=== PATIENT | female | born 1965 | race African-American/Black ===

== ENCOUNTER 2016-08-10 17:11 | Inpatient (IN) | payer MEDICARE, MEDICAID ==
[~2016-08-10] VITALS: Ht 162.6 cm; Wt 46.3 kg
[~2016-08-10 17:11] MED LIST: AZIT600 PO; FLUC100T41 PO; KPHOS250 PO; LEVA750T PO; PROT40TA PO; SULF-154 PO
[2016-08-10 17:13] VITALS: BP 112/65; PULSE 88; RESP 14; TEMP 98.3; O2SAT 96
[2016-08-10] MEDS ORDERED: SODIUM CHLOR 0.9% 1000 ML INJ 1,000 ML IV SCH (19:05)
[2016-08-10] MEDS ORDERED: SODIUM CHLORIDE 0.9% FLUSH 5 ML FLUSH IVF PRN (19:15)
[2016-08-10] MEDS ORDERED: MORPHINE SULFATE 4 MG/ML INJ IV PUSH ONE (19:15)
[2016-08-10] MEDS ORDERED: ONDANSETRON HCL 4 MG/2 ML VIAL IVP ONE (19:15)
--- NOTE | 2016-08-10 19:20 | PD ---
HPI Chief Complaint: Abdominal Pain Time Seen by Provider: 19:00 Travel History International Travel<30 days: No Contact w/Intl Traveler<30days: No Traveled to known affect area: No History of Present Illness HPI The patient is a 51 year old female with a prior medical history of HIV/AIDS who presents to the [facility] emergency department with a history of abdominal pain that began 3 days ago. The patient reports that the abdominal pain is generalized. She reports that it is constant and sharp in character. She denies any alleviating factors. She reports that it seems to be worse with eating. She reports that she's had vomiting times one today. She reports that she's had diarrhea times one today. She denies having any blood in her stool or black or tarry stools. She reports that last time that she tried taking her retroviral medication was a week ago. She reports that she's been on it for the last 3 years, however she has not ever been able to keep it down. She does not know what her last CD4 count or viral load was. She reports that her primary care physician is Dr. Michelle. The patient denies having any known fevers. She reports that she has had a cough productive of black sputum. She reports that she's had chest pain and shortness of breath over the last 3 days. The patient denies any recent fevers fever, neck pain, urinary symptoms, or new neurologic symptoms. [facility] Past Medical History Narrative Medical The patient's past medical history is significant for HIV/AIDS, history of seizure disorder, history of a cerebrovascular accident with reported residual weakness of the right lower extremity, left upper extremity. She reports that she uses a cane for assistance with gait. She has a history of migraine headaches, history of a reported liver infection which she was recently over the last few months placed on antibiotic for. Arthritis: No Asthma: No Autoimmune Disease: Yes Blood Disorders: No Anxiety: No Depression: No Heart Rhythm Problems: No Cancer: No Cardiovascular Problems: No High Cholesterol: No Chemotherapy: No Chest Pain: No Congestive Heart Failure: No COPD: No Cerebrovascular Accident: Yes (cva) Diabetes: No Diminished Hearing: No Endocrine: No Gastrointestinal Disorders: Yes (RECENT ABD PAIN AND NAUSEA/ diarrhea) GERD: No Genitourinary: No Headaches: Yes Hiatal Hernia: No Immune Disorder: Yes (HIV) Kidney Stones: No Musculoskeletal: No Neurologic: Yes Reproductive: No Respiratory: No Migraines: Yes Radiation Therapy: No Renal Failure: No Seizures: Yes Sickle Cell Disease: No Sleep Apnea: No Thyroid Disease: No Ulcer: No Influenza Vaccination: No ?: Not Menopausal: Yes : 2 Para: 0 Miscarriage: 1 : 1 Ectopic : Yes Past Surgical History Narrative Surgical the patient's past surgical history is significant for an ectopic resection. Abdominal Surgery: Yes (EXP. LAP.) AICD: No Arteriovenous Shunt: No Cardiac Surgery: No Section: Yes Ear Surgery: No Endocrine Surgery: No Eye Surgery: No Genitourinary Surgery: No Gynecologic Surgery: Yes Insulin Pump: No Joint Replacement: No Oral Surgery: No Pacemaker: No Thoracic Surgery: No Other Surgery: Yes Social History Alcohol Use: Yes (OCCAS) Tobacco Use: Yes (one pack per week) Substance Use: Yes (COCAINE, ALTHOUGH PT DENIES) Allergies-Medications (Allergen,Severity, Reaction): Coded Allergies: No Known Allergies (Verified , 08/10/16) Reported Meds & Prescriptions Reported Meds & Active Scripts Active No Active Prescriptions or Reported Medications Review of Systems General / Constitutional: No: Fever Eyes: No: Visual changes HENT: No: Headaches Cardiovascular: Positive: Chest Pain or Discomfort, Dyspnea on exertion Respiratory: Positive: Cough, Shortness of Breath Gastrointestinal: Positive: Nausea, Vomiting, Diarrhea, Abdominal Pain, Indigestion, Loss of Appetite Genitourinary: No: Urgency, Frequency, Dysuria Musculoskeletal: No: Pain Skin: No Rash Neurologic: No: Weakness Psychiatric: No: Depression Endocrine: No: Polydipsia Hematologic/Lymphatic: No: Easy Bruising Physical Exam Narrative General: The patient is a well-developed, cachectic appearing female in no acute distress. Head and Neck exam: Head is normocephalic atraumatic. Eyes: Pupils are equal round and reactive to light. Nose: Midline septum with pink mucous membranes Mouth: Dentition unremarkable. Moist mucus membranes. Posterior oropharynx is mildly erythematous. No tonsillar hypertrophy. Uvula midline. Airway patent. The patient's tongue on examination has patchy areas of white, suspicious for thrush Neck: No palpable lymphadenopathy. No nuchal rigidity. No thyromegaly. Cardiovascular: Regular rate and rhythm without murmurs, gallops, or rubs. Lungs: Clear to auscultation bilaterally. No wheezes, rhonchi, or rales. Abdomen: Slightly distended, tender to palpation in all 4 quadrants of abdomen. The patient has no focal area of tenderness. Negative Ferro's sign. Decreased bowel sounds are audible. Extremities: No clubbing, cyanosis, or edema. 2+ pulses in all 4 extremities. No calf tenderness on palpation. Back: No spinous process tenderness to palpation. No costovertebral angle tenderness to palpation. Neurologic Exam: Grossly nonfocal. Skin Exam: No rash noted. Intact skin that is warm and dry. Data Data Last Documented VS Vital Signs Date Time Temp Pulse Resp B/P Pulse Ox O2 Delivery O2 Flow Rate FiO2 08/10/16 20:55 72 18 122/78 99 Room Air 08/10/16 17:13 98.3 Orders Complete Blood Count With Diff (08/10/16 19:05) Comprehensive Metabolic Panel (08/10/16 19:05) Lipase (08/10/16 19:05) Lactic Acid (08/10/16 19:05) Prothrombin Time / Inr (Pt) (08/10/16 19:05) Act Partial Throm Time (Ptt) (08/10/16 19:05) Urinalysis - C+S If Indicated (08/10/16 19:05) Iv Access Insert/Monitor (08/10/16 19:05) Ecg Monitoring (08/10/16 19:05) Oximetry (08/10/16 19:05) Morphine Inj (Morphine Inj) (08/10/16 19:15) Ondansetron Inj (Zofran Inj) (08/10/16 19:15) Sodium Chlor 0.9% 1000 Ml Inj (Ns 1000 M (08/10/16 19:05) Sodium Chloride 0.9% Flush (Ns Flush) (08/10/16 19:15) Electrocardiogram (08/10/16 19:05) Creatine Kinase (Cpk) (08/10/16 19:05) Ckmb (Isoenzyme) Profile (08/10/16 19:05) Troponin I (08/10/16 19:05) B-Type Natriuretic Peptide (08/10/16 19:05) Blood Culture (08/10/16 19:05) C-Reactive Protein (Crp) (08/10/16 19:05) Chest, Single Ap (08/10/16 19:05) Urine Culture (08/10/16 20:18) Ct Abd/Pel W Iv Contrast(Rout) (08/10/16 21:07) Iohexol 350 Inj (Omnipaque 350 Inj) (08/10/16 21:30) Admit Order (Ed Use Only) (08/10/16 22:14) Labs Laboratory Tests Test 08/10/16 08/10/16 19:17 20:18 White Blood Count 5.0 TH/MM3 Red Blood Count 3.35 MIL/MM3 Hemoglobin 11.0 GM/DL Hematocrit 31.6 % Mean Corpuscular Volume 94.3 FL Mean Corpuscular Hemoglobin 32.9 PG Mean Corpuscular Hemoglobin 34.9 % Concent Red Cell Distribution Width 13.8 % Platelet Count 121 TH/MM3 Mean Platelet Volume 10.6 FL Neutrophils (%) (Auto) 81.3 % Lymphocytes (%) (Auto) 7.7 % Monocytes (%) (Auto) 8.0 % Eosinophils (%) (Auto) 2.2 % Basophils (%) (Auto) 0.8 % Neutrophils # (Auto) 4.1 TH/MM3 Lymphocytes # (Auto) 0.4 TH/MM3 Monocytes # (Auto) 0.4 TH/MM3 Eosinophils # (Auto) 0.1 TH/MM3 Basophils # (Auto) 0.0 TH/MM3 CBC Comment DIFF FINAL Differential Comment Prothrombin Time 15.5 SEC Prothromb Time International 1.4 RATIO Ratio Activated Partial 36.3 SEC Thromboplast Time Sodium Level 137 MEQ/L Potassium Level 3.5 MEQ/L Chloride Level 102 MEQ/L Carbon Dioxide Level 29.9 MEQ/L Anion Gap 5 MEQ/L Blood Urea Nitrogen 6 MG/DL Creatinine 0.68 MG/DL Estimat Glomerular Filtration 110 ML/MIN Rate Random Glucose 79 MG/DL Lactic Acid Level 1.6 mmol/L Calcium Level 7.8 MG/DL Total Bilirubin 2.0 MG/DL Aspartate Amino Transf 120 U/L (AST/SGOT) Alanine Aminotransferase 46 U/L (ALT/SGPT) Alkaline Phosphatase 279 U/L Total Creatine Kinase 49 U/L Troponin I LESS THAN 0.02 NG/ML C-Reactive Protein 2.30 MG/DL B-Type Natriuretic Peptide 65 PG/ML Total Protein 8.1 GM/DL Albumin 1.8 GM/DL Lipase 59 U/L Urine Color BROWN Urine Turbidity HAZY Urine pH 6.0 Urine Specific [place] 1.025 Urine Protein 30 mg/dL Urine Glucose (UA) NEG mg/dL Urine Ketones NEG mg/dL Urine Occult Blood NEG Urine Nitrite NEG Urine Bilirubin MOD Urine Urobilinogen GREATER THAN 12.0 MG/DL Urine Leukocyte Esterase SMALL Urine RBC 1 /hpf Urine WBC 8 /hpf Urine Squamous Epithelial 1 /hpf Cells Urine Mucus MANY /lpf Microscopic Urinalysis Comment CATH-CULTURE IND MDM Medical Decision Making Medical Screen Exam Complete: Yes Emergency Medical Condition: Yes Medical Record Reviewed: Yes Interpretation(s) Last Impressions Abdomen/Pelvis CT 08/10/162106 Signed Impressions: Service Date/Time: Wednesday, August 10, 2016 21:23 - CONCLUSION: 1. Moderate ascites with varicosities. 2. Inhomogeneous liver all suggesting cirrhosis. Yosef Puente MD FACR Chest X-Ray 08/10/161904 Signed Impressions: Service Date/Time: Wednesday, August 10, 2016 19:31 - CONCLUSION: Negative chest for acute disease. Yosef Puente MD FACR Differential Diagnosis Acute coronary syndrome, versus electrolyte abnormality, versus dehydration, versus ischemic bowel, versus pancreatitis, versus pyelonephritis, versus pneumonia, versus sepsis Narrative Course During the course of the patients emergency department visit, the patients history, examination, and differential diagnosis were reviewed with the patient. The patient had IV access obtained and blood work sent for analysis. An EKG was done on arrival. The patient states on a skip pitman with oximetry and blood pressure monitoring. The patient had an EKG that shows a sinus rhythm heart rate is 75, no acute ST segment elevation, nonspecific T- wave abnormalities with T waves inverted in V2, V3. The patient was provided normal saline 1 L IV fluid bolus, Zofran 4 mg IV. The patients laboratory studies were reviewed and remarkable for a white count of 5, hemoglobin 11, platelets 121 with 81.3 neutrophils, lymphocytes 7.7., CMP is remarkable for BUN of 6, calcium 7.8, total bilirubin 2.0, AST 120, alkaline phosphatase 279, C-reactive protein is 2.30, lipase 59, BNP is a 65, initial set of cardiac enzymes are negative. Lactic acid level is 1.6. According to the record the patient has a history of elevated liver enzymes in the past, however the only hepatitis testing done previously was negative and 2001. Urinalysis shows brown urine 30 protein and moderate bilirubin greater than 12 urobilinogen, small leukocyte esterase 8 WBCs, many mucus. This is a catheterized urine. Radiology studies were reviewed and remarkable for a chest x-ray that shows no acute abnormality according to the reading radiologist. CT scan of the abdomen and pelvis revealed moderate ascites inhomogeneous liver also suggests cirrhosis. The patient will be admitted to the hospital for a rule out serial cardiac enzyme protocol for chest pain and worsening ascites for consideration of paracentesis. The patients results were discussed with the patient, including the plan of care. I explained that further testing and/ or monitoring is indicated based on the patients history, examination, and/ or laboratory findings. Therefore, I recommended admission for additional evaluation. The patient expressed understanding and was agreeable with this plan. The patient was admitted to the hospital in stable condition and sent to a bed under the care of [facility]. Diagnosis Primary Impression: Chest pain, rule out acute myocardial infarction Additional Impressions: Ascites Qualified Code: R18.8 - Other ascites Abdominal pain Qualified Code: R10.84 - Generalized abdominal pain Scripts No Active Prescriptions or Reported Meds Betty Johnson MD Aug 10, 2016 19:20
[2016-08-10 19:25] VITALS: O2SAT 98
[2016-08-10 19:39] LABS: AUTOMATED NEUTROPHIL # 4.1 TH/MM3 (1.8-7.7); BASOPHIL % 0.8 % (0.0-2.0); EOSINOPHIL # 0.1 TH/MM3 (0-0.4); EOSINOPHIL % 2.2 % (0.0-4.0); HEMATOCRIT 31.6 % (35.0-46.0); HEMO FLAGS DIFF FINAL; LYMPH % 7.7 % (9.0-44.0); LYMPHOCYTE # 0.4 TH/MM3 (1.0-4.8); MEAN CELL VOLUME 94.3 FL (80.0-100.0); MEAN CORPUSCULAR HEMOGLOBIN 32.9 PG (27.0-34.0); MEAN CORPUSCULAR HGB CONC 34.9 % (32.0-36.0); NEUT % 81.3 % (16.0-70.0); PLATELET COUNT 121 TH/MM3 (150-450); RED BLOOD COUNT 3.35 MIL/MM3 (4.00-5.30); RED CELL DISTRIBUTION WIDTH 13.8 % (11.6-17.2)
[2016-08-10 19:53] LABS: APTT (PATIENT) 36.3 SEC (24.3-30.1); INTERNATIONAL NORMALIZED RATIO 1.4 RATIO; PROTHROMBIN TIME - PATIENT 15.5 SEC (9.8-11.6)
[2016-08-10 20:01] LABS: ANION GAP 5 MEQ/L (5-15); AST (GOT) 120 U/L (15-37); BICARBONATE 29.9 MEQ/L (21.0-32.0); BLOOD UREA NITROGEN 6 MG/DL (7-18); CHLORIDE 102 MEQ/L (98-107); GLOMERULAR FILTRATION RATE 110 ML/MIN (>89); POTASSIUM 3.5 MEQ/L (3.5-5.1); SODIUM (NA) 137 MEQ/L (136-145)
--- NOTE | 2016-08-10 20:01 | RADRPT ---
EXAM DATE/TIME: 08/10/2016 19:31 [facility] COMPARISON: CHEST SINGLE AP, April 16, 2014, 16:51. INDICATIONS : Chest pain and abdominal pain. MEDICAL HISTORY : HIV SURGICAL HISTORY : None. ENCOUNTER: Initial ACUITY: 2 days PAIN SCORE: 7/10 LOCATION: Bilateral chest FINDINGS: There is an apparent nipple shadow in the right base. The left lung is clear. Heart and pulmonary v ascularity are normal. Portions of the bony skeleton visualized are unremarkable. CONCLUSION: Negative chest for acute disease. Yosef Puente MD FACR on August 10, 2016 at 19:42 Board Certified Radiologist. This report was verified electronically.
[2016-08-10 20:06] LABS: ALKALINE PHOSPHATASE 279 U/L (45-117); ALT (GPT) 46 U/L (10-53)
[2016-08-10 20:11] LABS: CREATINE KINASE 49 U/L (26-192)
[2016-08-10 20:36] LABS: BLOOD, URINE NEG (NEG); GLUCOSE,URINE NEG (NEG); KETONE, URINE NEG (NEG); MUCUS URINE MANY /lpf (OCC); NITRITE,URINE NEG (NEG); SQUAMOUS EPITHELIAL CELL URINE 1 /hpf (0-5)
[2016-08-10 20:38] LABS: URINE COLOR BROWN (YELLW/STRAW)
[2016-08-10 20:39] LABS: COMMENT (UR) CATH-CULTURE IND; CULTURE IF INDICATED CATH CULTURE IND
[2016-08-10 20:55] VITALS: BP 122/78; PULSE 72; RESP 18; O2SAT 99
[2016-08-10] MEDS ORDERED: IOHEXOL 350 MG/ML 10 ML VIAL (for RAD DIAG) IV ONE (21:30)
--- NOTE | 2016-08-10 21:56 | RADRPT ---
EXAM DATE/TIME: 08/10/2016 21:23 [facility] COMPARISON: CT ABDOMEN & PELVIS W CONTRAST, January 01, 2016, 14:09. INDICATIONS : Diffuse abdominal pain with nausea and vomiting. IV CONTRAST: 80 cc Omnipaque 350 (iohexol) IV ORAL CONTRAST: No oral contrast ingested. RADIATION DOSE: 9.96 CTDIvol (mGy) MEDICAL HISTORY : Ectopic . SURGICAL HISTORY : section. Exploratory laparotomy. ENCOUNTER: Initial ACUITY: 3 days PAIN SCALE: 7/10 LOCATION: Diffuse abdomen/pelvis TECHNIQUE: Volumetric scanning of the abdomen and pelvis was performed. Using automated exposure control and adjustment of the mA and/or kV according to patient size, radiation dose was kept as low as reasonably achievable to obtain optimal diagnostic quality images. FINDINGS: Minimal bibasilar parenchymal changes are noted worse on the left than the right with a small left pleural effusion. The liver is inhomogeneous. Gallstone is present in the gallbladder. Spleen is unremarkable. Abdom inal wall varicosities are evident. There is symmetrical renal function. Moderate ascites is evident. In the pelvis, pelvic contents are unremarkable. CONCLUSION: 1. Moderate ascites with varicosities. 2. Inhomogeneous liver all suggesting cirrhosis. Yosef Puente MD FACR on August 10, 2016 at 21:39 Board Certified Radiologist. This report was verified electronically.
[2016-08-10] MEDS ORDERED: SODIUM CHLORIDE 0.9% FLUSH 5 ML FLUSH FLUSH PRN (22:45)
[2016-08-10] MEDS ORDERED: CALCIUM GLUCONATE 10% 1 GM/10 ML VIAL IV PUSH ONE (22:45)
[2016-08-10] MEDS ORDERED: POTASSIUM CHLORIDE 25 MEQ EFFERVESCENT TAB PO ONE (22:45)
[2016-08-10] MEDS ORDERED: NALOXONE HCL 0.4 MG/ML AMP IV PRN (22:45)
[2016-08-10] MEDS ORDERED: CALCIUM GLUCONATE INJ 1 GM in DEXTROSE 5% IN WATER 100ML INJ 100 ML IV ONE ×2 (22:46)
[2016-08-10 23:24] VITALS: BP 131/77; PULSE 71; RESP 14; O2SAT 97
[2016-08-11 01:47] VITALS: BP 103/64; PULSE 73; RESP 18; TEMP 98.1; O2SAT 96
[2016-08-11 01:48] LABS: CREATINE KINASE 49 U/L (26-192)
[2016-08-11 01:53] VITALS: PULSE 78
[2016-08-11 07:23] LABS: BASOPHIL % 0.8 % (0.0-2.0); EOSINOPHIL # 0.2 TH/MM3 (0-0.4); EOSINOPHIL % 3.6 % (0.0-4.0); HEMATOCRIT 26.6 % (35.0-46.0); LYMPHOCYTE # 0.5 TH/MM3 (1.0-4.8); MEAN CELL VOLUME 95.7 FL (80.0-100.0); MEAN CORPUSCULAR HEMOGLOBIN 32.5 PG (27.0-34.0); MONO % 10.3 % (0.0-8.0); NEUT % 76.3 % (16.0-70.0); PLATELET COUNT 91 TH/MM3 (150-450); RED BLOOD COUNT 2.78 MIL/MM3 (4.00-5.30); RED CELL DISTRIBUTION WIDTH 13.8 % (11.6-17.2); WHITE BLOOD COUNT 5.3 TH/MM3 (4.0-11.0)
[2016-08-11 07:24] VITALS: BP 105/66; PULSE 81; RESP 18; TEMP 98.9; O2SAT 98
[2016-08-11 07:28] LABS: HEMO FLAGS AUTO DIFF
[2016-08-11 08:00] VITALS: PULSE 82
[2016-08-11 08:00] LABS: CREATINE KINASE 38 U/L (26-192)
[2016-08-11 08:48] LABS: SCAN/DIFF AUTO DIFF CONFIRMED
[2016-08-11 08:49] LABS: PLATELET ESTIMATE SMEAR LOW (NORMAL); PLATELET MORPHOLOGY NORMAL (NORMAL); TARGET CELLS 1+ (NORMAL)
[2016-08-11] MEDS: SODIUM CHLORIDE 0.9% FLUSH 5 ML FLUSH FLUSH SCH ×2 (09:11→21:46)
[2016-08-11] MEDS: PANTOPRAZOLE SODIUM 40 MG VIAL IV PUSH SCH (09:11)
[2016-08-11] MEDS ORDERED: diphenhydrAMINE HCL 25 MG CAP PO ONE (11:15)
[2016-08-11] MEDS ORDERED: ONDANSETRON HCL 4 MG/2 ML VIAL IV PUSH PRN (11:15)
--- NOTE | 2016-08-11 11:15 | HHI.HP ---
HPI Service [facility] Primary Care Physician Jeremiah Garcia MD Admission Diagnosis Abdominal pain with ascites, cp ro mi Diagnoses: Chief Complaint: Abdominal pain Travel History International Travel<30 Days: No Contact w/Intl Traveler <30 Da: No Traveled to Known Affected Are: No History of Present Illness 51-year-old female with a past medical history of HIV and GERD who presented with 4 days of abdominal pain. The patient reports that she began having generalized abdominal pain or days ago. She was having vomiting 4 days ago and has not been able to tolerate oral intake or medications since then due to persistent nausea. She had loose stools 3 days ago, no BM since then. Subjective chills, no fevers. She had some lower middle chest discomfort when she was vomiting 4 days ago, no chest pain since then. Denies any shortness of breath. She reports itching on her back. She states a few weeks ago she saw her PCP, Dr. Garcia, who told her that she had a liver infection and gave her a pill, doesn't recall what it was. She denies any history of hepatitis. She is not a great historian. Review of Systems ROS Limitations: Poor Historian Other History limited by poor historian. However 10 point review of systems performed and was negative except as stated in the history of present illness. Past Family Social History Past Medical History HIV Gastritis Past Surgical History History of ex lap for tubal 20 years ago Reported Medications Antiretrovirals Allergies: Coded Allergies: No Known Allergies (Verified , 08/10/16) Active Ordered Medications Current Medications Medications (Trade) Dose Ordered Sig/Sue Route Start Time Stop Time Status Last Admin (NS Flush) 2 ml UNSCH PRN FLUSH 08/10/16 22:45 (NS Flush) 2 ml BID FLUSH 08/11/16 09:00 08/11/16 09:11 (Narcan Inj) 0.4 mg UNSCH PRN IV 08/10/16 22:45 (Protonix Inj) 40 mg Q24H IV PUSH 08/11/16 08:00 08/11/16 09:11 (Zofran Inj) 4 mg Q6HR PRN IV PUSH 08/11/16 11:15 UNV (Benadryl) 25 mg ONCE ONCE PO 08/11/16 11:15 08/11/16 11:16 UNV (Benadryl) 25 mg Q6H PRN PO 08/11/16 11:15 UNV Nicotine 1 patch 1 patch DAILY TD 08/11/16 11:15 UNV (D5-1/2 NS + KCl 20 Meq Inj) 1,000 ml @ 50 mls/hr Q20H IV 08/11/16 12:09 UNV Family History Mother of alcoholism Social History Occasional tobacco use Occasional alcohol use Denies any substance use Physical Exam Vital Signs Vital Signs Date Time Temp Pulse Resp B/P Pulse Ox O2 Delivery O2 Flow Rate FiO2 08/11/16 08:00 82 08/11/16 07:24 98.9 81 18 105/66 98 08/11/16 01:53 78 08/11/16 01:47 98.1 73 18 103/64 96 08/10/16 23:25 14 08/10/16 23:24 71 14 131/77 97 Room Air 08/10/16 20:55 72 18 122/78 99 Room Air 08/10/16 19:25 98 Room Air 08/10/16 17:13 98.3 88 14 112/65 96 Room Air Physical Exam GENERAL: Well-developed thin cachectic patient. In no acute distress. SKIN: Warm and dry. Excoriations on the back and shoulders. HEENT: Normocephalic. Pupils equal and round. Mucous membranes pink and moist. CARDIOVASCULAR: Regular rate and rhythm. No murmur appreciated. RESPIRATORY: No accessory muscle use. Clear to auscultation. Breath sounds equal bilaterally. GASTROINTESTINAL: Abdomen soft, non-tender, mildly distended. Bowel sounds x4. MUSCULOSKELETAL: No obvious deformities. No clubbing or cyanosis. No edema. NEUROLOGICAL: Awake and alert. No focal neurological deficits. Moves upper and lower extremities spontaneously. Normal speech. PSYCHIATRIC: Appropriate mood and affect; insight and judgment fair to normal. Laboratory Laboratory Tests Test 08/10/16 08/10/16 08/11/16 08/11/16 19:17 20:18 00:18 07:06 White Blood Count 5.0 5.3 Red Blood Count 3.35 2.78 Hemoglobin 11.0 9.1 Hematocrit 31.6 26.6 Mean Corpuscular Volume 94.3 95.7 Mean Corpuscular Hemoglobin 32.9 32.5 Mean Corpuscular Hemoglobin 34.9 34.0 Concent Red Cell Distribution Width 13.8 13.8 Platelet Count 121 91 Mean Platelet Volume 10.6 9.5 Neutrophils (%) (Auto) 81.3 76.3 Lymphocytes (%) (Auto) 7.7 9.0 Monocytes (%) (Auto) 8.0 10.3 Eosinophils (%) (Auto) 2.2 3.6 Basophils (%) (Auto) 0.8 0.8 Neutrophils # (Auto) 4.1 4.0 Lymphocytes # (Auto) 0.4 0.5 Monocytes # (Auto) 0.4 0.5 Eosinophils # (Auto) 0.1 0.2 Basophils # (Auto) 0.0 0.0 CBC Comment DIFF FINAL AUTO DIFF Differential Comment AUTO DIFF CONFIRMED Prothrombin Time 15.5 Prothromb Time International 1.4 Ratio Activated Partial 36.3 Thromboplast Time Sodium Level 137 Potassium Level 3.5 Chloride Level 102 Carbon Dioxide Level 29.9 Anion Gap 5 Blood Urea Nitrogen 6 Creatinine 0.68 Estimat Glomerular Filtration 110 Rate Random Glucose 79 Lactic Acid Level 1.6 Calcium Level 7.8 Total Bilirubin 2.0 Aspartate Amino Transf 120 (AST/SGOT) Alanine Aminotransferase 46 (ALT/SGPT) Alkaline Phosphatase 279 Total Creatine Kinase 49 49 38 Troponin I LESS THAN 0.02 LESS THAN 0.02 LESS THAN 0.02 C-Reactive Protein 2.30 B-Type Natriuretic Peptide 65 Total Protein 8.1 Albumin 1.8 Lipase 59 Urine Color BROWN Urine Turbidity HAZY Urine pH 6.0 Urine Specific [place] 1.025 Urine Protein 30 Urine Glucose (UA) NEG Urine Ketones NEG Urine Occult Blood NEG Urine Nitrite NEG Urine Bilirubin MOD Urine Urobilinogen GREATER THAN 12.0 Urine Leukocyte Esterase SMALL Urine RBC 1 Urine WBC 8 Urine Squamous Epithelial 1 Cells Urine Mucus MANY Microscopic Urinalysis Comment CATH-CULTURE IND Platelet Estimate LOW Platelet Morphology Comment NORMAL Target Cells 1+ Date/Time Procedure Status Source Growth 08/10/16 20:18 Urine Culture Received Urine Catheterized Urine Pending 08/10/16 19:17 Aerobic Blood Culture Received Blood Peripheral Pending 08/10/16 19:17 Anaerobic Blood Culture Received Blood Peripheral Pending Result Diagram: 08/11/16 0706 08/10/16 1917 Imaging Last Impressions Abdomen/Pelvis CT 08/10/162106 Signed Impressions: Service Date/Time: Wednesday, August 10, 2016 21:23 - CONCLUSION: 1. Moderate ascites with varicosities. 2. Inhomogeneous liver all suggesting cirrhosis. Yosef Puente MD FACR Chest X-Ray 08/10/161904 Signed Impressions: Service Date/Time: Wednesday, August 10, 2016 19:31 - CONCLUSION: Negative chest for acute disease. Yosef Puente MD FACR Assessment and Plan Problem List: (1) HIV (human immunodeficiency virus infection) ICD Code: Z21 Status: Chronic (2) Severe protein-calorie malnutrition ICD Code: E43 Status: Chronic (3) Chronic gastritis ICD Code: K29.50 Status: Chronic (4) Abdominal pain ICD Code: R10.9 Status: Acute Assessment and Plan 51-year-old female with a past medical history of HIV and GERD who presented with 4 days of abdominal pain Abdominal pain: Abdomen pelvis CT showed moderate ascites with varus varicosities and inhomogenous liver Labs showed bilirubin 2.0, AST 120, alkaline phosphatase 279 -Check ultrasound to assess for drainable ascites, IR consult for diagnostic and therapeutic tap if possible -Hepatitis panel pending, previously negative -Empiric coverage for SBP with IV ceftriaxone -Previous EGD pathology reviewed, showed chronic gastritis, IV PPI -IVF until tolerating intake better, antiemetics as needed -Consult GI -Follow up CMP ordered Atypical chest pain: Occurred 4 days ago with retching. EKG reviewed with no acute changes. Troponin negative 3. ACS ruled out per protocol. HIV: Previous CD4 count from 01/05/16 less than 20. Reconcile and resume home HAART and prophylactic medications. Tobacco abuse: Counseled on cessation. Nicotine patch. Itching: Benadryl as needed Hypocalcemia: Received IV calcium gluconate in the ED. Follow up CMP. Severe protein calorie malnutrition: BMI 15 and albumin 1.8. Add ensure to meals. DVT prophylaxis: SCDs Discussed Condition With Patient, Dr. Brooke, GI Attending Statement The exam, history, and the medical decision-making described in the above note were completed with the assistance of the mid-level provider. I reviewed and agree with the findings presented. I attest that I had a [id number] encounter with the patient on the same day, and personally performed and documented my assessment and findings in the medical record. Problem Qualifiers (1) Abdominal pain: Qualified Code: R10.84 - Generalized abdominal pain Gutierrez Maurice Aug 11, 2016 11:15 Julius Brooke MD Aug 30, 2016 03:22
[2016-08-11] MEDS: D5-1/2 NS + KCL 20 MEQ INJ 1,000 ML IV SCH (11:34)
[2016-08-11] MEDS: NICOTINE 14 MG/24 HR PATCH TD SCH (11:34)
[2016-08-11 11:59] VITALS: BP 103/68; PULSE 74; RESP 18; TEMP 97.9; O2SAT 93
--- NOTE | 2016-08-11 12:15 | RADRPT ---
EXAM DATE/TIME: 08/11/2016 11:47 [facility] COMPARISON: No previous studies available for comparison. INDICATIONS : Ascites. MEDICAL HISTORY : CVA. Seizures. Migraine. Substance use. Liver disease. Ectopic . SURGICAL HISTORY : section. Exploratory laparoscopy. ENCOUNTER: Initial ACUITY: 4-6 days PAIN SCORE: 3/10 LOCATION: Bilateral lower quadrant AREA EVALUATED: Abdomen. FINDINGS: Imaging of the abdomen and pelvis was performed to evaluate for ascites for possible paracentesis. T he imaged portion of the liver demonstrates small size, heterogeneous echotexture and nodular contour consistent with cirrhosis. There is a large amount of fluid identified within the right upper quadra nt and within the midline pelvis. Decrease amount of free fluid are identified within the left upper quadrant and left lower quadrant. CONCLUSION: Cirrhotic appearing liver with a large amount of free fluid seen predominantly within the right upper quadrant and within the midline pelvis. Christiana Dash MD on August 11, 2016 at 12:12 Board Certified Radiologist. This report was verified electronically.
[2016-08-11] MEDS: cefTRIAXone INJ 1,000 MG in SODIUM CHLORIDE 0.9% INJ 100 ML IV SCH (12:55)
[2016-08-11 13:32] LABS: ALKALINE PHOSPHATASE 221 U/L (45-117); ALT (GPT) 36 U/L (10-53); ANION GAP 7 MEQ/L (5-15); AST (GOT) 100 U/L (15-37); BICARBONATE 25.9 MEQ/L (21.0-32.0); BLOOD UREA NITROGEN 5 MG/DL (7-18); CHLORIDE 109 MEQ/L (98-107); GLOMERULAR FILTRATION RATE 118 ML/MIN (>89); POTASSIUM 4.3 MEQ/L (3.5-5.1); SODIUM (NA) 142 MEQ/L (136-145); TOTAL BILIRUBIN ADULT 1.5 MG/DL (0.2-1.0)
--- NOTE | 2016-08-11 16:50 | PD.CONS ---
HPI History of Present Illness This is a 51 year old female patient with a hx of HIV, elevated LFTs, Esophageal stricture/Schatzki's ring, and colitis who came to the ER for evaluation of a 4 day history of abdominal pain. She states that she started having abdominal pain about 5 days ago. This is a diffuse abdominal pain that is both a dull ache and sharp at times. She states that the pain is constant and radiates to her sides and her back. She has associated abdominal distention. She had some nausea and vomiting with bilious material prior to coming to the hospital, but states she hasn't had any further episodes since she has been here. She has chills without fevers. The pain is not related to food intake. She states she is tolerating her diet okay, but if the pills are too big, they will get caught in her upper esophagus. She reports that her appetite is okay, but she has about 40 lbs over the past 3 months. She states that she usually has one loose stool per day, without blood or mucous. Abdomen/ Pelvis CT (08/10/16) revealed 1. Moderate ascites with varicosities. 2. Inhomogeneous liver all suggesting cirrhosis. Abdomen Ultrasound (08/11/16)----> Cirrhotic appearing liver with a large amount of free fluid seen predominantly within the right upper quadrant and within the midline pelvis. She was told 2 weeks ago as an outpatient that she had liver disease, but states she was never told in the past that she had liver cirrhosis. She hasn't had alcohol any about 5 days, but was drinking a 4 pack per day prior to that. She does use cocaine at times to help with the pain. She was hospitalized in December of 2015 with complaints of nausea/vomiting/diarrhea. CT at that time revealed mild diffuse gallbladder wall thickening with pericholecystic fluid, enlarged fatty liver, mild questionable wall thickening involving the ascending colon. She was evaluated by HIDA scan which was negative and also general surgery at that time, who did not feel that this was cholecystitis. She was also evaluated with EGD/Colonoscopy (01/05/16)---> normal duodenum, gastritis in the antrum, stricture/Schatzki's ring distal esophagus status post dilatation 14 savory guidewire, hiatal hernia, 2 diminutive polyps in cecum 5 mm and 6 mm each, cold biopsy with complete removal, 2 polyps at hepatic flexure 6 mm each cold biopsy with complete removal, no normal colon otherwise random biopsies of the ascending and descending colon, medium internal hemorrhoids, decreased sphincter tone. Pathology revealed small intestinal mucosa without significant histopathologic abnormality, severe chronic gastritis, negative for helicobacter pylori, adenomatous polyp at hepatic flexure, colonic mucosa without significant histopathologic abnormality in ascending and descending colon, and adenomatous polyp at the cecum. Of note, she was also found to have elevated LFTs at that time and evaluated with Hepatitis panel and ZAYRA which were both negative. She was diagnosed with HIV 4 years ago, but has not been taking her medications because they are "too big to swallow." (Sil Ash) PFSH Past Medical History HIV Hx elevated LFTs Esophageal stricture/Schatzki's ring Adenomatous polyps Past Surgical History History of ex lap for tubal 20 years ago EGD/Colonoscopy (Sil Ash) Coded Allergies: No Known Allergies (Verified , 08/10/16) Medications Allergies Coded Allergies Type Severity Reaction Last Updated Verified No Known Allergies 08/10/16 Yes Active Scripts Medications Dose Route/Sig Days Date Category No Active Prescriptions or Reported Medications Rx Family History Mother of alcoholism Social History Occasional tobacco use Occasional alcohol use Denies any substance use (Sil Ash) Review of Systems Constitutional: COMPLAINS OF: Weight loss, Chills, DENIES: Fever, Change in appetite Respiratory: COMPLAINS OF: Cough, Shortness of breath Cardiovascular: DENIES: Chest pain Gastrointestinal: COMPLAINS OF: Abdominal pain, Diarrhea (loose stools once a day), Nausea, Vomiting, Swelling of Abdomen, DENIES: Black stools, Bloody stools, Constipation, Heartburn, Hematemesis Musculoskeletal: COMPLAINS OF: Back pain, DENIES: Joint pain Integumentary: DENIES: Abnormal pigmentation Hematologic/lymphatic: DENIES: Bruising Neurologic: COMPLAINS OF: Headache Psychiatric: DENIES: Confusion (Sil Ash) GI Exam Vitals I&O Vital Signs Date Time Temp Pulse Resp B/P Pulse Ox O2 Delivery O2 Flow Rate FiO2 08/11/16 11:59 97.9 74 18 103/68 93 08/11/16 08:00 82 08/11/16 07:24 98.9 81 18 105/66 98 08/11/16 01:53 78 08/11/16 01:47 98.1 73 18 103/64 96 08/10/16 23:25 14 08/10/16 23:24 71 14 131/77 97 Room Air 08/10/16 20:55 72 18 122/78 99 Room Air 08/10/16 19:25 98 Room Air 08/10/16 17:13 98.3 88 14 112/65 96 Room Air Imaging Last Impressions Abdomen Ultrasound 08/11/16 0000 Signed Impressions: Service Date/Time: Thursday, August 11, 2016 11:47 - CONCLUSION: Cirrhotic appearing liver with a large amount of free fluid seen predominantly within the right upper quadrant and within the midline pelvis. Christiana Dash MD Abdomen/Pelvis CT [id number] Signed Impressions: Service Date/Time: Wednesday, August 10, 2016 21:23 - CONCLUSION: 1. Moderate ascites with varicosities. 2. Inhomogeneous liver all suggesting cirrhosis. Yosef Puente MD FACR Chest X-Ray [id number] Signed Impressions: Service Date/Time: Wednesday, August 10, 2016 19:31 - CONCLUSION: Negative chest for acute disease. Yosef Puente MD FACR Laboratory Test 08/10/16 08/10/16 08/10/16 08/11/16 19:17 20:18 23:16 00:18 White Blood Count 5.0 TH/MM3 Red Blood Count 3.35 MIL/MM3 Hemoglobin 11.0 GM/DL Hematocrit 31.6 % Mean Corpuscular Volume 94.3 FL Mean Corpuscular Hemoglobin 32.9 PG Mean Corpuscular Hemoglobin 34.9 % Concent Red Cell Distribution Width 13.8 % Platelet Count 121 TH/MM3 Mean Platelet Volume 10.6 FL Neutrophils (%) (Auto) 81.3 % Lymphocytes (%) (Auto) 7.7 % Monocytes (%) (Auto) 8.0 % Eosinophils (%) (Auto) 2.2 % Basophils (%) (Auto) 0.8 % Neutrophils # (Auto) 4.1 TH/MM3 Lymphocytes # (Auto) 0.4 TH/MM3 Monocytes # (Auto) 0.4 TH/MM3 Eosinophils # (Auto) 0.1 TH/MM3 Basophils # (Auto) 0.0 TH/MM3 CBC Comment DIFF FINAL Differential Comment Prothrombin Time 15.5 SEC Prothromb Time International 1.4 RATIO Ratio Activated Partial 36.3 SEC Thromboplast Time Sodium Level 137 MEQ/L Potassium Level 3.5 MEQ/L Chloride Level 102 MEQ/L Carbon Dioxide Level 29.9 MEQ/L Anion Gap 5 MEQ/L Blood Urea Nitrogen 6 MG/DL Creatinine 0.68 MG/DL Estimat Glomerular Filtration 110 ML/MIN Rate Random Glucose 79 MG/DL Lactic Acid Level 1.6 mmol/L Calcium Level 7.8 MG/DL Total Bilirubin 2.0 MG/DL Aspartate Amino Transf 120 U/L (AST/SGOT) Alanine Aminotransferase 46 U/L (ALT/SGPT) Alkaline Phosphatase 279 U/L Total Creatine Kinase 49 U/L 49 U/L Troponin I LESS THAN 0.02 LESS THAN 0.02 NG/ML NG/ML C-Reactive Protein 2.30 MG/DL B-Type Natriuretic Peptide 65 PG/ML Total Protein 8.1 GM/DL Albumin 1.8 GM/DL Lipase 59 U/L Urine Color BROWN Urine Turbidity HAZY Urine pH 6.0 Urine Specific Williams 1.025 Urine Protein 30 mg/dL Urine Glucose (UA) NEG mg/dL Urine Ketones NEG mg/dL Urine Occult Blood NEG Urine Nitrite NEG Urine Bilirubin MOD Urine Urobilinogen GREATER THAN 12.0 MG/DL Urine Leukocyte Esterase SMALL Urine RBC 1 /hpf Urine WBC 8 /hpf Urine Squamous Epithelial 1 /hpf Cells Urine Mucus MANY /lpf Microscopic Urinalysis Comment CATH-CULTURE IND Hepatitis A IgM Antibody NEGATIVE Hepatitis B Surface Antigen NEGATIVE Hepatitis B Core IgM Antibody NEGATIVE Hepatitis C Antibody NEGATIVE Test 08/11/16 07:06 White Blood Count 5.3 TH/MM3 Red Blood Count 2.78 MIL/MM3 Hemoglobin 9.1 GM/DL Hematocrit 26.6 % Mean Corpuscular Volume 95.7 FL Mean Corpuscular Hemoglobin 32.5 PG Mean Corpuscular Hemoglobin 34.0 % Concent Red Cell Distribution Width 13.8 % Platelet Count 91 TH/MM3 Mean Platelet Volume 9.5 FL Neutrophils (%) (Auto) 76.3 % Lymphocytes (%) (Auto) 9.0 % Monocytes (%) (Auto) 10.3 % Eosinophils (%) (Auto) 3.6 % Basophils (%) (Auto) 0.8 % Neutrophils # (Auto) 4.0 TH/MM3 Lymphocytes # (Auto) 0.5 TH/MM3 Monocytes # (Auto) 0.5 TH/MM3 Eosinophils # (Auto) 0.2 TH/MM3 Basophils # (Auto) 0.0 TH/MM3 CBC Comment AUTO DIFF Differential Comment AUTO DIFF CONFIRMED Platelet Estimate LOW Platelet Morphology Comment NORMAL Target Cells 1+ Sodium Level 142 MEQ/L Potassium Level 4.3 MEQ/L Chloride Level 109 MEQ/L Carbon Dioxide Level 25.9 MEQ/L Anion Gap 7 MEQ/L Blood Urea Nitrogen 5 MG/DL Creatinine 0.64 MG/DL Estimat Glomerular Filtration 118 ML/MIN Rate Random Glucose 75 MG/DL Calcium Level 7.8 MG/DL Total Bilirubin 1.5 MG/DL Aspartate Amino Transf 100 U/L (AST/SGOT) Alanine Aminotransferase 36 U/L (ALT/SGPT) Alkaline Phosphatase 221 U/L Total Creatine Kinase 38 U/L Troponin I LESS THAN 0.02 NG/ML Total Protein 6.4 GM/DL Albumin 1.4 GM/DL Lipase 89 U/L Date/Time Procedure Status Source Growth 08/10/16 20:18 Urine Culture Received Urine Catheterized Urine Pending 08/10/16 19:17 Aerobic Blood Culture - Preliminary Resulted Blood Peripheral NO GROWTH IN 1 DAY 08/10/16 19:17 Anaerobic Blood Culture - Preliminary Resulted Blood Peripheral NO GROWTH IN 1 DAY Physical Examination HEENT: Normocephalic; atraumatic; no jaundice. Throat is clear. NECK: Neck is supple, no JVD, no lymphadenopathy. CHEST: CTA CARDIAC: RRR. ABDOMEN: Soft, distended with ascites, mild diffuse tenderness;bowel sounds are present in all four quadrants. EXTREMITIES: No clubbing, cyanosis, or edema. SKIN: Normal; no rash; no jaundice. ART LIBRARIAN: No focal deficits; alert and oriented times three. (Sil Ash) Assessment and Plan Plan ASSESSMENT: - Abdominal pain x 5 days with associated distention. She has moderate distention with ascites on exam. Abdomen/Pelvis CT (08/10/16) revealed 1. Moderate ascites with varicosities. 2. Inhomogeneous liver all suggesting cirrhosis. Abdomen Ultrasound (08/11/16)----> Cirrhotic appearing liver with a large amount of free fluid seen predominantly within the right upper quadrant and within the midline pelvis. Her pain is not related to food intake. She does report that she has had chills, no fevers. An episode of n /v prior to coming to the hospital. EGD/Colonoscopy (01/05/16)---> normal duodenum, gastritis in the antrum, stricture/Schatzki's ring distal esophagus status post dilatation 14 savory guidewire, hiatal hernia, 2 diminutive polyps in cecum 5 mm and 6 mm each, cold biopsy with complete removal, 2 polyps at hepatic flexure 6 mm each cold biopsy with complete removal, no normal colon otherwise random biopsies of the ascending and descending colon, medium internal hemorrhoids, decreased sphincter tone. Pathology revealed small intestinal mucosa without significant histopathologic abnormality, severe chronic gastritis, negative for helicobacter pylori, adenomatous polyp at hepatic flexure, colonic mucosa without significant histopathologic abnormality in ascending and descending colon, and adenomatous polyp at the cecum. ? pain possibly related to new onset ascites. - New onset ascites with large amount of free fluid seen predominantly within the right upper quadrant and within the midline pelvis. On Ceftriaxone - Dysphagia, with hx of esophagel stricture/schatzki's ring. States she did have improvement after her last EGD with dilatation in December of 2015. - Elevated LFTs, Liver cirrhosis. New dx. Abdomen/Pelvis CT (08/10/16) revealed 1. Moderate ascites with varicosities. 2. Inhomogeneous liver all suggesting cirrhosis. Abdomen Ultrasound (08/11/16)----> Cirrhotic appearing liver with a large amount of free fluid seen predominantly within the right upper quadrant and within the midline pelvis. She was told that she had liver disease 2 weeks ago as outpatient but denies ever being told that she had liver cirrhosis. She was worked up in December of 2015 for elevated LFTs. At that time, she had some mild diffuse gallbladder wall thickening with pericholecystic fluid, enlarged fatty liver, mild questionable wall thickening involving the ascending colon. She was evaluated by HIDA scan which was negative and also general surgery at that time, who did not feel that this was cholecystitis. Hepatitis and ZAYRA was negative. She continues to drink ETOH and uses Cocaine at times for pain control. T. Bili 0.5, AST 72, ALT 39, Alk Phosph 128. - Abnormal weight loss 40lbs over 3 months - HIV, She was diagnosed with HIV 4 years ago, but has not been taking her medications because they are "too big to swallow." - Anemia. 9.1/26.6. - Coagulopathy/Thrombocytopenia. Plt 91. - MADELINE, Hypokalemia per primary PLAN: - Low sodium diet - US guided paracentesis, diagnostic/therapeutic - Cont. Ceftriaxone. - Add Protonix - ASMA, AMA - AFP level - Ferritin, Iron Saturation - Ceruloplasmin, Alpha 1 Antitrypsin - CBC, CMP in am - Supportive care - Consider EGD with dilatation - Consider diuretics once renal function improves - Needs ETOH/Cocaine Cessation - Further recommendations to follow based on results of above - Pt seen and examined by Dr. Werner and myself and this note is written on his behalf (Sil Ash) Physician Comments Seen and examined with Ms. Mihir BAKER, [facility]. egd on tuesday. Will follow, thank you (Liberty Werner MD) Sil Ash Aug 11, 2016 16:50 Liberty Werner MD Aug 12, 2016 16:26
[2016-08-11 18:49] LABS: FERRITIN 718 NG/ML (8-252); TRANSFERRIN IRON PROFILE 54 MG/DL (200-360)
[2016-08-11] MEDS ORDERED: HYDR-3366 PO (18:54)
[2016-08-11] MEDS ORDERED: MULT1CHW33 CHEW (18:54)
[2016-08-11] MEDS ORDERED: LOMO2.5T PO (18:54)
[2016-08-11] MEDS ORDERED: ZOLP5TAB3 PO (18:54)
--- NOTE | 2016-08-11 19:43 | EKG ---
Date Performed: 08/11/2016 Time Performed: 06:43:06 PTAGE: 51 years EKG: Sinus rhythm LOW QRS VOLTAGE IN EXTREMITY LEADS BORDERLINE ECG PREVIOUS TRACING : 08/11/2016 01.03 Compared to prior tracing no significant change DOCTOR: Saji Snider Interpretating Date/Time 08/11/2016 19:42:53
--- NOTE | 2016-08-11 19:55 | EKG ---
Date Performed: 08/11/2016 Time Performed: 01:03:14 PTAGE: 51 years EKG: Sinus rhythm LOW QRS VOLTAGE IN EXTREMITY LEADS NONSPECIFIC T WAVE CHANGES BORDERLINE ECG PREVIOUS TRACING : 08/10/2016 19.35 Compared to prior tracing no significant change DOCTOR: Saji Snider Interpretating Date/Time 08/11/2016 19:55:07
--- NOTE | 2016-08-11 20:16 | EKG ---
Date Performed: 08/10/2016 Time Performed: 19:35:35 PTAGE: 51 years EKG: Sinus rhythm SEPTAL Q WAVES ABNORMAL ECG PREVIOUS TRACING : 01/16/2016 12.53 Compared to prior tracing no significant change DOCTOR: Saji Snider Interpretating Date/Time 08/11/2016 20:14:16
[2016-08-11] MEDS: REMOVE OLD NICODERM (NICOTINE) PATCH TD SCH (21:00)
[2016-08-11 21:13] VITALS: BP 106/69; PULSE 88; RESP 18; TEMP 98.7; O2SAT 98
[2016-08-11] MEDS ORDERED: MORPHINE SULFATE 4 MG/ML INJ IV PUSH ONE (21:30)
[2016-08-12] VITALS (9 sets, daily range): BP systolic 108–157; BP diastolic 68–93; PULSE 77–94; RESP 18; TEMP 97.9–99.8; O2SAT 93–99
[2016-08-12] MEDS: cefTRIAXone INJ 1,000 MG in SODIUM CHLORIDE 0.9% INJ 100 ML IV SCH ×2 (01:56→12:27)
[2016-08-12 06:41] LABS: INTERNATIONAL NORMALIZED RATIO 1.3 RATIO; PROTHROMBIN TIME - PATIENT 14.7 SEC (9.8-11.6)
[2016-08-12 06:54] LABS: ALKALINE PHOSPHATASE 219 U/L (45-117); ALT (GPT) 38 U/L (10-53); ANION GAP 8 MEQ/L (5-15); AST (GOT) 100 U/L (15-37); AUTOMATED NEUTROPHIL # 3.7 TH/MM3 (1.8-7.7); BASOPHIL % 0.6 % (0.0-2.0); BICARBONATE 24.4 MEQ/L (21.0-32.0); BLOOD UREA NITROGEN 5 MG/DL (7-18); CHLORIDE 107 MEQ/L (98-107); EOSINOPHIL # 0.2 TH/MM3 (0-0.4); EOSINOPHIL % 3.9 % (0.0-4.0); GLOMERULAR FILTRATION RATE 112 ML/MIN (>89); HEMATOCRIT 27.2 % (35.0-46.0); LYMPH % 10.2 % (9.0-44.0); LYMPHOCYTE # 0.5 TH/MM3 (1.0-4.8); MEAN CELL VOLUME 95.9 FL (80.0-100.0); MEAN CORPUSCULAR HEMOGLOBIN 32.5 PG (27.0-34.0); MEAN CORPUSCULAR HGB CONC 33.9 % (32.0-36.0); MONO % 6.3 % (0.0-8.0); PLATELET COUNT 92 TH/MM3 (150-450); RED BLOOD COUNT 2.83 MIL/MM3 (4.00-5.30); RED CELL DISTRIBUTION WIDTH 14.3 % (11.6-17.2); SODIUM (NA) 139 MEQ/L (136-145); TOTAL BILIRUBIN ADULT 1.1 MG/DL (0.2-1.0); WHITE BLOOD COUNT 4.6 TH/MM3 (4.0-11.0)
[2016-08-12 07:03] LABS: HEMO FLAGS AUTO DIFF
[2016-08-12] MEDS: PANTOPRAZOLE SODIUM 40 MG VIAL IV PUSH SCH (08:14)
[2016-08-12] MEDS: D5-1/2 NS + KCL 20 MEQ INJ 1,000 ML IV SCH (08:14)
[2016-08-12] MEDS: NICOTINE 14 MG/24 HR PATCH TD SCH (08:14)
[2016-08-12] MEDS: diphenhydrAMINE HCL 25 MG CAP PO PRN (08:15)
[2016-08-12] MEDS: SODIUM CHLORIDE 0.9% FLUSH 5 ML FLUSH FLUSH SCH (08:15)
[2016-08-12 09:19] LABS: PLATELET ESTIMATE SMEAR LOW (NORMAL); PLATELET MORPHOLOGY NORMAL (NORMAL); SCAN/DIFF AUTO DIFF CONFIRMED
[2016-08-12] MEDS ORDERED: MAGNESIUM HYDROXIDE SUSP 30 ML CUP PO PRN (10:45)
[2016-08-12] MEDS ORDERED: SENNOSIDES 8.6 MG TAB PO PRN (10:45)
[2016-08-12] MEDS ORDERED: BISACODYL 10 MG SUPP PR PRN (10:45)
[2016-08-12] MEDS ORDERED: MORPHINE SULFATE 4 MG/ML INJ IV PRN (10:45)
[2016-08-12] MEDS ORDERED: NALOXONE HCL 0.4 MG/ML AMP IV PRN (10:45)
--- NOTE | 2016-08-12 10:48 | HHI.GIFU ---
Subjective Remarks Resting in bed. Still having pills getting caught in esophagus- states she does not take all her medicine because of this. (Sil Ash) Objective Vitals I&O Vital Signs Date Time Temp Pulse Resp B/P Pulse Ox O2 Delivery O2 Flow Rate FiO2 08/12/16 08:04 80 08/12/16 07:18 98.3 83 18 113/74 94 08/12/16 04:00 98.5 85 18 109/71 93 08/12/16 02:35 85 08/12/16 01:30 99.8 89 18 112/70 93 08/11/16 23:08 22 08/11/16 21:13 98.7 88 18 106/69 98 08/11/16 11:59 97.9 74 18 103/68 93 Laboratory Laboratory Tests Test 08/12/16 05:54 White Blood Count 4.6 Red Blood Count 2.83 Hemoglobin 9.2 Hematocrit 27.2 Mean Corpuscular Volume 95.9 Mean Corpuscular Hemoglobin 32.5 Mean Corpuscular Hemoglobin 33.9 Concent Red Cell Distribution Width 14.3 Platelet Count 92 Mean Platelet Volume 10.7 Neutrophils (%) (Auto) 79.0 Lymphocytes (%) (Auto) 10.2 Monocytes (%) (Auto) 6.3 Eosinophils (%) (Auto) 3.9 Basophils (%) (Auto) 0.6 Neutrophils # (Auto) 3.7 Lymphocytes # (Auto) 0.5 Monocytes # (Auto) 0.3 Eosinophils # (Auto) 0.2 Basophils # (Auto) 0.0 CBC Comment AUTO DIFF Differential Comment AUTO DIFF CONFIRMED Platelet Estimate LOW Platelet Morphology Comment NORMAL Prothrombin Time 14.7 Prothromb Time International 1.3 Ratio Sodium Level 139 Potassium Level 4.0 Chloride Level 107 Carbon Dioxide Level 24.4 Anion Gap 8 Blood Urea Nitrogen 5 Creatinine 0.67 Estimat Glomerular Filtration 112 Rate Random Glucose 55 Calcium Level 7.7 Total Bilirubin 1.1 Aspartate Amino Transf 100 (AST/SGOT) Alanine Aminotransferase 38 (ALT/SGPT) Alkaline Phosphatase 219 Total Protein 6.8 Albumin 1.4 Tumor Marker Alpha Fetoprotein 2.5 Date/Time Procedure Status Source Growth 08/10/16 20:18 Urine Culture - Final Complete Urine Catheterized Urine Group B Beta Strep 08/10/16 19:17 Aerobic Blood Culture - Preliminary Resulted Blood Peripheral NO GROWTH IN 1 DAY 08/10/16 19:17 Anaerobic Blood Culture - Preliminary Resulted Blood Peripheral NO GROWTH IN 1 DAY Imaging Last Impressions Abdomen Ultrasound 08/11/16 0000 Signed Impressions: Service Date/Time: Thursday, August 11, 2016 11:47 - CONCLUSION: Cirrhotic appearing liver with a large amount of free fluid seen predominantly within the right upper quadrant and within the midline pelvis. Christiana Dash MD Abdomen/Pelvis CT 08/10/167 Signed Impressions: Service Date/Time: Wednesday, August 10, 2016 21:23 - CONCLUSION: 1. Moderate ascites with varicosities. 2. Inhomogeneous liver all suggesting cirrhosis. Yosef Puente MD FACR Chest X-Ray 08/10/16 1905 Signed Impressions: Service Date/Time: Wednesday, August 10, 2016 19:31 - CONCLUSION: Negative chest for acute disease. Yosef Puente MD FACR Physical Exam HEENT: Normocephalic; atraumatic; no jaundice. CHEST: CTA CARDIAC: RRR ABDOMEN: Soft, nondistended, nontender; hepatosplenomegaly; bowel sounds are present in all four quadrants. EXTREMITIES: No clubbing, cyanosis, or edema. SKIN: Normal; no rash; no jaundice. SUPERVISOR DETASSELING CREW: No focal deficits; alert and oriented times three. (Sil Ash) Assessment and Plan Plan ASSESSMENT: - Abdominal pain x 5 days with associated distention. She has moderate distention with ascites on exam. Abdomen/Pelvis CT (08/10/16) revealed 1. Moderate ascites with varicosities. 2. Inhomogeneous liver all suggesting cirrhosis. Abdomen Ultrasound (08/11/16)----> Cirrhotic appearing liver with a large amount of free fluid seen predominantly within the right upper quadrant and within the midline pelvis. Her pain is not related to food intake. She does report that she has had chills, no fevers. An episode of n /v prior to coming to the hospital. EGD/Colonoscopy (01/05/16)---> normal duodenum, gastritis in the antrum, stricture/Schatzki's ring distal esophagus status post dilatation 14 savory guidewire, hiatal hernia, 2 diminutive polyps in cecum 5 mm and 6 mm each, cold biopsy with complete removal, 2 polyps at hepatic flexure 6 mm each cold biopsy with complete removal, no normal colon otherwise random biopsies of the ascending and descending colon, medium internal hemorrhoids, decreased sphincter tone. Pathology revealed small intestinal mucosa without significant histopathologic abnormality, severe chronic gastritis, negative for helicobacter pylori, adenomatous polyp at hepatic flexure, colonic mucosa without significant histopathologic abnormality in ascending and descending colon, and adenomatous polyp at the cecum. ? pain possibly related to new onset ascites. Improved. - New onset ascites with large amount of free fluid seen predominantly within the right upper quadrant and within the midline pelvis. On Ceftriaxone - Dysphagia, with hx of esophagel stricture/schatzki's ring. States she did have improvement after her last EGD with dilatation in December of 2015. States she is not taking all her medications because of this. - Elevated LFTs, Liver cirrhosis. New dx. Abdomen/Pelvis CT (08/10/16) revealed 1. Moderate ascites with varicosities. 2. Inhomogeneous liver all suggesting cirrhosis. Abdomen Ultrasound (08/11/16)----> Cirrhotic appearing liver with a large amount of free fluid seen predominantly within the right upper quadrant and within the midline pelvis. She was told that she had liver disease 2 weeks ago as outpatient but denies ever being told that she had liver cirrhosis. She was worked up in December of 2015 for elevated LFTs. At that time, she had some mild diffuse gallbladder wall thickening with pericholecystic fluid, enlarged fatty liver, mild questionable wall thickening involving the ascending colon. She was evaluated by HIDA scan which was negative and also general surgery at that time, who did not feel that this was cholecystitis. Hepatitis and ZAYRA was negative. She continues to drink ETOH and uses Cocaine at times for pain control. Stable. AFP 2.5, AMA/ASMA/Ceruplasmin/Alpha 1 Antitrypsin pending - Abnormal weight loss 40lbs over 3 months - HIV, She was diagnosed with HIV 4 years ago, but has not been taking her medications because they are "too big to swallow." - Anemia. Stable, no active bleeding. - Coagulopathy/Thrombocytopenia. PLAN: - Plan for EGD with dilatation in am - Obtain consents - Low sodium diet - NPO after MN - US guided paracentesis, diagnostic/therapeutic - Cont. Ceftriaxone. - Protonix - Furosemide/Spironolactone - Await ASMA, AMA - Await Ceruloplasmin, Alpha 1 Antitrypsin - Monitor labs - Supportive care - Consider diuretics once renal function improves - Needs ETOH/Cocaine Cessation - Further recommendations to follow based on results of above - Pt seen and examined by Dr. Werner and myself and this note is written on his behalf (Sil Ash) Physician Comments Seen and examined with Ms. Mihir BAKER, EGD/Dilation and paracentesis tomorrow. Liver cormier under way. (Liberty Werner MD) Sil Ash Aug 12, 2016 10:48 Liberty Werner MD Aug 12, 2016 16:38
--- NOTE | 2016-08-12 11:38 | HHI.PR ---
Subjective Remarks Follow up for abdominal pain. The patient reports continued diffuse abdominal pain. No nausea/vomiting. No fevers/chills. Discussed again why she is not taking her HAART therapy. She states she hasn't taken this in 4 months because she cannot swallow the pills and it gives her an upset stomach. She has not yet follow up again with infectious disease physician. She would be willing to restart treatment if the pills can be changed. The patient also complains of a diffuse rash and significant pruritus. Her place had fleas which she thinks is causing the rash. Objective Vitals Vital Signs Date Time Temp Pulse Resp B/P Pulse Ox O2 Delivery O2 Flow Rate FiO2 08/12/16 08:04 80 08/12/16 07:18 98.3 83 18 113/74 94 08/12/16 04:00 98.5 85 18 109/71 93 08/12/16 02:35 85 08/12/16 01:30 99.8 89 18 112/70 93 08/11/16 23:08 22 08/11/16 21:13 98.7 88 18 106/69 98 08/11/16 11:59 97.9 74 18 103/68 93 Result Diagram: 08/12/16 0554 08/12/16 0554 Imaging Last Impressions Abdomen Ultrasound 08/11/16 0000 Signed Impressions: Service Date/Time: Thursday, August 11, 2016 11:47 - CONCLUSION: Cirrhotic appearing liver with a large amount of free fluid seen predominantly within the right upper quadrant and within the midline pelvis. Christiana Dash MD Abdomen/Pelvis CT 08/10/162106 Signed Impressions: Service Date/Time: Wednesday, August 10, 2016 21:23 - CONCLUSION: 1. Moderate ascites with varicosities. 2. Inhomogeneous liver all suggesting cirrhosis. Yosef Puente MD FACR Chest X-Ray 08/10/16 1905 Signed Impressions: Service Date/Time: Wednesday, August 10, 2016 19:31 - CONCLUSION: Negative chest for acute disease. Yosef Puente MD FACR Objective Remarks GENERAL: Thin cachectic appearing AA female patient in NAD. SKIN: Warm and dry. Diffuse linear papular rash throughout arms, legs, intertriginous areas, between fingers/toes. HEAD: Normocephalic. Atraumatic. NECK: Supple. Trachea midline. CARDIOVASCULAR: Regular rate and rhythm. S1, S2 noted. No murmur appreciated. RESPIRATORY: No accessory muscle use. Clear to auscultation. Breath sounds equal bilaterally. GASTROINTESTINAL: Abdomen distended, +fluid wave, diffuse tenderness to palpation. Normoactive bowel sounds x4. MUSCULOSKELETAL: No obvious deformities. Extremities without clubbing, cyanosis , or edema. NEUROLOGICAL: Awake and alert. No obvious cranial nerve deficits. Motor grossly within normal limits. Normal speech. PSYCHIATRIC: Appropriate mood and affect; insight and judgment normal. Medications and IVs Current Medications Medications (Trade) Dose Ordered Sig/Sue Route Start Time Stop Time Status Last Admin (NS Flush) 2 ml UNSCH PRN FLUSH 08/10/16 22:45 (NS Flush) 2 ml BID FLUSH 08/11/16 09:00 08/12/16 08:15 (Narcan Inj) 0.4 mg UNSCH PRN IV 08/10/16 22:45 (Protonix Inj) 40 mg Q24H IV PUSH 08/11/16 08:00 08/12/16 08:14 (Zofran Inj) 4 mg Q6HR PRN IV PUSH 08/11/16 11:15 (Benadryl) 25 mg Q6H PRN PO 08/11/16 11:15 08/12/16 08:15 (Habitrol 14 Mg Patch.24 Hr) 1 patch DAILY TD 08/11/16 12:00 08/12/16 08:14 Miscellaneous Information 1 1 HS TD 08/11/16 21:00 08/11/16 21:00 (Rocephin Inj/NS Inj) 100 ml @ 200 mls/hr Q12H IV 08/11/16 13:00 08/12/16 12:27 (Dulcolax Supp) 10 mg DAILY PRN [place] 08/12/16 10:45 (Colace) 100 mg Q12H PO 08/12/16 11:00 08/12/16 12:27 (Milk Of Magnesia Liq) 30 ml Q12H PRN PO 08/12/16 10:45 (Senokot) 17.2 mg Q12H PRN PO 08/12/16 10:45 (Morphine Inj) 1 mg Q3H PRN IV 08/12/16 10:45 08/12/16 12:38 (Ultram) 50 mg Q4H PRN PO 08/12/16 10:45 (Ultram) 100 mg Q4H PRN PO 08/12/16 10:45 (Narcan Inj) 0.4 mg UNSCH PRN IV 08/12/16 10:45 (Lasix) 20 mg BID@09,18 PO 08/12/16 18:00 (Aldactone) 25 mg DAILY PO 08/12/16 11:00 08/12/16 12:27 (Atarax) 10 mg Q6H PRN PO 08/12/16 11:45 (Calamine Lotion) 1 applic Q6H PRN TOPICAL 08/12/16 18:00 Urinary Catheter: No Vascular Central Line Catheter: No A/P Problem List: (1) HIV (human immunodeficiency virus infection) ICD Code: Z21 Status: Acute (2) Severe protein-calorie malnutrition ICD Code: E43 Status: Chronic (3) Chronic gastritis ICD Code: K29.50 Status: Chronic (4) Abdominal pain ICD Code: R10.9 Status: Acute Assessment and Plan 51-year-old female with a past medical history of HIV and GERD who presented with 4 days of abdominal pain Abdominal pain, Ascites, possible SBP: Abd/pelvis CT images reviewed by me, showed moderate ascites with varus varicosities and inhomogeneous liver. Bilirubin 2.0, AST 120, alkaline phos 279. Abdominal U/S showed cirrhotic liver with large amount of free fluid predominantly within RUQ and midline pelvis. Hepatitis panel negative. Empiric coverage for SBP with IV ceftriaxone. Previous EGD pathology reviewed, showed chronic gastritis, IV PPI. S/p IVF. Antiemetics prn. Consult GI. Plan for U/S guided abdominal paracentesis diagnostic/therapeutic. Monitor CMP. GI started on Lasix and spironolactone. Atypical chest pain: Occurred 4 days ago with retching. EKG reviewed with no acute changes. Troponin negative 3. ACS ruled out per protocol. Chest pain resolved. HIV: Previous CD4 count from 01/05/16 less than 20. Patient needs to f/up with outpatient ID physician to restart HAART. She has been off for 4 months because she couldn't swallow the pills and gave GI upset. Scabies: patient with diffuse rash, consistent with scabies. Will treat with permethrin x1. Control itching with atarax and calamine lotion. Tobacco abuse: Counseled on cessation. Nicotine patch. Hypocalcemia: Received IV calcium gluconate in the ED. Likely secondary to poor nutrition. Monitor. Severe protein calorie malnutrition: BMI 15 and albumin 1.8. Added ensure to meals. DVT prophylaxis: SCDs Written by Marilee Desai, acting as scribe for Dr. Cruz on 08/12/16 at 11: 25. The documentation accurately reflects the work performed [id number] by me on at 1125 Problem Qualifiers (1) Abdominal pain: Qualified Code: R10.84 - Generalized abdominal pain Marilee Desai PA-C Aug 12, 2016 11:38 Victor Hugo Cruz MD Aug 12, 2016 17:46
[2016-08-12] MEDS ORDERED: PERMETHRIN 5% CREAM 60 GM TOPICAL ONE (11:45)
[2016-08-12] MEDS: SPIRONOLACTONE 25 MG TAB PO SCH (12:27)
[2016-08-12] MEDS: DOCUSATE SODIUM 100 MG CAP PO SCH ×2 (12:27→23:00)
[2016-08-12] MEDS: FUROSEMIDE 20 MG TAB PO SCH (17:44)
[2016-08-12] MEDS ORDERED: CALAMINE LOTION 180 APPLIC/180 ML BTL TOPICAL PRN (18:00)
[2016-08-12] MEDS: REMOVE OLD NICODERM (NICOTINE) PATCH TD SCH (21:00)
[2016-08-13] VITALS (9 sets, daily range): BP systolic 105–141; BP diastolic 68–82; PULSE 78–90; RESP 16–20; TEMP 97–98.9; O2SAT 97–99
[2016-08-13] MEDS: SODIUM CHLORIDE 0.9% FLUSH 5 ML FLUSH FLUSH SCH ×3 (00:24→08:51)
[2016-08-13] MEDS: DOCUSATE SODIUM 100 MG CAP PO SCH ×2 (00:24→11:00)
[2016-08-13] MEDS: cefTRIAXone INJ 1,000 MG in SODIUM CHLORIDE 0.9% INJ 100 ML IV SCH ×2 (01:57→13:13)
--- NOTE | 2016-08-13 08:40 | HHI.PR ---
Subjective Remarks Follow up for abdominal pain, ascites, dysphagia, scabies. The patient reports her rash has improved s/p treatment yesterday, pruritus much improved. She reports continued diffuse abdominal pain and distention. No nausea/vomiting. No fevers/chills. She has no other medical complaints at this time. Going for EGD today. Objective Vitals Vital Signs Date Time Temp Pulse Resp B/P Pulse Ox O2 Delivery O2 Flow Rate FiO2 08/13/16 08:32 98.5 90 16 105/69 98 08/13/16 07:28 90 08/13/16 04:09 98.9 78 18 128/68 98 08/13/16 00:00 98.0 78 18 141/68 98 08/12/16 19:00 98.0 77 18 108/68 98 08/12/16 17:23 97.9 94 18 157/93 95 08/12/16 14:10 98.1 82 18 134/86 99 Result Diagram: 08/12/16 0554 08/12/16 0554 Imaging Last Impressions Abdomen Ultrasound 08/11/16 0000 Signed Impressions: Service Date/Time: Thursday, August 11, 2016 11:47 - CONCLUSION: Cirrhotic appearing liver with a large amount of free fluid seen predominantly within the right upper quadrant and within the midline pelvis. Christiana Dash MD Abdomen/Pelvis CT 08/10/162106 Signed Impressions: Service Date/Time: Wednesday, August 10, 2016 21:23 - CONCLUSION: 1. Moderate ascites with varicosities. 2. Inhomogeneous liver all suggesting cirrhosis. Yosef Puente MD FACR Chest X-Ray 08/10/16 190 Signed Impressions: Service Date/Time: Wednesday, August 10, 2016 19:31 - CONCLUSION: Negative chest for acute disease. Yosef Puente MD FACR Objective Remarks GENERAL: Thin cachectic appearing AA female patient in NAD. SKIN: Warm and dry. Diffuse linear papular rash throughout arms, legs, intertriginous areas, between fingers/toes; much improved, mostly scabs. HEAD: Normocephalic. Atraumatic. NECK: Supple. Trachea midline. CARDIOVASCULAR: Regular rate and rhythm. S1, S2 noted. No murmur appreciated. RESPIRATORY: No accessory muscle use. Clear to auscultation. Breath sounds equal bilaterally. GASTROINTESTINAL: Abdomen distended, +fluid wave, diffuse tenderness to palpation. Normoactive bowel sounds x4. MUSCULOSKELETAL: No obvious deformities. Extremities without clubbing, cyanosis , or edema. NEUROLOGICAL: Awake and alert. No obvious cranial nerve deficits. Motor grossly within normal limits. Normal speech. PSYCHIATRIC: Appropriate mood and affect; insight and judgment normal. Medications and IVs Current Medications Medications (Trade) Dose Ordered Sig/Sue Route Start Time Stop Time Status Last Admin (NS Flush) 2 ml UNSCH PRN FLUSH 08/10/16 22:45 (NS Flush) 2 ml BID FLUSH 08/11/16 09:00 08/13/16 08:51 (Narcan Inj) 0.4 mg UNSCH PRN IV 08/10/16 22:45 (Protonix Inj) 40 mg Q24H IV PUSH 08/11/16 08:00 08/13/16 08:51 (Zofran Inj) 4 mg Q6HR PRN IV PUSH 08/11/16 11:15 (Benadryl) 25 mg Q6H PRN PO 08/11/16 11:15 08/12/16 08:15 (Habitrol 14 Mg Patch.24 Hr) 1 patch DAILY TD 08/11/16 12:00 08/12/16 08:14 Miscellaneous Information 1 1 HS TD 08/11/16 21:00 08/12/16 21:00 (Rocephin Inj/NS Inj) 100 ml @ 200 mls/hr Q12H IV 08/11/16 13:00 08/13/16 01:57 (Dulcolax Supp) 10 mg DAILY PRN [place] 08/12/16 10:45 (Colace) 100 mg Q12H PO 08/12/16 11:00 08/12/16 12:27 (Milk Of Magnesia Liq) 30 ml Q12H PRN PO 08/12/16 10:45 (Senokot) 17.2 mg Q12H PRN PO 08/12/16 10:45 (Morphine Inj) 1 mg Q3H PRN IV 08/12/16 10:45 08/12/16 12:38 (Ultram) 50 mg Q4H PRN PO 08/12/16 10:45 (Ultram) 100 mg Q4H PRN PO 08/12/16 10:45 08/13/16 08:48 (Narcan Inj) 0.4 mg UNSCH PRN IV 08/12/16 10:45 (Lasix) 20 mg BID@09,18 PO 08/12/16 18:00 08/12/16 17:44 (Aldactone) 25 mg DAILY PO 08/12/16 11:00 08/12/16 12:27 (Atarax) 10 mg Q6H PRN PO 08/12/16 11:45 (Calamine Lotion) 1 applic Q6H PRN TOPICAL 08/12/16 18:00 Urinary Catheter: No Vascular Central Line Catheter: No A/P Problem List: (1) HIV (human immunodeficiency virus infection) ICD Code: Z21 Status: Acute (2) Severe protein-calorie malnutrition ICD Code: E43 Status: Chronic (3) Chronic gastritis ICD Code: K29.50 Status: Chronic (4) Abdominal pain ICD Code: R10.9 Status: Acute Assessment and Plan 51-year-old female with a past medical history of HIV and GERD who presented with 4 days of abdominal pain Abdominal pain, Ascites, possible SBP: Abd/pelvis CT images reviewed by me, showed moderate ascites with varicosities and inhomogeneous liver; suggests cirrhosis. Bilirubin 2.0, AST 120, alkaline phos 279. Abdominal U/S showed cirrhotic liver with large amount of free fluid. Hepatitis panel negative. Empiric coverage for SBP with IV ceftriaxone. Previous EGD pathology reviewed, showed chronic gastritis, Continue IV PPI. S/p IVF. Antiemetics prn. Consult GI , plan for EGD +/- dilatation today. U/S guided abdominal paracentesis diagnostic/therapeutic ordered however will not be done until no further signs of scabies/rash. Monitor CMP. Started on Lasix and spironolactone. Consider starting Inderal when more hemodynamically stable, BP borderline hypotensive. Dysphagia: GI consulted as above, going for EGD with possible dilatation today. Atypical chest pain: Occurred 4 days ago with retching. EKG reviewed with no acute changes. Troponin negative 3. ACS ruled out per protocol. Chest pain resolved. HIV: Previous CD4 count from 01/05/16 less than 20. Patient needs to f/up with outpatient ID physician to restart HAART; thoroughly discussed. She has been off for 4 months because she couldn't swallow the pills and gave GI upset. Scabies: patient with diffuse rash, consistent with scabies. S/p treatment with permethrin x1 on 08/12. Control itching with atarax and calamine lotion. Improved. Tobacco abuse: Counseled on cessation. Nicotine patch. Hypocalcemia: Received IV calcium gluconate in the ED. Likely secondary to poor nutrition. Monitor. Severe protein calorie malnutrition: Cachectic on exam, BMI 15 and albumin 1.8. Added ensure to meals. DVT prophylaxis: SCDs Written by Marilee Desai, acting as scribe for Dr. Cruz on 08/13/16 at 08: 37. The documentation accurately reflects the work performed [id number] by me on at 0837 Problem Qualifiers (1) Abdominal pain: Qualified Code: R10.84 - Generalized abdominal pain Marilee Desai PA-C Aug 13, 2016 08:40 Victor Hugo Cruz MD Aug 13, 2016 16:54
[2016-08-13] MEDS: traMADol HCL 50 MG TAB PO PRN ×3 (08:48→18:18)
[2016-08-13] MEDS: SPIRONOLACTONE 25 MG TAB PO SCH (08:51)
[2016-08-13] MEDS: NICOTINE 14 MG/24 HR PATCH TD SCH (08:51)
[2016-08-13] MEDS: PANTOPRAZOLE SODIUM 40 MG VIAL IV PUSH SCH (08:51)
[2016-08-13] MEDS: FUROSEMIDE 20 MG TAB PO SCH ×2 (08:51→18:18)
[2016-08-13] MEDS ORDERED: PROPOFOL 200 MG/20 ML AMP IV ONE (10:14)
[2016-08-13] MEDS: REMOVE OLD NICODERM (NICOTINE) PATCH TD SCH (21:00)
[2016-08-14] VITALS (8 sets, daily range): BP systolic 110–129; BP diastolic 73–86; PULSE 78–93; RESP 18–22; TEMP 96.5–99; O2SAT 95–99
[2016-08-14] MEDS: cefTRIAXone INJ 1,000 MG in SODIUM CHLORIDE 0.9% INJ 100 ML IV SCH ×2 (02:04→14:20)
[2016-08-14] MEDS: NICOTINE 14 MG/24 HR PATCH TD SCH (08:02)
[2016-08-14] MEDS: diphenhydrAMINE HCL 25 MG CAP PO PRN ×2 (08:02→21:21)
[2016-08-14] MEDS: FUROSEMIDE 20 MG TAB PO SCH ×2 (08:05→17:32)
[2016-08-14] MEDS: PANTOPRAZOLE SODIUM 40 MG VIAL IV PUSH SCH (08:06)
[2016-08-14] MEDS: traMADol HCL 50 MG TAB PO PRN ×3 (08:06→23:44)
[2016-08-14] MEDS: SPIRONOLACTONE 25 MG TAB PO SCH (08:06)
[2016-08-14] MEDS: SODIUM CHLORIDE 0.9% FLUSH 5 ML FLUSH FLUSH SCH ×2 (08:06→21:21)
--- NOTE | 2016-08-14 09:57 | HHI.PR ---
Subjective Remarks Follow-up for abdominal pain, ascites, scabies. The patient states that overnight she was able to eat and swallow better after EGD with dilation, but did have one episode of vomiting. She states her abdominal pain has significantly improved. Reportedly unable to have paracentesis today due to continued scabies rash. No BM since admission. Hasn't really eaten much in 6 days. Objective Vitals Vital Signs Date Time Temp Pulse Resp B/P Pulse Ox O2 Delivery O2 Flow Rate FiO2 08/14/16 04:09 97.6 86 20 115/73 95 08/14/16 00:26 97.8 93 18 129/80 96 08/13/16 20:26 97.6 82 20 121/82 97 08/13/16 19:53 14 08/13/16 18:25 84 08/13/16 17:18 97.7 85 18 118/80 98 08/13/16 11:06 97.0 86 16 107/70 99 08/13/16 10:41 95/63 08/13/16 10:31 81 18 89/59 98 08/13/16 10:26 85 19 87/58 98 08/13/16 10:21 98.2 86 18 90/57 98 I/O 08/13/16 08/13/16 08/13/16 08/14/16 08/14/16 08/14/16 07:00 15:00 23:00 07:00 15:00 23:00 Intake Total 150 ml Balance 150 ml Intake IV Total 150 ml Result Diagram: 08/12/16 0554 08/12/16 0554 Imaging Last Impressions Abdomen Ultrasound 08/11/16 0000 Signed Impressions: Service Date/Time: Thursday, August 11, 2016 11:47 - CONCLUSION: Cirrhotic appearing liver with a large amount of free fluid seen predominantly within the right upper quadrant and within the midline pelvis. Christiana Dash MD Abdomen/Pelvis CT 08/10/162106 Signed Impressions: Service Date/Time: Wednesday, August 10, 2016 21:23 - CONCLUSION: 1. Moderate ascites with varicosities. 2. Inhomogeneous liver all suggesting cirrhosis. Yosef Puente MD FACR Chest X-Ray 08/10/16 1905 Signed Impressions: Service Date/Time: Alisa, August 10, 2016 19:31 - CONCLUSION: Negative chest for acute disease. Yosef Puente MD FACR Objective Remarks GENERAL: Well-developed well-nourished. In no acute distress. SKIN: Warm and dry. There is some excoriations on the abdomen. HEENT: Normocephalic. Pupils equal and round. Mucous membranes pink and moist. CARDIOVASCULAR: Regular rate and rhythm. No murmur appreciated. RESPIRATORY: No accessory muscle use. Clear to auscultation. Breath sounds equal bilaterally. GASTROINTESTINAL: Abdomen soft, non-tender, distended. Bowel sounds x4. MUSCULOSKELETAL: No obvious deformities. No clubbing or cyanosis. No edema. NEUROLOGICAL: Awake and alert. No focal neurological deficits. Moves upper and lower extremities spontaneously. Normal speech. PSYCHIATRIC: Appropriate mood and affect; insight and judgment normal. A/P Problem List: (1) HIV (human immunodeficiency virus infection) ICD Code: Z21 Status: Chronic (2) Severe protein-calorie malnutrition ICD Code: E43 Status: Chronic (3) Chronic gastritis ICD Code: K29.50 Status: Chronic (4) Abdominal pain ICD Code: R10.9 Status: Acute Assessment and Plan 51-year-old female with a past medical history of HIV and GERD who presented with 4 days of abdominal pain Abdominal pain, Ascites, possible SBP: Abd/pelvis CT images reviewed by me, showed moderate ascites with varicosities and inhomogeneous liver; suggests cirrhosis. Bilirubin 2.0, AST 120, alkaline phos 279. Abdominal U/S showed cirrhotic liver with large amount of free fluid. Hepatitis panel negative. Empiric coverage for SBP with IV ceftriaxone. Previous EGD pathology reviewed, showed chronic gastritis, Continue IV PPI. S/p IVF. Antiemetics prn. Consulted GI, performed EGD w/ dilatation 08/13, appreciate GI input. U/S guided abdominal paracentesis diagnostic/therapeutic ordered however will not be done until no further signs of scabies/rash. Monitor CMP. Started on Lasix and spironolactone. Consider starting Inderal when more hemodynamically stable, BP borderline hypotensive. Dysphagia: Improved after EGD with dilation as above. Diet as tolerated. Atypical chest pain: Occurred 4 days prior to admission when the patient was retching. EKG with no acute changes. Troponin negative 3. ACS ruled out per protocol. Chest pain resolved. HIV: Previous CD4 count from 01/05/16 less than 20. Patient needs to f/up with outpatient ID physician to restart HAART; discussed with the patient. She has been off for 4 months because she couldn't swallow the pills and gave GI upset. Repeat HIV profile pending. Scabies: patient with diffuse rash, consistent with scabies. S/p treatment with permethrin x1 on 08/12. Control itching with hydroxyzine and calamine lotion. Improving. Tobacco abuse: Counseled on cessation. Nicotine patch. Hypocalcemia: Received IV calcium gluconate in the ED. Likely secondary to poor nutrition. Monitor. Severe protein calorie malnutrition: Cachectic on exam, BMI 15 and albumin 1.8. Added ensure to meals. DVT prophylaxis: SCDs Written by Gutierrez Maurice, acting as scribe for Dr. Cruz on 08/14/16 at 09:57. The documentation accurately reflects the work performed [id number] by me on at 0957 Discharge Planning Disposition pending clinical course. Problem Qualifiers (1) Abdominal pain: Qualified Code: R10.84 - Generalized abdominal pain Gutierrez Maurice Aug 14, 2016 09:57 Victor Hugo Cruz MD Aug 14, 2016 12:30
[2016-08-14] MEDS: LACTULOSE SYRUP 20 GM/30 ML CUP PO SCH (10:01)
[2016-08-14] MEDS: DOCUSATE SODIUM 100 MG CAP PO SCH ×2 (10:01→22:30)
[2016-08-14] MEDS: hydrOXYzine HCL 10 MG TAB PO PRN (14:20)
[2016-08-14 17:54] LABS: CD 19 PERCENT 5 % (6-29); CD3 ABSOLUTE 276 (840-3060); CD4/CD8 RATIO 0.1 (0.86-5.00); CD8 ABSOLUTE 262 (180-1170); LYMPHOCYTES, ABSOLUTE 420 (850-3900)
[2016-08-14] MEDS: REMOVE OLD NICODERM (NICOTINE) PATCH TD SCH (21:00)
[2016-08-15] MEDS: cefTRIAXone INJ 1,000 MG in SODIUM CHLORIDE 0.9% INJ 100 ML IV SCH ×2 (01:13→13:55)
[2016-08-15 04:00] VITALS: BP 112/73; PULSE 88; RESP 18; TEMP 97.4; O2SAT 97
[2016-08-15 08:00] VITALS: BP 109/69; PULSE 87; RESP 19; TEMP 97.5; O2SAT 96
[2016-08-15] MEDS ORDERED: PANTOPRAZOLE SOD 40 MG DELAYED RELEASE TAB PO SCH (09:00)
[2016-08-15] MEDS: LACTULOSE SYRUP 20 GM/30 ML CUP PO SCH (09:00)
[2016-08-15] MEDS: NICOTINE 14 MG/24 HR PATCH TD SCH (09:00)
[2016-08-15] MEDS: SODIUM CHLORIDE 0.9% FLUSH 5 ML FLUSH FLUSH SCH ×2 (10:15→23:02)
[2016-08-15] MEDS: PANTOPRAZOLE SOD 40 MG DELAYED RELEASE TAB PO SCH (10:15)
[2016-08-15] MEDS: FUROSEMIDE 20 MG TAB PO SCH ×2 (10:15→18:19)
[2016-08-15] MEDS: SPIRONOLACTONE 25 MG TAB PO SCH (10:15)
--- NOTE | 2016-08-15 11:29 | HHI.PR ---
Subjective Remarks Follow-up for abdominal pain. The patient reports continued improvement in her abdominal pain. She denies any vomiting. Rash is improving, IR is waiting for resolution before paracentesis, discussed with RN. The patient denies any itching currently. Objective Vitals Vital Signs Date Time Temp Pulse Resp B/P Pulse Ox O2 Delivery O2 Flow Rate FiO2 08/15/16 08:00 97.5 87 19 109/69 96 08/15/16 04:00 97.4 88 18 112/73 97 08/14/16 23:15 99.0 86 18 111/74 98 08/14/16 20:00 78 08/14/16 19:37 98.7 84 20 120/76 96 08/14/16 16:36 98.1 86 22 117/86 99 I/O 08/14/16 08/14/16 08/14/16 08/15/16 08/15/16 08/15/16 07:00 15:00 23:00 07:00 15:00 23:00 Intake Total 280 ml Output Total 2 ml Balance 278 ml Intake Oral 280 ml Output Urine Total 2 ml # Bowel Movements 1 Result Diagram: 08/12/16 0554 08/12/16 0554 Imaging Last Impressions Abdomen Ultrasound 08/11/16 0000 Signed Impressions: Service Date/Time: Thursday, August 11, 2016 11:47 - CONCLUSION: Cirrhotic appearing liver with a large amount of free fluid seen predominantly within the right upper quadrant and within the midline pelvis. Christiana Dash MD Abdomen/Pelvis CT 08/10/162106 Signed Impressions: Service Date/Time: Wednesday, August 10, 2016 21:23 - CONCLUSION: 1. Moderate ascites with varicosities. 2. Inhomogeneous liver all suggesting cirrhosis. Yosef Puente MD FACR Chest X-Ray 08/10/16 190 Signed Impressions: Service Date/Time: Wednesday, August 10, 2016 19:31 - CONCLUSION: Negative chest for acute disease. Yosef Puente MD FACR Objective Remarks GENERAL: Well-developed well-nourished. In no acute distress. SKIN: Warm and dry. Improving excoriations. HEENT: Normocephalic. Pupils equal and round. Mucous membranes pink and moist. CARDIOVASCULAR: Regular rate and rhythm. No murmur appreciated. RESPIRATORY: No accessory muscle use. Clear to auscultation. Breath sounds equal bilaterally. GASTROINTESTINAL: Abdomen soft, non-tender, distended. Bowel sounds x4. MUSCULOSKELETAL: No obvious deformities. No clubbing or cyanosis. No edema. NEUROLOGICAL: Awake and alert. No focal neurological deficits. Moves upper and lower extremities spontaneously. Normal speech. PSYCHIATRIC: Appropriate mood and affect; insight and judgment normal. A/P Problem List: (1) HIV (human immunodeficiency virus infection) ICD Code: Z21 Status: Chronic (2) Severe protein-calorie malnutrition ICD Code: E43 Status: Chronic (3) Chronic gastritis ICD Code: K29.50 Status: Chronic (4) Abdominal pain ICD Code: R10.9 Status: Acute Assessment and Plan 51-year-old female with a past medical history of HIV and GERD who presented with 4 days of abdominal pain Abdominal pain, Ascites, possible SBP: Abd/pelvis CT images showed moderate ascites with varicosities and inhomogeneous liver; suggests cirrhosis. Bilirubin 2.0, AST 120, alkaline phos 279. Abdominal U/S showed cirrhotic liver with large amount of free fluid. Hepatitis panel negative. Empiric coverage for SBP with IV ceftriaxone. Previous EGD pathology reviewed, showed chronic gastritis, changed IV PPI to oral. S/p IVF. Antiemetics prn. Consulted GI, performed EGD w/ dilatation 08/13, appreciate GI input. U/S guided abdominal paracentesis diagnostic/therapeutic ordered however will not be done until no further signs of scabies/rash. Monitor CMP. Started on Lasix and spironolactone. Consider starting Inderal when more hemodynamically stable, BP borderline hypotensive. Dysphagia: Improved after EGD with dilation as above. Diet as tolerated. Atypical chest pain: Occurred 4 days prior to admission when the patient was retching. EKG with no acute changes. Troponin negative 3. ACS ruled out per protocol. Chest pain resolved. HIV: Patient needs to f/up with outpatient ID physician to restart HAART; discussed with the patient. She has been off for 4 months because she couldn't swallow the pills and gave GI upset. Lymphocyte profile reviewed, CD4 count remains less than 20. Scabies: patient with diffuse rash, consistent with scabies. S/p treatment with permethrin x1 on 08/12. Control itching with hydroxyzine and calamine lotion. Improving. Tobacco abuse: Counseled on cessation. Nicotine patch. Hypocalcemia: Received IV calcium gluconate in the ED. Likely secondary to poor nutrition. Monitor. Severe protein calorie malnutrition: Cachectic on exam, BMI 15 and albumin 1.8. Added ensure to meals. DVT prophylaxis: SCDs Written by Gutierrez Maurice, acting as scribe for Dr. Cruz on 08/15/16 at 11:28 The documentation accurately reflects the work performed [id number] by me on at 1128. . Discharge Planning Disposition pending clinical course. Problem Qualifiers (1) Abdominal pain: Qualified Code: R10.84 - Generalized abdominal pain Gutierrez Maurice Aug 15, 2016 11:29 Victor Hugo Cruz MD Aug 15, 2016 15:39
[2016-08-15 12:00] VITALS: BP 99/64; PULSE 79; RESP 17; TEMP 97.2; O2SAT 96
[2016-08-15] MEDS: DOCUSATE SODIUM 100 MG CAP PO SCH ×2 (13:55→23:00)
[2016-08-15 15:53] LABS: MITOCHONDRIAL ABS LESS THAN 20.0 U (())
[2016-08-15 16:00] VITALS: BP 103/69; PULSE 78; RESP 18; TEMP 95.9; O2SAT 98
[2016-08-15 20:00] VITALS: BP 110/72; PULSE 83; RESP 16; TEMP 98.4; O2SAT 98
[2016-08-15] MEDS: REMOVE OLD NICODERM (NICOTINE) PATCH TD SCH (21:00)
[2016-08-15] MEDS: traMADol HCL 50 MG TAB PO PRN (23:02)
[2016-08-16] VITALS (8 sets, daily range): BP systolic 94–105; BP diastolic 60–69; PULSE 78–84; RESP 15–18; TEMP 97.6–98.5; O2SAT 96–98
[2016-08-16] MEDS: cefTRIAXone INJ 1,000 MG in SODIUM CHLORIDE 0.9% INJ 100 ML IV SCH ×2 (01:32→14:17)
[2016-08-16] MEDS: LACTULOSE SYRUP 20 GM/30 ML CUP PO SCH (09:00)
[2016-08-16] MEDS: NICOTINE 14 MG/24 HR PATCH TD SCH (09:00)
[2016-08-16] MEDS: FUROSEMIDE 20 MG TAB PO SCH ×2 (09:00→18:00)
[2016-08-16] MEDS: SPIRONOLACTONE 25 MG TAB PO SCH (09:00)
[2016-08-16] MEDS: hydrOXYzine HCL 10 MG TAB PO PRN ×2 (09:21→18:36)
[2016-08-16] MEDS: DOCUSATE SODIUM 100 MG CAP PO SCH ×2 (09:21→21:06)
[2016-08-16] MEDS: PANTOPRAZOLE SOD 40 MG DELAYED RELEASE TAB PO SCH (09:22)
[2016-08-16] MEDS: traMADol HCL 50 MG TAB PO PRN ×4 (09:22→22:56)
[2016-08-16] MEDS: SODIUM CHLORIDE 0.9% FLUSH 5 ML FLUSH FLUSH SCH ×2 (09:26→21:06)
--- NOTE | 2016-08-16 14:15 | PQ ---
Physician Query Response Document PATIENT: ELIZABETH MORALES : 1965 ADMIT DATE: 08/10/2016 10:16 PM DISCH DATE: RESPONDING PROVIDER #: Vlad QUERY TEXT: HIV Clarification and Associated Conditions HIV (Human immunodeficiency virus) is documented in the medical record. Please specify the type Such as: -- Acquired immune deficiency syndrome [AIDS] -- CKNE-kzmbohb-pruvowk complex [ARC] -- Symptomatic -- Asymptomatic -- With current or previous HIV-related condition (please specify related condition) -- Exposure to HIV -- Inconclusive serologic evidence of HIV -- Other, please specify Also please include any associated conditions, if applicable. The patient's Clinical Indicators include: 08/10/16 Admission Diagnosis Abdominal pain with ascites, cp ro mi PER ED H HPI The patient is a 51 year old female with a prior medical history of HIV/AIDS who presents to the [facility] emergency department with a history of abdominal pain that began 3 days ago. PHYSICAL EXAM NARRATIVE STATES - Mouth: Dentition unremarkable. Moist mucus membranes. Posterior orop harynx is mildly erythematous. No tonsillar hypertrophy. Uvula midline. Airway patent. The patient's tongue on examination has patchy areas of white, suspicious for thrush PER 08/11/16 GI CONSULT - She was diagnosed with HIV 4 years ago, but has not been taking her medicati ons because they are "too big to swallow." PER 08/12/16 PROGRESS NOTE - Discussed again why she is not taking her HAART therapy. She states she h asn't taken this in 4 months because she cannot swallow the pills and it gives her an upset stomach. She has not yet follow up again with infectious disease physician. CLINICAL INDICATORS: Thin cachectic appearing BMI - 17.0 - Abnormal weight loss 40lbs over 3 months - as stated by GI exam - suspicious for thrush - as stated by ED exam Query created by: Kenia Saldivar on 08/16/2016 9:40 AM RESPONSE TEXT: AIDS Electronically signed by: Victor Hugo Cruz MD 08/16/2016 2:12 PM
--- NOTE | 2016-08-16 14:18 | HHI.PR ---
Subjective Remarks Follow-up for abdominal pain and rash. Patient denies any abdominal pain currently. She had some slight abdominal pain last night. She's been able swallow. She continues to complain of some itching, but the rash is improving. Objective Vitals Vital Signs Date Time Temp Pulse Resp B/P Pulse Ox O2 Delivery O2 Flow Rate FiO2 08/16/16 12:00 98.2 81 18 96/62 97 08/16/16 08:00 98.5 84 18 94/60 96 08/16/16 00:00 97.6 79 16 100/66 96 08/15/16 20:00 98.4 83 16 110/72 98 08/15/16 16:00 95.9 78 18 103/69 98 I/O 08/15/16 08/15/16 08/15/16 08/16/16 08/16/16 08/16/16 07:00 15:00 23:00 07:00 15:00 23:00 Intake Total 280 ml 960 ml 240 ml 120 ml Output Total 2 ml Balance 278 ml 960 ml 240 ml 120 ml Intake Oral 280 ml 960 ml 240 ml 120 ml Output Urine Total 2 ml # Voids 6 2 1 # Bowel Movements 1 1 0 Result Diagram: 08/12/16 0554 08/12/16 0554 Imaging Last Impressions Abdomen Ultrasound 08/11/16 0000 Signed Impressions: Service Date/Time: Thursday, August 11, 2016 11:47 - CONCLUSION: Cirrhotic appearing liver with a large amount of free fluid seen predominantly within the right upper quadrant and within the midline pelvis. Christiana Dash MD Abdomen/Pelvis CT 08/10/[id number] Signed Impressions: Service Date/Time: Wednesday, August 10, 2016 21:23 - CONCLUSION: 1. Moderate ascites with varicosities. 2. Inhomogeneous liver all suggesting cirrhosis. Yosef Puente MD FACR Chest X-Ray 08/10/16 1905 Signed Impressions: Service Date/Time: Wednesday, August 10, 2016 19:31 - CONCLUSION: Negative chest for acute disease. Yosef Puente MD FACR Objective Remarks GENERAL: Well-developed well-nourished. In no acute distress. SKIN: Warm and dry. Improving excoriations and rash on the abdomen. HEENT: Normocephalic. Pupils equal and round. Mucous membranes pink and moist. CARDIOVASCULAR: Regular rate and rhythm. No murmur appreciated. RESPIRATORY: No accessory muscle use. Clear to auscultation. Breath sounds equal bilaterally. GASTROINTESTINAL: Abdomen soft, non-tender, distended. Bowel sounds x4. MUSCULOSKELETAL: No obvious deformities. No clubbing or cyanosis. No edema. NEUROLOGICAL: Awake and alert. No focal neurological deficits. Moves upper and lower extremities spontaneously. Normal speech. PSYCHIATRIC: Appropriate mood and affect; insight and judgment normal. A/P Problem List: (1) HIV (human immunodeficiency virus infection) ICD Code: Z21 Status: Chronic (2) Severe protein-calorie malnutrition ICD Code: E43 Status: Chronic (3) Chronic gastritis ICD Code: K29.50 Status: Chronic (4) Abdominal pain ICD Code: R10.9 Status: Acute Assessment and Plan 51-year-old female with a past medical history of HIV and GERD who presented with 4 days of abdominal pain Abdominal pain, Ascites, possible SBP: Abd/pelvis CT images showed moderate ascites with varicosities and inhomogeneous liver; suggests cirrhosis. Bilirubin 2.0, AST 120, alkaline phos 279. Abdominal U/S showed cirrhotic liver with large amount of free fluid. Hepatitis panel negative. Empiric coverage for SBP with IV ceftriaxone pending paracentesis. Previous EGD pathology reviewed, showed chronic gastritis, changed IV PPI to oral. S/p IVF. Antiemetics prn. Consulted GI, performed EGD w/ dilatation 08/13, appreciate GI input. U/S guided abdominal paracentesis diagnostic/therapeutic ordered however will not be done until no further signs of scabies/rash, follow-up. Monitor CMP. Started on Lasix and spironolactone. Consider starting Inderal when more hemodynamically stable, BP borderline hypotensive. Dysphagia: Improved after EGD with dilation as above. Diet as tolerated. Atypical chest pain: Occurred 4 days prior to admission when the patient was retching. EKG with no acute changes. Troponin negative 3. ACS ruled out per protocol. Chest pain resolved. HIV: Patient needs to f/up with outpatient ID physician to restart HAART; discussed again with the patient. She has been off for 4 months because she couldn't swallow the pills and gave GI upset. Lymphocyte profile reviewed, CD4 count remains less than 20. Start Bactrim for PCP prophylaxis Scabies: patient with diffuse rash, consistent with scabies. S/p treatment with permethrin x1 on 08/12. Control itching with hydroxyzine and calamine lotion. Improving. Tobacco abuse: Counseled on cessation. Nicotine patch. Hypocalcemia: Received IV calcium gluconate in the ED. Likely secondary to poor nutrition. Monitor. Severe protein calorie malnutrition: Cachectic on exam, BMI 15 and albumin 1.8. Added ensure to meals. DVT prophylaxis: SCDs Written by Gutierrez Maurice, acting as scribe for Dr. Cruz on 08/16/16 at 14:18. The documentation accurately reflects the work performed [id number] by me on at 1418 Discharge Planning Disposition pending results of paracentesis. Consider discharge if no signs of SBP on cell count. Problem Qualifiers (1) Abdominal pain: Qualified Code: R10.84 - Generalized abdominal pain Gutierrez Maurice Aug 16, 2016 14:18 Victor Hugo Cruz MD Aug 16, 2016 16:50
[2016-08-16 19:54] LABS: PERITONEAL HISTIOCYTES 1 %; PERITONEAL LYMPHS 33 %; PERITONEAL MESOTHELIAL 1 %; PERITONEAL MONOS 44 %; PERITONEAL PLASMA CELLS 1 %; PERITONEAL POLYS(SEGS) 20 %; PERITONEAL WBC 39 /MM3 (0-10)
[2016-08-16] MEDS: REMOVE OLD NICODERM (NICOTINE) PATCH TD SCH (21:05)
[2016-08-17] MEDS: cefTRIAXone INJ 1,000 MG in SODIUM CHLORIDE 0.9% INJ 100 ML IV SCH ×2 (00:33→12:49)
[2016-08-17 04:15] VITALS: BP 102/66; PULSE 83; RESP 16; TEMP 98; O2SAT 97
[2016-08-17] MEDS: traMADol HCL 50 MG TAB PO PRN (04:15)
[2016-08-17 08:12] VITALS: BP 112/76; PULSE 87; RESP 17; TEMP 96.6; O2SAT 95
[2016-08-17] MEDS: PANTOPRAZOLE SOD 40 MG DELAYED RELEASE TAB PO SCH (08:56)
[2016-08-17] MEDS: FUROSEMIDE 20 MG TAB PO SCH (08:57)
[2016-08-17] MEDS: SPIRONOLACTONE 25 MG TAB PO SCH (08:57)
[2016-08-17] MEDS: NICOTINE 14 MG/24 HR PATCH TD SCH (08:57)
[2016-08-17] MEDS: LACTULOSE SYRUP 20 GM/30 ML CUP PO SCH (08:57)
[2016-08-17] MEDS: SODIUM CHLORIDE 0.9% FLUSH 5 ML FLUSH FLUSH SCH (08:59)
[2016-08-17 09:03] VITALS: PULSE 87
[2016-08-17] MEDS: DOCUSATE SODIUM 100 MG CAP PO SCH (11:00)
[2016-08-17 12:00] VITALS: BP 114/73; PULSE 85; RESP 17; TEMP 97.2; O2SAT 95
[2016-08-17] MEDS ORDERED: BACT800T5 PO (12:23)
[2016-08-17] MEDS ORDERED: LACT10SO PO (12:23)
[2016-08-17] MEDS ORDERED: ULTR50TA5 PO (12:23)
[2016-08-17] MEDS ORDERED: SPIR25 PO (12:23)
[2016-08-17] MEDS ORDERED: FURO20TA PO (12:23)
--- NOTE | 2016-08-17 12:24 | HHI.DCPOC ---
Discharge Care Plan Diagnosis: (1) Abdominal pain (2) HIV (human immunodeficiency virus infection) Your Health Problems Are: Difficulty with ADL Exercise Tolerance Chronic Pain Goals to Promote Your Health * To prevent worsening of your condition and complications * To maintain your health at the optimal level Directions to Meet Your Goals Take your medications as prescribed Follow your dietary instruction Follow activity as directed Keep your appointments as scheduled Take your immunizations and boosters as scheduled If your symptoms worsen call your PCP, if no PCP go to Urgent Care Center or Emergency Room Smoking is Dangerous to Your Health. Avoid second hand smoke Call the 24-hour hour crisis hotline for domestic abuse at Victo rHugo Cruz MD Aug 17, 2016 12:24
[2016-08-17] MEDS ORDERED: PANT40TA3 PO (12:25)
--- NOTE | 2016-08-17 12:29 | HHI.DS ---
Discharge Summary Admission Date Aug 10, 2016 at 22:16 Discharge Date: Aug 17, 2016 Admitting Diagnosis Abdominal pain with ascites, cp ro mi (1) HIV (human immunodeficiency virus infection) ICD Code: Z21 Diagnosis: Principal (2) Severe protein-calorie malnutrition ICD Code: E43 Diagnosis: Principal (3) Chronic gastritis ICD Code: K29.50 Diagnosis: Principal (4) Abdominal pain ICD Code: R10.9 Diagnosis: Principal Procedures EGD with dilatation and paracentesis Brief History - From Admission 51-year-old female with a past medical history of HIV and GERD who presented with 4 days of abdominal pain. The patient reports that she began having generalized abdominal pain or days ago. She was having vomiting 4 days ago and has not been able to tolerate oral intake or medications since then due to persistent nausea. She had loose stools 3 days ago, no BM since then. Subjective chills, no fevers. She had some lower middle chest discomfort when she was vomiting 4 days ago, no chest pain since then. Denies any shortness of breath. She reports itching on her back. She states a few weeks ago she saw her PCP, Dr. Garcia, who told her that she had a liver infection and gave her a pill, doesn't recall what it was. She denies any history of hepatitis. She is not a great historian. Significant Findings Laboratory Tests Test 08/16/16 17:50 Peritoneal Fluid WBC 39 /MM3 (0-10) Peritoneal Fluid RBC 19 /MM3 (0-0) Imaging Last Impressions Abdomen Ultrasound 08/11/16 0000 Signed Impressions: Service Date/Time: Thursday, August 11, 2016 11:47 - CONCLUSION: Cirrhotic appearing liver with a large amount of free fluid seen predominantly within the right upper quadrant and within the midline pelvis. Christiana Dash MD Abdomen/Pelvis CT 08/10/162106 Signed Impressions: Service Date/Time: Wednesday, August 10, 2016 21:23 - CONCLUSION: 1. Moderate ascites with varicosities. 2. Inhomogeneous liver all suggesting cirrhosis. Yosef Puente MD FACR Chest X-Ray 08/10/[id number] Signed Impressions: Service Date/Time: Wednesday, August 10, 2016 19:31 - CONCLUSION: Negative chest for acute disease. Yosef Puente MD FACR PE at Discharge GENERAL: Well-developed well-nourished. In no acute distress. SKIN: Warm and dry. Improving excoriations and rash on the abdomen. HEENT: Normocephalic. Pupils equal and round. Mucous membranes pink and moist. CARDIOVASCULAR: Regular rate and rhythm. No murmur appreciated. RESPIRATORY: No accessory muscle use. Clear to auscultation. Breath sounds equal bilaterally. GASTROINTESTINAL: Abdomen soft, non-tender, distended. Bowel sounds x4. MUSCULOSKELETAL: No obvious deformities. No clubbing or cyanosis. No edema. NEUROLOGICAL: Awake and alert. No focal neurological deficits. Moves upper and lower extremities spontaneously. Normal speech. PSYCHIATRIC: Appropriate mood and affect; insight and judgment normal. Hospital Course 51-year-old female with a past medical history of HIV and GERD who presented with 4 days of abdominal pain Abdominal pain, Ascites, possible SBP: Abd/pelvis CT images showed moderate ascites with varicosities and inhomogeneous liver; suggests cirrhosis. Bilirubin 2.0, AST 120, alkaline phos 279. Abdominal U/S showed cirrhotic liver with large amount of free fluid. Hepatitis panel negative. Empiric coverage for SBP with IV ceftriaxone received a total of 7 days. Status post Paracentesis, studies do not indicate SBP. Previous EGD pathology reviewed, showed chronic gastritis, changed IV PPI to oral. S/p IVF. Antiemetics prn. Consulted GI, performed EGD w/ dilatation 08/13, appreciate GI input. Stable continue Lasix and spironolactone. Consider starting Inderal when more hemodynamically stable, BP borderline hypotensive. Dysphagia: Improved after EGD with dilation as above. Diet as tolerated. Atypical chest pain: Occurred 4 days prior to admission when the patient was retching. EKG with no acute changes. Troponin negative 3. ACS ruled out per protocol. Chest pain resolved. HIV: Patient needs to f/up with outpatient ID physician to restart HAART; discussed again with the patient. She has been off for 4 months because she couldn't swallow the pills and gave GI upset. Lymphocyte profile reviewed, CD4 count remains less than 20. Start Bactrim for PCP prophylaxis Scabies: patient with diffuse rash, consistent with scabies. S/p treatment with permethrin x1 on 08/12. Control itching with hydroxyzine and calamine lotion. Improving. Tobacco abuse: Counseled on cessation. Nicotine patch. Hypocalcemia: Received IV calcium gluconate in the ED. Likely secondary to poor nutrition. Monitor. Severe protein calorie malnutrition: Cachectic on exam, BMI 15 and albumin 1.8. Added ensure to meals. DVT prophylaxis: SCDs Pt Condition on Discharge: Stable Discharge Disposition: Discharge Home Discharge Time: <= 30 minutes Discharge Instructions DIET: Follow Instructions for: Heart Healthy Diet Activities you can perform: Regular-No Restrictions Activities to Avoid: Driving Follow up Referrals: Infectious Disease - 1 Week PCP Follow-up - 1 Week New Medications: Spironolactone (Aldactone) 25 Mg Tab 25 MG PO BIDPC Prevent Heart Failure #60 Ref 0 TAB Furosemide (Furosemide) 20 Mg Tab 20 MG PO BID@09,18 Prevent Heart Failure #60 TAB Lactulose Liq (Lactulose Liq) 10 Gm/15 Ml Soln 30 ML PO DAILY Prevent Constipation #30 ML Pantoprazole (Pantoprazole) 40 Mg Tab 40 MG PO DAILY Manage Heartburn #30 TAB Sulfamethoxazole-Trimethoprim (Bactrim DS) 800-160 Mg Tab 1 TAB PO MoWeFr@09 Infection #12 TAB Tramadol (Ultram) 50 Mg Tab 50 MG PO Q6HR PRN pain #28 TAB Continued Medications: Diphenoxylate-Atropine (Lomotil) 2.5-0.025 Mg Tab 2 TAB PO QID PRN DIARRHEA Ref 0 TAB Hydrocodone-Acetaminophen (Clifton) 10-325 Mg Tab 1 TAB PO Q6H PRN PAIN Ref 0 TAB Multiple Vitamins W/ Minerals (Multi Adult Gummies) 1 Chw Chw 1 CHEW CHEW DAILY Victor Hugo Cruz MD Aug 17, 2016 12:29
--- NOTE | 2016-08-18 08:07 | RADRPT ---
EXAM DATE/TIME: 08/16/2016 15:39 [facility] COMPARISON: No previous studies available for comparison. INDICATIONS : Ascites. MEDICAL HISTORY : Cerebrovascular accident. Seizure. Substance abuse. Liver disease. Ectopic . SURGICAL HISTORY : section. Exploratory laparotomy. ENCOUNTER: Initial ACUITY: 4 - 6 days PAIN SCORE: 0/10 LOCATION: Right lower quadrant FLUID: Total volume of 400 cc of clear, yellow fluid was removed. Fluid was sent to lab for ordered studies. Post procedure scanning reveals no hematoma or other complication. TECHNIQUE: 1. Ultrasound guidance for abdominal paracentesis. 2. Paracentesis. The risks, benefits, and alternatives to ultrasound guided paracentesis were explained to the patient in detail including the risk of bleeding and infection. Written and verbal informed consent was obt ained. With the patient on the ultrasound table, ultrasound imaging was used to select the most appropriate approach for paracentesis. Overlying skin was prepped and draped in the usual sterile fashion and wi th a local anesthetic, a dermatotomy was made with an 11 blade scalpel. A 6 Arabic [id number] ca theter was introduced into the peritoneal cavity and fluid was collected. The patient tolerated the procedure well and left the ultrasound suite in stable condition. CONCLUSION: Uncomplicated ultrasound guided paracentesis. Yosef Puente MD FACR on August 18, 2016 at 8:04 Board Certified Radiologist. This report was verified electronically.
[2016-08-18] MEDS ORDERED: SULFAMETHOXAZOLE-TRIMETHOPRIM DS 800-160 MG TAB PO SCH (09:00)
== END 2016-08-17 13:03 | disposition home or self-care (01) | DRG 432 ==
LOC: NEPE 17:11 → OBSVTOIN 22:16 → NEDA 22:16 → INTOOBSV 22:16 → NEPFCDU 08-11 01:38 → OBSVTOIN 08-13 12:27 → N06B 08-14 23:15
PROVIDERS: ADMIT Internal Medicine; ATTEND Internal Medicine
PROC: 0D738ZZ Dilation of Lower Esophagus, Via Natural or Artificial Opening Endoscopic (ICD-10-PCS; 2016-08-13)
PROC: 0W9G3ZX Drainage of Peritoneal Cavity, Percutaneous Approach, Diagnostic (ICD-10-PCS; principal; 2016-08-16)
DX: K74.60 Unspecified cirrhosis of liver (principal); B20 Human immunodeficiency virus [HIV] disease; E43 Unspecified severe protein-calorie malnutrition; R18.8 Other ascites; D69.6 Thrombocytopenia, unspecified; E83.51 Hypocalcemia; Z68.1 Body mass index [BMI] 19.9 or less, adult; K22.2 Esophageal obstruction; K29.50 Unspecified chronic gastritis without bleeding; K21.9 Gastro-esophageal reflux disease without esophagitis; R13.10 Dysphagia, unspecified; B86 Scabies; R07.89 Other chest pain; D64.9 Anemia, unspecified; F17.210 Nicotine dependence, cigarettes, uncomplicated
CPT/HCPCS: 49083; 71010; 74177; 76705; 80053; 80074; 81001; 82042; 82103; 82105; 82390; 82550; 82728; 82945; 83520; 83540; 83550; 83605; 83615; 83690; 83880; 84157; 84484; 85025; 85610; 85730; 86140; 86256; 86355; 86357; 86359; 86360; 87040; 87070; 87086; 87205; 88112; 88305; 89051; 93005; 96361; 96374; 96375; C1729; C1769; C9113; J0610; J0696; J2270; J2405; J3480; J7030; Q9967

== ENCOUNTER 2016-09-18 14:42 | Emergency (ER) | payer MEDICARE, MEDICAID ==
[~2016-09-18] VITALS: Ht 162.6 cm; Wt 50.0 kg
[~2016-09-18 14:42] MED LIST changes: -AZIT600 PO; +BACT800T5 PO; -FLUC100T41 PO; +FURO20TA PO; +HYDR-3366 PO; -KPHOS250 PO; +LACT10SO PO; -LEVA750T PO; +LOMO2.5T PO; +MULT1CHW33 CHEW; +PANT40TA3 PO; -PROT40TA PO; +SPIR25 PO; -SULF-154 PO; +ULTR50TA5 PO
[2016-09-18 14:43] VITALS: BP 133/97; PULSE 97; RESP 18; TEMP 98.1; O2SAT 100
[2016-09-18 15:45] VITALS: O2SAT 95
[2016-09-18] MEDS ORDERED: SODIUM CHLORIDE 0.9% FLUSH 5 ML FLUSH IVF PRN (16:15)
--- NOTE | 2016-09-18 16:43 | PD ---
HPI Chief Complaint: GI Complaint Time Seen by Provider: 16:06 Travel History International Travel<30 days: No Contact w/Intl Traveler<30days: No Traveled to known affect area: No History of Present Illness HPI Is a 51-year-old female with a history of HIV last CD4 count was 20 presents emergency Department with rash all over for the past month, swelling of her feet for the past week. Patient also has noticed increased abdominal girth. Patient was admitted last month for new onset diabetes, she was discharged on multiple antibiotics as well as highly active antiretroviral therapy which she has not been taking because the pills sizes are too big. Patient initial complaint to me is that she is cold and she needs socks which she reiterates multiple times throughout my history. She denies any fevers denies any weight loss. Patient also states she's been having some blood streaking in the stools. She has not followed up with her primary care physician or infectious disease officer since discharged from the hospital. Denies any cough. PFSH Past Medical History Arthritis: No Asthma: No Autoimmune Disease: Yes Blood Disorders: No Anxiety: No Depression: No Heart Rhythm Problems: No Cancer: No Cardiovascular Problems: No High Cholesterol: No Chemotherapy: No Chest Pain: No Congestive Heart Failure: No COPD: No Cerebrovascular Accident: Yes (stroke) Diabetes: No Diminished Hearing: No Endocrine: No Gastrointestinal Disorders: Yes (RECENT ABD PAIN AND NAUSEA/ diarrhea) GERD: No Genitourinary: No Headaches: Yes Hiatal Hernia: No Immune Disorder: Yes (HIV) Kidney Stones: No Musculoskeletal: No Neurologic: Yes Psychiatric: No Reproductive: No Respiratory: No Migraines: Yes Radiation Therapy: No Renal Failure: No Seizures: Yes Sickle Cell Disease: No Sleep Apnea: No Thyroid Disease: No Ulcer: No Menopausal: Yes : 2 Para: 0 Miscarriage: 1 : 1 Ectopic : Yes Past Surgical History Abdominal Surgery: Yes (EXP. LAP.) AICD: No Arteriovenous Shunt: No Cardiac Surgery: No Section: Yes Ear Surgery: No Endocrine Surgery: No Eye Surgery: No Genitourinary Surgery: No Gynecologic Surgery: Yes Insulin Pump: No Joint Replacement: No Oral Surgery: No Pacemaker: No Thoracic Surgery: No Other Surgery: Yes Social History Alcohol Use: Yes (OCCAS) Tobacco Use: Yes (one pack per week) Substance Use: Yes (COCAINE, ALTHOUGH PT DENIES) Allergies-Medications (Allergen,Severity, Reaction): Coded Allergies: No Known Allergies (Verified , 09/18/16) Reported Meds & Prescriptions Reported Meds & Active Scripts Active Permethrin Topical (Permethrin) 5% Cream 1 Applic TOPICAL ONCE Sulfamethoxazole-Trimethoprim Liq 200-40 Mg/5 Ml Susp 20 Ml PO DAILY Furosemide 20 Mg Tab 20 Mg PO BID@09,18 Lactulose Liq (Lactulose) 10 Gm/15 Ml Soln 30 Ml PO DAILY Pantoprazole (Pantoprazole Sodium) 40 Mg Tab 40 Mg PO DAILY Ultram (Tramadol HCl) 50 Mg Tab 50 Mg PO Q6HR PRN Aldactone (Spironolactone) 25 Mg Tab 25 Mg PO BIDPC Bactrim DS (Sulfamethoxazole-Trimethoprim) 800-160 Mg Tab 1 Tab PO MOWEFR@09 Reported Multi Adult Gummies (Multiple Vitamins W/ Minerals) 1 Chw Chw 1 Chew CHEW DAILY [place] (Hydrocodone-Acetaminophen) 10-325 Mg Tab 1 Tab PO Q6H PRN Lomotil (Diphenoxylate-Atropine) 2.5-0.025 Mg Tab 2 Tab PO QID PRN Review of Systems Except as stated in HPI: all other systems reviewed are Neg Physical Exam Narrative GENERAL: Well-developed, thin in no apparent distress. SKIN: Warm and dry. There is a dry scaly rash in bilateral upper extremities and chest consistent with scabies. HEAD: Atraumatic. Normocephalic. EYES: Pupils equal and round. No scleral icterus. No injection or drainage. ENT: No nasal bleeding or discharge. Mucous membranes pink and moist. NECK: Trachea midline. No JVD. CARDIOVASCULAR: Regular rate and rhythm. No murmur appreciated. RESPIRATORY: No accessory muscle use. Clear to auscultation. Breath sounds equal bilaterally. GASTROINTESTINAL: Abdomen soft, non-tender, nondistended. Hepatic and splenic margins not palpable. MUSCULOSKELETAL: No obvious deformities. No clubbing. No cyanosis. No edema. NEUROLOGICAL: Awake and alert. No obvious cranial nerve deficits. Motor grossly within normal limits. Normal speech. PSYCHIATRIC: Appropriate mood and affect; insight and judgment normal. Data Data Last Documented VS Vital Signs Date Time Temp Pulse Resp B/P Pulse Ox O2 Delivery O2 Flow Rate FiO2 09/18/16 17:00 96 18 128/88 99 Room Air 09/18/16 14:43 98.1 Orders Complete Blood Count With Diff (09/18/16 16:06) Comprehensive Metabolic Panel (09/18/16 16:06) Lipase (09/18/16 16:06) Lactic Acid (09/18/16 16:06) Prothrombin Time / Inr (Pt) (09/18/16 16:06) Act Partial Throm Time (Ptt) (09/18/16 16:06) Iv Access Insert/Monitor (09/18/16 16:06) Ecg Monitoring (09/18/16 16:06) Oximetry (09/18/16 16:06) Sodium Chloride 0.9% Flush (Ns Flush) (09/18/16 16:15) Equip, Isolation Cart (09/18/16 16:18) Isolation (09/18/16 16:18) Sodium Chlor 0.9% 1000 Ml Inj (Ns 1000 M (09/18/16 18:15) Labs Laboratory Tests Test 09/18/16 17:00 White Blood Count 5.5 TH/MM3 Red Blood Count 2.95 MIL/MM3 Hemoglobin 9.2 GM/DL Hematocrit 27.0 % Mean Corpuscular Volume 91.5 FL Mean Corpuscular Hemoglobin 31.3 PG Mean Corpuscular Hemoglobin 34.2 % Concent Red Cell Distribution Width 16.0 % Platelet Count 130 TH/MM3 Mean Platelet Volume 9.7 FL Neutrophils (%) (Auto) 77.7 % Lymphocytes (%) (Auto) 11.7 % Monocytes (%) (Auto) 9.2 % Eosinophils (%) (Auto) 0.6 % Basophils (%) (Auto) 0.8 % Neutrophils # (Auto) 4.3 TH/MM3 Lymphocytes # (Auto) 0.6 TH/MM3 Monocytes # (Auto) 0.5 TH/MM3 Eosinophils # (Auto) 0.0 TH/MM3 Basophils # (Auto) 0.0 TH/MM3 CBC Comment DIFF FINAL Differential Comment Prothrombin Time 13.4 SEC Prothromb Time International 1.2 RATIO Ratio Activated Partial 34.5 SEC Thromboplast Time Sodium Level 140 MEQ/L Potassium Level 3.7 MEQ/L Chloride Level 109 MEQ/L Carbon Dioxide Level 23.0 MEQ/L Anion Gap 8 MEQ/L Blood Urea Nitrogen 7 MG/DL Creatinine 0.65 MG/DL Estimat Glomerular Filtration 116 ML/MIN Rate Random Glucose 79 MG/DL Lactic Acid Level 3.1 mmol/L Calcium Level 8.0 MG/DL Total Bilirubin 1.3 MG/DL Aspartate Amino Transf 105 U/L (AST/SGOT) Alanine Aminotransferase 44 U/L (ALT/SGPT) Alkaline Phosphatase 241 U/L Total Protein 8.3 GM/DL Albumin 1.5 GM/DL Lipase 300 U/L MDM Medical Decision Making Medical Screen Exam Complete: Yes Emergency Medical Condition: Yes Differential Diagnosis Scabies, rash, AIDS, noncompliance with medications, pneumonia likely, severe bacterial infection unlikely, sepsis unlikely, recurrent ascites. Narrative Course Patient's a 51-year-old female with advanced HIV infection a last CD4 count was undetectable. She is a rash generalized over her whole body which consistent with scabies. She was treated for scabies on her previous admission to the hospital for ascites which is new onset. She was worked up for spontaneous act. Rhinitis including a paracentesis which was negative. Patient is well- appearing and her first complaint to me was actually that she needed socks. My impression is a clinically ill patient without any acute arterial fungal infections who does not have any acute life-threatening condition. Discussed with her need for follow-up with a primary care physician and adherence to medications. She has not been taking her Bactrim because the pills are too large. I have prescribed her suspension instead. To begin other is here as well who has similar rash on his body which is pruritic. Highly consistent with scabies. I have also prescribed her permethrin cream with instructions on how to use. Diagnosis Primary Impression: Ascites Qualified Code: R18.8 - Other ascites Additional Impressions: Scabies HIV (human immunodeficiency virus infection) Abdominal distension Scripts Permethrin Topical 5% Cream1 Applic TOPICAL ONCE #1 TUBE Ref 2 Prov:Jose Pina MD 09/18/16 Sulfamethoxazole-Trimethoprim Liq 200-40 Mg/5 Ml Susp20 Ml PO DAILY #30 ML Ref 0 Prov:Jose Pina MD 09/18/16 Furosemide 20 Mg Tab20 Mg PO BID@ #60 TAB Prov:Jose Pina MD 09/18/16 Lactulose Liq 10 Gm/15 Ml Soln30 Ml PO DAILY #30 ML Prov:Jose iPna MD 09/18/16 Disposition: DISCHARGE HOME Condition: Stable Jose Pina MD Sep 18, 2016 16:43
[2016-09-18 17:00] VITALS: BP 128/88; PULSE 96; RESP 18; O2SAT 99
[2016-09-18 17:42] LABS: AUTOMATED NEUTROPHIL # 4.3 TH/MM3 (1.8-7.7); BASOPHIL % 0.8 % (0.0-2.0); EOSINOPHIL % 0.6 % (0.0-4.0); HEMO FLAGS DIFF FINAL; LYMPH % 11.7 % (9.0-44.0); LYMPHOCYTE # 0.6 TH/MM3 (1.0-4.8); MEAN CELL VOLUME 91.5 FL (80.0-100.0); MEAN CORPUSCULAR HEMOGLOBIN 31.3 PG (27.0-34.0); MEAN CORPUSCULAR HGB CONC 34.2 % (32.0-36.0); MONO % 9.2 % (0.0-8.0); NEUT % 77.7 % (16.0-70.0); PLATELET COUNT 130 TH/MM3 (150-450); RED BLOOD COUNT 2.95 MIL/MM3 (4.00-5.30); WHITE BLOOD COUNT 5.5 TH/MM3 (4.0-11.0)
[2016-09-18 17:44] LABS: APTT (PATIENT) 34.5 SEC (24.3-30.1); INTERNATIONAL NORMALIZED RATIO 1.2 RATIO; PROTHROMBIN TIME - PATIENT 13.4 SEC (9.8-11.6)
[2016-09-18 18:03] LABS: ALKALINE PHOSPHATASE 241 U/L (45-117); ALT (GPT) 44 U/L (10-53); TOTAL BILIRUBIN ADULT 1.3 MG/DL (0.2-1.0)
[2016-09-18] MEDS ORDERED: SODIUM CHLOR 0.9% 1000 ML INJ 1,000 ML IV ONE (18:15)
[2016-09-18 18:27] LABS: ANION GAP 8 MEQ/L (5-15); AST (GOT) 105 U/L (15-37); BLOOD UREA NITROGEN 7 MG/DL (7-18); CHLORIDE 109 MEQ/L (98-107); GLOMERULAR FILTRATION RATE 116 ML/MIN (>89); POTASSIUM 3.7 MEQ/L (3.5-5.1); SODIUM (NA) 140 MEQ/L (136-145)
[2016-09-18] MEDS ORDERED: LACT10SO PO (19:21)
[2016-09-18] MEDS ORDERED: FURO20TA PO (19:21)
[2016-09-18] MEDS ORDERED: SULF20OR2 PO (19:21)
--- NOTE | 2016-09-18 19:22 | PD ---
HPI Chief Complaint: GI Complaint Time Seen by Provider: 16:06 Travel History International Travel<30 days: No Contact w/Intl Traveler<30days: No Traveled to known affect area: No PFSH Past Medical History Arthritis: No Asthma: No Autoimmune Disease: Yes Blood Disorders: No Anxiety: No Depression: No Heart Rhythm Problems: No Cancer: No Cardiovascular Problems: No High Cholesterol: No Chemotherapy: No Chest Pain: No Congestive Heart Failure: No COPD: No Cerebrovascular Accident: Yes (stroke) Diabetes: No Diminished Hearing: No Endocrine: No Gastrointestinal Disorders: Yes (RECENT ABD PAIN AND NAUSEA/ diarrhea) GERD: No Genitourinary: No Headaches: Yes Hiatal Hernia: No Immune Disorder: Yes (HIV) Kidney Stones: No Musculoskeletal: No Neurologic: Yes Psychiatric: No Reproductive: No Respiratory: No Migraines: Yes Radiation Therapy: No Renal Failure: No Seizures: Yes Sickle Cell Disease: No Sleep Apnea: No Thyroid Disease: No Ulcer: No ?: Not Menopausal: Yes : 2 Para: 0 Miscarriage: 1 : 1 Ectopic : Yes Past Surgical History Abdominal Surgery: Yes (EXP. LAP.) AICD: No Arteriovenous Shunt: No Cardiac Surgery: No Section: Yes Ear Surgery: No Endocrine Surgery: No Eye Surgery: No Genitourinary Surgery: No Gynecologic Surgery: Yes Insulin Pump: No Joint Replacement: No Oral Surgery: No Pacemaker: No Thoracic Surgery: No Other Surgery: Yes (, ectopic ) Social History Alcohol Use: Yes (OCCAS) Tobacco Use: Yes (one pack per week) Substance Use: Yes (COCAINE, ALTHOUGH PT DENIES) Allergies-Medications (Allergen,Severity, Reaction): Coded Allergies: No Known Allergies (Verified , 09/18/16) Reported Meds & Prescriptions Reported Meds & Active Scripts Active Permethrin Topical (Permethrin) 5% Cream 1 Applic TOPICAL ONCE Sulfamethoxazole-Trimethoprim Liq 200-40 Mg/5 Ml Susp 20 Ml PO DAILY Furosemide 20 Mg Tab 20 Mg PO BID@18 Lactulose Liq (Lactulose) 10 Gm/15 Ml Soln 30 Ml PO DAILY Pantoprazole (Pantoprazole Sodium) 40 Mg Tab 40 Mg PO DAILY Ultram (Tramadol HCl) 50 Mg Tab 50 Mg PO Q6HR PRN Aldactone (Spironolactone) 25 Mg Tab 25 Mg PO BIDPC Bactrim DS (Sulfamethoxazole-Trimethoprim) 800-160 Mg Tab 1 Tab PO MOWEFR@09 Reported Multi Adult Gummies (Multiple Vitamins W/ Minerals) 1 Chw Chw 1 Chew CHEW DAILY [place] (Hydrocodone-Acetaminophen) 10-325 Mg Tab 1 Tab PO Q6H PRN Lomotil (Diphenoxylate-Atropine) 2.5-0.025 Mg Tab 2 Tab PO QID PRN Data Data Last Documented VS Vital Signs Date Time Temp Pulse Resp B/P Pulse Ox O2 Delivery O2 Flow Rate FiO2 09/18/16 17:00 96 18 128/88 99 Room Air 09/18/16 14:43 98.1 Orders Complete Blood Count With Diff (09/18/16 16:06) Comprehensive Metabolic Panel (09/18/16 16:06) Lipase (09/18/16 16:06) Lactic Acid (09/18/16 16:06) Prothrombin Time / Inr (Pt) (09/18/16 16:06) Act Partial Throm Time (Ptt) (09/18/16 16:06) Iv Access Insert/Monitor (09/18/16 16:06) Ecg Monitoring (09/18/16 16:06) Oximetry (09/18/16 16:06) Sodium Chloride 0.9% Flush (Ns Flush) (09/18/16 16:15) Equip, Isolation Cart (09/18/16 16:18) Isolation 08,20 (09/18/16 16:18) Sodium Chlor 0.9% 1000 Ml Inj (Ns 1000 M (09/18/16 18:15) Labs Laboratory Tests Test 09/18/16 17:00 White Blood Count 5.5 TH/MM3 Red Blood Count 2.95 MIL/MM3 Hemoglobin 9.2 GM/DL Hematocrit 27.0 % Mean Corpuscular Volume 91.5 FL Mean Corpuscular Hemoglobin 31.3 PG Mean Corpuscular Hemoglobin 34.2 % Concent Red Cell Distribution Width 16.0 % Platelet Count 130 TH/MM3 Mean Platelet Volume 9.7 FL Neutrophils (%) (Auto) 77.7 % Lymphocytes (%) (Auto) 11.7 % Monocytes (%) (Auto) 9.2 % Eosinophils (%) (Auto) 0.6 % Basophils (%) (Auto) 0.8 % Neutrophils # (Auto) 4.3 TH/MM3 Lymphocytes # (Auto) 0.6 TH/MM3 Monocytes # (Auto) 0.5 TH/MM3 Eosinophils # (Auto) 0.0 TH/MM3 Basophils # (Auto) 0.0 TH/MM3 CBC Comment DIFF FINAL Differential Comment Prothrombin Time 13.4 SEC Prothromb Time International 1.2 RATIO Ratio Activated Partial 34.5 SEC Thromboplast Time Sodium Level 140 MEQ/L Potassium Level 3.7 MEQ/L Chloride Level 109 MEQ/L Carbon Dioxide Level 23.0 MEQ/L Anion Gap 8 MEQ/L Blood Urea Nitrogen 7 MG/DL Creatinine 0.65 MG/DL Estimat Glomerular Filtration 116 ML/MIN Rate Random Glucose 79 MG/DL Lactic Acid Level 3.1 mmol/L Calcium Level 8.0 MG/DL Total Bilirubin 1.3 MG/DL Aspartate Amino Transf 105 U/L (AST/SGOT) Alanine Aminotransferase 44 U/L (ALT/SGPT) Alkaline Phosphatase 241 U/L Total Protein 8.3 GM/DL Albumin 1.5 GM/DL Lipase 300 U/L MDM Medical Decision Making Medical Screen Exam Complete: Yes Emergency Medical Condition: Yes Diagnosis Primary Impression: Abdominal distension Additional Impression: Scabies Additional Instructions: Keep your appointments as scheduled. Med/Other Pt SpecificInfo: Prescription(s) given Scripts Permethrin Topical 5% Cream1 Applic TOPICAL ONCE #1 TUBE Ref 2 Prov:Jose Pina MD 09/18/16 Sulfamethoxazole-Trimethoprim Liq 200-40 Mg/5 Ml Susp20 Ml PO DAILY #30 ML Ref 0 Prov:Jose Pina MD 09/18/16 Furosemide 20 Mg Tab20 Mg PO BID@18 #60 TAB Prov:Jose Pina MD 09/18/16 Lactulose Liq 10 Gm/15 Ml Soln30 Ml PO DAILY #30 ML Prov:Jose Pina MD 09/18/16 Disposition: 01 DISCHARGE HOME Condition: Stable Jose Pina MD Sep 18, 2016 19:22 Jose Pina MD Sep 18, 2016 19:22
[2016-09-18] MEDS ORDERED: PERM5CRE TOPICAL ×2 (19:27→19:35)
== END 2016-09-18 19:39 | disposition home or self-care (01) ==
LOC: NEPE 14:42
DX: R18.8 Other ascites (principal); B20 Human immunodeficiency virus [HIV] disease; B86 Scabies
CPT/HCPCS: 80053; 83605; 83690; 85025; 85610; 85730; 96374; 99284; J7030

== ENCOUNTER 2016-10-20 20:22 | Emergency (ER) | payer MEDICARE, MEDICAID ==
[~2016-10-20 20:22] MED LIST changes: +PERM5CRE TOPICAL; +SULF20OR2 PO
[2016-10-20 20:25] VITALS: BP 115/58; PULSE 107; RESP 18; TEMP 97.6; O2SAT 100
[2016-10-20 22:52] LABS: AUTOMATED NEUTROPHIL # 4.4 TH/MM3 (1.8-7.7); BASOPHIL % 0.7 % (0.0-2.0); EOSINOPHIL # 0.1 TH/MM3 (0-0.4); HEMATOCRIT 24.4 % (35.0-46.0); HEMO FLAGS DIFF FINAL; LYMPH % 7.8 % (9.0-44.0); LYMPHOCYTE # 0.4 TH/MM3 (1.0-4.8); MEAN CELL VOLUME 92.2 FL (80.0-100.0); MEAN CORPUSCULAR HEMOGLOBIN 31.6 PG (27.0-34.0); MEAN CORPUSCULAR HGB CONC 34.3 % (32.0-36.0); MONO % 7.8 % (0.0-8.0); NEUT % 82.7 % (16.0-70.0); PLATELET COUNT 146 TH/MM3 (150-450); RED BLOOD COUNT 2.65 MIL/MM3 (4.00-5.30); RED CELL DISTRIBUTION WIDTH 18.2 % (11.6-17.2); WHITE BLOOD COUNT 5.3 TH/MM3 (4.0-11.0)
[2016-10-20 23:19] LABS: BACTERIA, URINE OCC /hpf; BLOOD, URINE NEG (NEG); CALCIUM OXALATE CRYSTALS,URINE OCC /hpf; COMMENT (UR) CULT NOT INDICATED; CULTURE IF INDICATED CULT NOT INDICATED; GLUCOSE,URINE NEG (NEG); HYALINE CAST, URINE 62 /lpf (RARE); KETONE, URINE NEG (NEG); MUCUS URINE FEW /lpf (OCC); NITRITE,URINE NEG (NEG); PH, URINE 5.5 (5.0-8.5); SQUAMOUS EPITHELIAL CELL URINE 4 /hpf (0-5); URINE COLOR DARK-YELLOW (YELLW/STRAW)
[2016-10-20 23:22] LABS: BICARBONATE 29.6 MEQ/L (21.0-32.0); TOTAL BILIRUBIN ADULT 1.3 MG/DL (0.2-1.0)
[2016-10-20 23:25] LABS: POTASSIUM 2.7 MEQ/L (3.5-5.1)
[2016-10-21] MEDS ORDERED: POTASSIUM CHLORIDE 25 MEQ EFFERVESCENT TAB PO ONE
[2016-10-21 00:36] LABS: APTT (PATIENT) 34.6 SEC (24.3-30.1); INTERNATIONAL NORMALIZED RATIO 1.3 RATIO; PROTHROMBIN TIME - PATIENT 14.8 SEC (9.8-11.6)
[2016-10-21] MEDS ORDERED: CALC600T4 PO (00:52)
--- NOTE | 2016-10-21 00:53 | PD ---
HPI Chief Complaint: GI Complaint Time Seen by Provider: 23:38 Travel History International Travel<30 days: No Contact w/Intl Traveler<30days: No Traveled to known affect area: No History of Present Illness HPI This is a 51-year-old female who has a history of HIV and cirrhosis who presents to the emergency department sent in by her primary care physician with prescriptions for a paracentesis and a GI consultation. She says she's been feeling distended for weeks, constant, moderate severity, with no fevers or chills. She says she normally is compliant with her HIV medications but hasn't taken it in a week. PFSH Past Medical History Arthritis: No Asthma: No Autoimmune Disease: Yes Blood Disorders: No Anxiety: No Depression: No Heart Rhythm Problems: No Cancer: No Cardiovascular Problems: No High Cholesterol: No Chemotherapy: No Chest Pain: No Congestive Heart Failure: No COPD: No Cerebrovascular Accident: Yes (stroke) Diabetes: No Diminished Hearing: No Endocrine: No Gastrointestinal Disorders: Yes (RECENT ABD PAIN AND NAUSEA/ diarrhea) GERD: No Genitourinary: No Headaches: Yes Hiatal Hernia: No Immune Disorder: Yes (HIV) Kidney Stones: No Musculoskeletal: No Neurologic: Yes Psychiatric: No Reproductive: No Respiratory: No Migraines: Yes Radiation Therapy: No Renal Failure: No Seizures: Yes Sickle Cell Disease: No Sleep Apnea: No Thyroid Disease: No Ulcer: No ?: Not Menopausal: Yes : 2 Para: 0 Miscarriage: 1 : 1 Ectopic : Yes Past Surgical History Abdominal Surgery: Yes (EXP. LAP.) AICD: No Arteriovenous Shunt: No Cardiac Surgery: No Section: Yes Ear Surgery: No Endocrine Surgery: No Eye Surgery: No Genitourinary Surgery: No Gynecologic Surgery: Yes Insulin Pump: No Joint Replacement: No Oral Surgery: No Pacemaker: No Thoracic Surgery: No Other Surgery: Yes (, ectopic ) Social History Alcohol Use: Yes (OCCAS) Tobacco Use: No (quit a month ago ) Substance Use: Yes (COCAINE ) Allergies-Medications (Allergen,Severity, Reaction): Coded Allergies: No Known Allergies (Verified , 10/20/16) Reported Meds & Prescriptions Reported Meds & Active Scripts Active Permethrin Topical (Permethrin) 5% Cream 1 Applic TOPICAL ONCE Sulfamethoxazole-Trimethoprim Liq 200-40 Mg/5 Ml Susp 20 Ml PO DAILY Furosemide 20 Mg Tab 20 Mg PO BID@,18 Lactulose Liq (Lactulose) 10 Gm/15 Ml Soln 30 Ml PO DAILY Pantoprazole (Pantoprazole Sodium) 40 Mg Tab 40 Mg PO DAILY Ultram (Tramadol HCl) 50 Mg Tab 50 Mg PO Q6HR PRN Aldactone (Spironolactone) 25 Mg Tab 25 Mg PO BIDPC Bactrim DS (Sulfamethoxazole-Trimethoprim) 800-160 Mg Tab 1 Tab PO MOWEFR@09 Reported Multi Adult Gummies (Multiple Vitamins W/ Minerals) 1 Chw Chw 1 Chew CHEW DAILY [place] (Hydrocodone-Acetaminophen) 10-325 Mg Tab 1 Tab PO Q6H PRN Lomotil (Diphenoxylate-Atropine) 2.5-0.025 Mg Tab 2 Tab PO QID PRN Review of Systems Except as stated in HPI: all other systems reviewed are Neg Physical Exam Narrative GENERAL: Cachectic, chronically ill-appearing SKIN: Warm and dry. HEAD: Atraumatic. Normocephalic. EYES: Pupils equal and round. No injection or drainage. ENT: Moist mucous membranes NECK: Trachea midline. CARDIOVASCULAR: Regular rate and rhythm. No murmur appreciated. RESPIRATORY: Clear to auscultation. Breath sounds equal bilaterally. GASTROINTESTINAL: Abdomen soft, distended, nontender with a fluid wave MUSCULOSKELETAL: No obvious deformities. NEUROLOGICAL: Awake and alert. No obvious cranial nerve deficits. Moving all extremities. PSYCHIATRIC: Appropriate mood and affect; insight and judgment normal. Data Data Last Documented VS Vital Signs Date Time Temp Pulse Resp B/P Pulse Ox O2 Delivery O2 Flow Rate FiO2 10/20/16 20:25 97.6 107 18 115/58 100 Room Air Orders Complete Blood Count With Diff (10/20/16 21:15) Comprehensive Metabolic Panel (10/20/16 21:15) Urinalysis - C+S If Indicated (10/20/16 21:15) Lipase (10/20/16 21:15) Potassium Chloride Eff (K-[place] Cl Eff) (10/21/16 00:00) Prothrombin Time / Inr (Pt) (10/20/16 23:48) Act Partial Throm Time (Ptt) (10/20/16 23:48) Labs Laboratory Tests Test 10/20/16 10/20/16 10/21/16 22:34 22:45 00:00 White Blood Count 5.3 TH/MM3 Red Blood Count 2.65 MIL/MM3 Hemoglobin 8.4 GM/DL Hematocrit 24.4 % Mean Corpuscular Volume 92.2 FL Mean Corpuscular Hemoglobin 31.6 PG Mean Corpuscular Hemoglobin 34.3 % Concent Red Cell Distribution Width 18.2 % Platelet Count 146 TH/MM3 Mean Platelet Volume 9.2 FL Neutrophils (%) (Auto) 82.7 % Lymphocytes (%) (Auto) 7.8 % Monocytes (%) (Auto) 7.8 % Eosinophils (%) (Auto) 1.0 % Basophils (%) (Auto) 0.7 % Neutrophils # (Auto) 4.4 TH/MM3 Lymphocytes # (Auto) 0.4 TH/MM3 Monocytes # (Auto) 0.4 TH/MM3 Eosinophils # (Auto) 0.1 TH/MM3 Basophils # (Auto) 0.0 TH/MM3 CBC Comment DIFF FINAL Differential Comment Sodium Level 140 MEQ/L Potassium Level 2.7 MEQ/L Chloride Level 104 MEQ/L Carbon Dioxide Level 29.6 MEQ/L Anion Gap 6 MEQ/L Blood Urea Nitrogen 10 MG/DL Creatinine 0.92 MG/DL Estimat Glomerular Filtration 78 ML/MIN Rate Random Glucose 98 MG/DL Calcium Level 7.2 MG/DL Protein Corrected Calcium 7.0 MG/DL Total Bilirubin 1.3 MG/DL Aspartate Amino Transf 47 U/L (AST/SGOT) Alanine Aminotransferase 15 U/L (ALT/SGPT) Alkaline Phosphatase 168 U/L Total Protein 7.7 GM/DL Albumin 1.1 GM/DL Lipase 272 U/L Urine Color DARK-YELLOW Urine Turbidity HAZY Urine pH 5.5 Urine Specific [place] 1.012 Urine Protein NEG mg/dL Urine Glucose (UA) NEG mg/dL Urine Ketones NEG mg/dL Urine Occult Blood NEG Urine Nitrite NEG Urine Bilirubin SMALL Urine Urobilinogen 4.0 MG/DL Urine Leukocyte Esterase MOD Urine RBC 4 /hpf Urine WBC 6 /hpf Urine Squamous Epithelial 4 /hpf Cells Urine Calcium Oxalate Crystals OCC /hpf Urine Bacteria OCC /hpf Urine Hyaline Casts 62 /lpf Urine Mucus FEW /lpf Microscopic Urinalysis Comment CULT NOT INDICATED Prothrombin Time 14.8 SEC Prothromb Time International 1.3 RATIO Ratio Activated Partial 34.6 SEC Thromboplast Time MDM Medical Decision Making Medical Screen Exam Complete: Yes Emergency Medical Condition: Yes Interpretation(s) Afebrile, tachycardic, normotensive Anemia which is chronic Hypokalemia Hypocalcemia Differential Diagnosis Cirrhosis, spontaneous bacterial peritonitis, electrolyte abnormality Narrative Course This is a 51-year-old female who presents to the emergency department handing me 2 prescriptions, one for a GI consultation and another for a paracentesis which were given to her by her primary care doctor several days ago. She has no acute complaints. She is chronically ill. Labs demonstrate hypokalemia and hypocalcemia but she is asymptomatic. She was given oral potassium replacement in the emergency department and will be discharged with supplementation for hypocalcemia. I hesitate to replete her potassium aggressively because she is on spironolactone. I don't think she requires admission for this at this time. She does require a therapeutic paracentesis. I spoke to the ultrasound department and the patient was given information for outpatient scheduling. Patient will be discharged home. Diagnosis Primary Impression: Ascites Qualified Code: R18.8 - Other ascites Additional Impressions: Hypokalemia Hypocalcemia Referrals: Juwan Lacy MD Patient Instructions: General Instructions Additional Instructions: If you develop severe or worsening abdominal pain, fever>100.4, persistent vomiting or inability to eat or drink return to the emergency department immediately. Call Sol at [phone] in the Ultrasound Department to schedule your paracentesis. Med/Other Pt SpecificInfo: Prescription(s) given Scripts Calcium Carbonate 1,500 Mg Tab1,500 Mg PO BID 7 Days Ref 0 1,500 mg calcium carbonate (600 mg elemental calcium) Prov:Ayde Sears MD 10/21/16 Disposition: DISCHARGE HOME Condition: Stable Ayde Sears MD Oct 21, 2016 00:53
[2016-10-21] MEDS ORDERED: CALCIUM GLUCONATE INJ 2 GM in DEXTROSE 5% IN WATER 100ML INJ 100 ML IV ONE ×2 (01:00)
== END 2016-10-21 02:03 | disposition home or self-care (01) ==
LOC: NEPA 20:22
DX: R18.8 Other ascites (principal); E87.6 Hypokalemia; E83.51 Hypocalcemia; K74.60 Unspecified cirrhosis of liver; Z21 Asymptomatic human immunodeficiency virus [HIV] infection status; Z86.79 Personal history of other diseases of the circulatory system; Z87.19 Personal history of other diseases of the digestive system; Z86.69 Personal history of other diseases of the nervous system and sense organs; Z87.891 Personal history of nicotine dependence
CPT/HCPCS: 80053; 81001; 83690; 85025; 85610; 85730; 96365; 99284; J0610

== ENCOUNTER 2016-10-22 08:29 | Day surgery (SDC) | payer MEDICARE, MEDICAID ==
[~2016-10-22 08:29] MED LIST changes: +CALC600T4 PO
[2016-10-22 10:05] VITALS: BP 114/73; PULSE 89; RESP 16; TEMP 98.4; O2SAT 90
--- NOTE | 2016-10-22 10:09 | RADRPT ---
EXAM DATE/TIME: 10/22/2016 08:56 [facility] COMPARISON: US GUIDED ABD PARACENTESIS, August 16, 2016, 15:39. INDICATIONS : Ascites. MEDICAL HISTORY : HIV. Cerebrovascular accident. Seizure. Substance abuse. ETOH abuse. Liver disease. Ectopic pregnan cy. SURGICAL HISTORY : section. Exploratory laparotomy. ENCOUNTER: Subsequent ACUITY: 1 day PAIN SCORE: 1/10 LOCATION: Right lower quadrant FLUID: Total volume of 3,600 cc of clear, yellow fluid was removed. Fluid was discarded. Paracentesis was therapeutic only. Post procedure scanning reveals no hematoma or other complication. TECHNIQUE: 1. Ultrasound guidance for abdominal paracentesis. 2. Paracentesis. The risks, benefits, and alternatives to ultrasound guided paracentesis were explained to the patient in detail including the risk of bleeding and infection. Written and verbal informed consent was obt ained. With the patient on the ultrasound table, ultrasound imaging was used to select the most appropriate approach for paracentesis. Overlying skin was prepped and draped in the usual sterile fashion and wi th a local anesthetic, a dermatotomy was made with an 11 blade scalpel. A 6 [place] [id number] ca theter was introduced into the peritoneal cavity and fluid was collected. The patient tolerated the procedure well and left the ultrasound suite in stable condition. CONCLUSION: Uncomplicated ultrasound guided paracentesis. Shay Stephens MD on October 22, 2016 at 10:07 Board Certified Radiologist. This report was verified electronically.
[2016-10-22 10:20] VITALS: BP 113/72; PULSE 89; RESP 16; O2SAT 90
[2016-10-22 10:33] VITALS: BP 112/72; PULSE 89; RESP 16; O2SAT 90
== END 2016-10-22 10:40 | disposition home or self-care (01) ==
LOC: HRAD 08:29 → HRIP 08:36 → HRAD 10:40
PROVIDERS: ATTEND General Practice
DX: R18.8 Other ascites (principal); Z86.73 Personal history of transient ischemic attack (TIA), and cerebral infarction without residual deficits
CPT/HCPCS: 49083; C1729

== ENCOUNTER 2016-10-31 00:06 | Emergency (ER) | payer MEDICARE, MEDICAID ==
[~2016-10-31] VITALS: Ht 162.6 cm; Wt 70.0 kg
[2016-10-31 00:10] VITALS: BP 99/56; PULSE 117; RESP 18; TEMP 99; O2SAT 96
--- NOTE | 2016-10-31 01:43 | PD ---
HPI Chief Complaint: Abdominal Pain Time Seen by Provider: 01:12 Travel History International Travel<30 days: No Contact w/Intl Traveler<30days: No Traveled to known affect area: No History of Present Illness HPI 51 year-old woman presents to the emergency department complaining of abdominal distention. She is a history of advanced HIV and AIDS, cirrhosis, gastritis. She had a paracentesis performed on the . She's been out of one of her medications, it sounds like her Lasix. She comes in now saying that she has worsening abdominal distention. History Past Medical History Narrative Medical HIV/AIDS Cirrhosis Gastritis Menopausal: Yes : 2 Para: 0 Social History Alcohol Use: Yes (OCC) Tobacco Use: No (quit a month ago ) Allergies-Medications (Allergen,Severity, Reaction): Coded Allergies: No Known Allergies (Verified , 10/31/16) Reported Meds & Prescriptions Reported Meds & Active Scripts Active Calcium Carbonate 1,500 Mg Tab 1,500 Mg PO BID 7 Days 1,500 mg calcium carbonate (600 mg elemental calcium) Sulfamethoxazole-Trimethoprim Liq 200-40 Mg/5 Ml Susp 20 Ml PO DAILY Furosemide 20 Mg Tab 20 Mg PO BID@09,18 Lactulose Liq (Lactulose) 10 Gm/15 Ml Soln 30 Ml PO DAILY Pantoprazole (Pantoprazole Sodium) 40 Mg Tab 40 Mg PO DAILY Aldactone (Spironolactone) 25 Mg Tab 25 Mg PO BIDPC Bactrim DS (Sulfamethoxazole-Trimethoprim) 800-160 Mg Tab 1 Tab PO MOWEFR@09 Reported Multi Adult Gummies (Multiple Vitamins W/ Minerals) 1 Chw Chw 1 Chew CHEW DAILY Lomotil (Diphenoxylate-Atropine) 2.5-0.025 Mg Tab 2 Tab PO QID PRN Review of Systems Except as stated in HPI: all other systems reviewed are Neg Physical Exam Narrative GENERAL: 51 year-old woman, no acute distress. Cachectic. SKIN: Focused skin assessment warm/dry. NECK: Trachea midline. No JVD. CARDIOVASCULAR: Regular rate and rhythm. No murmur appreciated. RESPIRATORY: No accessory muscle use. Clear to auscultation. Breath sounds equal bilaterally. GASTROINTESTINAL: Abdomen with distention, mild diffuse tenderness. MUSCULOSKELETAL: No obvious deformities. Cachectic. NEUROLOGICAL: Awake and alert. No obvious cranial nerve deficits. Motor grossly within normal limits. Normal speech. Data Data Last Documented VS Vital Signs Date Time Temp Pulse Resp B/P Pulse Ox O2 Delivery O2 Flow Rate FiO2 10/31/16 00:10 99.0 117 18 99/56 96 Room Air Orders Complete Blood Count With Diff (10/31/16 01:19) Comprehensive Metabolic Panel (10/31/16 01:19) Act Partial Throm Time (Ptt) (10/31/16 01:19) Prothrombin Time / Inr (Pt) (10/31/16 01:19) Furosemide Inj (Lasix Inj) (10/31/16 01:30) Acetamin-Hydrocod 325-5 Mg ([place] 5-325 (10/31/16 01:30) Labs Laboratory Tests Test 10/31/16 01:15 White Blood Count 7.0 TH/MM3 Red Blood Count 3.01 MIL/MM3 Hemoglobin 9.7 GM/DL Hematocrit 28.1 % Mean Corpuscular Volume 93.4 FL Mean Corpuscular Hemoglobin 32.2 PG Mean Corpuscular Hemoglobin 34.5 % Concent Red Cell Distribution Width 17.8 % Platelet Count 155 TH/MM3 Mean Platelet Volume 10.4 FL Neutrophils (%) (Auto) 83.5 % Lymphocytes (%) (Auto) 5.2 % Monocytes (%) (Auto) 8.9 % Eosinophils (%) (Auto) 1.4 % Basophils (%) (Auto) 1.0 % Neutrophils # (Auto) 5.8 TH/MM3 Lymphocytes # (Auto) 0.4 TH/MM3 Monocytes # (Auto) 0.6 TH/MM3 Eosinophils # (Auto) 0.1 TH/MM3 Basophils # (Auto) 0.1 TH/MM3 CBC Comment DIFF FINAL Differential Comment Sodium Level 141 MEQ/L Potassium Level 3.6 MEQ/L Chloride Level 105 MEQ/L Carbon Dioxide Level 27.6 MEQ/L Anion Gap 8 MEQ/L Blood Urea Nitrogen 10 MG/DL Creatinine 0.99 MG/DL Estimat Glomerular Filtration 71 ML/MIN Rate Random Glucose 72 MG/DL Calcium Level 7.5 MG/DL Total Bilirubin 1.5 MG/DL Aspartate Amino Transf 133 U/L (AST/SGOT) Alanine Aminotransferase 47 U/L (ALT/SGPT) Alkaline Phosphatase 198 U/L Total Protein 8.4 GM/DL Albumin 1.1 GM/DL MDM Medical Decision Making Medical Screen Exam Complete: Yes Emergency Medical Condition: Yes Interpretation(s) LABS: CBC remarkable for mild anemia. CMP remarkable for mildly elevated total bili. Wide gamma gap. Differential Diagnosis Ascites, infection, distention, other Narrative Course Medical decision making 51 year-old woman with AIDS and cirrhosis presents with recurrent ascites. She' s been out of one of her diuretics. She doesn't look toxic. We'll check labs, refer for outpatient therapeutic paracentesis on Tuesday. Follow-up with her primary doctor. Diagnosis Primary Impression: Ascites Additional Impression: Abdominal distension Additional Instructions: If you develop severe or worsening abdominal pain, fever>100.4, persistent vomiting or inability to eat or drink return to the emergency department immediately. Call [phone] in the Ultrasound Department to schedule your paracentesis first thing Tuesday morning. Med/Other Pt SpecificInfo: Prescription(s) given Disposition: DISCHARGE HOME Condition: Stable Eitan Cohen MD Oct 31, 2016 01:43
[2016-10-31] MEDS: FUROSEMIDE 20 MG/2 ML VIAL IV PUSH ONE (02:11)
[2016-10-31] MEDS: ACETAMINOPHEN/HYDROcodone 325 MG/5 MG TAB PO ONE (02:12)
[2016-10-31 02:13] LABS: AUTOMATED NEUTROPHIL # 5.8 TH/MM3 (1.8-7.7); BASOPHIL # 0.1 TH/MM3 (0-0.2); EOSINOPHIL # 0.1 TH/MM3 (0-0.4); EOSINOPHIL % 1.4 % (0.0-4.0); HEMATOCRIT 28.1 % (35.0-46.0); HEMO FLAGS DIFF FINAL; LYMPH % 5.2 % (9.0-44.0); LYMPHOCYTE # 0.4 TH/MM3 (1.0-4.8); MEAN CELL VOLUME 93.4 FL (80.0-100.0); MEAN CORPUSCULAR HEMOGLOBIN 32.2 PG (27.0-34.0); MEAN CORPUSCULAR HGB CONC 34.5 % (32.0-36.0); MONO % 8.9 % (0.0-8.0); NEUT % 83.5 % (16.0-70.0); PLATELET COUNT 155 TH/MM3 (150-450); RED BLOOD COUNT 3.01 MIL/MM3 (4.00-5.30); RED CELL DISTRIBUTION WIDTH 17.8 % (11.6-17.2)
[2016-10-31 02:24] LABS: ALKALINE PHOSPHATASE 198 U/L (45-117); TOTAL BILIRUBIN ADULT 1.5 MG/DL (0.2-1.0)
[2016-10-31 02:31] LABS: ALT (GPT) 47 U/L (10-53); ANION GAP 8 MEQ/L (5-15); AST (GOT) 133 U/L (15-37); BICARBONATE 27.6 MEQ/L (21.0-32.0); BLOOD UREA NITROGEN 10 MG/DL (7-18); CHLORIDE 105 MEQ/L (98-107); GLOMERULAR FILTRATION RATE 71 ML/MIN (>89); POTASSIUM 3.6 MEQ/L (3.5-5.1); SODIUM (NA) 141 MEQ/L (136-145)
[2016-10-31 02:35] LABS: INTERNATIONAL NORMALIZED RATIO 1.3 RATIO; PROTHROMBIN TIME - PATIENT 14.7 SEC (9.8-11.6)
[2016-10-31] MEDS ORDERED: SPIR25 PO (02:37)
[2016-10-31] MEDS ORDERED: FURO20TA PO (02:37)
[2016-10-31 03:32] VITALS: RESP 18
== END 2016-10-31 03:33 | disposition home or self-care (01) ==
LOC: NEPC 00:06
DX: R18.8 Other ascites (principal); R14.0 Abdominal distension (gaseous); B20 Human immunodeficiency virus [HIV] disease; K74.60 Unspecified cirrhosis of liver; Z87.891 Personal history of nicotine dependence; Z79.899 Other long term (current) drug therapy
CPT/HCPCS: 80053; 85025; 85610; 85730; 96374; 99284; J1940

== ENCOUNTER 2016-11-01 02:14 | Emergency (ER) | payer MEDICARE, MEDICAID ==
[~2016-11-01] VITALS: Ht 162.6 cm; Wt 50.0 kg
[~2016-11-01 02:14] MED LIST changes: -HYDR-3366 PO; -PERM5CRE TOPICAL; -ULTR50TA5 PO
[2016-11-01 02:31] VITALS: BP 119/87; PULSE 90; RESP 18; TEMP 98.6; O2SAT 98
[2016-11-01 03:35] VITALS: BP 128/77; PULSE 90; RESP 16; O2SAT 99
[2016-11-01] MEDS ORDERED: ONDANSETRON HCL 4 MG/2 ML VIAL IV PUSH ONE (03:45)
[2016-11-01] MEDS ORDERED: MORPHINE SULFATE 4 MG/ML INJ IV PUSH ONE (03:45)
[2016-11-01] MEDS ORDERED: FUROSEMIDE 40 MG/4 ML VIAL IV PUSH ONE (03:45)
--- NOTE | 2016-11-01 03:58 | PD ---
HPI Chief Complaint: Abdominal Pain Time Seen by Provider: 03:30 Travel History International Travel<30 days: No Contact w/Intl Traveler<30days: No Traveled to known affect area: No History of Present Illness HPI This is a 51-year-old female with history of cirrhosis, HIV/AIDS, gastritis she presents requesting paracentesis. She has a history of abdominal ascites, requiring frequent repeated paracentesis interventions. Most recently she underwent therapeutic paracentesis on October 22. She reports that since then she has had increased worsening ascites, abdominal distention, generalized pain. She reportedly ran out of her Aldactone and Lasix approximately 4-5 days ago. She was seen here yesterday, lab work was performed, she was given a prescription for outpatient therapeutic paracentesis. She presents back today with worsening pain. She reports that she called the outpatient ultrasound scheduling number and no one answers and she leaves a message and no one ever called back. She is somewhat of a poor historian. PFSH Past Medical History Arthritis: No Asthma: No Autoimmune Disease: Yes Blood Disorders: No Anxiety: No Depression: No Heart Rhythm Problems: No Cancer: No Cardiovascular Problems: No High Cholesterol: No Chemotherapy: No Chest Pain: No Congestive Heart Failure: No COPD: No Cerebrovascular Accident: Yes (stroke) Diabetes: No Diminished Hearing: No Endocrine: No Gastrointestinal Disorders: Yes (RECENT ABD PAIN AND NAUSEA/ diarrhea) GERD: No Genitourinary: Yes Headaches: Yes Hiatal Hernia: No Immune Disorder: Yes (HIV) Kidney Stones: No Musculoskeletal: No Neurologic: Yes Psychiatric: No Reproductive: No Respiratory: No Migraines: Yes Radiation Therapy: No Renal Failure: No Seizures: Yes Sickle Cell Disease: No Sleep Apnea: No Thyroid Disease: No Ulcer: No ?: Not Menopausal: Yes : 2 Para: 0 Miscarriage: 1 : 1 Ectopic : Yes Past Surgical History Abdominal Surgery: Yes (EXP. LAP.) AICD: No Arteriovenous Shunt: No Cardiac Surgery: No Section: Yes Ear Surgery: No Endocrine Surgery: No Eye Surgery: No Genitourinary Surgery: No Gynecologic Surgery: Yes Insulin Pump: No Joint Replacement: No Oral Surgery: No Pacemaker: No Thoracic Surgery: No Other Surgery: Yes (, ectopic ) Social History Alcohol Use: Yes (OCC) Tobacco Use: No (quit a month ago ) Substance Use: Yes (COCAINE ) Allergies-Medications (Allergen,Severity, Reaction): Coded Allergies: No Known Allergies (Verified , 11/01/16) Reported Meds & Prescriptions Reported Meds & Active Scripts Active Furosemide 20 Mg Tab 20 Mg PO BID@,18 Aldactone (Spironolactone) 25 Mg Tab 25 Mg PO BIDPC Calcium Carbonate 1,500 Mg Tab 1,500 Mg PO BID 7 Days 1,500 mg calcium carbonate (600 mg elemental calcium) Sulfamethoxazole-Trimethoprim Liq 200-40 Mg/5 Ml Susp 20 Ml PO DAILY Lactulose Liq (Lactulose) 10 Gm/15 Ml Soln 30 Ml PO DAILY Pantoprazole (Pantoprazole Sodium) 40 Mg Tab 40 Mg PO DAILY Bactrim DS (Sulfamethoxazole-Trimethoprim) 800-160 Mg Tab 1 Tab PO MOWEFR@09 Reported Multi Adult Gummies (Multiple Vitamins W/ Minerals) 1 Chw Chw 1 Chew CHEW DAILY Lomotil (Diphenoxylate-Atropine) 2.5-0.025 Mg Tab 2 Tab PO QID PRN Review of Systems Except as stated in HPI: all other systems reviewed are Neg Physical Exam Narrative GENERAL: Chronically ill-appearing female who is in no acute distress. SKIN: Warm and dry. HEAD: Atraumatic. Normocephalic. EYES: Pupils equal and round. No scleral icterus. No injection or drainage. ENT: No nasal bleeding or discharge. Mucous membranes pink and moist. NECK: Trachea midline. No JVD. CARDIOVASCULAR: Regular rate and rhythm. No murmur appreciated. RESPIRATORY: No accessory muscle use. Clear to auscultation. Breath sounds equal bilaterally. GASTROINTESTINAL: Abdomen soft, distended, generalized tenderness to palpation. MUSCULOSKELETAL: No obvious deformities. NEUROLOGICAL: Awake and alert. No obvious cranial nerve deficits. Motor grossly within normal limits. Normal speech. PSYCHIATRIC: Appropriate mood and affect; insight and judgment normal. Data Data Last Documented VS Vital Signs Date Time Temp Pulse Resp B/P Pulse Ox O2 Delivery O2 Flow Rate FiO2 11/01/16 12:00 84 16 102/57 97 Room Air 11/01/16 02:31 98.6 Orders Us Guided Abd Paracentesis (11/01/16 ) Furosemide Inj (Lasix Inj) (11/01/16 03:45) Morphine Inj (Morphine Inj) (11/01/16 03:45) Ondansetron Inj (Zofran Inj) (11/01/16 03:45) MDM Medical Decision Making Medical Screen Exam Complete: Yes Emergency Medical Condition: Yes Medical Record Reviewed: Yes Differential Diagnosis Ascites, cirrhosis, spontaneous bacterial peritonitis Narrative Course This is a 51-year-old female with advanced liver disease with ascites who presents with worsening abdominal distention. Most recently underwent therapeutic paracentesis on October 22. On examination she does have a markedly distended abdomen. She was seen here yesterday and lab work was performed. As it is currently four in the morning, we will go ahead and order therapeutic paracentesis and she will be likely discharged after this procedure. She will be given a dose of Lasix, morphine and Zofran. Diagnosis Primary Impression: Ascites Qualified Code: R18.8 - Other ascites Additional Instructions: Begin taking the diuretic medication was prescribed yesterday. Follow closely with primary care physician. Return for any emergent medical conditions. Med/Other Pt SpecificInfo: No Change to Meds Disposition: 01 DISCHARGE HOME Condition: Stable Agustin Adamson Nov 01, 2016 03:58
[2016-11-01 11:45] VITALS: BP 91/52; PULSE 84; RESP 16; O2SAT 97
[2016-11-01 12:00] VITALS: BP 102/57; PULSE 84; RESP 16; O2SAT 97
--- NOTE | 2016-11-01 13:51 | RADRPT ---
EXAM DATE/TIME: 11/01/2016 10:16 [facility] COMPARISON: US GUIDED ABD PARACENTESIS, October 22, 2016, 8:56. INDICATIONS : Ascites. MEDICAL HISTORY : Seizures. Cirrhosis. Cerebrovascular accident. Liver disease. HIV. Ectopic . Substanse abuse . SURGICAL HISTORY : section. Exploratory laparotomy. ENCOUNTER: [facility]ela ACUITY: 2 weeks PAIN SCORE: 5/10 LOCATION: Right lower quadrant FLUID: Total volume of 2900 cc of clear, yellow fluid was removed. Fluid was discarded. Paracentesis was therapeutic only. Post procedure scanning reveals no hematoma or other complication. TECHNIQUE: 1. Ultrasound guidance for abdominal paracentesis. 2. Paracentesis. The risks, benefits, and alternatives to ultrasound guided paracentesis were explained to the patient in detail including the risk of bleeding and infection. Written and verbal informed consent was obt ained. With the patient on the ultrasound table, ultrasound imaging was used to select the most appropriate approach for paracentesis. Overlying skin was prepped and draped in the usual sterile fashion and wi th a local anesthetic, a dermatotomy was made with an 11 blade scalpel. A 6 [employer] [id number] ca theter was introduced into the peritoneal cavity and fluid was collected. The patient tolerated the procedure well and left the ultrasound suite in stable condition. CONCLUSION: Uncomplicated ultrasound guided paracentesis. Nelson Ordoñez MD on November 01, 2016 at 13:49 Board Certified Radiologist. This report was verified electronically.
== END 2016-11-01 13:39 | disposition home or self-care (01) ==
LOC: NEPC 02:14
DX: R18.8 Other ascites (principal); K74.60 Unspecified cirrhosis of liver; B20 Human immunodeficiency virus [HIV] disease; Z86.73 Personal history of transient ischemic attack (TIA), and cerebral infarction without residual deficits; Z87.891 Personal history of nicotine dependence
CPT/HCPCS: 49083; 96374; 96375; 99283; C1729; J1940; J2270; J2405

== ENCOUNTER 2016-11-12 07:12 | Inpatient (IN) | payer MEDICARE, MEDICAID ==
[2016-11-12] VITALS (7 sets, daily range): BP systolic 112–135; BP diastolic 64–83; PULSE 74–96; RESP 16–17; TEMP 96–97.8; O2SAT 94–100
[~2016-11-12] VITALS: Ht 162.6 cm; Wt 68.4 kg
--- NOTE | 2016-11-12 07:34 | PD ---
HPI Chief Complaint: Abdominal Pain Time Seen by Provider: 07:25 Travel History International Travel<30 days: No Contact w/Intl Traveler<30days: No Traveled to known affect area: No History of Present Illness HPI 51-year-old female with history of HIV, GI bleed, stroke, ascites, currently noncompliant with HIV therapy, presents to the ER today because she states that her abdomen has gotten bigger over the last day and she feels like it is tense, states that pain is 10 out of 10, has been in to the hospital for drainage several times, about once a week she states. She had tried to follow-up at the place that she was assigned to but was not able to. She states she does not know how to mix her HIV medications and has not been taking it. She denies any vomiting, fevers, or other symptoms. She states that her last bowel movement was today and it was brown, denies black stools or blood in the stools. Modifying Factors: None Associated Signs & Symptoms: Increased abdominal bloating, pain Risk Factors: Ascites PFSH Past Medical History Arthritis: No Asthma: No Autoimmune Disease: Yes Blood Disorders: No Anxiety: No Depression: No Heart Rhythm Problems: No Cancer: No Cardiovascular Problems: No High Cholesterol: No Chemotherapy: No Chest Pain: No Congestive Heart Failure: No COPD: No Cerebrovascular Accident: Yes (stroke) Diabetes: No Diminished Hearing: No Endocrine: No Gastrointestinal Disorders: Yes (RECENT ABD PAIN AND NAUSEA/ diarrhea) GERD: No Genitourinary: Yes Headaches: Yes Hiatal Hernia: No Immune Disorder: Yes (HIV) Kidney Stones: No Musculoskeletal: No Neurologic: Yes Psychiatric: No Reproductive: No Respiratory: No Migraines: Yes Radiation Therapy: No Renal Failure: No Seizures: Yes Sickle Cell Disease: No Sleep Apnea: No Thyroid Disease: No Ulcer: No Menopausal: Yes : 2 Para: 0 Miscarriage: 1 : 1 Ectopic : Yes Past Surgical History Abdominal Surgery: Yes (EXP. LAP.) AICD: No Arteriovenous Shunt: No Cardiac Surgery: No Section: Yes Ear Surgery: No Endocrine Surgery: No Eye Surgery: No Genitourinary Surgery: No Gynecologic Surgery: Yes Insulin Pump: No Joint Replacement: No Oral Surgery: No Pacemaker: No Thoracic Surgery: No Other Surgery: Yes (, ectopic ) Social History Alcohol Use: Yes (OCC) Tobacco Use: No (quit a month ago ) Substance Use: Yes (COCAINE ) Allergies-Medications (Allergen,Severity, Reaction): Coded Allergies: No Known Allergies (Verified , 11/12/16) Reported Meds & Prescriptions Reported Meds & Active Scripts Active No Active Prescriptions or Reported Medications Review of Systems Except as stated in HPI: all other systems reviewed are Neg Physical Exam Narrative GENERAL: Well-developed cachectic middle age -[place] female who appears older than stated age. Her abdomen is notably swollen. SKIN: Focused skin assessment warm/dry. HEAD: Atraumatic. Normocephalic. EYES: Pupils equal and round. No scleral icterus. No injection or drainage. ENT: No nasal bleeding or discharge. Mucous membranes pink and moist. NECK: Trachea midline. No JVD. CARDIOVASCULAR: Regular rate and rhythm. No murmur appreciated. RESPIRATORY: No accessory muscle use. Clear to auscultation. Breath sounds equal bilaterally. GASTROINTESTINAL: Abdomen nontender, tensely distended. No guarding or rebound. MUSCULOSKELETAL: No obvious deformities. No clubbing. No cyanosis. No edema. NEUROLOGICAL: Awake and alert. No obvious cranial nerve deficits. Motor grossly within normal limits. Normal speech. PSYCHIATRIC: Appropriate mood and affect; insight and judgment normal. Data Data Last Documented VS Vital Signs Date Time Temp Pulse Resp B/P Pulse Ox O2 Delivery O2 Flow Rate FiO2 11/12/16 09:00 20 11/12/16 08:16 85 135/81 94 Room Air 11/12/16 07:14 97.8 Orders Complete Blood Count With Diff (11/12/16 07:29) Comprehensive Metabolic Panel (11/12/16 07:29) Prothrombin Time / Inr (Pt) (11/12/16 07:29) Act Partial Throm Time (Ptt) (11/12/16 07:29) Abdomen, Flat & Upright (11/12/16 07:29) Hydromorphone Pf Inj (Dilaudid Pf Inj) (11/12/16 08:00) Ondansetron Inj (Zofran Inj) (11/12/16 08:00) Potassium Chlor 20 Meq Premix (Kcl 20 Me (11/12/16 09:30) Calcium Gluconate Inj (Calcium Gluconate (11/12/16 09:30) Admit Order (Ed Use Only) (11/12/16 10:03) Labs Laboratory Tests Test 11/12/16 07:50 White Blood Count 6.3 TH/MM3 Red Blood Count 2.58 MIL/MM3 Hemoglobin 8.1 GM/DL Hematocrit 24.1 % Mean Corpuscular Volume 93.2 FL Mean Corpuscular Hemoglobin 31.3 PG Mean Corpuscular Hemoglobin 33.6 % Concent Red Cell Distribution Width 17.5 % Platelet Count 125 TH/MM3 Mean Platelet Volume 9.0 FL Neutrophils (%) (Auto) 77.3 % Lymphocytes (%) (Auto) 12.8 % Monocytes (%) (Auto) 8.6 % Eosinophils (%) (Auto) 0.6 % Basophils (%) (Auto) 0.7 % Neutrophils # (Auto) 4.9 TH/MM3 Lymphocytes # (Auto) 0.8 TH/MM3 Monocytes # (Auto) 0.5 TH/MM3 Eosinophils # (Auto) 0.0 TH/MM3 Basophils # (Auto) 0.0 TH/MM3 CBC Comment DIFF FINAL Differential Comment Prothrombin Time 15.9 SEC Prothromb Time International 1.4 RATIO Ratio Activated Partial 44.6 SEC Thromboplast Time Sodium Level 138 MEQ/L Potassium Level 2.9 MEQ/L Chloride Level 104 MEQ/L Carbon Dioxide Level 29.5 MEQ/L Anion Gap 5 MEQ/L Blood Urea Nitrogen 5 MG/DL Creatinine 0.71 MG/DL Estimat Glomerular Filtration 105 ML/MIN Rate Random Glucose 94 MG/DL Calcium Level 6.8 MG/DL Protein Corrected Calcium 6.7 MG/DL Total Bilirubin 1.1 MG/DL Aspartate Amino Transf 44 U/L (AST/SGOT) Alanine Aminotransferase 15 U/L (ALT/SGPT) Alkaline Phosphatase 146 U/L Total Protein 7.5 GM/DL Albumin 1.0 GM/DL [facility] Medical Decision Making Medical Screen Exam Complete: Yes Emergency Medical Condition: Yes Medical Record Reviewed: Yes Interpretation(s) Laboratory Tests Test 11/12/16 07:50 Red Blood Count 2.58 MIL/MM3 (4.00-5.30) Hemoglobin 8.1 GM/DL (11.6-15.3) Hematocrit 24.1 % (35.0-46.0) Red Cell Distribution Width 17.5 % (11.6-17.2) Platelet Count 125 TH/MM3 (150-450) Neutrophils (%) (Auto) 77.3 % (16.0-70.0) Monocytes (%) (Auto) 8.6 % (0.0-8.0) Lymphocytes # (Auto) 0.8 TH/MM3 (1.0-4.8) Prothrombin Time 15.9 SEC (9.8-11.6) Activated Partial 44.6 SEC Thromboplast Time (24.3-30.1) Potassium Level 2.9 MEQ/L (3.5-5.1) Blood Urea Nitrogen 5 MG/DL (7-18) Calcium Level 6.8 MG/DL (8.5-10.1) Protein Corrected Calcium 6.7 MG/DL (8.5-10.1) Total Bilirubin 1.1 MG/DL (0.2-1.0) Aspartate Amino Transf 44 U/L (15-37) (AST/SGOT) Alkaline Phosphatase 146 U/L (45-117) Albumin 1.0 GM/DL (3.4-5.0) Differential Diagnosis Increased abdominal swelling, painworsening ascites versus obstruction Narrative Course Lab work shows significant hypocalcemia and hypokalemia. She was given IV replacement. She will need of ascites drainage. At this point, my plan would be to admit her for further treatment. Patient also appears to have poor compliance of medication, states she has not able to comply and not able to follow-up with infectious disease. Case was discussed with Dr. Terry for admission. Diagnosis Primary Impression: Hypocalcemia Additional Impressions: Hypokalemia Ascites Admitting Information Admitting Physician Requests: Admit Scripts No Active Prescriptions or Reported Meds Aliza Lopez MD Nov 12, 2016 07:33
[2016-11-12] MEDS ORDERED: ONDANSETRON HCL 4 MG/2 ML VIAL IV PUSH ONE (08:00)
[2016-11-12] MEDS ORDERED: HYDROmorphone HCL PF 1 MG/ML VIAL IV PUSH ONE (08:00)
--- NOTE | 2016-11-12 08:11 | RADRPT ---
EXAM DATE/TIME: 11/12/2016 07:53 [facility] COMPARISON: No previous studies available for comparison. INDICATIONS : Abdominal pain and swelling. MEDICAL HISTORY : None. SURGICAL HISTORY : None. ENCOUNTER: Initial ACUITY: 3 months PAIN SCORE: 7/10 LOCATION: Bilateral abdomen. FINDINGS: Supine and upright views of the abdomen were performed. The abdominal bowel gas pattern is abnormal with air throughout the gastrointestinal tract and air-fluid levels in the small bowel. There is no e vidence of pathologic small bowel distention.. No abnormal masses, calcifications, or organomegaly i s seen. The visualized lower lungs are clear. No evidence of free intraperitoneal gas. The osseous structures are unremarkable. CONCLUSION: Small bowel ileus without evidence of pathologic distention. No evidence of free air or significant mass effect.. Yaya Guzman MD on November 12, 2016 at 8:08 Board Certified Radiologist. This report was verified electronically.
[2016-11-12 08:29] LABS: AUTOMATED NEUTROPHIL # 4.9 TH/MM3 (1.8-7.7); BASOPHIL % 0.7 % (0.0-2.0); EOSINOPHIL % 0.6 % (0.0-4.0); HEMATOCRIT 24.1 % (35.0-46.0); HEMO FLAGS DIFF FINAL; LYMPH % 12.8 % (9.0-44.0); LYMPHOCYTE # 0.8 TH/MM3 (1.0-4.8); MEAN CELL VOLUME 93.2 FL (80.0-100.0); MEAN CORPUSCULAR HEMOGLOBIN 31.3 PG (27.0-34.0); MEAN CORPUSCULAR HGB CONC 33.6 % (32.0-36.0); MONO % 8.6 % (0.0-8.0); NEUT % 77.3 % (16.0-70.0); PLATELET COUNT 125 TH/MM3 (150-450); RED BLOOD COUNT 2.58 MIL/MM3 (4.00-5.30); RED CELL DISTRIBUTION WIDTH 17.5 % (11.6-17.2); WHITE BLOOD COUNT 6.3 TH/MM3 (4.0-11.0)
[2016-11-12 08:34] LABS: APTT (PATIENT) 44.6 SEC (24.3-30.1); INTERNATIONAL NORMALIZED RATIO 1.4 RATIO; PROTHROMBIN TIME - PATIENT 15.9 SEC (9.8-11.6)
[2016-11-12 09:15] LABS: BICARBONATE 29.5 MEQ/L (21.0-32.0); TOTAL BILIRUBIN ADULT 1.1 MG/DL (0.2-1.0)
[2016-11-12 09:17] LABS: CALCIUM-PROTEIN CORRECTED 6.7 MG/DL (8.5-10.1)
[2016-11-12 09:18] LABS: POTASSIUM 2.9 MEQ/L (3.5-5.1)
[2016-11-12] MEDS ORDERED: POTASSIUM CHLOR 20 MEQ PREMIX 100 ML IV ONE (09:30)
[2016-11-12] MEDS ORDERED: CALCIUM GLUCONATE INJ 2 GM in SODIUM CHLORIDE 0.9% INJ 100 ML IV ONE (09:30)
[2016-11-12] MEDS ORDERED: MAGNESIUM HYDROXIDE SUSP 30 ML CUP PO PRN (11:45)
[2016-11-12] MEDS ORDERED: SODIUM CHLORIDE 0.9% FLUSH 10 ML FLUSH IV FLUSH PRN (11:45)
[2016-11-12] MEDS ORDERED: ONDANSETRON HCL 4 MG/2 ML VIAL IVP PRN (11:45)
[2016-11-12] MEDS: ENOXAPARIN SODIUM 40 MG/0.4 ML SYRINGE SQ SCH (13:36)
[2016-11-12] MEDS: SODIUM CHLOR 0.9% 1000 ML INJ 1,000 ML IV SCH ×2 (13:36→23:43)
[2016-11-12] MEDS: DOCUSATE SODIUM 100 MG CAP PO SCH (13:36)
--- NOTE | 2016-11-12 14:11 | HHI.HP ---
HPI Service [facility] Hospitalists Primary Care Physician Jeremiah Garcia MD Admission Diagnosis ascites/hypocalcemia/hypokalemia Diagnoses: Chief Complaint: "I have belly pain." Travel History International Travel<30 Days: No Contact w/Intl Traveler <30 Da: No Traveled to Known Affected Are: No History of Present Illness Pt is a 51 yo AA female, cachetic in appearance, with history inclusive of HIV, GI bleeds, stroke, ascites, cirrhosis, gastritis, and electrolyte disturbance ( noted as hypokalemia and hypocalcemia) as well as decreased albumin. Per ED physician, pt has been to [facility] for paracentesis; approximately every two to three weeks for several procedures. Pt returns to [facility] ED today for abdominal pain that pt noted has been worsening over the course of the past "few days." She is also noting her abdominal distention has been present for approximately two months. [place] this time she has also experienced diarrhea. ED report indicated pt reported confusion about how to take her HIV medications ; this was not reported when was in the ED on 10/21/16 as she indicated she was compliant with those medications on that visit. Pt has also voiced having muscle pain with ambulation and movement of her arms as well as pain with swallowing. She denied fever, N/V/C, and shortness of breath. She endorsed having a dry cough as well as difficulty swallowing solid food items. Review of records indicated her CD4 count was less than 20. Review of panels indicated decreased levels of hemoglobin, hematocrit, calcium, potassium, and albumin. Ed team ordered replacement of potassium calcium, as well as administered hydromorphone and zofran. Pt, per ED record indsicated her pain had improved. No other issues noted ore reported. Review of Systems Except as stated in HPI: all other systems reviewed are Neg Past Family Social History Past Medical History HIV, GI bleeds, stroke, ascites, cirrhosis, gastritis, and electrolyte disturbance (noted as hypokalemia and hypocalcemia) as well as decreased albumin. Past Surgical History Surgical history is reported for exploratory laparotomy, , and Ectopic . Reported Medications Reported Meds & Active Scripts Active No Active Prescriptions or Reported Medications Allergies: Coded Allergies: No Known Allergies (Verified , 11/12/16) Active Ordered Medications Current Medications Medications (Trade) Dose Ordered Sig/Sue Route Start Time Stop Time Status Last Admin (NS 1000 ml Inj) 1,000 ml @ 100 mls/hr Q10H IV 11/12/16 12:00 11/12/16 13:36 (NS Flush) 2 ml UNSCH PRN IV FLUSH 11/12/16 11:45 (NS Flush) 2 ml BID IV FLUSH 11/12/16 21:00 (Tylenol) 650 mg Q4H PRN PO 11/12/16 11:45 (Zofran Inj) 4 mg Q6H PRN IVP 11/12/16 11:45 (Colace) 100 mg Q12H PO 11/12/16 12:00 11/12/16 13:36 (Milk Of Magnesia Liq) 30 ml Q12H PRN PO 11/12/16 11:45 (Lovenox Inj) 40 mg Q24H SQ 11/12/16 12:00 11/12/16 13:36 Family History Pt denied any family history. Social History Pt reported having stopped smoking cigarettes recently, yet could not identify when she had stopped. It was noted in the medical record pt had a history of cocaine use, which pt said she had "not used in a long time. We are talking years." Alcohol use was reported as occasional. Physical Exam Vital Signs Vital Signs Date Time Temp Pulse Resp B/P Pulse Ox O2 Delivery O2 Flow Rate FiO2 11/12/16 12:00 84 16 121/81 99 Room Air 11/12/16 11:55 94 21 11/12/16 09:00 20 11/12/16 08:16 85 16 135/81 94 Room Air 11/12/16 07:14 97.8 74 16 118/64 95 Physical Exam GENERAL: This is a cachectic appeating, well-developed patient, in no apparent distress. SKIN: No rashes, ecchymoses or lesions. Cool and dry. Nursing indicated the presence of generalized scabies, but this was not readily apparent. HEAD: Atraumatic. Normocephalic. No temporal or scalp tenderness. EYES: Pupils equal round and reactive. Extraocular motions intact. No scleral icterus. No injection or drainage. ENT: Nose without bleeding, purulent drainage or septal hematoma. Throat without erythema, tonsillar hypertrophy. Tara noted on tongue. Uvula midline. Airway patent. NECK: Trachea midline. No JVD or lymphadenopathy. Supple, nontender, no meningeal signs. CARDIOVASCULAR: Regular rate and rhythm without murmurs, gallops, or rubs. RESPIRATORY: Clear to auscultation. Breath sounds equal bilaterally. No wheezes , rales, or rhonchi. GASTROINTESTINAL: Abdomen taut, tender, nondistended. No hepato-splenomegaly, or palpable masses. No guarding. Dullness heard upon palpation. MUSCULOSKELETAL: Extremities without clubbing, cyanosis, or edema. No joint tenderness, effusion, or edema noted. No calf tenderness. Negative Homans sign bilaterally. Muscle tone and mass is noted to be decreased. NEUROLOGICAL: Awake, alert and oriented x2 (person and event for being at ). Cranial nerves II through XII intact. Motor and sensory grossly within normal limits. Five out of 5 muscle strength in all muscle groups. Normal speech. Laboratory Laboratory Tests Test 11/12/16 07:50 White Blood Count 6.3 Red Blood Count 2.58 Hemoglobin 8.1 Hematocrit 24.1 Mean Corpuscular Volume 93.2 Mean Corpuscular Hemoglobin 31.3 Mean Corpuscular Hemoglobin 33.6 Concent Red Cell Distribution Width 17.5 Platelet Count 125 Mean Platelet Volume 9.0 Neutrophils (%) (Auto) 77.3 Lymphocytes (%) (Auto) 12.8 Monocytes (%) (Auto) 8.6 Eosinophils (%) (Auto) 0.6 Basophils (%) (Auto) 0.7 Neutrophils # (Auto) 4.9 Lymphocytes # (Auto) 0.8 Monocytes # (Auto) 0.5 Eosinophils # (Auto) 0.0 Basophils # (Auto) 0.0 CBC Comment DIFF FINAL Differential Comment Prothrombin Time 15.9 Prothromb Time International 1.4 Ratio Activated Partial 44.6 Thromboplast Time Sodium Level 138 Potassium Level 2.9 Chloride Level 104 Carbon Dioxide Level 29.5 Anion Gap 5 Blood Urea Nitrogen 5 Creatinine 0.71 Estimat Glomerular Filtration 105 Rate Random Glucose 94 Calcium Level 6.8 Protein Corrected Calcium 6.7 Total Bilirubin 1.1 Aspartate Amino Transf 44 (AST/SGOT) Alanine Aminotransferase 15 (ALT/SGPT) Alkaline Phosphatase 146 Total Protein 7.5 Albumin 1.0 Result Diagram: 11/12/16 0750 11/12/16 0750 Imaging Last Impressions Abdomen X-Ray 11/12/16 0750 Signed Impressions: Service Date/Time: Saturday, November 12, 2016 07:53 - CONCLUSION: Small bowel ileus without evidence of pathologic distention. No evidence of free air or significant mass effect.. Yaya Guzman MD Assessment and Plan Assessment and Plan Severe symptomatic Hypocalcemia Severe symptomatic Hypokalemia Received Ca gluconate in the ED and KCL IV Will give additional 40 mEq KCl. Will repeat BMP tonight and replace if still low Replenish electrolytes. HIV positive. 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 On fluconazole and magic wash as above Normocytic anemia, H/H appears at baseline. - Follow CBC Hypoalbuminemia -follow trend with labs DVT prophylaxis: SCD's at this time; will avoid blood thinning agents. Written by Sunday Carias, acting as scribe for Dr. Terry on 11/12/16 at 14:10. This note was transcribed by ronna MITCHELL. I, Dr. Kassidy Terry personally performed the history, physical exam, and medical decision making; and confirmed the accuracy of the information in the transcribed note. Authenticated by Dr. Kassidy Terry on 11/12/16 at 14:10. Discussed Condition With Patient, ED physician, ED nurse, ID physician. Physician Certification 2 Midnight Certification Type: Admission for Inpatient Services Order for Inpatient Services The services are ordered in accordance with Medicare regulations or non- Medicare payer requirements, as applicable. In the case of services not specified as inpatient-only, they are appropriately provided as inpatient services in accordance with the 2-midnight benchmark. Estimated LOS (days): 3 3 days is the estimated time the patient will need to remain in the hospital, assuming treatment plan goals are met and no additional complications. Post-Hospital Plan: Not yet determined Sunday Carias Jr. Nov 12, 2016 14:11 Kassidy Terry MD Nov 12, 2016 14:46
[2016-11-12] MEDS ORDERED: PERMETHRIN 5% CREAM 60 GM TOPICAL ONE (14:45)
[2016-11-12] MEDS: POTASSIUM CHLOR 20 MEQ PREMIX 100 ML IV SCH ×2 (16:16→16:17)
--- NOTE | 2016-11-12 19:37 | EKG ---
Date Performed: 11/12/2016 Time Performed: 07:32:07 PTAGE: 51 years EKG: Sinus rhythm NONSPECIFIC T-WAVE ABNORMALITY Compared to prior tracing no significant change BORDERLINE ECG INTERP RETATION BASED ON A DEFAULT AGE OF 40 YEARS PREVIOUS TRACING : 08/11/2016 06.43 DOCTOR: Julian Johnson Interpretating Date/Time 11/12/2016 19:34:01
[2016-11-12] MEDS: NYSTAT/DIPHENHY/LIDO MOUTHWASH (Adult) 120ML SWISH-SWAL SCH ×2 (21:00→23:41)
[2016-11-12 21:07] LABS: BICARBONATE 25.7 MEQ/L (21.0-32.0); POTASSIUM 3.4 MEQ/L (3.5-5.1)
[2016-11-12 21:41] LABS: CALCIUM-PROTEIN CORRECTED 7.2 MG/DL (8.5-10.1)
[2016-11-12] MEDS ORDERED: CALCIUM GLUCONATE INJ 1 GM in SODIUM CHLORIDE 0.9% INJ 90 ML IV ONE (23:15)
[2016-11-12] MEDS ORDERED: POTASSIUM CHLORIDE 25 MEQ EFFERVESCENT TAB NG ONE (23:15)
[2016-11-12] MEDS: FLUCONAZOLE 100 MG PREMIX BAG 50 ML IV SCH (23:41)
[2016-11-12] MEDS: SODIUM CHLORIDE 0.9% FLUSH 10 ML FLUSH IV FLUSH SCH (23:41)
[2016-11-13] VITALS (9 sets, daily range): BP systolic 99–120; BP diastolic 60–89; PULSE 88–113; RESP 16–18; TEMP 97.7–100.8; O2SAT 96–100
[2016-11-13] MEDS ORDERED: HYDROmorphone HCL PF 1 MG/ML VIAL IV PUSH ONE (01:00)
[2016-11-13 07:35] LABS: AUTOMATED NEUTROPHIL # 4.8 TH/MM3 (1.8-7.7); BASOPHIL # 0.1 TH/MM3 (0-0.2); EOSINOPHIL % 0.8 % (0.0-4.0); HEMATOCRIT 24.4 % (35.0-46.0); HEMO FLAGS DIFF FINAL; LYMPH % 9.6 % (9.0-44.0); LYMPHOCYTE # 0.6 TH/MM3 (1.0-4.8); MEAN CELL VOLUME 94.5 FL (80.0-100.0); MEAN CORPUSCULAR HEMOGLOBIN 31.4 PG (27.0-34.0); MEAN CORPUSCULAR HGB CONC 33.3 % (32.0-36.0); MONO % 9.5 % (0.0-8.0); NEUT % 79.1 % (16.0-70.0); PLATELET COUNT 134 TH/MM3 (150-450); RED BLOOD COUNT 2.58 MIL/MM3 (4.00-5.30); WHITE BLOOD COUNT 6.1 TH/MM3 (4.0-11.0)
[2016-11-13 08:15] LABS: BICARBONATE 27.5 MEQ/L (21.0-32.0); POTASSIUM 3.6 MEQ/L (3.5-5.1)
[2016-11-13 08:37] LABS: CALCIUM-PROTEIN CORRECTED 7.4 MG/DL (8.5-10.1)
[2016-11-13] MEDS: NYSTAT/DIPHENHY/LIDO MOUTHWASH (Adult) 120ML SWISH-SWAL SCH ×4 (08:43→21:00)
--- NOTE | 2016-11-13 11:25 | HHI.PR ---
Subjective Remarks She is more awake and alert today. Says she is able to eat more today. No n/v/d/ c. Belly is distended and painful to palpation. No fever or chills overnight. Received permethrin Objective Vitals Vital Signs Date Time Temp Pulse Resp B/P Pulse Ox O2 Delivery O2 Flow Rate FiO2 11/13/16 08:00 98.4 100 16 115/79 100 11/13/16 04:00 98.4 99 16 99/63 98 11/13/16 02:42 16 11/13/16 02:27 98 11/13/16 00:00 97.7 96 16 118/68 97 11/12/16 22:51 86 11/12/16 20:00 96.7 93 17 126/83 98 11/12/16 16:00 96.0 96 16 112/78 100 11/12/16 12:00 84 16 121/81 99 Room Air 11/12/16 11:55 94 21 I/O 11/12/16 11/12/16 11/12/16 11/13/16 11/13/16 11/13/16 07:00 15:00 23:00 07:00 15:00 23:00 Intake Total 240 ml 240 ml Balance 240 ml 240 ml Intake Oral 240 ml 240 ml # Voids 1 1 1 Result Diagram: 11/13/1671211/13/16712 Imaging Last Impressions Abdomen X-Ray 11/12/16728 Signed Impressions: Service Date/Time: Saturday, November 12, 2016 07:53 - CONCLUSION: Small bowel ileus without evidence of pathologic distention. No evidence of free air or significant mass effect.. Yaya Guzman MD Objective Remarks GENERAL: This is a cachectic appearing, very thin patient, in no apparent distress. SKIN: No rashes, ecchymoses or lesions. Cool and dry. Nursing indicated the presence of generalized scabies, but this was not readily apparent. HEAD: Atraumatic. Normocephalic. No temporal or scalp tenderness. EYES: Pupils equal round and reactive. Extraocular motions intact. No scleral icterus. No injection or drainage. ENT: Nose without bleeding, purulent drainage or septal hematoma. Throat without erythema, tonsillar hypertrophy. Eva noted on tongue. Uvula midline. Airway patent. NECK: Trachea midline. No JVD or lymphadenopathy. Supple, nontender, no meningeal signs. CARDIOVASCULAR: Regular rate and rhythm without murmurs, gallops, or rubs. RESPIRATORY: Clear to auscultation. Breath sounds equal bilaterally. No wheezes , rales, or rhonchi. GASTROINTESTINAL: Abdomen taut, tender, nondistended. No hepato-splenomegaly, or palpable masses. No guarding. Dullness heard upon palpation. MUSCULOSKELETAL: Extremities without clubbing, cyanosis, or edema. No joint tenderness, effusion, or edema noted. No calf tenderness. Negative Homans sign bilaterally. Muscle tone and mass is noted to be decreased. NEUROLOGICAL: Awake, alert and oriented x2 (person and event for being at ). Cranial nerves II through XII intact. Motor and sensory grossly within normal limits. Five out of 5 muscle strength in all muscle groups. Normal speech. A/P Assessment and Plan Severe symptomatic Hypocalcemia Severe symptomatic Hypokalemia Received Ca gluconate in the ED and KCL IV Will give additional 40 mEq KCl. Give another Ca gluconate IV 11/13 Repeat BMP Replenish electrolytes. HIV positive. 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 PML (low CD4 count per records 08/10), patient with dysphagia, altered mental status , concern for PML/HIV dementia , pt is noncompliant with meds -Will order new CD4 count -ID consult, appreciate recommendations Thrush -Magic mouthwash, start fluconazole IV Dysphagia poss 2/2 eva esophagitis -GI consult to be placed. On fluconazole and magic wash as above Normocytic anemia, H/H appears at baseline. - Follow CBC Hypoalbuminemia -follow trend with labs Discussed with the patient and the nurse Kassidy Terry MD Nov 13, 2016 11:25
[2016-11-13] MEDS ORDERED: CALCIUM GLUCONATE INJ 1 GM in SODIUM CHLORIDE 0.9% INJ 100 ML IV ONE (12:30)
[2016-11-13] MEDS: DOCUSATE SODIUM 100 MG CAP PO SCH ×3 (12:46→22:38)
[2016-11-13] MEDS: ENOXAPARIN SODIUM 40 MG/0.4 ML SYRINGE SQ SCH (12:46)
[2016-11-13] MEDS: SODIUM CHLORIDE 0.9% FLUSH 10 ML FLUSH IV FLUSH SCH ×2 (12:47→21:00)
[2016-11-13] MEDS: CALCIUM CARBONATE 500 MG CHEWABLE TAB CHEW SCH ×2 (12:47→21:11)
--- NOTE | 2016-11-13 12:49 | PD.CONS ---
History of Present Illness Service Infectious disease Consult Requested By Dr Mery Terry Reason for Consult Evaluate patient with HIV, low CD4 count, swallowing difficulty, and mental status change Primary Care Physician Jeremiah Garcia MD Diagnoses: History of Present Illness Patient seen and examined. Records reviewed. Patient is a very poor historian. She is a 51-year-old female with known HIV, has significant cachexia, presented to the hospital for further evaluation of abdominal pain and abdominal distention. Patient has a history of liver cirrhosis, and has been getting frequent outpatient paracenteses. There were mostly done for therapeutic purposes. The last tap was done November 01. Over the last several days she's noted increasing abdominal distention associated with pain. She presented to the hospital for further evaluation and treatment. She denies any fever or chills or sweats. Denies any cough or shortness of breath. She is voiding without any problem. Patient has other multiple complaints. She is complaining of pain in different parts of her body including back pain, abdominal pain, joint pain. She denies any headache. Denies any respiratory complain. She's had some occasional diarrhea. Patient states that that time she would forget to take her HIV medication but most of the time she is compliant. She sees Dr Ahumada, and states every month, although the last time she saw his HIV doctor was about 2 months ago. Patient also notes swallowing solid foods. She has no trouble swallowing liquids. She denies any odynophagia. Patient also stated that she's had a rash that's very itchy, and was treated for scabies last night. Infectious disease consultation has been requested to evaluate the patient. There is some concern about her swallowing problem, as well as her mental status , and concern for PML. Review of Systems Constitutional: COMPLAINS OF: Weight loss, DENIES: Fever, Chills Eyes: DENIES: Eye pain Ears, nose, mouth, throat: DENIES: Nasal discharge, Oral lesions, Throat pain, Ear Pain, Sinus Pain Respiratory: DENIES: Cough, Shortness of breath Cardiovascular: DENIES: Chest pain, Palpitations, Syncope Gastrointestinal: COMPLAINS OF: Abdominal pain, Diarrhea, Difficulty Swallowing , Anorexia, DENIES: Nausea, Vomiting Genitourinary: DENIES: Urinary frequency, Dysuria Musculoskeletal: DENIES: Joint pain, Joint Swelling Integumentary: COMPLAINS OF: Pruritus, Rash Neurologic: DENIES: Headache, Localized weakness Psychiatric: DENIES: Hallucinations Past Family Social History Allergies: Coded Allergies: No Known Allergies (Verified , 11/12/16) Past Medical History HIV GI bleeds CVA Ascites, cirrhosis GIB Past Surgical History Exploratory laparotomy Ectopic . Active Ordered Medications Tylenol Calcium carbonate Colace Lovenox Diflucan MOM Zofran Social History Ex smoker Occ ETOH Previous hx of drugs Physical Exam Vital Signs Vital Signs Date Time Temp Pulse Resp B/P Pulse Ox O2 Delivery O2 Flow Rate FiO2 11/13/16 08:20 100 21 11/13/16 08:00 98.4 100 16 115/79 100 11/13/16 04:00 98.4 99 16 99/63 98 11/13/16 02:42 16 11/13/16 02:27 98 11/13/16 00:00 97.7 96 16 118/68 97 11/12/16 22:51 86 11/12/16 20:00 96.7 93 17 126/83 98 11/12/16 16:00 96.0 96 16 112/78 100 Physical Exam GENERAL: This is a cachectic chronically ill appearing BF, awake and alert, not in acute distress. SKIN: Cool and dry. Has papular pruritic rash in UE and truck, also between her fingers HEAD: Atraumatic. Normocephalic. No scalp tenderness. Has temporal wasting EYES: Pupils equal round and reactive. Extraocular motions intact. No scleral icterus. No injection or drainage. ENT: Nose without bleeding, pr purulent drainage. She is edentulous, moist mucosa, no thrush. Throat without erythema, or exudate. Uvula midline. Airway patent. NECK: Trachea midline. No JVD. Supple, nontender, no meningeal signs. CARDIOVASCULAR: Regular rate and rhythm without murmurs, gallops, or rubs. RESPIRATORY: Clear to auscultation. Breath sounds equal bilaterally. No wheezes , rales, or rhonchi. GASTROINTESTINAL: Abdomen is distended, bowel sounds present and hypoactive, with diffuse tenderness. No rebound MUSCULOSKELETAL: Extremities without clubbing, cyanosis, or edema. No joint effusion, good ROM. No calf tenderness. NEUROLOGICAL: Awake and alert. Cranial nerves II through XII intact. Five out of 5 muscle strength in all muscle groups. Normal speech. LINE: PIV with no evidence of infection Laboratory Laboratory Tests Test 11/12/16 11/13/16 20:17 07:13 Sodium Level 141 140 Potassium Level 3.4 3.6 Chloride Level 106 107 Carbon Dioxide Level 25.7 27.5 Anion Gap 9 6 Blood Urea Nitrogen 6 6 Creatinine 0.74 0.73 Estimat Glomerular Filtration 100 101 Rate Random Glucose 84 63 Calcium Level 7.2 7.3 Protein Corrected Calcium 7.2 7.4 Total Protein 7.3 6.9 White Blood Count 6.1 Red Blood Count 2.58 Hemoglobin 8.1 Hematocrit 24.4 Mean Corpuscular Volume 94.5 Mean Corpuscular Hemoglobin 31.4 Mean Corpuscular Hemoglobin 33.3 Concent Red Cell Distribution Width 18.0 Platelet Count 134 Mean Platelet Volume 9.5 Neutrophils (%) (Auto) 79.1 Lymphocytes (%) (Auto) 9.6 Monocytes (%) (Auto) 9.5 Eosinophils (%) (Auto) 0.8 Basophils (%) (Auto) 1.0 Neutrophils # (Auto) 4.8 Lymphocytes # (Auto) 0.6 Monocytes # (Auto) 0.6 Eosinophils # (Auto) 0.0 Basophils # (Auto) 0.1 CBC Comment DIFF FINAL Differential Comment Result Diagram: 11/13/1671211/13/16 0713 Imaging RADIOLOGY STUDIES/FILMS REVIEWED Last Impressions Abdomen X-Ray 11/12/16 0729 Signed Impressions: Service Date/Time: Saturday, November 12, 2016 07:53 - CONCLUSION: Small bowel ileus without evidence of pathologic distention. No evidence of free air or significant mass effect.. 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 Dysphagia, clinically does not have any evidence of esophagitis - she is edentulous and that could be part or problem - also has had previous CVA, and this could also be adding to it Cachexia Scabies RECOMMENDATION GI has been consulted Consider doing retap of ascites and thsi time do analysis - last analysis done was July 2016 Brain MRI to evaluate her forgetfulness Get list of meds and could restart her HAART Follow-up with her HIV MD - Dr Ahumada Monitor progress She is on Diflucan - ok to D/C if GI feels same Agree with swallowing eval I will follow along with you Thank you for this consultation Discussed Condition With Cheikh/W Sara Escobar MD Nov 13, 2016 12:49
[2016-11-13] MEDS: FLUCONAZOLE 100 MG PREMIX BAG 50 ML IV SCH (15:05)
--- NOTE | 2016-11-13 16:11 | PD.CONS ---
HPI History of Present Illness This is a 51 year old with a hx of dysphagia, colitis, gastritis, esophageal stricture, schatzki's ring, and HIV who is currently hospitalized for severe electrolyte abnormalities. GI was consulted for dyspepsia/abdominal pain. Patient reports that she has had intermittent abdominal pain for the past 4 months. She describes it as a sharp epigastric pain that sometimes radiates to her back. This is aggravated by any by mouth intake. The only alleviating factor she can identify her the pain medicine she is receiving here in the hospital. She has associated heartburn at times, but no nausea or vomiting. She does have chronic diarrhea about 3-4 loose stools per day, but denies any mucus or blood in her stools. She also has occasional difficulty with foods getting caught in her mid esophagus. She reports that this comes and goes. Of note we have evaluated her in the past for colitis and dysphasia. She was evaluated last with an EGD/Colonoscopy (01/05/16)---> normal duodenum, gastritis in the antrum, stricture/Schatzki's ring distal esophagus status post dilatation 14 savory guidewire, hiatal hernia, 2 diminutive polyps in cecum 5 mm and 6 mm each, cold biopsy with complete removal, 2 polyps at hepatic flexure 6 mm each cold biopsy with complete removal, no normal colon otherwise random biopsies of the ascending and descending colon, medium internal hemorrhoids, decreased sphincter tone. Pathology with small intestinal mucosa without significant histopathologic abnormality, severe chronic gastritis, negative for helicobacter pylori, hepatic flexure adenomatous polyp, ascending colonic mucosa without significant histopathologic abnormality, adenomatous polyp cecum, descending colon with colonic mucosa without significant histopathologic abnormality. (Sil Ash) PFSH Past Medical History Esophageal stricture Schatzki's ring Gastritis Colitis Colonic polyps Diarrhea related to retrovirals HIV CVA Ascites Cirrhosis Malnutrition Past Surgical History Exploratory laparotomy Surgery for Ectopic EGD/Colonoscopy (Sil Ash) Coded Allergies: No Known Allergies (Verified , 11/12/16) Medications Allergies Coded Allergies Type Severity Reaction Last Updated Verified No Known Allergies 11/12/16 Yes Active Scripts Medications Dose Route/Sig Days Date Category No Active Prescriptions or Reported Medications Rx Family History Pt denied any family history. Social History Pt reported having stopped smoking cigarettes recently Occasional ETOH (Sil Ash) Review of Systems Constitutional: COMPLAINS OF: Fatigue, Weight loss, Change in appetite Respiratory: DENIES: Cough, Shortness of breath Cardiovascular: DENIES: Chest pain Gastrointestinal: COMPLAINS OF: Abdominal pain, Diarrhea, Difficulty Swallowing , Swelling of Abdomen, Heartburn, DENIES: Black stools, Bloody stools, Constipation, Nausea, Vomiting, Hematemesis Musculoskeletal: COMPLAINS OF: Joint pain, DENIES: Back pain Integumentary: DENIES: Abnormal pigmentation Hematologic/lymphatic: COMPLAINS OF: Bruising Neurologic: COMPLAINS OF: Headache Psychiatric: DENIES: Confusion (Sil Ash) GI Exam Vitals I&O Vital Signs Date Time Temp Pulse Resp B/P Pulse Ox O2 Delivery O2 Flow Rate FiO2 11/13/16 12:00 98.8 100 18 120/89 100 11/13/16 08:20 100 21 11/13/16 08:00 98.4 100 16 115/79 100 11/13/16 04:00 98.4 99 16 99/63 98 11/13/16 02:42 16 11/13/16 02:27 98 11/13/16 00:00 97.7 96 16 118/68 97 11/12/16 22:51 86 11/12/16 20:00 96.7 93 17 126/83 98 11/12/16 16:00 96.0 96 16 112/78 100 I/O 11/12/16 11/12/16 11/12/16 11/13/16 11/13/16 11/13/16 07:00 15:00 23:00 07:00 15:00 23:00 Intake Total 240 ml 240 ml Balance 240 ml 240 ml Intake Oral 240 ml 240 ml # Voids 1 1 1 Imaging Last Impressions Abdomen X-Ray 11/12/16 0729 Signed Impressions: Service Date/Time: Saturday, November 12, 2016 07:53 - CONCLUSION: Small bowel ileus without evidence of pathologic distention. No evidence of free air or significant mass effect.. Yaya Guzman MD Laboratory Test 11/12/16 11/13/16 20:17 07:13 Sodium Level 141 MEQ/L 140 MEQ/L Potassium Level 3.4 MEQ/L 3.6 MEQ/L Chloride Level 106 MEQ/L 107 MEQ/L Carbon Dioxide Level 25.7 MEQ/L 27.5 MEQ/L Anion Gap 9 MEQ/L 6 MEQ/L Blood Urea Nitrogen 6 MG/DL 6 MG/DL Creatinine 0.74 MG/DL 0.73 MG/DL Estimat Glomerular Filtration 100 ML/MIN 101 ML/MIN Rate Random Glucose 84 MG/DL 63 MG/DL Calcium Level 7.2 MG/DL 7.3 MG/DL Protein Corrected Calcium 7.2 MG/DL 7.4 MG/DL Total Protein 7.3 GM/DL 6.9 GM/DL White Blood Count 6.1 TH/MM3 Red Blood Count 2.58 MIL/MM3 Hemoglobin 8.1 GM/DL Hematocrit 24.4 % Mean Corpuscular Volume 94.5 FL Mean Corpuscular Hemoglobin 31.4 PG Mean Corpuscular Hemoglobin 33.3 % Concent Red Cell Distribution Width 18.0 % Platelet Count 134 TH/MM3 Mean Platelet Volume 9.5 FL Neutrophils (%) (Auto) 79.1 % Lymphocytes (%) (Auto) 9.6 % Monocytes (%) (Auto) 9.5 % Eosinophils (%) (Auto) 0.8 % Basophils (%) (Auto) 1.0 % Neutrophils # (Auto) 4.8 TH/MM3 Lymphocytes # (Auto) 0.6 TH/MM3 Monocytes # (Auto) 0.6 TH/MM3 Eosinophils # (Auto) 0.0 TH/MM3 Basophils # (Auto) 0.1 TH/MM3 CBC Comment DIFF FINAL Differential Comment Physical Examination HEENT: Normocephalic; atraumatic; no jaundice. Oral thrush CHEST: CTA CARDIAC: RRR ABDOMEN: Soft, nondistended, epigastric tenderness; no hepatosplenomegaly; bowel sounds are present in all four quadrants. EXTREMITIES: No clubbing, cyanosis, or edema. SKIN: Normal; no rash; no jaundice. 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 (Sil AshP) Assessment and Plan Plan ASSESSMENT: - Abdominal pain. Abdomen X-Ray (11/12/16)----> Small bowel ileus without evidence of pathologic distention. No evidence of free air or significant mass effect. Last EGD/Colonoscopy (01/05/16)---> normal duodenum , gastritis in the antrum, stricture/Schatzki's ring distal esophagus status post dilatation 14 savory guidewire, hiatal hernia, 2 diminutive polyps in cecum 5 mm and 6 mm each, cold biopsy with complete removal, 2 polyps at hepatic flexure 6 mm each cold biopsy with complete removal, no normal colon otherwise random biopsies of the ascending and descending colon, medium internal hemorrhoids, decreased sphincter tone. Pathology with small intestinal mucosa without significant histopathologic abnormality, severe chronic gastritis, negative for helicobacter pylori, hepatic flexure adenomatous polyp, ascending colonic mucosa without significant histopathologic abnormality, adenomatous polyp cecum, descending colon with colonic mucosa without significant histopathologic abnormality. C/O Sharp constant severe pain. Add PPI. Will get CT scan. Consider EGD with possible dilatation on Tuesday. - Dysphagia. Does have hx of strictures/schatzki's ring, has oral thrush. Diflucan, Magic mouthwash. - Elevated LFTs. Will get CT. - Abn. Wt. Loss, 23 lbs over the past 3 months. - Chronic diarrhea. This has been worked up in the past and thought to be related to retrovirals. - Oral Candidiasis. Diflucan, - Anemia, normocytic. Stable, HH 8.1/24.4. - Electrolyte abnormalities. Replacement/correction per primary - HIV, AIDS. ID following. PLAN: - JARAD - Add Protonix 40mg IV BID - Cont. Diflucan - Cont. Magic mouthwash - CT Scan abdomen and pelvis with IV/PO contrast - Monitor labs, lipase - Supportive care - Further recommendations to follow based on results of above - PT seen and examined by Dr. Rodriguez and myself and this note is written on her behalf. (Sil Ash) Physician Comments seen, examined agree with above await ct report may need paracentesis , egd/colonoscopy based on the above report (Karen Rodriguez MD) Sil Ash Nov 13, 2016 16:11 Karen Rodriguez MD Nov 13, 2016 17:06
[2016-11-13] MEDS ORDERED: DIATRIZOATE MEGLUM/DIATRIZOATE SOD 9 ML CUP PO ONE (17:00)
[2016-11-13] MEDS: PANTOPRAZOLE SODIUM 40 MG VIAL IV PUSH SCH (17:33)
[2016-11-13] MEDS: SODIUM CHLOR 0.9% 1000 ML INJ 1,000 ML IV SCH (21:11)
[2016-11-13] MEDS: ACETAMINOPHEN 325 MG TAB PO PRN (22:39)
[2016-11-14] VITALS (8 sets, daily range): BP systolic 98–118; BP diastolic 65–83; PULSE 84–114; RESP 16–20; TEMP 97.1–99.4; O2SAT 95–100
[2016-11-14 02:13] LABS: BICARBONATE 23.5 MEQ/L (21.0-32.0); POTASSIUM 3.8 MEQ/L (3.5-5.1)
[2016-11-14] MEDS ORDERED: ALUMINUM/MAGNESIUM/SIMETH 30 ML CUP PO ONE (02:15)
[2016-11-14 02:32] LABS: CALCIUM-PROTEIN CORRECTED 7.3 MG/DL (8.5-10.1)
[2016-11-14] MEDS: PANTOPRAZOLE SODIUM 40 MG VIAL IV PUSH SCH ×2 (02:45→16:15)
[2016-11-14] MEDS ORDERED: CALCIUM GLUCONATE INJ 1 GM in SODIUM CHLORIDE 0.9% INJ 90 ML IV ONE (02:45)
[2016-11-14] MEDS: SODIUM CHLOR 0.9% 1000 ML INJ 1,000 ML IV SCH ×2 (05:30→13:21)
[2016-11-14 07:03] LABS: HEMATOCRIT 21.8 % (35.0-46.0); MEAN CORPUSCULAR HEMOGLOBIN 31.3 PG (27.0-34.0); MEAN CORPUSCULAR HGB CONC 32.9 % (32.0-36.0); PLATELET COUNT 116 TH/MM3 (150-450); RED BLOOD COUNT 2.29 MIL/MM3 (4.00-5.30); WHITE BLOOD COUNT 4.9 TH/MM3 (4.0-11.0)
[2016-11-14 07:11] LABS: HEMO FLAGS AUTO DIFF
[2016-11-14 07:53] LABS: BICARBONATE 24.5 MEQ/L (21.0-32.0); INDIRECT BILIRUBIN 0.3 MG/DL (0.0-0.8); MAGNESIUM 1.9 MG/DL (1.5-2.5); POTASSIUM 3.6 MEQ/L (3.5-5.1); TOTAL BILIRUBIN ADULT 0.9 MG/DL (0.2-1.0)
[2016-11-14 07:59] LABS: CALCIUM-PROTEIN CORRECTED 7.8 MG/DL (8.5-10.1)
--- NOTE | 2016-11-14 08:13 | HHI.PR ---
Subjective Remarks Patient in the bed, says she is eating better. [place] nauseated but did not vomiting. Feels belly is filling up. No abdominal pain. Denies fevers or chills. Objective Vitals Vital Signs Date Time Temp Pulse Resp B/P Pulse Ox O2 Delivery O2 Flow Rate FiO2 11/14/16 04:00 98.1 99 18 99/65 97 11/14/16 00:00 99.4 114 17 106/75 95 11/13/16 20:00 100.8 113 18 102/60 96 11/13/16 20:00 109 11/13/16 17:04 88 11/13/16 16:00 98.0 99 18 112/82 100 11/13/16 12:00 98.8 100 18 120/89 100 11/13/16 08:20 100 21 I/O 11/13/16 11/13/16 11/13/16 11/14/16 11/14/16 11/14/16 07:00 15:00 23:00 07:00 15:00 23:00 Intake Total 240 ml 480 ml 920 ml 240 ml Output Total 600 ml 250 ml 200 ml Balance 240 ml -120 ml 670 ml 40 ml Intake Oral 240 ml 480 ml 480 ml 240 ml IV Total 440 ml Output Urine Total 600 ml 250 ml 200 ml # Voids 1 # Bowel Movements 1 Result Diagram: 11/14/16 0621 11/14/16 0621 Imaging Last Impressions Abdomen/Pelvis CT 11/14/16 0000 Signed Impressions: Service Date/Time: Monday, November 14, 2016 08:14 - CONCLUSION: 1. Cirrhotic liver with a large amount of ascites. There are varices in the left upper quadrant around the spleen. 2. Mild bilateral pleural effusions with accompanying atelectasis or consolidation at the lung bases. 3. Small nodule seen in the right middle lobe region on the first image obtained. This was present on a prior CTA from 08/20/2015. Nelson Pinon MD Abdomen X-Ray 11/12/16 0729 Signed Impressions: Service Date/Time: Saturday, November 12, 2016 07:53 - CONCLUSION: Small bowel ileus without evidence of pathologic distention. No evidence of free air or significant mass effect.. Yaya Guzman MD Objective Remarks GENERAL: This is a cachectic appearing, very thin patient, in no apparent distress. SKIN: No rashes, ecchymoses or lesions. Cool and dry. Nursing indicated the presence of generalized scabies, but this was not readily apparent. HEAD: Bitemporal sunken,muscle waiting. Atraumatic. Normocephalic. No temporal or scalp tenderness. EYES: Pupils equal round and reactive. Extraocular motions intact. No scleral icterus. No injection or drainage. ENT: Nose without bleeding, purulent drainage or septal hematoma. Throat without erythema, tonsillar hypertrophy. Tara noted on tongue. Uvula midline. Airway patent. NECK: Trachea midline. No JVD or lymphadenopathy. Supple, nontender, no meningeal signs. CARDIOVASCULAR: Regular rate and rhythm without murmurs, gallops, or rubs. RESPIRATORY: Clear to auscultation. Breath sounds equal bilaterally. No wheezes , rales, or rhonchi. GASTROINTESTINAL: Abdomen is distended, nontender, +BS x4Q . No guarding. Dullness heard upon palpation. 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 Muscle waisting. Extremities without clubbing, cyanosis, or edema. No joint tenderness, effusion, or edema noted. No calf tenderness. Negative Homans sign bilaterally. Muscle tone and mass is noted to be decreased. NEUROLOGICAL: Awake, alert and oriented x3. Cranial nerves II through XII intact. Motor and sensory grossly within normal limits. Five out of 5 muscle strength in all muscle groups. Normal speech. A/P Assessment and Plan Severe symptomatic Hypocalcemia Severe symptomatic Hypokalemia Received Ca gluconate in the ED and KCL IV Give another Ca gluconate IV 11/14 Repeat BMP Replenish electrolytes. HIV positive. 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 On fluconazole and magic wash as above Normocytic anemia, H/H appears at baseline. - Follow CBC Hypoalbuminemia -follow trend with labs Protein calorie malnutrition, cachectic, muscle waisting, low albumin.Will check prealbumin. Add ensure. Will consult hazardous material specialist. Discussed with the patient and the nurse. Kassidy Terry MD Nov 14, 2016 08:13
[2016-11-14 08:23] LABS: BANDS 1 % (0-6); EOSINOPHILS 1 % (0-4); NEUTROPHIL # MANUAL DIFF 4.5 TH/MM3 (1.8-7.7); POLYS (SEG NEUTROPHILS) 91 % (16-70); WBC DIFF SAMPLE 100
[2016-11-14 08:25] LABS: ACANTHOCYTES OCC (NORMAL); KERATOCYTES OCC (NORMAL); OVALOCYTES 1+ (NORMAL); PLATELET ESTIMATE SMEAR LOW (NORMAL); PLATELET MORPHOLOGY NORMAL (NORMAL); SCAN/DIFF FINAL DIFF MANUAL
[2016-11-14] MEDS ORDERED: IOHEXOL 350 MG/ML 10 ML VIAL (for RAD DIAG) IV ONE ×2 (08:36→18:02)
[2016-11-14 08:50] LABS: CKMB 3.3 NG/ML (0.5-3.6)
--- NOTE | 2016-11-14 08:53 | RADRPT ---
EXAM DATE/TIME: 11/14/2016 08:14 [facility] COMPARISON: CT PULMONARY ANGIOGRAM, August 20, 2015, 16:15. CT ABDOMEN & PELVIS W CONTRAST, August 10, 2016, 2 1:23. INDICATIONS : Intermittent epigastric pain. IV CONTRAST: 95 cc Omnipaque 350 (iohexol) IV ORAL CONTRAST: Prescribed oral contrast ingested. RADIATION DOSE: 9.96 CTDIvol (mGy) MEDICAL HISTORY : HIV. Colitis. Gastritis. SURGICAL HISTORY : section. ENCOUNTER: Initial ACUITY: 4 - 6 months PAIN SCALE: 6/10 LOCATION: Bilateral upper quadrant TECHNIQUE: Volumetric scanning of the abdomen and pelvis was performed. Using automated exposure control and ad justment of the mA and/or kV according to patient size, radiation dose was kept as low as reasonably achievable to obtain optimal diagnostic quality images. FINDINGS: LOWER LUNGS: There are mild bilateral pleural effusions and accompanying posterior atelectasis or consolidation be ing worse on the left. There is a small 3 mm nodule seen in the anterior lateral right middle lobe re gion seen on the first image obtained. This was present on prior CTA from 08/20/2015. LIVER: Liver has a nodular surface consistent with cirrhosis. No focal hepatic masses are seen. There is a l arge amount of ascites. SPLEEN: Normal size without lesion. There are varices seen at the splenic hilum and left upper quadrant regio n. PANCREAS: Within normal limits. KIDNEYS: Normal in size and shape. There is no mass, stone or hydronephrosis. ADRENAL GLANDS: Within normal limits. VASCULAR: There is no aortic aneurysm. BOWEL/MESENTERY: The stomach, small bowel, and colon demonstrate no acute abnormality. There is no free intraperitone al air or fluid. ABDOMINAL WALL: Within normal limits. RETROPERITONEUM: There is no lymphadenopathy. BLADDER: No wall thickening or mass. REPRODUCTIVE: Within normal limits. INGUINAL: There is no lymphadenopathy or hernia. MUSCULOSKELETAL: Within normal limits for patient age. CONCLUSION: 1. Cirrhotic liver with a large amount of ascites. There are varices in the left upper quadrant aroun d the spleen. 2. Mild bilateral pleural effusions with accompanying atelectasis or consolidation at the lung bases. 3. Small nodule seen in the right middle lobe region on the first image obtained. This was present on a prior CTA from 08/20/2015. Nelson Pinon MD on November 14, 2016 at 8:43 Board Certified Radiologist. This report was verified electronically.
[2016-11-14] MEDS: NYSTAT/DIPHENHY/LIDO MOUTHWASH (Adult) 120ML SWISH-SWAL SCH ×4 (08:54→20:42)
[2016-11-14] MEDS: CALCIUM CARBONATE 500 MG CHEWABLE TAB CHEW SCH ×2 (08:54→20:42)
[2016-11-14] MEDS: SODIUM CHLORIDE 0.9% FLUSH 10 ML FLUSH IV FLUSH SCH ×2 (08:56→20:42)
[2016-11-14] MEDS: DOCUSATE SODIUM 100 MG CAP PO SCH ×4 (12:00→23:24)
--- NOTE | 2016-11-14 12:20 | HHI.GIFU ---
Subjective Remarks Pt reports that her abd pain and distension is unchanged. She states that she feels like she needs the fluid drained out again. Pt developed chest pain and some SOB last night but she states that she is still having the chest pain and that its a constant pain between her breasts. She states that the pain is somewhat reproducible with palpation. Pt noted to have elevated troponin I and Cardiology is consulted. (Ct [facility]) Objective Vitals I&O Vital Signs Date Time Temp Pulse Resp B/P Pulse Ox O2 Delivery O2 Flow Rate FiO2 11/14/16 07:50 97.3 88 20 98/71 100 11/14/16 04:00 98.1 99 18 99/65 97 11/14/16 00:00 99.4 114 17 106/75 95 11/13/16 20:00 100.8 113 18 102/60 96 11/13/16 20:00 109 11/13/16 17:04 88 11/13/16 16:00 98.0 99 18 112/82 100 I/O 11/13/16 11/13/16 11/13/16 11/14/16 11/14/16 11/14/16 07:00 15:00 23:00 07:00 15:00 23:00 Intake Total 240 ml 480 ml 920 ml 240 ml Output Total 600 ml 250 ml 200 ml Balance 240 ml -120 ml 670 ml 40 ml Intake Oral 240 ml 480 ml 480 ml 240 ml IV Total 440 ml Output Urine Total 600 ml 250 ml 200 ml # Voids 1 # Bowel Movements 1 Laboratory Laboratory Tests Test 11/14/16 11/14/16 01:27 06:21 Sodium Level 140 141 Potassium Level 3.8 3.6 Chloride Level 108 109 Carbon Dioxide Level 23.5 24.5 Anion Gap 9 8 Blood Urea Nitrogen 8 7 Creatinine 0.86 0.86 Estimat Glomerular Filtration 84 84 Rate Random Glucose 72 85 Calcium Level 7.0 7.3 Protein Corrected Calcium 7.3 7.8 Troponin I 0.09 1.39 Total Protein 6.5 6.1 White Blood Count 4.9 Red Blood Count 2.29 Hemoglobin 7.2 Hematocrit 21.8 Mean Corpuscular Volume 95.0 Mean Corpuscular Hemoglobin 31.3 Mean Corpuscular Hemoglobin 32.9 Concent Red Cell Distribution Width 18.0 Platelet Count 116 Mean Platelet Volume 9.3 Neutrophils (%) (Auto) Lymphocytes (%) (Auto) Monocytes (%) (Auto) Eosinophils (%) (Auto) Basophils (%) (Auto) Neutrophils # (Auto) Lymphocytes # (Auto) Monocytes # (Auto) Eosinophils # (Auto) Basophils # (Auto) CBC Comment AUTO DIFF Differential Total Cells 100 Counted Neutrophils % (Manual) 91 Band Neutrophils % 1 Lymphocytes % 2 Monocytes % 5 Eosinophils % 1 Neutrophils # (Manual) 4.5 Differential Comment FINAL DIFF MANUAL Platelet Estimate LOW Platelet Morphology Comment NORMAL Ovalocytes 1+ Acanthocytes OCC Keratocytes OCC Phosphorus Level 3.7 Magnesium Level 1.9 Total Bilirubin 0.9 Direct Bilirubin 0.6 Indirect Bilirubin 0.3 Aspartate Amino Transf 40 (AST/SGOT) Alanine Aminotransferase 11 (ALT/SGPT) Alkaline Phosphatase 128 Total Creatine Kinase 234 Creatine Kinase MB 3.3 Creatine Kinase MB % 1.4 Albumin 0.8 Imaging Last Impressions Abdomen/Pelvis CT 11/14/16 0000 Signed Impressions: Service Date/Time: Monday, November 14, 2016 08:14 - CONCLUSION: 1. Cirrhotic liver with a large amount of ascites. There are varices in the left upper quadrant around the spleen. 2. Mild bilateral pleural effusions with accompanying atelectasis or consolidation at the lung bases. 3. Small nodule seen in the right middle lobe region on the first image obtained. This was present on a prior CTA from 08/20/2015. Nelson Pinon MD Abdomen X-Ray 11/12/16 0729 Signed Impressions: Service Date/Time: Saturday, November 12, 2016 07:53 - CONCLUSION: Small bowel ileus without evidence of pathologic distention. No evidence of free air or significant mass effect.. Yaya Guzman MD Physical Exam GENERAL: Thin ill appearing female in NAD NECK: Neck is supple CHEST: CTA CARDIAC: Regular ABDOMEN: +BS, firm, distended, diffusely tender. EXTREMITIES: No clubbing, cyanosis, or edema. RATE QUOTING OPERATOR: No focal deficits; alert and oriented times three. (Ct [facility]) Assessment and Plan Plan ASSESSMENT: - Abdominal pain. Abdomen X-Ray (11/12/16)----> Small bowel ileus without evidence of pathologic distention. No evidence of free air or significant mass effect. Last EGD/Colonoscopy (01/05/16)---> normal duodenum , gastritis in the antrum, stricture/Schatzki's ring distal esophagus status post dilatation 14 savory guidewire, hiatal hernia, 2 diminutive polyps in cecum 5 mm and 6 mm each, cold biopsy with complete removal, 2 polyps at hepatic flexure 6 mm each cold biopsy with complete removal, no normal colon otherwise random biopsies of the ascending and descending colon, medium internal hemorrhoids, decreased sphincter tone. Pathology with small intestinal mucosa without significant histopathologic abnormality, severe chronic gastritis, negative for Helicobacter pylori, hepatic flexure adenomatous polyp, ascending colonic mucosa without significant histopathologic abnormality, adenomatous polyp cecum, descending colon with colonic mucosa without significant histopathologic abnormality. CT Abd/pelvis (11/14) --> Cirrhotic liver with a large amount of ascites. There are varices in the left upper quadrant around the spleen. Mild bilateral pleural effusions with accompanying atelectasis or consolidation at the lung bases. Small nodule seen in the right middle lobe region on the first image obtained. This was present on a prior CTA from 08/20/2015. PPI - Dysphagia. Does have hx of strictures/Schatzki's ring, has oral thrush. Diflucan, Magic mouthwash. - Elevated troponin and chest pain. Troponin 0.09 --> 1.39 Cardiology is consulted - Elevated LFTs/Liver cirrhosis. CT Abd/pelvis (11/14) --> Cirrhotic liver with a large amount of ascites. There are varices in the left upper quadrant around the spleen. Mild bilateral pleural effusions with accompanying atelectasis or consolidation at the lung bases. Small nodule seen in the right middle lobe region on the first image obtained. This was present on a prior CTA from 08/20/2015. Hepatitis panel, AMA, ASMA, ZAYRA, Ceruloplasmin, [id number] in 07/2016 was negative. Pt with a hx of EtOH abuse. Pts last US guided paracentesis was on 11/01/16 with removal of 2900cc of yellow ascetic fluid. Pt was discharged on Lasix 20mg po BID and Aldactone 25mg po BID after July 2016 admission. - Abn. Wt. Loss, 23 lbs over the past 3 months. - Chronic diarrhea. This has been worked up in the past and thought to be related to retrovirals. - Oral Candidiasis. Diflucan, - Anemia, normocytic. HH 7.2/21.8 - Electrolyte abnormalities. Replacement/correction per primary - HIV, AIDS. ID following. PLAN: - JARAD - Cont. Protonix 40mg IV BID - Resume Lasix 20mg po BID when BP allows vs. repeat paracentesis. Will discuss with Dr. Rodriguez - Plan for EGD once evaluated and cleared by Cardiology for her noted elevated Troponin - Cont. Diflucan - Cont. Magic mouthwash - Monitor labs, lipase - Supportive care - Further recommendations to follow based on results of above - PT seen and examined by Dr. Rodriguez and myself and this note is written on her behalf. (Ct [facility]) Physician Comments seen, examined agree with above us guided paracentesis -diagnostic and therapeutic (Karen Rodriguez MD) Ct Singer Nov 14, 2016 12:20 Karen Rodriguez MD Nov 14, 2016 15:39
--- NOTE | 2016-11-14 12:32 | HHI.IDPN ---
Subjective Subjective Remarks Notes reviewed No fever CT with large ascites GI notes reviewed Antibiotics Diflucan Lines PIV Past Medical History HIV GI bleeds CVA Ascites, cirrhosis GIB Past Surgical History Exploratory laparotomy Ectopic . Allergies: Coded Allergies: No Known Allergies (Verified , 11/12/16) Objective . Vital Signs Date Time Temp Pulse Resp B/P Pulse Ox O2 Delivery O2 Flow Rate FiO2 11/14/16 07:50 97.3 88 20 98/71 100 11/14/16 04:00 98.1 99 18 99/65 97 11/14/16 00:00 99.4 114 17 106/75 95 11/13/16 20:00 100.8 113 18 102/60 96 11/13/16 20:00 109 11/13/16 17:04 88 11/13/16 16:00 98.0 99 18 112/82 100 11/13/16 11/13/16 11/14/16 15:00 23:00 07:00 Intake Total 480 ml 920 ml 240 ml Output Total 600 ml 250 ml 200 ml Balance -120 ml 670 ml 40 ml Intake Oral 480 ml 480 ml 240 ml IV Total 440 ml Output Urine Total 600 ml 250 ml 200 ml # Bowel Movements 1 . Laboratory Tests Test 11/13/16 11/14/16 07:13 06:21 White Blood Count 6.1 TH/MM3 4.9 TH/MM3 Red Blood Count 2.58 MIL/MM3 2.29 MIL/MM3 Hemoglobin 8.1 GM/DL 7.2 GM/DL Hematocrit 24.4 % 21.8 % Mean Corpuscular Volume 94.5 FL 95.0 FL Mean Corpuscular Hemoglobin 31.4 PG 31.3 PG Mean Corpuscular Hemoglobin 33.3 % 32.9 % Concent Red Cell Distribution Width 18.0 % 18.0 % Platelet Count 134 TH/MM3 116 TH/MM3 Mean Platelet Volume 9.5 FL 9.3 FL Neutrophils (%) (Auto) 79.1 % % Lymphocytes (%) (Auto) 9.6 % % Monocytes (%) (Auto) 9.5 % % Eosinophils (%) (Auto) 0.8 % % Basophils (%) (Auto) 1.0 % % Neutrophils # (Auto) 4.8 TH/MM3 TH/MM3 Lymphocytes # (Auto) 0.6 TH/MM3 TH/MM3 Monocytes # (Auto) 0.6 TH/MM3 TH/MM3 Eosinophils # (Auto) 0.0 TH/MM3 TH/MM3 Basophils # (Auto) 0.1 TH/MM3 TH/MM3 CBC Comment DIFF FINAL AUTO DIFF Differential Comment FINAL DIFF MANUAL Differential Total Cells 100 Counted Neutrophils % (Manual) 91 % Band Neutrophils % 1 % Lymphocytes % 2 % Monocytes % 5 % Eosinophils % 1 % Neutrophils # (Manual) 4.5 TH/MM3 Platelet Estimate LOW Platelet Morphology Comment NORMAL Ovalocytes 1+ Acanthocytes OCC Keratocytes OCC Laboratory Tests Test 11/12/16 11/13/16 11/14/16 11/14/16 20:17 07:13 01:27 06:21 Sodium Level 141 MEQ/L 140 MEQ/L 140 MEQ/L 141 MEQ/L Potassium Level 3.4 MEQ/L 3.6 MEQ/L 3.8 MEQ/L 3.6 MEQ/L Chloride Level 106 MEQ/L 107 MEQ/L 108 MEQ/L 109 MEQ/L Carbon Dioxide Level 25.7 MEQ/L 27.5 MEQ/L 23.5 MEQ/L 24.5 MEQ/L Anion Gap 9 MEQ/L 6 MEQ/L 9 MEQ/L 8 MEQ/L Blood Urea Nitrogen 6 MG/DL 6 MG/DL 8 MG/DL 7 MG/DL Creatinine 0.74 MG/DL 0.73 MG/DL 0.86 MG/DL 0.86 MG/DL Estimat Glomerular Filtration 100 ML/MIN 101 ML/MIN 84 ML/MIN 84 ML/MIN Rate Random Glucose 84 MG/DL 63 MG/DL 72 MG/DL 85 MG/DL Calcium Level 7.2 MG/DL 7.3 MG/DL 7.0 MG/DL 7.3 MG/DL Protein Corrected Calcium 7.2 MG/DL 7.4 MG/DL 7.3 MG/DL 7.8 MG/DL Total Protein 7.3 GM/DL 6.9 GM/DL 6.5 GM/DL 6.1 GM/DL Lipase 121 U/L Troponin I 0.09 NG/ML 1.39 NG/ML Phosphorus Level 3.7 MG/DL Magnesium Level 1.9 MG/DL Total Bilirubin 0.9 MG/DL Direct Bilirubin 0.6 MG/DL Indirect Bilirubin 0.3 MG/DL Aspartate Amino Transf 40 U/L (AST/SGOT) Alanine Aminotransferase 11 U/L (ALT/SGPT) Alkaline Phosphatase 128 U/L Total Creatine Kinase 234 U/L Creatine Kinase MB 3.3 NG/ML Creatine Kinase MB % 1.4 % Albumin 0.8 GM/DL Imaging Last Impressions Abdomen/Pelvis CT 11/14/16 0000 Signed Impressions: Service Date/Time: Monday, November 14, 2016 08:14 - CONCLUSION: 1. Cirrhotic liver with a large amount of ascites. There are varices in the left upper quadrant around the spleen. 2. Mild bilateral pleural effusions with accompanying atelectasis or consolidation at the lung bases. 3. Small nodule seen in the right middle lobe region on the first image obtained. This was present on a prior CTA from 08/20/2015. Nelson Pinon MD Abdomen X-Ray 11/12/16 0729 Signed Impressions: Service Date/Time: Saturday, November 12, 2016 07:53 - CONCLUSION: Small bowel ileus without evidence of pathologic distention. No evidence of free air or significant mass effect.. Yaya Guzman MD Physical Exam GENERAL: This is a cachectic chronically ill appearing BF, awake and alert, not in acute distress. SKIN: Cool and dry. Has papular pruritic rash in UE and truck, also between her fingers HEAD: Atraumatic. Normocephalic. No scalp tenderness. Has temporal wasting EYES: Pupils equal round and reactive. Extraocular motions intact. No scleral icterus. No injection or drainage. ENT: Nose without bleeding, pr purulent drainage. She is edentulous, moist mucosa, no thrush. Throat without erythema, or exudate. White coating tongue. NECK: Trachea midline. No JVD. Supple, nontender, no meningeal signs. CARDIOVASCULAR: Regular rate and rhythm without murmurs, gallops, or rubs. RESPIRATORY: Clear to auscultation. Breath sounds equal bilaterally. No wheezes , rales, or rhonchi. GASTROINTESTINAL: Abdomen is distended, bowel sounds present and hypoactive, with diffuse tenderness. No rebound MUSCULOSKELETAL: Extremities without clubbing, cyanosis, or edema. No joint effusion, good ROM. No calf tenderness. NEUROLOGICAL: Awake and alert. Cranial nerves II through XII intact. Five out of 5 muscle strength in all muscle groups. Normal speech. 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
[2016-11-14] MEDS: FLUCONAZOLE 100 MG PREMIX BAG 50 ML IV SCH (13:20)
[2016-11-14] MEDS: ENOXAPARIN SODIUM 40 MG/0.4 ML SYRINGE SQ SCH (13:21)
--- NOTE | 2016-11-14 13:38 | EKG ---
Date Performed: 11/14/2016 Time Performed: 07:31:48 PTAGE: 51 years EKG: Sinus rhythm LOW QRS VOLTAGE IN EXTREMITY LEADS Compared to prior tracing no significant change BORDERLINE ECG PREVIOUS TRACING : 11/12/2016 07.32 DOCTOR: Akbar Delarosa Interpretating Date/Time 11/14/2016 13:33:37
--- NOTE | 2016-11-14 13:39 | EKG ---
Date Performed: 11/14/2016 Time Performed: 01:33:42 PTAGE: 51 years EKG: Sinus tachycardia. Low QRS voltages in precordial leads Compared to prior tracing no signif icant change Borderline ECG PREVIOUS TRACING : 11/12/2016 07.32 DOCTOR: Akbar Delarosa Interpretating Date/Time 11/14/2016 13:33:47
[2016-11-14] MEDS ORDERED: CALCIUM GLUCONATE INJ 1 GM in DEXTROSE 5% IN WATER 100ML INJ 100 ML IV ONE ×2 (14:15)
[2016-11-14] MEDS: SODIUM CHLOR 0.45% 1000 ML INJ 1,000 ML IV SCH (14:15)
--- NOTE | 2016-11-14 15:04 | MB ---
cc: JEN LEE DO DATE OF CONSULTATION: 11/14/2016. REASON FOR CONSULTATION: Elevated troponins. HISTORY OF PRESENT ILLNESS: Epifanio Helm is a pleasant 51-year-old female who presented to [facility] on November 12, 2016 due abdominal pain. She states that she has been at [facility] for paracentesis approximately every two to three weeks. She has had abdominal pain over the past few days and noticed that her abdominal distention has been increasing. She has also noticed some diarrhea. Per the ED records, she is confused on how to take her HIV medications. On speaking to her, she states that she is having a lot of trouble with her medications and taking them when she should. Last night she had chest pain. The pain was in the center of her chest. She was also somewhat short of breath, although this is difficult to ascertain as the patient is a poor historian. EKG done at that time shows no significant ST-T wave changes. Troponins were drawn and found to be elevated at 1.39. On seeing her she is currently hemodynamically stable without chest pain or shortness of breath. PAST MEDICAL HISTORY: 1. HIV. 2. GI bleeds. 3. Stroke. 4. Ascites with cirrhosis. 5. Gastritis. PAST SURGICAL HISTORY: 1. Exploratory laparotomy. 2. . 3. Ectopic . ALLERGIES: NO KNOWN DRUG ALLERGIES. MEDICATIONS: The patient is believed to be on: 1. Lasix 20 milligrams twice a day. 2. Lactulose 30 mL daily. 3. Protonix 40 milligrams daily. 4. Aldactone 25 milligrams twice a day. 5. Bactrim. FAMILY HISTORY Denies premature coronary artery disease or sudden cardiac within the family. SOCIAL HISTORY: The patient previously smoked but reports stopping cigarettes. She has a history of cocaine use but states that she has not used in the past seven months, although she told the primary team that she has not done it in years. REVIEW OF SYSTEMS Fourteen systems were reviewed including osteopathic with pertinent positives and negatives as above; otherwise negative. PHYSICAL EXAMINATION VITAL SIGNS: Temperature 87.3, heart rate 88, blood pressure 98/71, respirations 20, pulse oximetry 100% on room air. GENERAL: In general she is a cachectic and chronically ill-appearing female. She is alert and awake and in no acute distress. HEAD, EYES, EARS, NOSE, THROAT: Extraocular muscles intact. Mucous membranes moist. Poor dentition. NECK: The neck is supple. No JVD at 45 degrees. No carotid bruits heard bilaterally. Carotid upstroke is brisk in nature. HEART: Regular rate and rhythm. Positive first and second heart sounds with no noted murmurs, gallops or rubs. LUNGS: Decreased breath sounds at the bilateral bases but no overt wheezes, rales or rhonchi. ABDOMEN: Distended. Bowel sounds are present. Diffuse tenderness. No rebound. EXTREMITIES: No clubbing, cyanosis or edema. Femoral and distal pulses are intact bilaterally. NEUROLOGIC: No focal deficits. SKIN: Warm, dry and intact. OSTEOPATHIC: Osteopathically, mild kyphoscoliosis, no lordosis or paraspinal tender points. LABORATORY STUDIES: Hemoglobin 7.2, hematocrit 21.8, platelets 116,000. INR 1.4. Potassium 3.6, BUN 7, creatinine 0.86. Troponin 1.39. EKGS: Electrocardiogram (November 14, 2016 at 0731): Sinus rhythm, low Q-R-S voltage in the extremity leads. No significant change from November 14, 2016 at 0133. IMPRESSION: 1. Elevated troponins, possible type 1 versus type 2. 2. Chest pain somewhat atypical for coronary insufficiency. 3. History of HIV. 4. Noncompliance with medications due to confusion. 5. History of GI bleeds. 6. History of CVA. 7. Cirrhosis with ascites the lab. 8. Anemia secondary to liver disease. 9. Thrombocytopenia secondary to liver disease. 10. Elevated INR secondary to liver disease. 11. Gastric varices noted in the left upper quadrant around the spleen on CT. 12. Bilateral pleural effusions with atelectasis on CT. RECOMMENDATIONS: 1. I spoke to Epifanio extensively about further considerations on ischemic evaluation versus medical management. At this time she would like to continue with medical management of her presumed coronary artery disease. 2. My concern with a further invasive evaluation would be her noncompliance and confusion with medications as well as her anemia, thrombocytopenia, gastric varices, coagulopathy and placing her on further antiplatelet or anticoagulant agents. 3. Although she denies using cocaine recently, she either is unsure of the last time she used it or telling different doctors different things about the last time she used it. This will most likely come back positive for opiates as she recently has had Dilaudid. 4. We will plan on checking a 2-D echo to look at her overall left ventricular function, cardiac structure and possible valvulopathies. 5. As far as risk assessment for any GI procedure, although the GI procedures are low-risk she currently is at an elevated risk. We will wait until we obtain an echocardiogram to look at her overall left ventricular function before proceeding. 6. We will check a D-dimer in light of her chest pain as she has had some tachycardia, and although she is a cirrhotic patient, this does not preclude her from pulmonary embolus. If positive, will discuss with the primary team about further workup for consideration of pulmonary embolism. Further recommendations will be made based on the hospital course. Thank you for allowing me to see Epifanio Helm. If there are any questions, please do not hesitate to call. Jen Lee DO VGP/JCC /1:15 PM /2:48 PM
[2016-11-14] MEDS ORDERED: PHYTONADIONE 10 MG/ML VIAL SQ ONE (15:45)
[2016-11-14 16:52] LABS: INTERNATIONAL NORMALIZED RATIO 1.5 RATIO; PROTHROMBIN TIME - PATIENT 16.9 SEC (9.8-11.6)
[2016-11-14 17:06] LABS: CKMB 4.1 NG/ML (0.5-3.6)
[2016-11-14] MEDS ORDERED: SODIUM CHLOR 0.9% 250 ML INJ 250 ML IV ONE (17:15)
[2016-11-14] MEDS ORDERED: GADODIAMIDE PF 287 MG/ML 10 ML VIAL (for RAD MRI) IV ONE (17:32)
--- NOTE | 2016-11-14 17:53 | RADRPT ---
EXAM DATE/TIME: 11/14/2016 17:17 [facility] COMPARISON: MRI BRAIN W & W/O CONTRAST, May 25, 2013, 9:48. INDICATIONS : Altered mental status. CONTRAST: 10 cc Omniscan (gadodiamide) IV MEDICAL HISTORY : HIV. Cirrhosis. SURGICAL HISTORY : section. ENCOUNTER: Initial ACUITY: 1 day PAIN SCORE: 0/10 LOCATION: cranial TECHNIQUE: Multiplanar, multisequence MRI of the brain was performed both prior to and following the administrat ion of paramagnetic contrast. FINDINGS: CEREBRUM: The ventricles are normal for age. No evidence of midline shift, mass lesion, hemorrhage or acute in farction. No extraaxial fluid collections are seen. The pituitary gland and suprasellar cistern are normal in configuration. WHITE MATTER: No significant signal abnormalities are seen in the white matter. POSTERIOR FOSSA: There are 2 lacunar infarcts in the posterior central jered which are unchanged in appearance when com pared to prior MRI in May 2013. DIFFUSION IMAGING: No focal areas of restricted diffusion are seen in either the supra-or infratentorial brain or brains tem. No evidence of acute infarction. EXTRACRANIAL: The visualized portions of the orbits and paranasal sinuses are unremarkable. 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 POST-CONTRAST: No abnormal areas of parenchymal or dural enhancement. No evidence of blood-brain barrier breakdown. CONCLUSION: No acute findings in the brain. Lacunar infarcts in the jered, unchanged from 2012. Jose Long MD on November 14, 2016 at 17:44 Board Certified Radiologist. This report was verified electronically.
--- NOTE | 2016-11-14 18:25 | RADRPT ---
EXAM DATE/TIME: 11/14/2016 17:44 [facility] COMPARISON: CT PULMONARY ANGIOGRAM, August 20, 2015, 16:15. INDICATIONS : Chest pain today. IV CONTRAST: 70 cc Omnipaque 350 (iohexol) IV RADIATION DOSE: 4.32 CTDIvol (mGy) MEDICAL HISTORY : Stroke. Seizures. HIV. SURGICAL HISTORY : None. ENCOUNTER: Subsequent ACUITY: 1 day PAIN SCALE: 7/10 LOCATION: Bilateral chest TECHNIQUE: Volumetric scanning of the chest was performed using a pulmonary embolism protocol MIP images were re constructed. Using automated exposure control and adjustment of the mA and/or kV according to patien t size, radiation dose was kept as low as reasonably achievable to obtain optimal diagnostic quality images. FINDINGS: The contrast timing is mixed and there is contrast present in the aorta, pulmonary arteries, and pulm onary veins. The degree of opacification the pulmonary veins is greater than the pulmonary arteries. PULMONARY ARTERIES: No filling defects are seen in the pulmonary arteries through the segmental level. LUNGS: There is consolidation with air bronchograms involving most of the left lower lobe and subsegmental c onsolidation with some air bronchograms in the dependent right lower lobe.PLEURAE: Bilateral pleural effusions measuring 1.7 cm on the left and 1.4 cm on the right. MEDIASTINUM: There is good visualization of the great vessels of the middle mediastinum. No evidence of mediastin al or hilar adenopathy/mass. CONCLUSION: 1. The study is negative for pulmonary embolism. 2. Bilateral lower lobe consolidation and bilateral pleural effusions, left more severe than right. Jose Long MD on November 14, 2016 at 18:20 Board Certified Radiologist. This report was verified electronically.
[2016-11-14 19:18] LABS: HEMATOCRIT 22.7 % (35.0-46.0); MEAN CELL VOLUME 94.3 FL (80.0-100.0); MEAN CORPUSCULAR HEMOGLOBIN 31.8 PG (27.0-34.0); MEAN CORPUSCULAR HGB CONC 33.7 % (32.0-36.0); PLATELET COUNT 133 TH/MM3 (150-450); RED BLOOD COUNT 2.41 MIL/MM3 (4.00-5.30); REVIEW FLAG FINAL; WHITE BLOOD COUNT 3.8 TH/MM3 (4.0-11.0)
[2016-11-14] MEDS: ACETAMINOPHEN 325 MG TAB PO PRN (22:02)
[2016-11-14] MEDS: diphenhydrAMINE HCL 25 MG CAP PO PRN (22:03)
[2016-11-15] VITALS (12 sets, daily range): BP systolic 92–114; BP diastolic 66–93; PULSE 4–88; RESP 14–18; TEMP 96.5–98; O2SAT 94–100
[2016-11-15] MEDS: PANTOPRAZOLE SODIUM 40 MG VIAL IV PUSH SCH ×2 (02:20→16:23)
[2016-11-15] MEDS: diphenhydrAMINE HCL 25 MG CAP PO PRN (02:20)
[2016-11-15] MEDS: ACETAMINOPHEN 325 MG TAB PO PRN (02:20)
[2016-11-15] MEDS: SODIUM CHLOR 0.45% 1000 ML INJ 1,000 ML IV SCH ×2 (06:49→20:53)
--- NOTE | 2016-11-15 07:13 | HHI.PR ---
Subjective Remarks Patient in bed. Says she doesn't have chest pain. Feel sbelly is distended, some diffuse pain. Had nausea did not vomit. No fever or chills overnight. Objective Vitals Vital Signs Date Time Temp Pulse Resp B/P Pulse Ox O2 Delivery O2 Flow Rate FiO2 11/15/16 05:16 96.5 77 18 111/81 100 11/15/16 02:45 97.5 83 18 103/77 98 11/15/16 02:28 98.0 88 18 106/78 98 11/14/16 23:15 97.5 85 18 115/81 96 11/14/16 22:57 97.3 90 16 115/76 100 11/14/16 20:00 93 11/14/16 20:00 97.8 88 16 118/83 97 11/14/16 15:50 98.3 97 20 106/74 98 11/14/16 11:50 97.1 84 20 109/82 100 11/14/16 07:50 97.3 88 20 98/71 100 I/O 11/14/16 11/14/16 11/14/16 11/15/16 11/15/16 11/15/16 07:00 15:00 23:00 07:00 15:00 23:00 Intake Total 240 ml 714 ml 1243 ml 740 ml Output Total 200 ml 250 ml 200 ml Balance 40 ml 714 ml 993 ml 540 ml Intake Oral 240 ml 714 ml 480 ml IV Total 763 ml 740 ml Output Urine Total 200 ml 250 ml 200 ml # Voids 3 # Bowel Movements 1 0 Result Diagram: 11/14/16 1900 11/14/16 0621 Imaging Last Impressions Cyst Biopsy Asp-Paracentesis US 11/15/16 0000 Signed Impressions: Service Date/Time: Tuesday, November 15, 2016 08:47 - CONCLUSION: Uncomplicated ultrasound guided paracentesis. Grant Villasenor MD CT Angiography 11/14/16 0000 Signed Impressions: Service Date/Time: Monday, November 14, 2016 17:44 - CONCLUSION: 1. The study is negative for pulmonary embolism. 2. Bilateral lower lobe consolidation and bilateral pleural effusions, left more severe than right. Jose Long MD Brain MRI 11/14/16 0000 Signed Impressions: Service Date/Time: Monday, November 14, 2016 17:17 - CONCLUSION: No acute findings in the brain. Lacunar infarcts in the jered, unchanged from 2013. Jose Long MD Abdomen/Pelvis CT 11/14/16 0000 Signed Impressions: Service Date/Time: Monday, November 14, 2016 08:14 - CONCLUSION: 1. Cirrhotic liver with a large amount of ascites. There are varices in the left upper quadrant around the spleen. 2. Mild bilateral pleural effusions with accompanying atelectasis or consolidation at the lung bases. 3. Small nodule seen in the right middle lobe region on the first image obtained. This was present on a prior CTA from 08/20/2015. Nelson Pinon MD Abdomen X-Ray 11/12/16 0729 Signed Impressions: Service Date/Time: Saturday, November 12, 2016 07:53 - CONCLUSION: Small bowel ileus without evidence of pathologic distention. No evidence of free air or significant mass effect.. Yaya Guzman MD Objective Remarks GENERAL: This is a cachectic appearing, very thin patient, in no apparent distress. SKIN: No rashes, ecchymoses or lesions. Cool and dry. Nursing indicated the presence of generalized scabies, but this was not readily apparent. HEAD: Bitemporal sunken,muscle waiting. Atraumatic. Normocephalic. No temporal or scalp tenderness. EYES: Pupils equal round and reactive. Extraocular motions intact. No scleral icterus. No injection or drainage. ENT: Nose without bleeding, purulent drainage or septal hematoma. Throat without erythema, tonsillar hypertrophy. Tara noted on tongue. Uvula midline. Airway patent. NECK: Trachea midline. No JVD or lymphadenopathy. Supple, nontender, no meningeal signs. CARDIOVASCULAR: Regular rate and rhythm without murmurs, gallops, or rubs. RESPIRATORY: Clear to auscultation. Breath sounds equal bilaterally. No wheezes , rales, or rhonchi. GASTROINTESTINAL: Abdomen is distended, nontender, +BS x4Q . No guarding. Dullness heard upon palpation. MUSCULOSKELETAL: Weak ship scraper. Muscle waisting. Extremities without clubbing, cyanosis, or edema. No joint tenderness, effusion, or edema noted. No calf tenderness. Negative Homans sign bilaterally. Muscle tone and mass is noted to be decreased. NEUROLOGICAL: Awake, alert and oriented x3. Cranial nerves II through XII intact. Motor and sensory grossly within normal limits. Five out of 5 muscle strength in all muscle groups. Normal speech. A/P Assessment and Plan Severe symptomatic Hypocalcemia Severe symptomatic Hypokalemia Received Ca gluconate in the ED and KCL IV Give another Ca gluconate IV 11/14 Repeat BMP Replenish electrolytes. HIV positive. 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 On fluconazole and magic wash as above NSTEMI \. Elevated troponin. Patient c/o chest pain 11/13 at night. Troponin trending up. Cardiology consulted. I discussed with Dr Chet Jerry cardiology . Patient decided for medical management and non invasive procedures. Patient also with elevated Ddimer, CTA to r/o PE is negative. 2D ECHO pending Normocytic anemia, noted HGB drop to 7.6 and elevated troponin 11/14 to decreased the demand on heart. 11/14 transfuse 2 U PRBC . H/H stable after transfusion. - Follow CBC Hypoalbuminemia -follow trend with labs Protein calorie malnutrition, cachectic, muscle waisting, low albumin.Will check prealbumin. Add ensure. Will consult transformation lead. Discussed with the patient and the nurse. Kassidy Terry MD Nov 15, 2016 07:13
[2016-11-15] MEDS: CALCIUM CARBONATE 500 MG CHEWABLE TAB CHEW SCH ×2 (08:54→20:53)
[2016-11-15] MEDS: SODIUM CHLORIDE 0.9% FLUSH 10 ML FLUSH IV FLUSH SCH ×2 (08:54→20:55)
[2016-11-15] MEDS: ASPIRIN 81 MG CHEW TAB CHEW SCH (08:54)
[2016-11-15] MEDS: FUROSEMIDE 20 MG/2 ML VIAL IV PUSH SCH (08:54)
[2016-11-15] MEDS: NYSTAT/DIPHENHY/LIDO MOUTHWASH (Adult) 120ML SWISH-SWAL SCH ×4 (08:55→20:53)
[2016-11-15 09:34] LABS: HEMATOCRIT 37.6 % (35.0-46.0); MEAN CELL VOLUME 90.7 FL (80.0-100.0); MEAN CORPUSCULAR HEMOGLOBIN 31.7 PG (27.0-34.0); PLATELET COUNT 106 TH/MM3 (150-450); RED BLOOD COUNT 4.15 MIL/MM3 (4.00-5.30); RED CELL DISTRIBUTION WIDTH 17.4 % (11.6-17.2); WHITE BLOOD COUNT 5.2 TH/MM3 (4.0-11.0)
[2016-11-15 09:35] LABS: INTERNATIONAL NORMALIZED RATIO 1.4 RATIO; PROTHROMBIN TIME - PATIENT 16.2 SEC (9.8-11.6)
[2016-11-15 09:39] LABS: HEMO FLAGS AUTO DIFF
[2016-11-15 09:59] LABS: BICARBONATE 24.7 MEQ/L (21.0-32.0); POTASSIUM 4.2 MEQ/L (3.5-5.1)
[2016-11-15 10:15] LABS: BANDS 2 % (0-6); CORRECTED NUCLEATED RBC 1 /100 WBC (0-0); METAMYELOCYTES 1 % (0-1); NEUTROPHIL # MANUAL DIFF 4.9 TH/MM3 (1.8-7.7); PLATELET ESTIMATE SMEAR LOW (NORMAL); PLATELET MORPHOLOGY NORMAL (NORMAL); POLYS (SEG NEUTROPHILS) 91 % (16-70); WBC DIFF SAMPLE 100
[2016-11-15 10:16] LABS: OVALOCYTES 1+ (NORMAL); SCAN/DIFF FINAL DIFF MANUAL
--- NOTE | 2016-11-15 12:01 | PD.CARD.PN ---
Subjective Subjective Remarks Awaiting paracentesis, no chest pain over night, no shortness of breath, feels like she can swallow food now Objective Medications Current Medications Medications (Trade) Dose Ordered Sig/Sue Route Start Time Stop Time Status Last Admin (NS Flush) 2 ml UNSCH PRN IV FLUSH 11/12/16 11:45 (NS Flush) 2 ml BID IV FLUSH 11/12/16 21:00 11/15/16 08:54 (Tylenol) 650 mg Q4H PRN PO 11/12/16 11:45 11/13/16 22:39 (Zofran Inj) 4 mg Q6H PRN IVP 11/12/16 11:45 (Colace) 100 mg Q12H PO 11/12/16 12:00 11/13/16 22:38 (Milk Of Magnesia Liq) 30 ml Q12H PRN PO 11/12/16 11:45 Enoxaparin Sodium 40 mg 40 mg Q24H SQ 11/12/16 12:00 11/14/16 13:21 (Diflucan 100 Mg Premix Bag) 50 ml @ 50 mls/hr Q24H IV 11/12/16 14:45 11/14/16 13:20 (Magic Mouthwash Adult Liq) 5 ml QID SWISH-SWAL 11/12/16 18:00 11/15/16 08:55 (Tums Chew) 500 mg Q12HR CHEW 11/13/16 12:00 11/15/16 08:54 (Protonix Inj) 40 mg Q12H IV PUSH 11/13/16 16:15 11/15/16 02:20 (Morphine Inj) 2 mg Q3H PRN IV PUSH 11/14/16 08:15 Aspirin 81 mg 81 mg DAILY CHEW 11/15/16 09:00 11/15/16 08:54 (1/2 NS 1000 ml Inj) 1,000 ml @ 60 mls/hr [id number] IV 11/14/16 14:15 11/15/16 06:49 (Lasix Inj) 20 mg DAILY IV PUSH 11/15/16 09:00 11/15/16 08:54 Vital Signs / I&O Vital Signs Date Time Temp Pulse Resp B/P Pulse Ox O2 Delivery O2 Flow Rate FiO2 11/15/16 10:21 96.9 73 18 114/93 100 11/15/16 08:00 96.7 78 18 102/75 94 11/15/16 05:16 96.5 77 18 111/81 100 11/15/16 02:45 97.5 83 18 103/77 98 11/15/16 02:28 98.0 88 18 106/78 98 11/14/16 23:15 97.5 85 18 115/81 96 11/14/16 22:57 97.3 90 16 115/76 100 11/14/16 20:00 93 11/14/16 20:00 97.8 88 16 118/83 97 11/14/16 15:50 98.3 97 20 106/74 98 I/O 11/14/16 11/14/16 11/14/16 11/15/16 11/15/16 11/15/16 07:00 15:00 23:00 07:00 15:00 23:00 Intake Total 240 ml 714 ml 1243 ml 740 ml Output Total 200 ml 250 ml 200 ml Balance 40 ml 714 ml 993 ml 540 ml Intake Oral 240 ml 714 ml 480 ml IV Total 763 ml 740 ml Output Urine Total 200 ml 250 ml 200 ml # Voids 3 # Bowel Movements 1 0 Physical Exam GENERAL: NAD, AAOx3 SKIN: Warm and dry. HEAD: Atraumatic. Normocephalic. EYES: Pupils equal and round. No scleral icterus. No injection or drainage. ENT: No nasal bleeding or discharge. Mucous membranes pink and moist. NECK: Trachea midline. No JVD. CARDIOVASCULAR: Regular rate and rhythm. 1/6 holosystolic murmur at the apex RESPIRATORY: No accessory muscle use. Decreased breath sounds bilaterally, no noted rales GASTROINTESTINAL: Abdomen is distended with a fluid wave, non-tender MUSCULOSKELETAL: Extremities without clubbing, cyanosis, or edema. No obvious deformities. NEUROLOGICAL: Awake and alert. No obvious cranial nerve deficits. Motor grossly within normal limits. Five out of 5 muscle strength in the arms and legs. Normal speech. PSYCHIATRIC: Appropriate mood and affect; insight and judgment normal. Laboratory Laboratory Tests Test 11/14/16 11/14/16 11/14/16 11/15/16 15:40 19:00 20:55 08:39 Prothrombin Time 16.9 SEC 16.2 SEC Prothromb Time International 1.5 RATIO 1.4 RATIO Ratio D-Dimer Quantitative (PE/DVT) 2.95 MG/L FEU Total Creatine Kinase 215 U/L Creatine Kinase MB 4.1 NG/ML Creatine Kinase MB % 1.9 % Troponin I 1.78 NG/ML Prealbumin LESS THAN 3 MG/DL White Blood Count 3.8 TH/MM3 5.2 TH/MM3 Red Blood Count 2.41 MIL/MM3 4.15 MIL/MM3 Hemoglobin 7.6 GM/DL 13.1 GM/DL Hematocrit 22.7 % 37.6 % Mean Corpuscular Volume 94.3 FL 90.7 FL Mean Corpuscular Hemoglobin 31.8 PG 31.7 PG Mean Corpuscular Hemoglobin 33.7 % 35.0 % Concent Red Cell Distribution Width 18.0 % 17.4 % Platelet Count 133 TH/MM3 106 TH/MM3 Mean Platelet Volume 9.5 FL 9.0 FL Blood Type A POSITIVE A POSITIVE Antibody Screen NEGATIVE Crossmatch Leukocyte-Reduced Red Blood Cells Blood Bank Comment Neutrophils (%) (Auto) % Lymphocytes (%) (Auto) % Monocytes (%) (Auto) % Eosinophils (%) (Auto) % Basophils (%) (Auto) % Neutrophils # (Auto) TH/MM3 Lymphocytes # (Auto) TH/MM3 Monocytes # (Auto) TH/MM3 Eosinophils # (Auto) TH/MM3 Basophils # (Auto) TH/MM3 CBC Comment AUTO DIFF Differential Total Cells 100 Counted Neutrophils % (Manual) 91 % Band Neutrophils % 2 % Lymphocytes % 2 % Monocytes % 4 % Neutrophils # (Manual) 4.9 TH/MM3 Metamyelocytes 1 % Nucleated Red Blood Cells 1 /100 WBC Differential Comment FINAL DIFF MANUAL Platelet Estimate LOW Platelet Morphology Comment NORMAL Ovalocytes 1+ Sodium Level 138 MEQ/L Potassium Level 4.2 MEQ/L Chloride Level 107 MEQ/L Carbon Dioxide Level 24.7 MEQ/L Anion Gap 6 MEQ/L Blood Urea Nitrogen 8 MG/DL Creatinine 0.86 MG/DL Estimat Glomerular Filtration 84 ML/MIN Rate Random Glucose 56 MG/DL Calcium Level 7.5 MG/DL Assessment and Plan Problem List: (1) Elevated troponin (2) Ascites (3) Abdominal distension (4) HIV (human immunodeficiency virus infection) (5) Severe protein-calorie malnutrition (6) Abdominal pain (7) Transaminitis Assessment and Plan 1) Elevated troponin possible Type 1 vs 2, possibly due to fluid overload state with pleural effusions, secondary to hypoalbumemia 2) Continue with diuresis 3) ASA 4) Await 2D echo to look at overall LV function 5) Elevated cardiovascular risk for any procedure, although EGD/C-scope is overall a low risk procedure... would wait for echo to further risk stratify Davy Dixon DO Nov 15, 2016 12:01
[2016-11-15] MEDS: DOCUSATE SODIUM 100 MG CAP PO SCH (12:56)
[2016-11-15] MEDS: ENOXAPARIN SODIUM 40 MG/0.4 ML SYRINGE SQ SCH (12:58)
[2016-11-15] MEDS ORDERED: ALBUMIN HUMAN 25% 25GM-W/12.5GM FOR 37.5GM IV ONE (13:15)
[2016-11-15] MEDS ORDERED: ALBUMIN HUMAN 25% 12.5GM-W/25GM FOR 37.5GM IV ONE (13:15)
[2016-11-15 13:56] LABS: PERITONEAL HISTIOCYTES 39 %; PERITONEAL LYMPHS 25 %; PERITONEAL MONOS 8 %; PERITONEAL POLYS(SEGS) 28 %; PERITONEAL WBC 17 /MM3 (0-10)
--- NOTE | 2016-11-15 14:20 | EKG ---
Date Performed: 11/14/2016 Time Performed: 13:45:24 PTAGE: 51 years EKG: Sinus rhythm NORMAL ECG Compared to prior tracing no significant change PREVIOUS TRACING : 11/14/2016 07.31 DOCTOR: Homar Masterson Interpretating Date/Time 11/15/2016 14:19:10
--- NOTE | 2016-11-15 15:08 | HHI.IDPN ---
Subjective Subjective Remarks Notes reviewed Had abdominal tap today No evidence of SBP Brain MRI no evidence of PML Antibiotics Diflucan Lines PIV Past Medical History HIV GI bleeds CVA Ascites, cirrhosis GIB Past Surgical History Exploratory laparotomy Ectopic . Allergies: Coded Allergies: No Known Allergies (Verified , 11/12/16) Objective . Vital Signs Date Time Temp Pulse Resp B/P Pulse Ox O2 Delivery O2 Flow Rate FiO2 11/15/16 12:30 96.7 68 16 103/73 95 11/15/16 12:09 97.0 73 14 102/66 100 11/15/16 11:54 97.0 68 14 109/71 94 11/15/16 10:21 96.9 73 18 114/93 100 11/15/16 08:00 96.7 78 18 102/75 94 11/15/16 05:16 96.5 77 18 111/81 100 11/15/16 02:45 97.5 83 18 103/77 98 11/15/16 02:28 98.0 88 18 106/78 98 11/14/16 23:15 97.5 85 18 115/81 96 11/14/16 22:57 97.3 90 16 115/76 100 11/14/16 20:00 93 11/14/16 20:00 97.8 88 16 118/83 97 11/14/16 15:50 98.3 97 20 106/74 98 11/14/16 11/14/16 11/15/16 15:00 23:00 07:00 Intake Total 714 ml 1243 ml 740 ml Output Total 250 ml 200 ml Balance 714 ml 993 ml 540 ml Intake Oral 714 ml 480 ml IV Total 763 ml 740 ml Output Urine Total 250 ml 200 ml # Voids 3 # Bowel Movements 0 . Laboratory Tests Test 11/14/16 11/14/16 11/15/16 06:21 19:00 08:39 White Blood Count 4.9 TH/MM3 3.8 TH/MM3 5.2 TH/MM3 Red Blood Count 2.29 MIL/MM3 2.41 MIL/MM3 4.15 MIL/MM3 Hemoglobin 7.2 GM/DL 7.6 GM/DL 13.1 GM/DL Hematocrit 21.8 % 22.7 % 37.6 % Mean Corpuscular Volume 95.0 FL 94.3 FL 90.7 FL Mean Corpuscular Hemoglobin 31.3 PG 31.8 PG 31.7 PG Mean Corpuscular Hemoglobin 32.9 % 33.7 % 35.0 % Concent Red Cell Distribution Width 18.0 % 18.0 % 17.4 % Platelet Count 116 TH/MM3 133 TH/MM3 106 TH/MM3 Mean Platelet Volume 9.3 FL 9.5 FL 9.0 FL Neutrophils (%) (Auto) % % Lymphocytes (%) (Auto) % % Monocytes (%) (Auto) % % Eosinophils (%) (Auto) % % Basophils (%) (Auto) % % Neutrophils # (Auto) TH/MM3 TH/MM3 Lymphocytes # (Auto) TH/MM3 TH/MM3 Monocytes # (Auto) TH/MM3 TH/MM3 Eosinophils # (Auto) TH/MM3 TH/MM3 Basophils # (Auto) TH/MM3 TH/MM3 CBC Comment AUTO DIFF AUTO DIFF Differential Total Cells 100 100 Counted Neutrophils % (Manual) 91 % 91 % Band Neutrophils % 1 % 2 % Lymphocytes % 2 % 2 % Monocytes % 5 % 4 % Eosinophils % 1 % Neutrophils # (Manual) 4.5 TH/MM3 4.9 TH/MM3 Differential Comment FINAL DIFF FINAL DIFF MANUAL MANUAL Platelet Estimate LOW LOW Platelet Morphology Comment NORMAL NORMAL Ovalocytes 1+ 1+ Acanthocytes OCC Keratocytes OCC Metamyelocytes 1 % Nucleated Red Blood Cells 1 /100 WBC Laboratory Tests Test 11/14/16 11/14/16 11/14/16 11/15/16 01:27 06:21 15:40 08:39 Sodium Level 140 MEQ/L 141 MEQ/L 138 MEQ/L Potassium Level 3.8 MEQ/L 3.6 MEQ/L 4.2 MEQ/L Chloride Level 108 MEQ/L 109 MEQ/L 107 MEQ/L Carbon Dioxide Level 23.5 MEQ/L 24.5 MEQ/L 24.7 MEQ/L Anion Gap 9 MEQ/L 8 MEQ/L 6 MEQ/L Blood Urea Nitrogen 8 MG/DL 7 MG/DL 8 MG/DL Creatinine 0.86 MG/DL 0.86 MG/DL 0.86 MG/DL Estimat Glomerular Filtration 84 ML/MIN 84 ML/MIN 84 ML/MIN Rate Random Glucose 72 MG/DL 85 MG/DL 56 MG/DL Calcium Level 7.0 MG/DL 7.3 MG/DL 7.5 MG/DL Protein Corrected Calcium 7.3 MG/DL 7.8 MG/DL Troponin I 0.09 NG/ML 1.39 NG/ML 1.78 NG/ML Total Protein 6.5 GM/DL 6.1 GM/DL Phosphorus Level 3.7 MG/DL Magnesium Level 1.9 MG/DL Total Bilirubin 0.9 MG/DL Direct Bilirubin 0.6 MG/DL Indirect Bilirubin 0.3 MG/DL Aspartate Amino Transf 40 U/L (AST/SGOT) Alanine Aminotransferase 11 U/L (ALT/SGPT) Alkaline Phosphatase 128 U/L Total Creatine Kinase 234 U/L 215 U/L Creatine Kinase MB 3.3 NG/ML 4.1 NG/ML Creatine Kinase MB % 1.4 % 1.9 % Albumin 0.8 GM/DL Prealbumin LESS THAN 3 MG/DL Test 11/15/16 11:05 Total Protein 1.0 GM/DL Microbiology Date/Time Procedure Status Source Growth 11/15/16 11:05 Gram Stain Received Fluid Peritoneal Fluid Pending 11/15/16 11:05 Body Fluid Culture Received Fluid Peritoneal Fluid Pending Imaging Last Impressions Abdomen/Pelvis CT 11/14/16 0000 Signed Impressions: Service Date/Time: Monday, November 14, 2016 08:14 - CONCLUSION: 1. Cirrhotic liver with a large amount of ascites. There are varices in the left upper quadrant around the spleen. 2. Mild bilateral pleural effusions with accompanying atelectasis or consolidation at the lung bases. 3. Small nodule seen in the right middle lobe region on the first image obtained. This was present on a prior CTA from 08/20/2015. Nelson Pinon MD Abdomen X-Ray 11/12/16 0729 Signed Impressions: Service Date/Time: Saturday, November 12, 2016 07:53 - CONCLUSION: Small bowel ileus without evidence of pathologic distention. No evidence of free air or significant mass effect.. Yaya Guzman MD Physical Exam GENERAL:Cachectic, awake and alert, NAD SKIN: Cool and dry. Has papular pruritic rash in UE and truck, also between her fingers HEENT: [place] conjunctiva. No scleral icterus. No injection or drainage. ENT: Nose without bleeding, pr purulent drainage. She is edentulous, moist mucosa, no thrush. Throat without erythema, or exudate. White coating tongue. NECK: Trachea midline. No JVD. Supple, nontender, no meningeal signs. CARDIOVASCULAR: Regular rate and rhythm without murmurs, gallops, or rubs. RESPIRATORY: Clear to auscultation. Breath sounds equal bilaterally. No wheezes , rales, or rhonchi. GASTROINTESTINAL: Abdomen is less distended, bowel sounds present and hypoactive , with mild diffuse tenderness. No rebound MUSCULOSKELETAL: Extremities without clubbing, cyanosis, or edema. No joint effusion, good ROM. No calf tenderness. 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
--- NOTE | 2016-11-15 15:14 | RADRPT ---
EXAM DATE/TIME: 11/15/2016 08:47 [facility] COMPARISON: No previous studies available for comparison. INDICATIONS : Ascites. MEDICAL HISTORY : Seizures. Cirrhosis. Cerebrovascular accident. Liver disease. HIV. Ectopic . Substance abuse . SURGICAL HISTORY : section. Exploratory laparotomy. ENCOUNTER: Subsequent ACUITY: 2 weeks PAIN SCORE: 0/10 LOCATION: Left lower quadrant FLUID: Total volume of 5,300 cc of clear, yellow fluid was removed. Fluid was sent to lab for ordered studies. Post procedure scanning reveals no hematoma or other complication. TECHNIQUE: 1. Ultrasound guidance for abdominal paracentesis. 2. Paracentesis. The risks, benefits, and alternatives to ultrasound guided paracentesis were explained to the patient in detail including the risk of bleeding and infection. Written and verbal informed consent was obt ained. With the patient on the ultrasound table, ultrasound imaging was used to select the most appropriate approach for paracentesis. Overlying skin was prepped and draped in the usual sterile fashion and wi th a local anesthetic, a dermatotomy was made with an 11 blade scalpel. A 6 [id number] ca theter was introduced into the peritoneal cavity and fluid was collected. The patient tolerated the procedure well and left the ultrasound suite in stable condition. CONCLUSION: Uncomplicated ultrasound guided paracentesis. Grant Villasenor MD on November 15, 2016 at 15:12 Board Certified Radiologist. This report was verified electronically.
[2016-11-15] MEDS: FLUCONAZOLE 100 MG PREMIX BAG 50 ML IV SCH (16:23)
--- NOTE | 2016-11-15 21:03 | EC ---
Study Study Date:11/15/2016 STUDY CONCLUSIONS SUMMARY - Left ventricle: The cavity size was normal. Wall thickness was normal. Mild basal septal hypertrophy. Systolic function was normal. The estimated ejection fraction was 60%. Wall motion was normal; there were no regional wall motion abnormalities. - Mitral valve: Mild regurgitation. - Tricuspid valve: Mild regurgitation. - Pulmonary arteries: PA peak pressure: 34mm Hg (S). If LV function is below 40, please consider prescribing an ACEI or ARB or document rationale for non-use. PROCEDURE DATA STUDY STATUS: Elective. Procedure: Transthoracic echocardiography. Image quality was good. Scanning was performed from the parasternal, apical, and subcostal acoustic windows. Study completion: The patient tolerated the procedure well. Transthoracic echocardiography. M-mode, complete 2D, complete spectral Doppler, and color Doppler. Patient status: Inpatient. CARDIAC ANATOMY LEFT VENTRICLE: The cavity size was normal. Wall thickness was normal. Mild basal septal hypertrophy. Systolic function was normal. The estimated ejection fraction was 60%. Wall motion was normal; there were no regional wall motion abnormalities. AORTIC VALVE: Trileaflet; normal thickness leaflets. Doppler: Transvalvular velocity was within the normal range. There was no stenosis. No regurgitation. AORTA: Aortic root: The aortic root was normal in size. MITRAL VALVE: Structurally normal valve. Doppler: Transvalvular velocity was within the normal range. There was no evidence for stenosis. Mild regurgitation. LEFT ATRIUM: The atrium was normal in size. RIGHT VENTRICLE: The cavity size was normal. Wall thickness was normal. PULMONIC VALVE: Doppler: Transvalvular velocity was within the normal range. There was no evidence for stenosis. No regurgitation. TRICUSPID VALVE: Structurally normal valve. Doppler: Transvalvular velocity was within the normal range. Mild regurgitation. PULMONARY ARTERY: The main pulmonary artery was normal-sized. Systolic pressure was within the normal range. RIGHT ATRIUM: The atrium was normal in size. PERICARDIUM: There was no pericardial effusion. SYSTEMIC VEINS: Inferior vena cava: The vessel was normal in size. BASIC MEASUREMENTS ADULT Normal Left ventricle LV internal dimension, ED, chordal level, *37.5 mm 43-52 PLAX LV internal dimension, ES, chordal level, 27.5 mm 23-38 PLAX Fractional shortening, chordal level, PLAX *27 % >29 LV posterior wall thickness, ED 10.3 mm IVS/LVPW ratio, ED 0.91 <1.3 Ventricular septum Septal thickness, ED 9.38 mm Aortic valve Leaflet separation 18 mm 15-26 Right ventricle RV internal dimension, ED, PLAX 19.2 mm 19-38 BASIC MEASUREMENTS ADULT Normal Aortic valve Leaflet separation 18 mm 15-26 Aorta Root diameter, ED 24 mm 20-37 Left atrium Anterior-posterior dimension, ES 40 mm 19-40 LA/aortic root ratio 1.67 DOPPLER MEASUREMENTS ADULT Normal Main pulmonary artery Pressure, S *34 mm Hg =30 Tricuspid valve Regurgitant peak velocity 246 cm/s Peak RV-RA gradient, S 24 mm Hg Maximal regurgitant velocity 246 cm/s Systemic veins Estimated CVP 10 mm Hg Right ventricle RV pressure, S *34 mm Hg <30 LEGEND: Mean values are shown as u=mean value. Asterisk (*) soto values outside specified normal range. Prepared and signed by Saji Snider [id number]
--- NOTE | 2016-11-15 21:11 | HHI.GIFU ---
Subjective Remarks Patient comfortable in bed denies any nausea vomiting abdominal pain or diarrhea feeling quite good today states that she eats well and she has her teeth in Objective Vitals I&O Vital Signs Date Time Temp Pulse Resp B/P Pulse Ox O2 Delivery O2 Flow Rate FiO2 11/15/16 20:45 97.0 81 16 102/72 99 11/15/16 16:00 96.5 78 16 92/69 100 11/15/16 16:00 96.5 78 16 92/69 100 11/15/16 15:00 4 11/15/16 12:30 96.7 68 16 103/73 95 11/15/16 12:09 97.0 73 14 102/66 100 11/15/16 11:54 97.0 68 14 109/71 94 11/15/16 10:21 96.9 73 18 114/93 100 11/15/16 08:00 96.7 78 18 102/75 94 11/15/16 08:00 76 11/15/16 05:16 96.5 77 18 111/81 100 11/15/16 02:45 97.5 83 18 103/77 98 11/15/16 02:28 98.0 88 18 106/78 98 11/14/16 23:15 97.5 85 18 115/81 96 11/14/16 22:57 97.3 90 16 115/76 100 I/O 11/14/16 11/14/16 11/14/16 11/15/16 11/15/16 11/15/16 07:00 15:00 23:00 07:00 15:00 23:00 Intake Total 240 ml 714 ml 1243 ml 740 ml 480 ml Output Total 200 ml 250 ml 200 ml Balance 40 ml 714 ml 993 ml 540 ml 480 ml Intake Oral 240 ml 714 ml 480 ml 480 ml IV Total 763 ml 740 ml Output Urine Total 200 ml 250 ml 200 ml # Voids 3 3 # Bowel Movements 1 0 Laboratory Laboratory Tests Test 11/15/16 11/15/16 08:39 11:05 White Blood Count 5.2 Red Blood Count 4.15 Hemoglobin 13.1 Hematocrit 37.6 Mean Corpuscular Volume 90.7 Mean Corpuscular Hemoglobin 31.7 Mean Corpuscular Hemoglobin 35.0 Concent Red Cell Distribution Width 17.4 Platelet Count 106 Mean Platelet Volume 9.0 Neutrophils (%) (Auto) Lymphocytes (%) (Auto) Monocytes (%) (Auto) Eosinophils (%) (Auto) Basophils (%) (Auto) Neutrophils # (Auto) Lymphocytes # (Auto) Monocytes # (Auto) Eosinophils # (Auto) Basophils # (Auto) CBC Comment AUTO DIFF Differential Total Cells 100 Counted Neutrophils % (Manual) 91 Band Neutrophils % 2 Lymphocytes % 2 Monocytes % 4 Neutrophils # (Manual) 4.9 Metamyelocytes 1 Nucleated Red Blood Cells 1 Differential Comment FINAL DIFF MANUAL Platelet Estimate LOW Platelet Morphology Comment NORMAL Ovalocytes 1+ Prothrombin Time 16.2 Prothromb Time International 1.4 Ratio Sodium Level 138 Potassium Level 4.2 Chloride Level 107 Carbon Dioxide Level 24.7 Anion Gap 6 Blood Urea Nitrogen 8 Creatinine 0.86 Estimat Glomerular Filtration 84 Rate Random Glucose 56 Calcium Level 7.5 Peritoneal Fluid WBC 17 Peritoneal Fluid RBC 42 Peritoneal Fluid Neutrophils 28 Peritoneal Fluid Lymphocytes 25 Peritoneal Fluid Monocytes 8 Peritoneal Fluid Histiocytes 39 Peritoneal Fluid Total Protein 1.0 Peritoneal Fluid Albumin 0.2 Peritoneal Fluid LDH 49 Peritoneal Fluid Glucose 83 Peritoneal Fluid Amylase 38 Total Protein 1.0 Date/Time Procedure Status Source Growth 11/15/16 11:05 Gram Stain Received Fluid Peritoneal Fluid Pending 11/15/16 11:05 Body Fluid Culture Received Fluid Peritoneal Fluid Pending Imaging Last 48 hours Impressions Cyst Biopsy Asp-Paracentesis US 11/15/16 0000 Signed Impressions: Service Date/Time: Tuesday, November 15, 2016 08:47 - CONCLUSION: Uncomplicated ultrasound guided paracentesis. Grant Villasenor MD CT Angiography 11/14/16 0000 Signed Impressions: Service Date/Time: Monday, November 14, 2016 17:44 - CONCLUSION: 1. The study is negative for pulmonary embolism. 2. Bilateral lower lobe consolidation and bilateral pleural effusions, left more severe than right. Jose Long MD Brain MRI 11/14/16 0000 Signed Impressions: Service Date/Time: Monday, November 14, 2016 17:17 - CONCLUSION: No acute findings in the brain. Lacunar infarcts in the jered, unchanged from 2013. Jose Long MD Abdomen/Pelvis CT 11/14/16 0000 Signed Impressions: Service Date/Time: Monday, November 14, 2016 08:14 - CONCLUSION: 1. Cirrhotic liver with a large amount of ascites. There are varices in the left upper quadrant around the spleen. 2. Mild bilateral pleural effusions with accompanying atelectasis or consolidation at the lung bases. 3. Small nodule seen in the right middle lobe region on the first image obtained. This was present on a prior CTA from 08/20/2015. Nelson Pinon MD Physical Exam GENERAL: Thin ill appearing female in NAD NECK: Neck is supple CHEST: CTA CARDIAC: Regular ABDOMEN: +BS, firm, mildly distended, mildly tender. EXTREMITIES: No clubbing, cyanosis, or edema. 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 Assessment and Plan Plan ASSESSMENT: - Abdominal pain. Abdomen X-Ray (11/12/16)----> Small bowel ileus without evidence of pathologic distention. No evidence of free air or significant mass effect. Last EGD/Colonoscopy (01/05/16)---> normal duodenum , gastritis in the antrum, stricture/Schatzki's ring distal esophagus status post dilatation 14 savory guidewire, hiatal hernia, 2 diminutive polyps in cecum 5 mm and 6 mm each, cold biopsy with complete removal, 2 polyps at hepatic flexure 6 mm each cold biopsy with complete removal, no normal colon otherwise random biopsies of the ascending and descending colon, medium internal hemorrhoids, decreased sphincter tone. Pathology with small intestinal mucosa without significant histopathologic abnormality, severe chronic gastritis, negative for Helicobacter pylori, hepatic flexure adenomatous polyp, ascending colonic mucosa without significant histopathologic abnormality, adenomatous polyp cecum, descending colon with colonic mucosa without significant histopathologic abnormality. CT Abd/pelvis (11/14) --> Cirrhotic liver with a large amount of ascites. There are varices in the left upper quadrant around the spleen. Mild bilateral pleural effusions with accompanying atelectasis or consolidation at the lung bases. Small nodule seen in the right middle lobe region on the first image obtained. This was present on a prior CTA from 08/20/2015. PPI - Dysphagia. Does have hx of strictures/Schatzki's ring, has oral thrush. Diflucan, Magic mouthwash. - Elevated troponin and chest pain. Troponin 0.09 --> 1.39 Cardiology is consulted - Elevated LFTs/Liver cirrhosis. CT Abd/pelvis (11/14) --> Cirrhotic liver with a large amount of ascites. There are varices in the left upper quadrant around the spleen. Mild bilateral pleural effusions with accompanying atelectasis or consolidation at the lung bases. Small nodule seen in the right middle lobe region on the first image obtained. This was present on a prior CTA from 08/20/2015. Hepatitis panel, AMA, ASMA, ZAYRA, Ceruloplasmin, [id number] in 07/2016 was negative. Pt with a hx of EtOH abuse. Pts last US guided paracentesis was on 11/01/16 with removal of 2900cc of yellow ascetic fluid. Pt was discharged on Lasix 20mg po BID and Aldactone 25mg po BID after July 2016 admission. - Abn. Wt. Loss, 23 lbs over the past 3 months. - Chronic diarrhea. This has been worked up in the past and thought to be related to retrovirals. - Oral Candidiasis. Diflucan, - Anemia, normocytic. HH 7.2/21.8 - Electrolyte abnormalities. Replacement/correction per primary - HIV, AIDS. ID following. PLAN: - JARAD - Cont. Protonix 40mg IV BID - Resume Lasix 20mg po BID when BP allows vs. repeat paracentesis. Will discuss with Dr. Rodriguez - Plan for EGD once cleared by Cardiology awaiting echocardiogram - Cont. Diflucan - Cont. Magic mouthwash - Monitor labs, lipase - Supportive care - Further recommendations to follow based on results of above Juwan Lacy MD Nov 15, 2016 21:11
[2016-11-16 01:30] VITALS: BP 117/78; PULSE 82; RESP 16; TEMP 97.3
[2016-11-16 05:00] VITALS: BP 96/74; PULSE 92; RESP 16; TEMP 97.9; O2SAT 99
[2016-11-16] MEDS: PANTOPRAZOLE SODIUM 40 MG VIAL IV PUSH SCH ×2 (05:14→15:10)
[2016-11-16 07:28] LABS: AUTOMATED NEUTROPHIL # 5.4 TH/MM3 (1.8-7.7); BASOPHIL % 0.7 % (0.0-2.0); EOSINOPHIL # 0.1 TH/MM3 (0-0.4); HEMATOCRIT 35.9 % (35.0-46.0); HEMO FLAGS DIFF FINAL; LYMPH % 7.8 % (9.0-44.0); LYMPHOCYTE # 0.5 TH/MM3 (1.0-4.8); MEAN CELL VOLUME 92.2 FL (80.0-100.0); MEAN CORPUSCULAR HEMOGLOBIN 31.2 PG (27.0-34.0); MEAN CORPUSCULAR HGB CONC 33.8 % (32.0-36.0); MONO % 7.8 % (0.0-8.0); NEUT % 82.7 % (16.0-70.0); PLATELET COUNT 102 TH/MM3 (150-450); RED BLOOD COUNT 3.89 MIL/MM3 (4.00-5.30); RED CELL DISTRIBUTION WIDTH 17.5 % (11.6-17.2); WHITE BLOOD COUNT 6.5 TH/MM3 (4.0-11.0)
[2016-11-16 08:00] VITALS: BP 110/67; PULSE 102; PULSE 96; RESP 18; TEMP 99.1; O2SAT 96
[2016-11-16 08:03] LABS: BICARBONATE 22.2 MEQ/L (21.0-32.0); MAGNESIUM 2.1 MG/DL (1.5-2.5); POTASSIUM 3.8 MEQ/L (3.5-5.1)
[2016-11-16 08:27] LABS: CALCIUM-PROTEIN CORRECTED 7.7 MG/DL (8.5-10.1)
[2016-11-16] MEDS: NYSTAT/DIPHENHY/LIDO MOUTHWASH (Adult) 120ML SWISH-SWAL SCH ×4 (09:51→20:42)
[2016-11-16] MEDS: CALCIUM CARBONATE 500 MG CHEWABLE TAB CHEW SCH ×2 (09:51→20:42)
[2016-11-16] MEDS: FUROSEMIDE 20 MG/2 ML VIAL IV PUSH SCH (09:52)
[2016-11-16] MEDS: ASPIRIN 81 MG CHEW TAB CHEW SCH (09:52)
[2016-11-16] MEDS: SODIUM CHLORIDE 0.9% FLUSH 10 ML FLUSH IV FLUSH SCH ×2 (09:53→20:42)
[2016-11-16 11:26] VITALS: BP 118/78; PULSE 94; RESP 18; TEMP 97.7; O2SAT 96
--- NOTE | 2016-11-16 11:27 | PD.CARD.PN ---
Subjective Subjective Remarks No chest pain, no shortness of breath Able to eat and drink Objective Medications Current Medications Medications (Trade) Dose Ordered Sig/Sue Route Start Time Stop Time Status Last Admin (NS Flush) 2 ml UNSCH PRN IV FLUSH 11/12/16 11:45 (NS Flush) 2 ml BID IV FLUSH 11/12/16 21:00 11/16/16 09:53 (Tylenol) 650 mg Q4H PRN PO 11/12/16 11:45 11/13/16 22:39 (Zofran Inj) 4 mg Q6H PRN IVP 11/12/16 11:45 (Colace) 100 mg Q12H PO 11/12/16 12:00 11/15/16 12:56 (Milk Of Magnesia Liq) 30 ml Q12H PRN PO 11/12/16 11:45 Enoxaparin Sodium 40 mg 40 mg Q24H SQ 11/12/16 12:00 11/15/16 12:58 (Diflucan 100 Mg Premix Bag) 50 ml @ 50 mls/hr Q24H IV 11/12/16 14:45 11/15/16 16:23 (Magic Mouthwash Adult Liq) 5 ml QID SWISH-SWAL 11/12/16 18:00 11/16/16 09:51 (Tums Chew) 500 mg Q12HR CHEW 11/13/16 12:00 11/16/16 09:51 (Protonix Inj) 40 mg Q12H IV PUSH 11/13/16 16:15 11/16/16 05:14 (Morphine Inj) 2 mg Q3H PRN IV PUSH 11/14/16 08:15 Aspirin 81 mg 81 mg DAILY CHEW 11/15/16 09:00 11/16/16 09:52 (1/2 NS 1000 ml Inj) 1,000 ml @ 60 mls/hr [id number] IV 11/14/16 14:15 11/15/16 20:53 (Lasix Inj) 20 mg DAILY IV PUSH 11/15/16 09:00 11/16/16 09:52 Vital Signs / I&O Vital Signs Date Time Temp Pulse Resp B/P Pulse Ox O2 Delivery O2 Flow Rate FiO2 11/16/16 08:00 99.1 102 18 110/67 96 11/16/16 08:00 96 11/16/16 05:00 97.9 92 16 96/74 99 11/16/16 01:30 97.3 82 16 117/78 11/15/16 20:45 97.0 81 16 102/72 99 11/15/16 20:00 78 11/15/16 16:00 96.5 78 16 92/69 100 11/15/16 16:00 96.5 78 16 92/69 100 11/15/16 15:00 4 11/15/16 12:30 96.7 68 16 103/73 95 11/15/16 12:09 97.0 73 14 102/66 100 11/15/16 11:54 97.0 68 14 109/71 94 I/O 11/15/16 11/15/16 11/15/16 11/16/16 11/16/16 11/16/16 07:00 15:00 23:00 07:00 15:00 23:00 Intake Total 740 ml 480 ml 480 ml 1158 ml Output Total 200 ml Balance 540 ml 480 ml 480 ml 1158 ml Intake Oral 480 ml 480 ml 240 ml IV Total 740 ml 918 ml Output Urine Total 200 ml # Voids 3 1 Physical Exam GENERAL: NAD, AAOx3 SKIN: Warm and dry. HEAD: Atraumatic. Normocephalic. EYES: Pupils equal and round. No scleral icterus. No injection or drainage. ENT: No nasal bleeding or discharge. Mucous membranes pink and moist. NECK: Trachea midline. No JVD. CARDIOVASCULAR: Regular rate and rhythm. 1/6 holosystolic murmur at the apex RESPIRATORY: No accessory muscle use. Decreased breath sounds bilaterally, no noted rales GASTROINTESTINAL: Abdomen is distended with a fluid wave, non-tender MUSCULOSKELETAL: Extremities without clubbing, cyanosis, or edema. No obvious deformities. NEUROLOGICAL: Awake and alert. No obvious cranial nerve deficits. Motor grossly within normal limits. Five out of 5 muscle strength in the arms and legs. Normal speech. PSYCHIATRIC: Appropriate mood and affect; insight and judgment normal. Laboratory Laboratory Tests Test 11/16/16 05:52 White Blood Count 6.5 TH/MM3 Red Blood Count 3.89 MIL/MM3 Hemoglobin 12.1 GM/DL Hematocrit 35.9 % Mean Corpuscular Volume 92.2 FL Mean Corpuscular Hemoglobin 31.2 PG Mean Corpuscular Hemoglobin 33.8 % Concent Red Cell Distribution Width 17.5 % Platelet Count 102 TH/MM3 Mean Platelet Volume 9.4 FL Neutrophils (%) (Auto) 82.7 % Lymphocytes (%) (Auto) 7.8 % Monocytes (%) (Auto) 7.8 % Eosinophils (%) (Auto) 1.0 % Basophils (%) (Auto) 0.7 % Neutrophils # (Auto) 5.4 TH/MM3 Lymphocytes # (Auto) 0.5 TH/MM3 Monocytes # (Auto) 0.5 TH/MM3 Eosinophils # (Auto) 0.1 TH/MM3 Basophils # (Auto) 0.0 TH/MM3 CBC Comment DIFF FINAL Differential Comment Sodium Level 140 MEQ/L Potassium Level 3.8 MEQ/L Chloride Level 109 MEQ/L Carbon Dioxide Level 22.2 MEQ/L Anion Gap 9 MEQ/L Blood Urea Nitrogen 7 MG/DL Creatinine 0.78 MG/DL Estimat Glomerular Filtration 94 ML/MIN Rate Random Glucose 93 MG/DL Calcium Level 7.4 MG/DL Protein Corrected Calcium 7.7 MG/DL Magnesium Level 2.1 MG/DL Total Protein 6.5 GM/DL Assessment and Plan Problem List: (1) Elevated troponin (2) Ascites (3) Abdominal distension (4) HIV (human immunodeficiency virus infection) (5) Severe protein-calorie malnutrition (6) Abdominal pain (7) Transaminitis Assessment and Plan 1) Elevated troponin possible Type 1 vs 2, possibly due to fluid overload state with pleural effusions, secondary to hypoalbuminemia 2) Continue with diuresis as possible 3) ASA, no BB due to borderline hypotension 4) EF 60% 5) Elevated cardiovascular risk for any procedure with recent troponin elevation , although EGD/C-scope is overall a low risk procedure, she would still be considered high risk. Not currently ACS or acute heart failure (pleural effusions from third spacing, laying flat on room air), if felt that there would be benefit of the procedure (although not sure the benefit is there if she 's eating) may proceed as high risk, discussed with the patient ZackDavy Roberson Nov 16, 2016 11:27
--- NOTE | 2016-11-16 11:55 | HHI.PR ---
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 Denies chest pain or sob. No fevers or chills. Feels tired. Says she is eating better. Discussed with Dr Jerry cardiology, patient is at moderate risk for any procedures. We might hols EGD at this time as patient is improving with meds. Objective Vitals Vital Signs Date Time Temp Pulse Resp B/P Pulse Ox O2 Delivery O2 Flow Rate FiO2 11/16/16 11:26 97.7 94 18 118/78 96 11/16/16 08:00 99.1 102 18 110/67 96 11/16/16 08:00 96 11/16/16 05:00 97.9 92 16 96/74 99 11/16/16 01:30 97.3 82 16 117/78 11/15/16 20:45 97.0 81 16 102/72 99 11/15/16 20:00 78 11/15/16 16:00 96.5 78 16 92/69 100 11/15/16 16:00 96.5 78 16 92/69 100 11/15/16 15:00 4 11/15/16 12:30 96.7 68 16 103/73 95 11/15/16 12:09 97.0 73 14 102/66 100 11/15/16 11:54 97.0 68 14 109/71 94 I/O 11/15/16 11/15/16 11/15/16 11/16/16 11/16/16 11/16/16 07:00 15:00 23:00 07:00 15:00 23:00 Intake Total 740 ml 480 ml 480 ml 1158 ml Output Total 200 ml Balance 540 ml 480 ml 480 ml 1158 ml Intake Oral 480 ml 480 ml 240 ml IV Total 740 ml 918 ml Output Urine Total 200 ml # Voids 3 1 Result Diagram: 11/16/16 0552 11/16/16 0552 Imaging Last Impressions Cyst Biopsy Asp-Paracentesis US 11/15/16 0000 Signed Impressions: Service Date/Time: Tuesday, November 15, 2016 08:47 - CONCLUSION: Uncomplicated ultrasound guided paracentesis. Grant Villasenor MD CT Angiography 11/14/16 0000 Signed Impressions: Service Date/Time: Monday, November 14, 2016 17:44 - CONCLUSION: 1. The study is negative for pulmonary embolism. 2. Bilateral lower lobe consolidation and bilateral pleural effusions, left more severe than right. Jose Long MD Brain MRI 11/14/16 0000 Signed Impressions: Service Date/Time: Monday, November 14, 2016 17:17 - CONCLUSION: No acute findings in the brain. Lacunar infarcts in the jered, unchanged from 2013. Jose Long MD Abdomen/Pelvis CT 11/14/16 0000 Signed Impressions: Service Date/Time: Monday, November 14, 2016 08:14 - CONCLUSION: 1. Cirrhotic liver with a large amount of ascites. There are varices in the left upper quadrant around the spleen. 2. Mild bilateral pleural effusions with accompanying atelectasis or consolidation at the lung bases. 3. Small nodule seen in the right middle lobe region on the first image obtained. This was present on a prior CTA from 08/20/2015. Nelson Pinon MD Abdomen X-Ray 11/12/16 0729 Signed Impressions: Service Date/Time: Saturday, November 12, 2016 07:53 - CONCLUSION: Small bowel ileus without evidence of pathologic distention. No evidence of free air or significant mass effect.. Yaya Guzman MD Objective Remarks GENERAL: This is a cachectic appearing, very thin patient, in no apparent distress. SKIN: No rashes, ecchymoses or lesions. Cool and dry. Nursing indicated the presence of generalized scabies, but this was not readily apparent. HEAD: Bitemporal sunken,muscle waiting. Atraumatic. Normocephalic. No temporal or scalp tenderness. EYES: Pupils equal round and reactive. Extraocular motions intact. No scleral icterus. No injection or drainage. ENT: Nose without bleeding, purulent drainage or septal hematoma. Throat without erythema, tonsillar hypertrophy. Tara noted on tongue. Uvula midline. Airway patent. NECK: Trachea midline. No JVD or lymphadenopathy. Supple, nontender, no meningeal signs. CARDIOVASCULAR: Regular rate and rhythm without murmurs, gallops, or rubs. RESPIRATORY: Clear to auscultation. Breath sounds equal bilaterally. No wheezes , rales, or rhonchi. GASTROINTESTINAL: Abdomen is distended, nontender, +BS x4Q . No guarding. Dullness heard upon palpation. MUSCULOSKELETAL: Weak custom tailor. Muscle waisting. Extremities without clubbing, cyanosis, or edema. No joint tenderness, effusion, or edema noted. No calf tenderness. Negative Homans sign bilaterally. Muscle tone and mass is noted to be decreased. NEUROLOGICAL: Awake, alert and oriented x3. Cranial nerves II through XII intact. Motor and sensory grossly within normal limits. Five out of 5 muscle strength in all muscle groups. Normal speech. A/P Assessment and Plan Severe symptomatic Hypocalcemia Severe symptomatic Hypokalemia Received Ca gluconate in the ED and KCL IV Give another Ca gluconate IV 11/14 Repeat BMP Replenish electrolytes. HIV positive. 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 On fluconazole and magic wash as above NSTEMI \. Elevated troponin. Patient c/o chest pain 11/13 at night. Troponin trending up. Cardiology consulted. I discussed with Dr Chet Jerry cardiology . Patient decided for medical management and non invasive procedures. Patient also with elevated Ddimer, CTA to r/o PE is negative. 2D ECHO pending Normocytic anemia, noted HGB drop to 7.6 and elevated troponin 11/14 to decreased the demand on heart. 11/14 transfuse 2 U PRBC . H/H stable after transfusion. - Follow CBC Hypoalbuminemia -follow trend with labs Severe Protein calorie malnutrition, cachectic, muscle waisting, low albumin. Prealbumin 3. Add ensure, protein. 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 Discussed with the patient and the nurse. Kassidy Terry MD Nov 16, 2016 11:55
[2016-11-16] MEDS ORDERED: CALCIUM GLUCONATE INJ 1 GM in SODIUM CHLORIDE 0.9% INJ 100 ML IV ONE (12:00)
[2016-11-16] MEDS: DOCUSATE SODIUM 100 MG CAP PO SCH ×3 (12:00→23:04)
[2016-11-16] MEDS: FLUCONAZOLE 100 MG PREMIX BAG 50 ML IV SCH (13:21)
[2016-11-16] MEDS: ENOXAPARIN SODIUM 40 MG/0.4 ML SYRINGE SQ SCH (13:21)
--- NOTE | 2016-11-16 13:58 | HHI.GIFU ---
Subjective Remarks Pt resting comfortably in bed. Says she hasn't been eating but will eat lunch, denies trouble swallowing. Denies n/v, abd pain. Says she itches some. (Renetta Mercedes) Objective Vitals I&O Vital Signs Date Time Temp Pulse Resp B/P Pulse Ox O2 Delivery O2 Flow Rate FiO2 11/16/16 11:26 97.7 94 18 118/78 96 11/16/16 08:00 99.1 102 18 110/67 96 11/16/16 08:00 96 11/16/16 05:00 97.9 92 16 96/74 99 11/16/16 01:30 97.3 82 16 117/78 11/15/16 20:45 97.0 81 16 102/72 99 11/15/16 20:00 78 11/15/16 16:00 96.5 78 16 92/69 100 11/15/16 16:00 96.5 78 16 92/69 100 11/15/16 15:00 4 I/O 11/15/16 11/15/16 11/15/16 11/16/16 11/16/16 11/16/16 07:00 15:00 23:00 07:00 15:00 23:00 Intake Total 740 ml 480 ml 480 ml 1158 ml Output Total 200 ml Balance 540 ml 480 ml 480 ml 1158 ml Intake Oral 480 ml 480 ml 240 ml IV Total 740 ml 918 ml Output Urine Total 200 ml # Voids 3 1 Laboratory Laboratory Tests Test 11/16/16 05:52 White Blood Count 6.5 Red Blood Count 3.89 Hemoglobin 12.1 Hematocrit 35.9 Mean Corpuscular Volume 92.2 Mean Corpuscular Hemoglobin 31.2 Mean Corpuscular Hemoglobin 33.8 Concent Red Cell Distribution Width 17.5 Platelet Count 102 Mean Platelet Volume 9.4 Neutrophils (%) (Auto) 82.7 Lymphocytes (%) (Auto) 7.8 Monocytes (%) (Auto) 7.8 Eosinophils (%) (Auto) 1.0 Basophils (%) (Auto) 0.7 Neutrophils # (Auto) 5.4 Lymphocytes # (Auto) 0.5 Monocytes # (Auto) 0.5 Eosinophils # (Auto) 0.1 Basophils # (Auto) 0.0 CBC Comment DIFF FINAL Differential Comment Sodium Level 140 Potassium Level 3.8 Chloride Level 109 Carbon Dioxide Level 22.2 Anion Gap 9 Blood Urea Nitrogen 7 Creatinine 0.78 Estimat Glomerular Filtration 94 Rate Random Glucose 93 Calcium Level 7.4 Protein Corrected Calcium 7.7 Magnesium Level 2.1 Total Protein 6.5 Date/Time Procedure Status Source Growth 11/15/16 11:05 Gram Stain - Final Resulted Fluid Peritoneal Fluid 11/15/16 11:05 Body Fluid Culture - Preliminary Resulted Fluid Peritoneal Fluid NO GROWTH IN 24 HOURS. Imaging Last Impressions Cyst Biopsy Asp-Paracentesis US 11/15/16 0000 Signed Impressions: Service Date/Time: Tuesday, November 15, 2016 08:47 - CONCLUSION: Uncomplicated ultrasound guided paracentesis. Grant Villasenor MD CT Angiography 11/14/16 0000 Signed Impressions: Service Date/Time: Monday, November 14, 2016 17:44 - CONCLUSION: 1. The study is negative for pulmonary embolism. 2. Bilateral lower lobe consolidation and bilateral pleural effusions, left more severe than right. Jose Long MD Brain MRI 11/14/16 0000 Signed Impressions: Service Date/Time: Monday, November 14, 2016 17:17 - CONCLUSION: No acute findings in the brain. Lacunar infarcts in the jered, unchanged from 2013. Jose Long MD Abdomen/Pelvis CT 11/14/16 0000 Signed Impressions: Service Date/Time: Monday, November 14, 2016 08:14 - CONCLUSION: 1. Cirrhotic liver with a large amount of ascites. There are varices in the left upper quadrant around the spleen. 2. Mild bilateral pleural effusions with accompanying atelectasis or consolidation at the lung bases. 3. Small nodule seen in the right middle lobe region on the first image obtained. This was present on a prior CTA from 08/20/2015. Nelson Pinon MD Abdomen X-Ray 11/12/16 0729 Signed Impressions: Service Date/Time: Saturday, November 12, 2016 07:53 - CONCLUSION: Small bowel ileus without evidence of pathologic distention. No evidence of free air or significant mass effect.. Yaya Guzman MD Physical Exam GENERAL: gaunt HEENT: EOMI, normocephalic, atraumatic, no icterus CHEST: CTA CARDIAC: Regular, + murmur ABDOMEN: +BS, soft, nondistended, mildly tender. 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 (Renetta Mercedes) Assessment and Plan Plan ASSESSMENT: - Abdominal pain. improved,s/p paracentesis. Abdomen X-Ray (11/12/16)----> Small bowel ileus without evidence of pathologic distention. No evidence of free air or significant mass effect. Last EGD/Colonoscopy (01/05/16)---> normal duodenum , gastritis in the antrum, stricture/Schatzki's ring distal esophagus status post dilatation 14 savory guidewire, hiatal hernia, 2 diminutive polyps in cecum 5 mm and 6 mm each, cold biopsy with complete removal, 2 polyps at hepatic flexure 6 mm each cold biopsy with complete removal, no normal colon otherwise random biopsies of the ascending and descending colon, medium internal hemorrhoids, decreased sphincter tone. Pathology with small intestinal mucosa without significant histopathologic abnormality, severe chronic gastritis, negative for Helicobacter pylori, hepatic flexure adenomatous polyp, ascending colonic mucosa without significant histopathologic abnormality, adenomatous polyp cecum, descending colon with colonic mucosa without significant histopathologic abnormality. CT Abd/pelvis (11/14) --> Cirrhotic liver with a large amount of ascites. There are varices in the left upper quadrant around the spleen. Mild bilateral pleural effusions with accompanying atelectasis or consolidation at the lung bases. Small nodule seen in the right middle lobe region on the first image obtained. This was present on a prior CTA from 08/20/2015. PPI - Dysphagia. per cardiology pt high risk. Does have hx of strictures/Schatzki' s ring, has oral thrush. Diflucan, Magic mouthwash. - Elevated troponin and chest pain. Troponin 0.09 --> 1.39 Cardiology is consulted - Elevated LFTs/Liver cirrhosis. CT Abd/pelvis (11/14) --> Cirrhotic liver with a large amount of ascites. There are varices in the left upper quadrant around the spleen. Mild bilateral pleural effusions with accompanying atelectasis or consolidation at the lung bases. Small nodule seen in the right middle lobe region on the first image obtained. This was present on a prior CTA from 08/20/2015. Hepatitis panel, AMA, ASMA, ZAYRA, Ceruloplasmin, [id number] in 07/2016 was negative. Pt with a hx of EtOH abuse. Pts last US guided paracentesis was on 11/01/16 with removal of 2900cc of yellow ascetic fluid. Pt was discharged on Lasix 20mg po BID and Aldactone 25mg po BID after July 2016 admission. - Abn. Wt. Loss, 23 lbs over the past 3 months. - Chronic diarrhea. This has been worked up in the past and thought to be related to retrovirals. - Oral Candidiasis. Diflucan, - Anemia, normocytic. HH 7.2/21.8 - Electrolyte abnormalities. Replacement/correction per primary - HIV, AIDS. ID following. PLAN: - JARAD - Cont. Protonix 40mg IV BID - Cont. Diflucan - Cont. Magic mouthwash - Monitor labs - Supportive care - Further recommendations to follow after Dr Lacy sees pt This pt was seen by myself and Dr Lacy and this note is written on his behalf (Renetta Mercedes) Physician Comments Patient seen and examined Agree with above Continue with current supportive care Monitor labs Cardiology has stated the patient is at high risk and seeing that the patient is getting better on medication I think at this point we will hold off on any intervention Continue with current supportive care Consider barium swallow or upper GI series if symptoms recur At this point not much to add from a GI perspective we will sign off (Juwan Lacy MD) Renetta Mercedes Nov 16, 2016 13:58 Juwan Lacy MD Nov 16, 2016 15:30
[2016-11-16] MEDS: SODIUM CHLOR 0.45% 1000 ML INJ 1,000 ML IV SCH (15:11)
[2016-11-16 21:15] VITALS: PULSE 97
[2016-11-16 22:30] VITALS: BP 98/58; PULSE 106; RESP 18; TEMP 100.7; O2SAT 97
[2016-11-17] VITALS (8 sets, daily range): BP systolic 100–117; BP diastolic 64–78; PULSE 90–102; RESP 15–20; TEMP 97.3–100; O2SAT 93–98
[2016-11-17 03:50] LABS: CD 19 PERCENT 10 % (6-29); CD3 ABSOLUTE 330 (840-3060); CD4/CD8 RATIO 0.1 (0.86-5.00); CD8 ABSOLUTE 309 (180-1170); LYMPHOCYTES, ABSOLUTE 607 (850-3900)
[2016-11-17] MEDS: PANTOPRAZOLE SODIUM 40 MG VIAL IV PUSH SCH ×2 (05:14→15:28)
[2016-11-17] MEDS: SODIUM CHLOR 0.45% 1000 ML INJ 1,000 ML IV SCH (05:14)
[2016-11-17 06:19] LABS: AUTOMATED NEUTROPHIL # 7.1 TH/MM3 (1.8-7.7); BASOPHIL % 0.5 % (0.0-2.0); EOSINOPHIL % 0.2 % (0.0-4.0); HEMATOCRIT 34.6 % (35.0-46.0); HEMO FLAGS DIFF FINAL; LYMPH % 10.1 % (9.0-44.0); LYMPHOCYTE # 0.9 TH/MM3 (1.0-4.8); MEAN CELL VOLUME 92.7 FL (80.0-100.0); MEAN CORPUSCULAR HEMOGLOBIN 30.7 PG (27.0-34.0); MEAN CORPUSCULAR HGB CONC 33.2 % (32.0-36.0); NEUT % 80.2 % (16.0-70.0); PLATELET COUNT 105 TH/MM3 (150-450); RED BLOOD COUNT 3.73 MIL/MM3 (4.00-5.30); RED CELL DISTRIBUTION WIDTH 16.8 % (11.6-17.2); WHITE BLOOD COUNT 8.8 TH/MM3 (4.0-11.0)
--- NOTE | 2016-11-17 07:13 | HHI.PR ---
Subjective Remarks Thrush improving, eating better but not much. Family at bedside -. No fever or chills. Denies chest pain, sob, n/v/d/c. Abd distention and pain improved after paracentesis. Objective Vitals Vital Signs Date Time Temp Pulse Resp B/P Pulse Ox O2 Delivery O2 Flow Rate FiO2 11/17/16 05:19 98.0 96 15 102/70 98 11/17/16 01:15 99.0 96 16 100/64 97 11/16/16 22:30 100.7 106 18 98/58 97 11/16/16 21:15 97 11/16/16 11:26 97.7 94 18 118/78 96 11/16/16 08:00 99.1 102 18 110/67 96 11/16/16 08:00 96 I/O 11/16/16 11/16/16 11/16/16 11/17/16 11/17/16 11/17/16 07:00 15:00 23:00 07:00 15:00 23:00 Intake Total 1158 ml 480 ml 950 ml Balance 1158 ml 480 ml 950 ml Intake Oral 240 ml 480 ml IV Total 918 ml 950 ml # Voids 1 2 # Bowel Movements 1 Result Diagram: 11/17/16 0456 11/16/16 0552 Imaging Last Impressions Cyst Biopsy Asp-Paracentesis US 11/15/16 0000 Signed Impressions: Service Date/Time: Tuesday, November 15, 2016 08:47 - CONCLUSION: Uncomplicated ultrasound guided paracentesis. Grant Villasenor MD CT Angiography 11/14/16 0000 Signed Impressions: Service Date/Time: Monday, November 14, 2016 17:44 - CONCLUSION: 1. The study is negative for pulmonary embolism. 2. Bilateral lower lobe consolidation and bilateral pleural effusions, left more severe than right. Jose Long MD Brain MRI 11/14/16 0000 Signed Impressions: Service Date/Time: Monday, November 14, 2016 17:17 - CONCLUSION: No acute findings in the brain. Lacunar infarcts in the jered, unchanged from 2013. Jose Long MD Abdomen/Pelvis CT 11/14/16 0000 Signed Impressions: Service Date/Time: Monday, November 14, 2016 08:14 - CONCLUSION: 1. Cirrhotic liver with a large amount of ascites. There are varices in the left upper quadrant around the spleen. 2. Mild bilateral pleural effusions with accompanying atelectasis or consolidation at the lung bases. 3. Small nodule seen in the right middle lobe region on the first image obtained. This was present on a prior CTA from 08/20/2015. Nelson Pinon MD Abdomen X-Ray 11/12/16 0729 Signed Impressions: Service Date/Time: Saturday, November 12, 2016 07:53 - CONCLUSION: Small bowel ileus without evidence of pathologic distention. No evidence of free air or significant mass effect.. Yaya Guzman MD Objective Remarks GENERAL: This is a cachectic appearing, very thin patient, in no apparent distress. SKIN: No rashes, ecchymoses or lesions. Cool and dry. Nursing indicated the presence of generalized scabies, but this was not readily apparent. HEAD: Bitemporal sunken,muscle waiting. Atraumatic. Normocephalic. No temporal or scalp tenderness. EYES: Pupils equal round and reactive. Extraocular motions intact. No scleral icterus. No injection or drainage. ENT: Nose without bleeding, purulent drainage or septal hematoma. Throat without erythema, tonsillar hypertrophy. Tara noted on tongue. Uvula midline. Airway patent. NECK: Trachea midline. No JVD or lymphadenopathy. Supple, nontender, no meningeal signs. CARDIOVASCULAR: Regular rate and rhythm without murmurs, gallops, or rubs. RESPIRATORY: Clear to auscultation. Breath sounds equal bilaterally. No wheezes , rales, or rhonchi. GASTROINTESTINAL: Abdomen is distended, nontender, +BS x4Q . No guarding. Dullness heard upon palpation. MUSCULOSKELETAL: Weak steel unloader. Muscle waisting. Extremities without clubbing, cyanosis, or edema. No joint tenderness, effusion, or edema noted. No calf tenderness. Negative Homans sign bilaterally. Muscle tone and mass is noted to be decreased. NEUROLOGICAL: Awake, alert and oriented x3. Cranial nerves II through XII intact. Motor and sensory grossly within normal limits. Five out of 5 muscle strength in all muscle groups. Normal speech. A/P Assessment and Plan Severe symptomatic Hypocalcemia Severe symptomatic Hypokalemia Received Ca gluconate in the ED and KCL IV Give another Ca gluconate IV 11/14 Repeat BMP Replenish electrolytes. HIV positive. 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 PML (low CD4 count per records 08/10), patient with dysphagia, altered mental status , concern for PML/HIV dementia , pt is noncompliant with meds -Order new CD4 count -ID consult, appreciate recommendations - Plan for MRI Thrush -Magic mouthwash, start fluconazole IV Dysphagia poss 2/2 tara esophagitis Severe ascites Coagulopathy elevated INR received vit K 11/14 S/P paracentesis 11/15/16 -GI consult to be placed. On fluconazole and magic wash as above -Discussed with cardiology dr Jerry patient is at moderate risk for GI procedures and not adviced. NSTEMI \. Elevated troponin. Patient c/o chest pain 11/13 at night. Troponin trending up. Cardiology consulted. I discussed with Dr Chet Jerry cardiology . Patient decided for medical management and non invasive procedures. Patient also with elevated Ddimer, CTA to r/o PE is negative. 2D ECHO pending Normocytic anemia, noted HGB drop to 7.6 and elevated troponin 11/14 to decreased the demand on heart. 11/14 transfuse 2 U PRBC . H/H stable after transfusion. Monitor. - Follow CBC Hypoalbuminemia -follow trend with labs Severe Protein calorie malnutrition, cachectic, muscle waisting, low albumin. Prealbumin 3. Add ensure, protein. Consult service tech/welder. Discussed with the patient and the nurse, family at bedside. Will ask palliative care in consult, for goals of care, patient is deteriorating, poor prognosis. Kassidy Terry MD Nov 17, 2016 07:13
[2016-11-17 07:20] LABS: BICARBONATE 23.9 MEQ/L (21.0-32.0); POTASSIUM 3.6 MEQ/L (3.5-5.1)
[2016-11-17 07:44] LABS: CALCIUM-PROTEIN CORRECTED 7.6 MG/DL (8.5-10.1)
[2016-11-17] MEDS: FUROSEMIDE 20 MG/2 ML VIAL IV PUSH SCH (09:00)
[2016-11-17] MEDS: SODIUM CHLORIDE 0.9% FLUSH 10 ML FLUSH IV FLUSH SCH ×2 (09:27→21:00)
[2016-11-17] MEDS: NYSTAT/DIPHENHY/LIDO MOUTHWASH (Adult) 120ML SWISH-SWAL SCH ×4 (09:27→21:26)
[2016-11-17] MEDS: CALCIUM CARBONATE 500 MG CHEWABLE TAB CHEW SCH ×2 (09:27→21:26)
[2016-11-17] MEDS: ASPIRIN 81 MG CHEW TAB CHEW SCH (09:27)
[2016-11-17] MEDS ORDERED: ALBUMIN HUMAN 25% 25 GM/100 ML BAGP IV ONE (11:00)
[2016-11-17] MEDS ORDERED: FUROSEMIDE 20 MG/2 ML VIAL IV PUSH ONE (11:00)
[2016-11-17] MEDS ORDERED: POTASSIUM CHLORIDE 10 MEQ CONTROLLED RELEASE TAB PO ONE (11:00)
[2016-11-17] MEDS: ENOXAPARIN SODIUM 40 MG/0.4 ML SYRINGE SQ SCH (11:19)
[2016-11-17] MEDS: DOCUSATE SODIUM 100 MG CAP PO SCH ×2 (11:19→23:34)
--- NOTE | 2016-11-17 12:11 | PD.CARD.PN ---
Subjective Subjective Remarks No chest pain, no shortness of breath Eating better Objective Medications Current Medications Medications (Trade) Dose Ordered Sig/Sue Route Start Time Stop Time Status Last Admin (NS Flush) 2 ml UNSCH PRN IV FLUSH 11/12/16 11:45 (NS Flush) 2 ml BID IV FLUSH 11/12/16 21:00 11/17/16 09:27 (Tylenol) 650 mg Q4H PRN PO 11/12/16 11:45 11/13/16 22:39 (Zofran Inj) 4 mg Q6H PRN IVP 11/12/16 11:45 (Colace) 100 mg Q12H PO 11/12/16 12:00 11/17/16 11:19 (Milk Of Magnesia Liq) 30 ml Q12H PRN PO 11/12/16 11:45 Enoxaparin Sodium 40 mg 40 mg Q24H SQ 11/12/16 12:00 11/17/16 11:19 (Diflucan 100 Mg Premix Bag) 50 ml @ 50 mls/hr Q24H IV 11/12/16 14:45 11/16/16 13:21 (Magic Mouthwash Adult Liq) 5 ml QID SWISH-SWAL 11/12/16 18:00 11/17/16 09:27 (Tums Chew) 500 mg Q12HR CHEW 11/13/16 12:00 11/17/16 09:27 (Protonix Inj) 40 mg Q12H IV PUSH 11/13/16 16:15 11/17/16 05:14 (Morphine Inj) 2 mg Q3H PRN IV PUSH 11/14/16 08:15 Aspirin 81 mg 81 mg DAILY CHEW 11/15/16 09:00 11/17/16 09:27 (1/2 NS 1000 ml Inj) 1,000 ml @ 60 mls/hr [id number] IV 11/14/16 14:15 11/17/16 05:14 Furosemide 20 mg 20 mg DAILY IV PUSH 11/15/16 09:00 11/17/16 09:00 (Calcium Gluconate Inj/D5W 100 ml Inj) 110 ml @ 110 mls/hr ONCE ONCE IV 11/17/16 13:00 11/17/16 13:59 Vital Signs / I&O Vital Signs Date Time Temp Pulse Resp B/P Pulse Ox O2 Delivery O2 Flow Rate FiO2 11/17/16 08:00 97 11/17/16 07:50 98.2 94 20 101/72 93 11/17/16 05:19 98.0 96 15 102/70 98 11/17/16 01:15 99.0 96 16 100/64 97 11/16/16 22:30 100.7 106 18 98/58 97 11/16/16 21:15 97 I/O 11/16/16 11/16/16 11/16/16 11/17/16 11/17/16 11/17/16 07:00 15:00 23:00 07:00 15:00 23:00 Intake Total 1158 ml 480 ml 1070 ml Balance 1158 ml 480 ml 1070 ml Intake Oral 240 ml 480 ml 120 ml IV Total 918 ml 950 ml # Voids 1 2 0 # Bowel Movements 1 Physical Exam GENERAL: NAD, AAOx3 SKIN: Warm and dry. HEAD: Atraumatic. Normocephalic. EYES: Pupils equal and round. No scleral icterus. No injection or drainage. ENT: No nasal bleeding or discharge. Mucous membranes pink and moist. NECK: Trachea midline. No JVD. CARDIOVASCULAR: Regular rate and rhythm. 1/6 holosystolic murmur at the apex RESPIRATORY: No accessory muscle use. Decreased breath sounds bilaterally, no noted rales GASTROINTESTINAL: Abdomen is non-distended, non-tender MUSCULOSKELETAL: Extremities without clubbing, cyanosis, or edema. No obvious deformities. NEUROLOGICAL: Awake and alert. No obvious cranial nerve deficits. Motor grossly within normal limits. Five out of 5 muscle strength in the arms and legs. Normal speech. PSYCHIATRIC: Appropriate mood and affect; insight and judgment normal. Laboratory Laboratory Tests Test 11/17/16 04:56 White Blood Count 8.8 TH/MM3 Red Blood Count 3.73 MIL/MM3 Hemoglobin 11.5 GM/DL Hematocrit 34.6 % Mean Corpuscular Volume 92.7 FL Mean Corpuscular Hemoglobin 30.7 PG Mean Corpuscular Hemoglobin 33.2 % Concent Red Cell Distribution Width 16.8 % Platelet Count 105 TH/MM3 Mean Platelet Volume 9.8 FL Neutrophils (%) (Auto) 80.2 % Lymphocytes (%) (Auto) 10.1 % Monocytes (%) (Auto) 9.0 % Eosinophils (%) (Auto) 0.2 % Basophils (%) (Auto) 0.5 % Neutrophils # (Auto) 7.1 TH/MM3 Lymphocytes # (Auto) 0.9 TH/MM3 Monocytes # (Auto) 0.8 TH/MM3 Eosinophils # (Auto) 0.0 TH/MM3 Basophils # (Auto) 0.0 TH/MM3 CBC Comment DIFF FINAL Differential Comment Sodium Level 139 MEQ/L Potassium Level 3.6 MEQ/L Chloride Level 106 MEQ/L Carbon Dioxide Level 23.9 MEQ/L Anion Gap 9 MEQ/L Blood Urea Nitrogen 12 MG/DL Creatinine 1.12 MG/DL Estimat Glomerular Filtration 62 ML/MIN Rate Random Glucose 66 MG/DL Calcium Level 7.4 MG/DL Protein Corrected Calcium 7.6 MG/DL Magnesium Level 2.0 MG/DL Total Protein 6.7 GM/DL Assessment and Plan Problem List: (1) Elevated troponin (2) Ascites (3) Abdominal distension (4) HIV (human immunodeficiency virus infection) (5) Severe protein-calorie malnutrition (6) Abdominal pain (7) Transaminitis Assessment and Plan 1) Elevated troponin possible Type 1 vs 2, possibly due to fluid overload state with pleural effusions, secondary to hypoalbuminemia 2) Continue with diuresis as possible 3) ASA, no BB due to borderline hypotension 4) EF 60% 5) Elevated cardiovascular risk for any procedure with recent troponin elevation 6) Will see PRN, call with questions Davy Dixon DO Nov 17, 2016 12:11
[2016-11-17] MEDS ORDERED: CALCIUM GLUCONATE INJ 1 GM in DEXTROSE 5% IN WATER 100ML INJ 100 ML IV ONE ×2 (13:00)
[2016-11-17] MEDS: FLUCONAZOLE 100 MG PREMIX BAG 50 ML IV SCH (15:28)
[2016-11-17] MEDS: ACETAMINOPHEN 325 MG TAB PO PRN (22:19)
[2016-11-18] VITALS (8 sets, daily range): BP systolic 103–132; BP diastolic 69–83; PULSE 82–96; RESP 16–20; TEMP 95.5–97.9; O2SAT 96–100
[2016-11-18] MEDS: SODIUM CHLOR 0.45% 1000 ML INJ 1,000 ML IV SCH ×2 (00:46→17:38)
[2016-11-18] MEDS: PANTOPRAZOLE SODIUM 40 MG VIAL IV PUSH SCH ×2 (03:36→17:33)
[2016-11-18] MEDS: ACETAMINOPHEN 325 MG TAB PO PRN (03:40)
--- NOTE | 2016-11-18 07:25 | HHI.PR ---
Subjective Remarks Low Ca and hypoglycemic . Patient says she feels tired. Says she can eat but not much , she has pain with swallowing. No n/v/d/c. Says belly is getting bigger again. Right arm selling and pain. Remove IV site, will do US Patient has no fevers or chills. Objective Vitals Vital Signs Date Time Temp Pulse Resp B/P Pulse Ox O2 Delivery O2 Flow Rate FiO2 11/18/16 03:53 96.7 88 16 110/78 98 11/18/16 01:30 97.9 96 18 103/69 96 11/17/16 21:30 98.8 90 18 117/75 98 11/17/16 20:00 102 11/17/16 15:50 100.0 101 20 116/78 98 11/17/16 11:50 97.3 95 20 106/73 95 11/17/16 08:00 97 11/17/16 07:50 98.2 94 20 101/72 93 I/O 11/17/16 11/17/16 11/17/16 11/18/16 11/18/16 11/18/16 07:00 15:00 23:00 07:00 15:00 23:00 Intake Total 1070 ml 60 ml 480 ml 480 ml Balance 1070 ml 60 ml 480 ml 480 ml Intake Oral 120 ml 60 ml 480 ml 480 ml IV Total 950 ml # Voids 0 4 1 1 # Bowel Movements 1 Result Diagram: 11/17/16 0456 11/17/16 0456 Imaging Last Impressions Cyst Biopsy Asp-Paracentesis US 11/15/16 0000 Signed Impressions: Service Date/Time: Tuesday, November 15, 2016 08:47 - CONCLUSION: Uncomplicated ultrasound guided paracentesis. Grant Villasenor MD CT Angiography 11/14/16 0000 Signed Impressions: Service Date/Time: Monday, November 14, 2016 17:44 - CONCLUSION: 1. The study is negative for pulmonary embolism. 2. Bilateral lower lobe consolidation and bilateral pleural effusions, left more severe than right. Jose Long MD Brain MRI 11/14/16 0000 Signed Impressions: Service Date/Time: Monday, November 14, 2016 17:17 - CONCLUSION: No acute findings in the brain. Lacunar infarcts in the jered, unchanged from 2013. Jose Long MD Abdomen/Pelvis CT 11/14/16 0000 Signed Impressions: Service Date/Time: Monday, November 14, 2016 08:14 - CONCLUSION: 1. Cirrhotic liver with a large amount of ascites. There are varices in the left upper quadrant around the spleen. 2. Mild bilateral pleural effusions with accompanying atelectasis or consolidation at the lung bases. 3. Small nodule seen in the right middle lobe region on the first image obtained. This was present on a prior CTA from 08/20/2015. Nelson Pinon MD Abdomen X-Ray 11/12/16 0729 Signed Impressions: Service Date/Time: Saturday, November 12, 2016 07:53 - CONCLUSION: Small bowel ileus without evidence of pathologic distention. No evidence of free air or significant mass effect.. Yaya Guzman MD Objective Remarks GENERAL: This is a cachectic appearing, very thin patient, in no apparent distress. SKIN: No rashes, ecchymoses or lesions. Cool and dry. Nursing indicated the presence of generalized scabies, but this was not readily apparent. HEAD: Bitemporal sunken,muscle waiting. Atraumatic. Normocephalic. No temporal or scalp tenderness. EYES: Pupils equal round and reactive. Extraocular motions intact. No scleral icterus. No injection or drainage. ENT: Nose without bleeding, purulent drainage or septal hematoma. Throat without erythema, tonsillar hypertrophy. Tara noted on tongue. Uvula midline. Airway patent. NECK: Trachea midline. No JVD or lymphadenopathy. Supple, nontender, no meningeal signs. CARDIOVASCULAR: Regular rate and rhythm without murmurs, gallops, or rubs. RESPIRATORY: Clear to auscultation. Breath sounds equal bilaterally. No wheezes , rales, or rhonchi. GASTROINTESTINAL: Abdomen is distended, nontender, +BS x4Q . No guarding. Dullness heard upon palpation. 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 Muscle waisting. Extremities without clubbing, cyanosis, or edema. No joint tenderness, effusion, or edema noted. No calf tenderness. Negative Homans sign bilaterally. Muscle tone and mass is noted to be decreased. NEUROLOGICAL: Awake, alert and oriented x3. Cranial nerves II through XII intact. Motor and sensory grossly within normal limits. Five out of 5 muscle strength in all muscle groups. Normal speech. A/P Assessment and Plan Severe symptomatic Hypocalcemia. Persistent Severe symptomatic Hypokalemia Received Ca gluconate in the ED and KCL IV Give another Ca gluconate IV 11/14 Repeat BMP Replenish electrolytes. HIV positive. 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 On fluconazole and magic wash as above -Discussed with cardiology dr Jerry patient is at moderate/severe risk for GI procedures and not adviced. NSTEMI \. Elevated troponin. Patient c/o chest pain 11/13 at night. Troponin trending up. Cardiology consulted. I discussed with Dr Chte Jerry cardiology . Patient decided for medical management and non invasive procedures. Patient also with elevated Ddimer, CTA to r/o PE is negative. 2D ECHO pending Right arm swelling do doppler US to r/o DVT. Patient with coagulopathy elevated INR, difficult to treat DVT Normocytic anemia, noted HGB drop to 7.6 and elevated troponin 11/14 to decreased the demand on heart. 11/14 transfuse 2 U PRBC . H/H stable after transfusion. Monitor. - Follow CBC Hypoalbuminemia, severe alb 0.8 -follow trend with labs Severe Protein calorie malnutrition, cachectic, muscle waisting, low albumin. Prealbumin 3. Alb 0.8. Add ensure, protein. Consult plaster machine operator. Discussed with the patient and the nurse, family at bedside. Palliative care consult, for goals of care, patient is deteriorating, poor prognosis. Kassidy Terry MD Nov 18, 2016 07:25
[2016-11-18] MEDS ORDERED: FURO20TA PO (07:35)
[2016-11-18] MEDS ORDERED: BACT800T5 PO (07:35)
[2016-11-18] MEDS ORDERED: SPIR25 PO (07:35)
[2016-11-18] MEDS ORDERED: MAGICADU2 SWISH-SWAL (07:35)
[2016-11-18] MEDS ORDERED: GLUCAGON 1 MG/ML VIAL OTHER PRN (07:45)
[2016-11-18] MEDS ORDERED: ALBUMIN HUMAN 25% 25 GM/100 ML BAGP IV ONE (07:45)
[2016-11-18] MEDS: CALCIUM CARBONATE 500 MG CHEWABLE TAB CHEW SCH ×2 (08:59→21:09)
[2016-11-18] MEDS: SODIUM CHLORIDE 0.9% FLUSH 10 ML FLUSH IV FLUSH SCH ×2 (09:00→21:00)
[2016-11-18] MEDS ORDERED: CALCIUM GLUCONATE INJ 1 GM in SODIUM CHLORIDE 0.9% INJ 100 ML IV ONE (09:00)
[2016-11-18] MEDS: ASPIRIN 81 MG CHEW TAB CHEW SCH (09:01)
[2016-11-18] MEDS: NYSTAT/DIPHENHY/LIDO MOUTHWASH (Adult) 120ML SWISH-SWAL SCH ×4 (09:01→21:11)
[2016-11-18] MEDS: SPIRONOLACTONE 25 MG TAB PO SCH (09:06)
[2016-11-18] MEDS: ENOXAPARIN SODIUM 40 MG/0.4 ML SYRINGE SQ SCH (11:28)
[2016-11-18] MEDS: FUROSEMIDE 20 MG/2 ML VIAL IV PUSH SCH (11:29)
[2016-11-18] MEDS: DOCUSATE SODIUM 100 MG CAP PO SCH (11:32)
[2016-11-18] MEDS: FLUCONAZOLE 100 MG PREMIX BAG 50 ML IV SCH (14:26)
--- NOTE | 2016-11-18 14:58 | PD.CONS ---
Consult Service Palliative Care . Consult Requested By Dr. Terry . Primary Care Physician Jeremiah Garcia MD . Reason for Consultation a. To assist with evaluation and management of symptoms including: decreased appetite, dysphagia. b. To assist medical decision maker(s) with: better understanding of current medical conditions; weighing benefits/burdens of medical treatment options; making medical treatment decisions. . Past Family Social History Coded Allergies: No Known Allergies (Verified , 11/12/16) Past Medical History Esophageal stricture Schatzki's ring Gastritis Colitis Colonic polyps Diarrhea related to retrovirals HIV CVA Ascites Cirrhosis Malnutrition . Past Surgical History Exploratory laparotomy Surgery for Ectopic EGD/Colonoscopy . Reported Medications * Magic Mouthwash 5 mL swish and swallow QID . Current Medications Medications (Trade) Dose Ordered Sig/Sue Route Start Time Stop Time Status Last Admin (NS Flush) 2 ml UNSCH PRN IV FLUSH 11/12/16 11:45 (NS Flush) 2 ml BID IV FLUSH 11/12/16 21:00 11/18/16 09:00 (Tylenol) 650 mg Q4H PRN PO 11/12/16 11:45 11/18/16 03:40 (Zofran Inj) 4 mg Q6H PRN IVP 11/12/16 11:45 (Colace) 100 mg Q12H PO 11/12/16 12:00 11/17/16 11:19 (Milk Of Magnesia Liq) 30 ml Q12H PRN PO 11/12/16 11:45 Enoxaparin Sodium 40 mg 40 mg Q24H SQ 11/12/16 12:00 11/18/16 11:28 (Diflucan 100 Mg Premix Bag) 50 ml @ 50 mls/hr Q24H IV 11/12/16 14:45 11/18/16 14:26 (Magic Mouthwash Adult Liq) 5 ml QID SWISH-SWAL 11/12/16 18:00 11/18/16 14:27 (Tums Chew) 500 mg Q12HR CHEW 11/13/16 12:00 11/18/16 08:59 (Protonix Inj) 40 mg Q12H IV PUSH 11/13/16 16:15 11/18/16 03:36 (Morphine Inj) 2 mg Q3H PRN IV PUSH 11/14/16 08:15 Aspirin 81 mg 81 mg DAILY CHEW 11/15/16 09:00 11/18/16 09:01 (1/2 NS 1000 ml Inj) 1,000 ml @ 60 mls/hr [id number] IV 11/14/16 14:15 11/18/16 00:46 (Lasix Inj) 20 mg DAILY IV PUSH 11/15/16 09:00 11/18/16 11:29 (D50w (Vial) Inj) 25 ml UNSCH PRN IV PUSH 11/18/16 07:45 (Glucagon Inj) 1 mg UNSCH PRN OTHER 11/18/16 07:45 (Aldactone) 25 mg DAILY PO 11/18/16 09:00 11/18/16 09:06 . Substance Use Tobacco: Quit smoking recently. Alcohol: Occasional. Prescription med abuse: none known. Illicits: History of cocaine use, which pt said she had "not used in a long time. We are talking years." . Physical Exam Vital Signs Date Time Temp Pulse Resp B/P Pulse Ox O2 Delivery O2 Flow Rate FiO2 11/18/16 11:50 95.5 84 20 119/80 100 11/18/16 07:50 96.6 82 20 122/83 99 11/18/16 03:53 96.7 88 16 110/78 98 11/18/16 01:30 97.9 96 18 103/69 96 11/17/16 21:30 98.8 90 18 117/75 98 11/17/16 20:00 102 11/17/16 15:50 100.0 101 20 116/78 98 11/17/16 11/18/16 19:00 07:00 Intake Total 60 ml 960 ml Balance 60 ml 960 ml Intake Oral 60 ml 960 ml # Voids 4 2 # Bowel Movements 1 Exam CONSTITUTIONAL/GENERAL: This is an adequately nourished patient, in no apparent distress. TUBES/LINES/DRAINS: SKIN: No jaundice, rashes, or lesions. Ecchymoses on upper extremities. No wounds seen anteriorly. Skin temperature appropriate. Not diaphoretic. HEAD: Atraumatic. Normocephalic. EYES: Pupils equal and round and reactive. Extraocular motions intact. No scleral icterus. No injection or drainage. Fundi not examined. ENT: Hearing grossly normal. Nose without bleeding or purulent drainage. Throat without visible erythema, exudates, masses, or lesions. NECK: Trachea midline. Supple, nontender. No palpable thyroid enlargement or nodularity. CARDIOVASCULAR: Regular rate and rhythm without murmurs, gallops, or rubs. No JVD. Peripheral pulses symmetric. RESPIRATORY/CHEST: Symmetric, unlabored respirations. Clear to auscultation. Breath sounds equal bilaterally. No wheezes, rales, or rhonchi. GASTROINTESTINAL: Abdomen soft, non-tender, nondistended. No hepato-splenomegaly , or palpable masses. No guarding. Bowel sounds present. GENITOURINARY: Without palpable bladder distension. Conde catheter in place. MUSCULOSKELETAL: Extremities without clubbing, cyanosis, or edema. No joint tenderness or effusion noted. No calf tenderness. No mottling or clubbing. LYMPHATICS: No palpable cervical or supraclavicular adenopathy. NEUROLOGICAL: Awake and alert. Motor and sensory grossly within normal limits. Follows commands. Cognitively sharp. Moves all extremities. PSYCHIATRIC: No obvious anxiety/depression. no apparent hallucinations or other psychotic thought process. Diagnostic Tests Laboratory Laboratory Tests Test 11/16/16 11/17/16 05:52 04:56 White Blood Count 6.5 TH/MM3 8.8 TH/MM3 (4.0-11.0) (4.0-11.0) Red Blood Count 3.89 MIL/MM3 3.73 MIL/MM3 (4.00-5.30) (4.00-5.30) Hemoglobin 12.1 GM/DL 11.5 GM/DL (11.6-15.3) (11.6-15.3) Hematocrit 35.9 % 34.6 % (35.0-46.0) (35.0-46.0) Mean Corpuscular Volume 92.2 FL 92.7 FL (80.0-100.0) (80.0-100.0) Mean Corpuscular Hemoglobin 31.2 PG 30.7 PG (27.0-34.0) (27.0-34.0) Mean Corpuscular Hemoglobin 33.8 % 33.2 % Concent (32.0-36.0) (32.0-36.0) Red Cell Distribution Width 17.5 % 16.8 % (11.6-17.2) (11.6-17.2) Platelet Count 102 TH/MM3 105 TH/MM3 (150-450) (150-450) Mean Platelet Volume 9.4 FL 9.8 FL (7.0-11.0) (7.0-11.0) Neutrophils (%) (Auto) 82.7 % 80.2 % (16.0-70.0) (16.0-70.0) Lymphocytes (%) (Auto) 7.8 % 10.1 % (9.0-44.0) (9.0-44.0) Monocytes (%) (Auto) 7.8 % (0.0-8.0) 9.0 % (0.0-8.0) Eosinophils (%) (Auto) 1.0 % (0.0-4.0) 0.2 % (0.0-4.0) Basophils (%) (Auto) 0.7 % (0.0-2.0) 0.5 % (0.0-2.0) Neutrophils # (Auto) 5.4 TH/MM3 7.1 TH/MM3 (1.8-7.7) (1.8-7.7) Lymphocytes # (Auto) 0.5 TH/MM3 0.9 TH/MM3 (1.0-4.8) (1.0-4.8) Monocytes # (Auto) 0.5 TH/MM3 0.8 TH/MM3 (0-0.9) (0-0.9) Eosinophils # (Auto) 0.1 TH/MM3 0.0 TH/MM3 (0-0.4) (0-0.4) Basophils # (Auto) 0.0 TH/MM3 0.0 TH/MM3 (0-0.2) (0-0.2) CBC Comment DIFF FINAL DIFF FINAL Differential Comment Sodium Level 140 MEQ/L 139 MEQ/L (136-145) (136-145) Potassium Level 3.8 MEQ/L 3.6 MEQ/L (3.5-5.1) (3.5-5.1) Chloride Level 109 MEQ/L 106 MEQ/L (98-107) (98-107) Carbon Dioxide Level 22.2 MEQ/L 23.9 MEQ/L (21.0-32.0) (21.0-32.0) Anion Gap 9 MEQ/L (5-15) 9 MEQ/L (5-15) Blood Urea Nitrogen 7 MG/DL (7-18) 12 MG/DL (7-18) Creatinine 0.78 MG/DL 1.12 MG/DL (0.50-1.00) (0.50-1.00) Estimat Glomerular Filtration 94 ML/MIN (>89) 62 ML/MIN (>89) Rate Random Glucose 93 MG/DL 66 MG/DL (74-106) (74-106) Calcium Level 7.4 MG/DL 7.4 MG/DL (8.5-10.1) (8.5-10.1) Protein Corrected Calcium 7.7 MG/DL 7.6 MG/DL (8.5-10.1) (8.5-10.1) Magnesium Level 2.1 MG/DL 2.0 MG/DL (1.5-2.5) (1.5-2.5) Total Protein 6.5 GM/DL 6.7 GM/DL (6.4-8.2) (6.4-8.2) Result Diagram: 11/17/16 0456 11/17/16 0456 Patient/Family Conference Issues Discussed: * Palliative care role, purpose, approach * Additional medical, psychosocial, and spiritual history * Patients general health, functional status, and cognitive changes in the months leading up to the current hospitalization * Patient/family understanding of the current medical problems * Patient/family understanding of prognosis * Patients goals of care as best understood from advance directives and/or conversations and/or values * Current medical treatment options and benefits/burdens of those options * Likely scenarios comparing ongoing aggressive care with a transition to comfort measures only * Questions answered to the best of my ability * Palliative care contact information provided Assessment and Plan Pertinent Non-Medical Issues Psychosocial: Spiritual: Legal: Ethical issues impacting care: Thank you for the opportunity to participate in the care of Ms. Helm. Attestation To help prompt me to consider important information that might be impacting today's encounter and assessment, information from prior notes written by myself or my colleagues may have been "brought forward" into today's note. My signature on this note, however, is an attestation that I personally performed the exam, history, and/or decision-making noted today, and, unless otherwise indicated, the interactions with patient, family, and staff as well as the review of records all occurred today. I also attest that the listed assessment and stated plan reflect my best clinical judgment today based on the combination of historical information, prior notes, and today's exam/ interactions. When time spent is documented, it refers only to time spent today by the signer, or if indicated, combined time spent today by collaborating physician/nurse practitioner. . JONAH SMALLWOOD Nov 18, 2016 14:58
--- NOTE | 2016-11-18 15:15 | RADRPT ---
EXAM DATE/TIME: 11/18/2016 14:32 [facility] COMPARISON: No previous studies available for comparison. INDICATIONS : Right arm swelling and pain. MEDICAL HISTORY : Scabies. Seizures. Cirrhosis. Cerebrovascular accident. Liver disease. HIV. Ectopic . Subst ance abuse. SURGICAL HISTORY : section. Exploratory laparotomy. ENCOUNTER: Initial ACUITY: 1 day PAIN SCORE: 5/10 LOCATION: Right arm. FINDINGS: There is spontaneous flow documented in the brachial, basilic, cephalic, axillary, and subclavian vei ns. The vessels are compressible and augmentation response is documented. No filling defects are se en. The flow is phasic with respiration. Direction of flow in the jugular vein is caudal. Edema is noted in the right arm. CONCLUSION: Soft tissue edema with no evidence of deep venous thrombosis. Rad Cueto MD on November 18, 2016 at 15:13 Board Certified Radiologist. This report was verified electronically.
--- NOTE | 2016-11-18 17:24 | PD.CONS ---
Consult Service Palliative Care Consult Requested By Dr. Paresh Garcia Primary Care Physician Jeremiah Garcia MD Reason for Consultation a. To assist with evaluation and management of symptoms including: decreased appetite, dysphagia. b. To assist medical decision maker(s) with: better understanding of current medical conditions; weighing benefits/burdens of medical treatment options; making medical treatment decisions. . HPI History of Present Illness History significant for but not limited to HIV CD4 count less than (20 on 2016) , GI bleed, stroke, ascites, cirrhosis, gastritis, cachexia was brought into the emergency department for increasing abdominal pain and worsening ascites on 11/12/2016. Patient has had several visits to [facility] for paracentesis every 2-3 weeks patient stated that she has had abdominal distention for a few months. She has stated she has also been noncompliant with her HIV medication, and follow-up appointments with HIV doctor. The ER: * Temperature is 97.8, pulse is 74, respirations 16, blood pressures 180/64, pulse ox is 95% * Sodium is 1:30, potassium 2.9, chloride is 104, bicarbonate is 29.5, BUN is 5 , creatinine 0.71, calcium 6.8, * AST is 44, ALT is 55, alkaline phosphatase is 146, albumin is 1.0 * WBC is 6.3, H&H is 8.1 and 24.1, platelet is 125 * PT is 15.9, INR is 1.4, PTT 24.6 * Abdominal x-ray shows small bowel ileus without evidence of pathological distention Patient was admitted for worsening ascites, hypocalcemia hypokalemia, and care was transferred to Hospital services. 11/13/2016 infectious disease was consulted. She display some forgetfulness so a brain MRI was ordered. Patient was started on Diflucan and agree to a swallowing eval. GI was also consulted CT of the abdomen and pelvis is ordered, paracentesis was ordered, agree with starting Diflucan 11/14/2016. Brain MRI shows no acute findings. There is a lacunar infarction the jered and unchanged since 2012. CTA is negative for pulmonary embolism. There is bilateral lower lobe consolidation and bilateral pleural effusion, left or severity of the right. Patient is found to be more awake and alert and able to eat and display much more understanding then initial presentation per hospitalist note. Patient however had elevated troponins I 0.09, 1.39, 1.78. Cardiology consulted echo ordered. Patient's ejection fraction was 60%. Wall thickness was normal. There is mild regurgitation of mitral valve, bowel regurgitation of tricuspid valve. Mild basal septal hypertrophy. Patient has some nausea. Cardiology saw patient and in discussion with patient, patient elected medical management. Cardiology also noted concern for history of noncompliance, and other significant medical condition including gastric varices, coagulopathy, cirrhosis, and anemia. Patient denies recent cocaine usage. CT of the abdomen and pelvis shows cirrhotic liver with large amount of ascites. There are varices in the left upper quadrant around the spleen. Mild bilateral pleural effusion with accompanying atelectasis or consolidation and a basis. Bremer was seen in the right middle lobe. 11/15/2016 patient field belly is distended with some diffuse pain. Cardiology continued to follow. Patient continued to be treated for esophagitis Eva. 11/16- continued to complain of dysphagia, and decreased appetite. GI procedures was not advised. Palliative care was consulted due to cachexia, failure to thrive, debility, and progression of patient's cirrhosis and HIV. 11/18/2016, on my visit patient was oriented to person place and time. Patient was able to remember that she came in because of worsening abdominal pain. She is able to tell me she has an HIV doctor that she has not been following. At the very least able to display knowledge of the her baseline medical condition. Appears pt mentation was poor on initial hospitalization, but has rebounded. Had conversation with patient, reviewed her various comorbidities and condition including HIV/ AIDs non compliance, her cirrhosis which meets hospice criteria for ES (INR 1.4 and Albumin 1.0). Talk to patient about code status, witnessed by nurse and elected DNR. She completed HCS form designating Grant Ruelas as HCS. Brandon Munoz as alternate Brought up Hospice. Will set up family meeting tomorrow with HCS and patient., anticipated time unknow, she say she will call. Function/Cognitive Trajectory Weak, getting dyspneic on exertion. Review of Systems Constitutional: COMPLAINS OF: Fatigue, Weight loss, Pain (abdominal) Cardiovascular: COMPLAINS OF: Dyspnea on Exertion Gastrointestinal: COMPLAINS OF: Diarrhea, Nausea, Vomiting, Difficulty Swallowing Musculoskeletal: COMPLAINS OF: Muscle aches Past Family Social History Coded Allergies: No Known Allergies (Verified , 11/12/16) Past Medical History Esophageal stricture Schatzki's ring Gastritis Colitis Colonic polyps Diarrhea related to retrovirals HIV CVA Ascites Cirrhosis Malnutrition . Past Surgical History Exploratory laparotomy Surgery for Ectopic EGD/Colonoscopy . Reported Medications magic mouthwash. HIV meds non compliant, and has not have follow up. Current Medications Medications (Trade) Dose Ordered Sig/Sue Route Start Time Stop Time Status Last Admin (NS Flush) 2 ml UNSCH PRN IV FLUSH 11/12/16 11:45 (NS Flush) 2 ml BID IV FLUSH 11/12/16 21:00 11/18/16 09:00 (Tylenol) 650 mg Q4H PRN PO 11/12/16 11:45 11/18/16 03:40 (Zofran Inj) 4 mg Q6H PRN IVP 11/12/16 11:45 (Colace) 100 mg Q12H PO 11/12/16 12:00 11/17/16 11:19 (Milk Of Magnesia Liq) 30 ml Q12H PRN PO 11/12/16 11:45 Enoxaparin Sodium 40 mg 40 mg Q24H SQ 11/12/16 12:00 11/18/16 11:28 (Diflucan 100 Mg Premix Bag) 50 ml @ 50 mls/hr Q24H IV 11/12/16 14:45 11/18/16 14:26 (Magic Mouthwash Adult Liq) 5 ml QID SWISH-SWAL 11/12/16 18:00 11/18/16 14:27 (Tums Chew) 500 mg Q12HR CHEW 11/13/16 12:00 11/18/16 08:59 (Protonix Inj) 40 mg Q12H IV PUSH 11/13/16 16:15 11/18/16 03:36 (Morphine Inj) 2 mg Q3H PRN IV PUSH 11/14/16 08:15 Aspirin 81 mg 81 mg DAILY CHEW 11/15/16 09:00 11/18/16 09:01 (1/2 NS 1000 ml Inj) 1,000 ml @ 60 mls/hr [id number] IV 11/14/16 14:15 11/18/16 00:46 (Lasix Inj) 20 mg DAILY IV PUSH 11/15/16 09:00 11/18/16 11:29 (D50w (Vial) Inj) 25 ml UNSCH PRN IV PUSH 11/18/16 07:45 (Glucagon Inj) 1 mg UNSCH PRN OTHER 11/18/16 07:45 (Aldactone) 25 mg DAILY PO 11/18/16 09:00 11/18/16 09:06 Substance Use Tobacco:history, but stopped smoking recently. Alcohol:occasional Prescription med abuse:no Illicits:hx of cocaine use. Psychosocial History Lives with significant other, never . Father still alive. 17 siblings. Spiritual/Cultural Factors [facility] Surrogate: Copy in medical record Health Care Surrogate(s): Primary: Grant Ruelas ([facility]) [phone] Brandon Munoz ( significant other/ not legally ). [phone] Today's verbally stated goals: "I wanted to go home." Physical Exam Vital Signs Date Time Temp Pulse Resp B/P Pulse Ox O2 Delivery O2 Flow Rate FiO2 11/18/16 15:30 96.4 85 20 132/79 97 11/18/16 11:50 95.5 84 20 119/80 100 11/18/16 07:50 96.6 82 20 122/83 99 11/18/16 03:53 96.7 88 16 110/78 98 11/18/16 01:30 97.9 96 18 103/69 96 11/17/16 21:30 98.8 90 18 117/75 98 11/17/16 20:00 102 11/17/16 11/18/16 19:00 07:00 Intake Total 60 ml 960 ml Balance 60 ml 960 ml Intake Oral 60 ml 960 ml # Voids 4 2 # Bowel Movements 1 Exam CONSTITUTIONAL/GENERAL: This is a cachetic middle age female. TUBES/LINES/DRAINS:iv, . SKIN: No jaundice, some rashes HEAD: Atraumatic. Normocephalic. EYES: Pupils equal and round and reactive. Extraocular motions intact. No scleral icterus. No injection or drainage. Fundi not examined. ENT: Hearing grossly normal. Nose without bleeding or purulent drainage. Throat without visible erythema, exudates, masses, or lesions. NECK: Trachea midline. Supple, nontender. No palpable thyroid enlargement or nodularity. CARDIOVASCULAR: Regular rate and rhythm without murmurs, gallops, or rubs. No JVD. Peripheral pulses symmetric. RESPIRATORY/CHEST: Symmetric, unlabored respirations. Clear to auscultation. Breath sounds equal bilaterally. No wheezes, rales, or rhonchi. GASTROINTESTINAL: Abdomen soft, non-tender, distended, fluid wave. . GENITOURINARY: Without palpable bladder distension. MUSCULOSKELETAL: Extremities without clubbing, cyanosis, or edema. No joint tenderness or effusion noted. No calf tenderness. No mottling or clubbing. LYMPHATICS: No palpable cervical or supraclavicular adenopathy. NEUROLOGICAL: Awake and alert. Motor and sensory grossly within normal limits. Follows commands. Cognitively sharp. At times stoic. PSYCHIATRIC: No obvious anxiety/depression. no apparent hallucinations or other psychotic thought process. Diagnostic Tests Laboratory Laboratory Tests Test 11/16/16 11/17/16 05:52 04:56 White Blood Count 6.5 TH/MM3 8.8 TH/MM3 (4.0-11.0) (4.0-11.0) Red Blood Count 3.89 MIL/MM3 3.73 MIL/MM3 (4.00-5.30) (4.00-5.30) Hemoglobin 12.1 GM/DL 11.5 GM/DL (11.6-15.3) (11.6-15.3) Hematocrit 35.9 % 34.6 % (35.0-46.0) (35.0-46.0) Mean Corpuscular Volume 92.2 FL 92.7 FL (80.0-100.0) (80.0-100.0) Mean Corpuscular Hemoglobin 31.2 PG 30.7 PG (27.0-34.0) (27.0-34.0) Mean Corpuscular Hemoglobin 33.8 % 33.2 % Concent (32.0-36.0) (32.0-36.0) Red Cell Distribution Width 17.5 % 16.8 % (11.6-17.2) (11.6-17.2) Platelet Count 102 TH/MM3 105 TH/MM3 (150-450) (150-450) Mean Platelet Volume 9.4 FL 9.8 FL (7.0-11.0) (7.0-11.0) Neutrophils (%) (Auto) 82.7 % 80.2 % (16.0-70.0) (16.0-70.0) Lymphocytes (%) (Auto) 7.8 % 10.1 % (9.0-44.0) (9.0-44.0) Monocytes (%) (Auto) 7.8 % (0.0-8.0) 9.0 % (0.0-8.0) Eosinophils (%) (Auto) 1.0 % (0.0-4.0) 0.2 % (0.0-4.0) Basophils (%) (Auto) 0.7 % (0.0-2.0) 0.5 % (0.0-2.0) Neutrophils # (Auto) 5.4 TH/MM3 7.1 TH/MM3 (1.8-7.7) (1.8-7.7) Lymphocytes # (Auto) 0.5 TH/MM3 0.9 TH/MM3 (1.0-4.8) (1.0-4.8) Monocytes # (Auto) 0.5 TH/MM3 0.8 TH/MM3 (0-0.9) (0-0.9) Eosinophils # (Auto) 0.1 TH/MM3 0.0 TH/MM3 (0-0.4) (0-0.4) Basophils # (Auto) 0.0 TH/MM3 0.0 TH/MM3 (0-0.2) (0-0.2) CBC Comment DIFF FINAL DIFF FINAL Differential Comment Sodium Level 140 MEQ/L 139 MEQ/L (136-145) (136-145) Potassium Level 3.8 MEQ/L 3.6 MEQ/L (3.5-5.1) (3.5-5.1) Chloride Level 109 MEQ/L 106 MEQ/L (98-107) (98-107) Carbon Dioxide Level 22.2 MEQ/L 23.9 MEQ/L (21.0-32.0) (21.0-32.0) Anion Gap 9 MEQ/L (5-15) 9 MEQ/L (5-15) Blood Urea Nitrogen 7 MG/DL (7-18) 12 MG/DL (7-18) Creatinine 0.78 MG/DL 1.12 MG/DL (0.50-1.00) (0.50-1.00) Estimat Glomerular Filtration 94 ML/MIN (>89) 62 ML/MIN (>89) Rate Random Glucose 93 MG/DL 66 MG/DL (74-106) (74-106) Calcium Level 7.4 MG/DL 7.4 MG/DL (8.5-10.1) (8.5-10.1) Protein Corrected Calcium 7.7 MG/DL 7.6 MG/DL (8.5-10.1) (8.5-10.1) Magnesium Level 2.1 MG/DL 2.0 MG/DL (1.5-2.5) (1.5-2.5) Total Protein 6.5 GM/DL 6.7 GM/DL (6.4-8.2) (6.4-8.2) Result Diagram: 11/17/166 11/17/166 Imaging Last Impressions Upper Extremity Ultrasound 11/18/16 0000 Signed Impressions: Service Date/Time: October 14:32 - CONCLUSION: Soft tissue edema with no evidence of deep venous thrombosis. Rad Cueto MD Cyst Biopsy Asp-Paracentesis US 11/15/16 0000 Signed Impressions: Service Date/Time: Tuesday, November 15, 2016 08:47 - CONCLUSION: Uncomplicated ultrasound guided paracentesis. Grant Villasenor MD CT Angiography 11/14/16 0000 Signed Impressions: Service Date/Time: Monday, November 14, 2016 17:44 - CONCLUSION: 1. The study is negative for pulmonary embolism. 2. Bilateral lower lobe consolidation and bilateral pleural effusions, left more severe than right. Jose Long MD Brain MRI 11/14/16 0000 Signed Impressions: Service Date/Time: Monday, November 14, 2016 17:17 - CONCLUSION: No acute findings in the brain. Lacunar infarcts in the jered, unchanged from 2013. Jose Long MD Abdomen/Pelvis CT 11/14/16 0000 Signed Impressions: Service Date/Time: Monday, November 14, 2016 08:14 - CONCLUSION: 1. Cirrhotic liver with a large amount of ascites. There are varices in the left upper quadrant around the spleen. 2. Mild bilateral pleural effusions with accompanying atelectasis or consolidation at the lung bases. 3. Small nodule seen in the right middle lobe region on the first image obtained. This was present on a prior CTA from 08/20/2015. Nelson Pinon MD Abdomen X-Ray 11/12/16 0729 Signed Impressions: Service Date/Time: Saturday, November 12, 2016 07:53 - CONCLUSION: Small bowel ileus without evidence of pathologic distention. No evidence of free air or significant mass effect.. Yaya Guzman MD Patient/Family Conference Present at Family Conference: patient Family Conference Time (mins): 40 Family Conference Location: Bedside Issues Discussed: * Palliative care role, purpose, approach * Additional medical, psychosocial, and spiritual history * Patients general health, functional status, and cognitive changes in the months leading up to the current hospitalization * Patient/family understanding of the current medical problems * Patient/family understanding of prognosis * Patients goals of care as best understood from advance directives and/or conversations and/or values * Current medical treatment options and benefits/burdens of those options * Likely scenarios comparing ongoing aggressive care with a transition to comfort measures only * Questions answered to the best of my ability * Palliative care contact information provided Assessment and Plan Disease Oriented Problem List: (1) Dysphagia (2) Colitis (3) Chronic gastritis (4) Ascites (5) Abdominal pain (6) HIV (human immunodeficiency virus infection) (7) Elevated troponin (8) Severe protein-calorie malnutrition Symptom Scale: (1) Decrease in appetite 0-10 Scale: Unable to quantify (2) Dysphagia 0-10 Scale: Unable to quantify Pertinent Non-Medical Issues Psychosocial: Spiritual: Legal: Ethical issues impacting care: Important Contacts Grant Ruelas [phone] Brandon Munoz [phone] Prognosis 51 year old with HIV, CD 4 less than 20. In addition has cirrohsis Albumin 1.0 to 0.8, and PT of 1.4. Also have likely [place]. Given pt's hx of non compliance ans substance abuse, prognosis is less than 6 months. Code Status: No Code Plan == capacity- pt has capacity to make medical condition on my visit. I suspect earlier she did not have capacity, and it fluctuates, but she was clear. Display understanding of why she came, AOx 3. == Code: DNR == Goals. Evolving. Had conversation with patient, reviewed her various comorbidities and condition including HIV/ AIDs non compliance, her cirrhosis which meets hospice criteria for ES (INR 1.4 and Albumin 1.0). Talk to patient about code status, witnessed by nurse and elected DNR. She completed HCS form designating Grant Ruelas as HCS. Brandon Munoz as alternate Brought up Hospice, and offer transition to comfort care. Will set up family meeting tomorrow with HCS and patient., anticipated time unknown, she say she will call [facility] to find out, when he will arrive to the hospital. Verbally she stated "I want to go home." ==dyphagia- esophagitis, no med rec. ==decrease in appeite- multi factorial, general decline form HIV and cirrohsis, bowel obstruction == pain- ascites- seem to have resolved for the time being. == palliative care will follow up. Time Spent Total Floor Time (mins): 70 Face to Face Time (mins): 46 >50% Counseling/Coord of Care: Yes Thank you for the opportunity to participate in the care of Ms. Helm. Attestation To help prompt me to consider important information that might be impacting today's encounter and assessment, information from prior notes written by myself or my colleagues may have been "brought forward" into today's note. My signature on this note, however, is an attestation that I personally performed the exam, history, and/or decision-making noted today, and, unless otherwise indicated, the interactions with patient, family, and staff as well as the review of records all occurred today. I also attest that the listed assessment and stated plan reflect my best clinical judgment today based on the combination of historical information, prior notes, and today's exam/ interactions. When time spent is documented, it refers only to time spent today by the signer, or if indicated, combined time spent today by collaborating physician/nurse practitioner. Praneeth Fuchs MD Nov 18, 2016 17:24
[2016-11-19] VITALS (7 sets, daily range): BP systolic 112–140; BP diastolic 73–91; PULSE 83–91; RESP 16–22; TEMP 97.5–99.4; O2SAT 93–100
[2016-11-19] MEDS: PANTOPRAZOLE SODIUM 40 MG VIAL IV PUSH SCH ×2 (04:07→14:12)
[2016-11-19 07:09] LABS: AUTOMATED NEUTROPHIL # 4.4 TH/MM3 (1.8-7.7); BASOPHIL % 0.8 % (0.0-2.0); EOSINOPHIL % 0.1 % (0.0-4.0); HEMATOCRIT 34.9 % (35.0-46.0); LYMPH % 7.1 % (9.0-44.0); LYMPHOCYTE # 0.4 TH/MM3 (1.0-4.8); MEAN CELL VOLUME 93.4 FL (80.0-100.0); MEAN CORPUSCULAR HEMOGLOBIN 30.6 PG (27.0-34.0); MEAN CORPUSCULAR HGB CONC 32.8 % (32.0-36.0); PLATELET COUNT 86 TH/MM3 (150-450); RED BLOOD COUNT 3.74 MIL/MM3 (4.00-5.30); RED CELL DISTRIBUTION WIDTH 17.2 % (11.6-17.2); WHITE BLOOD COUNT 5.4 TH/MM3 (4.0-11.0)
--- NOTE | 2016-11-19 07:29 | HHI.PR ---
Subjective Remarks In bed. Says she has less abdominal pain. No fever or chills. No n/v/d/c. Patient is eating some. Wants to go home. Labs pending. Has a meeting with palliative care and simin , she is considering hospice. Objective Vitals Vital Signs Date Time Temp Pulse Resp B/P Pulse Ox O2 Delivery O2 Flow Rate FiO2 11/19/16 04:00 98.0 90 17 115/82 97 11/19/16 00:00 98.3 83 16 130/73 96 11/18/16 21:23 83 11/18/16 20:11 84 11/18/16 20:00 97.3 88 17 113/81 98 11/18/16 15:30 96.4 85 20 132/79 97 11/18/16 11:50 95.5 84 20 119/80 100 11/18/16 07:50 96.6 82 20 122/83 99 I/O 11/18/16 11/18/16 11/18/16 11/19/16 11/19/16 11/19/16 07:00 15:00 23:00 07:00 15:00 23:00 Intake Total 480 ml 281 ml 1140 ml 480 ml Balance 480 ml 281 ml 1140 ml 480 ml Intake Oral 480 ml 281 ml 480 ml 480 ml IV Total 660 ml # Voids 1 4 2 2 # Bowel Movements 1 0 0 Result Diagram: 11/17/16 0456 11/17/16 0456 Imaging Last Impressions Upper Extremity Ultrasound 11/18/16 0000 Signed Impressions: Service Date/Time: October 14:32 - CONCLUSION: Soft tissue edema with no evidence of deep venous thrombosis. Rad Cueto MD Cyst Biopsy Asp-Paracentesis US 11/15/16 0000 Signed Impressions: Service Date/Time: Tuesday, November 15, 2016 08:47 - CONCLUSION: Uncomplicated ultrasound guided paracentesis. Grant Villasenor MD CT Angiography 11/14/16 0000 Signed Impressions: Service Date/Time: Monday, November 14, 2016 17:44 - CONCLUSION: 1. The study is negative for pulmonary embolism. 2. Bilateral lower lobe consolidation and bilateral pleural effusions, left more severe than right. Jose Long MD Brain MRI 11/14/16 0000 Signed Impressions: Service Date/Time: Monday, November 14, 2016 17:17 - CONCLUSION: No acute findings in the brain. Lacunar infarcts in the jered, unchanged from 2013. Jose Long MD Abdomen/Pelvis CT 11/14/16 0000 Signed Impressions: Service Date/Time: Monday, November 14, 2016 08:14 - CONCLUSION: 1. Cirrhotic liver with a large amount of ascites. There are varices in the left upper quadrant around the spleen. 2. Mild bilateral pleural effusions with accompanying atelectasis or consolidation at the lung bases. 3. Small nodule seen in the right middle lobe region on the first image obtained. This was present on a prior CTA from 08/20/2015. Nelson Pinon MD Abdomen X-Ray 11/12/16 0729 Signed Impressions: Service Date/Time: Saturday, November 12, 2016 07:53 - CONCLUSION: Small bowel ileus without evidence of pathologic distention. No evidence of free air or significant mass effect.. Yaya Guzman MD Objective Remarks GENERAL: This is a cachectic appearing, very thin patient, in no apparent distress. SKIN: No rashes, ecchymoses or lesions. Cool and dry. Nursing indicated the presence of generalized scabies, but this was not readily apparent. HEAD: Bitemporal sunken,muscle waiting. Atraumatic. Normocephalic. No temporal or scalp tenderness. EYES: Pupils equal round and reactive. Extraocular motions intact. No scleral icterus. No injection or drainage. ENT: Nose without bleeding, purulent drainage or septal hematoma. Throat without erythema, tonsillar hypertrophy. Tara noted on tongue. Uvula midline. Airway patent. NECK: Trachea midline. No JVD or lymphadenopathy. Supple, nontender, no meningeal signs. CARDIOVASCULAR: Regular rate and rhythm without murmurs, gallops, or rubs. RESPIRATORY: Clear to auscultation. Breath sounds equal bilaterally. No wheezes , rales, or rhonchi. GASTROINTESTINAL: Abdomen is distended, nontender, +BS x4Q . No guarding. Dullness heard upon palpation. MUSCULOSKELETAL: Weak exhibition designer. Muscle waisting. Extremities without clubbing, cyanosis, or edema. No joint tenderness, effusion, or edema noted. No calf tenderness. Negative Homans sign bilaterally. Muscle tone and mass is noted to be decreased. NEUROLOGICAL: Awake, alert and oriented x3. Cranial nerves II through XII intact. Motor and sensory grossly within normal limits. Five out of 5 muscle strength in all muscle groups. Normal speech. A/P Assessment and Plan Severe symptomatic Hypocalcemia. Persistent Severe symptomatic Hypokalemia Received Ca gluconate in the ED and KCL IV Give another Ca gluconate IV 11/14 Repeat BMP Replenish electrolytes. HIV positive. 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 On fluconazole and magic wash as above -Discussed with cardiology dr Jerry patient is at moderate/severe risk for GI procedures and not adviced. NSTEMI \. Elevated troponin. Patient c/o chest pain 11/13 at night. Troponin trending up. Cardiology consulted. I discussed with Dr Chet Jerry cardiology . Patient decided for medical management and non invasive procedures. Patient also with elevated Ddimer, CTA to r/o PE is negative. 2D ECHO pending Right arm swelling do doppler US to r/o DVT. Patient with coagulopathy elevated INR, difficult to treat DVT Normocytic anemia, noted HGB drop to 7.6 and elevated troponin 11/14 to decreased the demand on heart. 11/14 transfuse 2 U PRBC . H/H stable after transfusion. Monitor. - Follow CBC Hypoalbuminemia, severe alb 0.8 -follow trend with labs Severe Protein calorie malnutrition, cachectic, muscle waisting, low albumin. Prealbumin 3. Alb 0.8. Add ensure, protein. Consult head shipper. Discussed with the patient and the nurse, family at bedside. Palliative care consult, for goals of care, patient is deteriorating, poor prognosis. Kassidy Terry MD Nov 19, 2016 07:29
[2016-11-19 07:32] LABS: HEMO FLAGS AUTO DIFF
[2016-11-19 07:51] LABS: BICARBONATE 23.7 MEQ/L (21.0-32.0); MAGNESIUM 1.9 MG/DL (1.5-2.5); POTASSIUM 3.7 MEQ/L (3.5-5.1)
[2016-11-19] MEDS: CALCIUM CARBONATE 500 MG CHEWABLE TAB CHEW SCH ×2 (07:53→21:00)
[2016-11-19] MEDS: FUROSEMIDE 20 MG/2 ML VIAL IV PUSH SCH (07:53)
[2016-11-19] MEDS: ASPIRIN 81 MG CHEW TAB CHEW SCH (07:54)
[2016-11-19] MEDS: NYSTAT/DIPHENHY/LIDO MOUTHWASH (Adult) 120ML SWISH-SWAL SCH ×4 (07:55→21:00)
[2016-11-19] MEDS: SODIUM CHLOR 0.45% 1000 ML INJ 1,000 ML IV SCH (07:55)
[2016-11-19] MEDS: SPIRONOLACTONE 25 MG TAB PO SCH (07:55)
[2016-11-19] MEDS: SODIUM CHLORIDE 0.9% FLUSH 10 ML FLUSH IV FLUSH SCH ×2 (07:55→21:00)
[2016-11-19 08:39] LABS: BANDS 1 % (0-6); NEUTROPHIL # MANUAL DIFF 5.1 TH/MM3 (1.8-7.7); POLYS (SEG NEUTROPHILS) 94 % (16-70); WBC DIFF SAMPLE 100
[2016-11-19 08:41] LABS: OVALOCYTES 1+ (NORMAL); PLATELET ESTIMATE SMEAR LOW (NORMAL); PLATELET MORPHOLOGY NORMAL (NORMAL); SCAN/DIFF FINAL DIFF MANUAL
[2016-11-19] MEDS: DOCUSATE SODIUM 100 MG CAP PO SCH ×2 (11:55)
[2016-11-19] MEDS: FLUCONAZOLE 100 MG PREMIX BAG 50 ML IV SCH (14:12)
--- NOTE | 2016-11-19 18:30 | HHI.HCPN ---
Reason for visit a. To assist with evaluation and management of symptoms including: decreased appetite, dysphagia. b. To assist medical decision maker(s) with: better understanding of current medical conditions; weighing benefits/burdens of medical treatment options; making medical treatment decisions. . Subjective/Interval History Pt is alert and oriented. Pt's nephew will not be coming to family meeting. I have asked pt, in the future will it be okay for the medical team to speak about your HIV status to your designated HCS and Alternate HCS. She said yes. Reviewed her prognosis, offered hospice and the service it will cover. Told her she can go home with Hospice services. She declined. She did signed a community DNR. Copy of DNR and HCS disignation was given to patient. Family/friend interactions Nephew did not show up to family meeting and could not come today. Advance Directives Health Care Surrogate: Copy in medical record Advance Directive Specifics Health Care Surrogate(s): Primary: Grant Ruelas ([place]) [phone] Brandon Munoz ( significant other/ not legally ). [phone] Objective Vital Signs Date Time Temp Pulse Resp B/P Pulse Ox O2 Delivery O2 Flow Rate FiO2 11/19/16 12:00 97.7 86 20 131/75 93 11/19/16 08:00 97.7 86 22 112/79 94 11/19/16 04:00 98.0 90 17 115/82 97 11/19/16 00:00 98.3 83 16 130/73 96 11/18/16 21:23 83 11/18/16 20:11 84 11/18/16 20:00 97.3 88 17 113/81 98 Intake & Output 11/19/16 11/19/16 07:00 19:00 Intake Total 960 ml 360 ml Balance 960 ml 360 ml Intake Oral 960 ml 360 ml # Voids 4 3 # Bowel Movements 0 Physical Exam CONSTITUTIONAL/GENERAL: This is a cachetic middle age female. TUBES/LINES/DRAINS:iv, . SKIN: No jaundice, some rashes HEAD: Atraumatic. Normocephalic. EYES: Pupils equal and round and reactive. Extraocular motions intact. No scleral icterus. No injection or drainage. Fundi not examined. ENT: Hearing grossly normal. Nose without bleeding or purulent drainage. Throat without visible erythema, exudates, masses, or lesions. NECK: Trachea midline. Supple, nontender. No palpable thyroid enlargement or nodularity. CARDIOVASCULAR: Regular rate and rhythm without murmurs, gallops, or rubs. No JVD. Peripheral pulses symmetric. RESPIRATORY/CHEST: Symmetric, unlabored respirations. Clear to auscultation. Breath sounds equal bilaterally. No wheezes, rales, or rhonchi. GASTROINTESTINAL: Abdomen soft, non-tender, distended, fluid wave. . GENITOURINARY: Without palpable bladder distension. MUSCULOSKELETAL: Extremities without clubbing, cyanosis, or edema. No joint tenderness or effusion noted. No calf tenderness. No mottling or clubbing. LYMPHATICS: No palpable cervical or supraclavicular adenopathy. NEUROLOGICAL: Awake and alert. Motor and sensory grossly within normal limits. Follows commands. Cognitively sharp. At times stoic. PSYCHIATRIC: No obvious anxiety/depression. no apparent hallucinations or other psychotic thought process. Diagnostic Tests Laboratory Laboratory Tests Test 11/17/16 11/19/16 04:56 06:15 White Blood Count 8.8 TH/MM3 5.4 TH/MM3 (4.0-11.0) (4.0-11.0) Red Blood Count 3.73 MIL/MM3 3.74 MIL/MM3 (4.00-5.30) (4.00-5.30) Hemoglobin 11.5 GM/DL 11.4 GM/DL (11.6-15.3) (11.6-15.3) Hematocrit 34.6 % 34.9 % (35.0-46.0) (35.0-46.0) Mean Corpuscular Volume 92.7 FL 93.4 FL (80.0-100.0) (80.0-100.0) Mean Corpuscular Hemoglobin 30.7 PG 30.6 PG (27.0-34.0) (27.0-34.0) Mean Corpuscular Hemoglobin 33.2 % 32.8 % Concent (32.0-36.0) (32.0-36.0) Red Cell Distribution Width 16.8 % 17.2 % (11.6-17.2) (11.6-17.2) Platelet Count 105 TH/MM3 86 TH/MM3 (150-450) (150-450) Mean Platelet Volume 9.8 FL 9.7 FL (7.0-11.0) (7.0-11.0) Neutrophils (%) (Auto) 80.2 % 81.0 % (16.0-70.0) (16.0-70.0) Lymphocytes (%) (Auto) 10.1 % 7.1 % (9.0-44.0) (9.0-44.0) Monocytes (%) (Auto) 9.0 % (0.0-8.0) 11.0 % (0.0-8.0) Eosinophils (%) (Auto) 0.2 % (0.0-4.0) 0.1 % (0.0-4.0) Basophils (%) (Auto) 0.5 % (0.0-2.0) 0.8 % (0.0-2.0) Neutrophils # (Auto) 7.1 TH/MM3 4.4 TH/MM3 (1.8-7.7) (1.8-7.7) Lymphocytes # (Auto) 0.9 TH/MM3 0.4 TH/MM3 (1.0-4.8) (1.0-4.8) Monocytes # (Auto) 0.8 TH/MM3 0.6 TH/MM3 (0-0.9) (0-0.9) Eosinophils # (Auto) 0.0 TH/MM3 0.0 TH/MM3 (0-0.4) (0-0.4) Basophils # (Auto) 0.0 TH/MM3 0.0 TH/MM3 (0-0.2) (0-0.2) CBC Comment DIFF FINAL AUTO DIFF Differential Comment FINAL DIFF MANUAL Sodium Level 139 MEQ/L 140 MEQ/L (136-145) (136-145) Potassium Level 3.6 MEQ/L 3.7 MEQ/L (3.5-5.1) (3.5-5.1) Chloride Level 106 MEQ/L 108 MEQ/L (98-107) (98-107) Carbon Dioxide Level 23.9 MEQ/L 23.7 MEQ/L (21.0-32.0) (21.0-32.0) Anion Gap 9 MEQ/L (5-15) 8 MEQ/L (5-15) Blood Urea Nitrogen 12 MG/DL (7-18) 8 MG/DL (7-18) Creatinine 1.12 MG/DL 0.75 MG/DL (0.50-1.00) (0.50-1.00) Estimat Glomerular Filtration 62 ML/MIN (>89) 98 ML/MIN (>89) Rate Random Glucose 66 MG/DL 72 MG/DL (74-106) (74-106) Calcium Level 7.4 MG/DL 7.7 MG/DL (8.5-10.1) (8.5-10.1) Protein Corrected Calcium 7.6 MG/DL (8.5-10.1) Magnesium Level 2.0 MG/DL 1.9 MG/DL (1.5-2.5) (1.5-2.5) Total Protein 6.7 GM/DL (6.4-8.2) Differential Total Cells 100 Counted Neutrophils % (Manual) 94 % (16-70) Band Neutrophils % 1 % (0-6) Monocytes % 5 % (0-8) Neutrophils # (Manual) 5.1 TH/MM3 (1.8-7.7) Platelet Estimate LOW (NORMAL) Platelet Morphology Comment NORMAL (NORMAL) Ovalocytes 1+ (NORMAL) Result Diagram: 11/19/1615 11/19/16614 Imaging Last Impressions Upper Extremity Ultrasound 11/18/16 0000 Signed Impressions: Service Date/Time: October 14:32 - CONCLUSION: Soft tissue edema with no evidence of deep venous thrombosis. Rad Cueto MD Cyst Biopsy Asp-Paracentesis US 11/15/16 0000 Signed Impressions: Service Date/Time: Tuesday, November 15, 2016 08:47 - CONCLUSION: Uncomplicated ultrasound guided paracentesis. Grant Villasenor MD CT Angiography 11/14/16 0000 Signed Impressions: Service Date/Time: Monday, November 14, 2016 17:44 - CONCLUSION: 1. The study is negative for pulmonary embolism. 2. Bilateral lower lobe consolidation and bilateral pleural effusions, left more severe than right. Jose Long MD Brain MRI 11/14/16 0000 Signed Impressions: Service Date/Time: Monday, November 14, 2016 17:17 - CONCLUSION: No acute findings in the brain. Lacunar infarcts in the jered, unchanged from 2013. Jose Long MD Abdomen/Pelvis CT 11/14/16 0000 Signed Impressions: Service Date/Time: Monday, November 14, 2016 08:14 - CONCLUSION: 1. Cirrhotic liver with a large amount of ascites. There are varices in the left upper quadrant around the spleen. 2. Mild bilateral pleural effusions with accompanying atelectasis or consolidation at the lung bases. 3. Small nodule seen in the right middle lobe region on the first image obtained. This was present on a prior CTA from 08/20/2015. Nelson Pinon MD Abdomen X-Ray 11/12/16 0729 Signed Impressions: Service Date/Time: Saturday, November 12, 2016 07:53 - CONCLUSION: Small bowel ileus without evidence of pathologic distention. No evidence of free air or significant mass effect.. Yaya Guzman MD Assessment and Plan Disease Oriented Problem List: (1) Dysphagia (2) Colitis (3) Chronic gastritis (4) Ascites (5) Abdominal pain (6) HIV (human immunodeficiency virus infection) (7) Elevated troponin (8) Severe protein-calorie malnutrition Symptom Scale: (1) Decrease in appetite 0-10 Scale: Unable to quantify (2) Dysphagia 0-10 Scale: Unable to quantify Pertinent Non-Medical Issues Psychosocial: Spiritual: Legal: Ethical issues impacting care: Important Contacts Grant Ruelas [phone] Brandon Alexander [phone] Prognosis 51 year old with HIV, CD 4 less than 20. In addition has cirrohsis Albumin 1.0 to 0.8, and PT of 1.4. Also have likely AK. Given pt's hx of non compliance ans substance abuse, prognosis is less than 6 months. Code Status: No Code Plan == capacity- pt has capacity to make medical condition on my visit. I suspect earlier she did not have capacity, and it fluctuates, but she was clear. Display understanding of why she came, AOx 3. == Code: DNR == Goals. Pt is alert and oriented. Pt's nephew will not be coming to family meeting. I have asked pt, in the future will it be okay for the medical team to speak about your HIV status to your designated HCS and Alternate HCS. She said yes. Reviewed her prognosis, offered hospice and the service it will cover. Told her she can go home with Hospice services. She declined hospice. She did signed a community DNR. Copy of DNR and HCS disignation was given to patient. She said she wants to start back on HIV meds. Again reviwed her prognosis, regardless of HIV, but spoke about her liver. She declined hospice services. Goals is aggressive short of resuscitation. Declined hospice. ==dyphagia- esophagitis, no med rec. ==decrease in appeite- multi factorial, general decline form HIV and cirrohsis, bowel obstruction == pain- ascites- seem to have resolved for the time being. == palliative care will Follow as needed basis. Time Spent Total Floor Time (mins): 45 Face to Face Time (mins): 35 >50% Counseling/Coord of Care: Yes Attestation To help prompt me to consider important information that might be impacting today's encounter and assessment, information from prior notes written by myself or my colleagues may have been "brought forward" into today's note. My signature on this note, however, is an attestation that I personally performed the exam, history, and/or decision-making noted today, and, unless otherwise indicated, the interactions with patient, family, and staff as well as the review of records all occurred today. I also attest that the listed assessment and stated plan reflect my best clinical judgment today based on the combination of historical information, prior notes, and today's exam/ interactions. When time spent is documented, it refers only to time spent today by the signer, or if indicated, combined time spent today by collaborating physician/nurse practitioner. Praneeth Fuchs MD Nov 19, 2016 18:30
[2016-11-20] VITALS (8 sets, daily range): BP systolic 106–127; BP diastolic 71–91; PULSE 75–96; RESP 16–18; TEMP 96.8–100.4; O2SAT 95–100
[2016-11-20] MEDS: ACETAMINOPHEN 325 MG TAB PO PRN (00:11)
[2016-11-20] MEDS: SODIUM CHLOR 0.45% 1000 ML INJ 1,000 ML IV SCH ×2 (03:35→20:15)
[2016-11-20] MEDS: PANTOPRAZOLE SODIUM 40 MG VIAL IV PUSH SCH ×2 (05:21→16:24)
[2016-11-20] MEDS: ASPIRIN 81 MG CHEW TAB CHEW SCH (09:47)
[2016-11-20] MEDS: FUROSEMIDE 20 MG/2 ML VIAL IV PUSH SCH (09:47)
[2016-11-20] MEDS: SPIRONOLACTONE 25 MG TAB PO SCH (09:47)
[2016-11-20] MEDS: SODIUM CHLORIDE 0.9% FLUSH 10 ML FLUSH IV FLUSH SCH (09:47)
[2016-11-20] MEDS: CALCIUM CARBONATE 500 MG CHEWABLE TAB CHEW SCH (09:47)
[2016-11-20] MEDS: NYSTAT/DIPHENHY/LIDO MOUTHWASH (Adult) 120ML SWISH-SWAL SCH ×3 (09:47→18:00)
[2016-11-20] MEDS: DOCUSATE SODIUM 100 MG CAP PO SCH ×2 (11:58)
[2016-11-20] MEDS: FLUCONAZOLE 100 MG PREMIX BAG 50 ML IV SCH (16:24)
--- NOTE | 2016-11-20 20:35 | HHI.PR ---
Subjective Remarks Patient seen this morning. Sitting up in bed. Says she is feeling a little better. Doesn't think she could ever go home. Denies any chest pain or shortness of breath. Objective Vital Signs Date Time Temp Pulse Resp B/P Pulse Ox O2 Delivery O2 Flow Rate FiO2 11/20/16 18:22 97.9 75 18 124/91 97 11/20/16 13:07 97.0 88 18 121/84 95 11/20/16 10:05 87 11/20/16 09:14 96.8 78 16 124/84 97 11/20/16 04:00 98.1 85 16 106/71 97 11/20/16 00:00 100.4 90 17 124/84 97 I/O 11/19/16 11/19/16 11/19/16 11/20/16 11/20/16 11/20/16 07:00 15:00 23:00 07:00 15:00 23:00 Intake Total 480 ml 360 ml 480 ml 1200 ml Output Total 300 ml Balance 480 ml 360 ml 480 ml 900 ml Intake Oral 480 ml 360 ml 480 ml 480 ml IV Total 720 ml Output Urine Total 300 ml # Voids 2 3 1 1 # Bowel Movements 0 Result Diagram: 11/19/16 0615 11/19/16 0615 Imaging Last Impressions Upper Extremity Ultrasound 11/18/16 0000 Signed Impressions: Service Date/Time: October 14:32 - CONCLUSION: Soft tissue edema with no evidence of deep venous thrombosis. Rad Cueto MD Cyst Biopsy Asp-Paracentesis US 11/15/16 0000 Signed Impressions: Service Date/Time: Tuesday, November 15, 2016 08:47 - CONCLUSION: Uncomplicated ultrasound guided paracentesis. Grant Villasenor MD CT Angiography 11/14/16 0000 Signed Impressions: Service Date/Time: Monday, November 14, 2016 17:44 - CONCLUSION: 1. The study is negative for pulmonary embolism. 2. Bilateral lower lobe consolidation and bilateral pleural effusions, left more severe than right. Jose Long MD Brain MRI 11/14/16 0000 Signed Impressions: Service Date/Time: Monday, November 14, 2016 17:17 - CONCLUSION: No acute findings in the brain. Lacunar infarcts in the jered, unchanged from 2013. Jose Long MD Abdomen/Pelvis CT 11/14/16 0000 Signed Impressions: Service Date/Time: Monday, November 14, 2016 08:14 - CONCLUSION: 1. Cirrhotic liver with a large amount of ascites. There are varices in the left upper quadrant around the spleen. 2. Mild bilateral pleural effusions with accompanying atelectasis or consolidation at the lung bases. 3. Small nodule seen in the right middle lobe region on the first image obtained. This was present on a prior CTA from 08/20/2015. Nelson Pinon MD Abdomen X-Ray 11/12/16 0729 Signed Impressions: Service Date/Time: Saturday, November 12, 2016 07:53 - CONCLUSION: Small bowel ileus without evidence of pathologic distention. No evidence of free air or significant mass effect.. Yaya Guzman MD Objective Remarks GENERAL: cachectic 51-year-old female sitting up in bed. Appears comfortable. SKIN: Warm and dry. HEAD: Normocephalic. EYES: No scleral icterus. No injection or drainage. NECK: Supple, trachea midline. No JVD or lymphadenopathy. CARDIOVASCULAR: Regular rate and rhythm without murmurs, gallops, or rubs. RESPIRATORY: Breath sounds equal bilaterally. No accessory muscle use. GASTROINTESTINAL: Abdomen soft, non-tender, nondistended.ascites. No rebound or guarding MUSCULOSKELETAL: No cyanosis, or edema. BACK: Nontender without obvious deformity. No CVA tenderness. A/P Assessment and Plan //Severe symptomatic Hypocalcemia. Persistent //Severe symptomatic Hypokalemia -Received Ca gluconate in the ED and KCL IV -Corrected for albumin of 0.8, calcium normal (our lab uses some different correction) //HIV positive. 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 PML (low CD4 count per records 08/10), patient with dysphagia, altered mental status , concern for PML/HIV dementia , pt is noncompliant with meds -New CD4 count less than 20 -ID consult appreciated, and follow up with ID as outpatient. - MRI no PML -11/20. Add Bactrim and azithromycin prophylaxis. No CMV on file. Can follow up with ID as outpatient. //Thrush -Improved -Magic mouthwash, continue on fluconazole IV //Dysphagia poss 2/2 tara esophagitis //Severe ascites //Coagulopathy elevated INR received vit K 11/14 S/P paracentesis 11/15/16. No infection. No malignancy on cytology. -Appreciate GI assistance. -On fluconazole and magic wash as above -Dcardiology indicates patient is at moderate/severe risk for GI procedures and not advised. //NSTEMI . Elevated troponin. Patient c/o chest pain 11/13 at night. Troponin trending up. Cardiology consulted. I discussed with Dr Chet Jerry cardiology . Patient decided for medical management and non invasive procedures. Patient also with elevated Ddimer, CTA to r/o PE is negative. 2D ECHO pending //Right arm swelling. Improved. Ultrasound negative for DVT. //Normocytic anemia, noted HGB drop to 7.6 and elevated troponin 11/14 to decreased the demand on heart. 11/14 transfuse 2 U PRBC . H/H stable after transfusion. Monitor. -Much improved after transfusion. 11/14 = Stable. Continue to monitor. //Hypoalbuminemia, severe alb 0.8 -Likely secondary to malnutrition as below. //Severe Protein calorie malnutrition, cachectic, muscle waisting, low albumin. Prealbumin 3. Alb 0.8. -11/20. Add Ensure supplement. //Prophylaxis. Patient already with coagulopathy. SCDs. Palliative care consult, for goals of care, patient is deteriorating, poor prognosis. Discharge Planning patient will need inpatient rehabilitation/SNF. Appreciate case management assistance. Weight finish course of consult. Will need to be on prophylaxis for HIV. Will need follow-up with infectious disease as outpatient. Julius Brooke MD Nov 20, 2016 20:35
[2016-11-21] VITALS (7 sets, daily range): BP systolic 111–133; BP diastolic 77–83; PULSE 82–98; RESP 16–18; TEMP 97.9–100.5; O2SAT 96–100
[2016-11-21] MEDS: CALCIUM CARBONATE 500 MG CHEWABLE TAB CHEW SCH ×3 (00:53→20:55)
[2016-11-21] MEDS: SODIUM CHLORIDE 0.9% FLUSH 10 ML FLUSH IV FLUSH SCH ×3 (00:54→20:56)
[2016-11-21] MEDS: NYSTAT/DIPHENHY/LIDO MOUTHWASH (Adult) 120ML SWISH-SWAL SCH ×5 (00:54→20:56)
[2016-11-21] MEDS: DOCUSATE SODIUM 100 MG CAP PO SCH ×2 (00:54→10:43)
[2016-11-21] MEDS: PANTOPRAZOLE SODIUM 40 MG VIAL IV PUSH SCH ×3 (05:28→20:55)
[2016-11-21] MEDS: SPIRONOLACTONE 25 MG TAB PO SCH (09:46)
[2016-11-21] MEDS: ASPIRIN 81 MG CHEW TAB CHEW SCH (09:46)
[2016-11-21] MEDS: AZITHROMYCIN 600 MG TAB PO SCH (09:46)
[2016-11-21] MEDS: FUROSEMIDE 20 MG/2 ML VIAL IV PUSH SCH (09:46)
[2016-11-21] MEDS: SULFAMETHOXAZOLE-TRIMETHOPRIM DS 800-160 MG TAB PO SCH (09:46)
[2016-11-21 12:31] LABS: BICARBONATE 22.3 MEQ/L (21.0-32.0); MAGNESIUM 1.9 MG/DL (1.5-2.5)
[2016-11-21] MEDS: SODIUM CHLOR 0.45% 1000 ML INJ 1,000 ML IV SCH (12:49)
--- NOTE | 2016-11-21 12:54 | RADRPT ---
EXAM DATE/TIME: 11/21/2016 11:53 [facility] COMPARISON: CHEST SINGLE AP, August 10, 2016, 19:31. INDICATIONS : Shortness of breath. MEDICAL HISTORY : None. SURGICAL HISTORY : None. ENCOUNTER: Initial ACUITY: 1 day PAIN SCORE: 0/10 LOCATION: Bilateral chest FINDINGS: Single AP view of the chest. Lung volumes are low. Mild patchy opacity at the left lung base likely p resent atelectasis. The lungs are otherwise clear. Cardiomediastinal silhouette within normal limits. No evidence of pleural effusion or pneumothorax. CONCLUSION: Low lung volumes with mild patchy left lung base opacity likely representing atelectasis. Adriel Helm MD on November 21, 2016 at 12:52 Board Certified Radiologist. This report was verified electronically.
[2016-11-21 13:09] LABS: AUTOMATED NEUTROPHIL # 5.9 TH/MM3 (1.8-7.7); BASOPHIL % 0.4 % (0.0-2.0); EOSINOPHIL % 0.1 % (0.0-4.0); HEMATOCRIT 34.8 % (35.0-46.0); LYMPH % 7.3 % (9.0-44.0); LYMPHOCYTE # 0.5 TH/MM3 (1.0-4.8); MEAN CELL VOLUME 93.7 FL (80.0-100.0); MEAN CORPUSCULAR HEMOGLOBIN 31.3 PG (27.0-34.0); MEAN CORPUSCULAR HGB CONC 33.4 % (32.0-36.0); MONO % 8.8 % (0.0-8.0); NEUT % 83.4 % (16.0-70.0); PLATELET COUNT 99 TH/MM3 (150-450); RED BLOOD COUNT 3.71 MIL/MM3 (4.00-5.30); RED CELL DISTRIBUTION WIDTH 17.3 % (11.6-17.2)
[2016-11-21 13:19] LABS: HEMO FLAGS AUTO DIFF
[2016-11-21] MEDS: FLUCONAZOLE 100 MG PREMIX BAG 50 ML IV SCH (16:18)
[2016-11-21 16:53] LABS: PLATELET ESTIMATE SMEAR LOW (NORMAL); PLATELET MORPHOLOGY NORMAL (NORMAL); SCAN/DIFF AUTO DIFF CONFIRMED
[2016-11-21] MEDS: MORPHINE SULFATE 4 MG/ML INJ IV PUSH PRN (20:55)
[2016-11-21 21:12] LABS: C. DIFF EPI 027 PRESUMPTIVE NEGATIVE (NEGATIVE); C. DIFF TOXIN PCR NEGATIVE (NEGATIVE)
--- NOTE | 2016-11-21 23:48 | HHI.PR ---
Subjective Remarks patient seen this morning around 11 AM.she says she is feeling all right. Denies any chest pain or shortness of breath. Denies any abdominal pain Fever overnight. Cultures, chest x-ray, urinalysis ordered. Objective Vital Signs Date Time Temp Pulse Resp B/P Pulse Ox O2 Delivery O2 Flow Rate FiO2 11/21/16 21:44 16 11/21/16 20:00 98.7 91 16 133/78 97 11/21/16 16:50 99.2 95 16 111/82 96 11/21/16 12:00 97.9 82 16 115/82 99 11/21/16 08:13 98 11/21/16 08:00 99.0 87 16 118/77 100 11/21/16 04:00 100.5 94 16 122/83 99 11/21/16 00:00 99.6 91 18 126/81 98 I/O 11/20/16 11/20/16 11/20/16 11/21/16 11/21/16 11/21/16 07:00 15:00 23:00 07:00 15:00 23:00 Intake Total 1200 ml 480 ml 240 ml 480 ml 830 ml Output Total 300 ml 300 ml 250 ml Balance 900 ml 180 ml 240 ml 480 ml 580 ml Intake Oral 480 ml 480 ml 240 ml 480 ml 830 ml IV Total 720 ml Output Urine Total 300 ml 300 ml 250 ml # Voids 1 1 3 2 # Bowel Movements 3 3 Result Diagram: 11/21/16 1130 11/21/16 1130 Objective Remarks GENERAL: cachectic 51-year-old female sitting up in bed. Appears comfortable. SKIN: Warm and dry. HEAD: Normocephalic. EYES: No scleral icterus. No injection or drainage. NECK: Supple, trachea midline. No JVD or lymphadenopathy. CARDIOVASCULAR: Regular rate and rhythm without murmurs, gallops, or rubs. RESPIRATORY: Breath sounds equal bilaterally. No accessory muscle use. GASTROINTESTINAL: Abdomen soft, non-tender, nondistended.ascites. No rebound or guarding MUSCULOSKELETAL: No cyanosis, or edema. BACK: Nontender without obvious deformity. No CVA tenderness. A/P Assessment and Plan //Severe symptomatic Hypocalcemia. Persistent //Severe symptomatic Hypokalemia -Received Ca gluconate in the ED and KCL IV -Corrected for albumin of 0.8, calcium normal (our lab uses some different correction) //HIV positive. 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 PML (low CD4 count per records 08/10), patient with dysphagia, altered mental status , concern for PML/HIV dementia , pt is noncompliant with meds -New CD4 count less than 20 -ID consult appreciated, and follow up with ID as outpatient. - MRI no PML -11/20. Add Bactrim and azithromycin prophylaxis. No CMV on file. Can follow up with ID as outpatient. -11/21. Continue prophylaxis. We'll need to follow up with ID as outpatient and start on HIV meds //fever overnight 11/21. blood cultures drawn, chest x-ray and urinalysis unremarkable. Continue to monitor for signs of infection. //Thrush -Improved -Magic mouthwash, continue on fluconazole IV //Dysphagia poss 08/26 tara esophagitis //Severe ascites //Coagulopathy elevated INR received vit K 11/14 S/P paracentesis 11/15/16. No infection. No malignancy on cytology. -Appreciate GI assistance. -On fluconazole and magic wash as above -Dcardiology indicates patient is at moderate/severe risk for GI procedures and not advised. //NSTEMI . Elevated troponin. Patient c/o chest pain 11/13 at night. Troponin trending up. Cardiology consulted. I discussed with Dr Ceht Jerry cardiology . Patient decided for medical management and non invasive procedures. Patient also with elevated Ddimer, CTA to r/o PE is negative. 2D ECHO pending //Right arm swelling. Improved. Ultrasound negative for DVT. //Normocytic anemia, noted HGB drop to 7.6 and elevated troponin 11/14 to decreased the demand on heart. 11/14 transfuse 2 U PRBC . H/H stable after transfusion. Monitor. -Much improved after transfusion. 11/14 = Stable. Continue to monitor. //Hypoalbuminemia, severe alb 0.8 -Likely secondary to malnutrition as below. //Severe Protein calorie malnutrition, cachectic, muscle waisting, low albumin. Prealbumin 3. Alb 0.8. -11/20. Add Ensure supplement. //Prophylaxis. Patient already with coagulopathy. SCDs. Palliative care consult, for goals of care, patient is deteriorating, poor prognosis. Discharge Planning patient will need inpatient rehabilitation/SNF. Appreciate case management assistance. Weight finish course of consult. Will need to be on prophylaxis for HIV. Will need follow-up with infectious disease as outpatient. Julius Brooke MD Nov 21, 2016 23:48
[2016-11-22] VITALS (7 sets, daily range): BP systolic 94–142; BP diastolic 70–96; PULSE 85–98; RESP 16–18; TEMP 96.6–99.2; O2SAT 96–99
[2016-11-22] MEDS: SODIUM CHLOR 0.45% 1000 ML INJ 1,000 ML IV SCH (05:10)
[2016-11-22 08:06] LABS: HEMATOCRIT 31.1 % (35.0-46.0); MEAN CELL VOLUME 92.5 FL (80.0-100.0); MEAN CORPUSCULAR HEMOGLOBIN 31.6 PG (27.0-34.0); MEAN CORPUSCULAR HGB CONC 34.2 % (32.0-36.0); PLATELET COUNT 99 TH/MM3 (150-450); RED BLOOD COUNT 3.36 MIL/MM3 (4.00-5.30); WHITE BLOOD COUNT 6.4 TH/MM3 (4.0-11.0)
[2016-11-22 08:16] LABS: HEMO FLAGS AUTO DIFF
[2016-11-22 08:27] LABS: BICARBONATE 22.7 MEQ/L (21.0-32.0); MAGNESIUM 1.9 MG/DL (1.5-2.5); POTASSIUM 3.6 MEQ/L (3.5-5.1)
[2016-11-22] MEDS: SULFAMETHOXAZOLE-TRIMETHOPRIM DS 800-160 MG TAB PO SCH (08:51)
[2016-11-22] MEDS: NYSTAT/DIPHENHY/LIDO MOUTHWASH (Adult) 120ML SWISH-SWAL SCH ×4 (08:51→22:30)
[2016-11-22] MEDS: FUROSEMIDE 20 MG/2 ML VIAL IV PUSH SCH (08:51)
[2016-11-22] MEDS: CALCIUM CARBONATE 500 MG CHEWABLE TAB CHEW SCH ×2 (08:51→22:31)
[2016-11-22] MEDS: SPIRONOLACTONE 25 MG TAB PO SCH (08:52)
[2016-11-22] MEDS: ASPIRIN 81 MG CHEW TAB CHEW SCH (08:52)
[2016-11-22] MEDS: SODIUM CHLORIDE 0.9% FLUSH 10 ML FLUSH IV FLUSH SCH ×2 (08:52→21:00)
[2016-11-22 09:29] LABS: BANDS 6 % (0-6); METAMYELOCYTES 1 % (0-1); MYELOCYTES 1 % (0-0); NEUTROPHIL # MANUAL DIFF 5.4 TH/MM3 (1.8-7.7); POLYS (SEG NEUTROPHILS) 76 % (16-70); WBC DIFF SAMPLE 100
[2016-11-22 09:30] LABS: OVALOCYTES 1+ (NORMAL); PLATELET ESTIMATE SMEAR LOW (NORMAL)
[2016-11-22 09:32] LABS: PLATELET MORPHOLOGY NORMAL (NORMAL); SCAN/DIFF FINAL DIFF MANUAL
[2016-11-22] MEDS: DOCUSATE SODIUM 100 MG CAP PO SCH ×2 (12:03)
[2016-11-22] MEDS: MORPHINE SULFATE 4 MG/ML INJ IV PUSH PRN ×2 (12:03→23:31)
--- NOTE | 2016-11-22 17:46 | HHI.PR ---
Subjective Remarks patient seen this morning around 10 AM. Says she is feeling all right.denies any chest pain or shortness of breath. Denies any abdominal pain. Objective Vital Signs Date Time Temp Pulse Resp B/P Pulse Ox O2 Delivery O2 Flow Rate FiO2 11/22/16 12:00 97.9 98 18 111/74 98 11/22/16 08:00 96.6 86 18 131/96 96 11/22/16 08:00 91 11/22/16 04:00 98.0 89 16 94/74 97 11/22/16 00:00 97.9 88 16 126/70 98 11/21/16 21:44 16 11/21/16 20:00 89 11/21/16 20:00 98.7 91 16 133/78 97 I/O 11/21/16 11/21/16 11/21/16 11/22/16 11/22/16 11/22/16 07:00 15:00 23:00 07:00 15:00 23:00 Intake Total 240 ml 480 ml 830 ml 240 ml Output Total 250 ml 250 ml Balance 240 ml 480 ml 580 ml -10 ml Intake Oral 240 ml 480 ml 830 ml 240 ml Output Urine Total 250 ml 250 ml # Voids 1 3 2 # Bowel Movements 3 3 Result Diagram: 11/22/1662111/22/16621 Objective Remarks GENERAL: cachectic 51-year-old female sitting up in bed. Appears comfortable.exam unchanged from yesterday. SKIN: Warm and dry.as before, patient has areas of ivermectin patient consistent with recent scabies. No active lesions observed. HEAD: Normocephalic. EYES: No scleral icterus. No injection or drainage. NECK: Supple, trachea midline. No JVD or lymphadenopathy. CARDIOVASCULAR: Regular rate and rhythm without murmurs, gallops, or rubs. RESPIRATORY: Breath sounds equal bilaterally. No accessory muscle use. GASTROINTESTINAL: Abdomen soft, non-tender, nondistended.ascites. No rebound or guarding MUSCULOSKELETAL: No cyanosis, or edema. BACK: Nontender without obvious deformity. No CVA tenderness. A/P Assessment and Plan //Severe symptomatic Hypocalcemia. Persistent //Severe symptomatic Hypokalemia -Received Ca gluconate in the ED and KCL IV -Corrected for albumin of 0.8, calcium normal (our lab uses some different correction) //HIV positive. 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 PML (low CD4 count per records 08/10), patient with dysphagia, altered mental status , concern for PML/HIV dementia , pt is noncompliant with meds -New CD4 count less than 20 -ID consult appreciated, and follow up with ID as outpatient. - MRI no PML -11/20. Add Bactrim and azithromycin prophylaxis. No CMV on file. Can follow up with ID as outpatient. -11/21. Continue prophylaxis. We'll need to follow up with ID as outpatient and start on HIV meds //fever overnight 11/21. blood cultures drawn, chest x-ray and urinalysis unremarkable. Continue to monitor for signs of infection. -no further fevers. Cultures negative so far. //Thrush -Improved -Magic mouthwash, continue on fluconazole IV //Dysphagia poss 08/26 tara esophagitis //Severe ascites //Coagulopathy elevated INR received vit K 11/14 S/P paracentesis 11/15/16. No infection. No malignancy on cytology. -Appreciate GI assistance. -On fluconazole and magic wash as above -Dcardiology indicates patient is at moderate/severe risk for GI procedures and not advised. //NSTEMI . Elevated troponin. Patient c/o chest pain 11/13 at night. Troponin trending up. Cardiology consulted. I discussed with Dr Chet Jerry cardiology . Patient decided for medical management and non invasive procedures. Patient also with elevated Ddimer, CTA to r/o PE is negative. 2D ECHO pending //Right arm swelling. Improved. Ultrasound negative for DVT. //Normocytic anemia, noted HGB drop to 7.6 and elevated troponin 11/14 to decreased the demand on heart. 11/14 transfuse 2 U PRBC . H/H stable after transfusion. Monitor. -Much improved after transfusion. 11/14 = Stable. Continue to monitor. //Hypoalbuminemia, severe alb 0.8 -Likely secondary to malnutrition as below. //Severe Protein calorie malnutrition, cachectic, muscle waisting, low albumin. Prealbumin 3. Alb 0.8. -11/20. Add Ensure supplement. //Prophylaxis. Patient already with coagulopathy. SCDs. //scabies. Due to immunocompromise state, will order permethrin again to make sure that patient has been cleared of infestation. Palliative care consult, for goals of care, patient is deteriorating, poor prognosis. Discharge Planning patient will need inpatient rehabilitation/SNF. Appreciate case management assistance. Weight finish course of consult. Will need to be on prophylaxis for HIV. Will need follow-up with infectious disease as outpatient. Julius Brooke MD November 22, 2016 17:46
[2016-11-22] MEDS ORDERED: PERMETHRIN 5% CREAM 60 GM TOPICAL ONE (18:00)
[2016-11-22] MEDS: FLUCONAZOLE 100 MG PREMIX BAG 50 ML IV SCH (19:27)
[2016-11-22] MEDS: PANTOPRAZOLE SODIUM 40 MG VIAL IV PUSH SCH (19:28)
[2016-11-23] VITALS (8 sets, daily range): BP systolic 103–133; BP diastolic 73–86; PULSE 67–103; RESP 17–22; TEMP 96.9–102.3; O2SAT 96–100
[2016-11-23] MEDS: PANTOPRAZOLE SODIUM 40 MG VIAL IV PUSH SCH ×2 (05:01→18:11)
[2016-11-23] MEDS: CALCIUM CARBONATE 500 MG CHEWABLE TAB CHEW SCH ×2 (07:56→21:33)
[2016-11-23] MEDS: SPIRONOLACTONE 25 MG TAB PO SCH (07:56)
[2016-11-23] MEDS: ASPIRIN 81 MG CHEW TAB CHEW SCH (07:56)
[2016-11-23] MEDS: SULFAMETHOXAZOLE-TRIMETHOPRIM DS 800-160 MG TAB PO SCH (07:56)
[2016-11-23] MEDS: SODIUM CHLORIDE 0.9% FLUSH 10 ML FLUSH IV FLUSH SCH ×2 (07:57→21:21)
[2016-11-23] MEDS: NYSTAT/DIPHENHY/LIDO MOUTHWASH (Adult) 120ML SWISH-SWAL SCH ×4 (07:57→21:33)
[2016-11-23] MEDS: FUROSEMIDE 20 MG/2 ML VIAL IV PUSH SCH (07:57)
[2016-11-23] MEDS: SODIUM CHLOR 0.45% 1000 ML INJ 1,000 ML IV SCH (08:05)
--- NOTE | 2016-11-23 10:55 | HHI.IDPN ---
Subjective Subjective Remarks Notes reviewed Called regarding isolation for her scabies She got her second tratement last night Not itching No pain Being evaluated for SNF No new ID issue Antibiotics Diflucan Lines PIV Past Medical History Reviewed Allergies: Coded Allergies: No Known Allergies (Verified , 11/12/16) Objective . Vital Signs Date Time Temp Pulse Resp B/P Pulse Ox O2 Delivery O2 Flow Rate FiO2 11/23/16 04:00 96.9 90 18 133/84 96 11/23/16 00:00 97.7 80 17 120/86 98 11/22/16 20:16 93 11/22/16 20:00 99.2 85 17 142/89 99 11/22/16 16:00 97.0 87 18 118/71 97 11/22/16 12:00 97.9 98 18 111/74 98 11/22/16 11/22/16 11/23/16 15:00 23:00 07:00 Intake Total 480 ml 480 ml Balance 480 ml 480 ml Intake Oral 480 ml 480 ml # Voids 5 3 . Laboratory Tests Test 11/21/16 11/22/16 11:30 06:22 White Blood Count 7.0 TH/MM3 6.4 TH/MM3 Red Blood Count 3.71 MIL/MM3 3.36 MIL/MM3 Hemoglobin 11.6 GM/DL 10.6 GM/DL Hematocrit 34.8 % 31.1 % Mean Corpuscular Volume 93.7 FL 92.5 FL Mean Corpuscular Hemoglobin 31.3 PG 31.6 PG Mean Corpuscular Hemoglobin 33.4 % 34.2 % Concent Red Cell Distribution Width 17.3 % 17.0 % Platelet Count 99 TH/MM3 99 TH/MM3 Mean Platelet Volume 9.7 FL 10.3 FL Neutrophils (%) (Auto) 83.4 % % Lymphocytes (%) (Auto) 7.3 % % Monocytes (%) (Auto) 8.8 % % Eosinophils (%) (Auto) 0.1 % % Basophils (%) (Auto) 0.4 % % Neutrophils # (Auto) 5.9 TH/MM3 TH/MM3 Lymphocytes # (Auto) 0.5 TH/MM3 TH/MM3 Monocytes # (Auto) 0.6 TH/MM3 TH/MM3 Eosinophils # (Auto) 0.0 TH/MM3 TH/MM3 Basophils # (Auto) 0.0 TH/MM3 TH/MM3 CBC Comment AUTO DIFF AUTO DIFF Differential Comment AUTO DIFF FINAL DIFF CONFIRMED MANUAL Platelet Estimate LOW LOW Platelet Morphology Comment NORMAL NORMAL Differential Total Cells 100 Counted Neutrophils % (Manual) 76 % Band Neutrophils % 6 % Lymphocytes % 9 % Monocytes % 7 % Neutrophils # (Manual) 5.4 TH/MM3 Metamyelocytes 1 % Myelocytes 1 % Atypical Lymphocytes % Ovalocytes 1+ Laboratory Tests Test 11/21/16 11/22/16 11:30 06:22 Sodium Level 137 MEQ/L 139 MEQ/L Potassium Level 4.0 MEQ/L 3.6 MEQ/L Chloride Level 105 MEQ/L 108 MEQ/L Carbon Dioxide Level 22.3 MEQ/L 22.7 MEQ/L Anion Gap 10 MEQ/L 8 MEQ/L Blood Urea Nitrogen 8 MG/DL 9 MG/DL Creatinine 0.82 MG/DL 0.79 MG/DL Estimat Glomerular Filtration 89 ML/MIN 92 ML/MIN Rate Random Glucose 64 MG/DL 81 MG/DL Calcium Level 7.4 MG/DL 7.5 MG/DL Phosphorus Level 3.0 MG/DL 3.1 MG/DL Magnesium Level 1.9 MG/DL 1.9 MG/DL Albumin 1.6 GM/DL 1.4 GM/DL Microbiology Date/Time Procedure Status Source Growth 11/21/16 10:00 Aerobic Blood Culture - Preliminary Resulted Blood Peripheral NO GROWTH IN 1 DAY 11/21/16 10:00 Anaerobic Blood Culture - Final Resulted Blood Peripheral QNS - SEE AEROBE REPORT 11/21/16 10:15 Aerobic Blood Culture - Preliminary Resulted Blood Peripheral NO GROWTH IN 1 DAY 11/21/16 10:15 Anaerobic Blood Culture - Final Resulted Blood Peripheral QNS - SEE AEROBE REPORT Imaging Last Impressions Abdomen/Pelvis CT 11/14/16 0000 Signed Impressions: Service Date/Time: Monday, November 14, 2016 08:14 - CONCLUSION: 1. Cirrhotic liver with a large amount of ascites. There are varices in the left upper quadrant around the spleen. 2. Mild bilateral pleural effusions with accompanying atelectasis or consolidation at the lung bases. 3. Small nodule seen in the right middle lobe region on the first image obtained. This was present on a prior CTA from 08/20/2015. Nelson Pinon MD Abdomen X-Ray 11/12/16 0729 Signed Impressions: Service Date/Time: Saturday, November 12, 2016 07:53 - CONCLUSION: Small bowel ileus without evidence of pathologic distention. No evidence of free air or significant mass effect.. Yaya Guzman MD Physical Exam GENERAL:Cachectic, awake and alert, NAD SKIN: Cool and dry. Has improving rash HEENT: [place] conjunctiva. No scleral icterus. No injection or drainage. ENT: Nose without bleeding, purulent drainage. She is edentulous, moist mucosa, no thrush. White coating tongue. NECK: Supple, nontender, no meningeal signs. CARDIOVASCULAR: Regular rate and rhythm without murmurs, gallops, or rubs. RESPIRATORY: Clear to auscultation. Breath sounds equal bilaterally. No wheezes , rales, or rhonchi. GASTROINTESTINAL: Abdomen is less distended, bowel sounds present and hypoactive , with min tenderness. No rebound MUSCULOSKELETAL: Extremities without clubbing, cyanosis, or edema. No joint effusion, good ROM. No calf tenderness. 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
[2016-11-23] MEDS: MORPHINE SULFATE 4 MG/ML INJ IV PUSH PRN ×2 (11:19→18:11)
[2016-11-23] MEDS: DOCUSATE SODIUM 100 MG CAP PO SCH ×3 (12:00→14:06)
--- NOTE | 2016-11-23 14:36 | HHI.PR ---
Subjective Remarks pt says she is feeling okay. no cp or sob. says no itching. got second permethrin application last night. Objective Vital Signs Date Time Temp Pulse Resp B/P Pulse Ox O2 Delivery O2 Flow Rate FiO2 11/23/16 08:30 21 11/23/16 04:00 96.9 90 18 133/84 96 11/23/16 00:00 97.7 80 17 120/86 98 11/22/16 20:16 93 11/22/16 20:00 99.2 85 17 142/89 99 11/22/16 16:00 97.0 87 18 118/71 97 I/O 11/22/16 11/22/16 11/22/16 11/23/16 11/23/16 11/23/16 07:00 15:00 23:00 07:00 15:00 23:00 Intake Total 240 ml 480 ml 480 ml Output Total 250 ml Balance -10 ml 480 ml 480 ml Intake Oral 240 ml 480 ml 480 ml Output Urine Total 250 ml # Voids 5 3 Result Diagram: 11/22/1662111/22/16621 Objective Remarks GENERAL: cachectic 51-year-old female sitting up in bed. Appears comfortable.exam again unchnaged SKIN: Warm and dry.as before, patient has areas of ivermectin patient consistent with recent scabies. No active lesions observed. unchnaged HEAD: Normocephalic. EYES: No scleral icterus. No injection or drainage. NECK: Supple, trachea midline. No JVD or lymphadenopathy. CARDIOVASCULAR: Regular rate and rhythm without murmurs, gallops, or rubs. RESPIRATORY: Breath sounds equal bilaterally. No accessory muscle use. GASTROINTESTINAL: Abdomen soft, non-tender, nondistended.ascites. No rebound or guarding MUSCULOSKELETAL: No cyanosis, or edema. BACK: Nontender without obvious deformity. No CVA tenderness. A/P Assessment and Plan //Severe symptomatic Hypocalcemia. Persistent //Severe symptomatic Hypokalemia -Received Ca gluconate in the ED and KCL IV -Corrected for albumin of 0.8, calcium normal (our lab uses some different correction) //HIV positive. 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 PML (low CD4 count per records 08/10), patient with dysphagia, altered mental status , concern for PML/HIV dementia , pt is noncompliant with meds -New CD4 count less than 20 -ID consult appreciated, and follow up with ID as outpatient. - MRI no PML -11/20. Add Bactrim and azithromycin prophylaxis. No CMV on file. Can follow up with ID as outpatient. -11/21. Continue prophylaxis. Will need to follow up with ID as outpatient and start on HIV meds //fever overnight 11/21. blood cultures drawn, chest x-ray and urinalysis unremarkable. Continue to monitor for signs of infection. -no further fevers. Cultures negative so far. //Thrush -Improved -Magic mouthwash, continue on fluconazole //Dysphagia poss 08/26 tara esophagitis //Severe ascites //Coagulopathy elevated INR received vit K 11/14 S/P paracentesis 11/15/16. No infection. No malignancy on cytology. -Appreciate GI assistance. -On fluconazole and magic wash as above -cardiology indicates patient is at moderate/severe risk for GI procedures and not advised. //NSTEMI . Elevated troponin. Patient c/o chest pain 11/13 at night. Troponin trending up. Cardiology consulted. I discussed with Dr Chet Jerry cardiology . Patient decided for medical management and non invasive procedures. Patient also with elevated Ddimer, CTA to r/o PE is negative. 2D ECHO EF WNL //Right arm swelling. Improved. Ultrasound negative for DVT. //Normocytic anemia, noted HGB drop to 7.6 and elevated troponin 11/14 to decreased the demand on heart. 11/14 transfuse 2 U PRBC . H/H stable after transfusion. Monitor. -Much improved after transfusion. 11/14 = Stable. Continue to monitor. //Hypoalbuminemia, severe alb 0.8 -Likely secondary to malnutrition as below. //Severe Protein calorie malnutrition, cachectic, muscle waisting, low albumin. Prealbumin 3. Alb 0.8. -11/20. Add Ensure supplement. //Prophylaxis. Patient already with coagulopathy. SCDs. //scabies. resolved s/p second treatment. no longer needs isolation. Palliative care consult, for goals of care, patient is deteriorating, poor prognosis. Discharge Planning patient will need inpatient rehabilitation/SNF. Appreciate case management assistance. Will need to be on prophylaxis for HIV. Will need follow-up with infectious disease as outpatient to start back on HAART meds. Julius Brooke MD November 23, 2016 14:36
[2016-11-23] MEDS: DEXTROSE 50% IN WATER 50 ML VIAL(D50) IV PUSH PRN ×2 (21:28→22:23)
[2016-11-23] MEDS: ACETAMINOPHEN 325 MG TAB PO PRN (21:47)
[2016-11-23] MEDS ORDERED: Vancomycin Consult Pharmacy 1 EA OTHER SCH (22:45)
[2016-11-23] MEDS ORDERED: VANCOMYCIN INJ 1,000 MG in SODIUM CHLOR 0.9% 250 ML INJ 250 ML IV ONE (22:45)
--- NOTE | 2016-11-23 23:02 | RADRPT ---
EXAM DATE/TIME: 11/23/2016 22:38 [facility] COMPARISON: CHEST SINGLE AP, November 21, 2016, 11:53. INDICATIONS : Fever. MEDICAL HISTORY : Scabies. Seizures. Cirrhosis. Cerebrovascular accident. Liver disease. HIV. Substance abuse. SURGICAL HISTORY : section. Exploratory laparotomy. ENCOUNTER: Subsequent ACUITY: 3 days PAIN SCORE: 0/10 LOCATION: Bilateral chest FINDINGS: The heart size is normal. There is increased density at the left base with silhouetting the left huma diaphragm. The right lung is grossly clear. CONCLUSION: Left lower lobe consolidation and left effusion. Nelson Pinon MD on November 23, 2016 at 22:59 Board Certified Radiologist. This report was verified electronically.
[2016-11-24] VITALS (9 sets, daily range): BP systolic 101–145; BP diastolic 57–88; PULSE 79–104; RESP 16–20; TEMP 96–100; O2SAT 94–98
[2016-11-24 00:20] LABS: AUTOMATED NEUTROPHIL # 5.5 TH/MM3 (1.8-7.7); BASOPHIL # 0.1 TH/MM3 (0-0.2); BASOPHIL % 1.9 % (0.0-2.0); EOSINOPHIL % 0.1 % (0.0-4.0); HEMATOCRIT 32.6 % (35.0-46.0); HEMO FLAGS DIFF FINAL; LYMPH % 4.9 % (9.0-44.0); LYMPHOCYTE # 0.3 TH/MM3 (1.0-4.8); MEAN CELL VOLUME 93.7 FL (80.0-100.0); MEAN CORPUSCULAR HEMOGLOBIN 32.1 PG (27.0-34.0); MEAN CORPUSCULAR HGB CONC 34.3 % (32.0-36.0); MONO % 8.1 % (0.0-8.0); PLATELET COUNT 115 TH/MM3 (150-450); RED BLOOD COUNT 3.48 MIL/MM3 (4.00-5.30); RED CELL DISTRIBUTION WIDTH 16.5 % (11.6-17.2); WHITE BLOOD COUNT 6.5 TH/MM3 (4.0-11.0)
[2016-11-24 00:42] LABS: TOTAL BILIRUBIN ADULT 0.9 MG/DL (0.2-1.0)
[2016-11-24 00:58] LABS: CALCIUM-PROTEIN CORRECTED 7.3 MG/DL (8.5-10.1); POTASSIUM 4.7 MEQ/L (3.5-5.1)
[2016-11-24] MEDS ORDERED: CALCIUM GLUCONATE INJ 2 GM in DEXTROSE 5% IN WATER 100ML INJ 100 ML IV ONE ×2 (01:15)
[2016-11-24] MEDS: PIPERACIL-TAZO 4.5 GM PREMIX 100 ML IV SCH ×5 (01:51→23:55)
[2016-11-24] MEDS: PANTOPRAZOLE SODIUM 40 MG VIAL IV PUSH SCH ×2 (05:06→17:36)
[2016-11-24] MEDS: SULFAMETHOXAZOLE-TRIMETHOPRIM DS 800-160 MG TAB PO SCH (09:58)
[2016-11-24] MEDS: ASPIRIN 81 MG CHEW TAB CHEW SCH (09:58)
[2016-11-24] MEDS: NYSTAT/DIPHENHY/LIDO MOUTHWASH (Adult) 120ML SWISH-SWAL SCH ×4 (09:58→22:16)
[2016-11-24] MEDS: SPIRONOLACTONE 25 MG TAB PO SCH (09:58)
[2016-11-24] MEDS: CALCIUM CARBONATE 500 MG CHEWABLE TAB CHEW SCH ×2 (09:58→22:16)
[2016-11-24] MEDS: FUROSEMIDE 20 MG/2 ML VIAL IV PUSH SCH (09:59)
[2016-11-24] MEDS: SODIUM CHLORIDE 0.9% FLUSH 10 ML FLUSH IV FLUSH SCH ×2 (09:59→22:16)
[2016-11-24] MEDS: VANCOMYCIN 1,000 MG/NS 250 ML IV SCH ×4 (10:01→22:17)
[2016-11-24] MEDS: MORPHINE SULFATE 4 MG/ML INJ IV PUSH PRN ×3 (11:09→22:18)
[2016-11-24] MEDS: DOCUSATE SODIUM 100 MG CAP PO SCH ×3 (11:12→23:57)
--- NOTE | 2016-11-24 15:46 | HHI.IDPN ---
Subjective Subjective Remarks Notes reviewed Called regarding new fever last night Has some mild cough Has not vomited States her swallowing is better No complaint CXR with new LLL consolidation UA not done yet - ordered last night Had second Rx for scabies last night No diarrhea Started on Abx last night Antibiotics Diflucan Vancomycin Zosyn Lines PIV Past Medical History Reviewed Allergies: Coded Allergies: No Known Allergies (Verified , 11/12/16) Objective . Vital Signs Date Time Temp Pulse Resp B/P Pulse Ox O2 Delivery O2 Flow Rate FiO2 11/24/16 08:36 98 11/24/16 07:50 100.0 103 20 104/63 95 11/24/16 04:00 97.8 104 16 121/88 95 11/24/16 01:03 94 11/24/16 00:00 98.1 98 16 102/57 94 11/23/16 21:45 99.4 11/23/16 21:09 67 11/23/16 21:00 102.3 103 17 131/79 100 11/23/16 16:00 98.6 103 22 103/78 98 11/23/16 11/23/16 11/24/16 15:00 23:00 07:00 Intake Total 1200 ml 812 ml Balance 1200 ml 812 ml Intake Oral 1200 ml 240 ml IV Total 572 ml # Voids 9 1 . Laboratory Tests Test 11/23/16 23:55 White Blood Count 6.5 TH/MM3 Red Blood Count 3.48 MIL/MM3 Hemoglobin 11.2 GM/DL Hematocrit 32.6 % Mean Corpuscular Volume 93.7 FL Mean Corpuscular Hemoglobin 32.1 PG Mean Corpuscular Hemoglobin 34.3 % Concent Red Cell Distribution Width 16.5 % Platelet Count 115 TH/MM3 Mean Platelet Volume 11.0 FL Neutrophils (%) (Auto) 85.0 % Lymphocytes (%) (Auto) 4.9 % Monocytes (%) (Auto) 8.1 % Eosinophils (%) (Auto) 0.1 % Basophils (%) (Auto) 1.9 % Neutrophils # (Auto) 5.5 TH/MM3 Lymphocytes # (Auto) 0.3 TH/MM3 Monocytes # (Auto) 0.5 TH/MM3 Eosinophils # (Auto) 0.0 TH/MM3 Basophils # (Auto) 0.1 TH/MM3 CBC Comment DIFF FINAL Differential Comment Laboratory Tests Test 11/23/16 23:55 Sodium Level 141 MEQ/L Potassium Level 4.7 MEQ/L Chloride Level 110 MEQ/L Carbon Dioxide Level 25.0 MEQ/L Anion Gap 6 MEQ/L Blood Urea Nitrogen 10 MG/DL Creatinine 0.96 MG/DL Estimat Glomerular Filtration 74 ML/MIN Rate Random Glucose 66 MG/DL Lactic Acid Level 1.6 mmol/L Calcium Level 7.4 MG/DL Protein Corrected Calcium 7.3 MG/DL Total Bilirubin 0.9 MG/DL Aspartate Amino Transf 67 U/L (AST/SGOT) Alanine Aminotransferase 17 U/L (ALT/SGPT) Alkaline Phosphatase 147 U/L Total Protein 7.4 GM/DL Albumin 1.5 GM/DL Microbiology Date/Time Procedure Status Source Growth 11/23/16 23:50 Aerobic Blood Culture Received Blood Peripheral Pending 11/23/16 23:50 Anaerobic Blood Culture Received Blood Peripheral Pending 11/23/16 23:55 Aerobic Blood Culture Received Blood Peripheral Pending 11/23/16 23:55 Anaerobic Blood Culture Received Blood Peripheral Pending Imaging Last Impressions Abdomen/Pelvis CT 11/14/16 0000 Signed Impressions: Service Date/Time: Monday, November 14, 2016 08:14 - CONCLUSION: 1. Cirrhotic liver with a large amount of ascites. There are varices in the left upper quadrant around the spleen. 2. Mild bilateral pleural effusions with accompanying atelectasis or consolidation at the lung bases. 3. Small nodule seen in the right middle lobe region on the first image obtained. This was present on a prior CTA from 08/20/2015. Nelson Pinon MD Abdomen X-Ray 11/12/16 0729 Signed Impressions: Service Date/Time: Saturday, November 12, 2016 07:53 - CONCLUSION: Small bowel ileus without evidence of pathologic distention. No evidence of free air or significant mass effect.. Yaya Guzman MD Physical Exam GENERAL:Cachectic, awake and alert, NAD SKIN: Cool and dry. Has improving rash HEENT: [place] conjunctiva. No scleral icterus. No injection or drainage. ENT: Nose without bleeding, purulent drainage. She is edentulous, moist mucosa, no thrush. White coating tongue. NECK: Supple, nontender, no meningeal signs. CARDIOVASCULAR: Regular rate and rhythm without murmurs, gallops, or rubs. RESPIRATORY: Clear to auscultation. Decreased at bases. Breath sounds equal bilaterally. No wheezes, rales, or rhonchi. GASTROINTESTINAL: Abdomen is less distended, bowel sounds present and hypoactive , min tenderness. No rebound MUSCULOSKELETAL: Extremities without clubbing, cyanosis, or edema. No joint effusion, good ROM. No calf tenderness. 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 Dysphagia, clinically does not have any evidence of esophagitis - she is edentulous and that could be part or problem - also has had previous CVA, and this could also be adding to it Cachexia Scabies, treated 2X New fever, has increased opacity on her L base on CXR 11/23 - she has had [place] effusions and atelectasis at bases worse on L than R on CT 11/14 - min PNA symptoms RECOMMENDATION Continue current empiric Abx - on Zosyn and Vanco Follow C/S Follow temps Follow clinically Repeat CXR in few days and decide on Abx Patient is being evaluated for SNF She needs follow-up with her HIV provider to reevaluate her HAART Rx Continue her prophylactic meds: Bactrim and Zithromax D/W Sara Escobar MD November 24, 2016 15:46
--- NOTE | 2016-11-24 23:16 | HHI.PR ---
Subjective Remarks Patient seen this morning around 11:30 AM. Says she is feeling all right. Denies any chest pain or shortness of breath. fever 102 last night We'll continue on antibiotics. Objective Vital Signs Date Time Temp Pulse Resp B/P Pulse Ox O2 Delivery O2 Flow Rate FiO2 11/24/16 20:00 99.1 104 17 128/84 96 11/24/16 15:50 96.0 79 20 145/77 95 11/24/16 11:50 96.7 93 20 101/66 98 11/24/16 08:36 98 11/24/16 07:50 100.0 103 20 104/63 95 11/24/16 04:00 97.8 104 16 121/88 95 11/24/16 01:03 94 11/24/16 00:00 98.1 98 16 102/57 94 I/O 11/23/16 11/23/16 11/23/16 11/24/16 11/24/16 11/24/16 07:00 15:00 23:00 07:00 15:00 23:00 Intake Total 480 ml 1200 ml 812 ml 603 ml Balance 480 ml 1200 ml 812 ml 603 ml Intake Oral 480 ml 1200 ml 240 ml 227 ml IV Total 572 ml 376 ml # Voids 3 9 1 6 # Bowel Movements 0 Result Diagram: 11/23/16 2355 11/23/16 2355 Objective Remarks GENERAL: cachectic 51-year-old female sitting up in bed. Appears comfortable.examunchanged. SKIN: Warm and dry.as before, patient has areas of ivermectin patient consistent with recent scabies. No active lesions observed. unchnaged HEAD: Normocephalic. EYES: No scleral icterus. No injection or drainage. NECK: Supple, trachea midline. No JVD or lymphadenopathy. CARDIOVASCULAR: Regular rate and rhythm without murmurs, gallops, or rubs. RESPIRATORY: Breath sounds equal bilaterally. No accessory muscle use. GASTROINTESTINAL: Abdomen soft, non-tender, nondistended.ascites. No rebound or guarding MUSCULOSKELETAL: No cyanosis, or edema. BACK: Nontender without obvious deformity. No CVA tenderness. A/P Assessment and Plan //Severe symptomatic Hypocalcemia. Persistent //Severe symptomatic Hypokalemia -Received Ca gluconate in the ED and KCL IV -Corrected for albumin of 0.8, calcium normal (our lab uses some different correction) //HIV positive. 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 PML (low CD4 count per records 08/10), patient with dysphagia, altered mental status , concern for PML/HIV dementia , pt is noncompliant with meds -New CD4 count less than 20 -ID consult appreciated, and follow up with ID as outpatient. - MRI no PML -11/20. Add Bactrim and azithromycin prophylaxis. No CMV on file. Can follow up with ID as outpatient. -11/21. Continue prophylaxis. Will need to follow up with ID as outpatient and start on HIV meds //fever overnight 11/21. blood cultures drawn, chest x-ray and urinalysis unremarkable. Continue to monitor for signs of infection. -no further fevers. Cultures negative so far. //Left lower lobe, healthcare associated pneumonia. -11/24 Antibiotics started due to fever 11/24 overnight. Chest x-ray revealed left lower lobe pneumonia Continue antibiotics. Infectious disease consultation. //Thrush -Improved -Magic mouthwash, continue on fluconazole //Dysphagia poss 08/26 tara esophagitis //Severe ascites //Coagulopathy elevated INR received vit K 11/14 S/P paracentesis 11/15/16. No infection. No malignancy on cytology. -Appreciate GI assistance. -On fluconazole and magic wash as above -cardiology indicates patient is at moderate/severe risk for GI procedures and not advised. //NSTEMI . Elevated troponin. Patient c/o chest pain 11/13 at night. Troponin trending up. Cardiology consulted. I discussed with Dr Chet Jerry cardiology . Patient decided for medical management and non invasive procedures. Patient also with elevated Ddimer, CTA to r/o PE is negative. 2D ECHO EF WNL //Right arm swelling. Improved. Ultrasound negative for DVT. //Normocytic anemia, noted HGB drop to 7.6 and elevated troponin 11/14 to decreased the demand on heart. 11/14 transfuse 2 U PRBC . H/H stable after transfusion. Monitor. -Much improved after transfusion. 11/14 = Stable. Continue to monitor. //Hypoalbuminemia, severe alb 0.8 -Likely secondary to malnutrition as below. //Severe Protein calorie malnutrition, cachectic, muscle waisting, low albumin. Prealbumin 3. Alb 0.8. -11/20. Add Ensure supplement. //Prophylaxis. Patient already with coagulopathy. SCDs. //scabies. resolved s/p second treatment. no longer needs isolation. Discharge Planning patient will need inpatient rehabilitation/SNF. Appreciate case management assistance. Will need to be on prophylaxis for HIV. Will need follow-up with infectious disease as outpatient to start back on HAART meds. Julius Brooke MD November 24, 2016 23:16
[2016-11-24] MEDS: ACETAMINOPHEN 325 MG TAB PO PRN (23:55)
[2016-11-25] VITALS (9 sets, daily range): BP systolic 101–116; BP diastolic 67–76; PULSE 80–103; RESP 14–20; TEMP 95.9–102.6; O2SAT 92–100
[2016-11-25] MEDS: PANTOPRAZOLE SODIUM 40 MG VIAL IV PUSH SCH ×2 (04:32→18:01)
[2016-11-25] MEDS: PIPERACIL-TAZO 4.5 GM PREMIX 100 ML IV SCH (04:32)
[2016-11-25] MEDS: MORPHINE SULFATE 4 MG/ML INJ IV PUSH PRN ×2 (05:49→14:39)
[2016-11-25 06:58] LABS: BICARBONATE 22.8 MEQ/L (21.0-32.0); POTASSIUM 4.3 MEQ/L (3.5-5.1)
[2016-11-25 07:28] LABS: AUTOMATED NEUTROPHIL # 6.6 TH/MM3 (1.8-7.7); BASOPHIL # 0.1 TH/MM3 (0-0.2); EOSINOPHIL % 0.1 % (0.0-4.0); HEMATOCRIT 27.9 % (35.0-46.0); LYMPH % 9.4 % (9.0-44.0); LYMPHOCYTE # 0.8 TH/MM3 (1.0-4.8); MEAN CELL VOLUME 95.3 FL (80.0-100.0); MEAN CORPUSCULAR HEMOGLOBIN 31.9 PG (27.0-34.0); MEAN CORPUSCULAR HGB CONC 33.5 % (32.0-36.0); NEUT % 81.5 % (16.0-70.0); PLATELET COUNT 78 TH/MM3 (150-450); RED BLOOD COUNT 2.93 MIL/MM3 (4.00-5.30); RED CELL DISTRIBUTION WIDTH 16.8 % (11.6-17.2); WHITE BLOOD COUNT 8.1 TH/MM3 (4.0-11.0)
[2016-11-25 08:05] LABS: HEMO FLAGS AUTO DIFF
[2016-11-25 08:08] LABS: BANDS 22 % (0-6); EOSINOPHILS 1 % (0-4); NEUTROPHIL # MANUAL DIFF 7.2 TH/MM3 (1.8-7.7); PLASMA CELLS 1 % (0-0); POLYS (SEG NEUTROPHILS) 67 % (16-70); WBC DIFF SAMPLE 100
[2016-11-25 08:09] LABS: PLATELET ESTIMATE SMEAR LOW (NORMAL); PLATELET MORPHOLOGY NORMAL (NORMAL); SCAN/DIFF FINAL DIFF MANUAL
[2016-11-25] MEDS: FUROSEMIDE 20 MG/2 ML VIAL IV PUSH SCH (09:00)
--- NOTE | 2016-11-25 09:41 | HHI.IDPN ---
Subjective Subjective Remarks Notes reviewed Fever again last night She has no new complaint Minimal cough Not SOB, no chest pain Denies abdominal pain No diarrhea No nausea or vomiting Swallowing ok Voiding ok No central line Has very low CD4 counts CXR with new LLL consolidation UA still not done yet S/P 2 Rx for scabies Antibiotics Vancomycin Zosyn Lines PIV Past Medical History Reviewed Allergies: Coded Allergies: No Known Allergies (Verified , 11/12/16) Objective . Vital Signs Date Time Temp Pulse Resp B/P Pulse Ox O2 Delivery O2 Flow Rate FiO2 11/25/16 04:00 99.6 103 17 114/72 96 11/25/16 00:00 102.6 102 16 102/68 97 11/24/16 21:05 102 11/24/16 20:00 99.1 104 17 128/84 96 11/24/16 15:50 96.0 79 20 145/77 95 11/24/16 11:50 96.7 93 20 101/66 98 11/24/16 11/24/16 11/25/16 15:00 23:00 07:00 Intake Total 603 ml Balance 603 ml Intake Oral 227 ml IV Total 376 ml # Voids 6 2 # Bowel Movements 0 . Laboratory Tests Test 11/23/16 11/25/16 23:55 06:11 White Blood Count 6.5 TH/MM3 8.1 TH/MM3 Red Blood Count 3.48 MIL/MM3 2.93 MIL/MM3 Hemoglobin 11.2 GM/DL 9.3 GM/DL Hematocrit 32.6 % 27.9 % Mean Corpuscular Volume 93.7 FL 95.3 FL Mean Corpuscular Hemoglobin 32.1 PG 31.9 PG Mean Corpuscular Hemoglobin 34.3 % 33.5 % Concent Red Cell Distribution Width 16.5 % 16.8 % Platelet Count 115 TH/MM3 78 TH/MM3 Mean Platelet Volume 11.0 FL 11.2 FL Neutrophils (%) (Auto) 85.0 % 81.5 % Lymphocytes (%) (Auto) 4.9 % 9.4 % Monocytes (%) (Auto) 8.1 % 8.0 % Eosinophils (%) (Auto) 0.1 % 0.1 % Basophils (%) (Auto) 1.9 % 1.0 % Neutrophils # (Auto) 5.5 TH/MM3 6.6 TH/MM3 Lymphocytes # (Auto) 0.3 TH/MM3 0.8 TH/MM3 Monocytes # (Auto) 0.5 TH/MM3 0.6 TH/MM3 Eosinophils # (Auto) 0.0 TH/MM3 0.0 TH/MM3 Basophils # (Auto) 0.1 TH/MM3 0.1 TH/MM3 CBC Comment DIFF FINAL AUTO DIFF Differential Comment FINAL DIFF MANUAL Differential Total Cells 100 Counted Neutrophils % (Manual) 67 % Band Neutrophils % 22 % Lymphocytes % 3 % Monocytes % 6 % Eosinophils % 1 % Neutrophils # (Manual) 7.2 TH/MM3 Plasma Cells 1 % Platelet Estimate LOW Platelet Morphology Comment NORMAL Red Cell Morphology Comment Laboratory Tests Test 11/23/16 11/25/16 23:55 06:11 Sodium Level 141 MEQ/L 139 MEQ/L Potassium Level 4.7 MEQ/L 4.3 MEQ/L Chloride Level 110 MEQ/L 110 MEQ/L Carbon Dioxide Level 25.0 MEQ/L 22.8 MEQ/L Anion Gap 6 MEQ/L 6 MEQ/L Blood Urea Nitrogen 10 MG/DL 13 MG/DL Creatinine 0.96 MG/DL 1.13 MG/DL Estimat Glomerular Filtration 74 ML/MIN 61 ML/MIN Rate Random Glucose 66 MG/DL 97 MG/DL Lactic Acid Level 1.6 mmol/L Calcium Level 7.4 MG/DL 7.4 MG/DL Protein Corrected Calcium 7.3 MG/DL Total Bilirubin 0.9 MG/DL Aspartate Amino Transf 67 U/L (AST/SGOT) Alanine Aminotransferase 17 U/L (ALT/SGPT) Alkaline Phosphatase 147 U/L Total Protein 7.4 GM/DL Albumin 1.5 GM/DL 1.2 GM/DL Phosphorus Level 3.7 MG/DL Magnesium Level 2.0 MG/DL Microbiology Date/Time Procedure Status Source Growth 11/23/16 23:50 Aerobic Blood Culture Received Blood Peripheral Pending 11/23/16 23:50 Anaerobic Blood Culture Received Blood Peripheral Pending 11/23/16 23:55 Aerobic Blood Culture Received Blood Peripheral Pending 11/23/16 23:55 Anaerobic Blood Culture Received Blood Peripheral Pending Imaging Chest X-Ray 11/23/16 0000 Signed Impressions: Service Date/Time: Wednesday, November 23, 2016 22:38 - CONCLUSION: Left lower lobe consolidation and left effusion. Nelson Pinon MD Upper Extremity Ultrasound 11/18/16 0000 Signed Impressions: Service Date/Time: October 14:32 - CONCLUSION: Soft tissue edema with no evidence of deep venous thrombosis. Rad Cueto MD Cyst Biopsy Asp-Paracentesis US 11/15/16 0000 Signed Impressions: Service Date/Time: Tuesday, November 15, 2016 08:47 - CONCLUSION: Uncomplicated ultrasound guided paracentesis. Grant Villasenor MD CT Angiography 11/14/16 0000 Signed Impressions: Service Date/Time: Monday, November 14, 2016 17:44 - CONCLUSION: 1. The study is negative for pulmonary embolism. 2. Bilateral lower lobe consolidation and bilateral pleural effusions, left more severe than right. Jose Long MD Brain MRI 11/14/16 0000 Signed Impressions: Service Date/Time: Monday, November 14, 2016 17:17 - CONCLUSION: No acute findings in the brain. Lacunar infarcts in the jered, unchanged from 2013. Jose Long MD Abdomen/Pelvis CT 11/14/16 0000 Signed Impressions: Service Date/Time: Monday, November 14, 2016 08:14 - CONCLUSION: 1. Cirrhotic liver with a large amount of ascites. There are varices in the left upper quadrant around the spleen. 2. Mild bilateral pleural effusions with accompanying atelectasis or consolidation at the lung bases. 3. Small nodule seen in the right middle lobe region on the first image obtained. This was present on a prior CTA from 08/20/2015. Nelson Pinon MD Abdomen X-Ray 11/12/16 0729 Signed Impressions: Service Date/Time: Saturday, November 12, 2016 07:53 - CONCLUSION: Small bowel ileus without evidence of pathologic distention. No evidence of free air or significant mass effect.. Yaya Guzman MD Physical Exam GENERAL:Cachectic, awake and alert, NAD SKIN: Cool and dry. Has improving rash HEENT: [place] conjunctiva. No scleral icterus. No injection or drainage. ENT: Nose without bleeding, purulent drainage. She is edentulous, moist mucosa, no thrush. White coating tongue. NECK: Supple, nontender, no meningeal signs. CARDIOVASCULAR: Regular rate and rhythm without murmurs, gallops, or rubs. RESPIRATORY: Clear to auscultation. Decreased at bases. Breath sounds equal bilaterally. No wheezes, rales, or rhonchi. GASTROINTESTINAL: Abdomen is distended, bowel sounds present and hypoactive, not tenderness. No rebound MUSCULOSKELETAL: Extremities without clubbing, cyanosis, or edema. No joint effusion, good ROM. No calf tenderness. 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 Dysphagia, clinically does not have any evidence of esophagitis - she is edentulous and that could be part or problem - also has had previous CVA, and this could also be adding to it - swallowing well currently Cachexia Scabies, treated 2X New fever, has increased opacity on her L base on CXR 11/23 - she has had [place] effusions and atelectasis at bases worse on L than R on CT 11/14 - min PNA symptoms - ?due to OI RECOMMENDATION Continue Vancomycin for now - if BC negative, recommend D/C Change Zosyn to Levaquin Check BC for AFB Check CMV PCR D/W Dr Brooke - tap and see if this will help with her atelectasis Repeat CXR in few days Monitor temps Monitor progress She needs follow-up with her HIV provider to reevaluate her HAART Rx Continue her prophylactic meds: Bactrim and Zithromax D/W Dr Edwardo Metcalf will be covering for hi 11/26-11/28 Please call her if there is any ID issue, or if any (+) culture Sara Delgado MD November 25, 2016 09:41
[2016-11-25] MEDS ORDERED: ALBUMIN HUMAN 25% 25 GM/100 ML BAGP IV ONE ×2 (10:00→10:15)
[2016-11-25] MEDS: CALCIUM CARBONATE 500 MG CHEWABLE TAB CHEW SCH ×2 (10:39→20:55)
[2016-11-25] MEDS: ASPIRIN 81 MG CHEW TAB CHEW SCH (10:40)
[2016-11-25] MEDS: SULFAMETHOXAZOLE-TRIMETHOPRIM DS 800-160 MG TAB PO SCH (10:40)
[2016-11-25] MEDS: SPIRONOLACTONE 25 MG TAB PO SCH (10:40)
[2016-11-25] MEDS: NYSTAT/DIPHENHY/LIDO MOUTHWASH (Adult) 120ML SWISH-SWAL SCH ×4 (10:40→20:55)
[2016-11-25] MEDS: SODIUM CHLORIDE 0.9% FLUSH 10 ML FLUSH IV FLUSH SCH ×2 (10:41→20:55)
[2016-11-25] MEDS: LEVOFLOXACIN 500 MG TAB PO SCH (10:41)
[2016-11-25] MEDS: DOCUSATE SODIUM 100 MG CAP PO SCH ×2 (10:42→22:15)
[2016-11-25] MEDS ORDERED: PHARMACY ORDERED LAB ONE (10:45)
--- NOTE | 2016-11-25 16:37 | RADRPT ---
EXAM DATE/TIME: 11/25/2016 11:29 [facility] COMPARISON: US GUIDED ABD PARACENTESIS, November 15, 2016, 8:47. INDICATIONS : Ascites. MEDICAL HISTORY : Cirrhosis. HIV. Seizures. Cerebrovascular accident. Liver disease. Ectopic . Substance ab use. SURGICAL HISTORY : section. Exploratory laparatomy. ENCOUNTER: [facility] ACUITY: 2 weeks PAIN SCORE: 6/10 LOCATION: Right lower quadrant FLUID: Total volume of 3700 cc of clear, yellow fluid was removed. Fluid was discarded. Paracentesis was therapeutic only. Post procedure scanning reveals no hematoma or other complication. TECHNIQUE: 1. Ultrasound guidance for abdominal paracentesis. 2. Paracentesis. The risks, benefits, and alternatives to ultrasound guided paracentesis were explained to the patient in detail including the risk of bleeding and infection. Written and verbal informed consent was obt ained. With the patient on the ultrasound table, ultrasound imaging was used to select the most appropriate approach for paracentesis. Overlying skin was prepped and draped in the usual sterile fashion and wi th a local anesthetic, a dermatotomy was made with an 11 blade scalpel. A 6 [place] [id number] ca theter was introduced into the peritoneal cavity and fluid was collected. The patient tolerated the procedure well and left the ultrasound suite in stable condition. CONCLUSION: Uncomplicated ultrasound guided paracentesis. Nelson rOdoñez MD on November 25, 2016 at 16:35 Board Certified Radiologist. This report was verified electronically.
[2016-11-25 16:38] LABS: INTERNATIONAL NORMALIZED RATIO 1.4 RATIO; PROTHROMBIN TIME - PATIENT 15.5 SEC (9.8-11.6)
[2016-11-25 17:21] LABS: BACTERIA, URINE RARE /hpf; BLOOD, URINE TRACE (NEG); COMMENT (UR) CULTURE INDICATED; CULTURE IF INDICATED CULTURE INDICATED; GLUCOSE,URINE NEG (NEG); KETONE, URINE NEG (NEG); NITRITE,URINE NEG (NEG); SQUAMOUS EPITHELIAL CELL URINE <1 /hpf (0-5); URINE COLOR YELLOW (YELLW/STRAW)
[2016-11-25] MEDS ORDERED: VANCOMYCIN 1,000 MG/NS 250 ML IV SCH ×2 (18:00)
--- NOTE | 2016-11-25 23:44 | HHI.PR ---
Subjective Remarks Patient seen this morning around 9 AM. She says she is feeling all right. Denies any chest pain or shortness of breath. She denies any abdominal pain, however does say sure abdomen is becoming distended again. , Paracentesis ordered, with labs. Objective Vital Signs Date Time Temp Pulse Resp B/P Pulse Ox O2 Delivery O2 Flow Rate FiO2 11/25/16 20:00 96.6 93 18 116/67 99 11/25/16 18:35 98.5 86 14 108/73 98 11/25/16 14:20 95.9 81 20 109/74 100 11/25/16 13:44 97.0 80 14 104/67 98 11/25/16 13:43 97.1 98 14 113/72 92 11/25/16 11:20 97.0 83 14 111/70 97 11/25/16 07:50 96.1 80 20 101/76 92 11/25/16 04:00 99.6 103 17 114/72 96 11/25/16 00:00 102.6 102 16 102/68 97 I/O 11/24/16 11/24/16 11/24/16 11/25/16 11/25/16 11/25/16 07:00 15:00 23:00 07:00 15:00 23:00 Intake Total 812 ml 603 ml 945 ml 170 ml Output Total 200 ml 200 ml Balance 812 ml 603 ml 745 ml -30 ml Intake Oral 240 ml 227 ml 945 ml 120 ml IV Total 572 ml 376 ml Albumin 50 ml Output Urine Total 200 ml 200 ml # Voids 1 6 2 3 1 # Bowel Movements 0 0 Result Diagram: 11/25/16 0611 11/25/16 0611 Objective Remarks GENERAL: cachectic 51-year-old female sitting up in bed. Appears comfortable.examunchanged. SKIN: Warm and dry.as before, patient has areas of ivermectin patient consistent with recent scabies. No active lesions observed. unchnaged HEAD: Normocephalic. EYES: No scleral icterus. No injection or drainage. NECK: Supple, trachea midline. No JVD or lymphadenopathy. CARDIOVASCULAR: Regular rate and rhythm without murmurs, gallops, or rubs. RESPIRATORY: Breath sounds equal bilaterally. No accessory muscle use. GASTROINTESTINAL: Abdomen soft, non-tender, patient's abdomen is distended. No rebound or guarding MUSCULOSKELETAL: No cyanosis, or edema. BACK: Nontender without obvious deformity. No CVA tenderness. A/P Assessment and Plan 11/25/16 Intermittent fevers. Follow-up cultures. Discussed with infectious disease. What appears to be atelectasis on chest x-ray. Incentive spirometry, echo,, Augmentin. Gradually worsening abdominal distention, with requisite atelectasis which could be causing intermittent fevers. Discussed with infectious disease. Paracentesis ordered, with labs //Severe symptomatic Hypocalcemia. Persistent //Severe symptomatic Hypokalemia -Received Ca gluconate in the ED and KCL IV -Corrected for albumin of 0.8, calcium normal (our lab uses some different correction) //HIV positive. 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 PML (low CD4 count per records 08/10), patient with dysphagia, altered mental status , concern for PML/HIV dementia , pt is noncompliant with meds -New CD4 count less than 20 -ID consult appreciated, and follow up with ID as outpatient. - MRI no PML -11/20. Add Bactrim and azithromycin prophylaxis. No CMV on file. Can follow up with ID as outpatient. -11/21. Continue prophylaxis. Will need to follow up with ID as outpatient and start on HIV meds //fever overnight 11/21. blood cultures drawn, chest x-ray and urinalysis unremarkable. Continue to monitor for signs of infection. -no further fevers. Cultures negative so far. //Left lower lobe, healthcare associated pneumonia. -5/ Antibiotics started due to fever 11/24 overnight. Chest x-ray revealed left lower lobe pneumonia Continue antibiotics. Infectious disease consultation. //Thrush -Improved -Magic mouthwash, continue on fluconazole //Dysphagia poss 2/2 tara esophagitis //Severe ascites //Coagulopathy elevated INR received vit K 11/14 S/P paracentesis 11/15/16. No infection. No malignancy on cytology. -Appreciate GI assistance. -On fluconazole and magic wash as above -cardiology indicates patient is at moderate/severe risk for GI procedures and not advised. //NSTEMI . Elevated troponin. Patient c/o chest pain 11/13 at night. Troponin trending up. Cardiology consulted. I discussed with Dr Chet Jerry cardiology . Patient decided for medical management and non invasive procedures. Patient also with elevated Ddimer, CTA to r/o PE is negative. 2D ECHO EF WNL //Right arm swelling. Improved. Ultrasound negative for DVT. //Normocytic anemia, noted HGB drop to 7.6 and elevated troponin 11/14 to decreased the demand on heart. 11/14 transfuse 2 U PRBC . H/H stable after transfusion. Monitor. -Much improved after transfusion. 11/14 = Stable. Continue to monitor. //Hypoalbuminemia, severe alb 0.8 -Likely secondary to malnutrition as below. //Severe Protein calorie malnutrition, cachectic, muscle waisting, low albumin. Prealbumin 3. Alb 0.8. -11/20. Add Ensure supplement. //Prophylaxis. Patient already with coagulopathy. SCDs. //scabies. resolved s/p second treatment. no longer needs isolation. Discharge Planning patient will need inpatient rehabilitation/SNF. Appreciate case management assistance. Will need to be on prophylaxis for HIV. Will need follow-up with infectious disease as outpatient to start back on HAART meds. Julius Brooke MD November 25, 2016 23:44
[2016-11-26] VITALS: BP 111/73; PULSE 95; RESP 18; TEMP 96.9; O2SAT 99
[2016-11-26] MEDS: MORPHINE SULFATE 4 MG/ML INJ IV PUSH PRN (01:01)
[2016-11-26 04:00] VITALS: BP 110/70; PULSE 95; RESP 18; TEMP 96.4; O2SAT 99
[2016-11-26] MEDS: PANTOPRAZOLE SODIUM 40 MG VIAL IV PUSH SCH ×2 (05:36→17:38)
[2016-11-26 08:00] VITALS: BP 106/62; PULSE 105; RESP 18; TEMP 98; O2SAT 98
[2016-11-26] MEDS: SODIUM CHLORIDE 0.9% FLUSH 10 ML FLUSH IV FLUSH SCH ×2 (09:00→21:07)
[2016-11-26] MEDS: SULFAMETHOXAZOLE-TRIMETHOPRIM DS 800-160 MG TAB PO SCH (09:30)
[2016-11-26] MEDS: CALCIUM CARBONATE 500 MG CHEWABLE TAB CHEW SCH ×2 (09:30→21:06)
[2016-11-26] MEDS: SPIRONOLACTONE 25 MG TAB PO SCH (09:30)
[2016-11-26] MEDS: FUROSEMIDE 20 MG/2 ML VIAL IV PUSH SCH (09:30)
[2016-11-26] MEDS: LEVOFLOXACIN 500 MG TAB PO SCH (09:30)
[2016-11-26] MEDS: ASPIRIN 81 MG CHEW TAB CHEW SCH (09:30)
[2016-11-26] MEDS: NYSTAT/DIPHENHY/LIDO MOUTHWASH (Adult) 120ML SWISH-SWAL SCH ×4 (09:31→21:06)
[2016-11-26] MEDS ORDERED: PHARMACY ORDERED LAB ONE (11:45)
[2016-11-26 12:00] VITALS: BP 117/70; PULSE 100; RESP 20; TEMP 97.3; O2SAT 98
[2016-11-26 13:15] LABS: HEMATOCRIT 26.6 % (35.0-46.0); MEAN CELL VOLUME 91.8 FL (80.0-100.0); MEAN CORPUSCULAR HEMOGLOBIN 31.6 PG (27.0-34.0); MEAN CORPUSCULAR HGB CONC 34.4 % (32.0-36.0); PLATELET COUNT 82 TH/MM3 (150-450); RED CELL DISTRIBUTION WIDTH 16.6 % (11.6-17.2); WHITE BLOOD COUNT 6.3 TH/MM3 (4.0-11.0)
[2016-11-26 13:18] LABS: HEMO FLAGS AUTO DIFF
[2016-11-26 13:25] LABS: BICARBONATE 25.3 MEQ/L (21.0-32.0); POTASSIUM 4.2 MEQ/L (3.5-5.1)
[2016-11-26 13:26] LABS: VANCOMYCIN TROUGH 12.8 MCG/ML (5.0-10.0)
--- NOTE | 2016-11-26 13:30 | RADRPT ---
EXAM DATE/TIME: 11/26/2016 12:50 [facility] COMPARISON: CHEST SINGLE AP, November 23, 2016, 22:38. INDICATIONS : Pneumonia, short of breath. MEDICAL HISTORY : None. SURGICAL HISTORY : None. ENCOUNTER: Subsequent ACUITY: 1 week PAIN SCORE: 0/10 LOCATION: Bilateral chest FINDINGS: There is a sizable area of consolidation in the left lower lobe. This has improved compared to previo us dated 11/23/16. The remainder of the parenchyma is clear. The heart is normal in size. The bony str uctures are intact. CONCLUSION: Consolidation/pneumonia at the left lung base improved when compared to previous. Andi Puente MD on November 26, 2016 at 13:27 Board Certified Radiologist. This report was verified electronically.
[2016-11-26 13:53] LABS: BANDS 6 % (0-6); EOSINOPHILS 1 % (0-4); PLATELET ESTIMATE SMEAR LOW (NORMAL); PLATELET MORPHOLOGY ENLARGED (NORMAL); POLYS (SEG NEUTROPHILS) 90 % (16-70); SCAN/DIFF FINAL DIFF MANUAL; WBC DIFF SAMPLE 100
[2016-11-26 13:54] LABS: OVALOCYTES 2+ (NORMAL)
[2016-11-26] MEDS: DOCUSATE SODIUM 100 MG CAP PO SCH ×2 (14:42→23:41)
[2016-11-26 15:47] VITALS: BP 103/69; PULSE 89; RESP 16; TEMP 96.9; O2SAT 99
--- NOTE | 2016-11-26 15:56 | HHI.IDPN ---
Subjective Subjective Remarks ID Xcover for . Overnight events reviewed. Sitting up in bed Reports feeling better. Complains of abdominal distention. Fever again last night She has no new complaint Minimal cough Not SOB, no chest pain Denies abdominal pain No diarrhea No nausea or vomiting Swallowing ok Voiding ok No central line Has very low CD4 counts CXR with new LLL consolidation UA still not done yet S/P 2 Rx for scabies Antibiotics Vancomycin Levaquin Bactrim Azithro Lines PIV Past Medical History Reviewed Allergies: Coded Allergies: No Known Allergies (Verified , 11/12/16) Objective . Vital Signs Date Time Temp Pulse Resp B/P Pulse Ox O2 Delivery O2 Flow Rate FiO2 11/26/16 15:47 96.9 89 16 103/69 99 11/26/16 12:00 97.3 100 20 117/70 98 11/26/16 08:00 98.0 105 18 106/62 98 11/26/16 04:00 96.4 95 18 110/70 99 11/26/16 00:00 96.9 95 18 111/73 99 11/25/16 20:00 92 11/25/16 20:00 96.6 93 18 116/67 99 11/25/16 18:35 98.5 86 14 108/73 98 11/25/16 11/25/16 11/26/16 15:00 23:00 07:00 Intake Total 945 ml 170 ml 240 ml Output Total 200 ml 200 ml Balance 745 ml -30 ml 240 ml Intake Oral 945 ml 120 ml 240 ml Albumin 50 ml Output Urine Total 200 ml 200 ml # Voids 3 1 2 # Bowel Movements 0 . Laboratory Tests Test 11/25/16 11/26/16 06:11 12:30 White Blood Count 8.1 TH/MM3 6.3 TH/MM3 Red Blood Count 2.93 MIL/MM3 2.90 MIL/MM3 Hemoglobin 9.3 GM/DL 9.2 GM/DL Hematocrit 27.9 % 26.6 % Mean Corpuscular Volume 95.3 FL 91.8 FL Mean Corpuscular Hemoglobin 31.9 PG 31.6 PG Mean Corpuscular Hemoglobin 33.5 % 34.4 % Concent Red Cell Distribution Width 16.8 % 16.6 % Platelet Count 78 TH/MM3 82 TH/MM3 Mean Platelet Volume 11.2 FL 11.4 FL Neutrophils (%) (Auto) 81.5 % % Lymphocytes (%) (Auto) 9.4 % % Monocytes (%) (Auto) 8.0 % % Eosinophils (%) (Auto) 0.1 % % Basophils (%) (Auto) 1.0 % % Neutrophils # (Auto) 6.6 TH/MM3 TH/MM3 Lymphocytes # (Auto) 0.8 TH/MM3 TH/MM3 Monocytes # (Auto) 0.6 TH/MM3 TH/MM3 Eosinophils # (Auto) 0.0 TH/MM3 TH/MM3 Basophils # (Auto) 0.1 TH/MM3 TH/MM3 CBC Comment AUTO DIFF AUTO DIFF Differential Total Cells 100 100 Counted Neutrophils % (Manual) 67 % 90 % Band Neutrophils % 22 % 6 % Lymphocytes % 3 % 1 % Monocytes % 6 % 2 % Eosinophils % 1 % 1 % Neutrophils # (Manual) 7.2 TH/MM3 6.0 TH/MM3 Differential Comment FINAL DIFF FINAL DIFF MANUAL MANUAL Plasma Cells 1 % Platelet Estimate LOW LOW Platelet Morphology Comment NORMAL ENLARGED Red Cell Morphology Comment Ovalocytes 2+ Laboratory Tests Test 11/25/16 11/26/16 06:11 12:30 Sodium Level 139 MEQ/L 140 MEQ/L Potassium Level 4.3 MEQ/L 4.2 MEQ/L Chloride Level 110 MEQ/L 107 MEQ/L Carbon Dioxide Level 22.8 MEQ/L 25.3 MEQ/L Anion Gap 6 MEQ/L 8 MEQ/L Blood Urea Nitrogen 13 MG/DL 10 MG/DL Creatinine 1.13 MG/DL 0.98 MG/DL Estimat Glomerular Filtration 61 ML/MIN 72 ML/MIN Rate Random Glucose 97 MG/DL 101 MG/DL Calcium Level 7.4 MG/DL 7.7 MG/DL Phosphorus Level 3.7 MG/DL Magnesium Level 2.0 MG/DL Albumin 1.2 GM/DL Microbiology Date/Time Procedure Status Source Growth 11/23/16 23:50 Aerobic Blood Culture - Preliminary Resulted Blood Peripheral NO GROWTH IN 2 DAYS 11/23/16 23:50 Anaerobic Blood Culture - Preliminary Resulted Blood Peripheral NO GROWTH IN 2 DAYS 11/23/16 23:55 Aerobic Blood Culture - Preliminary Resulted Blood Peripheral NO GROWTH IN 2 DAYS 11/23/16 23:55 Anaerobic Blood Culture - Preliminary Resulted Blood Peripheral NO GROWTH IN 2 DAYS 11/25/16 14:45 Urine Culture - Preliminary Resulted Urine Clean Catch <10,000 CFU/ML GRAM POSITIVE ORSY 11/25/16 16:01 Mycobacterial Culture Received Blood Peripheral Pending Imaging Chest X-Ray 11/23/16 0000 Signed Impressions: Service Date/Time: Wednesday, November 23, 2016 22:38 - CONCLUSION: Left lower lobe consolidation and left effusion. Nelson Pinon MD Upper Extremity Ultrasound 11/18/16 0000 Signed Impressions: Service Date/Time: October 14:32 - CONCLUSION: Soft tissue edema with no evidence of deep venous thrombosis. Rad Cueto MD Cyst Biopsy Asp-Paracentesis US 11/15/16 0000 Signed Impressions: Service Date/Time: Tuesday, November 15, 2016 08:47 - CONCLUSION: Uncomplicated ultrasound guided paracentesis. Grant Villasenor MD CT Angiography 11/14/16 0000 Signed Impressions: Service Date/Time: Monday, November 14, 2016 17:44 - CONCLUSION: 1. The study is negative for pulmonary embolism. 2. Bilateral lower lobe consolidation and bilateral pleural effusions, left more severe than right. Jose Long MD Brain MRI 11/14/16 0000 Signed Impressions: Service Date/Time: Monday, November 14, 2016 17:17 - CONCLUSION: No acute findings in the brain. Lacunar infarcts in the jered, unchanged from 2013. Jose Long MD Abdomen/Pelvis CT 11/14/16 0000 Signed Impressions: Service Date/Time: Monday, November 14, 2016 08:14 - CONCLUSION: 1. Cirrhotic liver with a large amount of ascites. There are varices in the left upper quadrant around the spleen. 2. Mild bilateral pleural effusions with accompanying atelectasis or consolidation at the lung bases. 3. Small nodule seen in the right middle lobe region on the first image obtained. This was present on a prior CTA from 08/20/2015. Nelson Pinon MD Abdomen X-Ray 11/12/16 0729 Signed Impressions: Service Date/Time: Saturday, November 12, 2016 07:53 - CONCLUSION: Small bowel ileus without evidence of pathologic distention. No evidence of free air or significant mass effect.. Yaya Guzman MD Physical Exam GENERAL:Cachectic, awake and alert, NAD SKIN: Cool and dry. Has improving rash HEENT: [place] conjunctiva. No scleral icterus. No injection or drainage. ENT: Nose without bleeding, purulent drainage. She is edentulous, moist mucosa, no thrush. White coating tongue. NECK: Supple, nontender, no meningeal signs. CARDIOVASCULAR: Regular rate and rhythm without murmurs, gallops, or rubs. RESPIRATORY: Clear to auscultation. Decreased at bases. Breath sounds equal bilaterally. No wheezes, rales, or rhonchi. GASTROINTESTINAL: Abdomen is distended, bowel sounds present and hypoactive, not tenderness. No rebound MUSCULOSKELETAL: Extremities without clubbing, cyanosis, or edema. No joint effusion, good ROM. No calf tenderness. 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 Continue Bactrim for PCP prophylaxis. Continue Azithro for MARLA prophylaxis. Consider repeat US abdomen: ? ascites as cause for SOB. Follow [facility] for AFB Follow CMV PCR Repeat CXR in few days Monitor temps Monitor progress She needs follow-up with her HIV provider to reevaluate her HAART Rx Will see prn over the weekend. to resume care on Tuesday11/29/16. If any issues in the interim please call me or if any positive cultures etc. Lynsey Metcalf MD November 26, 2016 15:56
[2016-11-26 20:00] VITALS: BP 96/65; PULSE 95; PULSE 99; RESP 16; TEMP 96.1; O2SAT 99
--- NOTE | 2016-11-26 23:22 | HHI.PR ---
Subjective Remarks patient seen this morning around 9:30 AM. She says she is feeling all right. This her abdomen feels comfortable. She denies any chest pain or shortness of breath. Objective Vital Signs Date Time Temp Pulse Resp B/P Pulse Ox O2 Delivery O2 Flow Rate FiO2 11/26/16 20:00 96.1 95 16 96/65 99 11/26/16 15:47 96.9 89 16 103/69 99 11/26/16 12:00 97.3 100 20 117/70 98 11/26/16 08:00 98.0 105 18 106/62 98 11/26/16 04:00 96.4 95 18 110/70 99 11/26/16 00:00 96.9 95 18 111/73 99 I/O 11/25/16 11/25/16 11/25/16 11/26/16 11/26/16 11/26/16 07:00 15:00 23:00 07:00 15:00 23:00 Intake Total 945 ml 170 ml 240 ml 240 ml 480 ml Output Total 200 ml 200 ml 200 ml Balance 745 ml -30 ml 240 ml 240 ml 280 ml Intake Oral 945 ml 120 ml 240 ml 240 ml 480 ml Albumin 50 ml Output Urine Total 200 ml 200 ml 200 ml # Voids 2 3 1 2 # Bowel Movements 0 Result Diagram: 11/26/16 1230 11/26/16 1230 Objective Remarks GENERAL: cachectic 51-year-old female sitting up in bed. Appears comfortable. SKIN: Warm and dry.as before, patient has areas consistent with recent scabies. No active lesions observed. lesions continue to heal. HEAD: Normocephalic. EYES: No scleral icterus. No injection or drainage. NECK: Supple, trachea midline. No JVD or lymphadenopathy. CARDIOVASCULAR: Regular rate and rhythm without murmurs, gallops, or rubs. RESPIRATORY: Breath sounds equal bilaterally. No accessory muscle use. GASTROINTESTINAL: Abdomen soft, non-tender, patient's abdomen is distended. No rebound or guarding MUSCULOSKELETAL: No cyanosis, or edema. BACK: Nontender without obvious deformity. No CVA tenderness. A/P Assessment and Plan 11/26/16 Intermittent fevers. Improved after paracentesis, as well as starting Levaquin. What appears to be pneumonia versus atelectasis on chest x-ray. Appears to have improved on repeat chest x-ray after starting incentive spirometer and Acapella, as well as paracentesis.Discussed with infectious disease. We'll continue antibiotics. Gradually worsening abdominal distention. Much improved after paracentesis, however unfortunately labs, which were ordered, were not sent. //Severe symptomatic Hypocalcemia. Persistent //Severe symptomatic Hypokalemia -Received Ca gluconate in the ED and KCL IV -Corrected for albumin of 0.8, calcium normal (our lab uses some different correction) //HIV positive. 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 PML (low CD4 count per records 08/10), patient with dysphagia, altered mental status , concern for PML/HIV dementia , pt is noncompliant with meds -New CD4 count less than 20 -ID consult appreciated, and follow up with ID as outpatient. - MRI no PML -11/20. Add Bactrim and azithromycin prophylaxis. No CMV on file. Can follow up with ID as outpatient. -11/21. Continue prophylaxis. Will need to follow up with ID as outpatient and start on HIV meds //fever overnight 11/21. blood cultures drawn, chest x-ray and urinalysis unremarkable. Continue to monitor for signs of infection. -no further fevers. Cultures negative so far. //Left lower lobe, healthcare associated pneumonia. -5/3 Antibiotics started due to fever /3 overnight. Chest x-ray revealed left lower lobe pneumonia Continue antibiotics. Infectious disease consultation. //Thrush -Improved -Magic mouthwash, continue on fluconazole //Dysphagia poss 2/2 tara esophagitis //Severe ascites //Coagulopathy elevated INR received vit K 11/14 S/P paracentesis 11/15/16. No infection. No malignancy on cytology. -Appreciate GI assistance. -On fluconazole and magic wash as above -cardiology indicates patient is at moderate/severe risk for GI procedures and not advised. //NSTEMI . Elevated troponin. Patient c/o chest pain 11/13 at night. Troponin trending up. Cardiology consulted. I discussed with Dr Chet Jerry cardiology . Patient decided for medical management and non invasive procedures. Patient also with elevated Ddimer, CTA to r/o PE is negative. 2D ECHO EF WNL //Right arm swelling. Improved. Ultrasound negative for DVT. //Normocytic anemia, noted HGB drop to 7.6 and elevated troponin 11/14 to decreased the demand on heart. 11/14 transfuse 2 U PRBC . H/H stable after transfusion. Monitor. -Much improved after transfusion. 11/14 = Stable. Continue to monitor. //Hypoalbuminemia, severe alb 0.8 -Likely secondary to malnutrition as below. //Severe Protein calorie malnutrition, cachectic, muscle waisting, low albumin. Prealbumin 3. Alb 0.8. -11/20. Add Ensure supplement. //Prophylaxis. Patient already with coagulopathy. SCDs. //scabies. resolved s/p second treatment. no longer needs isolation. Discharge Planning patient will need inpatient rehabilitation/SNF. Appreciate case management assistance. Will need to be on prophylaxis for HIV. Will need follow-up with infectious disease as outpatient to start back on HAART meds. Julius Brooke MD November 26, 2016 23:22
[2016-11-27] VITALS (8 sets, daily range): BP systolic 96–109; BP diastolic 62–68; PULSE 84–97; RESP 16–18; TEMP 95.9–96.9; O2SAT 97–99
[2016-11-27] MEDS: PANTOPRAZOLE SODIUM 40 MG VIAL IV PUSH SCH ×2 (04:19→18:10)
[2016-11-27] MEDS: MORPHINE SULFATE 4 MG/ML INJ IV PUSH PRN ×2 (04:20→23:37)
[2016-11-27 07:34] LABS: AUTOMATED NEUTROPHIL # 4.6 TH/MM3 (1.8-7.7); BASOPHIL % 0.4 % (0.0-2.0); HEMATOCRIT 26.2 % (35.0-46.0); LYMPH % 8.6 % (9.0-44.0); LYMPHOCYTE # 0.5 TH/MM3 (1.0-4.8); MEAN CORPUSCULAR HEMOGLOBIN 30.9 PG (27.0-34.0); MEAN CORPUSCULAR HGB CONC 33.6 % (32.0-36.0); MONO % 10.1 % (0.0-8.0); NEUT % 80.9 % (16.0-70.0); PLATELET COUNT 76 TH/MM3 (150-450); RED BLOOD COUNT 2.85 MIL/MM3 (4.00-5.30); RED CELL DISTRIBUTION WIDTH 16.5 % (11.6-17.2); WHITE BLOOD COUNT 5.7 TH/MM3 (4.0-11.0)
[2016-11-27 07:42] LABS: HEMO FLAGS AUTO DIFF
[2016-11-27 07:59] LABS: BICARBONATE 24.7 MEQ/L (21.0-32.0); POTASSIUM 4.4 MEQ/L (3.5-5.1)
--- NOTE | 2016-11-27 08:47 | RADRPT ---
EXAM DATE/TIME: 11/27/2016 08:31 [facility] COMPARISON: CHEST, AP & LAT, November 26, 2016, 12:50. CHEST SINGLE AP, November 21, 2016, 11:53. CHEST PA & LAT, 2015, 12:31. INDICATIONS : Evaluate for pneumonia. Shortness of breath. MEDICAL HISTORY : Scabies. Seizures. Cirrhosis. Cerebrovascular accident. Liver disease. HIV. Substance abuse. SURGICAL HISTORY : None. ENCOUNTER: Subsequent ACUITY: 1 week PAIN SCORE: 0/10 LOCATION: chest FINDINGS: PA and lateral views of the chest were obtained and demonstrate mild patchy opacity at the left lung base without significant change. There is mild blunting of the left costophrenic angle consistent wit h a small effusion. The study is more Midinspiratory. The cardiomediastinal contours are unremarkable . Osseous structures are intact. CONCLUSION: Mild patchy opacity remains at the left lung base without significant change. There i s apparent small effusion. Rad Cueto MD on November 27, 2016 at 8:42 Board Certified Radiologist. This report was verified electronically.
[2016-11-27 08:52] LABS: OVALOCYTES 1+ (NORMAL); PLATELET ESTIMATE SMEAR LOW (NORMAL); PLATELET MORPHOLOGY NORMAL (NORMAL); SCAN/DIFF AUTO DIFF CONFIRMED
[2016-11-27] MEDS: ASPIRIN 81 MG CHEW TAB CHEW SCH (10:36)
[2016-11-27] MEDS: CALCIUM CARBONATE 500 MG CHEWABLE TAB CHEW SCH ×2 (10:36→22:02)
[2016-11-27] MEDS: SPIRONOLACTONE 25 MG TAB PO SCH (10:36)
[2016-11-27] MEDS: DOCUSATE SODIUM 100 MG CAP PO SCH (10:36)
[2016-11-27] MEDS: SULFAMETHOXAZOLE-TRIMETHOPRIM DS 800-160 MG TAB PO SCH (10:36)
[2016-11-27] MEDS: LEVOFLOXACIN 500 MG TAB PO SCH (10:36)
[2016-11-27] MEDS: NYSTAT/DIPHENHY/LIDO MOUTHWASH (Adult) 120ML SWISH-SWAL SCH ×4 (10:36→22:02)
[2016-11-27] MEDS: SODIUM CHLORIDE 0.9% FLUSH 10 ML FLUSH IV FLUSH SCH ×2 (10:37→22:03)
[2016-11-27] MEDS: FUROSEMIDE 20 MG/2 ML VIAL IV PUSH SCH (10:37)
--- NOTE | 2016-11-27 13:50 | HHI.PR ---
Subjective Remarks Patient seen for follow up HIV with low CD4 count, LLL PNA. 11/27/2016 - patient seen and evaluated this morning. No acute events overnight. She has no complaints this morning. No significant ab pain or N/V. Tolerating PO. No major throat pain. Denies CP or SOB. Objective Vitals Vital Signs Date Time Temp Pulse Resp B/P Pulse Ox O2 Delivery O2 Flow Rate FiO2 11/27/16 12:15 96.6 86 16 99/62 97 11/27/16 08:14 96.3 88 18 96/65 98 11/27/16 04:00 96.7 88 16 98/65 98 11/27/16 00:00 96.4 96 16 109/68 99 11/26/16 20:00 96.1 95 16 96/65 99 11/26/16 20:00 99 11/26/16 15:47 96.9 89 16 103/69 99 I/O 11/26/16 11/26/16 11/26/16 11/27/16 11/27/16 11/27/16 07:00 15:00 23:00 07:00 15:00 23:00 Intake Total 240 ml 240 ml 480 ml 240 ml 360 ml Output Total 200 ml Balance 240 ml 240 ml 280 ml 240 ml 360 ml Intake Oral 240 ml 240 ml 480 ml 240 ml 360 ml Output Urine Total 200 ml # Voids 2 1 2 Result Diagram: 11/27/16 0540 11/27/16 0540 Objective Remarks GENERAL: cachectic 51-year-old female sitting up in bed. Appears comfortable. SKIN: Warm and dry.as before, patient has areas consistent with recent scabies. No active lesions observed. lesions continue to heal. HEAD: Normocephalic. EYES: No scleral icterus. No injection or drainage. NECK: Supple, trachea midline. No JVD or lymphadenopathy. CARDIOVASCULAR: Regular rate and rhythm without murmurs, gallops, or rubs. RESPIRATORY: Breath sounds equal bilaterally. No accessory muscle use. GASTROINTESTINAL: Abdomen soft, non-tender. Moderate abdominal distension with + fluid wave. No rebound or guarding. +bs. MUSCULOSKELETAL: No cyanosis, or edema. BACK: Nontender without obvious deformity. No CVA tenderness. PSYCH: Somewhat flat affect. 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 //AIDS //Noncompliant with meds and follow up -Acute encephalopathy infectious likely/HIV dementia. Patient non-compliant with meds. New CD4 count less than 20. -ID consult appreciated, and follow up with ID as outpatient. -MRI no PML -11/20. Add Bactrim and azithromycin prophylaxis. No CMV on file. Can follow up with ID as outpatient. -11/21. Continue prophylaxis. Will need to follow up with ID as outpatient and start on HIV meds //Fever -most recent 102.6F on 11/25 -blood cx 11/23 negative -urine cx 11/25 growing staph aureus. Discussed with ID. Repeat blood cxs. Cont current antibiotic regimen. //Left lower lobe, healthcare associated pneumonia. -11/24 Antibiotics started due to fever 11/24 overnight. Chest x-ray revealed left lower lobe pneumonia. Repeat CXR today shows persistent, patchy, LLL infiltrate. -cont levaquin. On azithromycin + bactrim ppx, as above. //Thrush -Improved -Magic mouthwash. S/p tx with fluconazole. //Severe ascites //Coagulopathy elevated INR received vit K 11/14 -S/P paracentesis 11/15/16. No infection. No malignancy on cytology. -Appreciate GI assistance. -cardiology indicates patient is at moderate/severe risk for GI procedures and not advised. //NSTEMI . -Elevated troponin. Patient c/o chest pain 11/13 at night. Troponin trending up. Cardiology consulted. Discussed with Dr Chet Jerry cardiology. Patient decided for medical management and non invasive procedures. Patient also with elevated Ddimer, CTA to r/o PE is negative. 2D ECHO EF WNL //Right arm swelling. -Improved. Ultrasound negative for DVT. //Normocytic anemia -Noted HGB drop to 7.6 and elevated troponin 11/14 to decreased the demand on heart. 11/14 transfuse 2 U PRBC . H/H stable after transfusion, but slowly trending down. Today is 8.8. Monitor daily CBC. //Hypoalbuminemia, severe alb 0.8 -Likely secondary to malnutrition as below. //Severe Protein calorie malnutrition, cachectic, muscle waisting, low albumin. Prealbumin 3. Alb 0.8. -11/20. Add Ensure supplement. //Prophylaxis. Patient already with coagulopathy. SCDs. //scabies. resolved s/p second treatment. no longer needs isolation. Discharge Planning Likely DC home Tuesday with ID follow up. Repeat blood cultures ordered, given new + Urine Cx, as above. Problem Qualifiers (1) Anemia: Qualified Code: D64.9 - Anemia, unspecified type (2) Dysphagia: Qualified Code: R13.10 - Dysphagia, unspecified type Gary Crisostomo MD R3 November 27, 2016 13:50
[2016-11-28] VITALS (9 sets, daily range): BP systolic 93–130; BP diastolic 56–75; PULSE 70–94; RESP 16–20; TEMP 96.1–99; O2SAT 95–100
[2016-11-28] MEDS: PANTOPRAZOLE SODIUM 40 MG VIAL IV PUSH SCH ×2 (05:32→14:03)
[2016-11-28 06:10] LABS: HEMATOCRIT 25.3 % (35.0-46.0); MEAN CELL VOLUME 91.3 FL (80.0-100.0); MEAN CORPUSCULAR HEMOGLOBIN 31.3 PG (27.0-34.0); MEAN CORPUSCULAR HGB CONC 34.3 % (32.0-36.0); PLATELET COUNT 84 TH/MM3 (150-450); RED BLOOD COUNT 2.77 MIL/MM3 (4.00-5.30); RED CELL DISTRIBUTION WIDTH 16.4 % (11.6-17.2); WHITE BLOOD COUNT 5.5 TH/MM3 (4.0-11.0)
[2016-11-28 06:32] LABS: ALT (GPT) 16 U/L (10-53); ANION GAP 9 MEQ/L (5-15); AST (GOT) 48 U/L (15-37); BICARBONATE 21.2 MEQ/L (21.0-32.0); BLOOD UREA NITROGEN 11 MG/DL (7-18); CHLORIDE 108 MEQ/L (98-107); GLOMERULAR FILTRATION RATE 68 ML/MIN (>89); POTASSIUM 4.4 MEQ/L (3.5-5.1); SODIUM (NA) 138 MEQ/L (136-145)
[2016-11-28 06:35] LABS: ALKALINE PHOSPHATASE 165 U/L (45-117); TOTAL BILIRUBIN ADULT 0.8 MG/DL (0.2-1.0)
[2016-11-28 06:48] LABS: REVIEW FLAG FINAL
[2016-11-28] MEDS: LEVOFLOXACIN 500 MG TAB PO SCH (07:53)
[2016-11-28] MEDS: SPIRONOLACTONE 25 MG TAB PO SCH (07:53)
[2016-11-28] MEDS: ASPIRIN 81 MG CHEW TAB CHEW SCH (07:53)
[2016-11-28] MEDS: SULFAMETHOXAZOLE-TRIMETHOPRIM DS 800-160 MG TAB PO SCH (07:53)
[2016-11-28] MEDS: AZITHROMYCIN 600 MG TAB PO SCH (07:53)
[2016-11-28] MEDS: NYSTAT/DIPHENHY/LIDO MOUTHWASH (Adult) 120ML SWISH-SWAL SCH ×4 (07:54→20:53)
[2016-11-28] MEDS: FUROSEMIDE 20 MG/2 ML VIAL IV PUSH SCH (07:54)
[2016-11-28] MEDS: CALCIUM CARBONATE 500 MG CHEWABLE TAB CHEW SCH ×2 (07:54→20:53)
[2016-11-28] MEDS: SODIUM CHLORIDE 0.9% FLUSH 10 ML FLUSH IV FLUSH SCH ×2 (07:54→20:55)
--- NOTE | 2016-11-28 08:31 | HHI.PR ---
Subjective Remarks No acute events overnight. Afebrile, vital signs stable. Patient complains of pain in her left heel. Has no other complaints at this time. Objective Vitals Vital Signs Date Time Temp Pulse Resp B/P Pulse Ox O2 Delivery O2 Flow Rate FiO2 11/28/16 04:00 97.2 94 17 96/60 98 11/28/16 00:00 98.4 90 16 97/66 99 11/27/16 22:00 92 18 104/66 97 11/27/16 20:05 94 11/27/16 20:00 96.9 97 16 99/63 98 11/27/16 16:24 95.9 84 16 101/68 97 11/27/16 12:15 96.6 86 16 99/62 97 I/O 11/27/16 11/27/16 11/27/16 11/28/16 11/28/16 11/28/16 07:00 15:00 23:00 07:00 15:00 23:00 Intake Total 240 ml 360 ml 720 ml 240 ml Output Total 250 ml Balance 240 ml 360 ml 720 ml -10 ml Intake Oral 240 ml 360 ml 720 ml 240 ml Output Urine Total 250 ml # Voids 1 2 2 Result Diagram: 11/28/16 0543 11/28/16 0543 Objective Remarks GENERAL: cachectic 51-year-old female sitting up in bed. Appears comfortable. SKIN: Warm and dry.as before, patient has areas consistent with recent scabies. No active lesions observed. lesions continue to heal. HEAD: Normocephalic. EYES: No scleral icterus. No injection or drainage. NECK: Supple, trachea midline. No JVD or lymphadenopathy. CARDIOVASCULAR: Regular rate and rhythm without murmurs, gallops, or rubs. RESPIRATORY: Breath sounds equal bilaterally. No accessory muscle use. GASTROINTESTINAL: Abdomen soft, non-tender. Moderate abdominal distension with + fluid wave. No rebound or guarding. +bs. MUSCULOSKELETAL: No cyanosis, or edema. BACK: Nontender without obvious deformity. No CVA tenderness. PSYCH: Somewhat flat affect. 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 //AIDS //Noncompliant with meds and follow up -Acute encephalopathy infectious likely/HIV dementia. Patient non-compliant with meds. New CD4 count less than 20. -ID consult appreciated, and follow up with ID as outpatient. -MRI no PML -11/20. Add Bactrim and azithromycin prophylaxis. No CMV on file. Can follow up with ID as outpatient. -11/21. Continue prophylaxis. Will need to follow up with ID as outpatient and start on HIV meds //Fever -most recent 102.6F on 11/25 -blood cx 11/23 negative -urine cx 11/25 growing staph aureus. Discussed with ID. Repeat blood cxs. Cont current antibiotic regimen. //Left lower lobe, healthcare associated pneumonia. -11/24 Antibiotics started due to fever 11/24 overnight. Chest x-ray revealed left lower lobe pneumonia. Repeat CXR 11/27 shows persistent, patchy, LLL infiltrate. -cont levaquin. On azithromycin + bactrim ppx, as above. //Thrush -Improved -Magic mouthwash. S/p tx with fluconazole. //Severe ascites //Coagulopathy elevated INR received vit K 11/14 -S/P paracentesis 11/15/16. No infection. No malignancy on cytology. -Appreciate GI assistance. -cardiology indicates patient is at moderate/severe risk for GI procedures and not advised. //NSTEMI . -Elevated troponin. Patient c/o chest pain 11/13 at night. Troponin trending up. Cardiology consulted. Discussed with Dr Chet Jerry cardiology. Patient decided for medical management and non invasive procedures. Patient also with elevated Ddimer, CTA to r/o PE is negative. 2D ECHO EF WNL //Right arm swelling. -Improved. Ultrasound negative for DVT. //Normocytic anemia -Noted HGB drop to 7.6 and elevated troponin 11/14 to decreased the demand on heart. 11/14 transfuse 2 U PRBC . H/H stable after transfusion, but slowly trending down. Today is 8.7. Monitor daily CBC. //Hypoalbuminemia, severe alb 0.8 -Likely secondary to malnutrition as below. -Ensure supplementation with every meal //Severe Protein calorie malnutrition, cachectic, muscle waisting, low albumin. Prealbumin 3. Alb 0.8. -11/20. Add Ensure supplement. //Prophylaxis. Patient already with coagulopathy. SCDs. //scabies. resolved s/p second treatment. no longer needs isolation. Discharge Planning Likely DC home Tuesday with ID follow up. Repeat blood cultures ordered, given new + Urine Cx, as above. Problem Qualifiers (1) Anemia: Qualified Code: D64.9 - Anemia, unspecified type (2) Dysphagia: Qualified Code: R13.10 - Dysphagia, unspecified type Ct Gannon MD R3 November 28, 2016 08:31
[2016-11-28] MEDS: DOCUSATE SODIUM 100 MG CAP PO SCH ×2 (12:11)
[2016-11-28] MEDS: MORPHINE SULFATE 4 MG/ML INJ IV PUSH PRN (20:54)
[2016-11-29] VITALS: BP 105/76; PULSE 87; RESP 17; TEMP 96.3; O2SAT 98
[2016-11-29] MEDS: MORPHINE SULFATE 4 MG/ML INJ IV PUSH PRN (00:28)
[2016-11-29 04:00] VITALS: BP 93/68; PULSE 84; RESP 16; TEMP 98; O2SAT 98
[2016-11-29] MEDS: PANTOPRAZOLE SODIUM 40 MG VIAL IV PUSH SCH (05:38)
[2016-11-29 06:54] LABS: AUTOMATED NEUTROPHIL # 3.5 TH/MM3 (1.8-7.7); BASOPHIL % 0.6 % (0.0-2.0); LYMPH % 12.3 % (9.0-44.0); LYMPHOCYTE # 0.6 TH/MM3 (1.0-4.8); MEAN CELL VOLUME 92.7 FL (80.0-100.0); MEAN CORPUSCULAR HEMOGLOBIN 30.4 PG (27.0-34.0); MEAN CORPUSCULAR HGB CONC 32.8 % (32.0-36.0); MONO % 13.6 % (0.0-8.0); NEUT % 73.5 % (16.0-70.0); PLATELET COUNT 85 TH/MM3 (150-450); RED BLOOD COUNT 3.02 MIL/MM3 (4.00-5.30); RED CELL DISTRIBUTION WIDTH 16.1 % (11.6-17.2); WHITE BLOOD COUNT 4.8 TH/MM3 (4.0-11.0)
[2016-11-29 07:05] LABS: HEMO FLAGS AUTO DIFF
[2016-11-29 07:24] LABS: BICARBONATE 21.2 MEQ/L (21.0-32.0); POTASSIUM 4.1 MEQ/L (3.5-5.1)
[2016-11-29 07:53] LABS: OVALOCYTES 1+ (NORMAL); PLATELET ESTIMATE SMEAR LOW (NORMAL); PLATELET MORPHOLOGY NORMAL (NORMAL); SCAN/DIFF AUTO DIFF CONFIRMED
[2016-11-29 08:00] VITALS: BP 109/68; PULSE 90; RESP 18; TEMP 98.8; O2SAT 99
[2016-11-29] MEDS: SULFAMETHOXAZOLE-TRIMETHOPRIM DS 800-160 MG TAB PO SCH (10:49)
[2016-11-29] MEDS: LEVOFLOXACIN 500 MG TAB PO SCH (10:49)
[2016-11-29] MEDS: CALCIUM CARBONATE 500 MG CHEWABLE TAB CHEW SCH (10:49)
[2016-11-29] MEDS: SPIRONOLACTONE 25 MG TAB PO SCH (10:49)
[2016-11-29] MEDS: ASPIRIN 81 MG CHEW TAB CHEW SCH (10:49)
[2016-11-29] MEDS: NYSTAT/DIPHENHY/LIDO MOUTHWASH (Adult) 120ML SWISH-SWAL SCH (10:49)
[2016-11-29] MEDS: FUROSEMIDE 20 MG/2 ML VIAL IV PUSH SCH (10:50)
[2016-11-29] MEDS: SODIUM CHLORIDE 0.9% FLUSH 10 ML FLUSH IV FLUSH SCH (10:50)
[2016-11-29 12:00] VITALS: BP 106/72; PULSE 86; RESP 18; TEMP 97.1; O2SAT 99
[2016-11-29] MEDS: DOCUSATE SODIUM 100 MG CAP PO SCH ×2 (12:00)
[2016-11-29] MEDS ORDERED: Aspirin Chew CHEW (12:05)
[2016-11-29] MEDS ORDERED: CALC500C16 CHEW (12:05)
[2016-11-29] MEDS ORDERED: OMEP40CA2 PO (12:05)
[2016-11-29] MEDS ORDERED: AZIT600T PO (12:05)
[2016-11-29] MEDS ORDERED: LEVA500T PO (12:05)
[2016-11-29] MEDS ORDERED: DOCU1CAP39 PO (12:05)
--- NOTE | 2016-11-29 13:29 | HHI.DS ---
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 Per ED physician, pt has been to [facility] for paracentesis; approximately every two to three weeks for several procedures. Pt returns to [facility] ED today for abdominal pain that pt noted has been worsening over the course of the past "few days." She is also noting her abdominal distention has been present for approximately two months. [place] this time she has also experienced diarrhea. ED report indicated pt reported confusion about how to take her HIV medications ; this was not reported when was in the ED on 10/21/16 as she indicated she was compliant with those medications on that visit. Pt has also voiced having muscle pain with ambulation and movement of her arms as well as pain with swallowing. She denied fever, N/V/C, and shortness of breath. She endorsed having a dry cough as well as difficulty swallowing solid food items. Review of records indicated her CD4 count was less than 20. Review of panels indicated decreased levels of hemoglobin, hematocrit, calcium, potassium, and albumin. Ed team ordered replacement of potassium calcium, as well as administered hydromorphone and zofran. Pt, per ED record indsicated her pain had improved. No other issues noted ore reported. CBC/BMP: 11/29/16 0540 11/29/16 0540 Significant Findings Laboratory Tests Test 11/27/16 11/28/16 11/29/16 05:40 05:43 05:40 Red Blood Count 2.85 MIL/MM3 2.77 MIL/MM3 3.02 MIL/MM3 (4.00-5.30) (4.00-5.30) (4.00-5.30) Hemoglobin 8.8 GM/DL 8.7 GM/DL 9.2 GM/DL (11.6-15.3) (11.6-15.3) (11.6-15.3) Hematocrit 26.2 % 25.3 % 28.0 % (35.0-46.0) (35.0-46.0) (35.0-46.0) Platelet Count 76 TH/MM3 84 TH/MM3 85 TH/MM3 (150-450) (150-450) (150-450) Neutrophils (%) (Auto) 80.9 % 73.5 % (16.0-70.0) (16.0-70.0) Lymphocytes (%) (Auto) 8.6 % (9.0-44.0) Monocytes (%) (Auto) 10.1 % 13.6 % (0.0-8.0) (0.0-8.0) Lymphocytes # (Auto) 0.5 TH/MM3 0.6 TH/MM3 (1.0-4.8) (1.0-4.8) Platelet Estimate LOW (NORMAL) LOW (NORMAL) Ovalocytes 1+ (NORMAL) 1+ (NORMAL) Chloride Level 108 MEQ/L 108 MEQ/L 109 MEQ/L (98-107) (98-107) (98-107) Estimat Glomerular Filtration 79 ML/MIN (>89) 68 ML/MIN (>89) 73 ML/MIN (>89) Rate Random Glucose 60 MG/DL 66 MG/DL 58 MG/DL (74-106) (74-106) (74-106) Calcium Level 7.7 MG/DL 7.9 MG/DL 7.9 MG/DL (8.5-10.1) (8.5-10.1) (8.5-10.1) Creatinine 1.03 MG/DL (0.50-1.00) Aspartate Amino Transf 48 U/L (15-37) (AST/SGOT) Alkaline Phosphatase 165 U/L (45-117) Albumin 1.5 GM/DL (3.4-5.0) Imaging Last Impressions Chest X-Ray 11/27/16 0000 Signed Impressions: Service Date/Time: Sunday, November 27, 2016 08:31 - CONCLUSION: Mild patchy opacity remains at the left lung base without significant change. There is apparent small effusion. Rad Cueto MD Cyst Biopsy Asp-Paracentesis US 11/25/16 0000 Signed Impressions: Service Date/Time: November 11:29 - CONCLUSION: Uncomplicated ultrasound guided paracentesis. Nelson Ordoñez MD Upper Extremity Ultrasound 11/18/16 0000 Signed Impressions: Service Date/Time: October 14:32 - CONCLUSION: Soft tissue edema with no evidence of deep venous thrombosis. Rad Cueto MD CT Angiography 11/14/16 0000 Signed Impressions: Service Date/Time: Monday, November 14, 2016 17:44 - CONCLUSION: 1. The study is negative for pulmonary embolism. 2. Bilateral lower lobe consolidation and bilateral pleural effusions, left more severe than right. Jose Long MD Brain MRI 11/14/16 0000 Signed Impressions: Service Date/Time: Monday, November 14, 2016 17:17 - CONCLUSION: No acute findings in the brain. Lacunar infarcts in the jered, unchanged from 2013. Jose Long MD Abdomen/Pelvis CT 11/14/16 0000 Signed Impressions: Service Date/Time: Monday, November 14, 2016 08:14 - CONCLUSION: 1. Cirrhotic liver with a large amount of ascites. There are varices in the left upper quadrant around the spleen. 2. Mild bilateral pleural effusions with accompanying atelectasis or consolidation at the lung bases. 3. Small nodule seen in the right middle lobe region on the first image obtained. This was present on a prior CTA from 08/20/2015. Nelson Pinon MD Abdomen X-Ray 11/12/16 0729 Signed Impressions: Service Date/Time: Saturday, November 12, 2016 07:53 - CONCLUSION: Small bowel ileus without evidence of pathologic distention. No evidence of free air or significant mass effect.. Yaya Guzman MD PE at Discharge GENERAL: cachectic 51-year-old female sitting up in bed. Appears comfortable. SKIN: Warm and dry.as before, patient has areas consistent with recent scabies. No active lesions observed. lesions continue to heal. HEAD: Normocephalic. EYES: No scleral icterus. No injection or drainage. NECK: Supple, trachea midline. No JVD or lymphadenopathy. CARDIOVASCULAR: Regular rate and rhythm without murmurs, gallops, or rubs. RESPIRATORY: Breath sounds equal bilaterally. No accessory muscle use. GASTROINTESTINAL: Abdomen soft, non-tender. no fluid wave. mild distension and very soft to touch. No rebound or guarding. +bs. MUSCULOSKELETAL: No cyanosis, or edema. BACK: Nontender without obvious deformity. No CVA tenderness. PSYCH: appropriate affect. Pt update on day of discharge f/u for PNA patient is very anxious to go to SNF. She is asking to go to SNF. she has no other complaints. Denied any SOB, CP, or difficulty eating. she stated she is tolerating PO intake and has no concerns. 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 Patient non-compliant with meds. New CD4 count less than 20. //HIV positive. //AIDS //Noncompliant with meds and follow up -ID consult appreciated -MRI no PML -11/20. Add Bactrim and azithromycin prophylaxis. No CMV on file. Can follow up with ID as outpatient. -11/21. Continue prophylaxis. Will need to follow up with ID as outpatient and start on HIV meds //Fever RESOLVED -most recent 102.6F on 11/25 -blood cx 11/23 negative -urine cx 11/25 growing staph aureus. Discussed with ID. Repeat blood cxs are negative. Cont current antibiotic regimen. //UTI staph aureus discussed with ID and recommend 14 days total of levaquin. cultures are pansensitive. //Left lower lobe, healthcare associated pneumonia. -11/24 Antibiotics started due to fever 11/24 overnight. Chest x-ray revealed left lower lobe pneumonia. Repeat CXR 11/27 shows persistent, patchy, LLL infiltrate. -per ID cont levaquin for total of 14 days. On azithromycin + Bactrim ppx, as above. //Thrush -improved with Magic mouthwash. S/p tx with fluconazole. //Severe ascites //Coagulopathy elevated INR received vit K 11/14 -S/P paracentesis 11/15/16. No infection. No malignancy on cytology. -Appreciate GI assistance. -cardiology indicates patient is at moderate/severe risk for GI procedures and not advised. //NSTEMI . -Elevated troponin. Patient c/o chest pain 11/13 at night. Troponin trending up. Cardiology consulted. Discussed with Dr Chet Jerry cardiology. Patient decided for medical management and non invasive procedures. Patient also with elevated Ddimer, CTA to r/o PE is negative. 2D ECHO EF WNL -asymptomatic. //Right arm swelling. -Improved. Ultrasound negative for DVT. //Normocytic anemia -Noted HGB drop to 7.6 and elevated troponin 11/14 to decreased the demand on heart. 11/14 transfuse 2 U PRBC . H/H stable after transfusion. -stable and no signs of active bleeding. //Hypoalbuminemia, severe alb 0.8 -Likely secondary to malnutrition as below. -Ensure supplementation with every meal //Severe Protein calorie malnutrition, cachectic, muscle waisting, low albumin. Prealbumin 3. Alb 0.8. -11/20. on Ensure supplement. //Prophylaxis. Patient already with coagulopathy. SCDs. //scabies. resolved s/p second treatment. no longer needs isolation. Pt Condition on Discharge: Good Discharge Disposition: Discharge to SNF Discharge Time: > 30 minutes Discharge Instructions DIET: Follow Instructions for: Heart Healthy Diet Additional Diet Instructions: Ensure plus or Enlive with meals Activities you can perform: Regular-No Restrictions Follow up Referrals: Infectious Disease - 2 Weeks PCP Follow-up - 3-5 Days New Medications: Furosemide (Furosemide) 20 Mg Tab 20 MG PO DAILY edema #30 Ref 0 TAB Omeprazole (Omeprazole) 40 Mg Cap 40 MG PO DAILY GERD #30 Ref 0 CAP Spironolactone (Aldactone) 25 Mg Tab 25 MG PO DAILY ascites edema #30 Ref 0 TAB Sulfamethoxazole-Trimethoprim (Bactrim DS) 800-160 Mg Tab 1 TAB PO EVERY OTHER DAY Infection #20 Ref 0 TAB Azithromycin (Azithromycin) 600 Mg Tab 1200 MG PO Q7D prophylaxis Days 30 Ref 0 TAB Calcium Carbonate (Antacid) (Calcium Carbonate (Antacid)) 500 Mg Chew 500 MG CHEW Q12HR acid reflex #30 Ref 0 EA Docusate Sodium (Dok) 100 Mg Cap 100 MG PO Q12H constipation #30 Ref 0 CAP Levofloxacin (Levaquin) 500 Mg Tab 500 MG PO DAILY UTI and lung infection #10 Ref 0 TAB Drketbic-Bineoulrosgoelf-Yydmkncwk Liq (Magic Mouthwash Adult Liq) 120 Ml Susp 5 ML SWISH-SWAL QID tara Days 10 ML ([Aspirin Chew]) 81 MG CHEW 81 MG CHEW DAILY CAD #30 Ref 0 TAB.CHEW Kristina Mccarty MD November 29, 2016 13:28
== END 2016-11-29 14:56 | DRG 974 ==
LOC: NEPE 07:12 → NEDA 10:04 → HOCA 14:52
PROVIDERS: ADMIT Family Medicine; ATTEND Family Medicine
PROC: 30233N1 Transfusion of Nonautologous Red Blood Cells into Peripheral Vein, Percutaneous Approach (ICD-10-PCS; 2016-11-14)
PROC: 0W9G3ZZ Drainage of Peritoneal Cavity, Percutaneous Approach (ICD-10-PCS; principal; 2016-11-15)
PROC: 0W9G3ZZ Drainage of Peritoneal Cavity, Percutaneous Approach (ICD-10-PCS; 2016-11-25)
DX: B20 Human immunodeficiency virus [HIV] disease (principal); E43 Unspecified severe protein-calorie malnutrition; B37.0 Candidal stomatitis; G93.49 Other encephalopathy; K74.60 Unspecified cirrhosis of liver; I21.4 Non-ST elevation (NSTEMI) myocardial infarction; J18.9 Pneumonia, unspecified organism; J90 Pleural effusion, not elsewhere classified; R64 Cachexia; D68.9 Coagulation defect, unspecified; R18.8 Other ascites; B37.81 Candidal esophagitis; J98.11 Atelectasis; K56.7 Ileus, unspecified; N39.0 Urinary tract infection, site not specified; D69.59 Other secondary thrombocytopenia; E83.51 Hypocalcemia; E87.6 Hypokalemia; B86 Scabies; D63.8 Anemia in other chronic diseases classified elsewhere; I86.4 Gastric varices; K52.9 Noninfective gastroenteritis and colitis, unspecified; K29.50 Unspecified chronic gastritis without bleeding; I08.1 Rheumatic disorders of both mitral and tricuspid valves; R62.7 Adult failure to thrive; E16.2 Hypoglycemia, unspecified; B95.61 Methicillin susceptible Staphylococcus aureus infection as the cause of diseases classified elsewhere; F02.80 Dementia in other diseases classified elsewhere, unspecified severity, without behavioral disturbance, psychotic disturbance, mood disturbance, and anxiety; Y95 Nosocomial condition; Z66 Do not resuscitate; Z68.25 Body mass index [BMI] 25.0-25.9, adult; Z86.73 Personal history of transient ischemic attack (TIA), and cerebral infarction without residual deficits; Z87.891 Personal history of nicotine dependence; Z91.14 Patient's other noncompliance with medication regimen
CPT/HCPCS: 36430; 49083; 70553; 71010; 71020; 71275; 74020; 74177; 76937; 80048; 80053; 80069; 80076; 80202; 81001; 82042; 82150; 82550; 82552; 82945; 82948; 83605; 83615; 83690; 83735; 84100; 84134; 84155; 84157; 84484; 85007; 85025; 85027; 85379; 85610; 85730; 86355; 86357; 86359; 86360; 86403; 86850; 86900; 86901; 86920; 87040; 87070; 87086; 87116; 87147; 87186; 87205; 87493; 87497; 88112; 88305; 89051; 93005; 93306; 93971; 94150; 94667; 94668; 96374; 96375; A9579; C1729; C9113; J0610; J1170; J1450; J1650; J1940; J2270; J2405; J2543; J3370; J3430; J3480; J7030; J7050; P9016; P9047; Q9963; Q9967

== ENCOUNTER 2016-12-09 19:59 | Emergency (ER) | payer MEDICARE, MEDICAID ==
[~2016-12-09] VITALS: Ht 162.6 cm; Wt 48.0 kg
[~2016-12-09 19:59] MED LIST changes: +AZIT600T PO; +Aspirin Chew CHEW; +CALC500C16 CHEW; -CALC600T4 PO; +DOCU1CAP39 PO; -LACT10SO PO; +LEVA500T PO; -LOMO2.5T PO; +MAGICADU2 SWISH-SWAL; -MULT1CHW33 CHEW; +OMEP40CA2 PO; -PANT40TA3 PO; -SULF20OR2 PO
[2016-12-09 20:58] VITALS: BP 146/92; PULSE 84; RESP 18; TEMP 98; O2SAT 98
[2016-12-09] MEDS ORDERED: SODIUM CHLOR 0.9% 1000 ML INJ 1,000 ML IV SCH (21:02)
--- NOTE | 2016-12-09 21:12 | PD ---
HPI Chief Complaint: Abdominal Pain Time Seen by Provider: 20:57 Travel History International Travel<30 days: No Contact w/Intl Traveler<30days: No Traveled to known affect area: No History of Present Illness HPI 51-year-old female complains of abdominal pain with nausea vomiting. Patient has history of alcoholic liver cirrhosis and ascites. Patient had paracentesis done recently. Patient states that the pain started a week ago. Patient stated the pain severe pain most severe around the epigastric area with radiation to the abdomen and the back. Patient denies any fever chills. Patient denies any dysuria or frequency. Patient denies any vaginal discharge or bleeding. Patient states that she has intermittent nausea vomiting. On a scale of 1-10 the pain is a 10. Patient has history of CAD status post RI, anemia, dysphagia, AIDS due to HIV positive, GI bleed, gastritis. PFSH Past Medical History Arthritis: No Asthma: No Autoimmune Disease: Yes Blood Disorders: No Anxiety: No Depression: No Heart Rhythm Problems: No Cancer: No Cardiovascular Problems: No High Cholesterol: No Chemotherapy: No Chest Pain: No Congestive Heart Failure: No COPD: No Cerebrovascular Accident: Yes (stroke) Diabetes: No Diminished Hearing: No Endocrine: No Gastrointestinal Disorders: Yes (RECENT ABD PAIN AND NAUSEA/ diarrhea) GERD: No Genitourinary: Yes Headaches: Yes Hiatal Hernia: No Immune Disorder: Yes (HIV) Kidney Stones: No Musculoskeletal: No Neurologic: Yes Psychiatric: No Reproductive: No Respiratory: No Migraines: Yes Radiation Therapy: No Renal Failure: No Seizures: Yes Sickle Cell Disease: No Sleep Apnea: No Thyroid Disease: No Ulcer: No ?: Not Menopausal: Yes : 2 Para: 0 Miscarriage: 1 : 1 Ectopic : Yes Past Surgical History Abdominal Surgery: Yes (EXP. LAP.) AICD: No Arteriovenous Shunt: No Cardiac Surgery: No Section: Yes Ear Surgery: No Endocrine Surgery: No Eye Surgery: No Genitourinary Surgery: No Gynecologic Surgery: Yes Insulin Pump: No Joint Replacement: No Oral Surgery: No Pacemaker: No Thoracic Surgery: No Other Surgery: Yes (, ectopic ) Social History Alcohol Use: Yes (OCC) Tobacco Use: No (quit a month ago ) Substance Use: Yes (COCAINE ) Allergies-Medications (Allergen,Severity, Reaction): Coded Allergies: No Known Allergies (Verified , 11/12/16) Reported Meds & Prescriptions Reported Meds & Active Scripts Active Omeprazole 40 Mg Cap 40 Mg PO DAILY Levaquin (Levofloxacin) 500 Mg Tab 500 Mg PO DAILY Dok (Docusate Sodium) 100 Mg Cap 100 Mg PO Q12H Calcium Carbonate (Antacid) 500 Mg Chew 500 Mg CHEW Q12HR Azithromycin 600 Mg Tab 1,200 Mg PO Q7D 30 Days [Aspirin Chew] 81 MG Chew 81 Mg CHEW DAILY Bactrim DS (Sulfamethoxazole-Trimethoprim) 800-160 Mg Tab 1 Tab PO EVERY OTHER DAY Aldactone (Spironolactone) 25 Mg Tab 25 Mg PO DAILY Furosemide 20 Mg Tab 20 Mg PO DAILY Magic Mouthwash Adult Liq (Multi-Ingredient Mouthwash/Gargle) 120 Ml Susp 5 Ml SWISH-SWAL QID 10 Days Review of Systems General / Constitutional: No: Fever Eyes: No: Visual changes HENT: No: Headaches Cardiovascular: No: Chest Pain or Discomfort Respiratory: No: Shortness of Breath Gastrointestinal: Positive: Nausea, Vomiting, Abdominal Pain Genitourinary: No: Dysuria Musculoskeletal: No: Pain Skin: No Rash Neurologic: No: Weakness Psychiatric: No: Depression Endocrine: No: Polydipsia Hematologic/Lymphatic: No: Easy Bruising Physical Exam Narrative GENERAL: Well-nourished, well-developed patient. SKIN: Focused skin assessment warm/dry. HEAD: Normocephalic. EYES: No scleral icterus. No injection or drainage. NECK: Supple, trachea midline. No JVD or lymphadenopathy. CARDIOVASCULAR: Regular rate and rhythm without murmurs, gallops, or rubs. RESPIRATORY: Breath sounds equal bilaterally. No accessory muscle use. GASTROINTESTINAL: Abdomen is distended. Moderate tenderness on palpation epigastric area and mild tenderness on palpation the rest of the abdomen. No rebound tenderness. No mass. MUSCULOSKELETAL: No cyanosis, or edema. BACK: Nontender without obvious deformity. No CVA tenderness. Neurologic exam normal. Data Data Last Documented VS Vital Signs Date Time Temp Pulse Resp B/P Pulse Ox O2 Delivery O2 Flow Rate FiO2 12/10/16 00:00 91 20 142/77 98 12/09/16 20:58 98.0 Orders Complete Blood Count With Diff (12/09/16 21:02) Comprehensive Metabolic Panel (12/09/16 21:02) Lipase (12/09/16 21:02) Prothrombin Time / Inr (Pt) (12/09/16 21:02) Act Partial Throm Time (Ptt) (12/09/16 21:02) Urinalysis - C+S If Indicated (12/09/16 21:02) Ct Abd/Pel W Iv Contrast(Rout) (12/09/16 21:02) Iv Access Insert/Monitor (12/09/16 21:02) Ecg Monitoring (12/09/16 21:02) Oximetry (12/09/16 21:02) Morphine Inj (Morphine Inj) (12/09/16 21:15) Ondansetron Inj (Zofran Inj) (12/09/16 21:15) Pantoprazole Inj (Protonix Inj) (12/09/16 21:15) Sodium Chlor 0.9% 1000 Ml Inj (Ns 1000 M (12/09/16 21:02) Iohexol 350 Inj (Omnipaque 350 Inj) (12/09/16 23:45) Labs Laboratory Tests Test 12/09/16 12/09/16 21:30 22:30 White Blood Count 4.2 TH/MM3 Red Blood Count 3.23 MIL/MM3 Hemoglobin 10.1 GM/DL Hematocrit 30.1 % Mean Corpuscular Volume 93.2 FL Mean Corpuscular Hemoglobin 31.2 PG Mean Corpuscular Hemoglobin 33.5 % Concent Red Cell Distribution Width 17.7 % Platelet Count 137 TH/MM3 Mean Platelet Volume 9.8 FL Neutrophils (%) (Auto) 65.8 % Lymphocytes (%) (Auto) 18.2 % Monocytes (%) (Auto) 15.1 % Eosinophils (%) (Auto) 0.1 % Basophils (%) (Auto) 0.8 % Neutrophils # (Auto) 2.8 TH/MM3 Lymphocytes # (Auto) 0.8 TH/MM3 Monocytes # (Auto) 0.6 TH/MM3 Eosinophils # (Auto) 0.0 TH/MM3 Basophils # (Auto) 0.0 TH/MM3 CBC Comment DIFF FINAL Differential Comment Prothrombin Time 12.7 SEC Prothromb Time International 1.1 RATIO Ratio Activated Partial 35.3 SEC Thromboplast Time Sodium Level 139 MEQ/L Potassium Level 4.9 MEQ/L Chloride Level 108 MEQ/L Carbon Dioxide Level 24.8 MEQ/L Anion Gap 6 MEQ/L Blood Urea Nitrogen 9 MG/DL Creatinine 0.66 MG/DL Estimat Glomerular Filtration 114 ML/MIN Rate Random Glucose 83 MG/DL Calcium Level 7.5 MG/DL Total Bilirubin 0.5 MG/DL Aspartate Amino Transf 54 U/L (AST/SGOT) Alanine Aminotransferase 15 U/L (ALT/SGPT) Alkaline Phosphatase 169 U/L Total Protein 8.7 GM/DL Albumin 1.8 GM/DL Lipase 281 U/L Urine Color YELLOW Urine Turbidity CLEAR Urine pH 8.0 Urine Specific [place] 1.006 Urine Protein NEG mg/dL Urine Glucose (UA) NEG mg/dL Urine Ketones NEG mg/dL Urine Occult Blood TRACE Urine Nitrite NEG Urine Bilirubin NEG Urine Urobilinogen LESS THAN 2.0 MG/DL Urine Leukocyte Esterase TRACE Urine RBC LESS THAN 1 /hpf Urine WBC 3 /hpf Urine Squamous Epithelial 2 /hpf Cells Microscopic Urinalysis Comment CULT NOT INDICATED MDM Medical Decision Making Medical Screen Exam Complete: Yes Emergency Medical Condition: Yes Interpretation(s) 23:08 PM. CBC with WBC 4.2. Hemoglobin 10.1 hematocrit 30.1. Platelet 137. AST 54. Alkaline phosphatase 169. UA is negative. Differential Diagnosis Differential diagnosis including gastritis, PUD, pancreatitis, cholecystitis, colitis, UTI, pyelonephritis, nephrolithiasis, ascites. Narrative Course 51-year-old female with abdominal pain, nausea vomiting. History of alcoholic cirrhosis with ascites. Normal saline solution 100 cc an hour. Morphine 2 mg IV. Zofran 4 mg IV. Protonix 40 mg IV. Diagnosis Primary Impression: Abdominal pain Qualified Code: R10.13 - Epigastric pain Additional Impression: Liver cirrhosis Qualified Code: K70.31 - Alcoholic cirrhosis of liver with ascites Patient Instructions: General Instructions Additional Instructions: Take medications as directed. Follow-up with personal physician and GI specialist. Return if worse. Med/Other Pt SpecificInfo: Prescription(s) given Scripts Dicyclomine (Bentyl)20 Mg Tab20 Mg PO TID #30 TAB Prov:Sal Doherty MD 12/10/16 Sucralfate (Carafate)1 Gm Tab1 Gm PO QID #120 TAB On empty stomach Prov:Sal Doherty MD 12/10/16 Disposition: 01 DISCHARGE HOME Condition: Stable Sal Doherty MD December 09, 2016 21:12
[2016-12-09] MEDS ORDERED: ONDANSETRON HCL 4 MG/2 ML VIAL IVP ONE (21:15)
[2016-12-09] MEDS ORDERED: PANTOPRAZOLE SODIUM 40 MG VIAL IVP ONE (21:15)
[2016-12-09] MEDS ORDERED: MORPHINE SULFATE 4 MG/ML INJ IV PUSH ONE (21:15)
[2016-12-09 21:21] VITALS: PULSE 88
[2016-12-09 21:55] LABS: AUTOMATED NEUTROPHIL # 2.8 TH/MM3 (1.8-7.7); BASOPHIL % 0.8 % (0.0-2.0); EOSINOPHIL % 0.1 % (0.0-4.0); HEMATOCRIT 30.1 % (35.0-46.0); HEMO FLAGS DIFF FINAL; LYMPH % 18.2 % (9.0-44.0); LYMPHOCYTE # 0.8 TH/MM3 (1.0-4.8); MEAN CELL VOLUME 93.2 FL (80.0-100.0); MEAN CORPUSCULAR HEMOGLOBIN 31.2 PG (27.0-34.0); MEAN CORPUSCULAR HGB CONC 33.5 % (32.0-36.0); MONO % 15.1 % (0.0-8.0); NEUT % 65.8 % (16.0-70.0); PLATELET COUNT 137 TH/MM3 (150-450); RED BLOOD COUNT 3.23 MIL/MM3 (4.00-5.30); RED CELL DISTRIBUTION WIDTH 17.7 % (11.6-17.2); WHITE BLOOD COUNT 4.2 TH/MM3 (4.0-11.0)
[2016-12-09 21:57] LABS: APTT (PATIENT) 35.3 SEC (24.3-30.1); INTERNATIONAL NORMALIZED RATIO 1.1 RATIO; PROTHROMBIN TIME - PATIENT 12.7 SEC (9.8-11.6)
[2016-12-09 22:33] LABS: ALKALINE PHOSPHATASE 169 U/L (45-117); ALT (GPT) 15 U/L (10-53); ANION GAP 6 MEQ/L (5-15); AST (GOT) 54 U/L (15-37); BICARBONATE 24.8 MEQ/L (21.0-32.0); BLOOD UREA NITROGEN 9 MG/DL (7-18); CHLORIDE 108 MEQ/L (98-107); GLOMERULAR FILTRATION RATE 114 ML/MIN (>89); SODIUM (NA) 139 MEQ/L (136-145); TOTAL BILIRUBIN ADULT 0.5 MG/DL (0.2-1.0)
[2016-12-09 22:35] LABS: POTASSIUM 4.9 MEQ/L (3.5-5.1)
[2016-12-09 22:37] LABS: BLOOD, URINE TRACE (NEG); GLUCOSE,URINE NEG (NEG); KETONE, URINE NEG (NEG); NITRITE,URINE NEG (NEG); SQUAMOUS EPITHELIAL CELL URINE 2 /hpf (0-5); URINE COLOR YELLOW (YELLW/STRAW)
[2016-12-09 22:38] LABS: COMMENT (UR) CULT NOT INDICATED; CULTURE IF INDICATED CULT NOT INDICATED
[2016-12-09] MEDS ORDERED: IOHEXOL 350 MG/ML 10 ML VIAL (for RAD DIAG) IV ONE (23:45)
[2016-12-10] VITALS: BP 142/77; PULSE 91; RESP 20; O2SAT 98
--- NOTE | 2016-12-10 00:09 | RADRPT ---
EXAM DATE/TIME: 12/09/2016 23:41 [facility] COMPARISON: No previous studies available for comparison. INDICATIONS : Abdominal pain. IV CONTRAST: 75 cc Omnipaque 350 (iohexol) IV ORAL CONTRAST: No oral contrast ingested. RADIATION DOSE: 6.64 CTDIvol (mGy) MEDICAL HISTORY : HIV. Cirrhosis. Ovarian cysts. Ascites. SURGICAL HISTORY : section. Paracentesis. ENCOUNTER: Initial ACUITY: 2 days PAIN SCALE: 10/10 LOCATION: All quadrants. TECHNIQUE: Volumetric scanning of the abdomen and pelvis was performed. Using automated exposure control and ad justment of the mA and/or kV according to patient size, radiation dose was kept as low as reasonably achievable to obtain optimal diagnostic quality images. FINDINGS: Compare November 14. There is liver cirrhosis and moderate ascites slightly decreased from prior study. 2 small low attenuation lesions peripheral spleen may represent small infarcts. Multiple varices in t he left upper quadrant around the spleen similar to prior study. No bowel obstruction. No free air. Moderate pelvic ascites. Mild anasarca. No acute bony abnormality. Small bilateral pleural effusions, left greater than right slightly improved on the right since October . CONCLUSION: 1. Liver cirrhosis with moderate ascites slightly improved from October 2016. 2. Small bilateral pleural effusions. 3. Two tiny splenic infarcts. Stable varices. Mild anasarca. Tremayne Lemon MD on December 09, 2016 at 23:59 Board Certified Radiologist. This report was verified electronically.
[2016-12-10] MEDS ORDERED: CARA1TAB6 PO (00:19)
[2016-12-10] MEDS ORDERED: BENT20TA PO (00:19)
== END 2016-12-10 00:41 | disposition home or self-care (01) ==
LOC: NEPD 19:59
DX: R10.13 Epigastric pain (principal); K70.31 Alcoholic cirrhosis of liver with ascites; R11.2 Nausea with vomiting, unspecified; I25.10 Atherosclerotic heart disease of native coronary artery without angina pectoris; D64.9 Anemia, unspecified; R13.10 Dysphagia, unspecified; B97.35 Human immunodeficiency virus, type 2 [HIV 2] as the cause of diseases classified elsewhere; Z86.73 Personal history of transient ischemic attack (TIA), and cerebral infarction without residual deficits; Z87.891 Personal history of nicotine dependence
CPT/HCPCS: 74177; 80053; 81001; 83690; 85025; 85610; 85730; 96361; 96374; 96375; 99284; C9113; J2270; J2405; J7030; Q9967

== ENCOUNTER 2017-01-01 11:15 | Inpatient (IN) | payer MEDICARE, MEDICAID ==
[~2017-01-01] VITALS: Ht 162.6 cm; Wt 51.6 kg
[~2017-01-01 11:15] MED LIST changes: +BENT20TA PO; +CARA1TAB6 PO
[2017-01-01 11:19] VITALS: BP 132/59; PULSE 96; RESP 20; TEMP 97.4; O2SAT 98
--- NOTE | 2017-01-01 11:21 | PD ---
HPI Chief Complaint: GI Complaint Time Seen by Provider: 11:21 Travel History International Travel<30 days: No Contact w/Intl Traveler<30days: No Traveled to known affect area: No History of Present Illness HPI 51-year-old female came to the emergency room with history of diarrhea for past 2 days that is bloody in nature. She has history of HIV, hep C, cirrhosis and ascites. She says her belly feels more distended and now she is also having some lower back pain. When I went to see her she had some soiled garments all over the floor that had bloody mucousy stool on exam. She kept asking for something for her back pain and said even Tylenol will do. No history of vomiting. She says she takes her antiretroviral like she supposed to. However she hasn't had her CD4 count or viral load checked in a while. I'm really questioning her compliance with medications at this point. PFSH Past Medical History Narrative Medical List of her medical, surgical, social and family history reviewed from the nursing note. Arthritis: No Asthma: No Autoimmune Disease: Yes Blood Disorders: No Anxiety: No Depression: No Heart Rhythm Problems: No Cancer: No Cardiovascular Problems: No High Cholesterol: No Chemotherapy: No Chest Pain: No Congestive Heart Failure: No Cirrhosis: Yes COPD: No Cerebrovascular Accident: Yes (stroke) Diabetes: No Diminished Hearing: No Endocrine: No Gastrointestinal Disorders: Yes (RECENT ABD PAIN AND NAUSEA/ diarrhea) GERD: No Genitourinary: Yes Headaches: Yes Hiatal Hernia: No Immune Disorder: Yes (HIV) Kidney Stones: No Musculoskeletal: No Neurologic: Yes Psychiatric: No Reproductive: No Respiratory: No Migraines: Yes Radiation Therapy: No Renal Failure: No Seizures: Yes Sickle Cell Disease: No Sleep Apnea: No Thyroid Disease: No Ulcer: No Menopausal: Yes : 2 Para: 0 Miscarriage: 1 : 1 Ectopic : Yes Ovarian Cysts: Yes Past Surgical History Abdominal Surgery: Yes (EXP. LAP.) AICD: No Arteriovenous Shunt: No Cardiac Surgery: No Section: Yes Ear Surgery: No Endocrine Surgery: No Eye Surgery: No Genitourinary Surgery: No Gynecologic Surgery: Yes Insulin Pump: No Joint Replacement: No Oral Surgery: No Pacemaker: No Thoracic Surgery: No Other Surgery: Yes (, ectopic ) Social History Alcohol Use: Yes (quit 4 months ago: liquor) Tobacco Use: Yes (quit 4 months ago did 1 ppd) Substance Use: Yes (4 months ago:crack) Allergies-Medications (Allergen,Severity, Reaction): Coded Allergies: No Known Allergies (Verified , 11/12/16) Comments No known drug allergies. Reported Meds & Prescriptions Reported Meds & Active Scripts Active Bentyl (Dicyclomine HCl) 20 Mg Tab 20 Mg PO TID Carafate (Sucralfate) 1 Gm Tab 1 Gm PO QID On empty stomach Omeprazole 40 Mg Cap 40 Mg PO DAILY Levaquin (Levofloxacin) 500 Mg Tab 500 Mg PO DAILY Dok (Docusate Sodium) 100 Mg Cap 100 Mg PO Q12H Calcium Carbonate (Antacid) 500 Mg Chew 500 Mg CHEW Q12HR Azithromycin 600 Mg Tab 1,200 Mg PO Q7D 30 Days [Aspirin Chew] 81 MG Chew 81 Mg CHEW DAILY Bactrim DS (Sulfamethoxazole-Trimethoprim) 800-160 Mg Tab 1 Tab PO EVERY OTHER DAY Aldactone (Spironolactone) 25 Mg Tab 25 Mg PO DAILY Furosemide 20 Mg Tab 20 Mg PO DAILY Magic Mouthwash Adult Liq (Multi-Ingredient Mouthwash/Gargle) 120 Ml Susp 5 Ml SWISH-SWAL QID 10 Days Narrative Medication List of her home medications reviewed from the nursing note. Review of Systems Except as stated in HPI: all other systems reviewed are Neg Physical Exam Narrative GENERAL: Awake, alert, moderate distress, cachectic SKIN: Focused skin assessment warm/dry. HEAD: Atraumatic. Normocephalic. EYES: Pupils equal and round. No scleral icterus. No injection or drainage. ENT: No nasal bleeding or discharge. Dry mucous membrane. NECK: Trachea midline. No JVD. CARDIOVASCULAR: Regular rate and rhythm. No murmur appreciated. RESPIRATORY: No accessory muscle use. Clear to auscultation. Breath sounds equal bilaterally. GASTROINTESTINAL: Abdomen soft, non-tender, distended but soft. Hepatic and splenic margins not palpable. MUSCULOSKELETAL: No obvious deformities. No clubbing. No cyanosis. No edema. NEUROLOGICAL: Awake and alert. No obvious cranial nerve deficits. Motor grossly within normal limits. Normal speech. PSYCHIATRIC: Appropriate mood and affect; insight and judgment normal. Data Data Last Documented VS Vital Signs Date Time Temp Pulse Resp B/P Pulse Ox O2 Delivery O2 Flow Rate FiO2 01/01/17 12:12 16 98 Room Air 01/01/17 11:19 97.4 96 132/59 Orders Complete Blood Count With Diff (01/01/17 11:34) Comprehensive Metabolic Panel (01/01/17 11:34) Lipase (01/01/17 11:34) Prothrombin Time / Inr (Pt) (01/01/17 11:34) Ct Abd/Pel W/O Iv Contrast (01/01/17 11:34) Iv Access Insert/Monitor (01/01/17 11:34) Ecg Monitoring (01/01/17 11:34) Oximetry (01/01/17 11:34) Morphine Inj (Morphine Inj) (01/01/17 11:45) Sodium Chlor 0.9% 1000 Ml Inj (Ns 1000 M (01/01/17 11:34) Sodium Chloride 0.9% Flush (Ns Flush) (01/01/17 11:45) C Diff Toxin Pcr (01/01/17 11:34) Cryptosporidium (Stool) (01/01/17 11:34) Sodium Chlor 0.9% 1000 Ml Inj (Ns 1000 M (01/01/17 13:00) Admit Order (Ed Use Only) (01/01/17 13:24) Labs Laboratory Tests Test 01/01/17 11:45 White Blood Count 6.7 TH/MM3 Red Blood Count 3.20 MIL/MM3 Hemoglobin 10.0 GM/DL Hematocrit 29.8 % Mean Corpuscular Volume 93.3 FL Mean Corpuscular Hemoglobin 31.3 PG Mean Corpuscular Hemoglobin 33.5 % Concent Red Cell Distribution Width 17.5 % Platelet Count 125 TH/MM3 Mean Platelet Volume 10.2 FL Neutrophils (%) (Auto) 67.1 % Lymphocytes (%) (Auto) 16.4 % Monocytes (%) (Auto) 15.2 % Eosinophils (%) (Auto) 1.0 % Basophils (%) (Auto) 0.3 % Neutrophils # (Auto) 4.5 TH/MM3 Lymphocytes # (Auto) 1.1 TH/MM3 Monocytes # (Auto) 1.0 TH/MM3 Eosinophils # (Auto) 0.1 TH/MM3 Basophils # (Auto) 0.0 TH/MM3 CBC Comment DIFF FINAL Differential Comment Prothrombin Time 15.0 SEC Prothromb Time International 1.3 RATIO Ratio Stool C. difficile Toxin (PCR) POSITIVE Stl C. difficile Toxin PRESUMPTIVE Epiderm 027 POSITIVE Sodium Level 140 MEQ/L Potassium Level 4.0 MEQ/L Chloride Level 112 MEQ/L Carbon Dioxide Level 16.6 MEQ/L Anion Gap 11 MEQ/L Blood Urea Nitrogen 12 MG/DL Creatinine 0.79 MG/DL Estimat Glomerular Filtration 92 ML/MIN Rate Random Glucose 78 MG/DL Calcium Level 7.5 MG/DL Total Bilirubin 0.6 MG/DL Aspartate Amino Transf 28 U/L (AST/SGOT) Alanine Aminotransferase 14 U/L (ALT/SGPT) Alkaline Phosphatase 125 U/L Total Protein 8.3 GM/DL Albumin 1.5 GM/DL Lipase 55 U/L [facility] Medical Decision Making Medical Screen Exam Complete: Yes Emergency Medical Condition: Yes Medical Record Reviewed: Yes Differential Diagnosis Colitis, pseudomembranous colitis, Cryptosporidium, diverticulitis Narrative Course 1:02 PM blood test results are within acceptable limits. CT scan is suggestive of ascites with colitis. Patient's underlying condition and her current presentation I would like to admit her. Awaiting for the hospitalist call back. Procedures EKG Prior to Arrival: No Diagnosis Primary Impression: Colitis Additional Impressions: Bloody diarrhea HIV (human immunodeficiency virus infection) Ascites Qualified Code: R18.8 - Other ascites Admitting Information Admitting Physician Requests: Admit Nickolas Nevarez MD Jan 01, 2017 11:21
[2017-01-01] MEDS ORDERED: SODIUM CHLOR 0.9% 1000 ML INJ 1,000 ML IV SCH (11:34)
[2017-01-01] MEDS ORDERED: SODIUM CHLORIDE 0.9% FLUSH 10 ML FLUSH IV FLUSH PRN ×2 (11:45→13:30)
[2017-01-01] MEDS ORDERED: MORPHINE SULFATE 4 MG/ML INJ IV PUSH ONE (11:45)
[2017-01-01 12:12] VITALS: RESP 16; O2SAT 98
[2017-01-01 12:25] LABS: AUTOMATED NEUTROPHIL # 4.5 TH/MM3 (1.8-7.7); BASOPHIL % 0.3 % (0.0-2.0); EOSINOPHIL # 0.1 TH/MM3 (0-0.4); HEMATOCRIT 29.8 % (35.0-46.0); HEMO FLAGS DIFF FINAL; LYMPH % 16.4 % (9.0-44.0); LYMPHOCYTE # 1.1 TH/MM3 (1.0-4.8); MEAN CELL VOLUME 93.3 FL (80.0-100.0); MEAN CORPUSCULAR HEMOGLOBIN 31.3 PG (27.0-34.0); MEAN CORPUSCULAR HGB CONC 33.5 % (32.0-36.0); MONO % 15.2 % (0.0-8.0); NEUT % 67.1 % (16.0-70.0); PLATELET COUNT 125 TH/MM3 (150-450); RED CELL DISTRIBUTION WIDTH 17.5 % (11.6-17.2); WHITE BLOOD COUNT 6.7 TH/MM3 (4.0-11.0)
[2017-01-01 12:30] LABS: ANION GAP 11 MEQ/L (5-15); AST (GOT) 28 U/L (15-37); BICARBONATE 16.6 MEQ/L (21.0-32.0); BLOOD UREA NITROGEN 12 MG/DL (7-18); CHLORIDE 112 MEQ/L (98-107); GLOMERULAR FILTRATION RATE 92 ML/MIN (>89); SODIUM (NA) 140 MEQ/L (136-145)
[2017-01-01 12:31] LABS: ALT (GPT) 14 U/L (10-53)
[2017-01-01 12:33] LABS: ALKALINE PHOSPHATASE 125 U/L (45-117); INTERNATIONAL NORMALIZED RATIO 1.3 RATIO; TOTAL BILIRUBIN ADULT 0.6 MG/DL (0.2-1.0)
--- NOTE | 2017-01-01 12:43 | RADRPT ---
EXAM DATE/TIME: 01/01/2017 12:14 [place] COMPARISON: No previous studies available for comparison. INDICATIONS : Diffuse abdominal pain and distention, diarrhea. ORAL CONTRAST: No oral contrast ingested. RADIATION DOSE: 9.96 CTDIvol (mGy) MEDICAL HISTORY : Cirrhosis. HIV. Seizures.Stroke, Ovarian cysts, ectopic . SURGICAL HISTORY : section. ENCOUNTER: Initial ACUITY: 2 weeks PAIN SCALE: 8/10 LOCATION: Bilateral upper quadrant TECHNIQUE: Volumetric scanning of the abdomen and pelvis was performed. Using automated exposure control and ad justment of the mA and/or kV according to patient size, radiation dose was kept as low as reasonably achievable to obtain optimal diagnostic quality images. FINDINGS: Mild to moderate essentially diffuse wall thickening now seen in the colon compatible with colitis. N o abscess, perforation or obstruction. Sclerotic changes are again seen in the liver. There is moderate ascites, not significantly changed. No were not is fluid demonstrated. Portosystemic collaterals are demonstrated. There is probably a sp lenorenal shunt. Tiny right and small left pleural effusions are seen. There is mild atelectasis of the lung bases, ma inly on the left. These findings are unchanged. CONCLUSION: 1. Diffuse colitis, presumably infectious or inflammatory. 2. Cirrhosis with portosystemic collaterals and moderate ascites again noted. Spleen upper limits of normal size. 3. Small effusions and mild atelectasis of the visualized lung bases unchanged. Nelson Collazo MD on January 01, 2017 at 12:36 Board Certified Radiologist. This report was verified electronically.
[2017-01-01] MEDS ORDERED: SODIUM CHLOR 0.9% 1000 ML INJ 1,000 ML IV ONE (13:00)
[2017-01-01] MEDS ORDERED: NALOXONE HCL 0.4 MG/ML AMP IV PRN (13:30)
[2017-01-01] MEDS ORDERED: ACETAMINOPHEN 325 MG TAB PO PRN (13:30)
[2017-01-01] MEDS ORDERED: ONDANSETRON HCL 4 MG/2 ML VIAL IVP PRN (13:30)
[2017-01-01] MEDS: SODIUM CHLOR 0.9% 1000 ML INJ 1,000 ML IV SCH ×2 (13:51→23:30)
--- NOTE | 2017-01-01 14:10 | HHI.HP ---
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 She denies any febrile episode. Patient is a very poor historian and noncompliant with medical care. She states, she was seen by her HIV specialist about a month ago. Review of Systems Except as stated in HPI: all other systems reviewed are Neg Past Family Social History Past Medical History HIV, GI bleeds, stroke, ascites, cirrhosis, gastritis Past Surgical History exploratory laparotomy, Reported Medications Bentyl (Dicyclomine HCl) 20 Mg Tab 20 Mg PO TID Carafate (Sucralfate) 1 Gm Tab 1 Gm PO QID On empty stomach Omeprazole 40 Mg Cap 40 Mg PO DAILY Levaquin (Levofloxacin) 500 Mg Tab 500 Mg PO DAILY Dok (Docusate Sodium) 100 Mg Cap 100 Mg PO Q12H Calcium Carbonate (Antacid) 500 Mg Chew 500 Mg CHEW Q12HR Azithromycin 600 Mg Tab 1,200 Mg PO Q7D 30 Days [Aspirin Chew] 81 MG Chew 81 Mg CHEW DAILY Bactrim DS (Sulfamethoxazole-Trimethoprim) 800-160 Mg Tab 1 Tab PO EVERY OTHER DAY Aldactone (Spironolactone) 25 Mg Tab 25 Mg PO DAILY Furosemide 20 Mg Tab 20 Mg PO DAILY Magic Mouthwash Adult Liq (Multi-Ingredient Mouthwash/Gargle) 120 Ml Susp 5 Ml SWISH-SWAL QID 10 Days Allergies: Coded Allergies: No Known Allergies (Verified , 11/12/16) Family History Pt denied any family history. Social History Pt reported having stopped smoking cigarettes recently, yet could not identify when she had stopped. It was noted in the medical record pt had a history of cocaine use, which pt said she had "not used in a long time. We are talking years." Alcohol use was reported as occasional. Physical Exam Vital Signs Vital Signs Date Time Temp Pulse Resp B/P Pulse Ox O2 Delivery O2 Flow Rate FiO2 01/01/17 13:32 16 01/01/17 12:12 16 98 Room Air 01/01/17 11:31 16 01/01/17 11:19 97.4 96 20 132/59 98 Room Air Physical Exam GENERAL: Cachectic female with evidence of HIV wasting SKIN: Multiple rashes, ecchymoses covering entire body HEAD: Atraumatic. Normocephalic. No temporal or scalp tenderness. EYES: Pupils equal round and reactive. Extraocular motions intact. No scleral icterus. No injection or drainage. ENT: Nose without bleeding, purulent drainage or septal hematoma. Throat with thrush NECK: Trachea midline. +lymphadenopathy. Supple, nontender, no meningeal signs. CARDIOVASCULAR: Regular rate and rhythm without murmurs, gallops, or rubs. RESPIRATORY: Clear to auscultation. Breath sounds equal bilaterally. No wheezes , rales, or rhonchi. GASTROINTESTINAL: Abdomen soft, mildly tender, distended. No hepato-splenomegaly , or palpable masses. No guarding. MUSCULOSKELETAL: Extremities without clubbing, cyanosis, or edema. No joint tenderness, effusion, or edema noted. No calf tenderness. Negative Homans sign bilaterally. NEUROLOGICAL: Awake and alert. Cranial nerves II through XII intact. Motor and sensory grossly within normal limits. Five out of 5 muscle strength in all muscle groups. Normal speech. Laboratory Laboratory Tests Test 01/01/17 11:45 White Blood Count 6.7 Red Blood Count 3.20 Hemoglobin 10.0 Hematocrit 29.8 Mean Corpuscular Volume 93.3 Mean Corpuscular Hemoglobin 31.3 Mean Corpuscular Hemoglobin 33.5 Concent Red Cell Distribution Width 17.5 Platelet Count 125 Mean Platelet Volume 10.2 Neutrophils (%) (Auto) 67.1 Lymphocytes (%) (Auto) 16.4 Monocytes (%) (Auto) 15.2 Eosinophils (%) (Auto) 1.0 Basophils (%) (Auto) 0.3 Neutrophils # (Auto) 4.5 Lymphocytes # (Auto) 1.1 Monocytes # (Auto) 1.0 Eosinophils # (Auto) 0.1 Basophils # (Auto) 0.0 CBC Comment DIFF FINAL Differential Comment Prothrombin Time 15.0 Prothromb Time International 1.3 Ratio Sodium Level 140 Potassium Level 4.0 Chloride Level 112 Carbon Dioxide Level 16.6 Anion Gap 11 Blood Urea Nitrogen 12 Creatinine 0.79 Estimat Glomerular Filtration 92 Rate Random Glucose 78 Calcium Level 7.5 Total Bilirubin 0.6 Aspartate Amino Transf 28 (AST/SGOT) Alanine Aminotransferase 14 (ALT/SGPT) Alkaline Phosphatase 125 Total Protein 8.3 Albumin 1.5 Lipase 55 Date/Time Procedure Status Source Growth 01/01/17 11:45 Cryptosporidium Exam Received Stool Stool Pending Result Diagram: 01/01/17 1145 01/01/17 1145 Imaging Last Impressions Abdomen/Pelvis CT 01/01/17 1134 Signed Impressions: Service Date/Time: Tuesday, January 01, 2017 12:14 - CONCLUSION: 1. Diffuse colitis, presumably infectious or inflammatory. 2. Cirrhosis with portosystemic collaterals and moderate ascites again noted. Spleen upper limits of normal size. 3. Small effusions and mild atelectasis of the visualized lung bases unchanged. 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 difficile colitis CT abdomen/pelvis noted and review by me with finding of Diffuse colitis, presumably infectious or inflammatory. Starts NS @ 100ml/hr and Flagyl 500 mg IV every 8 hour Check C. difficile PCR, stool for ova and parasites, crypto, cyclosporine, Giardia antigen and enteric path AIDS AIDS wasting syndrome Last CD4 count less than 20 in 12/08 Noncompliant with medication and we need have patient follow-up with HIV specialist to resume HAART therapy Resume Bactrim for PCP prophylaxis Resume Azithromycin for MARLA prophylaxis Cirrhosis with history of ascites Abdominal pain CT abdomen/pelvics noted and review by me with finding of Cirrhosis with portosystemic collaterals and moderate ascites again noted. Check abdominal ultrasound for evaluation for possible paracentesis Severe protein calorie malnutrition Albumin 1.5 and check prealbumin Will add Ensure supplement Oral thrush Start treatment with Magic mouthwash and consider adding fluconazole Code Status Full code Discussed Condition With Patient, ED physician Physician Certification 2 Midnight Certification Type: Admission for Inpatient Services Order for Inpatient Services The services are ordered in accordance with Medicare regulations or non- Medicare payer requirements, as applicable. In the case of services not specified as inpatient-only, they are appropriately provided as inpatient services in accordance with the 2-midnight benchmark. Estimated LOS (days): 2 days is the estimated time the patient will need to remain in the hospital, assuming treatment plan goals are met and no additional complications. Post-Hospital Plan: Not yet determined Grant Coto MD Jan 01, 2017 14:10
[2017-01-01 15:37] LABS: C. DIFF EPI 027 PRESUMPTIVE POSITIVE (NEGATIVE)
[2017-01-01 15:40] LABS: C. DIFF TOXIN PCR POSITIVE (NEGATIVE)
[2017-01-01 16:30] VITALS: BP 134/85; PULSE 95; RESP 20; TEMP 98.7; O2SAT 98
[2017-01-01] MEDS ORDERED: AZITHROMYCIN 600 MG TAB PO SCH (16:30)
[2017-01-01] MEDS: NYSTAT/DIPHENHY/LIDO MOUTHWASH (Adult) 120ML SWISH-SWAL SCH ×2 (17:08→19:56)
[2017-01-01] MEDS: LACTOBACILLUS ACIDOPHILUS TAB PO SCH (17:34)
[2017-01-01] MEDS: SUCRALFATE 1 GM TAB PO SCH ×2 (17:34→19:56)
[2017-01-01] MEDS: metroNIDAZOLE 500 MG INJ 100 ML IV SCH (17:35)
[2017-01-01] MEDS: SODIUM CHLORIDE 0.9% FLUSH 10 ML FLUSH IV FLUSH SCH (19:53)
[2017-01-01] MEDS: ACETAMINOPHEN 325 MG TAB PO PRN (19:55)
[2017-01-01 20:00] VITALS: BP 127/77; PULSE 88; RESP 16; TEMP 98.4; O2SAT 100
[2017-01-02] VITALS: BP 107/71; PULSE 85; RESP 16; TEMP 96; O2SAT 100
[2017-01-02] MEDS: metroNIDAZOLE 500 MG INJ 100 ML IV SCH ×3 (01:23→16:59)
[2017-01-02 04:00] VITALS: BP 111/69; PULSE 77; RESP 16; TEMP 96; O2SAT 100
[2017-01-02 08:45] VITALS: BP 108/68; PULSE 84; RESP 20; TEMP 96.3; O2SAT 100
[2017-01-02 08:50] LABS: HEMATOCRIT 30.5 % (35.0-46.0); MEAN CELL VOLUME 95.6 FL (80.0-100.0); MEAN CORPUSCULAR HEMOGLOBIN 30.9 PG (27.0-34.0); MEAN CORPUSCULAR HGB CONC 32.3 % (32.0-36.0); PLATELET COUNT 108 TH/MM3 (150-450); RED BLOOD COUNT 3.19 MIL/MM3 (4.00-5.30); RED CELL DISTRIBUTION WIDTH 17.4 % (11.6-17.2); WHITE BLOOD COUNT 5.7 TH/MM3 (4.0-11.0)
[2017-01-02 08:53] LABS: HEMO FLAGS AUTO DIFF
[2017-01-02] MEDS: SUCRALFATE 1 GM TAB PO SCH ×4 (09:00→20:13)
[2017-01-02 09:19] LABS: BICARBONATE 19.2 MEQ/L (21.0-32.0); POTASSIUM 3.4 MEQ/L (3.5-5.1); TOTAL BILIRUBIN ADULT 0.5 MG/DL (0.2-1.0)
[2017-01-02 09:25] LABS: CALCIUM-PROTEIN CORRECTED 6.8 MG/DL (8.5-10.1)
[2017-01-02] MEDS: LACTOBACILLUS ACIDOPHILUS TAB PO SCH ×3 (09:48→16:59)
[2017-01-02] MEDS: NYSTAT/DIPHENHY/LIDO MOUTHWASH (Adult) 120ML SWISH-SWAL SCH ×4 (09:48→20:13)
[2017-01-02] MEDS: SODIUM CHLORIDE 0.9% FLUSH 10 ML FLUSH IV FLUSH SCH ×2 (09:49→20:24)
[2017-01-02] MEDS ORDERED: CALCIUM GLUCONATE INJ 2 GM in SODIUM CHLORIDE 0.9% INJ 100 ML IV ONE (10:00)
[2017-01-02 10:36] LABS: BANDS 49 % (0-6); OVALOCYTES 1+ (NORMAL); PLATELET ESTIMATE SMEAR LOW (NORMAL); PLATELET MORPHOLOGY NORMAL (NORMAL); POLYS (SEG NEUTROPHILS) 39 % (16-70); SCAN/DIFF FINAL DIFF MANUAL; TEARDROP RBCS 1+ (NORMAL); WBC DIFF SAMPLE 100
[2017-01-02] MEDS: SODIUM CHLOR 0.9% 1000 ML INJ 1,000 ML IV SCH (11:04)
[2017-01-02 12:29] VITALS: BP 123/71; PULSE 70; RESP 20; TEMP 97.1; O2SAT 100
--- NOTE | 2017-01-02 13:47 | HHI.PR ---
Subjective Remarks Follow-up C. difficile colitis 01/02/17-patient seen and examined, she reports improvement of diarrheal episode now. She is requesting her diet to be advanced. Currently afebrile. Objective Vitals Vital Signs Date Time Temp Pulse Resp B/P Pulse Ox O2 Delivery O2 Flow Rate FiO2 01/02/17 12:29 97.1 70 20 123/71 100 01/02/17 08:45 96.3 84 20 108/68 100 01/02/17 04:00 96.0 77 16 111/69 100 01/02/17 00:00 96.0 85 16 107/71 100 01/01/17 20:00 98.4 88 16 127/77 100 01/01/17 16:30 98.7 95 20 134/85 98 I/O 01/01/17 01/01/17 01/01/17 01/02/17 01/02/17 01/02/17 07:00 15:00 23:00 07:00 15:00 23:00 Intake Total 480 ml 240 ml Output Total 400 ml 300 ml Balance 80 ml -60 ml Intake Oral 480 ml 240 ml Output Urine Total 400 ml 300 ml # Voids 1 # Bowel Movements 1 4 5 Result Diagram: 01/02/17 0825 01/02/17 0825 Imaging Last Impressions Abdomen/Pelvis CT 01/01/17 1134 Signed Impressions: Service Date/Time: Tuesday, January 01, 2017 12:14 - CONCLUSION: 1. Diffuse colitis, presumably infectious or inflammatory. 2. Cirrhosis with portosystemic collaterals and moderate ascites again noted. Spleen upper limits of normal size. 3. Small effusions and mild atelectasis of the visualized lung bases unchanged. Nelson Collazo MD Objective Remarks GENERAL: Cachectic female in no acute distress SKIN: Warm and dry. Multiple skin rashes HEAD: Normocephalic. EYES: No scleral icterus. No injection or drainage. NECK: Supple, trachea midline. No JVD or lymphadenopathy. CARDIOVASCULAR: Regular rate and rhythm without murmurs, gallops, or rubs. RESPIRATORY: Breath sounds equal bilaterally. No accessory muscle use. GASTROINTESTINAL: Abdomen soft, non-tender, nondistended. MUSCULOSKELETAL: No cyanosis, or edema. BACK: Nontender without obvious deformity. No CVA tenderness. 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 difficile colitis CT abdomen/pelvis noted and review by me with finding of Diffuse colitis, presumably infectious or inflammatory. Continue NS @ 70ml/hr and Flagyl 500 mg IV every 8 hour C. difficile PCR positive pending stool for ova and parasites, crypto, cyclosporine, Giardia antigen and enteric path AIDS AIDS wasting syndrome Last CD4 count less than 20 in 12/08 Noncompliant with medication and we need have patient follow-up with HIV specialist to resume HAART therapy Continue Bactrim for PCP prophylaxis Continue Azithromycin for MARLA prophylaxis Cirrhosis with history of ascites Abdominal pain-resolved CT abdomen/pelvics noted and review by me with finding of Cirrhosis with portosystemic collaterals and moderate ascites again noted. Consider abdominal ultrasound for evaluation for possible paracentesis Severe protein calorie malnutrition Albumin 1.5 and prealbumin pending add Ensure supplement Oral thrush Continue treatment with Magic mouthwash and consider adding fluconazole Hypocalcemia Give 2 g IV calcium gluconate and monitor BMP in a.m. Grant Coto MD Jan 02, 2017 13:47
[2017-01-02 16:00] VITALS: BP 141/78; PULSE 78; RESP 20; TEMP 97.4; O2SAT 100
[2017-01-02] MEDS: ACETAMINOPHEN 325 MG TAB PO PRN (17:49)
[2017-01-02 20:00] VITALS: BP 157/85; PULSE 75; RESP 16; TEMP 97.6; O2SAT 100
[2017-01-02] MEDS: ACETAMINOPHEN/HYDROcodone 325 MG/5 MG TAB PO PRN (20:13)
[2017-01-03] VITALS (7 sets, daily range): BP systolic 130–166; BP diastolic 76–93; PULSE 66–98; RESP 14–18; TEMP 96.6–99.2; O2SAT 100
[2017-01-03] MEDS: metroNIDAZOLE 500 MG INJ 100 ML IV SCH ×2 (00:30→09:53)
[2017-01-03] MEDS: SODIUM CHLOR 0.9% 1000 ML INJ 1,000 ML IV SCH ×2 (00:30→17:36)
[2017-01-03] MEDS: ACETAMINOPHEN/HYDROcodone 325 MG/5 MG TAB PO PRN ×2 (04:28→20:24)
[2017-01-03] MEDS: SODIUM CHLORIDE 0.9% FLUSH 10 ML FLUSH IV FLUSH SCH ×2 (09:00→20:11)
[2017-01-03] MEDS: LACTOBACILLUS ACIDOPHILUS TAB PO SCH ×3 (09:53→17:35)
[2017-01-03] MEDS: SUCRALFATE 1 GM TAB PO SCH ×4 (09:53→20:09)
[2017-01-03] MEDS: SULFAMETHOXAZOLE-TRIMETHOPRIM DS 800-160 MG TAB PO SCH (09:53)
[2017-01-03] MEDS: NYSTAT/DIPHENHY/LIDO MOUTHWASH (Adult) 120ML SWISH-SWAL SCH ×4 (09:53→20:08)
[2017-01-03] MEDS: metroNIDAZOLE 500 MG TAB PO SCH ×2 (13:44→20:11)
--- NOTE | 2017-01-03 14:04 | HHI.PR ---
Subjective Remarks Follow-up C. difficile colitis 01/02/17-patient seen and examined, she reports improvement of diarrheal episode now. She is requesting her diet to be advanced. Currently afebrile. 01/03/17-patient seen and examined, now reported improvement of diarrheal episode however complain of abdominal distentions. Tolerated by mouth without any compression nausea or vomiting. Currently afebrile. Objective Vitals Vital Signs Date Time Temp Pulse Resp B/P Pulse Ox O2 Delivery O2 Flow Rate FiO2 01/03/17 08:00 96.6 66 18 134/78 100 01/03/17 04:00 97.2 75 16 130/80 100 01/03/17 00:00 97.1 76 16 136/80 100 01/02/17 20:00 97.6 75 16 157/85 100 01/02/17 16:00 97.4 78 20 141/78 100 I/O 01/02/17 01/02/17 01/02/17 01/03/17 01/03/17 01/03/17 07:00 15:00 23:00 07:00 15:00 23:00 Intake Total 240 ml 1049 ml 480 ml 240 ml Output Total 300 ml Balance -60 ml 1049 ml 480 ml 240 ml Intake Oral 240 ml 480 ml 480 ml 240 ml IV Total 569 ml Output Urine Total 300 ml # Voids 1 5 3 1 # Bowel Movements 5 5 3 1 Result Diagram: 01/02/17 0825 01/02/17 0825 Imaging Last Impressions Abdomen/Pelvis CT 01/01/17 1134 Signed Impressions: Service Date/Time: Sunday, January 01, 2017 12:14 - CONCLUSION: 1. Diffuse colitis, presumably infectious or inflammatory. 2. Cirrhosis with portosystemic collaterals and moderate ascites again noted. Spleen upper limits of normal size. 3. Small effusions and mild atelectasis of the visualized lung bases unchanged. Nelson Collazo MD Objective Remarks GENERAL: Cachectic female in no acute distress SKIN: Warm and dry. Multiple skin rashes HEAD: Normocephalic. EYES: No scleral icterus. No injection or drainage. NECK: Supple, trachea midline. No JVD or lymphadenopathy. CARDIOVASCULAR: Regular rate and rhythm without murmurs, gallops, or rubs. RESPIRATORY: Breath sounds equal bilaterally. No accessory muscle use. GASTROINTESTINAL: Abdomen soft, non-tender, nondistended. MUSCULOSKELETAL: No cyanosis, or edema. BACK: Nontender without obvious deformity. No CVA tenderness. 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 difficile colitis CT abdomen/pelvis noted and review by me with finding of Diffuse colitis, presumably infectious or inflammatory. Continue NS @ 70ml/hr and switch Flagyl 500 mg to PO every 8 hour C. difficile PCR positive pending stool for ova and parasites, crypto, cyclosporine, Giardia antigen and enteric path AIDS AIDS wasting syndrome Last CD4 count less than 20 in 12/08 Noncompliant with medication and we need have patient follow-up with HIV specialist to resume HAART therapy Continue Bactrim for PCP prophylaxis Continue Azithromycin for MARLA prophylaxis Cirrhosis with history of ascites Abdominal pain- CT abdomen/pelvics with finding of Cirrhosis with portosystemic collaterals and moderate ascites again noted. Will send for ultrasound guided paracentesis today 01/03/17 Severe protein calorie malnutrition Albumin 1.5 and prealbumin pending Continue Ensure supplement Oral thrush Continue treatment with Magic mouthwash and consider adding fluconazole Hypocalcemia Status post 2 g IV calcium gluconate Grant Coto MD Jan 03, 2017 14:04
[2017-01-03] MEDS ORDERED: LIDOCAINE HCL 1% PF 30 ML VIAL ONE (16:05)
--- NOTE | 2017-01-03 17:16 | RADRPT ---
EXAM DATE/TIME: 01/03/2017 15:43 [place] COMPARISON: US GUIDED ABD PARACENTESIS, November 25, 2016, 11:29. INDICATIONS : Ascites. MEDICAL HISTORY : Cirrhosis. HIV. Seizures. Cerebrovascular accident. Liver disease. Ectopic . Substance abuse . SURGICAL HISTORY : section. Exploratory laparatomy. ENCOUNTER: [facility] ACUITY: 1 month PAIN SCORE: 3/10 LOCATION: Right lower quadrant FLUID: Total volume of 2900 cc of clear, yellow fluid was removed. Fluid was discarded. Paracentesis was therapeutic only. Post procedure scanning reveals no hematoma or other complication. TECHNIQUE: 1. Ultrasound guidance for abdominal paracentesis. 2. Paracentesis. The risks, benefits, and alternatives to ultrasound guided paracentesis were explained to the patient in detail including the risk of bleeding and infection. Written and verbal informed consent was obt ained. With the patient on the ultrasound table, ultrasound imaging was used to select the most appropriate approach for paracentesis. Overlying skin was prepped and draped in the usual sterile fashion and wi th a local anesthetic, a dermatotomy was made with an 11 blade scalpel. A 6 [place] Ugt-B-yvwreqrk ca theter was introduced into the peritoneal cavity and fluid was collected. The patient tolerated the procedure well and left the ultrasound suite in stable condition. CONCLUSION: Uncomplicated ultrasound guided paracentesis. Yosef Puente MD FACR on January 03, 2017 at 17:14 Board Certified Radiologist. This report was verified electronically.
[2017-01-04 00:35] VITALS: BP 121/74; PULSE 72; RESP 18; TEMP 97.2; O2SAT 100
[2017-01-04] MEDS: SODIUM CHLOR 0.9% 1000 ML INJ 1,000 ML IV SCH ×3 (04:14→17:03)
[2017-01-04 04:49] VITALS: BP 110/75; PULSE 75; RESP 18; TEMP 97; O2SAT 100
[2017-01-04] MEDS: metroNIDAZOLE 500 MG TAB PO SCH ×3 (05:30→23:04)
[2017-01-04 07:12] LABS: BICARBONATE 18.9 MEQ/L (21.0-32.0); POTASSIUM 3.7 MEQ/L (3.5-5.1)
[2017-01-04] MEDS ORDERED: LIDOCAINE HCL 1% PF 30 ML VIAL ONE (07:41)
[2017-01-04 07:54] LABS: CALCIUM-PROTEIN CORRECTED 7.2 MG/DL (8.5-10.1)
[2017-01-04 08:00] VITALS: BP 119/74; PULSE 82; RESP 20; TEMP 97.9; O2SAT 98
[2017-01-04] MEDS ORDERED: CALCIUM GLUCONATE INJ 2 GM in SODIUM CHLORIDE 0.9% INJ 100 ML IV ONE (08:00)
[2017-01-04] MEDS: SUCRALFATE 1 GM TAB PO SCH ×4 (09:24→19:33)
[2017-01-04] MEDS: SODIUM CHLORIDE 0.9% FLUSH 10 ML FLUSH IV FLUSH SCH ×2 (09:25→19:34)
[2017-01-04] MEDS: NYSTAT/DIPHENHY/LIDO MOUTHWASH (Adult) 120ML SWISH-SWAL SCH ×4 (09:25→19:33)
[2017-01-04] MEDS: ACETAMINOPHEN/HYDROcodone 325 MG/5 MG TAB PO PRN ×2 (09:26→18:53)
[2017-01-04] MEDS: LACTOBACILLUS ACIDOPHILUS TAB PO SCH ×3 (09:34→17:03)
--- NOTE | 2017-01-04 12:36 | HHI.PR ---
Subjective Remarks Follow-up C. difficile colitis 01/02/17-patient seen and examined, she reports improvement of diarrheal episode now. She is requesting her diet to be advanced. Currently afebrile. 01/03/17-patient seen and examined, now reported improvement of diarrheal episode however complain of abdominal distentions. Tolerated by mouth without any compression nausea or vomiting. Currently afebrile. 01/04/17-patient seen and examined, she is status post paracentesis with 2.9 L out yesterday. States she's having fewer diarrheal episodes. Currently afebrile Objective Vitals Vital Signs Date Time Temp Pulse Resp B/P Pulse Ox O2 Delivery O2 Flow Rate FiO2 01/04/17 08:00 97.9 82 20 119/74 98 01/04/17 04:49 97.0 75 18 110/75 100 01/04/17 00:35 97.2 72 18 121/74 100 01/03/17 21:25 18 01/03/17 20:56 99.2 82 18 142/79 100 01/03/17 16:02 97.7 78 14 149/88 100 01/03/17 16:00 97.0 77 18 166/93 100 I/O 01/03/17 01/03/17 01/03/17 01/04/17 01/04/17 01/04/17 07:00 15:00 23:00 07:00 15:00 23:00 Intake Total 240 ml 800 ml 600 ml Balance 240 ml 800 ml 600 ml Intake Oral 240 ml 600 ml IV Total 800 ml # Voids 1 3 # Bowel Movements 1 5 Result Diagram: 01/02/17 0825 01/04/17 0612 Imaging Last Impressions Cyst Biopsy Asp-Paracentesis US 01/03/17 0000 Signed Impressions: Service Date/Time: Tuesday, January 03, 2017 15:43 - CONCLUSION: Uncomplicated ultrasound guided paracentesis. Yosef Puente MD FACR Abdomen/Pelvis CT 01/01/17 1134 Signed Impressions: Service Date/Time: Sunday, January 01, 2017 12:14 - CONCLUSION: 1. Diffuse colitis, presumably infectious or inflammatory. 2. Cirrhosis with portosystemic collaterals and moderate ascites again noted. Spleen upper limits of normal size. 3. Small effusions and mild atelectasis of the visualized lung bases unchanged. Nelson Collazo MD Objective Remarks GENERAL: Cachectic female in no acute distress SKIN: Warm and dry. Multiple skin rashes HEAD: Normocephalic. EYES: No scleral icterus. No injection or drainage. NECK: Supple, trachea midline. No JVD or lymphadenopathy. CARDIOVASCULAR: Regular rate and rhythm without murmurs, gallops, or rubs. RESPIRATORY: Breath sounds equal bilaterally. No accessory muscle use. GASTROINTESTINAL: Abdomen soft, non-tender, nondistended. Positive bowel sounds MUSCULOSKELETAL: No cyanosis, or edema. BACK: Nontender without obvious deformity. No CVA tenderness. 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 difficile colitis CT abdomen/pelvis noted and review by me with finding of Diffuse colitis, presumably infectious or inflammatory. Continue NS @ 70ml/hr and Flagyl 500 mg to PO every 8 hour C. difficile PCR positive however stool for ova and parasites, crypto, cyclosporine, Giardia antigen and enteric path all negative AIDS AIDS wasting syndrome Last CD4 count less than 20 in 12/08 Noncompliant with medication and we need have patient follow-up with HIV specialist to resume HAART therapy Continue Bactrim for PCP prophylaxis Continue Azithromycin for MARLA prophylaxis Cirrhosis with history of ascites Abdominal pain- CT abdomen/pelvics with finding of Cirrhosis with portosystemic collaterals and moderate ascites again noted. Status post ultrasound guided paracentesis 01/03/17 with 2.9 L fluid out Severe protein calorie malnutrition Albumin 1.5 and prealbumin pending Continue Ensure supplement Oral thrush Continue treatment with Magic mouthwash and consider adding fluconazole Hypocalcemia Give 2 g IV calcium gluconate 1 today 01/04/17 Grant Coto MD Jan 04, 2017 12:36
[2017-01-04 12:57] VITALS: BP 125/69; PULSE 85; RESP 20; TEMP 97.3; O2SAT 95
[2017-01-04 16:51] VITALS: BP 135/81; PULSE 82; RESP 20; TEMP 97.9; O2SAT 99
[2017-01-04 20:23] VITALS: BP 126/75; PULSE 86; RESP 16; TEMP 98.7; O2SAT 99
[2017-01-05 00:28] VITALS: BP 132/79; PULSE 78; RESP 18; TEMP 98; O2SAT 97
[2017-01-05 04:00] VITALS: BP 134/85; PULSE 81; RESP 18; TEMP 97.7; O2SAT 99
[2017-01-05] MEDS: metroNIDAZOLE 500 MG TAB PO SCH ×2 (05:45→13:10)
[2017-01-05] MEDS: NYSTAT/DIPHENHY/LIDO MOUTHWASH (Adult) 120ML SWISH-SWAL SCH ×3 (08:27→17:17)
[2017-01-05] MEDS: SULFAMETHOXAZOLE-TRIMETHOPRIM DS 800-160 MG TAB PO SCH (08:28)
[2017-01-05] MEDS: SODIUM CHLORIDE 0.9% FLUSH 10 ML FLUSH IV FLUSH SCH (08:28)
[2017-01-05] MEDS: LACTOBACILLUS ACIDOPHILUS TAB PO SCH ×3 (08:28→17:16)
[2017-01-05] MEDS: SUCRALFATE 1 GM TAB PO SCH ×3 (08:28→17:17)
[2017-01-05] MEDS: ACETAMINOPHEN/HYDROcodone 325 MG/5 MG TAB PO PRN ×2 (08:28→17:16)
[2017-01-05 09:17] VITALS: BP 128/82; PULSE 82; RESP 18; TEMP 98.5; O2SAT 98
[2017-01-05 12:00] VITALS: BP 102/70; PULSE 83; RESP 16; TEMP 95.7; O2SAT 96
--- NOTE | 2017-01-05 14:24 | HHI.PR ---
Subjective Remarks Follow-up for C. difficile Patient very anxious to go home today. She stated that she has no diarrhea. Denies any abdominal pain. She remains afebrile. Patient denies any muscle spasm, chest pain, SOB, or palpitations. Her boyfriend is at the bedside. Objective Vitals Vital Signs Date Time Temp Pulse Resp B/P Pulse Ox O2 Delivery O2 Flow Rate FiO2 01/05/17 12:00 95.7 83 16 102/70 96 01/05/17 09:17 98.5 82 18 128/82 98 01/05/17 04:00 97.7 81 18 134/85 99 01/05/17 00:28 98.0 78 18 132/79 97 01/04/17 20:23 98.7 86 16 126/75 99 01/04/17 19:34 18 01/04/17 16:51 97.9 82 20 135/81 99 I/O 01/04/17 01/04/17 01/04/17 01/05/17 01/05/17 01/05/17 07:00 15:00 23:00 07:00 15:00 23:00 Intake Total 1297 ml 650 ml 650 ml Balance 1297 ml 650 ml 650 ml Intake Oral 480 ml 650 ml 650 ml IV Total 817 ml # Voids 12 5 4 # Bowel Movements 3 3 2 Result Diagram: 01/02/17 0825 01/04/17 0612 Objective Remarks GENERAL: Very thin cachectic female in no acute distress. CARDIOVASCULAR: Regular rate and rhythm without murmurs, gallops, or rubs. RESPIRATORY: Breath sounds equal bilaterally. No accessory muscle use. GASTROINTESTINAL: Abdomen soft, non-tender, positive for distention but per patient assessment improved. Medications and IVs Current Medications Morphine Sulfate 4 mg 4 mg ONCE ONCE IV PUSH Last administered on 01/01/17 12 :12; Start 01/01/17 at 11:45; Stop 01/01/17 at 11:46; Status DC Sodium Chloride (NS 1000 ml Inj) 1,000 ml @ 1,000 mls/hr Q1H IV Last administered on 01/01/17 12:11; Start 01/01/17 at 11:34; Stop 01/01/17 at 12:33 ; Status DC Sodium Chloride 2 ml 2 ml UNSCH PRN IV FLUSH FLUSH AFTER USING IV ACCESS Last administered on 01/01/17 12:12; Start 01/01/17 at 11:45; Stop 01/01/17 at 13:45 ; Status DC Sodium Chloride 1,000 ml @ 999 mls/hr BOLUS ONCE IV Last administered on 01/01 13:06; Start 01/01/17 at 13:00; Stop 01/01/17 at 14:00; Status DC Sodium Chloride (NS 1000 ml Inj) 1,000 ml @ 70 mls/hr [id number] IV Last administered on 01/04/17 17:03; Start 01/01/17 at 13:30 Sodium Chloride (NS Flush) 2 ml UNSCH PRN IV FLUSH FLUSH AFTER USING IV ACCESS ; Start 01/01/17 at 13:30 Sodium Chloride (NS Flush) 2 ml BID IV FLUSH Last administered on 01/03/17 20: 11; Start 01/01/17 at 21:00 Acetaminophen (Tylenol) 650 mg Q4H PRN PO TEMP > 100.4; Start 01/01/17 at 13:30 Ondansetron HCl (Zofran Inj) 4 mg Q6H PRN IVP NAUSEA OR VOMITING; Start at 13:30 Acetaminophen (Tylenol) 650 mg Q6H PRN PO PAIN SCALE 1 TO 2 Last administered on 01/02/17 17:49; Start 01/01/17 at 13:30 Naloxone HCl (Narcan Inj) 0.4 mg UNSCH PRN IV SEE LABEL COMMENTS; Start at 13:30 Azithromycin (Zithromax) 1,200 mg Q7D PO Last administered on 01/01/17 17:34; Start 01/01/17 at 16:30 Multi-Ingredient Mouthwash/Gargle (Magic Mouthwash Adult Liq) 5 ml QID SWISH- SWAL Last administered on 01/05/17 13:16; Start 01/01/17 at 18:00 Sucralfate (Carafate) 1 gm QID PO Last administered on 01/05/17 13:10; Start 01/01/17 at 18:00 Trimethoprim/ Sulfamethoxazole (Bactrim Ds 800-160 Mg) 1 tab EVERY OTHER DAY PO Last administered on 01/05/17 08:28; Start 01/03/17 at 09:00 Lactobacillus Acidophilus 1 tab 1 tab TID PO Last administered on 01/05/17 13: 10; Start 01/01/17 at 18:00 Metronidazole 100 ml @ 100 mls/hr Q8H IV Last administered on 01/03/17 09:53 ; Start 01/01/17 at 17:00; Stop 01/03/17 at 13:07; Status DC Calcium Gluconate/ Sodium Chloride (Calcium Gluconate Inj/NS Inj) 120 ml @ 120 mls/hr ONCE ONCE IV Last administered on 01/02/17 11:03; Start 01/02/17 at 10 :00; Stop 01/02/17 at 10:59; Status DC Acetaminophen/ Hydrocodone Bitart ([place] 5-325 Mg) 1 tab Q6H PRN PO pain 3-10 Last administered on 01/05/17 08:28; Start 01/02/17 at 20:00 Metronidazole 500 mg 500 mg Q8HR PO Last administered on 01/05/17 13:10; Start 01/03/17 at 14:00 Calcium Gluconate/ Sodium Chloride (Calcium Gluconate Inj/NS Inj) 120 ml @ 120 mls/hr ONCE ONCE IV Last administered on 01/04/17 09:24; Start 01/04/17 at 08 :00; Stop 01/04/17 at 08:59; Status DC Lidocaine HCl (Xylocaine-Mpf 1% Inj) 30 ml STK-MED ONCE .ROUTE ; Start 01/04/17 at 07:41; Stop 01/04/17 at 07:42; Status DC Lidocaine HCl (Xylocaine-Mpf 1% Inj) 30 ml STK-MED ONCE .ROUTE Last administered on 01/03/17 16:05; Start 01/03/17 at 16:05; Stop 01/04/17 at 10:21 ; Status DC A/P Problem List: (1) AIDS-associated secretory diarrhea ICD Code: 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 difficile colitis CT abdomen/pelvis finding of Diffuse colitis, presumably infectious or inflammatory. Patient doing well on by mouth Flagyl. C. difficile PCR positive however stool for ova and parasites, crypto, cyclosporine, Giardia antigen and enteric path all negative AIDS AIDS wasting syndrome Last CD4 count less than 20 in 12/08 Noncompliant with medication and we need have patient follow-up with HIV specialist to resume HAART therapy Continue Bactrim for PCP prophylaxis Continue Azithromycin for MARLA prophylaxis Cirrhosis with history of ascites Abdominal pain- CT abdomen/pelvics with finding of Cirrhosis with portosystemic collaterals and moderate ascites again noted. Status post ultrasound guided paracentesis 01/03/17 with 2.9 L fluid out Severe protein calorie malnutrition Albumin 1.5 and prealbumin pending Continue Ensure supplement Oral thrush Continue treatment with Magic mouthwash and consider adding fluconazole Hypocalcemia Give 2 g IV calcium gluconate 1 today 01/04/17 Will need repeat of calcium. Based on results to determine management. Will start patient on Tums. Discharge Planning Will need to repeat calcium if normal patient can be discharged to home. If continues to be low she will need IV calcium replacement. Kritsina Mccarty MD Jan 05, 2017 14:24
[2017-01-05] MEDS ORDERED: CALCIUM CARBONATE 500 MG CHEWABLE TAB CHEW SCH (15:00)
[2017-01-05] MEDS ORDERED: LACT PO (15:26)
[2017-01-05] MEDS ORDERED: METR-1 PO (15:26)
[2017-01-05] MEDS ORDERED: MAGICADU2 SWISH-SWAL (15:26)
--- NOTE | 2017-01-05 15:31 | HHI.DCPOC ---
Discharge Care Plan Diagnosis: (1) C. difficile colitis (2) Hypocalcemia Goals to Promote Your Health * To prevent worsening of your condition and complications * To maintain your health at the optimal level Directions to Meet Your Goals Take your medications as prescribed Follow your dietary instruction Follow activity as directed Keep your appointments as scheduled Take your immunizations and boosters as scheduled If your symptoms worsen call your PCP, if no PCP go to Urgent Care Center or Emergency Room Smoking is Dangerous to Your Health. Avoid second hand smoke Call the 24-hour hour crisis hotline for domestic abuse at Kristina Mccarty MD Jan 05, 2017 15:31
[2017-01-05 16:00] VITALS: BP 124/77; PULSE 80; RESP 16; TEMP 97.1; O2SAT 100
--- NOTE | 2017-01-06 14:09 | HHI.DS ---
Discharge Summary Admission Date Jan 01, 2017 at 13:26 Discharge Date: Jan 05, 2017 Admitting Diagnosis colitis, HIV, dehydration (1) C. 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 Diagnosis: Secondary (4) Thrush ICD Code: B37.0 Diagnosis: Secondary (5) Hypocalcemia ICD Code: E83.51 Diagnosis: Secondary (6) Liver cirrhosis ICD Code: K74.60 Diagnosis: Secondary (7) Ascites ICD Code: R18.8 Diagnosis: Principal Procedures paracentesis Brief History - From Admission 51 year-old -Mal[place] female with a history of HIV/AIDS, hepatitis C, cirrhosis presented to the ED for evaluation of 2 weeks history of running diarrhea described as bloody mucousy stools and worse over the past 48 hours associated with abdominal pain and distention and patient also now complains of low back pain and denies any relief with crlo-ddi-zwyrest Tylenol. She denies any febrile episode. Patient is a very poor historian and noncompliant with medical care. She states, she was seen by her HIV specialist about a month ago. CBC/BMP: 01/02/17 0825 01/04/17 0612 Significant Findings Laboratory Tests Test 01/04/17 01/05/17 06:12 12:10 Chloride Level 114 MEQ/L (98-107) Carbon Dioxide Level 18.9 MEQ/L (21.0-32.0) Blood Urea Nitrogen 6 MG/DL (7-18) Calcium Level 7.0 MG/DL 7.5 MG/DL (8.5-10.1) (8.5-10.1) Protein Corrected Calcium 7.2 MG/DL (8.5-10.1) Imaging Last Impressions Cyst Biopsy Asp-Paracentesis US 01/03/17 0000 Signed Impressions: Service Date/Time: Tuesday, January 03, 2017 15:43 - CONCLUSION: Uncomplicated ultrasound guided paracentesis. Yosef Puente MD FACR Abdomen/Pelvis CT 01/01/17 1134 Signed Impressions: Service Date/Time: Sunday, January 01, 2017 12:14 - CONCLUSION: 1. Diffuse colitis, presumably infectious or inflammatory. 2. Cirrhosis with portosystemic collaterals and moderate ascites again noted. Spleen upper limits of normal size. 3. Small effusions and mild atelectasis of the visualized lung bases unchanged. Nelson Collazo MD PE at Discharge GENERAL: Very thin cachectic female in no acute distress. CARDIOVASCULAR: Regular rate and rhythm without murmurs, gallops, or rubs. RESPIRATORY: Breath sounds equal bilaterally. No accessory muscle use. GASTROINTESTINAL: Abdomen soft, non-tender, positive for distention but no TTP and abdomen is soft. Pt update on day of discharge see progress note Hospital Course 51-year-old female with Colitis AIDS-associated secretory diarrhea C. difficile colitis CT abdomen/pelvis finding of Diffuse colitis, presumably infectious or inflammatory. Stool studies sent and found to have C. difficile PCR positive however stool for ova and parasites, crypto, cyclosporine, Giardia antigen and enteric path all negative patient was put on Flagyl and did very well. her symptoms resolved during hospitalization. AIDS AIDS wasting syndrome Last CD4 count less than 20 in 12/08 Noncompliant with medication and we need have patient follow-up with HIV specialist to resume HAART therapy Continue Bactrim for PCP prophylaxis Continue Azithromycin for MARLA prophylaxis Cirrhosis with history of ascites Abdominal pain- CT abdomen/pelvics with finding of Cirrhosis with portosystemic collaterals and moderate ascites again noted. Status post ultrasound guided paracentesis 01/03/17 with 2.9 L fluid out abdominal pain resolved with treatment. Lasix and spirolactone held. it was restarted on discharge. Severe protein calorie malnutrition Albumin 1.5 and prealbumin pending Continue Ensure supplement Oral thrush patient was put on Magic mouthwash. Hypocalcemia patient was on tums for this and it was not restarted. he was given 2 g IV calcium gluconate 1 today 01/04/17 repeat Ca showed she was back to her baseline. TUMS was restarted. she was asymptomatic throughout hospital course. Pt Condition on Discharge: Good Discharge Disposition: Discharge Home Discharge Time: <= 30 minutes Discharge Instructions DIET: Follow Instructions for: Heart Healthy Diet Activities you can perform: Regular-No Restrictions Follow up Referrals: PCP Follow-up - 1 Week New Medications: Lactobacillus Acidophilus (Acidophilus/l-Sporogenes) 1 Tab Tab 1 TAB PO TID colitis #90 Ref 0 TAB Metronidazole (Flagyl) 500 Mg Tab 500 MG PO Q8HR C diff #30 TAB Dmbsfxbz-Pbzmefnlomqxfvg-Sbymvpwpm Liq (Magic Mouthwash Adult Liq) 120 Ml Susp 5 ML SWISH-SWAL QID oral thrush #100 Ref 0 ML Continued Medications: Azithromycin (Azithromycin) 600 Mg Tab 1200 MG PO Q7D prophylaxis Days 30 Ref 0 TAB Calcium Carbonate (Antacid) (Calcium Carbonate (Antacid)) 500 Mg Chew 500 MG CHEW Q12HR acid reflex #30 Ref 0 EA Dicyclomine (Bentyl) 20 Mg Tab 20 MG PO TID Pain #30 TAB Furosemide (Furosemide) 20 Mg Tab 20 MG PO DAILY edema #30 Ref 0 TAB Omeprazole (Omeprazole) 40 Mg Cap 40 MG PO DAILY GERD #30 Ref 0 CAP Spironolactone (Aldactone) 25 Mg Tab 25 MG PO DAILY ascites edema #30 Ref 0 TAB Sucralfate (Carafate) 1 Gm Tab 1 GM PO QID On empty stomach Ulcer Prevention #120 TAB Sulfamethoxazole-Trimethoprim (Bactrim DS) 800-160 Mg Tab 1 TAB PO EVERY OTHER DAY Infection #20 Ref 0 TAB ([Aspirin Chew]) 81 MG CHEW 81 MG CHEW DAILY CAD #30 Ref 0 TAB.CHEW Discontinued Medications: Docusate Sodium (Dok) 100 Mg Cap 100 MG PO Q12H constipation #30 Ref 0 CAP Levofloxacin (Levaquin) 500 Mg Tab 500 MG PO DAILY UTI and lung infection #10 Ref 0 TAB Kristina Mccarty MD Jan 06, 2017 14:09
== END 2017-01-05 19:04 | disposition home or self-care (01) | DRG 974 ==
LOC: NEPE 11:15 → NEDA 13:26 → HOCB 16:09
PROVIDERS: ADMIT Family Medicine; ATTEND Family Medicine
PROC: 0W9G3ZZ Drainage of Peritoneal Cavity, Percutaneous Approach (ICD-10-PCS; principal; 2017-01-03)
DX: B20 Human immunodeficiency virus [HIV] disease (principal); E43 Unspecified severe protein-calorie malnutrition; B37.0 Candidal stomatitis; K74.69 Other cirrhosis of liver; R64 Cachexia; R18.8 Other ascites; A04.7 Enterocolitis due to Clostridium difficile; Z68.1 Body mass index [BMI] 19.9 or less, adult; E83.51 Hypocalcemia; E86.0 Dehydration; B19.20 Unspecified viral hepatitis C without hepatic coma; G43.909 Migraine, unspecified, not intractable, without status migrainosus; Z87.891 Personal history of nicotine dependence; Z86.73 Personal history of transient ischemic attack (TIA), and cerebral infarction without residual deficits; Z91.19 Patient's noncompliance with other medical treatment and regimen
CPT/HCPCS: 49083; 74176; 80048; 80053; 82310; 82330; 83690; 84134; 84155; 85007; 85025; 85027; 85610; 87207; 87328; 87329; 87493; 87506; 96361; 96374; C1729; J0610; J2270; J7030

== ENCOUNTER 2017-02-04 10:54 | Emergency (ER) | payer MEDICARE, MEDICAID ==
[~2017-02-04 10:54] MED LIST changes: -DOCU1CAP39 PO; +LACT PO; -LEVA500T PO; +METR-1 PO
[2017-02-04 11:02] VITALS: BP 106/61; PULSE 76; RESP 16; TEMP 98.1; O2SAT 98
[2017-02-04] MEDS ORDERED: SODIUM CHLOR 0.9% 1000 ML INJ 1,000 ML IV SCH (11:28)
[2017-02-04] MEDS ORDERED: ONDANSETRON HCL 4 MG/2 ML VIAL IVP ONE (11:30)
[2017-02-04] MEDS ORDERED: MORPHINE SULFATE 4 MG/ML INJ IV PUSH ONE (11:30)
--- NOTE | 2017-02-04 11:40 | PD ---
HPI Chief Complaint: GI Complaint Time Seen by Provider: 11:35 Travel History International Travel<30 days: No Contact w/Intl Traveler<30days: No Traveled to known affect area: No History of Present Illness HPI 51-year-old female that presents to the ED for evaluation of abdominal discomfort and diarrhea for one week. Per patient she's had bloody stools. She has a chronic history of HIV with noncompliance and a CD4 count of 20 as well as GI bleeds and ascites secondary to liver cirrhosis from alcohol abuse. Patient actually has been here multiple times with similar complaints in the past. Per patient she did have paracentesis recently. She denies any distention but states that the abdominal pain is more in the lower abdomen. Per patient she is concerned because the diarrhea is bloody. Patient was admitted last month and was found to have C. difficile with fever and she was admitted to the hospital. Patient did well and was discharged. Per patient she just started her HIV medications today as she just got him yesterday. She denies any other medical issues. She has no allergies to medication. She states that she takes no blood thinners. Of note she is a poor historian which has been reported a multiple charts during her different evaluations. 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 She denies any nausea or vomiting. She denies any urinary symptoms. No allergies to medication. pain per patient is 10/10. PFSH Past Medical History Arthritis: No Asthma: No Autoimmune Disease: Yes Blood Disorders: Yes Anxiety: No Depression: No Heart Rhythm Problems: No Cancer: No Cardiovascular Problems: Yes High Cholesterol: No Chemotherapy: No Chest Pain: No Congestive Heart Failure: No Cirrhosis: Yes COPD: No Cerebrovascular Accident: Yes (CVA X 2) Diabetes: No Diminished Hearing: No Endocrine: No Gastrointestinal Disorders: Yes GERD: No Genitourinary: Yes Headaches: Yes Hiatal Hernia: No Immune Disorder: Yes (HIV) Kidney Stones: No Musculoskeletal: No Neurologic: Yes Psychiatric: No Reproductive: No Respiratory: No Migraines: Yes Radiation Therapy: No Renal Failure: No Seizures: Yes Sickle Cell Disease: No Sleep Apnea: No Thyroid Disease: No Ulcer: No Influenza Vaccination: No ?: Not Menopausal: Yes : 2 Para: 0 Miscarriage: 1 : 1 Ectopic : Yes Ovarian Cysts: Yes Past Surgical History Abdominal Surgery: Yes (EXP. LAP.) AICD: No Arteriovenous Shunt: No Cardiac Surgery: No Section: Yes Ear Surgery: No Endocrine Surgery: No Eye Surgery: No Genitourinary Surgery: No Gynecologic Surgery: Yes Insulin Pump: No Joint Replacement: No Oral Surgery: No Pacemaker: No Thoracic Surgery: No Other Surgery: Yes (, ectopic ) Social History Alcohol Use: No (quit liquor) Tobacco Use: No (quit hx 1 ppd) Substance Use: No (hx crack) Allergies-Medications (Allergen,Severity, Reaction): Coded Allergies: No Known Allergies (Verified , 02/04/17) Reported Meds & Prescriptions Reported Meds & Active Scripts Active Zofran (Ondansetron HCl) 4 Mg Tab 4 Mg PO Q6HR PRN Tramadol (Tramadol HCl) 50 Mg Tab 50 Mg PO Q6H PRN Cipro (Ciprofloxacin HCl) 500 Mg Tab 500 Mg PO BID 10 Days Flagyl (Metronidazole) 500 Mg Tab 500 Mg PO QID 10 Days Azithromycin 600 Mg Tab 1,200 Mg PO Q7D 30 Days Reported Mepron Liq (Atovaquone) 750 Mg/5 Ml Susp 1,500 Mg PO DAILY Take with food. Fluconazole 100 Mg Tab 100 Mg PO DAILY 21 Days Prezcobix (Darunavir-Cobicistat) 800-150 Mg Tab 1 Tab PO DAILY Triumeq (Joopotjz-Kpeklqevyfxw-Nqgalhoyer) 600-50-300 Mg Tab 1 Tab PO DAILY Hazardous agent; use appropriate precautions for handling & disposal. Review of Systems Except as stated in HPI: all other systems reviewed are Neg Physical Exam Narrative GENERAL: SKIN: Warm and dry. HEAD: Atraumatic. Normocephalic. EYES: Pupils equal and round. No scleral icterus. No injection or drainage. ENT: No nasal bleeding or discharge. Mucous membranes pink and moist. Tongue is midline. No uvula deviation. NECK: Trachea midline. No JVD. CARDIOVASCULAR: Regular rate and rhythm. No murmurs, S3, S4. RESPIRATORY: No accessory muscle use. Clear to auscultation. Breath sounds equal bilaterally. GASTROINTESTINAL: Abdomen soft, tender to palpation on the lower abdomen, nondistended. Hepatic and splenic margins not palpable. MUSCULOSKELETAL: Extremities without clubbing, cyanosis, or edema. No obvious deformities. Full range of motion of the upper and lower extremities bilaterally. 2+ pulses bilaterally. NEUROLOGICAL: Awake and alert. No obvious cranial nerve deficits. Motor grossly within normal limits. Five out of 5 muscle strength in the arms and legs. Normal speech. PSYCHIATRIC: Appropriate mood and affect; insight and judgment normal. Data Data Last Documented VS Vital Signs Date Time Temp Pulse Resp B/P Pulse Ox O2 Delivery O2 Flow Rate FiO2 02/04/17 13:05 94 Room Air 02/04/17 11:02 98.1 76 16 106/61 Orders Complete Blood Count With Diff (02/04/17 11:13) Comprehensive Metabolic Panel (02/04/17 11:13) Prothrombin Time / Inr (Pt) (02/04/17 11:13) Act Partial Throm Time (Ptt) (02/04/17 11:13) Blood Culture (02/04/17 11:13) Lipase (02/04/17 11:13) Urinalysis - C+S If Indicated (02/04/17 11:13) Magnesium (Mg) (02/04/17 11:13) C Diff Toxin Pcr (02/04/17 11:13) Ct Abd/Pel W Iv Contrast(Rout) (02/04/17 11:13) Iv Access Insert/Monitor (02/04/17 11:13) Ecg Monitoring (02/04/17 11:13) Oximetry (02/04/17 11:13) Ammonia (02/04/17 11:13) Morphine Inj (Morphine Inj) (02/04/17 11:30) Ondansetron Inj (Zofran Inj) (02/04/17 11:30) Sodium Chlor 0.9% 1000 Ml Inj (Ns 1000 M (02/04/17 11:28) Morphine Inj (Morphine Inj) (02/04/17 12:00) Iohexol 350 Inj (Omnipaque 350 Inj) (02/04/17 14:09) Ondansetron Inj (Zofran Inj) (02/04/17 14:45) Labs Laboratory Tests Test 02/04/17 02/04/17 11:51 12:25 White Blood Count 5.4 TH/MM3 Red Blood Count 2.85 MIL/MM3 Hemoglobin 8.7 GM/DL Hematocrit 26.9 % Mean Corpuscular Volume 94.3 FL Mean Corpuscular Hemoglobin 30.4 PG Mean Corpuscular Hemoglobin 32.3 % Concent Red Cell Distribution Width 16.8 % Platelet Count 126 TH/MM3 Mean Platelet Volume 10.2 FL Neutrophils (%) (Auto) % Lymphocytes (%) (Auto) % Monocytes (%) (Auto) % Eosinophils (%) (Auto) % Basophils (%) (Auto) % Neutrophils # (Auto) TH/MM3 Lymphocytes # (Auto) TH/MM3 Monocytes # (Auto) TH/MM3 Eosinophils # (Auto) TH/MM3 Basophils # (Auto) TH/MM3 CBC Comment AUTO DIFF Differential Total Cells 100 Counted Neutrophils % (Manual) 40 % Band Neutrophils % 48 % Lymphocytes % 4 % Monocytes % 5 % Eosinophils % 1 % Neutrophils # (Manual) 4.8 TH/MM3 Differential Comment FINAL DIFF MANUAL Plasma Cells 2 % Platelet Estimate LOW Platelet Morphology Comment NORMAL Ovalocytes 1+ Prothrombin Time 13.0 SEC Prothromb Time International 1.2 RATIO Ratio Activated Partial 34.3 SEC Thromboplast Time Sodium Level 138 MEQ/L Potassium Level 4.5 MEQ/L Chloride Level 110 MEQ/L Carbon Dioxide Level 21.5 MEQ/L Anion Gap 7 MEQ/L Blood Urea Nitrogen 10 MG/DL Creatinine 0.77 MG/DL Estimat Glomerular Filtration 95 ML/MIN Rate Random Glucose 73 MG/DL Calcium Level 8.2 MG/DL Magnesium Level 2.0 MG/DL Total Bilirubin 0.7 MG/DL Aspartate Amino Transf 48 U/L (AST/SGOT) Alanine Aminotransferase 17 U/L (ALT/SGPT) Alkaline Phosphatase 144 U/L Ammonia 22 MCMOL/L Total Protein 8.7 GM/DL Albumin 1.5 GM/DL Lipase 87 U/L Stool C. difficile Toxin (PCR) POSITIVE Stl C. difficile Toxin PRESUMPTIVE Epiderm 027 POSITIVE MDM Medical Decision Making Medical Screen Exam Complete: Yes Emergency Medical Condition: Yes Medical Record Reviewed: Yes Interpretation(s) CBC & BMP Diagram 02/04/17 11:51 coags WNL LFTs and lipase WNL ammonia WNL CT negative for acute disease. Differential Diagnosis Colitis versus GI bleed versus acute abdomen versus fever versus HIV versus noncompliant Narrative Course 51-year-old female that presents to the ED for evaluation of diarrhea, abdominal pain and bleeding. Patient was properly examined and was found to have signs and symptoms of unclear etiology at this time. Patient does have a typical comorbidities and she is unreliable with her HIV medications. She has a CD4 count of less than 20. At this time she is not tachycardic and has no fever so less likely sepsis. At this time I do recommend labs and imaging as well as C. difficile evaluation as she already was just found to have C. difficile. Labs and imaging ordered. Patient was given IV fluids and medications. Labs and imaging showed no sign of acute disease. Labs and imaging wasn't unremarkable. No sign of WBC count without any signs of sepsis at this time. CT was negative for acute . C. difficile positive. I spoke with my attending Dr. Dorsey who was made aware of all findings and who agrees with discharge and close follow-up. Patient will be started on Flagyl and Cipro to cover for possible c. diff again. Patient was told to follow closely with PCP. See ED if worsening symptoms. Drink plenty of fluids. Patient was given prescription for Zofran and tramadol for pain. HemaPrompt Point of Care Internal Pos. & Neg. Controls: Passed Fecal Specimen Occult Blood: Positive Diagnosis Primary Impression: C. difficile colitis Patient Instructions: General Instructions, Narcotic given in the ED Additional Instructions: Take medications as prescribed. Follow up closely with your doctor. Continue taking your HIV medications. See ED for any worsening symptoms. Do not drink or drive while taking pain medication. Med/Other Pt SpecificInfo: Prescription(s) given Scripts Ondansetron (Zofran)4 Mg Tab4 Mg PO Q6HR PRN (NAUSEA OR VOMITING) #15 TAB Ref 0 Prov:Machelle Jose MD 02/04/17 Tramadol 50 Mg Tab50 Mg PO Q6H PRN (PAIN) #14 TAB Ref 0 Prov:Machelle Jose MD 02/04/17 Ciprofloxacin (Cipro)500 Mg Aus600 Mg PO BID 10 Days Ref 0 Prov:Machelle Jose MD 02/04/17 Metronidazole (Flagyl)500 Mg Yhm810 Mg PO QID 10 Days Ref 0 Prov:Machelle Jose MD 02/04/17 Disposition: 01 DISCHARGE HOME Condition: Stable En Davis Feb 04, 2017 11:40
[2017-02-04] MEDS ORDERED: ABAC1TAB3 PO (11:50)
[2017-02-04] MEDS ORDERED: FLUC100T2 PO (11:50)
[2017-02-04] MEDS ORDERED: ATOV750UDC PO (11:50)
[2017-02-04] MEDS ORDERED: DARU1TAB2 PO (11:50)
[2017-02-04] MEDS ORDERED: MORPHINE SULFATE 8 MG/ML INJ IV PUSH ONE (12:00)
[2017-02-04 12:55] LABS: HEMATOCRIT 26.9 % (35.0-46.0); MEAN CELL VOLUME 94.3 FL (80.0-100.0); MEAN CORPUSCULAR HEMOGLOBIN 30.4 PG (27.0-34.0); MEAN CORPUSCULAR HGB CONC 32.3 % (32.0-36.0); PLATELET COUNT 126 TH/MM3 (150-450); RED BLOOD COUNT 2.85 MIL/MM3 (4.00-5.30); RED CELL DISTRIBUTION WIDTH 16.8 % (11.6-17.2); WHITE BLOOD COUNT 5.4 TH/MM3 (4.0-11.0)
[2017-02-04 13:02] LABS: APTT (PATIENT) 34.3 SEC (24.3-30.1); INTERNATIONAL NORMALIZED RATIO 1.2 RATIO
[2017-02-04 13:04] LABS: HEMO FLAGS AUTO DIFF
[2017-02-04 13:05] VITALS: O2SAT 94
[2017-02-04 13:13] LABS: ALT (GPT) 17 U/L (10-53); ANION GAP 7 MEQ/L (5-15); AST (GOT) 48 U/L (15-37); BICARBONATE 21.5 MEQ/L (21.0-32.0); CHLORIDE 110 MEQ/L (98-107); GLOMERULAR FILTRATION RATE 95 ML/MIN (>89); SODIUM (NA) 138 MEQ/L (136-145)
[2017-02-04 13:14] LABS: POTASSIUM 4.5 MEQ/L (3.5-5.1)
[2017-02-04 13:19] LABS: ALKALINE PHOSPHATASE 144 U/L (45-117); BLOOD UREA NITROGEN 10 MG/DL (7-18); TOTAL BILIRUBIN ADULT 0.7 MG/DL (0.2-1.0)
[2017-02-04 13:49] LABS: BANDS 48 % (0-6); EOSINOPHILS 1 % (0-4); NEUTROPHIL # MANUAL DIFF 4.8 TH/MM3 (1.8-7.7); PLASMA CELLS 2 % (0-0); POLYS (SEG NEUTROPHILS) 40 % (16-70); WBC DIFF SAMPLE 100
[2017-02-04 13:50] LABS: OVALOCYTES 1+ (NORMAL); PLATELET ESTIMATE SMEAR LOW (NORMAL); PLATELET MORPHOLOGY NORMAL (NORMAL); SCAN/DIFF FINAL DIFF MANUAL
[2017-02-04] MEDS ORDERED: IOHEXOL 350 MG/ML 10 ML VIAL (for RAD DIAG) IV ONE (14:09)
[2017-02-04] MEDS ORDERED: ONDANSETRON HCL 4 MG/2 ML VIAL IV PUSH ONE (14:45)
--- NOTE | 2017-02-04 14:46 | RADRPT ---
EXAM DATE/TIME: 02/04/2017 13:54 [facility] COMPARISON: CT ABDOMEN & PELVIS W/O CONTRAST, January 01, 2017, 12:14. INDICATIONS : Abdominal pain and diarrhea. IV CONTRAST: 85 cc Omnipaque 350 (iohexol) IV ORAL CONTRAST: No oral contrast ingested. RADIATION DOSE: 4.52 CTDIvol (mGy) MEDICAL HISTORY : HIV. Cirrhosis. Ectopic , ovarian cysts. SURGICAL HISTORY : None. ENCOUNTER: Initial ACUITY: 1 day PAIN SCALE: 5/10 LOCATION: lower quadrant TECHNIQUE: Volumetric scanning of the abdomen and pelvis was performed. Using automated exposure control and adjustment of the mA and/or kV according to patient size, radiation dose was kept as low as reasonably achievable to obtain optimal diagnostic quality images. DICOM format image data is av ailable electronically for review and comparison. FINDINGS: CT Abdomen: The pancreas, kidneys, adrenals are unremarkable. There is no evidence for any appreciabl e pathological adenopathy, or bowel obstruction. Slight bibasilar atelectasis and/or infiltrate is s een. There is a slight ascites in the perihepatic space and down in the pelvis in the cul-de-sac. Spl een measures 11.6 cm in craniocaudal dimensions without focal lesions. The liver appears cirrhotic wi th recanalized paraumbilical vein and multiple varices at the level of the gas esophageal junction an d the splenic hilum worse involving the splenic hilum. CT pelvis: There is no evidence for mass, abscess formation, or any significant adenopathy within the pelvis. There are benign-appearing lymph nodes in bilateral groin the largest one on the left measur es 2 cm in size. CONCLUSION: 1. Significant reduction in ascites since the prior examination with slight ascites remaining. 2. Cirrhosis and signs of portal venous hypertension. Amy Vincent MD on February 04, 2017 at 14:36 Board Certified Radiologist. This report was verified electronically.
[2017-02-04] MEDS ORDERED: METR-1 PO (14:50)
[2017-02-04] MEDS ORDERED: CIPR-9 PO (14:50)
[2017-02-04] MEDS ORDERED: TRAM50TA PO (14:50)
[2017-02-04] MEDS ORDERED: ZOFR4TAB PO (14:50)
[2017-02-04 14:53] LABS: C. DIFF TOXIN PCR POSITIVE (NEGATIVE)
[2017-02-04 14:54] LABS: C. DIFF EPI 027 PRESUMPTIVE POSITIVE (NEGATIVE)
[2017-02-04] MEDS ORDERED: metroNIDAZOLE 500 MG TAB PO ONE (15:00)
[2017-02-04 15:11] VITALS: BP 129/70; PULSE 103; RESP 24; O2SAT 98
[2017-02-04 15:28] LABS: BLOOD, URINE MOD (NEG); COMMENT (UR) CULTURE INDICATED; CULTURE IF INDICATED CULTURE INDICATED; GLUCOSE,URINE NEG (NEG); KETONE, URINE NEG (NEG); NITRITE,URINE NEG (NEG); SQUAMOUS EPITHELIAL CELL URINE 6 /hpf (0-5); URINE COLOR YELLOW (YELLW/STRAW)
== END 2017-02-04 15:34 | disposition home or self-care (01) ==
LOC: NEPC 10:54
DX: A04.7 Enterocolitis due to Clostridium difficile (principal); K92.1 Melena; K74.60 Unspecified cirrhosis of liver; Z21 Asymptomatic human immunodeficiency virus [HIV] infection status; Z79.899 Other long term (current) drug therapy; Z86.2 Personal history of diseases of the blood and blood-forming organs and certain disorders involving the immune mechanism; Z86.79 Personal history of other diseases of the circulatory system; Z87.19 Personal history of other diseases of the digestive system; Z86.69 Personal history of other diseases of the nervous system and sense organs
CPT/HCPCS: 74177; 80053; 81001; 82140; 83690; 83735; 85007; 85027; 85610; 85730; 87040; 87086; 87493; 96374; 96375; 96376; 99285; J2270; J2405; J7030; Q9967

== ENCOUNTER 2017-02-05 09:28 | Inpatient (IN) | payer MEDICARE, MEDICAID ==
[2017-02-05] VITALS (10 sets, daily range): BP systolic 96–128; BP diastolic 50–70; PULSE 50–88; RESP 15–24; TEMP 97.7–98.2; O2SAT 95–100
[~2017-02-05] VITALS: Ht 162.6 cm; Wt 47.5 kg
[~2017-02-05 09:28] MED LIST changes: +ABAC1TAB3 PO; +ATOV750UDC PO; -Aspirin Chew CHEW; -BACT800T5 PO; -BENT20TA PO; -CALC500C16 CHEW; -CARA1TAB6 PO; +CIPR-9 PO; +DARU1TAB2 PO; +FLUC100T2 PO; -FURO20TA PO; -LACT PO; -MAGICADU2 SWISH-SWAL; -OMEP40CA2 PO; -SPIR25 PO; +TRAM50TA PO; +ZOFR4TAB PO
[2017-02-05] MEDS ORDERED: SODIUM CHLOR 0.9% 1000 ML INJ 1,000 ML IV SCH (10:23)
[2017-02-05] MEDS ORDERED: SODIUM CHLORIDE 0.9% FLUSH 10 ML FLUSH IV FLUSH PRN (10:30)
[2017-02-05] MEDS ORDERED: metroNIDAZOLE 500 MG INJ 100 ML IV ONE (10:45)
[2017-02-05 11:14] LABS: HEMATOCRIT 26.7 % (35.0-46.0); MEAN CELL VOLUME 96.3 FL (80.0-100.0); MEAN CORPUSCULAR HEMOGLOBIN 31.7 PG (27.0-34.0); MEAN CORPUSCULAR HGB CONC 32.9 % (32.0-36.0); PLATELET COUNT 132 TH/MM3 (150-450); RED BLOOD COUNT 2.78 MIL/MM3 (4.00-5.30); RED CELL DISTRIBUTION WIDTH 17.1 % (11.6-17.2); WHITE BLOOD COUNT 6.8 TH/MM3 (4.0-11.0)
[2017-02-05 11:15] LABS: HEMO FLAGS AUTO DIFF
--- NOTE | 2017-02-05 11:22 | PD ---
HPI Chief Complaint: GI Complaint Time Seen by Provider: 10:23 Travel History International Travel<30 days: No Contact w/Intl Traveler<30days: No Traveled to known affect area: No History of Present Illness HPI Patient is a 51-year-old female with history of HIV and noncompliance with medications, returns to emergency room with complaints of abdominal pain and diarrhea. Patient reports having abdominal pain and diarrhea for the past week , patient was seen in the emergency room yesterday and had a full workup including a CT of abdomen and pelvis which showed reduction in her ascites, cirrhosis and signs of portal venous hypertension. Patient also has C. difficile cultures, patient was C. difficile positive and was started on Flagyl as well as Cipro. Patient reports that she has not started her antibiotics as an outpatient, she is having increased lower abdominal pain with increased nausea and vomiting. Patient reports that she has not started her antibiotics as she did not have time to fill her scripts. Patient reports that she has been having subjective fevers. PFSH Past Medical History Hx Anticoagulant Therapy: No Arthritis: No Asthma: No Autoimmune Disease: Yes Blood Disorders: Yes Anxiety: No Depression: No Heart Rhythm Problems: No Cancer: No Cardiomyopathy: No Cardiovascular Problems: No High Cholesterol: No Chemotherapy: No Chest Pain: No Congestive Heart Failure: No Cirrhosis: Yes COPD: No Cerebrovascular Accident: Yes (x2) Diabetes: No Diminished Hearing: No Endocrine: No Gastrointestinal Disorders: Yes GERD: No Genitourinary: Yes Headaches: Yes Hiatal Hernia: No Immune Disorder: Yes (HIV) Kidney Stones: No Musculoskeletal: No Neurologic: Yes Psychiatric: No Reproductive: No Respiratory: No Migraines: Yes Radiation Therapy: No Renal Failure: No Seizures: Yes Sickle Cell Disease: No Sleep Apnea: No Thyroid Disease: No Ulcer: No ?: Not Menopausal: Yes : 2 Para: 0 Miscarriage: 1 : 1 Ectopic : Yes Ovarian Cysts: Yes Past Surgical History Abdominal Surgery: Yes (EXP. LAP.) AICD: No Arteriovenous Shunt: No Cardiac Surgery: No Section: Yes Ear Surgery: No Endocrine Surgery: No Eye Surgery: No Genitourinary Surgery: No Gynecologic Surgery: Yes Hysterectomy: No Insulin Pump: No Joint Replacement: No Oral Surgery: No Pacemaker: No Thoracic Surgery: No Other Surgery: Yes (, ectopic ) Social History Alcohol Use: No (quit liquor) Tobacco Use: No (quit hx 1 ppd) Substance Use: No (hx crack) Allergies-Medications (Allergen,Severity, Reaction): Coded Allergies: No Known Allergies (Verified , 02/05/17) Reported Meds & Prescriptions Reported Meds & Active Scripts Active Zofran (Ondansetron HCl) 4 Mg Tab 4 Mg PO Q6HR PRN Tramadol (Tramadol HCl) 50 Mg Tab 50 Mg PO Q6H PRN Cipro (Ciprofloxacin HCl) 500 Mg Tab 500 Mg PO BID 10 Days Flagyl (Metronidazole) 500 Mg Tab 500 Mg PO QID 10 Days Azithromycin 600 Mg Tab 1,200 Mg PO Q7D 30 Days Reported Mepron Liq (Atovaquone) 750 Mg/5 Ml Susp 1,500 Mg PO DAILY Take with food. Fluconazole 100 Mg Tab 100 Mg PO DAILY 21 Days Prezcobix (Darunavir-Cobicistat) 800-150 Mg Tab 1 Tab PO DAILY Triumeq (Hfmquuxb-Csapgrjcctfp-Zibblaoymf) 600-50-300 Mg Tab 1 Tab PO DAILY Hazardous agent; use appropriate precautions for handling & disposal. Review of Systems General / Constitutional: Positive: Fever Eyes: No: Visual changes HENT: No: Headaches Cardiovascular: No: Chest Pain or Discomfort Respiratory: No: Shortness of Breath Gastrointestinal: Positive: Nausea, Diarrhea, Abdominal Pain Genitourinary: No: Dysuria Musculoskeletal: No: Pain Skin: No Rash Neurologic: No: Weakness Psychiatric: No: Depression Endocrine: No: Polydipsia Hematologic/Lymphatic: No: Easy Bruising Physical Exam Narrative GENERAL: Mild distress SKIN: Focused skin assessment warm/dry. HEAD: Atraumatic. Normocephalic. EYES: Pupils equal and round. No scleral icterus. No injection or drainage. ENT: No nasal bleeding or discharge. Mucous membranes pink and moist. NECK: Trachea midline. No JVD. CARDIOVASCULAR: Regular rate and rhythm. No murmur appreciated. RESPIRATORY: No accessory muscle use. Clear to auscultation. Breath sounds equal bilaterally. GASTROINTESTINAL: Abdomen soft, mild diffuse abdominal pain, nondistended. Hepatic and splenic margins not palpable. MUSCULOSKELETAL: No obvious deformities. No clubbing. No cyanosis. No edema. NEUROLOGICAL: Awake and alert. No obvious cranial nerve deficits. Motor grossly within normal limits. Normal speech. PSYCHIATRIC: Appropriate mood and affect; insight and judgment normal. Data Data Last Documented VS Vital Signs Date Time Temp Pulse Resp B/P Pulse Ox O2 Delivery O2 Flow Rate FiO2 02/05/17 12:00 81 20 128/68 100 Room Air 02/05/17 09:30 97.7 Orders Basic Metabolic Panel (Bmp) (02/05/17 10:23) Complete Blood Count With Diff (02/05/17 10:23) Iv Access Insert/Monitor (02/05/17 10:23) Ecg Monitoring (02/05/17 10:23) Sodium Chlor 0.9% 1000 Ml Inj (Ns 1000 M (02/05/17 10:23) Sodium Chloride 0.9% Flush (Ns Flush) (02/05/17 10:30) Metronidazole 500 Mg Inj (Flagyl 500 Mg (02/05/17 10:45) Admit Order (Ed Use Only) (02/05/17 13:01) Labs Laboratory Tests Test 02/05/17 10:40 White Blood Count 6.8 TH/MM3 Red Blood Count 2.78 MIL/MM3 Hemoglobin 8.8 GM/DL Hematocrit 26.7 % Mean Corpuscular Volume 96.3 FL Mean Corpuscular Hemoglobin 31.7 PG Mean Corpuscular Hemoglobin 32.9 % Concent Red Cell Distribution Width 17.1 % Platelet Count 132 TH/MM3 Mean Platelet Volume 9.8 FL Neutrophils (%) (Auto) % Lymphocytes (%) (Auto) % Monocytes (%) (Auto) % Eosinophils (%) (Auto) % Basophils (%) (Auto) % Neutrophils # (Auto) TH/MM3 Lymphocytes # (Auto) TH/MM3 Monocytes # (Auto) TH/MM3 Eosinophils # (Auto) TH/MM3 Basophils # (Auto) TH/MM3 CBC Comment AUTO DIFF Differential Total Cells 100 Counted Neutrophils % (Manual) 9 % Band Neutrophils % 30 % Lymphocytes % 1 % Monocytes % 10 % Neutrophils # (Manual) 6.1 TH/MM3 Metamyelocytes 45 % Myelocytes 5 % Differential Comment FINAL DIFF MANUAL Toxic Granulation 1+ Dohle Bodies PRESENT Platelet Estimate LOW Platelet Morphology Comment NORMAL Ovalocytes 1+ Red Cell Morphology Comment Sodium Level 139 MEQ/L Potassium Level 4.3 MEQ/L Chloride Level 113 MEQ/L Carbon Dioxide Level 19.3 MEQ/L Anion Gap 7 MEQ/L Blood Urea Nitrogen 20 MG/DL Creatinine 1.27 MG/DL Estimat Glomerular Filtration 53 ML/MIN Rate Random Glucose 114 MG/DL Calcium Level 7.6 MG/DL MDM Medical Decision Making Medical Screen Exam Complete: Yes Emergency Medical Condition: Yes Interpretation(s) Vital Signs Date Time Temp Pulse Resp B/P Pulse Ox O2 Delivery O2 Flow Rate FiO2 02/05/17 11:07 78 19 123/69 98 Room Air 02/05/17 09:30 97.7 50 24 96/50 Room Air Differential Diagnosis Differential includes C. difficile colitis, viral infection, electrolyte abnormality,HIV Narrative Course 51 year old female (poor hiostrian at baseline) who presents to ER with c/o of abdominal pain with nausea and diarrhea. Patient has hx of noncompliance with her medications, recent CD4 count was 20 (November 2016). Patient also with history of GI bleed and ascites due to liver cirrhosis from alcohol abuse. Patient had an extensive workup yesterday including a CT of abdomen and pelvis as well as C. difficile cultures. C. difficile cultures were positive for C. difficile, patient was discharged home with a prescription for Flagyl. Patient has not started her antibiotics, reports increased pain and nausea and diarrhea her symptoms. Plan to give her dose of IV Flagyl, will give IV fluids, will obtain basic lab work. Previous records reviewed, patient was discharged on January 05, 2017 after being traeted for c. dif colitis as well as for IVF and AID due to HIV. Patient was discharged home on flagyl for 10 days - patient noncompliant with medications. Laboratory Tests Test 02/05/17 10:40 White Blood Count 6.8 TH/MM3 (4.0-11.0) Red Blood Count 2.78 MIL/MM3 (4.00-5.30) Hemoglobin 8.8 GM/DL (11.6-15.3) Hematocrit 26.7 % (35.0-46.0) Mean Corpuscular Volume 96.3 FL (80.0-100.0) Mean Corpuscular Hemoglobin 31.7 PG (27.0-34.0) Mean Corpuscular Hemoglobin 32.9 % Concent (32.0-36.0) Red Cell Distribution Width 17.1 % (11.6-17.2) Platelet Count 132 TH/MM3 (150-450) Mean Platelet Volume 9.8 FL (7.0-11.0) Neutrophils (%) (Auto) % (16.0-70.0) Lymphocytes (%) (Auto) % (9.0-44.0) Monocytes (%) (Auto) % (0.0-8.0) Eosinophils (%) (Auto) % (0.0-4.0) Basophils (%) (Auto) % (0.0-2.0) Neutrophils # (Auto) TH/MM3 (1.8-7.7) Lymphocytes # (Auto) TH/MM3 (1.0-4.8) Monocytes # (Auto) TH/MM3 (0-0.9) Eosinophils # (Auto) TH/MM3 (0-0.4) Basophils # (Auto) TH/MM3 (0-0.2) CBC Comment AUTO DIFF Differential Total Cells 100 Counted Neutrophils % (Manual) 9 % (16-70) Band Neutrophils % 30 % (0-6) Lymphocytes % 1 % (9-44) Monocytes % 10 % (0-8) Neutrophils # (Manual) 6.1 TH/MM3 (1.8-7.7) Metamyelocytes 45 % (0-1) Myelocytes 5 % (0-0) Differential Comment FINAL DIFF MANUAL Toxic Granulation 1+ (NORMAL) Dohle Bodies PRESENT (NONE SEEN) Platelet Estimate LOW (NORMAL) Platelet Morphology Comment NORMAL (NORMAL) Ovalocytes 1+ (NORMAL) Red Cell Morphology Comment (NORMAL) Sodium Level 139 MEQ/L (136-145) Potassium Level 4.3 MEQ/L (3.5-5.1) Chloride Level 113 MEQ/L (98-107) Carbon Dioxide Level 19.3 MEQ/L (21.0-32.0) Anion Gap 7 MEQ/L (5-15) Blood Urea Nitrogen 20 MG/DL (7-18) Creatinine 1.27 MG/DL (0.50-1.00) Estimat Glomerular Filtration 53 ML/MIN (>89) Rate Random Glucose 114 MG/DL (74-106) Calcium Level 7.6 MG/DL (8.5-10.1) patient noncompliant with her meds, not feeling any better, will require observation case reviewed with dr. carroll who accepts pt to service Diagnosis Primary Impression: Abdominal pain Additional Impression: C. difficile colitis Admitting Information Admitting Physician Requests: Observation Ct Fuchs DO Feb 05, 2017 11:22
[2017-02-05 11:34] LABS: BICARBONATE 19.3 MEQ/L (21.0-32.0); POTASSIUM 4.3 MEQ/L (3.5-5.1)
[2017-02-05 11:49] LABS: BANDS 30 % (0-6); METAMYELOCYTES 45 % (0-1); MYELOCYTES 5 % (0-0); NEUTROPHIL # MANUAL DIFF 6.1 TH/MM3 (1.8-7.7); POLYS (SEG NEUTROPHILS) 9 % (16-70); WBC DIFF SAMPLE 100
[2017-02-05 11:50] LABS: DOHLE BODIES PRESENT (NONE SEEN); TOXIC GRANULATION 1+ (NORMAL)
[2017-02-05 11:51] LABS: PLATELET ESTIMATE SMEAR LOW (NORMAL); PLATELET MORPHOLOGY NORMAL (NORMAL)
[2017-02-05 11:52] LABS: OVALOCYTES 1+ (NORMAL); SCAN/DIFF FINAL DIFF MANUAL
[2017-02-05] MEDS ORDERED: ONDANSETRON HCL 4 MG/2 ML VIAL IVP PRN (14:00)
[2017-02-05] MEDS ORDERED: ACETAMINOPHEN 325 MG TAB PO PRN (14:00)
--- NOTE | 2017-02-05 14:12 | HHI.HP ---
[facility] Service [place] [facility] Primary Care Physician Jeremiah Garcia MD Admission Diagnosis C. diff colitis Diagnoses: Chief Complaint: Abdominal pain and diarrhea Travel History International Travel<30 Days: No Contact w/Intl Traveler <30 Da: No Traveled to Known Affected Are: No History of Present Illness 51-year-old female with a past medical history of HIV/AIDS, C. difficile, cirrhosis, GI bleed, CVA who presents with abdominal pain and diarrhea. The patient complains of generalized abdominal discomfort and mid to lower back pain for the past 2 weeks. She states she is been having intractable diarrhea, 5 episodes today. She denies fevers, reports subjective chills. She had a recent hospitalization for C. difficile. She was treated with a course of Flagyl which she states she took, and her diarrhea initially improved, but then got worse again over the past 2 weeks. She presented to the ED yesterday and had a mostly unremarkable laboratory workup and abdominal CT, and was discharged with antibiotics. She did fill her antibiotics, but is not been able to start taking them yet. She also complains of pain whenever she takes a deep breath and lightheadedness. She denies any nausea or vomiting, but has had decreased appetite. The patient complains of cramping abdominal pain along with frequent bowel movements. She believes she has had C. difficile twice before in the past. She also mentions that she has pain when she takes a deep breath. She says she follows with an infectious disease doctor. She is not sure what HIV medications she is supposed to be on. Review of Systems Except as stated in HPI: all other systems reviewed are Neg Past Family Social History Past Medical History HIV/AIDS History of recent C. difficile infection Cirrhosis with ascites History of GI bleeding and gastritis History of stroke 2 Past Surgical History Reported Medications Reported Azithromycin 600 Mg Tab 1,200 Mg PO Q7D 30 Days Mepron Liq (Atovaquone) 750 Mg/5 Ml Susp 1,500 Mg PO DAILY Take with food. Fluconazole 100 Mg Tab 100 Mg PO DAILY 21 Days Prezcobix (Darunavir-Cobicistat) 800-150 Mg Tab 1 Tab PO DAILY Triumeq (Lvujietm-Amnkggibemml-Jinzjamktg) 600-50-300 Mg Tab 1 Tab PO DAILY Hazardous agent; use appropriate precautions for handling & disposal. Allergies: Coded Allergies: No Known Allergies (Verified , 02/05/17) Active Ordered Medications Current Medications Medications (Trade) Dose Ordered Sig/Sue Route Start Time Stop Time Status Last Admin Sodium Chloride 2 ml 2 ml UNSCH PRN IV FLUSH 02/05/17 10:30 02/05/17 11:08 (NS 1000 ml Inj) 1,000 ml @ 100 mls/hr Q10H IV 02/05/17 13:51 UNV (NS Flush) 2 ml BID IV FLUSH 02/05/17 21:00 UNV (Tylenol) 650 mg Q4H PRN PO 02/05/17 14:00 UNV (Zofran Inj) 4 mg Q6H PRN IVP 02/05/17 14:00 UNV (Flagyl) 500 mg Q8HR PO 02/05/17 14:00 UNV Family History mother with cirrhosis of the liver Social History Patient denies any alcohol, tobacco, or drug use Physical Exam Vital Signs Vital Signs Date Time Temp Pulse Resp B/P Pulse Ox O2 Delivery O2 Flow Rate FiO2 02/05/17 13:00 88 15 116/63 100 Room Air 02/05/17 12:30 84 19 118/67 100 Room Air 02/05/17 12:00 81 20 128/68 100 Room Air 02/05/17 11:07 78 19 123/69 98 Room Air 02/05/17 09:30 97.7 50 24 96/50 Room Air Physical Exam GENERAL: Well-developed fair-nourished thin, cachectic-appearing patient. In no acute distress. SKIN: Warm and dry. No lesions noted. HEENT: Normocephalic. Pupils equal and round. Mucous membranes pink and moist. CARDIOVASCULAR: Regular rate and rhythm. No murmur appreciated. RESPIRATORY: No accessory muscle use. Clear to auscultation. Breath sounds equal bilaterally. GASTROINTESTINAL: Abdomen soft, nondistended. Generalized TTP to light palpation. Bowel sounds x4. MUSCULOSKELETAL: No obvious deformities. No clubbing or cyanosis. No edema. NEUROLOGICAL: Awake and alert. No focal neurological deficits. Moves upper and lower extremities spontaneously. Normal speech. PSYCHIATRIC: Appropriate mood and affect; insight and judgment fair to normal. Laboratory Laboratory Tests Test 02/05/17 10:40 White Blood Count 6.8 Red Blood Count 2.78 Hemoglobin 8.8 Hematocrit 26.7 Mean Corpuscular Volume 96.3 Mean Corpuscular Hemoglobin 31.7 Mean Corpuscular Hemoglobin 32.9 Concent Red Cell Distribution Width 17.1 Platelet Count 132 Mean Platelet Volume 9.8 Neutrophils (%) (Auto) Lymphocytes (%) (Auto) Monocytes (%) (Auto) Eosinophils (%) (Auto) Basophils (%) (Auto) Neutrophils # (Auto) Lymphocytes # (Auto) Monocytes # (Auto) Eosinophils # (Auto) Basophils # (Auto) CBC Comment AUTO DIFF Differential Total Cells 100 Counted Neutrophils % (Manual) 9 Band Neutrophils % 30 Lymphocytes % 1 Monocytes % 10 Neutrophils # (Manual) 6.1 Metamyelocytes 45 Myelocytes 5 Differential Comment FINAL DIFF MANUAL Toxic Granulation 1+ Dohle Bodies PRESENT Platelet Estimate LOW Platelet Morphology Comment NORMAL Ovalocytes 1+ Red Cell Morphology Comment Sodium Level 139 Potassium Level 4.3 Chloride Level 113 Carbon Dioxide Level 19.3 Anion Gap 7 Blood Urea Nitrogen 20 Creatinine 1.27 Estimat Glomerular Filtration 53 Rate Random Glucose 114 Calcium Level 7.6 Result Diagram: 02/05/17 1040 02/05/17 1040 Assessment and Plan Assessment and Plan 51-year-old female with a past medical history of HIV/AIDS, C. difficile, cirrhosis, GI bleed, CVA who presents with abdominal pain and diarrhea Abdominal pain/recurrent C. difficile diarrhea: Reviewed: Abdomen and pelvis CT 02/04 showed significant reduction in ascites since prior exam with slight ascites remaining; cirrhosis and signs of portal venous hypertension. Afebrile with no leukocytosis. Acute dehydration on labs. C. difficile assay remains positive for resistant strain. -Resume Flagyl and consult ID -Start Lactinex -Supportive care -Continue Protonix Per the patient this is the third bout with C. difficile. Continue antibiotics for now. Infectious disease consult is pending. IV fluids. Acute kidney injury: Creatinine 1.27, previously 0.77 on 02/04/17. -IVF -Follow up BMP Likely exacerbated by diarrhea. Continue IV fluids and monitor. HIV/AIDS: Most recent CD4 count from 11/15/16 less than 20. -Resume home HAART medications. -ID consulted Continue prophylaxis and follow with infectious disease. Chest pain with breathing: Pleural effusion seen on review of previous chest x- rays. -Check chest x-ray PA and lateral -Supplemental O2 as needed -Depending on results of chest x-ray, consider d-dimer/pulmonary angiogram Check a d-dimer and obtain CTA if necessary. Severe protein calorie malnutrition: BMI 18. Albumin 1.5, Pre-albumin 4 on recent labs. -Liberalize diet, encourage oral intake, and add ensure to meals DVT prophylaxis: SCDs Discussed Condition With Patient with fianc at bedside, ED staff, Dr. Argueta Attending Statement The exam, history, and the medical decision-making described in the above note were completed with the assistance of the mid-level provider. I reviewed and agree with the findings presented. I attest that I had a [id number] encounter with the patient on the same day, and personally performed and documented my assessment and findings in the medical record. Gutierrez Maurice Feb 05, 2017 14:12 Rad Argueta DO Feb 06, 2017 08:30
[2017-02-05] MEDS: SODIUM CHLOR 0.9% 1000 ML INJ 1,000 ML IV SCH (14:47)
--- NOTE | 2017-02-05 15:56 | RADRPT ---
EXAM DATE/TIME: 02/05/2017 15:40 [facility] COMPARISON: CHEST PA & LAT, November 27, 2016, 8:31. INDICATIONS : Chest pain. MEDICAL HISTORY : Cirrhosis. HIV. Seizures. Cerebrovascular accident. Liver disease. SURGICAL HISTORY : None. ENCOUNTER: Initial ACUITY: 1 week PAIN SCORE: 3/10 LOCATION: Bilateral chest FINDINGS: The lungs are clear without infiltrate, nodule, or mass. There is no appreciable pleural effusion fo r technique. Heart and mediastinum are unremarkable. CONCLUSION: No acute cardiopulmonary disease. Amy Vincent MD on February 05, 2017 at 15:54 Board Certified Radiologist. This report was verified electronically.
[2017-02-05] MEDS: LACTOBACILLUS ACIDOPHILUS TAB PO SCH (16:24)
[2017-02-05] MEDS: traMADol HCL 50 MG TAB PO PRN ×2 (16:25→23:07)
[2017-02-05] MEDS: metroNIDAZOLE 500 MG TAB PO SCH (23:06)
[2017-02-05] MEDS: SODIUM CHLORIDE 0.9% FLUSH 10 ML FLUSH IV FLUSH SCH (23:08)
[2017-02-06] VITALS (10 sets, daily range): BP systolic 98–161; BP diastolic 54–84; PULSE 66–75; RESP 17–18; TEMP 97.4–98.2; O2SAT 95–100
[2017-02-06] MEDS: SODIUM CHLOR 0.9% 1000 ML INJ 1,000 ML IV SCH ×3 (00:55→21:45)
[2017-02-06] MEDS: metroNIDAZOLE 500 MG TAB PO SCH ×2 (04:45→13:25)
[2017-02-06 07:27] LABS: HEMATOCRIT 22.6 % (35.0-46.0); MEAN CELL VOLUME 93.5 FL (80.0-100.0); MEAN CORPUSCULAR HEMOGLOBIN 31.9 PG (27.0-34.0); MEAN CORPUSCULAR HGB CONC 34.1 % (32.0-36.0); PLATELET COUNT 93 TH/MM3 (150-450); RED BLOOD COUNT 2.41 MIL/MM3 (4.00-5.30); RED CELL DISTRIBUTION WIDTH 16.6 % (11.6-17.2); WHITE BLOOD COUNT 7.1 TH/MM3 (4.0-11.0)
[2017-02-06 07:56] LABS: BICARBONATE 18.1 MEQ/L (21.0-32.0); POTASSIUM 3.6 MEQ/L (3.5-5.1); TOTAL BILIRUBIN ADULT 0.4 MG/DL (0.2-1.0)
[2017-02-06 08:01] LABS: HEMO FLAGS AUTO DIFF
[2017-02-06 08:07] LABS: CALCIUM-PROTEIN CORRECTED 7.3 MG/DL (8.5-10.1)
[2017-02-06 08:08] LABS: BETA HCG QUANT LESS THAN 1 MIU/ML (0-5)
[2017-02-06 08:09] LABS: BANDS 17 % (0-6); EOSINOPHILS 2 % (0-4); MYELOCYTES 1 % (0-0); NEUTROPHIL # MANUAL DIFF 4.8 TH/MM3 (1.8-7.7); PLASMA CELLS 1 % (0-0); PLATELET ESTIMATE SMEAR LOW (NORMAL); PLATELET MORPHOLOGY NORMAL (NORMAL); POLYS (SEG NEUTROPHILS) 49 % (16-70); SCAN/DIFF FINAL DIFF MANUAL; TARGET CELLS 1+ (NORMAL); WBC DIFF SAMPLE 100
[2017-02-06] MEDS: LACTOBACILLUS ACIDOPHILUS TAB PO SCH ×3 (08:21→18:30)
[2017-02-06] MEDS: SODIUM CHLORIDE 0.9% FLUSH 10 ML FLUSH IV FLUSH SCH ×2 (08:21→21:45)
[2017-02-06] MEDS ORDERED: TRIUMEQ PO SCH (09:00)
[2017-02-06] MEDS ORDERED: PREZCOBIX PO SCH (09:00)
[2017-02-06] MEDS ORDERED: CALCIUM GLUCONATE INJ 1 GM in SODIUM CHLORIDE 0.9% INJ 100 ML IV ONE (09:00)
--- NOTE | 2017-02-06 09:43 | HHI.PR ---
Subjective Remarks Follow up for C.difficile colitis, MADELINE, chest pain. The patient reports 3 episodes of nonbloody diarrhea overnight. She reports continue diffuse abdominal pain with radiation up into the chest. She reports dyspnea on exertion , even with ambulating a few steps in her room. Denies any shortness of breath while at rest. Denies fevers/chills. She is tolerating oral intake. Objective Vitals Vital Signs Date Time Temp Pulse Resp B/P Pulse Ox O2 Delivery O2 Flow Rate FiO2 02/06/17 08:37 97.8 69 18 149/72 96 02/06/17 03:52 98.0 72 18 117/72 02/06/17 00:45 115/68 02/06/17 00:11 98.0 75 18 98/54 95 02/05/17 19:46 97.9 62 18 114/70 96 02/05/17 17:48 98.2 75 18 113/60 96 02/05/17 17:25 18 02/05/17 15:00 82 20 106/56 100 Room Air 02/05/17 14:58 95 21 02/05/17 14:00 84 22 101/58 100 Room Air 02/05/17 13:00 88 15 116/63 100 Room Air 02/05/17 12:30 84 19 118/67 100 Room Air 02/05/17 12:00 81 20 128/68 100 Room Air 02/05/17 11:07 78 19 123/69 98 Room Air I/O 02/05/17 02/05/17 02/05/17 02/06/17 02/06/17 02/06/17 07:00 15:00 23:00 07:00 15:00 23:00 Intake Total 1000 ml Balance 1000 ml Intake IV Total 1000 ml # Voids 1 # Bowel Movements 1 2 6 Result Diagram: 02/06/17 0652 02/06/17 0652 Imaging Last Impressions Chest X-Ray 02/05/17 0000 Signed Impressions: Service Date/Time: Sunday, February 05, 2017 15:40 - CONCLUSION: No acute cardiopulmonary disease. Amy Vincent MD Objective Remarks GENERAL: Thin cachectic appearing middle aged female patient in [facility]. SKIN: Warm and dry. No rash. HEENT: Normocephalic. Atraumatic. Bitemporal wasting noted. Mucous membranes pink and moist. NECK: Supple. Trachea midline. CARDIOVASCULAR: Regular rate and rhythm. S1, S2 noted. No murmur appreciated. RESPIRATORY: No accessory muscle use. Clear to auscultation. Breath sounds equal bilaterally. GASTROINTESTINAL: Abdomen soft, nondistended, mild generalized TTP. Normoactive bowel sounds x4. MUSCULOSKELETAL: No obvious deformities. Extremities without clubbing, cyanosis , or edema. NEUROLOGICAL: Awake and alert. No obvious cranial nerve deficits. Motor grossly within normal limits. Normal speech. PSYCHIATRIC: Appropriate mood and affect; insight and judgment normal. Medications and IVs Current Medications Medications (Trade) Dose Ordered Sig/Sue Route Start Time Stop Time Status Last Admin Sodium Chloride 2 ml 2 ml UNSCH PRN IV FLUSH 02/05/17 10:30 02/05/17 11:08 (NS 1000 ml Inj) 1,000 ml @ 100 mls/hr Q10H IV 02/05/17 13:51 02/06/17 08:22 (NS Flush) 2 ml BID IV FLUSH 02/05/17 21:00 02/06/17 08:21 (Tylenol) 650 mg Q4H PRN PO 02/05/17 14:00 (Zofran Inj) 4 mg Q6H PRN IVP 02/05/17 14:00 (Flagyl) 500 mg Q8H PO 02/05/17 21:00 02/06/17 04:45 (Ultram) 50 mg Q6H PRN PO 02/05/17 14:00 02/05/17 23:07 Patient Own Medication PT OWN MED: TRIUME... DAILY PO 02/06/17 09:00 Hold Patient Own Medication PT OWN MED: PREZCO... DAILY PO 02/06/17 09:00 Hold Lactobacillus Acidophilus 1 tab 1 tab TID PO 02/05/17 18:00 02/06/17 08:21 (Calcium Gluconate Inj/NS Inj) 110 ml @ 110 mls/hr ONCE ONCE IV 02/06/17 09:00 02/06/17 09:59 A/P Assessment and Plan 51-year-old female with a past medical history of HIV/AIDS, C. difficile, cirrhosis, GI bleed, CVA who presents with abdominal pain and diarrhea Abdominal Pain with Recurrent C. Difficile Diarrhea: 3rd episode of C.diff. Reviewed- Abdomen and pelvis CT 02/04 showed significant reduction in ascites since prior exam with slight ascites remaining; cirrhosis and signs of portal venous hypertension. Afebrile with no leukocytosis. Acute dehydration on labs. C. difficile assay 02/04 remains positive for resistant strain. -Resume Flagyl 500mg q8h for now, consider Vanco however will defer to ID -Consulted Infectious Disease for further recommendations -Start Lactinex -Supportive care with IVF -Continue Protonix Acute kidney injury: Creatinine 1.27, previously 0.77 on 02/04/17. Suspect secondary to diarrhea. -Give IVF -Repeat BMP with improvement, Cr 0.77. -Monitor HIV/AIDS: Most recent CD4 count from 11/15/16 less than 20. -Resume home HAART medications. -ID consulted Chest pain with breathing, Dyspnea on Exertion: Pleural effusion seen on review of previous chest x-rays. -Repeat CXR PA/lateral with no acute findings -Supplemental O2 as needed -D-dimer elevated, will check CT-PA to rule out embolism Severe protein calorie malnutrition: BMI 18. +Cachectic on exam. Albumin 1.0, Pre-albumin 4 on recent labs. -Liberalize diet, encourage oral intake, and added ensure to meals Hypocalcemia: Calcium 7.3. Suspect secondary to poor oral intake. -give IV Calcium gluconate x1 -repeat labs in am Normocytic Anemia: no reported bleeding. -Hgb dropped from 8.8 to 7.7 overnight, suspect hemodilutional secondary to IVF -monitor CBC -check iron panel/ferritin -transfuse as needed DVT prophylaxis: SCDs Discharge Planning Discharge pending ID consultation, CT-PA, and further clinical improvement. Marilee Desai PA-C Feb 06, 2017 9:43 am
[2017-02-06] MEDS ORDERED: IOHEXOL 350 MG/ML 10 ML VIAL (for RAD DIAG) IV ONE (10:24)
[2017-02-06] MEDS: traMADol HCL 50 MG TAB PO PRN ×2 (10:44→18:33)
--- NOTE | 2017-02-06 10:54 | RADRPT ---
EXAM DATE/TIME: 02/06/2017 10:07 [facility] COMPARISON: CT PULMONARY ANGIOGRAM, November 14, 2016, 17:44. INDICATIONS : Shortness of breath and chest pain today. IV CONTRAST: 75 cc Omnipaque 350 (iohexol) IV RADIATION DOSE: 29.00 CTDIvol (mGy) MEDICAL HISTORY : Cirrhosis. HIV. SURGICAL HISTORY : section. ENCOUNTER: Initial ACUITY: 1 day PAIN SCALE: 3/10 LOCATION: substernal chest TECHNIQUE: Volumetric scanning of the chest was performed using a pulmonary embolism protocol MIP images were re constructed. Using automated exposure control and adjustment of the mA and/or kV according to patien t size, radiation dose was kept as low as reasonably achievable to obtain optimal diagnostic quality images. DICOM format image data is available electronically for review and comparison. Follow-up recommendations for incidentally detected pulmonary nodules are based at a minimum on nodul e size and patient risk factors according to Fleischner Society Guidelines. FINDINGS: PULMONARY ARTERIES: No filling defects are seen in the pulmonary arteries through the segmental level. LUNGS: Interstitial prominence with patchy groundglass opacity and subsegmental airspace disease in the base s are identified. PLEURAE: Small bilateral pleural effusions are noted. MEDIASTINUM: Heart is moderately enlarged. MUSCULOSKELETAL: Within normal limits for patient age. MISCELLANEOUS: The visualized upper abdominal organs demonstrate no acute abnormality. CONCLUSION: 1. No evidence of pulmonary embolism. 2. Cardiomegaly with mild pulmonary congestion and small bilateral effusions. 3. Subsegmental airspace disease in both lung bases. Yaya Guzman MD on February 06, 2017 at 10:50 Board Certified Radiologist. This report was verified electronically.
--- NOTE | 2017-02-06 15:07 | PD.ID.CON ---
History of Present Illness Service ID Consult Requested By Dr Argueta Reason for Consult Recurerent C.diff Primary Care Physician Jeremiah Garcia MD Diagnoses: History of Present Illness Pt is a very poor historian 51 yo female with advanced HiV/AIDS states she is on HAART, followed by Dr Teague in outreach [facility] not knowing her CD4 or viral load CD4 in October she presetns with recutrrent diarrhea, third time (?) C.diff 027 + co severe abdominal pain and multiple BMs (9 /day) despite treatment She saw blood in the stool Sates she is loosing weight, co fever, chills, night sweats Review of Systems Except as stated in HPI: all other systems reviewed are Neg Past Family Social History Allergies: Coded Allergies: No Known Allergies (Verified , 02/05/17) Past Medical History HIV/AIDS History of recent C. difficile infection Cirrhosis with ascites History of GI bleeding and gastritis History of stroke 2 Past Surgical History Active Ordered Medications Medications where reviewed in EMR Antibiotics Include: flagyl Family History mother with cirrhosis of the liver Social History Patient denies any alcohol, tobacco, or drug use Used to drink ETOH Physical Exam Vital Signs Vital Signs Date Time Temp Pulse Resp B/P Pulse Ox O2 Delivery O2 Flow Rate FiO2 02/06/17 12:09 97.8 68 18 148/62 96 02/06/17 11:44 16 02/06/17 08:37 97.8 69 18 149/72 96 02/06/17 03:52 98.0 72 18 117/72 02/06/17 00:45 115/68 02/06/17 00:11 98.0 75 18 98/54 95 02/05/17 19:46 97.9 62 18 114/70 96 02/05/17 17:48 98.2 75 18 113/60 96 02/05/17 15:00 82 20 106/56 100 Room Air 02/05/17 14:58 95 21 Physical Exam GENERAL: This is a thin malnourished female patient, in no apparent distress. 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 Cool and dry. HEAD: Atraumatic. Normocephalic. EYES: Pupils equal and round and reactive. Extraocular motions intact. No scleral icterus. No injection or drainage. Fundi not examined. ENT: Hearing grossly normal. Nose without bleeding or purulent drainage. Oral mucosae without visible erythema, exudates, masses, or lesions. Edentulous NECK: Trachea midline. Supple, nontender. CARDIOVASCULAR: Regular rate and rhythm without murmurs, gallops, or rubs. No JVD. Peripheral pulses symmetric. RESPIRATORY/CHEST: Symmetric, unlabored respirations. Clear to auscultation. Breath sounds equal bilaterally. No wheezes, rales, or rhonchi. GASTROINTESTINAL: Abdomen soft, diffusely tender to palpation, moderately distended. No hepato-splenomegaly, or palpable masses. No guarding. Bowel sounds present. GENITOURINARY: Without palpable bladder distension MUSCULOSKELETAL: Extremities without clubbing, cyanosis, or edema. No joint tenderness or effusion noted. No calf tenderness. No mottling or clubbing. LYMPHATICS: No palpable cervical or supraclavicular adenopathy. NEUROLOGICAL: Awake and alert. Motor and sensory grossly within normal limits. Follows commands. Clear speech Moves all extremities. PSYCHIATRIC: No obvious anxiety/depression. no apparent hallucinations or other psychotic thought process. Laboratory Laboratory Tests Test 02/05/17 02/06/17 21:55 06:52 D-Dimer Quantitative (PE/DVT) 1.73 White Blood Count 7.1 Red Blood Count 2.41 Hemoglobin 7.7 Hematocrit 22.6 Mean Corpuscular Volume 93.5 Mean Corpuscular Hemoglobin 31.9 Mean Corpuscular Hemoglobin 34.1 Concent Red Cell Distribution Width 16.6 Platelet Count 93 Mean Platelet Volume 10.5 Neutrophils (%) (Auto) Lymphocytes (%) (Auto) Monocytes (%) (Auto) Eosinophils (%) (Auto) Basophils (%) (Auto) Neutrophils # (Auto) Lymphocytes # (Auto) Monocytes # (Auto) Eosinophils # (Auto) Basophils # (Auto) CBC Comment AUTO DIFF Differential Total Cells 100 Counted Neutrophils % (Manual) 49 Band Neutrophils % 17 Lymphocytes % 16 Monocytes % 14 Eosinophils % 2 Neutrophils # (Manual) 4.8 Myelocytes 1 Differential Comment FINAL DIFF MANUAL Plasma Cells 1 Platelet Estimate LOW Platelet Morphology Comment NORMAL Target Cells 1+ Hematology Comments Sodium Level 138 Potassium Level 3.6 Chloride Level 115 Carbon Dioxide Level 18.1 Anion Gap 5 Blood Urea Nitrogen 15 Creatinine 0.77 Estimat Glomerular Filtration 95 Rate Random Glucose 72 Calcium Level 7.3 Protein Corrected Calcium 7.3 Total Bilirubin 0.4 Aspartate Amino Transf 37 (AST/SGOT) Alanine Aminotransferase 13 (ALT/SGPT) Alkaline Phosphatase 107 Total Protein 7.2 Albumin 1.0 Human Chorionic Gonadotropin, LESS THAN 1 Quant Result Diagram: 02/06/17 0652 02/06/17 [address] Angiography 02/06/17 0000 Signed Impressions: Service Date/Time: Monday, February 06, 2017 10:07 - CONCLUSION: 1. No evidence of pulmonary embolism. 2. Cardiomegaly with mild pulmonary congestion and small bilateral effusions. 3. Subsegmental airspace disease in both lung bases. Yaya Guzman MD Chest X-Ray 02/05/17 0000 Signed Impressions: Service Date/Time: Sunday, February 05, 2017 15:40 - CONCLUSION: No acute cardiopulmonary disease. Amy Vincent MD Assessment and Plan Assessment and Plan HIV AIDS with diarrhea - staes compliance C.diff, third episode - confirmed - hypervirulent strain 027 ETOH induced liver cirrhosis dc flagyl start vancomycin will Rx x 6 week with taper work up for co-infections Discussed Condition With Anaid Ramirez MD Feb 06, 2017 15:07
[2017-02-06 17:48] LABS: C. DIFF EPI 027 PRESUMPTIVE NEGATIVE (NEGATIVE); C. DIFF TOXIN PCR NEGATIVE (NEGATIVE)
[2017-02-06] MEDS: VANCOMYCIN 500 MG VIAL (FOR ORAL USE ONLY) PO SCH (18:30)
[2017-02-06] MEDS ORDERED: ENALAPRILAT 1.25 MG/ML VIAL IV PUSH PRN (20:00)
[2017-02-06] MEDS: RESP: ALBUTEROL 2.5 MG/IPRATROPIUM 0.5 MG NEB (SCH) NEB (21:41)
[2017-02-07] VITALS (12 sets, daily range): BP systolic 120–153; BP diastolic 65–77; PULSE 68–98; RESP 17–21; TEMP 96.9–99; O2SAT 74–100
[2017-02-07] MEDS: VANCOMYCIN 500 MG VIAL (FOR ORAL USE ONLY) PO SCH ×4 (00:01→18:20)
[2017-02-07] MEDS: SODIUM CHLOR 0.9% 1000 ML INJ 1,000 ML IV SCH ×2 (05:48→15:09)
[2017-02-07] MEDS: RESP: ALBUTEROL 2.5 MG/IPRATROPIUM 0.5 MG NEB (SCH) NEB ×4 (06:09→21:08)
--- NOTE | 2017-02-07 08:11 | HHI.PR ---
Subjective Remarks Follow up for C.difficile colitis, MADELINE, chest pain. The patient reports again approximately 3 episodes of diarrhea overnight. Still with diffuse abdominal pain but denies any chest pains today. She has been able to eat some of her meals. Denies fevers/chills. Has some nausea but no vomiting. She states she just feels weak and tired. She does not feel ready for discharge. Objective Vitals Vital Signs Date Time Temp Pulse Resp B/P Pulse Ox O2 Delivery O2 Flow Rate FiO2 02/07/17 08:00 98 Nasal Cannula 2.50 02/07/17 04:49 68 02/07/17 04:21 97.9 78 17 126/72 100 02/07/17 00:16 73 02/07/17 00:10 96.9 74 18 120/74 100 02/06/17 21:43 96 Nasal Cannula 3.00 02/06/17 20:51 97.4 67 17 132/58 99 02/06/17 20:00 68 02/06/17 19:44 98.2 66 18 161/84 100 02/06/17 15:17 98.1 74 17 133/74 100 02/06/17 12:09 97.8 68 18 148/62 96 02/06/17 11:44 16 02/06/17 08:37 97.8 69 18 149/72 96 I/O 02/06/17 02/06/17 02/06/17 02/07/17 02/07/17 02/07/17 06:59 14:59 22:59 06:59 14:59 22:59 Intake Total 520 ml Output Total 6 ml Balance 520 ml -6 ml Intake Oral 520 ml Output Stool Total 6 ml # Voids 4 3 6 # Bowel Movements 6 3 1 Result Diagram: 02/06/17 0652 02/06/17 [address] Angiography 02/06/17 0000 Signed Impressions: Service Date/Time: Monday, February 06, 2017 10:07 - CONCLUSION: 1. No evidence of pulmonary embolism. 2. Cardiomegaly with mild pulmonary congestion and small bilateral effusions. 3. Subsegmental airspace disease in both lung bases. Yaya Guzman MD Chest X-Ray 02/05/17 0000 Signed Impressions: Service Date/Time: Sunday, February 05, 2017 15:40 - CONCLUSION: No acute cardiopulmonary disease. Amy Vincent MD Objective Remarks GENERAL: Thin cachectic appearing middle aged female patient in NAD. SKIN: Warm and dry. No rash. HEENT: Normocephalic. Atraumatic. Bitemporal wasting noted. Mucous membranes pink and moist. NECK: Supple. Trachea midline. CARDIOVASCULAR: Regular rate and rhythm. S1, S2 noted. No murmur appreciated. RESPIRATORY: No accessory muscle use. Clear to auscultation. Breath sounds equal bilaterally. GASTROINTESTINAL: Abdomen soft, nondistended, mild generalized TTP. Normoactive bowel sounds x4. MUSCULOSKELETAL: No obvious deformities. Extremities without clubbing, cyanosis , or edema. NEUROLOGICAL: Awake and alert. No obvious cranial nerve deficits. Motor grossly within normal limits. Normal speech. PSYCHIATRIC: Appropriate mood and affect; insight and judgment normal. Medications and IVs Current Medications Medications (Trade) Dose Ordered Sig/Sue Route Start Time Stop Time Status Last Admin Sodium Chloride 2 ml 2 ml UNSCH PRN IV FLUSH 02/05/17 10:30 02/05/17 11:08 (NS 1000 ml Inj) 1,000 ml @ 100 mls/hr Q10H IV 02/05/17 13:51 02/07/17 05:48 (NS Flush) 2 ml BID IV FLUSH 02/05/17 21:00 02/06/17 21:45 (Tylenol) 650 mg Q4H PRN PO 02/05/17 14:00 (Zofran Inj) 4 mg Q6H PRN IVP 02/05/17 14:00 (Ultram) 50 mg Q6H PRN PO 02/05/17 14:00 02/06/17 18:33 Patient Own Medication PT OWN MED: TRIUME... DAILY PO 02/06/17 09:00 Hold Patient Own Medication PT OWN MED: PREZCO... DAILY PO 02/06/17 09:00 Hold (Lactinex) 1 tab TID PO 02/05/17 18:00 02/06/17 18:30 (VANCOMYCIN for oral use only) 500 mg Q6HR PO 02/06/17 18:00 02/07/17 05:50 (Vasotec Inj) 1.25 mg Q6H PRN IV PUSH 02/06/17 20:00 A/P Assessment and Plan 51-year-old female with a past medical history of HIV/AIDS, C. difficile, cirrhosis, GI bleed, CVA who presents with abdominal pain and diarrhea Abdominal Pain with Recurrent C. Difficile Diarrhea: 3rd episode of C.diff. Reviewed- Abdomen and pelvis CT 02/04 showed significant reduction in ascites since prior exam with slight ascites remaining; cirrhosis and signs of portal venous hypertension. Afebrile with no leukocytosis. Acute dehydration on labs. C. difficile assay 02/04 remains positive for resistant strain although repeat 02/06 negative. -Consulted ID -Changed flagyl to Vanco 500mg po q6h [id number] with taper -Start Lactinex -Supportive care with IVF -Continue Protonix -Symptoms slowly improving, less abdominal pain, diarrhea x3 overnight Acute kidney injury: Creatinine 1.27, previously 0.77 on 02/04/17. Suspect secondary to diarrhea. -Give IVF -Repeat BMP with improvement, Cr 0.77. -Monitor HIV/AIDS: Most recent CD4 count from 11/15/16 less than 20. -Resume home HAART medications, follows with Dr. Teague with outreach clinic -ID consulted Chest pain with breathing, Dyspnea on Exertion: Pleural effusion seen on review of previous chest x-rays. -Repeat CXR PA/lateral with no acute findings -Supplemental O2 as needed -D-dimer elevated, CT-PA negative for PE, does show mild pulmonary congestion with small bilateral effusions Severe protein calorie malnutrition: BMI 18. +Cachectic on exam. Albumin 1.0, Pre-albumin 4 on recent labs. -Liberalize diet, encourage oral intake, and added ensure to meals Hypocalcemia: Calcium 7.3. Suspect secondary to poor oral intake. -give IV Calcium gluconate x1 -repeat labs today pending Normocytic Anemia: no reported bleeding. -Hgb dropped from 8.8 to 7.7, suspect hemodilutional secondary to IVF -monitor CBC -check iron panel/ferritin, pending -transfuse as needed DVT prophylaxis: SCDs Discharge Planning Discharge pending further clinical improvement. Hopefully discharge tomorrow if diarrhea continues to improve and patient tolerating oral intake. Marilee Desai PA-C Feb 07, 2017 8:11 am
[2017-02-07 08:28] LABS: AUTOMATED NEUTROPHIL # 3.1 TH/MM3 (1.8-7.7); BASOPHIL % 0.3 % (0.0-2.0); EOSINOPHIL # 0.1 TH/MM3 (0-0.4); EOSINOPHIL % 1.5 % (0.0-4.0); HEMO FLAGS AUTO DIFF; LYMPH % 26.8 % (9.0-44.0); LYMPHOCYTE # 1.4 TH/MM3 (1.0-4.8); MEAN CELL VOLUME 94.9 FL (80.0-100.0); MEAN CORPUSCULAR HEMOGLOBIN 31.7 PG (27.0-34.0); MEAN CORPUSCULAR HGB CONC 33.4 % (32.0-36.0); MONO % 11.7 % (0.0-8.0); NEUT % 59.7 % (16.0-70.0); PLATELET COUNT 108 TH/MM3 (150-450); RED BLOOD COUNT 2.42 MIL/MM3 (4.00-5.30); WHITE BLOOD COUNT 5.2 TH/MM3 (4.0-11.0)
[2017-02-07 08:41] LABS: ANION GAP 7 MEQ/L (5-15); BLOOD UREA NITROGEN 9 MG/DL (7-18); CHLORIDE 115 MEQ/L (98-107); GLOMERULAR FILTRATION RATE 112 ML/MIN (>89); POTASSIUM 3.7 MEQ/L (3.5-5.1); SODIUM (NA) 141 MEQ/L (136-145)
[2017-02-07] MEDS: SODIUM CHLORIDE 0.9% FLUSH 10 ML FLUSH IV FLUSH SCH ×2 (08:58→20:59)
[2017-02-07] MEDS: LACTOBACILLUS ACIDOPHILUS TAB PO SCH ×3 (08:59→18:20)
[2017-02-07 09:13] LABS: BANDS 12 % (0-6); EOSINOPHILS 1 % (0-4); METAMYELOCYTES 1 % (0-1); NEUTROPHIL # MANUAL DIFF 3.8 TH/MM3 (1.8-7.7); OVALOCYTES 1+ (NORMAL); PLATELET ESTIMATE SMEAR LOW (NORMAL); PLATELET MORPHOLOGY NORMAL (NORMAL); POLYS (SEG NEUTROPHILS) 61 % (16-70); SCAN/DIFF FINAL DIFF MANUAL; WBC DIFF SAMPLE 100
[2017-02-07 09:15] LABS: FERRITIN 681 NG/ML (8-252); TRANSFERRIN IRON PROFILE 52 MG/DL (200-360)
[2017-02-07] MEDS: traMADol HCL 50 MG TAB PO PRN (18:30)
[2017-02-08] VITALS (16 sets, daily range): BP systolic 120–153; BP diastolic 64–85; PULSE 80–118; RESP 16–21; TEMP 96.8–99.3; O2SAT 93–100
[2017-02-08] MEDS: VANCOMYCIN 500 MG VIAL (FOR ORAL USE ONLY) PO SCH ×4 (00:42→17:12)
[2017-02-08] MEDS: SODIUM CHLOR 0.9% 1000 ML INJ 1,000 ML IV SCH ×2 (00:43→12:41)
[2017-02-08] MEDS: RESP: ALBUTEROL 2.5 MG/IPRATROPIUM 0.5 MG NEB (SCH) NEB ×4 (03:02→20:56)
[2017-02-08] MEDS: SODIUM CHLORIDE 0.9% FLUSH 10 ML FLUSH IV FLUSH SCH ×2 (08:13→20:12)
[2017-02-08] MEDS: LACTOBACILLUS ACIDOPHILUS TAB PO SCH ×3 (08:13→17:12)
--- NOTE | 2017-02-08 09:13 | HHI.PR ---
Subjective Remarks Follow-up for C. difficile colitis. The patient is doing well today. She reports that stools are becoming more solid and less frequent. Abdominal pain has improved. She denies any fevers or chills. Tolerating oral intake. Objective Vitals Vital Signs Date Time Temp Pulse Resp B/P Pulse Ox O2 Delivery O2 Flow Rate FiO2 02/08/17 03:03 87 02/08/17 02:53 96.8 103 19 138/85 93 02/08/17 00:38 99.3 100 21 137/64 100 02/08/17 00:00 97 02/07/17 21:11 100 Nasal Cannula 2.00 02/07/17 20:59 18 02/07/17 20:15 98.3 86 20 142/65 100 02/07/17 19:05 91 02/07/17 16:22 98.8 89 21 153/73 100 02/07/17 15:51 83 02/07/17 12:39 99.0 72 18 148/77 100 I/O 02/07/17 02/07/17 02/07/17 02/08/17 02/08/17 02/08/17 07:00 15:00 23:00 07:00 15:00 23:00 Intake Total 900 ml Output Total 6 ml Balance -6 ml 900 ml IV Total 900 ml Output Stool Total 6 ml # Voids 6 # Bowel Movements 2 Result Diagram: 02/07/17 0713 02/07/17 [address] Angiography 02/06/17 0000 Signed Impressions: Service Date/Time: Monday, February 06, 2017 10:07 - CONCLUSION: 1. No evidence of pulmonary embolism. 2. Cardiomegaly with mild pulmonary congestion and small bilateral effusions. 3. Subsegmental airspace disease in both lung bases. Yaya Guzman MD Chest X-Ray 02/05/17 0000 Signed Impressions: Service Date/Time: Sunday, February 05, 2017 15:40 - CONCLUSION: No acute cardiopulmonary disease. Amy Vincent MD Objective Remarks GENERAL: Well-developed fair-nourished thin middle-aged female. In no acute distress. SKIN: Warm and dry. No lesions noted. HEENT: Normocephalic. Pupils equal and round. Mucous membranes pink and moist. CARDIOVASCULAR: Regular rate and rhythm. No murmur appreciated. RESPIRATORY: No accessory muscle use. Clear to auscultation. Breath sounds equal bilaterally. GASTROINTESTINAL: Abdomen soft, non-tender, nondistended. Bowel sounds x4. MUSCULOSKELETAL: No obvious deformities. No clubbing or cyanosis. No edema. NEUROLOGICAL: Awake and alert. No focal neurological deficits. Moves upper and lower extremities spontaneously. Normal speech. PSYCHIATRIC: Appropriate mood and affect; insight and judgment normal. A/P Assessment and Plan 51-year-old female with a past medical history of HIV/AIDS, C. difficile, cirrhosis, GI bleed, CVA who presented with abdominal pain and diarrhea Abdominal Pain with Recurrent C. Difficile Diarrhea: 3rd episode of C.diff. Reviewed- Abdomen and pelvis CT 02/04 showed significant reduction in ascites since prior exam with slight ascites remaining; cirrhosis and signs of portal venous hypertension. Afebrile with no leukocytosis. Acute dehydration on labs. C. difficile assay 02/04 remains positive for resistant strain although repeat 02/06 negative. -Consulted ID, appreciate input -Changed flagyl to Vanco 500mg po q6h [id number] with taper -Started Lactinex -Supportive care with IVF -Continue Protonix -Improving -AFBs stool studies pending. Acute kidney injury: Creatinine 1.27, previously 0.77 on 02/04/17. Suspect secondary to diarrhea. -Given IVF with improvement in creatinine to baseline. Resolved. HIV/AIDS: Most recent CD4 count from 11/15/16 less than 20. Continue home HAART medications, follows with Dr. Teague with outreach clinic -ID consulted Chest pain with breathing, Dyspnea on Exertion: Pleural effusion seen on review of previous chest x-rays. -Repeat CXR PA/lateral with no acute findings -D-dimer elevated, CT-PA negative for PE, does show mild pulmonary congestion with small bilateral effusions -Nebs and Supplemental O2 as needed Severe protein calorie malnutrition: BMI 18. +Cachectic on exam. Albumin 1.0, Pre-albumin 4 on recent labs. -Liberalize diet, encourage oral intake, and added ensure to meals Hypocalcemia: Calcium 7.3. Suspect secondary to poor oral intake. -given IV Calcium gluconate x1 -repeat calcium 7.5 -Give Tums Normocytic Anemia: no reported bleeding. -Hgb dropped from 8.8 to 7.7, suspect hemodilutional secondary to IVF -monitor CBC, repeat hemoglobin stable at 7.7 -Iron studies reviewed, consistent with anemia of chronic disease DVT prophylaxis: SCDs Discharge Planning Clinically improving, hopefully discharge soon if patient continues to clinically improve. Follow-up further stool studies and ID recommendations. Gutierrez Maurice Feb 08, 2017 09:13
[2017-02-08] MEDS: CALCIUM CARBONATE 500 MG CHEWABLE TAB CHEW SCH (20:12)
[2017-02-08] MEDS: traMADol HCL 50 MG TAB PO PRN (20:13)
[2017-02-08] MEDS ORDERED: NITROGLYCERIN 0.4 MG SL 25 TABS/BTL SL ONE (22:15)
[2017-02-08] MEDS ORDERED: CALCIUM GLUCONATE 10% 1 GM/10 ML VIAL IV PUSH ONE (22:30)
[2017-02-08] MEDS ORDERED: POTASSIUM CHLORIDE 20 MEQ CONTROLLED RELEASE TAB PO ONE (22:30)
--- NOTE | 2017-02-08 22:41 | RADRPT ---
EXAM DATE/TIME: 02/08/2017 22:22 [facility] COMPARISON: CHEST SINGLE AP, November 23, 2016, 22:38. INDICATIONS : Shortness of breath, chest pain. MEDICAL HISTORY : Cirrhosis. HIV. Seizures. Cerebrovascular accident. Liver disease SURGICAL HISTORY : None. ENCOUNTER: Subsequent ACUITY: 4 - 6 days PAIN SCORE: 10/10 LOCATION: chest midline. FINDINGS: Patchy left basilar airspace disease. Cardiomegaly. Osseous structures are intact. Minimal linear den sity at the right base suggestive of atelectasis. CONCLUSION: Left lower lobe airspace disease and possible tiny left effusion. Right basilar atelectasis. Joe Palma MD on February 08, 2017 at 22:39 Board Certified Radiologist. This report was verified electronically.
[2017-02-08] MEDS ORDERED: CALCIUM GLUCONATE INJ 1 GM in DEXTROSE 5% IN WATER 100ML INJ 100 ML IV ONE ×2 (23:00)
[2017-02-08] MEDS ORDERED: RESP: IPRATROPIUM 0.5 MG/2.5 ML NEB NEB PRN (23:15)
[2017-02-09] VITALS (12 sets, daily range): BP systolic 106–157; BP diastolic 52–85; PULSE 68–100; RESP 18–23; TEMP 97.8–98.4; O2SAT 94–98
[2017-02-09] MEDS: VANCOMYCIN 500 MG VIAL (FOR ORAL USE ONLY) PO SCH ×4 (00:03→17:08)
[2017-02-09] MEDS ORDERED: NITROGLYCERIN 0.4 MG SL 25 TABS/BTL SL PRN (00:15)
--- NOTE | 2017-02-09 08:56 | EKG ---
Date Performed: 02/08/2017 Time Performed: 21:45:38 PTAGE: 51 years EKG: SINUS TACHYCARDIA POSSIBLE LEFT ATRIAL ENLARGEMENT LOW QRS VOLTAGE IN EXTREMITY LEADS SEPTA L MYOCARDIAL INFARCTION MODERATE T-WAVE ABNORMALITY, CONSIDER LATERAL ISCHEMIA ABNORMAL ECG INTERPRET ATION BASED ON A DEFAULT AGE OF 40 YEARS NO PREVIOUS TRACING DOCTOR: Eitan Bhatt Interpretating Date/Time 02/09/2017 08:55:36
[2017-02-09] MEDS: CALCIUM CARBONATE 500 MG CHEWABLE TAB CHEW SCH ×2 (09:33→21:18)
[2017-02-09] MEDS: SODIUM CHLORIDE 0.9% FLUSH 10 ML FLUSH IV FLUSH SCH ×2 (09:34→21:18)
[2017-02-09] MEDS: LACTOBACILLUS ACIDOPHILUS TAB PO SCH ×3 (09:34→17:08)
--- NOTE | 2017-02-09 11:23 | HHI.PR ---
Subjective Remarks Follow-up for C. difficile colitis and chest pain. The patient continues to complain of generalized abdominal cramping today. She had one episode of vomiting overnight. She denies any further diarrhea overnight. The patient did have an episode of chest pain overnight. She states the chest pain improved after she was given a pill. She reports her breathing is at baseline. She denies any further chest pain. 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 Serial cardiac enzymes and EKGs were not done overnight, discussed with RN, will check now. Objective Vitals Vital Signs Date Time Temp Pulse Resp B/P Pulse Ox O2 Delivery O2 Flow Rate FiO2 02/09/17 09:30 88 02/09/17 08:23 98.3 86 23 122/81 94 02/09/17 05:51 97.8 77 18 129/72 97 02/09/17 03:57 94 02/09/17 00:13 100 124/78 02/09/17 00:00 98.0 74 18 128/68 95 02/08/17 23:29 99 02/08/17 21:42 118 18 120/67 94 02/08/17 21:20 18 02/08/17 20:58 98 Nasal Cannula 2.00 02/08/17 20:21 93 02/08/17 19:23 98.1 98 18 133/65 96 02/08/17 16:43 83 02/08/17 15:50 97.3 105 16 144/72 95 02/08/17 12:52 87 02/08/17 12:00 98.0 80 16 153/80 95 I/O 02/08/17 02/08/17 02/08/17 02/09/17 02/09/17 02/09/17 06:59 14:59 22:59 06:59 14:59 22:59 Intake Total 480 ml Balance 480 ml Intake Oral 480 ml # Voids 5 4 Result Diagram: 02/07/17 0713 02/07/17 07 Imaging Last Impressions Chest X-Ray 02/08/17 0000 Signed Impressions: Service Date/Time: Wednesday, February 08, 2017 22:22 - CONCLUSION: Left lower lobe airspace disease and possible tiny left effusion. Right basilar atelectasis. Joe Palma MD CT Angiography 02/06/17 0000 Signed Impressions: Service Date/Time: Monday, February 06, 2017 10:07 - CONCLUSION: 1. No evidence of pulmonary embolism. 2. Cardiomegaly with mild pulmonary congestion and small bilateral effusions. 3. Subsegmental airspace disease in both lung bases. Yaya Guzman MD Objective Remarks GENERAL: Well-developed fair-nourished thin middle-aged female. In no acute distress. SKIN: Warm and dry. No lesions noted. HEENT: Normocephalic. Pupils equal and round. Mucous membranes pink and moist. CARDIOVASCULAR: Regular rate and rhythm. No murmur appreciated. RESPIRATORY: No accessory muscle use. Clear to auscultation. Breath sounds equal bilaterally. GASTROINTESTINAL: Abdomen soft, generalized TTP, nondistended. Bowel sounds x4. MUSCULOSKELETAL: No obvious deformities. No clubbing or cyanosis. No edema. NEUROLOGICAL: Awake and alert. No focal neurological deficits. Moves upper and lower extremities spontaneously. Normal speech. PSYCHIATRIC: Appropriate mood and affect; insight and judgment normal. A/P Assessment and Plan 51-year-old female with a past medical history of HIV/AIDS, C. difficile, cirrhosis, GI bleed, CVA who presented with abdominal pain and diarrhea Abdominal Pain with Recurrent C. Difficile Diarrhea: 3rd episode of C.diff. Reviewed- Abdomen and pelvis CT 02/04 showed significant reduction in ascites since prior exam with slight ascites remaining; cirrhosis and signs of portal venous hypertension. Afebrile with no leukocytosis. Acute dehydration on labs. C. difficile assay 02/04 remains positive for resistant strain although repeat 02/06 negative. -Consulted ID, appreciate input -Changed flagyl to Vanco 500mg po q6h [id number] with taper -Started Lactinex -Continue Protonix -AFBs stool studies pending. -Add Bentyl -Diarrhea improved Acute kidney injury: Creatinine 1.27, previously 0.77 on 02/04/17. Suspect secondary to diarrhea. -Given IVF with improvement in creatinine to baseline. Resolved. HIV/AIDS: Most recent CD4 count from 11/15/16 less than 20. Continue home HAART medications, follows with Dr. Teague with outreach clinic -ID consulted Chest pain: CXR PA/lateral with no acute findings. D-dimer elevated, CT-PA negative for PE, does show mild pulmonary congestion with small bilateral effusions. -EKG reviewed and did show new lateral ST changes. Repeat. -Initial troponin within normal limits, trend. -Cardiology was consulted -Nitroglycerin as needed -Nebs and Supplemental O2 as needed Severe protein calorie malnutrition: BMI 18. +Cachectic on exam. Albumin 1.0, Pre-albumin 4 on recent labs. -Liberalize diet, encourage oral intake, and added ensure to meals Hypocalcemia: Calcium 7.3. Suspect secondary to poor oral intake. -given IV Calcium gluconate x2 -Started Tums -Repeat labs today Normocytic Anemia: no reported bleeding. -Hgb dropped from 8.8 to 7.7, suspect hemodilutional secondary to IVF -monitor CBC, repeat hemoglobin stable at 7.7 -Iron studies reviewed, consistent with anemia of chronic disease DVT prophylaxis: SCDs Discharge Planning Follow-up cardiac workup and cardiology recommendations. Follow-up further stool studies and ID recommendations. Gutierrez Maurice Feb 09, 2017 11:23
[2017-02-09 11:59] LABS: ANION GAP 5 MEQ/L (5-15); AST (GOT) 38 U/L (15-37); BICARBONATE 21.2 MEQ/L (21.0-32.0); BLOOD UREA NITROGEN 5 MG/DL (7-18); CHLORIDE 111 MEQ/L (98-107); GLOMERULAR FILTRATION RATE 98 ML/MIN (>89); MAGNESIUM 1.4 MG/DL (1.5-2.5); POTASSIUM 4.3 MEQ/L (3.5-5.1); SODIUM (NA) 137 MEQ/L (136-145)
[2017-02-09 12:00] LABS: ALT (GPT) 16 U/L (10-53)
[2017-02-09 12:04] LABS: ALKALINE PHOSPHATASE 125 U/L (45-117); TOTAL BILIRUBIN ADULT 0.4 MG/DL (0.2-1.0)
[2017-02-09] MEDS: DICYCLOMINE HCL 20 MG TAB PO SCH ×2 (12:59→17:08)
[2017-02-09] MEDS: MAGNESIUM SULFATE 1 GM PREMIX 100 ML IV SCH ×2 (12:59→14:03)
[2017-02-09 15:29] LABS: BASOPHIL % 0.6 % (0.0-2.0); EOSINOPHIL # 0.1 TH/MM3 (0-0.4); EOSINOPHIL % 2.7 % (0.0-4.0); HEMATOCRIT 25.2 % (35.0-46.0); HEMO FLAGS DIFF FINAL; LYMPH % 11.9 % (9.0-44.0); LYMPHOCYTE # 0.5 TH/MM3 (1.0-4.8); MEAN CELL VOLUME 94.4 FL (80.0-100.0); MEAN CORPUSCULAR HEMOGLOBIN 31.4 PG (27.0-34.0); MEAN CORPUSCULAR HGB CONC 33.3 % (32.0-36.0); MONO % 10.8 % (0.0-8.0); PLATELET COUNT 119 TH/MM3 (150-450); RED BLOOD COUNT 2.67 MIL/MM3 (4.00-5.30); RED CELL DISTRIBUTION WIDTH 16.8 % (11.6-17.2); WHITE BLOOD COUNT 4.1 TH/MM3 (4.0-11.0)
[2017-02-09] MEDS ORDERED: PILL SPLITTER OTHER PRN (15:30)
[2017-02-09] MEDS: ASPIRIN 81 MG CHEW TAB CHEW SCH (16:10)
--- NOTE | 2017-02-09 16:21 | MB ---
cc: JEN LEE DO DATE OF CONSULTATION: February 09, 2017 REASON FOR CONSULTATION Chest pain. HISTORY OF PRESENT ILLNESS Epifanio Helm is a pleasant 51-year-old female who presented to [facility] Emergency Room on February 05, 2017 due to abdominal discomfort with intractable diarrhea. On the day that she came in she states that she had five episodes of diarrhea. She denies fevers or chills. She has had recent hospitalization for C-difficile. She has been admitted since then and last night started having an episode of right-sided chest pain, which was sharp in nature. She states that she has had no chest pain recently. During the episode she did have an EKG done which does show some mild changes laterally with ST-T waves. Repeat EKG this morning shows returned to normal of the ST-T wave changes. At this time she states that she has no chest pain or shortness of breath. PAST MEDICAL HISTORY 1. HIV/AIDS. 2. History of recent C. Difficile infection. 3. Cirrhosis with ascites as well as portal hypertension with possible esophageal varices. 4. History of GI bleed with gastritis. 5. History of stroke x2. 6. Probable coronary artery disease. PAST SURGICAL HISTORY 1. section. 2. EGD/colonoscopy. ALLERGIES NO KNOWN DRUG ALLERGIES. MEDICATIONS 1. Zofran 4 mg every 6 hours as needed. 2. Mepron 1500 mg daily. 3. Flagyl 500 mg q.i.d. 4. Triumeq one tablet daily. 5. Prezcobix one tablet daily. 6. Fluconazole 100 mg daily. 7. Azithromycin 1200 mg weekly. 8. Tramadol 50 mg every 6 hours as needed. 9. Cipro 500 mg b.i.d. FAMILY HISTORY Denies premature coronary artery disease or sudden cardiac within the family. SOCIAL HISTORY The patient denies alcohol. She previously smoked but reportedly stopped. She had a history of cocaine use in the past but has not used for sometime. REVIEW OF SYSTEMS 14-systems were reviewed as above, pertinent positives and negatives as above, otherwise negative. PHYSICAL EXAMINATION VITAL SIGNS: Temperature 98.3, heart rate 88, blood pressure 122/81, respirations 20, pulse ox 94% on 2 liters. GENERAL: The patient appears cachectic and chronically ill appearing. HEENT: Extraocular muscles intact. Mucous membranes moist. NECK: Supple. No JVD at 45 degrees. No carotid bruits heard bilaterally. Carotid upstroke is brisk in nature. HEART: Heart is regular rate and rhythm. Positive first and second heart sounds with a 1/6 holosystolic murmur noted at the apex. LUNGS: Lungs have decreased breath sounds bilaterally but no overt wheezes, rales or rhonchi. ABDOMEN: Soft, nontender, nondistended. No organomegaly noted. EXTREMITIES: Show no clubbing, cyanosis or edema. SKIN: Warm, dry and intact. NEUROLOGIC: No focal deficits. OSTEOPATHIC: No kyphoscoliosis, lordosis or paraspinal tender points. LABORATORY FINDINGS Hemoglobin 7.7, hematocrit 23.0, platelets 108. PT 13, PTT 34.3. Potassium 4.3, BUN 5, creatinine 0.75, troponin 0.07. ELECTROCARDIOGRAM Electrocardiogram (February 09, 2017) sinus rhythm, possible left atrial enlargement, probable old septal infarct. Electrocardiogram (February 08, 2017 at 2145) sinus tachycardia, possible left atrial enlargement, possible old septal infarct, ST-T wave changes laterally, possibly due to ischemia. IMPRESSION 1. Chest pain which appears atypical for coronary insufficiency but with ST changes on EKG and relieved by nitroglycerin making it more concerning. 2. Minimal elevation of troponin at 0.07. 3. Abdominal pain with recurrent C-difficile diarrhea. 4. Acute kidney injury. 5. History of HIV/AIDS. 6. Severe protein calorie malnutrition with an albumin level of 1. 7. Normocytic anemia. 8. Thrombocytopenia. 9. Abnormal coagulopathies with a PT of 13 and PTT of 34. 10. History of cirrhosis with ascites and signs of portal hypertension with a concern for previous episode of gastric varices. 11. Questionable noncompliance of medications due to confusion on what she should take as on both admissions she is unsure of what she is taking and at what times. RECOMMENDATIONS 1. Ms. Helm is at an increased risk of coronary artery disease due to her history of smoking, cocaine and also HIV and treatment of HIV as this can further increase progression of CAD. 2. She probably does have underlying CAD, although her chest pain was somewhat atypical, but the major concern is that she had some minor EKG changes, as well as, it was relieved by nitroglycerin. 3. Last time that I saw her in October of 2016, she was noted to have an elevated troponin and we discussed extensively about possible ischemic evaluation versus medical management and at that time she decided on medical management. I sat down with her again today and discussed risks, benefits and alternatives of each and she decided that she would like to continue medical management. 4. Overall, I agree with continuing medical management as further invasive evaluation (stress testing or cardiac catheterization) would be difficult with her underlying anemia, thrombocytopenia, cirrhosis, gastric varices and coagulopathy. My other concern is that she seems to have noncompliance and confusion with her medications and if she did have any revascularization she would be unable to miss any of her medications. 5. For now we will place her on aspirin [address] her on Lopressor low-dose twice a day. Will have to continue to watch her hemoglobin and platelets and if her platelets drop below 70,000, I would stop her aspirin. Thank you for allowing me to see Epifanio Helm, if there are any questions, please do not hesitate to call. Jen Lee DO VGP/TLL /2:52 PM /3:48 PM
[2017-02-09] MEDS: METOPROLOL TARTRATE 25 MG TAB PO SCH (21:17)
[2017-02-10] MEDS: VANCOMYCIN 500 MG VIAL (FOR ORAL USE ONLY) PO SCH ×3 (00:06→12:23)
[2017-02-10 07:00] VITALS: PULSE 69
[2017-02-10 08:17] VITALS: BP 120/70; PULSE 63; RESP 18; TEMP 97.8; O2SAT 95
[2017-02-10] MEDS: SODIUM CHLORIDE 0.9% FLUSH 10 ML FLUSH IV FLUSH SCH (08:29)
[2017-02-10] MEDS: CALCIUM CARBONATE 500 MG CHEWABLE TAB CHEW SCH (08:29)
[2017-02-10] MEDS: METOPROLOL TARTRATE 25 MG TAB PO SCH (08:30)
[2017-02-10] MEDS: DICYCLOMINE HCL 20 MG TAB PO SCH ×2 (08:30→12:23)
[2017-02-10] MEDS: ASPIRIN 81 MG CHEW TAB CHEW SCH (08:30)
[2017-02-10] MEDS: LACTOBACILLUS ACIDOPHILUS TAB PO SCH ×2 (08:30→12:23)
[2017-02-10 08:59] VITALS: O2SAT 95
--- NOTE | 2017-02-10 09:06 | HHI.PR ---
Subjective Remarks Follow-up for abdominal pain and chest pain. The patient feels like her abdominal ascites has returned and needs to be drained. She reports her chest pain feels better today. She feels like the Bentyl helped her abdominal cramping and some. She reports 3 loose bowel movements overnight. She has been tolerating oral intake with no vomiting. Objective Vitals Vital Signs Date Time Temp Pulse Resp B/P Pulse Ox O2 Delivery O2 Flow Rate FiO2 02/10/17 08:17 97.8 63 18 120/70 95 02/10/17 07:00 69 02/09/17 23:57 98.1 68 18 109/71 97 02/09/17 23:15 99 02/09/17 19:17 98.4 68 18 106/52 98 02/09/17 16:39 76 02/09/17 16:00 98.0 80 20 157/85 98 02/09/17 15:09 Nasal Cannula 2.00 02/09/17 09:30 88 I/O 02/09/17 02/09/17 02/09/17 02/10/17 02/10/17 02/10/17 07:00 15:00 23:00 07:00 15:00 23:00 Intake Total 480 ml Balance 480 ml Intake Oral 480 ml # Voids 4 Result Diagram: 02/09/17 1427 02/09/17 1120 Imaging Last Impressions Chest X-Ray 02/08/17 0000 Signed Impressions: Service Date/Time: Wednesday, February 08, 2017 22:22 - CONCLUSION: Left lower lobe airspace disease and possible tiny left effusion. Right basilar atelectasis. Joe Palma MD CT Angiography 02/06/17 0000 Signed Impressions: Service Date/Time: Monday, February 06, 2017 10:07 - CONCLUSION: 1. No evidence of pulmonary embolism. 2. Cardiomegaly with mild pulmonary congestion and small bilateral effusions. 3. Subsegmental airspace disease in both lung bases. Yaya Guzman MD Objective Remarks GENERAL: Well-developed fair-nourished thin chronically ill-appearing middle- aged female. In no acute distress. SKIN: Warm and dry. No lesions noted. HEENT: Normocephalic. Pupils equal and round. Mucous membranes pink and moist. CARDIOVASCULAR: Regular rate and rhythm. No murmur appreciated. RESPIRATORY: No accessory muscle use. Clear to auscultation. Breath sounds equal bilaterally. GASTROINTESTINAL: Abdomen soft, generalized TTP, mildly distended. Bowel sounds x4. MUSCULOSKELETAL: No obvious deformities. No clubbing or cyanosis. No edema. NEUROLOGICAL: Awake and alert. No focal neurological deficits. Moves upper and lower extremities spontaneously. Normal speech. PSYCHIATRIC: Appropriate mood and affect; insight and judgment normal. A/P Assessment and Plan 51-year-old female with a past medical history of HIV/AIDS, C. difficile, cirrhosis, GI bleed, CVA who presented with abdominal pain and diarrhea Abdominal Pain with Recurrent C. Difficile Diarrhea: 3rd episode of C.diff. Reviewed- Abdomen and pelvis CT 02/04 showed significant reduction in ascites since prior exam with slight ascites remaining; cirrhosis and signs of portal venous hypertension. Afebrile with no leukocytosis. Acute dehydration on labs. C. difficile assay 02/04 remains positive for resistant strain although repeat 02/06 negative. -Consulted ID, appreciate input -Changed flagyl to Vanco 500mg po q6h [id number] with taper -Started Lactinex -Continue Protonix -AFBs stool studies pending. -Added Bentyl -Diarrhea improved -Check abdominal ultrasound to assess for drainable ascites Acute kidney injury: Creatinine 1.27, previously 0.77 on 02/04/17. Suspect secondary to diarrhea. -Given IVF with improvement in creatinine to baseline. Resolved. HIV/AIDS: Most recent CD4 count from 11/15/16 less than 20. Continue home HAART medications, follows with Dr. Teague with outreach clinic -ID on board Chest pain: CXR PA/lateral with no acute findings. D-dimer elevated, CT-PA negative for PE, does show mild pulmonary congestion with small bilateral effusions. -EKG reviewed and did show new lateral ST changes, resolved with repeat EKGs -Patient did have mild troponin elevation 02/09, history of the same -Cardiology consulted, discussed with Dr. Fermin, plan for conservative medical management -Aspirin and metoprolol added -Nebs and Supplemental O2 as needed Severe protein calorie malnutrition: BMI 18. +Cachectic on exam. Albumin 1.0, Pre-albumin 4 on recent labs. -Liberalized diet, encourage oral intake, and added ensure to meals Hypocalcemia: Calcium 7.3. Suspect secondary to poor oral intake. -given IV Calcium gluconate x2 -Started Tums -Repeat calcium improved -Magnesium low, given IV replacement Normocytic Anemia: no reported bleeding. -Hgb dropped from 8.8 to 7.7, suspect hemodilutional secondary to IVF -monitor CBC, repeat hemoglobin stable at 7.7 -Iron studies reviewed, consistent with anemia of chronic disease DVT prophylaxis: SCDs Discharge Planning Follow-up abdominal ultrasound. Follow-up further stool studies and ID recommendations. Gutierrez Maurice Feb 10, 2017 09:06
--- NOTE | 2017-02-10 09:20 | PD.CARD.PN ---
Subjective Subjective Remarks No events overnight No chest pain, SOB is better Still with diarrhea Objective Medications Current Medications Medications (Trade) Dose Ordered Sig/Sue Route Start Time Stop Time Status Last Admin (NS Flush) 2 ml UNSCH PRN IV FLUSH 02/05/17 10:30 02/05/17 11:08 (NS Flush) 2 ml BID IV FLUSH 02/05/17 21:00 02/10/17 08:29 (Tylenol) 650 mg Q4H PRN PO 02/05/17 14:00 (Zofran Inj) 4 mg Q6H PRN IVP 02/05/17 14:00 (Ultram) 50 mg Q6H PRN PO 02/05/17 14:00 02/08/17 20:13 Patient Own Medication PT OWN MED: TRIUME... DAILY PO 02/06/17 09:00 Hold Patient Own Medication PT OWN MED: PREZCO... DAILY PO 02/06/17 09:00 Hold (Lactinex) 1 tab TID PO 02/05/17 18:00 02/10/17 08:30 (VANCOMYCIN for oral use only) 500 mg Q6HR PO 02/06/17 18:00 02/10/17 08:02 (Vasotec Inj) 1.25 mg Q6H PRN IV PUSH 02/06/17 20:00 (Tums Chew) 500 mg Q12HR CHEW 02/08/17 21:00 02/10/17 08:29 (Nitrostat Sl) 0.4 mg Q5M PRN SL 02/09/17 00:15 (Bentyl) 20 mg TID PO 02/09/17 13:00 02/10/17 08:30 (Aspirin Chew) 81 mg DAILY CHEW 02/09/17 15:15 02/10/17 08:30 (Lopressor) 12.5 mg Q12HR PO 02/09/17 21:00 02/10/17 08:30 (Pill Splitter) 1 ea UNSCH PRN OTHER 02/09/17 15:30 Vital Signs / I&O Vital Signs Date Time Temp Pulse Resp B/P Pulse Ox O2 Delivery O2 Flow Rate FiO2 02/10/17 08:59 95 Nasal Cannula 2.00 02/10/17 08:17 97.8 63 18 120/70 95 7/20/17 07:00 69 02/09/17 23:57 98.1 68 18 109/71 97 02/09/17 23:15 99 02/09/17 19:17 98.4 68 18 106/52 98 02/09/17 16:39 76 02/09/17 16:00 98.0 80 20 157/85 98 02/09/17 15:09 Nasal Cannula 2.00 02/09/17 09:30 88 I/O 02/09/17 02/09/17 02/09/17 02/10/17 02/10/17 02/10/17 06:59 14:59 22:59 06:59 14:59 22:59 Intake Total 480 ml Balance 480 ml Intake Oral 480 ml # Voids 4 Physical Exam GENERAL: NAD, chronic ill/cachectic appearing SKIN: Warm and dry. HEAD: Atraumatic. Normocephalic. EYES: Pupils equal and round. No scleral icterus. No injection or drainage. ENT: No nasal bleeding or discharge. Mucous membranes pink and moist. NECK: Trachea midline. No JVD. CARDIOVASCULAR: Regular rate and rhythm. No murmurs noted RESPIRATORY: No accessory muscle use. Clear to auscultation. Breath sounds equal bilaterally. GASTROINTESTINAL: Abdomen soft, non-tender, nondistended. Hepatic and splenic margins not palpable. MUSCULOSKELETAL: Extremities without clubbing, cyanosis, or edema. No obvious deformities. NEUROLOGICAL: Awake and alert. No obvious cranial nerve deficits. Motor grossly within normal limits. Five out of 5 muscle strength in the arms and legs. Normal speech. PSYCHIATRIC: Appropriate mood and affect; insight and judgment normal. Laboratory Laboratory Tests Test 02/09/17 02/09/17 02/09/17 11:20 14:27 17:17 Sodium Level 137 MEQ/L Potassium Level 4.3 MEQ/L Chloride Level 111 MEQ/L Carbon Dioxide Level 21.2 MEQ/L Anion Gap 5 MEQ/L Blood Urea Nitrogen 5 MG/DL Creatinine 0.75 MG/DL Estimat Glomerular Filtration 98 ML/MIN Rate Random Glucose 69 MG/DL Calcium Level 7.9 MG/DL Magnesium Level 1.4 MG/DL Total Bilirubin 0.4 MG/DL Aspartate Amino Transf 38 U/L (AST/SGOT) Alanine Aminotransferase 16 U/L (ALT/SGPT) Alkaline Phosphatase 125 U/L Total Creatine Kinase 95 U/L Troponin I 0.07 NG/ML 0.06 NG/ML Total Protein 8.2 GM/DL Albumin 1.3 GM/DL White Blood Count 4.1 TH/MM3 Red Blood Count 2.67 MIL/MM3 Hemoglobin 8.4 GM/DL Hematocrit 25.2 % Mean Corpuscular Volume 94.4 FL Mean Corpuscular Hemoglobin 31.4 PG Mean Corpuscular Hemoglobin 33.3 % Concent Red Cell Distribution Width 16.8 % Platelet Count 119 TH/MM3 Mean Platelet Volume 9.8 FL Neutrophils (%) (Auto) 74.0 % Lymphocytes (%) (Auto) 11.9 % Monocytes (%) (Auto) 10.8 % Eosinophils (%) (Auto) 2.7 % Basophils (%) (Auto) 0.6 % Neutrophils # (Auto) 3.0 TH/MM3 Lymphocytes # (Auto) 0.5 TH/MM3 Monocytes # (Auto) 0.4 TH/MM3 Eosinophils # (Auto) 0.1 TH/MM3 Basophils # (Auto) 0.0 TH/MM3 CBC Comment DIFF FINAL Differential Comment Assessment and Plan Problem List: (1) C. difficile colitis (2) Abdominal pain (3) Elevated troponin (4) Liver cirrhosis (5) Ascites (6) HIV (human immunodeficiency virus infection) (7) Anemia (8) Severe protein-calorie malnutrition (9) Chronic gastritis (10) Thrombocytopenia Assessment and Plan 1) Chest pain with some mild EKG changes, history of NSTEMI (10/2016) Discussed previously and again on this admission, does not want further ischemic evaluation, wants to continue on medical management Started on ASA/BB therapy, nitro PRN If platelets less than 70,000, then ASA needs to be stopped 2) Overall not a great candidate for ischemic evaluation Anemia Thrombocytopenia Coagulopathy Cirrhosis/portal hypertension/possible esophageal varices Non-compliance with medications/confusion on taking meds 3) Anti-biotics per primary team Davy Dxion DO Feb 10, 2017 09:20
--- NOTE | 2017-02-10 10:15 | RADRPT ---
EXAM DATE/TIME: 02/10/2017 09:28 [facility] COMPARISON: No previous studies available for comparison. INDICATIONS : Ascites. MEDICAL HISTORY : Cirrhosis. CVA x2. Seizures. Migraines. Ovarian cysts. Ectopic . Ascites. Cdiff. SURGICAL HISTORY : section. Exploratory laprascopy. Paracentesis. ENCOUNTER: Initial ACUITY: 2 days PAIN SCORE: 2/10 LOCATION: Abdomen. AREA EVALUATED: Abdominal quadrants. FINDINGS: Imaging of the abdomen and pelvis was performed to evaluate for ascites for possible paracentesis. There is a small amount of fluid around the liver and a small amount of the right lower quadrant. CONCLUSION: Some fluid around the liver and some fluid in the right lower quadrant considerably less than in [facility]. Eitan Davila MD on February 10, 2017 at 10:07 Board Certified Radiologist. This report was verified electronically.
[2017-02-10 12:37] VITALS: BP 131/69; PULSE 57; RESP 20; TEMP 97.4; O2SAT 92
--- NOTE | 2017-02-10 13:24 | HHI.PR ---
Addendum to Inpatient Note Additional Information AFB neg Improving # BMs dw Gutierrez Maurice PA will dc on vanco taper since its pt's 3rd episode: complete 14 days of vancomycin 125 mg qid then 7 days of vancomycin 125 mg bid then 7 days of vancomycin 125 mg daily then 7 days of vancomycin 125 mg every other day then vancomycin 125 mg every 3rd day x 5 doses OK to dc home to fu with her HIV provider Anaid Masterson MD Feb 10, 2017 13:24
[2017-02-10] MEDS ORDERED: METO25TA3 PO (13:35)
[2017-02-10] MEDS ORDERED: LACT PO (13:35)
[2017-02-10] MEDS ORDERED: ASPI81CH25 CHEW (13:35)
[2017-02-10] MEDS ORDERED: ZOFR4TAB PO (13:35)
[2017-02-10] MEDS ORDERED: VANC500I3 PO (13:35)
[2017-02-10] MEDS ORDERED: DICY20TA10 PO (13:35)
--- NOTE | 2017-02-10 13:43 | HHI.DS ---
Discharge Summary Admission Date Feb 07, 2017 at 09:58 Discharge Date: Feb 10, 2017 Admitting Diagnosis C. diff colitis (1) HIV (human immunodeficiency virus infection) ICD Code: Z21 Diagnosis: Secondary (2) Chest pain, rule out acute myocardial infarction ICD Code: R07.9 Diagnosis: Secondary (3) C. difficile colitis ICD Code: A04.7 Diagnosis: Principal (4) Abdominal pain ICD Code: R10.9 Diagnosis: Principal Procedures None Brief History - From Admission 51-year-old female with a past medical history of HIV/AIDS, C. difficile, cirrhosis, GI bleed, CVA who presents with abdominal pain and diarrhea. The patient complains of generalized abdominal discomfort and mid to lower back pain for the past 2 weeks. She states she is been having intractable diarrhea, 5 episodes today. She denies fevers, reports subjective chills. She had a recent hospitalization for C. difficile. She was treated with a course of Flagyl which she states she took, and her diarrhea initially improved, but then got worse again over the past 2 weeks. She presented to the ED yesterday and had a mostly unremarkable laboratory workup and abdominal CT, and was discharged with antibiotics. She did fill her antibiotics, but is not been able to start taking them yet. She also complains of pain whenever she takes a deep breath and lightheadedness. She denies any nausea or vomiting, but has had decreased appetite. The patient complains of cramping abdominal pain along with frequent bowel movements. She believes she has had C. difficile twice before in the past. She also mentions that she has pain when she takes a deep breath. She says she follows with an infectious disease doctor. She is not sure what HIV medications she is supposed to be on. CBC/BMP: 02/09/17 1427 02/09/17 1120 Significant Findings Laboratory Tests Test 02/09/17 02/09/17 02/09/17 11:20 14:27 17:17 Chloride Level 111 MEQ/L (98-107) Blood Urea Nitrogen 5 MG/DL (7-18) Random Glucose 69 MG/DL (74-106) Calcium Level 7.9 MG/DL (8.5-10.1) Magnesium Level 1.4 MG/DL (1.5-2.5) Aspartate Amino Transf 38 U/L (15-37) (AST/SGOT) Alkaline Phosphatase 125 U/L (45-117) Troponin I 0.07 NG/ML 0.06 NG/ML (0.02-0.05) (0.02-0.05) Albumin 1.3 GM/DL (3.4-5.0) Red Blood Count 2.67 MIL/MM3 (4.00-5.30) Hemoglobin 8.4 GM/DL (11.6-15.3) Hematocrit 25.2 % (35.0-46.0) Platelet Count 119 TH/MM3 (150-450) Neutrophils (%) (Auto) 74.0 % (16.0-70.0) Monocytes (%) (Auto) 10.8 % (0.0-8.0) Lymphocytes # (Auto) 0.5 TH/MM3 (1.0-4.8) Imaging Last Impressions Abdomen Ultrasound 02/10/17 0000 Signed Impressions: Service Date/Time: January 09:28 - CONCLUSION: Some fluid around the liver and some fluid in the right lower quadrant considerably less than in July. Eitan Davila MD Chest X-Ray 02/08/17 0000 Signed Impressions: Service Date/Time: Wednesday, February 08, 2017 22:22 - CONCLUSION: Left lower lobe airspace disease and possible tiny left effusion. Right basilar atelectasis. Joe Palma MD CT Angiography 02/06/17 0000 Signed Impressions: Service Date/Time: Monday, February 06, 2017 10:07 - CONCLUSION: 1. No evidence of pulmonary embolism. 2. Cardiomegaly with mild pulmonary congestion and small bilateral effusions. 3. Subsegmental airspace disease in both lung bases. Yaya Guzman MD PE at Discharge GENERAL: Well-developed fair-nourished thin chronically ill-appearing middle- aged female. In no acute distress. SKIN: Warm and dry. No lesions noted. HEENT: Normocephalic. Pupils equal and round. Mucous membranes pink and moist. CARDIOVASCULAR: Regular rate and rhythm. No murmur appreciated. RESPIRATORY: No accessory muscle use. Clear to auscultation. Breath sounds equal bilaterally. GASTROINTESTINAL: Abdomen soft, generalized TTP, mildly distended. Bowel sounds x4. MUSCULOSKELETAL: No obvious deformities. No clubbing or cyanosis. No edema. NEUROLOGICAL: Awake and alert. No focal neurological deficits. Moves upper and lower extremities spontaneously. Normal speech. PSYCHIATRIC: Appropriate mood and affect; insight and judgment normal. Pt update on day of discharge Per radiology, not enough ascites for safe paracentesis. Discussed with ID, Dr. Masterson, patient cleared from ID perspective for discharge on vancomycin taper for follow-up with her outpatient HIV/infectious disease doctor. Discussed the care of the patient, who feels improved, and is happy about discharged today. Hospital Course 51-year-old female with a past medical history of HIV/AIDS, C. difficile, cirrhosis, GI bleed, CVA who presented with abdominal pain and diarrhea Abdominal Pain with Recurrent C. Difficile Diarrhea: 3rd episode of C.diff. Reviewed- Abdomen and pelvis CT 02/04 showed significant reduction in ascites since prior exam with slight ascites remaining; cirrhosis and signs of portal venous hypertension. Afebrile with no leukocytosis. Acute dehydration on labs improved. C. difficile assay 02/04 remains positive for resistant strain although repeat 02/06 negative. -Consulted ID, continue vancomycin taper for 6 weeks -Continue Lactinex and Bentyl as needed -AFBs stool studies pending, patient to follow-up with outpatient ID physician for results. HIV/AIDS: Most recent CD4 count from 11/15/16 less than 20. Continue home HAART medications, follows with Dr. Teague with outreach clinic, continue follow-up Chest pain: CXR PA/lateral with no acute findings. D-dimer elevated, CT-PA negative for PE, does show mild pulmonary congestion with small bilateral effusions. -EKG showed new lateral ST changes, resolved on repeat EKGs. Mild associated troponin elevation. -Cardiology consulted, discussed with Dr. Fermin, plan for conservative medical management -Aspirin and metoprolol added Pt Condition on Discharge: Stable Discharge Disposition: Discharge Home Discharge Time: > 30 minutes Discharge Instructions DIET: Follow Instructions for: As Tolerated, No Restrictions Activities you can perform: Regular-No Restrictions Follow up Referrals: Cardiology - 2 Weeks with Davy Dixon DO Infectious Disease - 1 Week with SHOSHANA PCP Follow-up - 1 Week with Jeremiah Garcia MD New Medications: Aspirin (Aspirin Low Strength) 81 Mg Chew 81 MG CHEW DAILY Blood Clot Prevention #30 EA Dicyclomine (Dicyclomine) 20 Mg Tab 20 MG PO TID PRN abdominal cramping #15 TAB Lactobacillus Acidophilus (Acidophilus/l-Sporogenes) 1 Tab Tab 1 TAB PO TID Diarrhea #30 TAB Metoprolol Tartrate (Metoprolol Tartrate) 25 Mg Tab 12.5 MG PO Q12HR heart health #30 TAB Vancomycin Inj (Vancomycin Inj) 500 Mg Inj 500 MG PO Q6HR Infection Days 45 INJECTION Continued Medications: Kqqxdqgx-Yajbmflklhdz-Ektqtqfohz (Triumeq) 600-50-300 Mg Tab 1 TAB PO DAILY Hazardous agent; use appropriate precautions for handling & disposal. Mgmt Viral Infection #30 Ref 0 TAB Atovaquone Liq (Mepron Liq) 750 Mg/5 Ml Susp 1500 MG PO DAILY Take with food. Infection #300 Ref 0 ML Azithromycin (Azithromycin) 600 Mg Tab 1200 MG PO Q7D prophylaxis Days 30 Ref 0 TAB Darunavir-Cobicistat (Prezcobix) 800-150 Mg Tab 1 TAB PO DAILY Mgmt Viral Infection #30 Ref 0 TAB Fluconazole (Fluconazole) 100 Mg Tab 100 MG PO DAILY Infection Days 21 Ref 0 TAB Ondansetron (Zofran) 4 Mg Tab 4 MG PO Q6HR PRN NAUSEA OR VOMITING #15 Ref 0 TAB (This prescription has been renewed) Tramadol (Tramadol) 50 Mg Tab 50 MG PO Q6H PRN PAIN #14 Ref 0 TAB Discontinued Medications: Ciprofloxacin (Cipro) 500 Mg Tab 500 MG PO BID Infection Days 10 Ref 0 TAB Metronidazole (Flagyl) 500 Mg Tab 500 MG PO QID Infection Days 10 Ref 0 TAB Gutierrez Maurice Feb 10, 2017 13:43 Alexei Nayak MD Feb 10, 2017 16:31
--- NOTE | 2017-02-10 15:08 | EKG ---
Date Performed: 02/09/2017 Time Performed: 11:23:15 PTAGE: 51 years EKG: Sinus rhythm POSSIBLE LEFT ATRIAL ENLARGEMENT LOW QRS VOLTAGE IN EXTREMITY LEADS SEPTAL MYOCARDIAL INFARCTION Com pared to previous tracing, the patient is no longer tachycardic and the ST depression has improved AB NORMAL ECG PREVIOUS TRACING : 02/08/2017 21.45 DOCTOR: Yamile Colvin Interpretating Date/Time 02/10/2017 15:01:49
== END 2017-02-10 14:50 | disposition home or self-care (01) | DRG 371 ==
LOC: NEPE 09:28 → NEDA 13:03 → NEPGCP 16:05 → OBSVTOIN 02-07 09:58
PROVIDERS: ADMIT Internal Medicine; ATTEND Internal Medicine
DX: A04.7 Enterocolitis due to Clostridium difficile (principal); B20 Human immunodeficiency virus [HIV] disease; N17.9 Acute kidney failure, unspecified; K76.6 Portal hypertension; E43 Unspecified severe protein-calorie malnutrition; R64 Cachexia; D69.6 Thrombocytopenia, unspecified; E83.51 Hypocalcemia; Z68.1 Body mass index [BMI] 19.9 or less, adult; E86.0 Dehydration; F10.21 Alcohol dependence, in remission; K70.31 Alcoholic cirrhosis of liver with ascites; R07.89 Other chest pain; Z91.14 Patient's other noncompliance with medication regimen; Z86.73 Personal history of transient ischemic attack (TIA), and cerebral infarction without residual deficits; Z87.891 Personal history of nicotine dependence; I25.2 Old myocardial infarction; D63.8 Anemia in other chronic diseases classified elsewhere; I25.10 Atherosclerotic heart disease of native coronary artery without angina pectoris
CPT/HCPCS: 71010; 71020; 71275; 76705; 76937; 80048; 80053; 82550; 82728; 83540; 83550; 83735; 84484; 84702; 85007; 85025; 85027; 85379; 87015; 87116; 87206; 87493; 93005; 94150; 94640; 94664; G0378; J0610; J3475; J7030; Q9967

== ENCOUNTER 2017-03-18 14:03 | Emergency (ER) | payer MEDICARE, MEDICAID ==
[~2017-03-18] VITALS: Ht 165.1 cm; Wt 65.0 kg
[~2017-03-18 14:03] MED LIST changes: +ASPI81CH25 CHEW; -CIPR-9 PO; +DICY20TA10 PO; +LACT PO; +METO25TA3 PO; -METR-1 PO; +VANC500I3 PO
[2017-03-18 14:06] VITALS: BP 132/69; PULSE 92; RESP 16; TEMP 98.4; O2SAT 98
[2017-03-18] MEDS ORDERED: ONDANSETRON HCL 4 MG/2 ML VIAL IV ONE (16:00)
[2017-03-18] MEDS ORDERED: SODIUM CHLOR 0.9% 1000 ML INJ 1,000 ML IV ONE (16:00)
[2017-03-18 16:04] VITALS: BP 149/68; PULSE 86; RESP 22; O2SAT 100
--- NOTE | 2017-03-18 16:04 | PD ---
HPI Chief Complaint: Chest Pain Time Seen by Provider: 15:51 Travel History International Travel<30 days: No Contact w/Intl Traveler<30days: No Traveled to known affect area: No History of Present Illness HPI This patient complains of having some sharp needlelike jabbing pains in her central chest. Started yesterday. They're not exertional. No shortness of breath. They are brief. She is currently pain-free. She also has history of chronic recurrent C. difficile colitis and HIV. She reports a few episodes of diarrhea today but that is not unusual for her. She is not having acute abdominal pain or fever. She is taking a vancomycin course as recommended by infectious disease. Severity is moderate. No alleviating factors. Duration of chest pain one day PFSH Past Medical History Hx Anticoagulant Therapy: No Arthritis: No Asthma: No Autoimmune Disease: Yes Blood Disorders: Yes Anxiety: No Depression: No Heart Rhythm Problems: No Cancer: No Cardiomyopathy: No Cardiovascular Problems: No High Cholesterol: No Chemotherapy: No Chest Pain: No Congestive Heart Failure: No Cirrhosis: Yes COPD: No Cerebrovascular Accident: Yes (x2) Diabetes: No Diminished Hearing: No Endocrine: No Gastrointestinal Disorders: Yes GERD: No Genitourinary: Yes Headaches: Yes Hiatal Hernia: No Immune Disorder: Yes Kidney Stones: No Musculoskeletal: Yes Neurologic: Yes Psychiatric: No Reproductive: No Respiratory: No Migraines: Yes Radiation Therapy: No Renal Failure: No Seizures: Yes Sickle Cell Disease: No Sleep Apnea: No Thyroid Disease: No Ulcer: No Menopausal: Yes : 2 Para: 0 Miscarriage: 1 : 1 Ectopic : Yes Ovarian Cysts: Yes Past Surgical History Abdominal Surgery: Yes (EXP. LAP.) AICD: No Arteriovenous Shunt: No Cardiac Surgery: No Section: Yes Ear Surgery: No Endocrine Surgery: No Eye Surgery: No Genitourinary Surgery: No Gynecologic Surgery: Yes Hysterectomy: No Insulin Pump: No Joint Replacement: No Oral Surgery: No Pacemaker: No Thoracic Surgery: No Other Surgery: Yes (, ectopic ) Social History Alcohol Use: No (quit liquor) Tobacco Use: No (quit hx 1 ppd) Substance Use: No Allergies-Medications (Allergen,Severity, Reaction): Coded Allergies: No Known Allergies (Verified , 02/05/17) Reported Meds & Prescriptions Reported Meds & Active Scripts Active Vancomycin Inj (Vancomycin HCl) 500 Mg Inj 500 Mg PO Q6HR 45 Days Metoprolol Tartrate 25 Mg Tab 12.5 Mg PO Q12HR Aspirin Low Strength (Aspirin) 81 Mg Chew 81 Mg CHEW DAILY Dicyclomine (Dicyclomine HCl) 20 Mg Tab 20 Mg PO TID PRN Acidophilus/l-Sporogenes (Lactobacillus Acidophilus) 1 Tab Tab 1 Tab PO TID Zofran (Ondansetron HCl) 4 Mg Tab 4 Mg PO Q6HR PRN Tramadol (Tramadol HCl) 50 Mg Tab 50 Mg PO Q6H PRN Azithromycin 600 Mg Tab 1,200 Mg PO Q7D 30 Days Reported Mepron Liq (Atovaquone) 750 Mg/5 Ml Susp 1,500 Mg PO DAILY Take with food. Fluconazole 100 Mg Tab 100 Mg PO DAILY 21 Days Prezcobix (Darunavir-Cobicistat) 800-150 Mg Tab 1 Tab PO DAILY Triumeq (Xzdfnasv-Gesjfxltnvwi-Kfbjfevvox) 600-50-300 Mg Tab 1 Tab PO DAILY Hazardous agent; use appropriate precautions for handling & disposal. Review of Systems General / Constitutional: No: Fever Eyes: No: Visual changes HENT: No: Headaches Cardiovascular: Positive: Chest Pain or Discomfort Respiratory: No: Shortness of Breath Gastrointestinal: Positive: Nausea, Diarrhea, No: Abdominal Pain Genitourinary: No: Dysuria Musculoskeletal: No: Pain Skin: No Rash Neurologic: No: Weakness Psychiatric: No: Depression Endocrine: No: Polydipsia Hematologic/Lymphatic: No: Easy Bruising Physical Exam Narrative GENERAL: Well-nourished, well-developed patient in no apparent distress. SKIN: Focused skin assessment reveals no rash and nodules. Skin is Warm and dry. HEAD: Atraumatic. Normocephalic. EYES: Pupils equal and round. No scleral icterus. No injection or drainage. ENT: No nasal bleeding or discharge. Mucous membranes pink and moist. NECK: Trachea midline. No JVD. CARDIOVASCULAR: Regular rate and rhythm. No murmur appreciated. RESPIRATORY: No accessory muscle use. Clear to auscultation. Breath sounds equal bilaterally. GASTROINTESTINAL: Abdomen soft, non-tender, nondistended. Hepatic and splenic margins not palpable. MUSCULOSKELETAL: No obvious deformities. No clubbing. No cyanosis. No edema. Has clear-cut readily reproducible chest wall tenderness in the sternum NEUROLOGICAL: Awake and alert. No obvious cranial nerve deficits. Motor grossly within normal limits. Normal speech. PSYCHIATRIC: Appropriate mood and affect; insight and judgment normal. Data Data Last Documented VS Vital Signs Date Time Temp Pulse Resp B/P (MAP) Pulse Ox O2 Delivery O2 Flow Rate FiO2 03/18/17 16:04 86 22 149/68 (95) 100 Room Air 03/18/17 14:06 98.4 Orders Orders Electrocardiogram (03/18/17 14:15) Iv Access Insert/Monitor (03/18/17 15:59) Complete Blood Count With Diff (03/18/17 15:59) Basic Metabolic Panel (Bmp) (03/18/17 15:59) Sodium Chlor 0.9% 1000 Ml Inj (Ns 1000 M (03/18/17 16:00) Ondansetron Inj (Zofran Inj) (03/18/17 16:00) Protein Corrected Calcium(Pcc) (03/18/17 16:38) Calcium Carbonate (Oscal) (03/18/17 18:00) Labs Laboratory Tests Test 03/18/17 16:38 White Blood Count 5.1 TH/MM3 Red Blood Count 2.58 MIL/MM3 Hemoglobin 7.9 GM/DL Hematocrit 24.5 % Mean Corpuscular Volume 94.9 FL Mean Corpuscular Hemoglobin 30.7 PG Mean Corpuscular Hemoglobin Concent 32.4 % Red Cell Distribution Width 16.9 % Platelet Count 111 TH/MM3 Mean Platelet Volume 9.3 FL CBC Comment AUTO DIFF Differential Total Cells Counted 100 Neutrophils % (Manual) 75 % Band Neutrophils % 14 % Lymphocytes % 8 % Monocytes % 3 % Neutrophils # (Manual) 4.5 TH/MM3 Differential Comment FINAL DIFF MANUAL Blood Urea Nitrogen 5 MG/DL Creatinine 0.76 MG/DL Random Glucose 60 MG/DL Total Protein 8.2 GM/DL Calcium Level 7.2 MG/DL Sodium Level 143 MEQ/L Potassium Level 3.9 MEQ/L Chloride Level 112 MEQ/L Carbon Dioxide Level 24.4 MEQ/L Anion Gap 7 MEQ/L Estimat Glomerular Filtration Rate 96 ML/MIN Protein Corrected Calcium 6.8 MG/DL MDM Medical Decision Making Medical Screen Exam Complete: Yes Emergency Medical Condition: Yes Medical Record Reviewed: Yes Differential Diagnosis Differential diagnosis includes GA, angina, pericarditis, pleurisy, GERD, anxiety, colitis, dehydration Narrative Course I have reviewed the patient's electronic medical record. Reviewed her discharge summary from last month IV placed I gave her IV Zofran 1 L normal saline IV bolus CBC shows anemia but normal white cell count, platelets slightly low Metabolic profile shows hypocalcemia otherwise normal I reviewed her EKG which shows sinus rhythm and no ST elevation or ectopy Patient's chest pain has clear-cut and readily reducible musculoskeletal chest wall pain. It will not require inpatient evaluation or urgent stress testing. Discussed the findings with the patient. She is feeling well. She wants to go home. She is euvolemic after IV fluid I gave her 1 g of calcium and she will take an oral supplement of 1000 mg of calcium carbonate twice daily Should follow-up with her physician and discuss these results and get follow-up Diagnosis Primary Impression: Diarrhea Qualified Codes: A09 - Infectious gastroenteritis and colitis, unspecified Additional Impressions: Hypocalcemia HIV (human immunodeficiency virus infection) Additional Instructions: Finished vancomycin course Start 1000 mg calcium carbonate twice daily which is [id number] The patient was advised to follow up with their physician and return if they worsen. Med/Other Pt SpecificInfo: Other Disposition: 01 DISCHARGE HOME Condition: Stable Tejas Rowland MD Mar 18, 2017 16:04
[2017-03-18 16:52] LABS: HEMATOCRIT 24.5 % (35.0-46.0); MEAN CELL VOLUME 94.9 FL (80.0-100.0); MEAN CORPUSCULAR HEMOGLOBIN 30.7 PG (27.0-34.0); MEAN CORPUSCULAR HGB CONC 32.4 % (32.0-36.0); PLATELET COUNT 111 TH/MM3 (150-450); RED BLOOD COUNT 2.58 MIL/MM3 (4.00-5.30); RED CELL DISTRIBUTION WIDTH 16.9 % (11.6-17.2); WHITE BLOOD COUNT 5.1 TH/MM3 (4.0-11.0)
[2017-03-18 16:57] LABS: HEMO FLAGS AUTO DIFF
[2017-03-18 17:06] LABS: BANDS 14 % (0-6); NEUTROPHIL # MANUAL DIFF 4.5 TH/MM3 (1.8-7.7); POLYS (SEG NEUTROPHILS) 75 % (16-70); WBC DIFF SAMPLE 100
[2017-03-18 17:07] LABS: SCAN/DIFF FINAL DIFF MANUAL
[2017-03-18 17:11] LABS: BICARBONATE 24.4 MEQ/L (21.0-32.0); POTASSIUM 3.9 MEQ/L (3.5-5.1)
[2017-03-18 17:29] LABS: CALCIUM-PROTEIN CORRECTED 6.8 MG/DL (8.5-10.1)
[2017-03-18] MEDS ORDERED: CALCIUM CARBONATE 1.25 GM (CA 500 MG) TAB PO ONE (18:00)
--- NOTE | 2017-03-19 18:38 | EKG ---
Date Performed: 03/18/2017 Time Performed: 14:22:31 PTAGE: 52 years EKG: Sinus rhythm NONSPECIFIC T-WAVE ABNORMALITY BORDERLINE ECG PREVIOUS TRACING : 02/09/2017 11.23 Compared to prior tracing no significant change DOCTOR: Saji Snider Interpretating Date/Time 03/19/2017 18:37:05
== END 2017-03-18 19:49 | disposition home or self-care (01) ==
LOC: NEPC 14:03
DX: R07.9 Chest pain, unspecified (principal); R19.7 Diarrhea, unspecified; R11.0 Nausea; E83.51 Hypocalcemia; R94.31 Abnormal electrocardiogram [ECG] [EKG]; D64.9 Anemia, unspecified; K74.60 Unspecified cirrhosis of liver; R56.9 Unspecified convulsions; Z21 Asymptomatic human immunodeficiency virus [HIV] infection status
CPT/HCPCS: 80048; 84155; 85007; 85027; 93005; 96361; 96374; 99284; J2405; J7030

== ENCOUNTER 2017-03-24 08:07 | Emergency (ER) | payer MEDICARE, MEDICAID ==
[~2017-03-24] VITALS: Ht 162.6 cm; Wt 47.0 kg
[2017-03-24] MEDS ORDERED: IOHEXOL 350 MG/ML 10 ML VIAL (for RAD DIAG) IVCONTRAST ONE (08:08)
[2017-03-24 08:09] VITALS: BP 89/51; PULSE 86; RESP 24; TEMP 98.6
[2017-03-24 08:28] VITALS: BP 117/60; PULSE 86; RESP 20; O2SAT 97
[2017-03-24] MEDS ORDERED: SODIUM CHLOR 0.9% 1000 ML INJ 1,000 ML IV SCH (08:37)
[2017-03-24] MEDS ORDERED: SODIUM CHLORIDE 0.9% FLUSH 10 ML FLUSH IV FLUSH PRN (08:45)
[2017-03-24] MEDS ORDERED: MORPHINE SULFATE 4 MG/ML INJ IV PUSH ONE (08:45)
[2017-03-24] MEDS ORDERED: ONDANSETRON HCL 4 MG/2 ML VIAL IVP ONE (08:45)
[2017-03-24 09:01] LABS: AUTOMATED NEUTROPHIL # 6.1 TH/MM3 (1.8-7.7); BASOPHIL # 0.1 TH/MM3 (0-0.2); EOSINOPHIL # 0.2 TH/MM3 (0-0.4); HEMATOCRIT 28.6 % (35.0-46.0); HEMO FLAGS DIFF FINAL; LYMPH % 11.4 % (9.0-44.0); LYMPHOCYTE # 0.9 TH/MM3 (1.0-4.8); MEAN CELL VOLUME 97.3 FL (80.0-100.0); MEAN CORPUSCULAR HEMOGLOBIN 31.3 PG (27.0-34.0); MEAN CORPUSCULAR HGB CONC 32.1 % (32.0-36.0); MONO % 4.7 % (0.0-8.0); NEUT % 80.9 % (16.0-70.0); PLATELET COUNT 110 TH/MM3 (150-450); RED BLOOD COUNT 2.94 MIL/MM3 (4.00-5.30); RED CELL DISTRIBUTION WIDTH 17.7 % (11.6-17.2); WHITE BLOOD COUNT 7.6 TH/MM3 (4.0-11.0)
--- NOTE | 2017-03-24 09:01 | PD ---
HPI Chief Complaint: Abdominal Pain Time Seen by Provider: 08:25 Travel History International Travel<30 days: No Contact w/Intl Traveler<30days: No Traveled to known affect area: No History of Present Illness HPI Patient is a 52-year-old female with history of HIV/AIDS, recurrent C. difficile infection, liver cirrhosis with ascites and portal hypertension with possible esophageal varices, history of GI bleed with gastritis, CVA 2, probable coronary artery disease, presents to emergency room with complaints of diffuse abdominal pain with nausea, vomiting and diarrhea. Patient reports that she drank some beers last night around 11 PM and shortly thereafter, began to have severe abdominal pain with diarrhea. She reports that she has had about 5-6 episodes of watery diarrhea with streaks of blood in it. Patient reports that she had episode of nausea and vomiting this morning. Patient reports that she is currently being treated for C. difficile colitis and is taking vancomycin by mouth, she was admitted to the hospital recently on January for abdominal pain with diagnosis of C. difficile colitis. At that time , she was seen by infectious disease, was placed on vancomycin orally and was told to follow-up with her infectious disease doctor as an outpatient. Patient' s infectious disease doctor is Dr. Hummel. Patient is unsure of her CD4 count - reports that she has been taking all her antiretrovirals. Patient also reports that she has seen process engineer at [facility] past and has had a colonoscopy, patient unsure what her colonoscopy showed an when she had her procedure. Patient with no fevers or chills, no chest pain or shortness of breath at this time. PFSH Past Medical History Hx Anticoagulant Therapy: No Arthritis: No Asthma: No Autoimmune Disease: Yes Blood Disorders: Yes Anxiety: No Depression: No Heart Rhythm Problems: No Cancer: No Cardiomyopathy: No Cardiovascular Problems: No High Cholesterol: No Chemotherapy: No Chest Pain: No Congestive Heart Failure: No Cirrhosis: Yes COPD: No Cerebrovascular Accident: Yes (x2) Diabetes: No Diminished Hearing: No Endocrine: No Gastrointestinal Disorders: Yes GERD: No Genitourinary: Yes Headaches: Yes Hiatal Hernia: No Hypertension: No Immune Disorder: Yes Kidney Stones: No Musculoskeletal: Yes Neurologic: Yes Psychiatric: No Reproductive: No Respiratory: No Migraines: Yes Radiation Therapy: No Renal Failure: No Seizures: Yes Sickle Cell Disease: No Sleep Apnea: No Thyroid Disease: No Ulcer: No Influenza Vaccination: No ?: Not Menopausal: Yes : 2 Para: 0 Miscarriage: 1 : 1 Ectopic : Yes Ovarian Cysts: Yes Past Surgical History Abdominal Surgery: Yes (EXP. LAP.) AICD: No Arteriovenous Shunt: No Cardiac Surgery: No Section: Yes Ear Surgery: No Endocrine Surgery: No Eye Surgery: No Genitourinary Surgery: No Gynecologic Surgery: Yes Hysterectomy: No Insulin Pump: No Joint Replacement: No Oral Surgery: No Pacemaker: No Thoracic Surgery: No Other Surgery: Yes (, ectopic ) Social History Alcohol Use: Yes ([place]) Tobacco Use: No Substance Use: No Allergies-Medications (Allergen,Severity, Reaction): Coded Allergies: No Known Allergies (Verified , 03/24/17) Reported Meds & Prescriptions Reported Meds & Active Scripts Active Vancomycin Inj (Vancomycin HCl) 500 Mg Inj 500 Mg PO Q6HR 45 Days Metoprolol Tartrate 25 Mg Tab 12.5 Mg PO Q12HR Aspirin Low Strength (Aspirin) 81 Mg Chew 81 Mg CHEW DAILY Dicyclomine (Dicyclomine HCl) 20 Mg Tab 20 Mg PO TID PRN Acidophilus/l-Sporogenes (Lactobacillus Acidophilus) 1 Tab Tab 1 Tab PO TID Zofran (Ondansetron HCl) 4 Mg Tab 4 Mg PO Q6HR PRN Tramadol (Tramadol HCl) 50 Mg Tab 50 Mg PO Q6H PRN Azithromycin 600 Mg Tab 1,200 Mg PO Q7D 30 Days Reported Mepron Liq (Atovaquone) 750 Mg/5 Ml Susp 1,500 Mg PO DAILY Take with food. Fluconazole 100 Mg Tab 100 Mg PO DAILY 21 Days Prezcobix (Darunavir-Cobicistat) 800-150 Mg Tab 1 Tab PO DAILY Triumeq (Odkjdnky-Jklrfxrojwpq-Lqjfhpzmla) 600-50-300 Mg Tab 1 Tab PO DAILY Hazardous agent; use appropriate precautions for handling & disposal. Review of Systems General / Constitutional: No: Fever Eyes: No: Visual changes HENT: No: Headaches Cardiovascular: No: Chest Pain or Discomfort Respiratory: No: Shortness of Breath Gastrointestinal: Positive: Nausea, Vomiting, Diarrhea, Abdominal Pain, Hematochezia Genitourinary: No: Dysuria Musculoskeletal: No: Pain Skin: No Rash Neurologic: No: Weakness Psychiatric: No: Depression Endocrine: No: Polydipsia Hematologic/Lymphatic: No: Easy Bruising Physical Exam Narrative GENERAL: Moderate distress SKIN: Focused skin assessment warm/dry. HEAD: Atraumatic. Normocephalic. EYES: Pupils equal and round. No scleral icterus. No injection or drainage. ENT: No nasal bleeding or discharge. Mucous membranes pink and moist. NECK: Trachea midline. No JVD. CARDIOVASCULAR: Regular rate and rhythm. No murmur appreciated. RESPIRATORY: No accessory muscle use. Clear to auscultation. Breath sounds equal bilaterally. GASTROINTESTINAL: Abdomen soft, diffusely tender, nondistended. Hepatic and splenic margins not palpable. Yellow stool with streaks of bright red blood, HEME positive MUSCULOSKELETAL: No obvious deformities. No clubbing. No cyanosis. No edema. NEUROLOGICAL: Awake and alert. No obvious cranial nerve deficits. Motor grossly within normal limits. Normal speech. PSYCHIATRIC: Appropriate mood and affect; insight and judgment normal. Data Data Last Documented VS Vital Signs Date Time Temp Pulse Resp B/P (MAP) Pulse Ox O2 Delivery O2 Flow Rate FiO2 03/24/17 11:07 91 19 133/70 (91) 96 Room Air 03/24/17 08:09 98.6 Orders Orders Complete Blood Count With Diff (03/24/17 08:37) Comprehensive Metabolic Panel (03/24/17 08:37) Lipase (03/24/17 08:37) Prothrombin Time / Inr (Pt) (03/24/17 08:37) Act Partial Throm Time (Ptt) (03/24/17 08:37) Urinalysis - C+S If Indicated (03/24/17 08:37) Ct Abd/Pel W Iv Contrast(Rout) (03/24/17 08:37) Iv Access Insert/Monitor (03/24/17 08:37) Ecg Monitoring (03/24/17 08:37) NPO (03/24/17 08:37) Morphine Inj (Morphine Inj) (03/24/17 08:45) Ondansetron Inj (Zofran Inj) (03/24/17 08:45) Sodium Chlor 0.9% 1000 Ml Inj (Ns 1000 M (03/24/17 08:37) Sodium Chloride 0.9% Flush (Ns Flush) (03/24/17 08:45) C Diff Toxin Pcr (03/24/17 08:37) Isolation 08,20 (03/24/17 08:44) Equip, Isolation Cart (03/24/17 08:44) Vascular Access Team Consult/P PRN (03/24/17 08:57) Vascular Poc Ultrasound (03/24/17 ) Iohexol 350 Inj (Omnipaque 350 Inj) (03/24/17 08:08) Labs Laboratory Tests Test 03/24/17 08:40 03/24/17 08:50 White Blood Count 7.6 TH/MM3 Red Blood Count 2.94 MIL/MM3 Hemoglobin 9.2 GM/DL Hematocrit 28.6 % Mean Corpuscular Volume 97.3 FL Mean Corpuscular Hemoglobin 31.3 PG Mean Corpuscular Hemoglobin Concent 32.1 % Red Cell Distribution Width 17.7 % Platelet Count 110 TH/MM3 Mean Platelet Volume 9.7 FL Neutrophils (%) (Auto) 80.9 % Lymphocytes (%) (Auto) 11.4 % Monocytes (%) (Auto) 4.7 % Eosinophils (%) (Auto) 2.0 % Basophils (%) (Auto) 1.0 % Neutrophils # (Auto) 6.1 TH/MM3 Lymphocytes # (Auto) 0.9 TH/MM3 Monocytes # (Auto) 0.4 TH/MM3 Eosinophils # (Auto) 0.2 TH/MM3 Basophils # (Auto) 0.1 TH/MM3 CBC Comment DIFF FINAL Differential Comment Prothrombin Time 13.3 SEC Prothromb Time International Ratio 1.2 RATIO Activated Partial Thromboplast Time 30.0 SEC Blood Urea Nitrogen 8 MG/DL Creatinine 0.94 MG/DL Random Glucose 91 MG/DL Total Protein 9.1 GM/DL Albumin 1.7 GM/DL Calcium Level 7.7 MG/DL Alkaline Phosphatase 152 U/L Aspartate Amino Transf (AST/SGOT) 77 U/L Alanine Aminotransferase (ALT/SGPT) 22 U/L Total Bilirubin 0.5 MG/DL Sodium Level 140 MEQ/L Potassium Level 4.5 MEQ/L Chloride Level 111 MEQ/L Carbon Dioxide Level 21.2 MEQ/L Anion Gap 8 MEQ/L Estimat Glomerular Filtration Rate 75 ML/MIN Lipase 161 U/L Stool C. difficile Toxin (PCR) POSITIVE Stl C. difficile Toxin Epiderm 027 PRESUMPTIVE POSITIVE MDM Medical Decision Making Medical Screen Exam Complete: Yes Emergency Medical Condition: Yes Interpretation(s) Vital Signs Date Time Temp Pulse Resp B/P (MAP) Pulse Ox O2 Delivery O2 Flow Rate FiO2 03/24/17 08:28 86 20 117/60 (79) 97 Room Air 03/24/17 08:09 98.6 86 24 89/51 (64) Room Air Differential Diagnosis Differential includes C. difficile colitis, gastroenteritis, gastritis, electrolyte abnormality Narrative Course Patient is a 52-year-old female with known history of recurrent C. difficile colitis currently on by oral vancomycin, presents to emergency room with complaints of severe diffuse abdominal pain with nausea vomiting and diarrhea. Patient was placed on C. diff precautions upon arrival to emergency room. She has diffuse abdominal pain - stool is yellow - heme positive. IV fluids, antiemetics and pain medications ordered. Lab work including CBC, CMP, and ct of abdomen and pelvis ordered to further evaluate abdominal pain. Patient was placed on gettering operator, will continue to observe patient Vital Signs Date Time Temp Pulse Resp B/P (MAP) Pulse Ox O2 Delivery O2 Flow Rate FiO2 03/24/17 11:07 91 19 133/70 (91) 96 Room Air 03/24/17 08:28 86 20 117/60 (79) 97 Room Air 03/24/17 08:09 98.6 86 24 89/51 (64) Room Air Laboratory Tests Test 03/24/17 08:40 03/24/17 08:50 White Blood Count 7.6 TH/MM3 (4.0-11.0) Red Blood Count 2.94 MIL/MM3 (4.00-5.30) Hemoglobin 9.2 GM/DL (11.6-15.3) Hematocrit 28.6 % (35.0-46.0) Mean Corpuscular Volume 97.3 FL (80.0-100.0) Mean Corpuscular Hemoglobin 31.3 PG (27.0-34.0) Mean Corpuscular Hemoglobin Concent 32.1 % (32.0-36.0) Red Cell Distribution Width 17.7 % (11.6-17.2) Platelet Count 110 TH/MM3 (150-450) Mean Platelet Volume 9.7 FL (7.0-11.0) Neutrophils (%) (Auto) 80.9 % (16.0-70.0) Lymphocytes (%) (Auto) 11.4 % (9.0-44.0) Monocytes (%) (Auto) 4.7 % (0.0-8.0) Eosinophils (%) (Auto) 2.0 % (0.0-4.0) Basophils (%) (Auto) 1.0 % (0.0-2.0) Neutrophils # (Auto) 6.1 TH/MM3 (1.8-7.7) Lymphocytes # (Auto) 0.9 TH/MM3 (1.0-4.8) Monocytes # (Auto) 0.4 TH/MM3 (0-0.9) Eosinophils # (Auto) 0.2 TH/MM3 (0-0.4) Basophils # (Auto) 0.1 TH/MM3 (0-0.2) CBC Comment DIFF FINAL Differential Comment Prothrombin Time 13.3 SEC (9.8-11.6) Prothromb Time International Ratio 1.2 RATIO Activated Partial Thromboplast Time 30.0 SEC (24.3-30.1) Blood Urea Nitrogen 8 MG/DL (7-18) Creatinine 0.94 MG/DL (0.50-1.00) Random Glucose 91 MG/DL (74-106) Total Protein 9.1 GM/DL (6.4-8.2) Albumin 1.7 GM/DL (3.4-5.0) Calcium Level 7.7 MG/DL (8.5-10.1) Alkaline Phosphatase 152 U/L (45-117) Aspartate Amino Transf (AST/SGOT) 77 U/L (15-37) Alanine Aminotransferase (ALT/SGPT) 22 U/L (10-53) Total Bilirubin 0.5 MG/DL (0.2-1.0) Sodium Level 140 MEQ/L (136-145) Potassium Level 4.5 MEQ/L (3.5-5.1) Chloride Level 111 MEQ/L (98-107) Carbon Dioxide Level 21.2 MEQ/L (21.0-32.0) Anion Gap 8 MEQ/L (5-15) Estimat Glomerular Filtration Rate 75 ML/MIN (>89) Lipase 161 U/L (73-393) Stool C. difficile Toxin (PCR) POSITIVE (NEGATIVE) Stl C. difficile Toxin Epiderm 027 PRESUMPTIVE POSITIVE Last Impressions Abdomen/Pelvis CT 03/24/17 0837 Signed Impressions: Service Date/Time: February 14:07 - CONCLUSION: 1. Cirrhosis again visualized. There is a small amount of surrounding ascitic fluid. 2. Multiple splenic varices again noted. 3. Unremarkable appearing bowel gas pattern. No oral contrast was given limiting the sensitivity. Rad Cueto MD I reviewed all labs and studies along with incidental findings with patient in detail, patient currently being treated with vanco for c.diff. Patient understands importance of completion of full course of antibiotics she will follow-up with her primary care doctor as well as her infectious disease doctor and will return to emergency room as needed. Patient reports that she is feeling much better at this time and request to be discharged. Diagnosis Primary Impression: Abdominal pain Additional Impression: C. difficile colitis Patient Instructions: General Instructions, Narcotic given in the ED Additional Instructions: Please follow-up with your infection disease doctor as well as your primary care doctor Please return to ER as needed or if symptoms worsen or progress Please drink plenty of fluids Please follow up with all cultures from today Take all medications as prescribed Disposition: 01 DISCHARGE HOME Condition: Stable Ct Fuchs DO Mar 24, 2017 09:01
[2017-03-24 09:07] LABS: INTERNATIONAL NORMALIZED RATIO 1.2 RATIO; PROTHROMBIN TIME - PATIENT 13.3 SEC (9.8-11.6)
[2017-03-24 09:14] LABS: ALKALINE PHOSPHATASE 152 U/L (45-117); TOTAL BILIRUBIN ADULT 0.5 MG/DL (0.2-1.0)
[2017-03-24 09:15] LABS: ALT (GPT) 22 U/L (10-53); ANION GAP 8 MEQ/L (5-15); AST (GOT) 77 U/L (15-37); BICARBONATE 21.2 MEQ/L (21.0-32.0); BLOOD UREA NITROGEN 8 MG/DL (7-18); CHLORIDE 111 MEQ/L (98-107); GLOMERULAR FILTRATION RATE 75 ML/MIN (>89); SODIUM (NA) 140 MEQ/L (136-145)
[2017-03-24 09:22] LABS: POTASSIUM 4.5 MEQ/L (3.5-5.1)
[2017-03-24 11:07] VITALS: BP 133/70; PULSE 91; RESP 19; O2SAT 96
[2017-03-24 11:58] LABS: C. DIFF EPI 027 PRESUMPTIVE POSITIVE (NEGATIVE)
--- NOTE | 2017-03-24 14:36 | RADRPT ---
EXAM DATE/TIME: 03/24/2017 14:07 [facility] COMPARISON: CT ABDOMEN & PELVIS W CONTRAST, February 04, 2017, 13:54. INDICATIONS : Abdominal pain and blood in stool. Cirrhosis and portal venous hypertension. IV CONTRAST: 90 cc Omnipaque 350 (iohexol) IV ORAL CONTRAST: No oral contrast ingested. RADIATION DOSE: 9.96 CTDIvol (mGy) MEDICAL HISTORY : HIV. Cirrhosis. Ovarian cysts, ectopic . SURGICAL HISTORY : section. Exploratory laparoscopy. ENCOUNTER: Initial ACUITY: 1 day PAIN SCALE: 4/10 LOCATION: Bilateral lower quadrant TECHNIQUE: Volumetric scanning of the abdomen and pelvis was performed. Using automated exposure control and ad justment of the mA and/or kV according to patient size, radiation dose was kept as low as reasonably achievable to obtain optimal diagnostic quality images. DICOM format image data is available electro nically for review and comparison. FINDINGS: LOWER LUNGS: Atelectasis is noted in the dependent portions of the lung bases left greater than right. LIVER: The liver remains mildly cirrhotic in appearance with lobular contours. There is no focal mass or helen darcy dilatation. The gallbladder appears unremarkable. There is a small amount of surrounding ascitic fluid. SPLEEN: Normal size without lesion. Multiple splenic varices are again noted. PANCREAS: Within normal limits. KIDNEYS: Normal in size and shape. There is no mass, stone or hydronephrosis. ADRENAL GLANDS: Within normal limits. VASCULAR: There is no aortic aneurysm. BOWEL/MESENTERY: No oral contrast was given limiting the sensitivity of the exam. There is mild motion artifact. The s tomach, small bowel, and colon demonstrate no acute abnormality. There is no free intraperitoneal ai r. ABDOMINAL WALL: Within normal limits. RETROPERITONEUM: There is no lymphadenopathy. BLADDER: No wall thickening or mass. REPRODUCTIVE: Within normal limits. INGUINAL: There is no lymphadenopathy or hernia. MUSCULOSKELETAL: Within normal limits for patient age. CONCLUSION: 1. Cirrhosis again visualized. There is a small amount of surrounding ascitic fluid. 2. Multiple splenic varices again noted. 3. Unremarkable appearing bowel gas pattern. No oral contrast was given limiting the sensitivity. Rad Cueto MD on March 24, 2017 at 14:29 Board Certified Radiologist. This report was verified electronically.
[2017-03-24 15:00] VITALS: BP 122/68; PULSE 95; RESP 19; O2SAT 98
== END 2017-03-24 15:30 | disposition home or self-care (01) ==
LOC: NEPC 08:07
DX: A04.7 Enterocolitis due to Clostridium difficile (principal); K74.60 Unspecified cirrhosis of liver; R56.9 Unspecified convulsions; R18.8 Other ascites; K76.6 Portal hypertension; Z79.82 Long term (current) use of aspirin; Z86.73 Personal history of transient ischemic attack (TIA), and cerebral infarction without residual deficits; Z21 Asymptomatic human immunodeficiency virus [HIV] infection status; Z79.899 Other long term (current) drug therapy
CPT/HCPCS: 74177; 80053; 83690; 85025; 85610; 85730; 87493; 96361; 96374; 96375; 99285; J2270; J2405; J7030; Q9967

== ENCOUNTER 2017-03-27 09:53 | Inpatient (IN) | payer MEDICARE, MEDICAID ==
[2017-03-27 09:57] VITALS: BP 131/72; PULSE 99; RESP 20; TEMP 98.5; O2SAT 97
[2017-03-27 10:11] VITALS: BP 115/53; PULSE 93; RESP 30; O2SAT 100
[2017-03-27] MEDS ORDERED: SODIUM CHLOR 0.9% 1000 ML INJ 1,000 ML IV SCH (10:30)
[2017-03-27] MEDS ORDERED: metroNIDAZOLE 500 MG INJ 100 ML IV ONE (10:30)
--- NOTE | 2017-03-27 10:40 | PD ---
HPI Chief Complaint: GI Complaint Time Seen by Provider: 10:29 Travel History International Travel<30 days: No Contact w/Intl Traveler<30days: No Traveled to known affect area: No History of Present Illness HPI HAS HAD DIARRHEA FOR ABOUT A MONTH, BUT NOW HAS 2 DAYS OF DIFFUSE ABD CRAMPING ASSOC WITH IT, 01/31, NONRAD, [place]/ WELL PFSH Past Medical History Hx Anticoagulant Therapy: No Arthritis: No Asthma: No Autoimmune Disease: Yes Blood Disorders: Yes Anxiety: No Depression: No Heart Rhythm Problems: No Cancer: No Cardiomyopathy: No Cardiovascular Problems: No High Cholesterol: No Chemotherapy: No Chest Pain: No Congestive Heart Failure: No Cirrhosis: Yes COPD: No Cerebrovascular Accident: Yes (x2) Diabetes: No Diminished Hearing: No Endocrine: No Gastrointestinal Disorders: Yes GERD: No Genitourinary: Yes Headaches: Yes Hiatal Hernia: No Hypertension: No Immune Disorder: Yes Implanted Vascular Access Dvce: No Kidney Stones: No Medical other: Yes (AIDS, C-diff) Musculoskeletal: Yes Neurologic: Yes Psychiatric: No Reproductive: No Respiratory: No Migraines: Yes Radiation Therapy: No Renal Failure: No Seizures: Yes Sickle Cell Disease: No Sleep Apnea: No Thyroid Disease: No Ulcer: No ?: Not Menopausal: Yes : 2 Para: 0 Miscarriage: 1 : 1 Ectopic : Yes Ovarian Cysts: Yes Past Surgical History Abdominal Surgery: Yes (EXP. LAP.) AICD: No Arteriovenous Shunt: No Cardiac Surgery: No Section: Yes Ear Surgery: No Endocrine Surgery: No Eye Surgery: No Genitourinary Surgery: No Gynecologic Surgery: Yes Hysterectomy: No Insulin Pump: No Joint Replacement: No Neurologic Surgery: No Oral Surgery: No Pacemaker: No Thoracic Surgery: No Other Surgery: Yes (, ectopic ) Social History Alcohol Use: Yes ([place]) Tobacco Use: No (8 yrs ago) Substance Use: No Allergies-Medications (Allergen,Severity, Reaction): Coded Allergies: No Known Allergies (Verified , 03/24/17) Reported Meds & Prescriptions Reported Meds & Active Scripts Active Vancomycin Inj (Vancomycin HCl) 500 Mg Inj 500 Mg PO Q6HR 45 Days Metoprolol Tartrate 25 Mg Tab 12.5 Mg PO Q12HR Aspirin Low Strength (Aspirin) 81 Mg Chew 81 Mg CHEW DAILY Dicyclomine (Dicyclomine HCl) 20 Mg Tab 20 Mg PO TID PRN Acidophilus/l-Sporogenes (Lactobacillus Acidophilus) 1 Tab Tab 1 Tab PO TID Zofran (Ondansetron HCl) 4 Mg Tab 4 Mg PO Q6HR PRN Tramadol (Tramadol HCl) 50 Mg Tab 50 Mg PO Q6H PRN Azithromycin 600 Mg Tab 1,200 Mg PO Q7D 30 Days Reported Mepron Liq (Atovaquone) 750 Mg/5 Ml Susp 1,500 Mg PO DAILY Take with food. Fluconazole 100 Mg Tab 100 Mg PO DAILY 21 Days Prezcobix (Darunavir-Cobicistat) 800-150 Mg Tab 1 Tab PO DAILY Triumeq (Opkiliow-Rdlpanltesfv-Dplgutvbeq) 600-50-300 Mg Tab 1 Tab PO DAILY Hazardous agent; use appropriate precautions for handling & disposal. Review of Systems Except as stated in HPI: all other systems reviewed are Neg Gastrointestinal: Positive: Nausea, Vomiting, Diarrhea, Abdominal Pain Physical Exam Narrative GENERAL: SKIN: Warm and dry. HEAD: Atraumatic. Normocephalic. EYES: Pupils equal and round. No scleral icterus. No injection or drainage. ENT: No nasal bleeding or discharge. Mucous membranes pink and moist. NECK: Trachea midline. No JVD. CARDIOVASCULAR: Regular rate and rhythm. RESPIRATORY: No accessory muscle use. Clear to auscultation. Breath sounds equal bilaterally. GASTROINTESTINAL: Abdomen soft, MILD DIFFUSE TTP, nondistended. MUSCULOSKELETAL: Extremities without clubbing, cyanosis, or edema. No obvious deformities. NEUROLOGICAL: Awake and alert. No obvious cranial nerve deficits. Motor grossly within normal limits. Five out of 5 muscle strength in the arms and legs. Normal speech. PSYCHIATRIC: Appropriate mood and affect; insight and judgment normal. Data Data Last Documented VS Vital Signs Date Time Temp Pulse Resp B/P (MAP) Pulse Ox O2 Delivery O2 Flow Rate FiO2 03/27/17 10:11 93 30 115/53 (73) 100 03/27/17 09:57 98.5 Orders Orders Complete Blood Count With Diff (03/27/17 10:30) Comprehensive Metabolic Panel (03/27/17 10:30) Lipase (03/27/17 10:30) Urinalysis - C+S If Indicated (03/27/17 10:30) Iv Access Insert/Monitor (03/27/17 10:30) Ecg Monitoring (03/27/17 10:30) NPO (03/27/17 10:30) Metronidazole 500 Mg Inj (Flagyl 500 Mg (03/27/17 10:30) Sodium Chlor 0.9% 1000 Ml Inj (Ns 1000 M (03/27/17 10:30) Ct Abd/Pel W/O Iv Contrast (03/27/17 10:40) Enteric Path (Stool) (03/27/17 10:40) C Diff Toxin Pcr (03/27/17 10:40) Giardia Antigen (Stool) (03/27/17 10:40) Stool Ova And Parasite Screen (03/27/17 10:40) Stool Wbc (Leukocytes) (03/27/17 10:40) Calcium Gluconate Inj (Calcium Gluconate (03/27/17 12:30) Labs Laboratory Tests Test 03/27/17 11:00 White Blood Count 4.6 TH/MM3 Red Blood Count 3.12 MIL/MM3 Hemoglobin 10.0 GM/DL Hematocrit 30.1 % Mean Corpuscular Volume 96.5 FL Mean Corpuscular Hemoglobin 32.2 PG Mean Corpuscular Hemoglobin Concent 33.4 % Red Cell Distribution Width 16.7 % Platelet Count 113 TH/MM3 Mean Platelet Volume 10.3 FL Neutrophils (%) (Auto) 82.3 % Lymphocytes (%) (Auto) 6.9 % Monocytes (%) (Auto) 7.5 % Eosinophils (%) (Auto) 2.3 % Basophils (%) (Auto) 1.0 % Neutrophils # (Auto) 3.8 TH/MM3 Lymphocytes # (Auto) 0.3 TH/MM3 Monocytes # (Auto) 0.3 TH/MM3 Eosinophils # (Auto) 0.1 TH/MM3 Basophils # (Auto) 0.0 TH/MM3 CBC Comment DIFF FINAL Differential Comment Blood Urea Nitrogen 11 MG/DL Creatinine 1.00 MG/DL Random Glucose 72 MG/DL Total Protein 8.8 GM/DL Albumin 1.6 GM/DL Calcium Level 7.3 MG/DL Alkaline Phosphatase 117 U/L Aspartate Amino Transf (AST/SGOT) 58 U/L Alanine Aminotransferase (ALT/SGPT) 18 U/L Total Bilirubin 0.6 MG/DL Sodium Level 140 MEQ/L Potassium Level 4.1 MEQ/L Chloride Level 112 MEQ/L Carbon Dioxide Level 19.5 MEQ/L Anion Gap 9 MEQ/L Estimat Glomerular Filtration Rate 70 ML/MIN Protein Corrected Calcium 6.6 MG/DL Lipase 605 U/L [facility] Medical Decision Making Medical Screen Exam Complete: Yes Emergency Medical Condition: Yes Medical Record Reviewed: Yes Differential Diagnosis C DIFF V COLITIS V DIVERTIC V PROTOZOA V PANCREATITIS Narrative Course PT SEEN AND TREATED WITH HYDRATION, PAIN CONTROL AND ASKED FOR STOOL SPECIMEN, NOT YET PROVIDED... Diagnosis Primary Impression: ACUTE PANCREATITIS Additional Impression: Hypocalcemia Admitting Information Admitting Physician Requests: Observation Reymundo Emmanuel MD Mar 27, 2017 10:40
[2017-03-27 11:34] LABS: AUTOMATED NEUTROPHIL # 3.8 TH/MM3 (1.8-7.7); EOSINOPHIL # 0.1 TH/MM3 (0-0.4); EOSINOPHIL % 2.3 % (0.0-4.0); HEMATOCRIT 30.1 % (35.0-46.0); HEMO FLAGS DIFF FINAL; LYMPH % 6.9 % (9.0-44.0); LYMPHOCYTE # 0.3 TH/MM3 (1.0-4.8); MEAN CELL VOLUME 96.5 FL (80.0-100.0); MEAN CORPUSCULAR HEMOGLOBIN 32.2 PG (27.0-34.0); MEAN CORPUSCULAR HGB CONC 33.4 % (32.0-36.0); MONO % 7.5 % (0.0-8.0); NEUT % 82.3 % (16.0-70.0); PLATELET COUNT 113 TH/MM3 (150-450); RED BLOOD COUNT 3.12 MIL/MM3 (4.00-5.30); RED CELL DISTRIBUTION WIDTH 16.7 % (11.6-17.2); WHITE BLOOD COUNT 4.6 TH/MM3 (4.0-11.0)
[2017-03-27 11:47] LABS: BICARBONATE 19.5 MEQ/L (21.0-32.0); POTASSIUM 4.1 MEQ/L (3.5-5.1); TOTAL BILIRUBIN ADULT 0.6 MG/DL (0.2-1.0)
[2017-03-27 11:51] LABS: CALCIUM-PROTEIN CORRECTED 6.6 MG/DL (8.5-10.1)
--- NOTE | 2017-03-27 11:58 | RADRPT ---
EXAM DATE/TIME: 03/27/2017 11:43 [facility] COMPARISON: CT ABDOMEN & PELVIS W/O CONTRAST, January 01, 2017, 12:14. INDICATIONS : Abdominal pain. ORAL CONTRAST: No oral contrast ingested. RADIATION DOSE: 4.52 CTDIvol (mGy) MEDICAL HISTORY : Cirrhosis. HIV,Body aches. SURGICAL HISTORY : Etopic ENCOUNTER: Initial ACUITY: 2 weeks PAIN SCALE: 8/10 LOCATION: Bilateral abdomen TECHNIQUE: Volumetric scanning of the abdomen and pelvis was performed. Using automated exposure control and ad justment of the mA and/or kV according to patient size, radiation dose was kept as low as reasonably achievable to obtain optimal diagnostic quality images. DICOM format image data is available electro nically for review and comparison. FINDINGS: There is linear atelectasis at the left lung base. There are degenerative changes of the spine noted and atherosclerotic calcification of the aorta and iliac vessels. No pleural or pericardial effusions . There is a cirrhotic appearing liver with ascites, borderline splenomegaly and numerous varices in the left upper quadrant, gastrohepatic ligament. Pancreas, left kidney, adrenals are unremarkable. Ga llbladder unremarkable. Urinary bladder uterus and ovaries are unremarkable. Small amount of free flu id in the pelvis. There is fluid tracking along the paracolic gutters. Appendix is normal. The right kidney demonstrates 2 hyperdense areas including at the mid pole laterally measuring 8.4 mm and anter iorly measuring 8.7 mm on image 26 likely hemorrhagic or pernicious cysts. There also 2 areas of high attenuation of the right lower pole kidney measuring 1.6 and 1.5 cm likely hemorrhagic or proteinace ous cysts. CONCLUSION: 1. Cirrhosis and portal hypertension with ascites and varices identified. Joe Palma MD on March 27, 2017 at 11:54 Board Certified Radiologist. This report was verified electronically.
[2017-03-27] MEDS ORDERED: CALCIUM GLUCONATE INJ 2 GM in SODIUM CHLORIDE 0.9% INJ 100 ML IV ONE (12:30)
[2017-03-27] MEDS ORDERED: HYDROmorphone HCL PF 1 MG/ML VIAL IV PUSH ONE (13:30)
[2017-03-27 13:34] VITALS: BP 119/70; PULSE 96; RESP 18; TEMP 101.6; O2SAT 97
[2017-03-27] MEDS ORDERED: SENNOSIDES 8.6 MG TAB PO PRN (14:00)
[2017-03-27] MEDS ORDERED: PROCHLORPERAZINE 25 MG SUPP RECTAL PRN (14:00)
[2017-03-27] MEDS ORDERED: ONDANSETRON HCL 4 MG/2 ML VIAL IVP PRN (14:00)
[2017-03-27] MEDS ORDERED: MORPHINE SULFATE 4 MG/ML INJ IV PRN ×2 (14:00)
[2017-03-27] MEDS ORDERED: ZOLPIDEM TARTRATE 5 MG TAB PO PRN (14:00)
[2017-03-27] MEDS ORDERED: SODIUM CHLORIDE 0.9% FLUSH 10 ML FLUSH IV FLUSH PRN ×2 (14:00)
[2017-03-27] MEDS ORDERED: NALOXONE HCL 0.4 MG/ML AMP IV PRN (14:00)
[2017-03-27] MEDS ORDERED: BISACODYL 10 MG SUPP RECTAL PRN (14:00)
[2017-03-27] MEDS ORDERED: LACTULOSE SYRUP 20 GM/30 ML CUP PO PRN (14:00)
[2017-03-27] MEDS ORDERED: ACETAMINOPHEN 325 MG TAB PO PRN (14:00)
[2017-03-27] MEDS ORDERED: MAGNESIUM HYDROXIDE SUSP 30 ML CUP PO PRN (14:00)
[2017-03-27 14:05] LABS: BACTERIA, URINE MOD /hpf; BLOOD, URINE MOD (NEG); COMMENT (UR) CULTURE INDICATED; CULTURE IF INDICATED CULTURE INDICATED; GLUCOSE,URINE NEG (NEG); KETONE, URINE NEG (NEG); NITRITE,URINE POS (NEG); URINE COLOR YELLOW (YELLW/STRAW)
[2017-03-27] MEDS ORDERED: ONDANSETRON ODT 4 MG TAB PO PRN (15:15)
[2017-03-27] MEDS ORDERED: DICYCLOMINE HCL 20 MG TAB PO PRN (15:15)
[2017-03-27] MEDS ORDERED: traMADol HCL 50 MG TAB PO PRN (15:15)
[2017-03-27] MEDS ORDERED: PILL SPLITTER OTHER PRN (15:30)
[2017-03-27 15:45] LABS: C. DIFF EPI 027 PRESUMPTIVE POSITIVE (NEGATIVE)
[2017-03-27] MEDS ORDERED: AZITHROMYCIN 600 MG TAB PO SCH (16:00)
--- NOTE | 2017-03-27 16:13 | RADRPT ---
EXAM DATE/TIME: 03/27/2017 15:53 [facility] COMPARISON: CHEST PA & LAT, February 05, 2017, 15:40. CT PULMONARY ANGIOGRAM, February 06, 2017, 10:07. CHEST SINGLE AP , February 08, 2017, 22:22. INDICATIONS : Fever MEDICAL HISTORY : Cirrhosis. HIV, Body aches. SURGICAL HISTORY : Etopic ENCOUNTER: Initial ACUITY: 2 weeks PAIN SCORE: 0/10 LOCATION: Bilateral chest FINDINGS: A single AP portable semierect view of the chest was obtained and demonstrates patchy opacity in both lower lobes left greater than right. There is no distinct effusion. The heart size is at the upper l imits of normal. The soft tissues and bony thorax remain unremarkable with multiple overlying electro cardiogram leads again noted. CONCLUSION: Stable bibasilar patchy opacities. Rad Cueto MD on March 27, 2017 at 16:10 Board Certified Radiologist. This report was verified electronically.
[2017-03-27 16:28] VITALS: BP 96/54; PULSE 92; RESP 18; O2SAT 99
[2017-03-27] MEDS: D5-1/2 NS + KCL 20 MEQ INJ 1,000 ML IV SCH (16:30)
[2017-03-27] MEDS: ENOXAPARIN SODIUM 40 MG/0.4 ML SYRINGE SQ SCH (16:31)
--- NOTE | 2017-03-27 16:57 | MH ---
cc: VERO GARCIA MD, STEVEN DATE OF ADMISSION: 03/27/2017 ATTENDING PHYSICIAN: Dr. Yosef Antoine. REFERRING PHYSICIAN: Dr. Vero Garcia. CHIEF COMPLAINT: GI complaints. HISTORY OF PRESENT ILLNESS: This patient came in through the emergency department and was seen by the emergency room physician and was recommended for admission. The patient is a 52-year-old -[place] female with known history of HIV and AIDS who has been having diarrhea for about a month. She was here about two days and had diffuse abdominal cramping associated with nausea and vomiting and abdominal pain. The patient is not a very good historian and is not able to give much information. Everything was obtained from chart review. PAST MEDICAL HISTORY: 1. History of HIV and AIDS. 2. History of what sounds like questionable compliance. 3. History of cirrhosis. 4. History of cerebrovascular accidents x2. 5. History of headaches. 6. History of C. difficile toxin colitis. 7. History of stroke. 8. History of migraines. 9. History of possible seizures. 10. Previous exploratory laparotomy. 11. section. 12. Ectopic . SOCIAL HISTORY: Occasional alcohol. Denies any tobacco or illicit drug use. ALLERGIES: NO KNOWN DRUG ALLERGIES. MEDICATIONS AT HOME: 1. Vancomycin 500 q. 6 hours. 2. Metoprolol 12.5 milligrams twice a day. 3. Aspirin 81 milligrams daily. 4. Bentyl 20 milligrams three times a day. 5. Acidophilus one tab three times a day. 6. Zofran 4 milligrams PRN nausea. 7. Tramadol 50 milligrams p.o. q. 6 hours. 8. Azithromycin 600 milligrams two tabs every seven days. 9. Mepron liquid 750 / 5 mL, 1500 milligrams p.o. daily. 10. Fluconazole 100 milligrams p.o. daily. 11. Prezcobix 800 / 150 one p.o. daily. 12. TRIUMEQ 600-50-300 milligrams one p.o. daily. REVIEW OF SYSTEMS: A review of systems is really hard to obtain from the patient since the patient is not very with it at the moment but has had some nausea and vomiting diarrhea and abdominal pain. PHYSICAL EXAMINATION: VITAL SIGNS: When she came in, her temperature was 98.5 but has had a temperature over 101 now. Pulse is 93, respirations were 30, blood pressure is 115/53, pulse ox 100. GENERAL: She appears quite sick. HEAD, EYES, EARS, NOSE, THROAT: Her head is normocephalic, atraumatic. Pupils equal round reactive light and accommodation. No scleral icterus. No injection or drainage. Oral mucosa is slightly dry. Tongue is midline. NECK: The neck is supple. There is no JVD, no thyromegaly. No carotid bruits. HEART: Regular rate and rhythm, S1-S2. No S3-4. No heave. No thrill. No murmur. No rubs. No gallops. LUNGS: Clear to auscultation bilaterally. No wheezes, rales or rhonchi. ABDOMEN: Soft. Mild tenderness to palpation. Not distended. EXTREMITIES: No cyanosis, clubbing or edema. No obvious deformities. NEUROLOGICAL EXAMINATION: She is arousable. No obvious cranial nerve deficits. Motor is grossly within normal limits. Motor strength is about 4/5 in the upper extremities and lower extremities bilaterally. She is very lethargic. She has inappropriate mood and affect. Insight and judgment are abnormal at the moment. SKIN: Warm and dry and no obvious rashes. LABORATORY DATA: White blood cell count of 4.6, hemoglobin of 10.0, hematocrit 30.1, platelet count is 113,000 with leukopenia and anemia and thrombocytopenia. Her BUN is 11, creatinine is 1, random glucose is 72, total protein 8.8, albumin 1.6, calcium is 7.3. Alkaline phosphatase is 117, AST is 59, ALT is 18. Total bilirubin is 0.6. Sodium is 140, potassium 4.1, chloride is 112, carbon dioxide is 19.5, anion gap is 9. Estimated GFR is 70. Protein corrected calcium is only 6.6. Lipase is 605. RADIOLOGICAL STUDIES: Abdomen and pelvis shows portal hypertension with ascites and varices identified. IMPRESSION: Questionable C. difficile colitis versus colitis versus diverticulitis versus pancreatitis. She has been treated in the emergency department with hydration and pain control. Stool studies were done and she was found to have acute pancreatitis and hypocalcemia as well as HIV and AIDS and no having fevers. She is not very alert. She is very lethargic at this time. The patient is not able to tell me much as far as her history. Her medication reconciliation states she may be on Zithromax 1200 milligrams q. 7 days, Vancomycin 500 q. 6 if she is taking it, Fluconazole 100 milligrams p.o. daily, TRIUMEQ one p.o. daily, Prezcobix one p.o. daily, Mepron liquid 1500 mL daily, Bentyl 20 milligrams three times a day PRN, metoprolol 12.5 milligrams twice a day, aspirin 81 milligrams daily, Tramadol 50 milligrams q. 6 hours, Zofran. Lactobacillus and acidophilus. PLAN: 1. The patient will be admitted with the diagnosis of abdominal pain / pancreatitis with HIV and AIDS. 2. Rule out C. difficile toxin colitis. Rule out other protozoan infections. Will get stool studies. 3. Fevers and chills. 4. Abdominal pain. 5. Positive pancreatitis. Will repeat labs in the morning. 6. Abdominal pain. 7. Poor compliance and very lethargic at the moment. 8. Thrombocytopenia. 9. Anemia. 10. History of CVAs. 11. History of hypertension with what sounds like some poor compliance. 12. History of alcohol abuse. 13. Tobacco abuse. The patient will be admitted. Will continue to follow her throughout the admission. Will continue her on her home medications if she can tolerate. Continue her on the aspirin, Zithromax. Continue on the Bentyl. Continue on the Diflucan. Continue her on her HIV medications. Continue on Zofran. Will make her a full admission. Will consult case management. Will make her NPO at the moment. Continue on fluids. C. difficile toxin, CBC, comprehensive metabolic panel, TSH, free T4, hemoglobin A1c, magnesium and phosphorus. Continue on Flagyl IV as well as the Vancomycin orally if she can take it. Will get a.m. labs. Will continue to follow her amylase and lipase. Will monitor her and make sure she is on some Protonix for her stomach. Will continue occupational therapy and physical therapy. Get case management involved. She is a full code. Will monitor her here throughout the admission for any other issues that may arise. Will make sure she is on the Protonix orally since the IV is in short supply. Will continue to monitor her throughout the admission for any other issues that may arise. We will consult GI as well as infectious disease regarding the abdominal pain and the C. Difficile. Will continue to follow her throughout the admission for any other issues that may arise. She will continue on DVT prophylaxis with SCDs and ANGI-hose. Will monitor her for any other issues that may arise. SCDs and continue on DVT prophylaxis and GI prophylaxis. Will continue her on Protonix and continue her on Lovenox. Will follow her for any other issues that may arise. Yosef Antoine DO [facility] [place] /3:15 PM /4:31 PM
[2017-03-27 18:26] VITALS: BP 106/61; PULSE 92; RESP 17; TEMP 100; O2SAT 99
[2017-03-27] MEDS: LACTOBACILLUS ACIDOPHILUS TAB PO SCH (18:38)
[2017-03-27] MEDS: metroNIDAZOLE 500 MG INJ 100 ML IV SCH (18:38)
[2017-03-27] MEDS: VANCOMYCIN 500 MG VIAL (FOR ORAL USE ONLY) PO SCH ×2 (18:39→22:52)
[2017-03-27 20:00] VITALS: BP 122/58; PULSE 92; RESP 22; TEMP 99.9; O2SAT 96
--- NOTE | 2017-03-27 20:53 | PD.CONS ---
HPI History of Present Illness This is a 52 year old female patient with known HIV and AIDS with poor compliance who has been ill for one month. She has been having diarrhea and stool studies have been positive for C diff. She cannot give much history and mumbles her replies and appears fatigued and lethargic. She complains of abdominal pain. ROS is not possible due to her lethargy. PFSH Past Medical History Unable to obtain Past Surgical History unable to obtain Coded Allergies: No Known Allergies (Verified , 03/24/17) Medications Current Medications Medications (Trade) Dose Ordered Sig/Sue Route Start Time Stop Time Status Last Admin Potassium Chloride/Dextrose/ Sod Cl 1,000 ml @ 100 mls/hr Q10H IV 03/27/17 13:57 03/27/17 16:30 (Compazine Supp) 25 mg Q12H PRN RECTAL 03/27/17 14:00 (Ambien) 5 mg HS PRN PO 03/27/17 14:00 (Lovenox Inj) 40 mg Q24H SQ 03/27/17 15:00 03/27/17 16:31 (Tylenol) 650 mg Q6H PRN PO 03/27/17 14:00 (Roxicodone) 10 mg Q4H PRN PO 03/27/17 14:00 (Morphine Inj) 2 mg Q3H PRN IV 03/27/17 14:00 (Morphine Inj) 4 mg Q3H PRN IV 03/27/17 14:00 (Roxicodone) 5 mg Q4H PRN PO 03/27/17 14:00 (Narcan Inj) 0.4 mg UNSCH PRN IV 03/27/17 14:00 (Karina-Colace) 1 tab BID PO 03/27/17 21:00 (Milk Of Magnesia Liq) 30 ml Q12H PRN PO 03/27/17 14:00 (Senokot) 17.2 mg Q12H PRN PO 03/27/17 14:00 (Dulcolax Supp) 10 mg DAILY PRN RECTAL 03/27/17 14:00 (Lactulose Liq) 30 ml DAILY PRN PO 03/27/17 14:00 (NS Flush) 2 ml UNSCH PRN IV FLUSH 03/27/17 14:00 (NS Flush) 2 ml BID IV FLUSH 03/27/17 21:00 Metronidazole 100 ml @ 100 mls/hr Q8H IV 03/27/17 20:00 03/27/17 18:38 (VANCOMYCIN for oral use only) 500 mg QID PO 03/27/17 18:00 03/27/17 18:39 (Lactinex) 1 tab TID PO 03/27/17 18:00 03/27/17 18:38 (Aspirin Chew) 81 mg DAILY CHEW 03/28/17 09:00 (Mepron Liq) 1,500 mg DAILY PO 03/28/17 09:00 (Zithromax) 1,200 mg Q7D PO 03/27/17 16:00 03/27/17 16:31 (Bentyl) 20 mg TID PRN PO 03/27/17 15:15 (Diflucan) 100 mg DAILY PO 03/28/17 09:00 (Ziagen) 600 mg DAILY PO 03/28/17 09:00 Patient Own Medication 1 ea DAILY PO 03/28/17 09:00 Future Hold (Zofran Odt) 4 mg Q6HR PRN PO 03/27/17 15:15 (Protonix) 40 mg Q12HR PO 03/27/17 21:00 (Lopressor) 12.5 mg Q12HR PO 03/27/17 21:00 (Pill Splitter) 1 ea UNSCH PRN OTHER 03/27/17 15:30 (Epivir) 300 mg DAILY PO 03/28/17 09:00 Family History cannot get history Social History Cannot get history GI Exam Vitals I&O Vital Signs Date Time Temp Pulse Resp B/P (MAP) Pulse Ox O2 Delivery O2 Flow Rate FiO2 03/27/17 18:26 100.0 92 17 106/61 (76) 99 03/27/17 16:28 92 18 96/54 (68) 99 Room Air 03/27/17 15:36 18 03/27/17 13:34 101.6 96 18 119/70 (86) 97 Room Air 03/27/17 10:11 93 30 115/53 (73) 100 03/27/17 09:57 98.5 99 20 131/72 (91) 97 I/O 03/26/17 03/26/17 03/26/17 03/27/17 03/27/17 03/27/17 07:00 15:00 23:00 07:00 15:00 23:00 Intake Total 1100 ml 100 ml Balance 1100 ml 100 ml Intake IV Total 1100 ml 100 ml Laboratory Test 03/27/17 11:00 03/27/17 12:50 03/27/17 13:20 White Blood Count 4.6 TH/MM3 Red Blood Count 3.12 MIL/MM3 Hemoglobin 10.0 GM/DL Hematocrit 30.1 % Mean Corpuscular Volume 96.5 FL Mean Corpuscular Hemoglobin 32.2 PG Mean Corpuscular Hemoglobin Concent 33.4 % Red Cell Distribution Width 16.7 % Platelet Count 113 TH/MM3 Mean Platelet Volume 10.3 FL Neutrophils (%) (Auto) 82.3 % Lymphocytes (%) (Auto) 6.9 % Monocytes (%) (Auto) 7.5 % Eosinophils (%) (Auto) 2.3 % Basophils (%) (Auto) 1.0 % Neutrophils # (Auto) 3.8 TH/MM3 Lymphocytes # (Auto) 0.3 TH/MM3 Monocytes # (Auto) 0.3 TH/MM3 Eosinophils # (Auto) 0.1 TH/MM3 Basophils # (Auto) 0.0 TH/MM3 CBC Comment DIFF FINAL Differential Comment Blood Urea Nitrogen 11 MG/DL Creatinine 1.00 MG/DL Random Glucose 72 MG/DL Total Protein 8.8 GM/DL Albumin 1.6 GM/DL Calcium Level 7.3 MG/DL Alkaline Phosphatase 117 U/L Aspartate Amino Transf (AST/SGOT) 58 U/L Alanine Aminotransferase (ALT/SGPT) 18 U/L Total Bilirubin 0.6 MG/DL Sodium Level 140 MEQ/L Potassium Level 4.1 MEQ/L Chloride Level 112 MEQ/L Carbon Dioxide Level 19.5 MEQ/L Anion Gap 9 MEQ/L Estimat Glomerular Filtration Rate 70 ML/MIN Protein Corrected Calcium 6.6 MG/DL Triglycerides Level 134 MG/DL Lipase 605 U/L Urine Color YELLOW Urine Turbidity HAZY Urine pH 6.0 Urine Specific Roby 1.010 Urine Protein TRACE mg/dL Urine Glucose (UA) NEG mg/dL Urine Ketones NEG mg/dL Urine Occult Blood MOD Urine Nitrite POS Urine Bilirubin NEG Urine Urobilinogen LESS THAN 2.0 MG/DL Urine Leukocyte Esterase LARGE Urine RBC 2 /hpf Urine WBC 44 /hpf Urine Bacteria MOD /hpf Microscopic Urinalysis Comment CULTURE INDICATED Stool C. difficile Toxin (PCR) POSITIVE Stl C. difficile Toxin Epiderm 027 PRESUMPTIVE POSITIVE Date/Time Source Procedure Growth Status 03/27/17 16:20 Blood Peripheral Aerobic Blood Culture Pending Received 03/27/17 16:20 Blood Peripheral Anaerobic Blood Culture Pending Received 03/27/17 13:20 Stool Stool Cryptosporidium Exam Pending Received 03/27/17 13:20 Stool Stool Stool Pus (FLY) Pending Received 03/27/17 13:20 Stool Stool Giardia Antigen (FLY) Pending Received 03/27/17 12:50 Urine Clean Catch Urine Culture Pending Received Physical Examination HEENT: lethargic NECK: No JVD CHEST: Respirations unlabored CARDIAC: RRR ABDOMEN: Mildly tender with some distension EXTREMITIES: No cyanosis SKIN: Dry 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 Tyler Singletary MD Mar 27, 2017 20:53
[2017-03-27] MEDS ORDERED: SODIUM CHLORIDE 0.9% FLUSH 10 ML FLUSH IV FLUSH SCH (21:00)
[2017-03-27] MEDS: DOCUSATE SODIUM 50 MG/SENNA 8.6 MG TAB PO SCH (21:00)
[2017-03-27] MEDS: SODIUM CHLORIDE 0.9% FLUSH 10 ML FLUSH IV FLUSH SCH (21:00)
[2017-03-27] MEDS: RIFAXIMIN 550 MG TAB PO SCH (22:51)
[2017-03-27] MEDS: PANTOPRAZOLE SOD 40 MG DELAYED RELEASE TAB PO SCH (22:52)
[2017-03-27] MEDS: METOPROLOL TARTRATE 25 MG TAB PO SCH (22:52)
[2017-03-28] VITALS (8 sets, daily range): BP systolic 94–128; BP diastolic 55–70; PULSE 76–87; RESP 16–20; TEMP 96.5–99.8; O2SAT 97–100
[2017-03-28] MEDS: D5-1/2 NS + KCL 20 MEQ INJ 1,000 ML IV SCH ×2 (03:14→09:57)
[2017-03-28] MEDS: metroNIDAZOLE 500 MG INJ 100 ML IV SCH ×3 (03:14→21:51)
[2017-03-28 05:07] LABS: HEMATOCRIT 25.4 % (35.0-46.0); MEAN CELL VOLUME 96.3 FL (80.0-100.0); MEAN CORPUSCULAR HEMOGLOBIN 31.9 PG (27.0-34.0); MEAN CORPUSCULAR HGB CONC 33.1 % (32.0-36.0); PLATELET COUNT 109 TH/MM3 (150-450); RED BLOOD COUNT 2.64 MIL/MM3 (4.00-5.30); RED CELL DISTRIBUTION WIDTH 16.5 % (11.6-17.2); WHITE BLOOD COUNT 7.9 TH/MM3 (4.0-11.0)
[2017-03-28 05:17] LABS: HEMO FLAGS AUTO DIFF
[2017-03-28 05:56] LABS: ALKALINE PHOSPHATASE 91 U/L (45-117); ALT (GPT) 13 U/L (10-53); ANION GAP 8 MEQ/L (5-15); AST (GOT) 32 U/L (15-37); BLOOD UREA NITROGEN 11 MG/DL (7-18); CHLORIDE 115 MEQ/L (98-107); FREE T4 1.03 NG/DL (0.76-1.46); GLOMERULAR FILTRATION RATE 74 ML/MIN (>89); POTASSIUM 3.3 MEQ/L (3.5-5.1); SODIUM (NA) 141 MEQ/L (136-145); TOTAL BILIRUBIN ADULT 0.5 MG/DL (0.2-1.0)
[2017-03-28 06:02] LABS: CALCIUM-PROTEIN CORRECTED 7.2 MG/DL (8.5-10.1)
[2017-03-28] MEDS ORDERED: CALCIUM GLUCONATE INJ 1 GM in DEXTROSE 5% IN WATER 100ML INJ 100 ML IV ONE ×2 (06:30)
[2017-03-28 08:29] LABS: BANDS 32 % (0-6); BLASTS 1 % (0-0); NEUTROPHIL # MANUAL DIFF 7.6 TH/MM3 (1.8-7.7); PLATELET ESTIMATE SMEAR LOW (NORMAL); PLATELET MORPHOLOGY NORMAL (NORMAL); POLYS (SEG NEUTROPHILS) 64 % (16-70); SCAN/DIFF FINAL DIFF MANUAL; WBC DIFF SAMPLE 100
[2017-03-28 08:30] LABS: OVALOCYTES 1+ (NORMAL)
[2017-03-28] MEDS: ATOVAQUONE SUSP 750 MG/5 ML UDC PO SCH (09:00)
[2017-03-28] MEDS: DOCUSATE SODIUM 50 MG/SENNA 8.6 MG TAB PO SCH ×2 (09:00→21:00)
[2017-03-28] MEDS ORDERED: ZIDOVUDINE 100 MG CAP PO SCH (09:00)
[2017-03-28] MEDS: SODIUM CHLORIDE 0.9% FLUSH 10 ML FLUSH IV FLUSH SCH ×2 (09:00→21:00)
[2017-03-28] MEDS ORDERED: PREZCOBIX PO SCH (09:00)
[2017-03-28] MEDS ORDERED: [UNRECOGNIZED DRUG - OTHER] PO SCH (09:00)
[2017-03-28] MEDS: DOLUTEGRAVIR SODIUM 50 MG TAB PO SCH (10:00)
[2017-03-28] MEDS ORDERED: POTASSIUM PHOSPHATE INJ 30 MMOL in SODIUM CHLOR 0.9% 250 ML INJ 250 ML IV ONE (10:00)
[2017-03-28] MEDS: VANCOMYCIN 500 MG VIAL (FOR ORAL USE ONLY) PO SCH ×4 (10:00→21:51)
[2017-03-28] MEDS: LACTOBACILLUS ACIDOPHILUS TAB PO SCH ×3 (10:01→19:13)
[2017-03-28] MEDS: PANTOPRAZOLE SOD 40 MG DELAYED RELEASE TAB PO SCH ×2 (10:01→21:51)
[2017-03-28] MEDS: RIFAXIMIN 550 MG TAB PO SCH ×2 (10:01→21:51)
[2017-03-28] MEDS: ABACAVIR SULFATE 300 MG TAB PO SCH (10:01)
[2017-03-28] MEDS: METOPROLOL TARTRATE 25 MG TAB PO SCH ×2 (10:02→21:51)
[2017-03-28] MEDS: FLUCONAZOLE 100 MG TAB PO SCH (10:02)
[2017-03-28 11:20] LABS: HEMOGLOBIN A1a 1.4 %; HEMOGLOBIN A1b 0.7 %; HEMOGLOBIN Ao 84.6 %; HEMOGLOBIN F 2.3 %; HEMOGLOBIN P3 3.6 %
--- NOTE | 2017-03-28 12:46 | HHI.GIFU ---
Subjective Remarks Lying in bed sleeping, awakes to me calling her name. States she is tired. Reports lower abdominal pain. Continues to have diarrhea. Objective Vitals I&O Vital Signs Date Time Temp Pulse Resp B/P (MAP) Pulse Ox O2 Delivery O2 Flow Rate FiO2 03/28/17 11:02 97 03/28/17 08:00 96.5 77 16 105/58 (74) 98 03/28/17 04:00 99.8 83 20 101/58 (72) 98 03/28/17 00:00 99.7 85 20 110/57 (74) 99 03/27/17 20:00 99.9 92 22 122/58 (79) 96 03/27/17 18:26 100.0 92 17 106/61 (76) 99 03/27/17 16:28 92 18 96/54 (68) 99 Room Air 03/27/17 15:36 18 03/27/17 13:34 101.6 96 18 119/70 (86) 97 Room Air I/O 03/27/17 03/27/17 03/27/17 03/28/17 03/28/17 03/28/17 07:00 15:00 23:00 07:00 15:00 23:00 Intake Total 1100 ml 100 ml 0 ml Output Total 400 ml Balance 1100 ml 100 ml -400 ml Intake Oral 0 ml IV Total 1100 ml 100 ml Output Urine Total 400 ml # Bowel Movements 2 Laboratory Laboratory Tests Test 03/27/17 12:50 03/27/17 13:20 03/27/17 23:28 03/28/17 04:08 Urine Color YELLOW Urine Turbidity HAZY Urine pH 6.0 Urine Specific [place] 1.010 Urine Protein TRACE Urine Glucose (UA) NEG Urine Ketones NEG Urine Occult Blood MOD Urine Nitrite POS Urine Bilirubin NEG Urine Urobilinogen LESS THAN 2.0 Urine Leukocyte Esterase LARGE Urine RBC 2 Urine WBC 44 Urine Bacteria MOD Microscopic Urinalysis Comment CULTURE INDICATED Stool C. difficile Toxin (PCR) POSITIVE Stl C. difficile Toxin Epiderm 027 PRESUMPTIVE POSITIVE Ammonia 31 White Blood Count 7.9 Red Blood Count 2.64 Hemoglobin 8.4 Hematocrit 25.4 Mean Corpuscular Volume 96.3 Mean Corpuscular Hemoglobin 31.9 Mean Corpuscular Hemoglobin Concent 33.1 Red Cell Distribution Width 16.5 Platelet Count 109 Mean Platelet Volume 10.6 CBC Comment AUTO DIFF Differential Total Cells Counted 100 Neutrophils % (Manual) 64 Band Neutrophils % 32 Lymphocytes % 2 Monocytes % 1 Neutrophils # (Manual) 7.6 Differential Comment FINAL DIFF MANUAL Blastocytes 1 Platelet Estimate LOW Platelet Morphology Comment NORMAL Ovalocytes 1+ Blood Urea Nitrogen 11 Creatinine 0.96 Random Glucose 87 Total Protein 7.6 Albumin 1.3 Calcium Level 7.4 Phosphorus Level 2.2 Magnesium Level 2.0 Alkaline Phosphatase 91 Aspartate Amino Transf (AST/SGOT) 32 Alanine Aminotransferase (ALT/SGPT) 13 Total Bilirubin 0.5 Sodium Level 141 Potassium Level 3.3 Chloride Level 115 Carbon Dioxide Level 18.0 Anion Gap 8 Estimat Glomerular Filtration Rate 74 Hemoglobin A1c 5.1 Protein Corrected Calcium 7.2 Lipase 109 Free Thyroxine 1.03 Thyroid Stimulating Hormone 3rd Gen 2.450 Date/Time Source Procedure Growth Status 03/27/17 16:20 Blood Peripheral Aerobic Blood Culture - Preliminary NO GROWTH IN 1 DAY Resulted 03/27/17 16:20 Blood Peripheral Anaerobic Blood Culture - Preliminary NO GROWTH IN 1 DAY Resulted 03/27/17 13:20 Stool Stool Cryptosporidium Exam - Final NEGATIVE - NO CRYPTOSPORIDIUM ANTIGEN... Complete 03/27/17 13:20 Stool Stool Stool Pus (FLY) - Final RARE WBC Complete 03/27/17 13:20 Stool Stool Giardia Antigen (FLY) - Final NEGATIVE - NO GIARDIA ANTIGEN DETECTE... Complete 03/27/17 12:50 Urine Clean Catch Urine Culture - Preliminary Staphylococcus Aureus Resulted Imaging Last Impressions Abdomen/Pelvis CT 03/27/17 1040 Signed Impressions: Service Date/Time: Monday, March 27, 2017 11:43 - CONCLUSION: 1. Cirrhosis and portal hypertension with ascites and varices identified. Joe Palma MD Chest X-Ray 03/27/17 0000 Signed Impressions: Service Date/Time: Monday, March 27, 2017 15:53 - CONCLUSION: Stable bibasilar patchy opacities. Rad Cueto MD Physical Exam HEENT: Normocephalic; atraumatic; no jaundice. NECK: Neck is supple. CHEST: CTA CARDIAC: RRR with no murmur gallop or rubs. ABDOMEN: Soft, mild distention, diffuse abdominal TTP; bowel sounds are present x 4. EXTREMITIES: No clubbing, cyanosis, or edema. SKIN: Normal; no rash; no jaundice. GIS DEVELOPER: Lethargic Assessment and Plan Plan ASSESSMENT Diarrhea,C Diff positive. On Vanco and Flagyl IV. Continues to have diarrhea. Patient c/o lower abdominal pain. She is lethargic. HH decreased to 8.4/25.4 today, was 10/30.1 yesterday. No active bleeding noted. CT Abdomen/Pelvis 03/27/17--CONCLUSION: 1. Cirrhosis and portal hypertension with ascites and varices identified. LFTs stable. HIV/AIDS, per attending. Sepsis, per attending PLAN: - Continue Vancomycin - Continue Flagyl - Monitor HH, transfuse as necessary - Monitor labs - Supportive care - Further recommendations to follow based on results of above. Patient seen and examined by Dr. Singletary and myself and this note is written on his behalf. Mariela Price Mar 28, 2017 12:45
[2017-03-28] MEDS: ASPIRIN 81 MG CHEW TAB CHEW SCH (13:03)
--- NOTE | 2017-03-28 13:49 | PD.ID.CON ---
History of Present Illness Service ID Consult Requested By Dr Ramirez Reason for Consult recurrent C.diff, HIV Primary Care Physician Jeremiah Garcia MD Diagnoses: History of Present Illness Pt is known to me from her previou admission She is a poo rhistorian 52 yo female with advanced HiV/AIDS ( on HAART: ABC+ epivir+ dolutegravir and darunavir+ cobstat), followed by Dr Teague [facility] Her CD4 in October < she presetns with recutrrent diarrhea, third or fouth time episode of hypervirulent C.diff 027 + She also has AFB+ stool on her last admission in January She present with ongoing diarrhea for a month, with crampy pain x 2 days SHe was febrile up to 101.5 and has bandemia in 30s on presentation SHe was sarted on iv flagyl and oral vancomycin Review of Systems Constitutional: COMPLAINS OF: Fatigue, Weight loss Gastrointestinal: COMPLAINS OF: Abdominal pain, Diarrhea Except as stated in HPI: all other systems reviewed are Neg Past Family Social History Allergies: Coded Allergies: No Known Allergies (Verified , 03/24/17) Past Medical History HIV/AIDS History of recent C. difficile infection Cirrhosis with ascites History of GI bleeding and gastritis History of stroke 2 Past Surgical History Active Ordered Medications Medications where reviewed in EMR Antibiotics Include: flagyl IV vanco po ABC+ epivir+ dolutegravir darunavir+ cobstat (on hold) azithro atovaquone fluconazole Family History mother with cirrhosis of the liver Social History Patient denies any alcohol, tobacco, or drug use Used to drink ETOH Physical Exam Vital Signs Vital Signs Date Time Temp Pulse Resp B/P (MAP) Pulse Ox O2 Delivery O2 Flow Rate FiO2 03/28/17 11:02 97 03/28/17 08:00 96.5 77 16 105/58 (74) 98 03/28/17 04:00 99.8 83 20 101/58 (72) 98 03/28/17 00:00 99.7 85 20 110/57 (74) 99 03/27/17 20:00 99.9 92 22 122/58 (79) 96 03/27/17 18:26 100.0 92 17 106/61 (76) 99 03/27/17 16:28 92 18 96/54 (68) 99 Room Air 03/27/17 15:36 18 Physical Exam CONSTITUTIONAL/GENERAL: This is a thin emaciated patient, in no apparent distress, chronicaly ill appearing TUBES/LINES/DRAINS: SKIN: No jaundice, rashes, or lesions. Skin temperature appropriate. Not diaphoretic. HEAD: Atraumatic. Normocephalic. EYES: Pupils equal and round and reactive. Extraocular motions intact. No scleral icterus. No injection or drainage. Fundi not examined. ENT: Hearing grossly normal. Nose without bleeding or purulent drainage. oral mucosae without visible erythema, exudates, masses, or lesions. Edentulos NECK: Trachea midline. Supple, nontender. CARDIOVASCULAR: Regular rate and rhythm without murmurs, gallops, or rubs. No JVD. Peripheral pulses symmetric. RESPIRATORY/CHEST: Symmetric, unlabored respirations. Clear to auscultation. Breath sounds equal bilaterally. No wheezes, rales, or rhonchi. GASTROINTESTINAL: Abdomen tense diffusely tender with max in RLQ, markedly distended. No hepato-splenomegaly, or palpable masses. No guarding. Bowel sounds present. GENITOURINARY: Without palpable bladder distension. Conde in place with clear yelllow urine MUSCULOSKELETAL: Extremities without clubbing, cyanosis, or edema. No joint tenderness or effusion noted. No calf tenderness. No mottling or clubbing. LYMPHATICS: No palpable cervical or supraclavicular adenopathy. NEUROLOGICAL: Awake and alert. Motor and sensory grossly within normal limits. Follows commands. Clear speech . Moves all extremities. PSYCHIATRIC: No obvious anxiety/depression. no apparent hallucinations or other psychotic thought process. Laboratory Laboratory Tests Test 03/27/17 23:28 03/28/17 04:08 Ammonia 31 White Blood Count 7.9 Red Blood Count 2.64 Hemoglobin 8.4 Hematocrit 25.4 Mean Corpuscular Volume 96.3 Mean Corpuscular Hemoglobin 31.9 Mean Corpuscular Hemoglobin Concent 33.1 Red Cell Distribution Width 16.5 Platelet Count 109 Mean Platelet Volume 10.6 CBC Comment AUTO DIFF Differential Total Cells Counted 100 Neutrophils % (Manual) 64 Band Neutrophils % 32 Lymphocytes % 2 Monocytes % 1 Neutrophils # (Manual) 7.6 Differential Comment FINAL DIFF MANUAL Blastocytes 1 Platelet Estimate LOW Platelet Morphology Comment NORMAL Ovalocytes 1+ Blood Urea Nitrogen 11 Creatinine 0.96 Random Glucose 87 Total Protein 7.6 Albumin 1.3 Calcium Level 7.4 Phosphorus Level 2.2 Magnesium Level 2.0 Alkaline Phosphatase 91 Aspartate Amino Transf (AST/SGOT) 32 Alanine Aminotransferase (ALT/SGPT) 13 Total Bilirubin 0.5 Sodium Level 141 Potassium Level 3.3 Chloride Level 115 Carbon Dioxide Level 18.0 Anion Gap 8 Estimat Glomerular Filtration Rate 74 Hemoglobin A1c 5.1 Protein Corrected Calcium 7.2 Lipase 109 Free Thyroxine 1.03 Thyroid Stimulating Hormone 3rd Gen 2.450 Date/Time Source Procedure Growth Status 03/27/17 16:20 Blood Peripheral Aerobic Blood Culture - Preliminary NO GROWTH IN 1 DAY Resulted 03/27/17 16:20 Blood Peripheral Anaerobic Blood Culture - Preliminary NO GROWTH IN 1 DAY Resulted 03/27/17 13:20 Stool Stool Cryptosporidium Exam - Final NEGATIVE - NO CRYPTOSPORIDIUM ANTIGEN... Complete 03/27/17 13:20 Stool Stool Stool Pus (FLY) - Final RARE WBC Complete 03/27/17 13:20 Stool Stool Giardia Antigen (FLY) - Final NEGATIVE - NO GIARDIA ANTIGEN DETECTE... Complete 03/27/17 12:50 Urine Clean Catch Urine Culture - Preliminary Staphylococcus Aureus Resulted Result Diagram: 03/28/17 0408 03/28/17 0408 Imaging Last Impressions Abdomen/Pelvis CT 03/27/17 1040 Signed Impressions: Service Date/Time: Monday, March 27, 2017 11:43 - CONCLUSION: 1. Cirrhosis and portal hypertension with ascites and varices identified. Joe Palma MD Chest X-Ray 03/27/17 0000 Signed Impressions: Service Date/Time: Monday, March 27, 2017 15:53 - CONCLUSION: Stable bibasilar patchy opacities. Rad Cueto MD Assessment and Plan Assessment and Plan C.diff, hypervirulent strain with at least 2nd reciurrentce MAC in stool HIV/advanced AIDS, states compliance Emacilation, failure to thrive cotn tx for C.diff she will need to be converted to vanco taper after 2 weeks of vanco complated since its 3rd episode chk AFB stool clx chk VL and CD4 con further rec's to Anaid Pace MD Mar 28, 2017 13:49
--- NOTE | 2017-03-28 16:19 | HHI.PR ---
Subjective Remarks This patient came in through the emergency department and was seen by the emergency room physician and was recommended for admission. The patient is a 52-year-old -[place] female with known history of HIV and AIDS who has been having diarrhea for about a month. She was here about two days and had diffuse abdominal cramping associated with nausea and vomiting and abdominal pain. The patient is not a very good historian and is not able to give much information. Everything was obtained from chart review. 03-28 SUSPECT PATIENT HAS FULL BLOWN AIDS AND NOT JUST HIV APPEARS TO HAVE NONCOMPLIANCE STILL HAVING DIARRHEA MORE AWAKE AND ALERT TODAY ANSWERING SOME QUESTIONS DW RN AND PT AND FAMILY WILL GET PALLIATIVE CARE CONSULT Objective Vitals Vital Signs Date Time Temp Pulse Resp B/P (MAP) Pulse Ox O2 Delivery O2 Flow Rate FiO2 03/28/17 11:02 97 03/28/17 08:00 96.5 77 16 105/58 (74) 98 03/28/17 04:00 99.8 83 20 101/58 (72) 98 03/28/17 00:00 99.7 85 20 110/57 (74) 99 03/27/17 20:00 99.9 92 22 122/58 (79) 96 03/27/17 18:26 100.0 92 17 106/61 (76) 99 03/27/17 16:28 92 18 96/54 (68) 99 Room Air I/O 03/27/17 03/27/17 03/27/17 03/28/17 03/28/17 03/28/17 07:00 15:00 23:00 07:00 15:00 23:00 Intake Total 1100 ml 100 ml 0 ml Output Total 400 ml Balance 1100 ml 100 ml -400 ml Intake Oral 0 ml IV Total 1100 ml 100 ml Output Urine Total 400 ml # Bowel Movements 2 Result Diagram: 03/28/17 0408 03/28/17 0408 Other Results Laboratory Tests Test 03/27/17 11:00 03/27/17 12:50 03/27/17 13:20 03/27/17 23:28 White Blood Count 4.6 TH/MM3 Red Blood Count 3.12 MIL/MM3 Hemoglobin 10.0 GM/DL Hematocrit 30.1 % Mean Corpuscular Volume 96.5 FL Mean Corpuscular Hemoglobin 32.2 PG Mean Corpuscular Hemoglobin Concent 33.4 % Red Cell Distribution Width 16.7 % Platelet Count 113 TH/MM3 Mean Platelet Volume 10.3 FL Neutrophils (%) (Auto) 82.3 % Lymphocytes (%) (Auto) 6.9 % Monocytes (%) (Auto) 7.5 % Eosinophils (%) (Auto) 2.3 % Basophils (%) (Auto) 1.0 % Neutrophils # (Auto) 3.8 TH/MM3 Lymphocytes # (Auto) 0.3 TH/MM3 Monocytes # (Auto) 0.3 TH/MM3 Eosinophils # (Auto) 0.1 TH/MM3 Basophils # (Auto) 0.0 TH/MM3 CBC Comment DIFF FINAL Differential Comment Blood Urea Nitrogen 11 MG/DL Creatinine 1.00 MG/DL Random Glucose 72 MG/DL Total Protein 8.8 GM/DL Albumin 1.6 GM/DL Calcium Level 7.3 MG/DL Alkaline Phosphatase 117 U/L Aspartate Amino Transf (AST/SGOT) 58 U/L Alanine Aminotransferase (ALT/SGPT) 18 U/L Total Bilirubin 0.6 MG/DL Sodium Level 140 MEQ/L Potassium Level 4.1 MEQ/L Chloride Level 112 MEQ/L Carbon Dioxide Level 19.5 MEQ/L Anion Gap 9 MEQ/L Estimat Glomerular Filtration Rate 70 ML/MIN Protein Corrected Calcium 6.6 MG/DL Triglycerides Level 134 MG/DL Lipase 605 U/L Urine Color YELLOW Urine Turbidity HAZY Urine pH 6.0 Urine Specific [place] 1.010 Urine Protein TRACE mg/dL Urine Glucose (UA) NEG mg/dL Urine Ketones NEG mg/dL Urine Occult Blood MOD Urine Nitrite POS Urine Bilirubin NEG Urine Urobilinogen LESS THAN 2.0 MG/DL Urine Leukocyte Esterase LARGE Urine RBC 2 /hpf Urine WBC 44 /hpf Urine Bacteria MOD /hpf Microscopic Urinalysis Comment CULTURE INDICATED Stool C. difficile Toxin (PCR) POSITIVE Stl C. difficile Toxin Epiderm 027 PRESUMPTIVE POSITIVE Ammonia 31 MCMOL/L Test 03/28/17 04:08 White Blood Count 7.9 TH/MM3 Red Blood Count 2.64 MIL/MM3 Hemoglobin 8.4 GM/DL Hematocrit 25.4 % Mean Corpuscular Volume 96.3 FL Mean Corpuscular Hemoglobin 31.9 PG Mean Corpuscular Hemoglobin Concent 33.1 % Red Cell Distribution Width 16.5 % Platelet Count 109 TH/MM3 Mean Platelet Volume 10.6 FL CBC Comment AUTO DIFF Differential Total Cells Counted 100 Neutrophils % (Manual) 64 % Band Neutrophils % 32 % Lymphocytes % 2 % Monocytes % 1 % Neutrophils # (Manual) 7.6 TH/MM3 Differential Comment FINAL DIFF MANUAL Blastocytes 1 % Platelet Estimate LOW Platelet Morphology Comment NORMAL Ovalocytes 1+ Blood Urea Nitrogen 11 MG/DL Creatinine 0.96 MG/DL Random Glucose 87 MG/DL Total Protein 7.6 GM/DL Albumin 1.3 GM/DL Calcium Level 7.4 MG/DL Phosphorus Level 2.2 MG/DL Magnesium Level 2.0 MG/DL Alkaline Phosphatase 91 U/L Aspartate Amino Transf (AST/SGOT) 32 U/L Alanine Aminotransferase (ALT/SGPT) 13 U/L Total Bilirubin 0.5 MG/DL Sodium Level 141 MEQ/L Potassium Level 3.3 MEQ/L Chloride Level 115 MEQ/L Carbon Dioxide Level 18.0 MEQ/L Anion Gap 8 MEQ/L Estimat Glomerular Filtration Rate 74 ML/MIN Hemoglobin A1c 5.1 % Protein Corrected Calcium 7.2 MG/DL Lipase 109 U/L Free Thyroxine 1.03 NG/DL Thyroid Stimulating Hormone 3rd Gen 2.450 uIU/ML Imaging Last Impressions Abdomen/Pelvis CT 03/27/17 1040 Signed Impressions: Service Date/Time: Monday, March 27, 2017 11:43 - CONCLUSION: 1. Cirrhosis and portal hypertension with ascites and varices identified. Joe Palma MD Chest X-Ray 03/27/17 0000 Signed Impressions: Service Date/Time: Monday, March 27, 2017 15:53 - CONCLUSION: Stable bibasilar patchy opacities. Rad Cueto MD Objective Remarks GENERAL: AWAKE AND ALERT BUT STILL SOME CONFUSION- VERY FRAIL APPEARING SKIN: Warm and dry. HEAD: Atraumatic. Normocephalic. EYES: Pupils equal and round. No scleral icterus. No injection or drainage. EOMI ENT: No nasal bleeding or discharge. Mucous membranes pink and moist.TONGUE IS MIDLINE NECK: Trachea midline. No JVD. SUPPLE CARDIOVASCULAR: Regular rate and rhythm. S1, S2 NO S3 OR S4 NO HEAVE OR THRILL OR RUB RESPIRATORY: No accessory muscle use. Clear to auscultation. Breath sounds equal bilaterally. GASTROINTESTINAL: Abdomen soft, non-tender, nondistended. Hepatic and splenic margins not palpable. CACHECTIC MUSCULOSKELETAL: Extremities without clubbing, cyanosis, or edema. No obvious deformities. NEUROLOGICAL: Awake and alert. No obvious cranial nerve deficits. Motor grossly within normal limits. 4 out of 5 muscle strength in the arms and legs. Normal speech. PSYCHIATRIC: INAppropriate mood and affect; insight and judgment ABnormal. Medications and IVs Current Medications Metronidazole 100 ml @ 100 mls/hr ONCE ONCE IV Last administered on 03/27/17 11:50; Start 03/27/17 at 10:30; Stop 03/27/17 at 11:29; Status DC Sodium Chloride 1,000 ml @ 1,000 mls/hr Q1H IV Last administered on 03/27/17 11:50; Start 03/27/17 at 10:30; Stop 03/27/17 at 11:29; Status DC Calcium Gluconate 2 gm/Sodium Chloride 120 ml @ 120 mls/hr ONCE ONCE IV Last administered on 03/27/17 13:55; Start 03/27/17 at 12:30; Stop 03/27/17 at 13:29; Status DC Hydromorphone HCl (Dilaudid Pf Inj) 0.5 mg ONCE ONCE IV PUSH Last administered on 03/27/17 13:55; Start 03/27/17 at 13:30; Stop 03/27/17 at 13:31; Status DC Potassium Chloride/Dextrose/ Sod Cl 1,000 ml @ 100 mls/hr Q10H IV Last administered on 03/28/17 03:14; Start 03/27/17 at 13:57 Sodium Chloride (NS Flush) 2 ml UNSCH PRN IV FLUSH FLUSH AFTER USING IV ACCESS ; Start 03/27/17 at 14:00; Stop 03/27/17 at 14:11; Status DC Sodium Chloride (NS Flush) 2 ml BID IV FLUSH ; Start 03/27/17 at 21:00; Stop 03/27 at 21:00; Status DC Ondansetron HCl (Zofran Inj) 4 mg Q6H PRN IVP NAUSEA OR VOMITING; Start at 14:00; Stop 03/27/17 at 16:01; Status DC Prochlorperazine (Compazine Supp) 25 mg Q12H PRN RECTAL NAUSEA OR VOMITING; Start 03/27/17 at 14:00 Zolpidem Tartrate (Ambien) 5 mg HS PRN PO INSOMNIA; Start 03/27/17 at 14:00 Enoxaparin Sodium (Lovenox Inj) 40 mg Q24H SQ Last administered on 03/27/17 16: 31; Start 03/27/17 at 15:00 Acetaminophen (Tylenol) 650 mg Q6H PRN PO PAIN SCALE 1 TO 2; Start 03/27/17 at 14:00 Oxycodone HCl (Roxicodone) 10 mg Q4H PRN PO PAIN SCALE 6 TO 10 Last administered on 03/28/17 03:15; Start 03/27/17 at 14:00 Morphine Sulfate (Morphine Inj) 2 mg Q3H PRN IV Pain 3-5; if unable to take PO ; Start 03/27/17 at 14:00 Morphine Sulfate (Morphine Inj) 4 mg Q3H PRN IV Pain 6-10;if unable to take PO ; Start 03/27/17 at 14:00 Oxycodone HCl (Roxicodone) 5 mg Q4H PRN PO PAIN SCALE 3 TO 5; Start 03/27/17 at 14:00 Naloxone HCl (Narcan Inj) 0.4 mg UNSCH PRN IV SEE LABEL COMMENTS; Start at 14:00 Senna/Docusate Sodium (Karina-Colace) 1 tab BID PO ; Start 03/27/17 at 21:00 Magnesium Hydroxide (Milk Of Magnesia Liq) 30 ml Q12H PRN PO MILD - MODERATE CONSTIPATION; Start 03/27/17 at 14:00 Sennosides (Senokot) 17.2 mg Q12H PRN PO MODERATE - SEVERE CONSTIPATION; Start 03/27/17 at 14:00 Bisacodyl (Dulcolax Supp) 10 mg DAILY PRN RECTAL SEVERE CONSITIPATION; Start at 14:00 Lactulose (Lactulose Liq) 30 ml DAILY PRN PO SEVERE CONSITIPATION; Start at 14:00 Sodium Chloride (NS Flush) 2 ml UNSCH PRN IV FLUSH FLUSH AFTER USING IV ACCESS ; Start 03/27/17 at 14:00 Sodium Chloride (NS Flush) 2 ml BID IV FLUSH ; Start 03/27/17 at 21:00 Metronidazole 100 ml @ 100 mls/hr Q8H IV Last administered on 03/28/17 13:04; Start 03/27/17 at 20:00 Vancomycin HCl (VANCOMYCIN for oral use only) 500 mg QID PO Last administered on 03/28/17 13:03; Start 03/27/17 at 18:00 Lactobacillus Acidophilus (Lactinex) 1 tab TID PO Last administered on 13:03; Start 03/27/17 at 18:00 Aspirin (Aspirin Chew) 81 mg DAILY CHEW Last administered on 03/28/17 13:03; Start 03/28/17 at 09:00 Atovaquone (Mepron Liq) 1,500 mg DAILY PO ; Start 03/28/17 at 09:00 Azithromycin (Zithromax) 1,200 mg Q7D PO Last administered on 03/27/17 16:31; Start 03/27/17 at 16:00 Dicyclomine HCl (Bentyl) 20 mg TID PRN PO abdominal cramping; Start 03/27/17 at 15:15 Fluconazole (Diflucan) 100 mg DAILY PO Last administered on 03/28/17 10:02; Start 03/28/17 at 09:00 Abacavir Sulfate (Ziagen) 600 mg DAILY PO Last administered on 03/28/17 10:01; Start 03/28/17 at 09:00 Patient Own Medication 1 ea DAILY PO ; Start 03/28/17 at 09:00; Stop 03/28/17 at 13:45; Status DC Ondansetron HCl (Zofran Odt) 4 mg Q6HR PRN PO NAUSEA OR VOMITING Last administered on 03/28/17 03:28; Start 03/27/17 at 15:15 Pantoprazole Sodium (Protonix) 40 mg Q12HR PO Last administered on 03/28/17 10: 01; Start 03/27/17 at 21:00 Metoprolol Tartrate (Lopressor) 12.5 mg Q12HR PO Last administered on 03/28/17 10:02; Start 03/27/17 at 21:00 Tramadol HCl (Ultram) 50 mg Q6H PRN PO PAIN; Start 03/27/17 at 15:15; Stop at 16:01; Status DC Miscellaneous (Pill Splitter) 1 ea UNSCH PRN OTHER SEE LABEL COMMENTS; Start at 15:30 Lamivudine (Epivir) 300 mg DAILY PO Last administered on 03/28/17 10:01; Start 03/28/17 at 09:00 Zidovudine (Retrovir) 300 mg DAILY PO ; Start 03/28/17 at 09:00; Status Cancel Rifaximin (Xifaxan) 550 mg BID PO Last administered on 03/28/17 10:01; Start at 21:00 Calcium Gluconate 1 gm/Dextrose 110 ml @ 110 mls/hr ONCE ONCE IV Last administered on 03/28/17 09:58; Start 03/28/17 at 06:30; Stop 03/28/17 at 07:29; Status DC Potassium Phosphate 30 mmol/ Sodium Chloride 260 ml @ 43.333 mls/ hr ONCE ONCE IV Last administered on 03/28/17 09:59; Start 03/28/17 at 10:00; Stop at 15:59; Status DC Non-Formulary Medication DARUNAVIR AND COBICIS... DAILY PO ; Start 03/29/17 at 09 :00 Urinary Catheter: No Vascular Central Line Catheter: No A/P Problem List: (1) C. 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 ICD Code: B20 - Human immunodeficiency virus [HIV] disease Status: Acute (5) AIDS-associated secretory diarrhea ICD Code: B20 - Human immunodeficiency virus [HIV] disease; A08.4 - Viral intestinal infection, unspecified Status: Acute (6) Colitis ICD Code: K52.9 - Noninfective gastroenteritis and colitis, unspecified Status: Resolved (7) Ascites ICD Code: R18.8 - Other ascites Status: Acute (8) Liver cirrhosis ICD Code: K74.60 - Unspecified cirrhosis of liver Status: Acute (9) Severe protein-calorie malnutrition ICD Code: E43 - Unspecified severe protein-calorie malnutrition Status: Chronic Assessment and Plan C. difficile colitis versus colitis versus diverticulitis versus pancreatitis. She has been treated in the emergency department with hydration and pain control. Stool studies were done ACUTE pancreatitis AM LABS hypocalcemia DUE TO MALNUTRITION AND PCM, AND DIARRHEA HIV and AIDS POOR COMPLIANCE- FULL BLOWN AIDS HYPOKALEMIA WILL REPLACE AND RECHECK BANDEMIA-DEFER TO ID 1. abdominal pain / pancreatitis with HIV and AIDS. 2. Rule out C. difficile toxin colitis. Rule out other protozoan infections. Will get stool studies. 3. Fevers and chills. 4. Abdominal pain. 5. Positive pancreatitis. Will repeat labs in the morning. 6. Abdominal pain. 7. Poor compliance and very lethargic at the moment. 8. Thrombocytopenia. 9. Anemia. 10. History of CVAs. 11. History of hypertension with what sounds like some poor compliance. 12. History of alcohol abuse. 13. Tobacco abuse. THROMBOCYTOPENIA BANDEMIA SEVERE PCM The patient will be admitted. Will continue to follow her throughout the admission. Will continue her on her home medications if she can tolerate. Continue her on the aspirin, Zithromax. Continue on the Bentyl. Continue on the Diflucan. Continue her on her HIV medications. Continue on Zofran. Will make her a full admission. Will consult case management. CLEAR LIQUID DIET Continue on fluids. C. difficile toxin, CBC, comprehensive metabolic panel, TSH, free T4, hemoglobin A1c, magnesium and phosphorus. Continue on Flagyl IV as well as the Vancomycin orally if she can take it. Will get a.m. labs. Will continue to follow her amylase and lipase. Will monitor her and make sure she is on some Protonix for her stomach. Will continue occupational therapy and physical therapy. Get case management involved. She is a full code We will consult GI as well as infectious disease regarding the abdominal pain and the C. Difficile. She will continue on DVT prophylaxis with SCDs and ANGI-hose. Will monitor her for any other issues that may arise. SCDs and continue on DVT prophylaxis and GI prophylaxis. Will continue her on Protonix and continue her on Lovenox. Will follow her for any other issues that may arise. ADD ZOSYN FOR UTI PALLIATIVE CARE CONSULT POOR PROGNOSIS IS FULL CODE Yosef Antoine DO Mar 28, 2017 16:19
[2017-03-28] MEDS: ENOXAPARIN SODIUM 40 MG/0.4 ML SYRINGE SQ SCH (19:14)
[2017-03-28] MEDS: PIPERACIL-TAZO 3.375 GM PREMIX 50 ML IV SCH (19:31)
[2017-03-29] VITALS (7 sets, daily range): BP systolic 95–125; BP diastolic 56–69; PULSE 70–97; RESP 17–20; TEMP 96–97.7; O2SAT 95–100
[2017-03-29] MEDS: PIPERACIL-TAZO 3.375 GM PREMIX 50 ML IV SCH ×3 (00:44→17:04)
[2017-03-29] MEDS: metroNIDAZOLE 500 MG INJ 100 ML IV SCH ×3 (03:22→21:00)
[2017-03-29] MEDS: D5-1/2 NS + KCL 20 MEQ INJ 1,000 ML IV SCH ×4 (05:57→17:29)
[2017-03-29 06:47] LABS: AUTOMATED NEUTROPHIL # 3.7 TH/MM3 (1.8-7.7); BASOPHIL % 0.5 % (0.0-2.0); EOSINOPHIL # 0.2 TH/MM3 (0-0.4); EOSINOPHIL % 5.3 % (0.0-4.0); HEMO FLAGS DIFF FINAL; LYMPH % 7.8 % (9.0-44.0); LYMPHOCYTE # 0.4 TH/MM3 (1.0-4.8); MEAN CELL VOLUME 96.1 FL (80.0-100.0); MEAN CORPUSCULAR HEMOGLOBIN 32.6 PG (27.0-34.0); MEAN CORPUSCULAR HGB CONC 33.9 % (32.0-36.0); MONO % 5.5 % (0.0-8.0); NEUT % 80.9 % (16.0-70.0); PLATELET COUNT 113 TH/MM3 (150-450); RED CELL DISTRIBUTION WIDTH 17.3 % (11.6-17.2); WHITE BLOOD COUNT 4.6 TH/MM3 (4.0-11.0)
[2017-03-29 07:16] LABS: BICARBONATE 20.3 MEQ/L (21.0-32.0); MAGNESIUM 1.9 MG/DL (1.5-2.5); TOTAL BILIRUBIN ADULT 0.3 MG/DL (0.2-1.0)
[2017-03-29 07:44] LABS: CALCIUM-PROTEIN CORRECTED 7.1 MG/DL (8.5-10.1)
[2017-03-29] MEDS: DOCUSATE SODIUM 50 MG/SENNA 8.6 MG TAB PO SCH ×2 (08:29→20:37)
[2017-03-29] MEDS: COBICISTAT PO SCH (08:31)
[2017-03-29] MEDS: DARUNAVIR PO SCH (08:31)
[2017-03-29] MEDS: ASPIRIN 81 MG CHEW TAB CHEW SCH (08:31)
[2017-03-29] MEDS: PANTOPRAZOLE SOD 40 MG DELAYED RELEASE TAB PO SCH ×2 (08:31→20:33)
[2017-03-29] MEDS: VANCOMYCIN 500 MG VIAL (FOR ORAL USE ONLY) PO SCH ×4 (08:32→20:33)
[2017-03-29] MEDS: DOLUTEGRAVIR SODIUM 50 MG TAB PO SCH (08:32)
[2017-03-29] MEDS: ABACAVIR SULFATE 300 MG TAB PO SCH (08:32)
[2017-03-29] MEDS: RIFAXIMIN 550 MG TAB PO SCH ×2 (08:33→20:33)
[2017-03-29] MEDS: FLUCONAZOLE 100 MG TAB PO SCH (08:33)
[2017-03-29] MEDS: ATOVAQUONE SUSP 750 MG/5 ML UDC PO SCH (08:33)
[2017-03-29] MEDS: LACTOBACILLUS ACIDOPHILUS TAB PO SCH ×3 (08:33→17:00)
[2017-03-29] MEDS: METOPROLOL TARTRATE 25 MG TAB PO SCH ×2 (08:33→21:00)
[2017-03-29] MEDS: SODIUM CHLORIDE 0.9% FLUSH 10 ML FLUSH IV FLUSH SCH ×2 (09:00→20:37)
[2017-03-29] MEDS ORDERED: CALCIUM CHLORIDE INJ 1 GM in SODIUM CHLORIDE 0.9% INJ 90 ML IV ONE (09:00)
[2017-03-29] MEDS ORDERED: POTASSIUM PHOSPHATE INJ 30 MMOL in SODIUM CHLOR 0.9% 250 ML INJ 250 ML IV ONE ×2 (10:00→16:00)
--- NOTE | 2017-03-29 10:59 | PD.CONS ---
Consult Service Palliative Care Consult Requested By Dr. Antoine. . Primary Care Physician Jeremiah Garcia MD Reason for Consultation a. To assist with evaluation and management of symptoms including: debility , malnutrition, decreased appetite b. To assist medical decision maker(s) with: better understanding of current medical conditions; weighing benefits/burdens of medical treatment options; making medical treatment decisions. . HPI History of Present Illness The patient is a 52 year old female who presented to the ED on 03/27/17 c/o diarrhea for the past month with accompanying nausea, vomiting, and abdominal cramping. Patient has a past medical history significant for HIV, CVA, cirrhosis , and c. difficile colitis. Of note the patient has had 14 visits to the ED, 4 of which resulted in an admission with admitted mainly for diagnoses including abdominal pain, ascites, and c.difficile colitis since July of this year. It has also been reported that the patient has an ongoing issue with noncompliance regarding her HAART. ED workup included: Laboratory data: Hb, Hct: 30.1, Plt count: 113. Neut % : 82.3, Lipase: 605, Albumin: 1.6, Total Protein: 8.8, AST: 58. Stool: C. diff positive. Abdomen/Pelvis CT: Cirrhosis and portal hypertension with ascites and varices identified. Patient was admitted for abdominal pain, pancreatitis, and c.difficile colitis. ID and GI were also consulted to evaluate the patient. the patient was febrile and was found to have bandemia. Pending further laboratory workup to determine HIV/AIDS progression. Patient seen and examined in room with significant other at bedside. Appears to be resting comfortably in bed, denies any pain, nausea, or vomiting. Patient does endorse frequent bouts of diarrhea and states that the urge comes on so quickly she is unable to ambulate to the bedside commode in time. Dual visit with SAMUEL Nettles. Patient is known to palliative care from a previous admission, palliative was consulted to clarify goals of care as well as provide support and guidance throughout this hospitalization. Function/Cognitive Trajectory The patient has been in and out of the hospital over 14 times since the beginning of this year. She was living at home independently prior to this hospitalization, stating she was ambulatory with a walker. Her functional status has decreased over the past months as she continues to experience set backs and complications due to her multiple comorbidities. . Review of Systems Constitutional: COMPLAINS OF: Fatigue, Weight loss, Change in appetite, Generalized weakness Gastrointestinal: COMPLAINS OF: Abdominal pain, Diarrhea, Nausea, Vomiting, Difficulty Swallowing Integumentary: COMPLAINS OF: Pruritus Neurologic: COMPLAINS OF: Headache, Poor Balance Past Family Social History Coded Allergies: No Known Allergies (Verified , 03/24/17) Past Medical History HIV Esophageal stricture Schatzki's ring Gastritis Colitis Colonic polyps Diarrhea related to retrovirals CVA Ascites Cirrhosis . Past Surgical History Exploratory laparotomy Surgery for Ectopic EGD/Colonoscopy . Reported Medications Vancomycin Inj (Vancomycin HCl) 500 Mg Inj 500 Mg PO Q6HR 45 Days Metoprolol Tartrate 25 Mg Tab 12.5 Mg PO Q12HR Aspirin Low Strength (Aspirin) 81 Mg Chew 81 Mg CHEW DAILY Dicyclomine (Dicyclomine HCl) 20 Mg Tab 20 Mg PO TID PRN Acidophilus/l-Sporogenes (Lactobacillus Acidophilus) 1 Tab Tab 1 Tab PO TID Zofran (Ondansetron HCl) 4 Mg Tab 4 Mg PO Q6HR PRN Tramadol (Tramadol HCl) 50 Mg Tab 50 Mg PO Q6H PRN Azithromycin 600 Mg Tab 1,200 Mg PO Q7D 30 Days Mepron Liq (Atovaquone) 750 Mg/5 Ml Susp 1,500 Mg PO DAILY Fluconazole 100 Mg Tab 100 Mg PO DAILY 21 Days Prezcobix (Darunavir-Cobicistat) 800-150 Mg Tab 1 Tab PO DAILY Triumeq (Mrndwgid-Dngiidycwhtr-Qixtylmzxv) 600-50-300 Mg Tab 1 Tab PO DAILY . Current Medications Medications (Trade) Dose Ordered Sig/Sue Route Start Time Stop Time Status Last Admin Potassium Chloride/Dextrose/ Sod Cl 1,000 ml @ 100 mls/hr Q10H IV 03/27/17 13:57 03/29/17 05:57 (Compazine Supp) 25 mg Q12H PRN RECTAL 03/27/17 14:00 (Ambien) 5 mg HS PRN PO 03/27/17 14:00 (Lovenox Inj) 40 mg Q24H SQ 03/27/17 15:00 03/28/17 19:14 (Tylenol) 650 mg Q6H PRN PO 03/27/17 14:00 (Roxicodone) 10 mg Q4H PRN PO 03/27/17 14:00 03/29/17 06:18 (Morphine Inj) 2 mg Q3H PRN IV 03/27/17 14:00 (Morphine Inj) 4 mg Q3H PRN IV 03/27/17 14:00 (Roxicodone) 5 mg Q4H PRN PO 03/27/17 14:00 (Narcan Inj) 0.4 mg UNSCH PRN IV 03/27/17 14:00 (Karina-Colace) 1 tab BID PO 03/27/17 21:00 (Milk Of Magnesia Liq) 30 ml Q12H PRN PO 03/27/17 14:00 (Senokot) 17.2 mg Q12H PRN PO 03/27/17 14:00 (Dulcolax Supp) 10 mg DAILY PRN RECTAL 03/27/17 14:00 (Lactulose Liq) 30 ml DAILY PRN PO 03/27/17 14:00 (NS Flush) 2 ml UNSCH PRN IV FLUSH 03/27/17 14:00 (NS Flush) 2 ml BID IV FLUSH 03/27/17 21:00 Metronidazole 100 ml @ 100 mls/hr Q8H IV 03/27/17 20:00 03/29/17 03:22 (VANCOMYCIN for oral use only) 500 mg QID PO 03/27/17 18:00 03/29/17 08:32 (Lactinex) 1 tab TID PO 03/27/17 18:00 03/29/17 08:33 (Aspirin Chew) 81 mg DAILY CHEW 03/28/17 09:00 03/29/17 08:31 (Mepron Liq) 1,500 mg DAILY PO 03/28/17 09:00 03/29/17 08:33 (Zithromax) 1,200 mg Q7D PO 03/27/17 16:00 03/27/17 16:31 (Bentyl) 20 mg TID PRN PO 03/27/17 15:15 (Diflucan) 100 mg DAILY PO 03/28/17 09:00 03/29/17 08:33 (Ziagen) 600 mg DAILY PO 03/28/17 09:00 03/29/17 08:32 (Zofran Odt) 4 mg Q6HR PRN PO 03/27/17 15:15 03/28/17 03:28 (Protonix) 40 mg Q12HR PO 03/27/17 21:00 03/29/17 08:31 (Lopressor) 12.5 mg Q12HR PO 03/27/17 21:00 03/28/17 21:51 (Pill Splitter) 1 ea UNSCH PRN OTHER 03/27/17 15:30 (Epivir) 300 mg DAILY PO 03/28/17 09:00 03/29/17 08:32 (Xifaxan) 550 mg BID PO 03/27/17 21:00 03/29/17 08:33 Non-Formulary Medication DARUNAVIR AND COBICIS... DAILY PO 03/29/17 09:00 03/29/17 08:31 Piperacillin Sod/ Tazobactam Sod 50 ml @ 100 mls/hr Q8H IV 03/28/17 17:00 03/29/17 08:30 Potassium Phosphate 30 mmol/ Sodium Chloride 260 ml @ 43.333 mls/ hr ONCE ONCE IV 03/29/17 10:00 03/29/17 15:59 Potassium Phosphate 30 mmol/ Sodium Chloride 260 ml @ 43.333 mls/ hr ONCE ONCE IV 03/29/17 16:00 03/29/17 21:59 Calcium Chloride 1 gm/Sodium Chloride 100 ml @ 100 mls/hr ONCE ONCE IV 03/29/17 09:00 03/29/17 09:59 . Family History Mother with cirrhosis of the liver. . Substance Use Tobacco: Past, stopped smoking recently Alcohol: Occasional Prescription med abuse: None. Illicits:Hx of cocaine use . Psychosocial History Lives with significant other, never . Father still alive. 17 siblings. Spiritual/Cultural Factors Spiritism. . Health Care Surrogate: Copy in medical record Date completed: 11/18/16 . Health Care Surrogate(s): Grant Ruelas (nephew)-[phone] Alternate HCS: Brandon Munoz: [phone] . Today's verbally stated goals: Patient desires to continue aggressive goals of care. . Ethical and Legal Issues None known. Physical Exam Vital Signs Date Time Temp Pulse Resp B/P (MAP) Pulse Ox O2 Delivery O2 Flow Rate FiO2 03/29/17 08:00 96.9 82 20 96/56 (69) 97 03/29/17 07:18 18 03/29/17 00:00 96.2 75 17 95/56 (69) 100 03/28/17 22:00 87 03/28/17 20:00 97.6 81 19 108/59 (75) 100 03/28/17 16:00 99.7 80 16 94/55 (68) 97 03/28/17 12:00 98.3 76 16 128/70 (89) 99 03/28/17 11:02 97 . 03/29/17 03/30/17 18:59 06:59 Intake Total 240 ml Balance 240 ml Intake Oral 240 ml . Exam CONSTITUTIONAL/GENERAL: This is a cachectic chronically ill female patient. TUBES/LINES/DRAINS: PIV x 1, Conde SKIN: Patient itching BUE and back throughout entire exam. No wounds seen anteriorly. Skin temperature appropriate. Not diaphoretic. HEAD: Atraumatic. Normocephalic. EYES: Pupils equal and round and reactive. Extraocular motions intact. No scleral icterus. No injection or drainage. Fundi not examined. ENT: Hearing grossly normal. Nose without bleeding or purulent drainage. NECK: Trachea midline. Supple, nontender. CARDIOVASCULAR: Regular rate and rhythm without murmurs, gallops, or rubs. No JVD. Peripheral pulses symmetric. RESPIRATORY/CHEST: Symmetric, unlabored respirations. Clear to auscultation. Breath sounds equal bilaterally. No wheezes, rales, or rhonchi. GASTROINTESTINAL: Abdomen soft, nondistended. Tender in RUQ, RLQ. Bowel sounds present. GENITOURINARY: Without palpable bladder distension. Conde catheter in place. MUSCULOSKELETAL: Extremities without clubbing, cyanosis, or edema. No mottling or clubbing. NEUROLOGICAL: Awake and alert. Motor and sensory grossly within normal limits. Slow to answer questions, possesses limited insight. Follows commands. Moves all extremities. PSYCHIATRIC: No obvious anxiety/depression. no apparent hallucinations or other psychotic thought process. . Diagnostic Tests Laboratory Laboratory Tests Test 03/27/17 11:00 03/27/17 12:50 03/27/17 13:20 03/27/17 23:28 White Blood Count 4.6 TH/MM3 (4.0-11.0) Red Blood Count 3.12 MIL/MM3 (4.00-5.30) Hemoglobin 10.0 GM/DL (11.6-15.3) Hematocrit 30.1 % (35.0-46.0) Mean Corpuscular Volume 96.5 FL (80.0-100.0) Mean Corpuscular Hemoglobin 32.2 PG (27.0-34.0) Mean Corpuscular Hemoglobin Concent 33.4 % (32.0-36.0) Red Cell Distribution Width 16.7 % (11.6-17.2) Platelet Count 113 TH/MM3 (150-450) Mean Platelet Volume 10.3 FL (7.0-11.0) Neutrophils (%) (Auto) 82.3 % (16.0-70.0) Lymphocytes (%) (Auto) 6.9 % (9.0-44.0) Monocytes (%) (Auto) 7.5 % (0.0-8.0) Eosinophils (%) (Auto) 2.3 % (0.0-4.0) Basophils (%) (Auto) 1.0 % (0.0-2.0) Neutrophils # (Auto) 3.8 TH/MM3 (1.8-7.7) Lymphocytes # (Auto) 0.3 TH/MM3 (1.0-4.8) Monocytes # (Auto) 0.3 TH/MM3 (0-0.9) Eosinophils # (Auto) 0.1 TH/MM3 (0-0.4) Basophils # (Auto) 0.0 TH/MM3 (0-0.2) CBC Comment DIFF FINAL Differential Comment Blood Urea Nitrogen 11 MG/DL (7-18) Creatinine 1.00 MG/DL (0.50-1.00) Random Glucose 72 MG/DL (74-106) Total Protein 8.8 GM/DL (6.4-8.2) Albumin 1.6 GM/DL (3.4-5.0) Calcium Level 7.3 MG/DL (8.5-10.1) Alkaline Phosphatase 117 U/L (45-117) Aspartate Amino Transf (AST/SGOT) 58 U/L (15-37) Alanine Aminotransferase (ALT/SGPT) 18 U/L (10-53) Total Bilirubin 0.6 MG/DL (0.2-1.0) Sodium Level 140 MEQ/L (136-145) Potassium Level 4.1 MEQ/L (3.5-5.1) Chloride Level 112 MEQ/L (98-107) Carbon Dioxide Level 19.5 MEQ/L (21.0-32.0) Anion Gap 9 MEQ/L (5-15) Estimat Glomerular Filtration Rate 70 ML/MIN (>89) Protein Corrected Calcium 6.6 MG/DL (8.5-10.1) Triglycerides Level 134 MG/DL (42-150) Lipase 605 U/L (73-393) Urine Color YELLOW (YELLW/STRAW) Urine Turbidity HAZY (CLEAR) Urine pH 6.0 (5.0-8.5) Urine Specific [place] 1.010 (1.002-1.035) Urine Protein TRACE mg/dL (NEG-TRACE) Urine Glucose (UA) NEG mg/dL (NEG) Urine Ketones NEG mg/dL (NEG) Urine Occult Blood MOD (NEG) Urine Nitrite POS (NEG) Urine Bilirubin NEG (NEG) Urine Urobilinogen LESS THAN 2.0 MG/DL (LESS Urine Leukocyte Esterase LARGE (NEG) Urine RBC 2 /hpf (0-3) Urine WBC 44 /hpf (0-5) Urine Bacteria MOD /hpf (NONE) Microscopic Urinalysis Comment CULTURE INDICATED Stool C. difficile Toxin (PCR) POSITIVE (NEGATIVE) Stl C. difficile Toxin Epiderm 027 PRESUMPTIVE POSITIVE Ammonia 31 MCMOL/L (11-32) Test 03/28/17 04:08 03/29/17 06:15 White Blood Count 7.9 TH/MM3 (4.0-11.0) 4.6 TH/MM3 (4.0-11.0) Red Blood Count 2.64 MIL/MM3 (4.00-5.30) 2.40 MIL/MM3 (4.00-5.30) Hemoglobin 8.4 GM/DL (11.6-15.3) 7.8 GM/DL (11.6-15.3) Hematocrit 25.4 % (35.0-46.0) 23.0 % (35.0-46.0) Mean Corpuscular Volume 96.3 FL (80.0-100.0) 96.1 FL (80.0-100.0) Mean Corpuscular Hemoglobin 31.9 PG (27.0-34.0) 32.6 PG (27.0-34.0) Mean Corpuscular Hemoglobin Concent 33.1 % (32.0-36.0) 33.9 % (32.0-36.0) Red Cell Distribution Width 16.5 % (11.6-17.2) 17.3 % (11.6-17.2) Platelet Count 109 TH/MM3 (150-450) 113 TH/MM3 (150-450) Mean Platelet Volume 10.6 FL (7.0-11.0) 9.9 FL (7.0-11.0) CBC Comment AUTO DIFF DIFF FINAL Differential Total Cells Counted 100 Neutrophils % (Manual) 64 % (16-70) Band Neutrophils % 32 % (0-6) Lymphocytes % 2 % (9-44) Monocytes % 1 % (0-8) Neutrophils # (Manual) 7.6 TH/MM3 (1.8-7.7) Differential Comment FINAL DIFF MANUAL Blastocytes 1 % (0-0) Platelet Estimate LOW (NORMAL) Platelet Morphology Comment NORMAL (NORMAL) Ovalocytes 1+ (NORMAL) Blood Urea Nitrogen 11 MG/DL (7-18) 9 MG/DL (7-18) Creatinine 0.96 MG/DL (0.50-1.00) 1.01 MG/DL (0.50-1.00) Random Glucose 87 MG/DL (74-106) 132 MG/DL (74-106) Total Protein 7.6 GM/DL (6.4-8.2) 6.8 GM/DL (6.4-8.2) Albumin 1.3 GM/DL (3.4-5.0) 1.2 GM/DL (3.4-5.0) Calcium Level 7.4 MG/DL (8.5-10.1) 6.9 MG/DL (8.5-10.1) Phosphorus Level 2.2 MG/DL (2.5-4.9) 1.6 MG/DL (2.5-4.9) Magnesium Level 2.0 MG/DL (1.5-2.5) 1.9 MG/DL (1.5-2.5) Alkaline Phosphatase 91 U/L (45-117) 77 U/L (45-117) Aspartate Amino Transf (AST/SGOT) 32 U/L (15-37) 23 U/L (15-37) Alanine Aminotransferase (ALT/SGPT) 13 U/L (10-53) 11 U/L (10-53) Total Bilirubin 0.5 MG/DL (0.2-1.0) 0.3 MG/DL (0.2-1.0) Sodium Level 141 MEQ/L (136-145) 141 MEQ/L (136-145) Potassium Level 3.3 MEQ/L (3.5-5.1) 3.0 MEQ/L (3.5-5.1) Chloride Level 115 MEQ/L (98-107) 115 MEQ/L (98-107) Carbon Dioxide Level 18.0 MEQ/L (21.0-32.0) 20.3 MEQ/L (21.0-32.0) Anion Gap 8 MEQ/L (5-15) 6 MEQ/L (5-15) Estimat Glomerular Filtration Rate 74 ML/MIN (>89) 69 ML/MIN (>89) Hemoglobin A1c 5.1 % (4.3-6.0) Protein Corrected Calcium 7.2 MG/DL (8.5-10.1) 7.1 MG/DL (8.5-10.1) Lipase 109 U/L (73-393) 261 U/L (73-393) Free Thyroxine 1.03 NG/DL (0.76-1.46) Thyroid Stimulating Hormone 3rd Gen 2.450 uIU/ML (0.358-3.740) Neutrophils (%) (Auto) 80.9 % (16.0-70.0) Lymphocytes (%) (Auto) 7.8 % (9.0-44.0) Monocytes (%) (Auto) 5.5 % (0.0-8.0) Eosinophils (%) (Auto) 5.3 % (0.0-4.0) Basophils (%) (Auto) 0.5 % (0.0-2.0) Neutrophils # (Auto) 3.7 TH/MM3 (1.8-7.7) Lymphocytes # (Auto) 0.4 TH/MM3 (1.0-4.8) Monocytes # (Auto) 0.3 TH/MM3 (0-0.9) Eosinophils # (Auto) 0.2 TH/MM3 (0-0.4) Basophils # (Auto) 0.0 TH/MM3 (0-0.2) Ammonia 32 MCMOL/L (11-32) Amylase Level 96 U/L (25-115) . Result Diagram: 03/29/17 0615 03/29/17 0615 Microbiology Microbiology Date/Time Source Procedure Growth Status 03/27/17 16:20 Blood Peripheral Aerobic Blood Culture - Preliminary NO GROWTH IN 1 DAY Resulted 03/27/17 16:20 Blood Peripheral Anaerobic Blood Culture - Preliminary NO GROWTH IN 1 DAY Resulted 03/27/17 16:10 Blood Peripheral Aerobic Blood Culture - Preliminary NO GROWTH IN 1 DAY Resulted 03/27/17 16:10 Blood Peripheral Anaerobic Blood Culture - Preliminary NO GROWTH IN 1 DAY Resulted 03/27/17 13:20 Stool Stool Acid Fast Stain Pending Received 03/27/17 13:20 Stool Stool Mycobacterial Culture Pending Received 03/27/17 13:20 Stool Stool Cryptosporidium Exam - Final NEGATIVE - NO CRYPTOSPORIDIUM ANTIGEN... Complete 03/27/17 13:20 Stool Stool Stool Pus (FLY) - Final RARE WBC Complete 03/27/17 13:20 Stool Stool Giardia Antigen (FLY) - Final NEGATIVE - NO GIARDIA ANTIGEN DETECTE... Complete 03/27/17 13:20 Stool Stool - Final NO ENTERIC PATHOGENS DETECTED BY PCR... Complete 03/27/17 12:50 Urine Clean Catch Urine Culture - Final Staphylococcus Aureus Complete . Imaging Last 72 hours Impressions Abdomen/Pelvis CT 03/27/17 1040 Signed Impressions: Service Date/Time: Monday, March 27, 2017 11:43 - CONCLUSION: 1. Cirrhosis and portal hypertension with ascites and varices identified. Joe Palma MD Chest X-Ray 03/27/17 0000 Signed Impressions: Service Date/Time: Monday, March 27, 2017 15:53 - CONCLUSION: Stable bibasilar patchy opacities. Rad Cueto MD Patient/Family Conference Present at Family Conference: Brandon Munoz (significant other) . Family Conference Location: Bedside Issues Discussed: * Palliative care role, purpose, approach * Additional medical, psychosocial, and spiritual history * Patients general health, functional status, and cognitive changes in the months leading up to the current hospitalization * Patient/family understanding of the current medical problems * Patient/family understanding of prognosis * Discussed code status * [facility] completed and verified it was current * Current medical treatment options and benefits/burdens of those options * Likely scenarios comparing ongoing aggressive care with a transition to comfort measures only * Questions answered to the best of my ability * Palliative care contact information provided Assessment and Plan Disease Oriented Problem List: (1) HIV (human immunodeficiency virus infection) (2) Liver cirrhosis (3) Ascites (4) C. difficile colitis Symptom Scale: (1) Debility (2) Malnutrition (3) Decrease in appetite Pertinent Non-Medical Issues Psychosocial: Lives with significant other, never . No children. Father still alive. 17 siblings. Spiritual: Spiritism Legal: None known. Ethical issues impacting care: None known. . Important Contacts Primary: Grant Ruelas ([place]) [phone] Brandon Munoz ( significant other/ not legally ). [phone] . Prognosis Patient diagnosed with HIV in 2012, long standing history of noncompliance with treatment and multiple other comorbidities. The patient has had a recent functional decline, she has been to the ED approximately 10 times this year and admitted about 4 times. Overall prognosis is poor. . Code Status: Full Code Plan * CODE STATUS:FULL CODE. Patient has opted to remain a full code despite signing a community DNR on her last admission in 11/08. Further clarification was provided on the details of what cardiopulmonary resuscitation and artificial life support entails. Also discussed was the probability of a minimal chance for a meaningful recovery due to her debilitated status and multiple comorbidities if she was to suffer such an event. The patient still opted to remain a full code and stated "do everything'. * GOALS: Aggressive. Patient states she wants to continue treatment and "get better". She also states she does not understand why she is not getting better and continues to have abdominal pain and diarrhea. Education was provided on c. diff as well as her debilitated and immunocompromised status. Patient seems to have limited insight on the severity of her condition and disease process. * SYMPTOMS: --debility: Patient continues to experience a functional decline due to her multiple comorbidities. PT has been consulted to work with the patient but she has declined participation. No recommendation at this time. --malnutrition: Patient is at an ongoing risk for malnutrition due to lack of appetite and disease process. Current weight is 46.7kg last admission was 47.5kg in 02/07. Albumin: 1.2. Patient would benefit from a career development manager consult. --decreased appetite: Patient may benefit from an appetite stimulant, such as megace. Thank you for the opportunity to participate in the care of Ms. Helm. Attestation To help prompt me to consider important information that might be impacting today's encounter and assessment, information from prior notes written by myself or my colleagues may have been "brought forward" into today's note. My signature on this note, however, is an attestation that I personally performed the exam, history, and/or decision-making noted today, and, unless otherwise indicated, the interactions with patient, family, and staff as well as the review of records all occurred today. I also attest that the listed assessment and stated plan reflect my best clinical judgment today based on the combination of historical information, prior notes, and today's exam/ interactions. When time spent is documented, it refers only to time spent today by the signer, or if indicated, combined time spent today by collaborating physician/nurse practitioner. Harriett Ahmadi Mar 29, 2017 10:59
--- NOTE | 2017-03-29 15:11 | HHI.GIFU ---
Subjective Remarks Resting in bed. Had 4 loose stools today- worse after drinking coffee this morning. No bleeding. Abdominal pain improved. Objective Vitals I&O Vital Signs Date Time Temp Pulse Resp B/P (MAP) Pulse Ox O2 Delivery O2 Flow Rate FiO2 03/29/17 13:53 97 03/29/17 13:05 18 03/29/17 12:00 96.9 70 20 125/69 (87) 100 03/29/17 08:00 96.9 82 20 96/56 (69) 97 03/29/17 00:00 96.2 75 17 95/56 (69) 100 03/28/17 22:00 87 03/28/17 20:00 97.6 81 19 108/59 (75) 100 03/28/17 16:00 99.7 80 16 94/55 (68) 97 I/O 03/28/17 03/28/17 03/28/17 03/29/17 03/29/17 03/29/17 06:59 14:59 22:59 06:59 14:59 22:59 Intake Total 0 ml 2500 ml 838 ml 480 ml Output Total 400 ml 950 ml 550 ml Balance -400 ml 1550 ml 288 ml 480 ml Intake Oral 0 ml 240 ml 0 ml 480 ml IV Total 2260 ml 838 ml Output Urine Total 400 ml 950 ml 550 ml # Bowel Movements 2 6 Laboratory Laboratory Tests Test 03/29/17 06:15 White Blood Count 4.6 Red Blood Count 2.40 Hemoglobin 7.8 Hematocrit 23.0 Mean Corpuscular Volume 96.1 Mean Corpuscular Hemoglobin 32.6 Mean Corpuscular Hemoglobin Concent 33.9 Red Cell Distribution Width 17.3 Platelet Count 113 Mean Platelet Volume 9.9 Neutrophils (%) (Auto) 80.9 Lymphocytes (%) (Auto) 7.8 Monocytes (%) (Auto) 5.5 Eosinophils (%) (Auto) 5.3 Basophils (%) (Auto) 0.5 Neutrophils # (Auto) 3.7 Lymphocytes # (Auto) 0.4 Monocytes # (Auto) 0.3 Eosinophils # (Auto) 0.2 Basophils # (Auto) 0.0 CBC Comment DIFF FINAL Differential Comment Blood Urea Nitrogen 9 Creatinine 1.01 Random Glucose 132 Total Protein 6.8 Albumin 1.2 Calcium Level 6.9 Phosphorus Level 1.6 Magnesium Level 1.9 Alkaline Phosphatase 77 Aspartate Amino Transf (AST/SGOT) 23 Alanine Aminotransferase (ALT/SGPT) 11 Total Bilirubin 0.3 Sodium Level 141 Potassium Level 3.0 Chloride Level 115 Carbon Dioxide Level 20.3 Anion Gap 6 Estimat Glomerular Filtration Rate 69 Protein Corrected Calcium 7.1 Ammonia 32 Amylase Level 96 Lipase 261 Date/Time Source Procedure Growth Status 03/27/17 16:20 Blood Peripheral Aerobic Blood Culture - Preliminary NO GROWTH IN 2 DAYS Resulted 03/27/17 16:20 Blood Peripheral Anaerobic Blood Culture - Preliminary NO GROWTH IN 2 DAYS Resulted 03/27/17 13:20 Stool Stool Acid Fast Stain Pending Received 03/27/17 13:20 Stool Stool Mycobacterial Culture Pending Received 03/27/17 12:50 Urine Clean Catch Urine Culture - Final Staphylococcus Aureus Complete Imaging Last Impressions Abdomen/Pelvis CT 03/27/17 1040 Signed Impressions: Service Date/Time: Monday, March 27, 2017 11:43 - CONCLUSION: 1. Cirrhosis and portal hypertension with ascites and varices identified. Joe Palma MD Chest X-Ray 03/27/17 0000 Signed Impressions: Service Date/Time: Monday, March 27, 2017 15:53 - CONCLUSION: Stable bibasilar patchy opacities. Rad Cueto MD Physical Exam HEENT: Normocephalic; atraumatic; no jaundice. NECK: Neck is supple. CHEST: CTA CARDIAC: RRR with no murmur gallop or rubs. ABDOMEN: Soft, mild distention, mild diffuse tenderness; bowel sounds are present x 4. EXTREMITIES: No clubbing, cyanosis, or edema. SKIN: Normal; no rash; no jaundice. POTTERY MACHINE OPERATOR: Lethargic Assessment and Plan Plan ASSESSMENT - C difficile diarrhea. Epid 027 (+). CT Abdomen/Pelvis 03/27/17--CONCLUSION: 1. Cirrhosis and portal hypertension with ascites and varices identified. Flagyl, oral vanco. 4 loose stools today. - Liver cirrhosis with evidence of portal hypertension, ascites, and varices on CT imaging. LFTs stable. T. Bili 0.3, AST 23, ALT 11, Alk Phosph 77 - Anemia. EGD/Colonoscopy (01/05/16)---> normal duodenum, gastritis in the antrum, stricture/Schatzki's ring distal esophagus status post dilatation 14 savory guidewire, hiatal hernia, 2 diminutive polyps in cecum 5 mm and 6 mm each, cold biopsy with complete removal, 2 polyps at hepatic flexure 6 mm each cold biopsy with complete removal, no normal colon otherwise random biopsies of the ascending and descending colon, medium internal hemorrhoids, decreased sphincter tone. Pathology with small intestinal mucosa without significant histopathologic abnormality, severe chronic gastritis, negative for helicobacter pylori, hepatic flexure adenomatous polyp, ascending colonic mucosa without significant histopathologic abnormality, adenomatous polyp cecum, descending colon with colonic mucosa without significant histopathologic abnormality. 7.8/ 23.0. No active bleeding. - MADELINE, Hypokalemia per attending. - HIV/AIDS, per attending. PLAN: - JARAD - Continue Vancomycin - Continue Flagyl - Monitor labs - Supportive care - Further recommendations to follow based on results of above. - Pt seen and examined by Dr. Singletary and myself and this note is written on his behalf Sil Ash Mar 29, 2017 15:11
[2017-03-29] MEDS: ENOXAPARIN SODIUM 40 MG/0.4 ML SYRINGE SQ SCH (15:27)
--- NOTE | 2017-03-29 15:28 | HHI.PR ---
Subjective Remarks This patient came in through the emergency department and was seen by the emergency room physician and was recommended for admission. The patient is a 52-year-old -[place] female with known history of HIV and AIDS who has been having diarrhea for about a month. She was here about two days and had diffuse abdominal cramping associated with nausea and vomiting and abdominal pain. The patient is not a very good historian and is not able to give much information. Everything was obtained from chart review. - SUSPECT PATIENT HAS FULL BLOWN AIDS AND NOT JUST HIV APPEARS TO HAVE NONCOMPLIANCE STILL HAVING DIARRHEA MORE AWAKE AND ALERT TODAY ANSWERING SOME QUESTIONS DW RN AND PT AND FAMILY WILL GET PALLIATIVE CARE CONSULT - MORE AWAKE AND ALERT TODAY STILL HAVING DIARRHEA BUT LESS ANSWERING MORE QUESTIONS SEEN BY GI, ID AND PALLIATIVE CARE DW RN AND PT Objective Vitals Vital Signs Date Time Temp Pulse Resp B/P (MAP) Pulse Ox O2 Delivery O2 Flow Rate FiO2 03/29/17 13:53 97 03/29/17 13:05 18 03/29/17 12:00 96.9 70 20 125/69 (87) 100 03/29/17 08:00 96.9 82 20 96/56 (69) 97 03/29/17 00:00 96.2 75 17 95/56 (69) 100 03/28/17 22:00 87 03/28/17 20:00 97.6 81 19 108/59 (75) 100 03/28/17 16:00 99.7 80 16 94/55 (68) 97 I/O 03/28/17 03/28/17 03/28/17 03/29/17 03/29/17 03/29/17 07:00 15:00 23:00 07:00 15:00 23:00 Intake Total 0 ml 2500 ml 838 ml 480 ml Output Total 400 ml 950 ml 550 ml Balance -400 ml 1550 ml 288 ml 480 ml Intake Oral 0 ml 240 ml 0 ml 480 ml IV Total 2260 ml 838 ml Output Urine Total 400 ml 950 ml 550 ml # Bowel Movements 2 6 Result Diagram: 03/29/17 0615 03/29/17 0615 Other Results Laboratory Tests Test 03/27/17 11:00 03/27/17 12:50 03/27/17 13:20 03/27/17 23:28 White Blood Count 4.6 TH/MM3 Red Blood Count 3.12 MIL/MM3 Hemoglobin 10.0 GM/DL Hematocrit 30.1 % Mean Corpuscular Volume 96.5 FL Mean Corpuscular Hemoglobin 32.2 PG Mean Corpuscular Hemoglobin Concent 33.4 % Red Cell Distribution Width 16.7 % Platelet Count 113 TH/MM3 Mean Platelet Volume 10.3 FL Neutrophils (%) (Auto) 82.3 % Lymphocytes (%) (Auto) 6.9 % Monocytes (%) (Auto) 7.5 % Eosinophils (%) (Auto) 2.3 % Basophils (%) (Auto) 1.0 % Neutrophils # (Auto) 3.8 TH/MM3 Lymphocytes # (Auto) 0.3 TH/MM3 Monocytes # (Auto) 0.3 TH/MM3 Eosinophils # (Auto) 0.1 TH/MM3 Basophils # (Auto) 0.0 TH/MM3 CBC Comment DIFF FINAL Differential Comment Blood Urea Nitrogen 11 MG/DL Creatinine 1.00 MG/DL Random Glucose 72 MG/DL Total Protein 8.8 GM/DL Albumin 1.6 GM/DL Calcium Level 7.3 MG/DL Alkaline Phosphatase 117 U/L Aspartate Amino Transf (AST/SGOT) 58 U/L Alanine Aminotransferase (ALT/SGPT) 18 U/L Total Bilirubin 0.6 MG/DL Sodium Level 140 MEQ/L Potassium Level 4.1 MEQ/L Chloride Level 112 MEQ/L Carbon Dioxide Level 19.5 MEQ/L Anion Gap 9 MEQ/L Estimat Glomerular Filtration Rate 70 ML/MIN Protein Corrected Calcium 6.6 MG/DL Triglycerides Level 134 MG/DL Lipase 605 U/L Urine Color YELLOW Urine Turbidity HAZY Urine pH 6.0 Urine Specific [place] 1.010 Urine Protein TRACE mg/dL Urine Glucose (UA) NEG mg/dL Urine Ketones NEG mg/dL Urine Occult Blood MOD Urine Nitrite POS Urine Bilirubin NEG Urine Urobilinogen LESS THAN 2.0 MG/DL Urine Leukocyte Esterase LARGE Urine RBC 2 /hpf Urine WBC 44 /hpf Urine Bacteria MOD /hpf Microscopic Urinalysis Comment CULTURE INDICATED Stool C. difficile Toxin (PCR) POSITIVE Stl C. difficile Toxin Epiderm 027 PRESUMPTIVE POSITIVE Ammonia 31 MCMOL/L Test 03/28/17 04:08 03/29/17 06:15 White Blood Count 7.9 TH/MM3 4.6 TH/MM3 Red Blood Count 2.64 MIL/MM3 2.40 MIL/MM3 Hemoglobin 8.4 GM/DL 7.8 GM/DL Hematocrit 25.4 % 23.0 % Mean Corpuscular Volume 96.3 FL 96.1 FL Mean Corpuscular Hemoglobin 31.9 PG 32.6 PG Mean Corpuscular Hemoglobin Concent 33.1 % 33.9 % Red Cell Distribution Width 16.5 % 17.3 % Platelet Count 109 TH/MM3 113 TH/MM3 Mean Platelet Volume 10.6 FL 9.9 FL CBC Comment AUTO DIFF DIFF FINAL Differential Total Cells Counted 100 Neutrophils % (Manual) 64 % Band Neutrophils % 32 % Lymphocytes % 2 % Monocytes % 1 % Neutrophils # (Manual) 7.6 TH/MM3 Differential Comment FINAL DIFF MANUAL Blastocytes 1 % Platelet Estimate LOW Platelet Morphology Comment NORMAL Ovalocytes 1+ Blood Urea Nitrogen 11 MG/DL 9 MG/DL Creatinine 0.96 MG/DL 1.01 MG/DL Random Glucose 87 MG/DL 132 MG/DL Total Protein 7.6 GM/DL 6.8 GM/DL Albumin 1.3 GM/DL 1.2 GM/DL Calcium Level 7.4 MG/DL 6.9 MG/DL Phosphorus Level 2.2 MG/DL 1.6 MG/DL Magnesium Level 2.0 MG/DL 1.9 MG/DL Alkaline Phosphatase 91 U/L 77 U/L Aspartate Amino Transf (AST/SGOT) 32 U/L 23 U/L Alanine Aminotransferase (ALT/SGPT) 13 U/L 11 U/L Total Bilirubin 0.5 MG/DL 0.3 MG/DL Sodium Level 141 MEQ/L 141 MEQ/L Potassium Level 3.3 MEQ/L 3.0 MEQ/L Chloride Level 115 MEQ/L 115 MEQ/L Carbon Dioxide Level 18.0 MEQ/L 20.3 MEQ/L Anion Gap 8 MEQ/L 6 MEQ/L Estimat Glomerular Filtration Rate 74 ML/MIN 69 ML/MIN Hemoglobin A1c 5.1 % Protein Corrected Calcium 7.2 MG/DL 7.1 MG/DL Lipase 109 U/L 261 U/L Free Thyroxine 1.03 NG/DL Thyroid Stimulating Hormone 3rd Gen 2.450 uIU/ML Neutrophils (%) (Auto) 80.9 % Lymphocytes (%) (Auto) 7.8 % Monocytes (%) (Auto) 5.5 % Eosinophils (%) (Auto) 5.3 % Basophils (%) (Auto) 0.5 % Neutrophils # (Auto) 3.7 TH/MM3 Lymphocytes # (Auto) 0.4 TH/MM3 Monocytes # (Auto) 0.3 TH/MM3 Eosinophils # (Auto) 0.2 TH/MM3 Basophils # (Auto) 0.0 TH/MM3 Ammonia 32 MCMOL/L Amylase Level 96 U/L Imaging Last Impressions Abdomen/Pelvis CT 03/27/17 1040 Signed Impressions: Service Date/Time: Monday, March 27, 2017 11:43 - CONCLUSION: 1. Cirrhosis and portal hypertension with ascites and varices identified. Joe Palma MD Chest X-Ray 03/27/17 0000 Signed Impressions: Service Date/Time: Monday, March 27, 2017 15:53 - CONCLUSION: Stable bibasilar patchy opacities. Rad Cueto MD Objective Remarks GENERAL: AWAKE AND ALERT TALKATIVE AND COOPERATIVE- VERY FRAIL APPEARING SKIN: Warm and dry. HEAD: Atraumatic. Normocephalic. EYES: Pupils equal and round. No scleral icterus. No injection or drainage. EOMI ENT: No nasal bleeding or discharge. Mucous membranes pink and moist.TONGUE IS MIDLINE NECK: Trachea midline. No JVD. SUPPLE CARDIOVASCULAR: Regular rate and rhythm. S1, S2 NO S3 OR S4 NO HEAVE OR THRILL OR RUB RESPIRATORY: No accessory muscle use. Clear to auscultation. Breath sounds equal bilaterally. GASTROINTESTINAL: Abdomen soft, non-tender, nondistended. Hepatic and splenic margins not palpable. CACHECTIC MUSCULOSKELETAL: Extremities without clubbing, cyanosis, or edema. No obvious deformities. NEUROLOGICAL: Awake and alert. No obvious cranial nerve deficits. Motor grossly within normal limits. 4 out of 5 muscle strength in the arms and legs. Normal speech. PSYCHIATRIC: More mood and affect; insight and judgment improved. Medications and IVs Current Medications Metronidazole 100 ml @ 100 mls/hr ONCE ONCE IV Last administered on 03/27/17 11:50; Start 03/27/17 at 10:30; Stop 03/27/17 at 11:29; Status DC Sodium Chloride 1,000 ml @ 1,000 mls/hr Q1H IV Last administered on 03/27/17 11:50; Start 03/27/17 at 10:30; Stop 03/27/17 at 11:29; Status DC Calcium Gluconate 2 gm/Sodium Chloride 120 ml @ 120 mls/hr ONCE ONCE IV Last administered on 03/27/17 13:55; Start 03/27/17 at 12:30; Stop 03/27/17 at 13:29; Status DC Hydromorphone HCl (Dilaudid Pf Inj) 0.5 mg ONCE ONCE IV PUSH Last administered on 03/27/17 13:55; Start 03/27/17 at 13:30; Stop 03/27/17 at 13:31; Status DC Potassium Chloride/Dextrose/ Sod Cl 1,000 ml @ 100 mls/hr Q10H IV Last administered on 03/29/17 05:57; Start 03/27/17 at 13:57 Sodium Chloride (NS Flush) 2 ml UNSCH PRN IV FLUSH FLUSH AFTER USING IV ACCESS ; Start 03/27/17 at 14:00; Stop 03/27/17 at 14:11; Status DC Sodium Chloride (NS Flush) 2 ml BID IV FLUSH ; Start 03/27/17 at 21:00; Stop 03/27 at 21:00; Status DC Ondansetron HCl (Zofran Inj) 4 mg Q6H PRN IVP NAUSEA OR VOMITING; Start at 14:00; Stop 03/27/17 at 16:01; Status DC Prochlorperazine (Compazine Supp) 25 mg Q12H PRN RECTAL NAUSEA OR VOMITING; Start 03/27/17 at 14:00 Zolpidem Tartrate (Ambien) 5 mg HS PRN PO INSOMNIA; Start 03/27/17 at 14:00 Enoxaparin Sodium (Lovenox Inj) 40 mg Q24H SQ Last administered on 03/28/17 19: 14; Start 03/27/17 at 15:00 Acetaminophen (Tylenol) 650 mg Q6H PRN PO PAIN SCALE 1 TO 2; Start 03/27/17 at 14:00 Oxycodone HCl (Roxicodone) 10 mg Q4H PRN PO PAIN SCALE 6 TO 10 Last administered on 03/29/17 12:05; Start 03/27/17 at 14:00 Morphine Sulfate (Morphine Inj) 2 mg Q3H PRN IV Pain 3-5; if unable to take PO ; Start 03/27/17 at 14:00 Morphine Sulfate (Morphine Inj) 4 mg Q3H PRN IV Pain 6-10;if unable to take PO ; Start 03/27/17 at 14:00 Oxycodone HCl (Roxicodone) 5 mg Q4H PRN PO PAIN SCALE 3 TO 5; Start 03/27/17 at 14:00 Naloxone HCl (Narcan Inj) 0.4 mg UNSCH PRN IV SEE LABEL COMMENTS; Start at 14:00 Senna/Docusate Sodium (Karina-Colace) 1 tab BID PO ; Start 03/27/17 at 21:00 Magnesium Hydroxide (Milk Of Magnesia Liq) 30 ml Q12H PRN PO MILD - MODERATE CONSTIPATION; Start 03/27/17 at 14:00 Sennosides (Senokot) 17.2 mg Q12H PRN PO MODERATE - SEVERE CONSTIPATION; Start 03/27/17 at 14:00 Bisacodyl (Dulcolax Supp) 10 mg DAILY PRN RECTAL SEVERE CONSITIPATION; Start at 14:00 Lactulose (Lactulose Liq) 30 ml DAILY PRN PO SEVERE CONSITIPATION; Start at 14:00 Sodium Chloride (NS Flush) 2 ml UNSCH PRN IV FLUSH FLUSH AFTER USING IV ACCESS ; Start 03/27/17 at 14:00 Sodium Chloride (NS Flush) 2 ml BID IV FLUSH ; Start 03/27/17 at 21:00 Metronidazole 100 ml @ 100 mls/hr Q8H IV Last administered on 03/29/17 12:00; Start 03/27/17 at 20:00 Vancomycin HCl (VANCOMYCIN for oral use only) 500 mg QID PO Last administered on 03/29/17 12:05; Start 03/27/17 at 18:00 Lactobacillus Acidophilus (Lactinex) 1 tab TID PO Last administered on 12:05; Start 03/27/17 at 18:00 Aspirin (Aspirin Chew) 81 mg DAILY CHEW Last administered on 03/29/17 08:31; Start 03/28/17 at 09:00 Atovaquone (Mepron Liq) 1,500 mg DAILY PO Last administered on 03/29/17 08:33; Start 03/28/17 at 09:00 Azithromycin (Zithromax) 1,200 mg Q7D PO Last administered on 03/27/17 16:31; Start 03/27/17 at 16:00 Dicyclomine HCl (Bentyl) 20 mg TID PRN PO abdominal cramping; Start 03/27/17 at 15:15 Fluconazole (Diflucan) 100 mg DAILY PO Last administered on 03/29/17 08:33; Start 03/28/17 at 09:00 Abacavir Sulfate (Ziagen) 600 mg DAILY PO Last administered on 03/29/17 08:32; Start 03/28/17 at 09:00 Patient Own Medication 1 ea DAILY PO ; Start 03/28/17 at 09:00; Stop 03/28/17 at 13:45; Status DC Ondansetron HCl (Zofran Odt) 4 mg Q6HR PRN PO NAUSEA OR VOMITING Last administered on 03/28/17 03:28; Start 03/27/17 at 15:15 Pantoprazole Sodium (Protonix) 40 mg Q12HR PO Last administered on 03/29/17 08: 31; Start 03/27/17 at 21:00 Metoprolol Tartrate (Lopressor) 12.5 mg Q12HR PO Last administered on 03/28/17 21:51; Start 03/27/17 at 21:00 Tramadol HCl (Ultram) 50 mg Q6H PRN PO PAIN; Start 03/27/17 at 15:15; Stop at 16:01; Status DC Miscellaneous (Pill Splitter) 1 ea UNSCH PRN OTHER SEE LABEL COMMENTS; Start at 15:30 Lamivudine (Epivir) 300 mg DAILY PO Last administered on 03/29/17 08:32; Start 03/28/17 at 09:00 Zidovudine (Retrovir) 300 mg DAILY PO ; Start 03/28/17 at 09:00; Status Cancel Rifaximin (Xifaxan) 550 mg BID PO Last administered on 03/29/17 08:33; Start at 21:00 Calcium Gluconate 1 gm/Dextrose 110 ml @ 110 mls/hr ONCE ONCE IV Last administered on 03/28/17 09:58; Start 03/28/17 at 06:30; Stop 03/28/17 at 07:29; Status DC Potassium Phosphate 30 mmol/ Sodium Chloride 260 ml @ 43.333 mls/ hr ONCE ONCE IV Last administered on 03/28/17 09:59; Start 03/28/17 at 10:00; Stop at 15:59; Status DC Non-Formulary Medication DARUNAVIR AND COBICIS... DAILY PO Last administered on 03/29/17 08:31; Start 03/29/17 at 09:00 Piperacillin Sod/ Tazobactam Sod 50 ml @ 100 mls/hr Q8H IV Last administered on 03/29/17 08:30; Start 03/28/17 at 17:00 Potassium Phosphate 30 mmol/ Sodium Chloride 260 ml @ 43.333 mls/ hr ONCE ONCE IV Last administered on 03/29/17 11:25; Start 03/29/17 at 10:00; Stop at 15:59 Potassium Phosphate 30 mmol/ Sodium Chloride 260 ml @ 43.333 mls/ hr ONCE ONCE IV ; Start 03/29/17 at 16:00; Stop 03/29/17 at 21:59 Calcium Chloride 1 gm/Sodium Chloride 100 ml @ 100 mls/hr ONCE ONCE IV Last administered on 03/29/17 09:52; Start 03/29/17 at 09:00; Stop 03/29/17 at 09:59; Status DC A/P Problem List: (1) C. 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 ICD Code: B20 - Human immunodeficiency virus [HIV] disease Status: Acute (5) AIDS-associated secretory diarrhea ICD Code: B20 - Human immunodeficiency virus [HIV] disease; A08.4 - Viral intestinal infection, unspecified Status: Acute (6) Colitis ICD Code: K52.9 - Noninfective gastroenteritis and colitis, unspecified Status: Resolved (7) Ascites ICD Code: R18.8 - Other ascites Status: Acute (8) Liver cirrhosis ICD Code: K74.60 - Unspecified cirrhosis of liver Status: Acute (9) Severe protein-calorie malnutrition ICD Code: E43 - Unspecified severe protein-calorie malnutrition Status: Chronic Assessment and Plan C. difficile colitis versus colitis versus diverticulitis versus pancreatitis. She has been treated in the emergency department with hydration and pain control. Stool studies were done ACUTE pancreatitis AM LABS hypocalcemia DUE TO MALNUTRITION AND PCM, AND DIARRHEA HIV and AIDS POOR COMPLIANCE- FULL BLOWN AIDS HYPOKALEMIA WILL REPLACE AND RECHECK BANDEMIA-DEFER TO ID 1. abdominal pain / pancreatitis with HIV and AIDS. 2. Rule out C. difficile toxin colitis. Rule out other protozoan infections. Will get stool studies. 3. Fevers and chills. 4. Abdominal pain. 5. Positive pancreatitis. Will repeat labs in the morning. 6. Abdominal pain. 7. Poor compliance and very lethargic at the moment. 8. Thrombocytopenia. 9. Anemia. 10. History of CVAs. 11. History of hypertension with what sounds like some poor compliance. 12. History of alcohol abuse. 13. Tobacco abuse. THROMBOCYTOPENIA BANDEMIA SEVERE PCM HYPOPHOS WILL REPLACE AM LABS The patient will be admitted. Will continue to follow her throughout the admission. Will continue her on her home medications if she can tolerate. Continue her on the aspirin, Zithromax. Continue on the Bentyl. Continue on the Diflucan. Continue her on her HIV medications. Continue on Zofran. Will make her a full admission. Will consult case management. CLEAR LIQUID DIET Continue on fluids. C. difficile toxin, CBC, comprehensive metabolic panel, TSH, free T4, hemoglobin A1c, magnesium and phosphorus. Continue on Flagyl IV as well as the Vancomycin orally if she can take it. Will get a.m. labs. Will continue to follow her amylase and lipase. Will monitor her and make sure she is on some Protonix for her stomach. Will continue occupational therapy and physical therapy. Get case management involved. She is a full code We will consult GI as well as infectious disease regarding the abdominal pain and the C. Difficile. She will continue on DVT prophylaxis with SCDs and ANGI-hose. Will monitor her for any other issues that may arise. SCDs and continue on DVT prophylaxis and GI prophylaxis. Will continue her on Protonix and continue her on Lovenox. Will follow her for any other issues that may arise. ADD ZOSYN FOR UTI PALLIATIVE CARE CONSULT REPLACE POTASSIUM AND PHOS RECHECK IN AM POOR PROGNOSIS IS FULL CODE Yosef Antoine DO Mar 29, 2017 15:28
[2017-03-30] VITALS (7 sets, daily range): BP systolic 95–126; BP diastolic 56–74; PULSE 71–80; RESP 17–20; TEMP 96–97.8; O2SAT 92–100
[2017-03-30] MEDS: PIPERACIL-TAZO 3.375 GM PREMIX 50 ML IV SCH ×3 (00:50→17:00)
[2017-03-30] MEDS: metroNIDAZOLE 500 MG INJ 100 ML IV SCH ×3 (04:00→21:46)
[2017-03-30] MEDS: D5-1/2 NS + KCL 20 MEQ INJ 1,000 ML IV SCH (05:50)
[2017-03-30 06:13] LABS: HEMATOCRIT 24.6 % (35.0-46.0); MEAN CORPUSCULAR HEMOGLOBIN 32.1 PG (27.0-34.0); MEAN CORPUSCULAR HGB CONC 34.1 % (32.0-36.0); PLATELET COUNT 101 TH/MM3 (150-450); RED BLOOD COUNT 2.62 MIL/MM3 (4.00-5.30); RED CELL DISTRIBUTION WIDTH 17.2 % (11.6-17.2); WHITE BLOOD COUNT 4.8 TH/MM3 (4.0-11.0)
[2017-03-30 06:15] LABS: HEMO FLAGS AUTO DIFF
[2017-03-30 08:42] LABS: BANDS 3 % (0-6); BASOPHILS 1 % (0-2); EOSINOPHILS 17 % (0-4); MYELOCYTES 1 % (0-0); NEUTROPHIL # MANUAL DIFF 2.6 TH/MM3 (1.8-7.7); POLYS (SEG NEUTROPHILS) 51 % (16-70); WBC DIFF SAMPLE 100
[2017-03-30 08:45] LABS: OVALOCYTES 1+ (NORMAL); PLATELET ESTIMATE SMEAR LOW (NORMAL); PLATELET MORPHOLOGY NORMAL (NORMAL); SCAN/DIFF FINAL DIFF MANUAL
[2017-03-30] MEDS: ASPIRIN 81 MG CHEW TAB CHEW SCH (09:03)
[2017-03-30] MEDS: SODIUM CHLORIDE 0.9% FLUSH 10 ML FLUSH IV FLUSH SCH ×2 (09:04→21:00)
[2017-03-30] MEDS: FLUCONAZOLE 100 MG TAB PO SCH (09:05)
[2017-03-30] MEDS: COBICISTAT PO SCH (09:05)
[2017-03-30] MEDS: DARUNAVIR PO SCH (09:05)
[2017-03-30] MEDS: DOLUTEGRAVIR SODIUM 50 MG TAB PO SCH (09:06)
[2017-03-30] MEDS: LACTOBACILLUS ACIDOPHILUS TAB PO SCH ×3 (09:07→18:00)
[2017-03-30] MEDS: ABACAVIR SULFATE 300 MG TAB PO SCH (09:07)
[2017-03-30] MEDS: DOCUSATE SODIUM 50 MG/SENNA 8.6 MG TAB PO SCH ×3 (09:11→21:47)
[2017-03-30] MEDS: METOPROLOL TARTRATE 25 MG TAB PO SCH ×2 (09:11→21:00)
[2017-03-30] MEDS: ATOVAQUONE SUSP 750 MG/5 ML UDC PO SCH (09:11)
[2017-03-30] MEDS: VANCOMYCIN 500 MG VIAL (FOR ORAL USE ONLY) PO SCH ×4 (09:12→21:46)
[2017-03-30] MEDS: PANTOPRAZOLE SOD 40 MG DELAYED RELEASE TAB PO SCH ×2 (09:12→21:47)
[2017-03-30] MEDS: RIFAXIMIN 550 MG TAB PO SCH ×2 (09:12→21:47)
[2017-03-30 10:17] LABS: BICARBONATE 19.9 MEQ/L (21.0-32.0); MAGNESIUM 1.7 MG/DL (1.5-2.5); TOTAL BILIRUBIN ADULT 0.4 MG/DL (0.2-1.0)
[2017-03-30 10:25] LABS: CALCIUM-PROTEIN CORRECTED 7.1 MG/DL (8.5-10.1); POTASSIUM 4.3 MEQ/L (3.5-5.1)
--- NOTE | 2017-03-30 13:43 | HHI.PR ---
Subjective Remarks This patient came in through the emergency department and was seen by the emergency room physician and was recommended for admission. The patient is a 52-year-old -[place] female with known history of HIV and AIDS who has been having diarrhea for about a month. She was here about two days and had diffuse abdominal cramping associated with nausea and vomiting and abdominal pain. The patient is not a very good historian and is not able to give much information. Everything was obtained from chart review. 9-4 SUSPECT PATIENT HAS FULL BLOWN AIDS AND NOT JUST HIV APPEARS TO HAVE NONCOMPLIANCE STILL HAVING DIARRHEA MORE AWAKE AND ALERT TODAY ANSWERING SOME QUESTIONS DW RN AND PT AND FAMILY WILL GET PALLIATIVE CARE CONSULT 9-5 MORE AWAKE AND ALERT TODAY STILL HAVING DIARRHEA BUT LESS ANSWERING MORE QUESTIONS SEEN BY GI, ID AND PALLIATIVE CARE DW RN AND PT 9-6 COMPLAINS OF DIARRHEA STILL MORE AWAKE AND ALERT HYPOKALEMIA REPLACE BY PROTOCOLS Objective Vitals Vital Signs Date Time Temp Pulse Resp B/P (MAP) Pulse Ox O2 Delivery O2 Flow Rate FiO2 03/30/17 08:00 96.9 80 20 103/69 (80) 95 03/30/17 04:00 97.1 75 17 114/60 (78) 100 03/30/17 00:00 96.0 75 17 116/58 (77) 100 03/29/17 22:00 72 03/29/17 20:00 96.0 97 17 112/68 (83) 95 03/29/17 16:00 97.7 74 18 115/64 (81) 100 03/29/17 13:53 97 I/O 03/29/17 03/29/17 03/29/17 03/30/17 03/30/17 03/30/17 07:00 15:00 23:00 07:00 15:00 23:00 Intake Total 838 ml 480 ml 3079 ml 813 ml 120 ml Output Total 550 ml 1800 ml 200 ml Balance 288 ml 480 ml 1279 ml 613 ml 120 ml Intake Oral 0 ml 480 ml 1200 ml 240 ml 120 ml IV Total 838 ml 1879 ml 573 ml Output Urine Total 550 ml 1800 ml 200 ml # Voids 3 # Bowel Movements 2 Result Diagram: 03/30/17 0544 03/30/17 0901 Other Results Laboratory Tests Test 03/27/17 23:28 03/28/17 04:08 03/29/17 06:15 03/30/17 05:44 Ammonia 31 MCMOL/L 32 MCMOL/L White Blood Count 7.9 TH/MM3 4.6 TH/MM3 4.8 TH/MM3 Red Blood Count 2.64 MIL/MM3 2.40 MIL/MM3 2.62 MIL/MM3 Hemoglobin 8.4 GM/DL 7.8 GM/DL 8.4 GM/DL Hematocrit 25.4 % 23.0 % 24.6 % Mean Corpuscular Volume 96.3 FL 96.1 FL 94.0 FL Mean Corpuscular Hemoglobin 31.9 PG 32.6 PG 32.1 PG Mean Corpuscular Hemoglobin Concent 33.1 % 33.9 % 34.1 % Red Cell Distribution Width 16.5 % 17.3 % 17.2 % Platelet Count 109 TH/MM3 113 TH/MM3 101 TH/MM3 Mean Platelet Volume 10.6 FL 9.9 FL 10.2 FL CBC Comment AUTO DIFF DIFF FINAL AUTO DIFF Differential Total Cells Counted 100 100 Neutrophils % (Manual) 64 % 51 % Band Neutrophils % 32 % 3 % Lymphocytes % 2 % 14 % Monocytes % 1 % 13 % Neutrophils # (Manual) 7.6 TH/MM3 2.6 TH/MM3 Differential Comment FINAL DIFF MANUAL FINAL DIFF MANUAL Blastocytes 1 % Platelet Estimate LOW LOW Platelet Morphology Comment NORMAL NORMAL Ovalocytes 1+ 1+ Blood Urea Nitrogen 11 MG/DL 9 MG/DL Creatinine 0.96 MG/DL 1.01 MG/DL Random Glucose 87 MG/DL 132 MG/DL Total Protein 7.6 GM/DL 6.8 GM/DL Albumin 1.3 GM/DL 1.2 GM/DL Calcium Level 7.4 MG/DL 6.9 MG/DL Phosphorus Level 2.2 MG/DL 1.6 MG/DL Magnesium Level 2.0 MG/DL 1.9 MG/DL Alkaline Phosphatase 91 U/L 77 U/L Aspartate Amino Transf (AST/SGOT) 32 U/L 23 U/L Alanine Aminotransferase (ALT/SGPT) 13 U/L 11 U/L Total Bilirubin 0.5 MG/DL 0.3 MG/DL Sodium Level 141 MEQ/L 141 MEQ/L Potassium Level 3.3 MEQ/L 3.0 MEQ/L Chloride Level 115 MEQ/L 115 MEQ/L Carbon Dioxide Level 18.0 MEQ/L 20.3 MEQ/L Anion Gap 8 MEQ/L 6 MEQ/L Estimat Glomerular Filtration Rate 74 ML/MIN 69 ML/MIN Hemoglobin A1c 5.1 % Protein Corrected Calcium 7.2 MG/DL 7.1 MG/DL Lipase 109 U/L 261 U/L Free Thyroxine 1.03 NG/DL Thyroid Stimulating Hormone 3rd Gen 2.450 uIU/ML Neutrophils (%) (Auto) 80.9 % Lymphocytes (%) (Auto) 7.8 % Monocytes (%) (Auto) 5.5 % Eosinophils (%) (Auto) 5.3 % Basophils (%) (Auto) 0.5 % Neutrophils # (Auto) 3.7 TH/MM3 Lymphocytes # (Auto) 0.4 TH/MM3 Monocytes # (Auto) 0.3 TH/MM3 Eosinophils # (Auto) 0.2 TH/MM3 Basophils # (Auto) 0.0 TH/MM3 Amylase Level 96 U/L Eosinophils % 17 % Basophils % 1 % Myelocytes 1 % Hematology Comments Test 03/30/17 09:01 Blood Urea Nitrogen 5 MG/DL Creatinine 0.90 MG/DL Random Glucose 79 MG/DL Total Protein 7.0 GM/DL Albumin 1.3 GM/DL Calcium Level 7.0 MG/DL Phosphorus Level 3.0 MG/DL Magnesium Level 1.7 MG/DL Alkaline Phosphatase 90 U/L Aspartate Amino Transf (AST/SGOT) 28 U/L Alanine Aminotransferase (ALT/SGPT) 12 U/L Total Bilirubin 0.4 MG/DL Sodium Level 139 MEQ/L Potassium Level 4.3 MEQ/L Chloride Level 114 MEQ/L Carbon Dioxide Level 19.9 MEQ/L Anion Gap 5 MEQ/L Estimat Glomerular Filtration Rate 79 ML/MIN Protein Corrected Calcium 7.1 MG/DL Imaging Last Impressions Abdomen/Pelvis CT 03/27/17 1040 Signed Impressions: Service Date/Time: Monday, March 27, 2017 11:43 - CONCLUSION: 1. Cirrhosis and portal hypertension with ascites and varices identified. Joe Palma MD Chest X-Ray 03/27/17 0000 Signed Impressions: Service Date/Time: Monday, March 27, 2017 15:53 - CONCLUSION: Stable bibasilar patchy opacities. Rad Cueto MD Objective Remarks GENERAL: AWAKE AND ALERT TALKATIVE AND COOPERATIVE- VERY FRAIL APPEARING SKIN: Warm and dry. HEAD: Atraumatic. Normocephalic. EYES: Pupils equal and round. No scleral icterus. No injection or drainage. EOMI ENT: No nasal bleeding or discharge. Mucous membranes pink and moist.TONGUE IS MIDLINE NECK: Trachea midline. No JVD. SUPPLE CARDIOVASCULAR: Regular rate and rhythm. S1, S2 NO S3 OR S4 NO HEAVE OR THRILL OR RUB RESPIRATORY: No accessory muscle use. Clear to auscultation. Breath sounds equal bilaterally. GASTROINTESTINAL: Abdomen soft, non-tender, nondistended. Hepatic and splenic margins not palpable. CACHECTIC MUSCULOSKELETAL: Extremities without clubbing, cyanosis, or edema. No obvious deformities. NEUROLOGICAL: Awake and alert. No obvious cranial nerve deficits. Motor grossly within normal limits. 4 out of 5 muscle strength in the arms and legs. Normal speech. PSYCHIATRIC: More mood and affect; insight and judgment improved. Medications and IVs Current Medications Metronidazole 100 ml @ 100 mls/hr ONCE ONCE IV Last administered on 03/27/17 11:50; Start 03/27/17 at 10:30; Stop 03/27/17 at 11:29; Status DC Sodium Chloride 1,000 ml @ 1,000 mls/hr Q1H IV Last administered on 03/27/17 11:50; Start 03/27/17 at 10:30; Stop 03/27/17 at 11:29; Status DC Calcium Gluconate 2 gm/Sodium Chloride 120 ml @ 120 mls/hr ONCE ONCE IV Last administered on 03/27/17 13:55; Start 03/27/17 at 12:30; Stop 03/27/17 at 13:29; Status DC Hydromorphone HCl (Dilaudid Pf Inj) 0.5 mg ONCE ONCE IV PUSH Last administered on 03/27/17 13:55; Start 03/27/17 at 13:30; Stop 03/27/17 at 13:31; Status DC Potassium Chloride/Dextrose/ Sod Cl 1,000 ml @ 100 mls/hr Q10H IV Last administered on 03/30/17 05:50; Start 03/27/17 at 13:57 Sodium Chloride (NS Flush) 2 ml UNSCH PRN IV FLUSH FLUSH AFTER USING IV ACCESS ; Start 03/27/17 at 14:00; Stop 03/27/17 at 14:11; Status DC Sodium Chloride (NS Flush) 2 ml BID IV FLUSH ; Start 03/27/17 at 21:00; Stop 03/27 at 21:00; Status DC Ondansetron HCl (Zofran Inj) 4 mg Q6H PRN IVP NAUSEA OR VOMITING; Start at 14:00; Stop 03/27/17 at 16:01; Status DC Prochlorperazine (Compazine Supp) 25 mg Q12H PRN RECTAL NAUSEA OR VOMITING; Start 03/27/17 at 14:00 Zolpidem Tartrate (Ambien) 5 mg HS PRN PO INSOMNIA; Start 03/27/17 at 14:00 Enoxaparin Sodium (Lovenox Inj) 40 mg Q24H SQ Last administered on 03/29/17 15: 27; Start 03/27/17 at 15:00 Acetaminophen (Tylenol) 650 mg Q6H PRN PO PAIN SCALE 1 TO 2; Start 03/27/17 at 14:00 Oxycodone HCl (Roxicodone) 10 mg Q4H PRN PO PAIN SCALE 6 TO 10 Last administered on 03/30/17 09:15; Start 03/27/17 at 14:00 Morphine Sulfate (Morphine Inj) 2 mg Q3H PRN IV Pain 3-5; if unable to take PO ; Start 03/27/17 at 14:00 Morphine Sulfate (Morphine Inj) 4 mg Q3H PRN IV Pain 6-10;if unable to take PO ; Start 03/27/17 at 14:00 Oxycodone HCl (Roxicodone) 5 mg Q4H PRN PO PAIN SCALE 3 TO 5; Start 03/27/17 at 14:00 Naloxone HCl (Narcan Inj) 0.4 mg UNSCH PRN IV SEE LABEL COMMENTS; Start at 14:00 Senna/Docusate Sodium (Karina-Colace) 1 tab BID PO Last administered on 03/30/17 09:11; Start 03/27/17 at 21:00 Magnesium Hydroxide (Milk Of Magnesia Liq) 30 ml Q12H PRN PO MILD - MODERATE CONSTIPATION; Start 03/27/17 at 14:00 Sennosides (Senokot) 17.2 mg Q12H PRN PO MODERATE - SEVERE CONSTIPATION; Start 03/27/17 at 14:00 Bisacodyl (Dulcolax Supp) 10 mg DAILY PRN RECTAL SEVERE CONSITIPATION; Start at 14:00 Lactulose (Lactulose Liq) 30 ml DAILY PRN PO SEVERE CONSITIPATION; Start at 14:00 Sodium Chloride (NS Flush) 2 ml UNSCH PRN IV FLUSH FLUSH AFTER USING IV ACCESS ; Start 03/27/17 at 14:00 Sodium Chloride (NS Flush) 2 ml BID IV FLUSH Last administered on 03/30/17 09: 04; Start 03/27/17 at 21:00 Metronidazole 100 ml @ 100 mls/hr Q8H IV Last administered on 03/30/17 04:00; Start 03/27/17 at 20:00 Vancomycin HCl (VANCOMYCIN for oral use only) 500 mg QID PO Last administered on 03/30/17 09:12; Start 03/27/17 at 18:00 Lactobacillus Acidophilus (Lactinex) 1 tab TID PO Last administered on 09:07; Start 03/27/17 at 18:00 Aspirin (Aspirin Chew) 81 mg DAILY CHEW Last administered on 03/30/17 09:03; Start 03/28/17 at 09:00 Atovaquone (Mepron Liq) 1,500 mg DAILY PO Last administered on 03/30/17 09:11; Start 03/28/17 at 09:00 Azithromycin (Zithromax) 1,200 mg Q7D PO Last administered on 03/27/17 16:31; Start 03/27/17 at 16:00 Dicyclomine HCl (Bentyl) 20 mg TID PRN PO abdominal cramping; Start 03/27/17 at 15:15 Fluconazole (Diflucan) 100 mg DAILY PO Last administered on 03/30/17 09:05; Start 03/28/17 at 09:00 Abacavir Sulfate (Ziagen) 600 mg DAILY PO Last administered on 03/30/17 09:07; Start 03/28/17 at 09:00 Patient Own Medication 1 ea DAILY PO ; Start 03/28/17 at 09:00; Stop 03/28/17 at 13:45; Status DC Ondansetron HCl (Zofran Odt) 4 mg Q6HR PRN PO NAUSEA OR VOMITING Last administered on 03/28/17 03:28; Start 03/27/17 at 15:15 Pantoprazole Sodium (Protonix) 40 mg Q12HR PO Last administered on 03/30/17 09: 12; Start 03/27/17 at 21:00 Metoprolol Tartrate (Lopressor) 12.5 mg Q12HR PO Last administered on 03/30/17 09:11; Start 03/27/17 at 21:00 Tramadol HCl (Ultram) 50 mg Q6H PRN PO PAIN; Start 03/27/17 at 15:15; Stop at 16:01; Status DC Miscellaneous (Pill Splitter) 1 ea UNSCH PRN OTHER SEE LABEL COMMENTS; Start at 15:30 Lamivudine (Epivir) 300 mg DAILY PO Last administered on 03/30/17 09:06; Start 03/28/17 at 09:00 Zidovudine (Retrovir) 300 mg DAILY PO ; Start 03/28/17 at 09:00; Status Cancel Rifaximin (Xifaxan) 550 mg BID PO Last administered on 03/30/17 09:12; Start at 21:00 Calcium Gluconate 1 gm/Dextrose 110 ml @ 110 mls/hr ONCE ONCE IV Last administered on 03/28/17 09:58; Start 03/28/17 at 06:30; Stop 03/28/17 at 07:29; Status DC Potassium Phosphate 30 mmol/ Sodium Chloride 260 ml @ 43.333 mls/ hr ONCE ONCE IV Last administered on 03/28/17 09:59; Start 03/28/17 at 10:00; Stop at 15:59; Status DC Non-Formulary Medication DARUNAVIR AND COBICIS... DAILY PO Last administered on 03/30/17 09:05; Start 03/29/17 at 09:00 Piperacillin Sod/ Tazobactam Sod 50 ml @ 100 mls/hr Q8H IV Last administered on 03/30/17 09:00; Start 03/28/17 at 17:00 Potassium Phosphate 30 mmol/ Sodium Chloride 260 ml @ 43.333 mls/ hr ONCE ONCE IV Last administered on 03/29/17 11:25; Start 03/29/17 at 10:00; Stop at 15:59; Status DC Potassium Phosphate 30 mmol/ Sodium Chloride 260 ml @ 43.333 mls/ hr ONCE ONCE IV Last administered on 03/29/17 17:03; Start 03/29/17 at 16:00; Stop at 21:59; Status DC Calcium Chloride 1 gm/Sodium Chloride 100 ml @ 100 mls/hr ONCE ONCE IV Last administered on 03/29/17 09:52; Start 03/29/17 at 09:00; Stop 03/29/17 at 09:59; Status DC Urinary Catheter: No A/P Problem List: (1) C. 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 ICD Code: B20 - Human immunodeficiency virus [HIV] disease Status: Acute (5) AIDS-associated secretory diarrhea ICD Code: B20 - Human immunodeficiency virus [HIV] disease; A08.4 - Viral intestinal infection, unspecified Status: Acute (6) Colitis ICD Code: K52.9 - Noninfective gastroenteritis and colitis, unspecified Status: Resolved (7) Ascites ICD Code: R18.8 - Other ascites Status: Acute (8) Liver cirrhosis ICD Code: K74.60 - Unspecified cirrhosis of liver Status: Acute (9) Severe protein-calorie malnutrition ICD Code: E43 - Unspecified severe protein-calorie malnutrition Status: Chronic Assessment and Plan C. difficile colitis versus colitis versus diverticulitis versus pancreatitis. She has been treated in the emergency department with hydration and pain control. Stool studies were done ACUTE pancreatitis AM LABS hypocalcemia DUE TO MALNUTRITION AND PCM, AND DIARRHEA- WILL REPLACE BY PROTOCOL HIV and AIDS POOR COMPLIANCE- FULL BLOWN AIDS HYPOKALEMIA WILL REPLACE AND RECHECK BANDEMIA-DEFER TO ID 1. abdominal pain / pancreatitis with HIV and AIDS. 2. Rule out C. difficile toxin colitis. Rule out other protozoan infections. Will get stool studies. 3. Fevers and chills. 4. Abdominal pain. 5. Positive pancreatitis. Will repeat labs in the morning. 6. Abdominal pain. 7. Poor compliance and very lethargic at the moment. 8. Thrombocytopenia. 9. Anemia. 10. History of CVAs. 11. History of hypertension with what sounds like some poor compliance. 12. History of alcohol abuse. 13. Tobacco abuse. THROMBOCYTOPENIA BANDEMIA SEVERE PCM HYPOPHOS WILL REPLACE AM LABS The patient will be admitted. Will continue to follow her throughout the admission. Will continue her on her home medications if she can tolerate. Continue her on the aspirin, Zithromax. Continue on the Bentyl. Continue on the Diflucan. Continue her on her HIV medications. Continue on Zofran. Will make her a full admission. Will consult case management. CLEAR LIQUID DIET Continue on fluids. C. difficile toxin, CBC, comprehensive metabolic panel, TSH, free T4, hemoglobin A1c, magnesium and phosphorus. Continue on Flagyl IV as well as the Vancomycin orally if she can take it. Will get a.m. labs. Will continue to follow her amylase and lipase. Will monitor her and make sure she is on some Protonix for her stomach. Will continue occupational therapy and physical therapy. Get case management involved. She is a full code We will consult GI as well as infectious disease regarding the abdominal pain and the C. Difficile. She will continue on DVT prophylaxis with SCDs and ANGI-hose. Will monitor her for any other issues that may arise. SCDs and continue on DVT prophylaxis and GI prophylaxis. Will continue her on Protonix and continue her on Lovenox. Will follow her for any other issues that may arise. ADD ZOSYN FOR UTI PALLIATIVE CARE CONSULT REPLACE POTASSIUM AND PHOS RECHECK IN AM POOR PROGNOSIS IS FULL CODE Yosef Antoine DO Mar 30, 2017 13:43
[2017-03-30] MEDS ORDERED: CALCIUM CHLORIDE INJ 1 GM in SODIUM CHLORIDE 0.9% INJ 90 ML IV ONE (15:00)
[2017-03-30] MEDS: ENOXAPARIN SODIUM 40 MG/0.4 ML SYRINGE SQ SCH (15:46)
--- NOTE | 2017-03-30 16:18 | HHI.GIFU ---
Subjective Remarks Resting in bed. Feeling better today. Tolerating diet. Still having diarrhea - 4 loose stools today. No GI bleeding. Objective Vitals I&O Vital Signs Date Time Temp Pulse Resp B/P (MAP) Pulse Ox O2 Delivery O2 Flow Rate FiO2 03/30/17 12:00 96.9 78 19 103/63 (76) 96 03/30/17 08:00 96.9 80 20 103/69 (80) 95 03/30/17 04:00 97.1 75 17 114/60 (78) 100 03/30/17 00:00 96.0 75 17 116/58 (77) 100 03/29/17 22:00 72 03/29/17 20:00 96.0 97 17 112/68 (83) 95 I/O 03/29/17 03/29/17 03/29/17 03/30/17 03/30/17 03/30/17 07:00 15:00 23:00 07:00 15:00 23:00 Intake Total 838 ml 480 ml 3079 ml 813 ml 120 ml Output Total 550 ml 1800 ml 200 ml Balance 288 ml 480 ml 1279 ml 613 ml 120 ml Intake Oral 0 ml 480 ml 1200 ml 240 ml 120 ml IV Total 838 ml 1879 ml 573 ml Output Urine Total 550 ml 1800 ml 200 ml # Voids 3 # Bowel Movements 2 Laboratory Laboratory Tests Test 03/30/17 05:44 03/30/17 09:01 White Blood Count 4.8 Red Blood Count 2.62 Hemoglobin 8.4 Hematocrit 24.6 Mean Corpuscular Volume 94.0 Mean Corpuscular Hemoglobin 32.1 Mean Corpuscular Hemoglobin Concent 34.1 Red Cell Distribution Width 17.2 Platelet Count 101 Mean Platelet Volume 10.2 CBC Comment AUTO DIFF Differential Total Cells Counted 100 Neutrophils % (Manual) 51 Band Neutrophils % 3 Lymphocytes % 14 Monocytes % 13 Eosinophils % 17 Basophils % 1 Neutrophils # (Manual) 2.6 Myelocytes 1 Differential Comment FINAL DIFF MANUAL Platelet Estimate LOW Platelet Morphology Comment NORMAL Ovalocytes 1+ Hematology Comments Blood Urea Nitrogen 5 Creatinine 0.90 Random Glucose 79 Total Protein 7.0 Albumin 1.3 Calcium Level 7.0 Phosphorus Level 3.0 Magnesium Level 1.7 Alkaline Phosphatase 90 Aspartate Amino Transf (AST/SGOT) 28 Alanine Aminotransferase (ALT/SGPT) 12 Total Bilirubin 0.4 Sodium Level 139 Potassium Level 4.3 Chloride Level 114 Carbon Dioxide Level 19.9 Anion Gap 5 Estimat Glomerular Filtration Rate 79 Protein Corrected Calcium 7.1 Date/Time Source Procedure Growth Status 03/27/17 16:20 Blood Peripheral Aerobic Blood Culture - Preliminary NO GROWTH IN 3 DAYS Resulted 03/27/17 16:20 Blood Peripheral Anaerobic Blood Culture - Preliminary NO GROWTH IN 3 DAYS Resulted 03/27/17 13:20 Stool Stool Acid Fast Stain - Final NO ACID FAST BACILLI SEEN Resulted 03/27/17 13:20 Stool Stool Mycobacterial Culture Pending Resulted 03/27/17 12:50 Urine Clean Catch Urine Culture - Final Staphylococcus Aureus Complete Imaging Last Impressions Abdomen/Pelvis CT 03/27/17 1040 Signed Impressions: Service Date/Time: Monday, March 27, 2017 11:43 - CONCLUSION: 1. Cirrhosis and portal hypertension with ascites and varices identified. Joe Palma MD Chest X-Ray 03/27/17 0000 Signed Impressions: Service Date/Time: Monday, March 27, 2017 15:53 - CONCLUSION: Stable bibasilar patchy opacities. Rad Cueto MD Physical Exam HEENT: Normocephalic; atraumatic; no jaundice. NECK: Neck is supple. CHEST: CTA CARDIAC: RRR with no murmur gallop or rubs. ABDOMEN: Soft, mild distention, mild diffuse tenderness; bowel sounds are present x 4. EXTREMITIES: No clubbing, cyanosis, or edema. SKIN: Normal; no rash; no jaundice. 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 Epid 027 (+). CT Abdomen/Pelvis 03/27/17--CONCLUSION: 1. Cirrhosis and portal hypertension with ascites and varices identified. Flagyl, oral vanco. 4 loose stools again today. WBC 4.8. - Liver cirrhosis with evidence of portal hypertension, ascites, and varices on CT imaging. LFTs stable. T. Bili 1.7, AST 28, ALT 12, Alk Phosph 90 - Anemia. EGD/Colonoscopy (01/05/16)---> normal duodenum, gastritis in the antrum, stricture/Schatzki's ring distal esophagus status post dilatation 14 savory guidewire, hiatal hernia, 2 diminutive polyps in cecum 5 mm and 6 mm each, cold biopsy with complete removal, 2 polyps at hepatic flexure 6 mm each cold biopsy with complete removal, no normal colon otherwise random biopsies of the ascending and descending colon, medium internal hemorrhoids, decreased sphincter tone. Pathology with small intestinal mucosa without significant histopathologic abnormality, severe chronic gastritis, negative for helicobacter pylori, hepatic flexure adenomatous polyp, ascending colonic mucosa without significant histopathologic abnormality, adenomatous polyp cecum, descending colon with colonic mucosa without significant histopathologic abnormality. 8.4/ 24.6. No active bleeding. - MADELINE, Hypokalemia per attending. - HIV/AIDS, per attending. PLAN: - JARAD - Continue Vancomycin - Continue Flagyl - Monitor labs - Monitor stool output - Supportive care - Further recommendations to follow based on results of above. - Pt seen and examined by Dr. Singletary and myself and this note is written on his behalf Sil Ash Mar 30, 2017 16:18
[2017-03-30] MEDS: CALCIUM CARBONATE 1.25 GM (CA 500 MG) TAB PO SCH (21:47)
[2017-03-30 23:54] LABS: CD 19 PERCENT 36 % (6-29); CD3 ABSOLUTE 178 (840-3060); CD4/CD8 RATIO 0.1 (0.86-5.00); CD8 ABSOLUTE 159 (180-1170); LYMPHOCYTES, ABSOLUTE 339 (850-3900)
[2017-03-31] MEDS: PIPERACIL-TAZO 3.375 GM PREMIX 50 ML IV SCH ×3 (01:21→16:59)
[2017-03-31 04:00] VITALS: BP 116/58; PULSE 79; RESP 18; TEMP 97.9; O2SAT 96
[2017-03-31] MEDS: metroNIDAZOLE 500 MG INJ 100 ML IV SCH ×3 (04:36→20:28)
[2017-03-31 07:19] LABS: AUTOMATED NEUTROPHIL # 2.8 TH/MM3 (1.8-7.7); BASOPHIL % 0.6 % (0.0-2.0); EOSINOPHIL # 0.2 TH/MM3 (0-0.4); EOSINOPHIL % 4.3 % (0.0-4.0); HEMATOCRIT 28.4 % (35.0-46.0); LYMPH % 11.4 % (9.0-44.0); LYMPHOCYTE # 0.4 TH/MM3 (1.0-4.8); MEAN CELL VOLUME 96.1 FL (80.0-100.0); MEAN CORPUSCULAR HEMOGLOBIN 31.3 PG (27.0-34.0); MEAN CORPUSCULAR HGB CONC 32.6 % (32.0-36.0); MONO % 6.7 % (0.0-8.0); PLATELET COUNT 145 TH/MM3 (150-450); RED BLOOD COUNT 2.96 MIL/MM3 (4.00-5.30); RED CELL DISTRIBUTION WIDTH 18.3 % (11.6-17.2); WHITE BLOOD COUNT 3.7 TH/MM3 (4.0-11.0)
[2017-03-31 07:24] LABS: HEMO FLAGS AUTO DIFF
[2017-03-31 07:42] LABS: ALKALINE PHOSPHATASE 92 U/L (45-117); ALT (GPT) 12 U/L (10-53); ANION GAP 4 MEQ/L (5-15); AST (GOT) 28 U/L (15-37); BICARBONATE 19.8 MEQ/L (21.0-32.0); BLOOD UREA NITROGEN 3 MG/DL (7-18); CHLORIDE 116 MEQ/L (98-107); GLOMERULAR FILTRATION RATE 84 ML/MIN (>89); MAGNESIUM 1.6 MG/DL (1.5-2.5); POTASSIUM 4.6 MEQ/L (3.5-5.1); SODIUM (NA) 140 MEQ/L (136-145); TOTAL BILIRUBIN ADULT 0.5 MG/DL (0.2-1.0)
[2017-03-31 08:00] VITALS: BP 109/63; PULSE 81; RESP 16; TEMP 97.8; O2SAT 99
[2017-03-31] MEDS: SODIUM CHLORIDE 0.9% FLUSH 10 ML FLUSH IV FLUSH SCH ×2 (09:00→20:28)
[2017-03-31] MEDS: DARUNAVIR PO SCH (09:00)
[2017-03-31] MEDS: COBICISTAT PO SCH (09:00)
[2017-03-31] MEDS: DOLUTEGRAVIR SODIUM 50 MG TAB PO SCH (09:30)
[2017-03-31] MEDS: CALCIUM CARBONATE 1.25 GM (CA 500 MG) TAB PO SCH ×2 (09:31→20:28)
[2017-03-31] MEDS: DOCUSATE SODIUM 50 MG/SENNA 8.6 MG TAB PO SCH ×2 (09:31→20:28)
[2017-03-31] MEDS: FLUCONAZOLE 100 MG TAB PO SCH (09:31)
[2017-03-31] MEDS: ASPIRIN 81 MG CHEW TAB CHEW SCH (09:32)
[2017-03-31] MEDS: PANTOPRAZOLE SOD 40 MG DELAYED RELEASE TAB PO SCH ×2 (09:32→20:27)
[2017-03-31] MEDS: ABACAVIR SULFATE 300 MG TAB PO SCH (09:32)
[2017-03-31] MEDS: METOPROLOL TARTRATE 25 MG TAB PO SCH ×2 (09:33→20:28)
[2017-03-31] MEDS: LACTOBACILLUS ACIDOPHILUS TAB PO SCH ×3 (09:33→16:59)
[2017-03-31] MEDS: RIFAXIMIN 550 MG TAB PO SCH ×2 (09:33→20:27)
[2017-03-31] MEDS: VANCOMYCIN 500 MG VIAL (FOR ORAL USE ONLY) PO SCH ×4 (09:34→20:28)
[2017-03-31] MEDS: ATOVAQUONE SUSP 750 MG/5 ML UDC PO SCH (09:34)
[2017-03-31] MEDS: D5-1/2 NS + KCL 20 MEQ INJ 1,000 ML IV SCH ×2 (09:35→17:00)
[2017-03-31 10:47] LABS: CRENATED RBCS 1+ (NORMAL); OVALOCYTES 1+ (NORMAL)
[2017-03-31 10:48] LABS: SCAN/DIFF AUTO DIFF CONFIRMED
--- NOTE | 2017-03-31 11:01 | HHI.PR ---
Subjective Remarks This patient came in through the emergency department and was seen by the emergency room physician and was recommended for admission. The patient is a 52-year-old -[place] female with known history of HIV and AIDS who has been having diarrhea for about a month. She was here about two days and had diffuse abdominal cramping associated with nausea and vomiting and abdominal pain. The patient is not a very good historian and is not able to give much information. Everything was obtained from chart review. 9-4 SUSPECT PATIENT HAS FULL BLOWN AIDS AND NOT JUST HIV APPEARS TO HAVE NONCOMPLIANCE STILL HAVING DIARRHEA MORE AWAKE AND ALERT TODAY ANSWERING SOME QUESTIONS DW RN AND PT AND FAMILY WILL GET PALLIATIVE CARE CONSULT 9-5 MORE AWAKE AND ALERT TODAY STILL HAVING DIARRHEA BUT LESS ANSWERING MORE QUESTIONS SEEN BY GI, ID AND PALLIATIVE CARE DW RN AND PT 9-6 COMPLAINS OF DIARRHEA STILL MORE AWAKE AND ALERT HYPOKALEMIA REPLACE BY PROTOCOLS 9-7 patient is still having diarrhea More awake and alert Replace by protocols Needs physical therapy and occupational therapy Objective Vitals Vital Signs Date Time Temp Pulse Resp B/P (MAP) Pulse Ox O2 Delivery O2 Flow Rate FiO2 03/31/17 04:00 97.9 79 18 116/58 (77) 96 03/30/17 23:54 96.7 75 17 106/60 (75) 92 03/30/17 20:00 96.4 71 18 126/74 (91) 97 03/30/17 16:00 97.8 80 19 95/56 (69) 100 03/30/17 12:00 96.9 78 19 103/63 (76) 96 I/O 03/30/17 03/30/17 03/30/17 03/31/17 03/31/17 03/31/17 07:00 15:00 23:00 07:00 15:00 23:00 Intake Total 813 ml 120 ml 1200 ml 360 ml Output Total 200 ml 1100 ml Balance 613 ml 120 ml 100 ml 360 ml Intake Oral 240 ml 120 ml 1200 ml 360 ml IV Total 573 ml Output Urine Total 200 ml 1100 ml # Voids 3 2 # Bowel Movements 2 1 Result Diagram: 03/31/17 0605 03/31/17 0605 Other Results Laboratory Tests Test 03/29/17 06:15 03/30/17 05:44 03/30/17 09:01 03/31/17 06:05 White Blood Count 4.6 TH/MM3 4.8 TH/MM3 3.7 TH/MM3 Red Blood Count 2.40 MIL/MM3 2.62 MIL/MM3 2.96 MIL/MM3 Hemoglobin 7.8 GM/DL 8.4 GM/DL 9.2 GM/DL Hematocrit 23.0 % 24.6 % 28.4 % Mean Corpuscular Volume 96.1 FL 94.0 FL 96.1 FL Mean Corpuscular Hemoglobin 32.6 PG 32.1 PG 31.3 PG Mean Corpuscular Hemoglobin Concent 33.9 % 34.1 % 32.6 % Red Cell Distribution Width 17.3 % 17.2 % 18.3 % Platelet Count 113 TH/MM3 101 TH/MM3 145 TH/MM3 Mean Platelet Volume 9.9 FL 10.2 FL 9.2 FL Neutrophils (%) (Auto) 80.9 % 77.0 % Lymphocytes (%) (Auto) 7.8 % 11.4 % Monocytes (%) (Auto) 5.5 % 6.7 % Eosinophils (%) (Auto) 5.3 % 4.3 % Basophils (%) (Auto) 0.5 % 0.6 % Neutrophils # (Auto) 3.7 TH/MM3 2.8 TH/MM3 Lymphocytes # (Auto) 0.4 TH/MM3 0.4 TH/MM3 Monocytes # (Auto) 0.3 TH/MM3 0.2 TH/MM3 Eosinophils # (Auto) 0.2 TH/MM3 0.2 TH/MM3 Basophils # (Auto) 0.0 TH/MM3 0.0 TH/MM3 CBC Comment DIFF FINAL AUTO DIFF AUTO DIFF Differential Comment FINAL DIFF MANUAL AUTO DIFF CONFIRMED Blood Urea Nitrogen 9 MG/DL 5 MG/DL 3 MG/DL Creatinine 1.01 MG/DL 0.90 MG/DL 0.86 MG/DL Random Glucose 132 MG/DL 79 MG/DL 85 MG/DL Total Protein 6.8 GM/DL 7.0 GM/DL 7.4 GM/DL Albumin 1.2 GM/DL 1.3 GM/DL 1.3 GM/DL Calcium Level 6.9 MG/DL 7.0 MG/DL 8.1 MG/DL Phosphorus Level 1.6 MG/DL 3.0 MG/DL 2.2 MG/DL Magnesium Level 1.9 MG/DL 1.7 MG/DL 1.6 MG/DL Alkaline Phosphatase 77 U/L 90 U/L 92 U/L Aspartate Amino Transf (AST/SGOT) 23 U/L 28 U/L 28 U/L Alanine Aminotransferase (ALT/SGPT) 11 U/L 12 U/L 12 U/L Total Bilirubin 0.3 MG/DL 0.4 MG/DL 0.5 MG/DL Sodium Level 141 MEQ/L 139 MEQ/L 140 MEQ/L Potassium Level 3.0 MEQ/L 4.3 MEQ/L 4.6 MEQ/L Chloride Level 115 MEQ/L 114 MEQ/L 116 MEQ/L Carbon Dioxide Level 20.3 MEQ/L 19.9 MEQ/L 19.8 MEQ/L Anion Gap 6 MEQ/L 5 MEQ/L 4 MEQ/L Estimat Glomerular Filtration Rate 69 ML/MIN 79 ML/MIN 84 ML/MIN Protein Corrected Calcium 7.1 MG/DL 7.1 MG/DL Ammonia 32 MCMOL/L Amylase Level 96 U/L Lipase 261 U/L Absolute Lymphocytes (Cell Immunity 339 Percent CD3 Cells 52 % Absolute CD3 Count 178 Percent CD3-/CD16+/CD56+ Cells 11 % Absolute CD3-/CD16+/CD56+ Count 38 Percent CD4 Cells 1 % Absolute CD4 Count LESS THAN 20 T-Mayer/Suppressor Ratio 0.1 Percent CD8 Cells 47 % Absolute CD8 Count 159 Percent CD19 Cells 36 % Absolute CD19 Count 121 Differential Total Cells Counted 100 Neutrophils % (Manual) 51 % Band Neutrophils % 3 % Lymphocytes % 14 % Monocytes % 13 % Eosinophils % 17 % Basophils % 1 % Neutrophils # (Manual) 2.6 TH/MM3 Myelocytes 1 % Platelet Estimate LOW Platelet Morphology Comment NORMAL Ovalocytes 1+ 1+ Hematology Comments Crenated Cell 1+ Imaging Last Impressions Abdomen/Pelvis CT 03/27/17 1040 Signed Impressions: Service Date/Time: Monday, March 27, 2017 11:43 - CONCLUSION: 1. Cirrhosis and portal hypertension with ascites and varices identified. Joe Palma MD Chest X-Ray 03/27/17 0000 Signed Impressions: Service Date/Time: Monday, March 27, 2017 15:53 - CONCLUSION: Stable bibasilar patchy opacities. Rad Cueto MD Objective Remarks GENERAL: AWAKE AND ALERT TALKATIVE AND COOPERATIVE- VERY FRAIL APPEARING SKIN: Warm and dry. HEAD: Atraumatic. Normocephalic. EYES: Pupils equal and round. No scleral icterus. No injection or drainage. EOMI ENT: No nasal bleeding or discharge. Mucous membranes pink and moist.TONGUE IS MIDLINE NECK: Trachea midline. No JVD. SUPPLE CARDIOVASCULAR: Regular rate and rhythm. S1, S2 NO S3 OR S4 NO HEAVE OR THRILL OR RUB RESPIRATORY: No accessory muscle use. Clear to auscultation. Breath sounds equal bilaterally. GASTROINTESTINAL: Abdomen soft, non-tender, nondistended. Hepatic and splenic margins not palpable. CACHECTIC MUSCULOSKELETAL: Extremities without clubbing, cyanosis, or edema. No obvious deformities. NEUROLOGICAL: Awake and alert. No obvious cranial nerve deficits. Motor grossly within normal limits. 4 out of 5 muscle strength in the arms and legs. Normal speech. PSYCHIATRIC: More mood and affect; insight and judgment improved. Procedures NONE Medications and IVs Current Medications Metronidazole 100 ml @ 100 mls/hr ONCE ONCE IV Last administered on 03/27/17 11:50; Start 03/27/17 at 10:30; Stop 03/27/17 at 11:29; Status DC Sodium Chloride 1,000 ml @ 1,000 mls/hr Q1H IV Last administered on 03/27/17 11:50; Start 03/27/17 at 10:30; Stop 03/27/17 at 11:29; Status DC Calcium Gluconate 2 gm/Sodium Chloride 120 ml @ 120 mls/hr ONCE ONCE IV Last administered on 03/27/17 13:55; Start 03/27/17 at 12:30; Stop 03/27/17 at 13:29; Status DC Hydromorphone HCl (Dilaudid Pf Inj) 0.5 mg ONCE ONCE IV PUSH Last administered on 03/27/17 13:55; Start 03/27/17 at 13:30; Stop 03/27/17 at 13:31; Status DC Potassium Chloride/Dextrose/ Sod Cl 1,000 ml @ 100 mls/hr Q10H IV Last administered on 03/31/17 09:35; Start 03/27/17 at 13:57 Sodium Chloride (NS Flush) 2 ml UNSCH PRN IV FLUSH FLUSH AFTER USING IV ACCESS ; Start 03/27/17 at 14:00; Stop 03/27/17 at 14:11; Status DC Sodium Chloride (NS Flush) 2 ml BID IV FLUSH ; Start 03/27/17 at 21:00; Stop 03/27 at 21:00; Status DC Ondansetron HCl (Zofran Inj) 4 mg Q6H PRN IVP NAUSEA OR VOMITING; Start at 14:00; Stop 03/27/17 at 16:01; Status DC Prochlorperazine (Compazine Supp) 25 mg Q12H PRN RECTAL NAUSEA OR VOMITING; Start 03/27/17 at 14:00 Zolpidem Tartrate (Ambien) 5 mg HS PRN PO INSOMNIA; Start 03/27/17 at 14:00 Enoxaparin Sodium (Lovenox Inj) 40 mg Q24H SQ Last administered on 03/30/17 15: 46; Start 03/27/17 at 15:00 Acetaminophen (Tylenol) 650 mg Q6H PRN PO PAIN SCALE 1 TO 2; Start 03/27/17 at 14:00 Oxycodone HCl (Roxicodone) 10 mg Q4H PRN PO PAIN SCALE 6 TO 10 Last administered on 03/30/17 09:15; Start 03/27/17 at 14:00 Morphine Sulfate (Morphine Inj) 2 mg Q3H PRN IV Pain 3-5; if unable to take PO ; Start 03/27/17 at 14:00 Morphine Sulfate (Morphine Inj) 4 mg Q3H PRN IV Pain 6-10;if unable to take PO ; Start 03/27/17 at 14:00 Oxycodone HCl (Roxicodone) 5 mg Q4H PRN PO PAIN SCALE 3 TO 5; Start 03/27/17 at 14:00 Naloxone HCl (Narcan Inj) 0.4 mg UNSCH PRN IV SEE LABEL COMMENTS; Start at 14:00 Senna/Docusate Sodium (Karina-Colace) 1 tab BID PO Last administered on 03/31/17 09:31; Start 03/27/17 at 21:00 Magnesium Hydroxide (Milk Of Magnesia Liq) 30 ml Q12H PRN PO MILD - MODERATE CONSTIPATION; Start 03/27/17 at 14:00 Sennosides (Senokot) 17.2 mg Q12H PRN PO MODERATE - SEVERE CONSTIPATION; Start 03/27/17 at 14:00 Bisacodyl (Dulcolax Supp) 10 mg DAILY PRN RECTAL SEVERE CONSITIPATION; Start at 14:00 Lactulose (Lactulose Liq) 30 ml DAILY PRN PO SEVERE CONSITIPATION; Start at 14:00 Sodium Chloride (NS Flush) 2 ml UNSCH PRN IV FLUSH FLUSH AFTER USING IV ACCESS ; Start 03/27/17 at 14:00 Sodium Chloride (NS Flush) 2 ml BID IV FLUSH Last administered on 03/30/17 09: 04; Start 03/27/17 at 21:00 Metronidazole 100 ml @ 100 mls/hr Q8H IV Last administered on 03/31/17 04:36; Start 03/27/17 at 20:00 Vancomycin HCl (VANCOMYCIN for oral use only) 500 mg QID PO Last administered on 03/31/17 09:34; Start 03/27/17 at 18:00 Lactobacillus Acidophilus (Lactinex) 1 tab TID PO Last administered on 09:33; Start 03/27/17 at 18:00 Aspirin (Aspirin Chew) 81 mg DAILY CHEW Last administered on 03/31/17 09:32; Start 03/28/17 at 09:00 Atovaquone (Mepron Liq) 1,500 mg DAILY PO Last administered on 03/31/17 09:34; Start 03/28/17 at 09:00 Azithromycin (Zithromax) 1,200 mg Q7D PO Last administered on 03/27/17 16:31; Start 03/27/17 at 16:00 Dicyclomine HCl (Bentyl) 20 mg TID PRN PO abdominal cramping; Start 03/27/17 at 15:15 Fluconazole (Diflucan) 100 mg DAILY PO Last administered on 03/31/17 09:31; Start 03/28/17 at 09:00 Abacavir Sulfate (Ziagen) 600 mg DAILY PO Last administered on 03/31/17 09:32; Start 03/28/17 at 09:00 Patient Own Medication 1 ea DAILY PO ; Start 03/28/17 at 09:00; Stop 03/28/17 at 13:45; Status DC Ondansetron HCl (Zofran Odt) 4 mg Q6HR PRN PO NAUSEA OR VOMITING Last administered on 03/28/17 03:28; Start 03/27/17 at 15:15 Pantoprazole Sodium (Protonix) 40 mg Q12HR PO Last administered on 03/31/17 09: 32; Start 03/27/17 at 21:00 Metoprolol Tartrate (Lopressor) 12.5 mg Q12HR PO Last administered on 03/31/17 09:33; Start 03/27/17 at 21:00 Tramadol HCl (Ultram) 50 mg Q6H PRN PO PAIN; Start 03/27/17 at 15:15; Stop at 16:01; Status DC Miscellaneous (Pill Splitter) 1 ea UNSCH PRN OTHER SEE LABEL COMMENTS; Start at 15:30 Lamivudine (Epivir) 300 mg DAILY PO Last administered on 03/31/17 09:30; Start 03/28/17 at 09:00 Zidovudine (Retrovir) 300 mg DAILY PO ; Start 03/28/17 at 09:00; Status Cancel Rifaximin (Xifaxan) 550 mg BID PO Last administered on 03/31/17 09:33; Start at 21:00 Calcium Gluconate 1 gm/Dextrose 110 ml @ 110 mls/hr ONCE ONCE IV Last administered on 03/28/17 09:58; Start 03/28/17 at 06:30; Stop 03/28/17 at 07:29; Status DC Potassium Phosphate 30 mmol/ Sodium Chloride 260 ml @ 43.333 mls/ hr ONCE ONCE IV Last administered on 03/28/17 09:59; Start 03/28/17 at 10:00; Stop at 15:59; Status DC Non-Formulary Medication DARUNAVIR AND COBICIS... DAILY PO Last administered on 03/31/17 09:00; Start 03/29/17 at 09:00 Piperacillin Sod/ Tazobactam Sod 50 ml @ 100 mls/hr Q8H IV Last administered on 03/31/17 09:35; Start 03/28/17 at 17:00 Potassium Phosphate 30 mmol/ Sodium Chloride 260 ml @ 43.333 mls/ hr ONCE ONCE IV Last administered on 03/29/17 11:25; Start 03/29/17 at 10:00; Stop at 15:59; Status DC Potassium Phosphate 30 mmol/ Sodium Chloride 260 ml @ 43.333 mls/ hr ONCE ONCE IV Last administered on 03/29/17 17:03; Start 03/29/17 at 16:00; Stop at 21:59; Status DC Calcium Chloride 1 gm/Sodium Chloride 100 ml @ 100 mls/hr ONCE ONCE IV Last administered on 03/29/17 09:52; Start 03/29/17 at 09:00; Stop 03/29/17 at 09:59; Status DC Calcium Chloride 1 gm/Sodium Chloride 100 ml @ 100 mls/hr ONCE ONCE IV Last administered on 03/30/17 15:45; Start 03/30/17 at 15:00; Stop 03/30/17 at 15:59; Status DC Calcium Carbonate (Oscal) 1,000 mg BID PO Last administered on 03/31/17 09:31; Start 03/30/17 at 21:00 Urinary Catheter: No Vascular Central Line Catheter: No A/P Problem List: (1) C. 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 ICD Code: B20 - Human immunodeficiency virus [HIV] disease Status: Acute (5) AIDS-associated secretory diarrhea ICD Code: B20 - Human immunodeficiency virus [HIV] disease; A08.4 - Viral intestinal infection, unspecified Status: Acute (6) Colitis ICD Code: K52.9 - Noninfective gastroenteritis and colitis, unspecified Status: Resolved (7) Ascites ICD Code: R18.8 - Other ascites Status: Acute (8) Liver cirrhosis ICD Code: K74.60 - Unspecified cirrhosis of liver Status: Acute (9) Severe protein-calorie malnutrition ICD Code: E43 - Unspecified severe protein-calorie malnutrition Status: Chronic Assessment and Plan C. difficile colitis versus colitis versus diverticulitis versus pancreatitis. She has been treated in the emergency department with hydration and pain control. Stool studies were done ACUTE pancreatitis IMPROVED hypocalcemia DUE TO MALNUTRITION AND PCM, AND DIARRHEA- WILL REPLACE BY PROTOCOL HIV and AIDS POOR COMPLIANCE- FULL BLOWN AIDS HYPOKALEMIA WILL REPLACE AND RECHECK BANDEMIA-DEFER TO ID 1. abdominal pain / pancreatitis with HIV and AIDS. 2. Rule out C. difficile toxin colitis POSITIVE CDT COLITIS . Rule out other protozoan infections. Will get stool studies. 3. Fevers and chills. 4. Abdominal pain. 5. Positive pancreatitis. Will repeat labs in the morning. 6. Abdominal pain. 7. Poor compliance and very lethargic at the moment. 8. Thrombocytopenia. 9. Anemia. 10. History of CVAs. 11. History of hypertension with what sounds like some poor compliance. 12. History of alcohol abuse. 13. Tobacco abuse. THROMBOCYTOPENIA BANDEMIA SEVERE PCM HYPOPHOS WILL REPLACE AM LABS The patient will be admitted. Will continue to follow her throughout the admission. Will continue her on her home medications if she can tolerate. Continue her on the aspirin, Zithromax. Continue on the Bentyl. Continue on the Diflucan. Continue her on her HIV medications. Continue on Zofran. Will make her a full admission. Will consult case management. CLEAR LIQUID DIET Continue on fluids. C. difficile toxin, CBC, comprehensive metabolic panel, TSH, free T4, hemoglobin A1c, magnesium and phosphorus. Continue on Flagyl IV as well as the Vancomycin orally if she can take it. Will get a.m. labs. Will continue to follow her amylase and lipase. Will monitor her and make sure she is on some Protonix for her stomach. Will continue occupational therapy and physical therapy. Get case management involved. She is a full code We will consult GI as well as infectious disease regarding the abdominal pain and the C. Difficile. She will continue on DVT prophylaxis with SCDs and ANGI-hose. Will monitor her for any other issues that may arise. SCDs and continue on DVT prophylaxis and GI prophylaxis. Will continue her on Protonix and continue her on Lovenox. Will follow her for any other issues that may arise. ADD ZOSYN FOR UTI PALLIATIVE CARE CONSULT REPLACE POTASSIUM AND PHOS RECHECK IN AM POOR PROGNOSIS IS FULL CODE Yosef Antoine DO Mar 31, 2017 11:01
[2017-03-31 12:00] VITALS: BP 125/62; PULSE 79; RESP 16; TEMP 98; O2SAT 100
[2017-03-31] MEDS ORDERED: SODIUM PHOSPHATE INJ 30 MMOL in SODIUM CHLOR 0.9% 250 ML INJ 250 ML IV ONE (12:00)
[2017-03-31] MEDS: MAGNESIUM SULFATE 1 GM PREMIX 100 ML IV SCH ×2 (12:06→12:47)
[2017-03-31 13:52] LABS: HIV RNA LOG COPIES 5.5 (<1.30)
[2017-03-31] MEDS: ENOXAPARIN SODIUM 40 MG/0.4 ML SYRINGE SQ SCH (14:15)
--- NOTE | 2017-03-31 15:11 | HHI.GIFU ---
Subjective Remarks Resting in bed. Feeling better. 3 bowel movements today- starting to have more consistency. tolerating diet. (Sil Ash) Objective Vitals I&O Vital Signs Date Time Temp Pulse Resp B/P (MAP) Pulse Ox O2 Delivery O2 Flow Rate FiO2 03/31/17 04:00 97.9 79 18 116/58 (77) 96 03/30/17 23:54 96.7 75 17 106/60 (75) 92 03/30/17 20:00 96.4 71 18 126/74 (91) 97 03/30/17 16:00 97.8 80 19 95/56 (69) 100 I/O 03/30/17 03/30/17 03/30/17 03/31/17 03/31/17 03/31/17 06:59 14:59 22:59 06:59 14:59 22:59 Intake Total 813 ml 120 ml 1200 ml 360 ml Output Total 200 ml 1100 ml Balance 613 ml 120 ml 100 ml 360 ml Intake Oral 240 ml 120 ml 1200 ml 360 ml IV Total 573 ml Output Urine Total 200 ml 1100 ml # Voids 3 2 # Bowel Movements 2 1 Laboratory Laboratory Tests Test 03/31/17 06:05 White Blood Count 3.7 Red Blood Count 2.96 Hemoglobin 9.2 Hematocrit 28.4 Mean Corpuscular Volume 96.1 Mean Corpuscular Hemoglobin 31.3 Mean Corpuscular Hemoglobin Concent 32.6 Red Cell Distribution Width 18.3 Platelet Count 145 Mean Platelet Volume 9.2 Neutrophils (%) (Auto) 77.0 Lymphocytes (%) (Auto) 11.4 Monocytes (%) (Auto) 6.7 Eosinophils (%) (Auto) 4.3 Basophils (%) (Auto) 0.6 Neutrophils # (Auto) 2.8 Lymphocytes # (Auto) 0.4 Monocytes # (Auto) 0.2 Eosinophils # (Auto) 0.2 Basophils # (Auto) 0.0 CBC Comment AUTO DIFF Differential Comment AUTO DIFF CONFIRMED Ovalocytes 1+ Crenated Cell 1+ Blood Urea Nitrogen 3 Creatinine 0.86 Random Glucose 85 Total Protein 7.4 Albumin 1.3 Calcium Level 8.1 Phosphorus Level 2.2 Magnesium Level 1.6 Alkaline Phosphatase 92 Aspartate Amino Transf (AST/SGOT) 28 Alanine Aminotransferase (ALT/SGPT) 12 Total Bilirubin 0.5 Sodium Level 140 Potassium Level 4.6 Chloride Level 116 Carbon Dioxide Level 19.8 Anion Gap 4 Estimat Glomerular Filtration Rate 84 Date/Time Source Procedure Growth Status 03/27/17 16:20 Blood Peripheral Aerobic Blood Culture - Preliminary NO GROWTH IN 4 DAYS Resulted 03/27/17 16:20 Blood Peripheral Anaerobic Blood Culture - Preliminary NO GROWTH IN 4 DAYS Resulted 03/27/17 13:20 Stool Stool Acid Fast Stain - Final NO ACID FAST BACILLI SEEN Resulted 03/27/17 13:20 Stool Stool Mycobacterial Culture Pending Resulted 03/27/17 12:50 Urine Clean Catch Urine Culture - Final Staphylococcus Aureus Complete Imaging Last Impressions Abdomen/Pelvis CT 03/27/17 1040 Signed Impressions: Service Date/Time: Monday, March 27, 2017 11:43 - CONCLUSION: 1. Cirrhosis and portal hypertension with ascites and varices identified. Joe Palma MD Chest X-Ray 03/27/17 0000 Signed Impressions: Service Date/Time: Monday, March 27, 2017 15:53 - CONCLUSION: Stable bibasilar patchy opacities. Rad Cueto MD Physical Exam HEENT: Normocephalic; atraumatic; no jaundice. NECK: Neck is supple. CHEST: CTA CARDIAC: RRR with no murmur gallop or rubs. ABDOMEN: Soft, mild distention, mild diffuse tenderness; bowel sounds are present x 4. EXTREMITIES: No clubbing, cyanosis, or edema. SKIN: Normal; no rash; no jaundice. COLD WORKING INSPECTOR: Lethargic (Sil Ash MAINTENANCE SERVICE SUPERVISOR) Assessment and Plan Plan ASSESSMENT - C difficile diarrhea. Epid 027 (+). CT Abdomen/Pelvis 03/27/17--CONCLUSION: 1. Cirrhosis and portal hypertension with ascites and varices identified. 3 loose stools today, starting to have more consistency. Flagyl, oral vanco. WBC 3.7. - Liver cirrhosis with evidence of portal hypertension, ascites, and varices on CT imaging. LFTs stable. - Anemia. EGD/Colonoscopy (01/05/16)---> normal duodenum, gastritis in the antrum, stricture/Schatzki's ring distal esophagus status post dilatation 14 savory guidewire, hiatal hernia, 2 diminutive polyps in cecum 5 mm and 6 mm each, cold biopsy with complete removal, 2 polyps at hepatic flexure 6 mm each cold biopsy with complete removal, no normal colon otherwise random biopsies of the ascending and descending colon, medium internal hemorrhoids, decreased sphincter tone. Pathology with small intestinal mucosa without significant histopathologic abnormality, severe chronic gastritis, negative for helicobacter pylori, hepatic flexure adenomatous polyp, ascending colonic mucosa without significant histopathologic abnormality, adenomatous polyp cecum, descending colon with colonic mucosa without significant histopathologic abnormality. 9.2/ 28.4. No active bleeding. - MADELINE, Hypokalemia per attending. - HIV/AIDS, per attending. PLAN: - JARAD - Continue Vancomycin - Continue Flagyl - Monitor labs - Monitor stool output - Supportive care - Further recommendations to follow based on results of above. - Pt seen and examined by Dr. Stone and myself and this note is written on his behalf (Sil Ash) Plan Patient was seen and examined, agree with the above note, her diarrhea is improving with more consistency and less watery stool. She still have some abdominal discomfort but tolerating diet reasonably well, we will continue current medication. (Sam Stone MD) Sil Ash Mar 31, 2017 15:11 Sam Stone MD Mar 31, 2017 22:09
[2017-03-31 16:00] VITALS: BP 114/60; PULSE 82; RESP 16; TEMP 97.5; O2SAT 99
[2017-03-31] MEDS ORDERED: diphenhydrAMINE HCL 25 MG CAP PO PRN (16:00)
[2017-03-31 19:56] VITALS: PULSE 78
[2017-03-31 20:00] VITALS: BP 111/65; PULSE 84; RESP 20; TEMP 96.1; O2SAT 100
[2017-04-01] VITALS: BP 107/74; PULSE 81; RESP 20; TEMP 96; O2SAT 99
[2017-04-01] MEDS: PIPERACIL-TAZO 3.375 GM PREMIX 50 ML IV SCH ×2 (01:13→08:15)
[2017-04-01] MEDS: D5-1/2 NS + KCL 20 MEQ INJ 1,000 ML IV SCH ×3 (03:57→22:22)
[2017-04-01 04:00] VITALS: BP 105/64; PULSE 80; RESP 20; TEMP 96.9; O2SAT 97
[2017-04-01] MEDS: metroNIDAZOLE 500 MG INJ 100 ML IV SCH (04:12)
[2017-04-01 07:32] LABS: AUTOMATED NEUTROPHIL # 3.3 TH/MM3 (1.8-7.7); BASOPHIL % 0.5 % (0.0-2.0); EOSINOPHIL # 0.1 TH/MM3 (0-0.4); EOSINOPHIL % 1.7 % (0.0-4.0); HEMATOCRIT 25.5 % (35.0-46.0); HEMO FLAGS DIFF FINAL; LYMPHOCYTE # 0.3 TH/MM3 (1.0-4.8); MEAN CORPUSCULAR HEMOGLOBIN 32.2 PG (27.0-34.0); MEAN CORPUSCULAR HGB CONC 34.3 % (32.0-36.0); MONO % 5.5 % (0.0-8.0); NEUT % 84.3 % (16.0-70.0); PLATELET COUNT 155 TH/MM3 (150-450); RED BLOOD COUNT 2.71 MIL/MM3 (4.00-5.30); RED CELL DISTRIBUTION WIDTH 17.3 % (11.6-17.2)
[2017-04-01 07:48] LABS: ALT (GPT) 12 U/L (10-53); ANION GAP 4 MEQ/L (5-15); AST (GOT) 29 U/L (15-37); BICARBONATE 22.3 MEQ/L (21.0-32.0); BLOOD UREA NITROGEN 2 MG/DL (7-18); CHLORIDE 115 MEQ/L (98-107); GLOMERULAR FILTRATION RATE 81 ML/MIN (>89); MAGNESIUM 1.8 MG/DL (1.5-2.5); POTASSIUM 4.4 MEQ/L (3.5-5.1); SODIUM (NA) 141 MEQ/L (136-145)
[2017-04-01 07:50] LABS: ALKALINE PHOSPHATASE 101 U/L (45-117); TOTAL BILIRUBIN ADULT 0.4 MG/DL (0.2-1.0)
[2017-04-01 08:00] VITALS: BP 109/69; PULSE 75; RESP 17; TEMP 95.5; O2SAT 96
[2017-04-01] MEDS: ASPIRIN 81 MG CHEW TAB CHEW SCH (08:16)
[2017-04-01] MEDS: ABACAVIR SULFATE 300 MG TAB PO SCH (08:16)
[2017-04-01] MEDS: PANTOPRAZOLE SOD 40 MG DELAYED RELEASE TAB PO SCH ×2 (08:16→22:21)
[2017-04-01] MEDS: RIFAXIMIN 550 MG TAB PO SCH ×2 (08:16→22:19)
[2017-04-01] MEDS: DOLUTEGRAVIR SODIUM 50 MG TAB PO SCH (08:16)
[2017-04-01] MEDS: VANCOMYCIN 500 MG VIAL (FOR ORAL USE ONLY) PO SCH ×4 (08:16→22:20)
[2017-04-01] MEDS: SODIUM CHLORIDE 0.9% FLUSH 10 ML FLUSH IV FLUSH SCH ×2 (08:16→22:21)
[2017-04-01] MEDS: ATOVAQUONE SUSP 750 MG/5 ML UDC PO SCH (08:17)
[2017-04-01] MEDS: LACTOBACILLUS ACIDOPHILUS TAB PO SCH ×3 (08:17→16:30)
[2017-04-01] MEDS: DARUNAVIR PO SCH (08:17)
[2017-04-01] MEDS: DOCUSATE SODIUM 50 MG/SENNA 8.6 MG TAB PO SCH ×2 (08:17→21:00)
[2017-04-01] MEDS: COBICISTAT PO SCH (08:17)
[2017-04-01] MEDS: METOPROLOL TARTRATE 25 MG TAB PO SCH ×2 (08:17→22:18)
[2017-04-01] MEDS: FLUCONAZOLE 100 MG TAB PO SCH (08:17)
[2017-04-01] MEDS: CALCIUM CARBONATE 1.25 GM (CA 500 MG) TAB PO SCH ×2 (08:18→22:20)
--- NOTE | 2017-04-01 10:57 | HHI.PR ---
Addendum to Inpatient Note Additional Information chart reviewed pt 's BMs# went down she is afebrile dc tory, sanrda zosyn cont oral vancomycin Anaid Masterson MD Apr 01, 2017 10:57
--- NOTE | 2017-04-01 11:46 | HHI.PR ---
Subjective Remarks This patient came in through the emergency department and was seen by the emergency room physician and was recommended for admission. The patient is a 52-year-old -[place] female with known history of HIV and AIDS who has been having diarrhea for about a month. She was here about two days and had diffuse abdominal cramping associated with nausea and vomiting and abdominal pain. The patient is not a very good historian and is not able to give much information. Everything was obtained from chart review. 9-4 SUSPECT PATIENT HAS FULL BLOWN AIDS AND NOT JUST HIV APPEARS TO HAVE NONCOMPLIANCE STILL HAVING DIARRHEA MORE AWAKE AND ALERT TODAY ANSWERING SOME QUESTIONS DW RN AND PT AND FAMILY WILL GET PALLIATIVE CARE CONSULT 9-5 MORE AWAKE AND ALERT TODAY STILL HAVING DIARRHEA BUT LESS ANSWERING MORE QUESTIONS SEEN BY GI, ID AND PALLIATIVE CARE DW RN AND PT 9-6 COMPLAINS OF DIARRHEA STILL MORE AWAKE AND ALERT HYPOKALEMIA REPLACE BY PROTOCOLS 9-7 patient is still having diarrhea More awake and alert Replace by protocols Needs physical therapy and occupational therapy 9-8 ON ORAL VANCO AND HER AIDS/HIV MEDS POOR COMPLIANCE WITH MEDICATIONS EVEN HERE IN THE HOSPITAL Objective Vitals Vital Signs Date Time Temp Pulse Resp B/P (MAP) Pulse Ox O2 Delivery O2 Flow Rate FiO2 04/01/17 08:00 95.5 75 17 109/69 (82) 96 04/01/17 04:00 96.9 80 20 105/64 (78) 97 04/01/17 00:00 96.0 81 20 107/74 (85) 99 03/31/17 21:39 18 03/31/17 20:00 96.1 84 20 111/65 (80) 100 03/31/17 19:56 78 03/31/17 16:00 97.5 82 16 114/60 (78) 99 03/31/17 12:00 98.0 79 16 125/62 (83) 100 I/O 03/31/17 03/31/17 03/31/17 04/01/17 04/01/17 04/01/17 07:00 15:00 23:00 07:00 15:00 23:00 Intake Total 360 ml 200 ml 3948 ml 1150 ml Balance 360 ml 200 ml 3948 ml 1150 ml Intake Oral 360 ml IV Total 200 ml 3948 ml 1150 ml # Voids 2 3 # Bowel Movements 1 Result Diagram: 04/01/17 0717 0705 Other Results Laboratory Tests Test 03/30/17 05:44 03/30/17 09:01 03/31/17 06:05 04/01/17 07:05 White Blood Count 4.8 TH/MM3 3.7 TH/MM3 4.0 TH/MM3 Red Blood Count 2.62 MIL/MM3 2.96 MIL/MM3 2.71 MIL/MM3 Hemoglobin 8.4 GM/DL 9.2 GM/DL 8.7 GM/DL Hematocrit 24.6 % 28.4 % 25.5 % Mean Corpuscular Volume 94.0 FL 96.1 FL 94.0 FL Mean Corpuscular Hemoglobin 32.1 PG 31.3 PG 32.2 PG Mean Corpuscular Hemoglobin Concent 34.1 % 32.6 % 34.3 % Red Cell Distribution Width 17.2 % 18.3 % 17.3 % Platelet Count 101 TH/MM3 145 TH/MM3 155 TH/MM3 Mean Platelet Volume 10.2 FL 9.2 FL 9.6 FL CBC Comment AUTO DIFF AUTO DIFF DIFF FINAL Differential Total Cells Counted 100 Neutrophils % (Manual) 51 % Band Neutrophils % 3 % Lymphocytes % 14 % Monocytes % 13 % Eosinophils % 17 % Basophils % 1 % Neutrophils # (Manual) 2.6 TH/MM3 Myelocytes 1 % Differential Comment FINAL DIFF MANUAL AUTO DIFF CONFIRMED Platelet Estimate LOW Platelet Morphology Comment NORMAL Ovalocytes 1+ 1+ Hematology Comments Blood Urea Nitrogen 5 MG/DL 3 MG/DL 2 MG/DL Creatinine 0.90 MG/DL 0.86 MG/DL 0.88 MG/DL Random Glucose 79 MG/DL 85 MG/DL 86 MG/DL Total Protein 7.0 GM/DL 7.4 GM/DL 7.7 GM/DL Albumin 1.3 GM/DL 1.3 GM/DL 1.4 GM/DL Calcium Level 7.0 MG/DL 8.1 MG/DL 8.0 MG/DL Phosphorus Level 3.0 MG/DL 2.2 MG/DL 2.1 MG/DL Magnesium Level 1.7 MG/DL 1.6 MG/DL 1.8 MG/DL Alkaline Phosphatase 90 U/L 92 U/L 101 U/L Aspartate Amino Transf (AST/SGOT) 28 U/L 28 U/L 29 U/L Alanine Aminotransferase (ALT/SGPT) 12 U/L 12 U/L 12 U/L Total Bilirubin 0.4 MG/DL 0.5 MG/DL 0.4 MG/DL Sodium Level 139 MEQ/L 140 MEQ/L 141 MEQ/L Potassium Level 4.3 MEQ/L 4.6 MEQ/L 4.4 MEQ/L Chloride Level 114 MEQ/L 116 MEQ/L 115 MEQ/L Carbon Dioxide Level 19.9 MEQ/L 19.8 MEQ/L 22.3 MEQ/L Anion Gap 5 MEQ/L 4 MEQ/L 4 MEQ/L Estimat Glomerular Filtration Rate 79 ML/MIN 84 ML/MIN 81 ML/MIN Protein Corrected Calcium 7.1 MG/DL Neutrophils (%) (Auto) 77.0 % 84.3 % Lymphocytes (%) (Auto) 11.4 % 8.0 % Monocytes (%) (Auto) 6.7 % 5.5 % Eosinophils (%) (Auto) 4.3 % 1.7 % Basophils (%) (Auto) 0.6 % 0.5 % Neutrophils # (Auto) 2.8 TH/MM3 3.3 TH/MM3 Lymphocytes # (Auto) 0.4 TH/MM3 0.3 TH/MM3 Monocytes # (Auto) 0.2 TH/MM3 0.2 TH/MM3 Eosinophils # (Auto) 0.2 TH/MM3 0.1 TH/MM3 Basophils # (Auto) 0.0 TH/MM3 0.0 TH/MM3 Crenated Cell 1+ Imaging Last Impressions Abdomen/Pelvis CT 03/27/17 1040 Signed Impressions: Service Date/Time: Monday, March 27, 2017 11:43 - CONCLUSION: 1. Cirrhosis and portal hypertension with ascites and varices identified. Joe Palma MD Chest X-Ray 03/27/17 0000 Signed Impressions: Service Date/Time: Monday, March 27, 2017 15:53 - CONCLUSION: Stable bibasilar patchy opacities. Rad Cueto MD Objective Remarks GENERAL: AWAKE AND ALERT TALKATIVE AND COOPERATIVE- VERY FRAIL APPEARING SKIN: Warm and dry. HEAD: Atraumatic. Normocephalic. EYES: Pupils equal and round. No scleral icterus. No injection or drainage. EOMI ENT: No nasal bleeding or discharge. Mucous membranes pink and moist.TONGUE IS MIDLINE NECK: Trachea midline. No JVD. SUPPLE CARDIOVASCULAR: Regular rate and rhythm. S1, S2 NO S3 OR S4 NO HEAVE OR THRILL OR RUB RESPIRATORY: No accessory muscle use. Clear to auscultation. Breath sounds equal bilaterally. GASTROINTESTINAL: Abdomen soft, non-tender, nondistended. Hepatic and splenic margins not palpable. CACHECTIC MUSCULOSKELETAL: Extremities without clubbing, cyanosis, or edema. No obvious deformities. NEUROLOGICAL: Awake and alert. No obvious cranial nerve deficits. Motor grossly within normal limits. 4 out of 5 muscle strength in the arms and legs. Normal speech. PSYCHIATRIC: More mood and affect; insight and judgment improved. Procedures NONE Medications and IVs Current Medications Metronidazole 100 ml @ 100 mls/hr ONCE ONCE IV Last administered on 03/27/17 11:50; Start 03/27/17 at 10:30; Stop 03/27/17 at 11:29; Status DC Sodium Chloride 1,000 ml @ 1,000 mls/hr Q1H IV Last administered on 03/27/17 11:50; Start 03/27/17 at 10:30; Stop 03/27/17 at 11:29; Status DC Calcium Gluconate 2 gm/Sodium Chloride 120 ml @ 120 mls/hr ONCE ONCE IV Last administered on 03/27/17 13:55; Start 03/27/17 at 12:30; Stop 03/27/17 at 13:29; Status DC Hydromorphone HCl (Dilaudid Pf Inj) 0.5 mg ONCE ONCE IV PUSH Last administered on 03/27/17 13:55; Start 03/27/17 at 13:30; Stop 03/27/17 at 13:31; Status DC Potassium Chloride/Dextrose/ Sod Cl 1,000 ml @ 100 mls/hr Q10H IV Last administered on 04/01/17 03:57; Start 03/27/17 at 13:57 Sodium Chloride (NS Flush) 2 ml UNSCH PRN IV FLUSH FLUSH AFTER USING IV ACCESS ; Start 03/27/17 at 14:00; Stop 03/27/17 at 14:11; Status DC Sodium Chloride (NS Flush) 2 ml BID IV FLUSH ; Start 03/27/17 at 21:00; Stop 03/27 at 21:00; Status DC Ondansetron HCl (Zofran Inj) 4 mg Q6H PRN IVP NAUSEA OR VOMITING; Start at 14:00; Stop 03/27/17 at 16:01; Status DC Prochlorperazine (Compazine Supp) 25 mg Q12H PRN RECTAL NAUSEA OR VOMITING; Start 03/27/17 at 14:00 Zolpidem Tartrate (Ambien) 5 mg HS PRN PO INSOMNIA; Start 03/27/17 at 14:00 Enoxaparin Sodium (Lovenox Inj) 40 mg Q24H SQ Last administered on 03/30/17 15: 46; Start 03/27/17 at 15:00 Acetaminophen (Tylenol) 650 mg Q6H PRN PO PAIN SCALE 1 TO 2; Start 03/27/17 at 14:00 Oxycodone HCl (Roxicodone) 10 mg Q4H PRN PO PAIN SCALE 6 TO 10 Last administered on 03/31/17 20:39; Start 03/27/17 at 14:00 Morphine Sulfate (Morphine Inj) 2 mg Q3H PRN IV Pain 3-5; if unable to take PO ; Start 03/27/17 at 14:00 Morphine Sulfate (Morphine Inj) 4 mg Q3H PRN IV Pain 6-10;if unable to take PO ; Start 03/27/17 at 14:00 Oxycodone HCl (Roxicodone) 5 mg Q4H PRN PO PAIN SCALE 3 TO 5; Start 03/27/17 at 14:00 Naloxone HCl (Narcan Inj) 0.4 mg UNSCH PRN IV SEE LABEL COMMENTS; Start at 14:00 Senna/Docusate Sodium (Karina-Colace) 1 tab BID PO Last administered on 03/31/17 20:28; Start 03/27/17 at 21:00 Magnesium Hydroxide (Milk Of Magnesia Liq) 30 ml Q12H PRN PO MILD - MODERATE CONSTIPATION; Start 03/27/17 at 14:00 Sennosides (Senokot) 17.2 mg Q12H PRN PO MODERATE - SEVERE CONSTIPATION; Start 03/27/17 at 14:00 Bisacodyl (Dulcolax Supp) 10 mg DAILY PRN RECTAL SEVERE CONSITIPATION; Start at 14:00 Lactulose (Lactulose Liq) 30 ml DAILY PRN PO SEVERE CONSITIPATION; Start at 14:00 Sodium Chloride (NS Flush) 2 ml UNSCH PRN IV FLUSH FLUSH AFTER USING IV ACCESS ; Start 03/27/17 at 14:00 Sodium Chloride (NS Flush) 2 ml BID IV FLUSH Last administered on 03/30/17 09: 04; Start 03/27/17 at 21:00 Metronidazole 100 ml @ 100 mls/hr Q8H IV Last administered on 04/01/17 04:12; Start 03/27/17 at 20:00; Stop 04/01/17 at 10:59; Status DC Vancomycin HCl (VANCOMYCIN for oral use only) 500 mg QID PO Last administered on 04/01/17 08:16; Start 03/27/17 at 18:00 Lactobacillus Acidophilus (Lactinex) 1 tab TID PO Last administered on 08:17; Start 03/27/17 at 18:00 Aspirin (Aspirin Chew) 81 mg DAILY CHEW Last administered on 04/01/17 08:16; Start 03/28/17 at 09:00 Atovaquone (Mepron Liq) 1,500 mg DAILY PO Last administered on 04/01/17 08:17; Start 03/28/17 at 09:00 Azithromycin (Zithromax) 1,200 mg Q7D PO Last administered on 03/27/17 16:31; Start 03/27/17 at 16:00 Dicyclomine HCl (Bentyl) 20 mg TID PRN PO abdominal cramping; Start 03/27/17 at 15:15 Fluconazole (Diflucan) 100 mg DAILY PO Last administered on 04/01/17 08:17; Start 03/28/17 at 09:00 Abacavir Sulfate (Ziagen) 600 mg DAILY PO Last administered on 04/01/17 08:16; Start 03/28/17 at 09:00 Patient Own Medication 1 ea DAILY PO ; Start 03/28/17 at 09:00; Stop 03/28/17 at 13:45; Status DC Ondansetron HCl (Zofran Odt) 4 mg Q6HR PRN PO NAUSEA OR VOMITING Last administered on 03/28/17 03:28; Start 03/27/17 at 15:15 Pantoprazole Sodium (Protonix) 40 mg Q12HR PO Last administered on 04/01/17 08: 16; Start 03/27/17 at 21:00 Metoprolol Tartrate (Lopressor) 12.5 mg Q12HR PO Last administered on 03/31/17 20:28; Start 03/27/17 at 21:00 Tramadol HCl (Ultram) 50 mg Q6H PRN PO PAIN; Start 03/27/17 at 15:15; Stop at 16:01; Status DC Miscellaneous (Pill Splitter) 1 ea UNSCH PRN OTHER SEE LABEL COMMENTS; Start at 15:30 Lamivudine (Epivir) 300 mg DAILY PO Last administered on 04/01/17 08:16; Start 03/28/17 at 09:00 Zidovudine (Retrovir) 300 mg DAILY PO ; Start 03/28/17 at 09:00; Status Cancel Rifaximin (Xifaxan) 550 mg BID PO Last administered on 04/01/17 08:16; Start at 21:00 Calcium Gluconate 1 gm/Dextrose 110 ml @ 110 mls/hr ONCE ONCE IV Last administered on 03/28/17 09:58; Start 03/28/17 at 06:30; Stop 03/28/17 at 07:29; Status DC Potassium Phosphate 30 mmol/ Sodium Chloride 260 ml @ 43.333 mls/ hr ONCE ONCE IV Last administered on 03/28/17 09:59; Start 03/28/17 at 10:00; Stop at 15:59; Status DC Non-Formulary Medication DARUNAVIR AND COBICIS... DAILY PO Last administered on 04/01/17 08:17; Start 03/29/17 at 09:00 Piperacillin Sod/ Tazobactam Sod 50 ml @ 100 mls/hr Q8H IV Last administered on 04/01/17 08:15; Start 03/28/17 at 17:00; Stop 04/01/17 at 10:57; Status DC Potassium Phosphate 30 mmol/ Sodium Chloride 260 ml @ 43.333 mls/ hr ONCE ONCE IV Last administered on 03/29/17 11:25; Start 03/29/17 at 10:00; Stop at 15:59; Status DC Potassium Phosphate 30 mmol/ Sodium Chloride 260 ml @ 43.333 mls/ hr ONCE ONCE IV Last administered on 03/29/17 17:03; Start 03/29/17 at 16:00; Stop at 21:59; Status DC Calcium Chloride 1 gm/Sodium Chloride 100 ml @ 100 mls/hr ONCE ONCE IV Last administered on 03/29/17 09:52; Start 03/29/17 at 09:00; Stop 03/29/17 at 09:59; Status DC Calcium Chloride 1 gm/Sodium Chloride 100 ml @ 100 mls/hr ONCE ONCE IV Last administered on 03/30/17 15:45; Start 03/30/17 at 15:00; Stop 03/30/17 at 15:59; Status DC Calcium Carbonate (Oscal) 1,000 mg BID PO Last administered on 04/01/17 08:18; Start 03/30/17 at 21:00 Magnesium Sulfate/ Dextrose 100 ml @ 100 mls/hr Q1H IV Last administered on 12:47; Start 03/31/17 at 12:00; Stop 03/31/17 at 13:59; Status DC Sodium Phosphate 30 mmol/Sodium Chloride 260 ml @ 43.333 mls/ hr ONCE ONCE IV Last administered on 03/31/17 12:47; Start 03/31/17 at 12:00; Stop 03/31/17 at 17:59; Status DC Diphenhydramine HCl (Benadryl) 25 mg Q6H PRN PO itching Last administered on 16:59; Start 03/31/17 at 16:00 Urinary Catheter: No Vascular Central Line Catheter: No A/P Problem List: (1) C. 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 ICD Code: B20 - Human immunodeficiency virus [HIV] disease Status: Acute (5) AIDS-associated secretory diarrhea ICD Code: B20 - Human immunodeficiency virus [HIV] disease; A08.4 - Viral intestinal infection, unspecified Status: Acute (6) Colitis ICD Code: K52.9 - Noninfective gastroenteritis and colitis, unspecified Status: Resolved (7) Ascites ICD Code: R18.8 - Other ascites Status: Acute (8) Liver cirrhosis ICD Code: K74.60 - Unspecified cirrhosis of liver Status: Acute (9) Severe protein-calorie malnutrition ICD Code: E43 - Unspecified severe protein-calorie malnutrition Status: Chronic Assessment and Plan C. difficile colitis versus colitis versus diverticulitis versus pancreatitis. She has been treated in the emergency department with hydration and pain control. Stool studies were done ACUTE pancreatitis IMPROVED hypocalcemia DUE TO MALNUTRITION AND PCM, AND DIARRHEA- WILL REPLACE BY PROTOCOL HIV and AIDS POOR COMPLIANCE- FULL BLOWN AIDS CDT ON ORAL VANCO NOW HYPOKALEMIA WILL REPLACE AND RECHECK BANDEMIA-DEFER TO ID 1. abdominal pain / pancreatitis with HIV and AIDS. 2. Rule out C. difficile toxin colitis POSITIVE CDT COLITIS . Rule out other protozoan infections. Will get stool studies. 3. Fevers and chills. 4. Abdominal pain. 5. Positive pancreatitis. Will repeat labs in the morning. 6. Abdominal pain. 7. Poor compliance and very lethargic at the moment. 8. Thrombocytopenia. 9. Anemia. 10. History of CVAs. 11. History of hypertension with what sounds like some poor compliance. 12. History of alcohol abuse. 13. Tobacco abuse. THROMBOCYTOPENIA BANDEMIA SEVERE PCM HYPOPHOS WILL REPLACE AM LABS The patient will be admitted. Will continue to follow her throughout the admission. Will continue her on her home medications if she can tolerate. Continue her on the aspirin, Zithromax. Continue on the Bentyl. Continue on the Diflucan. Continue her on her HIV medications. Continue on Zofran. Will make her a full admission. Will consult case management. C. difficile toxin, CBC, comprehensive metabolic panel, TSH, free T4, hemoglobin A1c, magnesium and phosphorus. Continue on the Vancomycin orally if she can take it. Will monitor her and make sure she is on some Protonix for her stomach. Will continue occupational therapy and physical therapy. Get case management involved. She is a full code We will consult GI as well as infectious disease regarding the abdominal pain and the C. Difficile. She will continue on DVT prophylaxis with SCDs and ANGI-hose. Will monitor her for any other issues that may arise. SCDs and continue on DVT prophylaxis and GI prophylaxis. Will continue her on Protonix and continue her on Lovenox. Will follow her for any other issues that may arise. PALLIATIVE CARE CONSULT REPLACE POTASSIUM AND PHOS RECHECK IN AM POOR PROGNOSIS IS FULL CODE NOT MOVING MUCH YET Yosef Antoine DO Apr 01, 2017 11:46
[2017-04-01 12:00] VITALS: BP 118/71; PULSE 80; RESP 17; TEMP 96.7; O2SAT 97
[2017-04-01] MEDS: ENOXAPARIN SODIUM 40 MG/0.4 ML SYRINGE SQ SCH (14:38)
[2017-04-01 16:00] VITALS: BP 112/67; PULSE 76; RESP 16; TEMP 96.5; O2SAT 100
[2017-04-01 20:00] VITALS: BP 119/68; PULSE 79; PULSE 81; RESP 19; TEMP 98.2; O2SAT 100
[2017-04-02] VITALS: BP 113/62; PULSE 78; RESP 19; TEMP 96.7; O2SAT 98
[2017-04-02 04:00] VITALS: BP 100/57; PULSE 85; RESP 20; TEMP 98; O2SAT 98
[2017-04-02 08:00] VITALS: BP 107/60; PULSE 83; RESP 16; TEMP 97.6; O2SAT 100
[2017-04-02] MEDS: SODIUM CHLORIDE 0.9% FLUSH 10 ML FLUSH IV FLUSH SCH (08:53)
[2017-04-02] MEDS: DARUNAVIR PO SCH (08:55)
[2017-04-02] MEDS: LACTOBACILLUS ACIDOPHILUS TAB PO SCH (08:55)
[2017-04-02] MEDS: COBICISTAT PO SCH (08:55)
[2017-04-02] MEDS: FLUCONAZOLE 100 MG TAB PO SCH (08:56)
[2017-04-02] MEDS: RIFAXIMIN 550 MG TAB PO SCH (08:56)
[2017-04-02] MEDS: ASPIRIN 81 MG CHEW TAB CHEW SCH (08:56)
[2017-04-02] MEDS: ABACAVIR SULFATE 300 MG TAB PO SCH (08:56)
[2017-04-02] MEDS: DOCUSATE SODIUM 50 MG/SENNA 8.6 MG TAB PO SCH (08:56)
[2017-04-02] MEDS: VANCOMYCIN 500 MG VIAL (FOR ORAL USE ONLY) PO SCH (08:56)
[2017-04-02] MEDS: DOLUTEGRAVIR SODIUM 50 MG TAB PO SCH (08:56)
[2017-04-02] MEDS: PANTOPRAZOLE SOD 40 MG DELAYED RELEASE TAB PO SCH (08:56)
[2017-04-02] MEDS: ATOVAQUONE SUSP 750 MG/5 ML UDC PO SCH (08:57)
[2017-04-02] MEDS: D5-1/2 NS + KCL 20 MEQ INJ 1,000 ML IV SCH (08:57)
[2017-04-02] MEDS: CALCIUM CARBONATE 1.25 GM (CA 500 MG) TAB PO SCH (08:57)
[2017-04-02] MEDS: METOPROLOL TARTRATE 25 MG TAB PO SCH (08:57)
--- NOTE | 2017-04-02 10:30 | HHI.PR ---
Subjective Remarks This patient came in through the emergency department and was seen by the emergency room physician and was recommended for admission. The patient is a 52-year-old -[place] female with known history of HIV and AIDS who has been having diarrhea for about a month. She was here about two days and had diffuse abdominal cramping associated with nausea and vomiting and abdominal pain. The patient is not a very good historian and is not able to give much information. Everything was obtained from chart review. 9-4 SUSPECT PATIENT HAS FULL BLOWN AIDS AND NOT JUST HIV APPEARS TO HAVE NONCOMPLIANCE STILL HAVING DIARRHEA MORE AWAKE AND ALERT TODAY ANSWERING SOME QUESTIONS DW RN AND PT AND FAMILY WILL GET PALLIATIVE CARE CONSULT 9-5 MORE AWAKE AND ALERT TODAY STILL HAVING DIARRHEA BUT LESS ANSWERING MORE QUESTIONS SEEN BY GI, ID AND PALLIATIVE CARE DW RN AND PT 9-6 COMPLAINS OF DIARRHEA STILL MORE AWAKE AND ALERT HYPOKALEMIA REPLACE BY PROTOCOLS 9-7 patient is still having diarrhea More awake and alert Replace by protocols Needs physical therapy and occupational therapy 9-8 ON ORAL VANCO AND HER AIDS/HIV MEDS POOR COMPLIANCE WITH MEDICATIONS EVEN HERE IN THE HOSPITAL 9-9 PATIENT STATES SHE IS TOLERATING A DIET STOOL IS LESS WATERY WANTS TO GO HOME WILL DC TO HOME TODAY DW RN AND PT AND FAMILY DC ON ORAL VANCO 6 WEEKS Objective Vitals Vital Signs Date Time Temp Pulse Resp B/P (MAP) Pulse Ox O2 Delivery O2 Flow Rate FiO2 04/02/17 08:00 97.6 83 16 107/60 (76) 100 04/02/17 05:42 18 04/02/17 04:00 98.0 85 20 100/57 (71) 98 04/02/17 00:00 96.7 78 19 113/62 (79) 98 04/01/17 20:00 81 04/01/17 20:00 98.2 79 19 119/68 (85) 100 04/01/17 16:00 96.5 76 16 112/67 (82) 100 04/01/17 12:00 96.7 80 17 118/71 (87) 97 I/O 04/01/17 04/01/17 04/01/17 04/02/17 04/02/17 04/02/17 07:00 15:00 23:00 07:00 15:00 23:00 Intake Total 1150 ml 940 ml 240 ml Balance 1150 ml 940 ml 240 ml Intake Oral 940 ml 240 ml IV Total 1150 ml # Voids 3 1 5 3 # Bowel Movements 4 2 Result Diagram: 04/01/17 0705 04/01/17 0705 Other Results Laboratory Tests Test 03/31/17 06:05 04/01/17 07:05 White Blood Count 3.7 TH/MM3 4.0 TH/MM3 Red Blood Count 2.96 MIL/MM3 2.71 MIL/MM3 Hemoglobin 9.2 GM/DL 8.7 GM/DL Hematocrit 28.4 % 25.5 % Mean Corpuscular Volume 96.1 FL 94.0 FL Mean Corpuscular Hemoglobin 31.3 PG 32.2 PG Mean Corpuscular Hemoglobin Concent 32.6 % 34.3 % Red Cell Distribution Width 18.3 % 17.3 % Platelet Count 145 TH/MM3 155 TH/MM3 Mean Platelet Volume 9.2 FL 9.6 FL Neutrophils (%) (Auto) 77.0 % 84.3 % Lymphocytes (%) (Auto) 11.4 % 8.0 % Monocytes (%) (Auto) 6.7 % 5.5 % Eosinophils (%) (Auto) 4.3 % 1.7 % Basophils (%) (Auto) 0.6 % 0.5 % Neutrophils # (Auto) 2.8 TH/MM3 3.3 TH/MM3 Lymphocytes # (Auto) 0.4 TH/MM3 0.3 TH/MM3 Monocytes # (Auto) 0.2 TH/MM3 0.2 TH/MM3 Eosinophils # (Auto) 0.2 TH/MM3 0.1 TH/MM3 Basophils # (Auto) 0.0 TH/MM3 0.0 TH/MM3 CBC Comment AUTO DIFF DIFF FINAL Differential Comment AUTO DIFF CONFIRMED Ovalocytes 1+ Crenated Cell 1+ Blood Urea Nitrogen 3 MG/DL 2 MG/DL Creatinine 0.86 MG/DL 0.88 MG/DL Random Glucose 85 MG/DL 86 MG/DL Total Protein 7.4 GM/DL 7.7 GM/DL Albumin 1.3 GM/DL 1.4 GM/DL Calcium Level 8.1 MG/DL 8.0 MG/DL Phosphorus Level 2.2 MG/DL 2.1 MG/DL Magnesium Level 1.6 MG/DL 1.8 MG/DL Alkaline Phosphatase 92 U/L 101 U/L Aspartate Amino Transf (AST/SGOT) 28 U/L 29 U/L Alanine Aminotransferase (ALT/SGPT) 12 U/L 12 U/L Total Bilirubin 0.5 MG/DL 0.4 MG/DL Sodium Level 140 MEQ/L 141 MEQ/L Potassium Level 4.6 MEQ/L 4.4 MEQ/L Chloride Level 116 MEQ/L 115 MEQ/L Carbon Dioxide Level 19.8 MEQ/L 22.3 MEQ/L Anion Gap 4 MEQ/L 4 MEQ/L Estimat Glomerular Filtration Rate 84 ML/MIN 81 ML/MIN Imaging Last Impressions Abdomen/Pelvis CT 03/27/17 1040 Signed Impressions: Service Date/Time: Monday, March 27, 2017 11:43 - CONCLUSION: 1. Cirrhosis and portal hypertension with ascites and varices identified. Joe Palma MD Chest X-Ray 03/27/17 0000 Signed Impressions: Service Date/Time: Monday, March 27, 2017 15:53 - CONCLUSION: Stable bibasilar patchy opacities. Rad Cueto MD Objective Remarks GENERAL: AWAKE AND ALERT TALKATIVE AND COOPERATIVE- VERY FRAIL APPEARING SKIN: Warm and dry. HEAD: Atraumatic. Normocephalic. EYES: Pupils equal and round. No scleral icterus. No injection or drainage. EOMI ENT: No nasal bleeding or discharge. Mucous membranes pink and moist.TONGUE IS MIDLINE NECK: Trachea midline. No JVD. SUPPLE CARDIOVASCULAR: Regular rate and rhythm. S1, S2 NO S3 OR S4 NO HEAVE OR THRILL OR RUB RESPIRATORY: No accessory muscle use. Clear to auscultation. Breath sounds equal bilaterally. GASTROINTESTINAL: Abdomen soft, non-tender, nondistended. Hepatic and splenic margins not palpable. CACHECTIC MUSCULOSKELETAL: Extremities without clubbing, cyanosis, or edema. No obvious deformities. NEUROLOGICAL: Awake and alert. No obvious cranial nerve deficits. Motor grossly within normal limits. 4 out of 5 muscle strength in the arms and legs. Normal speech. PSYCHIATRIC: More mood and affect; insight and judgment improved. Procedures NONE Medications and IVs Current Medications Metronidazole 100 ml @ 100 mls/hr ONCE ONCE IV Last administered on 03/27/17 11:50; Start 03/27/17 at 10:30; Stop 03/27/17 at 11:29; Status DC Sodium Chloride 1,000 ml @ 1,000 mls/hr Q1H IV Last administered on 03/27/17 11:50; Start 03/27/17 at 10:30; Stop 03/27/17 at 11:29; Status DC Calcium Gluconate 2 gm/Sodium Chloride 120 ml @ 120 mls/hr ONCE ONCE IV Last administered on 03/27/17 13:55; Start 03/27/17 at 12:30; Stop 03/27/17 at 13:29; Status DC Hydromorphone HCl (Dilaudid Pf Inj) 0.5 mg ONCE ONCE IV PUSH Last administered on 03/27/17 13:55; Start 03/27/17 at 13:30; Stop 03/27/17 at 13:31; Status DC Potassium Chloride/Dextrose/ Sod Cl 1,000 ml @ 100 mls/hr Q10H IV Last administered on 04/02/17 08:57; Start 03/27/17 at 13:57 Sodium Chloride (NS Flush) 2 ml UNSCH PRN IV FLUSH FLUSH AFTER USING IV ACCESS ; Start 03/27/17 at 14:00; Stop 03/27/17 at 14:11; Status DC Sodium Chloride (NS Flush) 2 ml BID IV FLUSH ; Start 03/27/17 at 21:00; Stop 03/27 at 21:00; Status DC Ondansetron HCl (Zofran Inj) 4 mg Q6H PRN IVP NAUSEA OR VOMITING; Start at 14:00; Stop 03/27/17 at 16:01; Status DC Prochlorperazine (Compazine Supp) 25 mg Q12H PRN RECTAL NAUSEA OR VOMITING; Start 03/27/17 at 14:00 Zolpidem Tartrate (Ambien) 5 mg HS PRN PO INSOMNIA; Start 03/27/17 at 14:00 Enoxaparin Sodium (Lovenox Inj) 40 mg Q24H SQ Last administered on 04/01/17 14: 38; Start 03/27/17 at 15:00 Acetaminophen (Tylenol) 650 mg Q6H PRN PO PAIN SCALE 1 TO 2; Start 03/27/17 at 14:00 Oxycodone HCl (Roxicodone) 10 mg Q4H PRN PO PAIN SCALE 6 TO 10 Last administered on 04/02/17 04:42; Start 03/27/17 at 14:00 Morphine Sulfate (Morphine Inj) 2 mg Q3H PRN IV Pain 3-5; if unable to take PO ; Start 03/27/17 at 14:00 Morphine Sulfate (Morphine Inj) 4 mg Q3H PRN IV Pain 6-10;if unable to take PO ; Start 03/27/17 at 14:00 Oxycodone HCl (Roxicodone) 5 mg Q4H PRN PO PAIN SCALE 3 TO 5; Start 03/27/17 at 14:00 Naloxone HCl (Narcan Inj) 0.4 mg UNSCH PRN IV SEE LABEL COMMENTS; Start at 14:00 Senna/Docusate Sodium (Karina-Colace) 1 tab BID PO Last administered on 03/31/17 20:28; Start 03/27/17 at 21:00 Magnesium Hydroxide (Milk Of Magnesia Liq) 30 ml Q12H PRN PO MILD - MODERATE CONSTIPATION; Start 03/27/17 at 14:00 Sennosides (Senokot) 17.2 mg Q12H PRN PO MODERATE - SEVERE CONSTIPATION; Start 03/27/17 at 14:00 Bisacodyl (Dulcolax Supp) 10 mg DAILY PRN RECTAL SEVERE CONSITIPATION; Start at 14:00 Lactulose (Lactulose Liq) 30 ml DAILY PRN PO SEVERE CONSITIPATION; Start at 14:00 Sodium Chloride (NS Flush) 2 ml UNSCH PRN IV FLUSH FLUSH AFTER USING IV ACCESS ; Start 03/27/17 at 14:00 Sodium Chloride (NS Flush) 2 ml BID IV FLUSH Last administered on 04/01/17 22: 21; Start 03/27/17 at 21:00 Metronidazole 100 ml @ 100 mls/hr Q8H IV Last administered on 04/01/17 04:12; Start 03/27/17 at 20:00; Stop 04/01/17 at 10:59; Status DC Vancomycin HCl (VANCOMYCIN for oral use only) 500 mg QID PO Last administered on 04/02/17 08:56; Start 03/27/17 at 18:00 Lactobacillus Acidophilus (Lactinex) 1 tab TID PO Last administered on 08:55; Start 03/27/17 at 18:00 Aspirin (Aspirin Chew) 81 mg DAILY CHEW Last administered on 04/02/17 08:56; Start 03/28/17 at 09:00 Atovaquone (Mepron Liq) 1,500 mg DAILY PO Last administered on 04/02/17 08:57; Start 03/28/17 at 09:00 Azithromycin (Zithromax) 1,200 mg Q7D PO Last administered on 03/27/17 16:31; Start 03/27/17 at 16:00 Dicyclomine HCl (Bentyl) 20 mg TID PRN PO abdominal cramping; Start 03/27/17 at 15:15 Fluconazole (Diflucan) 100 mg DAILY PO Last administered on 04/02/17 08:56; Start 03/28/17 at 09:00 Abacavir Sulfate (Ziagen) 600 mg DAILY PO Last administered on 04/02/17 08:56; Start 03/28/17 at 09:00 Patient Own Medication 1 ea DAILY PO ; Start 03/28/17 at 09:00; Stop 03/28/17 at 13:45; Status DC Ondansetron HCl (Zofran Odt) 4 mg Q6HR PRN PO NAUSEA OR VOMITING Last administered on 03/28/17 03:28; Start 03/27/17 at 15:15 Pantoprazole Sodium (Protonix) 40 mg Q12HR PO Last administered on 04/02/17 08: 56; Start 03/27/17 at 21:00 Metoprolol Tartrate (Lopressor) 12.5 mg Q12HR PO Last administered on 04/01/17 22:18; Start 03/27/17 at 21:00 Tramadol HCl (Ultram) 50 mg Q6H PRN PO PAIN; Start 03/27/17 at 15:15; Stop at 16:01; Status DC Miscellaneous (Pill Splitter) 1 ea UNSCH PRN OTHER SEE LABEL COMMENTS; Start at 15:30 Lamivudine (Epivir) 300 mg DAILY PO Last administered on 04/02/17 08:56; Start 03/28/17 at 09:00 Zidovudine (Retrovir) 300 mg DAILY PO ; Start 03/28/17 at 09:00; Status Cancel Rifaximin (Xifaxan) 550 mg BID PO Last administered on 04/02/17 08:56; Start at 21:00 Calcium Gluconate 1 gm/Dextrose 110 ml @ 110 mls/hr ONCE ONCE IV Last administered on 03/28/17 09:58; Start 03/28/17 at 06:30; Stop 03/28/17 at 07:29; Status DC Potassium Phosphate 30 mmol/ Sodium Chloride 260 ml @ 43.333 mls/ hr ONCE ONCE IV Last administered on 03/28/17 09:59; Start 03/28/17 at 10:00; Stop at 15:59; Status DC Non-Formulary Medication DARUNAVIR AND COBICIS... DAILY PO Last administered on 04/02/17 08:55; Start 03/29/17 at 09:00 Piperacillin Sod/ Tazobactam Sod 50 ml @ 100 mls/hr Q8H IV Last administered on 04/01/17 08:15; Start 03/28/17 at 17:00; Stop 04/01/17 at 10:57; Status DC Potassium Phosphate 30 mmol/ Sodium Chloride 260 ml @ 43.333 mls/ hr ONCE ONCE IV Last administered on 03/29/17 11:25; Start 03/29/17 at 10:00; Stop at 15:59; Status DC Potassium Phosphate 30 mmol/ Sodium Chloride 260 ml @ 43.333 mls/ hr ONCE ONCE IV Last administered on 03/29/17 17:03; Start 03/29/17 at 16:00; Stop at 21:59; Status DC Calcium Chloride 1 gm/Sodium Chloride 100 ml @ 100 mls/hr ONCE ONCE IV Last administered on 03/29/17 09:52; Start 03/29/17 at 09:00; Stop 03/29/17 at 09:59; Status DC Calcium Chloride 1 gm/Sodium Chloride 100 ml @ 100 mls/hr ONCE ONCE IV Last administered on 03/30/17 15:45; Start 03/30/17 at 15:00; Stop 03/30/17 at 15:59; Status DC Calcium Carbonate (Oscal) 1,000 mg BID PO Last administered on 04/02/17 08:57; Start 03/30/17 at 21:00 Magnesium Sulfate/ Dextrose 100 ml @ 100 mls/hr Q1H IV Last administered on 12:47; Start 03/31/17 at 12:00; Stop 03/31/17 at 13:59; Status DC Sodium Phosphate 30 mmol/Sodium Chloride 260 ml @ 43.333 mls/ hr ONCE ONCE IV Last administered on 03/31/17 12:47; Start 03/31/17 at 12:00; Stop 03/31/17 at 17:59; Status DC Diphenhydramine HCl (Benadryl) 25 mg Q6H PRN PO itching Last administered on 16:59; Start 03/31/17 at 16:00 Urinary Catheter: No Vascular Central Line Catheter: No A/P Problem List: (1) C. 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 ICD Code: B20 - Human immunodeficiency virus [HIV] disease Status: Acute (5) AIDS-associated secretory diarrhea ICD Code: B20 - Human immunodeficiency virus [HIV] disease; A08.4 - Viral intestinal infection, unspecified Status: Acute (6) Colitis ICD Code: K52.9 - Noninfective gastroenteritis and colitis, unspecified Status: Resolved (7) Ascites ICD Code: R18.8 - Other ascites Status: Acute (8) Liver cirrhosis ICD Code: K74.60 - Unspecified cirrhosis of liver Status: Acute (9) Severe protein-calorie malnutrition ICD Code: E43 - Unspecified severe protein-calorie malnutrition Status: Chronic Assessment and Plan C. difficile colitis versus colitis versus diverticulitis versus pancreatitis. She has been treated in the emergency department with hydration and pain control. Stool studies were done ACUTE pancreatitis IMPROVED hypocalcemia DUE TO MALNUTRITION AND PCM, AND DIARRHEA- WILL REPLACE BY PROTOCOL HIV and AIDS POOR COMPLIANCE- FULL BLOWN AIDS CDT ON ORAL VANCO NOW HYPOKALEMIA WILL REPLACE AND RECHECK BANDEMIA-DEFER TO ID 1. abdominal pain / pancreatitis with HIV and AIDS. 2. Rule out C. difficile toxin colitis POSITIVE CDT COLITIS . Rule out other protozoan infections. Will get stool studies. 3. Fevers and chills. 4. Abdominal pain. 5. Positive pancreatitis. Will repeat labs in the morning. 6. Abdominal pain. 7. Poor compliance and very lethargic at the moment. 8. Thrombocytopenia. 9. Anemia. 10. History of CVAs. 11. History of hypertension with what sounds like some poor compliance. 12. History of alcohol abuse. 13. Tobacco abuse. THROMBOCYTOPENIA BANDEMIA SEVERE PCM HYPOPHOS WILL REPLACE AM LABS The patient will be admitted. Will continue to follow her throughout the admission. Will continue her on her home medications if she can tolerate. Continue her on the aspirin, Zithromax. Continue on the Bentyl. Continue on the Diflucan. Continue her on her HIV medications. Continue on Zofran. Will make her a full admission. Will consult case management. C. difficile toxin, CBC, comprehensive metabolic panel, TSH, free T4, hemoglobin A1c, magnesium and phosphorus. Continue on the Vancomycin orally if she can take it. Will monitor her and make sure she is on some Protonix for her stomach. Will continue occupational therapy and physical therapy. Get case management involved. She is a full code We will consult GI as well as infectious disease regarding the abdominal pain and the C. Difficile. She will continue on DVT prophylaxis with SCDs and ANGI-hose. Will monitor her for any other issues that may arise. SCDs and continue on DVT prophylaxis and GI prophylaxis. Will continue her on Protonix and continue her on Lovenox. Will follow her for any other issues that may arise. PALLIATIVE CARE CONSULT REPLACE POTASSIUM AND PHOS RECHECK IN AM POOR PROGNOSIS IS FULL CODE NOT MOVING MUCH YET WANTS TO GO HOME- REFUSED SNF DC TO HOME WITH [facility] Yosef Antoine DO Apr 02, 2017 10:30
[2017-04-02] MEDS ORDERED: TRAM50TA PO (10:37)
[2017-04-02] MEDS ORDERED: LACT PO (10:37)
[2017-04-02] MEDS ORDERED: ABAC1TAB3 PO (10:37)
[2017-04-02] MEDS ORDERED: METO25TA3 PO (10:37)
[2017-04-02] MEDS ORDERED: AZIT600T PO (10:37)
[2017-04-02] MEDS ORDERED: ASPI81CH25 CHEW (10:37)
[2017-04-02] MEDS ORDERED: ZOFR4TAB PO (10:37)
[2017-04-02] MEDS ORDERED: FLUC100T2 PO (10:37)
[2017-04-02] MEDS ORDERED: VANC500I3 PO (10:37)
[2017-04-02] MEDS ORDERED: DICY20TA10 PO (10:37)
[2017-04-02] MEDS ORDERED: DARU1TAB2 PO (10:37)
[2017-04-02] MEDS ORDERED: ATOV750UDC PO (10:37)
--- NOTE | 2017-04-02 10:43 | HHI.FF ---
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 difficile colitis (6) AIDS-associated secretory diarrhea (7) HIV (human immunodeficiency virus infection) (8) Severe protein-calorie malnutrition (9) Colitis (10) Anemia Physical Therapy Order: Evaluate and Treat, Improve ambulation, Strength and gait training Occupational Therapy Order: Evaluate and Treat, Improve ADL, Gross motor coordination, Fine motor coordination Home Health Nursing Order: Medical education Wound care and dressing changes Nursing assessment with vital signs Home Health Aide Order: To Assist In: Bathing and personal care, hand packager and meal prep I have seen patient Epifanio Helm on 04/02/17. My clinical findings support the need for the requested home health care services because: Deconditioned w/ increased weakness Limited ability to care for self Need for psychosocial assistance Impaired cognition/judgement High risk of falls I certify that my clinical findings support that this patient is homebound because: Impaired cognitive ability/safety Unsteady gait/balance Need for psychosocial assistance Yosef Antoine DO Apr 02, 2017 10:42
--- NOTE | 2017-04-02 10:45 | HHI.DS ---
Discharge Summary Admission Date Mar 27, 2017 at 15:11 Discharge Date: Apr 02, 2017 Admitting Diagnosis PANCREATITIS, HYPOCALCEMIC (1) C. 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 ICD Code: B20 - Human immunodeficiency virus [HIV] disease Diagnosis: Principal Status: Acute (5) AIDS-associated secretory diarrhea ICD Code: B20 - Human immunodeficiency virus [HIV] disease; A08.4 - Viral intestinal infection, unspecified Diagnosis: Principal Status: Acute (6) Colitis ICD Code: K52.9 - Noninfective gastroenteritis and colitis, unspecified Diagnosis: Principal Status: Resolved (7) Ascites ICD Code: R18.8 - Other ascites Status: Acute (8) Liver cirrhosis ICD Code: K74.60 - Unspecified cirrhosis of liver Diagnosis: Secondary Status: Acute (9) Severe protein-calorie malnutrition ICD Code: E43 - Unspecified severe protein-calorie malnutrition Diagnosis: Secondary Status: Chronic Procedures NONE Brief History - From Admission This patient came in through the emergency department and was seen by the emergency room physician and was recommended for admission. The patient is a 52-year-old -[place] female with known history of HIV and AIDS who has been having diarrhea for about a month. She was here about two days and had diffuse abdominal cramping associated with nausea and vomiting and abdominal pain. The patient is not a very good historian and is not able to give much information. Everything was obtained from chart review. 9-4 SUSPECT PATIENT HAS FULL BLOWN AIDS AND NOT JUST HIV APPEARS TO HAVE NONCOMPLIANCE STILL HAVING DIARRHEA MORE AWAKE AND ALERT TODAY ANSWERING SOME QUESTIONS DW RN AND PT AND FAMILY WILL GET PALLIATIVE CARE CONSULT 9-5 MORE AWAKE AND ALERT TODAY STILL HAVING DIARRHEA BUT LESS ANSWERING MORE QUESTIONS SEEN BY GI, ID AND PALLIATIVE CARE DW RN AND PT 9-6 COMPLAINS OF DIARRHEA STILL MORE AWAKE AND ALERT HYPOKALEMIA REPLACE BY PROTOCOLS 9-7 patient is still having diarrhea More awake and alert Replace by protocols Needs physical therapy and occupational therapy 9-8 ON ORAL VANCO AND HER AIDS/HIV MEDS POOR COMPLIANCE WITH MEDICATIONS EVEN HERE IN THE HOSPITAL 9-9 PATIENT STATES SHE IS TOLERATING A DIET STOOL IS LESS WATERY WANTS TO GO HOME WILL DC TO HOME TODAY DW RN AND PT AND FAMILY DC ON ORAL VANCO 6 WEEKS CBC/BMP: 04/01/17 0705 04/01/17 0705 Significant Findings Laboratory Tests Test 03/31/17 06:05 04/01/17 07:05 White Blood Count 3.7 TH/MM3 (4.0-11.0) Red Blood Count 2.96 MIL/MM3 (4.00-5.30) 2.71 MIL/MM3 (4.00-5.30) Hemoglobin 9.2 GM/DL (11.6-15.3) 8.7 GM/DL (11.6-15.3) Hematocrit 28.4 % (35.0-46.0) 25.5 % (35.0-46.0) Red Cell Distribution Width 18.3 % (11.6-17.2) 17.3 % (11.6-17.2) Platelet Count 145 TH/MM3 (150-450) Neutrophils (%) (Auto) 77.0 % (16.0-70.0) 84.3 % (16.0-70.0) Eosinophils (%) (Auto) 4.3 % (0.0-4.0) Lymphocytes # (Auto) 0.4 TH/MM3 (1.0-4.8) 0.3 TH/MM3 (1.0-4.8) Ovalocytes 1+ (NORMAL) Crenated Cell 1+ (NORMAL) Blood Urea Nitrogen 3 MG/DL (7-18) 2 MG/DL (7-18) Albumin 1.3 GM/DL (3.4-5.0) 1.4 GM/DL (3.4-5.0) Calcium Level 8.1 MG/DL (8.5-10.1) 8.0 MG/DL (8.5-10.1) Phosphorus Level 2.2 MG/DL (2.5-4.9) 2.1 MG/DL (2.5-4.9) Chloride Level 116 MEQ/L (98-107) 115 MEQ/L (98-107) Carbon Dioxide Level 19.8 MEQ/L (21.0-32.0) Anion Gap 4 MEQ/L (5-15) 4 MEQ/L (5-15) Estimat Glomerular Filtration Rate 84 ML/MIN (>89) 81 ML/MIN (>89) Lymphocytes (%) (Auto) 8.0 % (9.0-44.0) Imaging Last Impressions Abdomen/Pelvis CT 03/27/17 1040 Signed Impressions: Service Date/Time: Monday, March 27, 2017 11:43 - CONCLUSION: 1. Cirrhosis and portal hypertension with ascites and varices identified. Joe Palma MD Chest X-Ray 03/27/17 0000 Signed Impressions: Service Date/Time: Monday, March 27, 2017 15:53 - CONCLUSION: Stable bibasilar patchy opacities. Rad Cueto MD PE at Discharge GENERAL: AWAKE AND ALERT TALKATIVE AND COOPERATIVE- VERY FRAIL APPEARING SKIN: Warm and dry. HEAD: Atraumatic. Normocephalic. EYES: Pupils equal and round. No scleral icterus. No injection or drainage. EOMI ENT: No nasal bleeding or discharge. Mucous membranes pink and moist.TONGUE IS MIDLINE NECK: Trachea midline. No JVD. SUPPLE CARDIOVASCULAR: Regular rate and rhythm. S1, S2 NO S3 OR S4 NO HEAVE OR THRILL OR RUB RESPIRATORY: No accessory muscle use. Clear to auscultation. Breath sounds equal bilaterally. GASTROINTESTINAL: Abdomen soft, non-tender, nondistended. Hepatic and splenic margins not palpable. CACHECTIC MUSCULOSKELETAL: Extremities without clubbing, cyanosis, or edema. No obvious deformities. NEUROLOGICAL: Awake and alert. No obvious cranial nerve deficits. Motor grossly within normal limits. 4 out of 5 muscle strength in the arms and legs. Normal speech. PSYCHIATRIC: More mood and affect; insight and judgment improved. Hospital Course This patient came in through the emergency department and was seen by the emergency room physician and was recommended for admission. The patient is a 52-year-old -[place] female with known history of HIV and AIDS who has been having diarrhea for about a month. She was here about two days and had diffuse abdominal cramping associated with nausea and vomiting and abdominal pain. The patient is not a very good historian and is not able to give much information. Everything was obtained from chart review. 9-4 SUSPECT PATIENT HAS FULL BLOWN AIDS AND NOT JUST HIV APPEARS TO HAVE NONCOMPLIANCE STILL HAVING DIARRHEA MORE AWAKE AND ALERT TODAY ANSWERING SOME QUESTIONS DW RN AND PT AND FAMILY WILL GET PALLIATIVE CARE CONSULT 9-5 MORE AWAKE AND ALERT TODAY STILL HAVING DIARRHEA BUT LESS ANSWERING MORE QUESTIONS SEEN BY GI, ID AND PALLIATIVE CARE DW RN AND PT 9-6 COMPLAINS OF DIARRHEA STILL MORE AWAKE AND ALERT HYPOKALEMIA REPLACE BY PROTOCOLS 9-7 patient is still having diarrhea More awake and alert Replace by protocols Needs physical therapy and occupational therapy 9-8 ON ORAL VANCO AND HER AIDS/HIV MEDS POOR COMPLIANCE WITH MEDICATIONS EVEN HERE IN THE HOSPITAL 9-9 PATIENT STATES SHE IS TOLERATING A DIET STOOL IS LESS WATERY WANTS TO GO HOME WILL DC TO HOME TODAY DW RN AND PT AND FAMILY DC ON ORAL VANCO 6 WEEKS SEEN BY ID AND GI Pt Condition on Discharge: Fair Discharge Disposition: Disch w/ Home Health Serv Discharge Time: > 30 minutes Discharge Instructions DIET: Follow Instructions for: As Tolerated, No Restrictions, Heart Healthy Diet Activities you can perform: Regular-No Restrictions Follow up Referrals: Gastroenterology - 2 Weeks with Sam Stone MD PCP Follow-up - 1 Week PCP Follow-up - 1 Week with Jeremiah Garcia MD Continued Medications: Inldeuwc-Cueoxzhbyklv-Rhdiuybmxx (Triumeq) 600-50-300 Mg Tab 1 TAB PO DAILY for Mgmt Viral Infection, #30 TAB 0 Refills (This prescription has been renewed) Hazardous agent; use appropriate precautions for handling & disposal. Aspirin (Aspirin Low Strength) 81 Mg Chew 81 MG CHEW DAILY for Blood Clot Prevention, #30 EA (This prescription has been renewed) Atovaquone Liq (Mepron Liq) 750 Mg/5 Ml Susp 1500 MG PO DAILY for Infection, #300 ML 0 Refills (This prescription has been renewed) Take with food. Azithromycin (Azithromycin) 600 Mg Tab 1200 MG PO Q7D for prophylaxis for 30 Days, #10 TAB 0 Refills (This prescription has been renewed) Darunavir-Cobicistat (Prezcobix) 800-150 Mg Tab 1 TAB PO DAILY for Mgmt Viral Infection, #30 TAB 0 Refills (This prescription has been renewed) Dicyclomine (Dicyclomine) 20 Mg Tab 20 MG PO TID PRN for abdominal cramping, #90 TAB (This prescription has been renewed) Fluconazole (Fluconazole) 100 Mg Tab 100 MG PO DAILY for Infection, #45 TAB 0 Refills (This prescription has been renewed) Lactobacillus Acidophilus (Acidophilus/l-Sporogenes) 1 Tab Tab 1 TAB PO TID for Diarrhea, #135 TAB (This prescription has been renewed) Metoprolol Tartrate (Metoprolol Tartrate) 25 Mg Tab 12.5 MG PO Q12HR for heart health, #60 TAB (This prescription has been renewed) Ondansetron (Zofran) 4 Mg Tab 4 MG PO Q6HR PRN for NAUSEA OR VOMITING, #60 TAB 0 Refills (This prescription has been renewed) Tramadol (Tramadol) 50 Mg Tab 50 MG PO Q6H PRN for PAIN, #60 TAB 0 Refills (This prescription has been renewed ) Vancomycin Inj (Vancomycin Inj) 500 Mg Inj 500 MG PO Q6HR for Infection for 45 Days, #180 UNIT (This prescription has been renewed) Yosef Antoine DO Apr 02, 2017 10:45
--- NOTE | 2017-04-11 13:08 | PQ ---
Physician Query Response Document PATIENT: ELIZABETH MORALES : 1965 ADMIT DATE: 03/27/2017 3:11 PM DISCH DATE: 04/02/2017 2:45 PM RESPONDING PROVIDER #: [email or web address] QUERY TEXT: Conflicting Documentation Clarification A single mention or documentation of multiple diagnoses for the same clinical presentation appears in the record. Please clarify the diagnosis/diagnoses. Please also document if the condition is: -- Confirmed and current -- Confirmed, treated and resolved -- Ruled out -- Other, please specify The patient's Clinical Indicators include: Gastroenterology Progress noted: MADELINE, Hypokalemia per attending. Attending Progress note: 9-6 COMPLAINS OF DIARRHEA STILL ,MORE AWAKE AND ALERT, HYPOKALEMIA REPLACE BY PROTOCOLS Query created by: Cristy Velazco on 03/31/2017 3:42 PM RESPONSE TEXT: A single mention or documentation of multiple diagnoses for the same clinical presentation appears in the record. Please clarify the diagnosis/diagnoses. Please also document if the condition is: -- Confirmed and current -- Confirmed, treated and resolved -- Ruled out -- Other, please specify The patient's Clinical Indicators include: Gastroenterology Progress noted: MADELINE, Hypokalemia per attending. Attending Progress note: 9-6 COMPLAINS OF DIARRHEA STILL ,MORE AWAKE AND ALERT, HYPOKALEMIA REPLACE B Y PROTOCOLS HAS BEEN CONFIRMED TREATED AND IMPROVED RESOLVED QUERY TEXT: Anemia Type Anemia is documented in the Medical Record. Please specify the cause (includes suspected or probable cause) Such as: -- Due to acute blood loss -- Due to chronic blood loss -- Due to iron deficiency -- Due to postoperative blood loss -- Due to chronic disease -- Other, please specify The patient's Clinical Indicators include: HIV and AIDS POOR COMPLIANCE- FULL BLOWN AIDS bdominal pain / pancreatitis with HIV and AIDS 03/27/17 RBC 3.12, Hgb 10.0, Hct 30.1 03/28/17 RBC 2.64, Hgb 8.4, Hct 25.4 03/29/17 RBC 2.40, Hgb 7.8, Hct 23.0 03/30/17 RBC 2.62, Hgb 8.4, Hct 24.6 03/31/17 RBC 2.96, Hgb 9.2, Hct 28.4 Query created by: Cristy Velazco on 03/31/2017 3:47 PM RESPONSE TEXT: Anemia is documented in the Medical Record. Please specify the cause (includes suspected or probable cause) Such as: -- Due to acute blood loss -- Due to chronic blood loss -- Due to iron deficiency -- Due to postoperative blood loss -- Due to chronic disease -- Other, please specify The patient's Clinical Indicators include: HIV and AIDS POOR COMPLIANCE- FULL BLOWN AIDS bdominal pain / pancreatitis with HIV and AIDS 03/27/17 RBC 3.12, Hgb 10.0, Hct 30.1 03/28/17 RBC 2.64, Hgb 8.4, Hct 25.4 03/29/17 RBC 2.40, Hgb 7.8, Hct 23.0 03/30/17 RBC 2.62, Hgb 8.4, Hct 24.6 03/31/17 RBC 2.96, Hgb 9.2, Hct 28.4 DUE TO ACUTE BLOOD LOSS STATUS POST TRANSFUSIONS aND CHRONIC DISEASE Electronically signed by: Yosef Antoine 04/11/2017 1:04 PM
== END 2017-04-02 14:45 | disposition home health service (06) | DRG 977 ==
LOC: NEPE 09:53 → NEDA 13:55 → OBSVTOIN 15:11 → N07B 17:56
PROVIDERS: ADMIT Hospitalist; ATTEND Hospitalist
DX: B20 Human immunodeficiency virus [HIV] disease (principal); K74.60 Unspecified cirrhosis of liver; E43 Unspecified severe protein-calorie malnutrition; D69.6 Thrombocytopenia, unspecified; K76.6 Portal hypertension; R18.8 Other ascites; K85.90 Acute pancreatitis without necrosis or infection, unspecified; A04.7 Enterocolitis due to Clostridium difficile; D62 Acute posthemorrhagic anemia; N39.0 Urinary tract infection, site not specified; E83.39 Other disorders of phosphorus metabolism; I86.4 Gastric varices; E83.51 Hypocalcemia; E87.6 Hypokalemia; R62.7 Adult failure to thrive; I10 Essential (primary) hypertension; Z72.0 Tobacco use; Z86.73 Personal history of transient ischemic attack (TIA), and cerebral infarction without residual deficits; Z86.010 Personal history of colon polyps; Z91.14 Patient's other noncompliance with medication regimen; Z91.19 Patient's noncompliance with other medical treatment and regimen
CPT/HCPCS: 51702; 71010; 74176; 76937; 80053; 81001; 82140; 82150; 83036; 83690; 83735; 84100; 84439; 84443; 84478; 85007; 85025; 85027; 86355; 86357; 86359; 86360; 86403; 87015; 87040; 87086; 87116; 87147; 87186; 87205; 87206; 87328; 87329; 87493; 87506; 87536; 96365; 96375; J0610; J1170; J1650; J2543; J3475; J3480; J7030; J7050

== ENCOUNTER 2017-04-26 16:23 | Inpatient (IN) | payer MEDICARE, MEDICAID ==
[~2017-04-26] VITALS: Ht 162.6 cm; Wt 47.0 kg
[2017-04-26 16:26] VITALS: BP 136/78; PULSE 100; RESP 18; TEMP 100.4; O2SAT 97
[2017-04-26 16:41] VITALS: BP 127/81; PULSE 93; RESP 20; TEMP 99.2; O2SAT 100
[2017-04-26] MEDS ORDERED: SODIUM CHLOR 0.9% 1000 ML INJ 1,000 ML IV SCH ×2 (17:13)
--- NOTE | 2017-04-26 17:13 | PD ---
HPI Chief Complaint: Medical Clearance Time Seen by Provider: 17:15 Travel History International Travel<30 days: No Contact w/Intl Traveler<30days: No Traveled to known affect area: No History of Present Illness HPI 52-year-old female with history of HIV last CD4 <20 on 03/29 presents for evaluation. She reports over the past month she has a generalized abdominal pain which she describes as an aching pain which is constant, no aggravating factors. She is also had a burning sensation to both feet which is constant, worse when walking. On initial examination she has a low-grade fever. She denies any known fevers at home. She is not having any chills or myalgias. She denies cough, congestion, dysuria, flank pain. She was admitted in early March 27 for C. difficile colitis, discharged on by mouth vancomycin on April 02. She reports that she has been compliant with this medication and the diarrhea has resolved. She is not currently on any anti-retroviral medication. She is a poor historian so most of her pertinent past medical history is obtained from chart. She has no other complaints at this time. PFSH Past Medical History Hx Anticoagulant Therapy: No Arthritis: No Asthma: No Autoimmune Disease: Yes Blood Disorders: Yes Anxiety: No Depression: No Heart Rhythm Problems: No Cancer: No Cardiomyopathy: No Cardiovascular Problems: No High Cholesterol: No Chemotherapy: No Chest Pain: No Congestive Heart Failure: No Cirrhosis: Yes COPD: No Cerebrovascular Accident: Yes (x2) Diabetes: Yes (recently diagnosed) Patient Takes Glucophage: No Diminished Hearing: No Endocrine: No Gastrointestinal Disorders: Yes GERD: No Genitourinary: Yes Headaches: Yes Hiatal Hernia: No Hypertension: No Immune Disorder: Yes (HIV) Implanted Vascular Access Dvce: No Kidney Stones: No Musculoskeletal: Yes Neurologic: Yes Psychiatric: No Reproductive: No Respiratory: No Migraines: Yes Radiation Therapy: No Renal Failure: No Seizures: Yes Sickle Cell Disease: No Sleep Apnea: No Thyroid Disease: No Ulcer: No ?: Not Menopausal: Yes : 2 Para: 0 Miscarriage: 1 : 1 Ectopic : Yes Ovarian Cysts: Yes Past Surgical History Abdominal Surgery: Yes (Expoloratory Lap) AICD: No Arteriovenous Shunt: No Cardiac Surgery: No Section: Yes Ear Surgery: No Endocrine Surgery: No Eye Surgery: No Genitourinary Surgery: No Gynecologic Surgery: Yes Hysterectomy: No Insulin Pump: No Joint Replacement: No Neurologic Surgery: No Oral Surgery: No Pacemaker: No Thoracic Surgery: No Other Surgery: Yes (, ectopic ) Social History Alcohol Use: Yes ([place]) Tobacco Use: No (8 yrs ago) Substance Use: No Allergies-Medications (Allergen,Severity, Reaction): Coded Allergies: No Known Allergies (Verified , 04/26/17) Reported Meds & Prescriptions Reported Meds & Active Scripts Active Vancomycin Inj (Vancomycin HCl) 500 Mg Inj 500 Mg PO Q6HR 45 Days Metoprolol Tartrate 25 Mg Tab 12.5 Mg PO Q12HR Aspirin Low Strength (Aspirin) 81 Mg Chew 81 Mg CHEW DAILY Dicyclomine (Dicyclomine HCl) 20 Mg Tab 20 Mg PO TID PRN Acidophilus/l-Sporogenes (Lactobacillus Acidophilus) 1 Tab Tab 1 Tab PO TID Zofran (Ondansetron HCl) 4 Mg Tab 4 Mg PO Q6HR PRN Tramadol (Tramadol HCl) 50 Mg Tab 50 Mg PO Q6H PRN Mepron Liq (Atovaquone) 750 Mg/5 Ml Susp 1,500 Mg PO DAILY Take with food. Fluconazole 100 Mg Tab 100 Mg PO DAILY Prezcobix (Darunavir-Cobicistat) 800-150 Mg Tab 1 Tab PO DAILY Triumeq (Zktqbrnf-Maikgwbkogng-Esdqnymtay) 600-50-300 Mg Tab 1 Tab PO DAILY Hazardous agent; use appropriate precautions for handling & disposal. Azithromycin 600 Mg Tab 1,200 Mg PO Q7D 30 Days Review of Systems ROS Limitations: Poor Historian Except as stated in HPI: all other systems reviewed are Neg Physical Exam Exam Limitations: Poor Historian Narrative GENERAL: This is a chronically ill-appearing female who is in no acute distress watching TV on initial examination. Low-grade fever, low-grade tachycardia. SKIN: Warm and dry. HEAD: Atraumatic. Normocephalic. EYES: Pupils equal and round. No scleral icterus. No injection or drainage. ENT: No nasal bleeding or discharge. Mucous membranes pink and moist. NECK: Trachea midline. No JVD. CARDIOVASCULAR: Regular rate and rhythm. No murmur appreciated. RESPIRATORY: No accessory muscle use. Clear to auscultation. Breath sounds equal bilaterally. GASTROINTESTINAL: Abdomen soft, generalized tenderness to palpation, mild distention without guarding. MUSCULOSKELETAL: No obvious deformities. No edema. NEUROLOGICAL: Awake and alert. No obvious cranial nerve deficits. Motor grossly within normal limits. Normal speech. PSYCHIATRIC: Appropriate mood and affect; insight and judgment normal. Data Data Last Documented VS Vital Signs Date Time Temp Pulse Resp B/P (MAP) Pulse Ox O2 Delivery O2 Flow Rate FiO2 04/26/17 17:55 100 Room Air 04/26/17 16:41 99.2 93 20 127/81 (96) Orders Orders Complete Blood Count With Diff (04/26/17 17:13) Comprehensive Metabolic Panel (04/26/17 17:13) Lactic Acid Sepsis Protocol (04/26/17 17:13) Lipase (04/26/17:13) Urinalysis - C+S If Indicated (04/26/17:) Influenzae A/B Antigen (04/26/17 17:13) Blood Culture (04/26/17 17:13) Chest, Single Ap (04/26/17 17:13) Blood Glucose (04/26/17:13) Ecg Monitoring (04/26/17 17:13) Iv Access Insert/Monitor (04/26/17 17:13) Oximetry (04/26/17 17:13) Oxygen Administration (04/26/17 17:13) Ct Abd/Pel W Iv Contrast(Rout) (04/26/17 17:13) Sodium Chlor 0.9% 1000 Ml Inj (Ns 1000 M (04/26/17 17:13) Sodium Chlor 0.9% 1000 Ml Inj (Ns 1000 M (04/26/17 17:13) Dextrose 50% In Jackeline (Vial) Inj (D50w (Vi (04/26/17 18:30) Acetaminophen (Tylenol) (04/26/17 19:00) Urine Culture (04/26/17 18:45) Iohexol 350 Inj (Omnipaque 350 Inj) (04/26/17 20:10) Vancomycin Inj (Vancomycin Inj) (04/26/17 21:31) Metronidazole 500 Mg Inj (Flagyl 500 Mg (04/26/17 21:31) Piperacil-Tazo 3.375 Gm Premix (Zosyn 3. (04/26/17 21:45) Admit Order (Ed Use Only) (04/26/17 21:49) Place In Observation (04/26/17 ) Vital Signs (Adult) Q4H (04/26/17 21:49) Activity Oob With Assistance (04/26/17 21:49) Grants Manager / Telemetry .CONTINUOUS (04/26/17 21:49) Diet Regular Basic (04/27/17 Breakfast) Sodium Chloride 0.9% Flush (Ns Flush) (04/26/17 22:00) Sodium Chloride 0.9% Flush (Ns Flush) (04/27/17 09:00) Basic Metabolic Panel (Bmp) (04/27/17 06:00) Complete Blood Count With Diff (04/27/17 06:00) Pt Request For Service (04/26/17 21:49) Case Management Consult (04/26/17 21:49) Naloxone Inj (Narcan Inj) (04/26/17 22:00) Labs Laboratory Tests Test 04/26/17 17:30 04/26/17 18:45 White Blood Count 5.1 TH/MM3 Red Blood Count 2.56 MIL/MM3 Hemoglobin 8.4 GM/DL Hematocrit 24.5 % Mean Corpuscular Volume 95.6 FL Mean Corpuscular Hemoglobin 32.8 PG Mean Corpuscular Hemoglobin Concent 34.3 % Red Cell Distribution Width 17.3 % Platelet Count 168 TH/MM3 Mean Platelet Volume 9.7 FL Neutrophils (%) (Auto) 79.9 % Lymphocytes (%) (Auto) 7.0 % Monocytes (%) (Auto) 11.8 % Eosinophils (%) (Auto) 0.7 % Basophils (%) (Auto) 0.6 % Neutrophils # (Auto) 4.1 TH/MM3 Lymphocytes # (Auto) 0.4 TH/MM3 Monocytes # (Auto) 0.6 TH/MM3 Eosinophils # (Auto) 0.0 TH/MM3 Basophils # (Auto) 0.0 TH/MM3 CBC Comment DIFF FINAL Differential Comment Blood Urea Nitrogen 7 MG/DL Creatinine 0.91 MG/DL Random Glucose 60 MG/DL Total Protein 8.5 GM/DL Albumin 1.8 GM/DL Calcium Level 7.9 MG/DL Alkaline Phosphatase 108 U/L Aspartate Amino Transf (AST/SGOT) 38 U/L Alanine Aminotransferase (ALT/SGPT) 19 U/L Total Bilirubin 0.4 MG/DL Sodium Level 137 MEQ/L Potassium Level 4.0 MEQ/L Chloride Level 107 MEQ/L Carbon Dioxide Level 23.7 MEQ/L Anion Gap 6 MEQ/L Estimat Glomerular Filtration Rate 78 ML/MIN Lactic Acid Level 1.3 mmol/L Lipase 371 U/L Urine Color YELLOW Urine Turbidity CLEAR Urine pH 7.0 Urine Specific [place] 1.008 Urine Protein NEG mg/dL Urine Glucose (UA) NEG mg/dL Urine Ketones NEG mg/dL Urine Occult Blood NEG Urine Nitrite NEG Urine Bilirubin NEG Urine Urobilinogen LESS THAN 2.0 MG/DL Urine Leukocyte Esterase LARGE Urine RBC 1 /hpf Urine WBC 12 /hpf Urine Squamous Epithelial Cells 2 /hpf Urine Transitional Epithelial Cells 1 /hpf Urine Bacteria RARE /hpf Microscopic Urinalysis Comment CATH-CULTURE IND MDM Medical Decision Making Medical Screen Exam Complete: Yes Emergency Medical Condition: Yes Medical Record Reviewed: Yes Differential Diagnosis Colitis, gastroenteritis, diverticulitis, appendicitis, pneumonia, influenza, urinary tract infection Narrative Course This 51-year-old female with CD4 less than 20, HIV, presents with abdominal pain in bilateral foot pain. She has a low-grade fever. She has generalized abdominal tenderness. Plan is for basic lab work, chest x-ray, urinalysis, CT abdomen and pelvis, lactate, blood cultures. Patient was given 2 L of IV fluids , Tylenol. CT abdomen pelvis CONCLUSION: 1. No definite acute abnormality is seen. 2. Suspected changes of cirrhosis and portal hypertension with prominent varices seen in the left upper quadrant. These were present previously. 3. Mild atelectasis or consolidation at the lung bases being worse on the left. 4. Mildly prominent lymph nodes in the left inguinal region. These were present previously and do not appear significantly changed. The patient does endorse a congested feeling in her lungs as well as nasal congestion, sneezing. She also has a urinary tract infection. She will be given broad-spectrum antibiotics and admitted. Diagnosis Primary Impression: Pneumonia Qualified Codes: J18.9 - Pneumonia, unspecified organism Additional Impressions: UTI (urinary tract infection) Qualified Codes: N30.00 - Acute cystitis without hematuria HIV (human immunodeficiency virus infection) Fever Qualified Codes: R50.9 - Fever, unspecified Admitting Information Admitting Physician Requests: Admit Agustin Adamson Apr 26, 2017 17:13
--- NOTE | 2017-04-26 17:54 | RADRPT ---
EXAM DATE/TIME: 04/26/2017 17:27 [facility] COMPARISON: CHEST SINGLE AP, March 27, 2017, 15:53. INDICATIONS : Fever. MEDICAL HISTORY : Cirrhosis. HIV, Body aches. SURGICAL HISTORY : Etopic ENCOUNTER: Initial ACUITY: 2 days PAIN SCORE: 0/10 LOCATION: Bilateral chest FINDINGS: Previously noted patchy bibasilar airspace opacities are nearly resolved. No significant new focal pl eural-parenchymal opacities. Cardiomediastinal contours are within normal limits. Bony thorax is inta ct. CONCLUSION: 1. Near interval resolution of patchy bilateral lower lobe airspace disease. Pako Easton MD on April 26, 2017 at 17:51 Board Certified Radiologist. This report was verified electronically.
[2017-04-26 18:04] LABS: AUTOMATED NEUTROPHIL # 4.1 TH/MM3 (1.8-7.7); BASOPHIL % 0.6 % (0.0-2.0); EOSINOPHIL % 0.7 % (0.0-4.0); HEMATOCRIT 24.5 % (35.0-46.0); HEMO FLAGS DIFF FINAL; LYMPHOCYTE # 0.4 TH/MM3 (1.0-4.8); MEAN CELL VOLUME 95.6 FL (80.0-100.0); MEAN CORPUSCULAR HEMOGLOBIN 32.8 PG (27.0-34.0); MEAN CORPUSCULAR HGB CONC 34.3 % (32.0-36.0); MONO % 11.8 % (0.0-8.0); NEUT % 79.9 % (16.0-70.0); PLATELET COUNT 168 TH/MM3 (150-450); RED BLOOD COUNT 2.56 MIL/MM3 (4.00-5.30); RED CELL DISTRIBUTION WIDTH 17.3 % (11.6-17.2); WHITE BLOOD COUNT 5.1 TH/MM3 (4.0-11.0)
[2017-04-26 18:14] LABS: ALKALINE PHOSPHATASE 108 U/L (45-117); TOTAL BILIRUBIN ADULT 0.4 MG/DL (0.2-1.0)
[2017-04-26 18:22] LABS: ALT (GPT) 19 U/L (10-53); ANION GAP 6 MEQ/L (5-15); AST (GOT) 38 U/L (15-37); BICARBONATE 23.7 MEQ/L (21.0-32.0); BLOOD UREA NITROGEN 7 MG/DL (7-18); CHLORIDE 107 MEQ/L (98-107); GLOMERULAR FILTRATION RATE 78 ML/MIN (>89); SODIUM (NA) 137 MEQ/L (136-145)
[2017-04-26] MEDS ORDERED: DEXTROSE 50% IN WATER 50 ML VIAL(D50) IV PUSH PRN (18:30)
[2017-04-26 19:00] LABS: BACTERIA, URINE RARE /hpf; BLOOD, URINE NEG (NEG); GLUCOSE,URINE NEG (NEG); KETONE, URINE NEG (NEG); NITRITE,URINE NEG (NEG); SQUAMOUS EPITHELIAL CELL URINE 2 /hpf (0-5); TRANSITIONAL EPI CELLS, URINE 1 /hpf; URINE COLOR YELLOW (YELLW/STRAW)
[2017-04-26] MEDS ORDERED: ACETAMINOPHEN 325 MG TAB PO ONE (19:00)
[2017-04-26 19:14] LABS: COMMENT (UR) CATH-CULTURE IND; CULTURE IF INDICATED CATH CULTURE IND
[2017-04-26] MEDS ORDERED: IOHEXOL 350 MG/ML 10 ML VIAL (for RAD DIAG) IVCONTRAST ONE (20:10)
--- NOTE | 2017-04-26 21:24 | RADRPT ---
EXAM DATE/TIME: 04/26/2017 20:08 [facility] COMPARISON: CT ABDOMEN & PELVIS W CONTRAST, March 24, 2017, 14:07. INDICATIONS : Medial abdominal and back pain. IV CONTRAST: 80 cc Omnipaque 350 (iohexol) IV ORAL CONTRAST: No oral contrast ingested. RADIATION DOSE: 4.51 CTDIvol (mGy) MEDICAL HISTORY : Seizures. Cirrhosis. CVA. SURGICAL HISTORY : None. ENCOUNTER: Initial ACUITY: 1 day PAIN SCALE: 6/10 LOCATION: Bilateral medial TECHNIQUE: Volumetric scanning of the abdomen and pelvis was performed. Using automated exposure control and adjustment of the mA and/or kV according to patient size, radiation dose was kept as low as reasonably achievable to obtain optimal diagnostic quality images. DICOM format image data is av ailable electronically for review and comparison. FINDINGS: There is hypertrophy of the left lobe and caudate lobe. There is recanalization of the periumbilical vein and varices seen in the left upper quadrant. The spleen is prominent measuring 2. 5 cm. No focal splenic or hepatic lesions are seen. The pancreas, adrenal glands and kidneys appear grossly normal. There is no hydronephrosis. There is some scattered atherosclerotic calcifications seen. No aneurysm is seen in the arterial system. The bowel is unremarkable. The pelvic structures appear grossly intact. There is a prominent 2.6 cm lymph node seen in the left inguinal region. This was present previously. The bony structures are grossly intact. There is some suspected atelectasis or mild consolidation at the lung bases being wo rse on the left. CONCLUSION: 1. No definite acute abnormality is seen. 2. Suspected changes of cirrhosis and portal hypertension with prominent varices seen in the left upp er quadrant. These were present previously. 3. Mild atelectasis or consolidation at the lung bases being worse on the left. 4. Mildly prominent lymph nodes in the left inguinal region. These were present previously and do not appear significantly changed. Nelson Pinon MD on April 26, 2017 at 21:10 Board Certified Radiologist. This report was verified electronically.
[2017-04-26] MEDS ORDERED: metroNIDAZOLE 500 MG INJ 100 ML IV STA (21:31)
[2017-04-26] MEDS ORDERED: VANCOMYCIN INJ 1,000 MG in SODIUM CHLOR 0.9% 250 ML INJ 250 ML IV STA (21:31)
[2017-04-26] MEDS ORDERED: PIPERACIL-TAZO 3.375 GM PREMIX 50 ML IV ONE (21:45)
[2017-04-26] MEDS ORDERED: NALOXONE HCL 0.4 MG/ML AMP IV PUSH PRN (22:00)
[2017-04-26] MEDS ORDERED: SODIUM CHLORIDE 0.9% FLUSH 10 ML FLUSH IV FLUSH PRN (22:00)
[2017-04-26 22:02] VITALS: BP 122/74; PULSE 86; RESP 18; O2SAT 99
[2017-04-26 23:09] VITALS: BP 119/69; PULSE 88; RESP 18; TEMP 99.3; O2SAT 100
[2017-04-27] VITALS (8 sets, daily range): BP systolic 110–162; BP diastolic 58–77; PULSE 77–98; RESP 18–24; TEMP 98–100; O2SAT 94–100
[2017-04-27] MEDS ORDERED: traMADol HCL 50 MG TAB PO PRN (04:15)
--- NOTE | 2017-04-27 05:09 | HHI.HP ---
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 Escamilla on 04/27/17 at 05:08. The patient reports abdominal pain with diarrhea 1 - 2 times per day for about a week. The patient reports neck pain for about a week and headache. The patient reports shortness of breath when she "reaches up in the air". The patient denies cough but reports sneezing. She denies syncope or fall. Ran out of home medications for about two days ago. The patient is a poor historian. . Review of Systems Except as stated in HPI: all other systems reviewed are Neg Past Family Social History Past Medical History Diabetes Mellitus AIDS CVA x 2 with residual hemiparesis Seizures - a long time ago Denies hypertension, CAD, CHF, COPD, emphysema, asthma, liver problems, kidney problems, DVT, PE, hypothyroidism, or cancer . Past Surgical History Exploratory laparotomy . Reported Medications Reported Meds & Active Scripts Active Vancomycin Inj (Vancomycin HCl) 500 Mg Inj 500 Mg PO Q6HR 45 Days Metoprolol Tartrate 25 Mg Tab 12.5 Mg PO Q12HR Aspirin Low Strength (Aspirin) 81 Mg Chew 81 Mg CHEW DAILY Dicyclomine (Dicyclomine HCl) 20 Mg Tab 20 Mg PO TID PRN Acidophilus/l-Sporogenes (Lactobacillus Acidophilus) 1 Tab Tab 1 Tab PO TID Zofran (Ondansetron HCl) 4 Mg Tab 4 Mg PO Q6HR PRN Tramadol (Tramadol HCl) 50 Mg Tab 50 Mg PO Q6H PRN Mepron Liq (Atovaquone) 750 Mg/5 Ml Susp 1,500 Mg PO DAILY Take with food. Fluconazole 100 Mg Tab 100 Mg PO DAILY Prezcobix (Darunavir-Cobicistat) 800-150 Mg Tab 1 Tab PO DAILY Triumeq (Jmzivjlw-Tquhgefrbcmg-Ahkelsoifh) 600-50-300 Mg Tab 1 Tab PO DAILY Hazardous agent; use appropriate precautions for handling & disposal. Azithromycin 600 Mg Tab 1,200 Mg PO Q7D 30 Days . Allergies: Coded Allergies: No Known Allergies (Verified , 04/26/17) Active Ordered Medications Current Medications Sodium Chloride 1,000 ml @ 1,000 mls/hr Q1H IV Last administered on 04/26/17 17:54; Start 04/26/17 at 17:13; Stop 04/26/17 at 18:12; Status DC Sodium Chloride 1,000 ml @ 1,000 mls/hr Q1H IV Last administered on 04/26/17 17:54; Start 04/26/17 at 17:13; Stop 04/26/17 at 18:12; Status DC Dextrose (D50w (Vial) Inj) 50 ml UNSCH PRN IV PUSH HYPOGLYCEMIA-SEE COMMENTS Last administered on 04/26/17 18:26; Start 04/26/17 at 18:30 Acetaminophen (Tylenol) 650 mg ONCE ONCE PO Last administered on 04/26/17 18: 54; Start 04/26/17 at 19:00; Stop 04/26/17 at 19:01; Status DC Iohexol (Omnipaque 350 Inj) 80 ml STK-MED ONCE IVCONTRAST Last administered on 04/26/17 20:10; Start 04/26/17 at 20:10; Stop 04/26/17 at 20:11; Status DC Vancomycin HCl 1000 mg/Sodium Chloride 250 ml @ 250 mls/hr ONCE STAT IV Last administered on 04/26/17 23:59; Start 04/26/17 at 21:31; Stop 04/26/17 at 22:30 ; Status DC Metronidazole 100 ml @ 100 mls/hr ONCE STAT IV Last administered on 21:31; Start 04/26/17 at 21:31; Stop 04/26/17 at 22:30; Status DC Piperacillin Sod/ Tazobactam Sod 50 ml @ 100 mls/hr ONCE ONCE IV Last administered on 04/26/17 23:02; Start 04/26/17 at 21:45; Stop 04/26/17 at 22:14 ; Status DC Sodium Chloride (NS Flush) 2 ml UNSCH PRN IV FLUSH FLUSH AFTER USING IV ACCESS ; Start 04/26/17 at 22:00 Sodium Chloride (NS Flush) 2 ml BID IV FLUSH ; Start 04/27/17 at 09:00 Naloxone HCl (Narcan Inj) 0.4 mg UNSCH PRN IV PUSH SEE LABEL COMMENTS; Start 04/26/17 at 22:00 Tramadol HCl (Ultram) 50 mg Q12H PRN PO PAIN >5 Last administered on 04/27/17t 04:10; Start 04/27/17 at 04:15 . Family History denies any family history of heart disease, diabetes, or cancer . Social History Tobacco: smoked for about 30 years, quit 9 months ago Alcohol: occasionally drinks a beer Illicit drugs: denies . Physical Exam Vital Signs Vital Signs Date Time Temp Pulse Resp B/P (MAP) Pulse Ox O2 Delivery O2 Flow Rate FiO2 04/27/17 03:55 99.4 98 20 162/77 (105) 97 04/26/17 23:09 99.3 88 18 119/69 (86) 100 04/26/17 22:02 86 18 122/74 (90) 99 Room Air 04/26/17 17:55 100 Room Air 04/26/17 16:41 99.2 93 20 127/81 (96) 100 Room Air 04/26/17 16:26 100.4 100 18 136/78 (97) 97 Room Air Physical Exam GENERAL: This is a cachectic, chronically-ill appearing female patient, with multiple complaints. SKIN: No rashes. Skin is very warm to touch. Tactile fever. HEAD: Atraumatic. Normocephalic. EYES: No scleral icterus. No injection or drainage. ENT: Nose without bleeding, purulent drainage. NECK: Trachea midline. No JVD. CARDIOVASCULAR: Regular rate and rhythm without murmurs, gallops, or rubs. RESPIRATORY: Clear to auscultation. Breath sounds equal bilaterally. No wheezes , rales, or rhonchi. GASTROINTESTINAL: Abdomen soft, left upper quadrant exquisitely tender, distended. MUSCULOSKELETAL: Extremities without clubbing, cyanosis, or edema. No calf tenderness. NEUROLOGICAL: Awake and alert. Motor and sensory grossly within normal limits. Normal speech. . Laboratory Laboratory Tests Test 04/26/17 17:30 04/26/17 18:45 White Blood Count 5.1 Red Blood Count 2.56 Hemoglobin 8.4 Hematocrit 24.5 Mean Corpuscular Volume 95.6 Mean Corpuscular Hemoglobin 32.8 Mean Corpuscular Hemoglobin Concent 34.3 Red Cell Distribution Width 17.3 Platelet Count 168 Mean Platelet Volume 9.7 Neutrophils (%) (Auto) 79.9 Lymphocytes (%) (Auto) 7.0 Monocytes (%) (Auto) 11.8 Eosinophils (%) (Auto) 0.7 Basophils (%) (Auto) 0.6 Neutrophils # (Auto) 4.1 Lymphocytes # (Auto) 0.4 Monocytes # (Auto) 0.6 Eosinophils # (Auto) 0.0 Basophils # (Auto) 0.0 CBC Comment DIFF FINAL Differential Comment Blood Urea Nitrogen 7 Creatinine 0.91 Random Glucose 60 Total Protein 8.5 Albumin 1.8 Calcium Level 7.9 Alkaline Phosphatase 108 Aspartate Amino Transf (AST/SGOT) 38 Alanine Aminotransferase (ALT/SGPT) 19 Total Bilirubin 0.4 Sodium Level 137 Potassium Level 4.0 Chloride Level 107 Carbon Dioxide Level 23.7 Anion Gap 6 Estimat Glomerular Filtration Rate 78 Lactic Acid Level 1.3 Lipase 371 Urine Color YELLOW Urine Turbidity CLEAR Urine pH 7.0 Urine Specific Downs 1.008 Urine Protein NEG Urine Glucose (UA) NEG Urine Ketones NEG Urine Occult Blood NEG Urine Nitrite NEG Urine Bilirubin NEG Urine Urobilinogen LESS THAN 2.0 Urine Leukocyte Esterase LARGE Urine RBC 1 Urine WBC 12 Urine Squamous Epithelial Cells 2 Urine Transitional Epithelial Cells 1 Urine Bacteria RARE Microscopic Urinalysis Comment CATH-CULTURE IND Date/Time Source Procedure Growth Status 04/26/17 17:30 Blood Peripheral Aerobic Blood Culture Pending Received 04/26/17 17:30 Blood Peripheral Anaerobic Blood Culture Pending Received 04/26/17 17:45 Nasal Aspirate Influenza Types A,B Antigen (FLY) - Final NEGATIVE FOR FLU A AND B ANTIGEN.... Complete 04/26/17 18:45 Urine Catheterized Urine Urine Culture Pending Received Result Diagram: 04/26/17 1730 04/26/17 1730 Imaging Last Impressions Chest X-Ray 04/26/17 1713 Signed Impressions: Service Date/Time: Wednesday, April 26, 2017 17:27 - CONCLUSION: 1. Near interval resolution of patchy bilateral lower lobe airspace disease. Pako Easton MD Abdomen/Pelvis CT 04/26/17 7618 Signed Impressions: Service Date/Time: Wednesday, April 26, 2017 20:08 - CONCLUSION: 1. No definite acute abnormality is seen. 2. Suspected changes of cirrhosis and portal hypertension with prominent varices seen in the left upper quadrant. These were present previously. 3. Mild atelectasis or consolidation at the lung bases being worse on the left. 4. Mildly prominent lymph nodes in the left inguinal region. These were present previously and do not appear significantly changed. Nelson Pinon MD . Caprini VTE Risk Assessment Caprini VTE Risk Assessment: Mod/High Risk (score >= 2) Caprini Risk Assessment Model Point Value = 1 Point Value = 2 Point Value = 3 Point Value = 5 Age 41-60 Minor surgery BMI > 25 kg/m2 Swollen legs Varicose veins or History of unexplained or recurrent spontaneous Oral contraceptives or hormone replacement Sepsis (< 1 month) Serious lung disease, including pneumonia (< 1 month) Abnormal pulmonary function Acute myocardial infarction Congestive heart failure (< 1 month) History of inflammatory bowel disease Medical patient at bed rest Age 61-74 Arthroscopic surgery Major open surgery (> 45 min) Laparoscopic surgery (> 45 min) Malignancy Confined to bed (> 72 hours) Immobilizing plaster cast Central venous access Age >= 75 History of VTE Family history of VTE Factor V Leiden Prothrombin [id number] Lupus anticoagulant Anticardiolipin antibodies Elevated serum homocysteine Heparin-induced thrombocytopenia Other congenital or acquired thrombophilia Stroke (< 1 month) Elective arthroplasty Hip, pelvis, or leg fracture Acute spinal cord injury (< 1 month) Prophylaxis Regimen Total Risk Factor Score Risk Level Prophylaxis Regimen 0-1 Low Early ambulation 2 Moderate Order ONE of the following: *Sequential Compression Device (SCD) *Heparin 5000 units SQ BID 3-4 Higher Order ONE of the following medications: *Heparin 5000 units SQ TID *Enoxaparin/Lovenox 40 mg SQ daily (WT < 150 kg, CrCl > 30 mL/min) *Enoxaparin/Lovenox 30 mg SQ daily (WT < 150 kg, CrCl > 10-29 mL/min) *Enoxaparin/Lovenox 30 mg SQ BID (WT < 150 kg, CrCl > 30 mL/min) AND/OR *Sequential Compression Device (SCD) 5 or more Highest Order ONE of the following medications: *Heparin 5000 units SQ TID (Preferred with Epidurals) *Enoxaparin/Lovenox 40 mg SQ daily (WT < 150 kg, CrCl > 30 mL/min) *Enoxaparin/Lovenox 30 mg SQ daily (WT < 150 kg, CrCl > 10-29 mL/min) *Enoxaparin/Lovenox 30 mg SQ BID (WT < 150 kg, CrCl > 30 mL/min) AND *Sequential Compression Device (SCD) Assessment and Plan Problem List: (1) Abdominal pain ICD Code: R10.9 - Unspecified abdominal pain Status: Acute (2) Abdominal distension ICD Code: R14.0 - Abdominal distension (gaseous) Status: Acute (3) Fever ICD Code: R50.9 - Fever, unspecified Status: Acute (4) 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 Helm is a 52 y/o female with AIDS who has been noncompliant with her medications and who presented to ED with multiple complaints including fever 100.4, abdominal pain and diarrhea with history of recent c. difficile colitis. Abdominal pain and fever; possible SBP vs UTI vs C. Diff - UA indicates possible infection; culture pending; await results and adjust therapy if needed - c difficile infection at the beginning of March - Check abdominal ultrasound to evaluate for ascites - Antibiotics: Rocephin and Flagyl IV for possible UTI and SBP; Vancomycin p.o. for c. diff - Tramadol 50 mg q12h PRN pain AIDS - Hold HIV medications for now due to acute illness - consult infectious disease - continue home azithromycin and Diflucan prophylaxis for AIDS Anemia - stable compared to prior labs - Hbg 8.4 on admission - repeat CBC in a.m. and follow results/trends Weakness - PT consultation to prevent further debility DVT prophylaxis - Lovenox 40 mg subq q24h This note was transcribed by ronna [Rachael Obando]. I, Dr. Abner Escamilla personally performed the history, physical exam, and medical decision making; and confirmed the accuracy of the information in the transcribed note. Authenticated by Dr. Abner Escamilla on 04/27/17 at 05:08. Discussed Condition With Patient, RN, and ER physician . Problem Qualifiers (1) Fever: Qualified Codes: R50.9 - Fever, unspecified (2) Abdominal pain: Qualified Codes: R10.84 - Generalized abdominal pain Rachael Obando Apr 27, 2017 05:08 Abner Escamilla MD May 03, 2017 23:16
[2017-04-27] MEDS ORDERED: DICYCLOMINE HCL 20 MG TAB PO PRN (05:30)
[2017-04-27] MEDS ORDERED: PILL SPLITTER OTHER PRN (05:45)
[2017-04-27] MEDS ORDERED: ONDANSETRON ODT 4 MG TAB PO PRN (05:45)
[2017-04-27] MEDS ORDERED: VANCOMYCIN 500 MG VIAL IRRIGATION SCH (06:00)
[2017-04-27] MEDS: metroNIDAZOLE 500 MG INJ 100 ML IV SCH ×3 (06:04→18:03)
[2017-04-27 08:37] LABS: AUTOMATED NEUTROPHIL # 5.2 TH/MM3 (1.8-7.7); BASOPHIL % 0.4 % (0.0-2.0); EOSINOPHIL % 0.5 % (0.0-4.0); HEMATOCRIT 22.5 % (35.0-46.0); HEMO FLAGS DIFF FINAL; LYMPH % 5.3 % (9.0-44.0); LYMPHOCYTE # 0.3 TH/MM3 (1.0-4.8); MEAN CELL VOLUME 97.4 FL (80.0-100.0); MEAN CORPUSCULAR HEMOGLOBIN 32.2 PG (27.0-34.0); MEAN CORPUSCULAR HGB CONC 33.1 % (32.0-36.0); NEUT % 84.8 % (16.0-70.0); PLATELET COUNT 141 TH/MM3 (150-450); RED BLOOD COUNT 2.31 MIL/MM3 (4.00-5.30); RED CELL DISTRIBUTION WIDTH 17.4 % (11.6-17.2); WHITE BLOOD COUNT 6.1 TH/MM3 (4.0-11.0)
[2017-04-27 08:52] LABS: BICARBONATE 20.5 MEQ/L (21.0-32.0); POTASSIUM 3.6 MEQ/L (3.5-5.1)
[2017-04-27] MEDS ORDERED: AZITHROMYCIN 600 MG TAB PO SCH (09:00)
[2017-04-27] MEDS ORDERED: cefTRIAXone INJ 1,000 MG in SODIUM CHLORIDE 0.9% INJ 100 ML IV SCH (09:00)
[2017-04-27 09:15] LABS: CALCIUM-PROTEIN CORRECTED 7.2 MG/DL (8.5-10.1)
[2017-04-27] MEDS: CALCIUM CARBONATE 500 MG CHEWABLE TAB CHEW SCH ×2 (09:46→22:19)
[2017-04-27] MEDS: LACTOBACILLUS ACIDOPHILUS TAB PO SCH ×3 (09:46→18:02)
[2017-04-27] MEDS: FLUCONAZOLE 100 MG TAB PO SCH (09:46)
[2017-04-27] MEDS: ASPIRIN 81 MG CHEW TAB CHEW SCH (09:46)
[2017-04-27] MEDS: SODIUM CHLORIDE 0.9% FLUSH 10 ML FLUSH IV FLUSH SCH ×2 (09:47→22:25)
[2017-04-27] MEDS: METOPROLOL TARTRATE 25 MG TAB PO SCH ×2 (09:47→22:20)
[2017-04-27] MEDS ORDERED: CALCIUM GLUCONATE INJ 1 GM in DEXTROSE 5% IN WATER 100ML INJ 100 ML IV ONE ×2 (10:00)
--- NOTE | 2017-04-27 10:24 | RADRPT ---
EXAM DATE/TIME: 04/27/2017 09:03 [facility] COMPARISON: CT ABDOMEN & PELVIS W CONTRAST, April 26, 2017, 20:08. EXTERNAL COMPARISON : [facility], US KIDNEY, BILATERAL, December 31, 2016 INDICATIONS : Abdominal pain. Ascites. MEDICAL HISTORY : Cirrhosis. HIV. Seizures. Cerebrovascular accident. Liver disease. Ectopic . Substance abuse . SURGICAL HISTORY : section. Exploratory laparatomy. ENCOUNTER: Subsequent ACUITY: 1 day PAIN SCORE: 4/10 LOCATION: Abdomen. MEASUREMENTS: LIVER: 11.0 cm length COMMON DUCT: 5 mm RIGHT KIDNEY: 10.0 x 5.6 x 5.9 cm LEFT KIDNEY: 10.3 x 5.6 x 5.9 cm SPLEEN: 12.1 cm length AORTA: 1.5cm maximal FINDINGS: There is a nodular contour to the liver which may reflect cirrhosis. There is reversal of flow in the portal vein characteristic of portal hypertension. There may be partial thrombosis as well. Mild asc ites is present. Sludge is present in the gallbladder without stones. The right kidney is unremarkabl e. Varices are identified in the splenic hilum. CONCLUSION: 1. Findings of cirrhosis and portal hypertension. 2. Ascites Shay Stephens MD on April 27, 2017 at 10:20 Board Certified Radiologist. This report was verified electronically.
[2017-04-27] MEDS: ATOVAQUONE SUSP 750 MG/5 ML UDC PO SCH (11:28)
[2017-04-27] MEDS: traMADol HCL 50 MG TAB PO PRN ×2 (11:31→22:34)
[2017-04-27] MEDS ORDERED: NS IRRIGATION SCH ×2 (12:00)
[2017-04-27] MEDS ORDERED: VANCOMYCIN IRRIGATION SCH ×2 (12:00)
--- NOTE | 2017-04-27 13:50 | HHI.PR ---
Subjective Remarks Follow-up for abdominal pain, diarrhea, fever. The patient reports her abdominal pain is still present but a little better today. She has been having more abdominal swelling lately. She last had a paracentesis about a month ago. She denies any dysuria. She continues to have loose diarrhea, about once per day, still on oral antibiotics for C. difficile. Objective Vitals Vital Signs Date Time Temp Pulse Resp B/P (MAP) Pulse Ox O2 Delivery O2 Flow Rate FiO2 04/27/17 12:41 99.0 83 21 131/62 (85) 100 04/27/17 10:33 98.7 79 21 124/60 (81) 04/27/17 03:55 99.4 98 20 162/77 (105) 97 04/27/17 00:26 83 04/26/17 23:09 99.3 88 18 119/69 (86) 100 04/26/17 22:02 86 18 122/74 (90) 99 Room Air 04/26/17 17:55 100 Room Air 04/26/17 16:41 99.2 93 20 127/81 (96) 100 Room Air 04/26/17 16:26 100.4 100 18 136/78 (97) 97 Room Air I/O 04/26/17 04/26/17 04/26/17 04/27/17 04/27/17 04/27/17 07:00 15:00 23:00 07:00 15:00 23:00 Intake Total 100 ml 300 ml 100 ml Balance 100 ml 300 ml 100 ml Intake IV Total 100 ml 300 ml 100 ml # Voids 3 # Bowel Movements 1 Result Diagram: 04/27/17 0743 04/27/17 0743 Imaging Last Impressions Abdomen Ultrasound 04/27/17 0000 Signed Impressions: Service Date/Time: Thursday, April 27, 2017 09:03 - CONCLUSION: 1. Findings of cirrhosis and portal hypertension. 2. Ascites Shay Stephens MD Chest X-Ray 04/26/171712 Signed Impressions: Service Date/Time: Wednesday, April 26, 2017 17:27 - CONCLUSION: 1. Near interval resolution of patchy bilateral lower lobe airspace disease. Pako Easton MD Abdomen/Pelvis CT [id number]/26/[id number] Signed Impressions: Service Date/Time: Wednesday, April 26, 2017 20:08 - CONCLUSION: 1. No definite acute abnormality is seen. 2. Suspected changes of cirrhosis and portal hypertension with prominent varices seen in the left upper quadrant. These were present previously. 3. Mild atelectasis or consolidation at the lung bases being worse on the left. 4. Mildly prominent lymph nodes in the left inguinal region. These were present previously and do not appear significantly changed. Nelson Pinon MD Objective Remarks GENERAL: Well-developed thin, cachectic, chronically ill-appearing female. In no acute distress. SKIN: Warm and dry. No lesions noted. HEENT: Normocephalic. Pupils equal and round. Mucous membranes pink and moist. CARDIOVASCULAR: Regular rate and rhythm. No murmur appreciated. RESPIRATORY: No accessory muscle use. Clear to auscultation. Breath sounds equal bilaterally. GASTROINTESTINAL: Abdomen tense, mild to moderate distention, left upper quadrant TTP. MUSCULOSKELETAL: No obvious deformities. No clubbing or cyanosis. No edema. NEUROLOGICAL: Awake and alert. No focal neurological deficits. Moves upper and lower extremities spontaneously. Normal speech. PSYCHIATRIC: Appropriate mood and affect; insight and judgment normal. 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 Helm is a 52 y/o female with AIDS who has been noncompliant with her medications and who presented to ED with multiple complaints including fever 100.4, abdominal pain and diarrhea with history of recent c. difficile colitis. Sepsis: Temperature 100.4. Tachycardia at admission. Potential source of SBP, C. difficile, UTI. - Blood cultures with NGTD, follow. - ID consulted Abdominal pain and fever; possible SBP vs UTI vs C. Diff - Antibiotics: Rocephin and Flagyl IV for possible UTI and SBP; Vancomycin p.o. for c. diff - Tramadol 50 mg q12h PRN pain Diarrhea: Reports 1-2 loose stools daily. Patient did have mycobacteria in her stool back in January, but stool studies and AFB culture from 03/27 were negative. 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 - Continue treatment for C. difficile with oral vancomycin - Continue Lactinex UTI: UA borderline but sent for culture. Patient denies any urinary symptoms. Urine culture preliminarily growing gram-negative rods. - Continue empiric IV Rocephin and follow-up final urine culture results. - ID on board Acute ascites with chronic cirrhosis: Abdominal ultrasound showed ascites. Abdomen tense, distended on exam. - Diagnostic and therapeutic paracentesis Hypocalcemia: Moderate. Protein corrected calcium 7.2. - Give IV calcium and continue oral supplementation HIV/AIDS - Holding HIV medications for now due to acute illness - consult infectious disease - continue home azithromycin and Diflucan prophylaxis Normocytic Anemia: Of chronic disease. Hemoglobin did drop from 8.4 to 7.5 overnight, dilutional? - repeat CBC in a.m. and follow results/trends Weakness: Secondary to the above. - PT consulted DVT prophylaxis: SCDs Discharge Planning Pending further clinical improvement Problem Qualifiers (1) Abdominal pain: Qualified Codes: R10.84 - Generalized abdominal pain (2) Fever: Qualified Codes: R50.9 - Fever, unspecified Gutierrez Maurice Apr 27, 2017 13:50
--- NOTE | 2017-04-27 14:14 | PD.ID.CON ---
History of Present Illness Service ID Consult Requested By PAULA Bates Reason for Consult Evaluation and Mment of fever in pt with HIV/AIDS. Primary Care Physician Jeremiah Garcia MD Diagnoses: History of Present Illness is a 52 yo AAF with advanced HIV/AIDS (on HAART: ABC+ epivir+ dolutegravir and darunavir+ cobstat), followed by Dr Teague in outreach clinic. Her CD4 in October was < 20. She now presents with fever,recurrent diarrhea, she has had several episodes of hypervirulent C.diff 027 +. She also has AFB+ stool on her last admission in January. She present with ongoing diarrhea for a month, with crampy pain off and on, approx 2 times a week. She denies any dysuria. On admission UA done which is growing GNR doubt if UTI. In view of Cdiff would like to avoid antibiotics. ID consulted for evaluation and Mment of fever, diarrhea in pt with AFB in stool and Cdiff positive diarrhea. Review of Systems ROS Limitations: Poor Historian Constitutional: COMPLAINS OF: Fever Past Family Social History Allergies: Coded Allergies: No Known Allergies (Verified , 04/26/17) Past Medical History HIV/AIDS History of recent C. difficile infection Cirrhosis with ascites History of GI bleeding and gastritis History of stroke 2 Pancreatitis. Past Surgical History Reported Medications I attest that I obtained, reviewed or updated home med list and current med list (name, dose, freq and route of administration of meds). Reported Meds & Active Scripts Active Vancomycin Inj (Vancomycin HCl) 500 Mg Inj 500 Mg PO Q6HR 45 Days Metoprolol Tartrate 25 Mg Tab 12.5 Mg PO Q12HR Aspirin Low Strength (Aspirin) 81 Mg Chew 81 Mg CHEW DAILY Dicyclomine (Dicyclomine HCl) 20 Mg Tab 20 Mg PO TID PRN Acidophilus/l-Sporogenes (Lactobacillus Acidophilus) 1 Tab Tab 1 Tab PO TID Zofran (Ondansetron HCl) 4 Mg Tab 4 Mg PO Q6HR PRN Tramadol (Tramadol HCl) 50 Mg Tab 50 Mg PO Q6H PRN Mepron Liq (Atovaquone) 750 Mg/5 Ml Susp 1,500 Mg PO DAILY Take with food. Fluconazole 100 Mg Tab 100 Mg PO DAILY Prezcobix (Darunavir-Cobicistat) 800-150 Mg Tab 1 Tab PO DAILY Triumeq (Mhuwckou-Qadiwppbptey-Zlnsabkkwr) 600-50-300 Mg Tab 1 Tab PO DAILY Hazardous agent; use appropriate precautions for handling & disposal. Azithromycin 600 Mg Tab 1,200 Mg PO Q7D 30 Days Active Ordered Medications Current Medications Medications (Trade) Dose Ordered Sig/Sue Route Start Time Stop Time Status Last Admin (D50w (Vial) Inj) 50 ml UNSCH PRN IV PUSH 04/26/17 18:30 04/26/17 18:26 (NS Flush) 2 ml UNSCH PRN IV FLUSH 04/26/17 22:00 (NS Flush) 2 ml BID IV FLUSH 04/27/17 09:00 04/27/17 09:47 (Narcan Inj) 0.4 mg UNSCH PRN IV PUSH 04/26/17 22:00 (Aspirin Chew) 81 mg DAILY CHEW 04/27/17 09:00 04/27/17 09:46 (Zithromax) 1,200 mg Q7D PO 04/27/17 09:00 04/27/17 11:30 (Bentyl) 20 mg TID PRN PO 04/27/17 05:30 (Diflucan) 100 mg DAILY PO 04/27/17 09:00 04/27/17 09:46 (Lactinex) 1 tab TID PO 04/27/17 09:00 04/27/17 18:02 (Lopressor) 12.5 mg Q12HR PO 04/27/17 09:00 04/27/17 09:47 (Ultram) 50 mg Q6H PRN PO 04/27/17 05:30 04/27/17 11:31 (Zofran Odt) 4 mg Q6H PRN PO 04/27/17 05:45 (Mepron Liq) 1,500 mg DAILY PO 04/27/17 09:00 04/27/17 11:28 Ceftriaxone Sodium 1000 mg/ Sodium Chloride 100 ml @ 200 mls/hr Q24H IV 04/27/17 09:00 04/27/17 09:55 Metronidazole 100 ml @ 100 mls/hr Q6H IV 04/27/17 06:00 04/27/17 18:03 (Pill Splitter) 1 ea UNSCH PRN OTHER 04/27/17 05:45 (Tums Chew) 500 mg Q12HR CHEW 04/27/17 09:00 04/27/17 09:46 (VANCOMYCIN for oral use only) 500 mg QID PO 04/27/17 18:00 04/27/17 18:03 Family History reviewed and NC to current ID problems. Mother of cirrhosis of the liver Social History Patient denies any alcohol, tobacco, or drug use Used to drink ETOH Physical Exam Vital Signs Vital Signs Date Time Temp Pulse Resp B/P (MAP) Pulse Ox O2 Delivery O2 Flow Rate FiO2 04/27/17 12:41 99.0 83 21 131/62 (85) 100 04/27/17 10:33 98.7 79 21 124/60 (81) 04/27/17 03:55 99.4 98 20 162/77 (105) 97 04/27/17 00:26 83 04/26/17 23:09 99.3 88 18 119/69 (86) 100 04/26/17 22:02 86 18 122/74 (90) 99 Room Air 04/26/17 17:55 100 Room Air 04/26/17 16:41 99.2 93 20 127/81 (96) 100 Room Air 04/26/17 16:26 100.4 100 18 136/78 (97) 97 Room Air Physical Exam GENERAL: Thin built poorly nourished patient, in no apparent distress. SKIN: No rashes, ecchymoses or lesions. Cool and dry. HEAD: Atraumatic. Normocephalic. No temporal or scalp tenderness. EYES: Pupils equal round and reactive. Extraocular motions intact. No scleral icterus. No injection or drainage. ENT: Nose without bleeding, purulent drainage or septal hematoma. Throat without erythema, tonsillar hypertrophy or exudate. Uvula midline. Airway patent. NECK: Trachea midline. No JVD or lymphadenopathy. Supple, nontender, no meningeal signs. CARDIOVASCULAR: Regular rate and rhythm without murmurs, gallops, or rubs. RESPIRATORY: Clear to auscultation. Breath sounds equal bilaterally. No wheezes , rales, or rhonchi. GASTROINTESTINAL: Abdomen soft, non-tender, nondistended. No hepato-splenomegaly , or palpable masses. No guarding. MUSCULOSKELETAL: Extremities without clubbing, cyanosis, or edema. No joint tenderness, effusion, or edema noted. No calf tenderness. Negative Homans sign bilaterally. NEUROLOGICAL: Awake and alert. Cranial nerves II through XII intact. Motor and sensory grossly within normal limits. Five out of 5 muscle strength in all muscle groups. Normal speech. Psych cooperative IV line sites with no e.o infection. Laboratory Laboratory Tests Test 04/26/17 17:30 04/26/17 18:45 04/27/17 07:43 White Blood Count 5.1 6.1 Red Blood Count 2.56 2.31 Hemoglobin 8.4 7.5 Hematocrit 24.5 22.5 Mean Corpuscular Volume 95.6 97.4 Mean Corpuscular Hemoglobin 32.8 32.2 Mean Corpuscular Hemoglobin Concent 34.3 33.1 Red Cell Distribution Width 17.3 17.4 Platelet Count 168 141 Mean Platelet Volume 9.7 9.0 Neutrophils (%) (Auto) 79.9 84.8 Lymphocytes (%) (Auto) 7.0 5.3 Monocytes (%) (Auto) 11.8 9.0 Eosinophils (%) (Auto) 0.7 0.5 Basophils (%) (Auto) 0.6 0.4 Neutrophils # (Auto) 4.1 5.2 Lymphocytes # (Auto) 0.4 0.3 Monocytes # (Auto) 0.6 0.6 Eosinophils # (Auto) 0.0 0.0 Basophils # (Auto) 0.0 0.0 CBC Comment DIFF FINAL DIFF FINAL Differential Comment Blood Urea Nitrogen 7 6 Creatinine 0.91 0.96 Random Glucose 60 105 Total Protein 8.5 7.4 Albumin 1.8 Calcium Level 7.9 7.3 Alkaline Phosphatase 108 Aspartate Amino Transf (AST/SGOT) 38 Alanine Aminotransferase (ALT/SGPT) 19 Total Bilirubin 0.4 Sodium Level 137 139 Potassium Level 4.0 3.6 Chloride Level 107 111 Carbon Dioxide Level 23.7 20.5 Anion Gap 6 8 Estimat Glomerular Filtration Rate 78 74 Lactic Acid Level 1.3 Lipase 371 Urine Color YELLOW Urine Turbidity CLEAR Urine pH 7.0 Urine Specific [place] 1.008 Urine Protein NEG Urine Glucose (UA) NEG Urine Ketones NEG Urine Occult Blood NEG Urine Nitrite NEG Urine Bilirubin NEG Urine Urobilinogen LESS THAN 2.0 Urine Leukocyte Esterase LARGE Urine RBC 1 Urine WBC 12 Urine Squamous Epithelial Cells 2 Urine Transitional Epithelial Cells 1 Urine Bacteria RARE Microscopic Urinalysis Comment CATH-CULTURE IND Protein Corrected Calcium 7.2 Date/Time Source Procedure Growth Status 04/26/17 17:30 Blood Peripheral Aerobic Blood Culture - Preliminary NO GROWTH IN 1 DAY Resulted 04/26/17 17:30 Blood Peripheral Anaerobic Blood Culture - Preliminary NO GROWTH IN 1 DAY Resulted 04/26/17 17:45 Nasal Aspirate Influenza Types A,B Antigen (FLY) - Final NEGATIVE FOR FLU A AND B ANTIGEN.... Complete 04/26/17 18:45 Urine Catheterized Urine Urine Culture - Preliminary Gram Negative Matteo Resulted Result Diagram: 04/27/17 0743 04/27/17 0743 Imaging Last Impressions Abdomen Ultrasound 04/27/17 0000 Signed Impressions: Service Date/Time: Thursday, April 27, 2017 13:46 - CONCLUSION: 1. No significant ascites demonstrated. Pako Easton MD Chest X-Ray 04/26/171712 Signed Impressions: Service Date/Time: Wednesday, April 26, 2017 17:27 - CONCLUSION: 1. Near interval resolution of patchy bilateral lower lobe airspace disease. Pako Easton MD Abdomen/Pelvis CT 04/26/171712 Signed Impressions: Service Date/Time: Wednesday, April 26, 2017 20:08 - CONCLUSION: 1. No definite acute abnormality is seen. 2. Suspected changes of cirrhosis and portal hypertension with prominent varices seen in the left upper quadrant. These were present previously. 3. Mild atelectasis or consolidation at the lung bases being worse on the left. 4. Mildly prominent lymph nodes in the left inguinal region. These were present previously and do not appear significantly changed. Nelson Pinon MD Assessment and Plan Assessment and Plan Diarrhea: Cdiff and AFB positive stool. Fever low grade on admission. Pneumonia: faint infiltrates improved. HIV AIDS CD4< 20. Advanced disease. Recs Continue HAART per Continue Azithro for MARLA prophylaxis 1200 mg per week. Continue Atovaquone for PCP per . (No sulfa allergy noted on Atovaquone for PCP instead of Bactrim) Continue Diflucan DC Ceftriaxone IV (Patient has asymptomatic bacteriuria) Continue oral vanco decrease dose to 125 mg po q6hrs (higher dose not needed) Follow cultures. Follow clinically. Patient will have diarrhea due to Cdiff and AFB. This is a difficult situation as patient will be on Anti-retrovirals, antibiotics and also stool AFB positive. Antiretrovirals and antibiotics can ppt cdiff. Consider palliative care to address goals of therapy. Discussed Condition With Full code for now. Will consult palliative care to address goals of therapy and other documents such as POA, advance directive etc. Lynsey Metcalf MD Apr 27, 2017 14:14
--- NOTE | 2017-04-27 15:16 | RADRPT ---
EXAM DATE/TIME: 04/27/2017 13:46 [facility] COMPARISON: US ABDOMEN - LOWER LIMITED, February 10, 2017, 9:28. INDICATIONS : Abdomen distention. MEDICAL HISTORY : Ovarian cysts. CVA. HIV+. Ectopic . Diabetes. Liver disease. C-diff. SURGICAL HISTORY : section. ENCOUNTER: Initial ACUITY: 1 day PAIN SCORE: 4/10 LOCATION: Abdomen. AREA EVALUATED: Abdomen. FINDINGS: Imaging of the abdomen and pelvis was performed to evaluate for ascites for possible paracentesis. T here is no significant ascites. CONCLUSION: 1. No significant ascites demonstrated. Pako Easton MD on April 27, 2017 at 15:14 Board Certified Radiologist. This report was verified electronically.
[2017-04-27] MEDS ORDERED: VANCOMYCIN 500 MG VIAL (FOR ORAL USE ONLY) PO SCH (18:00)
[2017-04-27] MEDS: VANCOMYCIN 500 MG VIAL (FOR ORAL USE ONLY) PO SCH (22:21)
[2017-04-28] VITALS (13 sets, daily range): BP systolic 113–169; BP diastolic 62–74; PULSE 61–79; RESP 16–20; TEMP 97.2–99.6; O2SAT 99–100
[2017-04-28 08:01] LABS: APTT (PATIENT) 37.6 SEC (24.3-30.1); INTERNATIONAL NORMALIZED RATIO 1.3 RATIO; PROTHROMBIN TIME - PATIENT 14.5 SEC (9.8-11.6)
[2017-04-28 08:19] LABS: BICARBONATE 23.5 MEQ/L (21.0-32.0); MAGNESIUM 1.6 MG/DL (1.5-2.5); POTASSIUM 3.8 MEQ/L (3.5-5.1)
[2017-04-28 08:26] LABS: HEMATOCRIT 25.2 % (35.0-46.0); MEAN CELL VOLUME 96.4 FL (80.0-100.0); MEAN CORPUSCULAR HGB CONC 33.2 % (32.0-36.0); PLATELET COUNT 158 TH/MM3 (150-450); RED BLOOD COUNT 2.61 MIL/MM3 (4.00-5.30); RED CELL DISTRIBUTION WIDTH 17.9 % (11.6-17.2)
[2017-04-28 08:29] LABS: HEMO FLAGS AUTO DIFF
[2017-04-28] MEDS: CALCIUM CARBONATE 500 MG CHEWABLE TAB CHEW SCH ×2 (09:22→21:49)
[2017-04-28] MEDS: ATOVAQUONE SUSP 750 MG/5 ML UDC PO SCH (09:22)
[2017-04-28] MEDS: LACTOBACILLUS ACIDOPHILUS TAB PO SCH ×3 (09:22→17:56)
[2017-04-28] MEDS: METOPROLOL TARTRATE 25 MG TAB PO SCH ×2 (09:22→21:50)
[2017-04-28] MEDS: ASPIRIN 81 MG CHEW TAB CHEW SCH (09:22)
[2017-04-28] MEDS: VANCOMYCIN 500 MG VIAL (FOR ORAL USE ONLY) PO SCH ×4 (09:23→21:52)
[2017-04-28] MEDS: FLUCONAZOLE 100 MG TAB PO SCH (09:23)
[2017-04-28] MEDS: SODIUM CHLORIDE 0.9% FLUSH 10 ML FLUSH IV FLUSH SCH ×2 (09:23→21:51)
--- NOTE | 2017-04-28 10:26 | PD.CONS ---
Consult Service Palliative Care . Consult Requested By Dr. Timothy Metcalf . Primary Care Physician Jeremiah Garcia MD . Reason for Consultation a. To assist with evaluation and management of symptoms including: pain; diarrhea; shortness of breath b. To assist medical decision maker(s) with: better understanding of current medical conditions; weighing benefits/burdens of medical treatment options; making medical treatment decisions. . HPI History of Present Illness Patient is a poor historian . She is awake, alert, conversant, but different interviewers are getting very different answers to the same questions. This is the 6th acute care hospitalization here at [facility] for this unfortunate 52 y/o female with a known medical history including HIV/AIDS (last CD4 count was <20 10/2016 and again on 03/29/17); stroke, hepatic cirrhosis; recent C diff colitis; who presented to the emergency department at [facility] on 04/26/17 complaining of approximately a one-month history of generalized abdominal pain described as aching and constant with no radiation, no known exacerbating or mitigating factors. The patient also complained of burning sensations in both feet which were also constant but worse with walking. She complained of neck pain and headache for approximately one week. She reported shortness of breath when she reaches up in the air. The patient denied fevers, chills, myalgias, cough, congestion, dysuria, or flank pain. She had been hospitalized in early March for C. difficile colitis. The C diff involved a hypervirulent strain -- 027. During her admission in January 2017, stool had grown out AFB. She reported completing her course of oral vancomycin on 04/02/17 -- she apparently told the emergency physician that the diarrhea had resolved. The hospitalist and infectious disease at[employer] retailer sales consultant were told that the diarrhea had started up again and she has having episodes 1-2 x per day over the last week.. She tells me that the diarrhea had completely resolved as she had completed her antibiotics and then started up again . The patient has a history of noncompliance with anti-retroviral medication. She had been on HAART --> ABC+ epivir+ dolutegravir and darunavir+ cobstat) followed by Dr Teague in outreach clinic -- but it is not clear when she was last compliant with the regimen. The patient reported she had run out of her medications at home -- she told some doctors she ran out about two days ago and she told me she ran out about a week ago. I asked how she came to run out of medications and she said she thought she might have missed a visit with her HIV physician. The patient tells me she normally uses pain medications at home. She says her primary physician normally prescribes Lortab 5 / 325 and she normally uses about two per day. When I ask which of her many pains she is treating with the Lortab she tells me it is for pain everywhere. Initial vital signs in the emergency department were as follows: Temperature 100.4; pulse 100; respiratory rate 18; blood pressure 136/78; pulse oximetry 97 % on room air Initial examination by the emergency anthropology department chair noted the following: Patient was chronically ill-appearing but was in no acute distress. Tachycardia and low-grade fever were noted. There was generalized abdominal tenderness to palpation with mild distention but no guarding. The exam was otherwise unremarkable. Initial diagnostic testing revealed the following: * CBC showed WBC 5.1; hemoglobin 8.4; platelet count 168 * Chemistry panel showed sodium 137; potassium 4.0; chloride 107; CO2 23.7; anion gap 6; BUN 7; creatinine 0.91; glucose 60; GFR 78; lactic acid 1.3 * Liver function studies showed total bilirubin 0.4; 80 ST 38; ALT 19; alkaline phosphatase 108; total protein 8.5; albumin 1.8 * Lipase was 371 * Urinalysis was remarkable for large leukocyte esterase, 12 WBCs per high- power field * CT of the abdomen pelvis showed --> suspected cirrhotic changes and portal hypertension with prominent varices in the left upper quadrant ; showed mild atelectasis or consolidation at the lung bases worse on the leftl; mild prominent lymph nodes in the left inguinal area (not significantly changed from last imaging) Given her complicated infections disease history including HIV/AIDS, virulent C diff strain, AFB + stool, infectious disease was consulted. The patient has a urine culture growing E coli. Infectious disease has stated that the patient's diarrhea is probably due to the Clostridium C. difficile and acid-fast bacilli. Treatment here will be quite challenging and she will need antibiotics for possible MARLA which could further exacerbate her C. difficile. She will also need to remain on antiretrovirals. Palliative care was consulted to assist with symptom management and to further clarify goals of medical treatment and to verify decision-makers. . Function/Cognitive Trajectory The patient uses a walker or cane to ambulate. Her normal weight is about 130 lbs. Her last official outpatient weight was 105 lbs. She believes she has lost about 10 lbs over the last year. With her walker, she is able to slowly walk up to a mile. On the other hand she tells me when she gets out of bed at night she is hunched over and sometimes has difficulty getting to the bathroom. She is able to take care of her own ADLs. . Review of Systems Constitutional: COMPLAINS OF: Fatigue, Weight loss, Pain, Generalized weakness , DENIES: Fever, Weight gain Endocrine: DENIES: Polyuria, Polyphagia Eyes: DENIES: Diplopia, Eye pain, Vision loss Ears, nose, mouth, throat: COMPLAINS OF: Epistaxis, DENIES: Hearing loss, Vertigo, Throat pain Respiratory: DENIES: Apneas, Cough, Snoring, Wheezing, Hemoptysis, Shortness of breath Cardiovascular: DENIES: Chest pain, Palpitations, Syncope, Lower Extremity Edema Gastrointestinal: COMPLAINS OF: Abdominal pain, Diarrhea, DENIES: Black stools , Bloody stools, Constipation, Nausea, Vomiting, Difficulty Swallowing, Anorexia , Dyspepsia or heartburn Genitourinary: DENIES: Urinary frequency, Urinary incontinence, Urgency, Hematuria, Dysuria Musculoskeletal: COMPLAINS OF: Joint pain, Stiffness, Back pain, Neck pain, DENIES: Muscle aches, Joint Swelling Integumentary: DENIES: Rash Immunologic/Allergic: DENIES: Eczema, Urticaria Neurologic: COMPLAINS OF: Headache, Paresthesias, Seizures Psychiatric: COMPLAINS OF: Anxiety, Confusion, DENIES: Hallucinations, Suicidal Ideation Past Family Social History Coded Allergies: No Known Allergies (Verified , 04/26/17) Past Medical History Diabetes Mellitus AIDS CVA x 2 with residual hemiparesis Seizures - a long time ago Esophageal stricture Schatzki's ring Gastritis C diff colitis -- virulent strain. 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 Cirrhosis Malnutrition Pancreatitis Hx GI bleeding . Past Surgical History Exploratory laparotomy Surgery for Ectopic EGD/Colonoscopy . Reported Medications The patient had run out of home medications approximately 2 days prior to presenting at the emergency department. Previous known home medications included the following: Vancomycin Inj (Vancomycin HCl) 500 Mg Inj 500 Mg PO Q6HR 45 Days Metoprolol Tartrate 25 Mg Tab 12.5 Mg PO Q12HR Aspirin Low Strength (Aspirin) 81 Mg Chew 81 Mg CHEW DAILY Dicyclomine (Dicyclomine HCl) 20 Mg Tab 20 Mg PO TID PRN Acidophilus/l-Sporogenes (Lactobacillus Acidophilus) 1 Tab Tab 1 Tab PO TID Zofran (Ondansetron HCl) 4 Mg Tab 4 Mg PO Q6HR PRN Tramadol (Tramadol HCl) 50 Mg Tab 50 Mg PO Q6H PRN Mepron Liq (Atovaquone) 750 Mg/5 Ml Susp 1,500 Mg PO DAILY Fluconazole 100 Mg Tab 100 Mg PO DAILY Prezcobix (Darunavir-Cobicistat) 800-150 Mg Tab 1 Tab PO DAILY Triumeq (Ipbbxxpz-Sgthsificdib-Iafjelinub) 600-50-300 Mg Tab 1 Tab PO DAILY Azithromycin 600 Mg Tab 1,200 Mg PO Q7D 30 Days . Current Medications Medications (Trade) Dose Ordered Sig/Sue Route Start Time Stop Time Status Last Admin (D50w (Vial) Inj) 50 ml UNSCH PRN IV PUSH 04/26/17 18:30 04/26/17 18:26 (NS Flush) 2 ml UNSCH PRN IV FLUSH 04/26/17 22:00 (NS Flush) 2 ml BID IV FLUSH 04/27/17 09:00 04/28/17 09:23 (Narcan Inj) 0.4 mg UNSCH PRN IV PUSH 04/26/17 22:00 (Aspirin Chew) 81 mg DAILY CHEW 04/27/17 09:00 04/28/17 09:22 (Zithromax) 1,200 mg Q7D PO 04/27/17 09:00 04/27/17 11:30 (Bentyl) 20 mg TID PRN PO 04/27/17 05:30 (Diflucan) 100 mg DAILY PO 04/27/17 09:00 04/28/17 09:23 (Lactinex) 1 tab TID PO 04/27/17 09:00 04/28/17 09:22 (Lopressor) 12.5 mg Q12HR PO 04/27/17 09:00 04/28/17 09:22 (Ultram) 50 mg Q6H PRN PO 04/27/17 05:30 04/27/17 22:34 (Zofran Odt) 4 mg Q6H PRN PO 04/27/17 05:45 (Mepron Liq) 1,500 mg DAILY PO 04/27/17 09:00 04/28/17 09:22 (Pill Splitter) 1 ea UNSCH PRN OTHER 04/27/17 05:45 (Tums Chew) 500 mg Q12HR CHEW 04/27/17 09:00 04/28/17 09:22 (VANCOMYCIN for oral use only) 125 mg QID PO 04/27/17 21:00 04/28/17 09:23 . Family History Mother of hepatic cirrhosis. Denies any family history of heart disease, diabetes, or cancer . Substance Use Tobacco: patient smoked for approximately 30 years. Reports quitting approximately the first of this year. Alcohol: Occasional beer. History of increased EtOH use in past. Heavy use ended around Jul 2016. Prescription med abuse: No known prescription medication abuse Illicits: History of cocaine use . 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 Completed 10 grade. 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 Never . No children. Has a partner of over 30 years -- Brandon Munoz. Reports having 17 siblings. . Spiritual/Cultural Factors Self identifies as Church. Not affiliated with any local confucianist group. Open to deputy sheriff/investigator visits. . Living Will: Never completed Health Care Surrogate: Copy in medical record Durable Power of Die Attaching Machine Tender: Never completed Date completed: Designation of health care surrogate was done on 11/18/16. . Health Care Surrogate(s): She completed HCS form designating Grant Ruelas (primary) [phone] as HCS. Brandon Munoz as alternate [phone]. Patient confirmed on 04/28/17 that she wanted that designation to remain unchanged. . Documented care wishes: The patient signed a DO NOT RESUSCITATE form on 11/19/2016. On our conversation of 04/28/17, patient indicated she wanted the DNR rescinded and wanted to be FULL CODE. When she completed the DNR, she says the doctors had convinced her she had less than 6 months to live and she no longer believes that. We have no other written documentation of health care preferences/goals/wishes. . Today's verbally stated goals: Patient understands she is very ill but does not feel she is dying. She does not believe she has 6 months or less to live. She wants ongoing aggressive care including resuscitation attempts at this time. . Family/friends goals: Her partner, Brandon , is at the bedside and appears supportive of the patient's decisions. . Ethical and Legal Issues Patient is capacitated to make her own health care decisions. Should she become incapacitated her primary health care surrogate is her partner, Brandon. . Physical Exam Vital Signs Date Time Temp Pulse Resp B/P (MAP) Pulse Ox O2 Delivery O2 Flow Rate FiO2 04/28/17 08:06 98.3 70 18 126/73 (90) 100 04/28/17 04:00 97.2 70 20 115/62 (79) 99 04/28/17 03:20 73 04/28/17 00:38 76 04/28/17 00:00 99.6 79 18 113/62 (79) 100 04/27/17 23:09 100 Nasal Cannula 2.00 04/27/17 21:45 100.0 89 18 110/58 (75) 94 04/27/17 20:05 77 04/27/17 17:14 98.0 78 24 126/73 (90) 100 04/27/17 12:41 99.0 83 21 131/62 (85) 100 04/27/17 10:33 98.7 79 21 124/60 (81) . Exam CONSTITUTIONAL/GENERAL: This is a thin, weak, female looking younger than her stated age and in no apparent distress. She is in an ER bed. TUBES/LINES/DRAINS: peripheral IV; NC 02; SKIN: No jaundice, rashes, or lesions. No wounds seen anteriorly. Skin temperature appropriate. Not diaphoretic. HEAD: Atraumatic. Normocephalic. EYES: Pupils equal and round and reactive. Extraocular motions intact. No scleral icterus. No injection or drainage. Fundi not examined. ENT: Hearing grossly normal. Nose without bleeding or purulent drainage. Throat without visible erythema, exudates, masses, or lesions. NECK: Trachea midline. Supple, nontender. No palpable thyroid enlargement or nodularity. CARDIOVASCULAR: Regular rate and rhythm without murmurs, gallops, or rubs. No JVD. Peripheral pulses symmetric. RESPIRATORY/CHEST: Symmetric, unlabored respirations. Clear to auscultation. Breath sounds equal bilaterally. No wheezes, rales, or rhonchi. GASTROINTESTINAL: Abdomen soft, disteneded, non-tender. No hepato-splenomegaly, or palpable masses. No guarding. Bowel sounds present. GENITOURINARY: Without palpable bladder distension. MUSCULOSKELETAL: Extremities without clubbing, cyanosis, or edema. No joint effusion noted. There is diffuse bilateral lower extremity tenderness to palpation. No mottling or clubbing. LYMPHATICS: No palpable cervical or supraclavicular adenopathy. NEUROLOGICAL: Awake and alert. Motor and sensory grossly within normal limits. Follows commands. Cognitively sharp. Moves all extremities. PSYCHIATRIC: No obvious anxiety/depression. No apparent hallucinations or other psychotic thought process. . Diagnostic Tests Laboratory Laboratory Tests Test 04/26/17 17:30 04/26/17 18:45 04/27/17 07:43 04/28/17 05:55 White Blood Count 5.1 TH/MM3 (4.0-11.0) 6.1 TH/MM3 (4.0-11.0) 5.0 TH/MM3 (4.0-11.0) Red Blood Count 2.56 MIL/MM3 (4.00-5.30) 2.31 MIL/MM3 (4.00-5.30) 2.61 MIL/MM3 (4.00-5.30) Hemoglobin 8.4 GM/DL (11.6-15.3) 7.5 GM/DL (11.6-15.3) 8.4 GM/DL (11.6-15.3) Hematocrit 24.5 % (35.0-46.0) 22.5 % (35.0-46.0) 25.2 % (35.0-46.0) Mean Corpuscular Volume 95.6 FL (80.0-100.0) 97.4 FL (80.0-100.0) 96.4 FL (80.0-100.0) Mean Corpuscular Hemoglobin 32.8 PG (27.0-34.0) 32.2 PG (27.0-34.0) 32.0 PG (27.0-34.0) Mean Corpuscular Hemoglobin Concent 34.3 % (32.0-36.0) 33.1 % (32.0-36.0) 33.2 % (32.0-36.0) Red Cell Distribution Width 17.3 % (11.6-17.2) 17.4 % (11.6-17.2) 17.9 % (11.6-17.2) Platelet Count 168 TH/MM3 (150-450) 141 TH/MM3 (150-450) 158 TH/MM3 (150-450) Mean Platelet Volume 9.7 FL (7.0-11.0) 9.0 FL (7.0-11.0) 9.3 FL (7.0-11.0) Neutrophils (%) (Auto) 79.9 % (16.0-70.0) 84.8 % (16.0-70.0) Lymphocytes (%) (Auto) 7.0 % (9.0-44.0) 5.3 % (9.0-44.0) Monocytes (%) (Auto) 11.8 % (0.0-8.0) 9.0 % (0.0-8.0) Eosinophils (%) (Auto) 0.7 % (0.0-4.0) 0.5 % (0.0-4.0) Basophils (%) (Auto) 0.6 % (0.0-2.0) 0.4 % (0.0-2.0) Neutrophils # (Auto) 4.1 TH/MM3 (1.8-7.7) 5.2 TH/MM3 (1.8-7.7) Lymphocytes # (Auto) 0.4 TH/MM3 (1.0-4.8) 0.3 TH/MM3 (1.0-4.8) Monocytes # (Auto) 0.6 TH/MM3 (0-0.9) 0.6 TH/MM3 (0-0.9) Eosinophils # (Auto) 0.0 TH/MM3 (0-0.4) 0.0 TH/MM3 (0-0.4) Basophils # (Auto) 0.0 TH/MM3 (0-0.2) 0.0 TH/MM3 (0-0.2) CBC Comment DIFF FINAL DIFF FINAL AUTO DIFF Differential Comment Blood Urea Nitrogen 7 MG/DL (7-18) 6 MG/DL (7-18) 7 MG/DL (7-18) Creatinine 0.91 MG/DL (0.50-1.00) 0.96 MG/DL (0.50-1.00) 0.86 MG/DL (0.50-1.00) Random Glucose 60 MG/DL (74-106) 105 MG/DL (74-106) 59 MG/DL (74-106) Total Protein 8.5 GM/DL (6.4-8.2) 7.4 GM/DL (6.4-8.2) Albumin 1.8 GM/DL (3.4-5.0) Calcium Level 7.9 MG/DL (8.5-10.1) 7.3 MG/DL (8.5-10.1) 7.9 MG/DL (8.5-10.1) Alkaline Phosphatase 108 U/L (45-117) Aspartate Amino Transf (AST/SGOT) 38 U/L (15-37) Alanine Aminotransferase (ALT/SGPT) 19 U/L (10-53) Total Bilirubin 0.4 MG/DL (0.2-1.0) Sodium Level 137 MEQ/L (136-145) 139 MEQ/L (136-145) 139 MEQ/L (136-145) Potassium Level 4.0 MEQ/L (3.5-5.1) 3.6 MEQ/L (3.5-5.1) 3.8 MEQ/L (3.5-5.1) Chloride Level 107 MEQ/L (98-107) 111 MEQ/L (98-107) 108 MEQ/L (98-107) Carbon Dioxide Level 23.7 MEQ/L (21.0-32.0) 20.5 MEQ/L (21.0-32.0) 23.5 MEQ/L (21.0-32.0) Anion Gap 6 MEQ/L (5-15) 8 MEQ/L (5-15) 8 MEQ/L (5-15) Estimat Glomerular Filtration Rate 78 ML/MIN (>89) 74 ML/MIN (>89) 84 ML/MIN (>89) Lactic Acid Level 1.3 mmol/L (0.4-2.0) Lipase 371 U/L (73-393) Urine Color YELLOW (YELLW/STRAW) Urine Turbidity CLEAR (CLEAR) Urine pH 7.0 (5.0-8.5) Urine Specific Art 1.008 (1.002-1.035) Urine Protein NEG mg/dL (NEG-TRACE) Urine Glucose (UA) NEG mg/dL (NEG) Urine Ketones NEG mg/dL (NEG) Urine Occult Blood NEG (NEG) Urine Nitrite NEG (NEG) Urine Bilirubin NEG (NEG) Urine Urobilinogen LESS THAN 2.0 MG/DL (LESS Urine Leukocyte Esterase LARGE (NEG) Urine RBC 1 /hpf (0-3) Urine WBC 12 /hpf (0-5) Urine Squamous Epithelial Cells 2 /hpf (0-5) Urine Transitional Epithelial Cells 1 /hpf (NONE) Urine Bacteria RARE /hpf (NONE) Microscopic Urinalysis Comment CATH-CULTURE IND Protein Corrected Calcium 7.2 MG/DL (8.5-10.1) Prothrombin Time 14.5 SEC (9.8-11.6) Prothromb Time International Ratio 1.3 RATIO Activated Partial Thromboplast Time 37.6 SEC (24.3-30.1) Phosphorus Level 4.0 MG/DL (2.5-4.9) Magnesium Level 1.6 MG/DL (1.5-2.5) Lactate Dehydrogenase 319 U/L (84-246) . Result Diagram: 04/28/17 0555 04/28/17 0555 Microbiology Microbiology Date/Time Source Procedure Growth Status 04/26/17 17:30 Blood Peripheral Aerobic Blood Culture - Preliminary NO GROWTH IN 1 DAY Resulted 04/26/17 17:30 Blood Peripheral Anaerobic Blood Culture - Preliminary NO GROWTH IN 1 DAY Resulted 04/26/17 17:20 Blood Peripheral Aerobic Blood Culture - Preliminary NO GROWTH IN 1 DAY Resulted 04/26/17 17:20 Blood Peripheral Anaerobic Blood Culture - Preliminary NO GROWTH IN 1 DAY Resulted 04/26/17 17:45 Nasal Aspirate Influenza Types A,B Antigen (FLY) - Final NEGATIVE FOR FLU A AND B ANTIGEN.... Complete 04/26/17 18:45 Urine Catheterized Urine Urine Culture - Final Escherichia Coli Complete . Imaging Last Impressions Abdomen Ultrasound 04/27/17 0000 Signed Impressions: Service Date/Time: Thursday, April 27, 2017 13:46 - CONCLUSION: 1. No significant ascites demonstrated. Pako Easton MD Chest X-Ray 04/26/171712 Signed Impressions: Service Date/Time: Wednesday, April 26, 2017 17:27 - CONCLUSION: 1. Near interval resolution of patchy bilateral lower lobe airspace disease. Pako Easton MD Abdomen/Pelvis CT 04/26/171712 Signed Impressions: Service Date/Time: Wednesday, April 26, 2017 20:08 - CONCLUSION: 1. No definite acute abnormality is seen. 2. Suspected changes of cirrhosis and portal hypertension with prominent varices seen in the left upper quadrant. These were present previously. 3. Mild atelectasis or consolidation at the lung bases being worse on the left. 4. Mildly prominent lymph nodes in the left inguinal region. These were present previously and do not appear significantly changed. Nelson Pinon MD . Patient/Family Conference Present at Family Conference: Patient and her partner (Brandon) . Family Conference Time (mins): 30 Family Conference Location: Bedside Issues Discussed: * Palliative care role, purpose, approach * Additional medical, psychosocial, and spiritual history * Patients general health, functional status, and cognitive changes in the months leading up to the current hospitalization * Patient understanding of the current medical problems * Patient understanding of prognosis * Patients goals of medical treatment * Current medical treatment options and benefits/burdens of those options * Questions answered to the best of my ability * Palliative care contact information provided . Assessment and Plan Disease Oriented Problem List: (1) Acid fast bacillus Comment: AFB found in stool . 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 difficile colitis Comment: Recurrent C diff with resistant stongs . (6) AIDS wasting syndrome Symptom Scale: (1) Pain 0-10 Scale: 6 Comment: Has multiple different pain syndromes * Has bilateral lower extremity pain that is described as "burning" and intensifies with walking. * Has had recent abdominal pain. Worse in the upper abdomen. Describes as "aching" and constant. No radiation. * Has neck pain and headaches for approximately one week prior to presentation. . (2) Weakness 0-10 Scale: Unable to quantify (3) Dyspnea Comment: Patient claims she gets SOB when she lifts her arm up above her shoulders. . Pertinent Non-Medical Issues Psychosocial: Never . Has partner of about 30 years who is supportive. No children. Does not keep in touch with her own family. Normally lives at home with partner -- Brandon. Spiritual: Church. open to deputy sheriff/investigator visits. Legal: Has a designated health care surrogate. No living will . Had completed a DNR in the spring, but wants FULL CODE now. Ethical issues impacting care: No known ethical issues impacting care. . Important Contacts Grant Ruelas (primary) [phone] as HCS. Brandon Munoz as alternate [phone]. . Prognosis Patient's HIV/AIDS has been complicated by a virulent strain of C diff as well as a mycboacterial infection. She has been non-compliant with HIV treatments. She has been losing weight. It will be challenging to treat her mycobacterial infection without adversely impacting her C diff treatment. At this point, even with compliance, we may see a sharper downhill course. . Code Status: Full Code Plan == Code Status: Full Code (Please note that patient had signed her own DNR on11/18/16. She has verbally rescinded that DNR. She no longer believes her life expectancy is limited and wants aggressive care). == Decision Making: The patient is currently capacitated to make her own health care decisions. Should she become incapacitated she has completed a health care surrogate form designating Grant Ruelas ([phone]) as primary HCS and Brandon Munoz ([phone] as alternate . == Goals of medical treatment: As noted above, patient wants full aggressive care including resuscitative efforts. == Symptoms: * Pain: Has multiple different pain syndromes . Has bilateral lower extremity pain that is described as "burning" and intensifies with walking. Has had recent abdominal pain worse in the upper abdomen and described as "aching" and constant -- no radiation and no mitigating or exacerbating factors. Has neck pain and headaches for approximately one week prior to presentation. The burning type LE pain is new. It seems neuropathic. Abdominal pain is probably secondary to her colitis. The neck pain and headaches are of uncertain etiology -- neck is supple and there is no clinical evidence of meningitis. Patient says she normally uses hydrocodone 5 mg twice a day at home. There is a tramadol order here. If the lower extremity burning persists, may want to consider gabapentin. * Dyspnea: Has SOB primarily when she lifts her arms up above her head. Cause of this is unclear. Patient may have a pneumonia but CXR already improving. On antibiotics per ID. No further recommendations at this time. * Diarrhea: This is secondary to her colitis. Non-bloody at this time. Treatments for C diff and AFB in hands of ID. Use of opiates for pain will likely slow diarrhea if it becomes problematic. Patient already on lactobacillus. * Wasting/malnutrition: If reversible at all, we will probably need to effectively treat C diff,and mycobacteria, and get her back on HIV AIDS detention. == Will speak to ID about prognosis here. If prognosis is quite bleak as I suspect, it will be valuable for all consultants to be open about this. Patient does not believe she is as ill as she is. This may become even more important if we find we can't treat mycobacteria without exacerbating C diff. == Palliative care will continue to follow to assist with symptom management and to further clarify goals of medical treatment as the clinical course evolves. . Thank you for the opportunity to participate in the care of Ms. Helm. . Attestation To help prompt me to consider important information that might be impacting today's encounter and assessment, information from prior notes written by myself or my colleagues may have been "brought forward" into today's note. My signature on this note, however, is an attestation that I personally performed the exam, history, and/or decision-making noted today, and, unless otherwise indicated, the interactions with patient, family, and staff as well as the review of records all occurred today. I also attest that the listed assessment and stated plan reflect my best clinical judgment today based on the combination of historical information, prior notes, and today's exam/ interactions. When time spent is documented, it refers only to time spent today by the signer, or if indicated, combined time spent today by collaborating physician/nurse practitioner. . Leopoldo Cuadra MD Apr 28, 2017 10:25
[2017-04-28 11:11] LABS: BANDS 27 % (0-6); EOSINOPHILS 3 % (0-4); METAMYELOCYTES 1 % (0-1); NEUTROPHIL # MANUAL DIFF 4.2 TH/MM3 (1.8-7.7); POLYS (SEG NEUTROPHILS) 56 % (16-70); WBC DIFF SAMPLE 100
[2017-04-28 11:12] LABS: OVALOCYTES 1+ (NORMAL); PLATELET ESTIMATE SMEAR NORMAL (NORMAL); PLATELET MORPHOLOGY NORMAL (NORMAL); SCAN/DIFF FINAL DIFF MANUAL
--- NOTE | 2017-04-28 11:26 | HHI.PR ---
Subjective Remarks Follow up for abdominal pain, fever, diarrhea. The patient reports feeling better again today. She denies any fevers, but does report chills and occasional sweats overnight. Denies any abdominal pain. Diarrhea improved, last BM was yesterday, none today. Denies any nausea/vomiting. Denies any dysuria or suprapubic pain. She ran out of her meds 3 days ago. She follows with Dr. Ahumada as outpatient, encouraged to make an appointment. Objective Vitals Vital Signs Date Time Temp Pulse Resp B/P (MAP) Pulse Ox O2 Delivery O2 Flow Rate FiO2 04/28/17 08:06 98.3 70 18 126/73 (90) 100 04/28/17 04:00 97.2 70 20 115/62 (79) 99 04/28/17 03:20 73 04/28/17 00:38 76 04/28/17 00:00 99.6 79 18 113/62 (79) 100 04/27/17 23:09 100 Nasal Cannula 2.00 04/27/17 21:45 100.0 89 18 110/58 (75) 94 04/27/17 20:05 77 04/27/17 17:14 98.0 78 24 126/73 (90) 100 04/27/17 12:41 99.0 83 21 131/62 (85) 100 04/27/17 10:33 98.7 79 21 124/60 (81) I/O 04/27/17 04/27/17 04/27/17 04/28/17 04/28/17 04/28/17 07:00 15:00 23:00 07:00 15:00 23:00 Intake Total 300 ml 100 ml 480 ml 500 ml Output Total 600 ml 350 ml Balance 300 ml 100 ml -120 ml 150 ml Intake Oral 480 ml 500 ml IV Total 300 ml 100 ml Output Urine Total 600 ml 350 ml # Voids 3 5 # Bowel Movements 1 3 0 Result Diagram: 04/28/17 0555 04/28/17 0555 Imaging Last Impressions Abdomen Ultrasound 04/27/17 0000 Signed Impressions: Service Date/Time: Thursday, April 27, 2017 13:46 - CONCLUSION: 1. No significant ascites demonstrated. Pako Easton MD Chest X-Ray 04/26/17 4613 Signed Impressions: Service Date/Time: Wednesday, April 26, 2017 17:27 - CONCLUSION: 1. Near interval resolution of patchy bilateral lower lobe airspace disease. Pako Easton MD Abdomen/Pelvis CT 04/26/17 1713 Signed Impressions: Service Date/Time: Wednesday, April 26, 2017 20:08 - CONCLUSION: 1. No definite acute abnormality is seen. 2. Suspected changes of cirrhosis and portal hypertension with prominent varices seen in the left upper quadrant. These were present previously. 3. Mild atelectasis or consolidation at the lung bases being worse on the left. 4. Mildly prominent lymph nodes in the left inguinal region. These were present previously and do not appear significantly changed. Nelson Pinon MD Objective Remarks GENERAL: Thin cachectic appearing middle aged female patient in [place]. SKIN: Warm and dry. No rash. HEENT: Normocephalic. Atraumatic.Pupils equal and round. Mucous membranes pink and moist. NECK: Supple. Trachea midline. CARDIOVASCULAR: Regular rate and rhythm. S1, S2 noted. No murmur appreciated. RESPIRATORY: No accessory muscle use. Clear to auscultation. Breath sounds equal bilaterally. GASTROINTESTINAL: Abdomen soft, non-tender, nondistended. Normoactive bowel sounds x4. MUSCULOSKELETAL: No obvious deformities. Extremities without clubbing, cyanosis , or edema. NEUROLOGICAL: Awake and alert. No obvious cranial nerve deficits. Motor grossly within normal limits. Normal speech. PSYCHIATRIC: Appropriate mood and affect; insight and judgment normal. Medications and IVs Current Medications Medications (Trade) Dose Ordered Sig/Sue Route Start Time Stop Time Status Last Admin (D50w (Vial) Inj) 50 ml UNSCH PRN IV PUSH 04/26/17 18:30 04/26/17 18:26 (NS Flush) 2 ml UNSCH PRN IV FLUSH 04/26/17 22:00 (NS Flush) 2 ml BID IV FLUSH 04/27/17 09:00 04/28/17 09:23 (Narcan Inj) 0.4 mg UNSCH PRN IV PUSH 04/26/17 22:00 (Aspirin Chew) 81 mg DAILY CHEW 04/27/17 09:00 04/28/17 09:22 (Zithromax) 1,200 mg Q7D PO 04/27/17 09:00 04/27/17 11:30 (Bentyl) 20 mg TID PRN PO 04/27/17 05:30 (Diflucan) 100 mg DAILY PO 04/27/17 09:00 04/28/17 09:23 (Lactinex) 1 tab TID PO 04/27/17 09:00 04/28/17 09:22 (Lopressor) 12.5 mg Q12HR PO 04/27/17 09:00 04/28/17 09:22 (Ultram) 50 mg Q6H PRN PO 04/27/17 05:30 04/27/17 22:34 (Zofran Odt) 4 mg Q6H PRN PO 04/27/17 05:45 (Mepron Liq) 1,500 mg DAILY PO 04/27/17 09:00 04/28/17 09:22 (Pill Splitter) 1 ea UNSCH PRN OTHER 04/27/17 05:45 (Tums Chew) 500 mg Q12HR CHEW 04/27/17 09:00 04/28/17 09:22 (VANCOMYCIN for oral use only) 125 mg QID PO 04/27/17 21:00 04/28/17 09:23 A/P Problem List: (1) Abdominal pain ICD Code: R10.9 - Unspecified abdominal pain Status: Acute (2) Abdominal distension ICD Code: R14.0 - Abdominal distension (gaseous) Status: Acute (3) Fever ICD Code: R50.9 - Fever, unspecified Status: Acute (4) 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 Helm is a 52 y/o female with AIDS who has been noncompliant with her medications and who presented to ED with multiple complaints including fever 100.4, abdominal pain and diarrhea with history of recent c. difficile colitis. Sepsis/Fever: Temperature 100.4. Tachycardia at admission. Potential source of C. difficile, UTI. - Blood cultures with NGTD, continue to follow. - ID consulted, appreciate recommendations - symptoms improving C. difficile Diarrhea and Abdominal Pain: Reports 1-2 loose stools daily. Patient did have mycobacteria in her stool back in [place], but stool studies and AFB culture from 03/27 were negative. 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 - Continue treatment for C. difficile with oral vancomycin at decreased dose to 125 mg po q6hrs (higher dose not needed per ID) - Continue Lactinex - Tramadol 50 mg q12h PRN pain HIV/AIDS: CD4 < 20. - Continue HAART - consult infectious disease, appreciate recommendations - Continue Azithro for MARLA prophylaxis 1200 mg per week. - Continue Atovaquone for PCP - Continue diflucan prophylaxis - Palliative care consulted by ID Asymptomatic Bacteruria: UA borderline but sent for culture. Patient denies any urinary symptoms. Urine culture preliminarily growing gram-negative rods. - IV Rocephin d/delvin by ID - Follow-up final urine culture results. - ID on board Acute ascites with chronic cirrhosis: Abdominal ultrasound showed ascites. Abdomen tense, distended on exam. - Diagnostic and therapeutic paracentesis Hypocalcemia: Moderate. Protein corrected calcium 7.2. - Given IV calcium and continue oral supplementation - Calcium improved to 7.9 Normocytic Anemia: Of chronic disease. Hemoglobin 8.4, previously 0.7 on . Hemoglobin did drop to 7.5, suspect dilutional - repeat CBC shows improvement, Hgb 8.4, stable Weakness: Secondary to the above. - PT consulted DVT prophylaxis: SCDs Problem Qualifiers (1) Abdominal pain: Qualified Codes: R10.84 - Generalized abdominal pain (2) Fever: Qualified Codes: R50.9 - Fever, unspecified Marilee Desai PA-C Apr 28, 2017 10:34 am
--- NOTE | 2017-04-28 14:52 | HHI.PR ---
Addendum to Inpatient Note Addendum Reason: Additional Documentation Additional Information Clinically doing better. Stool more formed. Continue Vanco 125 mg po q6hrs for 14 days total. Ok to discharge from ID standpoint. HAART per outpt regimen. Will sign off please call back if any change in clinical condition or questions. Lynsey Metcalf MD Apr 28, 2017 14:52
[2017-04-28] MEDS ORDERED: VANC500I3 PO (18:15)
--- NOTE | 2017-04-28 18:16 | HHI.DCPOC ---
Discharge Care Plan Diagnosis: (1) C. difficile colitis (2) HIV (human immunodeficiency virus infection) (3) AIDS wasting syndrome (4) Severe protein-calorie malnutrition Goals to Promote Your Health * To prevent worsening of your condition and complications * To maintain your health at the optimal level Directions to Meet Your Goals Take your medications as prescribed Follow your dietary instruction Follow activity as directed Keep your appointments as scheduled Take your immunizations and boosters as scheduled If your symptoms worsen call your PCP, if no PCP go to Urgent Care Center or Emergency Room Smoking is Dangerous to Your Health. Avoid second hand smoke Call the 24-hour hour crisis hotline for domestic abuse at Marilee Desai PA-C Apr 28, 2017 6:16 pm
[2017-04-28] MEDS: traMADol HCL 50 MG TAB PO PRN (18:32)
[2017-04-28] MEDS ORDERED: GLUCAGON 1 MG/ML VIAL OTHER PRN (21:30)
[2017-04-28] MEDS ORDERED: DEXTROSE 50% IN WATER 50 ML SYRINGE IV PUSH PRN (21:30)
[2017-04-29 00:02] VITALS: PULSE 80
[2017-04-29] MEDS: traMADol HCL 50 MG TAB PO PRN (01:50)
[2017-04-29 04:00] VITALS: PULSE 64
[2017-04-29 04:09] VITALS: BP 108/55; PULSE 68; RESP 18; TEMP 97.3; O2SAT 100
[2017-04-29 07:45] VITALS: PULSE 63
[2017-04-29 08:32] VITALS: BP 126/68; PULSE 120; RESP 20; TEMP 98.2; O2SAT 96
[2017-04-29] MEDS: SODIUM CHLORIDE 0.9% FLUSH 10 ML FLUSH IV FLUSH SCH (08:56)
[2017-04-29] MEDS: LACTOBACILLUS ACIDOPHILUS TAB PO SCH (08:56)
[2017-04-29] MEDS: ASPIRIN 81 MG CHEW TAB CHEW SCH (08:56)
[2017-04-29] MEDS: CALCIUM CARBONATE 500 MG CHEWABLE TAB CHEW SCH (08:56)
[2017-04-29] MEDS: METOPROLOL TARTRATE 25 MG TAB PO SCH (08:57)
[2017-04-29] MEDS: ATOVAQUONE SUSP 750 MG/5 ML UDC PO SCH (08:57)
[2017-04-29] MEDS: FLUCONAZOLE 100 MG TAB PO SCH (08:57)
[2017-04-29] MEDS: VANCOMYCIN 500 MG VIAL (FOR ORAL USE ONLY) PO SCH (08:57)
[2017-04-29] MEDS ORDERED: ATOV750UDC PO (09:06)
[2017-04-29] MEDS ORDERED: ABAC1TAB3 PO (09:06)
[2017-04-29] MEDS ORDERED: FLUC100T2 PO (09:06)
[2017-04-29] MEDS ORDERED: DARU1TAB2 PO (09:06)
[2017-04-29] MEDS ORDERED: METO25TA3 PO (09:06)
[2017-04-29] MEDS ORDERED: VANC500I3 PO (09:07)
--- NOTE | 2017-04-29 09:49 | HHI.DS ---
Discharge Summary Admission Date Apr 27, 2017 at 5:35 am Discharge Date: Apr 29, 2017 Admitting Diagnosis pneumonia, UTI, fever, HIV (1) C. 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 Brief History - From Admission The patient reports abdominal pain with diarrhea 1 - 2 times per day for about a week. The patient reports neck pain for about a week and headache. The patient reports shortness of breath when she "reaches up in the air". The patient denies cough but reports sneezing. She denies syncope or fall. Ran out of home medications for about two days ago. The patient is a poor historian. . CBC/BMP: 04/28/17 0555 04/28/17 0555 Significant Findings Laboratory Tests Test 04/26/17 17:30 04/26/17 18:45 04/27/17 07:43 04/28/17 05:55 Red Blood Count 2.56 MIL/MM3 (4.00-5.30) 2.31 MIL/MM3 (4.00-5.30) 2.61 MIL/MM3 (4.00-5.30) Hemoglobin 8.4 GM/DL (11.6-15.3) 7.5 GM/DL (11.6-15.3) 8.4 GM/DL (11.6-15.3) Hematocrit 24.5 % (35.0-46.0) 22.5 % (35.0-46.0) 25.2 % (35.0-46.0) Red Cell Distribution Width 17.3 % (11.6-17.2) 17.4 % (11.6-17.2) 17.9 % (11.6-17.2) Neutrophils (%) (Auto) 79.9 % (16.0-70.0) 84.8 % (16.0-70.0) Lymphocytes (%) (Auto) 7.0 % (9.0-44.0) 5.3 % (9.0-44.0) Monocytes (%) (Auto) 11.8 % (0.0-8.0) 9.0 % (0.0-8.0) Lymphocytes # (Auto) 0.4 TH/MM3 (1.0-4.8) 0.3 TH/MM3 (1.0-4.8) Random Glucose 60 MG/DL (74-106) 59 MG/DL (74-106) Total Protein 8.5 GM/DL (6.4-8.2) Albumin 1.8 GM/DL (3.4-5.0) Calcium Level 7.9 MG/DL (8.5-10.1) 7.3 MG/DL (8.5-10.1) 7.9 MG/DL (8.5-10.1) Aspartate Amino Transf (AST/SGOT) 38 U/L (15-37) Estimat Glomerular Filtration Rate 78 ML/MIN (>89) 74 ML/MIN (>89) 84 ML/MIN (>89) Urine Leukocyte Esterase LARGE (NEG) Urine WBC 12 /hpf (0-5) Urine Bacteria RARE /hpf (NONE) Platelet Count 141 TH/MM3 (150-450) Blood Urea Nitrogen 6 MG/DL (7-18) Chloride Level 111 MEQ/L (98-107) 108 MEQ/L (98-107) Carbon Dioxide Level 20.5 MEQ/L (21.0-32.0) Protein Corrected Calcium 7.2 MG/DL (8.5-10.1) Band Neutrophils % 27 % (0-6) Lymphocytes % 7 % (9-44) Ovalocytes 1+ (NORMAL) Prothrombin Time 14.5 SEC (9.8-11.6) Activated Partial Thromboplast Time 37.6 SEC (24.3-30.1) Lactate Dehydrogenase 319 U/L (84-246) Imaging Last Impressions Abdomen Ultrasound 04/27/17 0000 Signed Impressions: Service Date/Time: Thursday, April 27, 2017 13:46 - CONCLUSION: 1. No significant ascites demonstrated. Pako Easton MD Chest X-Ray 04/26/171712 Signed Impressions: Service Date/Time: Wednesday, April 26, 2017 17:27 - CONCLUSION: 1. Near interval resolution of patchy bilateral lower lobe airspace disease. Pako Easton MD Abdomen/Pelvis CT 04/26/171712 Signed Impressions: Service Date/Time: Wednesday, April 26, 2017 20:08 - CONCLUSION: 1. No definite acute abnormality is seen. 2. Suspected changes of cirrhosis and portal hypertension with prominent varices seen in the left upper quadrant. These were present previously. 3. Mild atelectasis or consolidation at the lung bases being worse on the left. 4. Mildly prominent lymph nodes in the left inguinal region. These were present previously and do not appear significantly changed. Nelson Pinon MD PE at Discharge GENERAL: Thin cachectic appearing middle aged female patient in [place]. SKIN: Warm and dry. No rash. HEENT: Normocephalic. Atraumatic.Pupils equal and round. Mucous membranes pink and moist. CARDIOVASCULAR: Regular rate and rhythm. S1, S2 noted. No murmur appreciated. RESPIRATORY: No accessory muscle use. Clear to auscultation. Breath sounds equal bilaterally. GASTROINTESTINAL: Abdomen soft, non-tender, nondistended. Normoactive bowel sounds x4. MUSCULOSKELETAL: No obvious deformities. Extremities without clubbing, cyanosis , or edema. NEUROLOGICAL: Awake and alert. No obvious cranial nerve deficits. Motor grossly within normal limits. Normal speech. PSYCHIATRIC: Appropriate mood and affect; insight and judgment normal. Pt update on day of discharge Patient reports feeling much better. Her diarrhea has slowed down, stools becoming more solid. Denies any abdominal pain today. Denies any nausea/ vomiting. She is tolerating oral intake. Denies fevers or chills overnight. She feels ready for discharge. Hospital Course Ms. Helm is a 52 y/o female with AIDS who has been noncompliant with her medications and who presented to ED with multiple complaints including fever 100.4, abdominal pain and diarrhea with history of recent c. difficile colitis. The patient was admitted with sepsis, fever, Tmax 100.4, source C.difficile. Infectious disease was consulted. She was started on Vanco 125 mg po q6hrs ( higher dose not needed per ID) and continued on Lactinex tid. She also had asymptomatic pyuria, initially given IV rocephin then discontinued by ID. Blood cultures with NGTD. HAART meds were restarted however patient reports she ran out of these x3days. She was continued on prophylaxis meds including Azithro for MARLA prophylaxis, Atovaquone for PCP, and diflucan prophylaxis. Palliative care was consulted, patient's goals remain aggressive and she revoked DNR. Her symptoms much improved throughout hospitalization, diarrhea slowed down and stools became more formed. Afebrile since her arrival. She is tolerating oral intake. She feels ready for discharge. Case management arranged an appointment for her on 05/[address] Rose her primary infectious disease physician. Pt Condition on Discharge: Stable Discharge Disposition: Discharge Home Discharge Time: > 30 minutes Discharge Instructions DIET: Follow Instructions for: As Tolerated, No Restrictions Activities you can perform: Regular-No Restrictions Follow up Referrals: Infectious Disease - 05/04/17 with Donavan Ahumada You have an appointment scheduled on 05/04 at 9am. Do not miss this appointment. PCP Follow-up - 1 Week with Jeremiah Garcia MD New Medications: Vancomycin Inj (Vancomycin Inj) 500 Mg Inj 125 MG PO QID for Cdifficile infection for 14 Days, #56 UNIT Take 4 times a day for 14 days total. Continued Medications: Wppcxtel-Pdohuudjadee-Biwleeohnn (Triumeq) 600-50-300 Mg Tab 1 TAB PO DAILY for Mgmt Viral Infection, #7 TAB 0 Refills (This prescription has been renewed) Hazardous agent; use appropriate precautions for handling & disposal. Aspirin (Aspirin Low Strength) 81 Mg Chew 81 MG CHEW DAILY for Blood Clot Prevention, #30 EA Atovaquone Liq (Mepron Liq) 750 Mg/5 Ml Susp 1500 MG PO DAILY for Infection for 7 Days, #70 ML 0 Refills (This prescription has been renewed) Take with food. Azithromycin (Azithromycin) 600 Mg Tab 1200 MG PO Q7D for prophylaxis for 30 Days, #10 TAB 0 Refills Darunavir-Cobicistat (Prezcobix) 800-150 Mg Tab 1 TAB PO DAILY for Mgmt Viral Infection, #7 TAB 0 Refills (This prescription has been renewed) Dicyclomine (Dicyclomine) 20 Mg Tab 20 MG PO TID PRN for abdominal cramping, #90 TAB Fluconazole (Fluconazole) 100 Mg Tab 100 MG PO DAILY for Infection, #30 TAB 0 Refills (This prescription has been renewed) Lactobacillus Acidophilus (Acidophilus/l-Sporogenes) 1 Tab Tab 1 TAB PO TID for Diarrhea, #135 TAB Metoprolol Tartrate (Metoprolol Tartrate) 25 Mg Tab 12.5 MG PO Q12HR for heart health, #60 TAB (This prescription has been renewed) Ondansetron (Zofran) 4 Mg Tab 4 MG PO Q6HR PRN for NAUSEA OR VOMITING, #60 TAB 0 Refills Tramadol (Tramadol) 50 Mg Tab 50 MG PO Q6H PRN for PAIN, #60 TAB 0 Refills Discontinued Medications: Vancomycin Inj (Vancomycin Inj) 500 Mg Inj 500 MG PO Q6HR for Infection for 45 Days, #180 UNIT Marilee Desai PA-C Apr 29, 2017 09:48 Julius Brooke MD Apr 29, 2017 22:37
== END 2017-04-29 10:11 | disposition home or self-care (01) | DRG 974 ==
LOC: NEPD 16:23 → NEDA 21:51 → INTOOBSV 21:51 → NEPGCP 22:57 → OBSVTOIN 04-27 05:35
PROVIDERS: ADMIT Internal Medicine; ATTEND Internal Medicine
DX: A41.9 Sepsis, unspecified organism (principal); B20 Human immunodeficiency virus [HIV] disease; E43 Unspecified severe protein-calorie malnutrition; K74.60 Unspecified cirrhosis of liver; R64 Cachexia; J18.9 Pneumonia, unspecified organism; R18.8 Other ascites; A04.71 Enterocolitis due to Clostridium difficile, recurrent; A31.9 Mycobacterial infection, unspecified; N30.00 Acute cystitis without hematuria; Z68.1 Body mass index [BMI] 19.9 or less, adult; A04.72 Enterocolitis due to Clostridium difficile, not specified as recurrent; E11.9 Type 2 diabetes mellitus without complications; B96.20 Unspecified Escherichia coli [E. coli] as the cause of diseases classified elsewhere; R53.1 Weakness; D63.8 Anemia in other chronic diseases classified elsewhere; E83.51 Hypocalcemia; G40.909 Epilepsy, unspecified, not intractable, without status epilepticus; Z91.14 Patient's other noncompliance with medication regimen; Z86.73 Personal history of transient ischemic attack (TIA), and cerebral infarction without residual deficits; Z87.891 Personal history of nicotine dependence
CPT/HCPCS: 71010; 74177; 76700; 76705; 80048; 80053; 81001; 82948; 83605; 83615; 83690; 83735; 84100; 84155; 85007; 85025; 85027; 85610; 85730; 87040; 87077; 87086; 87186; 87804; 96365; 96375; G8987-GP; G8988-GP; J0610; J0696; J2543; J3370; J7030; J7050; Q9967

== ENCOUNTER 2017-05-12 19:14 | Inpatient (IN) | payer MEDICARE, MEDICAID ==
[~2017-05-12] VITALS: Ht 162.6 cm; Wt 57.4 kg
[2017-05-12 19:23] VITALS: BP 126/57; PULSE 99; RESP 18; O2SAT 99
--- NOTE | 2017-05-12 19:24 | PD ---
Physical Exam Exam Limitations: Poor Historian Date Seen by Provider: May 12, 2017 Time Seen by Provider: 19:20 Narrative 52-year-old Afro-[place]ian female presents the emergency department with abdominal pain, nausea, vomiting, and history of hemorrhoids. Patient states she was at [facility] earlier today for a CT scan that was rescheduled due to her vomiting up the contrast. Patient states she's had these symptoms for approximately a week. Patient states the pain is 10 over 10 and points to her stomach. Patient is HIV positive. States she has been taking her medicines but sometimes can't keep them down. She has no known drug allergies. [facility] Medical Record Reviewed: Yes Supervised Visit with FOREIGN: Yes Narrative Course Vital signs are reviewed. Patient is felt to be medically stable. Patient is awaiting bed placement. Condition: Stable Nicola Perez May 12, 2017 19:24
[2017-05-12 19:41] VITALS: TEMP 99.5
[2017-05-12] MEDS ORDERED: SODIUM CHLOR 0.9% 1000 ML INJ 1,000 ML IV SCH (19:46)
[2017-05-12 20:00] VITALS: BP 144/72; PULSE 96; RESP 22; O2SAT 100
[2017-05-12] MEDS ORDERED: MORPHINE SULFATE 4 MG/ML INJ IV PUSH ONE (20:00)
[2017-05-12] MEDS ORDERED: ONDANSETRON HCL 4 MG/2 ML VIAL IVP ONE (20:00)
[2017-05-12] MEDS: SODIUM CHLORIDE 0.9% FLUSH 10 ML FLUSH IV FLUSH PRN (20:08)
[2017-05-12 20:30] VITALS: BP 163/78; PULSE 96; RESP 23; O2SAT 100
[2017-05-12 21:00] VITALS: BP 145/65; PULSE 100; RESP 20; O2SAT 100
[2017-05-12 21:04] LABS: HEMATOCRIT 27.5 % (35.0-46.0); MEAN CELL VOLUME 97.7 FL (80.0-100.0); MEAN CORPUSCULAR HEMOGLOBIN 33.1 PG (27.0-34.0); MEAN CORPUSCULAR HGB CONC 33.9 % (32.0-36.0); PLATELET COUNT 211 TH/MM3 (150-450); RED BLOOD COUNT 2.81 MIL/MM3 (4.00-5.30); RED CELL DISTRIBUTION WIDTH 16.9 % (11.6-17.2); WHITE BLOOD COUNT 4.2 TH/MM3 (4.0-11.0)
--- NOTE | 2017-05-12 21:04 | PD ---
HPI Chief Complaint: Abdominal Pain Time Seen by Provider: 19:29 Travel History International Travel<30 days: No Contact w/Intl Traveler<30days: No Traveled to known affect area: No History of Present Illness HPI Patient is a 52 year old female who comes in complaining of abdominal pain. She has history of AIDS, last CD4 documenter in March was less than 20. She says she has been having pain all over her abdomen. She says she has been having diarrhea and nausea and vomiting. She reports about 4 episodes of diarrhea in a day. She denies any blood in her stool or vomit. She says she does not know if she has had a fever. She was recently on antibiotics for pneumonia. She has not taken anything for her symptoms. PFSH Past Medical History Hx Anticoagulant Therapy: No Arthritis: No Asthma: No Autoimmune Disease: Yes Blood Disorders: Yes Anxiety: No Depression: Yes Heart Rhythm Problems: No Cancer: No Cardiomyopathy: No Cardiovascular Problems: No High Cholesterol: No Chemotherapy: No Chest Pain: No Congestive Heart Failure: No Cirrhosis: Yes COPD: No Cerebrovascular Accident: Yes (x2) Diabetes: Yes Patient Takes Glucophage: No Diminished Hearing: No Endocrine: No Gastrointestinal Disorders: Yes GERD: No Genitourinary: Yes (UTIS) Headaches: Yes Hiatal Hernia: No Hypertension: No Immune Disorder: Yes (HIV) Implanted Vascular Access Dvce: No Kidney Stones: No Musculoskeletal: Yes Neurologic: Yes (PT STATES R/T HER HIV) Psychiatric: Yes Reproductive: No Respiratory: No Migraines: Yes Radiation Therapy: No Renal Failure: No Seizures: Yes Sickle Cell Disease: No Sleep Apnea: No Thyroid Disease: No Ulcer: No Tetanus Vaccination: Unknown Influenza Vaccination: No ?: Not Menopausal: Yes : 2 Para: 0 Miscarriage: 1 : 1 Ectopic : Yes Ovarian Cysts: Yes Past Surgical History Abdominal Surgery: Yes (Expoloratory Lap) AICD: No Arteriovenous Shunt: No Cardiac Surgery: No Section: Yes Ear Surgery: No Endocrine Surgery: No Eye Surgery: No Genitourinary Surgery: No Gynecologic Surgery: Yes Hysterectomy: No Insulin Pump: No Joint Replacement: No Neurologic Surgery: No Oral Surgery: No Pacemaker: No Thoracic Surgery: No Other Surgery: Yes (, ectopic ) Social History Alcohol Use: Yes ([place]) Tobacco Use: No (8 yrs ago) Substance Use: No Allergies-Medications (Allergen,Severity, Reaction): Coded Allergies: No Known Allergies (Verified , 04/26/17) Reported Meds & Prescriptions Reported Meds & Active Scripts Active Metoprolol Tartrate 25 Mg Tab 12.5 Mg PO Q12HR Prezcobix (Darunavir-Cobicistat) 800-150 Mg Tab 1 Tab PO DAILY Triumeq (Qbgyockt-Unsryjoqeifu-Agzzzujtpt) 600-50-300 Mg Tab 1 Tab PO DAILY Hazardous agent; use appropriate precautions for handling & disposal. Aspirin Low Strength (Aspirin) 81 Mg Chew 81 Mg CHEW DAILY Acidophilus/l-Sporogenes (Lactobacillus Acidophilus) 1 Tab Tab 1 Tab PO TID Zofran (Ondansetron HCl) 4 Mg Tab 4 Mg PO Q6HR PRN Azithromycin 600 Mg Tab 1,200 Mg PO Q7D 30 Days Review of Systems Except as stated in HPI: all other systems reviewed are Neg HENT: No: Headaches, Lightheadedness Cardiovascular: No: Chest Pain or Discomfort Respiratory: No: Shortness of Breath Gastrointestinal: Positive: Nausea, Diarrhea, Abdominal Pain Genitourinary: No: Dysuria Musculoskeletal: No: Edema Skin: No Rash, No Change in Pigmentation Neurologic: No: Weakness, Dizziness Physical Exam Narrative GENERAL: Awake and alert, in no acute distress. Cachectic appearing SKIN: Focused skin assessment warm/dry. No wounds or signs of infection. HEAD: Atraumatic. Normocephalic. EYES: Pupils equal and round. No scleral icterus. ENT: Mucous membranes pink and moist. NECK: Trachea midline. No JVD. CARDIOVASCULAR: Regular rate and rhythm. No murmur appreciated. RESPIRATORY: No accessory muscle use. Clear to auscultation. Breath sounds equal bilaterally. GASTROINTESTINAL: Abdomen soft, nondistended. Diffuse tenderness to palpation. No rebound or guarding. MUSCULOSKELETAL: No obvious deformities. No clubbing. No cyanosis. No edema. NEUROLOGICAL: Awake and alert. No obvious cranial nerve deficits. Motor grossly within normal limits. Normal speech. PSYCHIATRIC: Appropriate mood and affect; insight and judgment normal. Data Data Last Documented VS Vital Signs Date Time Temp Pulse Resp B/P (MAP) Pulse Ox O2 Delivery O2 Flow Rate FiO2 05/12/17 21:00 100 20 145/65 (91) 100 Room Air 05/12/17 19:41 99.5 Orders Orders Complete Blood Count With Diff (05/12/17 19:46) Comprehensive Metabolic Panel (05/12/17 19:46) Lactic Acid (05/12/17 19:46) Prothrombin Time / Inr (Pt) (05/12/17 19:46) Act Partial Throm Time (Ptt) (05/12/17 19:46) Urinalysis - C+S If Indicated (05/12/17 19:46) Ct Abd/Pel W Iv Contrast(Rout) (05/12/17 19:46) Iv Access Insert/Monitor (05/12/17 19:46) Ecg Monitoring (05/12/17 19:46) Oximetry (05/12/17 19:46) Morphine Inj (Morphine Inj) (05/12/17 20:00) Ondansetron Inj (Zofran Inj) (05/12/17 20:00) Sodium Chlor 0.9% 1000 Ml Inj (Ns 1000 M (05/12/17 19:46) Sodium Chloride 0.9% Flush (Ns Flush) (05/12/17 20:00) C Diff Toxin Pcr (05/12/17 21:06) Iohexol 350 Inj (Omnipaque 350 Inj) (05/12/17 21:58) Ciprofloxacin 400 Mg Premix (Cipro 400 M (05/12/17 22:30) Metronidazole 500 Mg Inj (Flagyl 500 Mg (05/12/17 22:30) Admit Order (Ed Use Only) (05/12/17 ) Labs Laboratory Tests Test 05/12/17 20:20 White Blood Count 4.2 TH/MM3 Red Blood Count 2.81 MIL/MM3 Hemoglobin 9.3 GM/DL Hematocrit 27.5 % Mean Corpuscular Volume 97.7 FL Mean Corpuscular Hemoglobin 33.1 PG Mean Corpuscular Hemoglobin Concent 33.9 % Red Cell Distribution Width 16.9 % Platelet Count 211 TH/MM3 Mean Platelet Volume 10.3 FL CBC Comment AUTO DIFF Differential Total Cells Counted 100 Neutrophils % (Manual) 42 % Band Neutrophils % 36 % Lymphocytes % 5 % Monocytes % 14 % Eosinophils % 2 % Neutrophils # (Manual) 3.3 TH/MM3 Myelocytes 1 % Differential Comment FINAL DIFF MANUAL Toxic Granulation 2+ Toxic Vacuolation PRESENT Dohle Bodies PRESENT Platelet Estimate NORMAL Platelet Morphology Comment ENLARGED Prothrombin Time 12.7 SEC Prothromb Time International Ratio 1.1 RATIO Activated Partial Thromboplast Time 27.5 SEC Blood Urea Nitrogen 13 MG/DL Creatinine 0.92 MG/DL Random Glucose 88 MG/DL Total Protein 9.8 GM/DL Albumin 2.0 GM/DL Calcium Level 8.2 MG/DL Alkaline Phosphatase 93 U/L Aspartate Amino Transf (AST/SGOT) 42 U/L Alanine Aminotransferase (ALT/SGPT) 18 U/L Total Bilirubin 0.7 MG/DL Sodium Level 137 MEQ/L Potassium Level 3.5 MEQ/L Chloride Level 108 MEQ/L Carbon Dioxide Level 22.4 MEQ/L Anion Gap 7 MEQ/L Estimat Glomerular Filtration Rate 77 ML/MIN Lactic Acid Level 1.9 mmol/L [facility] Medical Decision Making Medical Screen Exam Complete: Yes Emergency Medical Condition: Yes Medical Record Reviewed: Yes Differential Diagnosis C. difficile versus colitis versus dehydration versus electrolyte abnormality Narrative Course Patient is a 52-year-old female with history of AIDS, comes in complaining of abdominal pain and diarrhea. Exam shows diffuse abdominal pain. IV established , labs sent. CT abdomen and pelvis shows colitis. Patient has a temp of 99.5. Patient given Cipro and Flagyl. Will be admitted due to immunocompromise state as well as continued abdominal pain. She was given IV fluids, morphine, Zofran. Diagnosis Primary Impression: Colitis Condition: Stable Martina Hassan MD May 12, 2017 21:04
[2017-05-12 21:12] LABS: HEMO FLAGS AUTO DIFF
[2017-05-12 21:18] LABS: ALT (GPT) 18 U/L (10-53)
[2017-05-12 21:20] LABS: ALKALINE PHOSPHATASE 93 U/L (45-117); TOTAL BILIRUBIN ADULT 0.7 MG/DL (0.2-1.0)
[2017-05-12 21:23] LABS: INTERNATIONAL NORMALIZED RATIO 1.1 RATIO; PROTHROMBIN TIME - PATIENT 12.7 SEC (9.8-11.6)
[2017-05-12 21:27] LABS: ANION GAP 7 MEQ/L (5-15); AST (GOT) 42 U/L (15-37); BICARBONATE 22.4 MEQ/L (21.0-32.0); BLOOD UREA NITROGEN 13 MG/DL (7-18); CHLORIDE 108 MEQ/L (98-107); GLOMERULAR FILTRATION RATE 77 ML/MIN (>89); SODIUM (NA) 137 MEQ/L (136-145)
[2017-05-12 21:28] LABS: APTT (PATIENT) 27.5 SEC (24.3-30.1)
[2017-05-12 21:30] LABS: POTASSIUM 3.5 MEQ/L (3.5-5.1)
[2017-05-12] MEDS ORDERED: IOHEXOL 350 MG/ML 10 ML VIAL (for RAD DIAG) IVCONTRAST ONE (21:58)
[2017-05-12 22:08] LABS: BANDS 36 % (0-6); EOSINOPHILS 2 % (0-4); MYELOCYTES 1 % (0-0); NEUTROPHIL # MANUAL DIFF 3.3 TH/MM3 (1.8-7.7); POLYS (SEG NEUTROPHILS) 42 % (16-70); SCAN/DIFF FINAL DIFF MANUAL; WBC DIFF SAMPLE 100
[2017-05-12 22:09] LABS: DOHLE BODIES PRESENT (NONE SEEN); PLATELET ESTIMATE SMEAR NORMAL (NORMAL); PLATELET MORPHOLOGY ENLARGED (NORMAL); TOXIC GRANULATION 2+ (NORMAL); TOXIC VACUOLATION PRESENT (NONE SEEN)
--- NOTE | 2017-05-12 22:14 | RADRPT ---
EXAM DATE/TIME: 05/12/2017 21:45 [facility] COMPARISON: CT ABDOMEN & PELVIS W CONTRAST, April 26, 2017, 20:08. US ABDOMEN - COMPLETE, April 27, 2017, 9: 03. US ABDOMEN - LOWER LIMITED, April 27, 2017, 13:46. INDICATIONS : Abdominal pain with nausea and vomiting. IV CONTRAST: 75 cc Omnipaque 350 (iohexol) IV ORAL CONTRAST: No oral contrast ingested. RADIATION DOSE: 6.64 CTDIvol (mGy) MEDICAL HISTORY : Seizures. Cirrhosis. CVA. Diabetes. Ovarian cysts. HIV. SURGICAL HISTORY : section. ENCOUNTER: Initial ACUITY: 1 week PAIN SCALE: 9/10 LOCATION: Abdomen. TECHNIQUE: Volumetric scanning of the abdomen and pelvis was performed. Using automated exposure control and ad justment of the mA and/or kV according to patient size, radiation dose was kept as low as reasonably achievable to obtain optimal diagnostic quality images. DICOM format image data is available electro nically for review and comparison. FINDINGS: The bony structures remain intact with a vague area of density in the left lower lobe which may repre sent scarring . Patient demonstrates somewhat enlarged nodular margins liver suggesting hepatocellula r disease and there are varices noted in the upper abdomen. Contrast is noted to the rectosigmoid bow el and there is suggestion of possible somewhat lobular bowel wall thickening of the mid to proximal sigmoid colon which could represent colitis. Direct visualization is worthy of consideration with sig moidoscopy colonoscopy. Mildly prominent inguinal femoral lymph nodes are unchanged CONCLUSION: Persistent findings consistent with cirrhosis hepatocellular disease and varices. Portal venous syste m is patent. Atelectasis or scarring in the left lower lobe persists. abnormal appearance of the mid and proximal sigmoid colon with somewhat lobular internal mucosa and possible bowel wall thickening suggesting the possibility of in flammatory process or colitis. Clinical correlation recommended and directly visualization if warrant ed with sigmoidoscopy or colonoscopy should be considered Ross Green MD on May 12, 2017 at 22:06 Board Certified Radiologist. This report was verified electronically.
[2017-05-12] MEDS ORDERED: metroNIDAZOLE 500 MG INJ 100 ML IV ONE (22:30)
[2017-05-12] MEDS ORDERED: CIPROFLOXACIN 400 MG PREMIX 200 ML IV ONE (22:30)
[2017-05-12 23:30] VITALS: BP 136/69; PULSE 98; RESP 22; O2SAT 100
[2017-05-13] VITALS (10 sets, daily range): BP systolic 99–136; BP diastolic 52–66; PULSE 99–109; RESP 17–21; TEMP 98.7–104.2; O2SAT 94–100
[2017-05-13] MEDS: SODIUM CHLORIDE 0.9% FLUSH 10 ML FLUSH IV FLUSH PRN (00:03)
--- NOTE | 2017-05-13 00:11 | HHI.HP ---
[facility] Service Family Medicine Primary Care Physician Jeremiah Garcia MD Admission Diagnosis colitis, immunodeficiency Diagnoses: International Travel<30 Days: No Contact w/Intl Traveler<30days: No Known Affected Area: No History of Present Illness 52 y/o female with PMHx of AIDs presenting with 1 month of diarrhea. She reports having about 5-6 watery BMs daily for the past month. She reports her bowel movements as being watery, and clear. She denies any blood with her bowel movements. She denies eating any food, or bad tasting food. However, new this week, has been increasing abdominal pain. The pain started gradually and has gotten worse throughout the week. It is located over the epigastrium, described as a sharp 10 out of 10 pain, that radiates into her sides. Sitting up in bed and eating makes the pain worse. Nothing makes her stomach pain better. She also has been having constant chest pain for about a week. This chest pain comes and goes and is not related to exertion. She denies any fevers or chills. She denies any problems or difficulty with urination. She denies a new cough. (Mateusz Coats MD, R3) Review of Systems Constitutional: COMPLAINS OF: Weight loss, DENIES: Diaphoretic episodes, Fatigue, Fever Respiratory: DENIES: Cough, Sputum production Cardiovascular: COMPLAINS OF: Chest pain, DENIES: Palpitations, Dyspnea on Exertion Gastrointestinal: COMPLAINS OF: Abdominal pain, Diarrhea, Nausea, DENIES: Black stools, Bloody stools, Constipation, Vomiting, Difficulty Swallowing Musculoskeletal: DENIES: Joint pain, Back pain Psychiatric: DENIES: Confusion (Mateusz Coats MD, R3) Past Family Social History Past Medical History Denies any illnesses HIV/AIDS Past Surgical History Denies any surgeries (Mateusz Coats MD, R3) Allergies: Coded Allergies: No Known Allergies (Verified , 04/26/17) Family History No family history of inflammatory bowel disease or cancer. Mother - passed at age 58, EtOH abuse Father - passed in his 60s from toe nail infection, ? DM Brothers / sisters - no diseases that are known to her. Social History Denies tob use 1 can of beer "every now and then" Denies illicit drug use Lives with nephew, boyfriend, and several others in small house. (Mateusz Coats MD, R3) Physical Exam Vital Signs Vital Signs Date Time Temp Pulse Resp B/P (MAP) Pulse Ox O2 Delivery O2 Flow Rate FiO2 05/12/17 19:41 99.5 05/12/17 19:23 99 18 126/57 (80) 99 Room Air Physical Exam GENERAL: Severely cachectic, dry mucous membranes, poorly groomed. SKIN: Multiple flat macules, that are hyperpigmented on all extremities. HEAD: Atraumatic. Normocephalic. EYES: Pupils equal round and reactive. Extraocular motions intact. No scleral icterus. No injection or drainage. ENT: Dentures in place, no pharyngeal erythema or exudates. NECK: Trachea midline. No JVD or lymphadenopathy. CARDIOVASCULAR: Sinus tachycardia, 2/6 systolic ejection murmur. No pitting edema in lower extremities. RESPIRATORY: Poor inspiratory effort, faint crackles throughout. GASTROINTESTINAL: Slightly distended, bowel sounds present, tender to deep palpation in the left lower and right upper quadrants. Voluntary guarding. No rebound tenderness. MUSCULOSKELETAL: NEUROLOGICAL: Awake and alert. Cranial nerves II through XII intact. Motor and sensory grossly within normal limits. Five out of 5 muscle strength in all muscle groups. Normal speech. Laboratory Laboratory Tests Test 05/12/17 20:20 White Blood Count 4.2 Red Blood Count 2.81 Hemoglobin 9.3 Hematocrit 27.5 Mean Corpuscular Volume 97.7 Mean Corpuscular Hemoglobin 33.1 Mean Corpuscular Hemoglobin Concent 33.9 Red Cell Distribution Width 16.9 Platelet Count 211 Mean Platelet Volume 10.3 CBC Comment AUTO DIFF Differential Total Cells Counted 100 Neutrophils % (Manual) 42 Band Neutrophils % 36 Lymphocytes % 5 Monocytes % 14 Eosinophils % 2 Neutrophils # (Manual) 3.3 Myelocytes 1 Differential Comment FINAL DIFF MANUAL Toxic Granulation 2+ Toxic Vacuolation PRESENT Dohle Bodies PRESENT Platelet Estimate NORMAL Platelet Morphology Comment ENLARGED Prothrombin Time 12.7 Prothromb Time International Ratio 1.1 Activated Partial Thromboplast Time 27.5 Blood Urea Nitrogen 13 Creatinine 0.92 Random Glucose 88 Total Protein 9.8 Albumin 2.0 Calcium Level 8.2 Alkaline Phosphatase 93 Aspartate Amino Transf (AST/SGOT) 42 Alanine Aminotransferase (ALT/SGPT) 18 Total Bilirubin 0.7 Sodium Level 137 Potassium Level 3.5 Chloride Level 108 Carbon Dioxide Level 22.4 Anion Gap 7 Estimat Glomerular Filtration Rate 77 Lactic Acid Level 1.9 (Mateusz Coats MD, R3) Result Diagram: 05/12/17201905/12/172019 Imaging Last 72 hours Impressions Abdomen/Pelvis CT 05/12/171945 Signed Impressions: Service Date/Time: , May 12, 2017 21:45 - CONCLUSION: Persistent findings consistent with cirrhosis hepatocellular disease and varices. Portal venous system is patent. Atelectasis or scarring in the left lower lobe persists. abnormal appearance of the mid and proximal sigmoid colon with somewhat lobular internal mucosa and possible bowel wall thickening suggesting the possibility of inflammatory process or colitis. Clinical correlation recommended and directly visualization if warranted with sigmoidoscopy or colonoscopy should be considered Ross Green MD (Mateusz Coats MD, R3) Septic Shock Reassessment Heart: Regular rate and rhythm Lungs: Course, Crackles Skin: Warm (Mateusz Coats MD, R3) Caprini VTE Risk Assessment Caprini VTE Risk Assessment: Mod/High Risk (score >= 2) Caprini Risk Assessment Model Point Value = 1 Point Value = 2 Point Value = 3 Point Value = 5 Age 41-60 Minor surgery BMI > 25 kg/m2 Swollen legs Varicose veins or History of unexplained or recurrent spontaneous Oral contraceptives or hormone replacement Sepsis (< 1 month) Serious lung disease, including pneumonia (< 1 month) Abnormal pulmonary function Acute myocardial infarction Congestive heart failure (< 1 month) History of inflammatory bowel disease Medical patient at bed rest Age 61-74 Arthroscopic surgery Major open surgery (> 45 min) Laparoscopic surgery (> 45 min) Malignancy Confined to bed (> 72 hours) Immobilizing plaster cast Central venous access Age >= 75 History of VTE Family history of VTE Factor V Leiden Prothrombin [id number] Lupus anticoagulant Anticardiolipin antibodies Elevated serum homocysteine Heparin-induced thrombocytopenia Other congenital or acquired thrombophilia Stroke (< 1 month) Elective arthroplasty Hip, pelvis, or leg fracture Acute spinal cord injury (< 1 month) Prophylaxis Regimen Total Risk Factor Score Risk Level Prophylaxis Regimen 0-1 Low Early ambulation 2 Moderate Order ONE of the following: *Sequential Compression Device (SCD) *Heparin 5000 units SQ BID 3-4 Higher Order ONE of the following medications: *Heparin 5000 units SQ TID *Enoxaparin/Lovenox 40 mg SQ daily (WT < 150 kg, CrCl > 30 mL/min) *Enoxaparin/Lovenox 30 mg SQ daily (WT < 150 kg, CrCl > 10-29 mL/min) *Enoxaparin/Lovenox 30 mg SQ BID (WT < 150 kg, CrCl > 30 mL/min) AND/OR *Sequential Compression Device (SCD) 5 or more Highest Order ONE of the following medications: *Heparin 5000 units SQ TID (Preferred with Epidurals) *Enoxaparin/Lovenox 40 mg SQ daily (WT < 150 kg, CrCl > 30 mL/min) *Enoxaparin/Lovenox 30 mg SQ daily (WT < 150 kg, CrCl > 10-29 mL/min) *Enoxaparin/Lovenox 30 mg SQ BID (WT < 150 kg, CrCl > 30 mL/min) AND *Sequential Compression Device (SCD) (Mateusz Coats MD, R3) Assessment and Plan Assessment and Plan Mrs. Helm is a 52-year-old female, with a past medical history significant for HIV, with this recent CD4 count less than 20, being admitted for likely infectious colitis. Problem #1: Abdominal pain/diarrhea Likely secondary to infectious colitis. CT of abdomen with IV contrast was significant for "abnormal appearance of the mid and proximal sigmoid colon with somewhat lobular internal mucosa and possible bowel wall thickening." PLAN: We'll treat with metronidazole 500 mg every 6 hours, ciprofloxacin 400 mg q 12 hours. Serial abdominal exams. IVF at maintenance. Stool cultures including crypto, CMV, ova and parasite, ABF cx, and c diff. Blood cx x 2. Zofran prn nausea vomiting. Protonix IV 40 mg q 24 Pain control with percocet 5-325 mg pain 1-5, percocet 10-325 pain 6-10, and morphine 4 mg prn breakthrough. Problem # 2: AIDS CD4 count < 20 on 03/29/17. Consult infectious disease to assist in management of acute infectious process. We appreciate their advice and expertise. Problem # 3: FEN DVT ppx: Lovenox 40 units daily GI ppx: IV Protonix as above Fluids: NS at 100 ml/hr Nutrition: regular diet wdw with Medical team in AM. Code Status Full code. Discussed Condition With Seen and discussed with Dr. Merchant. (Mateusz Coats MD, R3) Attending Attestation THIS CASE WAS DISCUSSED WITH THE RESIDENT PHYSICIANS. I HAVE REVIEWED THE RECORD AND AGREE WITH THE ABOVE NOTE AND PLAN OF CARE WAS DISCUSSED. I HAVE AUTHORIZED THE ORDER FOR ADMISSION TO AN IN-PATIENT STATUS. Patient was notably improved in symptoms since her admission. She states she feels much better after the IVF. She denies recent sick contacts but she lives in a home with more than 10 people. DW pt her retroviral use and failure to take her antibiotics from the prior hospitalization. She states she just does not like the way she feels on medications. Her level of health literacy about her health and her disease process is pretty poor. Suspect C.dif infection but the differential is broad based on her severe compromised immune status. She was placed on cipro/flagyl at admission but since she has a significant murmur on cardiac exam will also add vanc for possible endocarditis and check echo. Will check quantiferon as well. Her prognosis is guarded due to her immune compromised state. Will continue with workup and ask ID for assistance with the evaluation and treatment of this patient. 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 In the case of services not specified as inpatient-only, they are appropriately provided as inpatient services in accordance with the 2-midnight benchmark. Estimated LOS (days): 2 2 days is the estimated time the patient will need to remain in the hospital, assuming treatment plan goals are met and no additional complications. Post-Hospital Plan: Home (Mateusz Coats MD, R3) 2 Midnight Certification Type: Admission for Inpatient Services Post-Hospital Plan: Home (Emerald Acosta MD) Mateusz Coats MD, R3 May 13, 2017 00:11 Emerald Acosta MD May 13, 2017 12:34
[2017-05-13] MEDS ORDERED: SODIUM CHLORIDE 0.9% FLUSH 10 ML FLUSH IV FLUSH PRN ×2 (00:15→09:30)
[2017-05-13] MEDS ORDERED: MAGNESIUM HYDROXIDE SUSP 30 ML CUP PO PRN (01:00)
[2017-05-13] MEDS ORDERED: SENNOSIDES 8.6 MG TAB PO PRN (01:00)
[2017-05-13] MEDS ORDERED: NALOXONE HCL 0.4 MG/ML AMP IV PUSH PRN (01:00)
[2017-05-13] MEDS ORDERED: BISACODYL 10 MG SUPP RECTAL PRN (01:00)
[2017-05-13] MEDS ORDERED: ONDANSETRON HCL 4 MG/2 ML VIAL IVP PRN (01:00)
[2017-05-13] MEDS ORDERED: LACTULOSE SYRUP 20 GM/30 ML CUP PO PRN (01:00)
[2017-05-13] MEDS ORDERED: ZOLPIDEM TARTRATE 5 MG TAB PO PRN (01:00)
--- NOTE | 2017-05-13 01:32 | RADRPT ---
EXAM DATE/TIME: 05/13/2017 01:04 [facility] COMPARISON: CHEST SINGLE AP, April 26, 2017, 17:27. INDICATIONS : Short of breath. MEDICAL HISTORY : Seizures. Cirrhosis. CVA. Diabetes. Ovarian cysts. HIV. SURGICAL HISTORY : section. ENCOUNTER: Initial ACUITY: 1 week PAIN SCORE: 10/10 LOCATION: Bilateral chest FINDINGS: A single view of the chest demonstrates the lungs to be symmetrically aerated without evidence of mas s, infiltrate or effusion. The cardiomediastinal contours are unremarkable. Osseous structures are intact. CONCLUSION: No acute disease. Grant Villasenor MD on May 13, 2017 at 1:30 Board Certified Radiologist. This report was verified electronically.
[2017-05-13] MEDS ORDERED: ACETAMINOPHEN 1000 MG/100 ML 65 ML IV ONE (02:00)
[2017-05-13] MEDS: SODIUM CHLOR 0.9% 1000 ML INJ 1,000 ML IV SCH ×2 (02:26→08:59)
[2017-05-13 02:49] LABS: C. DIFF EPI 027 PRESUMPTIVE POSITIVE (NEGATIVE)
[2017-05-13] MEDS ORDERED: metroNIDAZOLE 500 MG INJ 100 ML IV SCH (06:00)
[2017-05-13] MEDS: PANTOPRAZOLE SODIUM 40 MG VIAL IV PUSH SCH (06:07)
[2017-05-13] MEDS ORDERED: metroNIDAZOLE 500 MG TAB PO SCH (06:15)
[2017-05-13] MEDS ORDERED: SODIUM CHLORID 0.9% 500 ML INJ 500 ML IV ONE (07:15)
[2017-05-13] MEDS ORDERED: SODIUM CHLORIDE 0.9% FLUSH 10 ML FLUSH IV FLUSH SCH (09:00)
[2017-05-13] MEDS ORDERED: DOCUSATE SODIUM 50 MG/SENNA 8.6 MG TAB PO SCH (09:00)
[2017-05-13] MEDS: ENOXAPARIN SODIUM 40 MG/0.4 ML SYRINGE SQ SCH (09:04)
[2017-05-13] MEDS ORDERED: LORazepam 2 MG/ML VIAL IV PUSH PRN ×4 (09:30)
[2017-05-13] MEDS ORDERED: FLUMAZENIL 0.5 MG/5 ML VIAL IV PUSH PRN (09:30)
[2017-05-13] MEDS ORDERED: LORazepam 2 MG TAB PO PRN (09:30)
[2017-05-13] MEDS ORDERED: LORazepam 1 MG TAB PO PRN (09:30)
[2017-05-13 10:23] LABS: AUTOMATED NEUTROPHIL # 3.8 TH/MM3 (1.8-7.7); EOSINOPHIL # 0.1 TH/MM3 (0-0.4); EOSINOPHIL % 1.4 % (0.0-4.0); HEMATOCRIT 24.4 % (35.0-46.0); HEMO FLAGS DIFF FINAL; LYMPH % 5.5 % (9.0-44.0); LYMPHOCYTE # 0.3 TH/MM3 (1.0-4.8); MEAN CELL VOLUME 98.5 FL (80.0-100.0); MEAN CORPUSCULAR HEMOGLOBIN 33.4 PG (27.0-34.0); MEAN CORPUSCULAR HGB CONC 33.9 % (32.0-36.0); NEUT % 79.1 % (16.0-70.0); PLATELET COUNT 146 TH/MM3 (150-450); RED BLOOD COUNT 2.48 MIL/MM3 (4.00-5.30); RED CELL DISTRIBUTION WIDTH 16.7 % (11.6-17.2); WHITE BLOOD COUNT 4.8 TH/MM3 (4.0-11.0)
[2017-05-13] MEDS ORDERED: MORPHINE SULFATE 4 MG/ML INJ IV PUSH PRN (10:45)
[2017-05-13] MEDS ORDERED: Vancomycin Consult Pharmacy 1 EA OTHER SCH (10:45)
[2017-05-13 11:02] LABS: POTASSIUM 3.1 MEQ/L (3.5-5.1); TOTAL BILIRUBIN ADULT 0.6 MG/DL (0.2-1.0)
[2017-05-13 11:06] LABS: CALCIUM-PROTEIN CORRECTED 6.8 MG/DL (8.5-10.1)
[2017-05-13] MEDS ORDERED: CIPROFLOXACIN 400 MG PREMIX 200 ML IV SCH (12:00)
[2017-05-13 12:07] LABS: LACTIC ACID GHOST NOT REPORTABLE
[2017-05-13] MEDS: THIAMINE INJ 100 MG in SODIUM CHLORIDE 0.9% INJ 100 ML IV SCH (12:39)
[2017-05-13] MEDS: MULTIVITAMIN INJ 10 ML, FOLIC ACID INJ 1 MG in SODIUM CHLORID 0.9% 500 ML INJ 500 ML IV SCH (12:41)
[2017-05-13] MEDS ORDERED: VANCOMYCIN INJ 950 MG in SODIUM CHLOR 0.9% 250 ML INJ 250 ML IV SCH (13:00)
--- NOTE | 2017-05-13 13:13 | MB ---
cc: MURIEL MARIN MD,JANET Houser MD DATE OF CONSULTATION: 05/13/[address] Coats. REASON FOR CONSULTATION Severe colitis. CD4 count less than 20. HISTORY OF PRESENT ILLNESS This is a 52-year-old black female who has AIDS. The patient had been admitted to this hospital recently on several occasions and has had C. difficile colitis diagnosed on the last two hospitalizations. She has been treated with medication for C. difficile colitis and despite that she has had refractory diarrhea. She had positive C. difficile toxin on February 04, 2017, March 24, 2017, March 27, 2017, and now again C. difficile toxin is positive. She had diarrhea. She states that she gets two bouts of diarrhea on a daily basis. The patient was recently discharged from the hospital on April 29 and she states that the diarrhea never improved and she started having worse abdominal pain and she presented to the emergency department. She describes abdominal pain being 10/10. She also states that she was having episodes of vomiting yesterday. She is followed for HIV disease at the [facility] and tells me that she has been taking the medications as prescribed by her caregiver there. Stool for ova and parasites has been ordered. The stool sample reveals many white cells. PAST MEDICAL HISTORY 1. AIDS. 2. Depression. 3. Cerebrovascular accident. 4. Diabetes mellitus. 5. History of . 6. Colonic polyps. 7. Esophageal stricture. 8. History of pancreatitis. 9. History of cirrhosis. ALLERGIES No known drug allergies. MEDICATIONS 1. Vancomycin. 2. Ciprofloxacin. 3. Metronidazole. 4. Protonix. 5. Lovenox. 6. [place] 5, p.r.n. 7. Os-[place]son. 8. Potassium. 9. Vitamin-B1. SOCIAL HISTORY Occasional alcohol. No tobacco. Denies substance abuse. FAMILY HISTORY Noncontributory. REVIEW OF SYSTEMS Significant for nausea and vomiting, diarrhea, abdominal pain, generalized fatigue, occasional headaches. PHYSICAL EXAMINATION GENERAL: This is a frail thin female who is in no acute distress. She appears somewhat cachectic. VITAL SIGNS: Temperature 100.8, BP 108/57, respirations 17, heart rate 109. HEENT: The head is atraumatic. Extraocular movements grossly intact. Pupils reactive to light. Sclera is pale. Oropharynx has slightly dry mucosa, no thrush. NECK: Supple. No adenopathy or JVD. LUNGS: Decreased breath sounds bilateral. HEART: Regular S1, S2. ABDOMEN: Bowel sounds present but diminished. Soft. Mild tenderness to palpation of the mid abdomen. RECTAL: Not performed. EXTREMITIES: No clubbing, cyanosis or edema. Muscle wasting is apparent. NEUROLOGIC: No gross focal findings. SKIN: No rash. NEUROLOGIC: The patient is calm and cooperative. LABORATORY WBC 4.8, platelets 146, hemoglobin 8.3, 79% neutrophils. Creatinine 1.0, BUN 13, sodium 140. Liver function tests normal. IMPRESSION 1. Severe C. difficile colitis, recurrent. 2. Bandemia and fever. 3. AIDS, being treated with HAART. 4. Ongoing diarrhea secondary to C. difficile. RECOMMENDATIONS 1. Discontinue Flagyl. 2. Discontinue vancomycin. 3. Begin Dificid. 4. Monitor the temperature. 5. Monitor the clinical response and diarrhea. Thank you for this consultation. The patient's progress will be monitored and further recommendations will be given upon follow-up. I will try to avoid unnecessary additional antibiotics on this patient. Muriel Marin MD FD/IVAN /12:32 PM /12:58 PM
[2017-05-13] MEDS ORDERED: CALCIUM CARBONATE 1.25 GM (CA 500 MG) TAB PO ONE (13:15)
[2017-05-13] MEDS ORDERED: POTASSIUM CHLORIDE 10 MEQ CONTROLLED RELEASE TAB PO ONE (13:30)
[2017-05-13] MEDS: ACETAMINOPHEN/HYDROcodone 325 MG/5 MG TAB PO PRN ×2 (14:03→20:28)
[2017-05-13 16:32] LABS: HEMATOCRIT 24.9 % (35.0-46.0); MEAN CELL VOLUME 98.8 FL (80.0-100.0); MEAN CORPUSCULAR HGB CONC 32.4 % (32.0-36.0); PLATELET COUNT 154 TH/MM3 (150-450); RED BLOOD COUNT 2.52 MIL/MM3 (4.00-5.30); RED CELL DISTRIBUTION WIDTH 16.7 % (11.6-17.2); WHITE BLOOD COUNT 7.3 TH/MM3 (4.0-11.0)
[2017-05-13 16:35] LABS: HEMO FLAGS AUTO DIFF
[2017-05-13] MEDS ORDERED: SODIUM CHLOR 0.9% 1000 ML INJ 1,000 ML IV ONE (16:45)
[2017-05-13 17:22] LABS: BANDS 47 % (0-6); CORRECTED NUCLEATED RBC 1 /100 WBC (0-0); METAMYELOCYTES 5 % (0-1); MYELOCYTES 2 % (0-0); NEUTROPHIL # MANUAL DIFF 6.9 TH/MM3 (1.8-7.7); POLYS (SEG NEUTROPHILS) 40 % (16-70); WBC DIFF SAMPLE 100
[2017-05-13 17:23] LABS: PLATELET ESTIMATE SMEAR NORMAL (NORMAL); PLATELET MORPHOLOGY NORMAL (NORMAL); SCAN/DIFF FINAL DIFF MANUAL
[2017-05-13 17:24] LABS: DOHLE BODIES PRESENT (NONE SEEN); OVALOCYTES 1+ (NORMAL); TOXIC GRANULATION 1+ (NORMAL); TOXIC VACUOLATION PRESENT (NONE SEEN)
[2017-05-13] MEDS: FIDAXOMICIN 200 MG TAB PO SCH (20:25)
[2017-05-13] MEDS: SODIUM CHLORIDE 0.9% FLUSH 10 ML FLUSH IV FLUSH SCH (21:00)
[2017-05-13 21:30] LABS: LACTIC ACID GHOST NOT REPORTABLE
[2017-05-14] VITALS (8 sets, daily range): BP systolic 90–113; BP diastolic 49–59; PULSE 77–106; RESP 20; TEMP 97.5–99.8; O2SAT 96–100
[2017-05-14] MEDS: SODIUM CHLOR 0.9% 1000 ML INJ 1,000 ML IV SCH ×5 (00:20→22:33)
[2017-05-14] MEDS: ACETAMINOPHEN/HYDROcodone 325 MG/5 MG TAB PO PRN ×3 (03:02→20:28)
[2017-05-14] MEDS: PANTOPRAZOLE SODIUM 40 MG VIAL IV PUSH SCH (06:17)
[2017-05-14 07:06] LABS: HEMATOCRIT 22.3 % (35.0-46.0); MEAN CELL VOLUME 96.8 FL (80.0-100.0); MEAN CORPUSCULAR HEMOGLOBIN 32.6 PG (27.0-34.0); MEAN CORPUSCULAR HGB CONC 33.7 % (32.0-36.0); PLATELET COUNT 140 TH/MM3 (150-450); RED BLOOD COUNT 2.31 MIL/MM3 (4.00-5.30); RED CELL DISTRIBUTION WIDTH 16.3 % (11.6-17.2); WHITE BLOOD COUNT 6.3 TH/MM3 (4.0-11.0)
[2017-05-14 07:12] LABS: HEMO FLAGS AUTO DIFF
[2017-05-14 07:57] LABS: BANDS 36 % (0-6); NEUTROPHIL # MANUAL DIFF 5.8 TH/MM3 (1.8-7.7); PLATELET ESTIMATE SMEAR LOW (NORMAL); PLATELET MORPHOLOGY NORMAL (NORMAL); POLYS (SEG NEUTROPHILS) 56 % (16-70); SCAN/DIFF FINAL DIFF MANUAL; WBC DIFF SAMPLE 100
[2017-05-14 08:03] LABS: BICARBONATE 19.1 MEQ/L (21.0-32.0); POTASSIUM 3.1 MEQ/L (3.5-5.1)
[2017-05-14 08:28] LABS: CALCIUM-PROTEIN CORRECTED 6.4 MG/DL (8.5-10.1)
--- NOTE | 2017-05-14 08:52 | HHI.FPPN ---
Subjective Remarks No acute events overnight. Last fever of 101.2F yesterday at 13:40, has been afebrile since. BPs ranging 90s-110s/40s-50s over past 24 hours. Tachycardic in low 100s overnight, 80s-90s this AM. Patient states overall she feels better this morning. She states her abdominal pain is also improved but then states her pain is currently an 8/10. She also reports some pain on the lateral sides of her chest and states this seems to be worse with deep inspirations. She denies fevers, chills, night sweats, palpitations. 5 BMs noted. She states she does not feel like she has an appetite and states she did not eat anything yesterday. She states she will try something this morning and go slow with her diet. She says she has not been out of bed since being admitted. (Brian Girard MD R2) Objective Vitals Vital Signs Date Time Temp Pulse Resp B/P (MAP) Pulse Ox O2 Delivery O2 Flow Rate FiO2 05/14/17 08:00 97.6 85 20 101/53 (69) 97 05/14/17 08:00 90 05/14/17 05:23 98.1 94 20 102/51 (68) 98 05/14/17 02:04 98.4 95 97/56 (70) 96 05/14/17 01:11 99.8 106 20 90/49 (63) 96 05/13/17 21:23 101 05/13/17 21:03 99.0 99 20 108/57 (74) 98 05/13/17 15:59 98.8 105 17 108/52 (70) 94 05/13/17 13:40 101.2 05/13/17 12:06 100.8 109 17 108/57 (74) 96 I/O 05/13/17 05/13/17 05/13/17 05/14/17 05/14/17 05/14/17 07:00 15:00 23:00 07:00 15:00 23:00 Intake Total 240 ml 480 ml 240 ml Balance 240 ml 480 ml 240 ml Intake Oral 240 ml 480 ml 240 ml # Voids 1 1 2 1 # Bowel Movements 1 1 3 1 (Brian Girard MD R2) Result Diagram: 05/14/1716 10/21/17 0616 Objective Remarks GENERAL: Cachectic, NAD, lying in bed SKIN: Multiple flat macules, that are hyperpigmented on all extremities. HEAD: Atraumatic. Normocephalic. EYES: EOMI. No scleral icterus. No injection or drainage. ENT: Dentures in place, no pharyngeal erythema or exudates. NECK: Trachea midline. Supple. CHEST WALL: Tender to palpation in mid sternum and left-mid sternum CARDIOVASCULAR: RRR, 2/6 systolic ejection murmur best auscultated LUSB. No pitting edema in lower extremities. RESPIRATORY: Poor inspiratory effort, faint crackles bibasilar. GASTROINTESTINAL: nondistended, bowel sounds present, initially tender to moderate palpation in LUQ however later not tender in this area with continued palpation, nontender in lower quadrants. No guarding. No rebound tenderness. NEUROLOGICAL: Awake and alert. Cranial nerves grossly intact. Motor and sensory grossly within normal limits. Normal speech. (Brian Girard MD R2) A/P Assessment and Plan Epifanio Helm is a 52-year-old female with a past medical history significant for HIV and AIDS, with this recent CD4 count less than 20, admitted for C diff colitis. Problem #1: C diff colitis CT of abdomen with IV contrast was significant for "abnormal appearance of the mid and proximal sigmoid colon with somewhat lobular internal mucosa and possible bowel wall thickening." Harjinder C diff toxin PCR and 027 strain both positive PLAN: Infectious disease consulted, appreciate expertise, started patient on Fidaxomicin 200 mg po bid Vancomycin, Cipro, Flagyl discontinued per infectious disease Continue IVF 130 cc/hr Blood cultures from 05/13 still pending Stool cultures with many WBCs, no cyclospora, crypto pending, giardia pending, no AFB Zofran prn nausea or vomiting Protonix 40 mg IV q24, consider transition to oral soon Pain control with percocet 5-325 mg pain 1-5, percocet 10-325 pain 6-10, and morphine 4 mg prn breakthrough. Problem # 2: AIDS CD4 count < 20 on 03/29/17. Consult infectious disease to assist in management of acute infectious process Continue home HAART medications Problem # 3: Anemia Hgb 7.5 this AM from 9.3 on admission slowly downtrending Consider due to dilutional anemia MCV normal Will repeat this afternoon Type and cross and transfuse 1 unit PRBCs if Hgb < 7.0 Consider further workup if Hgb continues to downtrend Problem # 4: Heart murmur 2D echo ordered to rule out endocarditis Patient would need Vancomycin and input from infectious disease specialist if vegetations found on echo Problem # 5: Chest Wall Pain Will obtain D-dimer to rule out pulmonary emboli Obtain troponin however suspicion for ACS is low at this time Consider costochondritis as patient with obvious chest wall pain on palpation Would treat with Tylenol at this time and not NSAIDs Patient has [place] 5/325 available prn pain 1-5 Problem # 6: Hypokalemia K+ 3.1 this AM, Mg 1.5 Repleted K and Mg orally Likely having K losses due to diarrhea Continue to monitor electrolytes and replete as needed Problem # 7: Hypocalcemia Calcium and PCC both 6.4 this AM Replete with 1gm oral calcium carbonate this AM Continue to monitor Problem # 8: Malnutrition Appreciate manager architectural consult Ensure/boost shakes with each meal Problem # 9: FEN, PPX DVT ppx: Lovenox 40 units daily, OOB at least TID with nursing assistance GI ppx: IV Protonix as above Fluids: NS at 130 ml/hr Electrolytes: plan as above, continue to monitor Nutrition: regular diet with ensure or boost shakes with each meal, manager architectural consult appreciated Discharge Planning Unclear timetable at this time Pending clinical improvement and further studies Infectious Disease following (Brian Girard MD R2) Attending Attestation Patient seen and examined. Case reviewed and discussed with the resident team. Agree with plan of care as discussed with me and documented in the resident note. 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 ICD Codes: B20 - Human immunodeficiency virus [HIV] disease Status: Chronic (3) Hypocalcemia ICD Codes: E83.51 - Hypocalcemia Status: Resolved (4) Hypokalemia ICD Codes: E87.6 - Hypokalemia Status: Acute (5) Cardiac murmur ICD Codes: R01.1 - Cardiac murmur, unspecified (6) Anemia ICD Codes: D64.9 - Anemia, unspecified (7) Malnutrition ICD Codes: E46 - Unspecified protein-calorie malnutrition Status: Chronic (8) Nutrition, metabolism, and development symptoms ICD Codes: R63.8 - Other symptoms and signs concerning food and fluid intake Status: Acute (Brian Girard MD R2) Brian Girard MD R2 May 14, 2017 08:52 Emerald Acosta MD May 15, 2017 09:01
[2017-05-14] MEDS: SODIUM CHLORIDE 0.9% FLUSH 10 ML FLUSH IV FLUSH SCH ×2 (09:00→20:30)
[2017-05-14] MEDS ORDERED: POTASSIUM CHLORIDE 10 MEQ CONTROLLED RELEASE TAB PO ONE (09:00)
[2017-05-14] MEDS: FIDAXOMICIN 200 MG TAB PO SCH ×2 (09:43→20:29)
[2017-05-14] MEDS: ENOXAPARIN SODIUM 40 MG/0.4 ML SYRINGE SQ SCH (09:44)
[2017-05-14] MEDS: NON-FORMULARY DRUG (Darunavir-Cobicistat (Prezcobix) 1 TAB) PO SCH (09:50)
[2017-05-14] MEDS: NON-FORMULARY DRUG (Abacavir-Dolutegravir-Lamivudine (Triumeq) 1 TAB) PO SCH (09:50)
[2017-05-14 09:59] LABS: MAGNESIUM 1.5 MG/DL (1.5-2.5)
[2017-05-14] MEDS ORDERED: MAGNESIUM OXIDE 400 MG TAB PO ONE (11:00)
[2017-05-14] MEDS ORDERED: CALCIUM CARBONATE 1.25 GM (CA 500 MG) TAB PO ONE (11:00)
[2017-05-14 13:28] LABS: AUTOMATED NEUTROPHIL # 4.7 TH/MM3 (1.8-7.7); BASOPHIL # 0.1 TH/MM3 (0-0.2); BASOPHIL % 0.9 % (0.0-2.0); EOSINOPHIL # 0.3 TH/MM3 (0-0.4); EOSINOPHIL % 4.4 % (0.0-4.0); HEMATOCRIT 23.7 % (35.0-46.0); HEMO FLAGS DIFF FINAL; LYMPH % 9.2 % (9.0-44.0); LYMPHOCYTE # 0.6 TH/MM3 (1.0-4.8); MEAN CELL VOLUME 96.5 FL (80.0-100.0); MEAN CORPUSCULAR HGB CONC 34.2 % (32.0-36.0); MONO % 7.3 % (0.0-8.0); NEUT % 78.2 % (16.0-70.0); PLATELET COUNT 128 TH/MM3 (150-450); RED BLOOD COUNT 2.45 MIL/MM3 (4.00-5.30); RED CELL DISTRIBUTION WIDTH 16.8 % (11.6-17.2)
[2017-05-14] MEDS: THIAMINE INJ 100 MG in SODIUM CHLORIDE 0.9% INJ 100 ML IV SCH (13:29)
[2017-05-14] MEDS: MULTIVITAMIN INJ 10 ML, FOLIC ACID INJ 1 MG in SODIUM CHLORID 0.9% 500 ML INJ 500 ML IV SCH (14:50)
--- NOTE | 2017-05-14 16:13 | ECHRPT ---
Indication: endocarditis CONCLUSIONS Normal left ventricular size. Wall thickness is measured at the upper limits of normal. The left ventricular systolic function is low normal with an estimated ejection fraction in the rang e of 50- 55%. The left atrial size is upper limits of normal. Trace mitral valve regurgitation. There is trace tricuspid valve regurgitation. The estimated pulmonary arterial pressure is 22mmHg. No evidence of endocarditis BP: / HR: Rhythm: MEASUREMENTS (Male / Female) Normal Values Technical Quality:Good 2D ECHO LV Diastolic Diameter PLAX 4.9 cm 4.2 - 5.9 / 3.9 - 5.3 cm LV Systolic Diameter PLAX 3.5 cm IVS Diastolic Thickness 0.9 cm 0.6 - 1.0 / 0.6 - 0.9 cm LVPW Diastolic Thickness 0.8 cm 0.6 - 1.0 / 0.6 - 0.9 cm LV Relative Wall Thickness 0.4 RV Internal Dim ED PLAX 2.1 cm LA Systolic Diameter LX 3.8 cm 3.0 - 4.0 / 2.7 - 3.8 cm M-MODE Aortic Root Diameter MM 2.4 cm AV Cusp Separation MM 1.4 cm DOPPLER AV Peak Velocity 228.0 cm/s AV Peak Gradient 20.8 mmHg MR Peak Velocity 466.0 cm/s MR Peak Gradient 86.9 mmHg Mitral E Point Velocity 89.8 cm/s Mitral A Point Velocity 68.1 cm/s Mitral E to A Ratio 1.3 TR Peak Velocity 209.0 cm/s TR Peak Gradient 17.5 mmHg Right Atrial Pressure 5.0 mmHg Pulmonary Artery Systolic Pressu 22.5 mmHg Right Ventricular Systolic Press 22.5 mmHg FINDINGS LEFT VENTRICLE Normal left ventricular size. Wall thickness is measured at the upper limits of normal. The left ventricular systolic function is low normal with an estimated ejection fraction in the rang e of 50- 55%. RIGHT VENTRICLE Normal right ventricular size and systolic function. LEFT ATRIUM The left atrial size is upper limits of normal. RIGHT ATRIUM The right atrial size is normal. ATRIAL SEPTUM Normal atrial septal thickness without atrial level shunting by limited color doppler interrogation. AORTA The aortic root and proximal ascending aorta are normal in size on limited imaging. MITRAL VALVE Trace mitral valve regurgitation. AORTIC VALVE Trileaflet aortic valve. No aortic valve stenosis or regurgitation. TRICUSPID VALVE There is trace tricuspid valve regurgitation. The estimated pulmonary arterial pressure is 22mmHg. PULMONARY VALVE No pulmonary valve regurgitation or stenosis. VESSELS The inferior vena cava is normal in size. PERICARDIUM No pericardial effusion. Oscar Miller MD (Electronically Signed) Final Date:14 May 2017 16:12
--- NOTE | 2017-05-14 16:47 | EKG ---
Date Performed: 05/14/2017 Time Performed: 16:17:40 PTAGE: 52 years EKG: Sinus rhythm SEPTAL MYOCARDIAL INFARCTION , PROBABLY OLD ABNORMAL ECG PREVIOUS TRACING : 03/18/2017 14.22 Compared to prior tracing no significant change DOCTOR: Jozef Costa Interpretating Date/Time 05/14/2017 16:46:31
--- NOTE | 2017-05-14 18:09 | RADRPT ---
EXAM DATE/TIME: 05/14/2017 16:34 [facility] COMPARISON: No previous studies available for comparison. INDICATIONS : Dyspnea with left sided chest pain. DOSE: 0.75 mCi Tc99m MAA IV 8.8 mCi Tc99m DTPA aerosol MEDICAL HISTORY : Diabetes mellitus type 2. Hypocalcemia, hypokalemia and AIDS. SURGICAL HISTORY : section. ENCOUNTER: Initial ACUITY: 1 day PAIN SCALE: 2/10 LOCATION: Left chest TECHNIQUE: Following five minutes of tidal breathing of DTPA aerosol, planar images of the lungs were performed in eight projections. The patient was then injected with MAA, and eight-view perfusion scan was perf ormed. FINDINGS: There is a slightly heterogeneous pattern of aerosol delivery to the periphery of both lungs. No foc al ventilatory defects are seen. The perfusion lung scan demonstrates a homogenous pattern of uptake in both lungs. No segmental or s ubsegmental defects are seen. CONCLUSION: Negative for pulmonary embolism. Tremayne Lemon MD on May 14, 2017 at 18:03 Board Certified Radiologist. This report was verified electronically.
[2017-05-15] VITALS (8 sets, daily range): BP systolic 100–108; BP diastolic 50–59; PULSE 75–82; RESP 16–20; TEMP 97.5–98; O2SAT 96–100
[2017-05-15] MEDS: ACETAMINOPHEN/HYDROcodone 325 MG/5 MG TAB PO PRN ×4 (02:09→19:47)
[2017-05-15] MEDS: PANTOPRAZOLE SODIUM 40 MG VIAL IV PUSH SCH (06:21)
[2017-05-15] MEDS: SODIUM CHLOR 0.9% 1000 ML INJ 1,000 ML IV SCH ×3 (06:28→23:25)
[2017-05-15] MEDS: SODIUM CHLORIDE 0.9% FLUSH 10 ML FLUSH IV FLUSH SCH ×2 (08:53→19:37)
[2017-05-15] MEDS: ENOXAPARIN SODIUM 40 MG/0.4 ML SYRINGE SQ SCH (08:55)
[2017-05-15] MEDS: NON-FORMULARY DRUG (Darunavir-Cobicistat (Prezcobix) 1 TAB) PO SCH (08:55)
[2017-05-15] MEDS: FIDAXOMICIN 200 MG TAB PO SCH ×2 (08:55→19:37)
[2017-05-15] MEDS: NON-FORMULARY DRUG (Abacavir-Dolutegravir-Lamivudine (Triumeq) 1 TAB) PO SCH (08:55)
[2017-05-15] MEDS: THIAMINE INJ 100 MG in SODIUM CHLORIDE 0.9% INJ 100 ML IV SCH (10:35)
--- NOTE | 2017-05-15 10:56 | HHI.FPPN ---
Subjective Remarks Patient states that she's doing better today than yesterday. Continues to endorse daily, frequent watery diarrhea and abdominal pain that is tender to palpation, especially epigastric pain. States that she was able to eat a little bit of breakfast this morning but states that it has been hard to keep food down. Denies vomiting, shortness of breath, fevers or chills. Patient believes she is urinating frequently and adequately. (Lillian Allred MD R1) Objective Vitals Vital Signs Date Time Temp Pulse Resp B/P (MAP) Pulse Ox O2 Delivery O2 Flow Rate FiO2 05/15/17 10:30 82 05/15/17 08:00 97.7 75 16 105/56 (72) 100 05/15/17 05:17 97.6 80 20 103/50 (67) 100 05/15/17 05:16 97.6 80 20 103/58 (73) 100 05/15/17 00:59 97.7 82 20 100/51 (67) 99 05/14/17 20:54 97.9 79 20 113/59 (77) 99 05/14/17 20:00 90 05/14/17 16:00 97.5 77 20 98/54 (69) 100 05/14/17 12:00 97.5 88 20 95/53 (67) 97 I/O 05/14/17 05/14/17 05/14/17 05/15/17 05/15/17 05/15/17 07:00 15:00 23:00 07:00 15:00 23:00 Intake Total 240 ml 480 ml 2204.2 ml 1000 ml Balance 240 ml 480 ml 2204.2 ml 1000 ml Intake Oral 240 ml 480 ml IV Total 2204.2 ml 1000 ml # Voids 1 1 2 2 # Bowel Movements 1 8 3 6 (Lillian Allred MD R1) Result Diagram: 05/14/17 1308 05/14/17 0616 Objective Remarks GENERAL: Cachectic, NAD, lying in bed SKIN: Multiple flat macules, that are hyperpigmented on all extremities. HEAD: Atraumatic. Normocephalic. EYES: EOMI. No scleral icterus. No injection or drainage. ENT: deferred NECK: Trachea midline. Supple. CHEST WALL: Tender to palpation in epigastric region CARDIOVASCULAR: RRR. No pitting edema in lower extremities. RESPIRATORY: Poor inspiratory effort,clear to auscultation GASTROINTESTINAL: nondistended, bowel sounds present, diffuse abdominal tenderness. Mild guarding. No rebound tenderness. NEUROLOGICAL: Awake and alert. Cranial nerves grossly intact. Motor and sensory grossly within normal limits. Normal speech. (Lillian Allred MD R1) A/P Assessment and Plan Epifanio Helm is a 52-year-old female with a past medical history significant for HIV and AIDS, with this recent CD4 count less than 20, ascites, cirrhosis, gastritis, and colonic polyps admitted for C diff colitis. Problem #1: C diff colitis CT of abdomen with IV contrast was significant for "abnormal appearance of the mid and proximal sigmoid colon with somewhat lobular internal mucosa and possible bowel wall thickening." Stool C diff toxin PCR and 027 strain both positive. Today, patient continues to endorse watery diarrhea, having minimal food intake Low bicarb and potassium from severe diarrhea CBC on admission shows toxic granulation and dhle bodies secondary to sepsis PLAN: Infectious disease consulted, on Fidaxomicin 200 mg po bid Day #3 Will continue IVF 130 cc/hr and supplement as needed Blood cultures from 05/13 still pending Stool cultures crypto and giardia pending Protonix 40 mg IV q24, consider transition to oral soon Pain control with percocet 5-325 mg pain 1-5, percocet 10-325 pain 6-10, and morphine 4 mg prn breakthrough. Problem # 2: AIDS CD4 count < 20 on 03/29/17. Continue home HAART medications ID consulted Problem # 3: Normocytic Anemia Last hgb 7.6 (8.1). Baseline appears to be 10, per patient records Consider due to dilutional anemia v malnutrition v anemia of chronic disease HH ordered for later this evening. Type and cross and transfuse 1 unit PRBCs if Hgb < 7.0 Consider further workup if Hgb continues to downtrend Problem # 4: Epigastric Pain + Tenderness to palpation of epigastric region, decreased appetite and nausea Associated with increased serum lipase 367 Diff of pancreatitis v pancreatic calculi v cholecystitis v duodenal ulcer Order Abd US to examine pancreas and gallbladder Treat pain with tylenol and [place] 5/325 PRN Con't IV protonix and IVF @ 130 mls/hr Full liquid diet Problem # 5: Hypokalemia K+ today is 3.3 Replete K+ Likely having K losses due to diarrhea Continue to monitor electrolytes and replete as needed Problem #6: Hypocalcemia Corrected value of 7.5 today, low since admission (6.8) Tums 500 mg PO scheduled Q8H Monitor daily CMP Problem #7 : Malnutrition Ensure/boost shakes with each meal Problem # 8: FEN, PPX DVT ppx: Lovenox 40 units daily, OOB at least TID with nursing assistance GI ppx: IV Protonix as above Fluids: NS at 130 ml/hr Electrolytes: plan as above, continue to monitor Nutrition: NPO after midnight for abdominal ultrasound. Resume in AM FULL liquid diet and ensure or boost shakes with each meal Discharge Planning Unclear timetable at this time Pending clinical improvement and further studies Infectious Disease following (Lillian Allred MD R1) Attending Attestation Patient seen and examined. Case reviewed and discussed with the resident team. Agree with plan of care as discussed with me and documented in the resident note. 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 ICD Codes: B20 - Human immunodeficiency virus [HIV] disease Status: Chronic (3) Anemia ICD Codes: D64.9 - Anemia, unspecified (4) Hypokalemia ICD Codes: E87.6 - Hypokalemia Status: Acute (5) Malnutrition ICD Codes: E46 - Unspecified protein-calorie malnutrition Status: Chronic (6) Nutrition, metabolism, and development symptoms ICD Codes: R63.8 - Other symptoms and signs concerning food and fluid intake Status: Acute (7) Epigastric abdominal pain ICD Codes: R10.13 - Epigastric pain (8) Hypocalcemia ICD Codes: E83.51 - Hypocalcemia Status: Resolved (iLllian Allred MD R1) Lillian Allred MD R1 May 15, 2017 10:56 Emerald Acosta MD May 16, 2017 09:52
[2017-05-15 11:50] LABS: HEMATOCRIT 22.9 % (35.0-46.0); MEAN CELL VOLUME 98.5 FL (80.0-100.0); MEAN CORPUSCULAR HEMOGLOBIN 32.6 PG (27.0-34.0); MEAN CORPUSCULAR HGB CONC 33.2 % (32.0-36.0); PLATELET COUNT 139 TH/MM3 (150-450); RED BLOOD COUNT 2.32 MIL/MM3 (4.00-5.30); RED CELL DISTRIBUTION WIDTH 17.5 % (11.6-17.2); WHITE BLOOD COUNT 5.3 TH/MM3 (4.0-11.0)
[2017-05-15 11:55] LABS: HEMO FLAGS AUTO DIFF
[2017-05-15] MEDS: MULTIVITAMIN INJ 10 ML, FOLIC ACID INJ 1 MG in SODIUM CHLORID 0.9% 500 ML INJ 500 ML IV SCH (11:57)
[2017-05-15 12:13] LABS: BICARBONATE 18.6 MEQ/L (21.0-32.0); CALCIUM-PROTEIN CORRECTED 7.5 MG/DL (8.5-10.1); MAGNESIUM 1.8 MG/DL (1.5-2.5); POTASSIUM 3.3 MEQ/L (3.5-5.1); TOTAL BILIRUBIN ADULT 0.3 MG/DL (0.2-1.0)
[2017-05-15 12:46] LABS: BANDS 14 % (0-6); CORRECTED NUCLEATED RBC 1 /100 WBC (0-0); NEUTROPHIL # MANUAL DIFF 4.7 TH/MM3 (1.8-7.7); OVALOCYTES 1+ (NORMAL); PLATELET ESTIMATE SMEAR LOW (NORMAL); PLATELET MORPHOLOGY NORMAL (NORMAL); POLYS (SEG NEUTROPHILS) 74 % (16-70); SCAN/DIFF FINAL DIFF MANUAL; WBC DIFF SAMPLE 100
[2017-05-15] MEDS ORDERED: POTASSIUM CHLORIDE 10 MEQ CONTROLLED RELEASE TAB PO ONE (16:00)
[2017-05-15 21:22] LABS: HEMATOCRIT 22.3 % (35.0-46.0); REVIEW FLAG FINAL
[2017-05-15] MEDS: CALCIUM CARBONATE 500 MG CHEWABLE TAB CHEW SCH (21:25)
[2017-05-16] VITALS (8 sets, daily range): BP systolic 96–120; BP diastolic 54–70; PULSE 75–89; RESP 18–20; TEMP 97.2–98; O2SAT 96–100
[2017-05-16] MEDS: ACETAMINOPHEN/HYDROcodone 325 MG/5 MG TAB PO PRN ×2 (02:09→05:40)
[2017-05-16] MEDS: PANTOPRAZOLE SODIUM 40 MG VIAL IV PUSH SCH (05:40)
[2017-05-16] MEDS: CALCIUM CARBONATE 500 MG CHEWABLE TAB CHEW SCH (05:40)
[2017-05-16] MEDS: SODIUM CHLOR 0.9% 1000 ML INJ 1,000 ML IV SCH ×4 (06:14→21:27)
[2017-05-16] MEDS: FIDAXOMICIN 200 MG TAB PO SCH ×2 (08:00→20:46)
[2017-05-16] MEDS: NON-FORMULARY DRUG (Abacavir-Dolutegravir-Lamivudine (Triumeq) 1 TAB) PO SCH (08:00)
[2017-05-16] MEDS: ENOXAPARIN SODIUM 40 MG/0.4 ML SYRINGE SQ SCH (08:00)
[2017-05-16] MEDS: NON-FORMULARY DRUG (Darunavir-Cobicistat (Prezcobix) 1 TAB) PO SCH (08:01)
[2017-05-16] MEDS: SODIUM CHLORIDE 0.9% FLUSH 10 ML FLUSH IV FLUSH SCH (08:01)
[2017-05-16 08:58] LABS: AUTOMATED NEUTROPHIL # 2.3 TH/MM3 (1.8-7.7); BASOPHIL % 0.9 % (0.0-2.0); EOSINOPHIL # 0.8 TH/MM3 (0-0.4); EOSINOPHIL % 18.3 % (0.0-4.0); HEMATOCRIT 24.6 % (35.0-46.0); LYMPH % 16.9 % (9.0-44.0); LYMPHOCYTE # 0.7 TH/MM3 (1.0-4.8); MEAN CELL VOLUME 96.8 FL (80.0-100.0); MEAN CORPUSCULAR HEMOGLOBIN 32.3 PG (27.0-34.0); MEAN CORPUSCULAR HGB CONC 33.3 % (32.0-36.0); NEUT % 54.9 % (16.0-70.0); PLATELET COUNT 151 TH/MM3 (150-450); RED BLOOD COUNT 2.54 MIL/MM3 (4.00-5.30); RED CELL DISTRIBUTION WIDTH 17.6 % (11.6-17.2); WHITE BLOOD COUNT 4.2 TH/MM3 (4.0-11.0)
[2017-05-16 09:04] LABS: HEMO FLAGS AUTO DIFF
[2017-05-16 09:46] LABS: BICARBONATE 16.1 MEQ/L (21.0-32.0); POTASSIUM 3.8 MEQ/L (3.5-5.1); TOTAL BILIRUBIN ADULT 0.3 MG/DL (0.2-1.0)
--- NOTE | 2017-05-16 09:47 | HHI.FPPN ---
Subjective Remarks Patient states she feels better today would like to eat. States her diarrhea is improved - is less watery. Endorses itching of her extremities and the top of her head. States the site at the top of her head is tender as well. States she notices vesicles on her body but has scratched most of them off. Points to a vesicle on her 5th finger at the PIP joint. Has had these ongoing for a month or two. (Lillian Allred MD R1) Objective Vitals Vital Signs Date Time Temp Pulse Resp B/P (MAP) Pulse Ox O2 Delivery O2 Flow Rate FiO2 05/16/17 08:14 78 05/16/17 08:03 97.4 81 20 103/60 (74) 100 05/16/17 04:22 98.0 80 18 110/56 (74) 100 05/16/17 00:00 97.2 75 18 96/54 (68) 100 05/15/17 20:00 75 05/15/17 20:00 98.0 81 18 108/52 (70) 96 05/15/17 16:00 97.5 75 16 102/59 (73) 100 05/15/17 12:00 97.5 77 16 100/58 (72) 100 05/15/17 10:30 82 I/O 05/15/17 05/15/17 05/15/17 05/16/17 05/16/17 05/16/17 07:00 15:00 23:00 07:00 15:00 23:00 Intake Total 1000 ml 701 ml 1870.2 ml 575 ml Balance 1000 ml 701 ml 1870.2 ml 575 ml Intake Oral 600 ml IV Total 1000 ml 101 ml 1870.2 ml 575 ml # Voids 2 2 3 4 # Bowel Movements 6 9 4 3 (Lillian Allred MD R1) Result Diagram: 05/16/17 0718 05/15/17 1132 Objective Remarks GENERAL: Cachectic, NAD, lying in bed SKIN: Multiple flat macules, that are hyperpigmented on all extremities. Small vesicle at the PIP joint. Unroofed lesion on the right posterior shoulder. Hyperkeratotic appearing site at the top of the head. No scaling, erythema, or fluid discharge noted. HEAD: Atraumatic. Normocephalic. EYES: EOMI. No scleral icterus. No injection or drainage. ENT: deferred NECK: Trachea midline. Supple. CHEST WALL: Tender to palpation in epigastric region CARDIOVASCULAR: RRR. No pitting edema in lower extremities. RESPIRATORY: Poor inspiratory effort,clear to auscultation GASTROINTESTINAL: nondistended, bowel sounds present, diffuse abdominal tenderness. Mild guarding. No rebound tenderness. NEUROLOGICAL: Awake and alert. Cranial nerves grossly intact. Motor and sensory grossly within normal limits. Normal speech. (Lillian Allred MD R1) A/P Assessment and Plan Epifanio Helm is a 52-year-old female with a past medical history significant for HIV and AIDS, with this recent CD4 count less than 20, ascites, cirrhosis, gastritis, and colonic polyps admitted for C diff colitis. Problem #1: C diff colitis CT of abdomen with IV contrast was significant for "abnormal appearance of the mid and proximal sigmoid colon with somewhat lobular internal mucosa and possible bowel wall thickening." Stool C diff toxin PCR and 027 strain both positive. Today, patient endorses improvement in diarrhea, would like a full diet Diarrhea x16 episodes in the last 24 hours PLAN: Infectious disease consulted, on Fidaxomicin 200 mg po bid Day #4. Per ID recs, continue Will continue IVF 130 cc/hr and supplement as needed Blood cultures from 10/20 NG for 2 days Stool cultures crypto and giardia negative Protonix 40 mg IV q24, consider transition to oral soon Pain control with percocet 5-325 mg pain 1-5, percocet 10-325 pain 6-10, and morphine 4 mg prn breakthrough. Problem #2: Pruritis Does not appear to be tinea capitis or fungal related IV benadryl PRN Problem #3: Blister of finger - patient complains she has had them all over her body Dermatitis herpetiformis v HSV v VZV May be related to pruritis Will sample sites and order viral PCR Problem # 4: AIDS CD4 count < 20 on 03/29/17. Continue home HAART medications ID consulted Problem # 5: Normocytic Anemia Last hgb 8.2. Baseline appears to be 10, per patient records Consider due to dilutional anemia v malnutrition v anemia of chronic disease Type and cross and transfuse 1 unit PRBCs if Hgb < 7.0 Consider further workup if Hgb continues to downtrend Problem # 6: Epigastric Pain + Tenderness to palpation of epigastric region, decreased appetite and nausea Abd US shows right small pleural effusion and ascites Treat pain with tylenol and [place] 5/325 PRN Con't IV protonix and IVF @ 130 mls/hr Resume full diet Problem # 7: Hypokalemia Resolved Likely having K losses due to diarrhea Continue to monitor electrolytes and replete as needed Problem #8: Hypocalcemia Resolved Corrected value of 9.46 based on our calculations Tums 500 mg PO scheduled Q8H Monitor daily CMP Problem #9 : Malnutrition Ensure/boost shakes with each meal Problem # 10: FEN, PPX DVT ppx: Lovenox 40 units daily, OOB at least TID with nursing assistance GI ppx: IV Protonix as above Fluids: NS at 130 ml/hr Electrolytes: plan as above, continue to monitor Nutrition: Full diet Discharge Planning Unclear timetable at this time Pending clinical improvement and further studies Infectious Disease following (Lillian Allred MD R1) Attending Attestation Patient seen and examined. Case reviewed and discussed with the resident team. Agree with plan of care as discussed with me and documented in the resident note. 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 ICD Codes: B20 - Human immunodeficiency virus [HIV] disease Status: Chronic (3) Anemia ICD Codes: D64.9 - Anemia, unspecified (4) Hypokalemia ICD Codes: E87.6 - Hypokalemia Status: Acute (5) Malnutrition ICD Codes: E46 - Unspecified protein-calorie malnutrition Status: Chronic (6) Nutrition, metabolism, and development symptoms ICD Codes: R63.8 - Other symptoms and signs concerning food and fluid intake Status: Acute (7) Epigastric abdominal pain ICD Codes: R10.13 - Epigastric pain (8) Hypocalcemia ICD Codes: E83.51 - Hypocalcemia Status: Resolved (9) Chronic pruritus ICD Codes: L29.9 - Pruritus, unspecified (10) Blister of finger ICD Codes: S60.429A - Blister (nonthermal) of unspecified finger, initial encounter (Lillian Allred MD R1) Lillian Allred MD R1 May 16, 2017 09:47 Emerald Acosta MD May 16, 2017 15:44
[2017-05-16 10:00] LABS: CALCIUM-PROTEIN CORRECTED 7.4 MG/DL (8.5-10.1)
[2017-05-16 10:06] LABS: BANDS 7 % (0-6); CORRECTED NUCLEATED RBC 1 /100 WBC (0-0); EOSINOPHILS 16 % (0-4); METAMYELOCYTES 1 % (0-1); MYELOCYTES 1 % (0-0); NEUTROPHIL # MANUAL DIFF 3.1 TH/MM3 (1.8-7.7); OVALOCYTES 1+ (NORMAL); PLASMA CELLS 1 % (0-0); PLATELET ESTIMATE SMEAR NORMAL (NORMAL); PLATELET MORPHOLOGY NORMAL (NORMAL); POLYS (SEG NEUTROPHILS) 64 % (16-70); SCAN/DIFF FINAL DIFF MANUAL; WBC DIFF SAMPLE 100
[2017-05-16 10:07] LABS: BURR CELLS 1+ (NORMAL); KERATOCYTES OCC (NORMAL)
--- NOTE | 2017-05-16 10:07 | RADRPT ---
EXAM DATE/TIME: 05/16/2017 08:39 [facility] COMPARISON: No previous studies available for comparison. [facility], US KIDNEY, BILATERAL, December 31, 2016 INDICATIONS : Increased lab values. MEDICAL HISTORY : Cirrhosis. HIV. Seizures. Cerebrovascular accident. Liver disease. Ectopic . Substance abuse . SURGICAL HISTORY : section. Exploratory laparatomy ENCOUNTER: Subsequent ACUITY: 1 day PAIN SCORE: 5/10 LOCATION: Bilateral upper quadrant MEASUREMENTS: LIVER: 14.7 cm length COMMON DUCT: 3 mm RIGHT KIDNEY: 10.1 x 4.7 x 6.1 cm SPLEEN: 12.7 cm length FINDINGS: There is a small right pleural effusion. There is also mild ascites seen about the margin of the yvette er and in Morison's pouch. LIVER: There is a mildly lobular surface contour to the liver. Homogeneous echotexture without focal lesion or ductal dilatation. Hepatopedal flow seen in the portal vein. COMMON DUCT: No intraluminal mass or stone visualized. GALLBLADDER: No shadowing gallstones seen. The lumen of the gallbladder is anechoic. The gallbladder wall measur es up to 3 mm, which is normal in the presence of ascites.. PANCREAS: The visualized portions are within normal limits. RIGHT KIDNEY: No hydronephrosis, stone or mass. SPLEEN: No focal lesion. CONCLUSION: 1. No gallstones seen. 2. No focal lesions in the liver. 3. Right pleural effusion and ascites. Jose Long MD on May 16, 2017 at 10:02 Board Certified Radiologist. This report was verified electronically.
[2017-05-16] MEDS: THIAMINE HCL 100 MG TAB PO SCH (11:25)
[2017-05-16] MEDS: MULTIVITAMIN INJ 10 ML, FOLIC ACID INJ 1 MG in SODIUM CHLORID 0.9% 500 ML INJ 500 ML IV SCH (11:25)
[2017-05-16] MEDS: diphenhydrAMINE HCL 50 MG CAP PO PRN ×2 (11:35→18:41)
--- NOTE | 2017-05-16 13:24 | HHI.IDPN ---
Note Infectious Disease Note Patient says she feels better. She notes 2 BM, small amount of diarrhea today. She reports itching of the skin and reports tiny vesicles of the skin which she says has been occurring on and off for months. No fever or chills. She wants to eat solid food. Patient had been admitted to this hospital recently on several occasions and has had C. difficile colitis diagnosed on the last two hospitalizations. She has been treated with medication for C. difficile colitis and despite that she has had refractory diarrhea. She had positive C. difficile toxin on January, March 24, 2017, March 27, 2017, and now again C. difficile toxin is positive. The patient was recently discharged from the hospital on April 29 and she states that the diarrhea never improved and she started having worse abdominal pain and she presented to the emergency department. PAST MEDICAL HISTORY 1. AIDS. 2. Depression. 3. Cerebrovascular accident. 4. Diabetes mellitus. 5. History of . 6. Colonic polyps. 7. Esophageal stricture. 8. History of pancreatitis. 9. History of cirrhosis. ALLERGIES No known drug allergies. SOCIAL HISTORY Occasional alcohol. No tobacco. Denies substance abuse. FAMILY HISTORY Noncontributory. OBJECTIVE: Vital Signs Date Time Temp Pulse Resp B/P (MAP) Pulse Ox O2 Delivery O2 Flow Rate FiO2 05/16/17 11:59 97.9 85 20 103/56 (72) 100 05/16/17 08:14 78 05/16/17 08:03 97.4 81 20 103/60 (74) 100 05/16/17 04:22 98.0 80 18 110/56 (74) 100 05/16/17 00:00 97.2 75 18 96/54 (68) 100 05/15/17 20:00 75 05/15/17 20:00 98.0 81 18 108/52 (70) 96 05/15/17 16:00 97.5 75 16 102/59 (73) 100 Laboratory Tests Test 05/15/17 20:25 05/16/17 07:08 05/16/17 07:18 Hemoglobin 7.4 GM/DL 8.2 GM/DL Hematocrit 22.3 % 24.6 % Blood Urea Nitrogen 9 MG/DL Creatinine 0.66 MG/DL Random Glucose 62 MG/DL Total Protein 7.0 GM/DL Albumin 1.3 GM/DL Calcium Level 7.3 MG/DL Alkaline Phosphatase 83 U/L Aspartate Amino Transf (AST/SGOT) 28 U/L Alanine Aminotransferase (ALT/SGPT) 11 U/L Total Bilirubin 0.3 MG/DL Sodium Level 144 MEQ/L Potassium Level 3.8 MEQ/L Chloride Level 119 MEQ/L Carbon Dioxide Level 16.1 MEQ/L Anion Gap 9 MEQ/L Estimat Glomerular Filtration Rate 113 ML/MIN Protein Corrected Calcium 7.4 MG/DL White Blood Count 4.2 TH/MM3 Red Blood Count 2.54 MIL/MM3 Mean Corpuscular Volume 96.8 FL Mean Corpuscular Hemoglobin 32.3 PG Mean Corpuscular Hemoglobin Concent 33.3 % Red Cell Distribution Width 17.6 % Platelet Count 151 TH/MM3 Mean Platelet Volume 9.9 FL Neutrophils (%) (Auto) 54.9 % Lymphocytes (%) (Auto) 16.9 % Monocytes (%) (Auto) 9.0 % Eosinophils (%) (Auto) 18.3 % Basophils (%) (Auto) 0.9 % Neutrophils # (Auto) 2.3 TH/MM3 Lymphocytes # (Auto) 0.7 TH/MM3 Monocytes # (Auto) 0.4 TH/MM3 Eosinophils # (Auto) 0.8 TH/MM3 Basophils # (Auto) 0.0 TH/MM3 CBC Comment AUTO DIFF Differential Total Cells Counted 100 Neutrophils % (Manual) 64 % Band Neutrophils % 7 % Lymphocytes % 9 % Monocytes % 1 % Eosinophils % 16 % Neutrophils # (Manual) 3.1 TH/MM3 Metamyelocytes 1 % Myelocytes 1 % Nucleated Red Blood Cells 1 /100 WBC Differential Comment FINAL DIFF MANUAL Plasma Cells 1 % Platelet Estimate NORMAL Platelet Morphology Comment NORMAL Ovalocytes 1+ Edwige Cells 1+ Keratocytes OCC PHYSICAL EXAMINATION GENERAL: No acute distress. HEENT: The head is atraumatic. Extraocular movements grossly intact. Pupils reactive to light. Sclera is pale. Oropharynx has slightly dry mucosa, no thrush. NECK: Supple. No adenopathy or JVD. LUNGS: Clear decreased breath sounds. HEART: Regular S1, S2. ABDOMEN: Bowel sounds present but diminished. Soft. Mild tenderness to palpation of the mid abdomen. EXTREMITIES: No clubbing, cyanosis or edema. NEUROLOGIC: No gross focal findings. SKIN: No rash. NEUROLOGIC: Calm and cooperative. IMPRESSION 1. Severe C. difficile colitis, recurrent. Still has diarrhea. 2. Bandemia and fever. Temp improved. 3. AIDS, being treated with HAART. RECOMMENDATIONS Continue Dificid. Monitor stools. Dr Froylan Metcalf to follow beginning tomorrow. Roland Green MD May 16, 2017 13:24
[2017-05-16] MEDS: diphenhydrAMINE HCL 2%/ZINC ACETATE 0.1% CREAM 30 APPLIC/30 GM TUBE TOPICAL PRN (22:24)
[2017-05-17] VITALS (8 sets, daily range): BP systolic 113–128; BP diastolic 58–70; PULSE 83–98; RESP 17–20; TEMP 97.3–98.9; O2SAT 99–100
[2017-05-17] MEDS: diphenhydrAMINE HCL 50 MG CAP PO PRN (00:22)
[2017-05-17] MEDS: ACETAMINOPHEN/HYDROcodone 325 MG/5 MG TAB PO PRN ×3 (00:23→10:30)
[2017-05-17] MEDS: SODIUM CHLOR 0.9% 1000 ML INJ 1,000 ML IV SCH (02:34)
[2017-05-17] MEDS: PANTOPRAZOLE SODIUM 40 MG VIAL IV PUSH SCH (05:28)
[2017-05-17] MEDS: NON-FORMULARY DRUG (Darunavir-Cobicistat (Prezcobix) 1 TAB) PO SCH (09:14)
[2017-05-17] MEDS: ENOXAPARIN SODIUM 40 MG/0.4 ML SYRINGE SQ SCH (09:14)
[2017-05-17] MEDS: NON-FORMULARY DRUG (Abacavir-Dolutegravir-Lamivudine (Triumeq) 1 TAB) PO SCH (09:14)
[2017-05-17] MEDS: FIDAXOMICIN 200 MG TAB PO SCH (09:14)
[2017-05-17] MEDS: THIAMINE HCL 100 MG TAB PO SCH (09:50)
[2017-05-17 10:00] LABS: HEMATOCRIT 23.2 % (35.0-46.0); MEAN CELL VOLUME 95.4 FL (80.0-100.0); MEAN CORPUSCULAR HEMOGLOBIN 32.4 PG (27.0-34.0); PLATELET COUNT 154 TH/MM3 (150-450); RED BLOOD COUNT 2.43 MIL/MM3 (4.00-5.30); RED CELL DISTRIBUTION WIDTH 17.7 % (11.6-17.2); WHITE BLOOD COUNT 4.2 TH/MM3 (4.0-11.0)
[2017-05-17 10:10] LABS: HEMO FLAGS AUTO DIFF
[2017-05-17 10:59] LABS: BICARBONATE 16.3 MEQ/L (21.0-32.0); POTASSIUM 3.9 MEQ/L (3.5-5.1); TOTAL BILIRUBIN ADULT 0.3 MG/DL (0.2-1.0)
--- NOTE | 2017-05-17 11:02 | HHI.FPPN ---
Subjective Remarks Still having 7/10 abdominal pain that is relieved with her pain medications. BMs / diarrhea have decreased over the past 24 hours. She feels "much better" since being hospitalized. She denies any fevers, chills, blood in her stools, or new sputum production. Still getting Dificid for c Diff colitis. (Mateusz Coats MD, R3) Objective Vitals Vital Signs Date Time Temp Pulse Resp B/P (MAP) Pulse Ox O2 Delivery O2 Flow Rate FiO2 05/17/17 07:52 97.3 89 17 121/69 (86) 99 05/17/17 05:00 98.9 98 20 126/63 (84) 99 05/17/17 00:56 97.9 97 20 113/58 (76) 99 05/16/17 21:08 97.4 83 20 120/70 (87) 96 05/16/17 20:00 89 05/16/17 16:24 97.9 80 20 106/64 (78) 100 05/16/17 11:59 97.9 85 20 103/56 (72) 100 I/O 05/16/17 05/16/17 05/16/17 05/17/17 05/17/17 05/17/17 07:00 15:00 23:00 07:00 15:00 23:00 Intake Total 575 ml 181 ml 2892 ml 1000 ml Balance 575 ml 181 ml 2892 ml 1000 ml Intake Oral 780 ml IV Total 575 ml 181 ml 2112 ml 1000 ml # Voids 6 2 1 # Bowel Movements 6 1 (Mateusz Coats MD, R3) Result Diagram: 05/17/17 0845 05/16/17 0708 Objective Remarks GENERAL: Cachectic, NAD, lying in bed SKIN: Multiple flat macules, that are hyperpigmented on all extremities. Small vesicle at the PIP joint. Unroofed lesion on the right posterior shoulder. Hyperkeratotic appearing site at the top of the head. No scaling, erythema, or fluid discharge noted. HEAD: Atraumatic. Normocephalic. EYES: EOMI. No scleral icterus. No injection or drainage. ENT: deferred NECK: Trachea midline. Supple. CHEST WALL: Tender to palpation in epigastric region CARDIOVASCULAR: RRR. No pitting edema in lower extremities. RESPIRATORY: Poor inspiratory effort,clear to auscultation GASTROINTESTINAL: nondistended, bowel sounds present, diffuse abdominal tenderness. Mild guarding. No rebound tenderness. NEUROLOGICAL: Awake and alert. Cranial nerves grossly intact. Motor and sensory grossly within normal limits. Normal speech. (Mateusz Coats MD, R3) A/P Assessment and Plan Epifanio Helm is a 52-year-old female with a past medical history significant for HIV and AIDS, with this recent CD4 count less than 20, ascites, cirrhosis, gastritis, and colonic polyps admitted for C diff colitis. Problem #1: C diff colitis CT of abdomen with IV contrast was significant for "abnormal appearance of the mid and proximal sigmoid colon with somewhat lobular internal mucosa and possible bowel wall thickening." Stool C diff toxin PCR and 027 strain both positive. Today, patient endorses improvement in diarrhea, would like a full diet Diarrhea x1 in past 12 hours per patient. PLAN: Infectious disease consulted, on Fidaxomicin 200 mg po bid Day #5. Per ID recs, continue Blood cultures from 10/20 NG for 2 days Stool cultures crypto and giardia negative Protonix 40 mg IV q24, consider transition to oral soon Pain control with percocet 5-325 mg pain 1-5, percocet 10-325 pain 6-10, and morphine 4 mg prn breakthrough. Problem #2: Pruritis Does not appear to be tinea capitis or fungal related IV benadryl PRN Problem #3: Blister of finger - patient complains she has had them all over her body Dermatitis herpetiformis v HSV v VZV May be related to pruritis Continue to follow Problem # 4: AIDS CD4 count < 20 on 03/29/17. Continue home HAART medications ID consulted Problem # 5: Normocytic Anemia Last hgb 8.2. Baseline appears to be 10, per patient records Consider due to dilutional anemia v malnutrition v anemia of chronic disease Type and cross and transfuse 1 unit PRBCs if Hgb < 7.0 Consider further workup if Hgb continues to downtrend Problem # 6: Epigastric Pain + Tenderness to palpation of epigastric region, decreased appetite and nausea Abd US shows right small pleural effusion and ascites Treat pain with tylenol and [place] 5/325 PRN Con't IV protonix Resume full diet Problem # 7: Hypokalemia Given 40 mEq of KCL today for K+ of 3.1. Continue with daily BMP. Likely having K losses due to diarrhea Continue to monitor electrolytes and replete as needed Problem #8: Hypocalcemia Calc 7.1 - give 1 g Calcium Gluconate IV Continue with Tums 500 mg PO scheduled Q8H. Monitor daily CMP. Problem #9 : Malnutrition Ensure/boost shakes with each meal Problem # 10: FEN, PPX DVT ppx: Lovenox 40 units daily, OOB at least TID with nursing assistance GI ppx: IV Protonix as above Fluids: Full reg diet Electrolytes: plan as above, continue to monitor Nutrition: Full diet Discharge Planning Unclear timetable at this time Pending clinical improvement and further studies Infectious Disease following (Mateusz Coats MD, R3) Attending Attestation Patient seen and examined. Case reviewed and discussed with the resident team. Agree with plan of care as discussed with me and documented in the resident note. 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 ICD Codes: B20 - Human immunodeficiency virus [HIV] disease Status: Chronic (3) Anemia ICD Codes: D64.9 - Anemia, unspecified (4) Hypokalemia ICD Codes: E87.6 - Hypokalemia Status: Acute (5) Malnutrition ICD Codes: E46 - Unspecified protein-calorie malnutrition Status: Chronic (6) Nutrition, metabolism, and development symptoms ICD Codes: R63.8 - Other symptoms and signs concerning food and fluid intake Status: Acute (7) Epigastric abdominal pain ICD Codes: R10.13 - Epigastric pain (8) Hypocalcemia ICD Codes: E83.51 - Hypocalcemia Status: Resolved (9) Chronic pruritus ICD Codes: L29.9 - Pruritus, unspecified (10) Blister of finger ICD Codes: S60.429A - Blister (nonthermal) of unspecified finger, initial encounter (Mateusz Coats MD, R3) Mateusz Coats MD, R3 May 17, 2017 11:01 Emerald Acosta MD May 18, 2017 08:39
[2017-05-17 11:09] LABS: CALCIUM-PROTEIN CORRECTED 7.1 MG/DL (8.5-10.1)
[2017-05-17 13:31] LABS: EOSINOPHILS 3 % (0-4); NEUTROPHIL # MANUAL DIFF 3.2 TH/MM3 (1.8-7.7); POLYS (SEG NEUTROPHILS) 77 % (16-70); WBC DIFF SAMPLE 100
[2017-05-17 13:32] LABS: OVALOCYTES 1+ (NORMAL)
[2017-05-17 13:33] LABS: PLATELET ESTIMATE SMEAR NORMAL (NORMAL); PLATELET MORPHOLOGY NORMAL (NORMAL); SCAN/DIFF FINAL DIFF MANUAL; TEARDROP RBCS 1+ (NORMAL)
[2017-05-17] MEDS ORDERED: CALCIUM GLUCONATE INJ 1 GM in SODIUM CHLORIDE 0.9% INJ 100 ML IV ONE (14:00)
--- NOTE | 2017-05-17 14:42 | HHI.IDPN ---
Subjective Subjective Remarks Patient known to me from prior admission. asked me to resume care for continuity. has been admitted to this hospital recently on several occasions and has had C. difficile colitis diagnosed on the last two hospitalizations. She has been treated with medication for C. difficile colitis and despite that she has had refractory diarrhea. She had positive C. difficile toxin on January, March 24, 2017, March 27, 2017, and now again C. difficile toxin is positive. The patient was recently discharged from the hospital on April 29 and she states that the diarrhea never improved and she started having worse abdominal pain and she presented to the emergency department. PAST MEDICAL HISTORY 1. AIDS. 2. Depression. 3. Cerebrovascular accident. 4. Diabetes mellitus. 5. History of . 6. Colonic polyps. 7. Esophageal stricture. 8. History of pancreatitis. 9. History of cirrhosis. Patient says she feels better. She notes 2 BM, small amount of diarrhea today. She reports itching of the skin and reports tiny vesicles of the skin which she says has been occurring on and off for months. No fever or chills. She wants to eat solid food. Antibiotics Reported Meds & Active Scripts Active Metoprolol Tartrate 25 Mg Tab 12.5 Mg PO Q12HR Prezcobix (Darunavir-Cobicistat) 800-150 Mg Tab 1 Tab PO DAILY Triumeq (Jvntucha-Vtgkxujvgxvd-Csnhqdepgf) 600-50-300 Mg Tab 1 Tab PO DAILY Hazardous agent; use appropriate precautions for handling & disposal. Aspirin Low Strength (Aspirin) 81 Mg Chew 81 Mg CHEW DAILY Acidophilus/l-Sporogenes (Lactobacillus Acidophilus) 1 Tab Tab 1 Tab PO TID Zofran (Ondansetron HCl) 4 Mg Tab 4 Mg PO Q6HR PRN Azithromycin 600 Mg Tab 1,200 Mg PO Q7D 30 Days Current Medications Medications (Trade) Dose Ordered Sig/Sue Route Start Time Stop Time Status Last Admin Sodium Chloride 1,000 ml @ 130 mls/hr Q7H42M IV 05/13/17 01:00 05/17/17 02:34 (Zofran Inj) 4 mg Q6H PRN IVP 05/13/17 01:00 05/13/17 09:02 (Ambien) 5 mg HS PRN PO 05/13/17 01:00 (Lovenox Inj) 40 mg DAILY SQ 05/13/17 09:00 05/17/17 09:14 (Narcan Inj) 0.4 mg UNSCH PRN IV PUSH 05/13/17 01:00 (Protonix Inj) 40 mg Q24H IV PUSH 05/13/17 06:00 05/17/17 05:28 (Vitamin B1) 100 mg DAILY@1100 PO 05/16/17 11:00 05/17/17 09:50 ([place] 5-325 Mg) 1 tab Q4H PRN PO 05/13/17 10:45 05/17/17 00:23 ([place] 5-325 Mg) 2 tab Q4H PRN PO 05/13/17 10:45 05/17/17 10:30 (Morphine Inj) 4 mg Q3H PRN IV PUSH 05/13/17 10:45 (Dificid) 200 mg BID PO 05/13/17 13:30 05/23/17 13:29 05/17/17 09:14 Non-Formulary Medication 1 tab DAILY PO 05/13/17 16:45 05/17/17 09:14 Non-Formulary Medication 1 tab DAILY PO 05/13/17 16:45 05/17/17 09:14 (Benadryl) 50 mg Q6H PRN PO 05/16/17 09:30 05/17/17 00:22 (Benadryl 2% Cream) 1 applic TID PRN TOPICAL 05/16/17 21:45 05/16/17 22:24 Calcium Gluconate 1 gm/Sodium Chloride 110 ml @ 110 mls/hr ONCE ONCE IV 05/17/17 14:00 05/17/17 14:59 05/17/17 14:11 (Oscal) 500 mg Q12HR PO 05/17/17 21:00 Lines Line sites with no e.o infection Past Medical History reviewed. HIV advanced CDiff recurrent Allergies: Coded Allergies: No Known Allergies (Verified , 04/26/17) Objective . Vital Signs Date Time Temp Pulse Resp B/P (MAP) Pulse Ox O2 Delivery O2 Flow Rate FiO2 05/17/17 13:16 97.3 88 20 121/60 (80) 100 05/17/17 07:52 97.3 89 17 121/69 (86) 99 05/17/17 05:00 98.9 98 20 126/63 (84) 99 05/17/17 00:56 97.9 97 20 113/58 (76) 99 05/16/17 21:08 97.4 83 20 120/70 (87) 96 05/16/17 20:00 89 05/16/17 16:24 97.9 80 20 106/64 (78) 100 . Laboratory Tests Test 05/15/17 20:25 05/16/17 07:18 05/17/17 08:45 Hemoglobin 7.4 GM/DL 8.2 GM/DL 7.9 GM/DL Hematocrit 22.3 % 24.6 % 23.2 % White Blood Count 4.2 TH/MM3 4.2 TH/MM3 Red Blood Count 2.54 MIL/MM3 2.43 MIL/MM3 Mean Corpuscular Volume 96.8 FL 95.4 FL Mean Corpuscular Hemoglobin 32.3 PG 32.4 PG Mean Corpuscular Hemoglobin Concent 33.3 % 34.0 % Red Cell Distribution Width 17.6 % 17.7 % Platelet Count 151 TH/MM3 154 TH/MM3 Mean Platelet Volume 9.9 FL 9.2 FL Neutrophils (%) (Auto) 54.9 % Lymphocytes (%) (Auto) 16.9 % Monocytes (%) (Auto) 9.0 % Eosinophils (%) (Auto) 18.3 % Basophils (%) (Auto) 0.9 % Neutrophils # (Auto) 2.3 TH/MM3 Lymphocytes # (Auto) 0.7 TH/MM3 Monocytes # (Auto) 0.4 TH/MM3 Eosinophils # (Auto) 0.8 TH/MM3 Basophils # (Auto) 0.0 TH/MM3 CBC Comment AUTO DIFF AUTO DIFF Differential Total Cells Counted 100 100 Neutrophils % (Manual) 64 % 77 % Band Neutrophils % 7 % Lymphocytes % 9 % 11 % Monocytes % 1 % 9 % Eosinophils % 16 % 3 % Neutrophils # (Manual) 3.1 TH/MM3 3.2 TH/MM3 Metamyelocytes 1 % Myelocytes 1 % Nucleated Red Blood Cells 1 /100 WBC Differential Comment FINAL DIFF MANUAL FINAL DIFF MANUAL Plasma Cells 1 % Platelet Estimate NORMAL NORMAL Platelet Morphology Comment NORMAL NORMAL Ovalocytes 1+ 1+ [place] Cells 1+ Keratocytes OCC Tear Drop Cells 1+ Laboratory Tests Test 05/16/17 07:08 05/17/17 08:45 Blood Urea Nitrogen 9 MG/DL 7 MG/DL Creatinine 0.66 MG/DL 0.73 MG/DL Random Glucose 62 MG/DL 67 MG/DL Total Protein 7.0 GM/DL 7.3 GM/DL Albumin 1.3 GM/DL 1.3 GM/DL Calcium Level 7.3 MG/DL 7.1 MG/DL Alkaline Phosphatase 83 U/L 123 U/L Aspartate Amino Transf (AST/SGOT) 28 U/L 26 U/L Alanine Aminotransferase (ALT/SGPT) 11 U/L 15 U/L Total Bilirubin 0.3 MG/DL 0.3 MG/DL Sodium Level 144 MEQ/L 144 MEQ/L Potassium Level 3.8 MEQ/L 3.9 MEQ/L Chloride Level 119 MEQ/L 121 MEQ/L Carbon Dioxide Level 16.1 MEQ/L 16.3 MEQ/L Anion Gap 9 MEQ/L 7 MEQ/L Estimat Glomerular Filtration Rate 113 ML/MIN 101 ML/MIN Protein Corrected Calcium 7.4 MG/DL 7.1 MG/DL Imaging Last Impressions Liver Ultrasound 05/16/17 0000 Signed Impressions: Service Date/Time: Tuesday, May 16, 2017 08:39 - CONCLUSION: 1. No gallstones seen. 2. No focal lesions in the liver. 3. Right pleural effusion and ascites. Jose Long MD Lung Scan- Nuclear Medicine 05/14/17 0000 Signed Impressions: Service Date/Time: Sunday, May 14, 2017 16:34 - CONCLUSION: Negative for pulmonary embolism. Tremayne Lemon MD Chest X-Ray 05/13/17 0051 Signed Impressions: Service Date/Time: Saturday, May 13, 2017 01:04 - CONCLUSION: No acute disease. Grant Villasenor MD Abdomen/Pelvis CT 05/12/17 194 Signed Impressions: Service Date/Time: April 21:45 - CONCLUSION: Persistent findings consistent with cirrhosis hepatocellular disease and varices. Portal venous system is patent. Atelectasis or scarring in the left lower lobe persists. abnormal appearance of the mid and proximal sigmoid colon with somewhat lobular internal mucosa and possible bowel wall thickening suggesting the possibility of inflammatory process or colitis. Clinical correlation recommended and directly visualization if warranted with sigmoidoscopy or colonoscopy should be considered Ross Green MD Physical Exam GENERAL: Cachectic, NAD, lying in bed SKIN: Multiple flat macules, that are hyperpigmented on all extremities. Small vesicle at the PIP joint. Unroofed lesion on the right posterior shoulder. Hyperkeratotic appearing site at the top of the head. No scaling, erythema, or fluid discharge noted. HEAD: Atraumatic. Normocephalic. EYES: EOMI. No scleral icterus. No injection or drainage. ENT: deferred NECK: Trachea midline. Supple. CHEST WALL: Tender to palpation in epigastric region CARDIOVASCULAR: RRR. No pitting edema in lower extremities. RESPIRATORY: Poor inspiratory effort,clear to auscultation GASTROINTESTINAL: nondistended, bowel sounds present, diffuse abdominal tenderness. Mild guarding. No rebound tenderness. NEUROLOGICAL: Awake and alert. Cranial nerves grossly intact. Motor and sensory grossly within normal limits. Normal speech. Psych cooperative IV line sites with no e.o infection. Assessment & Plan Remarks Recurrent C diff colitis Pruritis Advanced AIDS non compliant was not on meds prior to this admission. Restarted on HAART in hospital. I would not give her new scripts as she reports she has scripts from that were called and she needs to be picked up. Unsure if the regimen in hospital is appropriate or if he prescribed a new regimen. 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 Advanced AIDS: at risk for MARLA continue Azithro 1500 mg once a week post discharge. Myco fortuitum in stool ? contaminant vs real. Recs Discontinue Dificid (recurrence is due to non compliance and advanced HIV disease) Follow AFB in stool if Myco fortuitum is real can address this as outpatient and will need to be notified. Discharge meds from ID standpoint: 1. Vanco tapering regimen as follows: Vanco 250 mg po every 6 hours for 14 days followed by Vanco 250 mg po every 8 hours for 14 days followed by Vanco 125 mg po every 6 hours for 14 days followed by vanco 125 mg po every 12 hours for 2 months, followed by Vanco 125 mg po daily for 2 months. Unfortunately as pt is on HAART and her disease is advanced she is at risk for recurrence. Concern about compliance. Recommend home health on discharge to check on medication compliance. 2. Azithro 1200 mg po once a week on Wednesdays. 3. Bactrim DS 1 tab po Tuesday, Tue, Tue for PCP prophylaxis. 4.HAART per Advanced AIDS non compliant was not on meds prior to this admission. Restarted on HAART in hospital. I would not give her new HIV medication scripts as she reports she has scripts from that were called in to her pharmacy and these need to be picked up. Unsure if the HAART regimen in hospital is appropriate or if (HIV provider) prescribed a new regimen. 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 Will sign off please call back if any change in clinical condition or questions. Lynsey Metcalf MD May 17, 2017 14:42
[2017-05-17] MEDS ORDERED: AZITHROMYCIN 600 MG TAB PO SCH (16:00)
[2017-05-17] MEDS: VANCOMYCIN 500 MG VIAL (FOR ORAL USE ONLY) PO SCH ×2 (17:22→21:43)
[2017-05-17] MEDS ORDERED: CALCIUM CARBONATE 1.25 GM (CA 500 MG) TAB PO SCH (21:00)
[2017-05-17] MEDS: SULFAMETHOXAZOLE-TRIMETHOPRIM 400-80 MG TAB PO SCH (21:43)
[2017-05-18] VITALS (7 sets, daily range): BP systolic 132–147; BP diastolic 65–79; PULSE 89–96; RESP 18; TEMP 98.1–99.6; O2SAT 97–100
[2017-05-18] MEDS: SODIUM CHLOR 0.9% 1000 ML INJ 1,000 ML IV SCH ×2 (02:19→10:11)
[2017-05-18] MEDS: PANTOPRAZOLE SODIUM 40 MG VIAL IV PUSH SCH (05:26)
[2017-05-18 09:49] LABS: MITOGEN MINUS NIL RESULT 0.16 IU/mL; NIL RESULT 0.04 IU/mL; QUANTIFERON TB GOLD RESULT Indeterminate (Negative)
[2017-05-18 09:53] LABS: HEMATOCRIT 22.1 % (35.0-46.0); MEAN CELL VOLUME 96.4 FL (80.0-100.0); MEAN CORPUSCULAR HEMOGLOBIN 33.1 PG (27.0-34.0); MEAN CORPUSCULAR HGB CONC 34.3 % (32.0-36.0); PLATELET COUNT 133 TH/MM3 (150-450); RED BLOOD COUNT 2.29 MIL/MM3 (4.00-5.30); RED CELL DISTRIBUTION WIDTH 17.6 % (11.6-17.2); WHITE BLOOD COUNT 4.2 TH/MM3 (4.0-11.0)
[2017-05-18 10:04] LABS: HEMO FLAGS AUTO DIFF
[2017-05-18 10:07] LABS: ALKALINE PHOSPHATASE 118 U/L (45-117); TOTAL BILIRUBIN ADULT 0.3 MG/DL (0.2-1.0)
[2017-05-18] MEDS: SULFAMETHOXAZOLE-TRIMETHOPRIM 400-80 MG TAB PO SCH (10:08)
[2017-05-18] MEDS: THIAMINE HCL 100 MG TAB PO SCH (10:08)
[2017-05-18] MEDS: VANCOMYCIN 500 MG VIAL (FOR ORAL USE ONLY) PO SCH ×2 (10:09→12:34)
[2017-05-18] MEDS: ENOXAPARIN SODIUM 40 MG/0.4 ML SYRINGE SQ SCH (10:09)
[2017-05-18] MEDS: NON-FORMULARY DRUG (Abacavir-Dolutegravir-Lamivudine (Triumeq) 1 TAB) PO SCH (10:10)
[2017-05-18] MEDS: NON-FORMULARY DRUG (Darunavir-Cobicistat (Prezcobix) 1 TAB) PO SCH (10:10)
[2017-05-18 10:12] LABS: ALT (GPT) 12 U/L (10-53); ANION GAP 6 MEQ/L (5-15); AST (GOT) 26 U/L (15-37); BICARBONATE 18.3 MEQ/L (21.0-32.0); BLOOD UREA NITROGEN 6 MG/DL (7-18); CHLORIDE 117 MEQ/L (98-107); GLOMERULAR FILTRATION RATE 98 ML/MIN (>89); POTASSIUM 3.9 MEQ/L (3.5-5.1); SODIUM (NA) 141 MEQ/L (136-145)
--- NOTE | 2017-05-18 10:23 | HHI.FPPN ---
Subjective Remarks Patient states she is doing well today. Had 3 BM since yesterday afternoon, one last night. States all of her symptoms are significantly improved since admission. Denies fever, chest pain, SOB, or abdominal pain. Adequate intake and output, ambulating without problems. Would like to go home. (Lillian Allred MD R1) Objective Vitals Vital Signs Date Time Temp Pulse Resp B/P (MAP) Pulse Ox O2 Delivery O2 Flow Rate FiO2 05/18/17 08:00 98.1 92 18 139/74 (95) 99 05/18/17 07:20 92 05/18/17 04:00 98.2 94 18 135/65 (88) 100 05/18/17 03:04 96 05/18/17 00:00 98.2 89 18 147/77 (100) 100 05/17/17 20:01 83 05/17/17 20:00 98.8 89 19 128/70 (89) 100 05/17/17 17:35 97.8 86 20 125/69 (87) 100 05/17/17 16:00 95 05/17/17 13:16 97.3 88 20 121/60 (80) 100 I/O 05/17/17 05/17/17 05/17/17 05/18/17 05/18/17 05/18/17 07:00 15:00 23:00 07:00 15:00 23:00 Intake Total 1000 ml 720 ml Output Total 1 ml Balance 1000 ml -1 ml 720 ml Intake Oral 720 ml IV Total 1000 ml Output Urine Total 1 ml # Voids 1 1 1 1 # Bowel Movements 1 1 1 1 (Lillian Allred MD R1) Result Diagram: 05/18/1791205/18/17912 Objective Remarks GENERAL: Cachectic, NAD, lying in bed comfortably SKIN: Multiple flat macules, that are hyperpigmented on all extremities. HEAD: Atraumatic. Normocephalic. EYES: EOMI. No scleral icterus. No injection or drainage. ENT: deferred NECK: Trachea midline. Supple. CHEST WALL: Tender to palpation in epigastric region CARDIOVASCULAR: RRR. No pitting edema in lower extremities. RESPIRATORY: clear to auscultation, no respiratory effort GASTROINTESTINAL: nondistended, bowel sounds present, mild tenderness to palpation of the left upper abdomen. No rebound tenderness or guarding. NEUROLOGICAL: Awake and alert. Cranial nerves grossly intact. Motor and sensory grossly within normal limits. Normal speech. (Lillian Allred MD R1) A/P Assessment and Plan Epifanio Helm is a 52-year-old female with a past medical history significant for HIV and AIDS, with this recent CD4 count less than 20, ascites, cirrhosis, gastritis, and colonic polyps admitted for C diff colitis. Problem #1: C diff colitis CT of abdomen with IV contrast was significant for "abnormal appearance of the mid and proximal sigmoid colon with somewhat lobular internal mucosa and possible bowel wall thickening." Stool C diff toxin PCR and 027 strain both positive. Blood cx negative, stool cx negative. Today, patient endorses improvement in diarrhea, would like a full diet Diarrhea x 1 overnight PLAN: Infectious disease consulted, on Fidaxomicin 200 mg po bid Day #6. Per ID recs, continue. Will D/C with recommendations for oral Vanco, azithro, and bactrim. Counseled patient to continue HIV medications outpatient Protonix 40 mg IV q24, consider transition to oral soon Pain control with percocet 5-325 mg pain 1-5, percocet 10-325 pain 6-10, and morphine 4 mg prn breakthrough. Problem #2: Pruritis - improved Does not appear to be tinea capitis or fungal related PO Benadryl 50 mg PRN and 2% benadryl cream PRN Problem #3: Blister of finger Likely secondary to injury Recommend patient address outpatient Problem # 4: AIDS CD4 count < 20 on 03/29/17. Continue home HAART medications ID consulted, con't meds outpatient Problem # 5: Normocytic Anemia Last hgb 7.6. Over the course of admission, level has fluctuated, with range being 7.4-9.3. Baseline appears to be 10, per patient records Consider due to dilutional anemia v malnutrition v anemia of chronic disease Type and cross and transfuse 1 unit PRBCs if Hgb < 7.0 Consider further workup if Hgb continues to downtrend Problem # 6: Hypokalemia - resolved Continue with daily BMP. Likely having K losses due to diarrhea Continue to monitor electrolytes and replete as needed Problem #7: Hypocalcemia - resolved Continue with Tums 500 mg PO scheduled Q8H. Monitor daily CMP. Problem #8 : Malnutrition Ensure/boost shakes with each meal Problem # 19: FEN, PPX DVT ppx: Lovenox 40 units daily, OOB at least TID with nursing assistance GI ppx: IV Protonix as above Fluids: D/C today Electrolytes: plan as above, continue to monitor Nutrition: Full diet Discharge Planning D/C today to home with ID recommendations and follow up (w/Dr. Marie and PCP) (Lillian Allred MD R1) Attending Attestation Patient seen and examined. Case reviewed and discussed with the resident team. Agree with plan of care as discussed with me and documented in the resident note. 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 ICD Codes: B20 - Human immunodeficiency virus [HIV] disease Status: Chronic (3) Anemia ICD Codes: D64.9 - Anemia, unspecified (4) Hypokalemia ICD Codes: E87.6 - Hypokalemia Status: Acute (5) Malnutrition ICD Codes: E46 - Unspecified protein-calorie malnutrition Status: Chronic (6) Nutrition, metabolism, and development symptoms ICD Codes: R63.8 - Other symptoms and signs concerning food and fluid intake Status: Acute (7) Epigastric abdominal pain ICD Codes: R10.13 - Epigastric pain (8) Hypocalcemia ICD Codes: E83.51 - Hypocalcemia Status: Resolved (9) Chronic pruritus ICD Codes: L29.9 - Pruritus, unspecified (10) Blister of finger ICD Codes: S60.429A - Blister (nonthermal) of unspecified finger, initial encounter (Lillian Allred MD R1) Lillian Allred MD R1 May 18, 2017 10:23 Emerald Acosta MD May 18, 2017 12:29
[2017-05-18 10:29] LABS: BANDS 2 % (0-6); EOSINOPHILS 1 % (0-4); NEUTROPHIL # MANUAL DIFF 2.9 TH/MM3 (1.8-7.7); PLATELET ESTIMATE SMEAR LOW (NORMAL); PLATELET MORPHOLOGY NORMAL (NORMAL); POLYS (SEG NEUTROPHILS) 67 % (16-70); SCAN/DIFF FINAL DIFF MANUAL; WBC DIFF SAMPLE 100
[2017-05-18 10:30] LABS: OVALOCYTES 1+ (NORMAL); TEARDROP RBCS 1+ (NORMAL)
[2017-05-18] MEDS ORDERED: VANC250C2 PO (11:02)
[2017-05-18] MEDS ORDERED: VANC125C3 PO ×3 (11:02)
[2017-05-18] MEDS ORDERED: AZIT600T PO (11:02)
[2017-05-18] MEDS ORDERED: VANC1CAP7 PO (11:02)
[2017-05-18] MEDS ORDERED: BACT800T5 PO (11:02)
--- NOTE | 2017-05-18 11:08 | HHI.FF ---
Face to Face Verification Diagnosis: (1) C. 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 I have seen patient Epifanio Helm on 05/18/17. My clinical findings support the need for the requested home health care services because: Med compliance is questionable I certify that my clinical findings support that this patient is homebound because: Impaired cognitive ability/safety Lillian Allred MD R1 May 18, 2017 11:08
--- NOTE | 2017-05-18 11:10 | HHI.DCPOC ---
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 difficile colitis Goals to Promote Your Health * To prevent worsening of your condition and complications, please take medications as prescribed and follow up with your doctors * To maintain your health at the optimal level, take your medications as instructed, eat a healthy diet, participate in at least 30 minutes of movement, and avoid unsafe sexual activity Directions to Meet Your Goals Take your medications as prescribed Follow your dietary instruction Follow activity as directed Keep your appointments as scheduled Take your immunizations and boosters as scheduled If your symptoms worsen call your PCP, if no PCP go to Urgent Care Center or Emergency Room Smoking is Dangerous to Your Health. Avoid second hand smoke Call the 24-hour hour crisis hotline for domestic abuse at Lillian Allred MD R1 May 18, 2017 11:10
[2017-05-18] MEDS: diphenhydrAMINE HCL 2%/ZINC ACETATE 0.1% CREAM 30 APPLIC/30 GM TUBE TOPICAL PRN (12:34)
--- NOTE | 2017-05-18 15:12 | HHI.FF ---
Face to Face Verification Diagnosis: (1) C. 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 My clinical findings support the need for the requested home health care services because: Ltd mobility - disease progression Med compliance is questionable I certify that my clinical findings support that this patient is homebound because: Impaired cognitive ability/safety Unsteady gait/balance Lillian Allred MD R1 May 18, 2017 15:12
--- NOTE | 2017-05-18 20:09 | HHI.DS ---
Discharge Summary Admission Date May 12, 2017 at 23:15 Discharge Date: May 18, 2017 Admitting Diagnosis colitis, immunodeficiency (1) Colitis Diagnosis: Principal Plan: Problem #1: C diff colitis CT of abdomen with IV contrast was significant for "abnormal appearance of the mid and proximal sigmoid colon with somewhat lobular internal mucosa and possible bowel wall thickening." Stool C diff toxin PCR and 027 strain both positive. Blood cx negative, stool cx negative. Today, patient endorses improvement in diarrhea, would like a full diet Diarrhea x 1 overnight PLAN: Infectious disease consulted, on Fidaxomicin 200 mg po bid Day #6. Per ID recs, continue. Will D/C with recommendations for oral Vanco, azithro, and bactrim. Counseled patient to continue HIV medications outpatient Pain control with percocet 5-325 mg pain 1-5, percocet 10-325 pain 6-10, and morphine 4 mg prn breakthrough. Problem #2: Pruritis - improved Does not appear to be tinea capitis or fungal related PO Benadryl 50 mg PRN and 2% benadryl cream PRN Problem #3: Blister of finger Likely secondary to injury Problem # 4: AIDS CD4 count < 20 on 03/29/17. Continue home HAART medications ID consulted, continue meds outpatient Problem # 5: Normocytic Anemia Last hgb 7.6. Over the course of admission, level has fluctuated, with range being 7.4-9.3. Baseline appears to be 10, per patient records Consider due to dilutional anemia v malnutrition v anemia of chronic disease Type and cross and transfuse 1 unit PRBCs if Hgb < 7.0 Consider further workup if Hgb continues to downtrend Problem # 6: Hypokalemia - resolved Continue with daily BMP Likely having K losses due to diarrhea Continue to monitor electrolytes and replete as needed Problem #7: Hypocalcemia - resolved Continue with Tums 500 mg PO scheduled Q8H. 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 ICD Codes: B20 - Human immunodeficiency virus [HIV] disease Status: Chronic (3) Anemia Diagnosis: Secondary ICD Codes: D64.9 - Anemia, unspecified (4) Hypokalemia Diagnosis: Secondary ICD Codes: E87.6 - Hypokalemia Status: Acute (5) Malnutrition Diagnosis: Secondary ICD Codes: E46 - Unspecified protein-calorie malnutrition Status: Chronic (6) Nutrition, metabolism, and development symptoms Diagnosis: Secondary ICD Codes: R63.8 - Other symptoms and signs concerning food and fluid intake Status: Acute (7) Epigastric abdominal pain Diagnosis: Principal ICD Codes: R10.13 - Epigastric pain (8) Hypocalcemia Diagnosis: Secondary ICD Codes: E83.51 - Hypocalcemia Status: Resolved (9) Chronic pruritus Diagnosis: Secondary ICD Codes: L29.9 - Pruritus, unspecified (10) Blister of finger Diagnosis: Secondary ICD Codes: S60.429A - Blister (nonthermal) of unspecified finger, initial encounter Consultants Infectious Disease Brief History 52 y/o female with PMHx of AIDs presenting with 1 month of diarrhea. She reports having about 5-6 watery BMs daily for the past month. She reports her bowel movements as being watery, and clear. She denies any blood with her bowel movements. She denies eating any food, or bad tasting food. However, new this week, has been increasing abdominal pain. The pain started gradually and has gotten worse throughout the week. It is located over the epigastrium, described as a sharp 10 out of 10 pain, that radiates into her sides. Sitting up in bed and eating makes the pain worse. Nothing makes her stomach pain better. She also has been having constant chest pain for about a week. This chest pain comes and goes and is not related to exertion. She denies any fevers or chills. She denies any problems or difficulty with urination. She denies a new cough. CBC/BMP: 05/18/17 0913 05/18/17 0913 Significant Findings Laboratory Tests Test 05/15/17 20:25 05/16/17 07:08 05/16/17 07:18 05/17/17 08:45 Hemoglobin 7.4 GM/DL (11.6-15.3) 8.2 GM/DL (11.6-15.3) 7.9 GM/DL (11.6-15.3) Hematocrit 22.3 % (35.0-46.0) 24.6 % (35.0-46.0) 23.2 % (35.0-46.0) Random Glucose 62 MG/DL (74-106) 67 MG/DL (74-106) Albumin 1.3 GM/DL (3.4-5.0) 1.3 GM/DL (3.4-5.0) Calcium Level 7.3 MG/DL (8.5-10.1) 7.1 MG/DL (8.5-10.1) Chloride Level 119 MEQ/L (98-107) 121 MEQ/L (98-107) Carbon Dioxide Level 16.1 MEQ/L (21.0-32.0) 16.3 MEQ/L (21.0-32.0) Protein Corrected Calcium 7.4 MG/DL (8.5-10.1) 7.1 MG/DL (8.5-10.1) Red Blood Count 2.54 MIL/MM3 (4.00-5.30) 2.43 MIL/MM3 (4.00-5.30) Red Cell Distribution Width 17.6 % (11.6-17.2) 17.7 % (11.6-17.2) Monocytes (%) (Auto) 9.0 % (0.0-8.0) Eosinophils (%) (Auto) 18.3 % (0.0-4.0) Lymphocytes # (Auto) 0.7 TH/MM3 (1.0-4.8) Eosinophils # (Auto) 0.8 TH/MM3 (0-0.4) Band Neutrophils % 7 % (0-6) Eosinophils % 16 % (0-4) Myelocytes 1 % (0-0) Nucleated Red Blood Cells 1 /100 WBC (0-0) Plasma Cells 1 % (0-0) Ovalocytes 1+ (NORMAL) 1+ (NORMAL) [place] Cells 1+ (NORMAL) Keratocytes OCC (NORMAL) Neutrophils % (Manual) 77 % (16-70) Monocytes % 9 % (0-8) Tear Drop Cells 1+ (NORMAL) Alkaline Phosphatase 123 U/L (45-117) Test 05/18/17 09:13 Red Blood Count 2.29 MIL/MM3 (4.00-5.30) Hemoglobin 7.6 GM/DL (11.6-15.3) Hematocrit 22.1 % (35.0-46.0) Red Cell Distribution Width 17.6 % (11.6-17.2) Platelet Count 133 TH/MM3 (150-450) Monocytes % 12 % (0-8) Platelet Estimate LOW (NORMAL) Tear Drop Cells 1+ (NORMAL) Ovalocytes 1+ (NORMAL) Blood Urea Nitrogen 6 MG/DL (7-18) Albumin 1.3 GM/DL (3.4-5.0) Calcium Level 7.5 MG/DL (8.5-10.1) Alkaline Phosphatase 118 U/L (45-117) Chloride Level 117 MEQ/L (98-107) Carbon Dioxide Level 18.3 MEQ/L (21.0-32.0) Imaging Abdomen/pelvis CT 05/12: Persistent findings consistent with cirrhosis hepatocellular disease and varices. Portal venous system is patent. Atelectasis or scarring in the left lower lobe persists. Abnormal appearance of the mid and proximal sigmoid colon with somewhat lobular internal mucosa and possible bowel wall thickening suggesting the possibility of inflammatory process or colitis. Chest x-ray 05/13: No acute disease. V/Q lung scan 05/14: Negative for pulmonary embolism Liver ultrasound 05/16: No gallstones seen. No focal lesions in the liver. Right pleural effusion and ascites. PE at Discharge GENERAL: Cachectic, NAD, lying in bed comfortably SKIN: Multiple flat macules, that are hyperpigmented on all extremities. HEAD: Atraumatic. Normocephalic. EYES: EOMI. No scleral icterus. No injection or drainage. ENT: deferred NECK: Trachea midline. Supple. CHEST WALL: Tender to palpation in epigastric region CARDIOVASCULAR: RRR. No pitting edema in lower extremities. RESPIRATORY: clear to auscultation, no respiratory effort GASTROINTESTINAL: nondistended, bowel sounds present, mild tenderness to palpation of the left upper abdomen. No rebound tenderness or guarding. NEUROLOGICAL: Awake and alert. Cranial nerves grossly intact. Motor and sensory grossly within normal limits. Normal speech. Hospital Course Patient was started on Flagyl 500 mg every 6 hours and ciprofloxacin 400 mg every 12 hours. Stool cultures were sent as well as blood cultures. Infectious disease was consulted. Patient was noted to have a cardiac murmur. Patient was empirically placed on IV vancomycin. 2-D echo from 05/14 showing no evidence for endocarditis; Normal left ventricular size, wall thickness measured at the upper limits of normal, left ventricular systolic function is low normal with an estimate ejection fraction the range of 50-55%, trace mitral valve regurg, trace tricuspid valve regurg. Per infectious disease, the patient was started on Fidaxomicin for treatment of severe recurrent C. difficile colitis, and discontinue Flagyl, Cipro, and vancomycin. Hemoglobin on admission was 9.3, down trended to 7.5 however remained stable thereafter. Blood cultures obtained on 05/13 were with no growth after 5 days. The stool cultures did show many white blood cells but were negative for any bacterial growth. The patient was having many less bowel movements prior to discharge, noted to only have 1 and then 3 bowel movements the day prior to discharge. Her abdominal pain also significantly improved. Infectious disease recommended an oral vancomycin taper on discharge as well as azithromycin 1200 mg po every 7 days and Bactrim 1 double strength tablet po 3 times a week. Oral vancomycin taper as follows, 250 mg by mouth every 6 hours for 14 days followed by vancomycin 250 mg by mouth 3 times a day for 2 weeks followed by vancomycin 125 mg by mouth 4 times a day for 2 weeks followed by vancomycin and 125 mg by mouth every 12 hours for 2 months followed by vancomycin 125 mg by mouth daily for 2 months. The patient was verbally informed that she would have to complete her oral vancomycin taper as well as continuing taking her azithromycin and Bactrim tablets for prophylaxis. Per infectious disease recommendation, we advised the patient to continue her HAART medications and to pick those up at her pharmacy as prescribed per her HIV physician Dr. Marie. Pt Condition on Discharge: Stable Discharge Disposition: Disch w/ Home Health Serv Discharge Instructions DIET: Follow Instructions for: As Tolerated, No Restrictions Activities you can perform: Regular-No Restrictions, Weight Bearing as Fiordaliza Follow up Referrals: Infectious Disease - 1 Week with Frank PCP Follow-up - 1 Week New Medications: Azithromycin (Azithromycin) 600 Mg Tab 1200 MG PO Q7D for Infection, #90 TAB 0 Refills Sulfamethoxazole-Trimethoprim (Bactrim DS) 800-160 Mg Tab 1 TAB PO 3XWEEK for Infection, #90 TAB 0 Refills Take 1 tab by mouth on Mon, Wed, and Fri. Vancomycin (Vancocin) 250 Mg Cap 250 MG PO Q6HR for Infection for 14 Days, #56 CAP 0 Refills Take this medication 4 times/day for the first 14 days of treatment plan. Vancomycin (Vancomycin) 250 Mg Cap 250 MG PO TID for Infection for 14 Days, #42 CAP 0 Refills Take this medication after for another 14 days (after taking Vanco 4 times/day). Take it three times/day. Vancomycin (Vancomycin) 125 Mg Cap 125 MG PO QID for Infection, #56 CAP 0 Refills Take this medication after 28 days. Take it 4 times/day. Vancomycin (Vancomycin) 125 Mg Cap 125 MG PO Q12HR for Infection for 60 Days, #120 CAP 0 Refills Take this medication after 42 days. Take it 2 times per day for 2 months. Vancomycin (Vancomycin) 125 Mg Cap 125 MG PO DAILY for Infection, #60 CAP 0 Refills Take this medication one a day after 102 days of treatment. Take once/day for 2 months. Continued Medications: Aspirin (Aspirin Low Strength) 81 Mg Chew 81 MG CHEW DAILY for Blood Clot Prevention, #30 EA Lactobacillus Acidophilus (Acidophilus/l-Sporogenes) 1 Tab Tab 1 TAB PO TID for Diarrhea, #135 TAB Metoprolol Tartrate (Metoprolol Tartrate) 25 Mg Tab 12.5 MG PO Q12HR for heart health, #60 TAB Discontinued Medications: Oksohcyb-Oxrbuzjrtbkc-Dleskgqjcl (Triumeq) 600-50-300 Mg Tab 1 TAB PO DAILY for Mgmt Viral Infection, #7 TAB 0 Refills Hazardous agent; use appropriate precautions for handling & disposal. Azithromycin (Azithromycin) 600 Mg Tab 1200 MG PO Q7D for prophylaxis for 30 Days, #10 TAB 0 Refills Darunavir-Cobicistat (Prezcobix) 800-150 Mg Tab 1 TAB PO DAILY for Mgmt Viral Infection, #7 TAB 0 Refills Ondansetron (Zofran) 4 Mg Tab 4 MG PO Q6HR PRN for NAUSEA OR VOMITING, #60 TAB 0 Refills Brian Girard MD R2 May 18, 2017 20:09
== END 2017-05-18 17:49 | disposition home health service (06) | DRG 371 ==
LOC: NEPC 19:14 → NEDA 23:15 → N05B 05-13 01:51
PROVIDERS: ADMIT Family Medicine; ATTEND Family Medicine
DX: A04.71 Enterocolitis due to Clostridium difficile, recurrent (principal); B20 Human immunodeficiency virus [HIV] disease; K74.60 Unspecified cirrhosis of liver; R64 Cachexia; R18.8 Other ascites; E46 Unspecified protein-calorie malnutrition; E83.51 Hypocalcemia; E11.9 Type 2 diabetes mellitus without complications; F32.9 Major depressive disorder, single episode, unspecified; L29.9 Pruritus, unspecified; R01.1 Cardiac murmur, unspecified; E87.6 Hypokalemia; R07.89 Other chest pain; D63.8 Anemia in other chronic diseases classified elsewhere; Z91.14 Patient's other noncompliance with medication regimen; Z86.73 Personal history of transient ischemic attack (TIA), and cerebral infarction without residual deficits
CPT/HCPCS: 71010; 74177; 76705; 76937; 78582; 80048; 80053; 82948; 83605; 83690; 83735; 84155; 84484; 85007; 85014; 85018; 85025; 85027; 85379; 85610; 85730; 86480; 86850; 86900; 86901; 87040; 87116; 87205; 87206; 87207; 87328; 87329; 87493; 87497; 87506; 93005; 93306; 96361; 96374; 96375; A9540; A9567; C9113; J0131; J0610; J0744; J1650; J2270; J2405; J3411; J7030; J7040; Q0163; Q9967

== ENCOUNTER → 2017-06-22 | Day surgery (SDC) | payer MEDICARE, MEDICAID ==
[~2017-06-22] MED LIST changes: -ABAC1TAB3 PO; -ATOV750UDC PO; +BACT800T5 PO; -DARU1TAB2 PO; -DICY20TA10 PO; -FLUC100T2 PO; +LACTATED RINGER'S 1000 ML INJ 1,000 ML ONE; +PROPOFOL 200 MG/20 ML AMP IV ONE; -TRAM50TA PO; +VANC125C3 PO; +VANC1CAP7 PO; +VANC250C2 PO; -VANC500I3 PO; -ZOFR4TAB PO
--- NOTE | 2017-06-22 12:40 | GIPROC ---
[facility] [address] [facility], [address] EGD PROCEDURE REPORT EXAM DATE: 06/22/2017 PATIENT NAME: Epifanio Helm MR #: [id number] BIRTHDATE: 1965 ATTENDING: Juwan Lacy MD ORDER #: [id number] CHAIRLIFT OPERATOR: Hernandez Eugene RN STATUS: outpatient INDICATIONS: The patient is a 52 yr old female here for an EGD due to dysphagia and unexplained diarrhea PROCEDURE PERFORMED: EGD w/ biopsy EGD w/ dilation of esophagus via guidewire MEDICATIONS: None and Per Anesthesia. TOPICAL ANESTHETIC: CONSENT: The patient understands the risks and benefits of the procedure and understands that these risks include, but are not limited to: sedation, allergic reaction, infection, perforation and/or bleeding. Alternative means of evaluation and treatment include, among others: physical exam, x-rays, and/or surgical intervention. The patient elects to proceed with this endoscopic procedure. medical equipment was checked for proper function. Hand hygiene and appropriate measures for infection prevention was taken. After the risks, benefits and alternatives of the procedure were thoroughly explained, Informed consent was verified, confirmed and timeout was successfully executed by the treatment team. The patient was anesthetized with topical anesthesia and the EC-[id number] ([id number]) endoscope was introduced through the mouth and advanced to the second portion of the duodenum. Retroflexed views revealed no abnormalities The gastroscope was then slowly withdrawn and removed. ESOPHAGUS: A diffuse patch of abnormal mucosa was found in the distal esophagus. The mucosa had pseudomembranes. Multiple biopsies were performed. A mildly severe Schatzki ring was found at the gastroesophageal junction. The stricture was dilated using a 16mm (48Fr) savary dilator over guidewire. Following this dilation, there was no change in the appearance of the stricture. STOMACH: A polypoid shaped mass measuring 1.5 X 1.5cm in size with friable surfaces was found in the cardia. Multiple biopsies were performed. There was mild gastritis in the gastric antrum. Multiple biopsies were performed. DUODENUM: The duodenal mucosa appeared normal. Cold forcep biopsies were taken in the second portion. ADVERSE EVENTS: There were no complications. IMPRESSIONS: 1. Diffuse abnormal mucosa was found in the distal esophagus; The mucosa had pseudomembranes; multiple biopsies were performed 2. Schatzki ring was found at the gastroesophageal junction; The stricture was dilated using a 16mm (48Fr) savary dilator over guidewire.; Following this dilation, there was no change in the appearance of the stricture 3. Mass measuring 1.5 X 1.5cm in size was found in the cardia; multiple biopsies were performed 4. There was mild gastritis in the gastric antrum; multiple biopsies were performed 5. Normal duodenal mucosa 6. Retroflexed views revealed no abnormalities RECOMMENDATIONS: 1. Await biopsy results. Biopsy results will not be ready for 7-10 days. If you don't hear from us in two weeks, call our office for biopsy results. 2. Follow-up: GI clinic 2 week(s) PATIENT CONDITION: stable DISPOSITION: Home REPEAT EXAM: Juwan Lacy MD eSigned: Juwan Lacy MD 06/22/2017 12:39 PM cc: Jeremiah Velasco [facility] Amelie PATIENT NAME: Epifanio Helm MR#: [id number]
== END | disposition home or self-care (01) ==
LOC: ESDC 09:00
PROVIDERS: ATTEND Internal Medicine Gastroenterology
DX: R13.10 Dysphagia, unspecified (principal); R19.7 Diarrhea, unspecified; K22.2 Esophageal obstruction; K29.50 Unspecified chronic gastritis without bleeding; K31.89 Other diseases of stomach and duodenum
CPT/HCPCS: 00740; 43239; 43248; 88305; 88312; J3010; J7120

== ENCOUNTER 2017-06-24 12:45 | Inpatient (IN) | payer MEDICARE, MEDICAID ==
[~2017-06-24] VITALS: Ht 162.6 cm; Wt 51.0 kg
[~2017-06-24 12:45] MED LIST changes: -LACTATED RINGER'S 1000 ML INJ 1,000 ML ONE; -PROPOFOL 200 MG/20 ML AMP IV ONE
[2017-06-24 12:47] VITALS: BP 131/59; PULSE 91; RESP 20; TEMP 98.2; O2SAT 100
[2017-06-24] MEDS ORDERED: SODIUM CHLOR 0.9% 1000 ML INJ 1,000 ML IV SCH (14:44)
[2017-06-24] MEDS ORDERED: ONDANSETRON HCL 4 MG/2 ML VIAL IVP ONE (14:45)
[2017-06-24] MEDS ORDERED: SODIUM CHLORIDE 0.9% FLUSH 10 ML FLUSH IV FLUSH PRN (14:45)
[2017-06-24] MEDS ORDERED: MORPHINE SULFATE 4 MG/ML INJ IV PUSH ONE ×2 (14:45→17:30)
[2017-06-24 14:57] VITALS: RESP 18; O2SAT 98
--- NOTE | 2017-06-24 14:58 | PD ---
HPI Chief Complaint: Abdominal Pain Time Seen by Provider: 14:28 Travel History International Travel<30 days: No Contact w/Intl Traveler<30days: No Traveled to known affect area: No History of Present Illness HPI 52-year-old female presents to the emergency department for evaluation of abdominal pain that started on Tuesday, 2 days ago. Patient has past medical history of AIDS, C. difficile colitis. Patient also states she has been having diarrhea since Tuesday. She had an EGD done on Tuesday which showed a mass in the cardiac, gastritis. She states that since then she has had diffuse abdominal pain. Patient states is currently 10/10, radiates to the back. No exacerbating or alleviating factors. She also states that she has had some midsternal chest pain when she moves or pushes on the area for about 2 weeks. This is not new and is unchanged. She reports low-grade fevers. She reports nausea. Moderate severity. PFSH Past Medical History Hx Anticoagulant Therapy: No Arthritis: No Asthma: No Autoimmune Disease: Yes Blood Disorders: Yes Anxiety: No Depression: Yes Heart Rhythm Problems: No Cancer: No Cardiomyopathy: No Cardiovascular Problems: No High Cholesterol: No Chemotherapy: No Chest Pain: No Congestive Heart Failure: No Cirrhosis: Yes COPD: No Cerebrovascular Accident: Yes Diabetes: Yes Patient Takes Glucophage: No Diminished Hearing: No Endocrine: No Gastrointestinal Disorders: Yes (CIRRHOSIS) GERD: No Genitourinary: Yes (UTIS) Headaches: Yes Hiatal Hernia: No Hypertension: No Immune Disorder: Yes (HIV) Implanted Vascular Access Dvce: No Kidney Stones: No Musculoskeletal: Yes Neurologic: Yes (PT STATES R/T HER HIV) Psychiatric: Yes Reproductive: No Respiratory: No Migraines: Yes Radiation Therapy: No Renal Failure: No Seizures: Yes Sickle Cell Disease: No Sleep Apnea: No Thyroid Disease: No Ulcer: No Tetanus Vaccination: Unknown Influenza Vaccination: No ?: Not Menopausal: Yes : 2 Para: 0 Miscarriage: 1 : 1 Ectopic : Yes Ovarian Cysts: Yes Past Surgical History Abdominal Surgery: Yes (Expoloratory Lap) AICD: No Arteriovenous Shunt: No Cardiac Surgery: No Section: Yes Ear Surgery: No Endocrine Surgery: No Eye Surgery: No Genitourinary Surgery: No Gynecologic Surgery: Yes Hysterectomy: No Insulin Pump: No Joint Replacement: No Neurologic Surgery: No Oral Surgery: No Pacemaker: No Thoracic Surgery: No Other Surgery: Yes (, ectopic ) Social History Alcohol Use: Yes ([place]) Tobacco Use: No (8 yrs ago) Substance Use: No (9 MONTHS AGO CRACK) Allergies-Medications (Allergen,Severity, Reaction): Coded Allergies: No Known Allergies (Verified Adverse Reaction, Unknown, 06/24/17) Reported Meds & Prescriptions Reported Meds & Active Scripts Active Aspirin Low Strength (Aspirin) 81 Mg Chew 81 Mg CHEW DAILY Review of Systems Except as stated in HPI: all other systems reviewed are Neg Physical Exam Narrative GENERAL: Well-nourished, well-developed female patient, afebrile. SKIN: Focused skin assessment warm/dry. HEAD: Normocephalic. Atraumatic. EYES: No scleral icterus. No injection or drainage. NECK: Supple, trachea midline. No JVD or lymphadenopathy. CARDIOVASCULAR: Regular rate and rhythm without murmurs, gallops, or rubs. RESPIRATORY: Breath sounds equal bilaterally. No accessory muscle use. Lungs sounds are clear to auscultation. GASTROINTESTINAL: Abdomen soft and nondistended. Patient has diffuse tenderness even with light palpation. MUSCULOSKELETAL: No cyanosis, or edema. Midsternal chest pain is easily reproducible palpation and movement. BACK: Nontender without obvious deformity. No CVA tenderness. Data Data Last Documented VS Vital Signs Date Time Temp Pulse Resp B/P (MAP) Pulse Ox O2 Delivery O2 Flow Rate FiO2 06/24/17 17:25 77 18 156/72 (100) 97 Room Air 06/24/17 12:47 98.2 Orders Orders Complete Blood Count With Diff (06/24/17 14:44) Comprehensive Metabolic Panel (06/24/17 14:44) Lipase (06/24/17 14:44) Lactic Acid (06/24/17 14:44) Prothrombin Time / Inr (Pt) (06/24/17 14:44) Act Partial Throm Time (Ptt) (06/24/17 14:44) Urinalysis - C+S If Indicated (06/24/17 14:44) Ct Abd/Pel W Iv Contrast(Rout) (06/24/17 14:44) Iv Access Insert/Monitor (06/24/17 14:44) Ecg Monitoring (06/24/17 14:44) Oximetry (06/24/17 14:44) Morphine Inj (Morphine Inj) (06/24/17 14:45) Ondansetron Inj (Zofran Inj) (06/24/17 14:45) Sodium Chlor 0.9% 1000 Ml Inj (Ns 1000 M (06/24/17 14:44) Sodium Chloride 0.9% Flush (Ns Flush) (06/24/17 14:45) Electrocardiogram (06/24/17 14:44) Creatine Kinase (Cpk) (06/24/17 14:44) Troponin I (06/24/17 14:44) Chest, Single Ap (06/24/17 ) C Diff Toxin Pcr (06/24/17 14:58) Piperacil-Tazo 3.375 Gm Premix (Zosyn 3. (06/24/17 16:30) Metronidazole 500 Mg Inj (Flagyl 500 Mg (06/24/17 16:30) Blood Culture (06/24/17 16:27) Morphine Inj (Morphine Inj) (06/24/17 17:30) Calcium Gluconate Inj (Calcium Gluconate (06/24/17 17:45) Iohexol 350 Inj (Omnipaque 350 Inj) (06/24/17 17:55) Admit Order (Ed Use Only) (06/24/17 18:48) Labs Laboratory Tests Test 06/24/17 15:15 06/24/17 16:15 06/24/17 16:20 White Blood Count 7.1 TH/MM3 Red Blood Count 3.18 MIL/MM3 Hemoglobin 10.2 GM/DL Hematocrit 30.9 % Mean Corpuscular Volume 97.3 FL Mean Corpuscular Hemoglobin 32.0 PG Mean Corpuscular Hemoglobin Concent 32.9 % Red Cell Distribution Width 16.1 % Platelet Count 156 TH/MM3 Mean Platelet Volume 10.6 FL CBC Comment AUTO DIFF Differential Total Cells Counted 100 Neutrophils % (Manual) 32 % Band Neutrophils % 47 % Lymphocytes % 10 % Monocytes % 10 % Neutrophils # (Manual) 5.7 TH/MM3 Promyelocytes 1 % Differential Comment FINAL DIFF MANUAL Platelet Estimate NORMAL Platelet Morphology Comment NORMAL Red Cell Morphology Comment NORMAL Prothrombin Time 13.4 SEC Prothromb Time International Ratio 1.3 RATIO Activated Partial Thromboplast Time 31.7 SEC Lactic Acid Level 3.5 mmol/L Urine Color YELLOW Urine Turbidity HAZY Urine pH 5.5 Urine Specific Hope 1.020 Urine Protein 30 mg/dL Urine Glucose (UA) NEG mg/dL Urine Ketones NEG mg/dL Urine Occult Blood NEG Urine Nitrite NEG Urine Bilirubin NEG Urine Urobilinogen LESS THAN 2.0 MG/DL Urine Leukocyte Esterase SMALL Urine WBC 2 /hpf Urine Squamous Epithelial Cells 11 /hpf Urine Hyaline Casts 3 /lpf Urine Mucus FEW /lpf Microscopic Urinalysis Comment CULT NOT INDICATED Blood Urea Nitrogen 13 MG/DL Creatinine 0.75 MG/DL Random Glucose 89 MG/DL Total Protein 8.5 GM/DL Albumin 1.6 GM/DL Calcium Level 7.0 MG/DL Alkaline Phosphatase 120 U/L Aspartate Amino Transf (AST/SGOT) 41 U/L Alanine Aminotransferase (ALT/SGPT) 21 U/L Total Bilirubin 0.6 MG/DL Sodium Level 141 MEQ/L Potassium Level 3.6 MEQ/L Chloride Level 113 MEQ/L Carbon Dioxide Level 20.2 MEQ/L Anion Gap 8 MEQ/L Estimat Glomerular Filtration Rate 98 ML/MIN Protein Corrected Calcium MG/DL Total Creatine Kinase 132 U/L Troponin I LESS THAN 0.02 NG/ML Lipase 47 U/L [facility] Medical Decision Making Medical Screen Exam Complete: Yes Emergency Medical Condition: Yes Medical Record Reviewed: Yes Interpretation(s) chest x-ray - CONCLUSION: No acute disease. CT abdomen/pelvis - CONCLUSION: Cirrhosis and stigmata of portal hypertension. Improved appearance of the bowel Prominent inguinal lymphadenopathy Differential Diagnosis Diverticulitis versus UTI versus pyelonephritis versus pancreatitis versus C. difficile diarrhea versus pneumonia versus colitis Narrative Course 52-year-old female with history of AIDS presents to the emergency department for evaluation of diffuse abdominal pain since Tuesday with diarrhea. EKG, CBC, CMP, lipase, lactic acid, CK, troponin, PTT, PT/INR, UA are ordered and pending. Stool for C. difficile toxin is ordered and pending. Chest x-ray, CT abdomen/pelvis with IV contrast are ordered and pending. Patient is given normal saline 1 L IV bolus, morphine 4 mg IV, Zofran 4 mg IV. EKG shows sinus rhythm, heart rate 73, inverted T waves in V1, V3, V4, V5, V6. CBC shows normal WBC is 7.1, band neutrophils 47. CMP shows hypocalcemia 7.0. Lipase is 47. Lactic acid is 3.5. CK is 132. Troponin is less than 0.02. PT is 13.4, INR 1.3, PTT 31.7. UA shows small leukocyte esterase.. Chest x-ray shows no acute disease. CT abdomen/pelvis shows cirrhosis and stigmata of portal hypertension; improved appearance of the bowel; Prominent inguinal lymphadenopathy . Patient is started on Flagyl, Zosyn 4 and neutrophils, elevated lactic acid, abdominal pain. Source unclear. Patient will be admitted for further evaluation. Hospitalist is paged for admission. Dr. Gannon accepted admission. 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
--- NOTE | 2017-06-24 15:33 | RADRPT ---
EXAM DATE/TIME: 06/24/2017 14:56 [facility] COMPARISON: CHEST SINGLE AP, May 13, 2017, 1:04. INDICATIONS : Chest and body pain. MEDICAL HISTORY : diabetes, cirrhosis, CVA, Ovarian cysts, HIV SURGICAL HISTORY : section. ENCOUNTER: Initial ACUITY: 2 days PAIN SCORE: 9/10 LOCATION: Bilateral chest FINDINGS: A single view of the chest demonstrates the lungs to be symmetrically aerated without evidence of mas s, infiltrate or effusion. The cardiomediastinal contours are unremarkable. Osseous structures are intact. CONCLUSION: No acute disease. Yosef Puente MD FACR on June 24, 2017 at 15:29 Board Certified Radiologist. This report was verified electronically.
[2017-06-24 15:34] LABS: HEMATOCRIT 30.9 % (35.0-46.0); MEAN CELL VOLUME 97.3 FL (80.0-100.0); MEAN CORPUSCULAR HGB CONC 32.9 % (32.0-36.0); PLATELET COUNT 156 TH/MM3 (150-450); RED BLOOD COUNT 3.18 MIL/MM3 (4.00-5.30); RED CELL DISTRIBUTION WIDTH 16.1 % (11.6-17.2); WHITE BLOOD COUNT 7.1 TH/MM3 (4.0-11.0)
[2017-06-24 15:43] LABS: HEMO FLAGS AUTO DIFF
[2017-06-24 15:59] LABS: APTT (PATIENT) 31.7 SEC (24.3-30.1); INTERNATIONAL NORMALIZED RATIO 1.3 RATIO; PROTHROMBIN TIME - PATIENT 13.4 SEC (9.8-11.6)
[2017-06-24 16:18] LABS: BANDS 47 % (0-6); NEUTROPHIL # MANUAL DIFF 5.7 TH/MM3 (1.8-7.7); POLYS (SEG NEUTROPHILS) 32 % (16-70); PROMYELOCYTES 1 % (0-0); WBC DIFF SAMPLE 100
[2017-06-24 16:19] LABS: PLATELET ESTIMATE SMEAR NORMAL (NORMAL); PLATELET MORPHOLOGY NORMAL (NORMAL); SCAN/DIFF FINAL DIFF MANUAL
[2017-06-24] MEDS ORDERED: metroNIDAZOLE 500 MG INJ 100 ML IV ONE (16:30)
[2017-06-24] MEDS ORDERED: PIPERACIL-TAZO 3.375 GM PREMIX 50 ML IV ONE (16:30)
[2017-06-24 16:52] LABS: BLOOD, URINE NEG (NEG); COMMENT (UR) CULT NOT INDICATED; CULTURE IF INDICATED CULT NOT INDICATED; GLUCOSE,URINE NEG (NEG); HYALINE CAST, URINE 3 /lpf (RARE); KETONE, URINE NEG (NEG); MUCUS URINE FEW /lpf (OCC); NITRITE,URINE NEG (NEG); PH, URINE 5.5 (5.0-8.5); SQUAMOUS EPITHELIAL CELL URINE 11 /hpf (0-5); URINE COLOR YELLOW (YELLW/STRAW)
[2017-06-24 17:23] LABS: ALKALINE PHOSPHATASE 120 U/L (45-117); ALT (GPT) 21 U/L (10-53); ANION GAP 8 MEQ/L (5-15); AST (GOT) 41 U/L (15-37); BICARBONATE 20.2 MEQ/L (21.0-32.0); BLOOD UREA NITROGEN 13 MG/DL (7-18); CHLORIDE 113 MEQ/L (98-107); CREATINE KINASE 132 U/L (26-192); GLOMERULAR FILTRATION RATE 98 ML/MIN (>89); SODIUM (NA) 141 MEQ/L (136-145); TOTAL BILIRUBIN ADULT 0.6 MG/DL (0.2-1.0)
[2017-06-24 17:25] VITALS: BP 156/72; PULSE 77; RESP 18; O2SAT 97
[2017-06-24 17:32] LABS: POTASSIUM 3.6 MEQ/L (3.5-5.1)
[2017-06-24] MEDS ORDERED: CALCIUM GLUCONATE INJ 1 GM in DEXTROSE 5% IN WATER 100ML INJ 100 ML IV ONE ×2 (17:45)
[2017-06-24] MEDS ORDERED: IOHEXOL 350 MG/ML 10 ML VIAL (for RAD DIAG) IVCONTRAST ONE (17:55)
--- NOTE | 2017-06-24 18:16 | RADRPT ---
EXAM DATE/TIME: 06/24/2017 17:41 [facility] COMPARISON: CT ABDOMEN & PELVIS W CONTRAST, May 12, 2017, 21:45. INDICATIONS : Abdomen pain. IV CONTRAST: 100 cc Omnipaque 350 (iohexol) IV ORAL CONTRAST: No oral contrast ingested. RADIATION DOSE: 5.1 CTDIvol (mGy) MEDICAL HISTORY : HIV. Stroke Seizures. SURGICAL HISTORY : None. ENCOUNTER: Initial ACUITY: 1 day PAIN SCALE: 5/10 LOCATION: Bilateral abdomen. TECHNIQUE: Volumetric scanning of the abdomen and pelvis was performed. Using automated exposure control and ad justment of the mA and/or kV according to patient size, radiation dose was kept as low as reasonably achievable to obtain optimal diagnostic quality images. DICOM format image data is available electro nically for review and comparison. FINDINGS: LOWER LUNGS: There is mild persistent infiltrate or atelectasis in the lateral and posterior left lung base. LIVER: Cirrhotic appearance without evidence of focal mass or biliary ductal dilatation. Mild nonspecific ga llbladder wall thickening. SPLEEN: Mildly enlarged without focal lesion. Abundant varices in the left upper quadrant including what appe ars to be a spontaneous splenorenal shunt. PANCREAS: Within normal limits. KIDNEYS: Normal in size and shape. There is no mass, stone or hydronephrosis. ADRENAL GLANDS: Within normal limits. VASCULAR: There is no aortic aneurysm. BOWEL/MESENTERY: Improved appearance. Mild induration adjacent to the distal descending and sigmoid colon. No evidence of obstruction.. ABDOMINAL WALL: Within normal limits. RETROPERITONEUM: Mildly prominent retroperitoneal lymph nodes which appear stable. BLADDER: No wall thickening or mass. REPRODUCTIVE: Within normal limits. INGUINAL: Prominent bilateral inguinal lymphadenopathy largest visualized node on the right side measuring 2.3 cm and the largest node on the left approaching 3 cm. MUSCULOSKELETAL: Within normal limits for patient age. CONCLUSION: Cirrhosis and stigmata of portal hypertension. Improved appearance of the bowel Prominent inguinal lymphadenopathy Nelson Garg MD on June 24, 2017 at 18:06 Board Certified Radiologist. This report was verified electronically.
--- NOTE | 2017-06-24 18:55 | HHI.HP ---
[facility] Jeremiah Garcia MD Admission Diagnosis abdominal pain, immunodeficiency, hypocalcemia, lactic acidosis Diagnoses: (1) Sepsis Diagnosis: Principal (2) C. difficile colitis Diagnosis: Principal (3) Lactic acidosis Diagnosis: Principal (4) AIDS (acquired immune deficiency syndrome) Diagnosis: Principal (5) Hypocalcemia Diagnosis: Principal (6) Cirrhosis Diagnosis: Principal (7) Gastric mass Diagnosis: Principal (8) Intractable abdominal pain Diagnosis: Principal Travel History International Travel<30 Days: No Contact w/Intl Traveler <30 Da: No Traveled to Known Affected Are: No History of Present Illness This is a 51-year-old female with a PMH of Depression, HIV (CD4 <20 03/29/17), Cirrhosis and Gastric Mass who presented to the ER w/ complaints of abdominal pain x2 days. Reports associated nausea, vomiting and diarrhea. Previous admit 05/12-05/18/17 for similar complaints, found to have C Diff Colitis, s/p eval by ID, d/c'd on Vanc PO taper. S/p EGD by Dr. Lacy 06/22/17 w/ Schatzki ring s/p dilatation, Mass in Cardia 1.5 x 1.5cm s/p biopsies and mild gastritis s/p biopsies, pending pathology. On arrival, BP 131. 9, HR 91, O2 sat 100% on RA, Afebrile. WBC 7.2, baseline 4.2, significant bandemia 47%. Hgb 10.2. Calcium 7.0. INR 1.3. UA negative. CXR with no acute findings. CT Abd/Pelvis w/ cirrhosis and stigmata of portal hypertension, improved appearance of bowel, prominent inguinal lymphadenopathy. S/p Blood Cultures, Zosyn, Morphine/Zofran in ER. Review of Systems Except as stated in HPI: all other systems reviewed are Neg ROS: 14 point review of systems otherwise negative. Past Family Social History Past Medical History PMH: Depression, HIV (CD4 <20 03/29/17), Cirrhosis and Gastric Mass Past Surgical History PAST SURGICAL HISTORY: , Exploratory Laparotomy Allergies: Coded Allergies: No Known Allergies (Verified Allergy, Unknown, 06/24/17) Family History PAST FAMILY HISTORY: Reviewed. No h/o DM or CAD Social History PAST SOCIAL HISTORY: Occasional alcohol. Negative for tobacco. H/o Crack Cocaine. Physical Exam Vital Signs Vital Signs Date Time Temp Pulse Resp B/P (MAP) Pulse Ox O2 Delivery O2 Flow Rate FiO2 06/24/17 17:25 77 18 156/72 (100) 97 Room Air 06/24/17 14:57 18 98 Room Air 06/24/17 14:45 19 06/24/17 12:47 98.2 91 20 131/59 (83) 100 Room Air Physical Exam PE: GENERAL: Middle-aged black female in no acute distress. HEENT: PERRLA, EOMI. No scleral icterus or conjunctival pallor. No lid lag or facial droop. CARDIOVASCULAR: Regular rate and rhythm. No obvious murmurs to auscultation. No chest tenderness to palpation. RESPIRATORY: No obvious rhonchi or wheezing. Clear to auscultation. Breath sounds equal bilaterally. GASTROINTESTINAL: Abdomen soft, non-tender, nondistended. BS normal. MUSCULOSKELETAL: Extremities without clubbing, cyanosis, or edema. No obvious deformities. NEUROLOGICAL: Awake, alert and oriented x4. No focal neurologic deficits. Moving both upper and lower extremities spontaneously. Laboratory Laboratory Tests Test 06/24/17 15:15 06/24/17 16:15 06/24/17 16:20 White Blood Count 7.1 Red Blood Count 3.18 Hemoglobin 10.2 Hematocrit 30.9 Mean Corpuscular Volume 97.3 Mean Corpuscular Hemoglobin 32.0 Mean Corpuscular Hemoglobin Concent 32.9 Red Cell Distribution Width 16.1 Platelet Count 156 Mean Platelet Volume 10.6 CBC Comment AUTO DIFF Differential Total Cells Counted 100 Neutrophils % (Manual) 32 Band Neutrophils % 47 Lymphocytes % 10 Monocytes % 10 Neutrophils # (Manual) 5.7 Promyelocytes 1 Differential Comment FINAL DIFF MANUAL Platelet Estimate NORMAL Platelet Morphology Comment NORMAL Red Cell Morphology Comment NORMAL Prothrombin Time 13.4 Prothromb Time International Ratio 1.3 Activated Partial Thromboplast Time 31.7 Lactic Acid Level 3.5 Urine Color YELLOW Urine Turbidity HAZY Urine pH 5.5 Urine Specific Guthrie 1.020 Urine Protein 30 Urine Glucose (UA) NEG Urine Ketones NEG Urine Occult Blood NEG Urine Nitrite NEG Urine Bilirubin NEG Urine Urobilinogen LESS THAN 2.0 Urine Leukocyte Esterase SMALL Urine WBC 2 Urine Squamous Epithelial Cells 11 Urine Hyaline Casts 3 Urine Mucus FEW Microscopic Urinalysis Comment CULT NOT INDICATED Blood Urea Nitrogen 13 Creatinine 0.75 Random Glucose 89 Total Protein 8.5 Albumin 1.6 Calcium Level 7.0 Alkaline Phosphatase 120 Aspartate Amino Transf (AST/SGOT) 41 Alanine Aminotransferase (ALT/SGPT) 21 Total Bilirubin 0.6 Sodium Level 141 Potassium Level 3.6 Chloride Level 113 Carbon Dioxide Level 20.2 Anion Gap 8 Estimat Glomerular Filtration Rate 98 Protein Corrected Calcium Total Creatine Kinase 132 Troponin I LESS THAN 0.02 Lipase 47 Date/Time Source Procedure Growth Status 06/24/17 16:40 Blood Peripheral Aerobic Blood Culture Pending Received 06/24/17 16:40 Blood Peripheral Anaerobic Blood Culture Pending Received Result Diagram: 06/24/17 1515 06/24/17 1620 Caprini VTE Risk Assessment Caprini VTE Risk Assessment: No/Low Risk (score <= 1) VTE Pharm Contraindication: High risk for bleeding Caprini Risk Assessment Model Point Value = 1 Point Value = 2 Point Value = 3 Point Value = 5 Age 41-60 Minor surgery BMI > 25 kg/m2 Swollen legs Varicose veins or History of unexplained or recurrent spontaneous Oral contraceptives or hormone replacement Sepsis (< 1 month) Serious lung disease, including pneumonia (< 1 month) Abnormal pulmonary function Acute myocardial infarction Congestive heart failure (< 1 month) History of inflammatory bowel disease Medical patient at bed rest Age 61-74 Arthroscopic surgery Major open surgery (> 45 min) Laparoscopic surgery (> 45 min) Malignancy Confined to bed (> 72 hours) Immobilizing plaster cast Central venous access Age >= 75 History of VTE Family history of VTE Factor V Leiden Prothrombin [id number] Lupus anticoagulant Anticardiolipin antibodies Elevated serum homocysteine Heparin-induced thrombocytopenia Other congenital or acquired thrombophilia Stroke (< 1 month) Elective arthroplasty Hip, pelvis, or leg fracture Acute spinal cord injury (< 1 month) Prophylaxis Regimen Total Risk Factor Score Risk Level Prophylaxis Regimen 0-1 Low Early ambulation 2 Moderate Order ONE of the following: *Sequential Compression Device (SCD) *Heparin 5000 units SQ BID 3-4 Higher Order ONE of the following medications: *Heparin 5000 units SQ TID *Enoxaparin/Lovenox 40 mg SQ daily (WT < 150 kg, CrCl > 30 mL/min) *Enoxaparin/Lovenox 30 mg SQ daily (WT < 150 kg, CrCl > 10-29 mL/min) *Enoxaparin/Lovenox 30 mg SQ BID (WT < 150 kg, CrCl > 30 mL/min) AND/OR *Sequential Compression Device (SCD) 5 or more Highest Order ONE of the following medications: *Heparin 5000 units SQ TID (Preferred with Epidurals) *Enoxaparin/Lovenox 40 mg SQ daily (WT < 150 kg, CrCl > 30 mL/min) *Enoxaparin/Lovenox 30 mg SQ daily (WT < 150 kg, CrCl > 10-29 mL/min) *Enoxaparin/Lovenox 30 mg SQ BID (WT < 150 kg, CrCl > 30 mL/min) AND *Sequential Compression Device (SCD) Assessment and Plan Problem List: (1) Sepsis ICD Code: A41.9 - Sepsis, unspecified organism (2) C. difficile colitis ICD Code: A04.72 - Enterocolitis due to Clostridium difficile, not specified as recurrent (3) AIDS (acquired immune deficiency syndrome) ICD Code: B20 - Human immunodeficiency virus [HIV] disease (4) Intractable abdominal pain ICD Code: R10.9 - Unspecified abdominal pain (5) Gastric mass ICD Code: K31.9 - Disease of stomach and duodenum, unspecified (6) Cirrhosis ICD Code: K74.60 - Unspecified cirrhosis of liver (7) Hypocalcemia ICD Code: E83.51 - Hypocalcemia (8) Lactic acidosis ICD Code: E87.2 - Acidosis Assessment and Plan A/P: 1. Sepsis: Fever at home, HR 91, WBC normal however elevated from baseline, significant bandemia 47%, Lactic Acid 3.5. S/p Blood Cultures, Zosyn in ER, continue w/ IV Abx, follow up cultures. 2. C. Diff Colitis: Previous admit 05/12-05/18/17 for c/o abdominal pain, found to have C Diff Colitis, d/c'd on Vanc Taper. C Diff pending, resume Vanc PO. Consult ID. 3. AIDS: CD4 <20 on 03/29/17, following w/ Dr. Marie as outpatient, was to follow up to resume HAART. Start Zithro 1200mg q7d, Bactrim DS M/W/F. Consult ID for further recommendations in light of Sepsis. 4. Gastric Mass: s/p EGD by Dr. Lacy 06/22/17, found to have 1.5 x 1.5cm mass in cardia, s/p biopsies, pathology pending, will follow. 4. Intractable Abd Pain: s/p multiple doses of Morphine/Zofran in ER, likely multifactorial, secondary to Gastric mass, gastritis and C diff. Analgesics/ antiemetics as needed. Pepcid IV. 5. Cirrhosis: CT Abd/Pelvis w/ cirrhosis and portal hypertension, LFTs normal. Propranolol, Lasix, Aldactone. 6. Lactic Acidosis: Lactic Acid 3.5, likely secondary to Sepsis. IVF for hydration-caution w/ Cirrhosis, repeat Lactic Acid for trend. 7. Hypocalcemia: Chronic. Will replace and recheck in am. 8. DVT Prophylaxis: SCD/Teds. 9. Social work for d/c planning as needed. 10. Case discussed w/ ER physician at length. Physician Certification 2 Midnight Certification Type: Admission for Inpatient Services Order for Inpatient Services The services are ordered in accordance with Medicare regulations or non- Medicare payer requirements, as applicable. In the case of services not specified as inpatient-only, they are appropriately provided as inpatient services in accordance with the 2-midnight benchmark. Estimated LOS (days): 2 days is the estimated time the patient will need to remain in the hospital, assuming treatment plan goals are met and no additional complications. Post-Hospital Plan: Not yet determined Mari Britt MD Jun 24, 2017 18:55
[2017-06-24] MEDS ORDERED: LACTULOSE SYRUP 20 GM/30 ML CUP PO PRN (19:00)
[2017-06-24] MEDS ORDERED: BISACODYL 10 MG SUPP RECTAL PRN (19:00)
[2017-06-24] MEDS ORDERED: ACETAMINOPHEN 325 MG TAB PO PRN (19:00)
[2017-06-24] MEDS ORDERED: ONDANSETRON HCL 4 MG/2 ML VIAL IVP PRN (19:00)
[2017-06-24] MEDS ORDERED: SENNOSIDES 8.6 MG TAB PO PRN (19:00)
[2017-06-24] MEDS ORDERED: MAGNESIUM HYDROXIDE SUSP 30 ML CUP PO PRN (19:00)
[2017-06-24] MEDS ORDERED: NACL 0.45% IV ONE (19:45)
[2017-06-24] MEDS ORDERED: DEXT 5% IV ONE (19:45)
[2017-06-24] MEDS: AZITHROMYCIN 600 MG TAB PO SCH (20:00)
[2017-06-24] MEDS: DOCUSATE SODIUM 50 MG/SENNA 8.6 MG TAB PO SCH (21:00)
[2017-06-24] MEDS: PIPERACIL-TAZO 4.5 GM PREMIX 100 ML IV SCH (21:21)
[2017-06-24] MEDS: SODIUM CHLORIDE 0.9% FLUSH 10 ML FLUSH IV FLUSH SCH (22:30)
[2017-06-24] MEDS: VANCOMYCIN 500 MG VIAL (FOR ORAL USE ONLY) PO SCH (22:31)
[2017-06-24 22:50] VITALS: BP 125/63; PULSE 83; RESP 17; TEMP 96.5; O2SAT 100
[2017-06-24] MEDS: PROPRANOLOL HCL 10 MG TAB PO SCH (22:56)
[2017-06-24] MEDS: MORPHINE SULFATE 4 MG/ML INJ IV PUSH PRN (23:07)
[2017-06-25] MEDS: PIPERACIL-TAZO 4.5 GM PREMIX 100 ML IV SCH ×2 (03:44→09:29)
[2017-06-25 04:00] VITALS: BP 109/63; PULSE 81; RESP 17; TEMP 98.2; O2SAT 97
[2017-06-25 04:18] LABS: C. DIFF EPI 027 PRESUMPTIVE POSITIVE (NEGATIVE)
[2017-06-25 06:47] LABS: AUTOMATED NEUTROPHIL # 3.8 TH/MM3 (1.8-7.7); BASOPHIL % 0.3 % (0.0-2.0); EOSINOPHIL # 0.3 TH/MM3 (0-0.4); EOSINOPHIL % 5.2 % (0.0-4.0); HEMATOCRIT 26.2 % (35.0-46.0); HEMO FLAGS DIFF FINAL; LYMPHOCYTE # 0.5 TH/MM3 (1.0-4.8); MEAN CELL VOLUME 95.7 FL (80.0-100.0); MEAN CORPUSCULAR HEMOGLOBIN 31.9 PG (27.0-34.0); MEAN CORPUSCULAR HGB CONC 33.4 % (32.0-36.0); MONO % 7.3 % (0.0-8.0); NEUT % 77.2 % (16.0-70.0); PLATELET COUNT 123 TH/MM3 (150-450); RED BLOOD COUNT 2.74 MIL/MM3 (4.00-5.30); RED CELL DISTRIBUTION WIDTH 16.1 % (11.6-17.2); WHITE BLOOD COUNT 4.9 TH/MM3 (4.0-11.0)
[2017-06-25 07:13] LABS: INTERNATIONAL NORMALIZED RATIO 1.3 RATIO; PROTHROMBIN TIME - PATIENT 13.5 SEC (9.8-11.6)
[2017-06-25 07:15] LABS: ALKALINE PHOSPHATASE 115 U/L (45-117); ALT (GPT) 19 U/L (10-53); ANION GAP 6 MEQ/L (5-15); AST (GOT) 23 U/L (15-37); BICARBONATE 23.5 MEQ/L (21.0-32.0); BLOOD UREA NITROGEN 12 MG/DL (7-18); CHLORIDE 107 MEQ/L (98-107); GLOMERULAR FILTRATION RATE 72 ML/MIN (>89); SODIUM (NA) 136 MEQ/L (136-145); TOTAL BILIRUBIN ADULT 0.5 MG/DL (0.2-1.0)
[2017-06-25 07:18] LABS: POTASSIUM 2.6 MEQ/L (3.5-5.1)
[2017-06-25] MEDS: PROPRANOLOL HCL 10 MG TAB PO SCH ×2 (07:36→21:00)
[2017-06-25] MEDS: DOCUSATE SODIUM 50 MG/SENNA 8.6 MG TAB PO SCH ×2 (07:37→21:00)
[2017-06-25] MEDS: VANCOMYCIN 500 MG VIAL (FOR ORAL USE ONLY) PO SCH ×4 (07:38→22:10)
[2017-06-25] MEDS: SPIRONOLACTONE 50 MG TAB PO SCH ×2 (07:41→10:55)
[2017-06-25] MEDS: SODIUM CHLORIDE 0.9% FLUSH 10 ML FLUSH IV FLUSH SCH ×2 (07:43→22:11)
[2017-06-25 08:00] VITALS: BP 104/61; PULSE 75; RESP 16; TEMP 96.8; O2SAT 98
[2017-06-25] MEDS: FUROSEMIDE 40 MG TAB PO SCH ×2 (09:00→10:55)
[2017-06-25] MEDS ORDERED: POTASSIUM CHLORIDE 20 MEQ CONTROLLED RELEASE TAB PO ONE (10:45)
[2017-06-25] MEDS: LACTOBACILLUS ACIDOPHILUS TAB PO SCH ×2 (10:54→22:10)
[2017-06-25] MEDS: POTASSIUM CHLOR 20 MEQ PREMIX 100 ML IV SCH ×2 (11:00→13:34)
--- NOTE | 2017-06-25 11:51 | HHI.PR ---
Subjective Remarks f/u for abdominal pain and diarrhea Patient stated that since her diarrhea has worsened. She stated that her pain was in the epigastric area and the right upper area of her abdomen. Patient stated that at the moment she has no pain. She was given morphine at 11 :00 PM last night and did not require any more pain medication. Otherwise patient remains afebrile and has no other complaints. Objective Vitals Vital Signs Date Time Temp Pulse Resp B/P (MAP) Pulse Ox O2 Delivery O2 Flow Rate FiO2 06/25/17 08:00 96.8 75 16 104/61 (75) 98 06/25/17 04:00 98.2 81 17 109/63 (78) 97 06/24/17 22:50 96.5 83 17 125/63 (83) 100 06/24/17 17:25 77 18 156/72 (100) 97 Room Air 06/24/17 14:57 18 98 Room Air 06/24/17 14:45 19 06/24/17 12:47 98.2 91 20 131/59 (83) 100 Room Air I/O 06/24/17 06/24/17 06/24/17 06/25/17 06/25/17 06/25/17 07:00 15:00 23:00 07:00 15:00 23:00 Intake Total 1260 ml 240 ml 100 ml Output Total 100 ml Balance 1260 ml 140 ml 100 ml Intake Oral 240 ml IV Total 1260 ml 100 ml Output Urine Total 100 ml # Voids 4 Result Diagram: 06/25/17 0620 06/25/17 0620 Imaging Last Impressions Abdomen/Pelvis CT 06/24/17 1444 Signed Impressions: Service Date/Time: Saturday, June 24, 2017 17:41 - CONCLUSION: Cirrhosis and stigmata of portal hypertension. Improved appearance of the bowel Prominent inguinal lymphadenopathy Nelson Garg MD Chest X-Ray 06/24/17 0000 Signed Impressions: Service Date/Time: Saturday, June 24, 2017 14:56 - CONCLUSION: No acute disease. Yosef Puente MD FACR Objective Remarks GENERAL: very thin female in NAD CARDIOVASCULAR: Regular rate and rhythm without murmurs, gallops, or rubs. RESPIRATORY: Breath sounds equal bilaterally. No accessory muscle use. GASTROINTESTINAL: Abdomen soft, non-tender, nondistended. + TTP of the left lower rib. negative for peritoneal signs. Medications and IVs Current Medications Morphine Sulfate (Morphine Inj) 4 mg ONCE ONCE IV PUSH Last administered on 15:25; Start 06/24/17 at 14:45; Stop 06/24/17 at 14:47; Status DC Ondansetron HCl (Zofran Inj) 4 mg ONCE ONCE IVP Last administered on 14:45; Start 06/24/17 at 14:45; Stop 06/24/17 at 14:47; Status DC Sodium Chloride 1,000 ml @ 1,000 mls/hr Q1H IV Last administered on 06/24/17 15:24; Start 06/24/17 at 14:44; Stop 06/24/17 at 15:43; Status DC Sodium Chloride (NS Flush) 2 ml UNSCH PRN IV FLUSH FLUSH AFTER USING IV ACCESS ; Start 06/24/17 at 14:45; Stop 06/24/17 at 19:28; Status DC Piperacillin Sod/ Tazobactam Sod 50 ml @ 100 mls/hr ONCE ONCE IV Last administered on 06/24/17 16:45; Start 06/24/17 at 16:30; Stop 06/24/17 at 16:59 ; Status DC Metronidazole 100 ml @ 100 mls/hr ONCE ONCE IV Last administered on 16:44; Start 06/24/17 at 16:30; Stop 06/24/17 at 17:29; Status DC Morphine Sulfate (Morphine Inj) 4 mg ONCE ONCE IV PUSH Last administered on 17:56; Start 06/24/17 at 17:30; Stop 06/24/17 at 17:31; Status DC Calcium Gluconate 1 gm/Dextrose 110 ml @ 110 mls/hr ONCE ONCE IV Last administered on 06/24/17 17:57; Start 06/24/17 at 17:45; Stop 06/24/17 at 18:44 ; Status DC Iohexol (Omnipaque 350 Inj) 100 ml STK-MED ONCE IVCONTRAST Last administered on 06/24/17 17:55; Start 06/24/17 at 17:55; Stop 06/24/17 at 17:56; Status DC Piperacillin Sod/ Tazobactam Sod 100 ml @ 200 mls/hr Q6H IV Last administered on 06/25/17 09:29; Start 06/24/17 at 22:00 Propranolol HCl (Inderal) 10 mg Q12HR PO Last administered on 06/24/17 22:56; Start 06/24/17 at 21:00 Spironolactone (Aldactone) 50 mg DAILY PO Last administered on 06/25/17 10:55 ; Start 06/25/17 at 09:00 Furosemide (Lasix) 40 mg DAILY PO Last administered on 06/25/17 10:55; Start 06/25/17 at 09:00 Azithromycin (Zithromax) 1,200 mg Q7D PO ; Start 06/24/17 at 20:00 Trimethoprim/ Sulfamethoxazole (Bactrim Ds 800-160 Mg) 1 tab MoWeFr@09 PO ; Start 06/27/17 at 09:00 Sodium Chloride (NS Flush) 2 ml UNSCH PRN IV FLUSH FLUSH AFTER USING IV ACCESS ; Start 06/24/17 at 19:00 Sodium Chloride (NS Flush) 2 ml BID IV FLUSH Last administered on 06/25/17 07: 43; Start 06/24/17 at 21:00 Ondansetron HCl (Zofran Inj) 4 mg Q6H PRN IVP NAUSEA OR VOMITING; Start at 19:00 Acetaminophen (Tylenol) 650 mg Q6H PRN PO FEVER; Start 06/24/17 at 19:00 Morphine Sulfate (Morphine Inj) 2 mg Q3H PRN IV PUSH Pain 6-10 Last administered on 06/24/17 23:07; Start 06/24/17 at 19:00 Oxycodone HCl (Roxicodone) 5 mg Q4H PRN PO PAIN SCALE 3 TO 5; Start 06/24/17 at 19:00 Senna/Docusate Sodium (Karina-Colace) 1 tab BID PO ; Start 06/24/17 at 21:00 Magnesium Hydroxide (Milk Of Magnesia Liq) 30 ml Q12H PRN PO Mild constipation ; Start 06/24/17 at 19:00 Sennosides (Senokot) 17.2 mg Q12H PRN PO Moderate constipation; Start 06/24/17 at 19:00 Bisacodyl (Dulcolax Supp) 10 mg DAILY PRN RECTAL SEVERE CONSITIPATION; Start 06/24/17 at 19:00 Lactulose (Lactulose Liq) 30 ml DAILY PRN PO SEVERE CONSITIPATION; Start at 19:00 Dextrose/Sodium Chloride 500 ml @ 500 mls/hr BOLUS ONCE IV Last administered on 06/24/17 21:22; Start 06/24/17 at 19:45; Stop 06/24/17 at 20:44; Status DC Vancomycin HCl (VANCOMYCIN for oral use only) 250 mg QID PO Last administered on 06/25/17 07:38; Start 06/24/17 at 21:00 Potassium Chloride (KCl) 40 meq ONCE ONCE PO Last administered on 06/25/17 10 :55; Start 06/25/17 at 10:45; Stop 06/25/17 at 10:46; Status DC Potassium Chloride 100 ml @ 50 mls/hr Q2H IV Last administered on 06/25/17 11 :00; Start 06/25/17 at 11:00; Stop 06/25/17 at 14:59 Lactobacillus Acidophilus (Lactinex) 1 tab Q12HR PO Last administered on 10:54; Start 06/25/17 at 11:00 Potassium Chloride (KCl) 20 meq DAILY PO ; Start 06/26/17 at 09:00 A/P Problem List: (1) Sepsis ICD Code: A41.9 - Sepsis, unspecified organism (2) C. difficile colitis ICD Code: A04.72 - Enterocolitis due to Clostridium difficile, not specified as recurrent (3) AIDS (acquired immune deficiency syndrome) ICD Code: B20 - Human immunodeficiency virus [HIV] disease (4) Intractable abdominal pain ICD Code: R10.9 - Unspecified abdominal pain (5) Gastric mass ICD Code: K31.9 - Disease of stomach and duodenum, unspecified (6) Cirrhosis ICD Code: K74.60 - Unspecified cirrhosis of liver (7) Hypocalcemia ICD Code: E83.51 - Hypocalcemia (8) Lactic acidosis ICD Code: E87.2 - Acidosis Assessment and Plan This is a 52-year-old female who present with abdominal pain Abdominal pain, epigastric area -Resolved after dose of morphine last night. Asymptomatic. -CT scan of the abdomen showed cirrhosis of the liver with stigmata of portal hypertension. -May be secondary to multiple biopsies after EGD done on 06/22/2017. - s/p EGD by Dr. Lacy 06/22/17, found to have 1.5 x 1.5cm mass in cardia, s /p biopsies which showed mild chronic duodenitis with hemosiderin, chronic gastritis and tara, moderate chronic active gastritis. -Since patient has tara and esophageal and gastric area most likely needs to be on Diflucan. Pending recommendations from infectious disease. -Will consult GI since patient is having abdominal pain after procedure. C. Diff Colitis: - Previous admit 05/12-05/18/17 for c/o abdominal pain, found to have C Diff Colitis, d/c'd on Vanc Taper. -Worsening of diarrhea the past few days. Repeat C. difficile PCR positive. -Infectious disease consulted pending recommendations. AIDS: CD4 <20 on 03/29/17 - following w/ Dr. Marie as outpatient, was to follow up to resume HAART. Start Zithro 1200mg q7d, Bactrim DS M/W/F. -Infectious disease consulted. Cirrhosis: - CT Abd/Pelvis w/ cirrhosis and portal hypertension, LFTs normal. Propranolol , Lasix, Aldactone. Hypokalemia -Most like he secondary to GI losses. -Will supplement as needed. Hypocalcemia: Chronic. -Place as needed DVT Prophylaxis: SCD/Teds. Kristina Mccarty MD Jun 25, 2017 11:51
[2017-06-25 12:00] VITALS: BP 112/61; PULSE 73; RESP 16; TEMP 96.2; O2SAT 95
--- NOTE | 2017-06-25 14:19 | PD.ID.CON ---
History of Present Illness Service ID Consult Requested By Dr Mccarty Reason for Consult HIV/AIDS [facility] Primary Care Physician Jeremiah Garcia MD Diagnoses: History of Present Illness pt is known to me from multiple previous hospitalizations 52 yo female with end stage AIDS and poor compliance, disseminated MAC and recurrent C.diff presents with abdominal pain and non bloody diarrhea x 1 week She reports 5-6 BMs /day On presentation afebrile, with significant L shift of WBC, bandemia up to 47% She presented with lactic acidosis, which was quickly corrected with hydraton She saw he rHIV provider 6 mos ago and reports partial compliance with her HIV medx 2/ poor toleratbility; dw pharmacist from her o/p pharmacy: pt filled her prescription last month Her CD4< 20 and VL 5.5 log on the last report 2 mos ago She actually gained some weight with her weight oriana of 43 kg being in January Dw Review of Systems Constitutional: COMPLAINS OF: Weight loss Gastrointestinal: COMPLAINS OF: Abdominal pain, Diarrhea Except as stated in HPI: all other systems reviewed are Neg Past Family Social History Allergies: Coded Allergies: No Known Allergies (Verified Allergy, Unknown, 06/24/17) Past Medical History HIV/AIDS History of recent C. difficile infection Cirrhosis with ascites History of GI bleeding and gastritis History of stroke 2 Past Surgical History Reported Medications Home medx were reviewed with her o/p pharmacist triuniq (dolutegravir, ABC, lamivudine) 1 daily prescobix ((darunavir 800 mg/cobicistat 150 mg)) 1 daily Active Ordered Medications Pt's medications where reviewed (both in -pt and out -pt) Antibiotics Include: vanco PO azithro 1200 weekly Bactrim Mon/Tue/Tue zosyn Family History mother with cirrhosis of the liver Social History Patient denies any alcohol, tobacco, or drug use Used to drink ETOH Physical Exam Vital Signs Vital Signs Date Time Temp Pulse Resp B/P (MAP) Pulse Ox O2 Delivery O2 Flow Rate FiO2 06/25/17 12:00 96.2 73 16 112/61 (78) 95 06/25/17 08:00 96.8 75 16 104/61 (75) 98 06/25/17 04:00 98.2 81 17 109/63 (78) 97 06/24/17 22:50 96.5 83 17 125/63 (83) 100 06/24/17 17:25 77 18 156/72 (100) 97 Room Air 06/24/17 14:57 18 98 Room Air 06/24/17 14:45 19 Physical Exam CONSTITUTIONAL/GENERAL: This is a thin female patient, in no apparent distress , chronicaly ill appearing TUBES/LINES/DRAINS: SKIN: No jaundice, rashes, or lesions. Skin temperature appropriate. Not diaphoretic. HEAD: Atraumatic. Normocephalic. EYES: Pupils equal and round and reactive. Extraocular motions intact. No scleral icterus. No injection or drainage. Fundi not examined. ENT: Hearing grossly normal. Nose without bleeding or purulent drainage. oral mucosae without visible erythema, exudates, masses, or lesions. Edentulos No oral thsuh NECK: Trachea midline. Supple, nontender. CARDIOVASCULAR: Regular rate and rhythm without murmurs, gallops, or rubs. No JVD. Peripheral pulses symmetric. RESPIRATORY/CHEST: Symmetric, unlabored respirations. Clear to auscultation. Breath sounds equal bilaterally. No wheezes, rales, or rhonchi. GASTROINTESTINAL: Abdomen soft tender in LLQ, moderately distended. No hepato-splenomegaly, or palpable masses. No guarding. Bowel sounds present. GENITOURINARY: Without palpable bladder distension. MUSCULOSKELETAL: Extremities without clubbing, cyanosis, or edema. No joint tenderness or effusion noted. No calf tenderness. No mottling or clubbing. LYMPHATICS: No palpable cervical or supraclavicular adenopathy. NEUROLOGICAL: Awake and alert. Motor and sensory grossly within normal limits. Follows commands. Clear speech . Moves all extremities. PSYCHIATRIC: No obvious anxiety/depression. no apparent hallucinations or other psychotic thought process. Laboratory Laboratory Tests Test 06/24/17 15:15 06/24/17 16:15 06/24/17 16:20 06/25/17 01:30 White Blood Count 7.1 Red Blood Count 3.18 Hemoglobin 10.2 Hematocrit 30.9 Mean Corpuscular Volume 97.3 Mean Corpuscular Hemoglobin 32.0 Mean Corpuscular Hemoglobin Concent 32.9 Red Cell Distribution Width 16.1 Platelet Count 156 Mean Platelet Volume 10.6 CBC Comment AUTO DIFF Differential Total Cells Counted 100 Neutrophils % (Manual) 32 Band Neutrophils % 47 Lymphocytes % 10 Monocytes % 10 Neutrophils # (Manual) 5.7 Promyelocytes 1 Differential Comment FINAL DIFF MANUAL Platelet Estimate NORMAL Platelet Morphology Comment NORMAL Red Cell Morphology Comment NORMAL Prothrombin Time 13.4 Prothromb Time International Ratio 1.3 Activated Partial Thromboplast Time 31.7 Lactic Acid Level 3.5 Urine Color YELLOW Urine Turbidity HAZY Urine pH 5.5 Urine Specific [place] 1.020 Urine Protein 30 Urine Glucose (UA) NEG Urine Ketones NEG Urine Occult Blood NEG Urine Nitrite NEG Urine Bilirubin NEG Urine Urobilinogen LESS THAN 2.0 Urine Leukocyte Esterase SMALL Urine WBC 2 Urine Squamous Epithelial Cells 11 Urine Hyaline Casts 3 Urine Mucus FEW Microscopic Urinalysis Comment CULT NOT INDICATED Blood Urea Nitrogen 13 Creatinine 0.75 Random Glucose 89 Total Protein 8.5 Albumin 1.6 Calcium Level 7.0 Alkaline Phosphatase 120 Aspartate Amino Transf (AST/SGOT) 41 Alanine Aminotransferase (ALT/SGPT) 21 Total Bilirubin 0.6 Sodium Level 141 Potassium Level 3.6 Chloride Level 113 Carbon Dioxide Level 20.2 Anion Gap 8 Estimat Glomerular Filtration Rate 98 Protein Corrected Calcium Total Creatine Kinase 132 Troponin I LESS THAN 0.02 Lipase 47 Stool C. difficile Toxin (PCR) POSITIVE Stl C. difficile Toxin Epiderm 027 PRESUMPTIVE POSITIVE Test 06/25/17 06:20 White Blood Count 4.9 Red Blood Count 2.74 Hemoglobin 8.8 Hematocrit 26.2 Mean Corpuscular Volume 95.7 Mean Corpuscular Hemoglobin 31.9 Mean Corpuscular Hemoglobin Concent 33.4 Red Cell Distribution Width 16.1 Platelet Count 123 Mean Platelet Volume 10.7 Neutrophils (%) (Auto) 77.2 Lymphocytes (%) (Auto) 10.0 Monocytes (%) (Auto) 7.3 Eosinophils (%) (Auto) 5.2 Basophils (%) (Auto) 0.3 Neutrophils # (Auto) 3.8 Lymphocytes # (Auto) 0.5 Monocytes # (Auto) 0.4 Eosinophils # (Auto) 0.3 Basophils # (Auto) 0.0 CBC Comment DIFF FINAL Differential Comment Prothrombin Time 13.5 Prothromb Time International Ratio 1.3 Blood Urea Nitrogen 12 Creatinine 0.98 Random Glucose 83 Total Protein 8.5 Albumin 1.7 Calcium Level 7.5 Alkaline Phosphatase 115 Aspartate Amino Transf (AST/SGOT) 23 Alanine Aminotransferase (ALT/SGPT) 19 Total Bilirubin 0.5 Sodium Level 136 Potassium Level 2.6 Chloride Level 107 Carbon Dioxide Level 23.5 Anion Gap 6 Estimat Glomerular Filtration Rate 72 Lactic Acid Level 1.3 Date/Time Source Procedure Growth Status 06/24/17 16:40 Blood Peripheral Aerobic Blood Culture - Preliminary NO GROWTH IN 1 DAY Resulted 06/24/17 16:40 Blood Peripheral Anaerobic Blood Culture - Preliminary NO GROWTH IN 1 DAY Resulted Result Diagram: 06/25/17 0620 06/25/17 0620 Imaging Last Impressions Abdomen/Pelvis CT 06/24/17 1444 Signed Impressions: Service Date/Time: Saturday, June 24, 2017 17:41 - CONCLUSION: Cirrhosis and stigmata of portal hypertension. Improved appearance of the bowel Prominent inguinal lymphadenopathy Nelson Garg MD Chest X-Ray 06/24/17 0000 Signed Impressions: Service Date/Time: Saturday, June 24, 2017 14:56 - CONCLUSION: No acute disease. Yosef Puente MD FACR Assessment and Plan Assessment and Plan C.diff, hypervirulent strain with > 2nd reciurrentce MAC in stool previously, on Azithromycin HIV/end stage AIDS, ? compliance cotn tx for C.diff she will need to be converted to vanco taper after 2 weeks of vanco complated since its > 3 rd episode chk [employer] stool clx restart home HIV tx ( non formularly) cont profilaxis med (bactrim, azoithro) dc zosyn avoid systemic abx Discussed Condition With pharmacist Anaid Masterson MD Jun 25, 2017 14:19
--- NOTE | 2017-06-25 15:04 | PD.CONS ---
HPI History of Present Illness This is a 52 year old black female came into the hospital on with abdominal pain for 4 days. During examination of her abdomen, patient is very tender epigastric region, left mid to lower quadrant with minimal light palpation, and states the pain radiates over into her right side. She has had uncontrollable diarrhea up to 7-8 times a day for the past 4 days. Patient has a long-term history of EtOH abuse as well as cocaine abuse. Her last drink was on , last time she smoked cocaine was 10-11 months ago. Patient states that she was placed at [facility] on 06-22, but was only there for a couple hours. Patient denies any nausea or vomiting, denies fever. She is positive for approximately 10-14 pounds weight loss over the past few months, important to the record has been treated for HIV. Patient is positive for some dysphagia for several months, stating that food seems to get caught in her throat, but denies any heartburn. Patient is awake alert and a fairly good historian due to her history. Currently patient is being followed by infectious disease and attending. (Sofiya Benson) PFSH Past Medical History PMH: Depression, HIV (CD4 <20 03/29/17), Cirrhosis and Gastric Mass Smoking Cocaine/ abuse, quit 10-11 months ago Chronic cigarette abuse since the age of 13or 14 Diabetes Depression CVA Seizures Migraines UTI Ectopic many years ago Past Surgical History PAST SURGICAL HISTORY: , Exploratory Laparotomy (Sofiya Benson) Coded Allergies: No Known Allergies (Verified Allergy, Unknown, 06/24/17) Medications Administered Medications Medications (Trade) Dose Ordered Sig/Sue Route PRN Reason Start Time Stop Time Status Last Admin Dose Admin Propranolol HCl (Inderal) 10 mg Q12HR PO 06/24/17 21:00 06/24/17 22:56 Spironolactone (Aldactone) 50 mg DAILY PO 06/25/17 09:00 06/25/17 10:55 Furosemide (Lasix) 40 mg DAILY PO 06/25/17 09:00 06/25/17 10:55 Sodium Chloride (NS Flush) 2 ml BID IV FLUSH 06/24/17 21:00 06/25/17 07:43 Morphine Sulfate (Morphine Inj) 2 mg Q3H PRN IV PUSH Pain 6-10 06/24/17 19:00 06/24/17 23:07 Vancomycin HCl (VANCOMYCIN for oral use only) 250 mg QID PO 06/24/17 21:00 06/25/17 11:53 Lactobacillus Acidophilus (Lactinex) 1 tab Q12HR PO 06/25/17 11:00 06/25/17 10:54 Family History PAST FAMILY HISTORY: Reviewed. No h/o DM or CAD Social History PAST SOCIAL HISTORY: Occasional alcohol. Negative for tobacco. H/o Crack Cocaine. (Sofiya Benson) Review of Systems Constitutional: COMPLAINS OF: Fatigue, Weight loss, Change in appetite Gastrointestinal: COMPLAINS OF: Abdominal pain, Diarrhea, Difficulty Swallowing Musculoskeletal: COMPLAINS OF: Muscle aches Psychiatric: COMPLAINS OF: Anxiety (Sofiya Benson) GI Exam Vitals I&O Vital Signs Date Time Temp Pulse Resp B/P (MAP) Pulse Ox O2 Delivery O2 Flow Rate FiO2 06/25/17 12:00 96.2 73 16 112/61 (78) 95 06/25/17 08:00 96.8 75 16 104/61 (75) 98 06/25/17 04:00 98.2 81 17 109/63 (78) 97 06/24/17 22:50 96.5 83 17 125/63 (83) 100 06/24/17 17:25 77 18 156/72 (100) 97 Room Air 06/24/17 14:57 18 98 Room Air I/O 06/24/17 06/24/17 06/24/17 06/25/17 06/25/17 06/25/17 07:00 15:00 23:00 07:00 15:00 23:00 Intake Total 1260 ml 240 ml 100 ml Output Total 100 ml Balance 1260 ml 140 ml 100 ml Intake Oral 240 ml IV Total 1260 ml 100 ml Output Urine Total 100 ml # Voids 4 Imaging Last Impressions Abdomen/Pelvis CT 06/24/17 1444 Signed Impressions: Service Date/Time: Saturday, June 24, 2017 17:41 - CONCLUSION: Cirrhosis and stigmata of portal hypertension. Improved appearance of the bowel Prominent inguinal lymphadenopathy Nelson Garg MD Chest X-Ray 06/24/17 0000 Signed Impressions: Service Date/Time: Saturday, June 24, 2017 14:56 - CONCLUSION: No acute disease. Yosef Puente MD FACR Laboratory Test 06/24/17 15:15 06/24/17 16:15 06/24/17 16:20 06/25/17 01:30 White Blood Count 7.1 TH/MM3 Red Blood Count 3.18 MIL/MM3 Hemoglobin 10.2 GM/DL Hematocrit 30.9 % Mean Corpuscular Volume 97.3 FL Mean Corpuscular Hemoglobin 32.0 PG Mean Corpuscular Hemoglobin Concent 32.9 % Red Cell Distribution Width 16.1 % Platelet Count 156 TH/MM3 Mean Platelet Volume 10.6 FL CBC Comment AUTO DIFF Differential Total Cells Counted 100 Neutrophils % (Manual) 32 % Band Neutrophils % 47 % Lymphocytes % 10 % Monocytes % 10 % Neutrophils # (Manual) 5.7 TH/MM3 Promyelocytes 1 % Differential Comment FINAL DIFF MANUAL Platelet Estimate NORMAL Platelet Morphology Comment NORMAL Red Cell Morphology Comment NORMAL Prothrombin Time 13.4 SEC Prothromb Time International Ratio 1.3 RATIO Activated Partial Thromboplast Time 31.7 SEC Lactic Acid Level 3.5 mmol/L Urine Color YELLOW Urine Turbidity HAZY Urine pH 5.5 Urine Specific [place] 1.020 Urine Protein 30 mg/dL Urine Glucose (UA) NEG mg/dL Urine Ketones NEG mg/dL Urine Occult Blood NEG Urine Nitrite NEG Urine Bilirubin NEG Urine Urobilinogen LESS THAN 2.0 MG/DL Urine Leukocyte Esterase SMALL Urine WBC 2 /hpf Urine Squamous Epithelial Cells 11 /hpf Urine Hyaline Casts 3 /lpf Urine Mucus FEW /lpf Microscopic Urinalysis Comment CULT NOT INDICATED Blood Urea Nitrogen 13 MG/DL Creatinine 0.75 MG/DL Random Glucose 89 MG/DL Total Protein 8.5 GM/DL Albumin 1.6 GM/DL Calcium Level 7.0 MG/DL Alkaline Phosphatase 120 U/L Aspartate Amino Transf (AST/SGOT) 41 U/L Alanine Aminotransferase (ALT/SGPT) 21 U/L Total Bilirubin 0.6 MG/DL Sodium Level 141 MEQ/L Potassium Level 3.6 MEQ/L Chloride Level 113 MEQ/L Carbon Dioxide Level 20.2 MEQ/L Anion Gap 8 MEQ/L Estimat Glomerular Filtration Rate 98 ML/MIN Protein Corrected Calcium MG/DL Total Creatine Kinase 132 U/L Troponin I LESS THAN 0.02 NG/ML Lipase 47 U/L Stool C. difficile Toxin (PCR) POSITIVE Stl C. difficile Toxin Epiderm 027 PRESUMPTIVE POSITIVE Test 06/25/17 06:20 White Blood Count 4.9 TH/MM3 Red Blood Count 2.74 MIL/MM3 Hemoglobin 8.8 GM/DL Hematocrit 26.2 % Mean Corpuscular Volume 95.7 FL Mean Corpuscular Hemoglobin 31.9 PG Mean Corpuscular Hemoglobin Concent 33.4 % Red Cell Distribution Width 16.1 % Platelet Count 123 TH/MM3 Mean Platelet Volume 10.7 FL Neutrophils (%) (Auto) 77.2 % Lymphocytes (%) (Auto) 10.0 % Monocytes (%) (Auto) 7.3 % Eosinophils (%) (Auto) 5.2 % Basophils (%) (Auto) 0.3 % Neutrophils # (Auto) 3.8 TH/MM3 Lymphocytes # (Auto) 0.5 TH/MM3 Monocytes # (Auto) 0.4 TH/MM3 Eosinophils # (Auto) 0.3 TH/MM3 Basophils # (Auto) 0.0 TH/MM3 CBC Comment DIFF FINAL Differential Comment Prothrombin Time 13.5 SEC Prothromb Time International Ratio 1.3 RATIO Blood Urea Nitrogen 12 MG/DL Creatinine 0.98 MG/DL Random Glucose 83 MG/DL Total Protein 8.5 GM/DL Albumin 1.7 GM/DL Calcium Level 7.5 MG/DL Alkaline Phosphatase 115 U/L Aspartate Amino Transf (AST/SGOT) 23 U/L Alanine Aminotransferase (ALT/SGPT) 19 U/L Total Bilirubin 0.5 MG/DL Sodium Level 136 MEQ/L Potassium Level 2.6 MEQ/L Chloride Level 107 MEQ/L Carbon Dioxide Level 23.5 MEQ/L Anion Gap 6 MEQ/L Estimat Glomerular Filtration Rate 72 ML/MIN Lactic Acid Level 1.3 mmol/L Date/Time Source Procedure Growth Status 06/24/17 16:40 Blood Peripheral Aerobic Blood Culture - Preliminary NO GROWTH IN 1 DAY Resulted 06/24/17 16:40 Blood Peripheral Anaerobic Blood Culture - Preliminary NO GROWTH IN 1 DAY Resulted Physical Examination HEENT: Pupils round and reactive to light; normocephalic; atraumatic; no jaundice. Oral cavity clear NECK: Neck is supple, no JVD, no lymphadenopathy. CHEST: Chest is clear, but generalized decrease in breath sounds , no active wheezing or rhonchi CARDIAC: Regular rate and rhythm, no murmur noted ABDOMEN: Soft, mild distended, ; palpable liver bowel sounds are present in all four quadrants., Painful epigastric region left lower quadrant up to mid range radiate over into right quadrant EXTREMITIES: No clubbing, cyanosis, or edema. SKIN: Normal; no rash; no jaundice. Turgor thin MANAGER COSTING: No focal deficits; alert and oriented times three. (Sofiya Benson) Assessment and Plan Assessment: (1) Clostridium difficile diarrhea ICD Codes: A04.72 - Enterocolitis due to Clostridium difficile, not specified as recurrent (2) Esophageal stricture ICD Codes: K22.2 - Esophageal obstruction Status: Resolved (3) Dysphagia ICD Codes: R13.10 - Dysphagia, unspecified Status: Acute (4) Ascites ICD Codes: R18.8 - Other ascites Status: Acute (5) Liver cirrhosis ICD Codes: K74.60 - Unspecified cirrhosis of liver Status: Acute (6) HIV (human immunodeficiency virus infection) ICD Codes: Z21 - Asymptomatic human immunodeficiency virus [HIV] infection status Status: Acute (7) Abdominal distension ICD Codes: R14.0 - Abdominal distension (gaseous) Status: Acute (8) Weakness ICD Codes: R53.1 - Weakness Status: Acute (9) Hepatic cirrhosis ICD Codes: K74.60 - Unspecified cirrhosis of liver (10) Severe protein-calorie malnutrition ICD Codes: E43 - Unspecified severe protein-calorie malnutrition Status: Chronic (11) C. difficile colitis ICD Codes: A04.72 - Enterocolitis due to Clostridium difficile, not specified as recurrent Plan Assessment Diarrhea/abdominal pain/positive for C. difficile colitis, added Flagyl 250 mg IV every 8 hours, vancomycin by mouth, probiotics, monitor intake and output encourage by mouth fluids. Patient states abdominal pain is affecting her activity; it hurts to walk, cough and sneeze. Possible look at colonoscopy at a future date if symptoms continue. Patient has a history of cirrhosis with portal hypertension, abdomen has some mild distention with palpable liver, limited tactile exam secondary to her pain. Patient also has a significant history of EtOH abuse, HIV, cocaine abuse up until 10 or 11 months ago, counseled briefly on a healthy lifestyle with some quality of life. Dysphagia without heartburn, with possible partial obstruction. Possible endoscopy, TBA, could be assuming his Tuesday but patient is still fairly uncomfortable with her abdominal pain. Patient denies any nausea or vomiting, no hematemesis. Scans abdominal pelvis CT done on 06-24, shows cirrhosis and portal hypertension. Improved appearance of bowel prominent inguinal lymphadenopathy. Chest x-ray showed no acute disease Plan Flagyl 250 mg IV every 8 Probiotics Vancomycin 200 mg by mouth daily Beta blockers Bowel regimen, Karina-Colace DC'd, laxative only if warranted during this hospital stay Antibiotic Bactrim DS, azithromycin Potassium daily Possible EGD Tuesday pending her abdominal symptoms Plan of care based on findings and response to treatment above This patient was seen by myself and Dr. Rodriguez, documentation written on her behalf (Sofiya Benson) Physician Comments seen, examined agree with above recent egd reviewed-severe esophagitis, small mass at ge junction-pathology suggesting tara esophagitis /reflux esophagitis mass at ge junction-benign pathology , may need rebiopsy/eus Recommendations start Diflucan 100 mg po daily ba swallow in am egd/eus possible on Tuesday if available , if not op for further eval of the mass at ge junction (Karen Rodriguez MD) Sofiya Benson Jun 25, 2017 15:04 Karen Rodriguez MD Jun 25, 2017 18:03
[2017-06-25 16:00] VITALS: BP 106/60; PULSE 71; RESP 18; TEMP 96.6; O2SAT 96
[2017-06-25] MEDS: metroNIDAZOLE 250 MG INJ 50 ML IV SCH (16:41)
[2017-06-25] MEDS: PANTOPRAZOLE SODIUM 40 MG VIAL IV PUSH SCH (18:30)
[2017-06-25 20:00] VITALS: BP 100/56; PULSE 79; RESP 18; TEMP 97.5; O2SAT 96
[2017-06-25] MEDS: NYSTATIN SUSP 500,000 U/5 ML CUP SWISH-SWAL SCH (22:10)
[2017-06-25] MEDS: FLUCONAZOLE 100 MG TAB PO SCH (22:10)
[2017-06-25] MEDS: MORPHINE SULFATE 4 MG/ML INJ IV PUSH PRN (22:12)
[2017-06-26] VITALS (7 sets, daily range): BP systolic 96–120; BP diastolic 52–67; PULSE 70–82; RESP 16–20; TEMP 95.6–98.4; O2SAT 93–99
[2017-06-26] MEDS: metroNIDAZOLE 250 MG INJ 50 ML IV SCH ×3 (01:00→17:01)
[2017-06-26] MEDS: PANTOPRAZOLE SODIUM 40 MG VIAL IV PUSH SCH ×2 (05:39→17:00)
[2017-06-26] MEDS: SODIUM CHLORIDE 0.9% FLUSH 10 ML FLUSH IV FLUSH SCH ×2 (08:57→19:52)
[2017-06-26] MEDS: FLUCONAZOLE 100 MG TAB PO SCH (08:58)
[2017-06-26] MEDS: PROPRANOLOL HCL 10 MG TAB PO SCH ×2 (08:58→19:51)
[2017-06-26] MEDS: POTASSIUM CHLORIDE 20 MEQ CONTROLLED RELEASE TAB PO SCH (08:58)
[2017-06-26] MEDS: LACTOBACILLUS ACIDOPHILUS TAB PO SCH ×2 (08:58→19:51)
[2017-06-26] MEDS: VANCOMYCIN 500 MG VIAL (FOR ORAL USE ONLY) PO SCH ×4 (08:58→19:51)
[2017-06-26] MEDS: NYSTATIN SUSP 500,000 U/5 ML CUP SWISH-SWAL SCH ×4 (08:58→19:51)
[2017-06-26] MEDS: DOCUSATE SODIUM 50 MG/SENNA 8.6 MG TAB PO SCH ×2 (08:59→19:51)
[2017-06-26] MEDS: SPIRONOLACTONE 50 MG TAB PO SCH (08:59)
[2017-06-26] MEDS: FUROSEMIDE 40 MG TAB PO SCH (08:59)
--- NOTE | 2017-06-26 10:03 | RADRPT ---
EXAM DATE/TIME: 06/26/2017 09:20 [facility] COMPARISON: No previous studies available for comparison. INDICATIONS : Dysphgia FLUORO TIME: 1.2 minutes IMAGE COUNT: 11 CONTRAST: 1. E-Z HD Barium Sulfate (98% w/w) Liquid E-Z Paque Barium Sulfate (60% w/v, 41% w.w) MEDICAL HISTORY : HIV. Stroke Seizures. SURGICAL HISTORY : None. ENCOUNTER: Initial ACUITY: 2 months PAIN SCORE: 0/10 LOCATION: Esophagus FINDINGS: Air-contrast views of the hypopharynx demonstrate a normal mucosal surface without filling defect. R apid sequence images of the hypopharynx and cervical esophagus during the passage of barium demonstra te a normal swallowing function. No evidence of aspiration. Multiphasic examination of the esophagu s demonstrates no esophageal fold thickening, ulceration, or filling defect. Small sliding hiatal her stephani. CONCLUSION: 1. Small sliding hiatal hernia. Grant Villasenor MD on June 26, 2017 at 9:59 Board Certified Radiologist. This report was verified electronically.
[2017-06-26] MEDS: MORPHINE SULFATE 4 MG/ML INJ IV PUSH PRN ×2 (10:09→19:51)
[2017-06-26 11:06] LABS: HEMATOCRIT 28.7 % (35.0-46.0); MEAN CELL VOLUME 94.6 FL (80.0-100.0); MEAN CORPUSCULAR HEMOGLOBIN 31.3 PG (27.0-34.0); MEAN CORPUSCULAR HGB CONC 33.1 % (32.0-36.0); PLATELET COUNT 153 TH/MM3 (150-450); RED BLOOD COUNT 3.03 MIL/MM3 (4.00-5.30); RED CELL DISTRIBUTION WIDTH 15.6 % (11.6-17.2); REVIEW FLAG FINAL; WHITE BLOOD COUNT 4.3 TH/MM3 (4.0-11.0)
[2017-06-26 11:39] LABS: BICARBONATE 21.4 MEQ/L (21.0-32.0); POTASSIUM 3.6 MEQ/L (3.5-5.1)
--- NOTE | 2017-06-26 13:30 | HHI.PR ---
Subjective Remarks Follow-up visit C. difficile diarrhea, HIV/ AIDS, abdominal mass, cirrhosis. Patient seen and examined today sitting up in bed. Patient just had a barium swallow done this morning. States she is doing okay however she is itching. SHe's been scratching herself throughout the day. She is trying to take off the scab on the left elbow area. Advised patient not to do so as it may lead to open wound. Patient states that she has some diarrhea but not as many as when she came in. It has now improved. She states she states that she is now getting in and out of the bed because of voiding and not having to stool. Complaints of trunk pain, chest area, back area. States that it is painful especially when she cough or sneeze or when someone presses on it or when she takes deep breath. She denies any shortness of breath. States that she is tolerating her diet. Denies palpitations, headaches, dizziness. Denies fevers , chills. Denies dysuria. Denies hematochezia, hematemesis. Objective Vitals Vital Signs Date Time Temp Pulse Resp B/P (MAP) Pulse Ox O2 Delivery O2 Flow Rate FiO2 06/26/17 12:00 97.0 72 16 114/67 (83) 99 06/26/17 08:00 95.6 79 16 120/65 (83) 93 06/26/17 04:00 96.9 76 18 97/56 (70) 97 06/26/17 03:57 74 06/26/17 00:00 96.7 70 20 96/52 (67) 94 06/25/17 20:00 97.5 79 18 100/56 (71) 96 06/25/17 16:00 96.6 71 18 106/60 (75) 96 I/O 06/25/17 06/25/17 06/25/17 06/26/17 06/26/17 06/26/17 07:00 15:00 23:00 07:00 15:00 23:00 Intake Total 240 ml 200 ml 850 ml 770 ml 50 ml Output Total 100 ml 5 ml Balance 140 ml 200 ml 850 ml 765 ml 50 ml Intake Oral 240 ml 800 ml 720 ml IV Total 200 ml 50 ml 50 ml 50 ml Output Urine Total 100 ml 5 ml # Voids 4 4 # Bowel Movements 6 7 Result Diagram: 06/26/17 [facility] 06/26/17 1038 Imaging Last Impressions Barium Swallow X-Ray 06/26/17 0000 Signed Impressions: Service Date/Time: Monday, June 26, 2017 09:20 - CONCLUSION: 1. Small sliding hiatal hernia. Grant Villasenor MD Abdomen/Pelvis CT 06/24/17 1444 Signed Impressions: Service Date/Time: Saturday, June 24, 2017 17:41 - CONCLUSION: Cirrhosis and stigmata of portal hypertension. Improved appearance of the bowel Prominent inguinal lymphadenopathy Nelson Garg MD Chest X-Ray 06/24/17 0000 Signed Impressions: Service Date/Time: Saturday, June 24, 2017 14:56 - CONCLUSION: No acute disease. Yosef Puente MD FACR Objective Remarks GENERAL: This is a thin appearing, well-developed patient, in no apparent distress. SKIN: Warm and dry. Multiple scab lesions bilateral upper extremity, bilateral lower extremities. Multiple scratch soto right and left elbow as well as right lower extremity. HEENT: Normocephalic. Pupils equal round and reactive. Nose without bleeding. Airway patent. NECK: Trachea midline. No JVD. Supple. CARDIOVASCULAR: Regular rate and rhythm without murmurs, gallops, or rubs. RESPIRATORY: Diminished bases. No wheezes, rales, or rhonchi. GASTROINTESTINAL: Abdomen soft, non-tender, nondistended. Bowel Sounds normoactive x4. MUSCULOSKELETAL: Extremities without clubbing, cyanosis, or edema. NEUROLOGICAL: Awake and alert. Oriented to place, person. No focal neuro deficit. Moves all extremities. Normal speech. A/P Problem List: (1) Sepsis ICD Code: A41.9 - Sepsis, unspecified organism (2) C. difficile colitis ICD Code: A04.72 - Enterocolitis due to Clostridium difficile, not specified as recurrent (3) AIDS (acquired immune deficiency syndrome) ICD Code: B20 - Human immunodeficiency virus [HIV] disease (4) Intractable abdominal pain ICD Code: R10.9 - Unspecified abdominal pain (5) Gastric mass ICD Code: K31.9 - Disease of stomach and duodenum, unspecified (6) Cirrhosis ICD Code: K74.60 - Unspecified cirrhosis of liver (7) Hypocalcemia ICD Code: E83.51 - Hypocalcemia (8) Lactic acidosis ICD Code: E87.2 - Acidosis Assessment and Plan Patient is a 52-year-old female who present with abdominal pain. Abdominal pain, epigastric area - Improved with morphine last. Asymptomatic. - CT scan of the abdomen showed cirrhosis of the liver with stigmata of portal hypertension. - May be secondary to multiple biopsies after EGD done on 06/22/2017. - s/p EGD by Dr. Lacy 06/22/17, found to have 1.5 x 1.5cm mass in cardia , s/p biopsies which showed mild chronic duodenitis with hemosiderin, chronic gastritis and tara, moderate chronic active gastritis. - Since patient has tara and esophageal and gastric area most likely needs to be on Diflucan. Pending recommendations from infectious disease. - Reconsulted GI since patient is having abdominal pain after procedure. Barium swallow done with results small sliding hiatal hernia. C. Diff Colitis: - Previous admit 05/12-05/18/17 for c/o abdominal pain, found to have C Diff Colitis, d/c'd on Vanc Taper. - Worsening of diarrhea the past few days. Repeat C. difficile PCR positive. - Infectious disease consulted pending recommendations. AIDS: CD4 <20 on 03/29/17 - following w/ Dr. Marie as outpatient, was to follow up to resume HAART. Start Zithro 1200mg q7d, Bactrim DS M/W/. -Infectious disease following Cirrhosis: - CT Abd/Pelvis w/ cirrhosis and portal hypertension, LFTs normal. Propranolol, Lasix, Aldactone. Hypokalemia - Most like he secondary to GI losses. -Will supplement as needed. - To potassium trend Hypocalcemia: Chronic. - Place as needed DVT Prophylaxis: SCD/Teds. Discharge Planning Plan to DC home when cleared by GI. May need home healthcare or SNF placement. Radha Richmond [facility] Jun 26, 2017 13:30
--- NOTE | 2017-06-26 14:02 | HHI.GIFU ---
Subjective Remarks Pt resting in bed comfortably, no apparent distress at this time. She reports upper and mid abdominal pain worse with palpation. Denies nausea, vomiting. Has been eating regular food, denies dysphagia. Bowel movement this morning, loose, denies blood in stool. (Nicole Song) Objective Vitals I&O Vital Signs Date Time Temp Pulse Resp B/P (MAP) Pulse Ox O2 Delivery O2 Flow Rate FiO2 06/26/17 12:00 97.0 72 16 114/67 (83) 99 06/26/17 08:00 95.6 79 16 120/65 (83) 93 06/26/17 04:00 96.9 76 18 97/56 (70) 97 06/26/17 03:57 74 06/26/17 00:00 96.7 70 20 96/52 (67) 94 06/25/17 20:00 97.5 79 18 100/56 (71) 96 06/25/17 16:00 96.6 71 18 106/60 (75) 96 I/O 06/25/17 06/25/17 06/25/17 06/26/17 06/26/17 06/26/17 07:00 15:00 23:00 07:00 15:00 23:00 Intake Total 240 ml 200 ml 850 ml 770 ml 50 ml Output Total 100 ml 5 ml Balance 140 ml 200 ml 850 ml 765 ml 50 ml Intake Oral 240 ml 800 ml 720 ml IV Total 200 ml 50 ml 50 ml 50 ml Output Urine Total 100 ml 5 ml # Voids 4 4 # Bowel Movements 6 7 Laboratory Laboratory Tests Test 06/26/17 10:38 White Blood Count 4.3 Red Blood Count 3.03 Hemoglobin 9.5 Hematocrit 28.7 Mean Corpuscular Volume 94.6 Mean Corpuscular Hemoglobin 31.3 Mean Corpuscular Hemoglobin Concent 33.1 Red Cell Distribution Width 15.6 Platelet Count 153 Mean Platelet Volume 9.9 Blood Urea Nitrogen 10 Creatinine 0.81 Random Glucose 83 Calcium Level 7.8 Sodium Level 138 Potassium Level 3.6 Chloride Level 111 Carbon Dioxide Level 21.4 Anion Gap 6 Estimat Glomerular Filtration Rate 89 Date/Time Source Procedure Growth Status 06/24/17 16:40 Blood Peripheral Aerobic Blood Culture - Preliminary NO GROWTH IN 2 DAYS Resulted 06/24/17 16:40 Blood Peripheral Anaerobic Blood Culture - Preliminary NO GROWTH IN 2 DAYS Resulted Imaging Last Impressions Barium Swallow X-Ray 06/26/17 0000 Signed Impressions: Service Date/Time: Monday, June 26, 2017 09:20 - CONCLUSION: 1. Small sliding hiatal hernia. Grant Villasenor MD Abdomen/Pelvis CT 06/24/17 1444 Signed Impressions: Service Date/Time: Saturday, June 24, 2017 17:41 - CONCLUSION: Cirrhosis and stigmata of portal hypertension. Improved appearance of the bowel Prominent inguinal lymphadenopathy Nelson Garg MD Chest X-Ray 06/24/17 0000 Signed Impressions: Service Date/Time: Saturday, June 24, 2017 14:56 - CONCLUSION: No acute disease. Yosef Puente MD FACR Physical Exam HEENT: Normocephalic; atraumatic; no jaundice. CHEST: CTA CARDIAC: RRR ABDOMEN: Distended, diffuse TTP; (+) hepatosplenomegaly; bowel sounds are present in all four quadrants. EXTREMITIES: No clubbing, cyanosis, or edema. SKIN: Normal; no rash; no jaundice. MUSIC EDUCATION DIRECTOR: No focal deficits; alert and oriented times three. (Nicole Song [facility]) Assessment and Plan Assessment: (1) Clostridium difficile diarrhea ICD Codes: A04.72 - Enterocolitis due to Clostridium difficile, not specified as recurrent (2) Esophageal stricture ICD Codes: K22.2 - Esophageal obstruction Status: Resolved (3) Dysphagia ICD Codes: R13.10 - Dysphagia, unspecified Status: Acute (4) Ascites ICD Codes: R18.8 - Other ascites Status: Acute (5) Liver cirrhosis ICD Codes: K74.60 - Unspecified cirrhosis of liver Status: Acute (6) HIV (human immunodeficiency virus infection) ICD Codes: Z21 - Asymptomatic human immunodeficiency virus [HIV] infection status Status: Acute (7) Abdominal distension ICD Codes: R14.0 - Abdominal distension (gaseous) Status: Acute (8) Weakness ICD Codes: R53.1 - Weakness Status: Acute (9) Hepatic cirrhosis ICD Codes: K74.60 - Unspecified cirrhosis of liver (10) Severe protein-calorie malnutrition ICD Codes: E43 - Unspecified severe protein-calorie malnutrition Status: Chronic (11) C. difficile colitis ICD Codes: A04.72 - Enterocolitis due to Clostridium difficile, not specified as recurrent Plan Assessment Diarrhea/abdominal pain/positive for C. difficile colitis, added Flagyl 250 mg IV every 8 hours, vancomycin by mouth, probiotics, monitor intake and output encourage by mouth fluids. Patient states abdominal pain is affecting her activity; it hurts to walk, cough and sneeze. Possible look at colonoscopy at a future date if symptoms continue. Patient has a history of cirrhosis with portal hypertension, abdomen has some mild distention with palpable liver, limited tactile exam secondary to her pain. Patient also has a significant history of EtOH abuse, HIV, cocaine abuse up until 10 or 11 months ago, counseled briefly on a healthy lifestyle with some quality of life. Dysphagia without heartburn, with possible partial obstruction. Possible endoscopy, TBA, could be assuming his Tuesday but patient is still fairly uncomfortable with her abdominal pain. Patient denies any nausea or vomiting, no hematemesis. Scans abdominal pelvis CT done on 06-24, shows cirrhosis and portal hypertension. Improved appearance of bowel prominent inguinal lymphadenopathy. Chest x-ray showed no acute disease Plan Flagyl 250 mg IV every 8 Probiotics Vancomycin 200 mg by mouth daily Beta blockers Bowel regimen, Karina-Colace DC'd, laxative only if warranted during this hospital stay Antibiotic Bactrim DS, azithromycin Potassium daily Possible EGD Tuesday pending her abdominal symptoms Plan of care based on findings and response to treatment above This patient was seen by myself and Dr. Rodriguez, documentation written on her behalf (Nicole SongP) Assessment & Plan Remarks Assessment - Diarrhea- (+) C. Diff- presumptive positive Epid. Vancomycin. Flagyl. - Dysphagia- Recent EGD --> Severe esophagitis, small mass at the GE junction. Pathology suggesting tara esophagitis/ reflux esophagitis. Mass at GE junction- benign pathology. Pt was started on Diflucan 100mg PO daily. Nystatin. Barium swallow (06/26) --> Normal swallowing function. Small sliding hiatal hernia. Pt denies any dysphagia today. - Cirrhosis- CT abdomen and pelvis with IV contrast (06/24) --> Cirrhosis and stigmata of portal HTN. Improved appearance of the bowel. Prominent inguinal lymphadenopathy. Propanolol. LFTs WNL. Spironolactone. Lasix. - Abdominal pain- Diffusely TTP. Imaging as above. - AIDS- per attending Plan - Continue Diflucan - Contine Propranolol - Continue Spironolactone, Lasix - Continue Flagyl, Vancomycin - NPO after MN - EGD with EUS tomorrow if Dr. Lacy is available - Further recommendations to follow Pt seen and examined by myself and Dr. Rodriguez and this note is written on her behalf (Nicole Song) Nicole Song Jun 26, 2017 14:02 Karen Rodriguez MD Jun 26, 2017 18:16
[2017-06-26] MEDS: LACTIC ACID (AMMONIUM LACTATE) 12% LOTION 225 GM BTL TOPICAL SCH ×2 (15:19→19:52)
[2017-06-26] MEDS: diphenhydrAMINE HCL 25 MG CAP PO PRN (19:50)
--- NOTE | 2017-06-26 23:26 | EKG ---
Date Performed: 06/24/2017 Time Performed: 14:56:27 PTAGE: 52 years EKG: Sinus rhythm POSSIBLE LEFT ATRIAL ENLARGEMENT MODERATE T-WAVE ABNORMALITY, CONSIDER ANTERIOR ISCHEMIA ABNORMAL EC G NO PREVIOUS TRACING DOCTOR: Bennie Block Interpretating Date/Time 06/26/2017 23:25:28
[2017-06-27] VITALS: BP 102/59; PULSE 71; RESP 20; TEMP 97; O2SAT 97
[2017-06-27] MEDS: metroNIDAZOLE 250 MG INJ 50 ML IV SCH ×3 (00:51→17:13)
[2017-06-27 03:47] VITALS: BP 106/60; PULSE 74; RESP 20; TEMP 98; O2SAT 99
[2017-06-27] MEDS: PANTOPRAZOLE SODIUM 40 MG VIAL IV PUSH SCH ×2 (04:37→17:14)
[2017-06-27 07:22] LABS: BICARBONATE 23.5 MEQ/L (21.0-32.0); POTASSIUM 3.6 MEQ/L (3.5-5.1)
[2017-06-27 08:00] VITALS: BP 98/55; PULSE 77; RESP 16; TEMP 97.2; O2SAT 98
[2017-06-27] MEDS: DOCUSATE SODIUM 50 MG/SENNA 8.6 MG TAB PO SCH ×2 (08:35→21:00)
[2017-06-27] MEDS: SULFAMETHOXAZOLE-TRIMETHOPRIM DS 800-160 MG TAB PO SCH (08:35)
[2017-06-27] MEDS: FLUCONAZOLE 100 MG TAB PO SCH (08:35)
[2017-06-27] MEDS: NYSTATIN SUSP 500,000 U/5 ML CUP SWISH-SWAL SCH ×4 (08:36→21:45)
[2017-06-27] MEDS: POTASSIUM CHLORIDE 20 MEQ CONTROLLED RELEASE TAB PO SCH (08:36)
[2017-06-27] MEDS: SPIRONOLACTONE 50 MG TAB PO SCH (08:36)
[2017-06-27] MEDS: PROPRANOLOL HCL 10 MG TAB PO SCH ×2 (08:36→21:00)
[2017-06-27] MEDS: FUROSEMIDE 40 MG TAB PO SCH (08:36)
[2017-06-27] MEDS: VANCOMYCIN 500 MG VIAL (FOR ORAL USE ONLY) PO SCH ×4 (08:36→21:46)
[2017-06-27] MEDS: LACTIC ACID (AMMONIUM LACTATE) 12% LOTION 225 GM BTL TOPICAL SCH ×2 (08:36→21:46)
[2017-06-27] MEDS: LACTOBACILLUS ACIDOPHILUS TAB PO SCH ×2 (08:36→21:45)
[2017-06-27] MEDS: SODIUM CHLORIDE 0.9% FLUSH 10 ML FLUSH IV FLUSH SCH ×2 (08:37→21:46)
[2017-06-27] MEDS: MORPHINE SULFATE 4 MG/ML INJ IV PUSH PRN ×2 (08:53→18:56)
[2017-06-27] MEDS: SODIUM CHLORIDE 0.9% FLUSH 10 ML FLUSH IV FLUSH PRN ×2 (08:54→18:57)
--- NOTE | 2017-06-27 09:30 | HHI.PR ---
Subjective Remarks Follow-up visit C. difficile diarrhea, HIV/ AIDS, abdominal mass, cirrhosis. Patient seen and examined today sitting up in bed. Patient just had a barium swallow done this morning. States she is doing okay however she is itching. SHe's been scratching herself throughout the day. She is trying to take off the scab on the left elbow area. Advised patient not to do so as it may lead to open wound. Patient states that she has some diarrhea but not as many as when she came in. It has now improved. She states she states that she is now getting in and out of the bed because of voiding and not having to stool. Complaints of trunk pain, chest area, back area. States that it is painful especially when she cough or sneeze or when someone presses on it or when she takes deep breath. She denies any shortness of breath. States that she is tolerating her diet. Denies palpitations, headaches, dizziness. Denies fevers , chills. Denies dysuria. Denies hematochezia, hematemesis. Objective Vitals Vital Signs Date Time Temp Pulse Resp B/P (MAP) Pulse Ox O2 Delivery O2 Flow Rate FiO2 06/27/17 08:00 97.2 77 16 98/55 (69) 98 06/27/17 03:47 98.0 74 20 106/60 (75) 99 06/27/17 00:00 97.0 71 20 102/59 (73) 97 06/26/17 20:00 98.4 74 20 113/59 (77) 96 06/26/17 16:00 97.4 82 18 107/64 (78) 98 06/26/17 12:00 97.0 72 16 114/67 (83) 99 I/O 06/26/17 06/26/17 06/26/17 06/27/17 06/27/17 06/27/17 07:00 15:00 23:00 07:00 15:00 23:00 Intake Total 770 ml 50 ml 1450 ml 290 ml Output Total 5 ml 1 ml Balance 765 ml 50 ml 1450 ml 289 ml Intake Oral 720 ml 1400 ml 240 ml IV Total 50 ml 50 ml 50 ml 50 ml Output Urine Total 5 ml Stool Total 1 ml # Voids 4 4 # Bowel Movements 7 4 Result Diagram: 06/26/17 1038 06/27/17 0512 Imaging Last Impressions Barium Swallow X-Ray 06/26/17 0000 Signed Impressions: Service Date/Time: Monday, June 26, 2017 09:20 - CONCLUSION: 1. Small sliding hiatal hernia. Grant Villasenor MD Abdomen/Pelvis CT 06/24/17 1444 Signed Impressions: Service Date/Time: Saturday, June 24, 2017 17:41 - CONCLUSION: Cirrhosis and stigmata of portal hypertension. Improved appearance of the bowel Prominent inguinal lymphadenopathy Nelson Garg MD Chest X-Ray 06/24/17 0000 Signed Impressions: Service Date/Time: Saturday, June 24, 2017 14:56 - CONCLUSION: No acute disease. Yosef Puente MD FACR Objective Remarks GENERAL: This is a thin appearing, well-developed patient, in no apparent distress. SKIN: Warm and dry. Multiple scab lesions bilateral upper extremity, bilateral lower extremities. Multiple scratch soto right and left elbow as well as right lower extremity. HEENT: Normocephalic. Pupils equal round and reactive. Nose without bleeding. Airway patent. NECK: Trachea midline. No JVD. Supple. CARDIOVASCULAR: Regular rate and rhythm without murmurs, gallops, or rubs. RESPIRATORY: Diminished bases. No wheezes, rales, or rhonchi. GASTROINTESTINAL: Abdomen soft, nondistended. Bowel Sounds normoactive x4. Tender to light palpation RUQ, RLQ, Mid epigastric region and LUQ. MUSCULOSKELETAL: Extremities without clubbing, cyanosis, or edema. NEUROLOGICAL: Awake and alert. Oriented to place, person. No focal neuro deficit. Moves all extremities. Normal speech. A/P Problem List: (1) Sepsis ICD Code: A41.9 - Sepsis, unspecified organism (2) C. difficile colitis ICD Code: A04.72 - Enterocolitis due to Clostridium difficile, not specified as recurrent (3) AIDS (acquired immune deficiency syndrome) ICD Code: B20 - Human immunodeficiency virus [HIV] disease (4) Intractable abdominal pain ICD Code: R10.9 - Unspecified abdominal pain (5) Gastric mass ICD Code: K31.9 - Disease of stomach and duodenum, unspecified (6) Cirrhosis ICD Code: K74.60 - Unspecified cirrhosis of liver (7) Hypocalcemia ICD Code: E83.51 - Hypocalcemia (8) Lactic acidosis ICD Code: E87.2 - Acidosis Assessment and Plan Patient is a 52-year-old female who present with abdominal pain. Abdominal pain, epigastric area - Improved with morphine last. Asymptomatic. - CT scan of the abdomen showed cirrhosis of the liver with stigmata of portal hypertension. - May be secondary to multiple biopsies after EGD done on 06/22/2017. - s/p EGD by Dr. Lacy 06/22/17, found to have 1.5 x 1.5cm mass in cardia , s/p biopsies which showed mild chronic duodenitis with hemosiderin, chronic gastritis and tara, moderate chronic active gastritis. - Since patient has tara and esophageal and gastric area most likely needs to be on Diflucan. Pending recommendations from infectious disease. - Reconsulted GI since patient is having abdominal pain after procedure. Barium swallow done with results small sliding hiatal hernia. - Plan for EGD today C. Diff Colitis: - Previous admit 05/12-05/18/17 for c/o abdominal pain, found to have C Diff Colitis, d/c'd on Vanc Taper. - Worsening of diarrhea the past few days. Repeat C. difficile PCR positive. - Infectious disease consulted pending recommendations. AIDS: CD4 <20 on 03/29/17 - following w/ Dr. Marie as outpatient, was to follow up to resume HAART. Start Zithro 1200mg q7d, Bactrim DS M/W/F. - Infectious disease following. Recommends to resume home HIV meds. Cirrhosis: - CT Abd/Pelvis w/ cirrhosis and portal hypertension, LFTs normal. Propranolol, Lasix, Aldactone. Hypokalemia Hypocalcemia - Most likely secondary to GI losses. - Will supplement as needed. - Check Potassium/ Calcium trend Hypocalcemia: Chronic. - Place as needed Pruritus - Lac Hydrin - Benadryl when necessary DVT Prophylaxis: SCD/Teds. Discuss with patient, nursing, Dr. Mccarty Discharge Planning Plan to DC home when cleared by GI. May need home healthcare or SNF placement. Radha Richmond Jun 27, 2017 09:30
[2017-06-27 12:00] VITALS: BP 115/64; PULSE 74; RESP 18; TEMP 95.8; O2SAT 99
--- NOTE | 2017-06-27 13:23 | HHI.IDPN ---
Subjective Subjective Remarks pt co diarrhea no fever 13 BMs yday BC neg @ 3 days Antibiotics vanco azithro fluc Allergies: Coded Allergies: No Known Allergies (Verified Allergy, Unknown, 06/24/17) Objective . Vital Signs Date Time Temp Pulse Resp B/P (MAP) Pulse Ox O2 Delivery O2 Flow Rate FiO2 06/27/17 12:00 95.8 74 18 115/64 (81) 99 06/27/17 08:00 97.2 77 16 98/55 (69) 98 06/27/17 03:47 98.0 74 20 106/60 (75) 99 06/27/17 00:00 97.0 71 20 102/59 (73) 97 06/26/17 20:00 98.4 74 20 113/59 (77) 96 06/26/17 16:00 97.4 82 18 107/64 (78) 98 . Laboratory Tests Test 06/26/17 10:38 White Blood Count 4.3 TH/MM3 Red Blood Count 3.03 MIL/MM3 Hemoglobin 9.5 GM/DL Hematocrit 28.7 % Mean Corpuscular Volume 94.6 FL Mean Corpuscular Hemoglobin 31.3 PG Mean Corpuscular Hemoglobin Concent 33.1 % Red Cell Distribution Width 15.6 % Platelet Count 153 TH/MM3 Mean Platelet Volume 9.9 FL Laboratory Tests Test 06/26/17 10:38 06/27/17 05:12 Blood Urea Nitrogen 10 MG/DL 9 MG/DL Creatinine 0.81 MG/DL 0.77 MG/DL Random Glucose 83 MG/DL 71 MG/DL Calcium Level 7.8 MG/DL 7.4 MG/DL Sodium Level 138 MEQ/L 141 MEQ/L Potassium Level 3.6 MEQ/L 3.6 MEQ/L Chloride Level 111 MEQ/L 111 MEQ/L Carbon Dioxide Level 21.4 MEQ/L 23.5 MEQ/L Anion Gap 6 MEQ/L 7 MEQ/L Estimat Glomerular Filtration Rate 89 ML/MIN 95 ML/MIN Total Protein 8.0 GM/DL Protein Corrected Calcium 7.0 MG/DL Microbiology Date/Time Source Procedure Growth Status 06/24/17 16:40 Blood Peripheral Aerobic Blood Culture - Preliminary NO GROWTH IN 3 DAYS Resulted 06/24/17 16:40 Blood Peripheral Anaerobic Blood Culture - Preliminary NO GROWTH IN 3 DAYS Resulted 06/24/17 16:30 Blood Peripheral Aerobic Blood Culture - Preliminary NO GROWTH IN 3 DAYS Resulted 06/24/17 16:30 Blood Peripheral Anaerobic Blood Culture - Preliminary NO GROWTH IN 3 DAYS Resulted Imaging Last Impressions Barium Swallow X-Ray 06/26/17 0000 Signed Impressions: Service Date/Time: Monday, June 26, 2017 09:20 - CONCLUSION: 1. Small sliding hiatal hernia. Grant Villasenor MD Abdomen/Pelvis CT 06/24/17 1444 Signed Impressions: Service Date/Time: Saturday, June 24, 2017 17:41 - CONCLUSION: Cirrhosis and stigmata of portal hypertension. Improved appearance of the bowel Prominent inguinal lymphadenopathy Nelson Garg MD Chest X-Ray 06/24/17 0000 Signed Impressions: Service Date/Time: Saturday, June 24, 2017 14:56 - CONCLUSION: No acute disease. Yosef Puente MD FACR Physical Exam CONSTITUTIONAL/GENERAL: This is a thin female patient, in no apparent distress , chronicaly ill appearing TUBES/LINES/DRAINS: SKIN: No jaundice, rashes, or lesions. Skin temperature appropriate. Not diaphoretic. EYES: Pupils equal and round and reactive. Extraocular motions intact. No scleral icterus. No injection or drainage. Fundi not examined. ENT: Hearing grossly normal. Nose without bleeding or purulent drainage. oral mucosae without visible erythema, exudates, masses, or lesions. Edentulos No oral thrush CARDIOVASCULAR: Regular rate and rhythm without murmurs, gallops, or rubs. No JVD. Peripheral pulses symmetric. RESPIRATORY/CHEST: Symmetric, unlabored respirations. Clear to auscultation. Breath sounds equal bilaterally. No wheezes, rales, or rhonchi. GASTROINTESTINAL: Abdomen soft tender in LLQ, moderately distended. No hepato-splenomegaly, or palpable masses. No guarding. Bowel sounds present. MUSCULOSKELETAL: Extremities without clubbing, cyanosis, or edema. No joint tenderness or effusion noted. No calf tenderness. No mottling or clubbing. NEUROLOGICAL: Awake and alert. Motor and sensory grossly within normal limits. Follows commands. Clear speech . Moves all extremities. PSYCHIATRIC: No obvious anxiety/depression. no apparent hallucinations or other psychotic thought process. Assessment & Plan Remarks C.diff, hypervirulent strain with > 2nd reciurrentce MAC in stool previously, on Azithromycin HIV/end stage AIDS, ? compliance cotn vancomycin tx for C.diff x 14 days,then taper dc flagyl she will need to be converted to vanco taper after 2 weeks of vanco complated since its > 3 rd episode fu [employer] stool clx restart home HIV tx ( non formularly): pt wwas instructed to bring them from home cont profilaxis med (bactrim, azoithro) avoid systemic abx Anaid Masterson MD Jun 27, 2017 13:23
[2017-06-27 16:00] VITALS: BP 115/63; PULSE 74; RESP 18; TEMP 97.1; O2SAT 99
[2017-06-27] MEDS ORDERED: CALCIUM GLUCONATE INJ 2 GM in DEXTROSE 5% IN WATER 100ML INJ 100 ML IV ONE ×2 (16:00)
--- NOTE | 2017-06-27 17:13 | HHI.GIFU ---
GI Follow-up Note Consult Follow-up Subjective: Patient laying in bed comfortably, no new complaints except dysphagia, hungry Objective: PHYSICAL EXAMINATION: Vitals signs stable No fever HEENT: Pupils round and reactive to light; normocephalic; atraumatic; no jaundice. Throat is clear. NECK: Neck is supple, no JVD, no lymphadenopathy. CHEST: Chest is clear to auscultation and percussion. CARDIAC: Regular rate and rhythm with no murmur gallop or rubs. ABDOMEN: Soft, nondistended, nontender; no hepatosplenomegaly; bowel sounds are present in all four quadrants. EXTREMITIES: No clubbing, cyanosis, or edema. SKIN: Normal; no rash; no jaundice. [employer] F[employer]: No focal deficits; alert and oriented times three. Available Data (labs, X- Rays, Procedues) : Last Impressions Barium Swallow X-Ray 06/26/17 0000 Signed Impressions: Service Date/Time: Monday, June 26, 2017 09:20 - CONCLUSION: 1. Small sliding hiatal hernia. Grant Villasenor MD Abdomen/Pelvis CT 06/24/17 1444 Signed Impressions: Service Date/Time: Saturday, June 24, 2017 17:41 - CONCLUSION: Cirrhosis and stigmata of portal hypertension. Improved appearance of the bowel Prominent inguinal lymphadenopathy Nelson Garg MD Chest X-Ray 06/24/17 0000 Signed Impressions: Service Date/Time: Saturday, June 24, 2017 14:56 - CONCLUSION: No acute disease. Yosef Puente MD FACR Laboratory Tests Test 06/26/17 10:38 06/27/17 05:12 White Blood Count 4.3 TH/MM3 Red Blood Count 3.03 MIL/MM3 Hemoglobin 9.5 GM/DL Hematocrit 28.7 % Mean Corpuscular Volume 94.6 FL Mean Corpuscular Hemoglobin 31.3 PG Mean Corpuscular Hemoglobin Concent 33.1 % Red Cell Distribution Width 15.6 % Platelet Count 153 TH/MM3 Mean Platelet Volume 9.9 FL Blood Urea Nitrogen 10 MG/DL 9 MG/DL Creatinine 0.81 MG/DL 0.77 MG/DL Random Glucose 83 MG/DL 71 MG/DL Calcium Level 7.8 MG/DL 7.4 MG/DL Sodium Level 138 MEQ/L 141 MEQ/L Potassium Level 3.6 MEQ/L 3.6 MEQ/L Chloride Level 111 MEQ/L 111 MEQ/L Carbon Dioxide Level 21.4 MEQ/L 23.5 MEQ/L Anion Gap 6 MEQ/L 7 MEQ/L Estimat Glomerular Filtration Rate 89 ML/MIN 95 ML/MIN Total Protein 8.0 GM/DL Protein Corrected Calcium 7.0 MG/DL Allergies Coded Allergies Type Severity Reaction Last Updated Verified No Known Allergies Allergy Unknown 06/24/17 Yes Active Scripts Medications Dose Route/Sig Max Daily Dose Days Date Category Aspirin Low Strength (Aspirin) 81 Mg Chew 81 Mg CHEW DAILY 04/02/17 Rx ASSESSMENT/PLAN: Seen and examined, EGD/EUS couldnot be done today. Scheduled with Dr. Lacy at 7am. NPO after midnight. Discussed with nurse and pt. It was a pleasure seeing Epifanio Helm. Thank you for this consult. Entered by: Liberty Arboleda MD Jun 27, 2017 17:13
[2017-06-27 20:00] VITALS: BP 107/57; PULSE 74; PULSE 75; RESP 18; TEMP 97.8; O2SAT 99
[2017-06-27] MEDS: diphenhydrAMINE HCL 25 MG CAP PO PRN (21:45)
[2017-06-28] VITALS (8 sets, daily range): BP systolic 98–144; BP diastolic 59–84; PULSE 67–90; RESP 16–19; TEMP 95.2–99.8; O2SAT 94–100
[2017-06-28] MEDS ORDERED: LACTATED RINGER'S 1000 ML IV PRN (01:30)
[2017-06-28] MEDS ORDERED: POVIDONE IODINE 5% (ANTISEPSIS KIT) 4 APPLICATIONS EACH NARE PRN (01:30)
[2017-06-28] MEDS ORDERED: CHLORHEXIDINE GLUCONATE 2 % 1 PACK (2 CLOTHS) TOPICAL PRN (01:30)
[2017-06-28] MEDS ORDERED: SODIUM CHLORID 0.9% 500 ML IV PRN (01:30)
[2017-06-28] MEDS: SODIUM CHLORIDE 0.9% FLUSH 10 ML FLUSH IV FLUSH PRN ×2 (01:56→06:23)
[2017-06-28] MEDS: metroNIDAZOLE 250 MG INJ 50 ML IV SCH ×3 (01:56→18:20)
[2017-06-28] MEDS: PANTOPRAZOLE SODIUM 40 MG VIAL IV PUSH SCH ×2 (06:23→18:19)
--- NOTE | 2017-06-28 07:48 | PD.PROCEDR ---
GI Procedure REFERRING PHYSICIAN Dr. Mccarty PROCEDURE PERFORMED Endoscopic ultrasound INDICATION FOR PROCEDURE Distal esophageal mass PROCEDURE: The procedure, risks and benefits were discussed with Ms. Helm and informed consent was obtained. Anesthesia sedated her with Diprivan. She was placed in the left lateral decubitus position. Endoscopic ultrasound: The Pentax videoscope was introduced through the oropharynx and advanced to the stomach. FINDINGS: The esophageal is at the GE junction and mostly in the cardia it is a homogeneous isoechoic mass measuring 0.5 x 1.5 cm arising from the third layer possible early leiomyoma or a GIST More notable was what looks like a subcarinal lymphadenopathy but it was somewhat vascular on endoscopic ultrasound and as such was not biopsied at this point the tube was homogeneous and mostly isoechoic of unclear significance The pancreas appeared to be unremarkable at this point with a normal pancreatic duct ESTIMATED BLOOD LOSS: None SPECIMENS REMOVED: None COMPLICATIONS: None IMPRESSION: Benign-appearing distal esophageal and cardia submucosal mass Subcarinal lymphadenopathy of unclear significance PLAN: We'll obtain CT of the chest Considering repeat EUS with fine-needle aspiration based on what the CT shows Continue with current supportive care Monitor labs Juwan Lacy MD Jun 28, 2017 07:48
[2017-06-28] MEDS: PROPRANOLOL HCL 10 MG TAB PO SCH ×2 (09:00→21:00)
[2017-06-28] MEDS: SODIUM CHLORIDE 0.9% FLUSH 10 ML FLUSH IV FLUSH SCH ×2 (09:00→22:29)
[2017-06-28] MEDS: DOCUSATE SODIUM 50 MG/SENNA 8.6 MG TAB PO SCH ×2 (09:29→21:00)
[2017-06-28] MEDS: NYSTATIN SUSP 500,000 U/5 ML CUP SWISH-SWAL SCH ×4 (09:29→22:27)
[2017-06-28] MEDS: FUROSEMIDE 40 MG TAB PO SCH (09:30)
[2017-06-28] MEDS: LACTOBACILLUS ACIDOPHILUS TAB PO SCH ×2 (09:30→22:26)
[2017-06-28] MEDS: POTASSIUM CHLORIDE 20 MEQ CONTROLLED RELEASE TAB PO SCH (09:30)
[2017-06-28] MEDS: FLUCONAZOLE 100 MG TAB PO SCH (09:30)
[2017-06-28] MEDS: VANCOMYCIN 500 MG VIAL (FOR ORAL USE ONLY) PO SCH ×4 (09:31→22:27)
[2017-06-28] MEDS: SPIRONOLACTONE 50 MG TAB PO SCH (09:32)
--- NOTE | 2017-06-28 09:34 | HHI.PR ---
Subjective Remarks Follow-up visit C. difficile diarrhea, HIV/ AIDS, abdominal mass, cirrhosis. Patient seen and examined today sitting up in bed. Patient states she is hungry but otherwise feeling okay. States that she has loose stools 1 today. States hasn't had it since previous days. Patient just had EGD today. Denies pain and discomfort. Denies SOB/ dyspnea. Denies chest pain, palpitations, headaches, dizziness. Denies fevers, chills, n/v/d. Denies dysuria. Objective Vitals Vital Signs Date Time Temp Pulse Resp B/P (MAP) Pulse Ox O2 Delivery O2 Flow Rate FiO2 06/28/17 08:00 95.2 82 17 144/75 (98) 97 06/28/17 07:54 85 16 105/57 (73) 100 06/28/17 07:45 80 16 107/57 (74) 100 06/28/17 04:00 98.9 78 18 111/60 (77) 99 06/28/17 04:00 74 06/28/17 00:00 99.0 75 18 104/59 (74) 98 06/28/17 00:00 75 06/27/17 20:00 75 06/27/17 20:00 97.8 74 18 107/57 (74) 99 06/27/17 16:00 97.1 74 18 115/63 (80) 99 06/27/17 12:00 95.8 74 18 115/64 (81) 99 I/O 06/27/17 06/27/17 06/27/17 06/28/17 06/28/17 06/28/17 07:00 15:00 23:00 07:00 15:00 23:00 Intake Total 290 ml 50 ml 150 ml 100 ml Output Total 1 ml Balance 289 ml 50 ml 150 ml 100 ml Intake Oral 240 ml 0 ml IV Total 50 ml 50 ml 150 ml Other 100 ml Stool Total 1 ml # Voids 4 3 Result Diagram: 06/26/17 1038 06/27/17 0512 Imaging Last Impressions Chest CT 06/28/17 0000 Signed Impressions: Service Date/Time: Wednesday, June 28, 2017 08:55 - CONCLUSION: 1. 2 new right lung pulmonary nodules. At this point these are too small for percutaneous biopsy. 2. Left upper lobe consolidating airspace disease 3. Enlarging right hilar lymphadenopathy 4. Stable subcarinal and bilateral axillary lymphadenopathy. Yaya Guzman MD Barium Swallow X-Ray 06/26/17 0000 Signed Impressions: Service Date/Time: Monday, June 26, 2017 09:20 - CONCLUSION: 1. Small sliding hiatal hernia. Grant Villasenor MD Abdomen/Pelvis CT 06/24/17 1444 Signed Impressions: Service Date/Time: Saturday, June 24, 2017 17:41 - CONCLUSION: Cirrhosis and stigmata of portal hypertension. Improved appearance of the bowel Prominent inguinal lymphadenopathy Nelson Garg MD Chest X-Ray 06/24/17 0000 Signed Impressions: Service Date/Time: Saturday, June 24, 2017 14:56 - CONCLUSION: No acute disease. Yosef Puente MD FACR Objective Remarks GENERAL: This is a thin appearing, well-developed patient, in no apparent distress. SKIN: Warm and dry. Multiple scab lesions bilateral upper extremity, bilateral lower extremities. Multiple scratch soto right and left elbow as well as right lower extremity. HEENT: Normocephalic. Pupils equal round and reactive. Nose without bleeding. Airway patent. NECK: Trachea midline. No JVD. Supple. CARDIOVASCULAR: Regular rate and rhythm without murmurs, gallops, or rubs. RESPIRATORY: Diminished bases. No wheezes, rales, or rhonchi. GASTROINTESTINAL: Abdomen soft, nondistended. Bowel Sounds normoactive x4. Tender to light palpation RUQ, RLQ, Mid epigastric region and LUQ. MUSCULOSKELETAL: Extremities without clubbing, cyanosis, or edema. NEUROLOGICAL: Awake and alert. Oriented to place, person. No focal neuro deficit. Moves all extremities. Normal speech. Procedures Status post EGD 06/28/17 A/P Problem List: (1) Sepsis ICD Code: A41.9 - Sepsis, unspecified organism (2) C. difficile colitis ICD Code: A04.72 - Enterocolitis due to Clostridium difficile, not specified as recurrent (3) AIDS (acquired immune deficiency syndrome) ICD Code: B20 - Human immunodeficiency virus [HIV] disease (4) Intractable abdominal pain ICD Code: R10.9 - Unspecified abdominal pain (5) Gastric mass ICD Code: K31.9 - Disease of stomach and duodenum, unspecified (6) Cirrhosis ICD Code: K74.60 - Unspecified cirrhosis of liver (7) Hypocalcemia ICD Code: E83.51 - Hypocalcemia (8) Lactic acidosis ICD Code: E87.2 - Acidosis Assessment and Plan Patient is a 52-year-old female who present with abdominal pain. Abdominal pain, epigastric area - Improved with morphine last. Asymptomatic. - CT scan of the abdomen showed cirrhosis of the liver with stigmata of portal hypertension. - May be secondary to multiple biopsies after EGD done on 06/22/2017. - s/p EGD by Dr. Lacy 06/22/17, found to have 1.5 x 1.5cm mass in cardia , s/p biopsies which showed mild chronic duodenitis with hemosiderin, chronic gastritis and tara, moderate chronic active gastritis. - Since patient has tara and esophageal and gastric area most likely needs to be on Diflucan. Pending recommendations from infectious disease. - Reconsulted GI since patient is having abdominal pain after procedure. Barium swallow done with results small sliding hiatal hernia. -EGD was done again today by Dr. Lacy with findings of benign appearing distal esophageal and cardia submucosal mass, subcarinal lymphadenopathy of unclear significance. Recommends to CT of the chest and to consider repeat EUS with fine-needle aspiration based on what the CT shows. - Chest CT showed 1. 2 new right lung pulmonary nodules. At this point these are too small for percutaneous biopsy. 2. Left upper lobe consolidating airspace disease. 3. Enlarging right hilar lymphadenopathy. 4. Stable subcarinal and bilateral axillary lymphadenopathy. - GI cleared patient for diet if she tolerates diet, they can clear her. Plan to DC patient home tomorrow with [facility] follow up with GI in 2-4 weeks. C. Diff Colitis: - Previous admit 05/12-05/18/17 for c/o abdominal pain, found to have C Diff Colitis, d/c'd on Vanc Taper. - Worsening of diarrhea the past few days. Repeat C. difficile PCR positive. - Infectious disease consulted recommends AFB of the stool. Restart HIV medication. Continue vancomycin for C. difficile 14 days then taper, then discontinue Flagyl - will clarify if Flagyl needs to be DC'd by now. AIDS: CD4 <20 on 03/29/17 - following w/ Dr. Marie as outpatient, was to follow up to resume HAART. Start Zithro 1200mg q7d, Bactrim DS M/W/F. - Infectious disease following. Recommends to resume home HIV meds. has brought inpatient meds. Nurse notified sent to pharmacy to be restarted. Cirrhosis: - CT Abd/Pelvis w/ cirrhosis and portal hypertension, LFTs normal. Propranolol, Lasix, Aldactone. Hypokalemia Hypocalcemia - Most likely secondary to GI losses. - Will supplement as needed. - Check Potassium/ Calcium trend Hypocalcemia: Chronic. - Place as needed Pruritus - Lac Hydrin - Benadryl when necessary DVT Prophylaxis: SCD/Teds. Discuss with patient, nursing, Dr. Mccarty Discharge Planning Plan to DC home with home health care when cleared by GI and ID. Case management following. Radha Richmond Jun 28, 2017 09:34
[2017-06-28] MEDS: LACTIC ACID (AMMONIUM LACTATE) 12% LOTION 225 GM BTL TOPICAL SCH ×2 (09:35→22:28)
--- NOTE | 2017-06-28 10:10 | RADRPT ---
EXAM DATE/TIME: 06/28/2017 08:55 [facility] COMPARISON: CT ABDOMEN & PELVIS W CONTRAST, June 24, 2017, 17:41. CT PULMONARY ANGIOGRAM, February 06, 2017, 10: 07. INDICATIONS : Subcarinal lymphadenopathy. IV CONTRAST: 66 cc Omnipaque 350 (iohexol) IV RADIATION DOSE: 3.39 CTDIvol (mGy) MEDICAL HISTORY : Hypertension. Cirrhosis. SURGICAL HISTORY : None. ENCOUNTER: Initial ACUITY: 1 day PAIN SCALE: 0/10 LOCATION: chest TECHNIQUE: Volumetric scanning of the chest was performed. Using automated exposure control and adjustment of t he mA and/or kV according to patient size, radiation dose was kept as low as reasonably achievable to obtain optimal diagnostic quality images. DICOM format image data is available electronically for review and comparison. Follow-up recommendations for detected pulmonary nodules are based at a minimum on nodule size and pa tient risk factors according to Fleischner Society Guidelines. FINDINGS: LUNGS: Consolidating airspace disease identified in the left upper lobe adjacent to the hilum.. At least 2 new pulmonary nodules are identified the right lung. One is located in the right uppe r lobe measuring 5 mm and second paraspinal he in the left lower lobe measuring 4 mm. Mild atelectasi s is identified at both lung bases. PLEURA: There is no pleural thickening or pleural effusion. MEDIASTINUM: Increasing right hilar lymphadenopathy is identified when compared to prior CTA. Subcarinal gabriel enl argement appears stable. Significant coronary artery calcification is again noted. AXILLAE: Enlarged lymph nodes are again identified in the axilla. The largest is located on the left and measu res 1.3 x 3.0 cm in size. SKELETAL: Within normal limits for patient age. MISCELLANEOUS: The visualized upper abdominal organs demonstrate no acute abnormality. CONCLUSION: 1. 2 new right lung pulmonary nodules. At this point these are too small for percutaneous biopsy. 2. Left upper lobe consolidating airspace disease 3. Enlarging right hilar lymphadenopathy 4. Stable subcarinal and bilateral axillary lymphadenopathy. Yaya Guzman MD on June 28, 2017 at 9:53 Board Certified Radiologist. This report was verified electronically.
--- NOTE | 2017-06-28 11:57 | HHI.FF ---
Face to Face Verification Diagnosis: (1) Clostridium difficile diarrhea (2) HIV (human immunodeficiency virus infection) (3) Severe protein-calorie malnutrition (4) Weakness Physical Therapy Order: Evaluate and Treat, Improve ambulation, Strength and gait training Home Health Nursing Order: Medical education Signs/symptoms of disease process Medication education-adverse effect Nursing assessment with vital signs [place] Order: To Evaluate: Support services I have seen patient Epifanio Helm on 06/28/17. My clinical findings support the need for the requested home health care services because: Ltd mobility - disease progression Deconditioned w/ increased weakness Limited ability to care for self High risk of falls Infection w/ risk of complications I certify that my clinical findings support that this patient is homebound because: Unsteady gait/balance Unsafe to leave home unassisted Unable to use public transportation Radha Richmond Jun 28, 2017 11:57
[2017-06-28] MEDS ORDERED: PHENYLEPH/NS 1000 MCG/10 ML SYR IV ONE (12:00)
[2017-06-28] MEDS ORDERED: LIDOCAINE HCL 1% PF 5 ML SYRINGE OTHER ONE (12:00)
[2017-06-28] MEDS ORDERED: PROPOFOL 200 MG/20 ML AMP IV ONE (12:00)
--- NOTE | 2017-06-28 13:30 | HHI.IDPN ---
Subjective Subjective Remarks improved diarrhea no fever 4 BMs yday co ad pain her brought her HIV medx BC neg @ 3 days sp EGD today, finding of subbcarinal adenopathy prompted chest CT and she has new infiultrate in H[place] that was not present on CTA from 02/07 Antibiotics vanco azithro fluc HIV Dalutegravir/Abacavir/ Epivir Darunavi/ cobistat Past Medical History end stage AIDS Allergies: Coded Allergies: No Known Allergies (Verified Allergy, Unknown, 06/24/17) Objective . Vital Signs Date Time Temp Pulse Resp B/P (MAP) Pulse Ox O2 Delivery O2 Flow Rate FiO2 06/28/17 12:00 95.4 67 18 117/65 (82) 94 06/28/17 08:00 95.2 82 17 144/75 (98) 97 06/28/17 07:54 85 16 105/57 (73) 100 06/28/17 07:45 80 16 107/57 (74) 100 06/28/17 04:00 98.9 78 18 111/60 (77) 99 06/28/17 04:00 74 06/28/17 00:00 99.0 75 18 104/59 (74) 98 06/28/17 00:00 75 06/27/17 20:00 75 06/27/17 20:00 97.8 74 18 107/57 (74) 99 06/27/17 16:00 97.1 74 18 115/63 (80) 99 06/28/17 06/28/17 06/29/17 14:59 22:59 06:59 Intake Total 100 ml Balance 100 ml Other 100 ml . Laboratory Tests Test 06/27/17 05:12 Blood Urea Nitrogen 9 MG/DL Creatinine 0.77 MG/DL Random Glucose 71 MG/DL Total Protein 8.0 GM/DL Calcium Level 7.4 MG/DL Sodium Level 141 MEQ/L Potassium Level 3.6 MEQ/L Chloride Level 111 MEQ/L Carbon Dioxide Level 23.5 MEQ/L Anion Gap 7 MEQ/L Estimat Glomerular Filtration Rate 95 ML/MIN Protein Corrected Calcium 7.0 MG/DL Imaging Last Impressions Chest CT 06/28/17 0000 Signed Impressions: Service Date/Time: Wednesday, June 28, 2017 08:55 - CONCLUSION: 1. 2 new right lung pulmonary nodules. At this point these are too small for percutaneous biopsy. 2. Left upper lobe consolidating airspace disease 3. Enlarging right hilar lymphadenopathy 4. Stable subcarinal and bilateral axillary lymphadenopathy. Yaya Guzman MD Barium Swallow X-Ray 06/26/17 0000 Signed Impressions: Service Date/Time: Monday, June 26, 2017 09:20 - CONCLUSION: 1. Small sliding hiatal hernia. Grant Villasenor MD Abdomen/Pelvis CT 06/24/17 1444 Signed Impressions: Service Date/Time: Saturday, June 24, 2017 17:41 - CONCLUSION: Cirrhosis and stigmata of portal hypertension. Improved appearance of the bowel Prominent inguinal lymphadenopathy Nelson Garg MD Chest X-Ray 06/24/17 0000 Signed Impressions: Service Date/Time: Saturday, June 24, 2017 14:56 - CONCLUSION: No acute disease. Yosef Puente MD FACR Physical Exam CONSTITUTIONAL/GENERAL: This is a thin female patient, in no apparent distress , chronicaly ill appearing TUBES/LINES/DRAINS: SKIN: No jaundice, rashes, or lesions. Skin temperature appropriate. Not diaphoretic. EYES: Pupils equal and round and reactive. Extraocular motions intact. No scleral icterus. No injection or drainage. Fundi not examined. ENT: Hearing grossly normal. Nose without bleeding or purulent drainage. oral mucosae without visible erythema, exudates, masses, or lesions. Edentulos No oral thrush CARDIOVASCULAR: Regular rate and rhythm without murmurs, gallops, or rubs. No JVD. Peripheral pulses symmetric. RESPIRATORY/CHEST: Symmetric, unlabored respirations. Clear to auscultation. Breath sounds equal bilaterally. No wheezes, rales, or rhonchi. GASTROINTESTINAL: Abdomen soft tender in RLQ, moderately distended. No hepato-splenomegaly, or palpable masses. No guarding. Bowel sounds present. MUSCULOSKELETAL: Extremities without clubbing, cyanosis, or edema. No joint tenderness or effusion noted. No calf tenderness. No mottling or clubbing. NEUROLOGICAL: Awake and alert. Motor and sensory grossly within normal limits. Follows commands. Clear speech . Moves all extremities. PSYCHIATRIC: No obvious anxiety/depression. no apparent hallucinations or other psychotic thought process. Assessment & Plan Remarks C.diff, hypervirulent strain with > 2nd reciurrentce MAC in stool previously, on Azithromycin HIV/end stage AIDS, ? compliance Dysphagia - sp EGD New HONG infiltrate and hilar lymphadenopathy - r/o TB and MAC Quntiferron in 05/10 indeterminate / advance AIDS. NO use to repeat it cotn vancomycin tx for C.diff x 14 days,then taper she will need to be converted to vanco taper after 2 weeks of vanco complated since its > 3 rd episode fu AFB stool clx, probe sputum AFB, restart home HIV tx ( non formularly) cont profilaxis med (bactrim, azoithro) avoid systemic abx Anaid Masterson MD Jun 28, 2017 13:30
[2017-06-28] MEDS ORDERED: Nystatin Liq SWISH-SWAL (13:54)
[2017-06-28] MEDS ORDERED: FURO40TA PO (13:54)
[2017-06-28] MEDS ORDERED: PROP10TA6 PO (13:54)
[2017-06-28] MEDS ORDERED: ALDA50TA2 PO (13:54)
[2017-06-28] MEDS ORDERED: LACT PO (13:54)
[2017-06-28] MEDS ORDERED: Patient Own Medication PO (14:03)
[2017-06-28] MEDS: diphenhydrAMINE HCL 25 MG CAP PO PRN (22:27)
[2017-06-29] MEDS: metroNIDAZOLE 250 MG INJ 50 ML IV SCH ×3 (02:32→16:37)
[2017-06-29 05:08] VITALS: BP 93/56; PULSE 78; RESP 17; TEMP 96.6; O2SAT 97
[2017-06-29] MEDS: PANTOPRAZOLE SODIUM 40 MG VIAL IV PUSH SCH ×2 (06:07→16:36)
[2017-06-29 08:00] VITALS: BP 111/63; PULSE 71; RESP 20; TEMP 97.6; O2SAT 100
[2017-06-29] MEDS: DOCUSATE SODIUM 50 MG/SENNA 8.6 MG TAB PO SCH ×2 (08:52→19:54)
[2017-06-29] MEDS: NYSTATIN SUSP 500,000 U/5 ML CUP SWISH-SWAL SCH ×4 (08:53→19:51)
[2017-06-29] MEDS: PROPRANOLOL HCL 10 MG TAB PO SCH ×2 (08:53→19:50)
[2017-06-29] MEDS: FLUCONAZOLE 100 MG TAB PO SCH (08:53)
[2017-06-29] MEDS: SULFAMETHOXAZOLE-TRIMETHOPRIM DS 800-160 MG TAB PO SCH (08:53)
[2017-06-29] MEDS: TRIUMEQ PO SCH (08:54)
[2017-06-29] MEDS: SODIUM CHLORIDE 0.9% FLUSH 10 ML FLUSH IV FLUSH SCH ×2 (08:54→19:54)
[2017-06-29] MEDS: SPIRONOLACTONE 50 MG TAB PO SCH (08:54)
[2017-06-29] MEDS: PREZCOBIX PO SCH (08:54)
[2017-06-29] MEDS: LACTOBACILLUS ACIDOPHILUS TAB PO SCH ×2 (08:55→19:50)
[2017-06-29] MEDS: POTASSIUM CHLORIDE 20 MEQ CONTROLLED RELEASE TAB PO SCH (08:55)
[2017-06-29] MEDS: FUROSEMIDE 40 MG TAB PO SCH (08:55)
[2017-06-29] MEDS: VANCOMYCIN 500 MG VIAL (FOR ORAL USE ONLY) PO SCH ×4 (08:56→19:51)
[2017-06-29] MEDS: LACTIC ACID (AMMONIUM LACTATE) 12% LOTION 225 GM BTL TOPICAL SCH ×2 (08:56→19:54)
[2017-06-29 12:00] VITALS: BP 105/62; PULSE 72; RESP 20; TEMP 96.9; O2SAT 98
[2017-06-29 12:03] LABS: POTASSIUM 3.8 MEQ/L (3.5-5.1)
--- NOTE | 2017-06-29 14:28 | HHI.PR ---
Subjective Remarks Follow-up visit C. difficile diarrhea, HIV/ AIDS, abdominal mass, cirrhosis. Patient seen and examined today lying in bed. Patient states she is doing well. Asking when she is to be released to go home. Reports small amount of diarrhea but not frequent. Denies pain and discomfort. Denies SOB/ dyspnea. Denies chest pain, palpitations, headaches, dizziness. Denies fevers, chills, nausea, vomiting. Denies dysuria. As per nursing, no acute issues, diarrhea 2 Objective Vitals Vital Signs Date Time Temp Pulse Resp B/P (MAP) Pulse Ox O2 Delivery O2 Flow Rate FiO2 06/29/17 12:00 96.9 72 20 105/62 (76) 98 06/29/17 08:00 97.6 71 20 111/63 (79) 100 06/29/17 05:08 96.6 78 17 93/56 (68) 97 06/28/17 23:59 98.1 73 16 105/61 (76) 96 06/28/17 20:11 99.8 89 16 98/62 (74) 98 06/28/17 20:00 79 06/28/17 16:00 98.7 81 19 109/61 (77) 100 I/O 06/28/17 06/28/17 06/28/17 06/29/17 06/29/17 06/29/17 07:00 15:00 23:00 07:00 15:00 23:00 Intake Total 100 ml 345 ml 530 ml 120 ml Output Total 200 ml Balance 100 ml 145 ml 530 ml 120 ml Intake Oral 345 ml 480 ml 120 ml IV Total 50 ml Other 100 ml Output Urine Total 200 ml # Voids 8 1 # Bowel Movements 0 Result Diagram: 06/26/17 1038 06/29/17 0925 Imaging Last Impressions Chest CT 06/28/17 0000 Signed Impressions: Service Date/Time: Wednesday, June 28, 2017 08:55 - CONCLUSION: 1. 2 new right lung pulmonary nodules. At this point these are too small for percutaneous biopsy. 2. Left upper lobe consolidating airspace disease 3. Enlarging right hilar lymphadenopathy 4. Stable subcarinal and bilateral axillary lymphadenopathy. Yaya Guzman MD Barium Swallow X-Ray 06/26/17 0000 Signed Impressions: Service Date/Time: Monday, June 26, 2017 09:20 - CONCLUSION: 1. Small sliding hiatal hernia. Grant Villasenor MD Abdomen/Pelvis CT 06/24/17 1444 Signed Impressions: Service Date/Time: Saturday, June 24, 2017 17:41 - CONCLUSION: Cirrhosis and stigmata of portal hypertension. Improved appearance of the bowel Prominent inguinal lymphadenopathy Nelson Garg MD Chest X-Ray 06/24/17 0000 Signed Impressions: Service Date/Time: Saturday, June 24, 2017 14:56 - CONCLUSION: No acute disease. Yosef Puente MD FACR Objective Remarks GENERAL: This is a thin appearing, well-developed patient, in no apparent distress. SKIN: Warm and dry. Multiple scab lesions bilateral upper extremity, bilateral lower extremities. Multiple scratch soto right and left elbow as well as right lower extremity. HEENT: Normocephalic. Pupils equal round and reactive. Nose without bleeding. Airway patent. NECK: Trachea midline. No JVD. Supple. CARDIOVASCULAR: Regular rate and rhythm without murmurs, gallops, or rubs. RESPIRATORY: Diminished bases. No wheezes, rales, or rhonchi. GASTROINTESTINAL: Abdomen soft, nondistended. Bowel Sounds normoactive x4. Tender to light palpation RUQ, RLQ, Mid epigastric region and LUQ. MUSCULOSKELETAL: Extremities without clubbing, cyanosis, or edema. NEUROLOGICAL: Awake and alert. Oriented to place, person. No focal neuro deficit. Moves all extremities. Normal speech. Procedures Status post EGD 06/28/17 A/P Problem List: (1) Sepsis ICD Code: A41.9 - Sepsis, unspecified organism (2) C. difficile colitis ICD Code: A04.72 - Enterocolitis due to Clostridium difficile, not specified as recurrent (3) AIDS (acquired immune deficiency syndrome) ICD Code: B20 - Human immunodeficiency virus [HIV] disease (4) Intractable abdominal pain ICD Code: R10.9 - Unspecified abdominal pain (5) Gastric mass ICD Code: K31.9 - Disease of stomach and duodenum, unspecified (6) Cirrhosis ICD Code: K74.60 - Unspecified cirrhosis of liver (7) Hypocalcemia ICD Code: E83.51 - Hypocalcemia (8) Lactic acidosis ICD Code: E87.2 - Acidosis Assessment and Plan Patient is a 52-year-old female who present with abdominal pain. Abdominal pain, epigastric area - Improved with morphine last. Asymptomatic. - CT scan of the abdomen showed cirrhosis of the liver with stigmata of portal hypertension. - May be secondary to multiple biopsies after EGD done on 06/22/2017. - s/p EGD by Dr. Lacy 06/22/17, found to have 1.5 x 1.5cm mass in cardia , s/p biopsies which showed mild chronic duodenitis with hemosiderin, chronic gastritis and tara, moderate chronic active gastritis. - Since patient has tara and esophageal and gastric area most likely needs to be on Diflucan. Pending recommendations from infectious disease. - Reconsulted GI since patient is having abdominal pain after procedure. Barium swallow done with results small sliding hiatal hernia. -EGD was done again today by Dr. Lacy with findings of benign appearing distal esophageal and cardia submucosal mass, subcarinal lymphadenopathy of unclear significance. Recommends to CT of the chest and to consider repeat EUS with fine-needle aspiration based on what the CT shows. - Chest CT showed 1. 2 new right lung pulmonary nodules. At this point these are too small for percutaneous biopsy. 2. Left upper lobe consolidating airspace disease. 3. Enlarging right hilar lymphadenopathy. 4. Stable subcarinal and bilateral axillary lymphadenopathy. - GI cleared patient for diet if she tolerates diet, they can clear her. Follow up with GI in 2-4 weeks. C. Diff Colitis: - Previous admit 05/12-05/18/17 for c/o abdominal pain, found to have C Diff Colitis, d/c'd on Vanc Taper. - Worsening of diarrhea the past few days. Repeat C. difficile PCR positive. - Infectious disease consulted recommends AFB of the stool. Restart HIV medication. Continue vancomycin for C. difficile 14 days then taper, then discontinue Flagyl - will clarify if Flagyl needs to be DC'd by now. ? AFB, Mycobacterium - Chest CT showed new right lung pulmonary nodules. At this point there are too small for percutaneous biopsy. 2. Left lumbar lobe consolidating airspace disease. 3. Enlarging right hilar lymphadenopathy. 4. Stable subcarinal and bilateral axillary lymphadenopathy - Rule out TB - ID following ordered AFB sputum and AFB stool AIDS: CD4 <20 on 03/29/17 - following w/ Dr. Marie as outpatient, was to follow up to resume HAART. Start Zithro 1200mg q7d, Bactrim DS M/W/F. - Infectious disease following. Recommends to resume home HIV meds. has brought inpatient meds. Nurse notified sent to pharmacy to be restarted. Cirrhosis: - CT Abd/Pelvis w/ cirrhosis and portal hypertension, LFTs normal. Propranolol, Lasix, Aldactone. Hypokalemia Hypocalcemia - Most likely secondary to GI losses. - Will supplement as needed. - Check Potassium/ Calcium trend. Improved Hypocalcemia: Chronic. - Place as needed Pruritus - Lac Hydrin - Benadryl when necessary DVT Prophylaxis: SCD/Teds. Discuss with patient, nursing, Dr. Mccarty Discharge Planning Plan to DC home with home health care when cleared by ID. Case management following. Patient cleared by YVON. Radha Richmond Jun 29, 2017 14:27
[2017-06-29 16:00] VITALS: BP 103/61; PULSE 76; RESP 20; TEMP 97.8; O2SAT 100
[2017-06-29 20:00] VITALS: BP 102/53; PULSE 74; RESP 17; TEMP 97.3; O2SAT 100
[2017-06-29 20:20] VITALS: PULSE 95
[2017-06-30] MEDS: metroNIDAZOLE 250 MG INJ 50 ML IV SCH ×3 (00:53→16:35)
[2017-06-30 04:00] VITALS: BP 97/56; PULSE 76; RESP 18; TEMP 98.9; O2SAT 99
[2017-06-30] MEDS: PANTOPRAZOLE SODIUM 40 MG VIAL IV PUSH SCH ×2 (05:20→16:35)
[2017-06-30 08:00] VITALS: BP 100/58; PULSE 74; RESP 19; TEMP 97.8; O2SAT 97
[2017-06-30] MEDS: TRIUMEQ PO SCH (09:00)
[2017-06-30] MEDS: NYSTATIN SUSP 500,000 U/5 ML CUP SWISH-SWAL SCH ×4 (09:00→20:28)
[2017-06-30] MEDS: PREZCOBIX PO SCH (09:00)
[2017-06-30] MEDS: SODIUM CHLORIDE 0.9% FLUSH 10 ML FLUSH IV FLUSH SCH ×2 (09:00→20:29)
[2017-06-30] MEDS: LACTIC ACID (AMMONIUM LACTATE) 12% LOTION 225 GM BTL TOPICAL SCH ×2 (09:00→20:29)
[2017-06-30] MEDS: DOCUSATE SODIUM 50 MG/SENNA 8.6 MG TAB PO SCH ×2 (09:47→20:29)
[2017-06-30] MEDS: FUROSEMIDE 40 MG TAB PO SCH (09:47)
[2017-06-30] MEDS: LACTOBACILLUS ACIDOPHILUS TAB PO SCH ×2 (09:47→20:28)
[2017-06-30] MEDS: FLUCONAZOLE 100 MG TAB PO SCH (09:47)
[2017-06-30] MEDS: SPIRONOLACTONE 50 MG TAB PO SCH (10:24)
[2017-06-30] MEDS: PROPRANOLOL HCL 10 MG TAB PO SCH ×2 (10:24→20:29)
[2017-06-30] MEDS: VANCOMYCIN 500 MG VIAL (FOR ORAL USE ONLY) PO SCH ×4 (10:25→20:29)
[2017-06-30] MEDS: POTASSIUM CHLORIDE 20 MEQ CONTROLLED RELEASE TAB PO SCH (10:25)
--- NOTE | 2017-06-30 11:12 | HHI.PR ---
Subjective Remarks Follow-up visit C. difficile diarrhea, HIV/ AIDS, abdominal mass, cirrhosis. Patient seen and examined today lying in bed. Patient states she is doing well. Reports she is ready to go home. Asking for use if she could be sent home. States she had a stool today but it is soft and formed yellow in color. Denies pain or discomfort. Shortness of breath or dyspnea. Denies fevers, chills, nausea, vomiting. Denies dysuria. Objective Vitals Vital Signs Date Time Temp Pulse Resp B/P (MAP) Pulse Ox O2 Delivery O2 Flow Rate FiO2 06/30/17 08:00 97.8 74 19 100/58 (72) 97 06/30/17 07:55 06/30/17 04:00 98.9 76 18 97/56 (70) 99 06/30/17 02:22 20 06/29/17 20:20 95 06/29/17 20:00 97.3 74 17 102/53 (69) 100 06/29/17 16:00 97.8 76 20 103/61 (75) 100 06/29/17 12:00 96.9 72 20 105/62 (76) 98 I/O 06/29/17 06/29/17 06/29/17 06/30/17 06/30/17 06/30/17 06:59 14:59 22:59 06:59 14:59 22:59 Intake Total 530 ml 120 ml 1060 ml 240 ml Output Total 500 ml Balance 530 ml 120 ml 560 ml 240 ml Intake Oral 480 ml 120 ml 960 ml 240 ml IV Total 50 ml 100 ml 0 ml Output Urine Total 500 ml # Voids 1 1 # Bowel Movements 0 Result Diagram: 06/26/17 1038 06/29/17 0925 Imaging Last Impressions Chest CT 06/28/17 0000 Signed Impressions: Service Date/Time: Wednesday, June 28, 2017 08:55 - CONCLUSION: 1. 2 new right lung pulmonary nodules. At this point these are too small for percutaneous biopsy. 2. Left upper lobe consolidating airspace disease 3. Enlarging right hilar lymphadenopathy 4. Stable subcarinal and bilateral axillary lymphadenopathy. Yaya Guzamn MD Barium Swallow X-Ray 06/26/17 0000 Signed Impressions: Service Date/Time: Monday, June 26, 2017 09:20 - CONCLUSION: 1. Small sliding hiatal hernia. Grant Villasenor MD Abdomen/Pelvis CT 06/24/17 1444 Signed Impressions: Service Date/Time: Saturday, June 24, 2017 17:41 - CONCLUSION: Cirrhosis and stigmata of portal hypertension. Improved appearance of the bowel Prominent inguinal lymphadenopathy Nelson Garg MD Chest X-Ray 06/24/17 0000 Signed Impressions: Service Date/Time: Saturday, June 24, 2017 14:56 - CONCLUSION: No acute disease. Yosef Puente MD FACR Objective Remarks GENERAL: This is a thin appearing, well-developed patient, in no apparent distress. SKIN: Warm and dry. Multiple scab lesions bilateral upper extremity, bilateral lower extremities. Multiple scratch soto right and left elbow as well as right lower extremity. HEENT: Normocephalic. Pupils equal round and reactive. Nose without bleeding. Airway patent. NECK: Trachea midline. No JVD. Supple. CARDIOVASCULAR: Regular rate and rhythm without murmurs, gallops, or rubs. RESPIRATORY: Diminished bases. No wheezes, rales, or rhonchi. GASTROINTESTINAL: Abdomen soft, nondistended. Bowel Sounds normoactive x4. Tender to light palpation RUQ, RLQ, Mid epigastric region and LUQ. MUSCULOSKELETAL: Extremities without clubbing, cyanosis, or edema. NEUROLOGICAL: Awake and alert. Oriented to place, person. No focal neuro deficit. Moves all extremities. Normal speech. Procedures Status post EGD 06/28/17 A/P Problem List: (1) Sepsis ICD Code: A41.9 - Sepsis, unspecified organism (2) C. difficile colitis ICD Code: A04.72 - Enterocolitis due to Clostridium difficile, not specified as recurrent (3) AIDS (acquired immune deficiency syndrome) ICD Code: B20 - Human immunodeficiency virus [HIV] disease (4) Intractable abdominal pain ICD Code: R10.9 - Unspecified abdominal pain (5) Gastric mass ICD Code: K31.9 - Disease of stomach and duodenum, unspecified (6) Cirrhosis ICD Code: K74.60 - Unspecified cirrhosis of liver (7) Hypocalcemia ICD Code: E83.51 - Hypocalcemia (8) Lactic acidosis ICD Code: E87.2 - Acidosis Assessment and Plan Patient is a 52-year-old female who present with abdominal pain. Abdominal pain, epigastric area - Improved with morphine last. Asymptomatic. - CT scan of the abdomen showed cirrhosis of the liver with stigmata of portal hypertension. - May be secondary to multiple biopsies after EGD done on 06/22/2017. - s/p EGD by Dr. Lacy 06/22/17, found to have 1.5 x 1.5cm mass in cardia , s/p biopsies which showed mild chronic duodenitis with hemosiderin, chronic gastritis and tara, moderate chronic active gastritis. - Since patient has tara and esophageal and gastric area most likely needs to be on Diflucan. Pending recommendations from infectious disease. - Reconsulted GI since patient is having abdominal pain after procedure. Barium swallow done with results small sliding hiatal hernia. -EGD was done again today by Dr. Lacy with findings of benign appearing distal esophageal and cardia submucosal mass, subcarinal lymphadenopathy of unclear significance. Recommends to CT of the chest and to consider repeat EUS with fine-needle aspiration based on what the CT shows. - Chest CT showed 1. 2 new right lung pulmonary nodules. At this point these are too small for percutaneous biopsy. 2. Left upper lobe consolidating airspace disease. 3. Enlarging right hilar lymphadenopathy. 4. Stable subcarinal and bilateral axillary lymphadenopathy. - GI cleared patient for diet if she tolerates diet, they can clear her. Follow up with GI in 2-4 weeks. C. Diff Colitis: - Previous admit 05/12-05/18/17 for c/o abdominal pain, found to have C Diff Colitis, d/c'd on Vanc Taper. - Worsening of diarrhea the past few days. Repeat C. difficile PCR positive. - Infectious disease consulted recommends AFB of the stool. Restart HIV medication. Continue vancomycin for C. difficile 14 days then taper, then discontinue Flagyl - will clarify if Flagyl needs to be DC'd by now. - Diarrhea improved. Taper dose vanco liang as per ID recommendation DC flagyl. ? AFB, Mycobacterium - Chest CT showed new right lung pulmonary nodules. At this point there are too small for percutaneous biopsy. 2. Left lumbar lobe consolidating airspace disease. 3. Enlarging right hilar lymphadenopathy. 4. Stable subcarinal and bilateral axillary lymphadenopathy - Rule out TB - ID following ordered AFB sputum and AFB stool AIDS: CD4 <20 on 03/29/17 - following w/ Dr. Marie as outpatient, was to follow up to resume HAART. Start Zithro 1200mg q7d, Bactrim DS M/W/F. - Infectious disease following. Home HIV meds restarted. Cirrhosis: - CT Abd/Pelvis w/ cirrhosis and portal hypertension, LFTs normal. Propranolol, Lasix, Aldactone. Hypokalemia Hypocalcemia - Most likely secondary to GI losses. - Will supplement as needed. - Check Potassium/ Calcium trend. Improved Hypocalcemia: Chronic. - Place as needed Pruritus - Lac Hydrin - Benadryl when necessary DVT Prophylaxis: SCD/Teds. Discuss with patient, nursing, Dr. Mccarty Discharge Planning Plan to DC home with home health care when cleared by ID. Case management following. Patient cleared by Radha Schumacher Jun 30, 2017 11:12
[2017-06-30] MEDS ORDERED: AZIT600T PO (11:27)
[2017-06-30] MEDS ORDERED: DIFL100T PO (11:27)
[2017-06-30] MEDS ORDERED: SULF1TAB23 PO (11:27)
[2017-06-30 12:00] VITALS: BP 116/61; PULSE 70; RESP 20; TEMP 96.9; O2SAT 98
--- NOTE | 2017-06-30 12:20 | HHI.GIFU ---
Subjective Remarks Pt is resting in bed, in no apparent distress. She reports she is tolerating diet. Denies N/V/abdominal pain. Has had BM, states it was normal. She is wanting to go home. (Nicole Song) Objective Vitals I&O Vital Signs Date Time Temp Pulse Resp B/P (MAP) Pulse Ox O2 Delivery O2 Flow Rate FiO2 06/30/17 12:03 06/30/17 08:00 97.8 74 19 100/58 (72) 97 06/30/17 07:55 06/30/17 04:00 98.9 76 18 97/56 (70) 99 06/30/17 02:22 20 06/29/17 20:20 95 06/29/17 20:00 97.3 74 17 102/53 (69) 100 06/29/17 16:00 97.8 76 20 103/61 (75) 100 I/O 06/29/17 06/29/17 06/29/17 06/30/17 06/30/17 06/30/17 07:00 15:00 23:00 07:00 15:00 23:00 Intake Total 530 ml 120 ml 1060 ml 240 ml Output Total 500 ml Balance 530 ml 120 ml 560 ml 240 ml Intake Oral 480 ml 120 ml 960 ml 240 ml IV Total 50 ml 100 ml 0 ml Output Urine Total 500 ml # Voids 1 1 # Bowel Movements 0 Laboratory Date/Time Source Procedure Growth Status 06/24/17 16:40 Blood Peripheral Aerobic Blood Culture - Final NO GROWTH IN 5 DAYS Complete 06/24/17 16:40 Blood Peripheral Anaerobic Blood Culture - Final NO GROWTH IN 5 DAYS Complete 06/29/17 06:15 Sputum Expectorated Sputum Acid Fast Stain Pending Received 06/29/17 06:15 Sputum Expectorated Sputum Mycobacterial Culture Pending Received Imaging Last Impressions Chest CT 06/28/17 0000 Signed Impressions: Service Date/Time: Wednesday, June 28, 2017 08:55 - CONCLUSION: 1. 2 new right lung pulmonary nodules. At this point these are too small for percutaneous biopsy. 2. Left upper lobe consolidating airspace disease 3. Enlarging right hilar lymphadenopathy 4. Stable subcarinal and bilateral axillary lymphadenopathy. Yaya Guzman MD Barium Swallow X-Ray 06/26/17 0000 Signed Impressions: Service Date/Time: Monday, June 26, 2017 09:20 - CONCLUSION: 1. Small sliding hiatal hernia. Grant Villasenor MD Abdomen/Pelvis CT 06/24/17 1444 Signed Impressions: Service Date/Time: Saturday, June 24, 2017 17:41 - CONCLUSION: Cirrhosis and stigmata of portal hypertension. Improved appearance of the bowel Prominent inguinal lymphadenopathy Nelson Garg MD Chest X-Ray 06/24/17 0000 Signed Impressions: Service Date/Time: Saturday, June 24, 2017 14:56 - CONCLUSION: No acute disease. Yosef Puente MD FACR Physical Exam HEENT: Normocephalic; atraumatic; no jaundice. CHEST: CTA CARDIAC: RRR ABDOMEN: mildly distended, diffuse TTP; (+) hepatosplenomegaly; bowel sounds are present in all four quadrants. EXTREMITIES: No clubbing, cyanosis, or edema. SKIN: Normal; no rash; no jaundice. FOUNDRY HAND: No focal deficits; alert and oriented times three. (Nicole Song [facility]) Assessment and Plan Assessment: (1) Clostridium difficile diarrhea ICD Codes: A04.72 - Enterocolitis due to Clostridium difficile, not specified as recurrent (2) Esophageal stricture ICD Codes: K22.2 - Esophageal obstruction Status: Resolved (3) Dysphagia ICD Codes: R13.10 - Dysphagia, unspecified Status: Acute (4) Ascites ICD Codes: R18.8 - Other ascites Status: Acute (5) Liver cirrhosis ICD Codes: K74.60 - Unspecified cirrhosis of liver Status: Acute (6) HIV (human immunodeficiency virus infection) ICD Codes: Z21 - Asymptomatic human immunodeficiency virus [HIV] infection status Status: Acute (7) Abdominal distension ICD Codes: R14.0 - Abdominal distension (gaseous) Status: Acute (8) Weakness ICD Codes: R53.1 - Weakness Status: Acute (9) Hepatic cirrhosis ICD Codes: K74.60 - Unspecified cirrhosis of liver (10) Severe protein-calorie malnutrition ICD Codes: E43 - Unspecified severe protein-calorie malnutrition Status: Chronic (11) C. difficile colitis ICD Codes: A04.72 - Enterocolitis due to Clostridium difficile, not specified as recurrent Plan Assessment Dysphagia- EGD with EUS (06/28) --> The esophageal is at the GE junction and mostly in the cardia is a homogeneous isoechoic mass measuring 0.5 x 1.5 cm arising from the third layer possible early leiomyoma or a GIST. More notable was what looks like a subcarinal lymphadenopathy but it was somewhat vascular on endoscopic ultrasound and as such was not biopsied at this point the tube was homogeneous and mostly isoechoic of unclear significance. The pancreas appears to be unremarkable at this point with a normal pancreatic duct. CT chest was recommended W IV contrast --> 2 new right lung pulmonary nodules. At this point these are too small for percutaneous biopsy. Left upper lobe consolidating airspace disease. Enlarging right hilar lymphadenopathy. Stable subcarinal and bilateral axillary lymphadenopathy. EUS with FNA would be recommended. If pt is still admitted then could do early next week, if discharged we would recommend procedure outpatient. C. Diff positive diarrhea- Flagyl, Vanco. Cirrhosis with portal hypertension- history of ETOH use, HIV, cocaine abuse ( quit approx 10-[address] abd/pelvis W IV contrast (06/24) --> Cirrhosis and stigmata of portal hypertension. Improved appearance of the bowel. Prominent inguinal lymphadenopathy. Plan - Continue Flagyl - Continue Vanc - Lasix - Lactulose - EUS with FNA if still admitted then can do inpatient early next week, if discharged we recommend having procedure outpatient - JARAD - Supportive care This patient has been seen and examined by myself and Dr. Werner and this note is written on his behalf (Nicole Song) Physician Comments Seen and examined with SAMUEL, needs repeat EUS next week inpt. vs. outpt. Please let us know if pt inhouse next week. If dced home please schedule gi fu. Will sign off,Thank you (Liberty Werner MD) Nicole Song Jun 30, 2017 12:20 Liberty Werner MD Jun 30, 2017 15:39
[2017-06-30 16:00] VITALS: BP 104/62; PULSE 73; RESP 19; TEMP 97.6; O2SAT 99
[2017-06-30 17:33] LABS: M. TUBERCULOSIS PCR NOT DETECTED (NOT DETECT)
[2017-06-30 20:00] VITALS: BP 89/50; PULSE 70; RESP 18; TEMP 96.8; O2SAT 100
[2017-06-30 20:37] VITALS: BP 106/55
[2017-07-01] VITALS (7 sets, daily range): BP systolic 94–119; BP diastolic 51–63; PULSE 66–80; RESP 18–21; TEMP 96.9–100.6; O2SAT 95–99
[2017-07-01] MEDS: metroNIDAZOLE 250 MG INJ 50 ML IV SCH ×3 (00:38→17:28)
[2017-07-01] MEDS: PANTOPRAZOLE SODIUM 40 MG VIAL IV PUSH SCH (04:31)
[2017-07-01] MEDS: PREZCOBIX PO SCH (08:36)
[2017-07-01] MEDS: SPIRONOLACTONE 50 MG TAB PO SCH (08:37)
[2017-07-01] MEDS: SULFAMETHOXAZOLE-TRIMETHOPRIM DS 800-160 MG TAB PO SCH (08:37)
[2017-07-01] MEDS: LACTOBACILLUS ACIDOPHILUS TAB PO SCH ×2 (08:37→21:55)
[2017-07-01] MEDS: FUROSEMIDE 40 MG TAB PO SCH (08:38)
[2017-07-01] MEDS: POTASSIUM CHLORIDE 20 MEQ CONTROLLED RELEASE TAB PO SCH (08:38)
[2017-07-01] MEDS: PROPRANOLOL HCL 10 MG TAB PO SCH ×2 (08:38→21:55)
[2017-07-01] MEDS: FLUCONAZOLE 100 MG TAB PO SCH (08:39)
[2017-07-01] MEDS: NYSTATIN SUSP 500,000 U/5 ML CUP SWISH-SWAL SCH ×4 (08:40→21:55)
[2017-07-01] MEDS: VANCOMYCIN 500 MG VIAL (FOR ORAL USE ONLY) PO SCH ×4 (08:40→21:55)
[2017-07-01] MEDS: SODIUM CHLORIDE 0.9% FLUSH 10 ML FLUSH IV FLUSH SCH ×2 (08:41→21:56)
[2017-07-01] MEDS: TRIUMEQ PO SCH (08:44)
[2017-07-01] MEDS: DOCUSATE SODIUM 50 MG/SENNA 8.6 MG TAB PO SCH (08:44)
[2017-07-01] MEDS: LACTIC ACID (AMMONIUM LACTATE) 12% LOTION 225 GM BTL TOPICAL SCH ×2 (08:45→21:56)
--- NOTE | 2017-07-01 11:09 | HHI.PR ---
Subjective Remarks Follow-up C. difficile hypervirulent strain/MAC/AIDS end stage/Abdominal pain 07/01/17-patient seen and examined, denies any significant abdominal pain however had N/V this AM, currently afebrile Objective Vitals Vital Signs Date Time Temp Pulse Resp B/P (MAP) Pulse Ox O2 Delivery O2 Flow Rate FiO2 07/01/17 09:53 18 07/01/17 08:00 96.9 73 21 101/60 (74) 95 07/01/17 04:00 97.6 71 18 102/63 (76) 99 07/01/17 00:00 97.6 80 18 97/56 (70) 96 06/30/17 20:37 106/55 (72) 06/30/17 20:00 96.8 70 18 89/50 (63) 100 06/30/17 16:04 06/30/17 16:00 97.6 73 19 104/62 (76) 99 06/30/17 12:03 06/30/17 12:00 96.9 70 20 116/61 (79) 98 I/O 06/30/17 06/30/17 06/30/17 07/01/17 07/01/17 07/01/17 07:00 15:00 23:00 07:00 15:00 23:00 Intake Total 240 ml 1000 ml 50 ml 240 ml Output Total 900 ml Balance 240 ml 100 ml 50 ml 240 ml Intake Oral 240 ml 1000 ml 240 ml IV Total 0 ml 50 ml Output Urine Total 900 ml # Bowel Movements 1 Result Diagram: 06/29/17 0925 Imaging Last Impressions Chest CT 06/28/17 0000 Signed Impressions: Service Date/Time: Wednesday, June 28, 2017 08:55 - CONCLUSION: 1. 2 new right lung pulmonary nodules. At this point these are too small for percutaneous biopsy. 2. Left upper lobe consolidating airspace disease 3. Enlarging right hilar lymphadenopathy 4. Stable subcarinal and bilateral axillary lymphadenopathy. Yaya Guzman MD Barium Swallow X-Ray 06/26/17 0000 Signed Impressions: Service Date/Time: Monday, June 26, 2017 09:20 - CONCLUSION: 1. Small sliding hiatal hernia. Grant Villasenor MD Abdomen/Pelvis CT 06/24/17 1444 Signed Impressions: Service Date/Time: Saturday, June 24, 2017 17:41 - CONCLUSION: Cirrhosis and stigmata of portal hypertension. Improved appearance of the bowel Prominent inguinal lymphadenopathy Nelson Garg MD Chest X-Ray 06/24/17 0000 Signed Impressions: Service Date/Time: Saturday, June 24, 2017 14:56 - CONCLUSION: No acute disease. Yosef Puente MD FACR Objective Remarks GENERAL: NAD but cachectic looking female SKIN: Warm and dry. HEAD: Normocephalic. EYES: No scleral icterus. No injection or drainage. NECK: Supple, trachea midline. No JVD or lymphadenopathy. CARDIOVASCULAR: Regular rate and rhythm without murmurs, gallops, or rubs. RESPIRATORY: Breath sounds equal bilaterally. No accessory muscle use. GASTROINTESTINAL: Abdomen soft, non-tender, nondistended. MUSCULOSKELETAL: No cyanosis, or edema. BACK: Nontender without obvious deformity. No CVA tenderness. Procedures Status post EGD 06/28/17 A/P Problem List: (1) Sepsis ICD Code: A41.9 - Sepsis, unspecified organism (2) C. difficile colitis ICD Code: A04.72 - Enterocolitis due to Clostridium difficile, not specified as recurrent (3) AIDS (acquired immune deficiency syndrome) ICD Code: B20 - Human immunodeficiency virus [HIV] disease (4) Intractable abdominal pain ICD Code: R10.9 - Unspecified abdominal pain (5) Gastric mass ICD Code: K31.9 - Disease of stomach and duodenum, unspecified (6) Cirrhosis ICD Code: K74.60 - Unspecified cirrhosis of liver (7) Hypocalcemia ICD Code: E83.51 - Hypocalcemia (8) Lactic acidosis ICD Code: E87.2 - Acidosis Assessment and Plan 52-year-old female with Abdominal pain, epigastric area - Asymptomatic. - CT scan of the abdomen showed cirrhosis of the liver with stigmata of portal hypertension. - s/p EGD by Dr. Lacy 06/22/17, found to have 1.5 x 1.5cm mass in cardia -EGD was done again 06/28/[address] Lacy -outpatient EUS with FNA. Follow up with GI in 2-4 weeks. -d/c Flagyl C. Diff Colitis - Previous admit 05/12-05/18/17 for c/o abdominal pain, found to have C Diff Colitis, d/c'd on Vanc Taper. - Infectious disease consulted recommends AFB of the stool. Restart HIV medication. Continue vancomycin for C. difficile 14 days then taper, ? AFB, Mycobacterium - Chest CT showed new right lung pulmonary nodules. At this point there are too small for percutaneous biopsy. 2. Left lumbar lobe consolidating airspace disease. 3. Enlarging right hilar lymphadenopathy. 4. Stable subcarinal and bilateral axillary lymphadenopathy - ID following ordered AFB sputum and AFB stool AIDS: CD4 <20 on 03/29/17 - following w/ Dr. Marie as outpatient, was to follow up to resume HAART. on Zithromax 1200mg q7d, Bactrim DS M/W/F. - Infectious disease following. Home HIV meds restarted. Cirrhosis: - CT Abd/Pelvis w/ cirrhosis and portal hypertension, LFTs normal. Propranolol, Lasix, Aldactone. Hypokalemia Hypocalcemia -replace electrolytes accordingly Hypocalcemia: Chronic. - Place as needed Pruritus - Lac Hydrin - Benadryl when necessary DVT Prophylaxis: SCD/Teds. Grant Coto MD Jul 01, 2017 11:09
[2017-07-01] MEDS: diphenhydrAMINE HCL 25 MG CAP PO PRN (11:20)
[2017-07-01] MEDS: PANTOPRAZOLE SOD 40 MG DELAYED RELEASE TAB PO SCH (21:55)
[2017-07-01] MEDS: AZITHROMYCIN 600 MG TAB PO SCH (21:56)
[2017-07-02 03:28] VITALS: PULSE 84
[2017-07-02 04:00] VITALS: BP 96/50; PULSE 83; RESP 18; TEMP 99.9; O2SAT 96
[2017-07-02 08:00] VITALS: BP 94/52; PULSE 77; RESP 16; TEMP 97.3; O2SAT 96
[2017-07-02] MEDS: SODIUM CHLORIDE 0.9% FLUSH 10 ML FLUSH IV FLUSH SCH ×2 (09:00→20:23)
[2017-07-02] MEDS: LACTIC ACID (AMMONIUM LACTATE) 12% LOTION 225 GM BTL TOPICAL SCH ×2 (09:00→20:23)
[2017-07-02] MEDS: TRIUMEQ PO SCH (09:00)
[2017-07-02] MEDS: PREZCOBIX PO SCH (09:00)
[2017-07-02] MEDS: PROPRANOLOL HCL 10 MG TAB PO SCH ×2 (09:00→20:23)
[2017-07-02] MEDS: NYSTATIN SUSP 500,000 U/5 ML CUP SWISH-SWAL SCH ×4 (10:30→20:23)
[2017-07-02] MEDS: LACTOBACILLUS ACIDOPHILUS TAB PO SCH ×2 (10:30→20:23)
[2017-07-02] MEDS: SPIRONOLACTONE 50 MG TAB PO SCH (10:31)
[2017-07-02] MEDS: VANCOMYCIN 500 MG VIAL (FOR ORAL USE ONLY) PO SCH ×4 (10:31→20:23)
[2017-07-02] MEDS: POTASSIUM CHLORIDE 20 MEQ CONTROLLED RELEASE TAB PO SCH (10:31)
[2017-07-02] MEDS: FUROSEMIDE 40 MG TAB PO SCH (10:31)
[2017-07-02] MEDS: FLUCONAZOLE 100 MG TAB PO SCH (10:31)
[2017-07-02] MEDS: PANTOPRAZOLE SOD 40 MG DELAYED RELEASE TAB PO SCH ×2 (10:31→20:23)
--- NOTE | 2017-07-02 11:28 | HHI.PR ---
Subjective Remarks Follow-up C. difficile hypervirulent strain/MAC/AIDS end stage/Abdominal pain 07/01/17-patient seen and examined, denies any significant abdominal pain however had N/V this AM, currently afebrile 07/02/17-patient seen and examined, denies anymore diarrheal episode. Yessica no nausea and vomiting over the past 24 hours Objective Vitals Vital Signs Date Time Temp Pulse Resp B/P (MAP) Pulse Ox O2 Delivery O2 Flow Rate FiO2 07/02/17 08:00 97.3 77 16 94/52 (66) 96 07/02/17 04:00 99.9 83 18 96/50 (65) 96 07/02/17 03:28 84 07/01/17 20:00 100.6 72 18 108/61 (77) 99 07/01/17 18:25 18 07/01/17 16:00 96.9 66 19 119/63 (81) 96 07/01/17 13:32 69 07/01/17 12:00 96.9 72 20 94/51 (65) 97 I/O 07/01/17 07/01/17 07/01/17 07/02/17 07/02/17 07/02/17 06:59 14:59 22:59 06:59 14:59 22:59 Intake Total 50 ml 240 ml 950 ml 720 ml Output Total 800 ml 400 ml Balance 50 ml 240 ml 150 ml 320 ml Intake Oral 240 ml 950 ml 720 ml IV Total 50 ml Output Urine Total 800 ml 400 ml # Bowel Movements 1 Result Diagram: 06/29/17 0925 Objective Remarks GENERAL: NAD but cachectic looking female SKIN: Warm and dry. HEAD: Normocephalic. EYES: No scleral icterus. No injection or drainage. NECK: Supple, trachea midline. No JVD or lymphadenopathy. CARDIOVASCULAR: Regular rate and rhythm without murmurs, gallops, or rubs. RESPIRATORY: Breath sounds equal bilaterally. No accessory muscle use. GASTROINTESTINAL: Abdomen soft, non-tender, nondistended. MUSCULOSKELETAL: No cyanosis, or edema. BACK: Nontender without obvious deformity. No CVA tenderness. Procedures Status post EGD 06/28/17 A/P Problem List: (1) Sepsis ICD Code: A41.9 - Sepsis, unspecified organism (2) C. difficile colitis ICD Code: A04.72 - Enterocolitis due to Clostridium difficile, not specified as recurrent (3) AIDS (acquired immune deficiency syndrome) ICD Code: B20 - Human immunodeficiency virus [HIV] disease (4) Intractable abdominal pain ICD Code: R10.9 - Unspecified abdominal pain (5) Gastric mass ICD Code: K31.9 - Disease of stomach and duodenum, unspecified (6) Cirrhosis ICD Code: K74.60 - Unspecified cirrhosis of liver (7) Hypocalcemia ICD Code: E83.51 - Hypocalcemia (8) Lactic acidosis ICD Code: E87.2 - Acidosis Assessment and Plan 52-year-old female with Abdominal pain, epigastric area - Asymptomatic. - CT scan of the abdomen showed cirrhosis of the liver with stigmata of portal hypertension. - s/p EGD by Dr. Lacy 06/22/17, found to have 1.5 x 1.5cm mass in cardia -EGD was done again 06/28/[address] Lacy -outpatient EUS with FNA. Follow up with GI in 2-4 weeks. -s/p Flagyl C. Diff Colitis - Previous admit 05/12-05/18/17 for c/o abdominal pain, found to have C Diff Colitis, d/c'd on Vanc Taper. - Infectious disease consulted recommends AFB of the stool. Restart HIV medication. Continue vancomycin for C. difficile 14 days then taper, ? AFB, Mycobacterium - Chest CT showed new right lung pulmonary nodules. At this point there are too small for percutaneous biopsy. 2. Left lumbar lobe consolidating airspace disease. 3. Enlarging right hilar lymphadenopathy. 4. Stable subcarinal and bilateral axillary lymphadenopathy - ID following ordered AFB sputum and AFB stool; mycobacteria culture pending AIDS: CD4 <20 on 03/29/17 - following w/ Dr. Marie as outpatient. on Zithromax 1200mg q7d, Bactrim DS M/W/F. - Infectious disease following. Continue with HAART Cirrhosis: - CT Abd/Pelvis w/ cirrhosis and portal hypertension, LFTs normal. Propranolol, Lasix, Aldactone. Hypokalemia Hypocalcemia -replace electrolytes accordingly Hypocalcemia: Chronic. - Continue to monitor Pruritus - Lac Hydrin - Benadryl when necessary DVT Prophylaxis: SCD/Teds. Grant Coto MD Jul 02, 2017 11:28
[2017-07-02 12:00] VITALS: BP 99/60; PULSE 73; RESP 17; TEMP 97.7; O2SAT 96
[2017-07-02 16:00] VITALS: BP 107/59; PULSE 74; RESP 16; TEMP 97.6; O2SAT 95
[2017-07-02 20:00] VITALS: BP 101/59; PULSE 75; PULSE 77; RESP 17; TEMP 95.6; O2SAT 98
[2017-07-02] MEDS: diphenhydrAMINE HCL 25 MG CAP PO PRN (20:28)
[2017-07-03] VITALS: BP 95/53; PULSE 70; RESP 18; TEMP 96.1; O2SAT 100
[2017-07-03 04:00] VITALS: BP 106/55; PULSE 70; RESP 17; TEMP 95.5; O2SAT 99
[2017-07-03 08:00] VITALS: BP 105/56; PULSE 73; RESP 16; TEMP 96.6; O2SAT 100
[2017-07-03] MEDS: LACTOBACILLUS ACIDOPHILUS TAB PO SCH ×2 (08:16→20:17)
[2017-07-03] MEDS: NYSTATIN SUSP 500,000 U/5 ML CUP SWISH-SWAL SCH ×4 (08:16→20:17)
[2017-07-03] MEDS: POTASSIUM CHLORIDE 20 MEQ CONTROLLED RELEASE TAB PO SCH (08:16)
[2017-07-03] MEDS: SPIRONOLACTONE 50 MG TAB PO SCH (08:20)
[2017-07-03] MEDS: FLUCONAZOLE 100 MG TAB PO SCH (08:20)
[2017-07-03] MEDS: VANCOMYCIN 500 MG VIAL (FOR ORAL USE ONLY) PO SCH ×4 (08:20→20:17)
[2017-07-03] MEDS: PANTOPRAZOLE SOD 40 MG DELAYED RELEASE TAB PO SCH ×2 (08:20→20:17)
[2017-07-03] MEDS: PROPRANOLOL HCL 10 MG TAB PO SCH ×2 (08:21→20:18)
[2017-07-03] MEDS: FUROSEMIDE 40 MG TAB PO SCH (08:21)
[2017-07-03] MEDS: TRIUMEQ PO SCH (08:21)
[2017-07-03] MEDS: PREZCOBIX PO SCH (08:21)
[2017-07-03] MEDS: SODIUM CHLORIDE 0.9% FLUSH 10 ML FLUSH IV FLUSH SCH ×2 (08:21→20:17)
[2017-07-03] MEDS: LACTIC ACID (AMMONIUM LACTATE) 12% LOTION 225 GM BTL TOPICAL SCH ×2 (08:22→20:17)
--- NOTE | 2017-07-03 10:04 | HHI.PR ---
Subjective Remarks Follow-up C. difficile hypervirulent strain/MAC/AIDS end stage/Abdominal pain 07/01/17-patient seen and examined, denies any significant abdominal pain however had N/V this AM, currently afebrile 07/02/17-patient seen and examined, denies anymore diarrheal episode. Yessica no nausea and vomiting over the past 24 hours 07/03/17-patient seen and examined, has no complaint and stable. Objective Vitals Vital Signs Date Time Temp Pulse Resp B/P (MAP) Pulse Ox O2 Delivery O2 Flow Rate FiO2 07/03/17 08:00 96.6 73 16 105/56 (72) 100 07/03/17 04:00 95.5 70 17 106/55 (72) 99 07/03/17 00:00 96.1 70 18 95/53 (67) 100 07/02/17 20:00 77 07/02/17 20:00 95.6 75 17 101/59 (73) 98 07/02/17 16:00 97.6 74 16 107/59 (75) 95 07/02/17 12:00 97.7 73 17 99/60 (73) 96 I/O 07/02/17 07/02/17 07/02/17 07/03/17 07/03/17 07/03/17 07:00 15:00 23:00 07:00 15:00 23:00 Intake Total 720 ml 720 ml 240 ml Output Total 400 ml Balance 320 ml 720 ml 240 ml Intake Oral 720 ml 720 ml 240 ml Output Urine Total 400 ml # Voids 10 2 # Bowel Movements 2 Result Diagram: 06/29/17 0925 Objective Remarks GENERAL: NAD but cachectic looking female SKIN: Warm and dry. HEAD: Normocephalic. EYES: No scleral icterus. No injection or drainage. NECK: Supple, trachea midline. No JVD or lymphadenopathy. CARDIOVASCULAR: Regular rate and rhythm without murmurs, gallops, or rubs. RESPIRATORY: Breath sounds equal bilaterally. No accessory muscle use. GASTROINTESTINAL: Abdomen soft, non-tender, nondistended. MUSCULOSKELETAL: No cyanosis, or edema. BACK: Nontender without obvious deformity. No CVA tenderness. Procedures Status post EGD 06/28/17 A/P Problem List: (1) Sepsis ICD Code: A41.9 - Sepsis, unspecified organism (2) C. difficile colitis ICD Code: A04.72 - Enterocolitis due to Clostridium difficile, not specified as recurrent (3) AIDS (acquired immune deficiency syndrome) ICD Code: B20 - Human immunodeficiency virus [HIV] disease (4) Intractable abdominal pain ICD Code: R10.9 - Unspecified abdominal pain (5) Gastric mass ICD Code: K31.9 - Disease of stomach and duodenum, unspecified (6) Cirrhosis ICD Code: K74.60 - Unspecified cirrhosis of liver (7) Hypocalcemia ICD Code: E83.51 - Hypocalcemia (8) Lactic acidosis ICD Code: E87.2 - Acidosis Assessment and Plan 52-year-old female with Abdominal pain, epigastric area - Asymptomatic. - CT scan of the abdomen showed cirrhosis of the liver with stigmata of portal hypertension. - s/p EGD by Dr. Lacy 06/22/17, found to have 1.5 x 1.5cm mass in cardia -EGD was done again 06/28/[address] Lacy -outpatient EUS with FNA. Follow up with GI in 2-4 weeks. -s/p Flagyl C. Diff Colitis - Previous admit 05/12-05/18/17 for c/o abdominal pain, found to have C Diff Colitis, d/c'd on Vanc Taper. - Infectious disease consulted recommends AFB of the stool. Restart HIV medication. Continue vancomycin for C. difficile 14 days then taper, ? AFB, Mycobacterium - Chest CT showed new right lung pulmonary nodules. At this point there are too small for percutaneous biopsy. 2. Left lumbar lobe consolidating airspace disease. 3. Enlarging right hilar lymphadenopathy. 4. Stable subcarinal and bilateral axillary lymphadenopathy - ID following ordered AFB sputum and AFB stool; mycobacteria culture still pending AIDS: CD4 <20 on 03/29/17 - following w/ Dr. Marie as outpatient. on Zithromax 1200mg q7d, Bactrim DS M/W/F. - Infectious disease following. Continue with HAART Cirrhosis: - CT Abd/Pelvis w/ cirrhosis and portal hypertension, LFTs normal. Propranolol, Lasix, Aldactone. Hypokalemia Hypocalcemia -replace electrolytes accordingly Hypocalcemia: Chronic. - Continue to monitor Pruritus - Lac Hydrin - Benadryl when necessary DVT Prophylaxis: SCD/Teds. Pontey,Grant MD Jul 03, 2017 10:04
[2017-07-03 12:00] VITALS: BP 103/65; PULSE 78; RESP 17; TEMP 98; O2SAT 17
[2017-07-03 16:00] VITALS: BP 104/56; PULSE 78; RESP 17; TEMP 98.5; O2SAT 100
[2017-07-03 20:00] VITALS: BP 95/56; PULSE 74; RESP 16; TEMP 96.5; O2SAT 99
[2017-07-04] VITALS: BP 95/59; PULSE 68; PULSE 71; RESP 17; TEMP 96.3; O2SAT 98
[2017-07-04 04:00] VITALS: BP 94/57; PULSE 77; RESP 17; TEMP 96.4; O2SAT 100
[2017-07-04 08:00] VITALS: BP 88/53; PULSE 77; RESP 16; TEMP 97.5; O2SAT 97
[2017-07-04] MEDS: PROPRANOLOL HCL 10 MG TAB PO SCH ×2 (09:00→09:46)
[2017-07-04] MEDS: PREZCOBIX PO SCH (09:00)
[2017-07-04] MEDS: SPIRONOLACTONE 50 MG TAB PO SCH (09:00)
[2017-07-04] MEDS: TRIUMEQ PO SCH (09:00)
[2017-07-04] MEDS: SODIUM CHLORIDE 0.9% FLUSH 10 ML FLUSH IV FLUSH SCH (09:00)
[2017-07-04] MEDS: FUROSEMIDE 40 MG TAB PO SCH ×2 (09:00→09:46)
[2017-07-04] MEDS: LACTOBACILLUS ACIDOPHILUS TAB PO SCH (09:45)
[2017-07-04] MEDS: POTASSIUM CHLORIDE 20 MEQ CONTROLLED RELEASE TAB PO SCH (09:46)
[2017-07-04] MEDS: PANTOPRAZOLE SOD 40 MG DELAYED RELEASE TAB PO SCH (09:46)
[2017-07-04] MEDS: diphenhydrAMINE HCL 25 MG CAP PO PRN (09:46)
[2017-07-04] MEDS: FLUCONAZOLE 100 MG TAB PO SCH (09:48)
[2017-07-04] MEDS: NYSTATIN SUSP 500,000 U/5 ML CUP SWISH-SWAL SCH ×2 (09:49→14:35)
[2017-07-04] MEDS: SULFAMETHOXAZOLE-TRIMETHOPRIM DS 800-160 MG TAB PO SCH (09:57)
[2017-07-04] MEDS: VANCOMYCIN 500 MG VIAL (FOR ORAL USE ONLY) PO SCH ×2 (09:58→14:35)
[2017-07-04] MEDS: LACTIC ACID (AMMONIUM LACTATE) 12% LOTION 225 GM BTL TOPICAL SCH (10:42)
[2017-07-04 12:00] VITALS: BP 96/59; PULSE 68; RESP 16; TEMP 97.6; O2SAT 98
--- NOTE | 2017-07-04 12:20 | HHI.PR ---
Subjective Remarks Follow-up C. difficile hypervirulent strain/MAC/AIDS end stage/Abdominal pain 07/01/17-patient seen and examined, denies any significant abdominal pain however had N/V this AM, currently afebrile 07/02/17-patient seen and examined, denies anymore diarrheal episode. A Had no nausea and vomiting over the past 24 hours 07/03/17-patient seen and examined, has no complaint and stable. 07/04/17-patient seen and examined, states she's stable and no more diarrhea. Objective Vitals Vital Signs Date Time Temp Pulse Resp B/P (MAP) Pulse Ox O2 Delivery O2 Flow Rate FiO2 07/04/17 08:00 97.5 77 16 88/53 (65) 97 07/04/17 04:00 96.4 77 17 94/57 (69) 100 07/04/17 00:00 68 07/04/17 00:00 96.3 71 17 95/59 (71) 98 07/03/17 20:00 96.5 74 16 95/56 (69) 99 07/03/17 16:00 98.5 78 17 104/56 (72) 100 I/O 07/03/17 07/03/17 07/03/17 07/04/17 07/04/17 07/04/17 07:00 15:00 23:00 07:00 15:00 23:00 Intake Total 240 ml 480 ml 480 ml Balance 240 ml 480 ml 480 ml Intake Oral 240 ml 480 ml 480 ml # Voids 2 5 2 # Bowel Movements 1 Imaging Last Impressions Chest CT 06/28/17 0000 Signed Impressions: Service Date/Time: Wednesday, June 28, 2017 08:55 - CONCLUSION: 1. 2 new right lung pulmonary nodules. At this point these are too small for percutaneous biopsy. 2. Left upper lobe consolidating airspace disease 3. Enlarging right hilar lymphadenopathy 4. Stable subcarinal and bilateral axillary lymphadenopathy. Yaya Guzman MD Barium Swallow X-Ray 06/26/17 0000 Signed Impressions: Service Date/Time: Monday, June 26, 2017 09:20 - CONCLUSION: 1. Small sliding hiatal hernia. Grant Villasenor MD Abdomen/Pelvis CT 06/24/17 1444 Signed Impressions: Service Date/Time: Saturday, June 24, 2017 17:41 - CONCLUSION: Cirrhosis and stigmata of portal hypertension. Improved appearance of the bowel Prominent inguinal lymphadenopathy Nelson Garg MD Chest X-Ray 06/24/17 0000 Signed Impressions: Service Date/Time: Saturday, June 24, 2017 14:56 - CONCLUSION: No acute disease. Yosef Puente MD FACR Objective Remarks GENERAL: NAD but cachectic looking female SKIN: Warm and dry. HEAD: Normocephalic. EYES: No scleral icterus. No injection or drainage. NECK: Supple, trachea midline. No JVD or lymphadenopathy. CARDIOVASCULAR: Regular rate and rhythm without murmurs, gallops, or rubs. RESPIRATORY: Breath sounds equal bilaterally. No accessory muscle use. GASTROINTESTINAL: Abdomen soft, non-tender, nondistended. MUSCULOSKELETAL: No cyanosis, or edema. BACK: Nontender without obvious deformity. No CVA tenderness. Procedures Status post EGD 06/28/17 A/P Problem List: (1) Sepsis ICD Code: A41.9 - Sepsis, unspecified organism Status: Resolved (2) C. difficile colitis ICD Code: A04.72 - Enterocolitis due to Clostridium difficile, not specified as recurrent (3) AIDS (acquired immune deficiency syndrome) ICD Code: B20 - Human immunodeficiency virus [HIV] disease (4) Intractable abdominal pain ICD Code: R10.9 - Unspecified abdominal pain (5) Gastric mass ICD Code: K31.9 - Disease of stomach and duodenum, unspecified (6) Cirrhosis ICD Code: K74.60 - Unspecified cirrhosis of liver (7) Hypocalcemia ICD Code: E83.51 - Hypocalcemia (8) Lactic acidosis ICD Code: E87.2 - Acidosis Assessment and Plan 52-year-old female with Abdominal pain, epigastric area - Asymptomatic. - CT scan of the abdomen showed cirrhosis of the liver with stigmata of portal hypertension. - s/p EGD by Dr. Lacy 06/22/17, found to have 1.5 x 1.5cm mass in cardia -EGD was done again 06/28/[address] Lacy -outpatient EUS with FNA. Follow up with GI in 2-4 weeks. -s/p Flagyl C. Diff Colitis - Previous admit 05/12-05/18/17 for c/o abdominal pain, found to have C Diff Colitis, d/c'd on Vanc Taper. - Infectious disease consulted. Restarted on HIV medication. Continue vancomycin for C. difficile 14 days then taper, ? AFB, Mycobacterium - Chest CT showed new right lung pulmonary nodules. At this point there are too small for percutaneous biopsy. 2. Left lumbar lobe consolidating airspace disease. 3. Enlarging right hilar lymphadenopathy. 4. Stable subcarinal and bilateral axillary lymphadenopathy - ID following ordered AFB sputum and AFB stool; mycobacteria culture still pending AIDS: CD4 <20 on 03/29/17 - following w/ Dr. Marie as outpatient. on Zithromax 1200mg q7d, Bactrim DS M/W/F. - Infectious disease following. Continue with HAART Cirrhosis: - CT Abd/Pelvis w/ cirrhosis and portal hypertension, LFTs normal. Propranolol, Lasix, Aldactone. Hypokalemia Hypocalcemia -replace electrolytes accordingly Hypocalcemia: Chronic. - Continue to monitor Pruritus - Lac Hydrin - Benadryl when necessary DVT Prophylaxis: SCD/Teds. Grant Coto MD Jul 04, 2017 12:20
--- NOTE | 2017-07-04 15:28 | HHI.IDPN ---
Subjective Subjective Remarks doing ok afebrile can swallow her pills OK no cough, SOB Antibiotics vanco azithro fluc HIV Dalutegravir/Abacavir/ Epivir Darunavi/ cobistat Past Medical History end stage AIDS Allergies: Coded Allergies: No Known Allergies (Verified Allergy, Unknown, 06/24/17) Objective . Vital Signs Date Time Temp Pulse Resp B/P (MAP) Pulse Ox O2 Delivery O2 Flow Rate FiO2 07/04/17 12:00 97.6 68 16 96/59 (71) 98 07/04/17 08:00 97.5 77 16 88/53 (65) 97 07/04/17 04:00 96.4 77 17 94/57 (69) 100 07/04/17 00:00 68 07/04/17 00:00 96.3 71 17 95/59 (71) 98 07/03/17 20:00 96.5 74 16 95/56 (69) 99 07/03/17 16:00 98.5 78 17 104/56 (72) 100 Imaging Last Impressions Chest CT 06/28/17 0000 Signed Impressions: Service Date/Time: Wednesday, June 28, 2017 08:55 - CONCLUSION: 1. 2 new right lung pulmonary nodules. At this point these are too small for percutaneous biopsy. 2. Left upper lobe consolidating airspace disease 3. Enlarging right hilar lymphadenopathy 4. Stable subcarinal and bilateral axillary lymphadenopathy. Yaya Guzman MD Barium Swallow X-Ray 06/26/17 0000 Signed Impressions: Service Date/Time: Monday, June 26, 2017 09:20 - CONCLUSION: 1. Small sliding hiatal hernia. Grant Villasenor MD Abdomen/Pelvis CT 06/24/17 1444 Signed Impressions: Service Date/Time: Saturday, June 24, 2017 17:41 - CONCLUSION: Cirrhosis and stigmata of portal hypertension. Improved appearance of the bowel Prominent inguinal lymphadenopathy Nelson Garg MD Chest X-Ray 06/24/17 0000 Signed Impressions: Service Date/Time: Saturday, June 24, 2017 14:56 - CONCLUSION: No acute disease. Yosef Puente MD FACR Physical Exam CONSTITUTIONAL/GENERAL: This is a thin female patient, in no apparent distress , chronicaly ill appearing TUBES/LINES/DRAINS: SKIN: No jaundice, rashes, or lesions. Skin temperature appropriate. Not diaphoretic. EYES: Pupils equal and round and reactive. Extraocular motions intact. No scleral icterus. No injection or drainage. Fundi not examined. ENT: Hearing grossly normal. Nose without bleeding or purulent drainage. oral mucosae without visible erythema, exudates, masses, or lesions. Edentulos No oral thrush CARDIOVASCULAR: Regular rate and rhythm without murmurs, gallops, or rubs. No JVD. Peripheral pulses symmetric. RESPIRATORY/CHEST: Symmetric, unlabored respirations. Clear to auscultation. Breath sounds equal bilaterally. No wheezes, rales, or rhonchi. GASTROINTESTINAL: Abdomen soft, not tender , minimallly distended. No hepato- splenomegaly, or palpable masses. No guarding. Bowel sounds present. MUSCULOSKELETAL: Extremities without clubbing, cyanosis, or edema. No joint tenderness or effusion noted. No calf tenderness. No mottling or clubbing. NEUROLOGICAL: Awake and alert. Motor and sensory grossly within normal limits. Follows commands. Clear speech . Moves all extremities. PSYCHIATRIC: No obvious anxiety/depression. no apparent hallucinations or other psychotic thought process. Assessment & Plan Remarks C.diff, hypervirulent strain with > 2nd reciurrentce MAC in stool previously, on Azithromycin HIV/end stage AIDS, ? 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 NO use to repeat it cotn vancomycin tx for C.diff x 14 days,then taper : vancomycin 125 mg po bid x 7days vancomycin 125 mg po daily x 7days vancomycin 125 mg po every other day x 7days vancomycin 125 mg po q 72 hrs x 5 doses fu AFB stool clx, probe fu sputum AFB, cont HIV tx cont profilaxis med (bactrim, azoithro) avoid systemic abx unless shows signs cw PNA fu with her HIV provider as o/p repeat CXR CT scan Anaid Lazcano Dr, MD Jul 04, 2017 15:28
[2017-07-04 16:00] VITALS: BP 101/66; PULSE 70; RESP 16; TEMP 97.4; O2SAT 98
[2017-07-04] MEDS ORDERED: VANC125C3 PO ×3 (16:48)
[2017-07-04] MEDS ORDERED: VANC1CAP6 PO (16:48)
--- NOTE | 2017-07-04 16:54 | HHI.DS ---
Discharge Summary Admission Date Jun 24, 2017 at 18:48 Discharge Date: Jul 04, 2017 Admitting Diagnosis abdominal pain, immunodeficiency, hypocalcemia, lactic acidosis (1) Sepsis ICD Code: A41.9 - Sepsis, unspecified organism Status: Resolved (2) C. difficile colitis ICD Code: A04.72 - Enterocolitis due to Clostridium difficile, not specified as recurrent (3) AIDS (acquired immune deficiency syndrome) ICD Code: B20 - Human immunodeficiency virus [HIV] disease (4) Intractable abdominal pain ICD Code: R10.9 - Unspecified abdominal pain (5) Gastric mass ICD Code: K31.9 - Disease of stomach and duodenum, unspecified (6) Cirrhosis ICD Code: K74.60 - Unspecified cirrhosis of liver (7) Hypocalcemia ICD Code: E83.51 - Hypocalcemia (8) Lactic acidosis ICD Code: E87.2 - Acidosis Procedures Status post EGD 06/28/17 Brief History - From Admission This is a 51-year-old female with a PMH of Depression, HIV (CD4 <20 03/29/17), Cirrhosis and Gastric Mass who presented to the ER w/ complaints of abdominal pain x2 days. Reports associated nausea, vomiting and diarrhea. Previous admit 05/12-05/18/17 for similar complaints, found to have C Diff Colitis, s/p eval by ID, d/c'd on Vanc PO taper. S/p EGD by Dr. Lacy 06/22/17 w/ Schatzki ring s/p dilatation, Mass in Cardia 1.5 x 1.5cm s/p biopsies and mild gastritis s/p biopsies, pending pathology. On arrival, BP 131. 9, HR 91, O2 sat 100% on RA, Afebrile. WBC 7.2, baseline 4.2, significant bandemia 47%. Hgb 10.2. Calcium 7.0. INR 1.3. UA negative. CXR with no acute findings. CT Abd/Pelvis w/ cirrhosis and stigmata of portal hypertension, improved appearance of bowel, prominent inguinal lymphadenopathy. S/p Blood Cultures, Zosyn, Morphine/Zofran in ER. PE at Discharge GENERAL: NAD but cachectic looking female SKIN: Warm and dry. HEAD: Normocephalic. EYES: No scleral icterus. No injection or drainage. NECK: Supple, trachea midline. No JVD or lymphadenopathy. CARDIOVASCULAR: Regular rate and rhythm without murmurs, gallops, or rubs. RESPIRATORY: Breath sounds equal bilaterally. No accessory muscle use. GASTROINTESTINAL: Abdomen soft, non-tender, nondistended. MUSCULOSKELETAL: No cyanosis, or edema. BACK: Nontender without obvious deformity. No CVA tenderness. Pt Condition on Discharge: Fair Discharge Disposition: Disch w/ Home Health Serv Discharge Time: > 30 minutes Discharge Instructions DIET: Follow Instructions for: Heart Healthy Diet Activities you can perform: Regular-No Restrictions Follow up Referrals: Infectious Disease PCP Follow-up - 1 Week New Medications: Vancomycin (Vancomycin) 125 Mg Cap 125 MG PO BID for Infection, #14 CAP 0 Refills Vancomycin (Vancocin) 125 Mg Cap 125 MG PO DAILY for Infection, #7 CAP 0 Refills Vancomycin (Vancomycin) 125 Mg Cap 125 MG PO EVERY OTHER DAY for Infection, #4 CAP 0 Refills Vancomycin (Vancomycin) 125 Mg Cap 125 MG PO Q3D for Infection, #2 CAP 0 Refills Azithromycin (Azithromycin) 600 Mg Tab 1200 MG PO Q7D for Infection, #4 TAB Fluconazole (Diflucan) 100 Mg Tab 100 MG PO DAILY for Infection, #30 TAB Furosemide (Furosemide) 40 Mg Tab 40 MG PO DAILY for Cirrhosis, #30 TAB Lactobacillus Acidophilus (Acidophilus/l-Sporogenes) 35 Million Cell-25 Million Cell Tab 1 TAB PO Q12HR for Diarrhea, #14 TAB Propranolol (Propranolol) 10 Mg Tab 10 MG PO Q12HR for Blood Pressure Management, #60 TAB Spironolactone (Aldactone) 50 Mg Tab 50 MG PO DAILY for Blood Pressure Management, #30 TAB Sulfamethoxazole-Trimethoprim (Sulfamethoxazole-Trimethoprim) 800-160 Mg Tab 1 TAB PO MoWeFr@09 for Infection, #12 TAB [Nystatin Liq] () 5 ML SUSP 5 ML SWISH-SWAL QID, #28 AMPULE [Patient Own Medication] () 1 EA EA 0 EA PO DAILY [Patient Own Medication] () 1 EA EA 0 EA PO DAILY Continued Medications: Aspirin (Aspirin Low Strength) 81 Mg Chew 81 MG CHEW DAILY for Blood Clot Prevention, #30 EA Grant Coto MD Jul 04, 2017 16:54
--- NOTE | 2017-07-04 17:11 | RADRPT ---
EXAM DATE/TIME: 07/04/2017 16:43 [facility] COMPARISON: CT THORAX W CONTRAST, June 28, 2017, 8:55. CHEST SINGLE AP, June 24, 2017, 14:56. INDICATIONS : Pneumonia. MEDICAL HISTORY : Hypertension. Cirrhosis. SURGICAL HISTORY : None. ENCOUNTER: Subsequent ACUITY: 1 week PAIN SCORE: 2/10 LOCATION: Left chest FINDINGS: Left mid lung perihilar airspace disease demonstrates significant improvement. There is persistent mild fullness in the right hilum secondary to the patient's known adenopathy. There are no new pulmonary abnormalities. Heart and mediastinal structures are stable. CONCLUSION: Persistent but significantly improved left midlung airspace disease. Yaya Guzman MD on July 04, 2017 at 17:07 Board Certified Radiologist. This report was verified electronically.
== END 2017-07-04 18:22 | disposition home health service (06) | DRG 974 ==
LOC: NEPC 12:45 → NEDA 18:48 → N07A 21:40
PROVIDERS: ADMIT Hospitalist; ATTEND Hospitalist
PROC: BD41ZZZ Ultrasonography of Esophagus (ICD-10-PCS; 2017-06-28)
PROC: 0DJD8ZZ Inspection of Lower Intestinal Tract, Via Natural or Artificial Opening Endoscopic (ICD-10-PCS; 2017-06-28)
PROC: 0DJ08ZZ Inspection of Upper Intestinal Tract, Via Natural or Artificial Opening Endoscopic (ICD-10-PCS; principal; 2017-06-28 07:02)
DX: B20 Human immunodeficiency virus [HIV] disease (principal); A41.9 Sepsis, unspecified organism; E43 Unspecified severe protein-calorie malnutrition; K74.60 Unspecified cirrhosis of liver; E87.2 Acidosis; R18.8 Other ascites; K76.6 Portal hypertension; A04.72 Enterocolitis due to Clostridium difficile, not specified as recurrent; E83.51 Hypocalcemia; Z68.1 Body mass index [BMI] 19.9 or less, adult; R59.0 Localized enlarged lymph nodes; K29.80 Duodenitis without bleeding; K29.50 Unspecified chronic gastritis without bleeding; E87.6 Hypokalemia; K44.9 Diaphragmatic hernia without obstruction or gangrene; K22.2 Esophageal obstruction; R91.8 Other nonspecific abnormal finding of lung field; E11.9 Type 2 diabetes mellitus without complications; K21.0 Gastro-esophageal reflux disease with esophagitis; L29.9 Pruritus, unspecified; R19.00 Intra-abdominal and pelvic swelling, mass and lump, unspecified site; F10.10 Alcohol abuse, uncomplicated; F14.10 Cocaine abuse, uncomplicated; F32.9 Major depressive disorder, single episode, unspecified; Z86.73 Personal history of transient ischemic attack (TIA), and cerebral infarction without residual deficits; Z87.891 Personal history of nicotine dependence
CPT/HCPCS: 43259; 71010; 71260; 74177; 74230; 80048; 80053; 81001; 82550; 83605; 83690; 84155; 84484; 85007; 85025; 85027; 85610; 85730; 87015; 87040; 87116; 87206; 87493; 87556; 87798; 93005; 96361; 96365; 96366; 96368; 96375; C9113; J0610; J2270; J2370; J2405; J2543; J3480; J7030; Q9967

== ENCOUNTER 2017-08-07 16:42 | Emergency (ER) | payer MEDICARE, MEDICAID ==
[~2017-08-07] VITALS: Ht 162.6 cm; Wt 47.0 kg
[~2017-08-07 16:42] MED LIST changes: +ALDA50TA2 PO; -BACT800T5 PO; +DIFL100T PO; +FURO40TA PO; -METO25TA3 PO; +Nystatin Liq SWISH-SWAL; +PROP10TA6 PO; +Patient Own Medication PO; +SULF1TAB23 PO; +VANC1CAP6 PO; -VANC1CAP7 PO; -VANC250C2 PO
[2017-08-07 16:45] VITALS: BP 111/63; PULSE 101; RESP 20; TEMP 98.8; O2SAT 97
[2017-08-07] MEDS ORDERED: METO25TA3 PO (18:54)
[2017-08-07] MEDS ORDERED: FERR325T18 PO (18:54)
[2017-08-07] MEDS ORDERED: SODIUM CHLOR 0.9% 1000 ML INJ 1,000 ML IV ONE (19:38)
[2017-08-07] MEDS ORDERED: SODIUM CHLOR 0.9% 1000 ML INJ 800 ML IV ONE (19:38)
[2017-08-07] MEDS ORDERED: HYDROmorphone HCL PF 1 MG/ML VIAL IV PUSH ONE (19:45)
[2017-08-07] MEDS ORDERED: ONDANSETRON HCL 4 MG/2 ML VIAL IV PUSH ONE (19:45)
--- NOTE | 2017-08-07 19:57 | RADRPT ---
EXAM DATE/TIME: 08/07/2017 19:44 [facility] COMPARISON: CT THORAX W CONTRAST, June 28, 2017, 8:55. CHEST SINGLE AP, July 04, 2017, 16:43. INDICATIONS : Bilateral rib pain, denies injury MEDICAL HISTORY : HIV Hypertension. Cirrhosis SURGICAL HISTORY : None. ENCOUNTER: Initial ACUITY: 3 days PAIN SCORE: 10/10 LOCATION: Bilateral chest FINDINGS: Minimal displaced fractures are seen laterally of the right 10th and left ninth ribs these are age-in determinate, not clearly seen on the comparison and possibly acute. Vague perihilar opacity measuring 5 cm seen of the right lung. Lungs otherwise appear clear. No pleur al effusion. No pneumothorax. CONCLUSION: 1. Single, minimally displaced lower rib fractures on each side. 2. Right perihilar masslike opacity and appears larger than on the prior studies. Lungs otherwise mariajose ear clear. Nelson Collazo MD on August 07, 2017 at 19:52 Board Certified Radiologist. This report was verified electronically.
--- NOTE | 2017-08-07 20:06 | PD ---
HPI Chief Complaint: Abdominal Pain Time Seen by Provider: 19:20 Travel History International Travel<30 days: No Contact w/Intl Traveler<30days: No Traveled to known affect area: No History of Present Illness HPI 52-year-old female with history of AIDS, hypertension, chronic kidney disease, presents to emergency department for evaluation of abdominal pain, bilateral side pain, and back pain. Patient states she generally has myalgias and aches. She generally has diarrhea, but her pain has become increasingly worse over the last 2-3 days. She has felt febrile been chilled. Pain is an intermittent 10 out of 10 but at arresting a 6 out of 10. She denies any injury. She has no other symptoms to report. PFSH Past Medical History Hx Anticoagulant Therapy: No Arthritis: No Asthma: No Autoimmune Disease: Yes Blood Disorders: Yes Anxiety: No Depression: Yes Heart Rhythm Problems: No Cancer: No Cardiomyopathy: No Cardiovascular Problems: Yes High Cholesterol: No Chemotherapy: No Chest Pain: No Congestive Heart Failure: No Cirrhosis: Yes COPD: No Cerebrovascular Accident: Yes (2012) Diabetes: Yes Diminished Hearing: No Endocrine: No Gastrointestinal Disorders: Yes (CIRRHOSIS) GERD: No Genitourinary: No Headaches: Yes Hiatal Hernia: No Hypertension: Yes Immune Disorder: Yes (HIV) Implanted Vascular Access Dvce: No Kidney Stones: No Musculoskeletal: No Neurologic: Yes Psychiatric: No Reproductive: No Respiratory: No Migraines: Yes Radiation Therapy: No Renal Failure: No Seizures: Yes Sickle Cell Disease: No Sleep Apnea: No Thyroid Disease: No Ulcer: No ?: Not Menopausal: Yes : 2 Para: 0 Miscarriage: 1 : 1 Ectopic : Yes Ovarian Cysts: Yes Past Surgical History Abdominal Surgery: Yes (Expoloratory Lap) AICD: No Arteriovenous Shunt: No Cardiac Surgery: No Section: Yes Ear Surgery: No Endocrine Surgery: No Eye Surgery: No Genitourinary Surgery: No Gynecologic Surgery: Yes Hysterectomy: No Insulin Pump: No Joint Replacement: No Neurologic Surgery: No Oral Surgery: No Pacemaker: No Thoracic Surgery: No Other Surgery: Yes (, ectopic ) Social History Alcohol Use: Yes (4 DRINKS A DAY 3 TIMES A WEEK ) Tobacco Use: No (8 yrs ago) Substance Use: No Allergies-Medications (Allergen,Severity, Reaction): Coded Allergies: No Known Allergies (Verified Allergy, Unknown, 08/07/17) Reported Meds & Prescriptions Reported Meds & Active Scripts Active Keflex (Cephalexin) 500 Mg Cap 500 Mg PO Q12H 7 Days Furosemide 40 Mg Tab 40 Mg PO DAILY Aldactone (Spironolactone) 50 Mg Tab 50 Mg PO DAILY Propranolol (Propranolol HCl) 10 Mg Tab 10 Mg PO Q12HR Reported Ferrous Sulfate 325 Mg (65 Mg Iron) Tablet 325 Mg PO BIDPC Metoprolol Tartrate 25 Mg Tab 25 Mg PO BID Review of Systems Except as stated in HPI: all other systems reviewed are Neg Physical Exam Narrative GENERAL: Thin, chronically ill-appearing female patient, lying in bed, in mild distress secondary to pain. SKIN: Focused skin assessment warm/dry. HEAD: Atraumatic. Normocephalic. EYES: Pupils equal and round. No scleral icterus. No injection or drainage. ENT: No nasal bleeding or discharge. Mucous membranes pink and moist. NECK: Trachea midline. No JVD. CARDIOVASCULAR: Elevated rate and rhythm. No murmur appreciated. RESPIRATORY: No accessory muscle use. Managed auscultation. Patient reports significant pain with deep inspiration.. Breath sounds equal bilaterally. GASTROINTESTINAL: Abdomen soft, nondistended. Generalized tenderness to palpation, mild guarding. No rebound tenderness. MUSCULOSKELETAL: No obvious deformities. No clubbing. No cyanosis. No edema. NEUROLOGICAL: Awake and alert. No obvious cranial nerve deficits. Motor grossly within normal limits. Normal speech. Data Data Last Documented VS Vital Signs Date Time Temp Pulse Resp B/P (MAP) Pulse Ox O2 Delivery O2 Flow Rate FiO2 08/08/17 00:39 96 20 125/69 (87) 100 08/07/17 23:02 Room Air 08/07/17 16:45 98.8 Orders Orders Sepsis Workup Initiated (08/07/17 ) Electrocardiogram (08/07/17 19:38) Complete Blood Count With Diff (08/07/17 19:38) Comprehensive Metabolic Panel (08/07/17 19:38) Prothrombin Time / Inr (Pt) (08/07/17 19:38) Act Partial Throm Time (Ptt) (08/07/17 19:38) Lactic Acid Sepsis Protocol (08/07/17 19:38) Lipase (08/07/17 19:38) Urinalysis - C+S If Indicated (08/07/17 19:38) Influenzae A/B Antigen (08/07/17 19:38) Blood Culture (08/07/17 19:38) Chest, Single Ap (08/07/17 19:38) Blood Glucose (08/07/17 19:38) Ecg Monitoring (08/07/17 19:38) Iv Access Insert/Monitor (08/07/17 19:38) Oximetry (08/07/17 19:38) Oxygen Administration (08/07/17 19:38) Hydromorphone Pf Inj (Dilaudid Pf Inj) (08/07/17 19:45) Ct Abd/Pel W Iv Contrast(Rout) (08/07/17 19:38) Sodium Chlor 0.9% 1000 Ml Inj (Ns 1000 M (08/07/17 19:38) Sodium Chlor 0.9% 1000 Ml Inj (Ns 1000 M (08/07/17 19:38) Ct Cerv Spine W Iv Cont (08/07/17 ) Ct Lumb Spine W Iv Contrast (08/07/17 ) Ct Thor Spine W Iv Contrast (08/07/17 ) Ondansetron Inj (Zofran Inj) (08/07/17 19:45) Iohexol 350 Inj (Omnipaque 350 Inj) (08/07/17 22:26) Urine Culture (08/07/17 23:00) Zinc Oxide 40% Oint (Desitin 40% Oint) (08/07/17 23:15) Ceftriaxone Inj (Rocephin Inj) (08/07/17 23:15) Ed Discharge Order (08/07/17 23:55) Labs Laboratory Tests Test 08/07/17 19:30 08/07/17 20:00 08/07/17 23:00 White Blood Count 8.1 TH/MM3 Red Blood Count 3.25 MIL/MM3 Hemoglobin 10.1 GM/DL Hematocrit 29.9 % Mean Corpuscular Volume 92.2 FL Mean Corpuscular Hemoglobin 31.2 PG Mean Corpuscular Hemoglobin Concent 33.8 % Red Cell Distribution Width 15.3 % Platelet Count 105 TH/MM3 Mean Platelet Volume 9.9 FL Neutrophils (%) (Auto) 80.9 % Lymphocytes (%) (Auto) 9.9 % Monocytes (%) (Auto) 7.4 % Eosinophils (%) (Auto) 0.7 % Basophils (%) (Auto) 1.1 % Neutrophils # (Auto) 6.5 TH/MM3 Lymphocytes # (Auto) 0.8 TH/MM3 Monocytes # (Auto) 0.6 TH/MM3 Eosinophils # (Auto) 0.1 TH/MM3 Basophils # (Auto) 0.1 TH/MM3 CBC Comment DIFF FINAL Differential Comment Prothrombin Time 11.2 SEC Prothromb Time International Ratio 1.1 RATIO Activated Partial Thromboplast Time 24.2 SEC Blood Urea Nitrogen 25 MG/DL Creatinine 1.42 MG/DL Random Glucose 77 MG/DL Total Protein 11.9 GM/DL Albumin 2.6 GM/DL Calcium Level 8.5 MG/DL Alkaline Phosphatase 187 U/L Aspartate Amino Transf (AST/SGOT) 66 U/L Alanine Aminotransferase (ALT/SGPT) 44 U/L Total Bilirubin 0.6 MG/DL Sodium Level 130 MEQ/L Potassium Level 4.5 MEQ/L Chloride Level 101 MEQ/L Carbon Dioxide Level 21.6 MEQ/L Anion Gap 7 MEQ/L Estimat Glomerular Filtration Rate 47 ML/MIN Lipase 209 U/L Lactic Acid Level 1.5 mmol/L Urine Color YELLOW Urine Turbidity HAZY Urine pH 6.5 Urine Specific [place] 1.039 Urine Protein TRACE mg/dL Urine Glucose (UA) NEG mg/dL Urine Ketones NEG mg/dL Urine Occult Blood SMALL Urine Nitrite POS Urine Bilirubin NEG Urine Urobilinogen LESS THAN 2.0 MG/DL Urine Leukocyte Esterase LARGE Urine RBC 3 /hpf Urine WBC /hpf Urine Squamous Epithelial Cells 1 /hpf Urine Amorphous Sediment RARE Urine Bacteria MANY /hpf Urine Mucus MANY /lpf Microscopic Urinalysis Comment CATH-CULTURE IND MDM Medical Decision Making Medical Screen Exam Complete: Yes Emergency Medical Condition: Yes Medical Record Reviewed: Yes Differential Diagnosis Metastatic disease versus opportunistic infection versus viral syndrome versus pneumonia versus UTI Narrative Course 52-year-old female presents to emergency department for evaluation. Patient does have AIDS. She is reporting significant spinal pain, abdominal pain and side pain. She is relatively tender to touch everywhere. I discussed the patient my attending physician. We will move forward with CT the entire spine, abdomen, x-ray of the chest. Laboratory Tests Test 08/07/17 19:30 08/07/17 20:00 08/07/17 23:00 White Blood Count 8.1 TH/MM3 Red Blood Count 3.25 MIL/MM3 Hemoglobin 10.1 GM/DL Hematocrit 29.9 % Mean Corpuscular Volume 92.2 FL Mean Corpuscular Hemoglobin 31.2 PG Mean Corpuscular Hemoglobin Concent 33.8 % Red Cell Distribution Width 15.3 % Platelet Count 105 TH/MM3 Mean Platelet Volume 9.9 FL Neutrophils (%) (Auto) 80.9 % Lymphocytes (%) (Auto) 9.9 % Monocytes (%) (Auto) 7.4 % Eosinophils (%) (Auto) 0.7 % Basophils (%) (Auto) 1.1 % Neutrophils # (Auto) 6.5 TH/MM3 Lymphocytes # (Auto) 0.8 TH/MM3 Monocytes # (Auto) 0.6 TH/MM3 Eosinophils # (Auto) 0.1 TH/MM3 Basophils # (Auto) 0.1 TH/MM3 CBC Comment DIFF FINAL Differential Comment Prothrombin Time 11.2 SEC Prothromb Time International Ratio 1.1 RATIO Activated Partial Thromboplast Time 24.2 SEC Blood Urea Nitrogen 25 MG/DL Creatinine 1.42 MG/DL Random Glucose 77 MG/DL Total Protein 11.9 GM/DL Albumin 2.6 GM/DL Calcium Level 8.5 MG/DL Alkaline Phosphatase 187 U/L Aspartate Amino Transf (AST/SGOT) 66 U/L Alanine Aminotransferase (ALT/SGPT) 44 U/L Total Bilirubin 0.6 MG/DL Sodium Level 130 MEQ/L Potassium Level 4.5 MEQ/L Chloride Level 101 MEQ/L Carbon Dioxide Level 21.6 MEQ/L Anion Gap 7 MEQ/L Estimat Glomerular Filtration Rate 47 ML/MIN Lipase 209 U/L Lactic Acid Level 1.5 mmol/L Urine Color YELLOW Urine Turbidity HAZY Urine pH 6.5 Urine Specific [place] 1.039 Urine Protein TRACE mg/dL Urine Glucose (UA) NEG mg/dL Urine Ketones NEG mg/dL Urine Occult Blood SMALL Urine Nitrite POS Urine Bilirubin NEG Urine Urobilinogen LESS THAN 2.0 MG/DL Urine Leukocyte Esterase LARGE Urine RBC 3 /hpf Urine WBC /hpf Urine Squamous Epithelial Cells 1 /hpf Urine Amorphous Sediment RARE Urine Bacteria MANY /hpf Urine Mucus MANY /lpf Microscopic Urinalysis Comment CATH-CULTURE IND Last Impressions Chest X-Ray 08/07/171937 Signed Impressions: Service Date/Time: Monday, August 07, 2017 19:44 - CONCLUSION: 1. Single, minimally displaced lower rib fractures on each side. 2. Right perihilar masslike opacity and appears larger than on the prior studies. Lungs otherwise appear clear. Nelson Collazo MD Abdomen/Pelvis CT 08/07/17 1938 Signed Impressions: Service Date/Time: Monday, August 07, 2017 21:40 - CONCLUSION: 1. No obstruction or acute inflammatory changes are seen. 2. Portosystemic collaterals and I believe related to old portal vein thrombosis and subsequent recanalization. These findings are unchanged. Chronic liver disease not excludable. 3. The inguinal lymphadenopathy is not significantly changed. 4. Considerable stool throughout the colon. Nonobstructive pattern. Nelson Collazo MD Thoracic Spine CT 08/07/17 0000 Signed Impressions: Service Date/Time: Monday, August 07, 2017 21:45 - CONCLUSION: 1. No acute abnormality of the thoracic spine. 2. Minimal disc centered degenerative changes. 3. Right perihilar mass partly seen, larger. Please see above. 4. Mild streaky opacities of both lungs, most likely atelectasis. Nelson Collazo MD Lumbar Spine CT 08/07/17 0000 Signed Impressions: Service Date/Time: Monday, August 07, 2017 21:45 - CONCLUSION: Mild degenerative changes with associated mild right foraminal stenosis at L4/L5. Otherwise negative CT of the lumbar spine. Nelson Collazo MD Cervical Spine CT 08/07/17 0000 Signed Impressions: Service Date/Time: Monday, August 07, 2017 21:57 - CONCLUSION: CT of the cervical spine is within normal limits. Nelson Collazo MD The findings and discuss them with my attending physician. I have also discussed with patient. She'll be discharged home with prescription for UTI. I have encouraged follow-up the primary care provider and return immediately with any acute worsening symptoms. Diagnosis Primary Impression: UTI (urinary tract infection) Qualified Codes: N30.00 - Acute cystitis without hematuria Additional Impressions: Left rib fracture Qualified Codes: S22.32XA - Fracture of one rib, left side, initial encounter for closed fracture Right rib fracture Qualified Codes: S22.31XA - Fracture of one rib, right side, initial encounter for closed fracture AIDS (acquired immune deficiency syndrome) Referrals: Primary Care Physician Patient Instructions: General Instructions, Rib Fracture (ED), Urinary Tract Infection in Women (ED) Additional Instructions: Follow-up with a primary care provider; you will need the masslike area in your chest further evaluated Continue all medications are he prescribed Return immediately with any acute worsening of symptoms Med/Other Pt SpecificInfo: Prescription(s) given Scripts Cephalexin (Keflex) 500 Mg Cap 500 MG PO Q12H for Infection for 7 Days, #14 CAP 0 Refills Prov: Jaci Clark 08/08/17 Disposition: 01 DISCHARGE HOME Condition: Stable Jaci Clark Aug 07, 2017 20:06
[2017-08-07 20:23] VITALS: BP 112/62; PULSE 92; RESP 20; O2SAT 100
[2017-08-07 20:29] LABS: AUTOMATED NEUTROPHIL # 6.5 TH/MM3 (1.8-7.7); BASOPHIL # 0.1 TH/MM3 (0-0.2); BASOPHIL % 1.1 % (0.0-2.0); EOSINOPHIL # 0.1 TH/MM3 (0-0.4); EOSINOPHIL % 0.7 % (0.0-4.0); HEMATOCRIT 29.9 % (35.0-46.0); HEMOGLOBIN 10.1 GM/DL (11.6-15.3); LYMPH % 9.9 % (9.0-44.0); LYMPHOCYTE # 0.8 TH/MM3 (1.0-4.8); MEAN CELL VOLUME 92.2 FL (80.0-100.0); MEAN CORPUSCULAR HEMOGLOBIN 31.2 PG (27.0-34.0); MEAN CORPUSCULAR HGB CONC 33.8 % (32.0-36.0); MEAN PLATELET VOLUME 9.9 FL (7.0-11.0); MONO % 7.4 % (0.0-8.0); MONOCYTE # 0.6 TH/MM3 (0-0.9); NEUT % 80.9 % (16.0-70.0); PLATELET COUNT 105 TH/MM3 (150-450); RED BLOOD COUNT 3.25 MIL/MM3 (4.00-5.30); RED CELL DISTRIBUTION WIDTH 15.3 % (11.6-17.2); WHITE BLOOD COUNT 8.1 TH/MM3 (4.0-11.0)
[2017-08-07 20:44] LABS: INTERNATIONAL NORMALIZED RATIO 1.1 RATIO; PROTHROMBIN TIME - PATIENT 11.2 SEC (9.8-11.6)
[2017-08-07 20:57] LABS: ALKALINE PHOSPHATASE 187 U/L (45-117); ALT (GPT) 44 U/L (10-53); TOTAL BILIRUBIN ADULT 0.6 MG/DL (0.2-1.0); TOTAL PROTEIN 11.9 GM/DL (6.4-8.2)
[2017-08-07 21:00] LABS: ALBUMIN 2.6 GM/DL (3.4-5.0); AST (GOT) 66 U/L (15-37); BICARBONATE 21.6 MEQ/L (21.0-32.0); BLOOD UREA NITROGEN 25 MG/DL (7-18); CALCIUM 8.5 MG/DL (8.5-10.1); CHLORIDE 101 MEQ/L (98-107); CREATININE 1.42 MG/DL (0.50-1.00); GLOMERULAR FILTRATION RATE 47 ML/MIN (>89); GLUCOSE,RANDOM 77 MG/DL (74-106); LIPASE 209 U/L (73-393); SODIUM (NA) 130 MEQ/L (136-145)
[2017-08-07] MEDS ORDERED: IOHEXOL 350 MG/ML 10 ML VIAL (for RAD DIAG) IVCONTRAST ONE (22:26)
--- NOTE | 2017-08-07 22:31 | RADRPT ---
EXAM DATE/TIME: 08/07/2017 21:40 [facility] COMPARISON: CT ABDOMEN & PELVIS W CONTRAST, June 24, 2017, 17:41. INDICATIONS : Abdomen pain. IV CONTRAST: 100 cc Omnipaque 350 (iohexol) IV ; Cumulative dose for multiple exams. ORAL CONTRAST: No oral contrast ingested. RADIATION DOSE: 9.96 CTDIvol (mGy) ; Combined studies MEDICAL HISTORY : Cardiovascular disease. Hypertension. Diabetes mellitus type 2.HIV Corrhosis SURGICAL HISTORY : None. ENCOUNTER: Initial ACUITY: 1 day PAIN SCALE: 5/10 LOCATION: abdomen TECHNIQUE: Volumetric scanning of the abdomen and pelvis was performed. Using automated exposure control and ad justment of the mA and/or kV according to patient size, radiation dose was kept as low as reasonably achievable to obtain optimal diagnostic quality images. DICOM format image data is available electro nically for review and comparison. FINDINGS: Upper limits of normal spleen size again noted and there are portosystemic collaterals including a sp lenorenal shunt. 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 These findi ngs are unchanged. No focal hepatic lesion is demonstrated. The pancreas, adrenal glands and kidneys are within normal limits. Considerable stool throughout the colon. No focal inflammatory changes or caliber changes are demonst rated. There is bilateral inguinal lymphadenopathy measuring up to 2.2 x 2.8 cm in size. Similar findings we re seen previously. CONCLUSION: 1. No obstruction or acute inflammatory changes are seen. 2. Portosystemic collaterals and I believe related to old portal vein thrombosis and subsequent recan alization. These findings are unchanged. Chronic liver disease not excludable. 3. The inguinal lymphadenopathy is not significantly changed. 4. Considerable stool throughout the colon. Nonobstructive pattern. Nelson Collazo MD on August 07, 2017 at 22:25 Board Certified Radiologist. This report was verified electronically.
--- NOTE | 2017-08-07 22:36 | RADRPT ---
EXAM DATE/TIME: 08/07/2017 21:57 [facility] COMPARISON: No previous studies available for comparison. INDICATIONS : Neck pain. IV CONTRAST: 100 cc Omnipaque 350 (iohexol) IV ; Cumulative dose for multiple exams. RADIATION DOSE: 24.20 CTDIvol (mGy) MEDICAL HISTORY : Cardiovascular disease. Hypertension. Diabetes mellitus type 2.HIV Corrhosis SURGICAL HISTORY : None. ENCOUNTER: Initial ACUITY: 1 day PAIN SCALE: 5/10 LOCATION: cervical TECHNIQUE: Volumetric scanning of the cervical spine was performed. Multiplanar reconstructions in the sagittal , coronal and oblique axial planes were performed. Using automated exposure control and adjustment o f the mA and/or kV according to patient size, radiation dose was kept as low as reasonably achievable to obtain optimal diagnostic quality images. DICOM format image data is available electronically fo r review and comparison. FINDINGS: VERTEBRA: Normal vertebral body height. ALIGNMENT: No evidence of subluxation. C2-C3: The bony spinal canal is normal in size. No evidence of disc bulge or herniation. The neural forami na are bilaterally patent. C3-C4: The bony spinal canal is normal in size. No evidence of disc bulge or herniation. The neural forami na are bilaterally patent. C4-C5: The bony spinal canal is normal in size. No evidence of disc bulge or herniation. The neural forami na are bilaterally patent. C5-C6: The bony spinal canal is normal in size. No evidence of disc bulge or herniation. The neural forami na are bilaterally patent. C6-C7: The bony spinal canal is normal in size. No evidence of disc bulge or herniation. The neural forami na are bilaterally patent. C7-T1: The bony spinal canal is normal in size. No evidence of disc bulge or herniation. The neural forami na are bilaterally patent. CONCLUSION: CT of the cervical spine is within normal limits. Nelson Collazo MD on August 07, 2017 at 22:33 Board Certified Radiologist. This report was verified electronically.
--- NOTE | 2017-08-07 22:43 | RADRPT ---
EXAM DATE/TIME: 08/07/2017 21:45 [facility] COMPARISON: CT THORAX W CONTRAST, June 28, 2017, 8:55. INDICATIONS : Back Pain. IV CONTRAST: 100 cc Omnipaque 350 (iohexol) IV ; Cumulative dose for multiple exams. RADIATION DOSE: 9.96 CTDIvol (mGy) ; Combined studies MEDICAL HISTORY : Cardiovascular disease. Hypertension. Diabetes mellitus type 2.HIV Corrhosis SURGICAL HISTORY : None. ENCOUNTER: Initial ACUITY: 1 day PAIN SCALE: 5/10 LOCATION: thoracic TECHNIQUE: Volumetric scanning of the thoracic spine was performed. Multiplanar reconstructions in the sagittal , coronal and oblique axial planes were performed. Using automated exposure control and adjustment o f the mA and/or kV according to patient size, radiation dose was kept as low as reasonably achievable to obtain optimal diagnostic quality images. DICOM format image data is available electronically fo r review and comparison. FINDINGS: There is no fracture or subluxation of the thoracic spine. Vertebral bodies have normal height. Minimal disc space narrowing with mild anterior osseous bridging seen at essentially all levels. No s ignificant posterior vertebral or facet osteoarthritis seen. There is no evidence of foraminal or spi nal stenosis at any level. Paravertebral soft tissues are within normal limits. No abnormal enhancement demonstrated. Streaky parenchymal opacities are seen of both lung bases. There is an enhancing mass in the right pe rihilar region that measures at least 3.6 cm in size and appears larger than on the comparison chest CT. This may represent hilar lymphadenopathy although a central primary bronchogenic carcinoma could appear similar. CONCLUSION: 1. No acute abnormality of the thoracic spine. 2. Minimal disc centered degenerative changes. 3. Right perihilar mass partly seen, larger. Please see above. 4. Mild streaky opacities of both lungs, most likely atelectasis. Nelson Collazo MD on August 07, 2017 at 22:37 Board Certified Radiologist. This report was verified electronically.
--- NOTE | 2017-08-07 22:44 | RADRPT ---
EXAM DATE/TIME: 08/07/2017 21:45 [facility] COMPARISON: No previous studies available for comparison. INDICATIONS : Back pain. IV CONTRAST: 100 cc Omnipaque 350 (iohexol) IV ; Cumulative dose for multiple exams. RADIATION DOSE: ; Reconstructed from previous dataset, no dose MEDICAL HISTORY : Cardiovascular disease. Hypertension. Diabetes mellitus type 2.HIV Corrhosis SURGICAL HISTORY : None. ENCOUNTER: Initial ACUITY: 1 day PAIN SCALE: 5/10 LOCATION: lumbar TECHNIQUE: Volumetric scanning of the lumbar spine was performed. Multiplanar reconstructions in the sagittal, coronal and oblique axial planes were performed. Using automated exposure control and adjustment of the mA and/or kV according to patient size, radiation dose was kept as low as reasonably achievable t o obtain optimal diagnostic quality images. DICOM format image data is available electronically for review and comparison. FINDINGS: CONUS MEDULLARIS: Normal. PARASPINAL SOFT TISSUES: Normal. LUMBAR CORD: Normal. DURAL SAC: Normal. L1-L2: The disc, uncovertebral joints, central canal, foramina, and facets are normal. L2-L3: The disc, uncovertebral joints, central canal, foramina, and facets are normal. L3-L4: The disc, uncovertebral joints, central canal, foramina, and facets are normal. L5-S1: The disc, uncovertebral joints, central canal, foramina, and facets are normal. CONCLUSION: Mild degenerative changes with associated mild right foraminal stenosis at L4/L5. Otherwise negative CT of the lumbar spine. Nelson Collazo MD on August 07, 2017 at 22:40 Board Certified Radiologist. This report was verified electronically.
[2017-08-07 23:02] VITALS: BP 127/86; PULSE 95; RESP 20; O2SAT 100
[2017-08-07 23:09] VITALS: RESP 20
[2017-08-07 23:09] LABS: AMORPHOUS SEDIMENT, URINE RARE; BACTERIA, URINE MANY /hpf; BILIRUBIN, URINE NEG (NEG); BLOOD, URINE SMALL (NEG); GLUCOSE,URINE NEG (NEG); KETONE, URINE NEG (NEG); MUCUS URINE MANY /lpf (OCC); NITRITE,URINE POS (NEG); PH, URINE 6.5 (5.0-8.5); SQUAMOUS EPITHELIAL CELL URINE 1 /hpf (0-5); URINE COLOR YELLOW (YELLW/STRAW); URINE LEUKOCYTE ESTERASE LARGE (NEG)
[2017-08-07] MEDS ORDERED: cefTRIAXone INJ 1,000 MG in SODIUM CHLORIDE 0.9% INJ 100 ML IV ONE (23:15)
[2017-08-07] MEDS ORDERED: ZINC OXIDE 40% OINT 60 GM TUBE TOPICAL ONE (23:15)
[2017-08-08] MEDS ORDERED: CEPH-460 PO
[2017-08-08 00:39] VITALS: BP 125/69
--- NOTE | 2017-08-08 16:00 | EKG ---
Date Performed: 08/07/2017 Time Performed: 20:38:12 PTAGE: 52 years EKG: Sinus rhythm POSSIBLE LEFT ATRIAL ENLARGEMENT NONSPECIFIC T-WAVE ABNORMALITY Since previous tracing, no significa nt change noted BORDERLINE ECG PREVIOUS TRACING : 06/24/2017 14.56.27 DOCTOR: Shay Yan Interpretating Date/Time 08/08/2017 15:58:52
== END 2017-08-08 00:40 | disposition home or self-care (01) ==
LOC: NEPD 16:42
DX: N30.00 Acute cystitis without hematuria (principal); S22.32XA Fracture of one rib, left side, initial encounter for closed fracture; S22.31XA Fracture of one rib, right side, initial encounter for closed fracture; R94.31 Abnormal electrocardiogram [ECG] [EKG]; B96.20 Unspecified Escherichia coli [E. coli] as the cause of diseases classified elsewhere; B20 Human immunodeficiency virus [HIV] disease; I12.9 Hypertensive chronic kidney disease with stage 1 through stage 4 chronic kidney disease, or unspecified chronic kidney disease; M54.9 Dorsalgia, unspecified; E11.9 Type 2 diabetes mellitus without complications; Z72.89 Other problems related to lifestyle
CPT/HCPCS: 71045; 72126; 72129; 72132; 74177; 80053; 81001; 83605; 83690; 85025; 85610; 85730; 87040; 87077; 87086; 87186; 87804; 93005; 96361; 96365; 96375; 99285; J0696; J1170; J2405; J7030; Q9967

== ENCOUNTER 2017-08-16 14:48 | Inpatient (IN) | payer MEDICARE, MEDICAID ==
[~2017-08-16] VITALS: Ht 162.6 cm; Wt 46.8 kg
[~2017-08-16 14:48] MED LIST changes: -ASPI81CH25 CHEW; -AZIT600T PO; +CEPH-460 PO; -DIFL100T PO; +FERR325T18 PO; -LACT PO; +METO25TA3 PO; -Nystatin Liq SWISH-SWAL; -Patient Own Medication PO; -SULF1TAB23 PO; -VANC125C3 PO; -VANC1CAP6 PO
[2017-08-16 14:50] VITALS: BP 122/65; PULSE 95; RESP 13; TEMP 98.1; O2SAT 100
[2017-08-16 15:47] LABS: AUTOMATED NEUTROPHIL # 17.4 TH/MM3 (1.8-7.7); BASOPHIL % 0.1 % (0.0-2.0); EOSINOPHIL % 0.1 % (0.0-4.0); HEMATOCRIT 23.6 % (35.0-46.0); HEMOGLOBIN 7.9 GM/DL (11.6-15.3); LYMPH % 4.6 % (9.0-44.0); LYMPHOCYTE # 0.9 TH/MM3 (1.0-4.8); MEAN CELL VOLUME 92.5 FL (80.0-100.0); MEAN CORPUSCULAR HEMOGLOBIN 31.1 PG (27.0-34.0); MEAN CORPUSCULAR HGB CONC 33.6 % (32.0-36.0); MEAN PLATELET VOLUME 8.9 FL (7.0-11.0); MONO % 4.8 % (0.0-8.0); MONOCYTE # 0.9 TH/MM3 (0-0.9); NEUT % 90.4 % (16.0-70.0); PLATELET COUNT 129 TH/MM3 (150-450); RED BLOOD COUNT 2.55 MIL/MM3 (4.00-5.30); RED CELL DISTRIBUTION WIDTH 16.1 % (11.6-17.2); WHITE BLOOD COUNT 19.3 TH/MM3 (4.0-11.0)
[2017-08-16 15:55] LABS: INTERNATIONAL NORMALIZED RATIO 1.2 RATIO; PROTHROMBIN TIME - PATIENT 11.9 SEC (9.8-11.6)
[2017-08-16 16:08] LABS: ALKALINE PHOSPHATASE 131 U/L (45-117); TOTAL BILIRUBIN ADULT 0.4 MG/DL (0.2-1.0); TOTAL PROTEIN 9.3 GM/DL (6.4-8.2)
[2017-08-16 16:11] LABS: ALBUMIN 2.1 GM/DL (3.4-5.0); ALT (GPT) 67 U/L (10-53); AST (GOT) 69 U/L (15-37); BLOOD UREA NITROGEN 14 MG/DL (7-18); CALCIUM 7.9 MG/DL (8.5-10.1); CHLORIDE 108 MEQ/L (98-107); CREATININE 1.01 MG/DL (0.50-1.00); GLOMERULAR FILTRATION RATE 69 ML/MIN (>89); GLUCOSE,RANDOM 133 MG/DL (74-106); SODIUM (NA) 138 MEQ/L (136-145)
--- NOTE | 2017-08-16 16:16 | RADRPT ---
EXAM DATE/TIME: 08/16/2017 15:27 [facility] COMPARISON: CT PULMONARY ANGIOGRAM, February 06, 2017, 10:07. CHEST SINGLE AP, May 13, 017, 1:04. CHEST PA & LAT, February 05, 2017, 15:40. INDICATIONS : Chest pain at anterior chest on both sides. MEDICAL HISTORY : HIV Hypertension. Cirrhosis SURGICAL HISTORY : None. ENCOUNTER: Initial ACUITY: 1 day PAIN SCORE: 9/10 LOCATION: Bilateral chest FINDINGS: Ill-defined nearly masslike opacity in the right perihilar region. Cardiomediastinal contours are wit hin normal limits. Bony thorax is intact. CONCLUSION: Ill-defined right perihilar masslike opacity which may reflect developing perihilar airspace disease/ atypical infection versus hilar adenopathy. Pako Easton MD on August 16, 2017 at 16:10 Board Certified Radiologist. This report was verified electronically.
--- NOTE | 2017-08-16 19:17 | PD ---
HPI Chief Complaint: GI Complaint Time Seen by Provider: 19:13 Travel History International Travel<30 days: No Contact w/Intl Traveler<30days: No Traveled to known affect area: No History of Present Illness HPI The patient is a 52 year old female who presents to the [facility] emergency department with a history of diarrhea that began last night. She has had diarrhea x8 since the onset. She has some blood mixed with the stool. She had a home health nurse come out today that told her to go to the ER for the diarrhea as it could be c. diff. She is on Keflex currently for a UTI diagnosed in the ED recently. She is immunocompromise related to HIV. She cannot recall when she last had a CD4 count done. She is not currently on retroviral medications as she is currently out of the prescription. She has had vomiting x4. She has abdominal pain all across her abdomen that began a week ago. The pain is worse with sitting up. It is sharp in character. On review of systems otherwise, she denies having any recent fevers, worsening cough or congestion, neck pain, shortness of breath, urinary symptoms, or neurologic symptoms. The patient reports that she was recently diagnosed with a lung mass that is in the process of being worked up. She also reports that she was recently diagnosed with rib fractures and has bilateral posterior chest wall pain. [facility] Past Medical History Narrative Medical The patient's past medical history is significant for HIV, cirrhosis, hypertension, acid reflux, history of a gastric mass, prior history of being diagnosed with C. difficile colitis in April 2017, history of gastritis. Hx Anticoagulant Therapy: No Arthritis: No Asthma: No Autoimmune Disease: Yes Blood Disorders: Yes Anxiety: No Depression: Yes Heart Rhythm Problems: No Cancer: No Cardiomyopathy: No Cardiovascular Problems: Yes High Cholesterol: No Chemotherapy: No Chest Pain: No Congestive Heart Failure: No Cirrhosis: Yes COPD: No Cerebrovascular Accident: Yes (2012) Diabetes: Yes Diminished Hearing: No Endocrine: No Gastrointestinal Disorders: Yes (CIRRHOSIS) GERD: No Genitourinary: No Headaches: Yes Hiatal Hernia: No Hypertension: Yes Immune Disorder: Yes (HIV) Implanted Vascular Access Dvce: No Kidney Stones: No Musculoskeletal: No Neurologic: Yes Psychiatric: No Reproductive: No Respiratory: No Migraines: Yes Radiation Therapy: No Renal Failure: No Seizures: Yes Sickle Cell Disease: No Sleep Apnea: No Thyroid Disease: No Ulcer: No Menopausal: Yes : 2 Para: 0 Miscarriage: 1 : 1 Ectopic : Yes Ovarian Cysts: Yes Past Surgical History Narrative Surgical The patient's past surgical history is significant for exploratory laparotomy, history of , endoscopy with dilatation and biopsies in May 2017. Abdominal Surgery: Yes (Expoloratory Lap) AICD: No Arteriovenous Shunt: No Cardiac Surgery: No Section: Yes Ear Surgery: No Endocrine Surgery: No Eye Surgery: No Genitourinary Surgery: No Gynecologic Surgery: Yes Hysterectomy: No Insulin Pump: No Joint Replacement: No Neurologic Surgery: No Oral Surgery: No Pacemaker: No Thoracic Surgery: No Other Surgery: Yes (, ectopic ) Social History Alcohol Use: Yes (4 DRINKS A DAY 3 TIMES A WEEK ) Tobacco Use: No (8 yrs ago) Substance Use: No Allergies-Medications (Allergen,Severity, Reaction): Coded Allergies: No Known Allergies (Verified Allergy, Unknown, 08/07/17) Reported Meds & Prescriptions Reported Meds & Active Scripts Active Keflex (Cephalexin) 500 Mg Cap 500 Mg PO Q12H 7 Days Furosemide 40 Mg Tab 40 Mg PO DAILY Aldactone (Spironolactone) 50 Mg Tab 50 Mg PO DAILY Propranolol (Propranolol HCl) 10 Mg Tab 10 Mg PO Q12HR Reported Ferrous Sulfate 325 Mg (65 Mg Iron) Tablet 325 Mg PO BIDPC Metoprolol Tartrate 25 Mg Tab 25 Mg PO BID Review of Systems Except as stated in HPI: all other systems reviewed are Neg General / Constitutional: No: Fever Eyes: No: Visual changes HENT: No: Headaches Cardiovascular: No: Chest Pain or Discomfort Respiratory: Positive: Cough, No: Shortness of Breath Gastrointestinal: Positive: Nausea, Vomiting, Diarrhea, Abdominal Pain, Changes in Bowel Habits Genitourinary: No: Dysuria Musculoskeletal: No: Pain Skin: No Rash Neurologic: No: Weakness Psychiatric: No: Depression Endocrine: No: Polydipsia Hematologic/Lymphatic: No: Easy Bruising Physical Exam Narrative General: The patient is a well-developed, cachectic appearing female in no acute distress. Head and Neck exam: Head is normocephalic atraumatic. Eyes: EOMI, pupils are equal round and reactive to light. Nose: Midline septum with pink mucous membranes Mouth: Dentition unremarkable. Moist mucus membranes. Posterior oropharynx is not erythematous. No tonsillar hypertrophy. Uvula midline. Airway patent. Neck: No palpable lymphadenopathy. No nuchal rigidity. No thyromegaly. Cardiovascular: Regular rate and rhythm without murmurs, gallops, or rubs. Lungs: Clear to auscultation bilaterally. No wheezes, rhonchi, or rales. Abdomen: Soft, with tenderness reported on palpation in all 4 quadrants of the abdomen. No guarding, rebound, or rigidity. Normal bowel sounds are audible. No point tenderness specifically on palpation over McBurney's point. Negative Ferro's sign. Extremities: No clubbing, cyanosis, or edema. 2+ pulses in all 4 extremities. No calf tenderness. Back: No spinous process tenderness to palpation. Reported bilateral CVA tenderness on palpation. Neurologic Exam: Grossly nonfocal. Skin Exam: No rash noted. Intact skin that is warm and dry. RECTAL EXAM: No masses or tenderness, stool is present in the rectal vault. Hemoccult negative mucus. Data Data Last Documented VS Vital Signs Date Time Temp Pulse Resp B/P (MAP) Pulse Ox O2 Delivery O2 Flow Rate FiO2 08/16/17 14:50 98.1 95 13 122/65 (84) 100 Orders Orders Chest, Pa & Lat (08/16/17 ) Complete Blood Count With Diff (08/16/17 14:57) Comprehensive Metabolic Panel (08/16/17 14:57) Act Partial Throm Time (Ptt) (08/16/17 14:57) Prothrombin Time / Inr (Pt) (08/16/17 14:57) Urinalysis - C+S If Indicated (08/16/17 14:57) Enteric Path (Stool) (08/16/17 19:20) C Diff Toxin Pcr (08/16/17 19:20) Stool Wbc (Leukocytes) (08/16/17 19:20) Sodium Chlorid 0.9% 500 Ml Inj (Ns 500 M (08/16/17 20:00) Morphine Inj (Morphine Inj) (08/16/17 20:00) Ondansetron Inj (Zofran Inj) (08/16/17 20:00) Blood Culture (08/16/17 19:52) Lactic Acid Sepsis Protocol (08/16/17 19:52) Piperacil-Tazo 3.375 Gm Premix (Zosyn 3. (08/16/17 20:00) Vancomycin Inj (Vancomycin Inj) (08/16/17 20:00) Type And Screen (08/16/17 20:49) Red Blood Cells (Rbc) (08/16/17 20:49) Blood Product Administration (08/16/17 20:49) Sodium Chlor 0.9% 250 Ml Inj (Ns 250 Ml (08/16/17 21:00) Admit Order (Ed Use Only) (08/16/17 20:50) Metronidazole 500 Mg Inj (Flagyl 500 Mg (08/16/17 21:15) Labs Laboratory Tests Test 08/16/17 15:10 08/16/17 19:50 08/16/17 20:15 White Blood Count 19.3 TH/MM3 Red Blood Count 2.55 MIL/MM3 Hemoglobin 7.9 GM/DL Hematocrit 23.6 % Mean Corpuscular Volume 92.5 FL Mean Corpuscular Hemoglobin 31.1 PG Mean Corpuscular Hemoglobin Concent 33.6 % Red Cell Distribution Width 16.1 % Platelet Count 129 TH/MM3 Mean Platelet Volume 8.9 FL Neutrophils (%) (Auto) 90.4 % Lymphocytes (%) (Auto) 4.6 % Monocytes (%) (Auto) 4.8 % Eosinophils (%) (Auto) 0.1 % Basophils (%) (Auto) 0.1 % Neutrophils # (Auto) 17.4 TH/MM3 Lymphocytes # (Auto) 0.9 TH/MM3 Monocytes # (Auto) 0.9 TH/MM3 Eosinophils # (Auto) 0.0 TH/MM3 Basophils # (Auto) 0.0 TH/MM3 CBC Comment DIFF FINAL Differential Comment Prothrombin Time 11.9 SEC Prothromb Time International Ratio 1.2 RATIO Activated Partial Thromboplast Time 28.0 SEC Blood Urea Nitrogen 14 MG/DL Creatinine 1.01 MG/DL Random Glucose 133 MG/DL Total Protein 9.3 GM/DL Albumin 2.1 GM/DL Calcium Level 7.9 MG/DL Alkaline Phosphatase 131 U/L Aspartate Amino Transf (AST/SGOT) 69 U/L Alanine Aminotransferase (ALT/SGPT) 67 U/L Total Bilirubin 0.4 MG/DL Sodium Level 138 MEQ/L Potassium Level 3.7 MEQ/L Chloride Level 108 MEQ/L Carbon Dioxide Level 22.0 MEQ/L Anion Gap 8 MEQ/L Estimat Glomerular Filtration Rate 69 ML/MIN Urine Color YELLOW Urine Turbidity CLEAR Urine pH 5.5 Urine Specific Hawkins 1.016 Urine Protein 30 mg/dL Urine Glucose (UA) NEG mg/dL Urine Ketones NEG mg/dL Urine Occult Blood NEG Urine Nitrite NEG Urine Bilirubin NEG Urine Urobilinogen LESS THAN 2.0 MG/DL Urine Leukocyte Esterase TRACE Urine RBC 1 /hpf Urine WBC 2 /hpf Urine Squamous Epithelial Cells 1 /hpf Urine Amorphous Sediment RARE Urine Hyaline Casts 9 /lpf Urine Mucus FEW /lpf Microscopic Urinalysis Comment CULT NOT INDICATED Lactic Acid Level 2.3 mmol/L MDM Medical Decision Making Medical Screen Exam Complete: Yes Emergency Medical Condition: Yes Medical Record Reviewed: Yes Interpretation(s) Last Impressions Chest X-Ray 08/16/17 0000 Signed Impressions: Service Date/Time: Wednesday, August 16, 2017 15:27 - CONCLUSION: Ill-defined right perihilar masslike opacity which may reflect developing perihilar airspace disease/atypical infection versus hilar adenopathy. Pako Easton MD Differential Diagnosis Recurrent C. difficile colitis, versus gastroenteritis, versus failure of outpatient management of urinary tract infection, versus pneumonia, versus sepsis of undetermined origin Narrative Course During the course of the patients emergency department visit, the patients history, examination, and differential diagnosis were reviewed with the patient. The patient was placed on a bran mixer with oximetry and frequent blood pressure monitoring. The patient had IV access obtained and blood work sent for analysis. The patient's electronic medical record was reviewed. The patient was seen in the emergency department and had a full battery of testing done on August 07, 2017. Time she was started on Keflex for urinary tract infection. The culture was positive for Escherichia coli which was sensitive to cephalosporins. Stool studies including C. difficile toxin have been ordered. The patient was initially provided normal saline IV fluids, morphine for pain, Zofran for nausea. The patients laboratory studies were reviewed and remarkable for a white count of 19.3 which is compared to previous white count of 8.1, hemoglobin is currently 7.9 which was previously 10.1, platelets 129, neutrophils 90.4., CMP is remarkable for a chloride of 108, creatinine 1.01, glucose 133, calcium 7.9, AST 69, ALT 67, alkaline phosphatase 131, albumin 2.1, PT 11.9, PTT 28, given the patient's elevated white blood cell count lactic acid will be sent, blood cultures 2 will be sent. The patient will be started on broad-spectrum antibiotic coverage. Lactic acid was noted to be 2.3. Radiology studies were reviewed and remarkable for a chest x-ray that shows an ill-defined right perihilar masslike opacity which may reflect developing perihilar airspace disease/atypical infection versus hilar adenopathy. The patient will be admitted to the hospital for continued evaluation and treatment of leukocytosis with diarrhea suspicious for C. difficile colitis. The patient was started on Flagyl 500 mg IV. As the patient is noted to be anemic compared to previously with a hemoglobin is noted to be 10 on last laboratory studies earlier in the month, the patient was typed and crossmatched for 2 units of packed red blood cells. The patient will have 1 unit of packed red blood cells administered. A rectal examination was done, however no stool was present in the rectal vault. The mucous was Hemoccult negative. The patient was started on Protonix as a bolus and a drip given her history of gastritis as a possible source of GI bleeding. The patients results were discussed with the patient, including the plan of care. I explained that further testing and/ or monitoring is indicated based on the patients history, examination, and/ or laboratory findings. Therefore, I recommended admission for additional evaluation. The patient expressed understanding and was agreeable with this plan. The patient was admitted to the hospital in guarded condition and [facility] Critical Care Narrative Aggregate critical care time was 31 minutes. Time to perform other separately billable procedures was not included in the critical care time. My time did not include minutes spent treating any other patients simultaneously or on activities that did not directly contribute to the patient's treatment. The services I provided to this patient were to treat and/or prevent clinically significant deterioration that could result in: Cardiovascular collapse related to sepsis, versus hemorrhagic shock, versus respiratory failure from fluid overload from crystalloid resuscitation I provided critical care services requiring my management, as noted below: Chart data review, documentation time, medication orders and management, vital sign assessments/reviewing monitor data, ordering and reviewing lab tests, ordering and interpreting/reviewing x-rays and diagnostic studies, care of the patient and discussion of the patient with the admitting physicians. Sepsis Criteria SIRS Criteria (2 or more): Heart rate over 90, WBC > 98342, < 4000 or > 10% bands Sepsis Criteria (SIRS+source): Infect source susp/known Physician Communication Physician Communication The patient's case including history, pertinent physical examination findings, and laboratory studies were discussed with Dr. Gannon. It was agreed that the [facility] Diagnosis Primary Impression: Abdominal pain Qualified Codes: R10.84 - Generalized abdominal pain Additional Impressions: Leukocytosis Qualified Codes: D72.829 - Elevated white blood cell count, unspecified Bloody diarrhea Sepsis Qualified Codes: A41.9 - Sepsis, unspecified organism Admitting Information Admitting Physician Requests: Admit Betty Johnson MD Aug 16, 2017 19:17
[2017-08-16 19:30] VITALS: BP 130/69; PULSE 87; RESP 16; O2SAT 97
[2017-08-16] MEDS ORDERED: MORPHINE SULFATE 2 MG/ML INJ IV PUSH ONE (20:00)
[2017-08-16] MEDS ORDERED: PIPERACIL-TAZO 3.375 GM PREMIX 50 ML IV ONE (20:00)
[2017-08-16] MEDS ORDERED: VANCOMYCIN 1 GM/200 ML INJ 200 ML IV SCH (20:00)
[2017-08-16] MEDS ORDERED: ONDANSETRON HCL 4 MG/2 ML VIAL IV PUSH ONE (20:00)
[2017-08-16] MEDS ORDERED: SODIUM CHLORID 0.9% 500 ML INJ 500 ML IV ONE (20:00)
[2017-08-16 20:48] LABS: AMORPHOUS SEDIMENT, URINE RARE; BILIRUBIN, URINE NEG (NEG); BLOOD, URINE NEG (NEG); GLUCOSE,URINE NEG (NEG); HYALINE CAST, URINE 9 /lpf (RARE); KETONE, URINE NEG (NEG); MUCUS URINE FEW /lpf (OCC); NITRITE,URINE NEG (NEG); PH, URINE 5.5 (5.0-8.5); SQUAMOUS EPITHELIAL CELL URINE 1 /hpf (0-5); URINE COLOR YELLOW (YELLW/STRAW); URINE LEUKOCYTE ESTERASE TRACE (NEG)
[2017-08-16] MEDS ORDERED: SODIUM CHLOR 0.9% 250 ML INJ 250 ML IV ONE (21:00)
[2017-08-16 21:06] LABS: LACTIC ACID SEPSIS PROTOCOL 2.3 mmol/L (0.4-2.0)
[2017-08-16] MEDS ORDERED: metroNIDAZOLE 500 MG INJ 100 ML IV ONE (21:15)
[2017-08-16 21:30] VITALS: BP 111/65; PULSE 95; RESP 16; O2SAT 96
[2017-08-16] MEDS ORDERED: ACETAMINOPHEN 325 MG TAB PO PRN (21:30)
[2017-08-16] MEDS ORDERED: GLUCAGON 1 MG/ML VIAL OTHER PRN (21:30)
[2017-08-16] MEDS ORDERED: NALOXONE HCL 0.4 MG/ML AMP IV PUSH PRN (21:30)
[2017-08-16] MEDS ORDERED: DEXTROSE 50% IN WATER 50 ML VIAL(D50) IV PUSH PRN (21:30)
[2017-08-16] MEDS ORDERED: ONDANSETRON HCL 4 MG/2 ML VIAL IVP PRN (21:30)
[2017-08-16] MEDS ORDERED: HEPARIN SODIUM - SQ 10,000 UNITS/ML VIAL SQ SCH (21:30)
[2017-08-16] MEDS ORDERED: PANTOPRAZOLE INJ 80 MG in SODIUM CHLORIDE 0.9% INJ 100 ML IV SCH (22:07)
[2017-08-16] MEDS ORDERED: PANTOPRAZOLE INJ 80 MG in SODIUM CHLORIDE 0.9% INJ 35 ML IV ONE (22:07)
[2017-08-16 22:32] VITALS: BP 121/63; PULSE 94; RESP 18; TEMP 97.8; O2SAT 100
[2017-08-16] MEDS ORDERED: VANCOMYCIN 1 GM/200 ML INJ 200 ML IV ONE (22:45)
[2017-08-17] VITALS (12 sets, daily range): BP systolic 98–110; BP diastolic 53–63; PULSE 83–107; RESP 16–18; TEMP 97.5–100; O2SAT 97–100
[2017-08-17] MEDS: MORPHINE SULFATE 2 MG/ML INJ IV PUSH PRN ×3 (01:28→20:58)
[2017-08-17 02:21] LABS: AUTOMATED NEUTROPHIL # 14.6 TH/MM3 (1.8-7.7); BASOPHIL % 0.2 % (0.0-2.0); EOSINOPHIL # 0.1 TH/MM3 (0-0.4); EOSINOPHIL % 0.4 % (0.0-4.0); LYMPH % 2.2 % (9.0-44.0); LYMPHOCYTE # 0.3 TH/MM3 (1.0-4.8); MEAN CELL VOLUME 91.5 FL (80.0-100.0); MEAN CORPUSCULAR HEMOGLOBIN 31.4 PG (27.0-34.0); MEAN CORPUSCULAR HGB CONC 34.3 % (32.0-36.0); MEAN PLATELET VOLUME 8.7 FL (7.0-11.0); MONO % 2.2 % (0.0-8.0); MONOCYTE # 0.3 TH/MM3 (0-0.9); PLATELET COUNT 107 TH/MM3 (150-450); RED BLOOD COUNT 2.21 MIL/MM3 (4.00-5.30); WHITE BLOOD COUNT 15.4 TH/MM3 (4.0-11.0)
[2017-08-17 02:33] LABS: HEMATOCRIT 20.2 % (35.0-46.0); HEMOGLOBIN 6.9 GM/DL (11.6-15.3)
[2017-08-17 02:50] LABS: ALBUMIN 1.9 GM/DL (3.4-5.0); ALT (GPT) 54 U/L (10-53); AST (GOT) 51 U/L (15-37); BICARBONATE 21.7 MEQ/L (21.0-32.0); BLOOD UREA NITROGEN 13 MG/DL (7-18); CALCIUM 7.5 MG/DL (8.5-10.1); CHLORIDE 113 MEQ/L (98-107); CREATININE 0.79 MG/DL (0.50-1.00); GLOMERULAR FILTRATION RATE 92 ML/MIN (>89); GLUCOSE,RANDOM 96 MG/DL (74-106); SODIUM (NA) 141 MEQ/L (136-145)
[2017-08-17 02:53] LABS: ALKALINE PHOSPHATASE 114 U/L (45-117); TOTAL BILIRUBIN ADULT 0.5 MG/DL (0.2-1.0); TOTAL PROTEIN 8.2 GM/DL (6.4-8.2)
[2017-08-17 03:30] LABS: BANDS 18 % (0-6); LYMPHOCYTES 2 % (9-44); METAMYELOCYTES 1 % (0-1); MONOCYTES 1 % (0-8); NEUTROPHIL # MANUAL DIFF 14.9 TH/MM3 (1.8-7.7); POLYS (SEG NEUTROPHILS) 78 % (16-70)
[2017-08-17 03:33] LABS: OVALOCYTES 1+ (NORMAL)
--- NOTE | 2017-08-17 04:36 | HHI.HP ---
[facility] Primary Care Physician Jeremiah Garcia MD Admission Diagnosis Diarrhea, leukocytosis, r/o c. diff Diagnoses: Travel History International Travel<30 Days: No Contact w/Intl Traveler <30 Da: No Traveled to Known Affected Are: No History of Present Illness 52-year-old female with a past medical history significant for HIV (CD4 count less than 20 on 03/29/17), cirrhosis with gastric mass, history of resistant C. difficile colitis and recent treatment with Keflex for urinary tract infection presents to the emergency department for the evaluation of diarrhea. The patient reports the diarrhea began last night and she has had approximately 8 episodes of loose stools. She was told by her home health nurse that she should report to the emergency department for evaluation of her diarrhea as it could be C. difficile. 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 She endorses subjective chills with accompanying fatigue/weakness and shortness of breath. The patient is not currently on antiretroviral medication as she ran out of it last . Does not know when her last CD4 count was done. In the emergency department, the patient was found to have a leukocytosis of 19.3 and was severely anemic at 7.9/23.6 (H&H 10.1/29.9 on 08/07/17). Chest x- ray with hilar adenopathy versus atypical infection, appears unchanged from previous. Vital signs: Temperature 98.1, pulse 95, respirations 13, BP 122/65, pulse ox 100% on room air. Review of Systems Positive subjective chills Denies blurry vision, otorrhea, rhinorrhea Denies sore throat and cough No chest pain, palpitations No shortness of breath or wheezing No abdominal pain Denies constipation/diarrhea/nausea/vomiting Denies muscle pain Denies focal weakness No rashes Past Family Social History Past Medical History HIV Past Surgical History Ectopic Reported Medications Reported Meds & Active Scripts Active Keflex (Cephalexin) 500 Mg Cap 500 Mg PO Q12H 7 Days Furosemide 40 Mg Tab 40 Mg PO DAILY Aldactone (Spironolactone) 50 Mg Tab 50 Mg PO DAILY Propranolol (Propranolol HCl) 10 Mg Tab 10 Mg PO Q12HR Reported Ferrous Sulfate 325 Mg (65 Mg Iron) Tablet 325 Mg PO BIDPC Metoprolol Tartrate 25 Mg Tab 25 Mg PO BID Allergies: Coded Allergies: No Known Allergies (Verified Allergy, Unknown, 08/07/17) Physical Exam Vital Signs Vital Signs Date Time Temp Pulse Resp B/P (MAP) Pulse Ox O2 Delivery O2 Flow Rate FiO2 08/17/17 03:36 97.5 107 16 98/54 97 08/17/17 01:22 98.4 104 18 104/56 (72) 100 08/16/17 22:32 97.8 94 18 121/63 (82) 100 08/16/17 22:15 08/16/17 21:30 95 16 111/65 (80) 96 Room Air 08/16/17 19:30 87 16 130/69 (89) 97 Room Air 08/16/17 14:50 98.1 95 13 122/65 (84) 100 Physical Exam GENERAL: This is a well-nourished, well-developed patient, in no apparent distress. SKIN: No rashes, ecchymoses or lesions. Cool and dry. HEAD: Atraumatic. Normocephalic. No temporal or scalp tenderness. EYES: Pupils equal round and reactive. Extraocular motions intact. No scleral icterus. No injection or drainage. ENT: Nose without bleeding, purulent drainage or septal hematoma. Throat without erythema, tonsillar hypertrophy or exudate. Uvula midline. Airway patent. NECK: Trachea midline. No JVD or lymphadenopathy. Supple, nontender, no meningeal signs. CARDIOVASCULAR: Regular rate and rhythm without murmurs, gallops, or rubs. RESPIRATORY: Clear to auscultation. Breath sounds equal bilaterally. No wheezes , rales, or rhonchi. GASTROINTESTINAL: Abdomen soft, non-tender, nondistended. No hepato-splenomegaly , or palpable masses. No guarding. MUSCULOSKELETAL: Extremities without clubbing, cyanosis, or edema. No joint tenderness, effusion, or edema noted. No calf tenderness. Negative Homans sign bilaterally. NEUROLOGICAL: Awake and alert. Cranial nerves II through XII intact. Motor and sensory grossly within normal limits. Five out of 5 muscle strength in all muscle groups. Normal speech. Laboratory Laboratory Tests Test 08/16/17 15:10 08/16/17 19:50 08/16/17 20:15 08/16/17 23:30 White Blood Count 19.3 Red Blood Count 2.55 Hemoglobin 7.9 Hematocrit 23.6 Mean Corpuscular Volume 92.5 Mean Corpuscular Hemoglobin 31.1 Mean Corpuscular Hemoglobin Concent 33.6 Red Cell Distribution Width 16.1 Platelet Count 129 Mean Platelet Volume 8.9 Neutrophils (%) (Auto) 90.4 Lymphocytes (%) (Auto) 4.6 Monocytes (%) (Auto) 4.8 Eosinophils (%) (Auto) 0.1 Basophils (%) (Auto) 0.1 Neutrophils # (Auto) 17.4 Lymphocytes # (Auto) 0.9 Monocytes # (Auto) 0.9 Eosinophils # (Auto) 0.0 Basophils # (Auto) 0.0 CBC Comment DIFF FINAL Differential Comment Prothrombin Time 11.9 Prothromb Time International Ratio 1.2 Activated Partial Thromboplast Time 28.0 Blood Urea Nitrogen 14 Creatinine 1.01 Random Glucose 133 Total Protein 9.3 Albumin 2.1 Calcium Level 7.9 Alkaline Phosphatase 131 Aspartate Amino Transf (AST/SGOT) 69 Alanine Aminotransferase (ALT/SGPT) 67 Total Bilirubin 0.4 Sodium Level 138 Potassium Level 3.7 Chloride Level 108 Carbon Dioxide Level 22.0 Anion Gap 8 Estimat Glomerular Filtration Rate 69 Urine Color YELLOW Urine Turbidity CLEAR Urine pH 5.5 Urine Specific [place] 1.016 Urine Protein 30 Urine Glucose (UA) NEG Urine Ketones NEG Urine Occult Blood NEG Urine Nitrite NEG Urine Bilirubin NEG Urine Urobilinogen LESS THAN 2.0 Urine Leukocyte Esterase TRACE Urine RBC 1 Urine WBC 2 Urine Squamous Epithelial Cells 1 Urine Amorphous Sediment RARE Urine Hyaline Casts 9 Urine Mucus FEW Microscopic Urinalysis Comment CULT NOT INDICATED Lactic Acid Level 2.3 Test 08/17/17 01:47 White Blood Count 15.4 Red Blood Count 2.21 Hemoglobin 6.9 Hematocrit 20.2 Mean Corpuscular Volume 91.5 Mean Corpuscular Hemoglobin 31.4 Mean Corpuscular Hemoglobin Concent 34.3 Red Cell Distribution Width 16.0 Platelet Count 107 Mean Platelet Volume 8.7 Neutrophils (%) (Auto) 95.0 Lymphocytes (%) (Auto) 2.2 Monocytes (%) (Auto) 2.2 Eosinophils (%) (Auto) 0.4 Basophils (%) (Auto) 0.2 Neutrophils # (Auto) 14.6 Lymphocytes # (Auto) 0.3 Monocytes # (Auto) 0.3 Eosinophils # (Auto) 0.1 Basophils # (Auto) 0.0 CBC Comment AUTO DIFF Differential Total Cells Counted 100 Neutrophils % (Manual) 78 Band Neutrophils % 18 Lymphocytes % 2 Monocytes % 1 Neutrophils # (Manual) 14.9 Metamyelocytes 1 Differential Comment FINAL DIFF MANUAL Platelet Estimate LOW Platelet Morphology Comment NORMAL Ovalocytes 1+ Blood Urea Nitrogen 13 Creatinine 0.79 Random Glucose 96 Total Protein 8.2 Albumin 1.9 Calcium Level 7.5 Alkaline Phosphatase 114 Aspartate Amino Transf (AST/SGOT) 51 Alanine Aminotransferase (ALT/SGPT) 54 Total Bilirubin 0.5 Sodium Level 141 Potassium Level 3.5 Chloride Level 113 Carbon Dioxide Level 21.7 Anion Gap 6 Estimat Glomerular Filtration Rate 92 Lactic Acid Level 1.1 Date/Time Source Procedure Growth Status 08/16/17 20:15 Blood Peripheral Aerobic Blood Culture Pending Received 08/16/17 20:15 Blood Peripheral Anaerobic Blood Culture Pending Received 08/16/17 23:30 Stool Stool Stool Pus (FLY) Pending Received Result Diagram: 08/17/17 0147 08/17/17 0147 Caprini VTE Risk Assessment Caprini VTE Risk Assessment: No/Low Risk (score <= 1) Caprini Risk Assessment Model Point Value = 1 Point Value = 2 Point Value = 3 Point Value = 5 Age 41-60 Minor surgery BMI > 25 kg/m2 Swollen legs Varicose veins or History of unexplained or recurrent spontaneous Oral contraceptives or hormone replacement Sepsis (< 1 month) Serious lung disease, including pneumonia (< 1 month) Abnormal pulmonary function Acute myocardial infarction Congestive heart failure (< 1 month) History of inflammatory bowel disease Medical patient at bed rest Age 61-74 Arthroscopic surgery Major open surgery (> 45 min) Laparoscopic surgery (> 45 min) Malignancy Confined to bed (> 72 hours) Immobilizing plaster cast Central venous access Age >= 75 History of VTE Family history of VTE Factor V Leiden Prothrombin [id number] Lupus anticoagulant Anticardiolipin antibodies Elevated serum homocysteine Heparin-induced thrombocytopenia Other congenital or acquired thrombophilia Stroke (< 1 month) Elective arthroplasty Hip, pelvis, or leg fracture Acute spinal cord injury (< 1 month) Prophylaxis Regimen Total Risk Factor Score Risk Level Prophylaxis Regimen 0-1 Low Early ambulation 2 Moderate Order ONE of the following: *Sequential Compression Device (SCD) *Heparin 5000 units SQ BID 3-4 Higher Order ONE of the following medications: *Heparin 5000 units SQ TID *Enoxaparin/Lovenox 40 mg SQ daily (WT < 150 kg, CrCl > 30 mL/min) *Enoxaparin/Lovenox 30 mg SQ daily (WT < 150 kg, CrCl > 10-29 mL/min) *Enoxaparin/Lovenox 30 mg SQ BID (WT < 150 kg, CrCl > 30 mL/min) AND/OR *Sequential Compression Device (SCD) 5 or more Highest Order ONE of the following medications: *Heparin 5000 units SQ TID (Preferred with Epidurals) *Enoxaparin/Lovenox 40 mg SQ daily (WT < 150 kg, CrCl > 30 mL/min) *Enoxaparin/Lovenox 30 mg SQ daily (WT < 150 kg, CrCl > 10-29 mL/min) *Enoxaparin/Lovenox 30 mg SQ BID (WT < 150 kg, CrCl > 30 mL/min) AND *Sequential Compression Device (SCD) Assessment and Plan Assessment and Plan Assessment/plan: 1. Diarrhea with history of resistant, recurrent C. difficile Status post treatment with oral vancomycin C. difficile pending, if positive patient will need infectious disease consult Lactic acid 2.3 on arrival, now 1.1 2. Severe/symptomatic anemia Patient was significant drop in her H&H since 08/07 Transfuse 1 unit PRBCs 3. Hilar mass on chest x-ray Chest CT done on 06/28/17 previously reviewed and mass was presumed inflammatory infiltrate No significant interval change No clinical signs of pneumonia at this time 4. HIV/AIDS Patient follows with as outpatient Has been out of her antiretroviral medication since Obtain medication list and continue 5. Rib fractures Patient with known minimally displaced lower rib fractures Morphine for pain FEN Clear liquid diet Electrolytes: monitor and replete prn Heparin Physician Certification 2 Midnight Certification Type: Admission for Inpatient Services Order for Inpatient Services The services are ordered in accordance with Medicare regulations or non- Medicare payer requirements, as applicable. In the case of services not specified as inpatient-only, they are appropriately provided as inpatient services in accordance with the 2-midnight benchmark. Estimated LOS (days): 2 2 days is the estimated time the patient will need to remain in the hospital, assuming treatment plan goals are met and no additional complications. Post-Hospital Plan: Not yet determined Ct Gannon MD Aug 17, 2017 04:36
[2017-08-17] MEDS: INSULIN ASPART SUPPLEMENTAL SCALE SQ SCH ×4 (08:00→20:58)
[2017-08-17] MEDS: SODIUM CHLORIDE 0.9% FLUSH 10 ML FLUSH IV FLUSH SCH ×2 (09:00→20:57)
[2017-08-17] MEDS: PANTOPRAZOLE INJ 80 MG in SODIUM CHLORIDE 0.9% INJ 100 ML IV SCH ×2 (09:58→17:38)
[2017-08-17] MEDS: FERROUS SULFATE 325 MG (65 MG ELEMENTAL IRON) TAB PO SCH ×2 (09:59→17:38)
[2017-08-17] MEDS: PROPRANOLOL HCL 10 MG TAB PO SCH ×3 (10:01→21:00)
[2017-08-17] MEDS: SPIRONOLACTONE 50 MG TAB PO SCH (10:01)
[2017-08-17] MEDS: FUROSEMIDE 40 MG TAB PO SCH (10:01)
[2017-08-18] VITALS (8 sets, daily range): BP systolic 105–111; BP diastolic 59–65; PULSE 70–85; RESP 16–18; TEMP 98.2–98.8; O2SAT 97–100
[2017-08-18] MEDS: VANCOMYCIN 500 MG VIAL (FOR ORAL USE ONLY) PO SCH ×5 (01:27→23:23)
[2017-08-18 01:44] LABS: HEMATOCRIT 30.2 % (35.0-46.0); HEMOGLOBIN 10.5 GM/DL (11.6-15.3)
[2017-08-18] MEDS: PANTOPRAZOLE INJ 80 MG in SODIUM CHLORIDE 0.9% INJ 100 ML IV SCH ×2 (04:04→14:00)
[2017-08-18] MEDS: INSULIN ASPART SUPPLEMENTAL SCALE SQ SCH ×4 (08:00→21:00)
[2017-08-18] MEDS: SODIUM CHLORIDE 0.9% FLUSH 10 ML FLUSH IV FLUSH SCH ×2 (09:00→23:23)
[2017-08-18] MEDS: FERROUS SULFATE 325 MG (65 MG ELEMENTAL IRON) TAB PO SCH ×2 (09:13→17:26)
[2017-08-18] MEDS: SPIRONOLACTONE 50 MG TAB PO SCH (09:13)
[2017-08-18] MEDS: PROPRANOLOL HCL 10 MG TAB PO SCH ×2 (09:13→21:00)
[2017-08-18] MEDS: FUROSEMIDE 40 MG TAB PO SCH (09:13)
[2017-08-18] MEDS: MORPHINE SULFATE 2 MG/ML INJ IV PUSH PRN ×4 (09:14→23:24)
--- NOTE | 2017-08-18 10:08 | PD.ID.CON ---
History of Present Illness Consult Requested By Primary Care Physician Jeremiah Garcia MD Diagnoses: History of Present Illness is a 52 yo AAF with advanced HIV/AIDS (on HAART: ABC+ epivir+ dolutegravir and darunavir+ cobstat), followed by Dr Teague in outreach clinic. Her CD4 in October 2016 was < 20. She now presents with blood in stool, diarrhea, she has had several episodes of hypervirulent C.diff 027 +. She also has AFB+ stool on her last admission in January.She reports ongoing diarrhea off and on. She also reports dysphagia with feeling of pills being stuck in her throat. Vital signs on arrival to ED Blood pressure 105/59, heart rate 80, respiratory rate 16, oxygen saturation 97% on 2 L nasal cannula, afebrile. Her labs on presentation to ED show WBC 19.3, hemoglobin 7.9, hematocrit 23.6, platelets 129. After initial rehydration and administration of antibiotics, her follow-up labs showed WBC 15.4, hemoglobin 6.9, hematocrit 20.2, platelets 107. She received 2 units of packed red blood cells, 08/18 hemoglobin 11.7, hematocrit 33.5. Presenting chemistries showed sodium 138, potassium 3.7, BUN 14, creatinine 1.01, calcium 7.9, AST 69 ALT 67, alkaline phosphatase 131, total protein 9.3, albumin 2.1. Urinalysis indicated no culture. C. difficile PCR was positive. CXR showed an Ill-defined right perihilar masslike opacity which may reflect developing perihilar airspace disease/atypical infection versus hilar adenopathy. I ordered a stat CT angiography showed right hilar mass and multiple right-sided pulmonary parenchymal nodular densities. Findings are suspicious for malignancy. Finding is likely amenable to CT-guided needle biopsy. Enlarged bilateral axillary lymph nodes. No evidence of pulmonary embolus. CT abdomen and pelvis with contrast shows diffuse nodularity of the liver capsule, suggesting cirrhosis, no focal mass. Evidence of portal venous hypertension with prominent collaterals in the splenic hilum and splenorenal space. Enlarged left inguinal lymph node unchanged, no significant change from prior study of 08/07/17. ID consulted for evaluation and Mment of recurrent Cdiff in pt with HIV. Review of Systems ROS Limitations: Poor Historian Constitutional: COMPLAINS OF: Weight loss, Change in appetite, DENIES: Diaphoretic episodes, Fatigue, Fever, Weight gain, Chills, Dizziness, Night Sweats Endocrine: DENIES: Abnorml menstrual pattern, Heat/cold intolerance, Polydipsia , Polyuria, Polyphagia Eyes: DENIES: Blurred vision, Diplopia, Eye inflammation, Eye pain, Vision loss , Photosensitivity, Double Vision Ears, nose, mouth, throat: DENIES: Tinnitus, Hearing loss, Vertigo, Nasal discharge, Oral lesions, Throat pain, Hoarseness, Ear Pain, Running Nose, Epistaxis, Sinus Pain, Toothache, Odynophagia Respiratory: DENIES: Apneas, Cough, Snoring, Wheezing, Hemoptysis, Sputum production, Shortness of breath Cardiovascular: DENIES: Chest pain, Palpitations, Syncope, Dyspnea on Exertion , PND, Lower Extremity Edema, Orthopnea, Claudication Gastrointestinal: COMPLAINS OF: Abdominal pain, Diarrhea, DENIES: Black stools , Bloody stools, Constipation, Nausea, Vomiting, Difficulty Swallowing, Anorexia Genitourinary: DENIES: Abnormal vaginal bleeding, Dysmenorrhea, Dyspareunia, Sexual dysfunction, Urinary frequency, Urinary incontinence, Urgency, Hematuria , Dysuria, Nocturia, Vaginal discharge Musculoskeletal: DENIES: Joint pain, Muscle aches, Stiffness, Joint Swelling, Back pain, Neck pain Integumentary: DENIES: Abnormal pigmentation, Pruritus, Rash, Nail changes, Breast masses, Breast skin changes, Nipple discharge Hematologic/lymphatic: DENIES: Bruising, Lymphadenopathy Immunologic/allergic: DENIES: Eczema, Urticaria Neurologic: DENIES: Abnormal gait, Headache, Localized weakness, Paresthesias, Seizures, Speech Problems, Tremor, Poor Balance Psychiatric: DENIES: Anxiety, Confusion, Mood changes, Depression, Hallucinations, Agitation, Suicidal Ideation, Homicidal Ideation, Delusions Except as stated in HPI: all other systems reviewed are Neg Past Family Social History Allergies: Coded Allergies: No Known Allergies (Verified Allergy, Unknown, 08/07/17) Past Medical History HIV/AIDS History of recent C. difficile infection Cirrhosis with ascites History of GI bleeding and gastritis History of stroke 2 Pancreatitis. Past Surgical History Reported Medications Reported Meds & Active Scripts Active Keflex (Cephalexin) 500 Mg Cap 500 Mg PO Q12H 7 Days Furosemide 40 Mg Tab 40 Mg PO DAILY Aldactone (Spironolactone) 50 Mg Tab 50 Mg PO DAILY Propranolol (Propranolol HCl) 10 Mg Tab 10 Mg PO Q12HR Reported Ferrous Sulfate 325 Mg (65 Mg Iron) Tablet 325 Mg PO BIDPC Metoprolol Tartrate 25 Mg Tab 25 Mg PO BID Active Ordered Medications Current Medications Medications (Trade) Dose Ordered Sig/Sue Route Start Time Stop Time Status Last Admin (NS Flush) 2 ml UNSCH PRN IV FLUSH 08/16/17 21:30 (NS Flush) 2 ml BID IV FLUSH 08/17/17 09:00 08/17/17 20:57 (Tylenol) 650 mg Q4H PRN PO 08/16/17 21:30 (Zofran Inj) 4 mg Q6H PRN IVP 08/16/17 21:30 (Narcan Inj) 0.4 mg UNSCH PRN IV PUSH 08/16/17 21:30 (D50w (Vial) Inj) 50 ml UNSCH PRN IV PUSH 08/16/17 21:30 (Glucagon Inj) 1 mg UNSCH PRN OTHER 08/16/17 21:30 (NovoLOG SUPPLEMENTAL SCALE) 1 ACHS SLIDING SCALE SQ 08/17/17 08:00 (Morphine Inj) 2 mg Q3HR PRN IV PUSH 08/16/17 23:15 08/18/17 12:11 (Ferrous Sulfate) 325 mg BIDPC PO 08/17/17 09:00 08/18/17 09:13 (Lasix) 40 mg DAILY PO 08/17/17 09:00 08/18/17 09:13 (Inderal) 10 mg Q12HR PO 08/17/17 09:00 08/18/17 09:13 (Aldactone) 50 mg DAILY PO 08/17/17 09:00 08/18/17 09:13 Pantoprazole Sodium 80 mg/ Sodium Chloride 100 ml @ 10 mls/hr Q10H IV 08/17/17 08:00 08/18/17 14:00 (VANCOMYCIN for oral use only) 125 mg QID PO 08/18/17 00:00 08/18/17 12:10 Family History reviewed and NC to current ID problems. Social History Lives with her significant other. Significant alcohol abuse wine almost all day. Physical Exam Vital Signs Vital Signs Date Time Temp Pulse Resp B/P (MAP) Pulse Ox O2 Delivery O2 Flow Rate FiO2 1/25/18 08:12 98.2 80 16 105/59 (74) 97 08/18/17 05:15 79 08/18/17 02:57 98.8 85 18 107/62 (77) 99 08/18/17 01:24 98.4 79 18 111/63 (79) 100 08/18/17 00:43 78 08/17/17 21:07 14 08/17/17 20:59 99.0 87 16 108/63 (78) 99 08/17/17 20:49 Nasal Cannula 2.00 08/17/17 20:05 85 08/17/17 18:24 85 08/17/17 16:30 98.3 83 16 102/57 (72) 98 08/17/17 12:30 98.7 92 16 100/56 (71) 97 Physical Exam GENERAL: Thin built cachectic appearing patient, in no apparent distress. SKIN: No rashes, ecchymoses or lesions. Cool and dry. HEAD: Atraumatic. Normocephalic. No temporal or scalp tenderness. EYES: Pupils equal round and reactive. Extraocular motions intact. No scleral icterus. No injection or drainage. ENT: Nose without bleeding, purulent drainage or septal hematoma. Throat without erythema, tonsillar hypertrophy or exudate. Uvula midline. Airway patent. NECK: Trachea midline. Supple, nontender, no meningeal signs. CARDIOVASCULAR: HS audible. RESPIRATORY: Clear to auscultation. Breath sounds equal bilaterally. No wheezes , rales, or rhonchi. GASTROINTESTINAL: Abdomen soft, non-tender, diffuse abdominal tenderness. MUSCULOSKELETAL: Extremities without clubbing, cyanosis, or edema. NEUROLOGICAL: Awake and alert. Cranial nerves II through XII intact. Motor and sensory grossly within normal limits. Five out of 5 muscle strength in all muscle groups. Normal speech. Psych cooperative IV line sites with no e.o infection. Laboratory Laboratory Tests Test 08/18/17 01:17 Hemoglobin 10.5 Hematocrit 30.2 Date/Time Source Procedure Growth Status 08/16/17 20:15 Blood Peripheral Aerobic Blood Culture - Preliminary NO GROWTH IN 1 DAY Resulted 08/16/17 20:15 Blood Peripheral Anaerobic Blood Culture - Preliminary NO GROWTH IN 1 DAY Resulted 08/16/17 23:30 Stool Stool Stool Pus (FLY) - Final MANY WBC'S Complete Result Diagram: 08/18/17 0117 08/17/17 [address] Angiography 08/18/17 0000 Signed Impressions: Service Date/Time: July 13:50 - CONCLUSION: 1. Right hilar mass and multiple right sided pulmonary parenchymal nodular densities. Findings are suspicious for malignancy. Finding is likely amenable to CT- guided needle biopsy. 2. Enlarged bilateral axillary lymph nodes. 3. No evidence of pulmonary embolus. Adriel Helm MD Abdomen/Pelvis CT 08/18/17 0000 Signed Impressions: Service Date/Time: July 13:50 - CONCLUSION: 1. Diffuse nodularity of the liver capsule suggesting cirrhosis. No focal mass. 2. Evidence of portal venous hypertension with prominent collaterals in the splenic hilum and splenorenal space. 3. Enlarged left inguinal lymph node unchanged. 4. No significant change from prior study of 08/07/2017 Adriel Helm MD Chest X-Ray 08/16/17 0000 Signed Impressions: Service Date/Time: Wednesday, August 16, 2017 15:27 - CONCLUSION: Ill-defined right perihilar masslike opacity which may reflect developing perihilar airspace disease/atypical infection versus hilar adenopathy. Pako Easton MD Assessment and Plan Assessment and Plan Recurrent Cdiff H/o GI bleed prior to admission Advanced HIV/AIDS Alcoholic cirrhosis. Failure to thrive Dysphagia ? Esophagitis. Recs: Continue Vanco oral Clear liquid diet. On Protonix gtt. Consult GI d/w RESIDENTIAL TECH Consult pulm: diagnostic and therapeutic bronch (MARLA vs Lymphoma) denis Mullisn. Palliative care consult. Lynsey Coughlin MD Aug 18, 2017 10:08
--- NOTE | 2017-08-18 10:50 | HHI.PR ---
Subjective Remarks Follow-up C. difficile diarrhea, anemia. The patient states that she continues to have loose stools. She reports lower abdominal pain, which worsened after she took an iron pill. Objective Vitals Vital Signs Date Time Temp Pulse Resp B/P (MAP) Pulse Ox O2 Delivery O2 Flow Rate FiO2 08/18/17 08:12 98.2 80 16 105/59 (74) 97 08/18/17 05:15 79 08/18/17 02:57 98.8 85 18 107/62 (77) 99 08/18/17 01:24 98.4 79 18 111/63 (79) 100 08/18/17 00:43 78 08/17/17 21:07 14 08/17/17 20:59 99.0 87 16 108/63 (78) 99 08/17/17 20:49 Nasal Cannula 2.00 08/17/17 20:05 85 08/17/17 18:24 85 08/17/17 16:30 98.3 83 16 102/57 (72) 98 08/17/17 12:30 98.7 92 16 100/56 (71) 97 I/O 08/17/17 08/17/17 08/17/17 08/18/17 08/18/17 08/18/17 07:00 15:00 23:00 07:00 15:00 23:00 Intake Total 900 ml 405 ml Balance 900 ml 405 ml Intake Oral 500 ml Packed Cells 400 ml 400 ml Blood Product IV Normal Saline Flush 5 ml # Bowel Movements 1 Result Diagram: 08/18/17 0117 08/17/17 0147 Imaging Last Impressions Chest X-Ray 08/16/17 0000 Signed Impressions: Service Date/Time: Wednesday, August 16, 2017 15:27 - CONCLUSION: Ill-defined right perihilar masslike opacity which may reflect developing perihilar airspace disease/atypical infection versus hilar adenopathy. Pako Easton MD Objective Remarks General: Thin female in no acute distress. Heart: Regular rate and rhythm. No murmur. Lungs: Clear to auscultation bilaterally. No wheezes, rales, or rhonchi. Breathing is nonlabored. Abdomen: Soft, mild diffuse tenderness to palpation, nondistended. Extremities: No lower extremity edema. Psych: Alert and oriented. Procedures none Urinary Catheter: No Vascular Central Line Catheter: No A/P Assessment and Plan 1. C. difficile diarrhea: Infectious disease consult is pending. 2. Severe anemia, symptomatic: Status post transfusion of 1 unit PRBCs. Monitor H&H closely. Hemoglobin improved following transfusion. Check stool Hemoccult. Continue PPI. 3. Hilar mass noted on chest x-ray: Chest CT done 06/28/17 showed mass, presumed inflammatory infiltrate. 4. HIV/AIDS: Patient has been out of her antiretroviral medications since . Infectious disease consult is pending. 5. Rib fractures: Continue pain control. 6. FEN: Clear liquid diet. 7. DVT prophylaxis: ANGI Hagen. Tejas Lakhani MD Aug 18, 2017 10:50
[2017-08-18] MEDS ORDERED: DIATRIZOATE MEGLUM/DIATRIZOATE SOD 9 ML CUP PO ONE (11:15)
--- NOTE | 2017-08-18 11:52 | PD.CONS ---
HPI History of Present Illness This is a 52 year old female with hx recurrent C diff, gastric mass seen on EGD , HIV CD < 20, cirrhosis, portal HTN who presented with diarrhea and blood in the stool, dysphagia. ONset diarrhea and rectal bleeding 1 week ago. She started having loose brown stool with red blood. Her description of the blood in stool is inconsistent but it sounds like it was one episode. SHe started having dysphagia with bolus sensation and regurgitation liquids. THis started happening a few days ago when she took an iron pill and felt like it has been stuck since. c/o epigatric pain since this episode. Admits diffuse abd pain. Admits nausea and vomiting. Denies blood in emesis. Ps for c diff tox epid 027. She had EGD 06/22/17 and gastric mass seen, path focal mucosal hemorrhage and can't rule out vascular/spindle cell lesion. Follow up EGD/EUS 06/28/17 gastric mass seen and EUS with FNA recommended as outpt. She says she is schedule for this procedure at [facility] 08/24/17. Last colonoscopy 2015 at [facility] [place] and polyps were found. She did have EGD and dilatation of stricture at that time as well. 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 denies illicit drugs, per EMR hx cocaine abuse (Renetta Mercedes) Review of Systems Constitutional: COMPLAINS OF: Fever Eyes: DENIES: Blurred vision Ears, nose, mouth, throat: DENIES: Hearing loss Respiratory: DENIES: Cough Cardiovascular: DENIES: Chest pain Gastrointestinal: COMPLAINS OF: Abdominal pain, Bloody stools, Diarrhea, Nausea , Vomiting, DENIES: Hematemesis Genitourinary: DENIES: Hematuria Musculoskeletal: DENIES: Joint Swelling Integumentary: DENIES: Pruritus Hematologic/lymphatic: DENIES: Bruising Immunologic/allergic: DENIES: Eczema Neurologic: DENIES: Abnormal gait Psychiatric: DENIES: Confusion (Renetta Mercedes) GI Exam Vitals I&O Vital Signs Date Time Temp Pulse Resp B/P (MAP) Pulse Ox O2 Delivery O2 Flow Rate FiO2 08/18/17 08:12 98.2 80 16 105/59 (74) 97 08/18/17 05:15 79 08/18/17 02:57 98.8 85 18 107/62 (77) 99 08/18/17 01:24 98.4 79 18 111/63 (79) 100 08/18/17 00:43 78 08/17/17 21:07 14 08/17/17 20:59 99.0 87 16 108/63 (78) 99 08/17/17 20:49 Nasal Cannula 2.00 08/17/17 20:05 85 08/17/17 18:24 85 08/17/17 16:30 98.3 83 16 102/57 (72) 98 08/17/17 12:30 98.7 92 16 100/56 (71) 97 I/O 08/17/17 08/17/17 08/17/17 08/18/17 08/18/17 08/18/17 07:00 15:00 23:00 07:00 15:00 23:00 Intake Total 900 ml 405 ml Balance 900 ml 405 ml Intake Oral 500 ml Packed Cells 400 ml 400 ml Blood Product IV Normal Saline Flush 5 ml # Bowel Movements 1 Imaging Last Impressions Chest X-Ray 08/16/17 0000 Signed Impressions: Service Date/Time: Wednesday, August 16, 2017 15:27 - CONCLUSION: Ill-defined right perihilar masslike opacity which may reflect developing perihilar airspace disease/atypical infection versus hilar adenopathy. Pako Easton MD Laboratory Test 08/18/17 01:17 Hemoglobin 10.5 GM/DL Hematocrit 30.2 % Date/Time Source Procedure Growth Status 08/16/17 20:15 Blood Peripheral Aerobic Blood Culture - Preliminary NO GROWTH IN 2 DAYS Resulted 08/16/17 20:15 Blood Peripheral Anaerobic Blood Culture - Preliminary NO GROWTH IN 2 DAYS Resulted 08/16/17 23:30 Stool Stool Stool Pus (FLY) - Final MANY WBC'S Complete Physical Examination HEENT: PERRL; normocephalic; atraumatic; no jaundice. CHEST: DIMINISHED, shallow respirations CARDIAC: RRR ABDOMEN: Soft, mildly distended, diffuse TTP; no hepatosplenomegaly; bowel sounds are present in all four quadrants. EXTREMITIES: No clubbing, cyanosis, or edema. SKIN: Normal; no rash; no jaundice. TIRE SORTER: No focal deficits; alert and oriented times three. (Renetta Mercedes) Assessment and Plan Plan ASSESSMENT - diarrhea, abd pain - c diff, pos tox epid 027. ID following. last colonoscopy 2015, polyps found - hematochezia - at least 1 episode in last week, pt inconsistent historian. - anemia with drop in hgb - normocytic, likely multifactorial and partly 2/2 above. s/p 2 x PRBC. - n/v, dysphagia - had difficulty since swallowing iron pill that she feels got stuck. intermittent regurgitation of liquids and solids. also c/o associated epigastric pain. had EGD and dil stricture 2015. - gastric mass - She had EGD 06/22/17 and gastric mass seen, path focal mucosal hemorrhage and can't rule out vascular/spindle cell lesion. Follow up EGD/EUS 06/28/17 gastric mass seen. scheduled for EUS W/ FNA at [facility] 08/24/17 - HIV cd < 20, ID on case PLAN - EGD and colonoscopy in am - clear liquids - GoLYtely - NPO after midnight - abx per ID - monitor HH - transfuse as needed - further recs to follow pt seen by myself and Dr Stone and this note is written on his behalf (Renetta Mercedes) Plan Patient was seen and examined, agree with above-noted, plan upper endoscopy and colonoscopy in the morning (Sam Stone MD) Renetta Mercedes Aug 18, 2017 11:52 Sam Stone MD Aug 18, 2017 21:11
--- NOTE | 2017-08-18 12:38 | PD.CONS ---
Consult Service Palliative Care Consult Requested By Dr.T. Metcalf . Primary Care Physician Jeremiah Garcia MD Reason for Consultation a. To assist with evaluation and management of symptoms including: Diarrhea , pain, weight loss, weakness b. To assist medical decision maker(s) with: better understanding of current medical conditions; weighing benefits/burdens of medical treatment options; making medical treatment decisions. HPI History of Present Illness This is a 52-year-old female seen at [facility] emergency department 08/16 with a history of diarrhea that started 08/15 associated with abdominal pain across the entire abdomen that started about a week ago, exacerbated by sitting up, sharp, stabbing in nature, chills, fatigue/weakness and shortness of breath. She had very similar complaints on a previous ED visit 08/07/17. She also had complaints of midsternal intermittent, stabbing chest pain which occurred after swallowing an iron pill. She does have a history of esophageal stricture and is due for EGD again 08/24 to reevaluate recurrent stricture. She recently had a fall and fractured ribs bilaterally. She complains of difficulty swallowing and weight loss. She is immunocompromised related to HIV with some episodes of medical noncompliance with therapy with recurrent C. difficile infections. At this admission she states that she has been out of her antiretrovirals as she has not seen her ID specialist, Dr. Ahumada and ran out of meds last . She had been on HAART --> ABC+ epivir+ dolutegravir and darunavir+ cobstat. She states she has not seen her doctor in about 4 months. She does not know when her last CD4 count was drawn. [place] labs reveal a CD4 count of less than 20 on 03/29/17. She has been positive for C. difficile 7 times since December 2016 and is again on this admission. She has been seen in the ED 20 times in the last 12 months. She had been seen in ED 08/07 and diagnosed with a UTI and prescribed Keflex, rib fractures and a lung mass which was thought to be an inflammatory infiltrate. She also reports having had diarrhea at that time. During that admission she was seen by infectious disease, Dr. Masterson who notes end-stage AIDS, hypervigilant strain of C. 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 She has a history of chronic pain and previously had used Lortab 5/325 1-2 times per day. Her pain is generalized, and at this evaluation she complains of pains in her arms, ribs bilaterally, abdomen, intermittent stabbing pains in her chest and her back. She states her last fall was 2 weeks ago, prior to her 08/07 visit to the ED. She states she has lost about 30 pounds and she has difficulty swallowing actual food. She states she has not eaten solid food in 3 days. Clinical data: * Vital signs: Blood pressure 105/59, heart rate 80, respiratory rate 16, oxygen saturation 97% on 2 L nasal cannula, afebrile. * Laboratory: Labs on presentation to ED show WBC 19.3, hemoglobin 7.9, hematocrit 23.6, platelets 129. After initial rehydration and administration of antibiotics, her follow-up labs showed WBC 15.4, hemoglobin 6.9, hematocrit 20.2, platelets 107. She received 2 units of packed red blood cells, 08/18 hemoglobin 11.7, hematocrit 33.5. Presenting chemistries showed sodium 138, potassium 3.7, BUN 14, creatinine 1.01, calcium 7.9, AST 69 ALT 67, alkaline phosphatase 131, total protein 9.3, albumin 2.1. Urinalysis indicated no culture. C. difficile PCR was positive. * Radiology: [id number] right perihilar masslike opacity which may reflect developing perihilar airspace disease/atypical infection versus hilar adenopathy. CT angiography showed right hilar mass and multiple right-sided pulmonary parenchymal nodular densities. Findings are suspicious for malignancy. Finding is likely amenable to CT-guided needle biopsy. Enlarged bilateral axillary lymph nodes. No evidence of pulmonary embolus. CT abdomen and pelvis with contrast shows diffuse nodularity of the liver capsule, suggesting cirrhosis, no focal mass. Evidence of portal venous hypertension with prominent collaterals in the splenic hilum and splenorenal space. Enlarged left inguinal lymph node unchanged, no significant change from prior study of 08/07/17. Consultation has been placed to gastroenterology due to GI bleed, esophagitis, loss of appetite, loss of weight for EGD and colonoscopy. Consultation has also been placed for infectious disease due to resistant, recurrent C. difficile and to palliative care to establish goals of care. Patient had previously made herself a DO NOT RESUSCITATE and signed a [facility] DNR form. She subsequently rescinded that stating that she now felt she would live longer than 6 months. Resuscitative measures were reviewed with the patient and time allowed for questions. Upon thorough examination of the procedures she stated she would not wish to be resuscitated and requested to be made a DNR again. I did review with her her previous change in CODE STATUS and advised that a new [facility] DNR would need to be re-signed and she was in agreement with that. . Function/Cognitive Trajectory She states that she has lost about 30 pounds. Review of previous palliative care consult, indicates her weight on 04/28/17 was 105 pounds. An estimated weight has been entered of that approximate weight for this admission, but no actual weight as yet been taken. She uses a walker or cane at home to ambulate and states she is becoming progressively weaker and has had some falls. She is independent with her own ADLs at home. . Review of Systems Constitutional: COMPLAINS OF: Fatigue, Pain Endocrine: DENIES: Abnorml menstrual pattern, Heat/cold intolerance, Polydipsia , Polyuria, Polyphagia Eyes: DENIES: Blurred vision, Diplopia, Eye inflammation, Eye pain, Vision loss , Photosensitivity, Double Vision, Blind spots Ears, nose, mouth, throat: DENIES: Tinnitus, Hearing loss, Vertigo, Nasal discharge, Oral lesions, Throat pain, Hoarseness, Ear Pain, Running Nose, Epistaxis, Sinus Pain, Toothache, Odynophagia Respiratory: COMPLAINS OF: Shortness of breath Cardiovascular: COMPLAINS OF: Chest pain (rib pain, fractures) Gastrointestinal: COMPLAINS OF: Abdominal pain, Diarrhea Genitourinary: DENIES: Abnormal vaginal bleeding, Dysmenorrhea, Dyspareunia, Sexual dysfunction, Urinary frequency, Urinary incontinence, Urgency, Hematuria , Dysuria, Nocturia, Vaginal discharge, Hesitancy, Dribbling, Decreased stream Musculoskeletal: COMPLAINS OF: Muscle aches Integumentary: DENIES: Abnormal pigmentation, Pruritus, Rash, Nail changes, Breast masses, Breast skin changes, Nipple discharge, Nodules, Tumors, Excessive dryness, Non-healing sores Hematologic/Lymphatics: DENIES: Bruising, Lymphadenopathy, Prolonged bleed w/ proced, History of transfusions Immunologic/Allergic: DENIES: Eczema, Urticaria Neurologic: DENIES: Abnormal gait, Headache, Localized weakness, Paresthesias, Seizures, Speech Problems, Tremor, Poor Balance, Change in smell or taste Psychiatric: DENIES: Anxiety, Confusion, Mood changes, Depression, Hallucinations, Agitation, Suicidal Ideation, Homicidal Ideation, Delusions, Anhedonia Past Family Social History Coded Allergies: No Known Allergies (Verified Allergy, Unknown, 08/07/17) Past Medical History HIV/AIDS CVA 2 with recent suturable hemiparesis History of seizures in the distant past Esophageal stricture Schatzki's ring Gastritis Colonic polyposis Recurrent C. difficile. 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 Past Surgical History Ectopic Exploratory laparotomy section EGD/colonoscopy . Reported Medications Reported Meds & Active Scripts Active Keflex (Cephalexin) 500 Mg Cap 500 Mg PO Q12H 7 Days Furosemide 40 Mg Tab 40 Mg PO DAILY Aldactone (Spironolactone) 50 Mg Tab 50 Mg PO DAILY Propranolol (Propranolol HCl) 10 Mg Tab 10 Mg PO Q12HR Reported Ferrous Sulfate 325 Mg (65 Mg Iron) Tablet 325 Mg PO BIDPC Metoprolol Tartrate 25 Mg Tab 25 Mg PO BID . Current Medications Medications (Trade) Dose Ordered Sig/Sue Route Start Time Stop Time Status Last Admin (NS Flush) 2 ml UNSCH PRN IV FLUSH 08/16/17 21:30 (NS Flush) 2 ml BID IV FLUSH 08/17/17 09:00 08/17/17 20:57 (Tylenol) 650 mg Q4H PRN PO 08/16/17 21:30 (Zofran Inj) 4 mg Q6H PRN IVP 08/16/17 21:30 (Narcan Inj) 0.4 mg UNSCH PRN IV PUSH 08/16/17 21:30 (D50w (Vial) Inj) 50 ml UNSCH PRN IV PUSH 08/16/17 21:30 (Glucagon Inj) 1 mg UNSCH PRN OTHER 08/16/17 21:30 (NovoLOG SUPPLEMENTAL SCALE) 1 ACHS SLIDING SCALE SQ 08/17/17 08:00 (Morphine Inj) 2 mg Q3HR PRN IV PUSH 08/16/17 23:15 08/18/17 12:11 (Ferrous Sulfate) 325 mg BIDPC PO 08/17/17 09:00 08/18/17 09:13 (Lasix) 40 mg DAILY PO 08/17/17 09:00 08/18/17 09:13 (Inderal) 10 mg Q12HR PO 08/17/17 09:00 08/18/17 09:13 (Aldactone) 50 mg DAILY PO 08/17/17 09:00 08/18/17 09:13 Pantoprazole Sodium 80 mg/ Sodium Chloride 100 ml @ 10 mls/hr Q10H IV 08/17/17 08:00 08/18/17 04:04 (VANCOMYCIN for oral use only) 125 mg QID PO 08/18/17 00:00 08/18/17 12:10 . Family History Mother of hepatic cirrhosis, otherwise no history of heart disease diabetes or cancer. . Substance Use Tobacco: Smoked one pack per day for 30 years, quit in 2017. Alcohol: History of heavy EtOH use in the past, ending around 08/10. Currently an occasional beer. Prescription med abuse: No known history of prescription drug abuse. Illicits: History of cocaine abuse. . Psychosocial History She is born in [place] and completed high school through the 10th grade. Subsequently worked in [employer]. She was never and has no children. She has a partner for over 30 years, Brandon Munoz. Reports 17 siblings. . 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 Aware and accepting of the availability of electronic engraver visits. . Living Will: Never completed Health Care Surrogate: Copy in medical record Durable Power of Music Supervisor: Never completed Health Care Surrogate(s): She had previously completed HCS form designating Grant Suraj as her primary and Brandon Munoz as alternate . . Documented care wishes: Patient had presented a previously signed DO NOT RESUSCITATE form. She felt at the time that she had a very short lifespan remaining, but no longer feels that way. . Today's verbally stated goals: Patient is aware that her health is very poor but is not anticipating anytime soon. She does not wish resuscitative attempts at this time. . Family/friends goals: Her significant other, Brandon Munoz, was in the room during our discussion and he nodded agreement with her decision for no resuscitation and verbally agreed with that. . Ethical and Legal Issues Patient appears capacitated to make her own healthcare decisions. She has completed health care surrogate paperwork designating her primary healthcare surrogate as her nephew Grant and her alternative as her partner Brandon. Mr. Munoz was aware of that decision and also in agreement with that. . Physical Exam Vital Signs Date Time Temp Pulse Resp B/P (MAP) Pulse Ox O2 Delivery O2 Flow Rate FiO2 08/18/17 08:12 98.2 80 16 105/59 (74) 97 08/18/17 05:15 79 08/18/17 02:57 98.8 85 18 107/62 (77) 99 08/18/17 01:24 98.4 79 18 111/63 (79) 100 08/18/17 00:43 78 08/17/17 21:07 14 08/17/17 20:59 99.0 87 16 108/63 (78) 99 08/17/17 20:49 Nasal Cannula 2.00 08/17/17 20:05 85 08/17/17 18:24 85 08/17/17 16:30 98.3 83 16 102/57 (72) 98 08/17/17 12:30 98.7 92 16 100/56 (71) 97 . Current Medications Medications (Trade) Dose Ordered Sig/Sue Route Start Time Stop Time Status Last Admin (NS Flush) 2 ml UNSCH PRN IV FLUSH 08/16/17 21:30 (NS Flush) 2 ml BID IV FLUSH 08/17/17 09:00 08/17/17 20:57 (Tylenol) 650 mg Q4H PRN PO 08/16/17 21:30 (Zofran Inj) 4 mg Q6H PRN IVP 08/16/17 21:30 (Narcan Inj) 0.4 mg UNSCH PRN IV PUSH 08/16/17 21:30 (D50w (Vial) Inj) 50 ml UNSCH PRN IV PUSH 08/16/17 21:30 (Glucagon Inj) 1 mg UNSCH PRN OTHER 08/16/17 21:30 (NovoLOG SUPPLEMENTAL SCALE) 1 ACHS SLIDING SCALE SQ 08/17/17 08:00 (Morphine Inj) 2 mg Q3HR PRN IV PUSH 08/16/17 23:15 08/18/17 12:11 (Ferrous Sulfate) 325 mg BIDPC PO 08/17/17 09:00 08/18/17 09:13 (Lasix) 40 mg DAILY PO 08/17/17 09:00 08/18/17 09:13 (Inderal) 10 mg Q12HR PO 08/17/17 09:00 08/18/17 09:13 (Aldactone) 50 mg DAILY PO 08/17/17 09:00 08/18/17 09:13 Pantoprazole Sodium 80 mg/ Sodium Chloride 100 ml @ 10 mls/hr Q10H IV 08/17/17 08:00 08/18/17 14:00 (VANCOMYCIN for oral use only) 125 mg QID PO 08/18/17 00:00 08/18/17 12:10 (Colyte Liq) 4,000 ml ONCE ONCE PO 08/18/17 16:00 08/18/17 16:01 08/18/17 15:22 . Exam CONSTITUTIONAL/GENERAL: This is an ill appearing, cachectic female in no acute distress. TUBES/LINES/DRAINS: PIV's LAC, right hand, RFA, O2 via nasal cannula. SKIN: Multiple small lesions seen on arms and legs. HEAD: Atraumatic. Normocephalic. EYES: Pupils equal and round and reactive. Extraocular motions intact. No scleral icterus. No injection or drainage. Fundi not examined. ENT: Hearing grossly normal. Nose without bleeding or purulent drainage. Throat without visible erythema, exudates, masses, or lesions. Poor dentition. NECK: Trachea midline. Supple, nontender. No palpable thyroid enlargement or nodularity. CARDIOVASCULAR: Regular rate and rhythm without murmurs, gallops, or rubs. No JVD. Peripheral pulses symmetric. RESPIRATORY/CHEST: Symmetric, unlabored respirations. Clear to auscultation. Breath sounds equal bilaterally. No wheezes, rales, or rhonchi. GASTROINTESTINAL: Abdomen soft, non-tender, nondistended. No hepato-splenomegaly , or palpable masses. No guarding. Bowel sounds present. GENITOURINARY: Without palpable bladder distension. MUSCULOSKELETAL: Extremities without clubbing, cyanosis, or edema. Positive muscle wasting. No joint tenderness or effusion noted. No calf tenderness. No mottling or clubbing. LYMPHATICS: No palpable cervical or supraclavicular adenopathy. NEUROLOGICAL: Awake and alert. Motor and sensory grossly within normal limits. Follows commands. Cognitively sharp. Moves all extremities. PSYCHIATRIC: No obvious anxiety/depression. no apparent hallucinations or other psychotic thought process. . Diagnostic Tests Laboratory Laboratory Tests Test 08/16/17 15:10 08/16/17 19:50 08/16/17 20:15 08/16/17 23:30 White Blood Count 19.3 TH/MM3 (4.0-11.0) Red Blood Count 2.55 MIL/MM3 (4.00-5.30) Hemoglobin 7.9 GM/DL (11.6-15.3) Hematocrit 23.6 % (35.0-46.0) Mean Corpuscular Volume 92.5 FL (80.0-100.0) Mean Corpuscular Hemoglobin 31.1 PG (27.0-34.0) Mean Corpuscular Hemoglobin Concent 33.6 % (32.0-36.0) Red Cell Distribution Width 16.1 % (11.6-17.2) Platelet Count 129 TH/MM3 (150-450) Mean Platelet Volume 8.9 FL (7.0-11.0) Neutrophils (%) (Auto) 90.4 % (16.0-70.0) Lymphocytes (%) (Auto) 4.6 % (9.0-44.0) Monocytes (%) (Auto) 4.8 % (0.0-8.0) Eosinophils (%) (Auto) 0.1 % (0.0-4.0) Basophils (%) (Auto) 0.1 % (0.0-2.0) Neutrophils # (Auto) 17.4 TH/MM3 (1.8-7.7) Lymphocytes # (Auto) 0.9 TH/MM3 (1.0-4.8) Monocytes # (Auto) 0.9 TH/MM3 (0-0.9) Eosinophils # (Auto) 0.0 TH/MM3 (0-0.4) Basophils # (Auto) 0.0 TH/MM3 (0-0.2) CBC Comment DIFF FINAL Differential Comment Prothrombin Time 11.9 SEC (9.8-11.6) Prothromb Time International Ratio 1.2 RATIO Activated Partial Thromboplast Time 28.0 SEC (24.3-30.1) Blood Urea Nitrogen 14 MG/DL (7-18) Creatinine 1.01 MG/DL (0.50-1.00) Random Glucose 133 MG/DL (74-106) Total Protein 9.3 GM/DL (6.4-8.2) Albumin 2.1 GM/DL (3.4-5.0) Calcium Level 7.9 MG/DL (8.5-10.1) Alkaline Phosphatase 131 U/L (45-117) Aspartate Amino Transf (AST/SGOT) 69 U/L (15-37) Alanine Aminotransferase (ALT/SGPT) 67 U/L (10-53) Total Bilirubin 0.4 MG/DL (0.2-1.0) Sodium Level 138 MEQ/L (136-145) Potassium Level 3.7 MEQ/L (3.5-5.1) Chloride Level 108 MEQ/L (98-107) Carbon Dioxide Level 22.0 MEQ/L (21.0-32.0) Anion Gap 8 MEQ/L (5-15) Estimat Glomerular Filtration Rate 69 ML/MIN (>89) Urine Color YELLOW (YELLW/STRAW) Urine Turbidity CLEAR (CLEAR) Urine pH 5.5 (5.0-8.5) Urine Specific [place] 1.016 (1.002-1.035) Urine Protein 30 mg/dL (NEG-TRACE) Urine Glucose (UA) NEG mg/dL (NEG) Urine Ketones NEG mg/dL (NEG) Urine Occult Blood NEG (NEG) Urine Nitrite NEG (NEG) Urine Bilirubin NEG (NEG) Urine Urobilinogen LESS THAN 2.0 MG/DL (LESS Urine Leukocyte Esterase TRACE (NEG) Urine RBC 1 /hpf (0-3) Urine WBC 2 /hpf (0-5) Urine Squamous Epithelial Cells 1 /hpf (0-5) Urine Amorphous Sediment RARE Urine Hyaline Casts 9 /lpf (RARE) Urine Mucus FEW /lpf (OCC) Microscopic Urinalysis Comment CULT NOT INDICATED Lactic Acid Level 2.3 mmol/L (0.4-2.0) Stool C. difficile Toxin (PCR) POSITIVE (NEGATIVE) Stl C. difficile Toxin Epiderm 027 PRESUMPTIVE POSITIVE Test 08/17/17 01:47 08/18/17 01:17 White Blood Count 15.4 TH/MM3 (4.0-11.0) Red Blood Count 2.21 MIL/MM3 (4.00-5.30) Hemoglobin 6.9 GM/DL (11.6-15.3) 10.5 GM/DL (11.6-15.3) Hematocrit 20.2 % (35.0-46.0) 30.2 % (35.0-46.0) Mean Corpuscular Volume 91.5 FL (80.0-100.0) Mean Corpuscular Hemoglobin 31.4 PG (27.0-34.0) Mean Corpuscular Hemoglobin Concent 34.3 % (32.0-36.0) Red Cell Distribution Width 16.0 % (11.6-17.2) Platelet Count 107 TH/MM3 (150-450) Mean Platelet Volume 8.7 FL (7.0-11.0) Neutrophils (%) (Auto) 95.0 % (16.0-70.0) Lymphocytes (%) (Auto) 2.2 % (9.0-44.0) Monocytes (%) (Auto) 2.2 % (0.0-8.0) Eosinophils (%) (Auto) 0.4 % (0.0-4.0) Basophils (%) (Auto) 0.2 % (0.0-2.0) Neutrophils # (Auto) 14.6 TH/MM3 (1.8-7.7) Lymphocytes # (Auto) 0.3 TH/MM3 (1.0-4.8) Monocytes # (Auto) 0.3 TH/MM3 (0-0.9) Eosinophils # (Auto) 0.1 TH/MM3 (0-0.4) Basophils # (Auto) 0.0 TH/MM3 (0-0.2) CBC Comment AUTO DIFF Differential Total Cells Counted 100 Neutrophils % (Manual) 78 % (16-70) Band Neutrophils % 18 % (0-6) Lymphocytes % 2 % (9-44) Monocytes % 1 % (0-8) Neutrophils # (Manual) 14.9 TH/MM3 (1.8-7.7) Metamyelocytes 1 % (0-1) Differential Comment FINAL DIFF MANUAL Platelet Estimate LOW (NORMAL) Platelet Morphology Comment NORMAL (NORMAL) Ovalocytes 1+ (NORMAL) Blood Urea Nitrogen 13 MG/DL (7-18) Creatinine 0.79 MG/DL (0.50-1.00) Random Glucose 96 MG/DL (74-106) Total Protein 8.2 GM/DL (6.4-8.2) Albumin 1.9 GM/DL (3.4-5.0) Calcium Level 7.5 MG/DL (8.5-10.1) Alkaline Phosphatase 114 U/L (45-117) Aspartate Amino Transf (AST/SGOT) 51 U/L (15-37) Alanine Aminotransferase (ALT/SGPT) 54 U/L (10-53) Total Bilirubin 0.5 MG/DL (0.2-1.0) Sodium Level 141 MEQ/L (136-145) Potassium Level 3.5 MEQ/L (3.5-5.1) Chloride Level 113 MEQ/L (98-107) Carbon Dioxide Level 21.7 MEQ/L (21.0-32.0) Anion Gap 6 MEQ/L (5-15) Estimat Glomerular Filtration Rate 92 ML/MIN (>89) Lactic Acid Level 1.1 mmol/L (0.4-2.0) . Result Diagram: 08/18/17 0117 08/17/17 0147 Microbiology Microbiology Date/Time Source Procedure Growth Status 08/16/17 20:15 Blood Peripheral Aerobic Blood Culture - Preliminary NO GROWTH IN 2 DAYS Resulted 08/16/17 20:15 Blood Peripheral Anaerobic Blood Culture - Preliminary NO GROWTH IN 2 DAYS Resulted 08/16/17 20:10 Blood Peripheral Aerobic Blood Culture - Preliminary NO GROWTH IN 2 DAYS Resulted 08/16/17 20:10 Blood Peripheral Anaerobic Blood Culture - Preliminary NO GROWTH IN 2 DAYS Resulted 08/16/17 23:30 Stool Stool Stool Pus (FLY) - Final MANY WBC'S Complete 08/16/17 23:30 Stool Stool - Final NO ENTERIC PATHOGENS DETECTED BY PCR... Complete Imaging Last Impressions CT Angiography 08/18/17 0000 Signed Impressions: Service Date/Time: July 13:50 - CONCLUSION: 1. Right hilar mass and multiple right sided pulmonary parenchymal nodular densities. Findings are suspicious for malignancy. Finding is likely amenable to CT- guided needle biopsy. 2. Enlarged bilateral axillary lymph nodes. 3. No evidence of pulmonary embolus. Adriel Helm MD Chest X-Ray 08/16/17 0000 Signed Impressions: Service Date/Time: Wednesday, August 16, 2017 15:27 - CONCLUSION: Ill-defined right perihilar masslike opacity which may reflect developing perihilar airspace disease/atypical infection versus hilar adenopathy. Pako Easton MD . Patient/Family Conference Present at Family Conference: Spoke with patient and her significant other, Brandon Munoz at bedside. Discussed the effect of HIV on the immune system and its correlation to her recurrent infections. We discussed the likelihood of recurrent infections related to her immunocompromised state, to include recurrent, resistant C. difficile and possible pneumonia. She is aware of her poor prognosis but plans to enjoy her quality of life while she can. She wishes to have her esophagus redilated as she was able to eat much better after her initial procedure. Her primary focus at this moment is butter pecan ice cream, however she is currently on a clear liquid diet. . Family Conference Time (mins): 40 Family Conference Location: Bedside Issues Discussed: * Palliative care role, purpose, approach * Additional medical, psychosocial, and spiritual history * Patients general health, functional status, and cognitive changes in the months leading up to the current hospitalization * Patient/family understanding of the current medical problems * Patient/family understanding of prognosis * Patients goals of care as best understood from advance directives and/or conversations and/or values * Current medical treatment options and benefits/burdens of those options * Likely scenarios comparing ongoing aggressive care with a transition to comfort measures only * Questions answered to the best of my ability * Palliative care contact information provided . Assessment and Plan Disease Oriented Problem List: (1) Dysphagia (2) Decrease in appetite (3) Chronic gastritis (4) Debility (5) Anemia (6) Esophageal stricture (7) Severe protein-calorie malnutrition (8) C. difficile colitis Symptom Scale: (1) Bloody diarrhea (2) Weakness (3) Dysphagia (4) Weight loss Pertinent Non-Medical Issues Psychosocial:She is born in [place] and completed high school through the 10th grade. 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 She was never and has no children. She has a partner for over 30 years, Brandon Munoz. Reports 17 siblings. Spiritual:States she is a Che[employer]ism, not currently attending any local latter-day. Aware and accepting of the availability of electronic engraver visits. Legal: Has designated her healthcare surrogates, currently wishes to be a DO NOT RESUSCITATE. She has no living will. Ethical issues impacting care: None known. . Important Contacts Grant Ruelas (primary) [phone] as HCS. Brandon Munoz as alternate . . Prognosis Her HIV/ARDS has been diagnosed as end-stage per Dr. Anaid Masterson's note. Her last CD4 count was less than 20 in January and in March 2017. She has been noncompliant with her medications and at this time has run out of her antiretrovirals. CT imaging has now identified a right hilar mass and multiple right-sided pulmonary parenchymal nodular densities suspicious for malignancy with enlarged bilateral axillary lymph nodes. She is cachectic and continues to lose weight. She has difficulty swallowing and is requiring repeated esophageal dilations. She has progressive weakness and has started having falls. She now presents with another episode of recurrent, resistant clostridium difficile infection, further compromised by her immunocompromised status and complicated by a mycobacterial infection. She is likely to continue to decline, have recurrent hospitalizations and suffer complications. . Code Status: No Code Plan PLAN: Legal decision maker: At this time patient appears to be able to make her own decisions. Her previous healthcare surrogate form designees were reviewed and she wishes to continue with her currently stated plan of having her nephew, Grant Ruelas, as her first health care surrogate and her longtime blacktop spreader, Brandon Munoz as her alternative healthcare surrogate. That form has been scanned into the system and is available in [employer]. Goals: Aggressive short of choosing not to be intubated or to undergo CPR CODE STATUS: DNR - patient signed [place] DNR today after reviewing CODE STATUS. SYMPTOMS:Diarrhea, pain, weight loss, weakness * Diarrhea: In preparation for a colonoscopy, she is currently receiving Colyte liquid which will likely exacerbate the diarrhea, at least temporarily. She has also been prescribed vancomycin oral solution 125 mg orally, 4 times a day. Infectious disease is following for further antibiotic management. * Pain: She complains of generalized pain in multiple body parts, likely multifactorial to include cachexia, neuropathy, recent falls, rib fractures and esophageal strictures. Tylenol and morphine 2 mg IV every 3 hours as needed are available. She has been receiving 2-3 doses of morphine daily. At this time her pain is reasonably well controlled at rest. * Weight loss/dysphasia: She states that she has continued to lose weight and was 105 pounds at her June 2017 admission. Current weight is estimated. Would recommend obtaining an accurate weight to further quantify the weight loss. She states she has difficulty swallowing and has not been able to eat solid food for several days. GI evaluation for EGD/colonoscopy is currently in progress. On a clear liquid diet, pending that evaluation. * Weakness: She is becoming progressively weaker, likely multifactorial to include advancing disease, poor nutrition, muscle wasting. There is also a suspicion of a malignant process noted in CT angiography. CT guided needle biopsy was recommended to further clarify. SUMMARY: This is a 52 year old female with severe protein calorie malnutrition, cachexia, dysphasia, end-stage HIV/AIDS with poor compliance to medical therapy. There is now suspicion of a malignant process. She is scheduled to undergo colonoscopy and EGD with possible esophageal dilation. She begins to understand that her disease will continue to worsen and eventually end her life. She would be hospice appropriate if goals were consistent. Palliative care will continue to follow the patient during hospital course as condition evolves, to assist patient/decision-maker with understanding of their medical conditions, weighing benefits/burdens of treatment options, for clarification of goals of treatment. Additionally will assist with any symptoms of palliative concern. . Time Spent Time Periods: 15:00-15:40 Total Floor Time (mins): 75 Face to Face Time (mins): 40 >50% Counseling/Coord of Care: Yes Thank you for the opportunity to participate in the care of Ms. Helm. Attestation To help prompt me to consider important information that might be impacting today's encounter and assessment, information from prior notes written by myself or my colleagues may have been "brought forward" into today's note. My signature on this note, however, is an attestation that I personally performed the exam, history, and/or decision-making noted today, and, unless otherwise indicated, the interactions with patient, family, and staff as well as the review of records all occurred today. I also attest that the listed assessment and stated plan reflect my best clinical judgment today based on the combination of historical information, prior notes, and today's exam/ interactions. When time spent is documented, it refers only to time spent today by the signer, or if indicated, combined time spent today by collaborating physician/nurse practitioner. . Lolis Zapata Aug 18, 2017 12:38
--- NOTE | 2017-08-18 14:56 | RADRPT ---
EXAM DATE/TIME: 08/18/2017 13:50 [facility] COMPARISON: CT PULMONARY ANGIOGRAM, February 06, 2017, 10:07. INDICATIONS : Dyspnea and pneumonia IV CONTRAST: 75 cc Omnipaque 350 (iohexol) IV RADIATION DOSE: 7.97 CTDIvol (mGy) MEDICAL HISTORY : Hypertension. HIV. Diabetes mellitus type 1. SURGICAL HISTORY : None. ENCOUNTER: Initial ACUITY: 1 day PAIN SCALE: 0/10 LOCATION: chest TECHNIQUE: Volumetric scanning of the chest was performed using a pulmonary embolism protocol MIP images were re constructed. Using automated exposure control and adjustment of the mA and/or kV according to patien t size, radiation dose was kept as low as reasonably achievable to obtain optimal diagnostic quality images. DICOM format image data is available electronically for review and comparison. Follow-up recommendations for detected pulmonary nodules are based at a minimum on nodule size and pa tient risk factors according to Fleischner Society Guidelines. FINDINGS: PULMONARY ARTERIES: No filling defects are seen in the pulmonary arteries through the segmental level. LUNGS: There is a new right hilar/medial right lung mass measuring 4.1 x 3.7 cm. 6 mm satellite nodule just anterior to this on image #57. 5 mm nodular density laterally in the right midlung on image #60. 1 cm nodular density the right lower lobe on image #77 patchy atelectasis in the right lower lobe. PLEURAE: There is no pleural thickening or pleural effusion. MEDIASTINUM: Extensive coronary artery calcifications. 1 cm precarinal lymph node unchanged, likely reactive. Mild distal esophageal wall thickening. MUSCULOSKELETAL: Within normal limits for patient age. MISCELLANEOUS: Enlarged right axillary lymph node measuring 2.2 x 1.7 cm. Increased from 1.7 x 1.2 cm on the prior s tudy of 02/06/2017. Enlarged left axillary lymph node measuring 2.0 x 1.4 cm increased from 1.8 x 1.2 cm on the prior study. CONCLUSION: 1. Right hilar mass and multiple right sided pulmonary parenchymal nodular densities. Findings are rodriguez spicious for malignancy. Finding is likely amenable to CT-guided needle biopsy. 2. Enlarged bilateral axillary lymph nodes. 3. No evidence of pulmonary embolus. Adriel Helm MD on August 18, 2017 at 14:44 Board Certified Radiologist. This report was verified electronically.
[2017-08-18] MEDS ORDERED: IOHEXOL 350 MG/ML 10 ML VIAL (for RAD DIAG) IVCONTRAST ONE (15:01)
[2017-08-18 15:16] LABS: HEMATOCRIT 33.5 % (35.0-46.0); HEMOGLOBIN 11.7 GM/DL (11.6-15.3)
--- NOTE | 2017-08-18 15:41 | RADRPT ---
EXAM DATE/TIME: 08/18/2017 13:50 [facility] COMPARISON: CT ABDOMEN & PELVIS W CONTRAST, August 07, 2017, 21:40. INDICATIONS : Bloody diharria,pain IV CONTRAST: 75 cc Omnipaque 350 (iohexol) IV ORAL CONTRAST: Partial prescribed oral contrast ingested. RADIATION DOSE: 6.80 CTDIvol (mGy) MEDICAL HISTORY : Seizures. Hypertension. HIV.Diabetes SURGICAL HISTORY : None. ENCOUNTER: Initial ACUITY: 1 day PAIN SCALE: 10/10 LOCATION: Abdomen TECHNIQUE: Volumetric scanning of the abdomen and pelvis was performed. Using automated exposure control and ad justment of the mA and/or kV according to patient size, radiation dose was kept as low as reasonably achievable to obtain optimal diagnostic quality images. DICOM format image data is available electro nically for review and comparison. FINDINGS: LOWER LUNGS: Mild bilateral lower lobe atelectasis. LIVER: Diffuse nodularity of the liver capsule suggesting cirrhosis. No focal mass identified. SPLEEN: Spleen upper limits of normal in size in craniocaudal dimension measuring approximately 11 cm. Farheen us dilated collaterals in the splenic hilum and splenorenal space PANCREAS: Within normal limits. KIDNEYS: Normal in size and shape. There is no mass, stone or hydronephrosis. ADRENAL GLANDS: Within normal limits. VASCULAR: Atherosclerotic disease. Aortic diameter within normal limits. BOWEL/MESENTERY: The stomach, small bowel, and colon demonstrate no acute abnormality. There is no free intraperitone al air or fluid. ABDOMINAL WALL: Within normal limits. RETROPERITONEUM: There is no lymphadenopathy. BLADDER: No wall thickening or mass. REPRODUCTIVE: Within normal limits. INGUINAL: Enlarged left inguinal lymph node measures 3.1 cm, unchanged. MUSCULOSKELETAL: Within normal limits for patient age. CONCLUSION: 1. Diffuse nodularity of the liver capsule suggesting cirrhosis. No focal mass. 2. Evidence of portal venous hypertension with prominent collaterals in the splenic hilum and splenor enal space. 3. Enlarged left inguinal lymph node unchanged. 4. No significant change from prior study of 08/07/2017 Adriel Helm MD on August 18, 2017 at 15:33 Board Certified Radiologist. This report was verified electronically.
[2017-08-18] MEDS ORDERED: PEG (High)/E-LYTE SOLN 4000 ML BTL PO ONE (16:00)
--- NOTE | 2017-08-18 18:51 | HHI.PR ---
Addendum to Inpatient Note Addendum Reason: Additional Documentation Additional Information Reviewed CT Angiogram: right hilar mass Recommend Pulm consult: Diagnostic and therapeutic bronchoscopy. d/w he will see pt. d/w updates from today workup. Lynsey Metcalf MD Aug 18, 2017 18:51
[2017-08-19] VITALS (9 sets, daily range): BP systolic 110–127; BP diastolic 61–73; PULSE 64–76; RESP 18–20; TEMP 97.2–98.7; O2SAT 97–100
[2017-08-19] MEDS: PANTOPRAZOLE INJ 80 MG in SODIUM CHLORIDE 0.9% INJ 100 ML IV SCH ×3 (00:32→23:16)
[2017-08-19] MEDS: MORPHINE SULFATE 2 MG/ML INJ IV PUSH PRN ×2 (06:28→23:24)
[2017-08-19] MEDS ORDERED: LACTATED RINGER'S 1000 ML IV PRN (07:15)
[2017-08-19] MEDS ORDERED: SODIUM CHLORID 0.9% 500 ML IV PRN (07:15)
[2017-08-19] MEDS ORDERED: CHLORHEXIDINE GLUCONATE 2 % 1 PACK (2 CLOTHS) TOPICAL PRN (07:15)
[2017-08-19] MEDS ORDERED: POVIDONE IODINE 5% (ANTISEPSIS KIT) 4 APPLICATIONS EACH NARE PRN (07:15)
[2017-08-19] MEDS ORDERED: METOPROLOL TARTRATE 25 MG TAB PO PRN (07:15)
[2017-08-19 07:49] LABS: AUTOMATED NEUTROPHIL # 4.3 TH/MM3 (1.8-7.7); BASOPHIL % 0.4 % (0.0-2.0); EOSINOPHIL # 0.1 TH/MM3 (0-0.4); EOSINOPHIL % 1.8 % (0.0-4.0); HEMATOCRIT 31.1 % (35.0-46.0); HEMOGLOBIN 10.7 GM/DL (11.6-15.3); LYMPH % 12.2 % (9.0-44.0); LYMPHOCYTE # 0.7 TH/MM3 (1.0-4.8); MEAN CORPUSCULAR HEMOGLOBIN 30.3 PG (27.0-34.0); MEAN CORPUSCULAR HGB CONC 34.4 % (32.0-36.0); MEAN PLATELET VOLUME 8.5 FL (7.0-11.0); MONO % 8.4 % (0.0-8.0); MONOCYTE # 0.5 TH/MM3 (0-0.9); NEUT % 77.2 % (16.0-70.0); PLATELET COUNT 106 TH/MM3 (150-450); RED BLOOD COUNT 3.54 MIL/MM3 (4.00-5.30); RED CELL DISTRIBUTION WIDTH 16.2 % (11.6-17.2); WHITE BLOOD COUNT 5.5 TH/MM3 (4.0-11.0)
--- NOTE | 2017-08-19 08:42 | HHI.PR ---
Subjective Remarks Follow up C. difficile diarrhea, anemia. Patient scheduled for EGD/colonoscopy today. Trying to complete prep. Still having diarrhea. Objective Vitals Vital Signs Date Time Temp Pulse Resp B/P (MAP) Pulse Ox O2 Delivery O2 Flow Rate FiO2 08/19/17 04:00 98.7 74 18 114/70 (85) 100 08/19/17 02:32 66 08/19/17 00:05 75 08/19/17 00:00 97.2 76 18 110/65 (80) 97 08/18/17 22:48 98.3 74 18 110/65 (80) 98 08/18/17 20:27 70 08/18/17 17:41 20 08/18/17 16:20 98.5 77 16 109/62 (78) 99 I/O 08/18/17 08/18/17 08/18/17 08/19/17 08/19/17 08/19/17 07:00 15:00 23:00 07:00 15:00 23:00 Output Total 150 ml Balance -150 ml Output Urine Total 150 ml # Bowel Movements 3 Result Diagram: 08/19/17 0726 08/17/17 [address] Angiography 08/18/17 0000 Signed Impressions: Service Date/Time: July 13:50 - CONCLUSION: 1. Right hilar mass and multiple right sided pulmonary parenchymal nodular densities. Findings are suspicious for malignancy. Finding is likely amenable to CT- guided needle biopsy. 2. Enlarged bilateral axillary lymph nodes. 3. No evidence of pulmonary embolus. Adriel Helm MD Abdomen/Pelvis CT 08/18/17 0000 Signed Impressions: Service Date/Time: July 13:50 - CONCLUSION: 1. Diffuse nodularity of the liver capsule suggesting cirrhosis. No focal mass. 2. Evidence of portal venous hypertension with prominent collaterals in the splenic hilum and splenorenal space. 3. Enlarged left inguinal lymph node unchanged. 4. No significant change from prior study of 08/07/2017 Adriel Helm MD Chest X-Ray 08/16/17 0000 Signed Impressions: Service Date/Time: Wednesday, August 16, 2017 15:27 - CONCLUSION: Ill-defined right perihilar masslike opacity which may reflect developing perihilar airspace disease/atypical infection versus hilar adenopathy. Pako Easton MD Objective Remarks General: Cachectic female in no acute distress. Heart: Regular rate and rhythm. No murmur. Lungs: Clear to auscultation bilaterally. No wheezes, rales, or rhonchi. Breathing is nonlabored. Abdomen: Soft, mild diffuse tenderness to palpation, nondistended. Extremities: No lower extremity edema. Psych: Alert and oriented. Procedures none Urinary Catheter: No Vascular Central Line Catheter: No A/P Assessment and Plan 1. C. difficile diarrhea: Continue oral vancomycin. Appreciate infectious disease, GI recommendations. 2. Severe anemia, symptomatic: Status post transfusion of 1 unit PRBCs. H/H stable. Stool Hemoccult negative. Continue PPI. 3. Hilar mass noted on chest x-ray: Chest CT done 06/28/17 showed mass, presumed inflammatory infiltrate. Pulmonology consult pending. Patient will need CT guided biopsy vs bronchoscopy. 4. HIV/AIDS: Patient has been out of her antiretroviral medications since . Appreciate infectious disease recommendations. 5. Rib fractures: Continue pain control. 6. FEN: NPO for procedure. 7. DVT prophylaxis: SCDs, ANGI adams. 8. Hematochezia, gastric mass, dysphagia: Appreciate GI recommendations. Endoscopy today. 9. Poor prognosis: Appreciate palliative care assistance. Tejas Lakhani MD Aug 19, 2017 08:42
[2017-08-19] MEDS: FERROUS SULFATE 325 MG (65 MG ELEMENTAL IRON) TAB PO SCH ×2 (08:53→18:43)
[2017-08-19] MEDS: PROPRANOLOL HCL 10 MG TAB PO SCH ×2 (08:53→23:19)
[2017-08-19] MEDS: VANCOMYCIN 500 MG VIAL (FOR ORAL USE ONLY) PO SCH ×4 (08:54→23:19)
[2017-08-19] MEDS: SODIUM CHLORIDE 0.9% FLUSH 10 ML FLUSH IV FLUSH SCH ×2 (09:00→23:16)
[2017-08-19] MEDS: INSULIN ASPART SUPPLEMENTAL SCALE SQ SCH ×4 (09:00→21:00)
[2017-08-19 09:16] LABS: OVALOCYTES 1+ (NORMAL)
[2017-08-19] MEDS ORDERED: LIDOCAINE HCL 1% PF 5 ML SYRINGE OTHER ONE (12:00)
[2017-08-19] MEDS ORDERED: PROPOFOL 200 MG/20 ML AMP IV ONE (12:00)
[2017-08-19] MEDS: FUROSEMIDE 40 MG TAB PO SCH (13:27)
[2017-08-19] MEDS: SPIRONOLACTONE 50 MG TAB PO SCH (13:27)
[2017-08-19] MEDS ORDERED: DO NOT ADM ANY ANTICOAGULANT DRUGS PRN (14:24)
--- NOTE | 2017-08-19 16:16 | PD.PROCEDR ---
GI Procedure PROCEDURE PERFORMED Upper endoscopy with biopsy Colonoscopy INDICATION FOR PROCEDURE GI bleed Dysphagia PROCEDURE: The procedure, risks and benefits were discussed with Ms. Helm and informed consent was obtained. Anesthesia sedated her with Diprivan. She was placed in the left lateral decubitus position. EGD: The Pentax videoscope was introduced through the oropharynx and advanced to the second portion of the duodenum under direct visualization. Retroflexion was performed in the stomach.Biopsy from the distal esophagus, biopsy from a nodule in the cardia area of the stomach Colonoscopy: The Pentax videoscope was introduced through the rectum and advanced to cecum , retroflexion was performed in the rectum. Colonic prep was good ESTIMATED BLOOD LOSS: None SPECIMENS REMOVED: Distal esophagus, fundus of the stomach COMPLICATIONS: None IMPRESSION: Significant esophagitis grade D biopsy was done most likely contributing to the patient sensation of dysphagia no clear stricture identified Large nodule in the cardia could be inflammatory but cancer cannot be excluded so biopsy was done Duodenum normal The colon looked normal no inflammation or colitis PLAN: Follow up biopsy May feed patient self diet Continue PPI Sam Stone MD Aug 19, 2017 16:16
--- NOTE | 2017-08-19 16:20 | HHI.GIFU ---
Subjective Remarks Patient laying in bed comfortably, no significant problem at this time, tolerated prep Objective Vitals I&O Vital Signs Date Time Temp Pulse Resp B/P (MAP) Pulse Ox O2 Delivery O2 Flow Rate FiO2 08/19/17 15:00 64 18 97 Room Air 08/19/17 14:45 57 18 133/78 (96) 97 Room Air 08/19/17 14:30 66 16 139/87 (104) 97 Room Air 08/19/17 14:22 97.6 67 16 153/87 (109) 97 Room Air 08/19/17 12:00 98.2 64 18 125/61 (82) 100 08/19/17 08:52 97.5 68 20 110/62 (78) 99 08/19/17 04:00 98.7 74 18 114/70 (85) 100 08/19/17 02:32 66 08/19/17 00:05 75 08/19/17 00:00 97.2 76 18 110/65 (80) 97 08/18/17 22:48 98.3 74 18 110/65 (80) 98 08/18/17 20:27 70 08/18/17 17:41 20 08/18/17 16:20 98.5 77 16 109/62 (78) 99 I/O 08/18/17 08/18/17 08/18/17 08/19/17 08/19/17 08/19/17 07:00 15:00 23:00 07:00 15:00 23:00 Intake Total 500 ml Output Total 150 ml Balance 350 ml Other 500 ml Output Urine Total 150 ml # Bowel Movements 3 Laboratory Laboratory Tests Test 08/19/17 07:26 White Blood Count 5.5 Red Blood Count 3.54 Hemoglobin 10.7 Hematocrit 31.1 Mean Corpuscular Volume 88.0 Mean Corpuscular Hemoglobin 30.3 Mean Corpuscular Hemoglobin Concent 34.4 Red Cell Distribution Width 16.2 Platelet Count 106 Mean Platelet Volume 8.5 Neutrophils (%) (Auto) 77.2 Lymphocytes (%) (Auto) 12.2 Monocytes (%) (Auto) 8.4 Eosinophils (%) (Auto) 1.8 Basophils (%) (Auto) 0.4 Neutrophils # (Auto) 4.3 Lymphocytes # (Auto) 0.7 Monocytes # (Auto) 0.5 Eosinophils # (Auto) 0.1 Basophils # (Auto) 0.0 CBC Comment AUTO DIFF Differential Comment AUTO DIFF CONFIRMED Platelet Estimate LOW Platelet Morphology Comment NORMAL Ovalocytes 1+ Date/Time Source Procedure Growth Status 08/16/17 20:15 Blood Peripheral Aerobic Blood Culture - Preliminary NO GROWTH IN 3 DAYS Resulted 08/16/17 20:15 Blood Peripheral Anaerobic Blood Culture - Preliminary NO GROWTH IN 3 DAYS Resulted 08/18/17 21:20 Stool Stool Stool Occult Blood (FLY) - Final HEMOCCULT NEGATIVE Complete Physical Exam HEENT: Pupils round and reactive to light; normocephalic; atraumatic; no jaundice. Throat is clear. NECK: Neck is supple, no JVD, no lymphadenopathy. CHEST: Chest is clear to auscultation and percussion. CARDIAC: Regular rate and rhythm with no murmur gallop or rubs. ABDOMEN: Soft, nondistended, mild tenderness; no hepatosplenomegaly; bowel sounds are present in all four quadrants. EXTREMITIES: No clubbing, cyanosis, or edema. SKIN: Normal; no rash; no jaundice. [employer] SAL[employer]OCIATE: No focal deficits; alert and oriented times three. Assessment and Plan Plan Patient was seen and examined, doing okay no new complain had upper endoscopy and colonoscopy today, she had C. difficile positive IMPRESSION: Significant esophagitis grade D biopsy was done most likely contributing to the patient sensation of dysphagia no clear stricture identified Large nodule in the cardia could be inflammatory but cancer cannot be excluded so biopsy was done Duodenum normal The colon looked normal no inflammation or colitis PLAN: Follow up biopsy May feed patient self diet Continue PPI Sam Stone MD Aug 19, 2017 16:20
[2017-08-19 18:08] LABS: AUTOMATED NEUTROPHIL # 2.8 TH/MM3 (1.8-7.7); BASOPHIL % 0.9 % (0.0-2.0); EOSINOPHIL # 0.1 TH/MM3 (0-0.4); EOSINOPHIL % 2.5 % (0.0-4.0); HEMOGLOBIN 12.5 GM/DL (11.6-15.3); LYMPHOCYTE # 0.6 TH/MM3 (1.0-4.8); MEAN CELL VOLUME 88.2 FL (80.0-100.0); MEAN CORPUSCULAR HEMOGLOBIN 30.6 PG (27.0-34.0); MEAN CORPUSCULAR HGB CONC 34.7 % (32.0-36.0); MONO % 6.5 % (0.0-8.0); MONOCYTE # 0.2 TH/MM3 (0-0.9); NEUT % 75.1 % (16.0-70.0); PLATELET COUNT 122 TH/MM3 (150-450); RED BLOOD COUNT 4.08 MIL/MM3 (4.00-5.30); RED CELL DISTRIBUTION WIDTH 16.4 % (11.6-17.2); WHITE BLOOD COUNT 3.7 TH/MM3 (4.0-11.0)
[2017-08-19 18:12] LABS: INTERNATIONAL NORMALIZED RATIO 1.1 RATIO; PROTHROMBIN TIME - PATIENT 11.6 SEC (9.8-11.6)
--- NOTE | 2017-08-19 21:18 | MB ---
cc: ROACEL BRIZUELA MD DATE OF CONSULTATION: 08/19/[address] Lynsey Metcalf REASON FOR CONSULTATION Lung mass. HISTORY OF PRESENT ILLNESS Ms. Helm is a 52-year-old female with history of advanced HIV disease with CD-4 count of 20. She also has history of hypo-virulent C. Diff. AFB was positive in the stool. She comes to the hospital with diarrhea, abdominal discomfort and difficulty swallowing. Did not have fever or chills. No night sweats. She has lost quite a bit of weight. She was worked up in the hospital. She had a CTA of the chest done. It shows right hilar mass and multiple right-sided pulmonary parenchymal nodular densities concerning for malignancy and this finding is amenable to CT-guided needle biopsy. Her CBC showed WBC count 5.5, hemoglobin 10.7, hematocrit 31, MCV 88, platelet count 106, Sodium 140, potassium 3.5, chloride 113, CO2 21, BUN 13, creatinine 0.79, INR is 1.2. She had an EGD done today and her colon looks normal. She had a large nodule in the cardia, possible inflammatory process, and had a biopsy done. PAST MEDICAL HISTORY 1. History of HIV disease and AIDS 2. History of C diff infection with a hyper virulent strain. 3. History of MARLA 4. COPD MEDICATIONS Currently taking 1. IV fluid 2. Metoprolol 25 mg p.r.n. 3. Vancomycin 125 mg p.o. four times a day, 4. Lasix 40 mg a day, 5. Propranolol 10 mg q.12 h, 6. Spironolactone 50 mg a day, 7. Protonix IV 8. Morphine for pain. ALLERGIES NO KNOWN DRUG ALLERGIES. 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 Has history of smoking which she quit. Denies alcohol use. FAMILY HISTORY She has no children. REVIEW OF SYSTEMS She has lost weight. No seizure, stroke or epilepsy. No DVT or pulmonary embolism. PHYSICAL EXAMINATION GENERAL: Frail elderly female not in any acute distress. VITAL SIGNS: Blood pressure 132/78, heart rate 57, respiration 18, temperature 97.6 HEENT: Pupils are equal and react to light. Oral mucosa and nasal mucosa normal. NECK: JVP not raised. CHEST: Equal bilaterally. No rhonchi. CARDIOVASCULAR: S1, S2 normal ABDOMEN: Soft, nondistended. Bowel sounds present. EXTREMITIES: No edema. IMPRESSION 1. Right hilar mass concerning for malignancy or lymphoma. 2. COPD. 3. History of C diff infection. 4. History of MARLA 5. HIV and AIDS. PLAN I discussed with the patient and her at the bedside she will need a CT-guided biopsy since the lung density is more amenable to CT-guided biopsy. I explained the procedure and the complications. The patient understood and wanted to proceed with it. We will consult Interventional Radiology for CT guided biopsy. Antibiotic per Infectious Disease. Aerosol treatment. She was restarted on p.o. for feeding. Monitor blood sugar. Further treatment will depend on her course in the hospital. Thank you, Dr. Lynsey Cabrera, for this consultation. MD CARLIE Arriaga/ /4:35 PM /8:58 PM
[2017-08-20] VITALS (10 sets, daily range): BP systolic 102–119; BP diastolic 60–73; PULSE 59–85; RESP 17–18; TEMP 97.3–98.7; O2SAT 98–100
[2017-08-20] MEDS: PANTOPRAZOLE INJ 80 MG in SODIUM CHLORIDE 0.9% INJ 100 ML IV SCH ×3 (05:33→18:04)
[2017-08-20] MEDS: INSULIN ASPART SUPPLEMENTAL SCALE SQ SCH ×4 (08:00→22:10)
[2017-08-20] MEDS: PROPRANOLOL HCL 10 MG TAB PO SCH ×2 (09:00→21:00)
[2017-08-20] MEDS: SPIRONOLACTONE 50 MG TAB PO SCH (09:13)
[2017-08-20] MEDS: FERROUS SULFATE 325 MG (65 MG ELEMENTAL IRON) TAB PO SCH ×2 (09:13→18:31)
[2017-08-20] MEDS: SODIUM CHLORIDE 0.9% FLUSH 10 ML FLUSH IV FLUSH SCH ×2 (09:13→22:05)
[2017-08-20] MEDS: FUROSEMIDE 40 MG TAB PO SCH (09:14)
[2017-08-20] MEDS: VANCOMYCIN 500 MG VIAL (FOR ORAL USE ONLY) PO SCH ×4 (09:14→22:06)
--- NOTE | 2017-08-20 10:39 | HHI.PR ---
Subjective Remarks Follow-up anemia, hilar mass, C. difficile diarrhea. Patient states that she is still having diarrhea. She had EGD and colonoscopy yesterday. Denies blood in her stool. Objective Vitals Vital Signs Date Time Temp Pulse Resp B/P (MAP) Pulse Ox O2 Delivery O2 Flow Rate FiO2 08/20/17 09:08 97.3 66 18 119/62 (81) 100 08/20/17 05:47 98.1 68 18 118/64 (82) 98 08/20/17 04:39 59 08/20/17 00:20 67 08/19/17 23:14 67 18 122/73 (89) 100 08/19/17 19:53 97.8 66 18 115/65 (82) 100 08/19/17 16:41 98.5 72 18 127/67 (87) 100 08/19/17 15:00 64 18 97 Room Air 08/19/17 14:45 57 18 133/78 (96) 97 Room Air 08/19/17 14:30 66 16 139/87 (104) 97 Room Air 08/19/17 14:22 97.6 67 16 153/87 (109) 97 Room Air 08/19/17 12:00 98.2 64 18 125/61 (82) 100 I/O 08/19/17 08/19/17 08/19/17 08/20/17 08/20/17 08/20/17 07:00 15:00 23:00 07:00 15:00 23:00 Intake Total 500 ml 240 ml 500 ml Output Total 150 ml 4 ml Balance 350 ml 240 ml 496 ml Intake Oral 240 ml 500 ml Other 500 ml Output Urine Total 150 ml Stool Total 4 ml # Voids 3 # Bowel Movements 3 4 Result Diagram: 08/19/17 1715 08/17/17 [address] Angiography 08/18/17 0000 Signed Impressions: Service Date/Time: July 13:50 - CONCLUSION: 1. Right hilar mass and multiple right sided pulmonary parenchymal nodular densities. Findings are suspicious for malignancy. Finding is likely amenable to CT- guided needle biopsy. 2. Enlarged bilateral axillary lymph nodes. 3. No evidence of pulmonary embolus. Adriel Helm MD Abdomen/Pelvis CT 08/18/17 0000 Signed Impressions: Service Date/Time: July 13:50 - CONCLUSION: 1. Diffuse nodularity of the liver capsule suggesting cirrhosis. No focal mass. 2. Evidence of portal venous hypertension with prominent collaterals in the splenic hilum and splenorenal space. 3. Enlarged left inguinal lymph node unchanged. 4. No significant change from prior study of 08/07/2017 Adriel Helm MD Chest X-Ray 08/16/17 0000 Signed Impressions: Service Date/Time: Wednesday, August 16, 2017 15:27 - CONCLUSION: Ill-defined right perihilar masslike opacity which may reflect developing perihilar airspace disease/atypical infection versus hilar adenopathy. Pako Easton MD Objective Remarks General: Cachectic female in no acute distress. Heart: Regular rate and rhythm. No murmur. Lungs: Clear to auscultation bilaterally. No wheezes, rales, or rhonchi. Breathing is nonlabored. Abdomen: Soft, mild diffuse tenderness to palpation, nondistended. Extremities: No lower extremity edema. Psych: Alert and oriented. Procedures none Urinary Catheter: No Vascular Central Line Catheter: No A/P Assessment and Plan 1. C. difficile diarrhea: Continue oral vancomycin. Appreciate infectious disease, GI recommendations. 2. Severe anemia, symptomatic: Status post transfusion of 1 unit PRBCs. H/H improved. Stool Hemoccult negative. Continue PPI. 3. Hilar mass noted on chest x-ray: Chest CT done 06/28/17 showed mass, presumed inflammatory infiltrate. Appreciate pulmonology recommendations. CT-guided biopsy of the mass has been ordered. 4. HIV/AIDS: Patient has been out of her antiretroviral medications for almost a week prior to admission. Appreciate infectious disease recommendations. 5. Rib fractures: Continue pain control. 6. FEN: NPO for procedure. 7. DVT prophylaxis: SCDs, ANGI hose. 8. Hematochezia, gastric mass, dysphagia: Appreciate GI recommendations. EGD showed significant esophagitis a large nodule. Biopsies were done. Pathology is pending. 9. Poor prognosis: Appreciate palliative care assistance. Tejas Lakhani MD Aug 20, 2017 10:39
--- NOTE | 2017-08-20 12:28 | HHI.GIFU ---
Subjective Remarks Resting in the bed with her eyes closed Family member present Waiting on some pain meds now states she hurts in her mid to lower back Eating solid food without vomiting Still has some mild nausea and diarrhea (Sofiya Benson) Objective Vitals I&O Vital Signs Date Time Temp Pulse Resp B/P (MAP) Pulse Ox O2 Delivery O2 Flow Rate FiO2 08/20/17 11:21 98.7 72 17 115/73 (87) 99 08/20/17 09:08 97.3 66 18 119/62 (81) 100 08/20/17 05:47 98.1 68 18 118/64 (82) 98 08/20/17 04:39 59 08/20/17 00:20 67 08/19/17 23:14 67 18 122/73 (89) 100 08/19/17 19:53 97.8 66 18 115/65 (82) 100 08/19/17 16:41 98.5 72 18 127/67 (87) 100 08/19/17 15:00 64 18 97 Room Air 08/19/17 14:45 57 18 133/78 (96) 97 Room Air 08/19/17 14:30 66 16 139/87 (104) 97 Room Air 08/19/17 14:22 97.6 67 16 153/87 (109) 97 Room Air I/O 08/19/17 08/19/17 08/19/17 08/20/17 08/20/17 08/20/17 07:00 15:00 23:00 07:00 15:00 23:00 Intake Total 500 ml 240 ml 500 ml Output Total 150 ml 4 ml Balance 350 ml 240 ml 496 ml Intake Oral 240 ml 500 ml Other 500 ml Output Urine Total 150 ml Stool Total 4 ml # Voids 3 # Bowel Movements 3 4 Laboratory Laboratory Tests Test 08/19/17 17:15 White Blood Count 3.7 Red Blood Count 4.08 Hemoglobin 12.5 Hematocrit 36.0 Mean Corpuscular Volume 88.2 Mean Corpuscular Hemoglobin 30.6 Mean Corpuscular Hemoglobin Concent 34.7 Red Cell Distribution Width 16.4 Platelet Count 122 Mean Platelet Volume 9.0 Neutrophils (%) (Auto) 75.1 Lymphocytes (%) (Auto) 15.0 Monocytes (%) (Auto) 6.5 Eosinophils (%) (Auto) 2.5 Basophils (%) (Auto) 0.9 Neutrophils # (Auto) 2.8 Lymphocytes # (Auto) 0.6 Monocytes # (Auto) 0.2 Eosinophils # (Auto) 0.1 Basophils # (Auto) 0.0 CBC Comment DIFF FINAL Differential Comment Prothrombin Time 11.6 Prothromb Time International Ratio 1.1 Activated Partial Thromboplast Time 25.6 Date/Time Source Procedure Growth Status 08/16/17 20:15 Blood Peripheral Aerobic Blood Culture - Preliminary NO GROWTH IN 4 DAYS Resulted 08/16/17 20:15 Blood Peripheral Anaerobic Blood Culture - Preliminary NO GROWTH IN 4 DAYS Resulted 08/18/17 21:20 Stool Stool Stool Occult Blood (FLY) - Final HEMOCCULT NEGATIVE Complete Imaging Last Impressions CT Angiography 08/18/17 0000 Signed Impressions: Service Date/Time: July 13:50 - CONCLUSION: 1. Right hilar mass and multiple right sided pulmonary parenchymal nodular densities. Findings are suspicious for malignancy. Finding is likely amenable to CT- guided needle biopsy. 2. Enlarged bilateral axillary lymph nodes. 3. No evidence of pulmonary embolus. Adriel Helm MD Abdomen/Pelvis CT 08/18/17 0000 Signed Impressions: Service Date/Time: July 13:50 - CONCLUSION: 1. Diffuse nodularity of the liver capsule suggesting cirrhosis. No focal mass. 2. Evidence of portal venous hypertension with prominent collaterals in the splenic hilum and splenorenal space. 3. Enlarged left inguinal lymph node unchanged. 4. No significant change from prior study of 08/07/2017 Adriel Helm MD Chest X-Ray 08/16/17 0000 Signed Impressions: Service Date/Time: Wednesday, August 16, 2017 15:27 - CONCLUSION: Ill-defined right perihilar masslike opacity which may reflect developing perihilar airspace disease/atypical infection versus hilar adenopathy. Pako Easton MD Physical Exam HEENT: Pupils round and reactive to light; normocephalic; atraumatic; no jaundice. Oral cavity clean pale mucous membranes NECK: Neck is supple, thin CHEST: Chest diminished CARDIAC: Regular rate and rhythm ABDOMEN: Soft, nondistended, obvious tenderness today, lower abdominal cramping with diarrhea bowel sounds soft EXTREMITIES: No edema. SKIN: Dry; no rash; no jaundice. CELLOPHANER: No focal deficits; alert and oriented times three. (Sofiya Benson) Assessment and Plan Plan CT done on 08/18/17 showed diffuse liver nodularity GD done on 08/19/17, results showed Significant esophagitis grade D biopsy was done most likely contributing to the patient sensation of dysphagia no clear stricture identified Large nodule in the cardia could be inflammatory but cancer cannot be excluded so biopsy was done Duodenum normal The colon looked normal no inflammation or colitis Patient is to have CT long biopsy per IR PLAN: Follow up biopsy results in 7-10 days Monitor for any acute bleeding and note intake and output with diarrhea stools Pain management per attending Monitor labs, hemoglobin 10.7 noted on 08/20/17 Will recheck in the morning PPI Supportive care This patient was seen by myself and Dr. Stone, seen on his behalf (Sofiya Benson) Plan Patient was seen and examined, agree with above-noted, no sign of active bleeding, tolerating diet, she will need follow-up on her biopsies, return to the office in 1-2 weeks upon discharge (Sam Stone MD) Sofiya Benson Aug 20, 2017 12:28 Sam Stone MD Aug 20, 2017 20:07
[2017-08-20] MEDS: SODIUM CHLORIDE 0.9% FLUSH 10 ML FLUSH IV FLUSH PRN (12:56)
[2017-08-20] MEDS: MORPHINE SULFATE 2 MG/ML INJ IV PUSH PRN ×2 (13:01→23:03)
[2017-08-20 17:35] LABS: AUTOMATED NEUTROPHIL # 2.2 TH/MM3 (1.8-7.7); BASOPHIL % 0.8 % (0.0-2.0); EOSINOPHIL # 0.1 TH/MM3 (0-0.4); EOSINOPHIL % 2.5 % (0.0-4.0); HEMATOCRIT 31.5 % (35.0-46.0); HEMOGLOBIN 10.9 GM/DL (11.6-15.3); LYMPH % 14.1 % (9.0-44.0); LYMPHOCYTE # 0.4 TH/MM3 (1.0-4.8); MEAN CELL VOLUME 87.8 FL (80.0-100.0); MEAN CORPUSCULAR HEMOGLOBIN 30.5 PG (27.0-34.0); MEAN CORPUSCULAR HGB CONC 34.7 % (32.0-36.0); MEAN PLATELET VOLUME 8.7 FL (7.0-11.0); MONO % 11.1 % (0.0-8.0); MONOCYTE # 0.3 TH/MM3 (0-0.9); NEUT % 71.5 % (16.0-70.0); PLATELET COUNT 109 TH/MM3 (150-450); RED BLOOD COUNT 3.58 MIL/MM3 (4.00-5.30); WHITE BLOOD COUNT 3.1 TH/MM3 (4.0-11.0)
--- NOTE | 2017-08-20 21:03 | HHI.PR ---
Subjective Remarks 52 YOAA female with HIV,C.diff. anemia has lung mass Breathing better No Fever Objective Vital Signs Vital Signs Date Time Temp Pulse Resp B/P (MAP) Pulse Ox O2 Delivery O2 Flow Rate FiO2 08/20/17 19:51 98.7 85 18 108/64 (79) 100 08/20/17 16:44 98.4 76 18 102/60 (74) 100 08/20/17 12:16 66 08/20/17 11:21 98.7 72 17 115/73 (87) 99 08/20/17 09:08 97.3 66 18 119/62 (81) 100 08/20/17 08:32 77 08/20/17 05:47 98.1 68 18 118/64 (82) 98 08/20/17 04:39 59 08/20/17 00:20 67 08/19/17 23:14 67 18 122/73 (89) 100 I/O 08/19/17 08/19/17 08/19/17 08/20/17 08/20/17 08/20/17 07:00 15:00 23:00 07:00 15:00 23:00 Intake Total 500 ml 240 ml 500 ml 1220 ml Output Total 150 ml 4 ml 600 ml Balance 350 ml 240 ml 496 ml 620 ml Intake Oral 240 ml 500 ml 1220 ml Other 500 ml Output Urine Total 150 ml 600 ml Stool Total 4 ml # Voids 3 2 # Bowel Movements 3 4 2 Result Diagram: 08/20/17 1628 08/17/17 0147 Objective Remarks GENERAL: Thin built female,NAD SKIN: Warm and dry. HEAD: Normocephalic. EYES: No scleral icterus. No injection or drainage. NECK: Supple, trachea midline. No JVD or lymphadenopathy. CARDIOVASCULAR: Regular rate and rhythm without murmurs, gallops, or rubs. RESPIRATORY: Breath sounds equal bilaterally. No accessory muscle use. GASTROINTESTINAL: Abdomen soft, non-tender, nondistended. MUSCULOSKELETAL: No cyanosis, or edema. BACK: Nontender without obvious deformity. No CVA tenderness. A/P Assessment and Plan Lung Mass COPD C.diff inf Anemia HIV PLAN: Supplement 02 Aerosol nebs Abx per ID CT guided lung bx Dayton Johnston MD Aug 20, 2017 21:03
[2017-08-21] VITALS (8 sets, daily range): BP systolic 103–110; BP diastolic 58–66; PULSE 62–76; RESP 16–20; TEMP 97.8–98.8; O2SAT 95–98
[2017-08-21] MEDS: PANTOPRAZOLE INJ 80 MG in SODIUM CHLORIDE 0.9% INJ 100 ML IV SCH ×2 (03:17→15:32)
[2017-08-21] MEDS: MORPHINE SULFATE 2 MG/ML INJ IV PUSH PRN ×4 (03:21→22:56)
[2017-08-21 06:54] LABS: BASOPHIL % 0.6 % (0.0-2.0); EOSINOPHIL # 0.1 TH/MM3 (0-0.4); EOSINOPHIL % 3.8 % (0.0-4.0); HEMOGLOBIN 10.3 GM/DL (11.6-15.3); LYMPH % 15.8 % (9.0-44.0); LYMPHOCYTE # 0.5 TH/MM3 (1.0-4.8); MEAN CELL VOLUME 88.3 FL (80.0-100.0); MEAN CORPUSCULAR HEMOGLOBIN 30.2 PG (27.0-34.0); MEAN CORPUSCULAR HGB CONC 34.2 % (32.0-36.0); MEAN PLATELET VOLUME 8.4 FL (7.0-11.0); MONO % 13.2 % (0.0-8.0); MONOCYTE # 0.4 TH/MM3 (0-0.9); NEUT % 66.6 % (16.0-70.0); PLATELET COUNT 100 TH/MM3 (150-450); RED BLOOD COUNT 3.39 MIL/MM3 (4.00-5.30); RED CELL DISTRIBUTION WIDTH 16.1 % (11.6-17.2)
[2017-08-21] MEDS: INSULIN ASPART SUPPLEMENTAL SCALE SQ SCH ×4 (08:00→21:14)
[2017-08-21 08:09] LABS: CORRECTED NUCLEATED RBC 1 /100 WBC (0-0); LYMPHOCYTES 8 % (9-44); MONOCYTES 5 % (0-8); NEUTROPHIL # MANUAL DIFF 2.4 TH/MM3 (1.8-7.7); NUCLEATED RED BLOOD CELL 1 (0-0); POLYS (SEG NEUTROPHILS) 79 % (16-70)
[2017-08-21] MEDS: PROPRANOLOL HCL 10 MG TAB PO SCH ×2 (09:00→21:00)
[2017-08-21] MEDS: SODIUM CHLORIDE 0.9% FLUSH 10 ML FLUSH IV FLUSH SCH ×2 (09:16→21:14)
[2017-08-21] MEDS: SPIRONOLACTONE 50 MG TAB PO SCH (09:16)
--- NOTE | 2017-08-21 09:16 | HHI.PR ---
Subjective Remarks Follow-up anemia, hilar mass, C. difficile diarrhea. The patient states that she is feeling better today. Diarrhea is improving. No shortness of breath or chest pain. No nausea or vomiting. Objective Vitals Vital Signs Date Time Temp Pulse Resp B/P (MAP) Pulse Ox O2 Delivery O2 Flow Rate FiO2 08/21/17 08:36 97.8 70 16 109/66 (80) 98 08/21/17 03:48 98.8 76 18 103/63 (76) 95 08/20/17 23:54 98.0 82 18 102/62 (75) 99 08/20/17 19:51 98.7 85 18 108/64 (79) 100 08/20/17 16:44 98.4 76 18 102/60 (74) 100 08/20/17 12:16 66 08/20/17 11:21 98.7 72 17 115/73 (87) 99 I/O 08/20/17 08/20/17 08/20/17 08/21/17 08/21/17 08/21/17 07:00 15:00 23:00 07:00 15:00 23:00 Intake Total 500 ml 1340 ml Output Total 4 ml 600 ml Balance 496 ml 740 ml Intake Oral 500 ml 1340 ml Output Urine Total 600 ml Stool Total 4 ml # Voids 3 # Bowel Movements 2 Result Diagram: 08/21/17 0520 08/17/17 [address] Angiography 08/18/17 0000 Signed Impressions: Service Date/Time: July 13:50 - CONCLUSION: 1. Right hilar mass and multiple right sided pulmonary parenchymal nodular densities. Findings are suspicious for malignancy. Finding is likely amenable to CT- guided needle biopsy. 2. Enlarged bilateral axillary lymph nodes. 3. No evidence of pulmonary embolus. Adriel Helm MD Abdomen/Pelvis CT 08/18/17 0000 Signed Impressions: Service Date/Time: July 13:50 - CONCLUSION: 1. Diffuse nodularity of the liver capsule suggesting cirrhosis. No focal mass. 2. Evidence of portal venous hypertension with prominent collaterals in the splenic hilum and splenorenal space. 3. Enlarged left inguinal lymph node unchanged. 4. No significant change from prior study of 08/07/2017 Adriel Helm MD Chest X-Ray 08/16/17 0000 Signed Impressions: Service Date/Time: Wednesday, August 16, 2017 15:27 - CONCLUSION: Ill-defined right perihilar masslike opacity which may reflect developing perihilar airspace disease/atypical infection versus hilar adenopathy. Pako Easton MD Objective Remarks General: Cachectic female in no acute distress. Heart: Regular rate and rhythm. No murmur. Lungs: Clear to auscultation bilaterally. No wheezes, rales, or rhonchi. Breathing is nonlabored. Abdomen: Soft, mild diffuse tenderness to palpation, nondistended. Extremities: No lower extremity edema. Psych: Alert and oriented. Procedures none Urinary Catheter: No Vascular Central Line Catheter: No A/P Assessment and Plan 1. C. difficile diarrhea: Continue oral vancomycin. Appreciate infectious disease, GI recommendations. 2. Severe anemia, symptomatic: Status post transfusion of 1 unit PRBCs. H/H improved. Stool Hemoccult negative. Continue PPI. 3. Hilar mass noted on chest x-ray: Chest CT done 06/28/17 showed mass, presumed inflammatory infiltrate. Appreciate pulmonology recommendations. CT-guided biopsy of the mass has been ordered, will likely be done by interventional radiology tomorrow. 4. HIV/AIDS: Patient has been out of her antiretroviral medications for almost a week prior to admission. Appreciate infectious disease recommendations. 5. Rib fractures: Continue pain control. 6. FEN: Regular diet. 7. DVT prophylaxis: SCDs, ANGI hose. 8. Hematochezia, gastric mass, dysphagia: Appreciate GI recommendations. EGD showed significant esophagitis a large nodule. Biopsies were done. Pathology is pending. Continue PPI. 9. Poor long-term prognosis: Appreciate palliative care assistance. Tejas Lakhani MD Aug 21, 2017 09:16
[2017-08-21] MEDS: FUROSEMIDE 40 MG TAB PO SCH (09:17)
[2017-08-21] MEDS: VANCOMYCIN 500 MG VIAL (FOR ORAL USE ONLY) PO SCH ×4 (09:17→21:10)
[2017-08-21] MEDS: FERROUS SULFATE 325 MG (65 MG ELEMENTAL IRON) TAB PO SCH ×2 (09:17→18:15)
[2017-08-21] MEDS: SODIUM CHLORIDE 0.9% FLUSH 10 ML FLUSH IV FLUSH PRN (16:06)
--- NOTE | 2017-08-21 19:39 | HHI.PR ---
Subjective Remarks 52 YOAA female with HIV,C.diff. anemia has lung mass Breathing better No Fever Good appetite Objective Vital Signs Vital Signs Date Time Temp Pulse Resp B/P (MAP) Pulse Ox O2 Delivery O2 Flow Rate FiO2 08/21/17 17:08 98.2 62 20 110/60 (77) 96 08/21/17 12:52 76 20 110/62 (78) 08/21/17 08:36 97.8 70 16 109/66 (80) 98 08/21/17 07:56 66 08/21/17 03:48 98.8 76 18 103/63 (76) 95 08/20/17 23:54 98.0 82 18 102/62 (75) 99 08/20/17 19:51 98.7 85 18 108/64 (79) 100 I/O 08/20/17 08/20/17 08/20/17 08/21/17 08/21/17 08/21/17 07:00 15:00 23:00 07:00 15:00 23:00 Intake Total 500 ml 1340 ml Output Total 4 ml 600 ml Balance 496 ml 740 ml Intake Oral 500 ml 1340 ml Output Urine Total 600 ml Stool Total 4 ml # Voids 3 # Bowel Movements 2 Result Diagram: 08/21/17 0520 08/17/17 0147 Objective Remarks GENERAL: Thin built female,NAD SKIN: Warm and dry. HEAD: Normocephalic. EYES: No scleral icterus. No injection or drainage. NECK: Supple, trachea midline. No JVD or lymphadenopathy. CARDIOVASCULAR: Regular rate and rhythm without murmurs, gallops, or rubs. RESPIRATORY: Breath sounds equal bilaterally. No accessory muscle use. GASTROINTESTINAL: Abdomen soft, non-tender, nondistended. MUSCULOSKELETAL: No cyanosis, or edema. BACK: Nontender without obvious deformity. No CVA tenderness. A/P Assessment and Plan Lung Mass COPD C.diff inf Anemia HIV PLAN: Supplement 02 Aerosol nebs Abx per ID CT guided lung bx for Dayton Barron MD Aug 21, 2017 19:39
[2017-08-22] VITALS (7 sets, daily range): BP systolic 103–129; BP diastolic 59–73; PULSE 64–73; RESP 16–20; TEMP 97.9–98.6; O2SAT 97–100
[2017-08-22] MEDS: PANTOPRAZOLE INJ 80 MG in SODIUM CHLORIDE 0.9% INJ 100 ML IV SCH ×4 (03:33→23:23)
[2017-08-22] MEDS: MORPHINE SULFATE 2 MG/ML INJ IV PUSH PRN ×3 (04:51→23:09)
[2017-08-22 07:08] LABS: HEMATOCRIT 30.6 % (35.0-46.0); HEMOGLOBIN 10.9 GM/DL (11.6-15.3); MEAN CELL VOLUME 87.7 FL (80.0-100.0); MEAN CORPUSCULAR HEMOGLOBIN 31.3 PG (27.0-34.0); MEAN CORPUSCULAR HGB CONC 35.7 % (32.0-36.0); MEAN PLATELET VOLUME 9.1 FL (7.0-11.0); PLATELET COUNT 105 TH/MM3 (150-450); RED BLOOD COUNT 3.48 MIL/MM3 (4.00-5.30); RED CELL DISTRIBUTION WIDTH 16.2 % (11.6-17.2); WHITE BLOOD COUNT 2.8 TH/MM3 (4.0-11.0)
[2017-08-22 07:20] LABS: CREATININE 0.85 MG/DL (0.50-1.00)
--- NOTE | 2017-08-22 08:12 | RADRPT ---
EXAM DATE/TIME: 08/22/2017 00:00 [facility] COMPARISON: CT PULMONARY ANGIOGRAM, August 18, 2017, 13:50. INDICATIONS : Hilar mass. CONCLUSION: The right hilar mass should be biopsied under bronchoscopy. If this is unsuccessful this could be att empted under percutaneous CT guidance if necessary. However if tissue sampling is needed at this time then ultrasound biopsy of either axillary adenopathy could be performed. Grant Villasenor MD on August 22, 2017 at 8:07 Board Certified Radiologist. This report was verified electronically.
--- NOTE | 2017-08-22 08:27 | HHI.PR ---
Subjective Remarks Follow up anemia, hilar mass, C. difficile diarrhea. The patient states that she feels better today. Denies chest pain, dyspnea. Diarrhea has improved. Objective Vitals Vital Signs Date Time Temp Pulse Resp B/P (MAP) Pulse Ox O2 Delivery O2 Flow Rate FiO2 08/22/17 07:17 97.9 68 18 113/59 (77) 99 08/22/17 04:33 98.5 64 18 104/60 (75) 97 08/21/17 20:48 98.5 68 18 104/58 (73) 97 08/21/17 17:08 98.2 62 20 110/60 (77) 96 08/21/17 14:49 73 08/21/17 12:52 76 20 110/62 (78) 08/21/17 08:36 97.8 70 16 109/66 (80) 98 Result Diagram: 08/22/17 0616 08/22/17 0616 Imaging Last Impressions Consultation 08/22/17 0000 Signed Impressions: Service Date/Time: Tuesday, August 22, 2017 00:00 - CONCLUSION: The right hilar mass should be biopsied under bronchoscopy. If this is unsuccessful this could be attempted under percutaneous CT guidance if necessary. However if tissue sampling is needed at this time then ultrasound biopsy of either axillary adenopathy could be performed. Grant Villasenor MD CT Angiography 08/18/17 0000 Signed Impressions: Service Date/Time: July 13:50 - CONCLUSION: 1. Right hilar mass and multiple right sided pulmonary parenchymal nodular densities. Findings are suspicious for malignancy. Finding is likely amenable to CT- guided needle biopsy. 2. Enlarged bilateral axillary lymph nodes. 3. No evidence of pulmonary embolus. Adriel Helm MD Abdomen/Pelvis CT 08/18/17 0000 Signed Impressions: Service Date/Time: July 13:50 - CONCLUSION: 1. Diffuse nodularity of the liver capsule suggesting cirrhosis. No focal mass. 2. Evidence of portal venous hypertension with prominent collaterals in the splenic hilum and splenorenal space. 3. Enlarged left inguinal lymph node unchanged. 4. No significant change from prior study of 08/07/2017 Adriel Helm MD Chest X-Ray 08/16/17 0000 Signed Impressions: Service Date/Time: Wednesday, August 16, 2017 15:27 - CONCLUSION: Ill-defined right perihilar masslike opacity which may reflect developing perihilar airspace disease/atypical infection versus hilar adenopathy. Pako Easton MD Objective Remarks General: Cachectic female in no acute distress. Heart: Regular rate and rhythm. No murmur. Lungs: Clear to auscultation bilaterally. No wheezes, rales, or rhonchi. Breathing is nonlabored. Abdomen: Soft, nontender, nondistended. Extremities: No lower extremity edema. Psych: Alert and oriented. Procedures 08/19/17 EGD, colonoscopy Urinary Catheter: No Vascular Central Line Catheter: No A/P Assessment and Plan 1. C. difficile diarrhea: Continue oral vancomycin. Appreciate infectious disease, GI recommendations. Improving. 2. Severe anemia, symptomatic: Status post transfusion of 1 unit PRBCs. H/H improved. Stool Hemoccult negative. Continue PPI. 3. Hilar mass noted on chest x-ray: Chest CT done 06/28/17 showed mass, presumed inflammatory infiltrate. Appreciate pulmonology recommendations. CT-guided biopsy of the mass has been ordered by pulmonology. Interventional radiology is recommending biopsy by bronchoscopy. Await clarification from pulmonology regarding bronchoscopy vs CT-guided biopsy. 4. HIV/AIDS: Patient had been out of her antiretroviral medications for almost a week prior to admission. Appreciate infectious disease recommendations. 5. Rib fractures: Continue pain control. 6. FEN: Regular diet. 7. DVT prophylaxis: SCDs, ANGI hose. 8. Hematochezia, gastric mass, dysphagia: Appreciate GI recommendations. EGD showed significant esophagitis a large nodule. Biopsies were done. Pathology is pending. Continue PPI. 9. Poor long-term prognosis: Appreciate palliative care assistance. Tejas Lakhani MD Aug 22, 2017 08:27
[2017-08-22 08:39] LABS: BANDS 5 % (0-6); LYMPHOCYTES 9 % (9-44); MONOCYTES 7 % (0-8); NEUTROPHIL # MANUAL DIFF 2.4 TH/MM3 (1.8-7.7); POLYS (SEG NEUTROPHILS) 79 % (16-70)
[2017-08-22] MEDS: SODIUM CHLORIDE 0.9% FLUSH 10 ML FLUSH IV FLUSH SCH ×2 (09:00→23:09)
--- NOTE | 2017-08-22 09:34 | HHI.PR ---
Addendum to Inpatient Note Additional Information d/w and : pt NPO for IR guided procedure but reportedly cancelled. d.w he will d.w IR and if IR not planning on procedure he will try to get bronch arranged if possible. He recommends continue NPO for now. Lynsey Metcalf MD Aug 22, 2017 09:34
[2017-08-22] MEDS: PROPRANOLOL HCL 10 MG TAB PO SCH ×2 (11:29→23:06)
[2017-08-22] MEDS: FERROUS SULFATE 325 MG (65 MG ELEMENTAL IRON) TAB PO SCH ×2 (11:29→17:02)
[2017-08-22] MEDS: INSULIN ASPART SUPPLEMENTAL SCALE SQ SCH ×4 (11:29→21:00)
[2017-08-22] MEDS: VANCOMYCIN 500 MG VIAL (FOR ORAL USE ONLY) PO SCH ×4 (11:30→23:06)
[2017-08-22] MEDS: FUROSEMIDE 40 MG TAB PO SCH (13:41)
[2017-08-22] MEDS: SPIRONOLACTONE 50 MG TAB PO SCH (13:41)
[2017-08-22] MEDS ORDERED: LIDOCAINE HCL 1% 20 ML VIAL SQ ONE (15:53)
--- NOTE | 2017-08-22 16:04 | RADRPT ---
EXAM DATE/TIME: 08/22/2017 14:34 [facility] COMPARISON: No previous studies available for comparison. INDICATIONS : Enlarged lymph node right axilla. MEDICAL HISTORY : Ectopic . Hypertension. HIV. Cirrhosis. Cardiovascular problems. CVA. Diabetic. SURGICAL HISTORY : Exploratory lap. Cesarian section. ENCOUNTER: Initial ACUITY: 1 day PAIN SCORE: 0/10 LOCATION: Right axilla. ORGAN: Right lymph node axillary. SPECIMENS: Three core specimen(s) submitted for pathologic evaluation. DEVICE: 18 gauge Temno needle Post procedure scanning reveals no hematoma or other complication. The possibility does exist that the tissue obtained will be non-diagnostic. If the sample is non-gus gnostic a repeat biopsy or surgical biopsy may need to be performed. TECHNIQUE: 1. Ultrasound guidance for needle biopsy. 2. Needle biopsy. The risks, benefits and alternatives to the procedure were explained and verbal and written consent w as obtained. The site was prepped in sterile fashion. Full sterile technique was used, including ca p, mask, sterile gloves and gown and a large sterile sheet. Hand hygiene and 2% chlorhexidine and/or betadine/alcohol prep was utilized per protocol for cutaneous antisepsis. The skin and subcutaneous tissues were infiltrated with local anesthetic solution. Sterile gel and sterile probe cover were u tilized for ultrasound guidance. With the patient on the ultrasound table, images were obtained. A needle was advanced into the identified target and the number of specimens as above obtained and rodriguez bmitted for pathologic evaluation. The patient tolerated the procedure well and left the ultrasound suite in stable condition. CONCLUSION: Uncomplicated ultrasound guided needle biopsy. Grant Villasenor MD on August 22, 2017 at 16:01 Board Certified Radiologist. This report was verified electronically.
--- NOTE | 2017-08-22 16:14 | HHI.PR ---
Subjective Remarks 52 YOAA female with HIV,C.diff. anemia has lung mass Breathing better No Fever Good appetite DW Objective Vital Signs Vital Signs Date Time Temp Pulse Resp B/P (MAP) Pulse Ox O2 Delivery O2 Flow Rate FiO2 08/22/17 13:39 98.3 73 16 129/73 (91) 99 08/22/17 12:00 98.1 67 20 114/62 (79) 99 08/22/17 07:17 97.9 68 18 113/59 (77) 99 08/22/17 04:33 98.5 64 18 104/60 (75) 97 08/21/17 20:48 98.5 68 18 104/58 (73) 97 08/21/17 17:08 98.2 62 20 110/60 (77) 96 Result Diagram: 08/22/17 0616 08/22/17 0616 Objective Remarks GENERAL: Thin built female,NAD SKIN: Warm and dry. HEAD: Normocephalic. EYES: No scleral icterus. No injection or drainage. NECK: Supple, trachea midline. No JVD or lymphadenopathy. CARDIOVASCULAR: Regular rate and rhythm without murmurs, gallops, or rubs. RESPIRATORY: Breath sounds equal bilaterally. No accessory muscle use. GASTROINTESTINAL: Abdomen soft, non-tender, nondistended. MUSCULOSKELETAL: No cyanosis, or edema. BACK: Nontender without obvious deformity. No CVA tenderness. A/P Assessment and Plan Lung Mass COPD C.diff inf Anemia HIV PLAN: Supplement 02 Aerosol nebs Abx per ID US guided rt Axillary LN bx Dayton Johnston MD Aug 22, 2017 16:14
[2017-08-23] VITALS (13 sets, daily range): BP systolic 82–163; BP diastolic 50–78; PULSE 62–110; RESP 18–20; TEMP 97.3–97.9; O2SAT 97–100
[2017-08-23] MEDS: MORPHINE SULFATE 2 MG/ML INJ IV PUSH PRN ×4 (04:13→21:02)
[2017-08-23] MEDS: INSULIN ASPART SUPPLEMENTAL SCALE SQ SCH ×4 (08:00→21:00)
[2017-08-23] MEDS: FUROSEMIDE 40 MG TAB PO SCH (08:48)
[2017-08-23] MEDS: SPIRONOLACTONE 50 MG TAB PO SCH (08:48)
[2017-08-23] MEDS: PROPRANOLOL HCL 10 MG TAB PO SCH ×2 (08:49→21:01)
[2017-08-23] MEDS: FERROUS SULFATE 325 MG (65 MG ELEMENTAL IRON) TAB PO SCH ×2 (08:49→16:52)
[2017-08-23] MEDS: VANCOMYCIN 500 MG VIAL (FOR ORAL USE ONLY) PO SCH ×4 (08:50→21:01)
[2017-08-23] MEDS: SODIUM CHLORIDE 0.9% FLUSH 10 ML FLUSH IV FLUSH SCH ×2 (08:51→21:01)
[2017-08-23] MEDS: PANTOPRAZOLE INJ 80 MG in SODIUM CHLORIDE 0.9% INJ 100 ML IV SCH ×3 (09:59→21:12)
--- NOTE | 2017-08-23 14:30 | HHI.PR ---
Subjective Remarks Follow-up C. difficile colitis/AIDS/hilar mass 08/23/17-patient seen and examined, reports improvement of diarrheal episode. Currently afebrile Objective Vitals Vital Signs Date Time Temp Pulse Resp B/P (MAP) Pulse Ox O2 Delivery O2 Flow Rate FiO2 08/23/17 12:36 97.5 70 20 94/56 (69) 98 08/23/17 12:34 62 08/23/17 08:13 97.5 70 20 109/63 (78) 100 08/23/17 06:04 97.6 72 20 102/59 (73) 100 08/23/17 04:30 67 08/23/17 01:36 97.7 70 20 103/51 (68) 98 08/23/17 00:30 67 08/22/17 21:37 97.9 70 20 103/59 (74) 99 08/22/17 20:30 69 08/22/17 16:35 98.6 68 20 129/71 (90) 100 I/O 08/22/17 08/22/17 08/22/17 08/23/17 08/23/17 08/23/17 07:00 15:00 23:00 07:00 15:00 23:00 Intake Total 100 ml 100 ml Balance 100 ml 100 ml IV Total 100 ml 100 ml # Voids 2 Result Diagram: 08/22/17 0616 08/22/17 0616 Imaging Last Impressions Lymph Node Biopsy Ultrasound 08/22/17 0000 Signed Impressions: Service Date/Time: Tuesday, August 22, 2017 14:34 - CONCLUSION: Uncomplicated ultrasound guided needle biopsy. Grant Villasenor MD Consultation 08/22/17 0000 Signed Impressions: Service Date/Time: Tuesday, August 22, 2017 00:00 - CONCLUSION: The right hilar mass should be biopsied under bronchoscopy. If this is unsuccessful this could be attempted under percutaneous CT guidance if necessary. However if tissue sampling is needed at this time then ultrasound biopsy of either axillary adenopathy could be performed. Grant Villasenor MD CT Angiography 08/18/17 0000 Signed Impressions: Service Date/Time: July 13:50 - CONCLUSION: 1. Right hilar mass and multiple right sided pulmonary parenchymal nodular densities. Findings are suspicious for malignancy. Finding is likely amenable to CT- guided needle biopsy. 2. Enlarged bilateral axillary lymph nodes. 3. No evidence of pulmonary embolus. Adriel Helm MD Abdomen/Pelvis CT 08/18/17 0000 Signed Impressions: Service Date/Time: July 13:50 - CONCLUSION: 1. Diffuse nodularity of the liver capsule suggesting cirrhosis. No focal mass. 2. Evidence of portal venous hypertension with prominent collaterals in the splenic hilum and splenorenal space. 3. Enlarged left inguinal lymph node unchanged. 4. No significant change from prior study of 08/07/2017 Adriel Helm MD Chest X-Ray 08/16/17 0000 Signed Impressions: Service Date/Time: Wednesday, August 16, 2017 15:27 - CONCLUSION: Ill-defined right perihilar masslike opacity which may reflect developing perihilar airspace disease/atypical infection versus hilar adenopathy. Pako Easton MD Objective Remarks GENERAL: NAD and cachectic appearing female SKIN: Multiple rashes, ecchymoses covering extremities HEAD: Normocephalic. EYES: No scleral icterus. No injection or drainage. NECK: Supple, trachea midline. No JVD or lymphadenopathy. CARDIOVASCULAR: Regular rate and rhythm without murmurs, gallops, or rubs. RESPIRATORY: Breath sounds equal bilaterally. No accessory muscle use. GASTROINTESTINAL: Abdomen soft, non-tender, nondistended. MUSCULOSKELETAL: No cyanosis, or edema. BACK: Nontender without obvious deformity. No CVA tenderness. Procedures 08/19/17 EGD, colonoscopy A/P Assessment and Plan 52-year-old female with 1. C. difficile diarrhea: Continue oral vancomycin. Appreciate infectious disease, GI recommendations. 2. Severe anemia, symptomatic: Status post transfusion of 1 unit PRBCs. H/H improved. Stool Hemoccult negative. Continue PPI. 3. Hilar mass noted on chest x-ray: Chest CT done 06/28/17 showed mass, presumed inflammatory infiltrate. Appreciate pulmonology recommendations. Lymph node biopsy ultrasound Recommended CT-guided bronchoscopy of right hilum mass 4. HIV/AIDS: Appreciate infectious disease recommendations. 5. Rib fractures: Continue pain control. 6. FEN: Regular diet. 7. DVT prophylaxis: SCDs, ANGI hose. 8. Hematochezia, gastric mass, dysphagia: Appreciate GI recommendations. EGD showed significant esophagitis a large nodule. Continue PPI. 9. Poor long-term prognosis: Appreciate palliative care assistance. Grant Coto MD Aug 23, 2017 14:30
--- NOTE | 2017-08-23 19:03 | HHI.PR ---
Subjective Remarks 52 YOAA female with HIV,C.diff. anemia has lung mass Breathing better No Fever Good appetite Had LN bx, doing well Objective Vital Signs Vital Signs Date Time Temp Pulse Resp B/P (MAP) Pulse Ox O2 Delivery O2 Flow Rate FiO2 08/23/17 17:59 79 08/23/17 17:53 110/66 (81) 08/23/17 15:39 97.9 68 20 82/50 (61) 97 08/23/17 15:25 68 08/23/17 12:36 97.5 70 20 94/56 (69) 98 08/23/17 12:34 62 08/23/17 08:13 97.5 70 20 109/63 (78) 100 08/23/17 06:04 97.6 72 20 102/59 (73) 100 08/23/17 04:30 67 08/23/17 01:36 97.7 70 20 103/51 (68) 98 08/23/17 00:30 67 08/22/17 21:37 97.9 70 20 103/59 (74) 99 08/22/17 20:30 69 I/O 08/22/17 08/22/17 08/22/17 08/23/17 08/23/17 08/23/17 07:00 15:00 23:00 07:00 15:00 23:00 Intake Total 100 ml 100 ml 960 ml Balance 100 ml 100 ml 960 ml Intake Oral 960 ml IV Total 100 ml 100 ml # Voids 2 # Bowel Movements 2 Result Diagram: 08/22/17 0616 08/22/17 0616 Objective Remarks GENERAL: Thin built female,NAD SKIN: Warm and dry. HEAD: Normocephalic. EYES: No scleral icterus. No injection or drainage. NECK: Supple, trachea midline. No JVD or lymphadenopathy. CARDIOVASCULAR: Regular rate and rhythm without murmurs, gallops, or rubs. RESPIRATORY: Breath sounds equal bilaterally. No accessory muscle use. GASTROINTESTINAL: Abdomen soft, non-tender, nondistended. MUSCULOSKELETAL: No cyanosis, or edema. BACK: Nontender without obvious deformity. No CVA tenderness. A/P Assessment and Plan Lung Mass COPD C.diff inf Anemia HIV PLAN: Supplement 02 Aerosol nebs Abx per ID Bx result pending Dayton Johnston MD Aug 23, 2017 19:03
[2017-08-24] VITALS (7 sets, daily range): BP systolic 98–122; BP diastolic 55–65; PULSE 64–79; RESP 17–18; TEMP 97.7–98.3; O2SAT 97–99
[2017-08-24] MEDS: MORPHINE SULFATE 2 MG/ML INJ IV PUSH PRN ×4 (04:15→21:28)
[2017-08-24] MEDS: INSULIN ASPART SUPPLEMENTAL SCALE SQ SCH ×4 (08:00→21:00)
[2017-08-24] MEDS: PANTOPRAZOLE INJ 80 MG in SODIUM CHLORIDE 0.9% INJ 100 ML IV SCH ×2 (08:40→21:19)
[2017-08-24] MEDS: VANCOMYCIN 500 MG VIAL (FOR ORAL USE ONLY) PO SCH ×4 (08:42→21:19)
[2017-08-24] MEDS: PROPRANOLOL HCL 10 MG TAB PO SCH ×2 (08:44→21:19)
[2017-08-24] MEDS: SODIUM CHLORIDE 0.9% FLUSH 10 ML FLUSH IV FLUSH SCH ×2 (08:44→21:19)
[2017-08-24] MEDS: FUROSEMIDE 40 MG TAB PO SCH (08:45)
[2017-08-24] MEDS: FERROUS SULFATE 325 MG (65 MG ELEMENTAL IRON) TAB PO SCH ×2 (08:45→17:14)
[2017-08-24] MEDS: SPIRONOLACTONE 50 MG TAB PO SCH (09:00)
--- NOTE | 2017-08-24 11:08 | HHI.PR ---
Subjective Remarks Follow-up C. difficile colitis/AIDS/hilar mass 08/23/17-patient seen and examined, reports improvement of diarrheal episode. Currently afebrile 08/24/17-patient seen and examined, no acute event overnight. States no diarrhea over the past several days. Objective Vitals Vital Signs Date Time Temp Pulse Resp B/P (MAP) Pulse Ox O2 Delivery O2 Flow Rate FiO2 08/24/17 08:00 64 08/24/17 08:00 97.9 71 18 98/55 (69) 97 08/24/17 01:17 97.7 67 18 101/60 (74) 99 08/23/17 20:42 97.3 73 18 102/61 (75) 98 08/23/17 20:30 70 08/23/17 17:59 79 08/23/17 17:53 110/66 (81) 08/23/17 15:39 97.9 68 20 82/50 (61) 97 08/23/17 15:25 68 08/23/17 12:36 97.5 70 20 94/56 (69) 98 08/23/17 12:34 62 I/O 08/23/17 08/23/17 08/23/17 08/24/17 08/24/17 08/24/17 07:00 15:00 23:00 07:00 15:00 23:00 Intake Total 100 ml 100 ml 960 ml Balance 100 ml 100 ml 960 ml Intake Oral 960 ml IV Total 100 ml 100 ml # Voids 2 1 # Bowel Movements 2 1 Result Diagram: 08/22/1716 08/22/17 0616 Objective Remarks GENERAL: NAD and cachectic appearing female SKIN: Multiple rashes, ecchymoses covering extremities HEAD: Normocephalic. EYES: No scleral icterus. No injection or drainage. NECK: Supple, trachea midline. No JVD or lymphadenopathy. CARDIOVASCULAR: Regular rate and rhythm without murmurs, gallops, or rubs. RESPIRATORY: Breath sounds equal bilaterally. No accessory muscle use. GASTROINTESTINAL: Abdomen soft, non-tender, nondistended. MUSCULOSKELETAL: No cyanosis, or edema. BACK: Nontender without obvious deformity. No CVA tenderness. Procedures 08/19/17 EGD, colonoscopy A/P Assessment and Plan 52-year-old female with 1. C. difficile diarrhea: Continue oral vancomycin. Appreciate infectious disease, GI recommendations. 2. Severe anemia, symptomatic: Status post transfusion of 1 unit PRBCs. H/H improved. Stool Hemoccult negative. Continue PPI. 3. Hilar mass noted on chest x-ray: Chest CT done 06/28/17 showed mass, presumed inflammatory infiltrate. Appreciate pulmonology recommendations. s/p Lymph node biopsy ultrasound pending biopsy result 4. HIV/AIDS: Appreciate infectious disease recommendations. 5. Rib fractures: Continue pain control. 6. FEN: Regular diet. 7. DVT prophylaxis: ANGI Hagen. 8. Hematochezia, gastric mass, dysphagia: Appreciate GI recommendations. EGD showed significant esophagitis a large nodule. Continue PPI. 9. Poor long-term prognosis: Appreciate palliative care assistance. Grant Coto MD Aug 24, 2017 11:08
--- NOTE | 2017-08-24 12:34 | HHI.HCPN ---
Reason for visit a. To assist with evaluation and management of symptoms including: Diarrhea , pain, weight loss, weakness b. To assist medical decision maker(s) with: better understanding of current medical conditions; weighing benefits/burdens of medical treatment options; making medical treatment decisions. Subjective/Interval History Patient seen for follow-up of symptom management. She complains of some right axillary residual discomfort and intermittent sharp pains which occur with deep inspiration and movement in her lower rib margin, likely secondary to recent history of rib fractures. She continues to have diarrhea, but it is decreasing in frequency from 7 bowel movements daily on 08/20 to 2 bowel movements so far today. She is using her cane to ambulate in the room and states she feels better. It is difficult to evaluate her progress in weight loss as her admitting weight was estimated and no weight has been taken since admission. She is receiving nutritional supplements and says she is finishing all of her meals. She underwent right axillary lymph node biopsy yesterday. Chest CTA done 08/18 showed right hilar mass and multiple right-sided pulmonary parenchymal nodule densities, suspicious for malignancy. Enlarged bilateral axillary lymph nodes were also noted and it was determined that biopsy of the lymph node posed the least risk. That pathology is pending. During EGD, biopsy was taken of the gastric fundus and esophagus. Pathology reveals gastric mucosa with mild mucosal edema and chronic gastritis, negative for Helicobacter pylori from the stomach biopsy and esophagitis biopsy showed severe acute ulcerative esophagitis, negative for intestinal metaplasia, dysplasia or malignancy, negative for fungal organisms. . Family/friend interactions No family at bedside during this visitation. . Advance Directives Living Will: Never completed Health Care Surrogate: Copy in medical record Durable Power of Market Developer: Never completed Advance Directive Specifics Health Care Surrogate(s): She had previously completed HCS form designating Grant Ruelas as her primary and Brandon Munoz as alternate . . Documented care wishes: Patient had presented a previously signed DO NOT RESUSCITATE form. She felt at the time that she had a very short lifespan remaining, but no longer feels that way. . Objective Vital Signs Date Time Temp Pulse Resp B/P (MAP) Pulse Ox O2 Delivery O2 Flow Rate FiO2 08/24/17 08:00 64 08/24/17 08:00 97.9 71 18 98/55 (69) 97 08/24/17 01:17 97.7 67 18 101/60 (74) 99 08/23/17 20:42 97.3 73 18 102/61 (75) 98 08/23/17 20:30 70 08/23/17 17:59 79 08/23/17 17:53 110/66 (81) 08/23/17 15:39 97.9 68 20 82/50 (61) 97 08/23/17 15:25 68 08/23/17 12:36 97.5 70 20 94/56 (69) 98 08/23/17 12:34 62 Intake & Output 08/24/17 08/24/17 07:00 19:00 # Voids 1 # Bowel Movements 1 Physical Exam CONSTITUTIONAL/GENERAL: This is an ill appearing, cachectic female in no acute distress. TUBES/LINES/DRAINS: PIV's RFA. SKIN: Multiple small lesions seen on arms and legs. HEAD: Atraumatic. Normocephalic. CARDIOVASCULAR: Regular rate and rhythm without murmurs, gallops, or rubs. No JVD. Peripheral pulses symmetric. RESPIRATORY/CHEST: Symmetric, unlabored respirations. Clear to auscultation. Breath sounds equal bilaterally. No wheezes, rales, or rhonchi. GASTROINTESTINAL: Abdomen soft, non-tender, nondistended. No hepato-splenomegaly , or palpable masses. No guarding. Bowel sounds present. GENITOURINARY: Without palpable bladder distension. MUSCULOSKELETAL: Extremities without clubbing, cyanosis, or edema. Positive muscle wasting. No joint tenderness or effusion noted. No calf tenderness. No mottling or clubbing. NEUROLOGICAL: Awake and alert. Motor and sensory grossly within normal limits. Follows commands. Cognitively sharp. Moves all extremities. PSYCHIATRIC: No obvious anxiety/depression. no apparent hallucinations or other psychotic thought process. . Diagnostic Tests Laboratory Laboratory Tests Test 08/22/17 06:16 08/22/17 15:15 White Blood Count 2.8 TH/MM3 (4.0-11.0) Red Blood Count 3.48 MIL/MM3 (4.00-5.30) Hemoglobin 10.9 GM/DL (11.6-15.3) Hematocrit 30.6 % (35.0-46.0) Mean Corpuscular Volume 87.7 FL (80.0-100.0) Mean Corpuscular Hemoglobin 31.3 PG (27.0-34.0) Mean Corpuscular Hemoglobin Concent 35.7 % (32.0-36.0) Red Cell Distribution Width 16.2 % (11.6-17.2) Platelet Count 105 TH/MM3 (150-450) Mean Platelet Volume 9.1 FL (7.0-11.0) CBC Comment AUTO DIFF Differential Total Cells Counted 100 Neutrophils % (Manual) 79 % (16-70) Band Neutrophils % 5 % (0-6) Lymphocytes % 9 % (9-44) Monocytes % 7 % (0-8) Neutrophils # (Manual) 2.4 TH/MM3 (1.8-7.7) Differential Comment FINAL DIFF MANUAL Platelet Estimate LOW (NORMAL) Platelet Morphology Comment NORMAL (NORMAL) Blood Urea Nitrogen 7 MG/DL (7-18) Creatinine 0.85 MG/DL (0.50-1.00) Random Glucose 76 MG/DL (74-106) Calcium Level 8.0 MG/DL (8.5-10.1) Sodium Level 137 MEQ/L (136-145) Potassium Level 3.6 MEQ/L (3.5-5.1) Chloride Level 105 MEQ/L (98-107) Carbon Dioxide Level 26.0 MEQ/L (21.0-32.0) Anion Gap 6 MEQ/L (5-15) Estimat Glomerular Filtration Rate 85 ML/MIN (>89) . Result Diagram: 08/22/1716 08/22/17 0616 Microbiology Microbiology Date/Time Source Procedure Growth Status 08/16/17 20:15 Blood Peripheral Aerobic Blood Culture - Final NO GROWTH IN 5 DAYS Complete 08/16/17 20:15 Blood Peripheral Anaerobic Blood Culture - Final NO GROWTH IN 5 DAYS Complete 08/18/17 21:20 Stool Stool Stool Occult Blood (FLY) - Final HEMOCCULT NEGATIVE Complete . Imaging Last Impressions Lymph Node Biopsy Ultrasound 08/22/17 0000 Signed Impressions: Service Date/Time: Tuesday, August 22, 2017 14:34 - CONCLUSION: Uncomplicated ultrasound guided needle biopsy. Grant Villasenor MD Consultation 08/22/17 0000 Signed Impressions: Service Date/Time: Tuesday, August 22, 2017 00:00 - CONCLUSION: The right hilar mass should be biopsied under bronchoscopy. If this is unsuccessful this could be attempted under percutaneous CT guidance if necessary. However if tissue sampling is needed at this time then ultrasound biopsy of either axillary adenopathy could be performed. Grant Villasenor MD CT Angiography 08/18/17 0000 Signed Impressions: Service Date/Time: July 13:50 - CONCLUSION: 1. Right hilar mass and multiple right sided pulmonary parenchymal nodular densities. Findings are suspicious for malignancy. Finding is likely amenable to CT- guided needle biopsy. 2. Enlarged bilateral axillary lymph nodes. 3. No evidence of pulmonary embolus. Adriel Helm MD Abdomen/Pelvis CT 08/18/17 0000 Signed Impressions: Service Date/Time: July 13:50 - CONCLUSION: 1. Diffuse nodularity of the liver capsule suggesting cirrhosis. No focal mass. 2. Evidence of portal venous hypertension with prominent collaterals in the splenic hilum and splenorenal space. 3. Enlarged left inguinal lymph node unchanged. 4. No significant change from prior study of 08/07/2017 Adriel Helm MD Chest X-Ray 08/16/17 0000 Signed Impressions: Service Date/Time: Wednesday, August 16, 2017 15:27 - CONCLUSION: Ill-defined right perihilar masslike opacity which may reflect developing perihilar airspace disease/atypical infection versus hilar adenopathy. Pako Easton MD . Procedures 08/19/17: EGD with biopsy, colonoscopy 08/23/17: Right axillary lymph node biopsy. . Assessment and Plan Disease Oriented Problem List: (1) Dysphagia (2) Decrease in appetite (3) Chronic gastritis (4) Debility (5) Anemia (6) Esophageal stricture (7) Severe protein-calorie malnutrition (8) C. difficile colitis Symptom Scale: (1) Bloody diarrhea (2) Weakness (3) Dysphagia (4) Weight loss Pertinent Non-Medical Issues Psychosocial:She is born in [place] and completed high school through the 10th grade. 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 She was never and has no children. She has a partner for over 30 years, Brandon Munoz. Reports 17 siblings. Spiritual:States she is a Zoroastrian, not currently attending any local lutheran. Aware and accepting of the availability of supervisor esters and emulsifiers visits. Legal: Has designated her healthcare surrogates, currently wishes to be a DO NOT RESUSCITATE. She has no living will. Ethical issues impacting care: None known. . Important Contacts Grant Ruelas (primary) [phone] as HCS. Brandon Munoz as alternate [phone]. . Prognosis Her HIV/ARDS has been diagnosed as end-stage per Dr. Anaid Masterson's note. Her last CD4 count was less than 20 in January and in March 2017. She has been noncompliant with her medications and at this time has run out of her antiretrovirals. CT imaging has now identified a right hilar mass and multiple right-sided pulmonary parenchymal nodular densities suspicious for malignancy with enlarged bilateral axillary lymph nodes. She is cachectic and continues to lose weight. She has difficulty swallowing and is requiring repeated esophageal dilations. She has progressive weakness and has started having falls. She now presents with another episode of recurrent, resistant clostridium difficile infection, further compromised by her immunocompromised status and complicated by a mycobacterial infection. She is likely to continue to decline, have recurrent hospitalizations and suffer complications. . Code Status: No Code Plan PLAN: Legal decision maker: At this time patient appears to be able to make her own decisions. Her previous healthcare surrogate form designees were reviewed and she wishes to continue with her currently stated plan of having her nephew, Grant Ruelas, as her first health care surrogate and her longtime commissioning engineer, Brandon Munoz as her alternative healthcare surrogate. That form has been scanned into the system and is available in [employer]. Goals: Aggressive short of choosing not to be intubated or to undergo CPR CODE STATUS: DNR - patient signed a [place] DNR today after discussion and review of CODE STATUS. SYMPTOMS:Diarrhea, pain, weight loss, weakness * Diarrhea: She is receiving vancomycin oral solution 125 mg orally, 4 times a day. Infectious disease is following for further antibiotic management. Bowel movement frequency is decreasing from 7 bowel movements daily on 08/20 down to 2 bowel movements yesterday. * Pain: She complains of generalized pain in multiple body parts, likely multifactorial to include cachexia, neuropathy, recent falls, rib fractures. Tylenol and morphine 2 mg IV every 3 hours as needed are available. She has been receiving 2-3 doses of morphine daily. At this time her pain is reasonably well controlled at rest. * Weight loss/dysphasia: She states that she has continued to lose weight and was 105 pounds at her June 2017 admission. Current weight is estimated. No further weights have been obtained during this admission. Would recommend obtaining an accurate weight to further quantify the weight loss and following with daily weights. * Weakness: She is becoming progressively weaker, likely multifactorial to include advancing disease, poor nutrition, muscle wasting. She is able to ambulate in her room with a cane and is receiving nutritional supplements. There is also a suspicion of a malignant process noted in CT angiography. CT guided needle biopsy of right axillary lymph nodes were completed 08/23, pathology pending. Palliative care will continue to follow the patient during hospital course as condition evolves, to assist patient/decision-maker with understanding of their medical conditions, weighing benefits/burdens of treatment options, for clarification of goals of treatment. Additionally will assist with any symptoms of palliative concern. . Attestation To help prompt me to consider important information that might be impacting today's encounter and assessment, information from prior notes written by myself or my colleagues may have been "brought forward" into today's note. My signature on this note, however, is an attestation that I personally performed the exam, history, and/or decision-making noted today, and, unless otherwise indicated, the interactions with patient, family, and staff as well as the review of records all occurred today. I also attest that the listed assessment and stated plan reflect my best clinical judgment today based on the combination of historical information, prior notes, and today's exam/ interactions. When time spent is documented, it refers only to time spent today by the signer, or if indicated, combined time spent today by collaborating physician/nurse practitioner. . Lolis Zapata Aug 24, 2017 12:34
--- NOTE | 2017-08-24 17:48 | HHI.IDPN ---
Subjective Subjective Remarks is a 52 yo AAF with advanced HIV/AIDS (on HAART: ABC+ epivir+ dolutegravir and darunavir+ cobstat), followed by Dr Teague in outreach clinic. Her CD4 in October 2016 was < 20. She now presents with blood in stool, diarrhea, she has had several episodes of hypervirulent C.diff 027 +. She also has AFB+ stool on her last admission in January.She reports ongoing diarrhea off and on. She also reports dysphagia with feeling of pills being stuck in her throat. Vital signs on arrival to ED Blood pressure 105/59, heart rate 80, respiratory rate 16, oxygen saturation 97% on 2 L nasal cannula, afebrile. Her labs on presentation to ED show WBC 19.3, hemoglobin 7.9, hematocrit 23.6, platelets 129. After initial rehydration and administration of antibiotics, her follow-up labs showed WBC 15.4, hemoglobin 6.9, hematocrit 20.2, platelets 107. She received 2 units of packed red blood cells, 08/18 hemoglobin 11.7, hematocrit 33.5. Presenting chemistries showed sodium 138, potassium 3.7, BUN 14, creatinine 1.01, calcium 7.9, AST 69 ALT 67, alkaline phosphatase 131, total protein 9.3, albumin 2.1. Urinalysis indicated no culture. C. difficile PCR was positive. CXR showed an Ill-defined right perihilar masslike opacity which may reflect developing perihilar airspace disease/atypical infection versus hilar adenopathy. I ordered a stat CT angiography showed right hilar mass and multiple right-sided pulmonary parenchymal nodular densities. Findings are suspicious for malignancy. Finding is likely amenable to CT-guided needle biopsy. Enlarged bilateral axillary lymph nodes. No evidence of pulmonary embolus. CT abdomen and pelvis with contrast shows diffuse nodularity of the liver capsule, suggesting cirrhosis, no focal mass. Evidence of portal venous hypertension with prominent collaterals in the splenic hilum and splenorenal space. Enlarged left inguinal lymph node unchanged, no significant change from prior study of 08/07/17. ID consulted for evaluation and Mment of recurrent Cdiff in pt with HIV. Overnight events reviewed No fevers No rash Diarrhea resolved. Now formed stool. s/p axillary LN biopsy. Antibiotics Vanco oral Lines Line sites with no e.o infection Past Medical History HIV/AIDS History of recent C. difficile infection Cirrhosis with ascites History of GI bleeding and gastritis History of stroke 2 Pancreatitis. Past Surgical History Allergies: Coded Allergies: No Known Allergies (Verified Allergy, Unknown, 08/07/17) Objective . Vital Signs Date Time Temp Pulse Resp B/P (MAP) Pulse Ox O2 Delivery O2 Flow Rate FiO2 08/24/17 16:00 98.1 77 18 122/57 (78) 99 08/24/17 14:59 79 08/24/17 12:00 98.3 67 18 111/65 (80) 99 08/24/17 11:53 66 08/24/17 08:00 64 08/24/17 08:00 97.9 71 18 98/55 (69) 97 08/24/17 01:17 97.7 67 18 101/60 (74) 99 08/23/17 20:42 97.3 73 18 102/61 (75) 98 08/23/17 20:30 70 08/23/17 17:59 79 08/23/17 17:53 110/66 (81) 08/24/17 08/24/17 08/25/17 15:00 23:00 07:00 # Voids 5 # Bowel Movements 2 1 Imaging Last Impressions Lymph Node Biopsy Ultrasound 08/22/17 0000 Signed Impressions: Service Date/Time: Tuesday, August 22, 2017 14:34 - CONCLUSION: Uncomplicated ultrasound guided needle biopsy. Grant Villasenor MD Consultation 08/22/17 0000 Signed Impressions: Service Date/Time: Tuesday, August 22, 2017 00:00 - CONCLUSION: The right hilar mass should be biopsied under bronchoscopy. If this is unsuccessful this could be attempted under percutaneous CT guidance if necessary. However if tissue sampling is needed at this time then ultrasound biopsy of either axillary adenopathy could be performed. Grant Villasenor MD CT Angiography 08/18/17 0000 Signed Impressions: Service Date/Time: July 13:50 - CONCLUSION: 1. Right hilar mass and multiple right sided pulmonary parenchymal nodular densities. Findings are suspicious for malignancy. Finding is likely amenable to CT- guided needle biopsy. 2. Enlarged bilateral axillary lymph nodes. 3. No evidence of pulmonary embolus. Adriel Helm MD Abdomen/Pelvis CT 08/18/17 0000 Signed Impressions: Service Date/Time: July 13:50 - CONCLUSION: 1. Diffuse nodularity of the liver capsule suggesting cirrhosis. No focal mass. 2. Evidence of portal venous hypertension with prominent collaterals in the splenic hilum and splenorenal space. 3. Enlarged left inguinal lymph node unchanged. 4. No significant change from prior study of 08/07/2017 Adriel Helm MD Chest X-Ray 08/16/17 0000 Signed Impressions: Service Date/Time: Wednesday, August 16, 2017 15:27 - CONCLUSION: Ill-defined right perihilar masslike opacity which may reflect developing perihilar airspace disease/atypical infection versus hilar adenopathy. Pako Easton MD Physical Exam GENERAL: Thin built cachectic appearing patient, in no apparent distress. SKIN: No rashes, ecchymoses or lesions. Cool and dry. HEAD: Atraumatic. Normocephalic. No temporal or scalp tenderness. EYES: Pupils equal round and reactive. Extraocular motions intact. No scleral icterus. No injection or drainage. ENT: Nose without bleeding, purulent drainage or septal hematoma. Throat without erythema, tonsillar hypertrophy or exudate. Uvula midline. Airway patent. NECK: Trachea midline. Supple, nontender, no meningeal signs. CARDIOVASCULAR: HS audible. RESPIRATORY: Clear to auscultation. Breath sounds equal bilaterally. No wheezes , rales, or rhonchi. GASTROINTESTINAL: Abdomen soft, non-tender, diffuse abdominal tenderness. MUSCULOSKELETAL: Extremities without clubbing, cyanosis, or edema. NEUROLOGICAL: Awake and alert. Cranial nerves II through XII intact. Motor and sensory grossly within normal limits. Five out of 5 muscle strength in all muscle groups. Normal speech. Psych cooperative IV line sites with no e.o infection. Assessment & Plan Remarks Recurrent Cdiff Axillary LN joe s.p biopsy: MARLA, Fungal, Lymphoma, Kaposi Sarcoma Hilar Mass: MARLA, Fungal, Lymphoma, Kaposi Sarcoma H/o GI bleed prior to admission Advanced HIV/AIDS Alcoholic cirrhosis. Failure to thrive Dysphagia ? Esophagitis. Recs: Continue Vanco oral (stop date entered in [facility]) Appreciate pulm consult Appreciate Palliative care consult. Await Axillary LN biopsy. Please call me if back sooner will follow prn till then. Lynsey Metcalf MD Aug 24, 2017 17:48
--- NOTE | 2017-08-24 20:32 | HHI.PR ---
Subjective Remarks 52 YOAA female with HIV,C.diff. anemia has lung mass Breathing better No Fever Good appetite Objective Vital Signs Vital Signs Date Time Temp Pulse Resp B/P (MAP) Pulse Ox O2 Delivery O2 Flow Rate FiO2 08/24/17 16:00 98.1 77 18 122/57 (78) 99 08/24/17 14:59 79 08/24/17 12:00 98.3 67 18 111/65 (80) 99 08/24/17 11:53 66 08/24/17 08:00 64 08/24/17 08:00 97.9 71 18 98/55 (69) 97 08/24/17 01:17 97.7 67 18 101/60 (74) 99 08/23/17 20:42 97.3 73 18 102/61 (75) 98 I/O 08/23/17 08/23/17 08/23/17 08/24/17 08/24/17 08/24/17 07:00 15:00 23:00 07:00 15:00 23:00 Intake Total 100 ml 100 ml 960 ml Balance 100 ml 100 ml 960 ml Intake Oral 960 ml IV Total 100 ml 100 ml # Voids 2 5 # Bowel Movements 2 2 1 Result Diagram: 08/22/17 0616 08/22/17 0616 Objective Remarks GENERAL: Thin built female,NAD SKIN: Warm and dry. HEAD: Normocephalic. EYES: No scleral icterus. No injection or drainage. NECK: Supple, trachea midline. No JVD or lymphadenopathy. CARDIOVASCULAR: Regular rate and rhythm without murmurs, gallops, or rubs. RESPIRATORY: Breath sounds equal bilaterally. No accessory muscle use. GASTROINTESTINAL: Abdomen soft, non-tender, nondistended. MUSCULOSKELETAL: No cyanosis, or edema. BACK: Nontender without obvious deformity. No CVA tenderness. A/P Assessment and Plan Lung Mass COPD C.diff inf Anemia HIV PLAN: Supplement 02 Aerosol nebs Abx per ID Bx result still pending Dayton Johnston MD Aug 24, 2017 20:32
[2017-08-25] VITALS (7 sets, daily range): BP systolic 97–109; BP diastolic 52–60; PULSE 65–77; RESP 17–18; TEMP 97.8–98.7; O2SAT 96–99
[2017-08-25] MEDS: MORPHINE SULFATE 2 MG/ML INJ IV PUSH PRN ×5 (04:27→20:59)
[2017-08-25] MEDS: PANTOPRAZOLE INJ 80 MG in SODIUM CHLORIDE 0.9% INJ 100 ML IV SCH ×2 (06:13→16:04)
[2017-08-25] MEDS: INSULIN ASPART SUPPLEMENTAL SCALE SQ SCH ×4 (07:42→20:58)
[2017-08-25] MEDS: SODIUM CHLORIDE 0.9% FLUSH 10 ML FLUSH IV FLUSH SCH ×2 (07:42→20:49)
[2017-08-25] MEDS: VANCOMYCIN 500 MG VIAL (FOR ORAL USE ONLY) PO SCH ×4 (08:37→20:58)
[2017-08-25] MEDS: FUROSEMIDE 40 MG TAB PO SCH (08:38)
[2017-08-25] MEDS: PROPRANOLOL HCL 10 MG TAB PO SCH ×2 (08:38→20:57)
[2017-08-25] MEDS: SPIRONOLACTONE 50 MG TAB PO SCH (08:39)
[2017-08-25] MEDS: FERROUS SULFATE 325 MG (65 MG ELEMENTAL IRON) TAB PO SCH ×2 (08:39→17:47)
--- NOTE | 2017-08-25 12:08 | HHI.PR ---
Subjective Remarks Follow-up C. difficile colitis/AIDS/hilar mass 08/23/17-patient seen and examined, reports improvement of diarrheal episode. Currently afebrile 08/24/17-patient seen and examined, no acute event overnight. States no diarrhea over the past several days. 08/25/17-patient seen and examined ,stable and denies any shortness of breath. Objective Vitals Vital Signs Date Time Temp Pulse Resp B/P (MAP) Pulse Ox O2 Delivery O2 Flow Rate FiO2 08/25/17 11:50 97.8 73 18 97/52 (67) 96 08/25/17 07:58 97.8 72 17 97/54 (68) 99 08/25/17 04:00 98.2 69 17 101/56 (71) 99 08/25/17 00:00 97.9 77 18 106/56 (73) 98 08/24/17 20:00 97.7 74 17 108/61 (77) 98 08/24/17 20:00 75 08/24/17 16:00 98.1 77 18 122/57 (78) 99 08/24/17 14:59 79 I/O 08/24/17 08/24/17 08/24/17 08/25/17 08/25/17 08/25/17 06:59 14:59 22:59 06:59 14:59 22:59 # Voids 5 1 # Bowel Movements 2 1 0 Result Diagram: 08/22/1716 08/22/17 06 Objective Remarks GENERAL: NAD and cachectic appearing female SKIN: Multiple rashes, ecchymoses covering extremities HEAD: Normocephalic. EYES: No scleral icterus. No injection or drainage. NECK: Supple, trachea midline. No JVD or lymphadenopathy. CARDIOVASCULAR: Regular rate and rhythm without murmurs, gallops, or rubs. RESPIRATORY: Breath sounds equal bilaterally. No accessory muscle use. GASTROINTESTINAL: Abdomen soft, non-tender, nondistended. MUSCULOSKELETAL: No cyanosis, or edema. BACK: Nontender without obvious deformity. No CVA tenderness. Procedures 08/19/17 EGD, colonoscopy A/P Problem List: (1) C. difficile colitis ICD Code: A04.72 - Enterocolitis due to Clostridium difficile, not specified as recurrent Assessment and Plan 52-year-old female with 1. C. difficile diarrhea: Continue oral vancomycin. Appreciate infectious disease, GI recommendations. 2. Severe anemia, symptomatic: Status post transfusion of 1 unit PRBCs. H/H improved. Stool Hemoccult negative. Continue PPI. 3. Hilar mass noted on chest x-ray: Chest CT done 06/28/17 showed mass, presumed inflammatory infiltrate. Appreciate pulmonology recommendations. s/p Lymph node biopsy ultrasound pending biopsy result 4. HIV/AIDS: Appreciate infectious disease recommendations. 5. Rib fractures: Improving Continue pain control. 6. FEN: Regular diet. 7. DVT prophylaxis: ANGI Hagen. 8. Hematochezia, gastric mass, dysphagia: Appreciate GI recommendations. EGD showed significant esophagitis a large nodule. Continue PPI. 9. Poor long-term prognosis: Appreciate palliative care assistance. Grant Coto MD Aug 25, 2017 12:08
--- NOTE | 2017-08-25 20:05 | HHI.PR ---
Subjective Remarks 52 YOAA female with HIV,C.diff. anemia has lung mass Breathing better No Fever Objective Vital Signs Vital Signs Date Time Temp Pulse Resp B/P (MAP) Pulse Ox O2 Delivery O2 Flow Rate FiO2 08/25/17 16:24 98.4 71 18 109/60 (76) 97 08/25/17 11:50 97.8 73 18 97/52 (67) 96 08/25/17 07:58 97.8 72 17 97/54 (68) 99 08/25/17 04:00 98.2 69 17 101/56 (71) 99 08/25/17 00:00 97.9 77 18 106/56 (73) 98 I/O 08/24/17 08/24/17 08/24/17 08/25/17 08/25/17 08/25/17 07:00 15:00 23:00 07:00 15:00 23:00 Intake Total 820 ml Balance 820 ml Intake Oral 720 ml IV Total 100 ml # Voids 5 1 3 # Bowel Movements 2 1 0 Result Diagram: 08/22/1761508/22/17 0616 Objective Remarks GENERAL: Thin built female,NAD SKIN: Warm and dry. HEAD: Normocephalic. EYES: No scleral icterus. No injection or drainage. NECK: Supple, trachea midline. No JVD or lymphadenopathy. CARDIOVASCULAR: Regular rate and rhythm without murmurs, gallops, or rubs. RESPIRATORY: Breath sounds equal bilaterally. No accessory muscle use. GASTROINTESTINAL: Abdomen soft, non-tender, nondistended. MUSCULOSKELETAL: No cyanosis, or edema. BACK: Nontender without obvious deformity. No CVA tenderness. A/P Assessment and Plan Lung Mass COPD C.diff inf Anemia HIV PLAN: Supplement 02 Aerosol nebs Abx per ID Bx result still pending Dayton Johnston MD Aug 25, 2017 20:05
[2017-08-26] VITALS (11 sets, daily range): BP systolic 90–138; BP diastolic 52–68; PULSE 56–75; RESP 17–20; TEMP 97–98.1; O2SAT 96–100
[2017-08-26] MEDS: MORPHINE SULFATE 2 MG/ML INJ IV PUSH PRN ×5 (00:08→21:05)
[2017-08-26] MEDS: PANTOPRAZOLE INJ 80 MG in SODIUM CHLORIDE 0.9% INJ 100 ML IV SCH ×3 (01:56→22:00)
[2017-08-26] MEDS: INSULIN ASPART SUPPLEMENTAL SCALE SQ SCH ×4 (08:00→21:00)
[2017-08-26] MEDS: PROPRANOLOL HCL 10 MG TAB PO SCH ×2 (08:21→21:00)
[2017-08-26] MEDS: FUROSEMIDE 40 MG TAB PO SCH (08:21)
[2017-08-26] MEDS: SPIRONOLACTONE 50 MG TAB PO SCH (08:21)
[2017-08-26] MEDS: VANCOMYCIN 500 MG VIAL (FOR ORAL USE ONLY) PO SCH ×4 (08:58→21:05)
[2017-08-26] MEDS: FERROUS SULFATE 325 MG (65 MG ELEMENTAL IRON) TAB PO SCH ×2 (08:58→17:33)
[2017-08-26] MEDS: SODIUM CHLORIDE 0.9% FLUSH 10 ML FLUSH IV FLUSH SCH ×2 (08:58→21:06)
--- NOTE | 2017-08-26 09:25 | HHI.PR ---
Subjective Remarks Follow-up C. difficile colitis/AIDS/hilar mass 08/23/17-patient seen and examined, reports improvement of diarrheal episode. Currently afebrile 08/24/17-patient seen and examined, no acute event overnight. States no diarrhea over the past several days. 08/25/17-patient seen and examined ,stable and denies any shortness of breath. 08/26/17-patient seen and examined, biopsy report pending and patient denies any chest pain or shortness of breath.. No diarrheal episode Objective Vitals Vital Signs Date Time Temp Pulse Resp B/P (MAP) Pulse Ox O2 Delivery O2 Flow Rate FiO2 08/26/17 08:20 16 08/26/17 08:00 97.9 68 17 102/68 (79) 100 08/26/17 06:00 97.0 64 17 99/59 (72) 98 08/26/17 00:20 98.1 64 19 138/64 (88) 96 08/25/17 20:00 98.7 75 18 97/52 (67) 97 08/25/17 19:49 65 08/25/17 16:24 98.4 71 18 109/60 (76) 97 08/25/17 11:50 97.8 73 18 97/52 (67) 96 I/O 08/25/17 08/25/17 08/25/17 08/26/17 08/26/17 08/26/17 07:00 15:00 23:00 07:00 15:00 23:00 Intake Total 1620 ml 1383 ml Balance 1620 ml 1383 ml Intake Oral 1520 ml 1000 ml IV Total 100 ml 383 ml # Voids 1 4 3 # Bowel Movements 0 0 0 Result Diagram: 08/22/17 0616 08/22/17 0616 Imaging Last Impressions Lymph Node Biopsy Ultrasound 08/22/17 0000 Signed Impressions: Service Date/Time: Tuesday, August 22, 2017 14:34 - CONCLUSION: Uncomplicated ultrasound guided needle biopsy. Grant Villasenor MD Consultation 08/22/17 0000 Signed Impressions: Service Date/Time: Tuesday, August 22, 2017 00:00 - CONCLUSION: The right hilar mass should be biopsied under bronchoscopy. If this is unsuccessful this could be attempted under percutaneous CT guidance if necessary. However if tissue sampling is needed at this time then ultrasound biopsy of either axillary adenopathy could be performed. Grant Villasenor MD CT Angiography 08/18/17 0000 Signed Impressions: Service Date/Time: July 13:50 - CONCLUSION: 1. Right hilar mass and multiple right sided pulmonary parenchymal nodular densities. Findings are suspicious for malignancy. Finding is likely amenable to CT- guided needle biopsy. 2. Enlarged bilateral axillary lymph nodes. 3. No evidence of pulmonary embolus. Adriel Helm MD Abdomen/Pelvis CT 08/18/17 0000 Signed Impressions: Service Date/Time: July 13:50 - CONCLUSION: 1. Diffuse nodularity of the liver capsule suggesting cirrhosis. No focal mass. 2. Evidence of portal venous hypertension with prominent collaterals in the splenic hilum and splenorenal space. 3. Enlarged left inguinal lymph node unchanged. 4. No significant change from prior study of 08/07/2017 Adriel Helm MD Chest X-Ray 08/16/17 0000 Signed Impressions: Service Date/Time: Wednesday, August 16, 2017 15:27 - CONCLUSION: Ill-defined right perihilar masslike opacity which may reflect developing perihilar airspace disease/atypical infection versus hilar adenopathy. Pako Easton MD Objective Remarks GENERAL: NAD and cachectic appearing female SKIN: Multiple rashes, ecchymoses covering extremities HEAD: Normocephalic. EYES: No scleral icterus. No injection or drainage. NECK: Supple, trachea midline. No JVD or lymphadenopathy. CARDIOVASCULAR: Regular rate and rhythm without murmurs, gallops, or rubs. RESPIRATORY: Breath sounds equal bilaterally. No accessory muscle use. GASTROINTESTINAL: Abdomen soft, non-tender, nondistended. MUSCULOSKELETAL: No cyanosis, or edema. BACK: Nontender without obvious deformity. No CVA tenderness. Procedures 08/19/17 EGD, colonoscopy A/P Problem List: (1) C. difficile colitis ICD Code: A04.72 - Enterocolitis due to Clostridium difficile, not specified as recurrent Assessment and Plan 52-year-old female with 1. C. difficile diarrhea: Continue oral vancomycin. Appreciate infectious disease, GI recommendations. 2. Severe anemia, symptomatic-resolved Status post transfusion of 1 unit PRBCs. Continue PPI. 3. Hilar mass noted on chest x-ray: Chest CT done 06/28/17 showed mass, presumed inflammatory infiltrate. Appreciate pulmonology recommendations. s/p Lymph node biopsy ultrasound pending biopsy result 4. HIV/AIDS: Appreciate infectious disease recommendations. 5. Rib fractures: Improving Continue pain control. 6. FEN: Regular diet. 7. DVT prophylaxis: Hieu, ANGI adams. 8. Hematochezia, gastric mass, dysphagia: Appreciate GI recommendations. EGD showed significant esophagitis a large nodule. Continue PPI. 9. Poor long-term prognosis: Appreciate palliative care assistance. Grant Coto MD Aug 26, 2017 09:25
--- NOTE | 2017-08-26 17:39 | HHI.PR ---
Subjective Remarks 52 YOAA female with HIV,C.diff. anemia has lung mass Breathing better No Fever Objective Vital Signs Vital Signs Date Time Temp Pulse Resp B/P (MAP) Pulse Ox O2 Delivery O2 Flow Rate FiO2 08/26/17 16:45 16 08/26/17 16:00 97.9 66 17 108/56 (73) 100 08/26/17 12:06 71 08/26/17 12:00 97.8 62 17 90/52 (65) 99 08/26/17 08:03 56 08/26/17 08:00 97.9 68 17 102/68 (79) 100 08/26/17 06:00 97.0 64 17 99/59 (72) 98 08/26/17 00:20 98.1 64 19 138/64 (88) 96 08/25/17 20:00 98.7 75 18 97/52 (67) 97 08/25/17 19:49 65 I/O 08/25/17 08/25/17 08/25/17 08/26/17 08/26/17 08/26/17 07:00 15:00 23:00 07:00 15:00 23:00 Intake Total 1620 ml 1383 ml Balance 1620 ml 1383 ml Intake Oral 1520 ml 1000 ml IV Total 100 ml 383 ml # Voids 1 4 3 # Bowel Movements 0 0 0 Result Diagram: 08/22/1716 08/22/17 0616 Objective Remarks GENERAL: Thin built female,NAD SKIN: Warm and dry. HEAD: Normocephalic. EYES: No scleral icterus. No injection or drainage. NECK: Supple, trachea midline. No JVD or lymphadenopathy. CARDIOVASCULAR: Regular rate and rhythm without murmurs, gallops, or rubs. RESPIRATORY: Breath sounds equal bilaterally. No accessory muscle use. GASTROINTESTINAL: Abdomen soft, non-tender, nondistended. MUSCULOSKELETAL: No cyanosis, or edema. BACK: Nontender without obvious deformity. No CVA tenderness. A/P Assessment and Plan Lung Mass COPD C.diff inf Anemia HIV PLAN: Supplement 02 Aerosol nebs Abx per ID Bx result still pending DW pt Available prn over weekend Dayton Johnston MD Aug 26, 2017 17:39
--- NOTE | 2017-08-26 20:40 | HHI.PR ---
Addendum to Inpatient Note Addendum Reason: Additional Documentation Additional Information Axillary LN appears to be of non infectious etiology. Path recommends excisional biopsy. Please consider general surgery consult if patient agreeable to address this. Please d.w if he would like to get bronch or CT guided lung biopsy. Since no infectious process in axillary will sign off. Please complete the recommended course for Cdiff infection with oral vanco. Will sign off please call back if any change in clinical condition or questions. Lynsey Metcalf MD Aug 26, 2017 20:40
[2017-08-27] VITALS (8 sets, daily range): BP systolic 101–115; BP diastolic 51–61; PULSE 61–75; RESP 17–20; TEMP 97.6–97.9; O2SAT 98–100
[2017-08-27] MEDS: MORPHINE SULFATE 2 MG/ML INJ IV PUSH PRN ×4 (01:50→16:53)
[2017-08-27] MEDS: INSULIN ASPART SUPPLEMENTAL SCALE SQ SCH ×3 (08:09→16:51)
[2017-08-27] MEDS: FERROUS SULFATE 325 MG (65 MG ELEMENTAL IRON) TAB PO SCH ×2 (08:30→16:53)
[2017-08-27] MEDS: PANTOPRAZOLE INJ 80 MG in SODIUM CHLORIDE 0.9% INJ 100 ML IV SCH ×2 (08:30→16:53)
[2017-08-27] MEDS: PROPRANOLOL HCL 10 MG TAB PO SCH (08:31)
[2017-08-27] MEDS: VANCOMYCIN 500 MG VIAL (FOR ORAL USE ONLY) PO SCH ×4 (08:31→17:52)
[2017-08-27] MEDS: SODIUM CHLORIDE 0.9% FLUSH 10 ML FLUSH IV FLUSH SCH (08:32)
[2017-08-27] MEDS: FUROSEMIDE 40 MG TAB PO SCH (08:33)
[2017-08-27] MEDS: SPIRONOLACTONE 50 MG TAB PO SCH (08:33)
--- NOTE | 2017-08-27 09:32 | HHI.PR ---
Subjective Remarks Follow-up C. difficile colitis/AIDS/hilar mass 08/23/17-patient seen and examined, reports improvement of diarrheal episode. Currently afebrile 08/24/17-patient seen and examined, no acute event overnight. States no diarrhea over the past several days. 08/25/17-patient seen and examined ,stable and denies any shortness of breath. 08/26/17-patient seen and examined, biopsy report pending and patient denies any chest pain or shortness of breath.. No diarrheal episode 08/27/17-patient seen and examined, lymph node biopsy report in and not infectious process. Patient stable and no complaints. Would like to go home. Objective Vitals Vital Signs Date Time Temp Pulse Resp B/P (MAP) Pulse Ox O2 Delivery O2 Flow Rate FiO2 08/27/17 08:00 97.9 61 17 101/51 (68) 99 08/27/17 05:56 97.6 75 20 112/59 (76) 100 08/27/17 03:42 61 08/27/17 00:56 97.6 65 20 115/61 (79) 100 08/26/17 23:48 71 08/26/17 20:41 97.7 72 20 111/67 (82) 99 08/26/17 19:47 65 08/26/17 16:45 16 08/26/17 16:04 75 08/26/17 16:00 97.9 66 17 108/56 (73) 100 08/26/17 12:06 71 08/26/17 12:00 97.8 62 17 90/52 (65) 99 I/O 08/26/17 08/26/17 08/26/17 08/27/17 08/27/17 08/27/17 07:00 15:00 23:00 07:00 15:00 23:00 Intake Total 1383 ml Balance 1383 ml Intake Oral 1000 ml IV Total 383 ml # Voids 3 2 # Bowel Movements 0 1 Imaging Last Impressions Lymph Node Biopsy Ultrasound 08/22/17 0000 Signed Impressions: Service Date/Time: Tuesday, August 22, 2017 14:34 - CONCLUSION: Uncomplicated ultrasound guided needle biopsy. Grant Villasenor MD Consultation 08/22/17 0000 Signed Impressions: Service Date/Time: Tuesday, August 22, 2017 00:00 - CONCLUSION: The right hilar mass should be biopsied under bronchoscopy. If this is unsuccessful this could be attempted under percutaneous CT guidance if necessary. However if tissue sampling is needed at this time then ultrasound biopsy of either axillary adenopathy could be performed. Grant Villasenor MD CT Angiography 08/18/17 0000 Signed Impressions: Service Date/Time: July 13:50 - CONCLUSION: 1. Right hilar mass and multiple right sided pulmonary parenchymal nodular densities. Findings are suspicious for malignancy. Finding is likely amenable to CT- guided needle biopsy. 2. Enlarged bilateral axillary lymph nodes. 3. No evidence of pulmonary embolus. Adriel Helm MD Abdomen/Pelvis CT 08/18/17 0000 Signed Impressions: Service Date/Time: July 13:50 - CONCLUSION: 1. Diffuse nodularity of the liver capsule suggesting cirrhosis. No focal mass. 2. Evidence of portal venous hypertension with prominent collaterals in the splenic hilum and splenorenal space. 3. Enlarged left inguinal lymph node unchanged. 4. No significant change from prior study of 08/07/2017 Adriel Helm MD Chest X-Ray 08/16/17 0000 Signed Impressions: Service Date/Time: Wednesday, August 16, 2017 15:27 - CONCLUSION: Ill-defined right perihilar masslike opacity which may reflect developing perihilar airspace disease/atypical infection versus hilar adenopathy. Pako Easton MD Objective Remarks GENERAL: NAD and cachectic appearing female SKIN: Multiple rashes, ecchymoses covering extremities HEAD: Normocephalic. EYES: No scleral icterus. No injection or drainage. NECK: Supple, trachea midline. No JVD or lymphadenopathy. CARDIOVASCULAR: Regular rate and rhythm without murmurs, gallops, or rubs. RESPIRATORY: Breath sounds equal bilaterally. No accessory muscle use. GASTROINTESTINAL: Abdomen soft, non-tender, nondistended. MUSCULOSKELETAL: No cyanosis, or edema. BACK: Nontender without obvious deformity. No CVA tenderness. Procedures 08/19/17 EGD, colonoscopy A/P Problem List: (1) C. difficile colitis ICD Code: A04.72 - Enterocolitis due to Clostridium difficile, not specified as recurrent Assessment and Plan 52-year-old female with 1. C. difficile diarrhea: Continue oral vancomycin. Appreciate infectious disease, GI recommendations. 2. Severe anemia, symptomatic-resolved Status post transfusion of 1 unit PRBCs. Continue PPI. 3. Hilar mass noted on chest x-ray: Chest CT done 06/28/17 showed mass, presumed inflammatory infiltrate. Appreciate pulmonology recommendations. s/p Lymph node biopsy ultrasound with biopsy positive for atypical lymphoplasmacytic infiltrate and fibrosis 4. HIV/AIDS: Appreciate infectious disease recommendations. 5. Rib fractures: Improving Continue pain control. 6. FEN: Regular diet. 7. DVT prophylaxis: ANGI Hagen. 8. Hematochezia, gastric mass, dysphagia: Appreciate GI recommendations. EGD showed significant esophagitis a large nodule. Continue PPI. 9. Poor long-term prognosis: Appreciate palliative care assistance. Grant Coto MD Aug 27, 2017 09:32
[2017-08-27] MEDS ORDERED: PROT40TA PO (16:38)
[2017-08-27] MEDS ORDERED: VANC125C3 PO (16:38)
--- NOTE | 2017-08-27 16:42 | HHI.DS ---
Discharge Summary Admission Date Aug 16, 2017 at 20:55 Discharge Date: Aug 27, 2017 Admitting Diagnosis Diarrhea, leukocytosis, r/o c. diff (1) C. difficile colitis ICD Code: A04.72 - Enterocolitis due to Clostridium difficile, not specified as recurrent Procedures 08/19/17 EGD, colonoscopy Brief History - From Admission 52-year-old female with a past medical history significant for HIV (CD4 count less than 20 on 03/29/17), cirrhosis with gastric mass, history of resistant C. difficile colitis and recent treatment with Keflex for urinary tract infection presents to the emergency department for the evaluation of diarrhea. The patient reports the diarrhea began last night and she has had approximately 8 episodes of loose stools. She was told by her home health nurse that she should report to the emergency department for evaluation of her diarrhea as it could be C. difficile. 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 She endorses subjective chills with accompanying fatigue/weakness and shortness of breath. The patient is not currently on antiretroviral medication as she ran out of it last . Does not know when her last CD4 count was done. In the emergency department, the patient was found to have a leukocytosis of 19.3 and was severely anemic at 7.9/23.6 (H&H 10.1/29.9 on 08/07/17). Chest x- ray with hilar adenopathy versus atypical infection, appears unchanged from previous. Vital signs: Temperature 98.1, pulse 95, respirations 13, BP 122/65, pulse ox 100% on room air. Imaging Last Impressions Lymph Node Biopsy Ultrasound 08/22/17 0000 Signed Impressions: Service Date/Time: Tuesday, August 22, 2017 14:34 - CONCLUSION: Uncomplicated ultrasound guided needle biopsy. Grant Villasenor MD Consultation 08/22/17 0000 Signed Impressions: Service Date/Time: Tuesday, August 22, 2017 00:00 - CONCLUSION: The right hilar mass should be biopsied under bronchoscopy. If this is unsuccessful this could be attempted under percutaneous CT guidance if necessary. However if tissue sampling is needed at this time then ultrasound biopsy of either axillary adenopathy could be performed. Grant Villasenor MD CT Angiography 08/18/17 0000 Signed Impressions: Service Date/Time: July 13:50 - CONCLUSION: 1. Right hilar mass and multiple right sided pulmonary parenchymal nodular densities. Findings are suspicious for malignancy. Finding is likely amenable to CT- guided needle biopsy. 2. Enlarged bilateral axillary lymph nodes. 3. No evidence of pulmonary embolus. Adriel Helm MD Abdomen/Pelvis CT 08/18/17 0000 Signed Impressions: Service Date/Time: July 13:50 - CONCLUSION: 1. Diffuse nodularity of the liver capsule suggesting cirrhosis. No focal mass. 2. Evidence of portal venous hypertension with prominent collaterals in the splenic hilum and splenorenal space. 3. Enlarged left inguinal lymph node unchanged. 4. No significant change from prior study of 08/07/2017 Adriel Helm MD Chest X-Ray 08/16/17 0000 Signed Impressions: Service Date/Time: Wednesday, August 16, 2017 15:27 - CONCLUSION: Ill-defined right perihilar masslike opacity which may reflect developing perihilar airspace disease/atypical infection versus hilar adenopathy. Pako Easton MD PE at Discharge GENERAL: NAD and cachectic appearing female SKIN: Multiple rashes, ecchymoses covering extremities HEAD: Normocephalic. EYES: No scleral icterus. No injection or drainage. NECK: Supple, trachea midline. No JVD or lymphadenopathy. CARDIOVASCULAR: Regular rate and rhythm without murmurs, gallops, or rubs. RESPIRATORY: Breath sounds equal bilaterally. No accessory muscle use. GASTROINTESTINAL: Abdomen soft, non-tender, nondistended. MUSCULOSKELETAL: No cyanosis, or edema. BACK: Nontender without obvious deformity. No CVA tenderness. Hospital Course While in hospital, patient was treated for: 1. C. difficile diarrhea: Treated oral vancomycin. Appreciate infectious disease, GI recommendations. 2. Severe anemia, symptomatic-resolved Status post transfusion of 1 unit PRBCs. Treated with PPI. 3. Hilar mass noted on chest x-ray: Chest CT done 06/28/17 showed mass, presumed inflammatory infiltrate. Appreciate pulmonology recommendations. s/p Lymph node biopsy ultrasound with biopsy positive for atypical lymphoplasmacytic infiltrate and fibrosis 4. HIV/AIDS: Appreciate infectious disease recommendations. 5. Rib fractures: Received adequate pain control. 6. FEN: Regular diet. 7. DVT prophylaxis: SCDs, ANGI adams. 8. Hematochezia, gastric mass, dysphagia: Appreciate GI recommendations. EGD showed significant esophagitis a large nodule. Continue PPI. 9. Poor long-term prognosis: Appreciate palliative care assistance. Pt Condition on Discharge: Stable Discharge Disposition: Discharge Home Discharge Time: <= 30 minutes Discharge Instructions DIET: Follow Instructions for: As Tolerated, No Restrictions Activities you can perform: Regular-No Restrictions Follow up Referrals: PCP Follow-up - 1 Week Pulmonology New Medications: Pantoprazole (Protonix) 40 Mg Tab 40 MG PO DAILY for Reflux, #30 TAB 0 Refills Vancomycin (Vancomycin) 125 Mg Cap 125 MG PO QID for Infection, #12 CAP 0 Refills Continued Medications: Ferrous Sulfate (Ferrous Sulfate) 325 Mg (65 Mg Iron) Tablet 325 MG PO BIDPC for Nutritional Supplement, #60 TAB 0 Refills Furosemide (Furosemide) 40 Mg Tab 40 MG PO DAILY for Cirrhosis, #30 TAB Propranolol (Propranolol) 10 Mg Tab 10 MG PO Q12HR for Blood Pressure Management, #60 TAB Spironolactone (Aldactone) 50 Mg Tab 50 MG PO DAILY for Blood Pressure Management, #30 TAB Discontinued Medications: Cephalexin (Keflex) 500 Mg Cap 500 MG PO Q12H for Infection for 7 Days, #14 CAP 0 Refills Metoprolol Tartrate (Metoprolol Tartrate) 25 Mg Tab 25 MG PO BID, #60 TAB 0 Refills Grant Coto MD Aug 27, 2017 16:42
--- NOTE | 2017-08-28 10:13 | HHI.FF ---
Face to Face Verification Diagnosis: (1) Clostridium difficile diarrhea (2) AIDS (acquired immune deficiency syndrome) (3) Hilar mass Physical Therapy Order: Evaluate and Treat Home Health Nursing Order: Signs/symptoms of disease process I have seen patient Epifanio Helm on 08/28/17. My clinical findings support the need for the requested home health care services because: Deconditioned w/ increased weakness I certify that my clinical findings support that this patient is homebound because: Poor cardiac reserve Grant Coto MD Aug 28, 2017 10:13
== END 2017-08-27 19:29 | disposition home or self-care (01) | DRG 977 ==
LOC: NEPE 14:48 → NEDA 20:55 → NEPFCDU 22:18 → N05A 08-22 15:59
PROVIDERS: ADMIT Hospitalist; ATTEND Hospitalist
PROC: 30233N1 Transfusion of Nonautologous Red Blood Cells into Peripheral Vein, Percutaneous Approach (ICD-10-PCS; 2017-08-17)
PROC: 0DB68ZX Excision of Stomach, Via Natural or Artificial Opening Endoscopic, Diagnostic (ICD-10-PCS; 2017-08-19)
PROC: 0DB38ZX Excision of Lower Esophagus, Via Natural or Artificial Opening Endoscopic, Diagnostic (ICD-10-PCS; 2017-08-19)
PROC: 0DJD8ZZ Inspection of Lower Intestinal Tract, Via Natural or Artificial Opening Endoscopic (ICD-10-PCS; 2017-08-19)
PROC: 07D53ZX Extraction of Right Axillary Lymphatic, Percutaneous Approach, Diagnostic (ICD-10-PCS; principal; 2017-08-22)
DX: B20 Human immunodeficiency virus [HIV] disease (principal); K76.6 Portal hypertension; E43 Unspecified severe protein-calorie malnutrition; R64 Cachexia; R18.8 Other ascites; E11.40 Type 2 diabetes mellitus with diabetic neuropathy, unspecified; K29.51 Unspecified chronic gastritis with bleeding; A04.71 Enterocolitis due to Clostridium difficile, recurrent; K22.10 Ulcer of esophagus without bleeding; Z68.1 Body mass index [BMI] 19.9 or less, adult; K70.30 Alcoholic cirrhosis of liver without ascites; K21.0 Gastro-esophageal reflux disease with esophagitis; D63.8 Anemia in other chronic diseases classified elsewhere; J44.9 Chronic obstructive pulmonary disease, unspecified; I89.8 Other specified noninfective disorders of lymphatic vessels and lymph nodes; R47.02 Dysphasia; R62.7 Adult failure to thrive; F10.10 Alcohol abuse, uncomplicated; I10 Essential (primary) hypertension; F14.10 Cocaine abuse, uncomplicated; F32.9 Major depressive disorder, single episode, unspecified; S22.41XD Multiple fractures of ribs, right side, subsequent encounter for fracture with routine healing; W19.XXXD Unspecified fall, subsequent encounter; Z66 Do not resuscitate; Z86.010 Personal history of colon polyps; Z86.73 Personal history of transient ischemic attack (TIA), and cerebral infarction without residual deficits; Z87.891 Personal history of nicotine dependence; Z91.14 Patient's other noncompliance with medication regimen
CPT/HCPCS: 36430; 38505; 71046; 71275; 74177; 76937; 76942; 80048; 80053; 81001; 82272; 82948; 83605; 85007; 85014; 85018; 85025; 85027; 85610; 85730; 86850; 86900; 86901; 86920; 87040; 87205; 87493; 87506; 88184; 88185; 88305; 88307; 88312; 88341; 88342; 88361; C9113; J2270; J2405; J2543; J3370; J7040; J7050; P9016; Q9963; Q9967

== ENCOUNTER 2017-09-05 19:41 | Inpatient (IN) | payer MEDICARE, MEDICAID ==
[~2017-09-05] VITALS: Ht 162.6 cm; Wt 55.9 kg
[~2017-09-05 19:41] MED LIST changes: -CEPH-460 PO; -METO25TA3 PO; +PROT40TA PO; +VANC125C3 PO
[2017-09-05 19:44] VITALS: BP 102/55; PULSE 102; RESP 16; TEMP 98.3; O2SAT 98
[2017-09-05] MEDS ORDERED: ONDANSETRON HCL 4 MG/2 ML VIAL IV PUSH ONE (21:15)
[2017-09-05] MEDS ORDERED: SODIUM CHLOR 0.9% 1000 ML INJ 1,000 ML IV ONE ×2 (21:15→23:15)
[2017-09-05] MEDS ORDERED: MORPHINE SULFATE 2 MG/ML INJ IV PUSH ONE ×2 (21:15→23:15)
--- NOTE | 2017-09-05 21:17 | PD ---
Physical Exam Narrative I, Dr. Martinez, have reviewed the advance practice practitioner's documentation and am in agreement, met with the patient face to face, made the diagnosis, and the medical decision making was done by me. *My assessment and Findings: Cdiff colitis vs. megacolon 52yo F with AIDS (as per last note, CD4 count less than 20 03/2017), cirrhosis with gastric mass, h/o resistant cdiff colitis here with c/o persistent diarrhea even though she took her vancomycin. +Nausea. +Tactile fever. + Abdominal pain since yesterday. Pt said it is left sided but tender diffusely on exam. Pt was recently admitted 08/16-08/27/17 for cdiff diarrhea and had oral vancomycin. Also had severe anemia s/p transfusion of 1 PRBC. 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 Pt is cachetic appearing. Labs reviewed, WBC 5.8. H/H 11/32.6 which is better than prior. Thrombocytopenia at 61,000 which is new for her. 41% bands. Lactic acid elevated at 4.8, pt received 2 liters of NS IVF. BP and HR has improved. AST and alk phos elevated as well. UA showed trace leukocyte. CXR shoed slight increase in right perihilar airspace consolidation compared to Aug 07 most characteristic of pneumonia. Pt is always sob and is saturating well. However, will cover with zosyn. CT a/p showed diffuse bowel wall thickening likely colitis. Pt given vancomycin oral and metronidazole. Cdiff positive from stool. Discussed with Dr. Escamilla and accepted to her service. Pt given zofran for nausea and that has helped. Pt also given morphine for pain with improvement. Data Data Last Documented VS Vital Signs Date Time Temp Pulse Resp B/P (MAP) Pulse Ox O2 Delivery O2 Flow Rate FiO2 09/05/17 23:00 96 20 135/70 (91) 95 Room Air 09/05/17 19:44 98.3 Orders Orders Complete Blood Count With Diff (09/05/17 21:05) Comprehensive Metabolic Panel (09/05/17 21:05) Prothrombin Time / Inr (Pt) (09/05/17 21:05) Act Partial Throm Time (Ptt) (09/05/17 21:05) Blood Culture (09/05/17 21:05) Lipase (09/05/17 21:05) Urinalysis - C+S If Indicated (09/05/17 21:05) Magnesium (Mg) (09/05/17 21:05) C Diff Toxin Pcr (09/05/17 21:05) Chest, Single Ap (09/05/17 21:05) Ct Abd/Pel W Iv Contrast(Rout) (09/05/17 21:05) Iv Access Insert/Monitor (09/05/17 21:05) Ecg Monitoring (09/05/17 21:05) Oximetry (09/05/17 21:05) Stool Ova And Parasite Screen (09/05/17 21:05) Stool Wbc (Leukocytes) (09/05/17 21:05) Lactic Acid Sepsis Protocol (09/05/17 21:05) Sodium Chlor 0.9% 1000 Ml Inj (Ns 1000 M (09/05/17 21:15) Morphine Inj (Morphine Inj) (09/05/17 21:15) Ondansetron Inj (Zofran Inj) (09/05/17 21:15) Sodium Chlor 0.9% 1000 Ml Inj (Ns 1000 M (09/05/17 23:15) Morphine Inj (Morphine Inj) (09/05/17 23:15) Iohexol 350 Inj (Omnipaque 350 Inj) (09/05/17 23:21) Vancomycin For Oral Use Only (Vancomycin (09/05/17 23:38) Piperacil-Tazo 3.375 Gm Premix (Zosyn 3. (09/05/17 23:45) Metronidazole (Flagyl) (09/05/17 23:45) Admit To Inpatient (09/05/17 ) Vital Signs (Adult) Q4H (09/05/17 23:46) Activity Oob With Assistance (09/05/17 23:46) High Wire Artist / Telemetry .CONTINUOUS (09/05/17 23:46) Diet Clear Liquid (09/06/17 Breakfast) Sodium Chloride 0.9% Flush (Ns Flush) (09/06/17 00:00) Sodium Chloride 0.9% Flush (Ns Flush) (09/06/17 09:00) Basic Metabolic Panel (Bmp) (09/06/17 06:00) Complete Blood Count With Diff (09/06/17 06:00) Pt Request For Service (09/05/17 23:46) Case Management Consult (09/05/17 23:46) Naloxone Inj (Narcan Inj) (09/06/17 00:00) Inpatient Certification (09/05/17 ) Sodium Chlor 0.9% 1000 Ml Inj (Ns 1000 M (09/06/17 00:00) Metronidazole 500 Mg Inj (Flagyl 500 Mg (09/06/17 00:00) Vancomycin For Oral Use Only (Vancomycin (09/06/17 09:00) Consult Infectious Disease (09/05/17 ) Admit Order (Ed Use Only) (09/05/17 23:51) Labs Laboratory Tests Test 09/05/17 22:15 09/05/17 22:20 Lactic Acid Level 4.8 mmol/L White Blood Count 5.8 TH/MM3 Red Blood Count 3.52 MIL/MM3 Hemoglobin 11.0 GM/DL Hematocrit 32.6 % Mean Corpuscular Volume 92.6 FL Mean Corpuscular Hemoglobin 31.1 PG Mean Corpuscular Hemoglobin Concent 33.6 % Red Cell Distribution Width 16.8 % Platelet Count 61 TH/MM3 Mean Platelet Volume 10.3 FL Neutrophils (%) (Auto) 84.1 % Lymphocytes (%) (Auto) 8.6 % Monocytes (%) (Auto) 6.4 % Eosinophils (%) (Auto) 0.2 % Basophils (%) (Auto) 0.7 % Neutrophils # (Auto) 4.9 TH/MM3 Lymphocytes # (Auto) 0.5 TH/MM3 Monocytes # (Auto) 0.4 TH/MM3 Eosinophils # (Auto) 0.0 TH/MM3 Basophils # (Auto) 0.0 TH/MM3 CBC Comment AUTO DIFF Differential Total Cells Counted 100 Neutrophils % (Manual) 36 % Band Neutrophils % 41 % Lymphocytes % 9 % Monocytes % 3 % Eosinophils % 1 % Neutrophils # (Manual) 5.0 TH/MM3 Metamyelocytes 8 % Myelocytes 2 % Differential Comment FINAL DIFF MANUAL Toxic Vacuolation PRESENT Platelet Estimate LOW Platelet Morphology Comment NORMAL Ovalocytes 1+ Prothrombin Time 11.4 SEC Prothromb Time International Ratio 1.1 RATIO Activated Partial Thromboplast Time 30.0 SEC Stool C. difficile Toxin (PCR) POSITIVE Stl C. difficile Toxin Epiderm 027 PRESUMPTIVE POSITIVE Blood Urea Nitrogen 15 MG/DL Creatinine 1.12 MG/DL Random Glucose 88 MG/DL Total Protein 9.4 GM/DL Albumin 2.3 GM/DL Calcium Level 7.9 MG/DL Magnesium Level 2.0 MG/DL Alkaline Phosphatase 204 U/L Aspartate Amino Transf (AST/SGOT) 75 U/L Alanine Aminotransferase (ALT/SGPT) 45 U/L Total Bilirubin 0.9 MG/DL Sodium Level 140 MEQ/L Potassium Level 4.2 MEQ/L Chloride Level 108 MEQ/L Carbon Dioxide Level 22.2 MEQ/L Anion Gap 10 MEQ/L Estimat Glomerular Filtration Rate 62 ML/MIN Lipase 57 U/L MDM Supervised Visit with FOREIGN: Yes Critical Care Narrative Aggregate critical care time was 45 minutes. Time to perform other separately billable procedures was not included in the critical care time. My time did not include minutes spent treating any other patients simultaneously or on activities that did not directly contribute to the patient's treatment. The services I provided to this patient were to treat and/or prevent clinically significant deterioration that could result in: cardiovascular collapse or . I provided critical care services requiring my management, as noted below: Chart data review, documentation time, medication orders and management, vital sign assessments/reviewing monitor data, ordering and reviewing lab tests, ordering and interpreting/reviewing x-rays and diagnostic studies, care of the patient and discussion of the patient with the admitting physicians. Sepsis Criteria SIRS Criteria (2 or more): Heart rate over 90, WBC > 45272, < 4000 or > 10% bands Sepsis Criteria (SIRS+source): Infect source susp/known Septic Shock Criteria: Lactic acid >=4 Diagnosis Primary Impression: C. difficile colitis Additional Impression: Sepsis Qualified Codes: A41.9 - Sepsis, unspecified organism Admitting Information Admitting Physician Requests: Maria Elena Rubin DO Sep 05, 2017 21:17
--- NOTE | 2017-09-05 21:25 | PD ---
HPI Chief Complaint: Abdominal Pain Time Seen by Provider: 21:02 Travel History International Travel<30 days: No Contact w/Intl Traveler<30days: No Traveled to known affect area: No History of Present Illness HPI 51-year-old female that presents to the ED for evaluation of abdominal pain. Patient was recently released from the hospital last week. Patient was diagnosed with C. difficile. Patient has a history of AIDS and per patient she' s been taking her HIV medication. Per patient she has a CD4 count less than 20 from her previous labs at this facility. Per patient she is having lower abdominal pain as well as diarrhea. Per patient is started more severe yesterday. Having nausea but no vomiting. Having chills. States that she finished antibiotic. She is somewhat of a poor historian however and whenever I ask her when she finished antibiotic she told me that she finished them on August 16 but she was admitted during that time and released on 26 August. Unclear compliance. Patient does have a history of significant C. difficile to require vancomycin. She denies any chest pain or shortness of breath. No urinary symptoms. Pain is the lower abdomen and is cramping and 7 out of 10 per patient. She does have a history of cirrhosis of the liver and chronically takes OxyContin. PFSH Past Medical History Hx Anticoagulant Therapy: No Arthritis: No Asthma: No Autoimmune Disease: Yes Blood Disorders: Yes Anxiety: No Depression: Yes Heart Rhythm Problems: No Cancer: No Cardiomyopathy: No Cardiovascular Problems: Yes High Cholesterol: No Chemotherapy: No Chest Pain: No Congestive Heart Failure: No Cirrhosis: Yes COPD: No Cerebrovascular Accident: Yes (2 strokes in 2012) Diabetes: Yes (PT denies) Diminished Hearing: No Endocrine: No Gastrointestinal Disorders: Yes (CIRRHOSIS) GERD: No Genitourinary: No Headaches: Yes Hiatal Hernia: No Hypertension: Yes Immune Disorder: Yes (HIV) Implanted Vascular Access Dvce: No Kidney Stones: No Musculoskeletal: No Neurologic: Yes Psychiatric: No Reproductive: No Respiratory: No Migraines: Yes Radiation Therapy: No Renal Failure: No Seizures: Yes Sickle Cell Disease: No Sleep Apnea: No Thyroid Disease: No Ulcer: No Menopausal: Yes : 2 Para: 0 Miscarriage: 1 : 1 Ectopic : Yes Ovarian Cysts: Yes Past Surgical History Abdominal Surgery: Yes (Expoloratory Lap) AICD: No Arteriovenous Shunt: No Cardiac Surgery: No Section: Yes Ear Surgery: No Endocrine Surgery: No Eye Surgery: No Genitourinary Surgery: No Gynecologic Surgery: Yes Hysterectomy: No Insulin Pump: No Joint Replacement: No Neurologic Surgery: No Oral Surgery: No Pacemaker: No Thoracic Surgery: No Other Surgery: Yes (, ectopic ) Social History Alcohol Use: Yes (4 DRINKS A DAY 3 TIMES A WEEK ) Tobacco Use: No (8 yrs ago) Substance Use: No Allergies-Medications (Allergen,Severity, Reaction): Coded Allergies: No Known Allergies (Verified Allergy, Unknown, 08/07/17) Reported Meds & Prescriptions Reported Meds & Active Scripts Active Vancomycin (Vancomycin HCl) 125 Mg Cap 125 Mg PO QID Protonix (Pantoprazole Sodium) 40 Mg Tab 40 Mg PO DAILY Furosemide 40 Mg Tab 40 Mg PO DAILY Aldactone (Spironolactone) 50 Mg Tab 50 Mg PO DAILY Propranolol (Propranolol HCl) 10 Mg Tab 10 Mg PO Q12HR Reported Ferrous Sulfate 325 Mg (65 Mg Iron) Tablet 325 Mg PO BIDPC Review of Systems Except as stated in HPI: all other systems reviewed are Neg Physical Exam Narrative GENERAL: SKIN: Warm and dry. HEAD: Atraumatic. Normocephalic. EYES: Pupils equal and round. No scleral icterus. No injection or drainage. ENT: No nasal bleeding or discharge. Mucous membranes pink and moist. NECK: Trachea midline. No JVD. CARDIOVASCULAR: Regular rate and rhythm. RESPIRATORY: No accessory muscle use. Clear to auscultation. Breath sounds equal bilaterally. GASTROINTESTINAL: Abdomen soft, tender to touch in the lower abdomen as well as the upper abdomen, nondistended. Hepatic and splenic margins not palpable. MUSCULOSKELETAL: Extremities without clubbing, cyanosis, or edema. No obvious deformities. Full range of motion of the upper and lower extremities bilaterally. 2+ pulses bilaterally. NEUROLOGICAL: Awake and alert. No obvious cranial nerve deficits. Motor grossly within normal limits. Five out of 5 muscle strength in the arms and legs. Normal speech. PSYCHIATRIC: Appropriate mood and affect; insight and judgment normal. Data Data Last Documented VS Vital Signs Date Time Temp Pulse Resp B/P (MAP) Pulse Ox O2 Delivery O2 Flow Rate FiO2 09/05/17 21:49 18 09/05/17 19:44 98.3 102 102/55 (71) 98 Room Air Orders Orders Complete Blood Count With Diff (09/05/17 21:05) Comprehensive Metabolic Panel (09/05/17 21:05) Prothrombin Time / Inr (Pt) (09/05/17 21:05) Act Partial Throm Time (Ptt) (09/05/17 21:05) Blood Culture (09/05/17 21:05) Lipase (09/05/17 21:05) Urinalysis - C+S If Indicated (09/05/17 21:05) Magnesium (Mg) (09/05/17 21:05) C Diff Toxin Pcr (09/05/17 21:05) Chest, Single Ap (09/05/17 21:05) Ct Abd/Pel W Iv Contrast(Rout) (09/05/17 21:05) Iv Access Insert/Monitor (09/05/17 21:05) Ecg Monitoring (09/05/17 21:05) Oximetry (09/05/17 21:05) Stool Ova And Parasite Screen (09/05/17 21:05) Stool Wbc (Leukocytes) (09/05/17 21:05) Lactic Acid Sepsis Protocol (09/05/17 21:05) Sodium Chlor 0.9% 1000 Ml Inj (Ns 1000 M (09/05/17 21:15) Morphine Inj (Morphine Inj) (09/05/17 21:15) Ondansetron Inj (Zofran Inj) (09/05/17 21:15) MDM Medical Decision Making Medical Screen Exam Complete: Yes Emergency Medical Condition: Yes Medical Record Reviewed: Yes Differential Diagnosis C. difficile versus fellow patient treatment versus diarrhea versus acute appendicitis versus colitis versus intractable abdominal pain versus sepsis versus noncompliance Narrative Course 51-year-old female that presents to the ED for evaluation of diarrhea and abdominal pain. Patient was properly examined and was found to have signs and symptoms consistent with appears to be possible C. difficile. She has a history of this in the past and has had significant infection secondary to her AIDS in the past. Labs and imaging were ordered. Case signed out to my attending. En Davis Sep 05, 2017 21:25
[2017-09-05 22:25] VITALS: PULSE 97; RESP 20; O2SAT 95
--- NOTE | 2017-09-05 22:41 | RADRPT ---
EXAM DATE/TIME: 09/05/2017 21:27 [facility] COMPARISON: CHEST SINGLE AP, August 07, 2017, 19:44. INDICATIONS : Fever. MEDICAL HISTORY : Seizures. Hypertension. HIV.Diabetes SURGICAL HISTORY : None. ENCOUNTER: Initial ACUITY: 1 day PAIN SCORE: 0/10 LOCATION: Bilateral chest FINDINGS: A single view of the chest demonstrates a slight increase in right perihilar airspace consolidation c ompared with August 07. Left lung remains relatively clear. No effusion. Heart size upper limits nor mal to mildly enlarged. No pneumothorax. CONCLUSION: 1. Slight increase in right perihilar airspace consolidation compared with August 07 most characteri stic of pneumonia. Tremayne Lemon MD on September 05, 2017 at 22:37 Board Certified Radiologist. This report was verified electronically.
[2017-09-05 22:42] LABS: AUTOMATED NEUTROPHIL # 4.9 TH/MM3 (1.8-7.7); BASOPHIL % 0.7 % (0.0-2.0); EOSINOPHIL % 0.2 % (0.0-4.0); HEMATOCRIT 32.6 % (35.0-46.0); LYMPH % 8.6 % (9.0-44.0); LYMPHOCYTE # 0.5 TH/MM3 (1.0-4.8); MEAN CELL VOLUME 92.6 FL (80.0-100.0); MEAN CORPUSCULAR HEMOGLOBIN 31.1 PG (27.0-34.0); MEAN CORPUSCULAR HGB CONC 33.6 % (32.0-36.0); MEAN PLATELET VOLUME 10.3 FL (7.0-11.0); MONO % 6.4 % (0.0-8.0); MONOCYTE # 0.4 TH/MM3 (0-0.9); NEUT % 84.1 % (16.0-70.0); PLATELET COUNT 61 TH/MM3 (150-450); RED BLOOD COUNT 3.52 MIL/MM3 (4.00-5.30); RED CELL DISTRIBUTION WIDTH 16.8 % (11.6-17.2); WHITE BLOOD COUNT 5.8 TH/MM3 (4.0-11.0)
[2017-09-05 22:57] LABS: ALKALINE PHOSPHATASE 204 U/L (45-117); TOTAL BILIRUBIN ADULT 0.9 MG/DL (0.2-1.0); TOTAL PROTEIN 9.4 GM/DL (6.4-8.2)
[2017-09-05 22:58] LABS: ALBUMIN 2.3 GM/DL (3.4-5.0); ALT (GPT) 45 U/L (10-53); AST (GOT) 75 U/L (15-37); BICARBONATE 22.2 MEQ/L (21.0-32.0); BLOOD UREA NITROGEN 15 MG/DL (7-18); CALCIUM 7.9 MG/DL (8.5-10.1); CHLORIDE 108 MEQ/L (98-107); CREATININE 1.12 MG/DL (0.50-1.00); GLOMERULAR FILTRATION RATE 62 ML/MIN (>89); GLUCOSE,RANDOM 88 MG/DL (74-106); SODIUM (NA) 140 MEQ/L (136-145)
[2017-09-05 22:59] LABS: LACTIC ACID SEPSIS PROTOCOL 4.8 mmol/L (0.4-2.0)
[2017-09-05 23:00] VITALS: BP 135/70; PULSE 96; RESP 20; O2SAT 95
[2017-09-05 23:15] LABS: INTERNATIONAL NORMALIZED RATIO 1.1 RATIO; PROTHROMBIN TIME - PATIENT 11.4 SEC (9.8-11.6)
[2017-09-05 23:16] LABS: BANDS 41 % (0-6); LYMPHOCYTES 9 % (9-44); METAMYELOCYTES 8 % (0-1); MONOCYTES 3 % (0-8); MYELOCYTES 2 % (0-0); POLYS (SEG NEUTROPHILS) 36 % (16-70)
[2017-09-05 23:17] LABS: OVALOCYTES 1+ (NORMAL); TOXIC VACUOLATION PRESENT (NONE SEEN)
[2017-09-05] MEDS ORDERED: IOHEXOL 350 MG/ML 10 ML VIAL (for RAD DIAG) IVCONTRAST ONE (23:21)
--- NOTE | 2017-09-05 23:35 | RADRPT ---
EXAM DATE/TIME: 09/05/2017 23:19 [facility] COMPARISON: CT ABDOMEN & PELVIS W CONTRAST, August 18, 2017, 13:50. INDICATIONS : Abdomen pain. IV CONTRAST: 75 cc Omnipaque 350 (iohexol) IV ORAL CONTRAST: No oral contrast ingested. RADIATION DOSE: 4.51 CTDIvol (mGy) MEDICAL HISTORY : Seizures. Stroke HIV.Ectopic , cirrhosis SURGICAL HISTORY : None. ENCOUNTER: Initial ACUITY: 1 day PAIN SCALE: 5/10 LOCATION: Bilateral abdomen TECHNIQUE: Volumetric scanning of the abdomen and pelvis was performed. Using automated exposure control and ad justment of the mA and/or kV according to patient size, radiation dose was kept as low as reasonably achievable to obtain optimal diagnostic quality images. DICOM format image data is available electro nically for review and comparison. FINDINGS: Interval development of consolidation in the right middle lobe, and in the right lower lobe a promine nt nodular focus of consolidation is seen measuring 1.4 cm. The osseous structures are intact. Cirrho sis and portal hypertension again seen with nodular hepatic contour, splenomegaly, and prominent uppe r abdominal varices. Pancreas, kidneys, adrenals, stomach, gallbladder unremarkable. Scattered athero sclerotic plaquing of the aorta and iliac vessels. No aneurysm. Urinary bladder unremarkable. Inguina l adenopathy is again seen bilaterally the largest in the left proximal thigh measuring 2.2 cm in layne rt axis dimension. The uterus and ovaries are unremarkable. No evidence of bowel obstruction. There i s mild circumferential bowel wall thickening greatest in the ascending colon suspect for colitis. CONCLUSION: Mild diffuse bowel wall thickening suspect for colitis. Cirrhosis and portal hypertension again seen. Interval development of right middle lobe and lower lobe nodular consolidation suspect for pneumonia . Followup recommended after appropriate medical therapy. Joe Palma MD on September 05, 2017 at 23:29 Board Certified Radiologist. This report was verified electronically.
[2017-09-05] MEDS ORDERED: VANCOMYCIN 500 MG VIAL (FOR ORAL USE ONLY) PO STA (23:38)
[2017-09-05] MEDS ORDERED: PIPERACIL-TAZO 3.375 GM PREMIX 50 ML IV ONE (23:45)
[2017-09-05] MEDS ORDERED: metroNIDAZOLE 500 MG TAB PO ONE (23:45)
[2017-09-06] VITALS (16 sets, daily range): BP systolic 106–139; BP diastolic 51–65; PULSE 73–114; RESP 16–32; TEMP 98.2–103.2; O2SAT 96–100
[2017-09-06] MEDS ORDERED: NALOXONE HCL 0.4 MG/ML AMP IV PUSH PRN
[2017-09-06] MEDS ORDERED: SODIUM CHLORIDE 0.9% FLUSH 10 ML FLUSH IV FLUSH PRN
[2017-09-06] MEDS ORDERED: SODIUM CHLOR 0.9% 1000 ML INJ 1,000 ML IV SCH
--- NOTE | 2017-09-06 03:07 | HHI.HP ---
[facility] Service [facility] ([place], [place])ists Primary Care Physician Jeremiah Garcia MD Admission Diagnosis Cdiff colitis, severe sepsis Diagnoses: Travel History International Travel<30 Days: No Contact w/Intl Traveler <30 Da: No Traveled to Known Affected Are: No History of Present Illness History from patient, her at the bedside, and review of medical records. Patient is quite drowsy at the time of my exam. She would only with To verbal stimuli and answer yes or no and went straight back to sleep. She also answers yes to most of the line of questioning. According to the , patient was not feeling well for the past 2 days. However he is not really able to give specific symptoms such as fever/cough/ nausea/vomiting. He states he only knows that she's been having constant diarrhea. Reports that the diarrhea is found now having. According to ER nurses, patient was much more awake and alert prior to my arrival. She was given history to the ER that she has been having constant diarrhea and that she just recently finished her by mouth vancomycin dose for treatment of his life. She was also complaining of abdominal pain. Therefore she received a total of morphine 6 mg IV prior to my arrival. This was contributing to her altered mental status. denies any altered mentation at home. Denies any neck rigidity or photophobia. is not sure whether patient is taking her meds. That he states that patient did see her HIV doctor about 3 days ago. Review of Systems ROS Limitations: Altered Mental Status, Poor Historian Past Family Social History Past Medical History C. difficile colitis HIV. CD4 count less than 20 on March 25, 2017. Liver cirrhosis with gastric mass Anemia Hilar Mass noted on cxr last admission- s/p lymph node biopsy showing atypical lymphoplasomcytic infiltrate and fibrosis Recent rib fx Esophagitis Past Surgical History c section exploratory laparotomy ectopic sx Allergies: Coded Allergies: No Known Allergies (Verified Allergy, Unknown, 08/07/17) Family History unknown to pt's , pt cannot answer Social History unknown Physical Exam Vital Signs Vital Signs Date Time Temp Pulse Resp B/P (MAP) Pulse Ox O2 Delivery O2 Flow Rate FiO2 2/13/18 01:00 100 18 106/55 (72) 98 Nasal Cannula 2.00 09/05/17 23:00 96 20 135/70 (91) 95 Room Air 09/05/17 22:26 18 09/05/17 22:25 97 20 95 Room Air 09/05/17 21:49 18 09/05/17 19:44 98.3 102 16 102/55 (71) 98 Room Air Physical Exam GENERAL: This is a thin lady, sleeping mostly, would awaken just to answer yes or no questions SKIN: Multiple small dry scaly lesions lesions typical of HIV dermatitis HEAD: Atraumatic. Normocephalic. No temporal or scalp tenderness. EYES: No scleral icterus. No injection or drainage. ENT: Nose without bleeding, purulent drainage or septal hematoma. Airway patent. NECK: Trachea midline. No JVD Supple, nontender, no meningeal signs. CARDIOVASCULAR: Regular rate and rhythm without murmurs, gallops, or rubs. RESPIRATORY: Bilateral crepitations at the bases. GASTROINTESTINAL: Abdomen soft, non-tender, nondistended. No guarding. MUSCULOSKELETAL: Extremities without clubbing, cyanosis, or edema. No calf tenderness. NEUROLOGICAL: Quite sleepy. Motor and sensory grossly within normal limits.Normal speech. Laboratory Laboratory Tests Test 09/05/17 22:15 09/05/17 22:20 09/06/17 00:32 Lactic Acid Level 4.8 4.1 White Blood Count 5.8 Red Blood Count 3.52 Hemoglobin 11.0 Hematocrit 32.6 Mean Corpuscular Volume 92.6 Mean Corpuscular Hemoglobin 31.1 Mean Corpuscular Hemoglobin Concent 33.6 Red Cell Distribution Width 16.8 Platelet Count 61 Mean Platelet Volume 10.3 Neutrophils (%) (Auto) 84.1 Lymphocytes (%) (Auto) 8.6 Monocytes (%) (Auto) 6.4 Eosinophils (%) (Auto) 0.2 Basophils (%) (Auto) 0.7 Neutrophils # (Auto) 4.9 Lymphocytes # (Auto) 0.5 Monocytes # (Auto) 0.4 Eosinophils # (Auto) 0.0 Basophils # (Auto) 0.0 CBC Comment AUTO DIFF Differential Total Cells Counted 100 Neutrophils % (Manual) 36 Band Neutrophils % 41 Lymphocytes % 9 Monocytes % 3 Eosinophils % 1 Neutrophils # (Manual) 5.0 Metamyelocytes 8 Myelocytes 2 Differential Comment FINAL DIFF MANUAL Toxic Vacuolation PRESENT Platelet Estimate LOW Platelet Morphology Comment NORMAL Ovalocytes 1+ Prothrombin Time 11.4 Prothromb Time International Ratio 1.1 Activated Partial Thromboplast Time 30.0 Stool C. difficile Toxin (PCR) POSITIVE Stl C. difficile Toxin Epiderm 027 PRESUMPTIVE POSITIVE Blood Urea Nitrogen 15 Creatinine 1.12 Random Glucose 88 Total Protein 9.4 Albumin 2.3 Calcium Level 7.9 Magnesium Level 2.0 Alkaline Phosphatase 204 Aspartate Amino Transf (AST/SGOT) 75 Alanine Aminotransferase (ALT/SGPT) 45 Total Bilirubin 0.9 Sodium Level 140 Potassium Level 4.2 Chloride Level 108 Carbon Dioxide Level 22.2 Anion Gap 10 Estimat Glomerular Filtration Rate 62 Lipase 57 Date/Time Source Procedure Growth Status 09/05/17 22:20 Blood Peripheral Aerobic Blood Culture Pending Received 09/05/17 22:20 Blood Peripheral Anaerobic Blood Culture Pending Received 09/05/17 22:20 Stool Stool Cryptosporidium Exam Pending Received 09/05/17 22:20 Stool Stool Stool Pus (FLY) Pending Received 09/05/17 22:20 Stool Stool Giardia Antigen (FLY) Pending Received Result Diagram: 09/05/17221909/05/172219 Imaging Last 48 hours Impressions Chest X-Ray 09/05/172104 Signed Impressions: Service Date/Time: Tuesday, September 05, 2017 21:27 - CONCLUSION: 1. Slight increase in right perihilar airspace consolidation compared with August 07 most characteristic of pneumonia. Tremayne Lemon MD Abdomen/Pelvis CT 09/05/172104 Signed Impressions: Service Date/Time: Tuesday, September 05, 2017 23:19 - CONCLUSION: Mild diffuse bowel wall thickening suspect for colitis. Cirrhosis and portal hypertension again seen. Interval development of right middle lobe and lower lobe nodular consolidation suspect for pneumonia. Followup recommended after appropriate medical therapy. MD Saurabh Oreillyi VTE Risk Assessment Caprini VTE Risk Assessment: Mod/High Risk (score >= 2) Caprini Risk Assessment Model Point Value = 1 Point Value = 2 Point Value = 3 Point Value = 5 Age 41-60 Minor surgery BMI > 25 kg/m2 Swollen legs Varicose veins or History of unexplained or recurrent spontaneous Oral contraceptives or hormone replacement Sepsis (< 1 month) Serious lung disease, including pneumonia (< 1 month) Abnormal pulmonary function Acute myocardial infarction Congestive heart failure (< 1 month) History of inflammatory bowel disease Medical patient at bed rest Age 61-74 Arthroscopic surgery Major open surgery (> 45 min) Laparoscopic surgery (> 45 min) Malignancy Confined to bed (> 72 hours) Immobilizing plaster cast Central venous access Age >= 75 History of VTE Family history of VTE Factor V Leiden Prothrombin [id number] Lupus anticoagulant Anticardiolipin antibodies Elevated serum homocysteine Heparin-induced thrombocytopenia Other congenital or acquired thrombophilia Stroke (< 1 month) Elective arthroplasty Hip, pelvis, or leg fracture Acute spinal cord injury (< 1 month) Prophylaxis Regimen Total Risk Factor Score Risk Level Prophylaxis Regimen 0-1 Low Early ambulation 2 Moderate Order ONE of the following: *Sequential Compression Device (SCD) *Heparin 5000 units SQ BID 3-4 Higher Order ONE of the following medications: *Heparin 5000 units SQ TID *Enoxaparin/Lovenox 40 mg SQ daily (WT < 150 kg, CrCl > 30 mL/min) *Enoxaparin/Lovenox 30 mg SQ daily (WT < 150 kg, CrCl > 10-29 mL/min) *Enoxaparin/Lovenox 30 mg SQ BID (WT < 150 kg, CrCl > 30 mL/min) AND/OR *Sequential Compression Device (SCD) 5 or more Highest Order ONE of the following medications: *Heparin 5000 units SQ TID (Preferred with Epidurals) *Enoxaparin/Lovenox 40 mg SQ daily (WT < 150 kg, CrCl > 30 mL/min) *Enoxaparin/Lovenox 30 mg SQ daily (WT < 150 kg, CrCl > 10-29 mL/min) *Enoxaparin/Lovenox 30 mg SQ BID (WT < 150 kg, CrCl > 30 mL/min) AND *Sequential Compression Device (SCD) Assessment and Plan Assessment and Plan Impression: Severe sepsis Lactic acid acidosis Pneumonia. Hospital acquired C. difficile diarrhea Leukocytosis with left shift Bandemia Acute renal failure Dehydration from GI loss Co morbid conditions: C. difficile colitis- virulent strain HIV. CD4 count less than 20 on March 25, 2017. Liver cirrhosis with gastric mass Anemia Hilar Mass noted on cxr last admission- s/p lymph node biopsy showing atypical lymphoplasomcytic infiltrate and fibrosis Recent rib fx Esophagitis Plan: Give patient received 2 L normal saline bolus in ER. Start a third liter of normal saline bolus. Start maintenance fluids at 1 25 cc per hour. Cefepime 2 g IV every 8 hours for pneumonia. Start patient on Flagyl 500 mg IV every 6 hours. Vancomycin 500 mg by mouth every 8 hours. We'll follow renal function post hydration. Infectious disease consult. Insert Conde/straight catheter. Drained [address] abdomen and pelvis personally reviewed. Diffuse colitis. Admit patient to ICU for close monitoring. DVT prophylaxis with heparin. Discussed Condition With patient, , ER MD, nursing staff Physician Certification 2 Midnight Certification Type: Admission for Inpatient Services Order for Inpatient Services The services are ordered in accordance with Medicare regulations or non- Medicare payer requirements, as applicable. In the case of services not specified as inpatient-only, they are appropriately provided as inpatient services in accordance with the 2-midnight benchmark. Estimated LOS (days): 5 days is the estimated time the patient will need to remain in the hospital, assuming treatment plan goals are met and no additional complications. Post-Hospital Plan: Home Abner Escamilla MD Sep 06, 2017 03:06
[2017-09-06] MEDS: CEFEPIME INJ 2,000 MG in SODIUM CHLORIDE 0.9% INJ 100 ML IV SCH ×3 (03:49→21:12)
[2017-09-06] MEDS: metroNIDAZOLE 500 MG INJ 100 ML IV SCH ×4 (04:15→22:49)
[2017-09-06 05:07] LABS: BACTERIA, URINE RARE /hpf; BILIRUBIN, URINE NEG (NEG); BLOOD, URINE NEG (NEG); GLUCOSE,URINE NEG (NEG); KETONE, URINE NEG (NEG); NITRITE,URINE NEG (NEG); PH, URINE 6.5 (5.0-8.5); URINE COLOR YELLOW (YELLW/STRAW); URINE LEUKOCYTE ESTERASE NEG (NEG)
[2017-09-06] MEDS ORDERED: metroNIDAZOLE 500 MG INJ 100 ML IV SCH (06:00)
[2017-09-06] MEDS ORDERED: CHLORHEXIDINE GLUCONATE 2 % 1 PACK (2 CLOTHS)(extra cloths) TOPICAL PRN (07:45)
[2017-09-06] MEDS: SODIUM CHLORIDE 0.9% FLUSH 10 ML FLUSH IV FLUSH SCH ×2 (09:00→21:12)
[2017-09-06] MEDS: DEXT 5%-NACL 0.9% 1000 ML INJ 1,000 ML IV SCH ×2 (09:22→18:04)
[2017-09-06] MEDS: VANCOMYCIN 25 MG/ML SUSP 100 ML BOTTLE PO SCH ×4 (09:23→22:48)
[2017-09-06 10:25] LABS: HEMATOCRIT 27.8 % (35.0-46.0); HEMOGLOBIN 9.5 GM/DL (11.6-15.3); MEAN CELL VOLUME 93.2 FL (80.0-100.0); MEAN CORPUSCULAR HEMOGLOBIN 31.8 PG (27.0-34.0); MEAN CORPUSCULAR HGB CONC 34.1 % (32.0-36.0); MEAN PLATELET VOLUME 10.1 FL (7.0-11.0); PLATELET COUNT 52 TH/MM3 (150-450); RED BLOOD COUNT 2.98 MIL/MM3 (4.00-5.30); RED CELL DISTRIBUTION WIDTH 16.7 % (11.6-17.2); WHITE BLOOD COUNT 4.9 TH/MM3 (4.0-11.0)
[2017-09-06 10:44] LABS: BICARBONATE 17.8 MEQ/L (21.0-32.0); CALCIUM 6.5 MG/DL (8.5-10.1); CREATININE 0.87 MG/DL (0.50-1.00)
[2017-09-06 10:58] LABS: TOTAL PROTEIN 7.4 GM/DL (6.4-8.2)
[2017-09-06 11:02] LABS: CALCIUM-PROTEIN CORRECTED 6.4 MG/DL (8.5-10.1)
[2017-09-06 11:23] LABS: BANDS 33 % (0-6); LYMPHOCYTES 12 % (9-44); METAMYELOCYTES 2 % (0-1); MONOCYTES 8 % (0-8); MYELOCYTES 2 % (0-0); NEUTROPHIL # MANUAL DIFF 3.9 TH/MM3 (1.8-7.7); POLYS (SEG NEUTROPHILS) 43 % (16-70)
[2017-09-06 11:25] LABS: ROULEAUX PRESENT (NORMAL); TARGET CELLS 1+ (NORMAL); TOXIC GRANULATION 1+ (NORMAL)
[2017-09-06] MEDS ORDERED: CALCIUM GLUCONATE INJ 2 GM in DEXTROSE 5% IN WATER 100ML INJ 100 ML IV ONE ×2 (12:15)
[2017-09-06] MEDS: CHOLESTYRAMINE 4 GM PACKET PO SCH ×2 (13:36→21:13)
[2017-09-06] MEDS ORDERED: ALUMINUM/MAGNESIUM/SIMETH 30 ML CUP PO PRN (13:45)
[2017-09-06] MEDS ORDERED: HEPARIN SODIUM - SQ 10,000 UNITS/ML VIAL SQ SCH (14:00)
[2017-09-06] MEDS ORDERED: ACETAMINOPHEN 325 MG TAB PO PRN (16:45)
[2017-09-06] MEDS ORDERED: ONDANSETRON HCL 4 MG/2 ML VIAL IV PUSH PRN (16:45)
[2017-09-07] VITALS (13 sets, daily range): BP systolic 97–128; BP diastolic 56–72; PULSE 75–87; RESP 15–27; TEMP 97.8–98.9; O2SAT 100
[2017-09-07] MEDS: metroNIDAZOLE 500 MG INJ 100 ML IV SCH ×4 (03:55→21:17)
[2017-09-07] MEDS: DEXT 5%-NACL 0.9% 1000 ML INJ 1,000 ML IV SCH (03:56)
[2017-09-07] MEDS: CHLORHEXIDINE GLUCONATE 2 % 1 PACK (2 CLOTHS)(taper/protocol) TOPICAL SCH (04:00)
[2017-09-07] MEDS: CHOLESTYRAMINE 4 GM PACKET PO SCH ×3 (04:55→21:15)
[2017-09-07] MEDS: CEFEPIME INJ 2,000 MG in SODIUM CHLORIDE 0.9% INJ 100 ML IV SCH ×3 (04:56→20:00)
[2017-09-07 04:57] LABS: HEMATOCRIT 29.7 % (35.0-46.0); HEMOGLOBIN 9.6 GM/DL (11.6-15.3); MEAN CELL VOLUME 93.9 FL (80.0-100.0); MEAN CORPUSCULAR HEMOGLOBIN 30.4 PG (27.0-34.0); MEAN CORPUSCULAR HGB CONC 32.4 % (32.0-36.0); MEAN PLATELET VOLUME 9.7 FL (7.0-11.0); PLATELET COUNT 52 TH/MM3 (150-450); RED BLOOD COUNT 3.17 MIL/MM3 (4.00-5.30); RED CELL DISTRIBUTION WIDTH 17.3 % (11.6-17.2); WHITE BLOOD COUNT 8.5 TH/MM3 (4.0-11.0)
[2017-09-07 05:15] LABS: BICARBONATE 15.6 MEQ/L (21.0-32.0); CALCIUM 6.9 MG/DL (8.5-10.1); CREATININE 0.88 MG/DL (0.50-1.00); MAGNESIUM 1.7 MG/DL (1.5-2.5)
[2017-09-07 05:31] LABS: TOTAL PROTEIN 6.8 GM/DL (6.4-8.2)
[2017-09-07 05:43] LABS: CALCIUM-PROTEIN CORRECTED 7.1 MG/DL (8.5-10.1)
[2017-09-07] MEDS ORDERED: CALCIUM GLUCONATE 10% 1 GM/10 ML VIAL IV PUSH ONE (06:00)
[2017-09-07] MEDS ORDERED: SODIUM CHLOR 0.9% 250 ML INJ 250 ML IV ONE (06:00)
[2017-09-07] MEDS ORDERED: MAGNESIUM OXIDE 400 MG TAB PO ONE (06:15)
[2017-09-07] MEDS ORDERED: CALCIUM CARBONATE 1.25 GM (CA 500 MG) TAB PO ONE (06:15)
[2017-09-07] MEDS: SODIUM BICARBONATE 8.4% INJ 100 MEQ in DEXTROSE 5% IN WATE 1000ML INJ 1,000 ML IV SCH ×4 (06:34→21:16)
[2017-09-07] MEDS ORDERED: CALCIUM GLUCONATE INJ 2 GM in SODIUM CHLORIDE 0.9% INJ 100 ML IV ONE (07:15)
[2017-09-07] MEDS: SODIUM CHLORIDE 0.9% FLUSH 10 ML FLUSH IV FLUSH SCH ×2 (09:06→21:00)
[2017-09-07] MEDS: CALCIUM CARBONATE 1.25 GM (CA 500 MG) TAB PO SCH ×2 (09:06→21:16)
[2017-09-07] MEDS: MAGNESIUM OXIDE 400 MG TAB PO SCH ×2 (09:06→21:15)
[2017-09-07] MEDS: VANCOMYCIN 25 MG/ML SUSP 100 ML BOTTLE PO SCH ×4 (09:09→21:15)
--- NOTE | 2017-09-07 09:28 | PD.ID.CON ---
History of Present Illness Service ID Consult Requested By Reason for Consult Evaluation and Mment of Pneumonia and Cdiff in pt with HIV AIDS. Primary Care Physician Jeremiah Garcia MD Diagnoses: History of Present Illness is a 52 yo AAF with advanced HIV/AIDS (on HAART: ABC+ epivir+ dolutegravir and darunavir+ cobstat), followed by Dr Teague in outreach clinic. Her CD4 in October 2016 was < 20. She now presents with blood in stool, diarrhea, she has had several episodes of hypervirulent C.diff 027 +. She also has AFB+ stool on her last admission in January.She reports ongoing diarrhea off and on. Patient presents to the ED for evaluation of abdominal pain. Patient was recently released from the hospital last week. Having nausea but no vomiting. Having chills. States that she finished antibiotic. Patient does have a history of significant C. difficile to require vancomycin. She denies any chest pain or shortness of breath. No urinary symptoms. Pain is the lower abdomen and is cramping and 7 out of 10 per patient. She does have a history of cirrhosis of the liver and chronically takes OxyContin. ID consulted for evaluation and Mment of Pneumonia and recurrent Cdiff in pt with HIV. Review of Systems ROS Limitations: Poor Historian Past Family Social History Allergies: Coded Allergies: No Known Allergies (Verified Allergy, Unknown, 08/07/17) Past Medical History HIV/AIDS History of recent C. difficile infection Cirrhosis with ascites History of GI bleeding and gastritis History of stroke 2 Pancreatitis. Past Surgical History Axillary LN biopsy Reported Medications Reported Meds & Active Scripts Active Vancomycin (Vancomycin HCl) 125 Mg Cap 125 Mg PO QID Protonix (Pantoprazole Sodium) 40 Mg Tab 40 Mg PO DAILY Furosemide 40 Mg Tab 40 Mg PO DAILY Aldactone (Spironolactone) 50 Mg Tab 50 Mg PO DAILY Propranolol (Propranolol HCl) 10 Mg Tab 10 Mg PO Q12HR Reported Ferrous Sulfate 325 Mg (65 Mg Iron) Tablet 325 Mg PO BIDPC Active Ordered Medications Current Medications Medications (Trade) Dose Ordered Sig/Sue Route Start Time Stop Time Status Last Admin (NS Flush) 2 ml UNSCH PRN IV FLUSH 09/06/17 00:00 (NS Flush) 2 ml BID IV FLUSH 09/06/17 09:00 09/07/17 09:06 (Narcan Inj) 0.4 mg UNSCH PRN IV PUSH 09/06/17 00:00 (Vancomycin 25 Mg/ml Liq) 500 mg QID PO 09/06/17 09:00 09/07/17 13:44 Metronidazole 100 ml @ 100 mls/hr Q6H IV 09/06/17 04:00 09/07/17 16:00 Cefepime HCl 2000 mg/Sodium Chloride 100 ml @ 200 mls/hr Q8H IV 09/06/17 04:00 09/07/17 11:28 (Questran 4 Gm Pkt) 4 gm Q8HR PO 09/06/17 14:00 09/07/17 16:00 Miscellaneous Information Patient in critical care unit? Ass... Q361D .XX 09/06/17 07:45 (Chlorhexidine 2% Cloth) 3 pack DAILY@04 TOPICAL 09/07/17 04:00 09/11/17 04:01 09/07/17 04:00 (Chlorhexidine 2% Cloth) 3 pack UNSCH PRN TOPICAL 09/06/17 07:45 09/11/17 07:37 (Roxicodone) 5 mg Q4H PRN PO 09/06/17 13:45 (Roxicodone) 10 mg Q4H PRN PO 09/06/17 13:45 09/07/17 04:55 (Mag-Al Plus Susp Liq) 30 ml Q6H PRN PO 09/06/17 13:45 (Zofran Inj) 4 mg Q8HR PRN IV PUSH 09/06/17 16:45 09/07/17 04:17 (Tylenol) 650 mg Q4H PRN PO 09/06/17 16:45 09/06/17 18:04 Sodium Bicarbonate 100 meq/Dextrose 1,100 ml @ 125 mls/hr Q8H48M IV 09/07/17 06:00 09/07/17 06:34 (Mag-Ox) 400 mg Q12HR PO 09/07/17 09:00 09/07/17 09:06 (Oscal) 500 mg Q12HR PO 09/07/17 09:00 09/07/17 09:06 Family History reviewed and NC to current ID problems. Social History Lives with her boyfriend. Physical Exam Vital Signs Vital Signs Date Time Temp Pulse Resp B/P (MAP) Pulse Ox O2 Delivery O2 Flow Rate FiO2 09/07/17 06:00 77 09/07/17 04:00 77 09/07/17 04:00 98.4 77 21 125/59 (81) 100 09/07/17 02:00 86 09/07/17 00:00 98.9 75 18 99/57 (71) 09/07/17 00:00 75 09/06/17 22:00 73 09/06/17 20:00 98.2 84 21 107/57 (74) 100 09/06/17 20:00 84 09/06/17 18:00 92 24 118/56 (76) 100 09/06/17 18:00 92 09/06/17 17:00 102 24 113/58 (76) 99 09/06/17 16:00 97 09/06/17 16:00 103.2 97 30 109/56 (73) 100 09/06/17 15:00 95 31 139/60 (86) 99 09/06/17 14:00 91 29 128/60 (82) 100 09/06/17 14:00 91 09/06/17 13:00 100 32 124/65 (84) 97 09/06/17 12:00 94 09/06/17 12:00 100.4 94 29 106/51 (69) 100 09/06/17 11:00 94 27 137/60 (85) 97 09/06/17 10:00 98 32 117/59 (78) 99 09/06/17 10:00 98 Physical Exam GENERAL: Thin built cachectic appearing patient, in no apparent distress. SKIN: No rashes, ecchymoses or lesions. Cool and dry. HEAD: Atraumatic. Normocephalic. No temporal or scalp tenderness. EYES: Pupils equal round and reactive. Extraocular motions intact. No scleral icterus. No injection or drainage. ENT: Nose without bleeding, purulent drainage or septal hematoma. Throat without erythema, tonsillar hypertrophy or exudate. Uvula midline. Airway patent. NECK: Trachea midline. Supple, nontender, no meningeal signs. CARDIOVASCULAR: HS audible. LNs: axillary LNs palpable. RESPIRATORY: Clear to auscultation. Breath sounds equal bilaterally. No wheezes , rales, or rhonchi. GASTROINTESTINAL: Abdomen soft, non-tender, nondistended. MUSCULOSKELETAL: Extremities without clubbing, cyanosis, or edema. NEUROLOGICAL: Awake and alert. Non focal exam Psych cooperative IV line sites with no e.o infection. Laboratory Laboratory Tests Test 09/06/17 09:45 09/06/17 19:51 09/07/17 03:45 White Blood Count 4.9 8.5 Red Blood Count 2.98 3.17 Hemoglobin 9.5 9.6 Hematocrit 27.8 29.7 Mean Corpuscular Volume 93.2 93.9 Mean Corpuscular Hemoglobin 31.8 30.4 Mean Corpuscular Hemoglobin Concent 34.1 32.4 Red Cell Distribution Width 16.7 17.3 Platelet Count 52 52 Mean Platelet Volume 10.1 9.7 CBC Comment AUTO DIFF Differential Total Cells Counted 100 Neutrophils % (Manual) 43 Band Neutrophils % 33 Lymphocytes % 12 Monocytes % 8 Neutrophils # (Manual) 3.9 Metamyelocytes 2 Myelocytes 2 Differential Comment FINAL DIFF MANUAL Toxic Granulation 1+ Platelet Estimate LOW Platelet Morphology Comment NORMAL Target Cells 1+ Rouleau PRESENT Blood Urea Nitrogen 14 13 Creatinine 0.87 0.88 Random Glucose 90 112 Total Protein 7.4 6.8 Calcium Level 6.5 6.9 Sodium Level 144 142 Potassium Level 3.6 3.3 Chloride Level 117 119 Carbon Dioxide Level 17.8 15.6 Anion Gap 9 7 Estimat Glomerular Filtration Rate 82 81 Protein Corrected Calcium 6.4 7.1 Lactic Acid Level 3.0 Magnesium Level 1.7 Date/Time Source Procedure Growth Status 09/05/17 22:20 Blood Peripheral Aerobic Blood Culture - Preliminary NO GROWTH IN 1 DAY Resulted 09/05/17 22:20 Blood Peripheral Anaerobic Blood Culture - Preliminary NO GROWTH IN 1 DAY Resulted 09/05/17 22:20 Stool Stool Cryptosporidium Exam Pending Resulted 09/05/17 22:20 Stool Stool Stool Pus (FLY) - Final NO WBC'S SEEN Resulted 09/05/17 22:20 Stool Stool Giardia Antigen (FLY) Pending Resulted Result Diagram: 09/07/1734409/07/17344 Imaging Last Impressions Chest X-Ray 09/05/172104 Signed Impressions: Service Date/Time: Tuesday, September 05, 2017 21:27 - CONCLUSION: 1. Slight increase in right perihilar airspace consolidation compared with August 07 most characteristic of pneumonia. Tremayne Lemon MD Abdomen/Pelvis CT 09/05/172104 Signed Impressions: Service Date/Time: Tuesday, September 05, 2017 23:19 - CONCLUSION: Mild diffuse bowel wall thickening suspect for colitis. Cirrhosis and portal hypertension again seen. Interval development of right middle lobe and lower lobe nodular consolidation suspect for pneumonia. Followup recommended after appropriate medical therapy. Joe Palma MD Assessment and Plan Assessment and Plan Sepsis present on admission. Possible health care associated pneumonia. Cdiff Colitis. HIV AIDS non compliant with meds CD4 20. Not even taking her PCP prophylaxis etc. alcoholism per significant other she drinks a lot and not compliant with meds. Recs: Continue Cefepime IV Continue Flagyl IV for today will switch to oral in am. Continue Vanco oral. Start Bactrim for PCP Start Azithro for MARLA prophylaxis. Will get CT chest in am to see if this pneumonia is related to the mediastinal mass on prior CT. If it is we will need bronchoscopy and pulm consult. Poor prognosis given patients non compliance. Lynsey Metcalf MD Sep 07, 2017 09:28
[2017-09-07] MEDS ORDERED: POTASSIUM CHLORIDE 25 MEQ EFFERVESCENT TAB PO ONE (10:00)
--- NOTE | 2017-09-07 10:14 | HHI.PR ---
Subjective Remarks The patient endorsed abdominal cramping. She said she has not been taking her HIV medications since the . She was surprised to hear that she had pneumonia. Discussed with nursing and infectious disease. Objective Vitals Vital Signs Date Time Temp Pulse Resp B/P (MAP) Pulse Ox O2 Delivery O2 Flow Rate FiO2 09/07/17 06:00 77 09/07/17 04:00 77 09/07/17 04:00 98.4 77 21 125/59 (81) 100 09/07/17 02:00 86 09/07/17 00:00 98.9 75 18 99/57 (71) 09/07/17 00:00 75 09/06/17 22:00 73 09/06/17 20:00 98.2 84 21 107/57 (74) 100 09/06/17 20:00 84 09/06/17 18:00 92 24 118/56 (76) 100 09/06/17 18:00 92 09/06/17 17:00 102 24 113/58 (76) 99 09/06/17 16:00 97 09/06/17 16:00 103.2 97 30 109/56 (73) 100 09/06/17 15:00 95 31 139/60 (86) 99 09/06/17 14:00 91 29 128/60 (82) 100 09/06/17 14:00 91 09/06/17 13:00 100 32 124/65 (84) 97 09/06/17 12:00 94 09/06/17 12:00 100.4 94 29 106/51 (69) 100 09/06/17 11:00 94 27 137/60 (85) 97 09/06/17 10:00 98 32 117/59 (78) 99 09/06/17 10:00 98 I/O 09/06/17 09/06/17 09/06/17 09/07/17 09/07/17 09/07/17 07:00 15:00 23:00 07:00 15:00 23:00 Intake Total 2200 ml 1096 ml 436 ml 2175 ml Output Total 550 ml 1350 ml 450 ml Balance 1650 ml 1096 ml -914 ml 1725 ml Intake Oral 236 ml 750 ml IV Total 2200 ml 1096 ml 200 ml 1425 ml Output Urine Total 550 ml 850 ml 350 ml Stool Total 500 ml 100 ml # Voids 1 Result Diagram: 09/07/17 0345 09/07/17 0345 Imaging Last Impressions Chest X-Ray 09/05/172104 Signed Impressions: Service Date/Time: Tuesday, September 05, 2017 21:27 - CONCLUSION: 1. Slight increase in right perihilar airspace consolidation compared with August 07 most characteristic of pneumonia. Tremayne Lemon MD Abdomen/Pelvis CT 09/05/172104 Signed Impressions: Service Date/Time: Tuesday, September 05, 2017 23:19 - CONCLUSION: Mild diffuse bowel wall thickening suspect for colitis. Cirrhosis and portal hypertension again seen. Interval development of right middle lobe and lower lobe nodular consolidation suspect for pneumonia. Followup recommended after appropriate medical therapy. Joe Palma MD Objective Remarks GENERAL: Resting comfortably in bed. SKIN: Multiple small dry scaly lesions lesions. HEAD: Atraumatic. Normocephalic. No temporal or scalp tenderness. EYES: No scleral icterus. No injection or drainage. ENT: Nose without bleeding, purulent drainage or septal hematoma. Airway patent. NECK: Trachea midline. No JVD Supple, nontender, no meningeal signs. CARDIOVASCULAR: Regular rate and rhythm without murmurs, gallops, or rubs. RESPIRATORY: Bilateral crackles at the bases. GASTROINTESTINAL: Abdomen soft, non-tender, nondistended. No guarding. MUSCULOSKELETAL: Extremities without clubbing, cyanosis, or edema. NEUROLOGICAL: Motor and sensory grossly within normal limits.Normal speech. PSYCH: Mood and affect appropriate. Medications and IVs Current Medications Medications (Trade) Dose Ordered Sig/Sue Route Start Time Stop Time Status Last Admin (NS Flush) 2 ml UNSCH PRN IV FLUSH 09/06/17 00:00 (NS Flush) 2 ml BID IV FLUSH 09/06/17 09:00 09/07/17 09:06 (Narcan Inj) 0.4 mg UNSCH PRN IV PUSH 09/06/17 00:00 (Vancomycin 25 Mg/ml Liq) 500 mg QID PO 09/06/17 09:00 09/07/17 09:09 Metronidazole 100 ml @ 100 mls/hr Q6H IV 09/06/17 04:00 09/07/17 09:07 Cefepime HCl 2000 mg/Sodium Chloride 100 ml @ 200 mls/hr Q8H IV 09/06/17 04:00 09/07/17 04:56 (Questran 4 Gm Pkt) 4 gm Q8HR PO 09/06/17 14:00 09/07/17 04:55 Miscellaneous Information Patient in critical care unit? Ass... Q361D .XX 09/06/17 07:45 (Chlorhexidine 2% Cloth) 3 pack DAILY@04 TOPICAL 09/07/17 04:00 09/11/17 04:01 09/07/17 04:00 (Chlorhexidine 2% Cloth) 3 pack UNSCH PRN TOPICAL 09/06/17 07:45 09/11/17 07:37 (Roxicodone) 5 mg Q4H PRN PO 09/06/17 13:45 (Roxicodone) 10 mg Q4H PRN PO 09/06/17 13:45 09/07/17 04:55 (Mag-Al Plus Susp Liq) 30 ml Q6H PRN PO 09/06/17 13:45 (Zofran Inj) 4 mg Q8HR PRN IV PUSH 09/06/17 16:45 09/07/17 04:17 (Tylenol) 650 mg Q4H PRN PO 09/06/17 16:45 09/06/17 18:04 Sodium Bicarbonate 100 meq/Dextrose 1,100 ml @ 125 mls/hr Q8H48M IV 09/07/17 06:00 09/07/17 06:34 (Mag-Ox) 400 mg Q12HR PO 09/07/17 09:00 09/07/17 09:06 (Oscal) 500 mg Q12HR PO 09/07/17 09:00 09/07/17 09:06 A/P Assessment and Plan Severe sepsis S/t HCAP and C diff. CT abdomen and pelvis with diffuse colitis and pneumonia. - currently on PO vanc, IV Flagyl and IV cefepime. - IVFs. - ID has been consulted. - pain control as needed. - oxygen and nebs as needed. Acute renal failure S/t dehydration from GI losses. - resolved with fluids. HIV CD4 count less than 20 on March 25, 2017. - hold antiviral regimen. - ID consult pending. Hypokalemia/ Hypocalcemia S/t diarrhea. - monitor and replete as needed. - telemetry. Anemia/ Thrombocytopenia S/t HIV. - follow CBC and transfuse as needed. - d/c heparin. PPx: SCDs Rad Argueta DO Sep 07, 2017 10:14
[2017-09-07] MEDS: AZITHROMYCIN 600 MG TAB PO SCH (21:16)
[2017-09-07] MEDS ORDERED: IOHEXOL 350 MG/ML 10 ML VIAL (for RAD DIAG) IVCONTRAST ONE (23:51)
[2017-09-08] VITALS (13 sets, daily range): BP systolic 97–127; BP diastolic 59–69; PULSE 78–87; RESP 16–28; TEMP 97.6–98.4; O2SAT 100
--- NOTE | 2017-09-08 00:04 | RADRPT ---
EXAM DATE/TIME: 09/07/2017 23:37 [facility] COMPARISON: CT THORAX W CONTRAST, June 28, 2017, 8:55. INDICATIONS : Shortness of breath, evaluate for mediastinal mass and pneumonia. IV CONTRAST: 70 cc Omnipaque 350 (iohexol) IV RADIATION DOSE: 5.1 CTDIvol (mGy) MEDICAL HISTORY : Hypertension. Seizures. Stroke. HIV. Cirrhosis. SURGICAL HISTORY : None. ENCOUNTER: Initial ACUITY: 2 days PAIN SCALE: 0/10 LOCATION: chest TECHNIQUE: Volumetric scanning of the chest was performed. Using automated exposure control and adjustment of t he mA and/or kV according to patient size, radiation dose was kept as low as reasonably achievable to obtain optimal diagnostic quality images. DICOM format image data is available electronically for review and comparison. Follow-up recommendations for detected pulmonary nodules are based at a minimum on nodule size and pa tient risk factors according to Fleischner Society Guidelines. FINDINGS: There is a new focal infiltrate in the right upper lobe/right lung apex as well as patchy parenchymal infiltrates in the right upper lobe most confluent with air bronchogram formation in the right hilar region, new from previous study. There is a mass at the right hilum which is increased in size measu ring 5 x 4.7 cm in AP and transverse dimension, previously 2.3 x 2 cm in AP and transverse dimensions . There is consolidation in the superior segment of the right lower lobe with air bronchogram formati on seen, small bilateral pleural effusions and bilateral lower lobe consolidation. The right lung nod ules seen in the upper lobe on image 25 on the current study is unchanged from the previous exam. Sof t tissue windows best demonstrate the right hilar mass which surrounds the right proximal lower lobe, middle and upper lobe pulmonary arterial branches, increasing subcarinal adenopathy up to 1.4 cm in short axis dimension, precarinal lymph node is stable at 9.6 mm in short axis dimension. There is modesto ateral axillary lymphadenopathy which is also progressed measuring up to 1.7 cm on the left, and 1.8 cm on the right. There are varices and a cirrhotic appearing liver and splenomegaly identified in the upper abdomen. There is diffuse atherosclerotic calcification of the coronary arterial tree. Osseous structures are intact. CONCLUSION: Enlarging right hilar mass associated consolidation, as well as progressive adenopathy in the mediast inum and axillary regions. Cirrhosis and portal hypertension suspected. Joe Palma MD on September 07, 2017 at 23:58 Board Certified Radiologist. This report was verified electronically.
[2017-09-08] MEDS: CHLORHEXIDINE GLUCONATE 2 % 1 PACK (2 CLOTHS)(taper/protocol) TOPICAL SCH (04:00)
[2017-09-08 04:16] LABS: HEMATOCRIT 24.8 % (35.0-46.0); HEMOGLOBIN 8.7 GM/DL (11.6-15.3); MEAN CELL VOLUME 89.2 FL (80.0-100.0); MEAN CORPUSCULAR HEMOGLOBIN 31.2 PG (27.0-34.0); MEAN CORPUSCULAR HGB CONC 34.9 % (32.0-36.0); MEAN PLATELET VOLUME 9.7 FL (7.0-11.0); PLATELET COUNT 55 TH/MM3 (150-450); RED BLOOD COUNT 2.78 MIL/MM3 (4.00-5.30); RED CELL DISTRIBUTION WIDTH 17.1 % (11.6-17.2); WHITE BLOOD COUNT 5.9 TH/MM3 (4.0-11.0)
[2017-09-08 04:48] LABS: BICARBONATE 23.4 MEQ/L (21.0-32.0); CALCIUM 7.3 MG/DL (8.5-10.1); CREATININE 0.62 MG/DL (0.50-1.00); MAGNESIUM 1.6 MG/DL (1.5-2.5)
[2017-09-08 05:06] LABS: CALCIUM-PROTEIN CORRECTED 7.9 MG/DL (8.5-10.1)
[2017-09-08] MEDS: metroNIDAZOLE 500 MG INJ 100 ML IV SCH ×4 (05:28→21:00)
[2017-09-08] MEDS: CHOLESTYRAMINE 4 GM PACKET PO SCH ×3 (05:28→21:00)
[2017-09-08] MEDS: CEFEPIME INJ 2,000 MG in SODIUM CHLORIDE 0.9% INJ 100 ML IV SCH ×3 (05:28→20:58)
[2017-09-08] MEDS ORDERED: POTASSIUM CHLORIDE 25 MEQ EFFERVESCENT TAB PO ONE (08:30)
[2017-09-08] MEDS: MAGNESIUM OXIDE 400 MG TAB PO SCH ×2 (09:10→20:58)
[2017-09-08] MEDS: CALCIUM CARBONATE 1.25 GM (CA 500 MG) TAB PO SCH ×2 (09:11→20:58)
[2017-09-08] MEDS: VANCOMYCIN 25 MG/ML SUSP 100 ML BOTTLE PO SCH ×4 (09:11→20:59)
[2017-09-08] MEDS: SODIUM CHLORIDE 0.9% FLUSH 10 ML FLUSH IV FLUSH SCH ×2 (09:12→20:58)
--- NOTE | 2017-09-08 11:22 | HHI.PR ---
Subjective Remarks The patient complained of a lot of leg pain. She says she has been coughing up some blood. She says she would like to drink strawberry Ensures. She requests gloves so that she does not scratch herself so much. Discussed with nursing. Objective Vitals Vital Signs Date Time Temp Pulse Resp B/P (MAP) Pulse Ox O2 Delivery O2 Flow Rate FiO2 09/08/17 06:00 79 09/08/17 04:00 97.6 79 19 108/64 (79) 100 09/08/17 04:00 79 09/08/17 02:00 79 09/08/17 00:00 84 09/08/17 00:00 98.1 84 24 111/67 (82) 100 09/07/17 23:25 100 Nasal Cannula 3.00 09/07/17 22:00 82 09/07/17 21:17 16 09/07/17 20:00 83 09/07/17 20:00 97.8 83 15 97/56 (70) 100 09/07/17 18:00 83 09/07/17 16:00 98.5 80 21 123/67 (85) 100 09/07/17 16:00 80 09/07/17 14:00 80 09/07/17 12:00 98.6 80 21 128/72 (90) 100 09/07/17 12:00 80 I/O 09/07/17 09/07/17 09/07/17 09/08/17 09/08/17 09/08/17 07:00 15:00 23:00 07:00 15:00 23:00 Intake Total 2175 ml 550 ml 600 ml Output Total 450 ml 600 ml 1250 ml Balance 1725 ml -50 ml -650 ml Intake Oral 750 ml 350 ml 400 ml IV Total 1425 ml 200 ml 200 ml Output Urine Total 350 ml 600 ml 1050 ml Stool Total 100 ml 200 ml # Bowel Movements 5 Result Diagram: 09/08/17 0337 09/08/17 0357 Imaging Last Impressions Chest CT 09/07/17 0000 Signed Impressions: Service Date/Time: Thursday, September 07, 2017 23:37 - CONCLUSION: Enlarging right hilar mass associated consolidation, as well as progressive adenopathy in the mediastinum and axillary regions. Cirrhosis and portal hypertension suspected. Joe Palma MD Chest X-Ray 09/05/172104 Signed Impressions: Service Date/Time: Tuesday, September 05, 2017 21:27 - CONCLUSION: 1. Slight increase in right perihilar airspace consolidation compared with August 07 most characteristic of pneumonia. Tremayne Lemon MD Abdomen/Pelvis CT 09/05/172104 Signed Impressions: Service Date/Time: Tuesday, September 05, 2017 23:19 - CONCLUSION: Mild diffuse bowel wall thickening suspect for colitis. Cirrhosis and portal hypertension again seen. Interval development of right middle lobe and lower lobe nodular consolidation suspect for pneumonia. Followup recommended after appropriate medical therapy. Joe Palma MD Objective Remarks GENERAL: Resting comfortably in bed. SKIN: Multiple small dry scaly lesions lesions. HEAD: Atraumatic. Normocephalic. No temporal or scalp tenderness. EYES: No scleral icterus. No injection or drainage. ENT: Nose without bleeding, purulent drainage or septal hematoma. Airway patent. NECK: Trachea midline. No JVD Supple, nontender, no meningeal signs. CARDIOVASCULAR: Regular rate and rhythm without murmurs, gallops, or rubs. RESPIRATORY: Bilateral crackles at the bases. GASTROINTESTINAL: Abdomen soft, non-tender, nondistended. No guarding. MUSCULOSKELETAL: Extremities without clubbing, cyanosis, or edema. Tenderness to palpation in the lower extremities. NEUROLOGICAL: Motor and sensory grossly within normal limits.Normal speech. PSYCH: Mood and affect appropriate. Medications and IVs Current Medications Medications (Trade) Dose Ordered Sig/Sue Route Start Time Stop Time Status Last Admin (NS Flush) 2 ml UNSCH PRN IV FLUSH 09/06/17 00:00 (NS Flush) 2 ml BID IV FLUSH 09/06/17 09:00 09/08/17 09:12 (Narcan Inj) 0.4 mg UNSCH PRN IV PUSH 09/06/17 00:00 (Vancomycin 25 Mg/ml Liq) 500 mg QID PO 09/06/17 09:00 09/08/17 09:11 Metronidazole 100 ml @ 100 mls/hr Q6H IV 09/06/17 04:00 09/08/17 09:12 Cefepime HCl 2000 mg/Sodium Chloride 100 ml @ 200 mls/hr Q8H IV 09/06/17 04:00 09/08/17 05:28 (Questran 4 Gm Pkt) 4 gm Q8HR PO 09/06/17 14:00 09/08/17 05:28 Miscellaneous Information Patient in critical care unit? Ass... Q361D .XX 09/06/17 07:45 (Chlorhexidine 2% Cloth) 3 pack DAILY@04 TOPICAL 09/07/17 04:00 09/11/17 04:01 09/07/17 04:00 (Chlorhexidine 2% Cloth) 3 pack UNSCH PRN TOPICAL 09/06/17 07:45 09/11/17 07:37 (Roxicodone) 5 mg Q4H PRN PO 09/06/17 13:45 (Roxicodone) 10 mg Q4H PRN PO 09/06/17 13:45 09/08/17 09:11 (Mag-Al Plus Susp Liq) 30 ml Q6H PRN PO 09/06/17 13:45 (Zofran Inj) 4 mg Q8HR PRN IV PUSH 09/06/17 16:45 09/07/17 04:17 (Tylenol) 650 mg Q4H PRN PO 09/06/17 16:45 09/06/17 18:04 Sodium Bicarbonate 100 meq/Dextrose 1,100 ml @ 125 mls/hr Q8H48M IV 09/07/17 06:00 09/07/17 21:16 (Mag-Ox) 400 mg Q12HR PO 09/07/17 09:00 09/08/17 09:10 (Oscal) 500 mg Q12HR PO 09/07/17 09:00 09/08/17 09:11 (Bactrim Ds 800-160 Mg) 1 tab MoWeFr@09 PO 09/09/17 09:00 (Zithromax) 1,200 mg Q7D PO 09/07/17 18:00 09/07/17 21:16 A/P Assessment and Plan Severe sepsis S/t HCAP and C diff. CT abdomen and pelvis with diffuse colitis and pneumonia. CT chest with enlarging right hilar mass, associated consolidation, as well as progressive adenopathy in the mediastinum and axillary regions; Cirrhosis and portal hypertension suspected. ID consult appreciated. - currently on PO vanc, IV Flagyl and IV cefepime. - IVFs. - pulmonology has been consulted. - pain control as needed. Add morphine. - oxygen and nebs as needed. Acute renal failure S/t dehydration from GI losses. - resolved with fluids. HIV CD4 count less than 20 on March 25, 2017. - hold antiviral regimen. - ID following. Prophylaxis started. - pt is now DNR. Hospice consult is pending. Hypokalemia/ Hypocalcemia S/t diarrhea. - monitor and replete as needed. - telemetry. Anemia/ Thrombocytopenia S/t HIV. - follow CBC and transfuse as needed. - d/c heparin. Itching The pt requested gloves so she wouldn't scratch herself. - gloves as needed. - Benadryl. PPx: Rad Tolliver DO Sep 08, 2017 11:22
[2017-09-08] MEDS ORDERED: LORazepam 1 MG TAB PO PRN (11:30)
[2017-09-08] MEDS ORDERED: FLUMAZENIL 0.5 MG/5 ML VIAL IV PUSH PRN (11:30)
[2017-09-08] MEDS ORDERED: LORazepam 2 MG/ML VIAL IV PUSH PRN ×2 (11:30)
[2017-09-08] MEDS ORDERED: LORazepam 2 MG TAB PO PRN (11:30)
--- NOTE | 2017-09-08 12:26 | HHI.IDPN ---
Subjective Subjective Remarks is a 52 yo AAF with advanced HIV/AIDS (on HAART: ABC+ epivir+ dolutegravir and darunavir+ cobstat), followed by Dr Teague in outreach [facility]. Her CD4 in October 2016 was < 20. She now presents with blood in stool, diarrhea, she has had several episodes of hypervirulent C.diff 027 +. She also has AFB+ stool on her last admission in January.She reports ongoing diarrhea off and on. Patient presents to the ED for evaluation of abdominal pain. Patient was recently released from the hospital last week. Having nausea but no vomiting. Having chills. States that she finished antibiotic. Patient does have a history of significant C. difficile to require vancomycin. She denies any chest pain or shortness of breath. No urinary symptoms. Pain is the lower abdomen and is cramping and 7 out of 10 per patient. She does have a history of cirrhosis of the liver and chronically takes OxyContin. ID consulted for evaluation and Mment of Pneumonia and recurrent Cdiff in pt with HIV. Overnight events reviewed. No fevers No rash Diarrhea persistent now has dignishield. CT with increased mediastinal mass and pneumonia. CT AP with Colitis. Patient reports drinking 3 wine coolers a day. Antibiotics Cefepime IV Flagyl IV Vanco oral. Lines Line sites with no e/o infection. Past Medical History reviewed Allergies: Coded Allergies: No Known Allergies (Verified Allergy, Unknown, 08/07/17) Objective . Vital Signs Date Time Temp Pulse Resp B/P (MAP) Pulse Ox O2 Delivery O2 Flow Rate FiO2 09/08/17 10:00 79 09/08/17 08:00 79 09/08/17 06:00 79 09/08/17 04:00 97.6 79 19 108/64 (79) 100 09/08/17 04:00 79 09/08/17 02:00 79 09/08/17 00:00 84 09/08/17 00:00 98.1 84 24 111/67 (82) 100 09/07/17 23:25 100 Nasal Cannula 3.00 09/07/17 22:00 82 09/07/17 21:17 16 09/07/17 20:00 83 09/07/17 20:00 97.8 83 15 97/56 (70) 100 09/07/17 18:00 83 09/07/17 16:00 98.5 80 21 123/67 (85) 100 09/07/17 16:00 80 09/07/17 14:00 80 . Laboratory Tests Test 09/07/17 03:45 09/08/17 03:37 White Blood Count 8.5 TH/MM3 5.9 TH/MM3 Red Blood Count 3.17 MIL/MM3 2.78 MIL/MM3 Hemoglobin 9.6 GM/DL 8.7 GM/DL Hematocrit 29.7 % 24.8 % Mean Corpuscular Volume 93.9 FL 89.2 FL Mean Corpuscular Hemoglobin 30.4 PG 31.2 PG Mean Corpuscular Hemoglobin Concent 32.4 % 34.9 % Red Cell Distribution Width 17.3 % 17.1 % Platelet Count 52 TH/MM3 55 TH/MM3 Mean Platelet Volume 9.7 FL 9.7 FL Laboratory Tests Test 09/06/17 19:51 09/07/17 03:45 09/08/17 03:57 Lactic Acid Level 3.0 mmol/L Blood Urea Nitrogen 13 MG/DL 9 MG/DL Creatinine 0.88 MG/DL 0.62 MG/DL Random Glucose 112 MG/DL 81 MG/DL Total Protein 6.8 GM/DL 6.0 GM/DL Calcium Level 6.9 MG/DL 7.3 MG/DL Magnesium Level 1.7 MG/DL 1.6 MG/DL Sodium Level 142 MEQ/L 139 MEQ/L Potassium Level 3.3 MEQ/L 3.4 MEQ/L Chloride Level 119 MEQ/L 111 MEQ/L Carbon Dioxide Level 15.6 MEQ/L 23.4 MEQ/L Anion Gap 7 MEQ/L 5 MEQ/L Estimat Glomerular Filtration Rate 81 ML/MIN 122 ML/MIN Protein Corrected Calcium 7.1 MG/DL 7.9 MG/DL Microbiology Date/Time Source Procedure Growth Status 09/05/17 22:20 Blood Peripheral Aerobic Blood Culture - Preliminary NO GROWTH IN 3 DAYS Resulted 09/05/17 22:20 Blood Peripheral Anaerobic Blood Culture - Preliminary NO GROWTH IN 3 DAYS Resulted 09/05/17 22:10 Blood Peripheral Aerobic Blood Culture - Preliminary NO GROWTH IN 3 DAYS Resulted 09/05/17 22:10 Blood Peripheral Anaerobic Blood Culture - Preliminary NO GROWTH IN 3 DAYS Resulted 09/05/17 22:20 Stool Stool Cryptosporidium Exam - Final NEGATIVE - NO CRYPTOSPORIDIUM ANTIGEN... Complete 09/05/17 22:20 Stool Stool Stool Pus (FLY) - Final NO WBC'S SEEN Complete 09/05/17 22:20 Stool Stool Giardia Antigen (FLY) - Final NEGATIVE - NO GIARDIA ANTIGEN DETECTE... Complete Imaging Last Impressions Chest CT 09/07/17 0000 Signed Impressions: Service Date/Time: Thursday, September 07, 2017 23:37 - CONCLUSION: Enlarging right hilar mass associated consolidation, as well as progressive adenopathy in the mediastinum and axillary regions. Cirrhosis and portal hypertension suspected. Joe Palma MD Chest X-Ray 09/05/172104 Signed Impressions: Service Date/Time: Tuesday, September 05, 2017 21:27 - CONCLUSION: 1. Slight increase in right perihilar airspace consolidation compared with August 07 most characteristic of pneumonia. Tremayne Lemon MD Abdomen/Pelvis CT 09/05/172104 Signed Impressions: Service Date/Time: Tuesday, September 05, 2017 23:19 - CONCLUSION: Mild diffuse bowel wall thickening suspect for colitis. Cirrhosis and portal hypertension again seen. Interval development of right middle lobe and lower lobe nodular consolidation suspect for pneumonia. Followup recommended after appropriate medical therapy. Joe Palma MD Physical Exam GENERAL: Thin built cachectic appearing patient, in no apparent distress. SKIN: No rashes, ecchymoses or lesions. Cool and dry. HEAD: Atraumatic. Normocephalic. No temporal or scalp tenderness. EYES: Pupils equal round and reactive. Extraocular motions intact. No scleral icterus. No injection or drainage. ENT: Nose without bleeding, purulent drainage or septal hematoma. Throat without erythema, tonsillar hypertrophy or exudate. Uvula midline. Airway patent. NECK: Trachea midline. Supple, nontender, no meningeal signs. CARDIOVASCULAR: HS audible. LNs: axillary LNs palpable. RESPIRATORY: Clear to auscultation. Breath sounds equal bilaterally. No wheezes , rales, or rhonchi. GASTROINTESTINAL: Abdomen soft, non-tender, nondistended. MUSCULOSKELETAL: Extremities without clubbing, cyanosis, or edema. NEUROLOGICAL: Awake and alert. Non focal exam Psych cooperative IV line sites with no e.o infection. Assessment & Plan Remarks Sepsis present on admission. Possible health care associated pneumonia. Cdiff Colitis. HIV AIDS non compliant with meds CD4 20. Not even taking her PCP prophylaxis etc. alcoholism per significant other she drinks a lot and not compliant with meds. Recs: Continue Cefepime IV Continue Flagyl IV for today will switch to oral in am. Continue Vanco oral. Start Bactrim for PCP Start Azithro for MARLA prophylaxis. CT chest with increase in mediastinal mass on prior CT. If it is we will need bronchoscopy and pulm consult. Poor prognosis given patients non compliance. [facility] Ricardo Whitley Patient wants to be treated for pneumonia and Cdiff only. Ricardo will let me know if my help needed any further. Lynsey Metcalf MD Sep 08, 2017 12:26
[2017-09-08] MEDS: SODIUM BICARBONATE 8.4% INJ 100 MEQ in DEXTROSE 5% IN WATE 1000ML INJ 1,000 ML IV SCH ×2 (13:00)
[2017-09-08] MEDS: MORPHINE SULFATE 4 MG/ML INJ IV PUSH PRN ×2 (16:58→21:27)
[2017-09-08] MEDS: diphenhydrAMINE HCL 25 MG CAP PO PRN (21:27)
[2017-09-09] VITALS (14 sets, daily range): BP systolic 100–132; BP diastolic 56–71; PULSE 70–92; RESP 16–21; TEMP 97.9–98.2; O2SAT 97–99
--- NOTE | 2017-09-09 02:16 | RADRPT ---
EXAM DATE/TIME: 09/09/2017 01:46 [facility] COMPARISON: CHEST SINGLE AP, September 05, 2017, 21:27. INDICATIONS : Evaluate for pneumonia. MEDICAL HISTORY : Seizures. Hypertension. HIV. Diabetes. SURGICAL HISTORY : ENCOUNTER: Subsequent ACUITY: 4 - 6 days PAIN SCORE: Non-responsive. LOCATION: chest FINDINGS: Right perihilar consolidation has progressed since the prior exam. There may be slight left lung base atelectasis and/or infiltrate. CONCLUSION: Worsening right perihilar consolidation. Aym Vincent MD on September 09, 2017 at 2:13 Board Certified Radiologist. This report was verified electronically.
[2017-09-09] MEDS: CHLORHEXIDINE GLUCONATE 2 % 1 PACK (2 CLOTHS)(taper/protocol) TOPICAL SCH (04:00)
[2017-09-09] MEDS: metroNIDAZOLE 500 MG INJ 100 ML IV SCH ×4 (04:06→20:42)
[2017-09-09] MEDS: CEFEPIME INJ 2,000 MG in SODIUM CHLORIDE 0.9% INJ 100 ML IV SCH ×3 (04:06→20:41)
[2017-09-09] MEDS: SODIUM BICARBONATE 8.4% INJ 100 MEQ in DEXTROSE 5% IN WATE 1000ML INJ 1,000 ML IV SCH ×4 (04:07→20:43)
[2017-09-09] MEDS: MORPHINE SULFATE 4 MG/ML INJ IV PUSH PRN ×3 (05:08→15:12)
[2017-09-09] MEDS: CHOLESTYRAMINE 4 GM PACKET PO SCH ×3 (05:09→20:42)
[2017-09-09 07:15] LABS: HEMATOCRIT 26.1 % (35.0-46.0); HEMOGLOBIN 8.8 GM/DL (11.6-15.3); MEAN CELL VOLUME 90.3 FL (80.0-100.0); MEAN CORPUSCULAR HEMOGLOBIN 30.4 PG (27.0-34.0); MEAN CORPUSCULAR HGB CONC 33.6 % (32.0-36.0); MEAN PLATELET VOLUME 9.8 FL (7.0-11.0); PLATELET COUNT 70 TH/MM3 (150-450); WHITE BLOOD COUNT 4.4 TH/MM3 (4.0-11.0)
[2017-09-09 07:31] LABS: BICARBONATE 25.8 MEQ/L (21.0-32.0); CALCIUM 7.8 MG/DL (8.5-10.1); CREATININE 0.69 MG/DL (0.50-1.00); MAGNESIUM 1.8 MG/DL (1.5-2.5)
[2017-09-09] MEDS: MAGNESIUM OXIDE 400 MG TAB PO SCH ×2 (09:25→20:41)
[2017-09-09] MEDS: SULFAMETHOXAZOLE-TRIMETHOPRIM DS 800-160 MG TAB PO SCH (09:25)
[2017-09-09] MEDS: VANCOMYCIN 25 MG/ML SUSP 100 ML BOTTLE PO SCH ×3 (09:25→20:41)
[2017-09-09] MEDS: CALCIUM CARBONATE 1.25 GM (CA 500 MG) TAB PO SCH ×2 (09:25→20:42)
[2017-09-09] MEDS: SODIUM CHLORIDE 0.9% FLUSH 10 ML FLUSH IV FLUSH SCH ×2 (09:26→20:41)
--- NOTE | 2017-09-09 09:49 | HHI.PR ---
Subjective Remarks The patient said that she would like to go home with doctor's choice instead of hospice. She said that she had some upper abdominal pain. She said her breathing was fine. Family was at the bedside. Objective Vitals Vital Signs Date Time Temp Pulse Resp B/P (MAP) Pulse Ox O2 Delivery O2 Flow Rate FiO2 09/09/17 06:00 74 09/09/17 05:13 16 09/09/17 04:00 73 09/09/17 04:00 98.0 73 18 100/56 (71) 99 09/09/17 02:00 71 09/09/17 00:00 98.2 76 18 113/60 (77) 99 09/09/17 00:00 76 09/08/17 22:00 78 09/08/17 20:11 100 09/08/17 20:00 79 09/08/17 20:00 98.0 79 16 127/69 (88) 100 09/08/17 18:00 80 09/08/17 16:00 80 09/08/17 16:00 98.3 80 28 122/65 (84) 100 09/08/17 14:00 87 09/08/17 12:00 81 09/08/17 12:00 98.3 81 21 97/59 (72) 100 09/08/17 10:00 79 I/O 09/08/17 09/08/17 09/08/17 09/09/17 09/09/17 09/09/17 07:00 15:00 23:00 07:00 15:00 23:00 Intake Total 600 ml 575 ml 440 ml Output Total 1250 ml 1650 ml 2100 ml Balance -650 ml -1075 ml -1660 ml Intake Oral 400 ml 375 ml 240 ml IV Total 200 ml 200 ml 200 ml Output Urine Total 1050 ml 1350 ml 1900 ml Stool Total 200 ml 300 ml 200 ml Result Diagram: 09/09/17 0509 09/09/17 0509 Imaging Last Impressions Chest X-Ray 09/09/17 0600 Signed Impressions: Service Date/Time: Saturday, September 09, 2017 01:46 - CONCLUSION: Worsening right perihilar consolidation. Amy Vincent MD Chest CT 09/07/17 0000 Signed Impressions: Service Date/Time: Thursday, September 07, 2017 23:37 - CONCLUSION: Enlarging right hilar mass associated consolidation, as well as progressive adenopathy in the mediastinum and axillary regions. Cirrhosis and portal hypertension suspected. Joe Palma MD Abdomen/Pelvis CT 09/05/172104 Signed Impressions: Service Date/Time: Tuesday, September 05, 2017 23:19 - CONCLUSION: Mild diffuse bowel wall thickening suspect for colitis. Cirrhosis and portal hypertension again seen. Interval development of right middle lobe and lower lobe nodular consolidation suspect for pneumonia. Followup recommended after appropriate medical therapy. Joe Palma MD Objective Remarks GENERAL: Resting comfortably in bed. SKIN: Multiple small dry scaly lesions lesions. HEAD: Atraumatic. Normocephalic. No temporal or scalp tenderness. EYES: No scleral icterus. No injection or drainage. ENT: Nose without bleeding, purulent drainage or septal hematoma. Airway patent. NECK: Trachea midline. No JVD Supple, nontender, no meningeal signs. CARDIOVASCULAR: Regular rate and rhythm without murmurs, gallops, or rubs. RESPIRATORY: Bilateral crackles at the bases. GASTROINTESTINAL: Abdomen soft, tender in the epigastric area, nondistended. No guarding. MUSCULOSKELETAL: Extremities without clubbing, cyanosis, or edema. Tenderness to palpation in the lower extremities. NEUROLOGICAL: Motor and sensory grossly within normal limits.Normal speech. PSYCH: Mood and affect appropriate. Medications and IVs Current Medications Medications (Trade) Dose Ordered Sig/Sue Route Start Time Stop Time Status Last Admin (NS Flush) 2 ml UNSCH PRN IV FLUSH 09/06/17 00:00 (NS Flush) 2 ml BID IV FLUSH 09/06/17 09:00 09/09/17 09:26 (Narcan Inj) 0.4 mg UNSCH PRN IV PUSH 09/06/17 00:00 (Vancomycin 25 Mg/ml Liq) 500 mg QID PO 09/06/17 09:00 09/09/17 09:25 Metronidazole 100 ml @ 100 mls/hr Q6H IV 09/06/17 04:00 09/09/17 09:25 Cefepime HCl 2000 mg/Sodium Chloride 100 ml @ 200 mls/hr Q8H IV 09/06/17 04:00 09/09/17 04:06 (Questran 4 Gm Pkt) 4 gm Q8HR PO 09/06/17 14:00 09/09/17 05:09 Miscellaneous Information Patient in critical care unit? Ass... Q361D .XX 09/06/17 07:45 09/06/17 07:45 (Chlorhexidine 2% Cloth) 3 pack DAILY@04 TOPICAL 09/07/17 04:00 09/11/17 04:01 09/09/17 04:00 (Chlorhexidine 2% Cloth) 3 pack UNSCH PRN TOPICAL 09/06/17 07:45 09/11/17 07:37 (Roxicodone) 5 mg Q4H PRN PO 09/06/17 13:45 (Roxicodone) 10 mg Q4H PRN PO 09/06/17 13:45 09/08/17 09:11 (Mag-Al Plus Susp Liq) 30 ml Q6H PRN PO 09/06/17 13:45 (Zofran Inj) 4 mg Q8HR PRN IV PUSH 09/06/17 16:45 09/07/17 04:17 (Tylenol) 650 mg Q4H PRN PO 09/06/17 16:45 09/06/17 18:04 Sodium Bicarbonate 100 meq/Dextrose 1,100 ml @ 125 mls/hr Q8H48M IV 09/07/17 06:00 09/09/17 04:07 (Mag-Ox) 400 mg Q12HR PO 09/07/17 09:00 09/09/17 09:25 (Oscal) 500 mg Q12HR PO 09/07/17 09:00 09/09/17 09:25 (Bactrim Ds 800-160 Mg) 1 tab MoWeFr@09 PO 09/09/17 09:00 09/09/17 09:25 (Zithromax) 1,200 mg Q7D PO 09/07/17 18:00 09/07/17 21:16 (Romazicon Inj) 0.2 mg Q1M PRN IV PUSH 09/08/17 11:30 (Ativan) 1 mg Q4H PRN PO 09/08/17 11:30 (Ativan) 2 mg Q2H PRN PO 09/08/17 11:30 (Ativan Inj) 2 mg Q1H PRN IV PUSH 09/08/17 11:30 (Ativan Inj) 2 mg Q15M PRN IV PUSH 09/08/17 11:30 (Morphine Inj) 4 mg Q4HR PRN IV PUSH 09/08/17 11:30 09/09/17 05:08 (Benadryl) 25 mg Q6H PRN PO 09/08/17 11:30 09/08/17 21:27 A/P Assessment and Plan Severe sepsis S/t HCAP and C diff. CT abdomen and pelvis with diffuse colitis and pneumonia. CT chest with enlarging right hilar mass, associated consolidation, as well as progressive adenopathy in the mediastinum and axillary regions; Cirrhosis and portal hypertension suspected. ID consult appreciated. - currently on PO vanc, IV Flagyl and IV cefepime. - IVFs. - pulmonology has been consulted. - pain control as needed. Add morphine. - oxygen and nebs as needed. Acute renal failure S/t dehydration from GI losses. - resolved with fluids. HIV CD4 count less than 20 on March 25, 2017. - hold antiviral regimen. - ID following. Prophylaxis started. - pt is now DNR. The patient is considering hospice care, but at this time would prefer home health care. Hypokalemia/ Hypocalcemia S/t diarrhea. - monitor and replete as needed. - telemetry. Anemia/ Thrombocytopenia S/t HIV. - follow CBC and transfuse as needed. - d/c heparin. Itching The pt requested gloves so she wouldn't scratch herself. - gloves as needed. - Benadryl. PPx: Rad Tolliver DO Sep 09, 2017 09:49
--- NOTE | 2017-09-09 12:50 | MB ---
cc: VIKKI CARDONA DATE OF CONSULTATION 09/08/2017 REASON FOR CONSULTATION Lung mass HISTORY OF PRESENT ILLNESS This is a 52-year-old lady with a past history of HIV disease who has been admitted with a history of lethargy, generalized weakness, and constant diarrhea. The patient was losing weight and apparently has had some abdominal discomfort and constant loose stools and was brought in with altered mental status. During the time of admission, the patient was awake, but apparently was lethargic and she has been followed at the HIV clinic on a regular basis. Following arrival, she was suspected to have severe sepsis, lactic acidosis and Hospital-acquired pneumonia and C. Difficile. This has been treated for the past two days and she also was sent for a CT of the thorax on 09/[address] of the chest demonstrated an enlarging right hilar mass associated with consolidation and progressive adenopathy in the mediastinum in the axillary region. Also found to have cirrhosis. The patient presently is still weak, but not short of breath. She is off oxygen maintaining a sat of 94% and she denies any chest pains or hemoptysis, fevers or chills. PAST HISTORY Has included a history for: 1. Lung mass in the right hilar region which was previously noted and she had a biopsy of a lymph node that was done which showed atypical lymphs for plasmacytic infiltrates with fibrosis and no definite etiology was determined. 2. The patient also has a history of cirrhosis of the liver. 3. History of anemia of chronic disease. 4. History of HIV disease 5. Chronic esophagitis 6. Gastritis and GI bleeding 7. History of two strokes. 8. History of pancreatitis. 9. HIV AIDS PAST SURGICAL HISTORY Surgery includes: 1. 2. Exploratory laparotomy 3. Lymph node biopsy 4. Ectopic HABITS The patient was a prior smoker and has a history of smoking for over 20 years. MEDICATIONS Med list included: 1. Vancomycin po 125 mg 2. Protonix 40 mg daily 3. Lasix 40 mg daily 4. Aldactone 50 mg daily 5. Propranolol 10 mg b.i.d. FAMILY HISTORY Noncontributory REVIEW OF SYSTEMS Patient has generalized weakness, weight loss, headaches, she has loose stools, diarrhea and abdominal pains. She has no leg swelling. Denies blackout spells. She has some anxiety with depression. The other system review is as in the presenting complaint. PHYSICAL EXAMINATION This is an emaciated looking middle-aged -[place] lady who is in no acute distress. GENERAL: Pallor noted. No cyanosis. There is clubbing. No peripheral edema. There is muscle wasting of all the extremities. VITAL SIGNS: Blood pressure 120/70, pulse 85, respirations 22, temperature 98.2. HEENT: Head normocephalic. Pupils are reactive. Sclerae are injected. Tongue is dry. Ears had no inflammation. Nasal mucosa is crusted. NECK: Supple. No lymphadenopathy. No bruits or thyroid enlargement. CHEST: Equal movements with decreased excursions. There are few coarse wheezes in the right lung field. No crackles. HEART: Regular S1-S2. No murmur. ABDOMEN: Soft and benign, nontender. Liver just felt below the costal margin. The bowel sounds are active. EXTREMITIES: Decreased peripheral pulses with muscle wasting and no edema. Reflexes are 1+ with no gross motor deficits. NEUROLOGIC: Cranial nerves grossly intact. Skin was dry and cool. IMPRESSION 1. HIV/AIDS with noncompliance 2. Health care associated pneumonia with sepsis 3. C diff colitis 4. Right hilar mass probable malignancy. 5. COPD PLAN The patient has been placed on nebulized DuoNeb solution t.i.d. we will get a bedside pulmonary function study ordered, also get a coagulation profile and oxygen supplementations 1-2 liters as needed and we also decide on doing a bronchoscopy with biopsy if the patient is agreeable. We will schedule the same and discuss the case with you Dr. Escamilla. Thank you for this consultation. MD EMILY Jimenez/GENNY /12:16 PM /12:29 PM
[2017-09-09 13:50] LABS: INTERNATIONAL NORMALIZED RATIO 1.3 RATIO; PROTHROMBIN TIME - PATIENT 13.4 SEC (9.8-11.6)
--- NOTE | 2017-09-09 14:01 | HHI.IDPN ---
Subjective Subjective Remarks is a 52 yo AAF with advanced HIV/AIDS (on HAART: ABC+ epivir+ dolutegravir and darunavir+ cobstat), followed by Dr Teague in outreach [facility]. Her CD4 in October 2016 was < 20. She now presents with blood in stool, diarrhea, she has had several episodes of hypervirulent C.diff 027 +. She also has AFB+ stool on her last admission in January.She reports ongoing diarrhea off and on. Patient presents to the ED for evaluation of abdominal pain. Patient was recently released from the hospital last week. Having nausea but no vomiting. Having chills. States that she finished antibiotic. Patient does have a history of significant C. difficile to require vancomycin. She denies any chest pain or shortness of breath. No urinary symptoms. Pain is the lower abdomen and is cramping and 7 out of 10 per patient. She does have a history of cirrhosis of the liver and chronically takes OxyContin. ID consulted for evaluation and Mment of Pneumonia and recurrent Cdiff in pt with HIV. Overnight events reviewed. No fevers No rash Diarrhea persistent now has dignishield. Antibiotics Cefepime IV Flagyl IV Vanco oral. Lines Line sites with no e/o infection. Past Medical History reviewed Allergies: Coded Allergies: No Known Allergies (Verified Allergy, Unknown, 08/07/17) Objective . Vital Signs Date Time Temp Pulse Resp B/P (MAP) Pulse Ox O2 Delivery O2 Flow Rate FiO2 09/09/17 09:53 98 09/09/17 06:00 74 09/09/17 05:13 16 09/09/17 04:00 73 09/09/17 04:00 98.0 73 18 100/56 (71) 99 09/09/17 02:00 71 09/09/17 00:00 98.2 76 18 113/60 (77) 99 09/09/17 00:00 76 09/08/17 22:00 78 09/08/17 20:11 100 09/08/17 20:00 79 09/08/17 20:00 98.0 79 16 127/69 (88) 100 09/08/17 18:00 80 09/08/17 16:00 80 09/08/17 16:00 98.3 80 28 122/65 (84) 100 09/08/17 14:00 87 . Laboratory Tests Test 09/08/17 03:37 09/09/17 05:09 White Blood Count 5.9 TH/MM3 4.4 TH/MM3 Red Blood Count 2.78 MIL/MM3 2.90 MIL/MM3 Hemoglobin 8.7 GM/DL 8.8 GM/DL Hematocrit 24.8 % 26.1 % Mean Corpuscular Volume 89.2 FL 90.3 FL Mean Corpuscular Hemoglobin 31.2 PG 30.4 PG Mean Corpuscular Hemoglobin Concent 34.9 % 33.6 % Red Cell Distribution Width 17.1 % 17.0 % Platelet Count 55 TH/MM3 70 TH/MM3 Mean Platelet Volume 9.7 FL 9.8 FL Laboratory Tests Test 09/08/17 03:57 09/09/17 05:09 Blood Urea Nitrogen 9 MG/DL 8 MG/DL Creatinine 0.62 MG/DL 0.69 MG/DL Random Glucose 81 MG/DL 74 MG/DL Total Protein 6.0 GM/DL Calcium Level 7.3 MG/DL 7.8 MG/DL Magnesium Level 1.6 MG/DL 1.8 MG/DL Sodium Level 139 MEQ/L 142 MEQ/L Potassium Level 3.4 MEQ/L 4.0 MEQ/L Chloride Level 111 MEQ/L 110 MEQ/L Carbon Dioxide Level 23.4 MEQ/L 25.8 MEQ/L Anion Gap 5 MEQ/L 6 MEQ/L Estimat Glomerular Filtration Rate 122 ML/MIN 108 ML/MIN Protein Corrected Calcium 7.9 MG/DL Imaging Last Impressions Chest CT 09/07/17 0000 Signed Impressions: Service Date/Time: Thursday, September 07, 2017 23:37 - CONCLUSION: Enlarging right hilar mass associated consolidation, as well as progressive adenopathy in the mediastinum and axillary regions. Cirrhosis and portal hypertension suspected. Joe Palma MD Chest X-Ray 09/05/172104 Signed Impressions: Service Date/Time: Tuesday, September 05, 2017 21:27 - CONCLUSION: 1. Slight increase in right perihilar airspace consolidation compared with August 07 most characteristic of pneumonia. Tremayne Lemon MD Abdomen/Pelvis CT 09/05/172104 Signed Impressions: Service Date/Time: Tuesday, September 05, 2017 23:19 - CONCLUSION: Mild diffuse bowel wall thickening suspect for colitis. Cirrhosis and portal hypertension again seen. Interval development of right middle lobe and lower lobe nodular consolidation suspect for pneumonia. Followup recommended after appropriate medical therapy. Joe Palma MD Physical Exam GENERAL: Thin built cachectic appearing patient, in no apparent distress. SKIN: No rashes, ecchymoses or lesions. Cool and dry. HEAD: Atraumatic. Normocephalic. No temporal or scalp tenderness. EYES: Pupils equal round and reactive. Extraocular motions intact. No scleral icterus. No injection or drainage. ENT: Nose without bleeding, purulent drainage or septal hematoma. Throat without erythema, tonsillar hypertrophy or exudate. Uvula midline. Airway patent. NECK: Trachea midline. Supple, nontender, no meningeal signs. CARDIOVASCULAR: HS audible. LNs: axillary LNs palpable. RESPIRATORY: Clear to auscultation. Breath sounds equal bilaterally. No wheezes , rales, or rhonchi. GASTROINTESTINAL: Abdomen soft, non-tender, nondistended. MUSCULOSKELETAL: Extremities without clubbing, cyanosis, or edema. NEUROLOGICAL: Awake and alert. Non focal exam Psych cooperative IV line sites with no e.o infection. Assessment & Plan Remarks Sepsis present on admission. Possible health care associated pneumonia. Cdiff Colitis. HIV AIDS non compliant with meds CD4 20. Not even taking her PCP prophylaxis etc. alcoholism per significant other she drinks a lot and not compliant with meds. Recs: Continue Cefepime IV Continue Flagyl IV for today will switch to oral in am. Continue Vanco oral. Continue Bactrim for PCP Continue Azithro for MARLA prophylaxis. Patient wants to be treated for pneumonia and Cdiff only. Confirmed patient would like to go to hospice. covering for me this weekend and available prn. Lynsey Metcalf MD Sep 09, 2017 14:01
--- NOTE | 2017-09-09 20:00 | HHI.PR ---
Subjective Remarks Feels better but has Loose stools. Off O2. Objective Vital Signs Date Time Temp Pulse Resp B/P (MAP) Pulse Ox O2 Delivery O2 Flow Rate FiO2 09/09/17 18:00 92 09/09/17 16:00 98.2 79 19 116/67 (83) 99 09/09/17 16:00 89 09/09/17 14:00 92 09/09/17 12:00 79 09/09/17 12:00 97.9 79 19 104/56 (72) 97 09/09/17 10:00 80 09/09/17 09:53 98 09/09/17 08:00 98.2 70 21 131/63 (85) 98 09/09/17 08:00 70 09/09/17 06:00 74 09/09/17 05:13 16 09/09/17 04:00 73 09/09/17 04:00 98.0 73 18 100/56 (71) 99 09/09/17 02:00 71 09/09/17 00:00 98.2 76 18 113/60 (77) 99 09/09/17 00:00 76 09/08/17 22:00 78 09/08/17 20:11 100 09/08/17 20:00 79 09/08/17 20:00 98.0 79 16 127/69 (88) 100 I/O 09/08/17 09/08/17 09/08/17 09/09/17 09/09/17 09/09/17 07:00 15:00 23:00 07:00 15:00 23:00 Intake Total 600 ml 575 ml 440 ml Output Total 1250 ml 1650 ml 2100 ml Balance -650 ml -1075 ml -1660 ml Intake Oral 400 ml 375 ml 240 ml IV Total 200 ml 200 ml 200 ml Output Urine Total 1050 ml 1350 ml 1900 ml Stool Total 200 ml 300 ml 200 ml Result Diagram: 09/09/17 0509 09/09/17 0509 Objective Remarks This is an emaciated looking middle-aged -[place] lady who is in no acute distress. GENERAL: Pallor noted. No cyanosis. There is clubbing. No peripheral edema. There is muscle wasting of all the extremities. HEENT: Head normocephalic. Pupils are reactive. Sclerae are injected. Tongue is dry. Ears had no inflammation. Nasal mucosa is crusted. NECK: Supple. No lymphadenopathy. No bruits or thyroid enlargement. CHEST: Equal movements with decreased excursions. There are few coarse wheezes in the right lung field. No crackles. HEART: Regular S1-S2. No murmur. ABDOMEN: Soft and benign, nontender. Liver just felt below the costal margin. The bowel sounds are active. EXTREMITIES: Decreased peripheral pulses with muscle wasting and no edema. Reflexes are 1+ with no gross motor deficits. NEUROLOGIC: Cranial nerves grossly intact. Skin was dry and cool. Assessment and Plan Assessment and Plan IMPRESSION 1. HIV/AIDS with noncompliance 2. Health care associated pneumonia with sepsis 3. C diff colitis 4. Right hilar mass probable malignancy. 5. COPD PLan: 1. Will Schedule Bronchoscopy on Tuesday, and procedure with Risks including Bleeding and Pneumothorax were Discussed. 2. Nebs tid prn , Duoneb. 3. Antibiotics per ID. 4. CBC , Coag Profile in am 5. Hold any anticoagulants Chet Holliday MD Sep 09, 2017 20:00
[2017-09-10] VITALS (9 sets, daily range): BP systolic 112–130; BP diastolic 59–62; PULSE 83–94; RESP 17–19; TEMP 97.7–98.3; O2SAT 96–99
[2017-09-10] MEDS: SODIUM BICARBONATE 8.4% INJ 100 MEQ in DEXTROSE 5% IN WATE 1000ML INJ 1,000 ML IV SCH ×8 (00:43→22:26)
[2017-09-10] MEDS: MORPHINE SULFATE 4 MG/ML INJ IV PUSH PRN ×4 (00:44→19:36)
[2017-09-10] MEDS: metroNIDAZOLE 500 MG INJ 100 ML IV SCH ×4 (03:35→21:20)
[2017-09-10] MEDS: CHLORHEXIDINE GLUCONATE 2 % 1 PACK (2 CLOTHS)(taper/protocol) TOPICAL SCH (03:35)
[2017-09-10] MEDS: CEFEPIME INJ 2,000 MG in SODIUM CHLORIDE 0.9% INJ 100 ML IV SCH ×3 (03:35→21:21)
[2017-09-10] MEDS: CHOLESTYRAMINE 4 GM PACKET PO SCH ×3 (05:29→21:19)
[2017-09-10 07:05] LABS: HEMATOCRIT 23.3 % (35.0-46.0); HEMOGLOBIN 8.2 GM/DL (11.6-15.3); MEAN CORPUSCULAR HEMOGLOBIN 31.2 PG (27.0-34.0); MEAN CORPUSCULAR HGB CONC 35.1 % (32.0-36.0); MEAN PLATELET VOLUME 9.9 FL (7.0-11.0); PLATELET COUNT 66 TH/MM3 (150-450); RED BLOOD COUNT 2.62 MIL/MM3 (4.00-5.30); RED CELL DISTRIBUTION WIDTH 16.6 % (11.6-17.2); WHITE BLOOD COUNT 4.2 TH/MM3 (4.0-11.0)
[2017-09-10 07:31] LABS: BICARBONATE 26.6 MEQ/L (21.0-32.0); CALCIUM 7.5 MG/DL (8.5-10.1); CREATININE 0.81 MG/DL (0.50-1.00); MAGNESIUM 1.7 MG/DL (1.5-2.5)
[2017-09-10] MEDS: SODIUM CHLORIDE 0.9% FLUSH 10 ML FLUSH IV FLUSH SCH ×2 (09:52→21:00)
[2017-09-10] MEDS: CALCIUM CARBONATE 1.25 GM (CA 500 MG) TAB PO SCH ×2 (09:53→21:19)
[2017-09-10] MEDS: VANCOMYCIN 25 MG/ML SUSP 100 ML BOTTLE PO SCH ×4 (09:54→21:21)
[2017-09-10] MEDS: MAGNESIUM OXIDE 400 MG TAB PO SCH ×2 (09:54→21:19)
--- NOTE | 2017-09-10 10:06 | HHI.PR ---
Subjective Remarks The patient wanted to know if she would have her procedure today. She wanted anxiety medications. She still had some abdominal pain. Discussed with nursing. Objective Vitals Vital Signs Date Time Temp Pulse Resp B/P (MAP) Pulse Ox O2 Delivery O2 Flow Rate FiO2 09/10/17 08:48 98 09/10/17 06:00 85 09/10/17 04:00 98.0 83 18 115/59 (77) 98 09/10/17 04:00 83 09/10/17 02:00 93 09/10/17 01:56 16 09/10/17 00:49 18 09/10/17 00:00 85 09/10/17 00:00 98.3 85 17 121/62 (81) 96 09/09/17 22:00 90 09/09/17 20:00 98.0 78 16 132/71 (91) 97 09/09/17 20:00 78 09/09/17 18:00 92 09/09/17 16:00 98.2 79 19 116/67 (83) 99 09/09/17 16:00 89 09/09/17 14:00 92 09/09/17 12:00 79 09/09/17 12:00 97.9 79 19 104/56 (72) 97 I/O 09/09/17 09/09/17 09/09/17 09/10/17 09/10/17 09/10/17 07:00 15:00 23:00 07:00 15:00 23:00 Intake Total 440 ml 850 ml 200 ml Output Total 2100 ml 2300 ml 1300 ml Balance -1660 ml -1450 ml -1100 ml Intake Oral 240 ml 650 ml IV Total 200 ml 200 ml 200 ml Output Urine Total 1900 ml 2100 ml 1100 ml Stool Total 200 ml 200 ml 200 ml Result Diagram: 09/10/17 0630 09/10/17 0630 Imaging Last Impressions Chest X-Ray 09/09/17 0600 Signed Impressions: Service Date/Time: Saturday, September 09, 2017 01:46 - CONCLUSION: Worsening right perihilar consolidation. Amy Vincent MD Chest CT 09/07/17 0000 Signed Impressions: Service Date/Time: Thursday, September 07, 2017 23:37 - CONCLUSION: Enlarging right hilar mass associated consolidation, as well as progressive adenopathy in the mediastinum and axillary regions. Cirrhosis and portal hypertension suspected. Joe Palma MD Abdomen/Pelvis CT 09/05/172104 Signed Impressions: Service Date/Time: Tuesday, September 05, 2017 23:19 - CONCLUSION: Mild diffuse bowel wall thickening suspect for colitis. Cirrhosis and portal hypertension again seen. Interval development of right middle lobe and lower lobe nodular consolidation suspect for pneumonia. Followup recommended after appropriate medical therapy. Joe Palma MD Objective Remarks GENERAL: Resting comfortably in bed. SKIN: Multiple small dry scaly lesions lesions. HEAD: Atraumatic. Normocephalic. No temporal or scalp tenderness. EYES: No scleral icterus. No injection or drainage. ENT: Nose without bleeding, purulent drainage or septal hematoma. Airway patent. NECK: Trachea midline. No JVD Supple, nontender, no meningeal signs. CARDIOVASCULAR: Regular rate and rhythm without murmurs, gallops, or rubs. RESPIRATORY: Bilateral crackles at the bases. GASTROINTESTINAL: Abdomen soft, tender in the epigastric area, nondistended. No guarding. MUSCULOSKELETAL: Extremities without clubbing, cyanosis, or edema. Tenderness to palpation in the lower extremities. NEUROLOGICAL: Motor and sensory grossly within normal limits.Normal speech. PSYCH: Mood and affect appropriate. Medications and IVs Current Medications Medications (Trade) Dose Ordered Sig/Sue Route Start Time Stop Time Status Last Admin (NS Flush) 2 ml UNSCH PRN IV FLUSH 09/06/17 00:00 (NS Flush) 2 ml BID IV FLUSH 09/06/17 09:00 09/10/17 09:52 (Narcan Inj) 0.4 mg UNSCH PRN IV PUSH 09/06/17 00:00 (Vancomycin 25 Mg/ml Liq) 500 mg QID PO 09/06/17 09:00 09/10/17 09:54 Metronidazole 100 ml @ 100 mls/hr Q6H IV 09/06/17 04:00 09/10/17 09:52 Cefepime HCl 2000 mg/Sodium Chloride 100 ml @ 200 mls/hr Q8H IV 09/06/17 04:00 09/10/17 03:35 (Questran 4 Gm Pkt) 4 gm Q8HR PO 09/06/17 14:00 09/10/17 05:29 Miscellaneous Information Patient in critical care unit? Ass... Q361D .XX 09/06/17 07:45 09/06/17 07:45 (Chlorhexidine 2% Cloth) 3 pack DAILY@04 TOPICAL 09/07/17 04:00 09/11/17 04:01 09/10/17 03:35 (Chlorhexidine 2% Cloth) 3 pack UNSCH PRN TOPICAL 09/06/17 07:45 09/11/17 07:37 (Roxicodone) 5 mg Q4H PRN PO 09/06/17 13:45 09/10/17 00:56 (Roxicodone) 10 mg Q4H PRN PO 09/06/17 13:45 09/08/17 09:11 (Mag-Al Plus Susp Liq) 30 ml Q6H PRN PO 09/06/17 13:45 (Zofran Inj) 4 mg Q8HR PRN IV PUSH 09/06/17 16:45 09/07/17 04:17 (Tylenol) 650 mg Q4H PRN PO 09/06/17 16:45 09/06/17 18:04 Sodium Bicarbonate 100 meq/Dextrose 1,100 ml @ 125 mls/hr Q8H48M IV 09/07/17 06:00 09/10/17 09:52 (Mag-Ox) 400 mg Q12HR PO 09/07/17 09:00 09/10/17 09:54 (Oscal) 500 mg Q12HR PO 09/07/17 09:00 09/10/17 09:53 (Bactrim Ds 800-160 Mg) 1 tab MoWeFr@09 PO 09/09/17 09:00 09/09/17 09:25 (Zithromax) 1,200 mg Q7D PO 09/07/17 18:00 09/07/17 21:16 (Romazicon Inj) 0.2 mg Q1M PRN IV PUSH 09/08/17 11:30 (Ativan) 1 mg Q4H PRN PO 09/08/17 11:30 (Ativan) 2 mg Q2H PRN PO 09/08/17 11:30 (Ativan Inj) 2 mg Q1H PRN IV PUSH 09/08/17 11:30 (Ativan Inj) 2 mg Q15M PRN IV PUSH 09/08/17 11:30 (Morphine Inj) 4 mg Q4HR PRN IV PUSH 09/08/17 11:30 09/10/17 09:53 (Benadryl) 25 mg Q6H PRN PO 09/08/17 11:30 09/08/17 21:27 A/P Assessment and Plan Severe sepsis S/t HCAP and C diff. CT abdomen and pelvis with diffuse colitis and pneumonia. CT chest with enlarging right hilar mass, associated consolidation, as well as progressive adenopathy in the mediastinum and axillary regions; Cirrhosis and portal hypertension suspected. ID and pulmonology consults appreciated. - currently on PO vanc, IV Flagyl and IV cefepime. - IVFs. - pain control as needed. Add morphine. - oxygen and nebs as needed. - bronch per pulmonology on Tuesday. Acute renal failure S/t dehydration from GI losses. - resolved with fluids. HIV CD4 count less than 20 on March 25, 2017. - hold antiviral regimen. - ID following. Prophylaxis started. - pt is now DNR. The patient is considering hospice care, but at this time would prefer home health care. Hypokalemia/ Hypocalcemia S/t diarrhea. - monitor and replete as needed. - telemetry. Anemia/ Thrombocytopenia S/t HIV. - follow CBC and transfuse as needed. - d/c heparin. Itching The pt requested gloves so she wouldn't scratch herself. - gloves as needed. - Benadryl. PPx: SCDs Discharge Planning Transfer to floor Rad Argueta DO Sep 10, 2017 10:06
[2017-09-10] MEDS: diphenhydrAMINE HCL 25 MG CAP PO PRN (21:19)
[2017-09-11] VITALS (10 sets, daily range): BP systolic 104–143; BP diastolic 56–75; PULSE 65–85; RESP 17–20; TEMP 97.2–98.1; O2SAT 93–99
[2017-09-11] MEDS: CEFEPIME INJ 2,000 MG in SODIUM CHLORIDE 0.9% INJ 100 ML IV SCH ×3 (03:06→20:44)
[2017-09-11] MEDS: metroNIDAZOLE 500 MG INJ 100 ML IV SCH ×4 (03:06→22:37)
[2017-09-11] MEDS: CHLORHEXIDINE GLUCONATE 2 % 1 PACK (2 CLOTHS)(taper/protocol) TOPICAL SCH (03:06)
[2017-09-11] MEDS: CHOLESTYRAMINE 4 GM PACKET PO SCH ×3 (05:15→22:37)
[2017-09-11] MEDS: SODIUM BICARBONATE 8.4% INJ 100 MEQ in DEXTROSE 5% IN WATE 1000ML INJ 1,000 ML IV SCH ×4 (06:34→18:08)
[2017-09-11] MEDS: SODIUM CHLORIDE 0.9% FLUSH 10 ML FLUSH IV FLUSH SCH ×2 (09:00→20:48)
[2017-09-11 09:02] LABS: HEMATOCRIT 25.6 % (35.0-46.0); HEMOGLOBIN 8.6 GM/DL (11.6-15.3); MEAN CELL VOLUME 89.5 FL (80.0-100.0); MEAN CORPUSCULAR HGB CONC 33.6 % (32.0-36.0); MEAN PLATELET VOLUME 10.8 FL (7.0-11.0); PLATELET COUNT 73 TH/MM3 (150-450); RED BLOOD COUNT 2.86 MIL/MM3 (4.00-5.30); RED CELL DISTRIBUTION WIDTH 16.3 % (11.6-17.2); WHITE BLOOD COUNT 3.6 TH/MM3 (4.0-11.0)
[2017-09-11] MEDS: CALCIUM CARBONATE 1.25 GM (CA 500 MG) TAB PO SCH ×2 (09:27→20:43)
[2017-09-11] MEDS: VANCOMYCIN 25 MG/ML SUSP 100 ML BOTTLE PO SCH ×4 (09:27→20:44)
[2017-09-11] MEDS: MAGNESIUM OXIDE 400 MG TAB PO SCH ×2 (09:27→20:43)
[2017-09-11 09:40] LABS: BICARBONATE 29.3 MEQ/L (21.0-32.0); CALCIUM 7.2 MG/DL (8.5-10.1); CREATININE 0.79 MG/DL (0.50-1.00); MAGNESIUM 1.9 MG/DL (1.5-2.5)
[2017-09-11 10:15] LABS: CALCIUM-PROTEIN CORRECTED 7.5 MG/DL (8.5-10.1); TOTAL PROTEIN 6.6 GM/DL (6.4-8.2)
--- NOTE | 2017-09-11 14:33 | HHI.PR ---
Subjective Remarks Patient reports she is feeling okay. She reports her breathing is okay. Objective Vitals Vital Signs Date Time Temp Pulse Resp B/P (MAP) Pulse Ox O2 Delivery O2 Flow Rate FiO2 09/11/17 13:38 20 09/11/17 13:35 99 Room Air 09/11/17 12:00 98.1 65 18 135/60 (85) 99 09/11/17 10:01 99 09/11/17 08:00 97.9 71 18 109/69 (82) 99 09/11/17 04:00 97.7 79 17 143/75 (97) 93 09/11/17 04:00 Room Air 09/11/17 03:45 74 09/11/17 00:00 98.0 81 17 104/56 (72) 95 09/11/17 00:00 Room Air 09/10/17 23:46 87 09/10/17 21:20 Room Air 09/10/17 20:00 97.7 92 19 130/60 (83) 96 09/10/17 19:51 86 09/10/17 18:54 18 09/10/17 17:00 98.0 94 18 112/62 (79) 99 I/O 09/10/17 09/10/17 09/10/17 09/11/17 09/11/17 09/11/17 07:00 15:00 23:00 07:00 15:00 23:00 Intake Total 200 ml 1300 ml 1560 ml Output Total 1300 ml Balance -1100 ml 1300 ml 1560 ml Intake Oral 360 ml IV Total 200 ml 1300 ml 1200 ml Output Urine Total 1100 ml Stool Total 200 ml # Voids 6 Result Diagram: 09/11/17 0815 09/11/17 0815 Objective Remarks GENERAL: Thin appearing female in no acute distress CARDIOVASCULAR: Normal rate and regular rhythm without murmurs, gallops, or rubs. RESPIRATORY: Good respiratory efforts. Diminished breath sounds at the bases bilaterally GASTROINTESTINAL: Abdomen soft, non-tender, non-distended. Normal active bowel sounds MUSCULOSKELETAL: Extremities without cyanosis, or edema. NEURO: Alert & Oriented x4 to person, place, time, situation. Moves all ext x4 PSYCH: Appropriate mood and affect. A/P Assessment and Plan 52-year-old female with: Severe sepsis S/t HCAP and C diff. CT abdomen and pelvis with diffuse colitis and pneumonia. CT chest with enlarging right hilar mass, associated consolidation, as well as progressive adenopathy in the mediastinum and axillary regions; Cirrhosis and portal hypertension suspected. ID and pulmonology consults appreciated. - currently on PO vanc, IV Flagyl and IV cefepime. - IVFs. - pain control as needed. Add morphine. - oxygen and nebs as needed. - bronch per pulmonology on Tuesday. Acute renal failure S/t dehydration from GI losses. - resolved with fluids. Continue to monitor. HIV CD4 count less than 20 on March 25, 2017. - hold antiviral regimen. - ID following. Prophylaxis started. - pt is now DNR. The patient is considering hospice care, but at this time would prefer home health care. Anemia/ Thrombocytopenia S/t HIV. - follow CBC and transfuse as needed. - d/c heparin. Itching - gloves as needed. - Benadryl. PPx: Carito Townsend MD Sep 11, 2017 14:33
--- NOTE | 2017-09-11 15:41 | EKG ---
Date Performed: 09/10/2017 Time Performed: 23:55:24 PTAGE: 52 years EKG: Sinus rhythm Anterior T wave changes are nonspecific Since previous tracing, no significant change noted Borderli ne ECG PREVIOUS TRACING : 08/07/2017 20.38.12 DOCTOR: Homar Masterson Interpretating Date/Time 09/11/2017 15:40:46
[2017-09-11] MEDS: diphenhydrAMINE HCL 25 MG CAP PO PRN (20:43)
[2017-09-12] VITALS (9 sets, daily range): BP systolic 122–160; BP diastolic 66–83; PULSE 69–82; RESP 17–20; TEMP 97.4–98; O2SAT 95–99
[2017-09-12] MEDS: SODIUM BICARBONATE 8.4% INJ 100 MEQ in DEXTROSE 5% IN WATE 1000ML INJ 1,000 ML IV SCH ×6 (01:24→19:02)
[2017-09-12] MEDS: CEFEPIME INJ 2,000 MG in SODIUM CHLORIDE 0.9% INJ 100 ML IV SCH ×3 (03:00→22:10)
[2017-09-12] MEDS: metroNIDAZOLE 500 MG INJ 100 ML IV SCH ×4 (03:00→22:21)
[2017-09-12] MEDS: CHOLESTYRAMINE 4 GM PACKET PO SCH ×3 (05:07→22:22)
[2017-09-12] MEDS: SULFAMETHOXAZOLE-TRIMETHOPRIM DS 800-160 MG TAB PO SCH (08:39)
[2017-09-12] MEDS: SODIUM CHLORIDE 0.9% FLUSH 10 ML FLUSH IV FLUSH SCH ×2 (08:39→22:09)
[2017-09-12] MEDS: MAGNESIUM OXIDE 400 MG TAB PO SCH ×2 (08:39→22:09)
[2017-09-12] MEDS: CALCIUM CARBONATE 1.25 GM (CA 500 MG) TAB PO SCH ×2 (08:39→22:09)
[2017-09-12 09:25] LABS: HEMATOCRIT 27.2 % (35.0-46.0); HEMOGLOBIN 9.5 GM/DL (11.6-15.3); MEAN CELL VOLUME 88.6 FL (80.0-100.0); MEAN CORPUSCULAR HEMOGLOBIN 30.8 PG (27.0-34.0); MEAN CORPUSCULAR HGB CONC 34.8 % (32.0-36.0); MEAN PLATELET VOLUME 9.9 FL (7.0-11.0); PLATELET COUNT 71 TH/MM3 (150-450); RED BLOOD COUNT 3.07 MIL/MM3 (4.00-5.30); RED CELL DISTRIBUTION WIDTH 16.5 % (11.6-17.2); WHITE BLOOD COUNT 4.1 TH/MM3 (4.0-11.0)
[2017-09-12 09:53] LABS: CALCIUM 7.5 MG/DL (8.5-10.1); CREATININE 0.72 MG/DL (0.50-1.00)
[2017-09-12] MEDS: VANCOMYCIN 25 MG/ML SUSP 100 ML BOTTLE PO SCH ×4 (10:31→22:18)
[2017-09-12] MEDS ORDERED: RESP: ALBUTEROL 2.5 MG/3 ML NEB (PRN) NEB (12:15)
[2017-09-12] MEDS ORDERED: DO NOT ADM ANY ANTICOAGULANT DRUGS PRN ×2 (12:27→13:45)
--- NOTE | 2017-09-12 13:10 | RADRPT ---
EXAM DATE/TIME: 09/12/2017 12:43 [facility] COMPARISON: CT THORAX W CONTRAST, September 07, 2017, 23:37. CHEST SINGLE AP, September 09, 2017, 1:46. INDICATIONS : Shortness of breath. MEDICAL HISTORY : Seizures. Hypertension. HIV. Diabetes SURGICAL HISTORY : None. ENCOUNTER: Subsequent ACUITY: 4 - 6 days PAIN SCORE: 0/10 LOCATION: Bilateral chest FINDINGS: CT head demonstrated right lung mass and hilar adenopathy. On the chest x-ray, the opacity in the ri ght midlung is larger than chest x-ray on 09/09/17, now measuring 5.5 cm. There is a new small infilt rate measuring less than 2 cm in the right lung apex. Left lung is clear. Both hemidiaphragms are w ell delineated. The heart is stable in size. CONCLUSION: Increasing size right mid lung masslike opacity. There is a new small infiltrate in the right apex. Jose Long MD on September 12, 2017 at 13:07 Board Certified Radiologist. This report was verified electronically.
--- NOTE | 2017-09-12 13:21 | HHI.PR ---
Subjective Remarks Patient reports she is feeling okay. She status post bronchoscopy and wants to eat. Wondered when she will be able to go home. Still having liquid stool in the bag. Objective Vitals Vital Signs Date Time Temp Pulse Resp B/P (MAP) Pulse Ox O2 Delivery O2 Flow Rate FiO2 09/12/17 08:03 97.4 75 17 122/71 (88) 98 09/12/17 04:00 Room Air 09/12/17 04:00 97.4 76 18 128/66 (86) 99 09/12/17 04:00 18 09/12/17 03:53 72 09/12/17 00:00 Room Air 09/12/17 00:00 98.0 78 18 133/83 (100) 95 09/11/17 23:59 79 09/11/17 20:45 Room Air 09/11/17 20:06 85 09/11/17 20:00 97.2 78 18 118/67 (84) 98 09/11/17 16:00 68 09/11/17 16:00 97.8 73 20 122/68 (86) 95 09/11/17 13:35 99 Room Air I/O 09/11/17 09/11/17 09/11/17 09/12/17 09/12/17 09/12/17 07:00 15:00 23:00 07:00 15:00 23:00 Intake Total 1560 ml 300 ml 1400 ml Output Total 300 ml Balance 1560 ml 300 ml 1100 ml Intake Oral 360 ml 0 ml 0 ml IV Total 1200 ml 300 ml 1400 ml Stool Total 300 ml # Voids 6 12 11 Result Diagram: 09/12/1782209/12/1723 Objective Remarks GENERAL: Thin appearing female in no acute distress CARDIOVASCULAR: Normal rate and regular rhythm without murmurs, gallops, or rubs. RESPIRATORY: Good respiratory efforts. Diminished breath sounds at the bases bilaterally GASTROINTESTINAL: Abdomen soft, non-tender, non-distended. Normal active bowel sounds MUSCULOSKELETAL: Extremities without cyanosis, or edema. NEURO: Alert & Oriented x4 to person, place, time, situation. Moves all ext x4 PSYCH: Appropriate mood and affect. A/P Assessment and Plan 52-year-old female with: Severe sepsis S/t HCAP and C diff. CT abdomen and pelvis with diffuse colitis and pneumonia. CT chest with enlarging right hilar mass, associated consolidation, as well as progressive adenopathy in the mediastinum and axillary regions; Cirrhosis and portal hypertension suspected. ID and pulmonology consults appreciated. - currently on PO vanc, IV Flagyl and IV cefepime. - IVFs. - pain control as needed. Add morphine. - oxygen and nebs as needed. -Status post bronchoscopy today per pulmonology. Pathology and cytology pending.. Acute renal failure S/t dehydration from GI losses. - resolved with fluids. Continue to monitor. HIV CD4 count less than 20 on March 25, 2017. - hold antiviral regimen. - ID following. Prophylaxis started. - pt is now DNR. The patient is considering hospice care, but at this time would prefer home health care. Her immediate goal is to treat pneumonia and C. difficile colitis. Anemia/ Thrombocytopenia S/t HIV. - follow CBC and transfuse as needed. Itching - gloves as needed. - Benadryl. PPx: Carito Townsend MD Sep 12, 2017 13:20
--- NOTE | 2017-09-12 17:30 | PD.CONS ---
Consult Service Palliative Care Consult Requested By Dr. Blu Metcalf Primary Care Physician Jeremiah Garcia MD Reason for Consultation a. To assist with evaluation and management of symptoms including: Pain, dyspnea b. To assist medical decision maker(s) with: better understanding of current medical conditions; weighing benefits/burdens of medical treatment options; making medical treatment decisions. HPI History of Present Illness This is a 52-year-old -Thai female with a history of HIV/AIDS who was admitted to the hospital 09/05/2017. She had been complaining of constant diarrhea and does have a history of recurrent C. 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 She is somewhat noncompliant with her HIV meds. CD4 count was less than 20 on March 25, 2017. She was noted to have a hilar mass on her chest x-ray from the prior admission. She underwent lymph node biopsy showing atypical lymphoid plasmacytic infiltrate and fibrosis at that time. At this admission she had requested hospice and signed consents for hospice. Palliative care was consulted for clarification of goals as patient is undergoing bronchoscopy with biopsy of hilar mass. Patient was seen in room 1401, n.p.o. pending bronchoscopy. She denies any significant discomfort at this time and is not short of breath. She stated she is undergoing a bronchoscopy because "she was told she needed it" and is still desirous of being discharged home with hospice. She does not wish to stay in the hospital awaiting the results of the biopsy. Clinical findings: * Laboratory: WBC 4.1, hemoglobin 9.5, hematocrit 27.2, platelets 71, sodium 141 , potassium 3.5, BUN 5, creatinine 0.72, calcium 7.5 * Radiology: Chest x-ray shows increasing size of the mid right lung masslike opacity with a new small infiltrate in the right apex. . Function/Cognitive Trajectory Significant other at bedside, he is in agreement with the patient's wishes to go home with hospice. . Review of Systems Constitutional: COMPLAINS OF: Fatigue, Weight loss, Change in appetite Endocrine: DENIES: Abnorml menstrual pattern, Heat/cold intolerance, Polydipsia , Polyuria, Polyphagia Eyes: DENIES: Blurred vision, Diplopia, Eye inflammation, Eye pain, Vision loss , Photosensitivity, Double Vision, Blind spots Ears, nose, mouth, throat: DENIES: Tinnitus, Hearing loss, Vertigo, Nasal discharge, Oral lesions, Throat pain, Hoarseness, Ear Pain, Running Nose, Epistaxis, Sinus Pain, Toothache, Odynophagia Respiratory: COMPLAINS OF: Shortness of breath Cardiovascular: COMPLAINS OF: Dyspnea on Exertion Gastrointestinal: DENIES: Abdominal pain, Black stools, Bloody stools, Constipation, Diarrhea, Nausea, Vomiting, Difficulty Swallowing, Anorexia, Dyspepsia or heartburn, Excessive gas, Bloating, Vomiting blood Genitourinary: DENIES: Abnormal vaginal bleeding, Dysmenorrhea, Dyspareunia, Sexual dysfunction, Urinary frequency, Urinary incontinence, Urgency, Hematuria , Dysuria, Nocturia, Vaginal discharge, Hesitancy, Dribbling, Decreased stream Musculoskeletal: COMPLAINS OF: Muscle aches Integumentary: DENIES: Abnormal pigmentation, Pruritus, Rash, Nail changes, Breast masses, Breast skin changes, Nipple discharge, Nodules, Tumors, Excessive dryness, Non-healing sores Hematologic/Lymphatics: DENIES: Bruising, Lymphadenopathy, Prolonged bleed w/ proced, History of transfusions Immunologic/Allergic: DENIES: Eczema, Urticaria Neurologic: DENIES: Abnormal gait, Headache, Localized weakness, Paresthesias, Seizures, Speech Problems, Tremor, Poor Balance, Change in smell or taste Psychiatric: DENIES: Anxiety, Confusion, Mood changes, Depression, Hallucinations, Agitation, Suicidal Ideation, Homicidal Ideation, Delusions, Anhedonia Past Family Social History Coded Allergies: No Known Allergies (Verified Allergy, Unknown, 08/07/17) Past Medical History HIV/AIDS CVA 2 with recent suturable hemiparesis History of seizures in the distant past Esophageal stricture Schatzki's ring Gastritis Colonic polyposis Recurrent C. difficile. Blood strain Mycobacterial infection/AFB found in stool Ascites, requiring paracentesis in the past Cirrhosis Malnutrition Pancreatitis GI bleeding Anemia Diabetes mellitus Past Surgical History Ectopic Exploratory laparotomy section EGD/colonoscopy . Reported Medications Reported Meds & Active Scripts Active Vancomycin (Vancomycin HCl) 125 Mg Cap 125 Mg PO QID Protonix (Pantoprazole Sodium) 40 Mg Tab 40 Mg PO DAILY Furosemide 40 Mg Tab 40 Mg PO DAILY Aldactone (Spironolactone) 50 Mg Tab 50 Mg PO DAILY Propranolol (Propranolol HCl) 10 Mg Tab 10 Mg PO Q12HR Reported Ferrous Sulfate 325 Mg (65 Mg Iron) Tablet 325 Mg PO BIDPC . Current Medications Medications (Trade) Dose Ordered Sig/Sue Route Start Time Stop Time Status Last Admin (NS Flush) 2 ml UNSCH PRN IV FLUSH 09/06/17 00:00 (NS Flush) 2 ml BID IV FLUSH 09/06/17 09:00 09/12/17 08:39 (Narcan Inj) 0.4 mg UNSCH PRN IV PUSH 09/06/17 00:00 (Vancomycin 25 Mg/ml Liq) 500 mg QID PO 09/06/17 09:00 09/12/17 14:43 Metronidazole 100 ml @ 100 mls/hr Q6H IV 09/06/17 04:00 09/12/17 08:40 Cefepime HCl 2000 mg/Sodium Chloride 100 ml @ 200 mls/hr Q8H IV 09/06/17 04:00 09/12/17 12:50 (Questran 4 Gm Pkt) 4 gm Q8HR PO 09/06/17 14:00 09/12/17 14:43 Miscellaneous Information Patient in critical care unit? Ass... Q361D .XX 09/06/17 07:45 09/06/17 07:45 (Roxicodone) 5 mg Q4H PRN PO 09/06/17 13:45 09/10/17 16:41 (Roxicodone) 10 mg Q4H PRN PO 09/06/17 13:45 09/12/17 06:59 (Mag-Al Plus Susp Liq) 30 ml Q6H PRN PO 09/06/17 13:45 (Zofran Inj) 4 mg Q8HR PRN IV PUSH 09/06/17 16:45 09/07/17 04:17 (Tylenol) 650 mg Q4H PRN PO 09/06/17 16:45 09/06/17 18:04 Sodium Bicarbonate 100 meq/Dextrose 1,100 ml @ 125 mls/hr Q8H48M IV 09/07/17 06:00 09/12/17 09:59 (Mag-Ox) 400 mg Q12HR PO 09/07/17 09:00 09/12/17 08:39 (Oscal) 500 mg Q12HR PO 09/07/17 09:00 09/12/17 08:39 (Bactrim Ds 800-160 Mg) 1 tab MoWeFr@09 PO 09/09/17 09:00 09/12/17 08:39 (Zithromax) 1,200 mg Q7D PO 09/07/17 18:00 09/07/17 21:16 (Romazicon Inj) 0.2 mg Q1M PRN IV PUSH 09/08/17 11:30 (Ativan) 1 mg Q4H PRN PO 09/08/17 11:30 (Ativan) 2 mg Q2H PRN PO 09/08/17 11:30 (Ativan Inj) 2 mg Q1H PRN IV PUSH 09/08/17 11:30 (Ativan Inj) 2 mg Q15M PRN IV PUSH 09/08/17 11:30 (Morphine Inj) 4 mg Q4HR PRN IV PUSH 09/08/17 11:30 09/10/17 19:36 (Benadryl) 25 mg Q6H PRN PO 09/08/17 11:30 09/11/17 20:43 (Albuterol Neb) 2.5 mg UNSCH X1 PRN NEB 09/12/17 12:15 09/13/17 12:14 Miscellaneous Information ALL NURSING DEPARTME... UNSCH PRN .XX 09/12/17 13:45 09/13/17 13:44 Miscellaneous Information ALL NURSING DEPARTME... UNSCH PRN .XX 09/12/17 12:27 09/13/17 12:26 . Family History Mother of hepatic cirrhosis, otherwise no history of heart disease diabetes or cancer. . Substance Use Tobacco: Smoked one pack per day for 30 years, quit in 2017. Alcohol: History of heavy EtOH use in the past, ending around 08/10. Currently an occasional beer. Prescription med abuse: No known history of prescription drug abuse. Illicits: History of cocaine abuse. . Psychosocial History She is born in [place] and completed high school through the 10th grade. 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 She was never and has no children. She has a partner for over 30 years, Brandon Munoz. Reports 17 siblings. . Spiritual/Cultural Factors States she is a Protestant, not currently attending any local confucianism. Aware and accepting of the availability of surfboard designer visits. . Living Will: Never completed Health Care Surrogate: Copy in medical record Durable Power of Health Navigator: Never completed Health Care Surrogate(s): She had previously completed HCS form designating Grant Ruelas as her primary and Brandon Munoz as alternate . . Documented care wishes: Patient wishes a DO NOT RESUSCITATE status. . Today's verbally stated goals: Patient is aware that her health is very poor but is not anticipating anytime soon. She does not wish resuscitative attempts at this time. . Family/friends goals: Her significant other, Brandon Munoz, was in the room during our discussion and he nodded agreement with her decision for no resuscitation and verbally agreed with that. . Ethical and Legal Issues Patient appears capacitated to make her own healthcare decisions. She has completed health care surrogate paperwork designating her primary healthcare surrogate as her nephew Grant and her alternative as her partner Brandon. Mr. Munoz was aware of that decision and also in agreement with that. . Physical Exam Vital Signs Date Time Temp Pulse Resp B/P (MAP) Pulse Ox O2 Delivery O2 Flow Rate FiO2 09/12/17 16:15 97.7 72 17 136/77 (96) 95 09/12/17 13:05 72 16 123/75 (91) 96 Room Air 09/12/17 12:45 75 16 140/82 (101) 95 Room Air 09/12/17 12:29 97.6 85 16 128/71 (90) 98 Simple Mask 6 09/12/17 08:03 97.4 75 17 122/71 (88) 98 09/12/17 08:00 82 09/12/17 04:00 Room Air 09/12/17 04:00 97.4 76 18 128/66 (86) 99 09/12/17 04:00 18 09/12/17 03:53 72 09/12/17 00:00 Room Air 09/12/17 00:00 98.0 78 18 133/83 (100) 95 09/11/17 23:59 79 09/11/17 20:45 Room Air 09/11/17 20:06 85 09/11/17 20:00 97.2 78 18 118/67 (84) 98 . Exam CONSTITUTIONAL/GENERAL: This is an ill appearing, cachectic female in no acute distress. TUBES/LINES/DRAINS: PIV's LAC, right hand, RFA, O2 via nasal cannula. SKIN: Multiple small lesions seen on arms and legs. HEAD: Atraumatic. Normocephalic. EYES: Pupils equal and round and reactive. Extraocular motions intact. No scleral icterus. No injection or drainage. Fundi not examined. ENT: Hearing grossly normal. Nose without bleeding or purulent drainage. Throat without visible erythema, exudates, masses, or lesions. Poor dentition. NECK: Trachea midline. Supple, nontender. No palpable thyroid enlargement or nodularity. CARDIOVASCULAR: Regular rate and rhythm without murmurs, gallops, or rubs. No JVD. Peripheral pulses symmetric. RESPIRATORY/CHEST: Symmetric, unlabored respirations. Clear to auscultation. Breath sounds equal bilaterally. No wheezes, rales, or rhonchi. GASTROINTESTINAL: Abdomen soft, non-tender, nondistended. No hepato-splenomegaly , or palpable masses. No guarding. Bowel sounds present. GENITOURINARY: Without palpable bladder distension. MUSCULOSKELETAL: Extremities without clubbing, cyanosis, or edema. Positive muscle wasting. No joint tenderness or effusion noted. No calf tenderness. No mottling or clubbing. LYMPHATICS: No palpable cervical or supraclavicular adenopathy. NEUROLOGICAL: Awake and alert. Motor and sensory grossly within normal limits. Follows commands. Cognitively sharp. Moves all extremities. PSYCHIATRIC: No obvious anxiety/depression. no apparent hallucinations or other psychotic thought process. . Diagnostic Tests Laboratory Laboratory Tests Test 09/10/17 06:30 09/11/17 08:15 09/12/17 08:23 White Blood Count 4.2 TH/MM3 (4.0-11.0) 3.6 TH/MM3 (4.0-11.0) 4.1 TH/MM3 (4.0-11.0) Red Blood Count 2.62 MIL/MM3 (4.00-5.30) 2.86 MIL/MM3 (4.00-5.30) 3.07 MIL/MM3 (4.00-5.30) Hemoglobin 8.2 GM/DL (11.6-15.3) 8.6 GM/DL (11.6-15.3) 9.5 GM/DL (11.6-15.3) Hematocrit 23.3 % (35.0-46.0) 25.6 % (35.0-46.0) 27.2 % (35.0-46.0) Mean Corpuscular Volume 89.0 FL (80.0-100.0) 89.5 FL (80.0-100.0) 88.6 FL (80.0-100.0) Mean Corpuscular Hemoglobin 31.2 PG (27.0-34.0) 30.0 PG (27.0-34.0) 30.8 PG (27.0-34.0) Mean Corpuscular Hemoglobin Concent 35.1 % (32.0-36.0) 33.6 % (32.0-36.0) 34.8 % (32.0-36.0) Red Cell Distribution Width 16.6 % (11.6-17.2) 16.3 % (11.6-17.2) 16.5 % (11.6-17.2) Platelet Count 66 TH/MM3 (150-450) 73 TH/MM3 (150-450) 71 TH/MM3 (150-450) Mean Platelet Volume 9.9 FL (7.0-11.0) 10.8 FL (7.0-11.0) 9.9 FL (7.0-11.0) Blood Urea Nitrogen 7 MG/DL (7-18) 7 MG/DL (7-18) 5 MG/DL (7-18) Creatinine 0.81 MG/DL (0.50-1.00) 0.79 MG/DL (0.50-1.00) 0.72 MG/DL (0.50-1.00) Random Glucose 93 MG/DL (74-106) 88 MG/DL (74-106) 80 MG/DL (74-106) Calcium Level 7.5 MG/DL (8.5-10.1) 7.2 MG/DL (8.5-10.1) 7.5 MG/DL (8.5-10.1) Magnesium Level 1.7 MG/DL (1.5-2.5) 1.9 MG/DL (1.5-2.5) Sodium Level 139 MEQ/L (136-145) 142 MEQ/L (136-145) 141 MEQ/L (136-145) Potassium Level 3.8 MEQ/L (3.5-5.1) 3.7 MEQ/L (3.5-5.1) 3.5 MEQ/L (3.5-5.1) Chloride Level 106 MEQ/L (98-107) 106 MEQ/L (98-107) 104 MEQ/L (98-107) Carbon Dioxide Level 26.6 MEQ/L (21.0-32.0) 29.3 MEQ/L (21.0-32.0) 33.0 MEQ/L (21.0-32.0) Anion Gap 6 MEQ/L (5-15) 7 MEQ/L (5-15) 4 MEQ/L (5-15) Estimat Glomerular Filtration Rate 89 ML/MIN (>89) 92 ML/MIN (>89) 103 ML/MIN (>89) Total Protein 6.6 GM/DL (6.4-8.2) Protein Corrected Calcium 7.5 MG/DL (8.5-10.1) . Result Diagram: 09/12/1782209/12/17 0823 Microbiology Microbiology Date/Time Source Procedure Growth Status 09/12/17 12:00 Bronchial Brushings Other Acid Fast Stain Pending Received 09/12/17 12:00 Bronchial Brushings Other Mycobacterial Culture Pending Received 09/12/17 12:00 Bronchial Brushings Other Fungal Smear Pending Received 09/12/17 12:00 Bronchial Brushings Other Fungal Culture Pending Received 09/12/17 12:00 Bronchial Brushings Other Bronchial Aspirate Culture Pending Received 09/12/17 12:00 Bronchial Washings Other Fungal Smear Pending Received 09/12/17 12:00 Bronchial Washings Other Fungal Culture Pending Received 09/12/17 12:00 Bronchial Washings Other Acid Fast Stain Pending Received 09/12/17 12:00 Bronchial Washings Other Mycobacterial Culture Pending Received 09/12/17 12:00 Bronchial Washings Other Gram Stain Pending Received 09/12/17 12:00 Bronchial Washings Other Bronchial Culture Pending Received Imaging Last Impressions Chest X-Ray 09/12/17 0000 Signed Impressions: Service Date/Time: Tuesday, September 12, 2017 12:43 - CONCLUSION: Increasing size right mid lung masslike opacity. There is a new small infiltrate in the right apex. Jose Long MD Chest CT 09/07/17 0000 Signed Impressions: Service Date/Time: Thursday, September 07, 2017 23:37 - CONCLUSION: Enlarging right hilar mass associated consolidation, as well as progressive adenopathy in the mediastinum and axillary regions. Cirrhosis and portal hypertension suspected. Joe Palma MD Abdomen/Pelvis CT 09/05/172104 Signed Impressions: Service Date/Time: Tuesday, September 05, 2017 23:19 - CONCLUSION: Mild diffuse bowel wall thickening suspect for colitis. Cirrhosis and portal hypertension again seen. Interval development of right middle lobe and lower lobe nodular consolidation suspect for pneumonia. Followup recommended after appropriate medical therapy. Joe Palma MD . Procedures 09/12: Bronchoscopy with biopsy. . Patient/Family Conference Present at Family Conference: Spoke with patient in room with significant other, Mr. Munoz, at bedside regarding clinical progress and goals. Patient reiterates that she does plan to go home with hospice. . Family Conference Location: Bedside Issues Discussed: * Palliative care role, purpose, approach * Additional medical, psychosocial, and spiritual history * Patients general health, functional status, and cognitive changes in the months leading up to the current hospitalization * Patient/family understanding of the current medical problems * Patient/family understanding of prognosis * Patients goals of care as best understood from advance directives and/or conversations and/or values * Current medical treatment options and benefits/burdens of those options * Likely scenarios comparing ongoing aggressive care with a transition to comfort measures only * Questions answered to the best of my ability * Palliative care contact information provided Assessment and Plan Disease Oriented Problem List: (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 She was never and has no children. She has a partner for over 30 years, Brandon Munoz. Reports 17 siblings. . Spiritual:States she is a Protestant, not currently attending any local confucianism. Aware and accepting of the availability of surfboard designer visits. . Legal: No legal issues noted . Ethical issues impacting care: No ethical issues noted. . Important Contacts Grant Ruelas (primary) [phone] as HCS. Brandon Munoz as alternate [phone]. . Prognosis Her HIV/AIDS has been diagnosed as end-stage per Dr. Anaid Masterson's note. Her last CD4 count was less than 20 in January and in March 2017. She has been noncompliant with her medications and at this time has run out of her antiretrovirals. CT imaging has now identified a right hilar mass and multiple right-sided pulmonary parenchymal nodular densities suspicious for malignancy with enlarged bilateral axillary lymph nodes. She is cachectic and continues to lose weight. She has difficulty swallowing and is requiring repeated esophageal dilations. She has progressive weakness and has started having falls. She now presents with another episode of recurrent, resistant clostridium difficile infection, further compromised by her immunocompromised status and complicated by a mycobacterial infection. She is likely to continue to decline, have recurrent hospitalizations and suffer complications. . Code Status: No Code Plan PLAN: Legal decision maker: Legal decision maker: At this time patient appears to be able to make her own decisions. Her previous healthcare surrogate form designees were reviewed and she wishes to continue with her currently stated plan of having her nephew, Grant Ruelas, as her first health care surrogate and her longtime rehabilitation consultant, Brandon Munoz as her alternative healthcare surrogate. That form has been scanned into the system and is available in [facility]. Goals: DO NOT RESUSCITATE. Comfort oriented goals. CODE STATUS: DNR SYMPTOMS: * Pain: She complains of generalized pain in multiple body parts, likely multifactorial to include cachexia, neuropathy, recent falls, rib fractures and esophageal strictures. Tylenol and morphine for mg IV every 4 hours as needed are available. She has been receiving no more than 1 dose of morphine daily. At this time her pain is reasonably well controlled at rest. * Dyspnea: She is dyspneic with activity, but remains eupneic at rest. She is significantly debilitated and cachectic. She has been found to have a hilar mass which underwent biopsy today via bronchoscopy pathology is pending. SUMMARY: This is a 52 year old female with severe protein calorie malnutrition, cachexia, dysphasia, end-stage HIV/AIDS with poor compliance to medical therapy. There is now suspicion of a malignant process. She underwent bronchoscopy with biopsy today. She begins to understand that her disease will continue to worsen and eventually end her life. She is now choosing to be discharged home with hospice. Discharge home when cleared by primary. Hospice is following. Palliative care will continue to follow the patient during hospital course as condition evolves, to assist patient/decision-maker with understanding of their medical conditions, weighing benefits/burdens of treatment options, for clarification of goals of treatment. Additionally will assist with any symptoms of palliative concern. . Time Spent >50% Counseling/Coord of Care: No Thank you for the opportunity to participate in the care of Ms. Helm. Attestation To help prompt me to consider important information that might be impacting today's encounter and assessment, information from prior notes written by myself or my colleagues may have been "brought forward" into today's note. My signature on this note, however, is an attestation that I personally performed the exam, history, and/or decision-making noted today, and, unless otherwise indicated, the interactions with patient, family, and staff as well as the review of records all occurred today. I also attest that the listed assessment and stated plan reflect my best clinical judgment today based on the combination of historical information, prior notes, and today's exam/ interactions. When time spent is documented, it refers only to time spent today by the signer, or if indicated, combined time spent today by collaborating physician/nurse practitioner. . Lolis Zapata Sep 12, 2017 5:30 pm
[2017-09-13] VITALS (11 sets, daily range): BP systolic 104–134; BP diastolic 59–68; PULSE 64–89; RESP 18–20; TEMP 97.6–98; O2SAT 95–100
[2017-09-13] MEDS: SODIUM BICARBONATE 8.4% INJ 100 MEQ in DEXTROSE 5% IN WATE 1000ML INJ 1,000 ML IV SCH ×4 (02:48→19:58)
[2017-09-13] MEDS: CHOLESTYRAMINE 4 GM PACKET PO SCH ×3 (03:54→22:00)
[2017-09-13] MEDS: metroNIDAZOLE 500 MG INJ 100 ML IV SCH ×4 (03:54→22:00)
[2017-09-13] MEDS: CEFEPIME INJ 2,000 MG in SODIUM CHLORIDE 0.9% INJ 100 ML IV SCH ×3 (04:00→19:58)
--- NOTE | 2017-09-13 08:13 | HHI.PR ---
Subjective Remarks awake and alert, po intake improved- had blueberry muffin no nausea or vomiting still having liquid stools- large volume Objective Vitals Vital Signs Date Time Temp Pulse Resp B/P (MAP) Pulse Ox O2 Delivery O2 Flow Rate FiO2 09/13/17 04:00 97.7 71 18 131/68 (89) 96 09/13/17 04:00 Room Air 09/13/17 03:46 64 09/13/17 00:15 78 09/13/17 00:00 97.8 81 18 106/59 (75) 98 09/13/17 00:00 Room Air 09/12/17 20:24 69 09/12/17 20:00 97.5 71 20 160/83 (108) 97 09/12/17 20:00 Room Air 09/12/17 16:15 97.7 72 17 136/77 (96) 95 09/12/17 16:00 Room Air 09/12/17 16:00 81 09/12/17 13:05 72 16 123/75 (91) 96 Room Air 09/12/17 12:45 75 16 140/82 (101) 95 Room Air 09/12/17 12:29 97.6 85 16 128/71 (90) 98 Simple Mask 6 09/12/17 12:00 Room Air I/O 09/12/17 09/12/17 09/12/17 09/13/17 09/13/17 09/13/17 07:00 15:00 23:00 07:00 15:00 23:00 Intake Total 1400 ml 480 ml 960 ml Output Total 300 ml Balance 1100 ml 480 ml 960 ml Intake Oral 0 ml 480 ml 960 ml IV Total 1400 ml Stool Total 300 ml # Voids 11 3 4 Result Diagram: 09/12/17 0823 09/12/17 0823 Imaging Last Impressions Chest X-Ray 09/12/17 0000 Signed Impressions: Service Date/Time: Tuesday, September 12, 2017 12:43 - CONCLUSION: Increasing size right mid lung masslike opacity. There is a new small infiltrate in the right apex. Jose Long MD Chest CT 09/07/17 0000 Signed Impressions: Service Date/Time: Thursday, September 07, 2017 23:37 - CONCLUSION: Enlarging right hilar mass associated consolidation, as well as progressive adenopathy in the mediastinum and axillary regions. Cirrhosis and portal hypertension suspected. Joe Palma MD Abdomen/Pelvis CT [id number]/05/172104 Signed Impressions: Service Date/Time: Tuesday, September 05, 2017 23:19 - CONCLUSION: Mild diffuse bowel wall thickening suspect for colitis. Cirrhosis and portal hypertension again seen. Interval development of right middle lobe and lower lobe nodular consolidation suspect for pneumonia. Followup recommended after appropriate medical therapy. Joe Palma MD Objective Remarks awake and alert, oriented x 3 anicteric lungs- no wheezes regular rhythm abdomen- + bowel sounds, slightly tender lower abdomen + edema Procedures 09/12- bronchoscopy A/P Assessment and Plan 52-year-old female with: Severe sepsis S/t HCAP and C diff. CT abdomen and pelvis with diffuse colitis and pneumonia. Cirrhosis and portal hypertension suspected. ID and pulmonology consults appreciated. - currently on PO vanc, IV Flagyl and IV cefepime. - IVFs. - pain control as needed. Add morphine. - oxygen and nebs as needed. CT chest with enlarging right hilar mass, associated consolidation, as well as progressive adenopathy in the mediastinum and axillary regions; -Status post bronchoscopy 09/12. Pathology and cytology pending.. Acute renal failure S/t dehydration from GI losses. - resolved with fluids. Continue to monitor. - continue to monitor - large volume - continue on IVF HIV CD4 count less than 20 on March 25, 2017. - hold antiviral regimen. - ID following. Prophylaxis started. - pt is now DNR. The patient is considering hospice care, but at this time would prefer home health care. Her immediate goal is to treat pneumonia and C. difficile colitis. Anemia/ Thrombocytopenia S/t HIV. - follow CBC and transfuse as needed. Itching - gloves as needed. - Benadryl. PPx: Margarito Fernandes MD Sep 13, 2017 08:13
[2017-09-13] MEDS: SODIUM CHLORIDE 0.9% FLUSH 10 ML FLUSH IV FLUSH SCH ×2 (09:11→20:03)
[2017-09-13] MEDS: CALCIUM CARBONATE 1.25 GM (CA 500 MG) TAB PO SCH ×2 (09:11→20:02)
[2017-09-13] MEDS: MAGNESIUM OXIDE 400 MG TAB PO SCH ×2 (09:11→20:02)
[2017-09-13] MEDS: VANCOMYCIN 25 MG/ML SUSP 100 ML BOTTLE PO SCH ×3 (09:12→19:56)
--- NOTE | 2017-09-13 10:30 | MP ---
cc: VIKKI HOLLIDAY DATE OF SURGERY 09/12/2017 PROCEDURE Fiberoptic bronchoscopy with biopsy, brushings, washings, transbronchial needle aspirate. ANESTHESIA General with intubation. SURGEON Dr. Ayesha Holliday PREOPERATIVE DIAGNOSIS Right hilar mass POSTOPERATIVE DIAGNOSIS Right hilar mass PROCEDURE AND FINDINGS The patient was intubated under general anesthesia following this Olympus IT180 bronchoscope was used to visualized the bronchi. The scope was advanced via the endotracheal tube into the trachea. The trachea and feliz appeared normal. The scope was then advanced into the right mainstem and right upper lobe segmental bronchi. These bronchi demonstrated no gross endobronchial lesions. There were a few mucoid secretions and these were suctioned out. The scope was then advanced towards the right middle lobe segmental bronchi. The right middle lobe bronchus was slightly narrowed with mucosal edema and ridging and moderate endobronchitis and there were mucoid secretions noted in the right middle lobe bronchi. The bronchial wall was somewhat edematous and there was mild cobblestoning. Brushings were done from here and sent for cytology. A transbronchial needle aspirate was obtained from here and a bronchial biopsy was done from the right middle lobe area. Minimal bleeding was observed, controlled with an epinephrine solution and saline washings. The scope was also advanced towards the right lower lobe segmental bronchi which demonstrated a few mucoid secretions and mild endobronchitis. Saline washings were done. No endobronchial lesions were seen. The scope was then advanced over the left mainstem and left upper lobe segmental bronchi. These bronchi demonstrated mild endobronchitis with mucoid secretions and these were suctioned out. No endobronchial lesions were seen. Next, the left lower lobe segmental bronchi were visualized which demonstrated mucoid secretions and mild of bronchitis. Saline washings were done and the procedure was then terminated. The patient tolerated the procedure well. MD EMILY Jimenez/GENYN /12:08 PM /10:22 AM
[2017-09-13 10:33] LABS: BICARBONATE 32.7 MEQ/L (21.0-32.0); CALCIUM 7.4 MG/DL (8.5-10.1); CREATININE 0.75 MG/DL (0.50-1.00)
[2017-09-13 10:53] LABS: CALCIUM-PROTEIN CORRECTED 7.5 MG/DL (8.5-10.1)
--- NOTE | 2017-09-13 22:23 | HHI.PR ---
Subjective Remarks C/O Poor Appetite.and has Loose stools. Off O2. Bronchoscopy result pending Objective Vital Signs Date Time Temp Pulse Resp B/P (MAP) Pulse Ox O2 Delivery O2 Flow Rate FiO2 09/13/17 20:00 Room Air 09/13/17 20:00 97.6 77 18 126/65 (85) 99 09/13/17 16:00 97.9 73 20 134/62 (86) 98 09/13/17 16:00 Room Air 09/13/17 16:00 79 09/13/17 12:00 97.9 76 18 104/61 (75) 100 09/13/17 12:00 86 09/13/17 12:00 Room Air 09/13/17 10:40 95 21 09/13/17 08:00 89 09/13/17 08:00 98.0 68 18 117/65 (82) 96 09/13/17 08:00 Room Air 09/13/17 04:00 97.7 71 18 131/68 (89) 96 09/13/17 04:00 Room Air 09/13/17 03:46 64 09/13/17 00:15 78 09/13/17 00:00 97.8 81 18 106/59 (75) 98 09/13/17 00:00 Room Air I/O 09/12/17 09/12/17 09/12/17 09/13/17 09/13/17 09/13/17 07:00 15:00 23:00 07:00 15:00 23:00 Intake Total 1400 ml 480 ml 960 ml 720 ml Output Total 300 ml Balance 1100 ml 480 ml 960 ml 720 ml Intake Oral 0 ml 480 ml 960 ml 720 ml IV Total 1400 ml Stool Total 300 ml # Voids 11 3 4 3 # Bowel Movements 0 Result Diagram: 09/12/17 0823 09/13/17 0929 Objective Remarks This is an emaciated looking middle-aged -[place] lady who is in no acute distress. GENERAL: Pallor noted. No cyanosis. There is clubbing. No peripheral edema. There is muscle wasting of all the extremities. HEENT: Head normocephalic. Pupils are reactive. Sclerae are injected. Tongue is dry. Ears had no inflammation. Nasal mucosa is clear NECK: Supple. No lymphadenopathy. No bruits or thyroid enlargement. CHEST: Equal movements with decreased excursions. There are few coarse wheezes in the right lung field. Occ crackles. HEART: Regular S1-S2. No murmur. ABDOMEN: Soft and benign, nontender. Liver just felt below the costal margin. The bowel sounds are active. EXTREMITIES: Decreased peripheral pulses with muscle wasting and no edema. Reflexes are 1+ with no gross motor deficits. NEUROLOGIC: Cranial nerves grossly intact. Skin was dry Assessment and Plan Assessment and Plan IMPRESSION 1. HIV/AIDS with noncompliance 2. Health care associated pneumonia with sepsis 3. C diff colitis 4. Right hilar mass probable malignancy. 5. COPD PLan: 1. O2 2 L PRN 2. Nebs tid prn , Duoneb. 3. Antibiotics per ID. 4. CBC ,BMP 5. Chest X ray in am Chet Holliday MD Sep 13, 2017 22:23
[2017-09-14] VITALS (12 sets, daily range): BP systolic 112–132; BP diastolic 61–71; PULSE 60–85; RESP 16–20; TEMP 96.4–98.3; O2SAT 97–99
[2017-09-14] MEDS: metroNIDAZOLE 500 MG INJ 100 ML IV SCH ×4 (03:23→22:49)
[2017-09-14] MEDS: CEFEPIME INJ 2,000 MG in SODIUM CHLORIDE 0.9% INJ 100 ML IV SCH ×3 (03:28→20:49)
[2017-09-14] MEDS: CHOLESTYRAMINE 4 GM PACKET PO SCH ×3 (04:40→22:49)
[2017-09-14] MEDS: SODIUM CHLORIDE 0.9% FLUSH 10 ML FLUSH IV FLUSH SCH ×2 (09:00→20:49)
[2017-09-14] MEDS: SULFAMETHOXAZOLE-TRIMETHOPRIM DS 800-160 MG TAB PO SCH (09:15)
[2017-09-14] MEDS: CALCIUM CARBONATE 1.25 GM (CA 500 MG) TAB PO SCH ×2 (09:15→20:48)
[2017-09-14] MEDS: MAGNESIUM OXIDE 400 MG TAB PO SCH ×2 (09:15→20:48)
[2017-09-14] MEDS: VANCOMYCIN 25 MG/ML SUSP 100 ML BOTTLE PO SCH ×4 (09:16→20:48)
[2017-09-14] MEDS ORDERED: CALCIUM CARBONATE 1.25 GM (CA 500 MG) TAB PO SCH (09:45)
--- NOTE | 2017-09-14 09:47 | HHI.PR ---
Subjective Remarks wake and alert complains of some discomfort on the throat " hursts" - had bronchoscopy yesterday no difficulty swallowing- po appetitie improving still with large volume diarrhea Objective Vitals Vital Signs Date Time Temp Pulse Resp B/P (MAP) Pulse Ox O2 Delivery O2 Flow Rate FiO2 09/14/17 09:22 98 09/14/17 08:00 97.3 72 18 122/67 (85) 98 09/14/17 04:00 98.1 77 20 131/66 (87) 98 09/14/17 03:51 65 09/14/17 00:00 98.3 68 18 112/68 (83) 97 09/13/17 23:41 65 09/13/17 20:00 Room Air 09/13/17 20:00 97.6 77 18 126/65 (85) 99 09/13/17 19:48 81 09/13/17 16:00 97.9 73 20 134/62 (86) 98 09/13/17 16:00 Room Air 09/13/17 16:00 79 09/13/17 12:00 97.9 76 18 104/61 (75) 100 09/13/17 12:00 86 09/13/17 12:00 Room Air 09/13/17 10:40 95 21 I/O 09/13/17 09/13/17 09/13/17 09/14/17 09/14/17 09/14/17 07:00 15:00 23:00 07:00 15:00 23:00 Intake Total 960 ml 720 ml 340 ml Balance 960 ml 720 ml 340 ml Intake Oral 960 ml 720 ml 340 ml # Voids 4 3 4 # Bowel Movements 0 Result Diagram: 09/12/17 0823 09/13/17 0929 Imaging Last Impressions Chest X-Ray 09/12/17 0000 Signed Impressions: Service Date/Time: Tuesday, September 12, 2017 12:43 - CONCLUSION: Increasing size right mid lung masslike opacity. There is a new small infiltrate in the right apex. Jose Long MD Chest CT 09/07/17 0000 Signed Impressions: Service Date/Time: Thursday, September 07, 2017 23:37 - CONCLUSION: Enlarging right hilar mass associated consolidation, as well as progressive adenopathy in the mediastinum and axillary regions. Cirrhosis and portal hypertension suspected. Joe Palma MD Abdomen/Pelvis CT [id number]/05/172104 Signed Impressions: Service Date/Time: Tuesday, September 05, 2017 23:19 - CONCLUSION: Mild diffuse bowel wall thickening suspect for colitis. Cirrhosis and portal hypertension again seen. Interval development of right middle lobe and lower lobe nodular consolidation suspect for pneumonia. Followup recommended after appropriate medical therapy. Joe Palma MD Objective Remarks awake and alert, oriented x 3 anicteric lungs- no wheezes regular rhythm abdomen- + bowel sounds,no guarding rectal tube with large volume watery stools- yeloow bronw no edema; Procedures 09/12- bronchoscopy A/P Assessment and Plan 52-year-old female with: Severe sepsis S/t HCAP and C diff. CT abdomen and pelvis with diffuse colitis and pneumonia. Cirrhosis and portal hypertension suspected. ID and pulmonology consults appreciated. - currently on PO vanc, IV Flagyl and IV cefepime. - IVFs. - pain control as needed. Add morphine. - oxygen and nebs as needed. CT chest with enlarging right hilar mass, associated consolidation, as well as progressive adenopathy in the mediastinum and axillary regions; -Status post bronchoscopy - no endobronchial lesions -09/12. -negative for malignant cells Acute renal failure- resolved S/t dehydration from GI losses. - resolved with fluids. Continue to monitor.-off fluids - continue to monitor - large volume -- heplock IVF and monitor BMP HIV CD4 count less than 20 on March 25, 2017. - hold antiviral regimen. - ID following. Prophylaxis started. - pt is now DNR. Anemia/ Thrombocytopenia S/t HIV. - follow CBC and transfuse as needed. Itching - gloves as needed. - Benadryl. PPx: SCDs CM_ Hospice with home hospice Margarito José MD Sep 14, 2017 09:46
[2017-09-14] MEDS: AZITHROMYCIN 600 MG TAB PO SCH (17:17)
--- NOTE | 2017-09-14 18:56 | HHI.PR ---
Subjective Remarks C/O has Loose stools. Off O2. Bronchoscopy result Negative for malignancy. May need CT Needle biopsy Objective Vital Signs Date Time Temp Pulse Resp B/P (MAP) Pulse Ox O2 Delivery O2 Flow Rate FiO2 09/14/17 17:27 97.8 80 16 127/61 (83) 97 09/14/17 17:11 80 09/14/17 16:00 68 09/14/17 12:00 97.7 78 20 122/69 (86) 98 09/14/17 12:00 82 09/14/17 09:22 98 09/14/17 08:00 97.3 72 18 122/67 (85) 98 09/14/17 08:00 60 09/14/17 07:00 Room Air 09/14/17 04:00 98.1 77 20 131/66 (87) 98 09/14/17 03:51 65 09/14/17 00:00 98.3 68 18 112/68 (83) 97 09/13/17 23:41 65 09/13/17 20:00 Room Air 09/13/17 20:00 97.6 77 18 126/65 (85) 99 09/13/17 19:48 81 I/O 09/13/17 09/13/17 09/13/17 09/14/17 09/14/17 09/14/17 07:00 15:00 23:00 07:00 15:00 23:00 Intake Total 960 ml 720 ml 340 ml 720 ml Balance 960 ml 720 ml 340 ml 720 ml Intake Oral 960 ml 720 ml 340 ml 720 ml # Voids 4 3 4 4 # Bowel Movements 0 2 Result Diagram: 09/12/17 0823 09/13/17 0929 Objective Remarks This is an emaciated looking middle-aged -[place] lady who is in no acute distress. GENERAL: Pallor noted. No cyanosis. No peripheral edema. There is muscle wasting of all the extremities. HEENT: Head normocephalic. Pupils are reactive. Sclerae are clear Tongue is clear. Ears had no inflammation. Nasal mucosa is clear NECK: Supple. No lymphadenopathy. No bruits or thyroid enlargement. CHEST: Equal movements with decreased excursions. There are few coarse wheezes in the right lung field.No crackles. HEART: Regular S1-S2. No murmur. ABDOMEN: Soft and benign, nontender. Liver just felt below the costal margin. The bowel sounds are active. EXTREMITIES: Decreased peripheral pulses with muscle wasting and no edema. Reflexes are 1+ with no gross motor deficits. NEUROLOGIC: No Deficit. Skin was dry Assessment and Plan Assessment and Plan IMPRESSION 1. HIV/AIDS with noncompliance 2. Health care associated pneumonia with sepsis 3. C diff colitis 4. Right hilar mass probable malignancy. 5. COPD PLan: 1. O2 2 L PRN 2. Nebs tid prn , Duoneb. 3. Antibiotics per ID. 4. IS at bedside qid 5. Labs in Chet Holliday MD Sep 14, 2017 18:56
[2017-09-15 00:38] VITALS: BP 123/71; PULSE 90; RESP 16; TEMP 98.7; O2SAT 96
[2017-09-15] MEDS: metroNIDAZOLE 500 MG INJ 100 ML IV SCH (02:40)
[2017-09-15 03:52] VITALS: PULSE 80
[2017-09-15 04:14] VITALS: BP 122/69; PULSE 77; RESP 18; TEMP 98.7; O2SAT 95
[2017-09-15] MEDS: CEFEPIME INJ 2,000 MG in SODIUM CHLORIDE 0.9% INJ 100 ML IV SCH ×2 (04:24→12:00)
[2017-09-15] MEDS: CHOLESTYRAMINE 4 GM PACKET PO SCH (06:33)
--- NOTE | 2017-09-15 07:24 | RADRPT ---
EXAM DATE/TIME: 09/15/2017 06:50 [facility] COMPARISON: CHEST SINGLE AP, September 12, 2017, 12:43. INDICATIONS : Short of breath, pneumonia MEDICAL HISTORY : Hypertension. HIV. diabetes, seizures SURGICAL HISTORY : None. ENCOUNTER: Subsequent ACUITY: 4 - 6 days PAIN SCORE: 0/10 LOCATION: Bilateral chest FINDINGS: Portable AP view of the chest demonstrates a normal-sized cardiac silhouette. There is focal consolid ation in the right midlung zone, improved from the study from 2 days ago. No pleural effusion or pneu mothorax is identified. The bones and soft tissues demonstrate no acute finding. CONCLUSION: Improvement in the right midlung airspace consolidation. Nelson Ordoñez MD on September 15, 2017 at 7:21 Board Certified Radiologist. This report was verified electronically.
[2017-09-15 08:00] VITALS: BP 104/56; PULSE 80; PULSE 91; RESP 20; TEMP 98; O2SAT 98
--- NOTE | 2017-09-15 08:01 | HHI.PR ---
Subjective Remarks interactive and smiling "feeling good" no further diarrhea, good po intake- Objective Vitals Vital Signs Date Time Temp Pulse Resp B/P (MAP) Pulse Ox O2 Delivery O2 Flow Rate FiO2 09/15/17 04:14 Room Air 09/15/17 04:14 98.7 77 18 122/69 (86) 95 09/15/17 03:52 80 09/15/17 00:38 Room Air 09/15/17 00:38 98.7 90 16 123/71 (88) 96 09/14/17 23:47 77 09/14/17 20:00 96.4 85 17 132/71 (91) 99 09/14/17 20:00 Room Air 09/14/17 19:45 74 09/14/17 17:27 97.8 80 16 127/61 (83) 97 09/14/17 17:11 80 09/14/17 16:00 68 09/14/17 12:00 97.7 78 20 122/69 (86) 98 09/14/17 12:00 82 09/14/17 09:22 98 09/14/17 08:00 97.3 72 18 122/67 (85) 98 09/14/17 08:00 60 I/O 09/14/17 09/14/17 09/14/17 09/15/17 09/15/17 09/15/17 07:00 15:00 23:00 07:00 15:00 23:00 Intake Total 340 ml 820 ml 1140 ml Balance 340 ml 820 ml 1140 ml Intake Oral 340 ml 720 ml 840 ml IV Total 100 ml 300 ml # Voids 4 4 5 # Bowel Movements 2 6 Result Diagram: 09/12/17 0823 09/13/17 0929 Imaging Last Impressions Chest X-Ray 09/15/17 0600 Signed Impressions: Service Date/Time: August 06:50 - CONCLUSION: Improvement in the right midlung airspace consolidation. Nelson Ordoñez MD Chest CT 09/07/17 0000 Signed Impressions: Service Date/Time: Thursday, September 07, 2017 23:37 - CONCLUSION: Enlarging right hilar mass associated consolidation, as well as progressive adenopathy in the mediastinum and axillary regions. Cirrhosis and portal hypertension suspected. Joe Palma MD Abdomen/Pelvis CT 09/05/172104 Signed Impressions: Service Date/Time: Tuesday, September 05, 2017 23:19 - CONCLUSION: Mild diffuse bowel wall thickening suspect for colitis. Cirrhosis and portal hypertension again seen. Interval development of right middle lobe and lower lobe nodular consolidation suspect for pneumonia. Followup recommended after appropriate medical therapy. Joe Palma MD Objective Remarks awake and alert, oriented x 3, smiling and interactive anicteric lungs- no wheezes regular rhythm abdomen- + bowel sounds,no guarding no edema; moves all extremities spontaneously Procedures 09/12- bronchoscopy A/P Assessment and Plan 52-year-old female with: Severe sepsis S/t HCAP and C diff. CT abdomen and pelvis with diffuse colitis and pneumonia. Cirrhosis and portal hypertension suspected. ID and pulmonology consults appreciated. - currently on PO vanc, IV Flagyl and IV cefepime. - IVFs. - pain control as needed. morphine. - oxygen and nebs as needed. CT chest with enlarging right hilar mass, associated consolidation, as well as progressive adenopathy in the mediastinum and axillary regions; -Status post bronchoscopy - no endobronchial lesions -09/12. -negative for malignant cells - Dr. Valadez ff Acute renal failure- resolved S/t dehydration from GI losses. - resolved with fluids. Continue to monitor.-off fluids - stools decrease overnight -- heplock IVF and monitor BMP HIV CD4 count less than 20 on March 25, 2017. - hold antiviral regimen. - ID following. Prophylaxis - Bactrim twice a week and zithromax once weekly - pt is now DNR. Anemia/ Thrombocytopenia S/t HIV. - follow CBC and transfuse as needed. Itching - gloves as needed. - Benadryl. NUtrition - supplement- enlive bid PPx: SCDs CM_ Hospice with home hospice - with daughter- will ask CM to arrange transport Margarito José MD Sep 15, 2017 08:01
[2017-09-15] MEDS ORDERED: SULF1TAB23 PO (08:11)
[2017-09-15] MEDS ORDERED: AZIT600T PO (08:11)
[2017-09-15] MEDS ORDERED: CALC500 PO (08:14)
[2017-09-15] MEDS: CALCIUM CARBONATE 1.25 GM (CA 500 MG) TAB PO SCH ×2 (09:00→10:10)
[2017-09-15] MEDS: SODIUM CHLORIDE 0.9% FLUSH 10 ML FLUSH IV FLUSH SCH (10:11)
[2017-09-15] MEDS: VANCOMYCIN 25 MG/ML SUSP 100 ML BOTTLE PO SCH (10:11)
[2017-09-15] MEDS: MAGNESIUM OXIDE 400 MG TAB PO SCH (10:15)
[2017-09-15] MEDS ORDERED: metroNIDAZOLE 500 MG TAB PO SCH (14:00)
--- NOTE | 2017-09-15 14:59 | HHI.DS ---
Discharge Summary Admission Date Sep 05, 2017 at 23:52 Discharge Date: Sep 15, 2017 Admitting Diagnosis Cdiff colitis, severe sepsis Procedures 09/12- bronchoscopy Brief History - From Admission History from patient, her at the bedside, and review of medical records. Patient is quite drowsy at the time of my exam. She would only with To verbal stimuli and answer yes or no and went straight back to sleep. She also answers yes to most of the line of questioning. According to the , patient was not feeling well for the past 2 days. However he is not really able to give specific symptoms such as fever/cough/ nausea/vomiting. He states he only knows that she's been having constant diarrhea. Reports that the diarrhea is found now having. According to ER nurses, patient was much more awake and alert prior to my arrival. She was given history to the ER that she has been having constant diarrhea and that she just recently finished her by mouth vancomycin dose for treatment of his life. She was also complaining of abdominal pain. Therefore she received a total of morphine 6 mg IV prior to my arrival. This was contributing to her altered mental status. denies any altered mentation at home. Denies any neck rigidity or photophobia. is not sure whether patient is taking her meds. That he states that patient did see her HIV doctor about 3 days ago. CBC/BMP: 09/12/17 0823 09/13/17 0929 Significant Findings Laboratory Tests Test 09/13/17 09:29 Blood Urea Nitrogen 6 MG/DL (7-18) Random Glucose 152 MG/DL (74-106) Calcium Level 7.4 MG/DL (8.5-10.1) Carbon Dioxide Level 32.7 MEQ/L (21.0-32.0) Anion Gap 3 MEQ/L (5-15) Protein Corrected Calcium 7.5 MG/DL (8.5-10.1) Imaging Last Impressions Chest X-Ray 09/15/17 0600 Signed Impressions: Service Date/Time: , September 15, 2017 06:50 - CONCLUSION: Improvement in the right midlung airspace consolidation. Nelson Ordoñez MD Chest CT 09/07/17 0000 Signed Impressions: Service Date/Time: Thursday, September 07, 2017 23:37 - CONCLUSION: Enlarging right hilar mass associated consolidation, as well as progressive adenopathy in the mediastinum and axillary regions. Cirrhosis and portal hypertension suspected. Joe Palma MD Abdomen/Pelvis CT 09/05/17 2105 Signed Impressions: Service Date/Time: Tuesday, September 05, 2017 23:19 - CONCLUSION: Mild diffuse bowel wall thickening suspect for colitis. Cirrhosis and portal hypertension again seen. Interval development of right middle lobe and lower lobe nodular consolidation suspect for pneumonia. Followup recommended after appropriate medical therapy. Joe Palma MD PE at Discharge awake and alert, oriented x 3, smiling and interactive anicteric lungs- no wheezes regular rhythm abdomen- + bowel sounds,no guarding no edema; moves all extremities spontaneously Pt update on day of discharge afebrile, interactive no pain or shortness of breath wants to go home with hospice Pt Condition on Discharge: Stable Discharge Disposition: Hospice/ Home Discharge Time: > 30 minutes Discharge Instructions DIET: Follow Instructions for: As Tolerated, No Restrictions Activities you can perform: Weight Bearing as Fiordaliza Activities to Avoid: Strenuous Activity New Medications: Azithromycin (Azithromycin) 600 Mg Tab 1200 MG PO Q7D for AIDS, #60 TAB take 2 tablets (600 mg ) once a week every Tuesday Oyster Shell (Oyster Calcium) 500 Mg Calcium (1250 Mg) Tab 1000 MG PO Q12HR for supple for 30 Days, TAB Sulfamethoxazole-Trimethoprim (Sulfamethoxazole-Trimethoprim) 800-160 Mg Tab 1 TAB PO MoWeFr@[id number] for AIDS, #60 TAB Continued Medications: Ferrous Sulfate (Ferrous Sulfate) 325 Mg (65 Mg Iron) Tablet 325 MG PO BIDPC for Nutritional Supplement, #60 TAB 0 Refills Pantoprazole (Protonix) 40 Mg Tab 40 MG PO DAILY for Reflux, #30 TAB 0 Refills Margarito José MD Sep 15, 2017 14:59
== END 2017-09-15 12:16 | disposition hospice, home (50) | DRG 974 ==
LOC: NEPE 19:41 → NEDA 23:52 → HIME 09-06 06:20 → N04A 09-10 17:14
PROVIDERS: ADMIT Internal Medicine; ATTEND Internal Medicine
PROC: 0BD58ZX Extraction of Right Middle Lobe Bronchus, Via Natural or Artificial Opening Endoscopic, Diagnostic (ICD-10-PCS; principal; 2017-09-12)
PROC: 0BDB8ZX Extraction of Left Lower Lobe Bronchus, Via Natural or Artificial Opening Endoscopic, Diagnostic (ICD-10-PCS; 2017-09-12)
PROC: 0BD58ZX Extraction of Right Middle Lobe Bronchus, Via Natural or Artificial Opening Endoscopic, Diagnostic (ICD-10-PCS; 2017-09-12)
PROC: 0BD68ZX Extraction of Right Lower Lobe Bronchus, Via Natural or Artificial Opening Endoscopic, Diagnostic (ICD-10-PCS; 2017-09-12)
DX: A41.9 Sepsis, unspecified organism (principal); B20 Human immunodeficiency virus [HIV] disease; E43 Unspecified severe protein-calorie malnutrition; K74.60 Unspecified cirrhosis of liver; R65.20 Severe sepsis without septic shock; R64 Cachexia; N17.9 Acute kidney failure, unspecified; J18.9 Pneumonia, unspecified organism; J44.0 Chronic obstructive pulmonary disease with (acute) lower respiratory infection; K76.6 Portal hypertension; A04.71 Enterocolitis due to Clostridium difficile, recurrent; E87.2 Acidosis; R91.8 Other nonspecific abnormal finding of lung field; D69.6 Thrombocytopenia, unspecified; E86.0 Dehydration; K20.9 Esophagitis, unspecified; R74.8 Abnormal levels of other serum enzymes; R59.9 Enlarged lymph nodes, unspecified; D63.8 Anemia in other chronic diseases classified elsewhere; Y95 Nosocomial condition; R47.02 Dysphasia; E83.51 Hypocalcemia; L29.9 Pruritus, unspecified; G62.9 Polyneuropathy, unspecified; E87.6 Hypokalemia; Z66 Do not resuscitate; Z51.5 Encounter for palliative care; R29.6 Repeated falls; Z68.21 Body mass index [BMI] 21.0-21.9, adult; Z87.891 Personal history of nicotine dependence; Z91.14 Patient's other noncompliance with medication regimen; Z91.19 Patient's noncompliance with other medical treatment and regimen; Z79.899 Other long term (current) drug therapy; Z86.73 Personal history of transient ischemic attack (TIA), and cerebral infarction without residual deficits
CPT/HCPCS: 31625; 71045; 71260; 74177; 80048; 80053; 81001; 83605; 83690; 83735; 84155; 85007; 85027; 85610; 85730; 87015; 87040; 87070; 87071; 87102; 87116; 87205; 87206; 87328; 87329; 87493; 87641; 88112; 88173; 88305; 93005; 94060; 96361; 96374; 96375; 96376; J0610; J0692; J2270; J2405; J3010; J7030; J7042; J7050; J7070; Q9967

== ENCOUNTER 2017-10-30 10:12 | Emergency (ER) | payer OTHER, MEDICAID ==
[~2017-10-30] VITALS: Ht 162.6 cm; Wt 60.0 kg
[~2017-10-30 10:12] MED LIST changes: +AZIT600T PO; +CALC500 PO; +SULF1TAB23 PO
[2017-10-30 10:22] VITALS: BP 108/59; PULSE 79; RESP 18; TEMP 97.8; O2SAT 100
[2017-10-30] MEDS ORDERED: SODIUM CHLOR 0.9% 1000 ML INJ 1,000 ML IV SCH (11:44)
[2017-10-30] MEDS ORDERED: SODIUM CHLORIDE 0.9% FLUSH 10 ML FLUSH IV FLUSH PRN (11:45)
--- NOTE | 2017-10-30 12:01 | PD ---
HPI Chief Complaint: GI Complaint Time Seen by Provider: 11:20 Travel History International Travel<30 days: No Contact w/Intl Traveler<30days: No Traveled to known affect area: No History of Present Illness HPI 52-year-old female with PMH of AIDS, on hospice presents to the ED for evaluation of watery stools 3 or 4 days. She endorses cramping abdominal pain across the mid abdomen, rated 8/10. No alleviating or exacerbating factors reported. She states that her stools have been dark, also states that she has been taking Pepto-Bismol. She endorses fevers and decreased appetite. She endorses chronic cough productive of "yellow cold." She denies fevers, chest pain, palpitations, dysuria, hematuria. Patient states that she has been unable to take her HIV medications "for months." Also complains of chronic wound of the buttocks. Patient states that she has hospice care. She states last visit was "a few days ago." She does not know the name of the hospice company. PFSH Past Medical History Hx Anticoagulant Therapy: No Arthritis: No Asthma: No Autoimmune Disease: Yes (AIDS) Blood Disorders: Yes Anxiety: No Depression: Yes Heart Rhythm Problems: No Cancer: No Cardiomyopathy: No Cardiovascular Problems: Yes High Cholesterol: No Chemotherapy: No Chest Pain: No Congestive Heart Failure: No Cirrhosis: Yes COPD: No Cerebrovascular Accident: Yes (CVA 2012) Diabetes: Yes (PT denies) Diminished Hearing: No Endocrine: No Gastrointestinal Disorders: Yes (CIRRHOSIS) GERD: No Genitourinary: No Headaches: Yes Hiatal Hernia: No Hypertension: Yes Immune Disorder: Yes (HIV) Implanted Vascular Access Dvce: No Kidney Stones: No Musculoskeletal: No Neurologic: Yes Psychiatric: No Reproductive: No Respiratory: No Migraines: Yes Radiation Therapy: No Renal Failure: No Seizures: Yes (2012) Sickle Cell Disease: No Sleep Apnea: No Thyroid Disease: No Ulcer: No Menopausal: Yes : 2 Para: 0 Miscarriage: 1 : 1 Ectopic : Yes Ovarian Cysts: Yes Past Surgical History Abdominal Surgery: Yes (Expoloratory Lap) AICD: No Arteriovenous Shunt: No Cardiac Surgery: No Section: Yes Ear Surgery: No Endocrine Surgery: No Eye Surgery: No Genitourinary Surgery: No Gynecologic Surgery: Yes Hysterectomy: No Insulin Pump: No Joint Replacement: No Neurologic Surgery: No Oral Surgery: No Pacemaker: No Thoracic Surgery: No Other Surgery: Yes (, ectopic ) Social History Alcohol Use: Yes (Sypherlink wine cooler) Tobacco Use: No (8 yrs ago) Substance Use: No Allergies-Medications (Allergen,Severity, Reaction): Coded Allergies: No Known Allergies (Verified Allergy, Unknown, 08/07/17) Reported Meds & Prescriptions Reported Meds & Active Scripts Active Imodium A-D (Loperamide HCl) 2 Mg Capsule 2 Mg PO DIRECTED PRN One capsule after each loose stool. Not to exceed 8 tablets per day. Flagyl (Metronidazole) 500 Mg Tab 500 Mg PO TID 14 Days Oyster Calcium (Oyster Shell) 500 Mg Calcium (1250 Mg) Tab 1,000 Mg PO Q12HR 30 Days Sulfamethoxazole-Trimethoprim 800-160 Mg Tab 1 Tab PO MOWEFR@09 Azithromycin 600 Mg Tab 1,200 Mg PO Q7D take 2 tablets (600 mg ) once a week every Tuesday Vancomycin (Vancomycin HCl) 125 Mg Cap 125 Mg PO QID Protonix (Pantoprazole Sodium) 40 Mg Tab 40 Mg PO DAILY Furosemide 40 Mg Tab 40 Mg PO DAILY Aldactone (Spironolactone) 50 Mg Tab 50 Mg PO DAILY Propranolol (Propranolol HCl) 10 Mg Tab 10 Mg PO Q12HR Reported Ferrous Sulfate 325 Mg (65 Mg Iron) Tablet 325 Mg PO BIDPC Review of Systems Except as stated in HPI: all other systems reviewed are Neg Physical Exam Narrative GENERAL: Cachectic -[place] female in no acute distress. SKIN: Focused skin assessment warm/dry. 2 cm linear sacral wound without signs of infection. HEAD: Normocephalic. EYES: No scleral icterus. No injection or drainage. NECK: Supple, trachea midline. No JVD or lymphadenopathy. CARDIOVASCULAR: Regular rate and rhythm without murmurs, gallops, or rubs. RESPIRATORY: Breath sounds clear and equal bilaterally. No accessory muscle use. GASTROINTESTINAL: Abdomen soft, scaphoid, nondistended. Tender to palpation in the bilateral lower quadrants. No palpable masses. Active bowel sounds. RECTAL EXAM: No masses or tenderness, stool is brown. Guaiac negative. MUSCULOSKELETAL: No cyanosis, or edema. BACK: Nontender without obvious deformity. Positive right-sided CVA tenderness. Data Data Last Documented VS Vital Signs Date Time Temp Pulse Resp B/P (MAP) Pulse Ox O2 Delivery O2 Flow Rate FiO2 10/30/17 13:36 97 Room Air 10/30/17 10:22 97.8 79 18 108/59 (75) Orders Orders Complete Blood Count With Diff (10/30/17 11:44) Comprehensive Metabolic Panel (10/30/17 11:44) Lipase (10/30/17 11:44) Lactic Acid (10/30/17 11:44) Prothrombin Time / Inr (Pt) (10/30/17 11:44) Act Partial Throm Time (Ptt) (10/30/17 11:44) Iv Access Insert/Monitor (10/30/17 11:44) Ecg Monitoring (10/30/17 11:44) Oximetry (10/30/17 11:44) Sodium Chlor 0.9% 1000 Ml Inj (Ns 1000 M (10/30/17 11:44) Sodium Chloride 0.9% Flush (Ns Flush) (10/30/17 11:45) Stool Ova And Parasite Screen (10/30/17 11:44) Enteric Path (Stool) (10/30/17 11:44) C Diff Toxin Pcr (10/30/17 11:44) Ondansetron Inj (Zofran Inj) (10/30/17 12:45) Morphine Inj (Morphine Inj) (10/30/17 12:45) Sodium Chlor 0.9% 1000 Ml Inj (Ns 1000 M (10/30/17 12:45) Lactic Acid (10/30/17 12:44) Ed Discharge Order (10/30/17 16:24) Labs Laboratory Tests Test 10/30/17 11:55 10/30/17 15:30 White Blood Count 12.3 TH/MM3 Red Blood Count 2.95 MIL/MM3 Hemoglobin 9.7 GM/DL Hematocrit 28.6 % Mean Corpuscular Volume 96.9 FL Mean Corpuscular Hemoglobin 32.9 PG Mean Corpuscular Hemoglobin Concent 34.0 % Red Cell Distribution Width 17.2 % Platelet Count 200 TH/MM3 Mean Platelet Volume 9.0 FL Neutrophils (%) (Auto) 88.9 % Lymphocytes (%) (Auto) 5.6 % Monocytes (%) (Auto) 4.9 % Eosinophils (%) (Auto) 0.0 % Basophils (%) (Auto) 0.6 % Neutrophils # (Auto) 11.0 TH/MM3 Lymphocytes # (Auto) 0.7 TH/MM3 Monocytes # (Auto) 0.6 TH/MM3 Eosinophils # (Auto) 0.0 TH/MM3 Basophils # (Auto) 0.1 TH/MM3 CBC Comment DIFF FINAL Differential Comment Prothrombin Time 12.9 SEC Prothromb Time International Ratio 1.3 RATIO Activated Partial Thromboplast Time 28.5 SEC Blood Urea Nitrogen 11 MG/DL Creatinine 0.99 MG/DL Random Glucose 77 MG/DL Total Protein 9.3 GM/DL Albumin 1.9 GM/DL Calcium Level 8.0 MG/DL Alkaline Phosphatase 170 U/L Aspartate Amino Transf (AST/SGOT) 41 U/L Alanine Aminotransferase (ALT/SGPT) 13 U/L Total Bilirubin 0.7 MG/DL Sodium Level 135 MEQ/L Potassium Level 4.1 MEQ/L Chloride Level 103 MEQ/L Carbon Dioxide Level 22.8 MEQ/L Anion Gap 9 MEQ/L Estimat Glomerular Filtration Rate 71 ML/MIN Lactic Acid Level 3.0 mmol/L 2.3 mmol/L Lipase 82 U/L [facility] Medical Decision Making Medical Screen Exam Complete: Yes Emergency Medical Condition: Yes Differential Diagnosis AIDs related diarrhea versus C difficile diarrhea versus dehydration versus metabolic derangement versus other Narrative Course 52-year-old female with PMH of AIDS, on hospice presents to the ED for evaluation of watery stools 3 or 4 days. She endorses cramping abdominal pain across the mid abdomen, rated 8/10. Also complains of chronic wound of the buttocks. Patient states that she has hospice care. Vitals reviewed. On exam the patient is well granulated and without signs of infection. There is tenderness to palpation across the mid abdomen. Guaiac negative on rectal exam. She does produce a small stool that is pending for stool studies. IV was established. Patient was administered 2 L normal saline, 4 mg morphine, 4 mg Zofran. On recheck she reports improvement of her symptoms. CBC: W BC 12.3. Hemoglobin 9.7. Anemia is chronic and improved from last visit. INR 1.3. CMP: BUN 11, creatinine 0.99. Albumin 1.9. Lipase 82. Lactic acid 3.0, improved to 2.3 on recheck after 2 L IVF. Hospice nurse comes to bedside. We discussed the goals and plan of care with the patient. She is agreeable to antibiotics, antidiarrheals and return home for continued hospice care. She is stable and discharged home. [facility] Point of Care Internal Pos. & Neg. Controls: Passed Fecal Specimen Occult Blood: Negative Diagnosis Primary Impression: AIDS-associated secretory diarrhea Referrals: [facility]Other Pt SpecificInfo: Prescription(s) given Scripts Loperamide (Imodium A-D) 2 Mg Capsule 2 MG PO DIRECTED Y for DIARRHEA, #10 CAP 0 Refills One capsule after each loose stool. Not to exceed 8 tablets per day. Prov: Eitan Cohen MD 10/30/17 Metronidazole (Flagyl) 500 Mg Tab 500 MG PO TID for Infection for 14 Days, TAB 0 Refills Prov: Eitan Cohen MD 10/30/17 Disposition: 01 DISCHARGE HOME Condition: Stable Enid Miner Oct 30, 2017 12:01
[2017-10-30 12:22] LABS: BASOPHIL # 0.1 TH/MM3 (0-0.2); BASOPHIL % 0.6 % (0.0-2.0); HEMATOCRIT 28.6 % (35.0-46.0); HEMOGLOBIN 9.7 GM/DL (11.6-15.3); LYMPH % 5.6 % (9.0-44.0); LYMPHOCYTE # 0.7 TH/MM3 (1.0-4.8); MEAN CELL VOLUME 96.9 FL (80.0-100.0); MEAN CORPUSCULAR HEMOGLOBIN 32.9 PG (27.0-34.0); MONO % 4.9 % (0.0-8.0); MONOCYTE # 0.6 TH/MM3 (0-0.9); NEUT % 88.9 % (16.0-70.0); PLATELET COUNT 200 TH/MM3 (150-450); RED BLOOD COUNT 2.95 MIL/MM3 (4.00-5.30); RED CELL DISTRIBUTION WIDTH 17.2 % (11.6-17.2); WHITE BLOOD COUNT 12.3 TH/MM3 (4.0-11.0)
[2017-10-30 12:38] LABS: INTERNATIONAL NORMALIZED RATIO 1.3 RATIO; PROTHROMBIN TIME - PATIENT 12.9 SEC (9.8-11.6)
[2017-10-30] MEDS ORDERED: SODIUM CHLOR 0.9% 1000 ML INJ 1,000 ML IV ONE (12:45)
[2017-10-30] MEDS ORDERED: ONDANSETRON HCL 4 MG/2 ML VIAL IV PUSH ONE (12:45)
[2017-10-30] MEDS ORDERED: MORPHINE SULFATE 2 MG/ML SYRINGE IV PUSH ONE (12:45)
[2017-10-30 13:15] LABS: ALT (GPT) 13 U/L (10-53)
[2017-10-30 13:18] LABS: ALKALINE PHOSPHATASE 170 U/L (45-117); TOTAL BILIRUBIN ADULT 0.7 MG/DL (0.2-1.0); TOTAL PROTEIN 9.3 GM/DL (6.4-8.2)
[2017-10-30 13:20] LABS: ALBUMIN 1.9 GM/DL (3.4-5.0); AST (GOT) 41 U/L (15-37); BICARBONATE 22.8 MEQ/L (21.0-32.0); BLOOD UREA NITROGEN 11 MG/DL (7-18); CHLORIDE 103 MEQ/L (98-107); CREATININE 0.99 MG/DL (0.50-1.00); GLOMERULAR FILTRATION RATE 71 ML/MIN (>89); GLUCOSE,RANDOM 77 MG/DL (74-106); SODIUM (NA) 135 MEQ/L (136-145)
[2017-10-30] MEDS ORDERED: METR-1 PO (13:26)
[2017-10-30] MEDS ORDERED: LOPE-1 PO (13:26)
[2017-10-30 13:36] VITALS: O2SAT 97
--- NOTE | 2017-10-30 16:24 | PD ---
Data Data Last Documented VS Vital Signs Date Time Temp Pulse Resp B/P (MAP) Pulse Ox O2 Delivery O2 Flow Rate FiO2 10/30/17 13:36 97 Room Air 10/30/17 10:22 97.8 79 18 108/59 (75) Orders Orders Complete Blood Count With Diff (10/30/17 11:44) Comprehensive Metabolic Panel (10/30/17 11:44) Lipase (10/30/17 11:44) Lactic Acid (10/30/17 11:44) Prothrombin Time / Inr (Pt) (10/30/17 11:44) Act Partial Throm Time (Ptt) (10/30/17 11:44) Urinalysis - C+S If Indicated (10/30/17 11:44) Iv Access Insert/Monitor (10/30/17 11:44) Ecg Monitoring (10/30/17 11:44) Oximetry (10/30/17 11:44) Sodium Chlor 0.9% 1000 Ml Inj (Ns 1000 M (10/30/17 11:44) Sodium Chloride 0.9% Flush (Ns Flush) (10/30/17 11:45) Stool Ova And Parasite Screen (10/30/17 11:44) Enteric Path (Stool) (10/30/17 11:44) C Diff Toxin Pcr (10/30/17 11:44) Ondansetron Inj (Zofran Inj) (10/30/17 12:45) Morphine Inj (Morphine Inj) (10/30/17 12:45) Sodium Chlor 0.9% 1000 Ml Inj (Ns 1000 M (10/30/17 12:45) Lactic Acid (10/30/17 12:44) Labs Laboratory Tests Test 10/30/17 11:55 10/30/17 15:30 White Blood Count 12.3 TH/MM3 Red Blood Count 2.95 MIL/MM3 Hemoglobin 9.7 GM/DL Hematocrit 28.6 % Mean Corpuscular Volume 96.9 FL Mean Corpuscular Hemoglobin 32.9 PG Mean Corpuscular Hemoglobin Concent 34.0 % Red Cell Distribution Width 17.2 % Platelet Count 200 TH/MM3 Mean Platelet Volume 9.0 FL Neutrophils (%) (Auto) 88.9 % Lymphocytes (%) (Auto) 5.6 % Monocytes (%) (Auto) 4.9 % Eosinophils (%) (Auto) 0.0 % Basophils (%) (Auto) 0.6 % Neutrophils # (Auto) 11.0 TH/MM3 Lymphocytes # (Auto) 0.7 TH/MM3 Monocytes # (Auto) 0.6 TH/MM3 Eosinophils # (Auto) 0.0 TH/MM3 Basophils # (Auto) 0.1 TH/MM3 CBC Comment DIFF FINAL Differential Comment Prothrombin Time 12.9 SEC Prothromb Time International Ratio 1.3 RATIO Activated Partial Thromboplast Time 28.5 SEC Blood Urea Nitrogen 11 MG/DL Creatinine 0.99 MG/DL Random Glucose 77 MG/DL Total Protein 9.3 GM/DL Albumin 1.9 GM/DL Calcium Level 8.0 MG/DL Alkaline Phosphatase 170 U/L Aspartate Amino Transf (AST/SGOT) 41 U/L Alanine Aminotransferase (ALT/SGPT) 13 U/L Total Bilirubin 0.7 MG/DL Sodium Level 135 MEQ/L Potassium Level 4.1 MEQ/L Chloride Level 103 MEQ/L Carbon Dioxide Level 22.8 MEQ/L Anion Gap 9 MEQ/L Estimat Glomerular Filtration Rate 71 ML/MIN Lactic Acid Level 3.0 mmol/L 2.3 mmol/L Lipase 82 U/L MDM Supervised Visit with FOREIGN: Yes Narrative Course 52-year-old woman with HIV and AIDS, persistent diarrhea, on hospice, spoke with hospice, [facility] but she declines. She looks generally well. Her and family are comfortable with discharge home. We will continue medications. Diagnosis Primary Impression: AIDS-associated secretory diarrhea Additional Instruction: Follow-up with her hospice doctor. Take medications as needed for comfort. Return to the emergency department for any new or worsening symptoms. Med/Other Pt SpecificInfo: Prescription(s) given Scripts Loperamide (Imodium A-D) 2 Mg Capsule 2 MG PO DIRECTED Y for DIARRHEA, #10 CAP 0 Refills One capsule after each loose stool. Not to exceed 8 tablets per day. Prov: Eitan Cohen MD 10/30/17 Metronidazole (Flagyl) 500 Mg Tab 500 MG PO TID for Infection for 14 Days, TAB 0 Refills Prov: Eitan Cohen MD 10/30/17 Disposition: 01 DISCHARGE HOME Condition: Stable Eitan Cohen MD Oct 30, 2017 16:24
== END 2017-10-30 16:34 | disposition home or self-care (01) ==
LOC: NEPE 10:12
DX: B20 Human immunodeficiency virus [HIV] disease (principal)
CPT/HCPCS: 80053; 83605; 83690; 85025; 85610; 85730; 96361; 96374; 96375; 99284; J2270; J2405; J7030